=== PATIENT | female | born 1995 | race Hispanic/Latino ===

== ENCOUNTER 2017-12-03 22:11 | Emergency (ER) | payer OTHER, SELFPAY ==
--- OUTSIDE RECORDS SUMMARY | 2017-12-03 22:13 | XMS REPORT | Clinical Summary ---
:1995 Author Organization [facility] Address [address] [place] [address] Care Team Providers Name Role Phone Asked, No Pcp Primary Care Provider Unavailable Allergies Active Allergy Reactions Severity Noted Date Comments Tramadol Other (See Comments) 03/11/2016 headache Acetaminophen-Codeine Shortness Of Breath High 03/11/2016 Current Medications Prescription Sig. Disp. Refills Start Date End Date Status SUMAtriptan (IMITREX) Take 1 tablet (50 9 tablet 0 03/15/2016 Active 50 MG tablet mg total) by mouth once as needed for migraine for up to 20 doses. NEXPLANON 68 mg implant 04/13/2016 Active traZODone (DESYREL) 50 04/13/2016 Active MG tablet keTOROlac (TORadol) 10 Take 1 tablet (10 9 tablet 0 05/10/2017 Active mg tablet mg total) by mouth every 6 (six) hours as needed for moderate pain (do not take with other NSAID) for up to 10 doses. 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 MANAGER Pulse 122 05/10/2017 2:22 PM HIMS MANAGER Temperature 36.4 C (97.5 F) 05/10/2017 2:22 PM HIMS MANAGER Respiratory Rate 17 05/10/2017 2:22 PM HIMS MANAGER Oxygen Saturation 100% 05/10/2017 2:22 PM HIMS MANAGER Inhaled Oxygen Concentration - - Weight - - Height 162.6 cm (5' 4") 05/10/2017 12:20 PM HIMS MANAGER Body Mass Index - - Plan of Treatment Not on file Results Not on fileafter 12/02/2016 Insurance Payer Benefit Plan / Group Subscriber ID Type Phone Address MEDICAID MEDICAID xxxxxxxxx Medicaid [facility] CHOICE [facility] xxxxxxxxx HMO CIGNA CIGNA OPEN xxxxxxxxxxx HMO ACCESS/NETWORK y [phone] [place] [id number]
[2017-12-03 23:48] LABS: Urine Blood TRACE (NEG); Urine Glucose NEGATIVE (NEG); Urine Protein NEGATIVE (NEG); Urine Specific Gravity 1.015 (1.005-1.030); Urine pH 7.5 (5.0-7.0)
[2017-12-04 00:36] LABS: Urine Bacteria <20 /HPF (<20); Urine Culture Reflex Order NOT NEEDED; Urine RBC <5 /HPF (NONE SEEN)
--- NOTE | 2017-12-04 00:41 | ER ---
Nurse's Notes [facility] Name: Carla Duncan Age: 22 yrs Sex: Female : 1995 Arrival Date: 12/03/2017 Time: 22:12 Bed 25 Private MD: Diagnosis: Low back pain;Dysuria Presentation: 12/03 22:35 Presenting complaint: Patient states: that she was told that she had a UTI 2 weeks ago and was given Nitrofurantoin. Continues to have urinary frequency and burning. Transition of care: patient was not received from another setting of care. Onset of symptoms was October 2017. Risk Assessment: Do you want to hurt yourself or someone else?. Initial Sepsis Screen: Does the patient meet any 2 criteria? No. Patient's initial sepsis screen is negative. Does the patient have a suspected source of infection? No. Patient's initial sepsis screen is negative. Care prior to arrival: None. 22:35 Method Of Arrival: Ambulatory fc 22:35 Acuity: VENKATESH 4 Triage Assessment: 22:38 General: Appears uncomfortable, Behavior is calm, cooperative, appropriate for age. fc Pain: Complains of pain in suprapubic area Pain currently is 5 out of 10 on a pain scale. at worst was 10 out of 10 on a pain scale. Quality of pain is described as burning, stinging, Is intermittent. EENT: No deficits noted. Neuro: Level of Consciousness is awake, alert, obeys commands, Oriented to person, place, time, situation. Cardiovascular: No deficits noted. Respiratory: No deficits noted. GI: No deficits noted. : Reports burning with urination, urinary frequency. Derm: Skin is pink, warm \T\ dry. Musculoskeletal: Circulation, motion, and sensation intact. Capillary refill < 3 seconds, Range of motion: intact in all extremities. 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 - Social history:: Smoking status: Patient/guardian denies using tobacco. - Ebola Screening: : Patient negative for fever greater than or equal to 101.5 degrees Fahrenheit, and additional compatible Ebola Virus Disease symptoms Patient denies exposure to infectious person Patient denies travel to an Ebola-affected area in the 21 days before illness onset. - Family history:: not pertinent. - Hospitalizations: : No recent hospitalization is reported. Screenin:32 Abuse screen: Denies threats or abuse. Nutritional screening: No deficits noted. tl3 Tuberculosis screening: No symptoms or risk factors identified. Fall Risk None identified. Assessment: 23:29 General: Appears in no apparent distress. comfortable, well groomed, well developed, tl3 well nourished, Behavior is calm, cooperative, appropriate for age. Pain: Denies pain. Neuro: Level of Consciousness is awake, alert, obeys commands, Oriented to person, place, time, situation, Appropriate for age. Cardiovascular: Heart tones S1 S2 present Patient's skin is warm and dry. Respiratory: Airway is patent Respiratory effort is even, unlabored, Respiratory pattern is regular, symmetrical. GI: No deficits noted. No signs and/or symptoms were reported involving the gastrointestinal system. : Reports incontinence, since Wednesday urinary frequency. : Reports Dx with UTI two weeks ago, did not tolerate side effects of antibiotic and stopped taking it for a few days then restarted it until completed. S/S are now worse. EENT: No deficits noted. No signs and/or symptoms were reported regarding the EENT system. Derm: No deficits noted. No signs and/or symptoms reported regarding the dermatologic system. Musculoskeletal: No deficits noted. No signs and/or symptoms reported regarding the musculoskeletal system. 12/04 00:06 Reassessment: Patient appears in no apparent distress at this time. No changes from tl3 previously documented assessment. Patient and/or family updated on plan of care and expected duration. Pain level reassessed. Patient is alert, oriented x 3, equal unlabored respirations, skin warm/dry/pink. pt has no needs at this time. 00:56 Reassessment: Patient appears in no apparent distress at this time. No changes from tl3 previously documented assessment. Patient and/or family updated on plan of care and expected duration. Pain level reassessed. Patient is alert, oriented x 3, equal unlabored respirations, skin warm/dry/pink. Vital Signs: 12/03 22:38 BP 108 / 78; Pulse 89; Resp 20; Temp 98.0(O); Pulse Ox 100% on R/A; Weight 81.65 kg fc (R); Height 5 ft. 0 in. (152.40 cm) (R); Pain 5/10; 23:33 BP 121 / 50; Pulse 91; Resp 18; Pulse Ox 100% ; tl3 12/04 00:06 BP 144 / 94; Pulse 99; Resp 18; Pulse Ox 100% ; tl3 00:56 BP 108 / 60; Pulse 87; Resp 18; Pulse Ox 98% ; tl3 12/03 22:38 Body Mass Index 35.15 (81.65 kg, 152.40 cm) ED Course: 12/03 22:12 Patient arrived in ED. ds1 22:36 Triage completed. fc 22:37 Arm band placed on Patient placed in waiting room, Patient notified of wait time. fc 23:10 Hal Watters MD is Attending Physician. rn 23:15 Elle Felder RN is Primary Nurse. tl3 23:32 Patient has correct armband on for positive identification. tl3 23:32 No provider procedures requiring assistance completed. Patient did not have IV access tl3 during this emergency room visit. Administered Medications: No medications were administered Outcome: 12/04 00:40 Discharge ordered by . rn 00:57 Patient left the ED. tl3 Signatures: Marnie Reynaga RN RN MccloudIzzy ds1 Hal Watters MD MD rn Lowrey, Tammy, RN RN tl3
--- NOTE | 2017-12-04 00:41 | EDPHYS ---
Physician Documentation [facility] Name: Carla Duncan Age: 22 yrs Sex: Female : 1995 Arrival Date: 12/03/2017 Time: 22:12 Bed 25 Private MD: ED Physician Hal Watters HPI: 12/04 00:38 This 22 yrs old Female presents to ER via Ambulatory with complaints of Back rn Pain, Pain With Urination. 00:38 The patient presents with pain that is acute. The symptoms are located in the low back. rn Onset: The symptoms/episode began/occurred 1 week(s) ago. Associated signs and symptoms: Pertinent positives: dysuria, Pertinent negatives: fever. Severity of symptoms: At their worst the symptoms were mild, in the emergency department the symptoms are unchanged. The patient has experienced a previous episode. Reports low back pain, increased urination, no bleeding or vaginal discharge, no abd pain, reports diagnosed with UTI by her OB, given shot and macrobid, didn't take it as prescribed because made her sick, finally finished it a few days ago.. 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 - Social history:: Smoking status: Patient/guardian denies using tobacco. - Ebola Screening: : Patient negative for fever greater than or equal to 101.5 degrees Fahrenheit, and additional compatible Ebola Virus Disease symptoms Patient denies exposure to infectious person Patient denies travel to an Ebola-affected area in the 21 days before illness onset. - Family history:: not pertinent. - Hospitalizations: : No recent hospitalization is reported. ROS: 12/04 00:38 Constitutional: Negative for fever, chills, and weight loss, Eyes: Negative for injury, rn pain, redness, and discharge, Neck: Negative for injury, pain, and swelling, Cardiovascular: Negative for chest pain, palpitations, and edema, Respiratory: Negative for shortness of breath, cough, wheezing, and pleuritic chest pain, Abdomen/GI: Negative for abdominal pain, nausea, vomiting, diarrhea, and constipation, Back: Negative for injury MS/Extremity: Negative for injury and deformity, Skin: Negative for injury, rash, and discoloration, Neuro: Negative for headache, weakness, numbness, tingling, and seizure. Exam: 00:38 Constitutional: This is a well developed, well nourished patient who is awake, alert, rn and in no acute distress. Abdomen/GI: Soft, non-tender, with normal bowel sounds. No distension or tympany. No guarding or rebound. No evidence of tenderness throughout. Back: No spinal tenderness. No costovertebral tenderness. Full range of motion. Skin: Warm, dry with normal turgor. Normal color with no rashes, no lesions, and no evidence of cellulitis. MS/ Extremity: Pulses equal, no cyanosis. Neurovascular intact. Full, normal range of motion. Equal circumference. Neuro: Awake and alert, GCS 15, oriented to person, place, time, and situation. Cranial nerves II-XII grossly intact. Motor strength 5/5 in all extremities. Sensory grossly intact. Cerebellar exam normal. Normal gait. Vital Signs: 12/03 22:38 BP 108 / 78; Pulse 89; Resp 20; Temp 98.0(O); Pulse Ox 100% on R/A; Weight 81.65 kg fc (R); Height 5 ft. 0 in. (152.40 cm) (R); Pain 5/10; 23:33 BP 121 / 50; Pulse 91; Resp 18; Pulse Ox 100% ; tl3 12/04 00:06 BP 144 / 94; Pulse 99; Resp 18; Pulse Ox 100% ; tl3 00:56 BP 108 / 60; Pulse 87; Resp 18; Pulse Ox 98% ; tl3 12/03 22:38 Body Mass Index 35.15 (81.65 kg, 152.40 cm) fc MDM: 12/03 23:11 Patient medically screened. rn 12/04 00:38 Differential diagnosis: arthritis, UTI, . Data reviewed: vital signs, nurses rn notes, lab test result(s), and as a result, I will discharge patient. Counseling: I had a detailed discussion with the patient and/or guardian regarding: the historical points, exam findings, and any diagnostic results supporting the discharge/admit diagnosis, lab results, the need for outpatient follow up, to return to the emergency department if symptoms worsen or persist or if there are any questions or concerns that arise at home. Special discussion: I discussed with the patient/guardian in detail that at this point there is no indication for admission to the hospital. It is understood, however, that if the symptoms persist or worsen the patient needs to return immediately for re-evaluation. Based on the history and exam findings, there is no indication for further emergent testing or inpatient evaluation. I discussed with the patient/guardian the need to see the OB Gyne specialist for further evaluation of the symptoms. 12/03 23:19 Order name: Urine Microscopic Only; Complete Time: 00:37 rn 12/03 23:27 Order name: Urine Dipstick--Ancillary (enter results); Complete Time: 00:37 rg2 12/03 23:19 Order name: Urine Dipstick-Ancillary (obtain specimen); Complete Time: 23:23 rn 12/03 23:19 Order name: Urine Test (obtain specimen); Complete Time: 23:23 rn 12/03 23:27 Order name: Urine --Ancillary (enter results); Complete Time: 00:37 rg2 Administered Medications: No medications were administered Disposition: 12/04/17 00:40 Discharged to Home. Impression: Low back pain, Dysuria. - Condition is Stable. - Discharge Instructions: Back Pain, Adult, Dysuria, Back Pain in . - Medication Reconciliation Form, Thank You Letter, Antibiotic Education, Prescription Opioid Use form. - Follow up: Private Physician; When: As needed; Reason: Recheck today's complaints, Re-evaluation by your physician. - Problem is an ongoing problem. - Symptoms have improved. Signatures: Dispatcher [employer] EDMS Marnie Reynaga RN RN fc Nieto, Roman, MD MD rn Lowrey, Tammy, RN RN tl3 Corrections: (The following items were deleted from the chart) 00:57 00:40 12/04/2017 00:40 Discharged to Home. Impression: Low back pain; Dysuria. tl3 Condition is Stable. Forms are Medication Reconciliation Form, Thank You Letter, Antibiotic Education, Prescription Opioid Use. Follow up: Private Physician; When: As needed; Reason: Recheck today's complaints, Re-evaluation by your physician. Problem is an ongoing problem. Symptoms have improved. rn
[2017-12-04 01:59] VITALS: TEMP 98
[2017-12-04 02:02] VITALS: BP 108/60; O2SAT 98
== END 2017-12-04 00:57 | disposition home or self-care (01) ==
LOC: ER 22:11
DX: M54.5 Low back pain (principal); R30.0 Dysuria; Z88.6 Allergy status to analgesic agent; Z88.8 Allergy status to other drugs, medicaments and biological substances
CPT/HCPCS: 81003; 81015; 81025; 99281

== ENCOUNTER 2017-12-09 13:04 | Emergency (ER) | payer OTHER ==
--- OUTSIDE RECORDS SUMMARY | 2017-12-09 13:06 | XMS REPORT | Clinical Summary ---
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 Pulse 122 05/10/2017 2:22 PM GAS PUMPING STATION SUPERVISOR Temperature 36.4 C (97.5 F) 05/10/2017 2:22 PM GAS PUMPING STATION SUPERVISOR Respiratory Rate 17 05/10/2017 2:22 PM GAS PUMPING STATION SUPERVISOR Oxygen Saturation 100% 05/10/2017 2:22 PM GAS PUMPING STATION SUPERVISOR Inhaled Oxygen Concentration - - Weight - - Height 162.6 cm (5' 4") 05/10/2017 12:20 PM GAS PUMPING STATION SUPERVISOR Body Mass Index - - Plan of Treatment Not on file Results Not on fileafter 12/08/2016 Insurance Payer Benefit Plan / Group Subscriber ID Type Phone Address MEDICAID MEDICAID xxxxxxxxx Medicaid [facility] Money Dashboard [facility] xxxxxxxxx HMO CIGNA CIGNA OPEN xxxxxxxxxxx HMO ACCESS/NETWORK y [phone] [place] [id number]
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
[2017-12-09 15:34] VITALS: TEMP 98.8
[2017-12-09 15:35] VITALS: O2SAT 100
[2017-12-09 15:36] VITALS: BP 117/71
== END 2017-12-09 15:31 | disposition home or self-care (01) ==
LOC: ER 13:04
DX: S29.012A Strain of muscle and tendon of back wall of thorax, initial encounter (principal); V49.40XA Driver injured in collision with unspecified motor vehicles in traffic accident, initial encounter; Y92.410 Unspecified street and highway as the place of occurrence of the external cause; Z33.1 Pregnant state, incidental
CPT/HCPCS: 71046; 72070; 99284

== ENCOUNTER 2018-01-16 20:47 | Emergency (ER) | payer OTHER ==
--- OUTSIDE RECORDS SUMMARY | 2018-01-16 20:49 | XMS REPORT | Clinical Summary ---
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 Pulse 122 05/10/2017 2:22 PM PLATFORM ATTENDANT Temperature 36.4 C (97.5 F) 05/10/2017 2:22 PM PLATFORM ATTENDANT Respiratory Rate 17 05/10/2017 2:22 PM PLATFORM ATTENDANT Oxygen Saturation 100% 05/10/2017 2:22 PM PLATFORM ATTENDANT Inhaled Oxygen Concentration - - Weight - - Height 162.6 cm (5' 4") 05/10/2017 12:20 PM PLATFORM ATTENDANT Body Mass Index - - Plan of Treatment Not on file Results Not on fileafter 01/15/2017 Insurance Payer Benefit Plan / Group Subscriber ID Type Phone Address MEDICAID MEDICAID xxxxxxxxx Medicaid COMMUNITY HEALTH CHOICE COM [facility] xxxxxxxxx HMO CIGNA CIGNA OPEN xxxxxxxxxxx HMO ACCESS/NETWORK y [phone] [place] [id number]
[2018-01-16 21:43] LABS: Urine Blood 1+ (NEG); Urine Glucose NEGATIVE (NEG); Urine Protein NEGATIVE (NEG); Urine Specific Gravity 1.015 (1.005-1.030); Urine pH 5.5 (5.0-7.0)
[2018-01-16] MEDS ORDERED: NA CHLORIDE 0.9% 1,000 ML ONE (21:54)
[2018-01-16 21:55] LABS: Urine Bacteria <20 /HPF (<20); Urine Culture Reflex Order NOT NEEDED
--- NOTE | 2018-01-16 23:24 | ER ---
Nurse's Notes [facility] Name: Carla Duncan Age: 22 yrs Sex: Female : 1995 Arrival Date: 01/16/2018 Time: 20:52 Bed 30 Private MD: Diagnosis: Other specified related conditions;Abdominal and pelvic pain Presentation: 01/16 21:05 Presenting complaint: Patient states: Lower abdominal cramping with no vaginal aj discharge that started today. Transition of care: patient was not received from another setting of care. Onset of symptoms was January 16, 2018. Risk Assessment: Do you want to hurt yourself or someone else? Patient reports no desire to harm self or others. Initial Sepsis Screen: Does the patient meet any 2 criteria? No. Patient's initial sepsis screen is negative. Does the patient have a suspected source of infection? No. Patient's initial sepsis screen is negative. Care prior to arrival: None. 21:05 Method Of Arrival: Ambulatory aj 21:05 Acuity: VENKATESH 3 aj Triage Assessment: 21:06 General: Appears in no apparent distress. comfortable, Behavior is calm, cooperative, aj appropriate for age. Pain: Complains of pain in right lower quadrant and left lower quadrant. Neuro: Level of Consciousness is awake, alert, obeys commands, Oriented to person, place, time, situation, Appropriate for age. Respiratory: Airway is patent Respiratory effort is even, unlabored, Respiratory pattern is regular, symmetrical. GI: Abdomen is round non-distended. : Reports cramping, lower quadrant(s). Derm: Skin is intact, is healthy with good turgor, Skin is pink, warm \T\ dry. normal. 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 - Social history:: Smoking status: Patient/guardian denies using tobacco. - Ebola Screening: : Patient negative for fever greater than or equal to 101.5 degrees Fahrenheit, and additional compatible Ebola Virus Disease symptoms Patient denies exposure to infectious person Patient denies travel to an Ebola-affected area in the 21 days before illness onset No symptoms or risks identified at this time. Screenin:41 Abuse screen: Denies threats or abuse. Denies injuries from another. Nutritional mg2 screening: No deficits noted. Tuberculosis screening: No symptoms or risk factors identified. Fall Risk None identified. Assessment: 21:39 General: Appears in no apparent distress. comfortable, Behavior is calm, cooperative. mg2 Pain: Complains of pain in abdomen and left lower quadrant and right lower quadrant Pain does not radiate. Pain currently is 4 out of 10 on a pain scale. Quality of pain is described as crampy, Pain began gradually, 1 day ago. Is intermittent, Alleviated by rest, Aggravated by increased activity. Neuro: Level of Consciousness is awake, alert, obeys commands, Oriented to person, place, time, situation. Cardiovascular: Capillary refill < 3 seconds Patient's skin is warm and dry. Respiratory: Airway is patent Respiratory effort is even, unlabored, Respiratory pattern is regular, symmetrical. GI: Reports lower abdominal pain, cramping. : Reports cramping, in bilateral. EENT: No signs and/or symptoms were reported regarding the EENT system. Derm: Skin is intact, Skin is pink, warm \T\ dry. normal. Musculoskeletal: Circulation, motion, and sensation intact. 22:42 Reassessment: Patient appears in no apparent distress at this time. Patient and/or mg2 family updated on plan of care and expected duration. Pain level reassessed. Patient is alert, oriented x 3, equal unlabored respirations, skin warm/dry/pink. 23:06 GI: Bowel sounds present X 4 quads. Abd is non tender X 4 quads. mg2 Vital Signs: 21:06 BP 124 / 78; Pulse 95; Resp 17; Temp 98.0; Pulse Ox 100% on R/A; Weight 79.38 kg; aj Height 5 ft. 0 in. (152.40 cm); 21:44 BP 123 / 70; Pulse 94; Resp 18; Pulse Ox 100% on R/A; Pain 3/10; mg2 22:42 BP 129 / 75; Pulse 90; Resp 18; Pulse Ox 100% on R/A; Pain 2/10; mg2 21:06 Body Mass Index 34.18 (79.38 kg, 152.40 cm) ED Course: 20:52 Patient arrived in ED. do 21:06 Triage completed. aj 21:06 Arm band placed on left wrist. Patient placed in an exam room. aj 21:31 Austen Perez, RN is Primary Nurse. mg2 21:33 Austin Gaona MD is Attending Physician. 21:42 Patient has correct armband on for positive identification. Placed in gown. Bed in low mg2 position. Side rails up X 1. Door closed. Warm blanket given. 21:58 Inserted saline lock: 22 gauge in right antecubital area, using aseptic technique. mg2 22:27 US OB Complete In Process Unspecified. EDMS 22:27 Ultrasound completed. Patient tolerated well. sg3 23:07 No provider procedures requiring assistance completed. mg2 23:33 IV discontinued, intact, bleeding controlled, No redness/swelling at site. Pressure mg2 dressing applied. Administered Medications: 21:58 Drug: NS 0.9% 1000 ml Route: IV; Rate: 1 bolus; Site: right antecubital; mg2 23:06 Follow up: Response: No adverse reaction; IV Status: Completed infusion mg2 Outcome: 23:23 Discharge ordered by . gs 23:33 Discharged to home ambulatory. mg2 23:33 Condition: stable 23:33 Discharge instructions given to patient, Instructed on discharge instructions, follow up and referral plans. Demonstrated understanding of instructions, follow-up care. 23:34 Patient left the ED. mg2 Signatures: Dispatcher [employer] Leigh Ann Kim RN RN Jasmyne Cardona Gregory, MD MD Carla Dunne 3 Austen Perez, JUDI RN mg2
--- NOTE | 2018-01-16 23:24 | EDPHYS ---
Physician Documentation [facility] Name: Carla Duncan Age: 22 yrs Sex: Female : 1995 Arrival Date: 01/16/2018 Time: 20:52 Bed 30 Private MD: ED Physician Austin Gaona HPI: 01/16 23:17 This 22 yrs old Female presents to ER via Ambulatory with complaints of gs Abdominal Pain, 13 Weeks. 23:17 The patient presents to the emergency department with abdominal pain, of the suprapubic gs area, that started this morning, described as crampy. The estimated gestational age is 12 weeks. course: care: at a clinic, Leakage of Fluid: none appreciated, Ultrasound: the patient had an ultrasound, which was normal. Previous pregnancies: in previous pregnancies patient has had no complications. Associated signs and symptoms: Pertinent negatives: fever, vomiting. The patient has experienced similar episodes in the past, a few times. 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 - Social history:: Smoking status: Patient/guardian denies using tobacco. - Ebola Screening: : Patient negative for fever greater than or equal to 101.5 degrees Fahrenheit, and additional compatible Ebola Virus Disease symptoms Patient denies exposure to infectious person Patient denies travel to an Ebola-affected area in the 21 days before illness onset No symptoms or risks identified at this time. ROS: 23:17 All other systems are negative. gs 23:24 : Negative for vaginal bleeding, vaginal discharge, vaginal itching. gs Exam: 23:17 Head/Face: Normocephalic, atraumatic. Eyes: Pupils equal round and reactive to light, gs extra-ocular motions intact. Lids and lashes normal. Conjunctiva and sclera are non-icteric and not injected. Cornea within normal limits. Periorbital areas with no swelling, redness, or edema. ENT: Nares patent. No nasal discharge, no septal abnormalities noted. Tympanic membranes are normal and external auditory canals are clear. Oropharynx with no redness, swelling, or masses, exudates, or evidence of obstruction, uvula midline. Mucous membranes moist. Neck: Trachea midline, no thyromegaly or masses palpated, and no cervical lymphadenopathy. Supple, full range of motion without nuchal rigidity, or vertebral point tenderness. No Meningismus. Chest/axilla: Normal chest wall appearance and motion. Nontender with no deformity. No lesions are appreciated. Cardiovascular: Regular rate and rhythm with a normal S1 and S2. No gallops, murmurs, or rubs. Normal PMI, no JVD. No pulse deficits. Respiratory: Lungs have equal breath sounds bilaterally, clear to auscultation and percussion. No rales, rhonchi or wheezes noted. No increased work of breathing, no retractions or nasal flaring. Back: No spinal tenderness. No costovertebral tenderness. Full range of motion. Skin: Warm, dry with normal turgor. Normal color with no rashes, no lesions, and no evidence of cellulitis. MS/ Extremity: Pulses equal, no cyanosis. Neurovascular intact. Full, normal range of motion. Neuro: Awake and alert, GCS 15, oriented to person, place, time, and situation. Cranial nerves II-XII grossly intact. Motor strength 5/5 in all extremities. Sensory grossly intact. Cerebellar exam normal. Normal gait. 23:17 Constitutional: The patient appears alert, awake. 23:17 Abdomen/GI: Inspection: gravid appearance, is noted, Palpation: nontender, in all quadrants. Vital Signs: 21:06 BP 124 / 78; Pulse 95; Resp 17; Temp 98.0; Pulse Ox 100% on R/A; Weight 79.38 kg; aj Height 5 ft. 0 in. (152.40 cm); 21:44 BP 123 / 70; Pulse 94; Resp 18; Pulse Ox 100% on R/A; Pain 3/10; mg2 22:42 BP 129 / 75; Pulse 90; Resp 18; Pulse Ox 100% on R/A; Pain 2/10; mg2 21:06 Body Mass Index 34.18 (79.38 kg, 152.40 cm) aj MDM: 21:49 Patient medically screened. gs 23:17 Differential diagnosis: Javid inman, threatened Ab, inevitable Ab. Data reviewed: vital signs, nurses notes. Response to treatment: the patient's symptoms have markedly improved after treatment, the patient is now symptom free, and as a result, I will discharge patient. 01/16 21:39 Order name: Urine Microscopic Only; Complete Time: 22:09 01/16 21:41 Order name: Urine Dipstick--Ancillary (enter results); Complete Time: 21:48 [facility] 01/16 21:39 Order name: Urine Test (obtain specimen); Complete Time: 21:46 01/16 21:41 Order name: Urine --Ancillary (enter results); Complete Time: 21:48 [facility] 01/16 21:49 Order name: US OB Complete 01/16 21:39 Order name: Urine Dipstick-Ancillary (obtain specimen); Complete Time: 21:46 Administered Medications: 21:58 Drug: NS 0.9% 1000 ml Route: IV; Rate: 1 bolus; Site: right antecubital; mg2 23:06 Follow up: Response: No adverse reaction; IV Status: Completed infusion mg2 Disposition: 01/16/18 23:23 Discharged to Home. Impression: Other specified related conditions, Abdominal and pelvic pain. - Condition is Stable. - Discharge Instructions: Abdominal Pain, Adult, [id number], Abdominal Pain During , [id number]. - Medication Reconciliation Form, Thank You Letter, Antibiotic Education, Prescription Opioid Use form. - Follow up: Private Physician; When: 1 - 2 days; Reason: Re-evaluation by your physician. - Problem is new. - Symptoms are resolved. Signatures: Dispatcher [employer] EDLeigh Ann Mason RN RN Austin Aggarwal MD MD Austen Perez RN RN mg2 Corrections: (The following items were deleted from the chart) 23:34 23:23 01/16/2018 23:23 Discharged to Home. Impression: Other specified mg2 related conditions; Abdominal and pelvic pain. Condition is Stable. Forms are Medication Reconciliation Form, Thank You Letter, Antibiotic Education, Prescription Opioid Use. Follow up: Private Physician; When: 1 - 2 days; Reason: Re-evaluation by your physician. Problem is new. Symptoms are resolved.
[2018-01-16 23:37] VITALS: TEMP 98; O2SAT 100
[2018-01-16 23:40] VITALS: BP 129/75
--- NOTE | 2018-01-17 08:50 | RAD REPORT ---
EXAM DESCRIPTION: US - OB Complete - 01/16/2018 10:29 pm CLINICAL HISTORY: ABD CRAMPING, age. COMPARISON: No relevant comparisons FINDINGS: A single cephalic presenting gestation is identified. Heart rate normal. The visualized intracranial contents appear unremarkable. spine is suboptimally visualized due to position. A fluid-filled stomach is not seen, still considered a normal finding at thi s gestational age. kidneys, four-chamber heart, three-vessel cord and urinary bladder are all poorly visualized/assessed due to early gestational age. Anterior abdominal wall of the fetus ap pears intact. measurements are as follows: BPD:2.3 Centimeters 13 weeks 5 days HC:8.2 Centimeters 13 weeks 4 days AC:6.9 Centimeters 13 weeks 4 days HL:1.3 Centimeters 13 weeks 5 days FL:1.2 Centimeters 13 weeks 4 days The estimated gestational age (EGA) is 13 weeks 4 days with an ANDREZ of07/20/2018. The placenta is grade 0, posterior in location. Placenta previa is suspected. The amniotic fluid volume is normal. The maternal adnexa show no worrisome findings. IMPRESSION: 1. Single, cephalic gestation with an EGA of 13 weeks 4 days and an ANDREZ of the 9. 2. anatomic assessment is limited due to early gestational as detailed above. Follow-up anatomi c survey mid second trimester may be considered. 3. Grade 0, posterior placenta. Mild placenta previa noted. This may also be reassessed during the mi d second trimester ultrasound. 4. Amniotic fluid volume is normal.
== END 2018-01-16 23:34 | disposition home or self-care (01) ==
LOC: ER 20:47
DX: R10.2 Pelvic and perineal pain (principal); Z3A.12 12 weeks gestation of pregnancy; Z88.5 Allergy status to narcotic agent; Z88.6 Allergy status to analgesic agent; Z88.8 Allergy status to other drugs, medicaments and biological substances
CPT/HCPCS: 76805; 81003; 81015; 81025; 96360; 99283; J7030

== ENCOUNTER 2018-04-13 16:18 | Emergency (ER) | payer OTHER ==
--- OUTSIDE RECORDS SUMMARY | 2018-04-13 16:23 | XMS REPORT ---
:1995 Author [facility] Address [address] [place] [address] Care Team Providers Name Role Phone Unavailable Unavailable Unavailable Payers Payer Name Policy Type Policy Number Effective Date Expiration Date Problems This patient has no known problems. Allergies, Adverse Reactions, Alerts Allergy Allergy Status Severity Reaction(s) Onset Inactive Treating Comments Name Type Date Date Clinician No Known DA Active U 2013-08 Allergies -14 00:00:0 0 Medications This patient has no known medications.
--- OUTSIDE RECORDS SUMMARY | 2018-04-13 16:23 | XMS REPORT | Clinical Summary ---
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 Temperature 36.4 C (97.5 F) 05/10/2017 2:22 PM 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 Respiratory Rate 17 05/10/2017 2:22 PM 

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
[2018-04-13 18:05] VITALS: TEMP 97.9; O2SAT 100
[2018-04-13 18:06] VITALS: BP 103/55
[2018-04-13 18:09] LABS: Urine Blood NEGATIVE (NEG); Urine Glucose NEGATIVE (NEG); Urine Protein NEGATIVE (NEG); Urine pH 7.5 (5.0-7.0)
== END 2018-04-13 17:50 | disposition home or self-care (01) ==
LOC: ER 16:18
DX: M25.551 Pain in right hip (principal); Z88.5 Allergy status to narcotic agent
CPT/HCPCS: 81003; 81025; 99283

== ENCOUNTER 2018-06-27 09:51 | Emergency (ER) | payer OTHER ==
--- OUTSIDE RECORDS SUMMARY | 2018-06-27 09:53 | XMS REPORT ---
:1995 [facility] Address [address] [place] [address] Care Team Providers Name Role Phone Unavailable [...]
--- OUTSIDE RECORDS SUMMARY | 2018-06-27 09:53 | XMS REPORT | Clinical Summary ---
:1995 Author Organization [facility] Address [address] [place] [address] Care Team Providers Name Role Phone Asked, No Pcp Primary Care Provider Unavailable Allergies Active Allergy Reactions Severity Noted Date Comments Tramadol Other (See Comments) 03/11/2016 headache Acetaminophen-Codeine Shortness Of Breath High 03/11/2016 Medications Medication Sig Dispensed Refills Start Date End Date Status SUMAtriptan (IMITREX) Take 1 tablet (50 9 tablet 0 03/15/2016 Active 50 MG tablet mg total) by mouth once as needed for migraine for up to 20 doses. NEXPLANON 68 mg 0 04/13/2016 Active implant traZODone (DESYREL) 50 0 04/13/2016 Active MG tablet keTOROlac (TORadol) 10 Take 1 tablet (10 9 tablet 0 05/10/2017 Active mg tablet mg total) by mouth every 6 (six) hours as needed for moderate pain (do not take with other NSAID) for up to 10 doses. Active Problems No known active problems Social History Tobacco Use Types Packs/Day Years Used Date Never Smoker Alcohol Use Drinks/Week oz/Week Comments Yes social, weekly Sex Assigned at Date Recorded Not on file Job Start Date Occupation Industry Not on file Not on file Not on file Travel History Travel Start Travel End No recent travel history available. Last Filed Vital Signs Not on file Plan of Treatment Not on file Results Not on fileafter 06/26/2017 Insurance Payer Benefit Plan / Group Subscriber ID Type Phone Address MEDICAID MEDICAID xxxxxxxxx Medicaid [facility] [employer] [facility] xxxxxxxxx HMO CIGNA CIGNA OPEN xxxxxxxxxxx HMO ACCESS/NETWORK Advance Directives Patient has advance care planning documents on file. For more information, please contact:Ravi Delong[address] [place] [address]
--- NOTE | 2018-06-27 11:36 | ER ---
Nurse's Notes [facility] Name: Carla Duncan Age: 22 yrs Sex: Female : 1995 Arrival Date: 06/27/2018 Time: 09:54 Bed 16 Private MD: Diagnosis: Acute pharyngitis Presentation: 06/27 09:57 Presenting complaint: Patient states: i have sore throat and cough that started last hj night, my son is sick with it too for days; reports fever; reports body aches; reports 36 weeks ; reports abd cramps;. Transition of care: patient was not received from another setting of care. Onset of symptoms was June 27, 2018. Risk Assessment: Do you want to hurt yourself or someone else? Patient reports no desire to harm self or others. Initial Sepsis Screen: Does the patient meet any 2 criteria? No. Patient's initial sepsis screen is negative. Does the patient have a suspected source of infection? No. Patient's initial sepsis screen is negative. Care prior to arrival: None. 09:57 Method Of Arrival: Ambulatory 09:57 Acuity: VENKATESH 4 hj Triage Assessment: 10:00 General: Appears in no apparent distress. uncomfortable, Behavior is calm, cooperative, hj appropriate for age. Pain: Complains of pain in throat. EENT: Reports pain in throat. 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 - Social history:: Smoking status: Patient/guardian denies using tobacco, Patient/guardian denies using alcohol. - Ebola Screening: : Patient negative for fever greater than or equal to 101.5 degrees Fahrenheit, and additional compatible Ebola Virus Disease symptoms Patient denies exposure to infectious person Patient denies travel to an Ebola-affected area in the 21 days before illness onset. Screenin:00 Abuse screen: Denies threats or abuse. Denies injuries from another. Nutritional hj screening: No deficits noted. Tuberculosis screening: No symptoms or risk factors identified. Fall Risk None identified. Assessment: 10:00 Respiratory: Airway is patent Respiratory effort is even, unlabored, Respiratory hj pattern is regular, Breath sounds are clear. EENT: Throat. 10:10 General: Appears in no apparent distress. uncomfortable, Behavior is calm, cooperative, jl7 appropriate for age. Pain: Complains of pain in throat. Neuro: Level of Consciousness is awake, alert, obeys commands, Oriented to person, place, time, situation. Cardiovascular: Patient's skin is warm and dry. Respiratory: Airway is patent Respiratory effort is even, unlabored, Respiratory pattern is regular, symmetrical, Breath sounds are clear bilaterally. EENT: Throat is clear is pink. Derm: Skin is pink, warm \T\ dry. 10:20 Reassessment: Pt to L\T\D for assessment. jl7 Vital Signs: 10:01 Pulse 99; Resp 18; Temp 97.6(TE); Pulse Ox 98% on R/A; Weight 91.63 kg; Height 5 ft. 0 hj in. (152.40 cm); Pain 6/10; 10:01 Body Mass Index 39.45 (91.63 kg, 152.40 cm) ED Course: 09:54 Patient arrived in ED. mr 09:59 Triage completed. hj 10:01 Arm band placed on right wrist. hj 10:03 Francie Maynard FNP-C is PHCP. kb 10:03 Jose aLws MD is Attending Physician. kb 10:03 Strep Sent. hj 10:03 Flu Sent. hj 10:06 Kristina Jose, JUDI is Primary Nurse. jl7 10:10 Patient has correct armband on for positive identification. Bed in low position. Call jl7 light in reach. Side rails up X 1. 11:47 No provider procedures requiring assistance completed. Patient did not have IV access jl7 during this emergency room visit. Administered Medications: No medications were administered Outcome: 11:36 Discharge ordered by . kb 11:47 Discharged to home Pt discharged from L\T\D, did not return to ED jl7 11:47 unknown 11:47 Discharge instructions given to Pt discharged from L\T\D 11:48 Patient left the ED. jl7 Signatures: Francie Maynard FNP-C FNP-Kathryn Vásquez mr JemalNaveen, RN RN hj Kristina Jose RN RN jl7 Corrections: (The following items were deleted from the chart) 10:00 09:57 Presenting complaint: Patient states: i have sore throat and cough that started hj last night, my son is sick with it too for days; reports fever; reports body aches; hj
--- NOTE | 2018-06-27 11:36 | EDPHYS ---
Physician Documentation [facility] Name: Carla Duncan Age: 22 yrs Sex: Female : 1995 Arrival Date: 06/27/2018 Time: 09:54 Bed 16 Private MD: ED Physician Jose Laws HPI: 06/27 10:08 This 22 yrs old Female presents to ER via Ambulatory with complaints of Sore kb Throat, Cough. 10:08 The patient presents with sore throat. The patient describes throat pain as constant. kb Onset: The symptoms/episode began/occurred yesterday. Severity of symptoms: At their worst the symptoms were moderate, in the emergency department the symptoms are unchanged. Modifying factors: The symptoms are alleviated by nothing, the symptoms are aggravated by swallowing, Patient's oral intake status: good Denies contact with similarly ill indivduals. Associated signs and symptoms: Pertinent positives: chills, earache, Sore throat. The patient has not experienced similar symptoms in the past, but family has similar symptoms, spouse, son. The patient has not recently seen a physician. Pt states her son was diagnosed with strep 2 days ago and she developed sore throat and left ear pain yesterday. States she has also had abd cramping and she is 37 weeks . 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 - Social history:: Smoking status: Patient/guardian denies using tobacco, Patient/guardian denies using alcohol. - Ebola Screening: : Patient negative for fever greater than or equal to 101.5 degrees Fahrenheit, and additional compatible Ebola Virus Disease symptoms Patient denies exposure to infectious person Patient denies travel to an Ebola-affected area in the 21 days before illness onset. ROS: 10:08 Cardiovascular: Negative for chest pain, palpitations, and edema, Respiratory: Negative kb for shortness of breath, cough, wheezing, and pleuritic chest pain, Back: Negative for injury and pain, : Negative for injury, bleeding, discharge, and swelling, MS/Extremity: Negative for injury and deformity, Skin: Negative for injury, rash, and discoloration, Neuro: Negative for headache, weakness, numbness, tingling, and seizure. 10:08 Constitutional: Positive for chills, Negative for body aches, fatigue, fever, malaise, poor PO intake, weight loss. 10:08 ENT: Positive for ear pain, sore throat. 10:08 Abdomen/GI: Positive for abdominal cramps. Exam: 10:08 Constitutional: This is a well developed, well nourished patient who is awake, alert, kb and in no acute distress. Head/Face: Normocephalic, atraumatic. ENT: Nares patent. No nasal discharge, no septal abnormalities noted. Tympanic membranes are normal and external auditory canals are clear. Oropharynx with no redness, swelling, or masses, exudates, or evidence of obstruction, uvula midline. Mucous membranes moist. Neck: Trachea midline, no thyromegaly or masses palpated, and no cervical lymphadenopathy. Supple, full range of motion without nuchal rigidity, or vertebral point tenderness. No Meningismus. Chest/axilla: Normal chest wall appearance and motion. Nontender with no deformity. No lesions are appreciated. Cardiovascular: Regular rate and rhythm with a normal S1 and S2. No gallops, murmurs, or rubs. Normal PMI, no JVD. No pulse deficits. Respiratory: Lungs have equal breath sounds bilaterally, clear to auscultation and percussion. No rales, rhonchi or wheezes noted. No increased work of breathing, no retractions or nasal flaring. Abdomen/GI: Soft, non-tender, with normal bowel sounds. No distension or tympany. No guarding or rebound. No evidence of tenderness throughout. Skin: Warm, dry with normal turgor. Normal color with no rashes, no lesions, and no evidence of cellulitis. MS/ Extremity: Pulses equal, no cyanosis. Neurovascular intact. Full, normal range of motion. Neuro: Awake and alert, GCS 15, oriented to person, place, time, and situation. Cranial nerves II-XII grossly intact. Motor strength 5/5 in all extremities. Sensory grossly intact. Cerebellar exam normal. Normal gait. Vital Signs: 10:01 Pulse 99; Resp 18; Temp 97.6(TE); Pulse Ox 98% on R/A; Weight 91.63 kg; Height 5 ft. 0 hj in. (152.40 cm); Pain 6/10; 10:01 Body Mass Index 39.45 (91.63 kg, 152.40 cm) MDM: 10:03 Patient medically screened. 10:07 Data reviewed: vital signs, nurses notes. Data interpreted: Pulse oximetry: on room air kb is 98 %. Interpretation: normal. 11:31 ED course: Pt was swabbed in triage and sent to \T\D for evaluation. Pt is going [facility] from [facility] with regular contractions every 3-6 minutes. Pt's OB is in [place]. 06/27 10:02 Order name: Flu; Complete Time: 10:41 06/27 10:02 Order name: Strep; Complete Time: 10:24 06/27 10:24 Order name: Throat Culture [facility] 06/27 10:41 Order name: Urine Dipstick-Ancillary (obtain specimen) Administered Medications: No medications were administered Disposition: 06/27/18 11:36 Discharged to Home. Impression: Acute pharyngitis. - Condition is Stable. - Discharge Instructions: Pharyngitis, [id number]. - Medication Reconciliation Form, Thank You Letter, Antibiotic Education, Prescription Opioid Use form. - Follow up: Emergency Department; When: As needed; Reason: Worsening of condition. Follow up: Private Physician; When: 2 - 3 days; Reason: Recheck today's complaints, Continuance of care, Re-evaluation by your physician. Addendum: 06/29/2018 08:07 Co-signature as Attending Physician, Jose Laws MD I agree with the assessment and k dr plan of care. Signatures: Dispatcher [employer] EDNE Francie Maynard, TARGET SETTER-C TARGET SETTER-CkJose Lares MD MD [facility] Naveen Joaquin, RN RN Kristina Hernandez RN RN jl7 Corrections: (The following items were deleted from the chart) 06/27 11:48 11:36 06/27/2018 11:36 Discharged to Home. Impression: Acute pharyngitis. Condition is jl7 Stable. Forms are Medication Reconciliation Form, Thank You Letter, Antibiotic Education, Prescription Opioid Use. Follow up: Emergency Department; When: As needed; Reason: Worsening of condition. Follow up: Private Physician; When: 2 - 3 days; Reason: Recheck today's complaints, Continuance of care, Re-evaluation by your physician. kb
[2018-06-27 11:58] VITALS: TEMP 97.6; O2SAT 98
== END 2018-06-27 11:48 | disposition home or self-care (01) ==
LOC: ER 09:51
DX: J02.9 Acute pharyngitis, unspecified (principal); Z3A.37 37 weeks gestation of pregnancy; Z88.5 Allergy status to narcotic agent; Z88.6 Allergy status to analgesic agent; Z88.8 Allergy status to other drugs, medicaments and biological substances
CPT/HCPCS: 87070; 87081; 87804; 99282

== ENCOUNTER 2018-09-06 17:28 | Emergency (ER) | payer OTHER ==
--- OUTSIDE RECORDS SUMMARY | 2018-09-06 17:30 | XMS REPORT ---
:1995 [facility] Address [address] [place] [address] Care Team Providers Name Role Phone Unavailable Unavailable Unavailable Payers Payer Name Policy Type Policy Number Effective Date Expiration Date Problems This patient has no known problems. Allergies, Adverse Reactions, Alerts Allergy Allergy Status Severity Reaction(s) Onset Inactive Treating Comments Name Type Date Date Clinician morphine DA Active 2018-06 00:00:0 0 codeine DA Active [place] 2018-06 00:00:0 0 tramadol DA Active [place] 2018-05 00:00:0 0 No Known DA Active U 2013-08 Allergies -14 00:00:0 0 Medications This patient has no known medications. Results Test Description Test Time Test Comments Text Results Atomic Results Result Comments CBC W/AUTO DIFF 2018-07-17 07:27:00 Test Item Value Reference Range Comments WHITE BLOOD CELL (test code=WBC) 12.1 K/mm3 6.6-12.1 RED BLOOD CELL (test code=RBC) 3.51 M/mm3 3.45-5.01 HEMOGLOBIN (test code=HGB) 9.6 g/dL 10.7-13.9 HEMATOCRIT (test code=HCT) 30.6 % 32.1-42.1 MEAN CELL VOLUME (test code=MCV) 87 fL 84.1-94.8 MEAN CELL HGB (test code=MCH) 27.4 pg 27-35 MEAN CELL HGB CONCETRATION (test code=MCHC) 31.4 gm/dL 32.2-34.1 RED CELL DISTRIBUTION WIDTH (test code=RDW) 15.7 % 12.4-16.5 PLATELET COUNT (test code=PLT) 261 K/mm3 133-385 IMMATURE PLATELET FRACTION (test code=IPF) 0.0 % 0.0-10.8 MEAN PLATELET VOLUME (test code=MPV) 10.4 fl 9.1-12.7 NEUTROPHIL % (test code=NT%) 65.2 % 56.5-79.4 LYMPHOCYTE % (test code=LY%) 26.9 % 14.3-34.3 MONOCYTE % (test code=MO%) 6.0 % 5.1-10.4 EOSINOPHIL % (test code=EO%) 1.0 % 0.1-3.0 BASOPHIL % (test code=BA%) 0.2 % 0.1-1.0 NEUTROPHIL # (test code=NT#) 7.9 K/mm3 LYMPHOCYTE # (test code=LY#) 3.3 K/mm3 MONOCYTE # (test code=MO#) 0.7 K/mm3 EOSINOPHIL # (test code=EO#) 0.12 K/mm3 BASOPHIL # (test code=BA#) 0.0 K/mm3 RBC MORPHOLOGY REQUIRED (test code=RBCM) NORMAL NORMAL PLATELET MORPHOLOGY REQUIRED (test code=PLTMR) NORMAL NORMAL AG HEPATITIS B [id number] 04:15:00 Test Item Value Reference Range Comments AG HEPATITIS B SURFACE (test code=HBSAG) NONREACTIVE NONREACTIVE AB HEPATITIS C [id number] 04:15:00 Test Item Value Reference Range Comments AB HEPATITIS C (test code=HCVAB) NONREACTIVE NONREACTIVE SIGNAL TO CUTOFF (test code=CUTOFF) 0.13 <0.80 RUBELLA [id number] 04:15:00 Test Item Value Reference Range Comments RUBELLA SCREEN (test 70.2 IUnit/ml Results >10.0IUnits/ml are code=RUBSC) considered positive inaccordance with the CLSI guidelines and based on the WHO International Standard for Anti-Rubella serum as anindicator of immune status and a breakpoint to detect mostseropositive persons. AB [id number] 04:15:00 Test Item Value Reference Range Comments AB TREPONEMA (test code=TREPAB) NONREACTIVE NONREACTIVE AG HEPATITIS B [id number] 04:00:00 Test Item Value Reference Range Comments AG HEPATITIS B SURFACE (test code=HBSAG) NONREACTIVE NONREACTIVE AB HEPATITIS C [id number] 04:00:00 Test Item Value Reference Range Comments AB HEPATITIS C (test code=HCVAB) NONREACTIVE SIGNAL TO CUTOFF (test code=CUTOFF) <0.80 RUBELLA [id number] 04:00:00 Test Item Value Reference Range Comments RUBELLA SCREEN (test 70.2 IUnit/ml Results >10.0IUnits/ml are code=RUBSC) considered positive inaccordance with the CLSI guidelines and based on the WHO International Standard for Anti-Rubella serum as anindicator of immune status and a breakpoint to detect mostseropositive persons. AB [id number] 04:00:00 Test Item Value Reference Range Comments AB TREPONEMA (test code=TREPAB) NONREACTIVE NONREACTIVE CBC W/AUTO [id number] 00:36:00 Test Item Value Reference Range Comments WHITE BLOOD CELL (test code=WBC) 11.2 K/mm3 6.6-12.1 RED BLOOD CELL (test code=RBC) 4.22 M/mm3 3.45-5.01 HEMOGLOBIN (test code=HGB) 11.6 g/dL 10.7-13.9 HEMATOCRIT (test code=HCT) 35.9 % 32.1-42.1 MEAN CELL VOLUME (test code=MCV) 85 fL 84.1-94.8 MEAN CELL HGB (test code=MCH) 27.5 pg 27-35 MEAN CELL HGB CONCETRATION (test code=MCHC) 32.3 gm/dL 32.2-34.1 RED CELL DISTRIBUTION WIDTH (test code=RDW) 14.8 % 12.4-16.5 PLATELET COUNT (test code=PLT) 335 K/mm3 133-385 IMMATURE PLATELET FRACTION (test code=IPF) 0.0 % 0.0-10.8 MEAN PLATELET VOLUME (test code=MPV) 10.5 fl 9.1-12.7 NEUTROPHIL % (test code=NT%) 63.3 % 56.5-79.4 LYMPHOCYTE % (test code=LY%) 27.0 % 14.3-34.3 MONOCYTE % (test code=MO%) 7.4 % 5.1-10.4 EOSINOPHIL % (test code=EO%) 1.3 % 0.1-3.0 BASOPHIL % (test code=BA%) 0.4 % 0.1-1.0 NEUTROPHIL # (test code=NT#) 7.1 K/mm3 LYMPHOCYTE # (test code=LY#) 3.0 K/mm3 MONOCYTE # (test code=MO#) 0.8 K/mm3 EOSINOPHIL # (test code=EO#) 0.15 K/mm3 BASOPHIL # (test code=BA#) 0.0 K/mm3 RBC MORPHOLOGY REQUIRED (test code=RBCM) NORMAL NORMAL PLATELET MORPHOLOGY REQUIRED (test code=PLTMR) NORMAL NORMAL
--- OUTSIDE RECORDS SUMMARY | 2018-09-06 17:30 | XMS REPORT | Clinical Summary ---
:1995 Author Organization [facility] Address [address] [place] [address] Care Team Providers Name Role Phone Asked, [...] Not on file Results Not on fileafter 09/05/2017 Insurance Payer Benefit Plan / Group Subscriber ID Type Phone Address MEDICAID MEDICAID xxxxxxxxx Medicaid [employer] [facility] xxxxxxxxx HMO CIGNA CIGNA OPEN xxxxxxxxxxx HMO ACCESS/NETWORK Advance Directives Patient has advance care planning documents on file. For more information, please contact:Ravi Delong[address] [place] [address]
--- NOTE | 2018-09-06 19:23 | EDPHYS ---
Physician Documentation [facility] Name: Carla Duncan Age: 22 yrs Sex: Female : 1995 Arrival Date: 09/06/2018 Time: 17:30 Bed 11 Private MD: ED Physician April Alexander HPI: 09/06 19:20 This 22 yrs old Female presents to ER via Ambulatory with complaints of Breast ma2 Problem. 19:20 nipples burning . Onset: The symptoms/episode began/occurred gradually, 3 day(s) ago. ma2 Severity of symptoms: At their worst the symptoms were mild in the emergency department the symptoms are unchanged. The patient has not experienced similar symptoms in the past. 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 - Social history:: Smoking status: Patient/guardian denies using tobacco, Patient/guardian denies using alcohol, street drugs, The patient lives with family. - Ebola Screening: : No symptoms or risks identified at this time. - Family history:: not pertinent. ROS: 19:20 Constitutional: Negative for fever, chills, and weight loss, ENT: Negative for injury, ma2 pain, and discharge, Neck: Negative for injury, pain, and swelling, Cardiovascular: Negative for chest pain, palpitations, and edema, Respiratory: Negative for shortness of breath, cough, wheezing, and pleuritic chest pain, Abdomen/GI: Negative for abdominal pain, nausea, diarrhea, and constipation, Back: Negative for injury and pain, MS/Extremity: Negative for injury and deformity, Skin: Negative for injury, rash, and discoloration, Endocrine: Negative for neck swelling, polydipsia, polyuria, polyphagia, and marked weight changes. 19:20 All other systems are negative. Exam: 19:20 Constitutional: This is a well developed, well nourished patient who is awake, alert, ma2 and in no acute distress. Neck: Trachea midline, no thyromegaly or masses palpated, and no cervical lymphadenopathy. Supple, full range of motion without nuchal rigidity, or vertebral point tenderness. No Meningismus. Chest/axilla: Normal chest wall appearance and motion. Nontender with no deformity. No lesions are appreciated. Cardiovascular: Regular rate and rhythm with a normal S1 and S2. No gallops, murmurs, or rubs. Normal PMI, no JVD. No pulse deficits. Respiratory: Lungs have equal breath sounds bilaterally, clear to auscultation and percussion. No rales, rhonchi or wheezes noted. No increased work of breathing, no retractions or nasal flaring. Abdomen/GI: Soft, non-tender, with normal bowel sounds. No distension or tympany. No guarding or rebound. No evidence of tenderness throughout. Skin: Warm, dry with normal turgor. Normal color with no rashes, no lesions, and no evidence of cellulitis. MS/ Extremity: Pulses equal, no cyanosis. Neurovascular intact. Full, normal range of motion. Vital Signs: 17:41 BP 111 / 58; Pulse 82; Resp 16; Temp 98.2; Pulse Ox 100% on R/A; Pain 8/10; hb MDM: 17:49 Patient medically screened. ma2 19:20 Differential Diagnosis breast irritation unlikely mastitis. Data reviewed: vital signs, ma2 nurses notes. Counseling: I had a detailed discussion with the patient and/or guardian regarding: the historical points, exam findings, and any diagnostic results supporting the discharge/admit diagnosis, the presence of at least one elevated blood pressure reading (>120/80) during this emergency department visit, the need for outpatient follow up. Response to treatment: the patient's symptoms have markedly improved after treatment. Administered Medications: No medications were administered Disposition: 09/06/18 19:23 Discharged to Home. Impression: Nipple discharge. - Condition is Stable. - Discharge Instructions: Challenges and Solutions. - Prescriptions for Nystatin- Triamcinolone 100,000-0.1 unit/gram-% Topical Ointment - apply 1 application by TOPICAL route 2 times per day; 1 tube. - Medication Reconciliation Form, Thank You Letter, Antibiotic Education, Prescription Opioid Use form. - Follow up: Private Physician; When: Tomorrow; Reason: Continuance of care. Signatures: Sanjeev Romero RN RN jl3 Maria Alejandra Hutton RN RN April Alexander MD MD ma2 Corrections: (The following items were deleted from the chart) 19:24 19:23 09/06/2018 19:23 Discharged to Home. Impression: Nipple discharge. Condition is ma2 Stable. Prescriptions for Nystatin-Triamcinolone 100,000-0.1 unit/gram-% Topical Ointment - apply 1 application by TOPICAL route 2 times per day; 1 tube. and Forms are Medication Reconciliation Form, Thank You Letter, Antibiotic Education, Prescription Opioid Use. Follow up: Private Physician; When: Tomorrow; Reason: Continuance of care. ma2 19:53 19:24 09/06/2018 19:23 Discharged to Home. Impression: Nipple discharge. Condition is jl3 Stable. Discharge Instructions: Challenges and Solutions. Prescriptions for Nystatin-Triamcinolone 100,000-0.1 unit/gram-% Topical Ointment - apply 1 application by TOPICAL route 2 times per day; 1 tube. and Forms are Medication Reconciliation Form, Thank You Letter, Antibiotic Education, Prescription Opioid Use. Follow up: Private Physician; When: Tomorrow; Reason: Continuance of care. ma2
--- NOTE | 2018-09-06 19:23 | ER ---
Nurse's Notes [facility] Name: Carla Duncan Age: 22 yrs Sex: Female : 1995 Arrival Date: 09/06/2018 Time: 17:30 Bed 11 Private MD: Diagnosis: Nipple discharge Presentation: 09/06 17:40 Presenting complaint: Mother states: "I am breast feeding and both my breasts are very hb sore.". Transition of care: patient was not received from another setting of care. Onset of symptoms was August 30, 2018. Risk Assessment: Do you want to hurt yourself or someone else? Patient reports no desire to harm self or others. Care prior to arrival: None. 17:40 Method Of Arrival: Ambulatory hb 17:40 Acuity: VENKATESH 4 hb 18:00 Initial Sepsis Screen: Does the patient meet any 2 criteria? No. Patient's initial mg2 sepsis screen is negative. Does the patient have a suspected source of infection? No. Patient's initial sepsis screen is negative. 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 - Social history:: Smoking status: Patient/guardian denies using tobacco, Patient/guardian denies using alcohol, street drugs, The patient lives with family. - Ebola Screening: : No symptoms or risks identified at this time. - Family history:: not pertinent. Screenin:59 Abuse screen: Denies threats or abuse. Denies injuries from another. Nutritional mg2 screening: No deficits noted. Tuberculosis screening: No symptoms or risk factors identified. Fall Risk None identified. Assessment: 18:18 General: Appears in no apparent distress. comfortable, Behavior is calm, cooperative. mg2 Pain: Complains of pain in breast. Neuro: Level of Consciousness is awake, alert, obeys commands, Oriented to person, place, time, situation. Cardiovascular: Capillary refill < 3 seconds Patient's skin is warm and dry. Respiratory: Airway is patent Respiratory effort is even, unlabored, Respiratory pattern is regular, symmetrical. GI: No signs and/or symptoms were reported involving the gastrointestinal system. : No signs and/or symptoms were reported regarding the genitourinary system. :. EENT: No signs and/or symptoms were reported regarding the EENT system. Derm: Skin is intact, is healthy with good turgor, Skin is pink, warm \\T\\ dry. normal. Musculoskeletal: Circulation, motion, and sensation intact. Capillary refill < 3 seconds. Vital Signs: 17:41 BP 111 / 58; Pulse 82; Resp 16; Temp 98.2; Pulse Ox 100% on R/A; Pain 8/10; hb ED Course: 17:30 Patient arrived in ED. as 17:41 Triage completed. hb 17:41 Arm band placed on right wrist. 17:49 April Alexander MD is Attending Physician. [facility] 17:59 Austen Perez, JUDI is Primary Nurse. mg2 18:00 No provider procedures requiring assistance completed. Patient did not have IV access mg2 during this emergency room visit. 18:01 Patient has correct armband on for positive identification. mg2 Administered Medications: No medications were administered Outcome: 19:23 Discharge ordered by . ma2 19:50 Discharged to home with family. jl3 19:50 Condition: stable 19:50 Discharge instructions given to family, with mother Instructed on Prescriptions given X 2. 19:53 Patient left the ED. jl3 Signatures: Adele Lopez John, RN RN jl3 Maria Alejandra Hutton RN RN April Alexander MD MD [facility] Austen Perez, JUDI RN mg2
[2018-09-06 20:03] VITALS: BP 111/58; TEMP 98.2; O2SAT 100
== END 2018-09-06 19:53 | disposition home or self-care (01) ==
LOC: ER 17:28
DX: N64.52 Nipple discharge (principal); F32.9 Major depressive disorder, single episode, unspecified; Z88.5 Allergy status to narcotic agent
CPT/HCPCS: 99282

== ENCOUNTER 2018-10-02 05:12 | Emergency (ER) | payer OTHER ==
--- OUTSIDE RECORDS SUMMARY | 2018-10-02 05:15 | XMS REPORT ---
:1995 [facility] Address [address] [place] [address] Care Team Providers Name Role Phone Unavailable Unavailable Unavailable Payers Payer Name Policy Type Policy Number Effective Date Expiration Date Problems This patient has no known problems. Allergies, Adverse Reactions, Alerts Allergy Allergy Status Severity Reaction(s) Onset Inactive Treating Comments Name Type Date Date Clinician morphine DA Active 2018-06 00:00:0 0 codeine DA Active [place] 2018-06 00:00:0 0 tramadol DA Active [place] 2018-05 00:00:0 0 No Known DA Active [...] (test code=PLTMR) NORMAL NORMAL AG HEPATITIS B [id number] 04:15:00 Test Item Value Reference Range Comments AG HEPATITIS B SURFACE (test code=HBSAG) NONREACTIVE NONREACTIVE AB HEPATITIS C [id number] 04:15:00 Test Item Value Reference Range Comments AB HEPATITIS C (test code=HCVAB) NONREACTIVE NONREACTIVE SIGNAL TO CUTOFF (test code=CUTOFF) 0.13 <0.80 RUBELLA [id number] 04:15:00 Test Item Value Reference Range Comments RUBELLA SCREEN (test 70.2 IUnit/ml Results >10.0IUnits/ml are code=RUBSC) considered positive inaccordance with the CLSI guidelines and based on the WHO International Standard for Anti-Rubella serum as anindicator of immune status and a breakpoint to detect mostseropositive persons. AB [id number] 04:15:00 Test Item Value Reference Range Comments AB TREPONEMA (test code=TREPAB) NONREACTIVE NONREACTIVE AG HEPATITIS B [id number] 04:00:00 Test Item Value Reference Range Comments AG HEPATITIS B SURFACE (test code=HBSAG) NONREACTIVE NONREACTIVE AB HEPATITIS C [id number] 04:00:00 Test Item Value Reference Range Comments AB HEPATITIS C (test code=HCVAB) NONREACTIVE SIGNAL TO CUTOFF (test code=CUTOFF) <0.80 RUBELLA [id number] 04:00:00 Test Item Value Reference Range Comments RUBELLA SCREEN (test 70.2 IUnit/ml Results >10.0IUnits/ml are code=RUBSC) considered positive inaccordance with the CLSI guidelines and based on the WHO International Standard for Anti-Rubella serum as anindicator of immune status and a breakpoint to detect mostseropositive persons. AB [id number] 04:00:00 Test Item Value Reference Range Comments AB TREPONEMA (test code=TREPAB) NONREACTIVE NONREACTIVE CBC W/AUTO [id number] 00:36:00 Test Item Value Reference Range Comments [...]
--- OUTSIDE RECORDS SUMMARY | 2018-10-02 05:15 | XMS REPORT | Clinical Summary ---
:1995 Author Organization [facility] Address [address] [place] [address] Care Team Providers Name Role Phone Asked, [...] Not on file Results Not on fileafter 10/01/2017 Insurance Payer Benefit Plan / Group Subscriber ID Type Phone Address MEDICAID MEDICAID xxxxxxxxx Medicaid [employer] [facility] xxxxxxxxx HMO CIGNA CIGNA OPEN xxxxxxxxxxx HMO ACCESS/NETWORK Advance Directives Patient has advance care planning documents on file. For more information, please contact:Ravi Delong[address] [place] [address]
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
--- NOTE | 2018-10-02 06:14 | EDPHYS ---
Physician Documentation [facility] Name: Carla Duncan Age: 23 yrs Sex: Female : 1995 Arrival Date: 10/02/2018 Time: 05:21 Bed 7 Private MD: ED Physician Austin Gaona HPI: 10/02 06:10 This 23 yrs old Female presents to ER via EMS with complaints of Breast gs Problem. 06:10 The patient or guardian complains of injury. The complaints affect the left elbow. gs Context: resulted from twisting motion of the upper extremity. Onset: The symptoms/episode began/occurred acutely, just prior to arrival. Associated signs and symptoms: Pertinent negatives: deformity, erythema. Severity of symptoms: At their worst the symptoms were mild, in the emergency department the symptoms are unchanged. The patient has not experienced similar symptoms in the past. Historical: - Allergies: 05:57 Codeine; lp1 05:57 tramadol; lp1 05:57 Tussin; lp1 05:57 Morphine; lp1 - Home Meds: 05:57 Alprazolam Oral [Active]; citalopram oral [Active]; Fluconazole Oral [Active]; lp1 - PMHx: 05:57 Anxiety; Depression; Ovarian cyst; Bipolar disorder; lp1 - PSHx: 05:57 ; lp1 - Immunization history:: Adult Immunizations up to date. - Social history:: Smoking status: Patient/guardian denies using tobacco. - Ebola Screening: : No symptoms or risks identified at this time. ROS: 06:10 All other systems are negative. gs Exam: 06:10 ENT: Nares patent. No nasal discharge, no septal abnormalities noted. Tympanic gs membranes are normal and external auditory canals are clear. Oropharynx with no redness, swelling, or masses, exudates, or evidence of obstruction, uvula midline. Mucous membranes moist. Chest/axilla: Normal chest wall appearance and motion. Nontender with no deformity. No lesions are appreciated. Cardiovascular: Regular rate and rhythm with a normal S1 and S2. No gallops, murmurs, or rubs. Normal PMI, no JVD. No pulse deficits. Respiratory: Lungs have equal breath sounds bilaterally, clear to auscultation and percussion. No rales, rhonchi or wheezes noted. No increased work of breathing, no retractions or nasal flaring. Abdomen/GI: Soft, non-tender, with normal bowel sounds. No distension or tympany. No guarding or rebound. No evidence of tenderness throughout. Back: No spinal tenderness. No costovertebral tenderness. Full range of motion. Skin: Warm, dry with normal turgor. Normal color with no rashes, no lesions, and no evidence of cellulitis. Neuro: Awake and alert, GCS 15, oriented to person, place, time, and situation. Cranial nerves II-XII grossly intact. Motor strength 5/5 in all extremities. Sensory grossly intact. Cerebellar exam normal. Normal gait. 06:10 Constitutional: The patient appears alert, awake. 06:10 Musculoskeletal/extremity: ROM: no acute changes, Circulation is intact in all extremities. Sensation intact. Joints: the left elbow displays tenderness. Vital Signs: 05:10 BP 123 / 81; Pulse 106; Resp 16; Temp 98.7(O); Pulse Ox 99% on R/A; Weight 79.38 kg; lp1 Height 5 ft. 0 in. (152.40 cm); Pain 10/10; 05:10 Body Mass Index 34.18 (79.38 kg, 152.40 cm) lp1 MDM: 05:30 Patient medically screened. gs 06:10 Differential diagnosis: closed fracture. Data reviewed: vital signs, nurses notes. gs Counseling: I had a detailed discussion with the patient and/or guardian regarding: the historical points, exam findings, and any diagnostic results supporting the discharge/admit diagnosis, radiology results. Response to treatment: the patient's symptoms have markedly improved after treatment, and as a result, I will discharge patient. 10/02 05:31 Order name: Elbow Left 3 View XRAY gs Administered Medications: No medications were administered Disposition: 10/02/18 06:13 Discharged to Home. Impression: Contusion of left elbow, Breast engorgement of . - Condition is Stable. - Discharge Instructions: Elbow Contusion. - Medication Reconciliation Form, Thank You Letter, Antibiotic Education, Prescription Opioid Use form. - Follow up: Ishmael Goetz MD; When: 2 - 3 days; Reason: Re-evaluation by your physician. Signatures: Dispatcher [employer] EDMS Addie Austin RN RN lp1 Austin Gaona MD MD gs Corrections: (The following items were deleted from the chart) 06:31 06:13 10/02/2018 06:13 Discharged to Home. Impression: Contusion of left elbow; Breast lp1 engorgement of . Condition is Stable. Forms are Medication Reconciliation Form, Thank You Letter, Antibiotic Education, Prescription Opioid Use. Follow up: Ishmael Goetz; When: 2 - 3 days; Reason: Re-evaluation by your physician. gs
--- NOTE | 2018-10-02 11:47 | RAD REPORT ---
EXAM DESCRIPTION: RAD - Elbow Left 3 View - 10/02/2018 6:28 am CLINICAL HISTORY: PAIN COMPARISON: No comparisons FINDINGS: No fracture or dislocation seen.
== END 2018-10-02 06:31 | disposition home or self-care (01) ==
LOC: ER 05:12
DX: S50.02XA Contusion of left elbow, initial encounter (principal); X37.1XXA Tornado, initial encounter; F41.9 Anxiety disorder, unspecified; F32.9 Major depressive disorder, single episode, unspecified; F31.9 Bipolar disorder, unspecified; Z88.5 Allergy status to narcotic agent; Z88.8 Allergy status to other drugs, medicaments and biological substances
CPT/HCPCS: 99283

== ENCOUNTER 2019-02-21 14:03 | Emergency (ER) | payer SELFPAY ==
[2019-02-21] MEDS ORDERED: dexAMETHasone 10 MG/ML VIAL ONE (14:43)
[2019-02-21] MEDS ORDERED: NA CHLORIDE 0.9% 1,000 ML ONE (14:44)
[2019-02-21] MEDS ORDERED: METOCLOPRAMIDE 10 MG/2mL INJ ONE (14:44)
--- OUTSIDE RECORDS SUMMARY | 2019-02-21 14:50 | XMS REPORT | Clinical Summary ---
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
--- OUTSIDE RECORDS SUMMARY | 2019-02-21 14:51 | XMS REPORT ---
:1995 Author [facility] Address [address] [place] [address] Care Team Providers Name Role Phone Unavailable Unavailable Unavailable Payers Payer Name Policy Type Policy Number Effective Date Expiration Date Problems This patient has no known problems. Allergies, Adverse Reactions, Alerts Allergy Allergy Status Severity Reaction(s) Onset Inactive Treating Comments Name Type Date Date Clinician morphine DA Active 2018-06 00:00:0 0 codeine DA Active [place] 2018-06 00:00:0 0 tramadol DA Active [place] 2018-05 00:00:0 0 No Known DA Active [...] (test code=PLTMR) NORMAL NORMAL AG HEPATITIS B [id number] 04:15:00 Test Item Value Reference Range Comments AG HEPATITIS B SURFACE (test code=HBSAG) NONREACTIVE NONREACTIVE AB HEPATITIS C [id number] 04:15:00 Test Item Value Reference Range Comments AB HEPATITIS C (test code=HCVAB) NONREACTIVE NONREACTIVE SIGNAL TO CUTOFF (test code=CUTOFF) 0.13 <0.80 RUBELLA [id number] 04:15:00 Test Item Value Reference Range Comments RUBELLA SCREEN (test 70.2 IUnit/ml Results >10.0IUnits/ml are code=RUBSC) considered positive inaccordance with the CLSI guidelines and based on the WHO International Standard for Anti-Rubella serum as anindicator of immune status and a breakpoint to detect mostseropositive persons. AB [id number] 04:15:00 Test Item Value Reference Range Comments AB TREPONEMA (test code=TREPAB) NONREACTIVE NONREACTIVE AG HEPATITIS B [id number] 04:00:00 Test Item Value Reference Range Comments AG HEPATITIS B SURFACE (test code=HBSAG) NONREACTIVE NONREACTIVE AB HEPATITIS C [id number] 04:00:00 Test Item Value Reference Range Comments AB HEPATITIS C (test code=HCVAB) NONREACTIVE SIGNAL TO CUTOFF (test code=CUTOFF) <0.80 RUBELLA [id number] 04:00:00 Test Item Value Reference Range Comments RUBELLA SCREEN (test 70.2 IUnit/ml Results >10.0IUnits/ml are code=RUBSC) considered positive inaccordance with the CLSI guidelines and based on the WHO International Standard for Anti-Rubella serum as anindicator of immune status and a breakpoint to detect mostseropositive persons. AB [id number] 04:00:00 Test Item Value Reference Range Comments AB TREPONEMA (test code=TREPAB) NONREACTIVE NONREACTIVE CBC W/AUTO [id number] 00:36:00 Test Item Value Reference Range Comments [...]
--- NOTE | 2019-02-21 15:05 | RAD REPORT ---
EXAM DESCRIPTION: CT - Head Brain Wo Cont - 02/21/2019 2:54 pm CLINICAL HISTORY: HEADACHE Headache, drowsiness COMPARISON: HEAD BRAIN W O CONTRAST dated 08/25/2010; HEAD BRAIN W O CONTRAST dated 03/11/2007 TECHNIQUE: All CT scans are performed using dose optimization technique as appropriate and may inclu de automated exposure control or mA/KV adjustment according to patient size. FINDINGS: No intracranial hemorrhage, hydrocephalus or extra-axial fluid collection.No areas of brai n edema or evidence of midline shift. The paranasal sinuses and mastoids are clear. The calvarium is intact. IMPRESSION: No acute intracranial abnormality.
[2019-02-21 15:25] LABS: BUN Blood Urea Nitrogen 12 mg/dL (7-18); Bicarbonate 24 mmol/L (21-32); Glucose Level 93 mg/dL (74-106); Potassium 3.8 mmol/L (3.5-5.1); Sodium Level 140 mmol/L (136-145)
[2019-02-21 15:58] LABS: Urine Bacteria 20-50 /HPF (<20); Urine Culture Reflex Order REFLEXED; Urine RBC <5 /HPF (NONE SEEN)
[2019-02-21 16:10] LABS: Urine Blood TRACE (NEG); Urine Glucose NEGATIVE (NEG); Urine Protein NEGATIVE (NEG); Urine pH 8.5 (5.0-7.0)
[2019-02-21] MEDS ORDERED: KETOROLAC 30 MG/ML INJ ONE (16:35)
--- NOTE | 2019-02-21 16:38 | ER ---
Nurse's Notes [facility] Name: Carla Duncan Age: 23 yrs Sex: Female : 1995 Arrival Date: 02/21/2019 Time: 14:05 Bed 28 Private MD: None, None Diagnosis: Headache Presentation: 02/21 14:07 Presenting complaint: Patient states: I was here Wednesday for migraine and it is still la1 hurting. When I stand up my head throbs and sometimes my ears pop. Transition of care: patient was not received from another setting of care. Onset of symptoms was February 21, 2019. Risk Assessment: Do you want to hurt yourself or someone else? Patient reports no desire to harm self or others. Initial Sepsis Screen: Does the patient meet any 2 criteria? No. Patient's initial sepsis screen is negative. Does the patient have a suspected source of infection? No. Patient's initial sepsis screen is negative. Care prior to arrival: None. 14:07 Method Of Arrival: Ambulatory la1 14:07 Acuity: VENKATESH 3 la1 Triage Assessment: 14:29 Headache History: The patient has had previous headaches and this one is similar to tw2 previous episodes. General: Appears uncomfortable, Behavior is calm, cooperative, appropriate for age. Pain: Complains of pain in face Also complains of dizziness. Neuro: Level of Consciousness is awake, alert, obeys commands, Oriented to person, place, time, situation. 14:30 Pain: Pain currently is 10 out of 10 on a pain scale. Pain began 2-3 days ago. 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 - Social history:: Smoking status: Patient/guardian denies using tobacco. - Ebola Screening: : No symptoms or risks identified at this time. - Family history:: not pertinent. - Hospitalizations: : No recent hospitalization is reported. Screenin:29 Abuse screen: Denies threats or abuse. Nutritional screening: No deficits noted. tw2 Tuberculosis screening: No symptoms or risk factors identified. Fall Risk None identified. Assessment: 14:29 Reassessment: provider at bedside at this time. tw2 15:28 Reassessment: Patient appears in no apparent distress at this time. No changes from tw2 previously documented assessment. Patient and/or family updated on plan of care and expected duration. Pain level reassessed. Patient is alert, oriented x 3, equal unlabored respirations, skin warm/dry/pink. Vital Signs: 14:08 BP 120 / 78; Pulse 92; Resp 16; Temp 98.4; Pulse Ox 100% on R/A; Weight 77.11 kg; la1 Height 5 ft. 0 in. (152.40 cm); 15:28 BP 112 / 69; Pulse 91; Resp 17; Pulse Ox 100% on R/A; tw2 16:45 BP 109 / 73; Pulse 89; Resp 16; Temp 98; Pulse Ox 100% on R/A; rv 14:08 Body Mass Index 33.20 (77.11 kg, 152.40 cm) la1 [place] Coma Score: 16:34 Eye Response: spontaneous(4). Verbal Response: oriented(5). Motor Response: obeys rn commands(6). Total: 15. ED Course: 14:05 Patient arrived in ED. ag5 14:05 None, None is Private Physician. ag5 14:08 Triage completed. la1 14:09 Arm band placed on right wrist. la1 14:09 Bed in low position. Call light in reach. tw2 14:18 Hal Watters MD is Attending Physician. rn 14:29 Citlaly Ernandez RN is Primary Nurse. tw2 14:49 Initial lab(s) drawn, by va, sent to lab. Inserted saline lock: 22 gauge in left lt1 antecubital area, using aseptic technique. 15:02 CT Head Brain wo Cont In Process Unspecified. EDMS 16:46 No provider procedures requiring assistance completed. IV discontinued, intact, rv bleeding controlled, No redness/swelling at site. Pressure dressing applied. Administered Medications: 14:45 Drug: Reglan 10 mg Route: IVP; Site: left antecubital; tw2 15:55 Follow up: Response: No adverse reaction; Marked relief of symptoms; Pain is decreased rv 14:47 Drug: Decadron - Dexamethasone 10 mg Route: IVP; Site: left antecubital; tw2 15:55 Follow up: Response: No adverse reaction; Marked relief of symptoms; Pain is decreased rv 14:49 Drug: NS 0.9% 1000 ml Route: IV; Rate: 1000 ml; Site: left antecubital; tw2 16:46 Follow up: IV Status: Completed infusion; IV Intake: 1000ml rv Intake: 16:46 IV: 1000ml; Total: 1000ml. rv Outcome: 16:35 Discharge ordered by . rn 16:46 Discharged to home ambulatory. rv 16:46 Condition: improved 16:46 Discharge instructions given to patient, Instructed on discharge instructions, follow up and referral plans. Demonstrated understanding of instructions, follow-up care. 16:47 Patient left the ED. rv Signatures: Dispatcher [employer] EDMS Hal Watters MD MD rn Attema, Lee RN RN la1 Citlaly Ernandez RN RN tw2 Justice King RN RN [employer] [facility] Nadeen Morris [facility]
--- NOTE | 2019-02-21 16:39 | EDPHYS ---
Physician Documentation [facility] Name: Carla Duncan Age: 23 yrs Sex: Female : 1995 Arrival Date: 02/21/2019 Time: 14:05 Bed 28 Private MD: None, None ED Physician Hal Watters HPI: 02/21 15:12 This 23 yrs old Female presents to ER via Ambulatory with complaints of rn Headache, Dizziness. 15:12 The patient complains of pain to the posterior. The patient describes the headache as rn aching. Onset: The symptoms/episode began/occurred 1 week(s) ago. Severity of symptoms: At its worst the pain was moderate, in the emergency department the pain has improved. The patient has experienced similar episodes in the past. The patient has been recently seen by a physician: The patient has been recently seen at the [facility] Emergency Department. Reports headache, for about a week, seen here this past weekend, states focused on chest pain, which has resolved, discharged home. States still has posterior headache, no fever, no trauma, no vomiting or vision problems. No focal neuro complaints. + previous hx of migraines but not in a while. . 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 - Social history:: Smoking status: Patient/guardian denies using tobacco. - Ebola Screening: : No symptoms or risks identified at this time. - Family history:: not pertinent. - Hospitalizations: : No recent hospitalization is reported. ROS: 15:13 Constitutional: Negative for fever, chills, and weight loss, Eyes: Negative for injury, rn pain, redness, and discharge, Neck: Negative for injury, pain, and swelling, Cardiovascular: Negative for chest pain, palpitations, and edema, Respiratory: Negative for shortness of breath, cough, wheezing, and pleuritic chest pain, Abdomen/GI: Negative for abdominal pain, nausea, vomiting, diarrhea, and constipation, MS/Extremity: Negative for injury and deformity, Skin: Negative for injury, rash, and discoloration, Neuro: Negative for weakness, numbness, tingling, and seizure. Exam: 15:13 Constitutional: This is a well developed, well nourished patient who is awake, alert, rn and in no acute distress. Head/Face: Normocephalic, atraumatic. Eyes: Pupils equal round and reactive to light, extra-ocular motions intact. Lids and lashes normal. Conjunctiva and sclera are non-icteric and not injected. Cornea within normal limits. Periorbital areas with no swelling, redness, or edema. Neck: Trachea midline, no thyromegaly or masses palpated, and no cervical lymphadenopathy. Supple, full range of motion without nuchal rigidity, or vertebral point tenderness. No Meningismus. Cardiovascular: Regular rate and rhythm. No pulse deficits. Respiratory: Lungs have equal breath sounds bilaterally, clear to auscultation. No increased work of breathing, no retractions or nasal flaring. Abdomen/GI: soft, non-tender Skin: Warm, dry with normal turgor. Normal color with no rashes, no lesions, and no evidence of cellulitis. MS/ Extremity: Pulses equal, no cyanosis. Neurovascular intact. Full, normal range of motion. Equal circumference. Neuro: Awake and alert, GCS 15, oriented to person, place, time, and situation. Cranial nerves II-XII grossly intact. Motor strength 5/5 in all extremities. Sensory grossly intact. Cerebellar exam normal. Normal gait. Vital Signs: 14:08 BP 120 / 78; Pulse 92; Resp 16; Temp 98.4; Pulse Ox 100% on R/A; Weight 77.11 kg; la1 Height 5 ft. 0 in. (152.40 cm); 15:28 BP 112 / 69; Pulse 91; Resp 17; Pulse Ox 100% on R/A; tw2 16:45 BP 109 / 73; Pulse 89; Resp 16; Temp 98; Pulse Ox 100% on R/A; rv 14:08 Body Mass Index 33.20 (77.11 kg, 152.40 cm) la1 [place] Coma Score: 16:34 Eye Response: spontaneous(4). Verbal Response: oriented(5). Motor Response: obeys rn commands(6). Total: 15. MDM: 14:18 Patient medically screened. rn 16:34 Differential diagnosis: migraine, tension headache. rn 16:34 Data reviewed: vital signs, nurses notes, lab test result(s), radiologic studies, CT rn scan, and as a result, I will discharge patient. Counseling: I had a detailed discussion with the patient and/or guardian regarding: the historical points, exam findings, and any diagnostic results supporting the discharge/admit diagnosis, lab results, radiology results, the need for outpatient follow up, to return to the emergency department if symptoms worsen or persist or if there are any questions or concerns that arise at home. Response to treatment: the patient's symptoms have markedly improved after treatment, and as a result, I will discharge patient. Special discussion: I discussed with the patient/guardian in detail that at this point there is no indication for admission to the hospital. It is understood, however, that if the symptoms persist or worsen the patient needs to return immediately for re-evaluation. 02/21 14:33 Order name: Basic Metabolic Panel; Complete Time: 15:33 rn 02/21 14:33 Order name: Urine Microscopic Only; Complete Time: 16:00 rn 02/21 14:33 Order name: Garza Screen Profile; Complete Time: 16:33 rn 02/21 14:54 Order name: Urine Dipstick--Ancillary (enter results); Complete Time: 16:33 bd 02/21 14:54 Order name: Urine --Ancillary (enter results); Complete Time: 16:33 02/21 16:16 Order name: Urine Culture EDMS 02/21 14:33 Order name: CT Head Brain wo Cont; Complete Time: 15:48 rn 02/21 14:33 Order name: IV Start; Complete Time: 14:50 rn 02/21 14:33 Order name: Urine Test (obtain specimen); Complete Time: 14:50 rn 02/21 14:33 Order name: Urine Dipstick-Ancillary (obtain specimen); Complete Time: 14:50 rn Administered Medications: 14:45 Drug: Reglan 10 mg Route: IVP; Site: left antecubital; tw2 15:55 Follow up: Response: No adverse reaction; Marked relief of symptoms; Pain is decreased rv 14:47 Drug: Decadron - Dexamethasone 10 mg Route: IVP; Site: left antecubital; tw2 15:55 Follow up: Response: No adverse reaction; Marked relief of symptoms; Pain is decreased rv 14:49 Drug: NS 0.9% 1000 ml Route: IV; Rate: 1000 ml; Site: left antecubital; tw2 16:46 Follow up: IV Status: Completed infusion; IV Intake: 1000ml rv Disposition: 02/21/19 16:35 Discharged to Home. Impression: Headache. - Condition is Stable. - Discharge Instructions: General Headache Without Cause, Migraine Headache. - Medication Reconciliation Form, Thank You Letter, Antibiotic Education, Prescription Opioid Use, Work release form form. - Follow up: Private Physician; When: As needed; Reason: Recheck today's complaints, Re-evaluation by your physician. - Problem is new. - Symptoms have improved. Signatures: Dispatcher [employer] EDMS Hal Watters MD MD rn Attema, Amanuel RN RN la1 Citlaly Ernandez RN RN tw2 Justice King RN RN rv Corrections: (The following items were deleted from the chart) 16:47 16:35 02/21/2019 16:35 Discharged to Home. Impression: Headache. Condition is Stable. rv Forms are Medication Reconciliation Form, Thank You Letter, Antibiotic Education, Prescription Opioid Use. Follow up: Private Physician; When: As needed; Reason: Recheck today's complaints, Re-evaluation by your physician. Problem is new. Symptoms have improved. rn
[2019-02-21 18:02] VITALS: O2SAT 100
[2019-02-21 18:05] VITALS: BP 109/73; TEMP 98
== END 2019-02-21 16:47 | disposition home or self-care (01) ==
LOC: ER 14:03
DX: R51 Headache (principal); Z88.5 Allergy status to narcotic agent; Z88.8 Allergy status to other drugs, medicaments and biological substances
CPT/HCPCS: 36415; 70450; 80048; 81003; 81015; 81025; 86308; 87086; 87088; 96361; 96374; 96375; 99284; J1100; J2765; J7030

== ENCOUNTER 2019-04-24 22:36 | Emergency (ER) | payer SELFPAY ==
[2019-04-24] MEDS ORDERED: IPRATROPIUM BROM 0.5MG/2.5ML ONE (23:10)
[2019-04-24] MEDS ORDERED: ALBUTEROL 2.5 MG/3 ML NEB SOL ONE (23:10)
[2019-04-24] MEDS ORDERED: HYDROCODONE/CHLORPHEN 5 ML/OSYR ONE (23:11)
[2019-04-24 23:57] LABS: Urine Blood TRACE (NEG); Urine Glucose NEGATIVE (NEG); Urine Protein NEGATIVE (NEG)
--- NOTE | 2019-04-25 00:02 | EDPHYS ---
Physician Documentation [facility] Name: Carla Duncan Age: 23 yrs Sex: Female : 1995 Arrival Date: 04/24/2019 Time: 22:37 Bed 28 Private MD: ED Physician Ike Main HPI: 04/24 23:06 This 23 yrs old Female presents to ER via Ambulatory with complaints of Cough. cp 23:06 The patient or guardian reports cough, that is intermittent, with no sputum. Onset: The cp symptoms/episode began/occurred 3 week(s) ago. Severity of symptoms: in the emergency department the symptoms are unchanged, despite home interventions. Associated signs and symptoms: Pertinent positives: sore throat, Pertinent negatives: diarrhea, fever, vomiting. Historical: - Allergies: 23:06 Codeine; tr5 23:06 Toradol; tr5 23:06 tramadol; tr5 23:06 Tussin; tr5 23:06 Demerol; tr5 - PMHx: 23:06 Anxiety; Bipolar disorder; Depression; Ovarian cyst; tr5 - Immunization history:: Adult Immunizations up to date. - Social history:: Smoking status: unknown. - Ebola Screening: : No symptoms or risks identified at this time. ROS: 23:07 Eyes: Negative for injury, pain, redness, and discharge. cp 23:07 Constitutional: Negative for body aches, chills, fever, poor PO intake. 23:07 ENT: Positive for sore throat, Negative for drainage from ear(s), ear pain, sinus congestion, sinus pain, difficulty swallowing, difficulty handling secretions. 23:07 Cardiovascular: Negative for chest pain, edema, palpitations. 23:07 Respiratory: Positive for cough, with no reported sputum, shortness of breath, Negative for wheezing. 23:07 Abdomen/GI: Negative for abdominal pain, vomiting, diarrhea, constipation. 23:07 Skin: Negative for rash. 23:07 Neuro: Negative for altered mental status, headache, weakness. 23:07 All other systems are negative. Exam: 23:08 Head/Face: Normocephalic, atraumatic. cp 23:08 Constitutional: The patient appears in no acute distress, alert, awake, non-toxic, well developed, well nourished. 23:08 Eyes: Periorbital structures: appear normal, Conjunctiva: normal, no exudate, no injection, Lids and lashes: appear normal, bilaterally. 23:08 ENT: External ear(s): are unremarkable, Ear canal(s): are normal, clear, TM's: bulging, is not appreciated, bilaterally, erythema, is not appreciated, bilaterally, Nose: is normal, Mouth: is normal, Posterior pharynx: Airway: no evidence of obstruction, patent, Tonsils: no enlargement, no exudate, swelling, is not appreciated, erythema, that is mild, exudate, is not appreciated. 23:08 Neck: ROM/movement: is normal, is supple, without pain, no range of motions limitations, no meningismus, no nuchal rigidity, Lymph nodes: no appreciated lymphadenopathy. 23:08 Chest/axilla: Inspection: normal, Palpation: is normal, no crepitus, no tenderness. 23:08 Cardiovascular: Rate: normal, Rhythm: regular. 23:08 Respiratory: the patient does not display signs of respiratory distress, Respirations: normal, no use of accessory muscles, no retractions, no splinting, no tachypnea, labored breathing, is not present, Breath sounds: decreased breath sounds, are not appreciated, stridor, is not appreciated, wheezing: is not appreciated. 23:08 Abdomen/GI: Exam negative for discomfort, distension, guarding, Inspection: abdomen appears normal. 23:08 Skin: no rash present. 04/25 00:26 ECG was reviewed by the Attending Physician. Vital Signs: 04/24 22:54 BP 116 / 77 RA Sitting (auto/reg); Pulse 95; Resp 16; Temp 98.6; Pulse Ox 100% on R/A; jp3 Weight 79.83 kg (R); Height 5 ft. 0 in. (152.40 cm) (R); Pain 6/10; 22:54 Body Mass Index 34.37 (79.83 kg, 152.40 cm) jp3 MDM: 22:46 Patient medically screened. cp 04/25 00:00 Data reviewed: vital signs, nurses notes, lab test result(s), radiologic studies, plain cp films, and as a result, I will discharge patient. 00:00 Differential Diagnosis: Bronchitis Influenza Pneumonia. Test interpretation: by ED cp physician or midlevel provider: plain radiologic studies, chest xray negative for infiltrates. Counseling: I had a detailed discussion with the patient and/or guardian regarding: the historical points, exam findings, and any diagnostic results supporting the discharge/admit diagnosis, lab results, radiology results, to return to the emergency department if symptoms worsen or persist or if there are any questions or concerns that arise at home. Response to treatment: the patient's symptoms have markedly improved after treatment, and as a result, I will discharge patient. 04/24 23: Order name: Strep; Complete Time: 23:58 cp 04/24 23:29 Order name: Urine Dipstick--Ancillary (enter results); Complete Time: 23:58 aa1 04/24 23 Order name: XRAY Chest Pa And Lat (2 Views) cp 04/24 23:30 Order name: Urine --Ancillary (enter results); Complete Time: 23:58 aa1 04/24 23: Order name: Urine Dipstick-Ancillary (obtain specimen); Complete Time: 23:45 cp 04/24 23: Order name: Urine Test (obtain specimen); Complete Time: 23:45 cp EC:26 Rate is 103 beats/min. Rhythm is regular. NM interval is normal. QRS interval is cp normal. QT interval is normal. Interpreted by me. Reviewed by me. Administered Medications: 04/24 23:44 Drug: Tussionex Pennkinetic ER 5 ml Route: PO; tr5 04/25 00:33 Follow up: Response: Marked relief of symptoms tr5 04/24 23:44 Drug: Albuterol 2.5 mg Route: Inhalation; tr5 04/25 00:34 Follow up: Response: Marked relief of symptoms tr5 04/24 23:44 Drug: AtroVENT Aerosol 0.5 mg Route: Inhalation; tr5 04/25 00:34 Follow up: Response: Marked relief of symptoms tr5 00:33 Drug: Ibuprofen 800 mg Route: PO; tr5 :33 Follow up: Response: Medication administered at discharge. tr5 Disposition: 04:30 Co-signature as Attending Physician, Ike Main MD I agree with the assessment and tw4 plan of care. Disposition: 04/25/19 00:01 Discharged to Home. Impression: Acute bronchitis. - Condition is Stable. - Discharge Instructions: Acute Bronchitis, Adult. - Prescriptions for Tessalon Perles 100 mg Oral Capsule - take 2 capsules by ORAL route every 8 hours As needed; 30 capsule. Zithromax Z- Bernardino 250 mg Oral Tablet - take 1 tablet by ORAL route as directed for 5 days Day 1 - take two (2) tablets one time. Day 2, 3, 4 , 5 take one (1) tablet once daily.; 6 tablet. Medrol (Bernardino) 4 mg Oral Tablets, Dose Pack - take 1 tablet by ORAL route as directed - follow package instructions; 1 packet. Albuterol Sulfate 90 mcg/actuation - inhale 1-2 puff by INHALATION route every 4-6 hours; 1 Inhaler. - Medication Reconciliation Form, Thank You Letter, Antibiotic Education, Prescription Opioid Use form. - Follow up: Private Physician; When: 2 - 3 days; Reason: Worsening of condition. - Problem is new. - Symptoms have improved. Signatures: Dispatcher [employer] EDID Michael Dowd PA PA cp Ike Main MD MD tw4 Jet Ansari RN RN tr5 Corrections: (The following items were deleted from the chart) 04/24 23:08 23:06 Chest Pa And Lat (2 Views)+[id number] ordered. [facility] EDID 04/25 00:35 00:01 04/25/2019 00:01 Discharged to Home. Impression: Acute bronchitis. Condition is tr5 Stable. Forms are Medication Reconciliation Form, Thank You Letter, Antibiotic Education, Prescription Opioid Use. Follow up: Private Physician; When: 2 - 3 days; Reason: Worsening of condition. Problem is new. Symptoms have improved. cp
--- NOTE | 2019-04-25 00:02 | ER ---
Nurse's Notes [facility] Name: Carla Duncan Age: 23 yrs Sex: Female : 1995 Arrival Date: 04/24/2019 Time: 22:37 Bed 28 [facility] MD: Diagnosis: Acute bronchitis Presentation: 04/24 23:03 Presenting complaint: Patient states: "I have had a dry cough for about 3 weeks now. tr5 Everyone in my house was sick and now i got it.". Transition of care: patient was not received from another setting of care. Onset of symptoms was April 24, 2019. Risk Assessment: Do you want to hurt yourself or someone else? Patient reports no desire to harm self or others. Initial Sepsis Screen: Does the patient meet any 2 criteria? No. Patient's initial sepsis screen is negative. Does the patient have a suspected source of infection? No. Patient's initial sepsis screen is negative. Care prior to arrival: None. 23:03 Method Of Arrival: Ambulatory tr5 23:03 Acuity: VENKATESH 4 tr5 Historical: - Allergies: 23:06 Codeine; tr5 23:06 Toradol; tr5 23:06 tramadol; tr5 23:06 Tussin; tr5 23:06 Demerol; tr5 - PMHx: 23:06 Anxiety; Bipolar disorder; Depression; Ovarian cyst; tr5 - Immunization history:: Adult Immunizations up to date. - Social history:: Smoking status: unknown. - Ebola Screening: : No symptoms or risks identified at this time. Screenin:15 Abuse screen: Denies threats or abuse. Nutritional screening: No deficits noted. tr5 Tuberculosis screening: No symptoms or risk factors identified. Fall Risk None identified. Assessment: 23:15 General: Appears uncomfortable, Behavior is calm, cooperative, appropriate for age. tr5 Pain: Complains of pain in chest. Neuro: Level of Consciousness is awake, alert, obeys commands, Oriented to person, place, time, Pool Finisher are equal bilaterally. Cardiovascular: Heart tones present Capillary refill is > 3 seconds Pulses are all present. Edema is absent. Respiratory: Reports cough that is dry, hacking, persistent Airway is patent Respiratory effort is even, unlabored, Respiratory pattern is regular, symmetrical. GI: No signs and/or symptoms were reported involving the gastrointestinal system. : No signs and/or symptoms were reported regarding the genitourinary system. EENT: No signs and/or symptoms were reported regarding the EENT system. Derm: No signs and/or symptoms reported regarding the dermatologic system. Musculoskeletal: No signs and/or symptoms reported regarding the musculoskeletal system. Vital Signs: 22:54 BP 116 / 77 RA Sitting (auto/reg); Pulse 95; Resp 16; Temp 98.6; Pulse Ox 100% on R/A; jp3 Weight 79.83 kg (R); Height 5 ft. 0 in. (152.40 cm) (R); Pain 6/10; 22:54 Body Mass Index 34.37 (79.83 kg, 152.40 cm) jp3 ED Course: 22:37 Patient arrived in ED. ds1 22:43 Michael Dowd PA is PHCP. cp 22:43 Ike Main MD is Attending Physician. cp 22:55 Bed in low position. Call light in reach. Warm blanket given. Verbal reassurance given. jp3 Pulse ox on. NIBP on. 22:57 Patient maintains SpO2 saturation greater than 95% on room air. jp3 23:02 Jet Ansari, RN is Primary Nurse. tr5 23:05 Triage completed. tr5 23:06 Arm band placed on. tr5 04/25 00:34 No provider procedures requiring assistance completed. Patient did not have IV access tr5 during this emergency room visit. 00:54 XRAY Chest Pa And Lat (2 Views) In Process Unspecified. EDMS Administered Medications: 04/24 23:44 Drug: Tussionex Pennkinetic ER 5 ml Route: PO; tr5 04/25 00:33 Follow up: Response: Marked relief of symptoms tr5 04/24 23:44 Drug: Albuterol 2.5 mg Route: Inhalation; tr5 04/25 00:34 Follow up: Response: Marked relief of symptoms tr5 04/24 23:44 Drug: AtroVENT Aerosol 0.5 mg Route: Inhalation; tr5 04/25 00:34 Follow up: Response: Marked relief of symptoms tr5 00:33 Drug: Ibuprofen 800 mg Route: PO; tr5 00:33 Follow up: Response: Medication administered at discharge. tr5 Outcome: 00:01 Discharge ordered by . cp 00:34 Discharged to home ambulatory. tr5 00:34 Condition: stable 00:34 Discharge instructions given to patient, family, Instructed on discharge instructions, follow up and referral plans. medication usage, Demonstrated understanding of instructions, follow-up care, medications, Prescriptions given X 4. 00:35 Patient left the ED. tr5 Signatures: Dispatcher [employer] EDLA Izzy Mccloud ds1 Michael Dowd PA PA cp Pisarski, Jacob jp3 Jet Ansari, RN RN tr5
[2019-04-25] MEDS ORDERED: IBUPROFEN 400 MG TAB ONE (00:25)
[2019-04-25 01:11] VITALS: BP 116/77; TEMP 98.6; O2SAT 100
--- NOTE | 2019-04-25 07:35 | RAD REPORT ---
EXAM DESCRIPTION: RAD - Chest Pa And Lat (2 Views) - 04/25/2019 12:54 am CLINICAL HISTORY: COUGH COMPARISON: February 18 TECHNIQUE: PA and lateral views of the chest were obtained. FINDINGS: The lungs are clear. Heart size is normal and central vasculature is within normal limit s. No pleural effusion or pneumothorax seen. No acute bony finding noted. No aortic abnormality. No significant interval change. IMPRESSION: No acute cardiopulmonary process.
--- NOTE | 2019-04-25 10:17 | EKG ---
Test Date: 2019-04-25 Test Time: 00:20:59 [employer]: TR MEASUREMENT RESULTS: Intervals: Rate: 103 GA: 166 QRSD: 78 QT: 354 QTc: 463 [place]: P: 70 GA: 166 QRS: 66 T: 40 INTERPRETIVE STATEMENTS: Sinus tachycardia Otherwise normal ECG Compared to ECG 02/18/2019 19:02:18 Sinus rhythm no longer present Electronically Signed On 04-25-19 10:15:59 CDT by Jatin Sandhu
== END 2019-04-25 00:35 | disposition home or self-care (01) ==
LOC: ER 22:36
DX: J20.9 Acute bronchitis, unspecified (principal); Z88.6 Allergy status to analgesic agent
CPT/HCPCS: 71046; 81003; 81025; 87070; 87081; 93005; 99285

== ENCOUNTER 2019-05-21 00:07 | Emergency (ER) | payer SELFPAY ==
--- OUTSIDE RECORDS SUMMARY | 2019-05-21 00:11 | XMS REPORT ---
:1995 Author Organization [facility] Address [address] [place] [address] Care Team Providers Name Role Phone Unavailable Unavailable Unavailable Payers Payer Name Policy Type Policy Number Effective Date Expiration Date Problems This patient has no known problems. Allergies, Adverse Reactions, Alerts Allergy Allergy Status Severity Reaction(s) Onset Inactive Treating Comments Name Type Date Date Clinician morphine DA Active 2018-06 00:00:0 0 codeine DA Active AK 2018-06 00:00:0 0 tramadol DA Active AK 2018-05 00:00:0 0 No Known DA Active [...] (test code=PLTMR) NORMAL NORMAL AG HEPATITIS B [id number] 04:15:00 Test Item Value Reference Range Comments AG HEPATITIS B SURFACE (test code=HBSAG) NONREACTIVE NONREACTIVE AB HEPATITIS C [id number] 04:15:00 Test Item Value Reference Range Comments AB HEPATITIS C (test code=HCVAB) NONREACTIVE NONREACTIVE SIGNAL TO CUTOFF (test code=CUTOFF) 0.13 <0.80 RUBELLA [id number] 04:15:00 Test Item Value Reference Range Comments RUBELLA SCREEN (test 70.2 IUnit/ml Results >10.0IUnits/ml are code=RUBSC) considered positive inaccordance with the CLSI guidelines and based on the WHO International Standard for Anti-Rubella serum as anindicator of immune status and a breakpoint to detect mostseropositive persons. AB [id number] 04:15:00 Test Item Value Reference Range Comments AB TREPONEMA (test code=TREPAB) NONREACTIVE NONREACTIVE AG HEPATITIS B [id number] 04:00:00 Test Item Value Reference Range Comments AG HEPATITIS B SURFACE (test code=HBSAG) NONREACTIVE NONREACTIVE AB HEPATITIS C [id number] 04:00:00 Test Item Value Reference Range Comments AB HEPATITIS C (test code=HCVAB) NONREACTIVE SIGNAL TO CUTOFF (test code=CUTOFF) <0.80 RUBELLA [id number] 04:00:00 Test Item Value Reference Range Comments RUBELLA SCREEN (test 70.2 IUnit/ml Results >10.0IUnits/ml are code=RUBSC) considered positive inaccordance with the CLSI guidelines and based on the WHO International Standard for Anti-Rubella serum as anindicator of immune status and a breakpoint to detect mostseropositive persons. AB [id number] 04:00:00 Test Item Value Reference Range Comments AB TREPONEMA (test code=TREPAB) NONREACTIVE NONREACTIVE CBC W/AUTO [id number] 00:36:00 Test Item Value Reference Range Comments [...]
[2019-05-21] MEDS ORDERED: NA CHLORIDE 0.9% 1,000 ML ONE ×2 (00:31→01:43)
[2019-05-21] MEDS ORDERED: IPRATROPIUM BROM 0.5MG/2.5ML ONE (00:31)
[2019-05-21] MEDS ORDERED: LEVALBUTEROL 1.25 MG/3 ML NEB ONE (00:31)
[2019-05-21] MEDS ORDERED: METHYLPREDNISOLONE 125 MG INJ ONE (00:55)
[2019-05-21 00:56] LABS: Absolute Lymphocytes (CBC) 2.7 K/uL (0.7-4.9); Basophils % 0.5 % (0-1.3); Hematocrit 38.3 % (36.0-45.0); Lymphocytes % 26.7 % (15.3-44.8); MPV 8.2 fL (7.6-11.3); RBC Red Blood Cell Count 4.34 M/uL (3.86-4.86)
[2019-05-21 01:11] LABS: ALT/SGPT 18 U/L (12-78); Albumin 3.8 g/dL (3.4-5.0); Alkaline Phosphatase 80 U/L (45-117); BUN Blood Urea Nitrogen 13 mg/dL (7-18); Bicarbonate 25 mmol/L (21-32); Bilirubin Total 0.3 mg/dL (0.2-1.0); Glucose Level 118 mg/dL (74-106); Potassium 3.7 mmol/L (3.5-5.1); Protein, Total 7.5 g/dL (6.4-8.2); Sodium Level 140 mmol/L (136-145)
[2019-05-21 01:12] LABS: AST/SGOT < 3 U/L (15-37)
[2019-05-21] MEDS ORDERED: ONDANSETRON 4 MG/2 ML VIAL ONE (01:14)
[2019-05-21] MEDS ORDERED: predniSONE 20 MG TAB ONE (01:24)
--- NOTE | 2019-05-21 01:26 | EDPHYS ---
Physician Documentation [facility] Name: Carla Duncan Age: 23 yrs Sex: Female : 1995 Arrival Date: 05/21/2019 Time: 00:11 Bed 5 Private MD: ED Physician Michael Yuan HPI: 05/21 00:28 This 23 yrs old Female presents to ER via Ambulatory with complaints of Chest atif Pain, Cough. 00:28 The patient or guardian reports chest pain that is located primarily in the anterior [facility] chest wall, bilaterally. The pain does not radiate. Associated signs and symptoms: Pertinent positives: lightheadedness, shortness of breath. The chest pain is described as dull. Modifying factors: The symptoms are alleviated by nothing. the symptoms are aggravated by nothing. 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 - Social history:: Smoking status: Patient/guardian denies using tobacco. - Ebola Screening: : Patient negative for fever greater than or equal to 101.5 degrees Fahrenheit, and additional compatible Ebola Virus Disease symptoms. - Family history:: not pertinent. ROS: 00:28 Constitutional: Negative for fever, chills, and weight loss, Eyes: Negative for injury, atif pain, redness, and discharge, ENT: Negative for injury, pain, and discharge, Neck: Negative for injury, pain, and swelling, Cardiovascular: Negative for chest pain, palpitations, and edema, Abdomen/GI: Negative for abdominal pain, nausea, vomiting, diarrhea, and constipation, Back: Negative for injury and pain, : Negative for injury, bleeding, discharge, and swelling, MS/Extremity: Negative for injury and deformity, Skin: Negative for injury, rash, and discoloration, Neuro: Negative for headache, weakness, numbness, tingling, and seizure, Psych: Negative for depression, anxiety, suicide ideation, homicidal ideation, and hallucinations, Allergy/Immunology: Negative for hives, rash, and allergies, Endocrine: Negative for neck swelling, polydipsia, polyuria, polyphagia, and marked weight changes, Hematologic/Lymphatic: Negative for swollen nodes, abnormal bleeding, and unusual bruising. 00:28 Respiratory: Positive for cough, shortness of breath, at rest. Exam: 00:28 Constitutional: This is a well developed, well nourished patient who is awake, alert, atif and in no acute distress. Head/Face: Normocephalic, atraumatic. Eyes: Pupils equal round and reactive to light, extra-ocular motions intact. Lids and lashes normal. Conjunctiva and sclera are non-icteric and not injected. Cornea within normal limits. Periorbital areas with no swelling, redness, or edema. ENT: Nares patent. No nasal discharge, no septal abnormalities noted. Tympanic membranes are normal and external auditory canals are clear. Oropharynx with no redness, swelling, or masses, exudates, or evidence of obstruction, uvula midline. Mucous membranes moist. Neck: Trachea midline, no thyromegaly or masses palpated, and no cervical lymphadenopathy. Supple, full range of motion without nuchal rigidity, or vertebral point tenderness. No Meningismus. Chest/axilla: Normal chest wall appearance and motion. Nontender with no deformity. No lesions are appreciated. Cardiovascular: Regular rate and rhythm with a normal S1 and S2. No gallops, murmurs, or rubs. Normal PMI, no JVD. No pulse deficits. Respiratory: Lungs have equal breath sounds bilaterally, clear to auscultation and percussion. No rales, rhonchi or wheezes noted. No increased work of breathing, no retractions or nasal flaring. Abdomen/GI: Soft, non-tender, with normal bowel sounds. No distension or tympany. No guarding or rebound. No evidence of tenderness throughout. Back: No spinal tenderness. No costovertebral tenderness. Full range of motion. Female : Normal external genitalia. Skin: Warm, dry with normal turgor. Normal color with no rashes, no lesions, and no evidence of cellulitis. MS/ Extremity: Pulses equal, no cyanosis. Neurovascular intact. Full, normal range of motion. Neuro: Awake and alert, GCS 15, oriented to person, place, time, and situation. Cranial nerves II-XII grossly intact. Motor strength 5/5 in all extremities. Sensory grossly intact. Cerebellar exam normal. Normal gait. Psych: Awake, alert, with orientation to person, place and time. Behavior, mood, and affect are within normal limits. 00:28 Musculoskeletal/extremity: ROM: intact in all extremities, full active range of motion, full passive range of motion, Circulation is intact in all extremities. Sensation intact. Compartment Syndrome exam of affected extremity: is normal. Joints: All joints appear normal with full range of motion. DVT Exam: No signs of deep vein thrombosis. no pain, no swelling, no tenderness, negative Homans' sign noted on exam, no appreciated bluish discoloration, no erythema, no increased warmth. Vital Signs: 00:16 BP 152 / 96; Pulse 122; Resp 20 S; Temp 98.3(O); Pulse Ox 100% on R/A; Weight 80.29 kg jd3 (R); Height 5 ft. 0 in. (152.40 cm) (R); Pain 8/10; 01:00 BP 142 / 85; Pulse 120; Resp 21; Pulse Ox 99% ; rr5 02:10 BP 121 / 79; Pulse 110; Resp 19; Pulse Ox 98% ; rr5 03:28 BP 118 / 71; Pulse 99; Resp 17; Temp 97.9; Pulse Ox 99% ; rr5 00:16 Body Mass Index 34.57 (80.29 kg, 152.40 cm) jd3 MDM: 00:18 Patient medically screened. [facility] 00:33 Data reviewed: vital signs, nurses notes, lab test result(s), EKG, radiologic studies. [facility] 05/21 00:28 Order name: CBC with Diff; Complete Time: 01:12 [facility] 05/21 00:28 Order name: Comprehensive Metabolic Panel; Complete Time: 02:52 [facility] 05/21 00:28 Order name: D-Dimer; Complete Time: 01:12 [facility] 05/21 00:58 Order name: Urine Dipstick--Ancillary (enter results); Complete Time: 02:52 al 05/21 00:58 Order name: Urine --Ancillary (enter results); Complete Time: 02:52 al 05/21 01:39 Order name: UDS; Complete Time: 02:52 [facility] 05/21 00:28 Order name: Chest Pa And Lat (2 Views) XRAY [facility] 05/21 01:39 Order name: CT Chest For PE Angio [facility] 05/21 01:59 Order name: Troponin (Emerg Dept Use Only); Complete Time: 02:52 EDKY 05/21 00:28 Order name: Urine Dipstick-Ancillary (obtain specimen); Complete Time: 01:01 [facility] 05/21 00:28 Order name: Urine Test (obtain specimen); Complete Time: 01: [facility] 05/21 00:34 Order name: EKG; Complete Time: 00:34 [facility] 05/21 00:34 Order name: EKG - Nurse/Tech; Complete Time: 00:50 [facility] Administered Medications: 00:33 Drug: AtroVENT Aerosol 0.5 mg Route: Inhalation; rr5 02:08 Follow up: Response: No adverse reaction rr5 00:40 Drug: Xopenex 2.5 mg Route: Inhalation; rr5 02:08 Follow up: Response: No adverse reaction rr5 00:51 Drug: NS 0.9% 1000 ml Route: IV; Rate: 1 bolus; Site: right forearm; rr5 03:15 Follow up: Response: No adverse reaction; IV Status: Completed infusion; IV Intake: rr5 1000ml 01:15 Drug: Zofran 4 mg Route: IVP; Site: right forearm; rr5 02:15 Follow up: Response: No adverse reaction rr5 01:21 Drug: SOLU-Medrol 125 mg Route: IVP; Site: right forearm; rr5 02:08 Follow up: Response: No adverse reaction rr5 01:25 Drug: predniSONE 20 mg Route: PO; rr5 02:25 Follow up: Response: No adverse reaction rr5 02:00 Drug: Zithromax 500 mg Route: PO; rr5 03:00 Follow up: Response: No adverse reaction rr5 02:07 Drug: Rocephin 1 grams Route: IV; Rate: per protocol; Site: right antecubital; rv 03:00 Follow up: Response: No adverse reaction; IV Status: Completed infusion; IV Intake: [id number] 02:16 Drug: NS 0.9% 1000 ml Route: IV; Rate: 1 bolus; Site: right forearm; rr5 03:31 Follow up: Response: No adverse reaction; IV Status: Completed infusion; IV Intake: rr5 1000ml Disposition: 05/21/19 02:53 Discharged to Home. Impression: Dyspnea, Other chest pain, Asthma, Bronchitis, not specified as acute or chronic. - Condition is Fair. - Discharge Instructions: Acute Bronchitis, Adult, Asthma, Adult, How to Use an Inhaler, Metered Dose Inhaler with Spacer, Upper Respiratory Infection, Adult, Upper Respiratory Infection, Adult, [id number], Asthma, Adult, Mvxm-ya-Kawn. - Prescriptions for Bromfed DM 2- 30-10 mg/5 mL Oral syrup - take 10 milliliter by ORAL route every 4 hours; 150 milliliter. Prednisone 20 mg Oral Tablet - take 2 tablet by ORAL route once daily for 5 days; 10 tablet. Albuterol Sulfate 90 mcg/actuation - inhale 1-2 puff by INHALATION route every 4-6 hours; 1 Inhaler. Zithromax 500 mg Oral Tablet - take 1 tablet by ORAL route once daily for 4 days; 4 tablet. Bromfed DM 2- 30-10 mg/5 mL Oral syrup - take 10 milliliter by ORAL route every 6 hours; 160 milliliter. - Medication Reconciliation Form, Thank You Letter, Antibiotic Education, Prescription Opioid Use form. - Follow up: Private Physician; When: 2 - 3 days; Reason: Recheck today's complaints, Continuance of care, Re-evaluation by your physician. Follow up: Regan Gonzalez; When: 2 - 3 days; Reason: Recheck today's complaints, Continuance of care, Re-evaluation by your physician. - Problem is new. - Symptoms have improved. Signatures: Dispatcher [employer] EDKY Michael Yuan MD MD cha Davies, Jonathon RN RN Justice Mcdonald RN RN Arnold Perez RN RN rr5 Corrections: (The following items were deleted from the chart) 01:38 01:25 05/21/2019 01:25 Discharged to Home. Impression: Chest pain, unspecified; Cough; atif Dyspnea. Condition is Stable. Forms are Medication Reconciliation Form, Thank You Letter, Antibiotic Education, Prescription Opioid Use. Follow up: Private Physician; When: 2 - 3 days; Reason: Recheck today's complaints, Re-evaluation by your physician. Problem is new. Symptoms have improved. atif 01:58 01:40 TROPONIN (EMERG DEPT USE ONLY)+C.LAB.BRZ ordered. EDKY EDMS 03:32 02:53 05/21/2019 02:53 Discharged to Home. Impression: Dyspnea; Other chest pain; rr5 Asthma; Bronchitis, not specified as acute or chronic. Condition is Fair. Discharge Instructions: Acute Bronchitis, Adult, Asthma, Adult, How to Use an Inhaler, Metered Dose Inhaler with Spacer, Upper Respiratory Infection, Adult, Upper Respiratory Infection, Adult, Nuhn-[id number]-Nbig, Asthma, Adult, [id number]-[id number]. Prescriptions for Pepcid 20 mg Oral Tablet - take 1 tablet by ORAL route every 12 hours for 10 days; 20 tablet, Prednisone 20 mg Oral Tablet - take 2 tablet by ORAL route once daily for 5 days; 10 tablet, Albuterol Sulfate 90 mcg/actuation - inhale 1-2 puff by INHALATION route every 4-6 hours; 1 Inhaler, Bromfed DM 2-30-10 mg/5 mL Oral syrup - take 10 milliliter by ORAL route every 4 hours; 150 milliliter, Prednisone 20 mg Oral Tablet - take 2 tablet by ORAL route once daily for 5 days; 10 tablet, Albuterol Sulfate 90 mcg/actuation - inhale 1-2 puff by INHALATION route every 4-6 hours; 1 Inhaler. and Forms are Medication Reconciliation Form, Thank You Letter, Antibiotic Education, Prescription Opioid Use. Follow up: Private Physician; When: 2 - 3 days; Reason: Recheck today's complaints, Continuance of care, Re-evaluation by your physician. Follow up: Regan Gonzalez; When: 2 - 3 days; Reason: Recheck today's complaints, Continuance of care, Re-evaluation by your physician. Problem is new. Symptoms have improved. [facility]
--- NOTE | 2019-05-21 01:26 | ER ---
Nurse's Notes [facility] Name: Carla Duncan Age: 23 yrs Sex: Female : 1995 Arrival Date: 05/21/2019 Time: 00:11 Bed 5 Private MD: Diagnosis: Dyspnea;Other chest pain;Asthma;Bronchitis, not specified as acute or chronic Presentation: 05/21 00:12 Presenting complaint: Patient states: "my chest has been hurting under my right ribs jd3 and keep coughing. I haven't been able to get sleep or nothing.". Transition of care: patient was not received from another setting of care. Onset of symptoms was May 21, 2019. Risk Assessment: Do you want to hurt yourself or someone else? Patient reports no desire to harm self or others. Initial Sepsis Screen: Does the patient meet any 2 criteria? No. Patient's initial sepsis screen is negative. Does the patient have a suspected source of infection? No. Patient's initial sepsis screen is negative. Care prior to arrival: None. 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 - Social history:: Smoking status: Patient/guardian denies using tobacco. - Ebola Screening: : Patient negative for fever greater than or equal to 101.5 degrees Fahrenheit, and additional compatible Ebola Virus Disease symptoms. - Family history:: not pertinent. Screenin:00 Abuse screen: Denies threats or abuse. Denies injuries from another. Nutritional rr5 screening: No deficits noted. Tuberculosis screening: No symptoms or risk factors identified. Fall Risk Secondary diagnosis (15 points) Total Bradley Fall Scale indicates No Risk (0-24 pts). Assessment: 00:15 General: Appears in no apparent distress. uncomfortable, Behavior is calm. rr5 00:15 Pain: Complains of pain in right chest Pain does not radiate. Pain currently is 8 out rr5 of 10 on a pain scale. Quality of pain is described as aching, Pain began gradually. Neuro: Level of Consciousness is awake, alert, obeys commands, Oriented to person, place, time, situation, Appropriate for age. Cardiovascular: Reports chest pain, Capillary refill < 3 seconds Patient's skin is warm and dry. Respiratory: Reports cough that is Airway is patent Respiratory effort is even, unlabored, Respiratory pattern is regular, agonal. GI: No signs and/or symptoms were reported involving the gastrointestinal system. : No signs and/or symptoms were reported regarding the genitourinary system. EENT: No signs and/or symptoms were reported regarding the EENT system. Derm: Skin Skin temperature is warm. Musculoskeletal: Circulation, motion, and sensation intact. Capillary refill < 3 seconds. 01:15 Reassessment: Patient appears in no apparent distress at this time. complaints of rr5 nausea. ED provider aware with order made and carried out. 01:44 Reassessment: reassess by ED provider with additional orders made and carried out. rr5 discharge order cancelled temporarily. 02:15 Reassessment: Patient appears in no apparent distress at this time. awaiting for CT rr5 result. 03:26 Reassessment: Patient appears in no apparent distress at this time. Patient is alert, rr5 oriented x 3, equal unlabored respirations, skin warm/dry/pink. discharge instruction given and explained without complaints made. verbalized understanding Patient states symptoms have improved. Vital Signs: 00:16 BP 152 / 96; Pulse 122; Resp 20 S; Temp 98.3(O); Pulse Ox 100% on R/A; Weight 80.29 kg jd3 (R); Height 5 ft. 0 in. (152.40 cm) (R); Pain 8/10; 01:00 BP 142 / 85; Pulse 120; Resp 21; Pulse Ox 99% ; rr5 02:10 BP 121 / 79; Pulse 110; Resp 19; Pulse Ox 98% ; rr5 03:28 BP 118 / 71; Pulse 99; Resp 17; Temp 97.9; Pulse Ox 99% ; rr5 00:16 Body Mass Index 34.57 (80.29 kg, 152.40 cm) jd3 ED Course: 00:11 Patient arrived in ED. cf2 00:13 Triage completed. jd3 00:15 Michael Yuan MD is Attending Physician. atif 00:16 Arm band placed on. jd3 00:26 Arnold Hernandez, JUDI is Primary Nurse. rr5 00:30 Initial Neb Treatment Given as ordered Patient was instructed and evaluated on rr5 procedure Patient tolerated procedure well without adverse effect. 00:35 Inserted saline lock: 20 gauge in right forearm, using aseptic technique. Blood rr5 collected. 00:51 Patient has correct armband on for positive identification. Placed in gown. Bed in low rr5 position. Call light in reach. Side rails up X2. telemetry monitor on. Pulse ox on. NIBP on. 01:05 Chest Pa And Lat (2 Views) XRAY In Process Unspecified. EDMS 01:43 No provider procedures requiring assistance completed. Patient maintains SpO2 rr5 saturation greater than 95% on room air. 02:21 CT Chest For PE Angio In Process Unspecified. EDMS 02:53 Regan Gonzalez MD is Referral Physician. atif 03:30 IV discontinued, intact, bleeding controlled, No redness/swelling at site. Pressure rr5 dressing applied. Administered Medications: 00:33 Drug: AtroVENT Aerosol 0.5 mg Route: Inhalation; rr5 02:08 Follow up: Response: No adverse reaction rr5 00:40 Drug: Xopenex 2.5 mg Route: Inhalation; rr5 02:08 Follow up: Response: No adverse reaction rr5 00:51 Drug: NS 0.9% 1000 ml Route: IV; Rate: 1 bolus; Site: right forearm; rr5 03:15 Follow up: Response: No adverse reaction; IV Status: Completed infusion; IV Intake: rr5 1000ml 01:15 Drug: Zofran 4 mg Route: IVP; Site: right forearm; rr5 02:15 Follow up: Response: No adverse reaction rr5 01:21 Drug: SOLU-Medrol 125 mg Route: IVP; Site: right forearm; rr5 02:08 Follow up: Response: No adverse reaction rr5 01:25 Drug: predniSONE 20 mg Route: PO; rr5 02:25 Follow up: Response: No adverse reaction rr5 02:00 Drug: Zithromax 500 mg Route: PO; rr5 03:00 Follow up: Response: No adverse reaction rr5 02:07 Drug: Rocephin 1 grams Route: IV; Rate: per protocol; Site: right antecubital; rv 03:00 Follow up: Response: No adverse reaction; IV Status: Completed infusion; IV Intake: [id number] 02:16 Drug: NS 0.9% 1000 ml Route: IV; Rate: 1 bolus; Site: right forearm; rr5 03:31 Follow up: Response: No adverse reaction; IV Status: Completed infusion; IV Intake: rr5 1000ml Intake: 03:00 IV: 10ml; Total: 10ml. rr5 03:15 IV: 1000ml; Total: 1010ml. rr5 03:31 IV: 1000ml; Total: 2010ml. rr5 Outcome: 01:25 Discharge ordered by . atif 02:53 Discharge ordered by MD. atif 03:30 Discharged to home ambulatory, with family. rr5 03:30 Condition: stable 03:30 Discharge instructions given to patient, Instructed on discharge instructions, follow up and referral plans. medication usage, Demonstrated understanding of instructions, follow-up care, medications, Prescriptions given X 4. 03:32 Patient left the ED. rr5 Signatures: Dispatcher [employer] EDMS Michael Yuan MD MD cha Davies, Jonathon, RN RN Justice Mcdonald RN RN rv Roque, Raymond, RN RN rr5 Irais Ibanez 2
[2019-05-21] MEDS ORDERED: AZITHROMYCIN 250 MG TAB ONE (01:43)
[2019-05-21] MEDS ORDERED: CEFTRIAXONE/SWI 1gm 1 GM/10 ML SYR ONE (01:43)
[2019-05-21 02:11] LABS: Barbiturates NEGATIVE (NEGATIVE); Benzodiazepines NEGATIVE (NEGATIVE); Cocaine NEGATIVE (NEGATIVE); METHAMPHETAM NEGATIVE (NEGATIVE); Methadone NEGATIVE (NEGATIVE); Opiates NEGATIVE (NEGATIVE); Phencyclidine NEGATIVE (NEGATIVE); THC Cannibis NEGATIVE (NEGATIVE)
[2019-05-21 02:44] LABS: Troponin (Emerg Dept Use Only) < 0.02 ng/mL (0.0-0.045)
[2019-05-21 02:46] LABS: Urine Blood 3+ (NEG); Urine Glucose NEGATIVE (NEG); Urine Protein 2+ (NEG); Urine Specific Gravity >1.030 (1.005-1.030)
[2019-05-21 03:44] VITALS: BP 118/71; TEMP 97.9; O2SAT 99
--- NOTE | 2019-05-21 08:13 | RAD REPORT ---
EXAM DESCRIPTION: RAD - Chest Pa And Lat (2 Views) - 05/21/2019 1:07 am CLINICAL HISTORY: CHEST PAIN COMPARISON: April 24 TECHNIQUE: PA and lateral views of the chest were obtained. FINDINGS: The lungs are clear. Heart size is normal and central vasculature is within normal limit s. No pleural effusion or pneumothorax seen. No acute bony finding noted. No aortic abnormality. IMPRESSION: No acute cardiopulmonary process.
--- NOTE | 2019-05-22 09:38 | EKG ---
Test Date: 2019-05-21 Test Time: 00:48:08 Supply Chain Coordinator: JOSE MEASUREMENT RESULTS: Intervals: Rate: 123 AR: 156 QRSD: 76 QT: 314 QTc: 449 Bernie: P: 54 AR: 156 QRS: 71 T: 12 INTERPRETIVE STATEMENTS: Sinus tachycardia Otherwise normal ECG Compared to ECG 04/25/2019 00:20:59 no significant change from previous ECG Electronically Signed On 05-22-19 09:37:48 THERAPIST by Hermann Dumas
--- NOTE | 2019-05-22 11:32 | RAD REPORT ---
EXAM DESCRIPTION: CT - Chest For Pe Angio - 05/21/2019 5:53 am CLINICAL HISTORY: The patient is 23 years old and is Female; Chest pain;Dyspnea TECHNIQUE: Axial computed tomographic angiography images of the chest with intravenous contrast. S agittal and coronal reformatted images were created and reviewed. This CT exam was performed using one or more of the following dose reduction techniques: automated exposure control, adjustment of t he mA and/or kV according to patient size, and/or use of iterative reconstruction technique. MIP reconstructed images were created and reviewed. COMPARISON: No relevant prior studies available. FINDINGS: PULMONARY ARTERIES: There are no obvious filling defects identified within the pulmonary arteries to suggest pulmonary embolism. AORTA: No acute findings. No thoracic aortic aneurysm. LUNGS: Unremarkable. No mass. No consolidation. PLEURAL SPACE: Unremarkable. No significant effusion. No pneumothorax. HEART: Unremarkable. No cardiomegaly. No significant pericardial effusion. No evidence of RV dysfunction. BONES/JOINTS: No acute fracture. No dislocation. SOFT TISSUES: Unremarkable. LYMPH NODES: Multiple calcified right hilar lymph nodes are present. IMPRESSION: No evidence of pulmonary embolism. Electronically signed by: Gabbie Acosta MD 05/21/2019 2:42 AM ENERGY PROJECT ENGINEER Due to temporary technical issues with the PACS/Fluency reporting system, reports are being signed by the in house radiologist as a courtesy to ensure prompt reporting. The interpreting radiologist is f ully responsible for the content of the report.
== END 2019-05-21 03:32 | disposition home or self-care (01) ==
LOC: ER 00:07
DX: J45.909 Unspecified asthma, uncomplicated (principal); R06.00 Dyspnea, unspecified; Z88.5 Allergy status to narcotic agent; Z88.8 Allergy status to other drugs, medicaments and biological substances
CPT/HCPCS: 36415; 71046; 71275; 80053; 80307; 81003; 81025; 84484; 85025; 85379; 93005; 96361; 96365; 96375; 99285; J0696; J2405; J2930; J7030; J7512; Q9967

== ENCOUNTER 2019-07-19 17:07 | Emergency (ER) | payer BC, SELFPAY ==
--- OUTSIDE RECORDS SUMMARY | 2019-07-19 17:09 | XMS REPORT ---
:1995 [facility] Address [address] [place] [address] Care Team Providers Name Role Phone Unavailable Unavailable Unavailable Payers Payer Name Policy Type Policy Number Effective Date Expiration Date Problems This patient has no known problems. Allergies, Adverse Reactions, Alerts Allergy Allergy Status Severity Reaction(s) Onset Inactive Treating Comments Name Type Date Date Clinician morphine DA Active 2018-06 00:00:0 0 codeine DA Active [place] 2018-06 00:00:0 0 tramadol DA Active [place] 2018-05 00:00:0 0 No Known DA Active [...] (test code=PLTMR) NORMAL NORMAL AG HEPATITIS B [id number] 04:15:00 Test Item Value Reference Range Comments AG HEPATITIS B SURFACE (test code=HBSAG) NONREACTIVE NONREACTIVE AB HEPATITIS C [id number] 04:15:00 Test Item Value Reference Range Comments AB HEPATITIS C (test code=HCVAB) NONREACTIVE NONREACTIVE SIGNAL TO CUTOFF (test code=CUTOFF) 0.13 <0.80 RUBELLA [id number] 04:15:00 Test Item Value Reference Range Comments RUBELLA SCREEN (test 70.2 IUnit/ml Results >10.0IUnits/ml are code=RUBSC) considered positive inaccordance with the CLSI guidelines and based on the WHO International Standard for Anti-Rubella serum as anindicator of immune status and a breakpoint to detect mostseropositive persons. AB [id number] 04:15:00 Test Item Value Reference Range Comments AB TREPONEMA (test code=TREPAB) NONREACTIVE NONREACTIVE AG HEPATITIS B [id number] 04:00:00 Test Item Value Reference Range Comments AG HEPATITIS B SURFACE (test code=HBSAG) NONREACTIVE NONREACTIVE AB HEPATITIS C [id number] 04:00:00 Test Item Value Reference Range Comments AB HEPATITIS C (test code=HCVAB) NONREACTIVE SIGNAL TO CUTOFF (test code=CUTOFF) <0.80 RUBELLA [id number] 04:00:00 Test Item Value Reference Range Comments RUBELLA SCREEN (test 70.2 IUnit/ml Results >10.0IUnits/ml are code=RUBSC) considered positive inaccordance with the CLSI guidelines and based on the WHO International Standard for Anti-Rubella serum as anindicator of immune status and a breakpoint to detect mostseropositive persons. AB [id number] 04:00:00 Test Item Value Reference Range Comments AB TREPONEMA (test code=TREPAB) NONREACTIVE NONREACTIVE CBC W/AUTO [id number] 00:36:00 Test Item Value Reference Range Comments [...]
[2019-07-19] MEDS ORDERED: HYDROCODONE/APAP 10/325 TAB ONE (19:00)
--- NOTE | 2019-07-19 19:25 | RAD REPORT ---
EXAM DESCRIPTION: RAD - Elbow Left 3 View - 07/19/2019 7:10 pm CLINICAL HISTORY: Slip and fall, left elbow pain COMPARISON: September 2018 FINDINGS: No fracture is identified and no elevated posterior fat pad. There is no dislocation or pe riosteal reaction noted. No foreign body or other soft tissue abnormality. IMPRESSION: Negative left elbow examination.
[2019-07-19 19:39] LABS: Urine Blood 2+ (NEG); Urine Glucose NEGATIVE (NEG); Urine Protein NEGATIVE (NEG); Urine Specific Gravity 1.015 (1.005-1.030); Urine pH 6.5 (5.0-7.0)
--- NOTE | 2019-07-19 20:16 | ER ---
Nurse's Notes [facility] Name: Carla Duncan Age: 23 yrs Sex: Female : 1995 Arrival Date: 07/19/2019 Time: 17:14 Bed 26 Private MD: Diagnosis: Pain in left elbow Presentation: 07/19 17:54 Presenting complaint: Patient states: slipped and fell in bathroom, fell against tub, iw felt something snap in left arm and is unable to move it normally, c/o pain to left elbow. Transition of care: patient was not received from another setting of care. Onset of symptoms was July 18, 2019. Risk Assessment: Do you want to hurt yourself or someone else? Patient reports no desire to harm self or others. Initial Sepsis Screen: Does the patient meet any 2 criteria? No. Patient's initial sepsis screen is negative. Does the patient have a suspected source of infection? No. Patient's initial sepsis screen is negative. Care prior to arrival: None. 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 - Ebola Screening: : Patient negative for fever greater than or equal to 101.5 degrees Fahrenheit, and additional compatible Ebola Virus Disease symptoms Patient denies exposure to infectious person Patient denies travel to an Ebola-affected area in the 21 days before illness onset No symptoms or risks identified at this time. - Social history:: Smoking status: Patient denies any tobacco usage or history of. Screenin:21 Abuse screen: Denies threats or abuse. Denies injuries from another. Nutritional ca1 screening: No deficits noted. Tuberculosis screening: No symptoms or risk factors identified. Fall Risk None identified. Assessment: 18:21 General: Appears in no apparent distress. comfortable, Behavior is calm, cooperative, ca1 appropriate for age. Pain: Complains of pain in left elbow Pain currently is 8 out of 10 on a pain scale. Neuro: Level of Consciousness is awake, alert, obeys commands, Oriented to person, place, time, situation, Appropriate for age. Derm: Skin is intact, is healthy with good turgor, Skin is pink, warm \T\ dry. Musculoskeletal: Circulation, motion, and sensation intact. Capillary refill < 3 seconds, Range of motion: limited in left elbow. 19:05 Reassessment: Patient appears in no apparent distress at this time. Patient and/or jb4 family updated on plan of care and expected duration. Pain level reassessed. Patient is alert, oriented x 3, equal unlabored respirations, skin warm/dry/pink. 20:25 Reassessment: Patient appears in no apparent distress at this time. Patient and/or jb4 family updated on plan of care and expected duration. Pain level reassessed. Patient is alert, oriented x 3, equal unlabored respirations, skin warm/dry/pink. Vital Signs: 17:56 BP 118 / 64; Pulse 102; Resp 16; Pulse Ox 98% ; Pain 8/10; iw 19:15 BP 133 / 98; Pulse 98; Resp 16; Pulse Ox 100% on R/A; jb4 ED Course: 17:14 Patient arrived in ED. mr 17:55 Triage completed. iw 18:15 Arm band placed on. ca1 18:19 Shanita Gale, RN is Primary Nurse. ca1 18:21 Patient has correct armband on for positive identification. Bed in low position. Call ca1 light in reach. Side rails up X 1. Pulse ox on. NIBP on. Warm blanket given. 18:21 No provider procedures requiring assistance completed. Patient did not have IV access ca1 during this emergency room visit. 18:52 [facility]manuel [facility]-C [facility]. la1 18:52 Hal Watters MD is Attending Physician. la1 19:10 XRAY Elbow LEFT 3 view In Process Unspecified. EDMS Administered Medications: 19:05 Drug: [place] 10 mg-325 mg 1 tabs {Note: Rass score 0.} Route: PO; jb4 20:24 Follow up: Response: No adverse reaction; RASS: Alert and Calm (0) jb4 Outcome: 20:15 Discharge ordered by . la1 20:25 Discharged to home ambulatory, with family. jb4 20:25 Condition: stable 20:25 Discharge instructions given to patient, family, Instructed on discharge instructions, follow up and referral plans. Demonstrated understanding of instructions, follow-up care. 20:26 Patient left the ED. jb4 Signatures: Dispatcher [employer] ADITI Hiram Kathryn head Mary Damian, RN RN iw Amanuel Travis, SHERIFFS OFFICER-C SHERIFFS OFFICER-Cla1 Luther Crump RN RN jb4 Shanita Gale RN RN ca1 Corrections: (The following items were deleted from the chart) 19:22 19:05 Cullen 10 mg-325 mg 1 tabs PO jb4 jb4
--- NOTE | 2019-07-19 20:16 | EDPHYS ---
Physician Documentation [facility] Name: Carla Duncan Age: 23 yrs Sex: Female : 1995 Arrival Date: 07/19/2019 Time: 17:14 Bed 26 Private MD: ED Physician Hal Watters HPI: 07/19 20:57 This 23 yrs old Female presents to ER via Ambulatory with complaints of Fall la1 Injury, Arm Pain. 20:57 Details of fall: The patient fell from an upright position, while standing. Onset: The la1 symptoms/episode began/occurred just prior to arrival. Associated injuries: The patient sustained left elbow. Severity of symptoms: At their worst the symptoms were mild. The patient has not experienced similar symptoms in the past. 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 - Ebola Screening: : Patient negative for fever greater than or equal to 101.5 degrees Fahrenheit, and additional compatible Ebola Virus Disease symptoms Patient denies exposure to infectious person Patient denies travel to an Ebola-affected area in the 21 days before illness onset No symptoms or risks identified at this time. - Social history:: Smoking status: Patient denies any tobacco usage or history of. ROS: 20:59 Constitutional: Negative for fever, chills, and weight loss, Eyes: Negative for injury, la1 pain, redness, and discharge, ENT: Negative for injury, pain, and discharge, Neck: Negative for injury, pain, and swelling, Cardiovascular: Negative for chest pain, palpitations, and edema, Respiratory: Negative for shortness of breath, cough, wheezing, and pleuritic chest pain, Abdomen/GI: Negative for abdominal pain, nausea, vomiting, diarrhea, and constipation, Back: Negative for injury and pain, : Negative for injury, bleeding, discharge, and swelling. 20:59 Skin: Negative for injury, rash, and discoloration, Neuro: Negative for headache, weakness, numbness, tingling, and seizure. 20:59 MS/extremity: Positive for pain, of the left elbow. Exam: 21:00 Constitutional: This is a well developed, well nourished patient who is awake, alert, la1 and in no acute distress. Head/Face: Normocephalic, atraumatic. Eyes: Periorbital areas with no swelling, redness, or edema. ENT: Mucous membranes moist. Chest/axilla: Normal chest wall appearance and motion. Nontender with no deformity. No lesions are appreciated. Cardiovascular: Regular rate and rhythm with a normal S1 and S2. Respiratory: Lungs have equal breath sounds bilaterally, clear to auscultation. Abdomen/GI: Soft, non-tender, with normal bowel sounds. 21:00 Musculoskeletal/extremity: Extremities: noted in the left elbow: pain, tenderness, Pulses: noted to be 3+ in the right radial artery and left radial artery, Perfusion: the extremity is normally perfused throughout, pink, warm, with brisk capillary refill, Sensation intact. Joints: the left elbow displays painful range of motion. Vital Signs: 17:56 BP 118 / 64; Pulse 102; Resp 16; Pulse Ox 98% ; Pain 8/10; iw 19:15 BP 133 / 98; Pulse 98; Resp 16; Pulse Ox 100% on R/A; jb4 MDM: 18:52 Patient medically screened. la1 20:14 Data reviewed: vital signs, nurses notes, lab test result(s), radiologic studies, and la1 as a result, I will discharge patient. Data interpreted: Pulse oximetry: on room air is 100 %. Interpretation: normal. Counseling: I had a detailed discussion with the patient and/or guardian regarding: the historical points, exam findings, and any diagnostic results supporting the discharge/admit diagnosis, radiology results, the need for outpatient follow up, a family practitioner, to return to the emergency department if symptoms worsen or persist or if there are any questions or concerns that arise at home. Special discussion: Based on the history and exam findings, there is no indication for further emergent testing or inpatient evaluation. I discussed with the patient/guardian the need to see the orthopedic surgeon for further evaluation of the symptoms. 07/19 19:14 Order name: Urine Dipstick--Ancillary (enter results); Complete Time: 19:56 bd 07/19 19:14 Order name: Urine --Ancillary (enter results); Complete Time: 19:56 bd 07/19 18:55 Order name: XRAY Elbow LEFT 3 view; Complete Time: 19:56 ca1 07/19 20:16 Order name: Splint; Complete Time: 20:24 la1 Administered Medications: 19:05 Drug: [place] 10 mg-325 mg 1 tabs {Note: Rass score 0.} Route: PO; jb4 20:24 Follow up: Response: No adverse reaction; RASS: Alert and Calm (0) jb4 Disposition: 07/20 08:12 Co-signature as Attending Physician, Hal Watters MD. rn Disposition: 07/19/19 20:15 Discharged to Home. Impression: Pain in left elbow. - Condition is Stable. - Discharge Instructions: Joint Pain, Musculoskeletal Pain, Elbow Contusion. - Medication Reconciliation Form, Thank You Letter form. - Follow up: Private Physician; When: 1 week; Reason: Recheck today's complaints, Re-evaluation by your physician. - Problem is new. - Symptoms have improved. Signatures: Dispatcher [employer] Mary Crews, RN Hal Newman MD MD rn Angy, Amanuel, UTILITIES AND MAINTENANCE SUPERVISOR-C UTILITIES AND MAINTENANCE SUPERVISOR-Cla1 Luther Crump RN RN jb4 Shanita Gale RN RN ca1 Corrections: (The following items were deleted from the chart) 07/19 20:26 20:15 07/19/2019 20:15 Discharged to Home. Impression: Pain in left elbow. Condition is jb4 Stable. Forms are Medication Reconciliation Form, Thank You Letter, Antibiotic Education, Prescription Opioid Use. Follow up: Private Physician; When: 1 week; Reason: Recheck today's complaints, Re-evaluation by your physician. Problem is new. Symptoms have improved. la1
[2019-07-20 02:40] VITALS: BP 133/98; O2SAT 100
== END 2019-07-19 20:26 | disposition home or self-care (01) ==
LOC: ER 17:07
DX: M25.522 Pain in left elbow (principal); Z88.6 Allergy status to analgesic agent; Z88.5 Allergy status to narcotic agent; Z88.8 Allergy status to other drugs, medicaments and biological substances
CPT/HCPCS: 81003; 81025; 99283

== ENCOUNTER 2019-10-12 15:35 | Emergency (ER) | payer BC ==
[2019-10-12 16:55] LABS: Urine Blood NEGATIVE (NEG); Urine Glucose NEGATIVE (NEG); Urine Protein NEGATIVE (NEG); Urine pH 8.5 (5.0-7.0)
--- NOTE | 2019-10-12 17:05 | RAD REPORT ---
EXAM DESCRIPTION: Brandy Moscoso (2 Views)10/12/2019 4:30 pm CLINICAL HISTORY: Cough COMPARISON: 2019 FINDINGS: The lungs appear clear of acute infiltrate. The heart is normal size IMPRESSION: No acute abnormalities displayed
[2019-10-12] MEDS ORDERED: ACETAMINOPHEN 325 MG TABLET ONE (17:11)
[2019-10-12] MEDS ORDERED: NA CHLORIDE 0.9% 1,000 ML ONE (17:18)
[2019-10-12 17:44] LABS: Absolute Lymphocytes (CBC) 2.3 K/uL (0.7-4.9); Basophils % 0.7 % (0-1.3); Hematocrit 43.7 % (36.0-45.0); Lymphocytes % 28.3 % (15.3-44.8); RBC Red Blood Cell Count 4.86 M/uL (3.86-4.86)
[2019-10-12 17:57] LABS: BUN Blood Urea Nitrogen 9 mg/dL (7-18); Bicarbonate 27 mmol/L (21-32); Glucose Level 93 mg/dL (74-106); Magnesium 2.3 mg/dL (1.8-2.4); Potassium 4.1 mmol/L (3.5-5.1); Sodium Level 138 mmol/L (136-145)
--- NOTE | 2019-10-12 18:13 | ER ---
Nurse's Notes [facility] Name: Carla Duncan Age: 24 yrs Sex: Female : 1995 Arrival Date: 10/12/2019 Time: 15:36 Bed 8 Private MD: Diagnosis: Acute upper respiratory infection, unspecified;Chest pain, unspecified Presentation: 10/11 15:47 Chief complaint: Patient states: Fever TMAX 102, body aches, chest pressure and ph productive cough, symptoms began Wednesday, swabbed for flu and Covid-19 on Wednesday, results negative. Coronavirus screen: Surgical mask placed on patient. Patient moved to private room, placed in contact and droplet isolation with eye protection until further assessment. Patient reports a cough. Patient denies shortness of breath or difficulty breathing. Patient reports a measured and/or subjective temperature greater than 100.4F. Patient denies travel on a cruise ship or to a country the [facility] currently lists as an affected area. Patient denies contact with known and/or suspected case of COVID-19. Ebola Screen: No symptoms or risks identified at this time. Initial Sepsis Screen: Does the patient meet any 2 criteria? No. Patient's initial sepsis screen is negative. Does the patient have a suspected source of infection? No. Patient's initial sepsis screen is negative. Risk Assessment: Do you want to hurt yourself or someone else? Patient reports no desire to harm self or others. Onset of symptoms was October 12, 2019. 15:47 Method Of Arrival: Ambulatory ph 15:47 Acuity: VENKATESH 4 ph Triage Assessment: 16:20 General: Appears in no apparent distress. Behavior is calm, cooperative, appropriate vc for age. Pain: Denies pain. 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 - Social history:: Smoking status: Reported history of juuling and/or vaping. Screenin:09 Abuse screen: Denies threats or abuse. Denies injuries from another. Nutritional sv screening: No deficits noted. Tuberculosis screening: No symptoms or risk factors identified. Fall Risk None identified. Assessment: 16:20 General: Appears in no apparent distress. uncomfortable, ill, Behavior is calm, vc cooperative, appropriate for age. 16:20 Pain: Denies pain. Neuro: Level of Consciousness is awake, alert, obeys commands, vc lethargic, Oriented to person, place, time. Cardiovascular: Capillary refill < 3 seconds Patient's skin is warm and dry. Respiratory: Reports shortness of breath at rest cough that is non-productive, persistent Airway is patent Respiratory effort is even, unlabored, Respiratory pattern is regular, symmetrical. GI: No deficits noted. : No deficits noted. 17:20 Reassessment: Patient appears in no apparent distress at this time. No changes from sv previously documented assessment. Patient and/or family updated on plan of care and expected duration. Pain level reassessed. Patient is alert, oriented x 3, equal unlabored respirations, skin warm/dry/pink. 18:30 Reassessment: Patient appears in no apparent distress at this time. No changes from sv previously documented assessment. Patient and/or family updated on plan of care and expected duration. Pain level reassessed. Patient is alert, oriented x 3, equal unlabored respirations, skin warm/dry/pink. 18:43 Pain: vc Vital Signs: 15:47 Temp 98.1; Weight 65.77 kg; Height 5 ft. 0 in. (152.40 cm); ph 17:05 BP 127 / 91; Pulse 111; Resp 20; Pulse Ox 100% ; sv 17:33 BP 113 / 72; Pulse 114; Resp 20; Pulse Ox 100% ; sv 15:47 Body Mass Index 28.32 (65.77 kg, 152.40 cm) ph ED Course: 15:36 Patient arrived in ED. am2 15:37 Michael Dowd PA is PHCP. cp 15:37 Dani Kauffman MD is Attending Physician. cp 15:39 Mindy Allen, JUDI is Primary Nurse. vc 15:49 Triage completed. ph 15:50 Arm band placed on Patient placed in an exam room. ph 16:30 XRAY Chest Pa And Lat (2 Views) In Process Unspecified. EDMS 16:47 Strep Sent. vc 16:47 Influenza Screen (a \T\ B) Sent. vc 17:09 Patient has correct armband on for positive identification. Placed in gown. Bed in low sv position. awake overnight monitor on. Pulse ox on. NIBP on. Door closed. Head of bed elevated. 17:09 Patient maintains SpO2 saturation greater than 95% on room air. sv 17:09 EKG done, by ED staff, reviewed by Michael MADSEN. sv 17:20 Inserted saline lock: 20 gauge in left antecubital area, using aseptic technique. Blood sv collected. Flushed left antecubital with 5 ml normal saline. 17:38 Awaiting re-evaluation by ER provider. sv 18:20 No provider procedures requiring assistance completed. IV discontinued, intact, vc bleeding controlled, No redness/swelling at site. Pressure dressing applied. Administered Medications: 17:08 Drug: Tylenol 650 mg Route: PO; sv 17:33 Follow up: Response: No adverse reaction sv 17:33 Drug: NS 0.9% 1000 ml Route: IV; Rate: 1 bolus; Site: left antecubital; sv Outcome: 18:12 Discharge ordered by MD. cp 18:31 Patient left the ED. ss 18:31 Discharged to home ambulatory. sv 18:31 Condition: stable 18:31 Discharge instructions given to patient, Instructed on discharge instructions, follow up and referral plans. medication usage, Demonstrated understanding of instructions, follow-up care, medications, Prescriptions given X 3. Signatures: Dispatcher [employer] EDSherita Chambers RN RN sv Smirch, Shelby, RN RN ss Hall, Patricia, RN RN ph Page, Corey, PA PA cp Moreno, Amanda am2 Calcote, Vanessa, RN RN vc
--- NOTE | 2019-10-12 18:13 | EDPHYS ---
Physician Documentation [facility] Name: Carla Duncan Age: 24 yrs Sex: Female : 1995 Arrival Date: 10/12/2019 Time: 15:36 Bed 8 Private MD: ED Physician Dani Kauffman HPI: 10/11 15:55 This 24 yrs old Female presents to ER via Ambulatory with complaints of Cough, cp Chest Pressure, General Weakness. 15:55 The patient or guardian reports cough, that is intermittent, with productive sputum. cp Onset: The symptoms/episode began/occurred 3 day(s) ago. Associated signs and symptoms: Pertinent positives: chest pain, with cough, Pertinent negatives: diarrhea, fever, sore throat, vomiting. Patient reports negative test for COVID-19 performed at [facility] 2 days ago. 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 - Social history:: Smoking status: Reported history of juuling and/or vaping. ROS: 16:00 Constitutional: Positive for body aches, Negative for fever, poor PO intake. cp 16:00 ENT: Negative for drainage from ear(s), ear pain, sore throat, difficulty swallowing, cp difficulty handling secretions. 16:00 Neck: Negative for pain with movement, pain at rest, stiffness. 16:00 Cardiovascular: Positive for chest pain, with cough, Negative for edema, palpitations. 16:00 Respiratory: Positive for cough, Negative for 16:00 Abdomen/GI: Negative for abdominal pain, nausea, vomiting, and diarrhea. 16:00 Back: Negative for radiated pain. 16:00 Neuro: Positive for weakness, Negative for headache. 16:00 All other systems are negative. Exam: 16:05 Constitutional: The patient appears in no acute distress, alert, awake, cp non-diaphoretic, non-toxic, well developed, well nourished, obese. 16:05 Head/Face: Normocephalic, atraumatic. cp 16:05 Eyes: Periorbital structures: appear normal, Conjunctiva: normal, no exudate, no injection, Sclera: no appreciated abnormality, Lids and lashes: appear normal, bilaterally. 16:05 ENT: External ear(s): are unremarkable, Ear canal(s): are normal, clear, TM's: dullness, bilaterally, Nose: is normal, Mouth: Lips: moist, Oral mucosa: pink and intact, moist, Posterior pharynx: is normal, airway is patent, no erythema, no exudate. 16:05 Neck: ROM/movement: is normal, is supple, without pain, no range of motions limitations, no meningismus, Lymph nodes: no appreciated lymphadenopathy. 16:05 Chest/axilla: Inspection: normal. 16:05 Cardiovascular: Rate: tachycardic, Rhythm: regular, Heart sounds: murmur, not appreciated, Edema: is not appreciated, JVD: is not appreciated. 16:05 Respiratory: the patient does not display signs of respiratory distress, Respirations: normal, no use of accessory muscles, no retractions, no splinting, no tachypnea, labored breathing, is not present, Breath sounds: are clear throughout, no decreased breath sounds, no stridor, no wheezing. 16:05 Abdomen/GI: Inspection: abdomen appears normal. 16:05 Back: pain, is absent, ROM is normal. 16:05 Skin: no rash present. 17:10 ECG was reviewed by the Attending Physician. cp Vital Signs: 15:47 Temp 98.1; Weight 65.77 kg; Height 5 ft. 0 in. (152.40 cm); ph 17:05 BP 127 / 91; Pulse 111; Resp 20; Pulse Ox 100% ; sv 17:33 BP 113 / 72; Pulse 114; Resp 20; Pulse Ox 100% ; sv 15:47 Body Mass Index 28.32 (65.77 kg, 152.40 cm) ph MDM: 15:41 Patient medically screened. cp 16:00 Differential Diagnosis: Bronchitis Influenza Asthma Exacerbation Viral Syndrome cp Pneumonia. 16:33 Test interpretation: by ED physician or midlevel provider: chest xray negative for cp infiltrates or focal pneumonia. 18:11 Data reviewed: vital signs, nurses notes, lab test result(s), EKG, radiologic studies, cp plain films, and as a result, I will discharge patient. 18:11 Counseling: I had a detailed discussion with the patient and/or guardian regarding: the cp historical points, exam findings, and any diagnostic results supporting the discharge/admit diagnosis, lab results, radiology results, to return to the emergency department if symptoms worsen or persist or if there are any questions or concerns that arise at home. 18:11 Response to treatment: the patient's symptoms have mildly improved after treatment, and cp as a result, I will discharge patient. 10/11 15:54 Order name: Influenza Screen (a \T\ B); Complete Time: 17:28 cp 10/11 15:54 Order name: Strep; Complete Time: 17:28 cp 10/11 16:52 Order name: Urine Dipstick--Ancillary (enter results); Complete Time: 17:28 eb 10/11 16:52 Order name: Urine --Ancillary (enter results); Complete Time: 17:28 eb 10/11 17:10 Order name: CBC with Diff; Complete Time: 18:03 cp 10/11 17:10 Order name: BMP; Complete Time: 18:03 cp 10/11 15:54 Order name: Urine Dipstick-Ancillary (obtain specimen); Complete Time: 16:47 cp 10/11 15:54 Order name: XRAY Chest Pa And Lat (2 Views); Complete Time: 17:28 cp 10/11 17:28 Interpretation: Report reviewed. cp 10/11 16:53 Order name: EKG; Complete Time: 16:53 cp 10/11 17:10 Order name: D-Dimer; Complete Time: 18:03 cp 10/11 18:03 Interpretation: Within normal limits. cp 10/11 17:10 Order name: Magnesium; Complete Time: 18:03 cp 10/11 17:12 Order name: Throat Culture EDMS 10/11 15:54 Order name: Urine Test (obtain specimen); Complete Time: 16:47 cp 10/11 16:53 Order name: EKG - Nurse/Tech; Complete Time: 17:08 cp 10/11 17:10 Order name: IV; Complete Time: 17:33 cp EC:10 Rate is 117 beats/min. Rhythm is regular. [place] interval is normal. QRS interval is cp normal. QT interval is normal. Interpreted by me. Reviewed by me. Administered Medications: 17:08 Drug: Tylenol 650 mg Route: PO; sv 17:33 Follow up: Response: No adverse reaction sv 17:33 Drug: NS 0.9% 1000 ml Route: IV; Rate: 1 bolus; Site: left antecubital; sv Disposition: 18:18 Chart complete. cp Disposition: 10/12/19 18:12 Discharged to Home. Impression: Acute upper respiratory infection, unspecified, Chest pain, unspecified. - Condition is Stable. - Discharge Instructions: Nonspecific Chest Pain, Upper Respiratory Infection, Adult, Viral Respiratory Infection. - Prescriptions for Tessalon Perles 100 mg Oral Capsule - take 2 capsule by ORAL route every 8 hours As needed; 30 capsule. Ibuprofen 800 mg Oral Tablet - take 1 tablet by ORAL route every 8 hours As needed take with food; 30 tablet. Albuterol Sulfate 90 mcg/actuation - inhale 1-2 puff by INHALATION route every 4-6 hours; 1 Inhaler. - Medication Reconciliation Form, Thank You Letter, Antibiotic Education, Prescription Opioid Use form. - Follow up: Private Physician; When: 2 - 3 days; Reason: Worsening of condition. - Problem is new. - Symptoms have improved. Signatures: Dispatcher [employer] Sherita Metzger RN RN sv Smirch, Shelby, RN RN ss Hall, Patricia, RN RN ph Michael Dowd PA PA cp Corrections: (The following items were deleted from the chart) 18:31 18:12 10/12/2019 18:12 Discharged to Home. Impression: Acute upper respiratory ss infection, unspecified; Chest pain, unspecified. Condition is Stable. Forms are Medication Reconciliation Form, Thank You Letter, Antibiotic Education, Prescription Opioid Use. Follow up: Private Physician; When: 2 - 3 days; Reason: Worsening of condition. Problem is new. Symptoms have improved. cp
[2019-10-12 18:53] VITALS: TEMP 98.1
[2019-10-12 18:54] VITALS: O2SAT 100
[2019-10-12 18:55] VITALS: BP 113/72
--- NOTE | 2019-10-13 12:04 | EKG ---
Test Date: 2019-10-12 Test Time: 17:04:48 Weaver Hand: PAT MEASUREMENT RESULTS: Intervals: Rate: 117 CO: 144 QRSD: 70 QT: 312 QTc: 435 [place]: P: 60 CO: 144 QRS: 64 T: 34 INTERPRETIVE STATEMENTS: Sinus tachycardia Biatrial enlargement Abnormal ECG Compared to ECG 05/21/2019 00:48:08 Atrial abnormality now present Electronically Signed On 10-13-19 12:02:56 CDT by Jatin Sandhu
== END 2019-10-12 18:31 | disposition home or self-care (01) ==
LOC: ER 15:35
DX: J06.9 Acute upper respiratory infection, unspecified (principal); R05 Cough; Z88.5 Allergy status to narcotic agent; Z88.8 Allergy status to other drugs, medicaments and biological substances; Z72.0 Tobacco use
CPT/HCPCS: 93005; 87070; 85025; 80048; 36415; 83735; 81025; 85379; 87081; 81003; 87804 ×2; 71046; 99285; J7030

== ENCOUNTER 2019-11-03 10:41 | Emergency (ER) | payer BC ==
--- OUTSIDE RECORDS SUMMARY | 2019-11-03 10:49 | XMS REPORT ---
:1995 Author Organization [facility] t Address [address] [place] [address] Care Team Providers Name Role Phone Unavailable Unavailable Unavailable Payers Payer Name Policy Type Policy Number Effective Date Expiration D ate Problems This patient has no known problems. Allergies, Adverse Reactions, Alerts Allergy Allergy Status Severity Reaction(s) Onset Inactive Treating C omments Name Type Date Date Clinician morphine DA Active 2018-06 00:00:0 0 codeine DA Active NM 2018-06 00:00:0 0 tramadol DA Active NM 2018-05 00:00:0 0 No Known DA Active U 2013-08 Allergies -14 00:00:0 0 Medications This patient has no known medications. Results Test Description Test Time Test Comments Text Results Atomic Results Result Comments CBC W/AUTO DIFF 2018-07-17 07:27:00 Test Item Value Reference Range Comments WHITE BLOOD CELL (test code = WBC) 12.1 K/mm3 6.6-12.1 RED BLOOD CELL (test code = RBC) 3.51 M/mm3 3.45-5.01 HEMOGLOBIN (test code = HGB) 9.6 g/dL 10.7-13.9 HEMATOCRIT (test code = HCT) 30.6 % 32.1-42.1 MEAN CELL VOLUME (test code = MCV) 87 fL 84.1-94.8 MEAN CELL HGB (test code = MCH) 27.4 pg 27-35 MEAN CELL HGB CONCETRATION (test code = MCHC) 31.4 gm/dL 32 .2-34.1 RED CELL DISTRIBUTION WIDTH (test code = RDW) 15.7 % 12 .4-16.5 PLATELET COUNT (test code = PLT) 261 K/mm3 133-385 IMMATURE PLATELET FRACTION (test code = IPF) 0.0 % 0.0 -10.8 MEAN PLATELET VOLUME (test code = MPV) 10.4 fl 9.1-12.7 NEUTROPHIL % (test code = NT%) 65.2 % 56.5-79.4 LYMPHOCYTE % (test code = LY%) 26.9 % 14.3-34.3 MONOCYTE % (test code = MO%) 6.0 % 5.1-10.4 EOSINOPHIL % (test code = EO%) 1.0 % 0.1-3.0 BASOPHIL % (test code = BA%) 0.2 % 0.1-1.0 NEUTROPHIL # (test code = NT#) 7.9 K/mm3 LYMPHOCYTE # (test code = LY#) 3.3 K/mm3 MONOCYTE # (test code = MO#) 0.7 K/mm3 EOSINOPHIL # (test code = EO#) 0.12 K/mm3 BASOPHIL # (test code = BA#) 0.0 K/mm3 RBC MORPHOLOGY REQUIRED (test code = RBCM) NORMAL BO L PLATELET MORPHOLOGY REQUIRED (test code = PLTMR) NORMAL NORMAL AG HEPATITIS B [id number] 04:15:00 Test Item Value Reference Range Comments AG HEPATITIS B SURFACE (test code = HBSAG) NONREACTIVE NONRE ACTIVE AB HEPATITIS C [id number] 04:15:00 Test Item Value Reference Range Comments AB HEPATITIS C (test code = HCVAB) NONREACTIVE NONREACTIVE SIGNAL TO CUTOFF (test code = CUTOFF) 0.13 <0.80 RUBELLA [id number] 04:15:00 Test Item Value Reference Range Comments RUBELLA SCREEN (test 70.2 IUnit/ml Results >10 .0IUnits/ml are code = RUBSC) considered posit jeyson inaccordance with the CLSI gu idelines and based on the WHO International Standard for Ant i-Rubella serum as anindicator o f immune status and a breakpoint to detect mostseropositive persons. AB [id number] 04:15:00 Test Item Value Reference Range Comments AB TREPONEMA (test code = TREPAB) NONREACTIVE NONREACTIVE AG HEPATITIS B [id number] 04:00:00 Test Item Value Reference Range Comments AG HEPATITIS B SURFACE (test code = HBSAG) NONREACTIVE NONRE ACTIVE AB HEPATITIS C [id number] 04:00:00 Test Item Value Reference Range Comments AB HEPATITIS C (test code = HCVAB) NONREACTIVE SIGNAL TO CUTOFF (test code = CUTOFF) <0.80 RUBELLA [id number] 04:00:00 Test Item Value Reference Range Comments RUBELLA SCREEN (test 70.2 IUnit/ml Results >10 .0IUnits/ml are code = RUBSC) considered posit jeyson inaccordance with the CLSI gu idelines and based on the WHO International Standard for Ant i-Rubella serum as anindicator o f immune status and a breakpoint to detect mostseropositive persons. AB [id number] 04:00:00 Test Item Value Reference Range Comments AB TREPONEMA (test code = TREPAB) NONREACTIVE NONREACTIVE CBC W/AUTO [id number] 00:36:00 Test Item Value Reference Range Comments WHITE BLOOD CELL (test code = WBC) 11.2 K/mm3 6.6-12.1 RED BLOOD CELL (test code = RBC) 4.22 M/mm3 3.45-5.01 HEMOGLOBIN (test code = HGB) 11.6 g/dL 10.7-13.9 HEMATOCRIT (test code = HCT) 35.9 % 32.1-42.1 MEAN CELL VOLUME (test code = MCV) 85 fL 84.1-94.8 MEAN CELL HGB (test code = MCH) 27.5 pg 27-35 MEAN CELL HGB CONCETRATION (test code = MCHC) 32.3 gm/dL 32 .2-34.1 RED CELL DISTRIBUTION WIDTH (test code = RDW) 14.8 % 12 .4-16.5 PLATELET COUNT (test code = PLT) 335 K/mm3 133-385 IMMATURE PLATELET FRACTION (test code = IPF) 0.0 % 0.0 -10.8 MEAN PLATELET VOLUME (test code = MPV) 10.5 fl 9.1-12.7 NEUTROPHIL % (test code = NT%) 63.3 % 56.5-79.4 LYMPHOCYTE % (test code = LY%) 27.0 % 14.3-34.3 MONOCYTE % (test code = MO%) 7.4 % 5.1-10.4 EOSINOPHIL % (test code = EO%) 1.3 % 0.1-3.0 BASOPHIL % (test code = BA%) 0.4 % 0.1-1.0 NEUTROPHIL # (test code = NT#) 7.1 K/mm3 LYMPHOCYTE # (test code = LY#) 3.0 K/mm3 MONOCYTE # (test code = MO#) 0.8 K/mm3 EOSINOPHIL # (test code = EO#) 0.15 K/mm3 BASOPHIL # (test code = BA#) 0.0 K/mm3 RBC MORPHOLOGY REQUIRED (test code = RBCM) NORMAL BO L PLATELET MORPHOLOGY REQUIRED (test code = PLTMR) NORMAL NORMAL
--- OUTSIDE RECORDS SUMMARY | 2019-11-03 10:49 | XMS REPORT | Clinical Summary ---
:1995 Author Organization [facility] Address [address] [place] [address] Care Team Providers Name Role Phone Asked, No Pcp Primary Care Provider Unavailable Allergies Active Allergy Reactions Severity Noted Date Comments Butorphanol Tartrate Palpitations Low 06/21/2019 Tramadol Other (See Comments) 03/11/2016 headach e Acetaminophen-Codeine Shortness Of Breath High 03/11/2016 Medications Medication Sig Dispensed Refills Start Date End Date Status ibuprofen (ADVIL) Take 800 mg 0 Active 200 MG tablet by mouth every 6 (six) hours as needed for mild pain. acetaminophen-caff- Take 2 0 Active pyrilamine tablets by 500-60-15 mg tablet mouth. SUMAtriptan Take 1 tablet 9 tablet 0 03/15/2016 Dis continued (IMITREX) 50 MG (50 mg total) 9 (Patient tablet by mouth once Report ed) as needed for migraine for up to 20 doses. NEXPLANON 68 mg 0 04/13/2016 Dis continued implant 9 (Patient Reported) traZODone (DESYREL) 0 04/13/2016 Discontinued 50 MG tablet 9 (Patien t Reported) keTOROlac (TORadol) Take 1 tablet 9 tablet 0 05/10/201706/21 Discontinued 10 mg tablet (10 mg total) 9 (Pa tient by mouth Reported) every 6 (six) hours as needed for moderate pain (do not take with other NSAID) for up to 10 doses. acetaminophen Take 2 30 tablet 0 06/21/2019 Expir ed (TYLENOL EXTRA tablets 0 STRENGTH) 500 MG (1,000 mg tablet total) by mouth every 6 (six) hours as needed for moderate pain for up to 30 days. ondansetron ODT Take 1 tablet 9 tablet 0 06/21/2019 (ZOFRAN ODT) 8 MG (8 mg total) 0 disintegrating by mouth tablet every 8 (eight) hours as needed for nausea or vomiting for up to 30 days. dicyclomine Take 1 tablet 60 tablet 0 06/21/2019 Exp ired (BENTYL) 20 mg (20 mg total) 0 tablet by mouth 2 (two) times a day for 30 days. Active Problems No known active problems Encounters Date Type Specialty Care Team Description 06/21/2019 Emergency Emergency Medicine Lucas eMrchant, Brittani kelley (Primary Dx); Severe dehydrat ion; Lower abdominal pain; Vagina bleeding after 11/02/2018 Family History Medical History Relation Name Comments Diabetes Mother Menstrual problems Mother Relation Name Status Comments Mother Social History Tobacco Use Types Packs/Day Years Used Date Never Smoker Smokeless Tobacco: Never Used Alcohol Use Drinks/Week oz/Week Comments Yes social, weekly Sex Assigned at Date Recorded Not on file Job Start Date Occupation Industry Not on file Not on file Not on file Travel History Travel Start Travel End No recent travel history available. Last Filed Vital Signs Vital Sign Reading Time Taken Comments Blood Pressure 123/81 06/21/2019 3:44 PM [facility] [employer] Pulse 119 06/21/2019 3:44 PM [employer] Temperature 36.2 C (97.1 F) 06/21/2019 3:44 PM [employer] Respiratory Rate 18 06/21/2019 3:44 PM [employer] Oxygen Saturation 99% 06/21/2019 3:44 PM [employer] Inhaled Oxygen Concentration - - Weight 80.3 kg (177 lb) 06/21/2019 4:57 PM [employer] Height 152.4 cm (5') 06/21/2019 4:57 PM [employer] Body Mass Index 34.57 06/21/2019 4:57 PM [employer] Plan of Treatment Health Maintenance Due Date Last Done Comments CERVICAL CANCER SCREENING 09/17/2015 INFLUENZA VACCINE 01/27/2020 Procedures Procedure Name Priority Date/Time Associated Comments Diagnosis US PELVIC TRANSVAGINAL STAT 06/21/2019 4:58 R esults for this PM [employer] procedure are i n the results section. US PELVIC STAT 06/21/2019 4:58 Results for this TRANSABDOMINAL PM [employer] procedure are in the results section. ESTIMATED GFR STAT 06/21/2019 4:07 Results fo r this PM [employer] procedure are i n the results section. COMPREHENSIVE METABOLIC STAT 06/21/2019 4:07 Results for this PANEL PM [employer] procedure are i n the results section. HC COMPLETE BLD COUNT STAT 06/21/2019 4:07 Re sults for this W/AUTO DIFF PM [employer] procedure are i n the results section. GRAM STAIN STAT 06/21/2019 3:59 Results for this PM [employer] procedure are i n the results section. URINE CULTURE STAT 06/21/2019 3:59 Results fo r this PM [employer] procedure are i n the results section. HCG QUALITATIVE, URINE STAT 06/21/2019 3:53 R esults for this SCREEN PM [employer] procedure are i n the results section. URINALYSIS STAT 06/21/2019 3:53 Results for this PM [employer] procedure are i n the results section. after 11/02/2018 Results US Pelvic Transabdominal (06/21/2019 4:58 PM [employer] IN[employer]) Specimen Narrative Performed At EXAMINATIONS: [facility] US PELVIC TRANSABDOMINAL US PELVIC TRANSVAGINAL CLINICAL HISTORY: vag bleeding COMPARISON: None available TECHNIQUE:Transabdominal and endovaginal sonographic i mages of the pelvis were obtained. Grayscale, color Doppler, and sp ectral waveform analysis of the ovarian vessels was perf ormed. IMPRESSION: The uterus measures 8.6 x 4.7 x 4.1 cm. The endometr ial stripe measures 0.8. No discrete mass lesions a re seen. The right ovary measures 2.9 x 1.8 x 2.1 cm. Normal Do ppler flow was present. Small physiologic follicles are present. The left ovary measures 2.5 x 1.6 x 1.5 cm. Normal Dop pler flow was present. Small physiologic follicles are present. No fluid was demonstrated within the pel ayanna cul-de-sac. [id number] Procedure Note Interface, Radiology Results Incoming - 06/21/2019 5:05 PM [employer] [employer] EXAMINATIONS: US PELVIC TRANSABDOMINAL US PELVIC TRANSVAGINAL CLINICAL HISTORY: vag bleeding COMPARISON: None available TECHNIQUE:Transabdominal and endovaginal sonographic images of the pelvis were obtained. Grayscale, color Doppler, and spectral waveform analysis of the ovarian vessels was performed. IMPRESSION: The uterus measures 8.6 x 4.7 x 4.1 cm. The endometrial stripe measures 0.8. No discrete mass lesions are seen. The right ovary measures 2.9 x 1.8 x 2.1 cm. Normal Doppler flow was present. Small physiologic follicles are present. The left ovary measures 2.5 x 1.6 x 1.5 cm. Normal Doppler flow was present. Small physiologic follicles are present. No fluid was demonstrated within the pel ayanna cul-de-sac. [id number] Performing Organization Address City/State/Zipcode Phone Number [facility] [address] [place] [address] US Pelvic Transvaginal (06/21/2019 4:58 PM [employer] INSTALLER) Specimen Narrative Performed At EXAMINATIONS: [facility] US PELVIC TRANSABDOMINAL US PELVIC TRANSVAGINAL CLINICAL HISTORY: vag bleeding COMPARISON: None available TECHNIQUE:Transabdominal and endovaginal sonographic i mages of the pelvis were obtained. Grayscale, color Doppler, and sp ectral waveform analysis of the ovarian vessels was perf ormed. IMPRESSION: The uterus measures 8.6 x 4.7 x 4.1 cm. The endometr ial stripe measures 0.8. No discrete mass lesions a re seen. The right ovary measures 2.9 x 1.8 x 2.1 cm. Normal Do ppler flow was present. Small physiologic follicles are present. The left ovary measures 2.5 x 1.6 x 1.5 cm. Normal Dop pler flow was present. Small physiologic follicles are present. No fluid was demonstrated within the pel ayanna cul-de-sac. [id number] Procedure Note Interface, Radiology Results Incoming - 06/21/2019 5:05 PM [employer] [employer] EXAMINATIONS: US PELVIC TRANSABDOMINAL US PELVIC TRANSVAGINAL CLINICAL HISTORY: vag bleeding COMPARISON: None available TECHNIQUE:Transabdominal and endovaginal sonographic images of the pelvis were obtained. Grayscale, color Doppler, and spectral waveform analysis of the ovarian vessels was performed. IMPRESSION: The uterus measures 8.6 x 4.7 x 4.1 cm. The endometrial stripe measures 0.8. No discrete mass lesions are seen. The right ovary measures 2.9 x 1.8 x 2.1 cm. Normal Doppler flow was present. Small physiologic follicles are present. The left ovary measures 2.5 x 1.6 x 1.5 cm. Normal Doppler flow was present. Small physiologic follicles are present. No fluid was demonstrated within the pel ayanna cul-de-sac. [id number] Performing Organization Address City/State/Zipcode Phone Number [facility] [address] [place] [address] Estimated GFR (06/21/2019 4:07 PM [employer]) Estimated GFR >=90 mL/min/1.73 [facility] Comment: m2 [facility] Units Interpretation [facility] G1 >=90 Normal or high CENTER G2 60-89 Mildly decreased G3a 45-59 Mildly to moderately decreas ed G3b 30-44 Moderately to severely decre ased G4 15-29 Severely decreased G5 <15 Kidney failure The eGFR was calculated using the Chronic Kidney Disea se Epidemiology Collaboration (CKD-EPI) equation. Interpretation is based on recommendations of the National Kidney Foundation-Kidney Disease Outcomes Jose lity Initiative (NKF-KDOQI) published in 2014. Specimen Plasma specimen Performing Organization Address City/[facility]/Zipcode Phone Number DEPARTMENT OF PATHOLOGY AND [address] [place] [phone] [facility], [facility] [address] [place] [address] EMERGENCY CARE CENTER CBC with platelet and differential (06/21/2019 4:07 PM [employer]ER) Pathologist Sig nature WBC 9.58 4.50 - 11.00 k/uL [facility] EMERGENCY [facility] RBC 4.75 4.20 - 5.50 m/uL [facility] HGB 14.3 12.0 - 16.0 g/dL [facility] EMERGENCY [facility] HCT 42.2 37.0 - 47.0 % [facility] MCV 88.8 82.0 - 100.0 fL [facility] MCH 30.1 27.0 - 34.0 pg [facility] MCHC 33.9 31.0 - 37.0 g/dL [facility] RDW - SD 44.0 37.0 - 55.0 fL [facility] MPV 9.4 8.8 - 13.2 fL [facility] Platelet count 463 (H) 150 - 400 k/uL [facility] Neutrophils 57.1 39.0 - 69.0 % [facility] Lymphocytes 33.4 25.0 - 45.0 % [facility] Monocytes 8.5 0.0 - 10.0 % [facility] Eosinophils 0.6 0.0 - 5.0 % [facility] Basophils 0.4 0.0 - 1.0 % [facility] Specimen Blood Performing Organization Address City/State/Zipcode Phone Number DEPARTMENT OF PATHOLOGY AND [id number] [place] [phone] [facility], [facility] [address] [place] [address] EMERGENCY [facility] Comprehensive metabolic panel (06/21/2019 4:07 PM [employer] INSTALLER) Pathologist Sig nature Sodium 138 128 - 145 mEq/L [facility] Potassium 4.2 3.6 - 5.1 mEq/L [facility] CO2 25 18 - 33 mEq/L [facility] Chloride 106 98 - 108 mEq/L [facility] Glucose 96 73 - 118 mg/dL [facility] Calcium 9.1 8.0 - 10.3 mg/dL [facility] BUN 10 7 - 22 mg/dL [facility] Creatinine 0.7 0.5 - 0.9 mg/dL [facility] Alkaline phosphatase 63 42 - 141 U/L [facility] ALT 24 10 - 47 U/L [facility] AST 16 11 - 38 U/L [facility] Total bilirubin 0.6 0.2 - 1.6 mg/dL [facility] Albumin 4.6 3.3 - 5.5 g/dL [facility] Protein 7.7 6.4 - 8.1 g/dL [facility] Anion gap 7@ANIO 7 - 15 mEq/L [facility] A/G ratio 1.5 0.7 - 3.8 [facility] Specimen Plasma specimen Performing Organization Address City/[facility] Cent[facility] Phone Number DEPARTMENT OF PATHOLOGY AND [address] [place], [place] [address] [facility] [address] [place] [address] EMERGENCY CARE CENTER Gram stain (06/21/2019 3:59 PM [employer] INSTALLER) Gram stain result No WBC's or organisms seen. [facility] Comment: HOSPITAL Specimen Information Specimen Source: Urine Specimen Site: Urine, clean catch Specimen Urine - Urine, clean catch Performing Organization Address City/[facility] Cent[facility]ode Phone Number [facility] DEPARTMENT OF PATHOLOGY AND [address] [place] [address] [phone] [address] Urine culture (06/21/2019 3:59 PM [employer] INSTALLER) Urine culture Mixed buddy 10-5 col/cc [facility] isolate Comment: HOSPITAL Specimen Information Specimen Source: Urine Specimen Site: Urine, clean catch Specimen Urine - Urine, clean catch Performing Organization Address [facility] Phone Number [facility] DEPARTMENT OF PATHOLOGY AND [address] [place] [address] [phone] [address] Urinalysis (06/21/2019 3:53 PM [employer] INSTALLER) Glucose, UA Negative Negative [facility] Bilirubin, UA Footnote Negative [facility] Comment: EPISCOPAL Unable to report due to interference from color of uri [place]. [facility] Corrected result; previously reported as [email or web address] on 06/21/2019 at 16:13 EMERGENCY CARE by [facility] Ketones, UA Negative Negative [facility] Specific gravity, 1.015 1.001 - 1.035 [facility] Blood, UA Large (A) Negative [facility] pH, UA 8.5 5.0 - 8.5 [facility] Protein, UA 3+ (A) Negative [facility] Urobilinogen, UA <2.0 <2.0 [facility] Nitrite, UA Negative Negative [facility] Leukocyte Footnote Negative [facility] esterase, UA Comment: EPISCOPAL Unable to report due to interference from color of uri [place]. [facility] Corrected result; previously reported as Trace o n 06/21/2019 at 16:13 [place] [facility] Color, UA Red [facility] Appearance, UA Clear [facility] Specimen Urine Performing Organization Address City/State/Zipcode Phone Number DEPARTMENT OF PATHOLOGY AND [id number] [place] [phone] [place] [address] EMERGENCY [facility] hCG qualitative, urine screen (06/21/2019 3:53 PM [employer] INSTALLER) hCG qualitative, Negative [facility] urine Comment: [facility] Sensitivity of HCG test: 25 mIU/mL [facility] Negative test results in patients suspected CENTER to be should be retested with a sample obtained 48-72 hours later, or by performing a quantitative assay. Specimen Urine Performing Organization Address City/[facility] Centercode Phone Number DEPARTMENT OF PATHOLOGY AND [address] [place] [address] [address] [place] [address] EMERGENCY CARE CENTER after 11/02/2018 Insurance Payer Benefit Plan / Subscriber ID Effective Dates Phone Addre ss Type Group MEDICAID MEDICAID xxxxxxxxx 2016-Present Med Mono[employer] [facility] xxxxxxxxx 2016-Presen HMO CHOICE [facility]/STAR JOB[employer] t CIGNA CIGNA OPEN xxxxxxxxxxx 2016-Present HMO ACCESS/NETWORK BCBS BCBS CHOICE xxxxxxxxx 2019-Prese P PO PPO/FEDERAL nt EMPL PPO BCBS BCBS CHOICE xxxxxxxxxxxx 2019-Presen PPO PPO/FEDERAL t EMPL PPO Advance Directives For more information, please contact: [phone] Type Date Recorded Patient Staffing Coordinator Explanati on Advance Directives, Living Will and Medical Power of Destination Specialist
[2019-11-03] MEDS ORDERED: NA CHLORIDE 0.9% 1,000 ML ONE (11:18)
[2019-11-03] MEDS ORDERED: activated charcoaL 25 GM/120 ML TUBE ONE (11:23)
[2019-11-03] MEDS ORDERED: ACT CHARCOAL/SORB 50 GM/240ML ONE (11:25)
[2019-11-03] MEDS ORDERED: MAGNESIUM SULFATE 1 gm IVPB 1 GM/100 ML BAG IV ONE (11:39)
[2019-11-03 11:40] LABS: Absolute Lymphocytes (CBC) 1.5 K/uL (0.7-4.9); Basophils % 0.7 % (0-1.3); Hematocrit 41.1 % (36.0-45.0); Lymphocytes % 25.9 % (15.3-44.8); MPV 7.8 fL (7.6-11.3); RBC Red Blood Cell Count 4.62 M/uL (3.86-4.86)
--- NOTE | 2019-11-03 11:55 | EDPHYS ---
Physician Documentation [facility] Name: Carla Duncan Age: 24 yrs Sex: Female : 1995 Arrival Date: 11/03/2019 Time: 10:48 Bed 2 Private MD: ED Physician Michael Yuan HPI: 11/02 11:01 This 24 yrs old Female presents to ER via EMS with complaints of Suicidal atif Ideation. 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 Onset: The symptoms/episode began/occurred 1 hour(s) ago. Past psychiatric history: Prior diagnosis: depression. Associated signs and symptoms: Pertinent positives; depression. Severity of symptoms: At their worst the symptoms were mild moderate in the emergency department the symptoms are unchanged. The patient has not experienced similar symptoms in the past. 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 - Social history:: Smoking status: Reported history of juuling and/or vaping. - Family history:: not pertinent. ROS: 11:03 Constitutional: Negative for fever, chills, and weight loss, Eyes: Negative for injury, atif pain, redness, and discharge, ENT: Negative for injury, pain, and discharge, Neck: Negative for injury, pain, and swelling, Cardiovascular: Negative for chest pain, palpitations, and edema, Respiratory: Negative for shortness of breath, cough, wheezing, and pleuritic chest pain, Abdomen/GI: Negative for abdominal pain, nausea, vomiting, diarrhea, and constipation, Back: Negative for injury and pain, : Negative for injury, bleeding, discharge, and swelling, MS/Extremity: Negative for injury and deformity, Skin: Negative for injury, rash, and discoloration, Neuro: Negative for headache, weakness, numbness, tingling, and seizure, Allergy/Immunology: Negative for hives, rash, and allergies, Endocrine: Negative for neck swelling, polydipsia, polyuria, polyphagia, and marked weight changes, Hematologic/Lymphatic: Negative for swollen nodes, abnormal bleeding, and unusual bruising. 11:03 Psych: Positive for depression, suicide gesture, suicidal ideation. Exam: 11:03 Constitutional: This is a well developed, well nourished patient who is awake, alert, atif and in no acute distress. Head/Face: Normocephalic, atraumatic. Eyes: Pupils equal round and reactive to light, extra-ocular motions intact. Lids and lashes normal. Conjunctiva and sclera are non-icteric and not injected. Cornea within normal limits. Periorbital areas with no swelling, redness, or edema. ENT: Nares patent. No nasal discharge, no septal abnormalities noted. Tympanic membranes are normal and external auditory canals are clear. Oropharynx with no redness, swelling, or masses, exudates, or evidence of obstruction, uvula midline. Mucous membranes moist. Neck: Trachea midline, no thyromegaly or masses palpated, and no cervical lymphadenopathy. Supple, full range of motion without nuchal rigidity, or vertebral point tenderness. No Meningismus. Chest/axilla: Normal chest wall appearance and motion. Nontender with no deformity. No lesions are appreciated. Cardiovascular: Regular rate and rhythm with a normal S1 and S2. No gallops, murmurs, or rubs. Normal PMI, no JVD. No pulse deficits. Respiratory: Lungs have equal breath sounds bilaterally, clear to auscultation and percussion. No rales, rhonchi or wheezes noted. No increased work of breathing, no retractions or nasal flaring. Abdomen/GI: Soft, non-tender, with normal bowel sounds. No distension or tympany. No guarding or rebound. No evidence of tenderness throughout. Back: No spinal tenderness. No costovertebral tenderness. Full range of motion. Skin: Warm, dry with normal turgor. Normal color with no rashes, no lesions, and no evidence of cellulitis. MS/ Extremity: Pulses equal, no cyanosis. Neurovascular intact. Full, normal range of motion. Psych: Awake, alert, with orientation to person, place and time. Behavior, mood, and affect are within normal limits. 11:03 Neuro: Orientation: is normal, appropriate for stated age, no acute changes, Mentation: is normal, appropriate for stated age, no acute changes, Memory: is normal, appropriate for stated age, no acute changes, Cranial nerves: grossly normal, is grossly normal based on the patient's age, no acute changes, Cerebellar function: is grossly normal, is grossly normal based on the patient's age, no acute changes, Motor: is normal, is grossly normal based on the patient's age, no acute changes, moves all fours, Sensation: is normal, no obvious gross deficits, appropriate no acute changes, Gait: not tested. Deep tendon reflexes are 2+ (normal) in the bilateral brachioradialis, bicep, tricep and patellar and Achilles tendons, Babinski testing is normal, seizure activity, is not displayed by the patient. 15:57 ECG was reviewed by the Attending Physician. atif Vital Signs: 10:49 BP 126 / 88; Pulse 97; Resp 18 S; Temp 97.3(TE); Pulse Ox 99% on R/A; Weight 83.46 kg ca1 (R); Height 5 ft. (152.40 cm) (R); Pain 0/10; 11:15 BP 117 / 78; Pulse 98; Resp 12; Temp 97.1(TE); Pulse Ox 98% on R/A; mh5 11:30 BP 109 / 63; Pulse 95; Resp 13; Temp 97.5(TE); Pulse Ox 98% on R/A; mh5 11:45 BP 105 / 69; Pulse 91; Resp 13; Pulse Ox 97% on R/A; mh5 12:00 BP 102 / 68; Pulse 94; Resp 13 S; Pulse Ox 97% on R/A; ca1 12:00 BP 98 / 61; Pulse 90; Resp 12; Pulse Ox 98% ; mh5 12:15 BP 100 / 67; Pulse 92; Resp 12; Pulse Ox 98% on R/A; mh5 12:30 BP 97 / 64; Pulse 90; Resp 12; Pulse Ox 97% on R/A; mh5 12:45 BP 99 / 60; Pulse 91; Resp 12; Pulse Ox 97% on R/A; mh5 13:00 BP 99 / 65; Pulse 98; Resp 13; Pulse Ox 96% on R/A; mh5 13:15 BP 98 / 74; Pulse 91; Resp 12; Pulse Ox 96% ; mh5 13:30 BP 94 / 62; Pulse 96; Resp 12; Pulse Ox 96% on R/A; mh5 13:45 BP 95 / 63; Pulse 93; Resp 12; Pulse Ox 96% ; mh5 14:00 BP 95 / 58; Pulse 88; Resp 12; Pulse Ox 98% on R/A; mh5 14:15 BP 87 / 53; Pulse 94; Resp 14; Pulse Ox 98% on R/A; mh5 14:30 BP 90 / 55; Pulse 98; Resp 14; Pulse Ox 98% on R/A; mh5 14:45 BP 94 / 49; Pulse 97; Resp 16; Pulse Ox 96% ; mh5 15:00 BP 102 / 63; Pulse 107; Resp 14; Pulse Ox 97% on R/A; mh5 15:15 BP 98 / 60; Pulse 110; Resp 12; Pulse Ox 98% on R/A; mh5 15:30 BP 104 / 66; Pulse 116; Resp 12; Pulse Ox 98% on R/A; mh5 15:45 BP 96 / 62; Pulse 103; Resp 15; Pulse Ox 98% on R/A; mh5 16:00 BP 99 / 62; Pulse 104; Resp 14; Pulse Ox 96% on R/A; mh5 10:49 Body Mass Index 35.93 (83.46 kg, 152.40 cm) ca1 MDM: 10:[address] [facility] 11:05 Data reviewed: vital signs, nurses notes, lab test result(s), EKG. [facility] 11:06 Differential diagnosis: depression. Data interpreted: judge clerk: rate is 97 atif beats/min, Pulse oximetry: on room air is 99 %. Test interpretation: by ED physician or midlevel provider: ECG, plain radiologic studies. Counseling: I had a detailed discussion with the patient and/or guardian regarding: the historical points, exam findings, and any diagnostic results supporting the discharge/admit diagnosis, lab results. 11:58 ED course: pt depressed, hx of bipolar do, wants help on a voluntary basis, pt stable. atif 15:57 Counseling: I had a detailed discussion with the patient and/or guardian regarding: the atif need to transfer to another facility, for higher level of care. ED course: pt remains stable, awaits transfer. 11/02 11:01 Order name: Acetaminophen; Complete Time: 12:50 [facility] 11/02 11:01 Order name: Basic Metabolic Panel; Complete Time: 12:50 [facility] 11/02 11:01 Order name: CBC with Diff; Complete Time: 11:53 [facility] 11/02 11:01 Order name: ETOH Level; Complete Time: 12:50 [facility] 11/02 11:01 Order name: Hepatic Function; Complete Time: 12:50 [facility] 11/02 11:01 Order name: PT-INR; Complete Time: 11:53 [facility] 11/02 11:01 Order name: Ptt, Activated; Complete Time: 11:53 [facility] 11/02 11: Order name: Salicylate; Complete Time: 12:50 [facility] 11/02 11:01 Order name: Urine Drug Screen [facility] 11/02 11:16 Order name: Magnesium; Complete Time: 11:53 [facility] 11/02 11:33 Order name: Urine Dipstick--Ancillary (enter results); Complete Time: 12:50 11/02 11:33 Order name: Urine --Ancillary (enter results); Complete Time: 12:50 11/02 11:01 Order name: Urine Test (obtain specimen); Complete Time: 11:14 [facility] 11/02 11:01 Order name: EKG; Complete Time: 11:02 [facility] 11/02 11:01 Order name: EKG - Nurse/Tech; Complete Time: 11:10 [facility] 11/02 11:01 Order name: IV Saline Lock; Complete Time: 11:10 [facility] 11/02 11:01 Order name: Labs collected and sent; Complete Time: 11:14 [facility] 11/02 11:01 Order name: Urine Dipstick-Ancillary (obtain specimen); Complete Time: 11:14 [facility] 11/02 11:01 Order name: Misc. Order: please call control; Complete Time: 11:02 [facility] EC:57 Rate is 100 beats/min. Rhythm is regular. QRS [place] is Normal. GA interval is normal. [facility] QRS interval is normal. QT interval is normal. No Q waves. T waves are Normal. No ST changes noted. Clinical impression: NSR w/ Non-specific ST/T Changes and No evidence of ischemia. Interpreted by me. Reviewed by me. Administered Medications: 11:14 Drug: NS 0.9% 1000 ml Route: IV; Rate: 1 bolus; Site: right antecubital; ca1 12:10 Follow up: Response: No adverse reaction; IV Status: Completed infusion ca1 11:15 Drug: Charcoal Suspension 80 grams Route: PO; ca1 12:00 Follow up: Response: No adverse reaction ca1 11:36 Drug: Magnesium Sulfate 1 grams Route: IVPB; Infused Over: 1 hrs; Site: right ca1 antecubital; 12:30 Follow up: Response: No adverse reaction; IV Status: Completed infusion ca1 Disposition: 11/03/19 11:55 Transfer ordered to Psych Facility. Diagnosis are Suicidal ideations, Suicide attempt, Major depressive disorder, recurrent - overdose Seroquel and Benzodiazapines. - Reason for transfer: Higher level of care. - Accepting physician is to psych, voluntary. - Condition is Fair. - Problem is new. - Symptoms have improved. Critical care time excluding procedures: 15:57 Critical care time: Bedside Care: 25 minutes. Total time: 25 minutes atif Signatures: Dispatcher [employer] EDMichael Locke MD MD cha Acob, Cheryl RN RN ca1 Corrections: (The following items were deleted from the chart) 16:12 11:55 11/03/2019 11:55 Transfer ordered to Psych Facility. Diagnosis is Suicidal ca1 ideations; Suicide attempt; Major depressive disorder, recurrent - overdose Seroquel and Benzodiazapines. Reason for transfer: Higher level of care. Accepting physician is to psych, voluntary. Condition is Fair. Problem is new. Symptoms have improved. atif
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
[2019-11-03 12:06] LABS: ALT/SGPT 21 U/L (12-78); Albumin 3.8 g/dL (3.4-5.0); Alkaline Phosphatase 65 U/L (45-117); BUN Blood Urea Nitrogen 15 mg/dL (7-18); Bicarbonate 26 mmol/L (21-32); Bilirubin Direct 0.1 mg/dL (0-0.2); Bilirubin Total 0.3 mg/dL (0.2-1.0); Glucose Level 95 mg/dL (74-106); Potassium 3.9 mmol/L (3.5-5.1); Protein, Total 7.6 g/dL (6.4-8.2); Sodium Level 139 mmol/L (136-145)
[2019-11-03 12:08] LABS: AST/SGOT < 3 U/L (15-37)
[2019-11-03 12:44] LABS: Urine Blood 1+ (NEG); Urine Glucose NEGATIVE (NEG); Urine Protein NEGATIVE (NEG)
[2019-11-03 16:31] VITALS: TEMP 97.5
[2019-11-03 16:46] LABS: Barbiturates NEGATIVE (NEGATIVE); Benzodiazepines POSITIVE (NEGATIVE); Cocaine NEGATIVE (NEGATIVE); METHAMPHETAM NEGATIVE (NEGATIVE); Methadone NEGATIVE (NEGATIVE); Opiates NEGATIVE (NEGATIVE); Phencyclidine NEGATIVE (NEGATIVE); THC Cannibis NEGATIVE (NEGATIVE)
[2019-11-03 16:56] VITALS: BP 99/62; O2SAT 96
--- NOTE | 2019-11-03 17:05 | EKG ---
Test Date: 2019-11-03 Test Time: 10:49:56 Analytics Analyst: ANDIE MEASUREMENT RESULTS: Intervals: Rate: 100 DE: 160 QRSD: 78 QT: 364 QTc: 469 [place]: P: 56 DE: 160 QRS: 13 T: 23 INTERPRETIVE STATEMENTS: Normal sinus rhythm Possible Left atrial enlargement Cannot rule out Anterior infarct, age undetermined Abnormal ECG Compared to ECG 10/12/2019 17:04:48 Myocardial infarct finding now present Sinus tachycardia no longer present Electronically Signed On 11-03-19 17:04:22 CDT by Jatin Sandhu
== END 2019-11-03 16:12 ==
LOC: ER 10:41
DX: T42.4X2A Poisoning by benzodiazepines, intentional self-harm, initial encounter (principal); F33.9 Major depressive disorder, recurrent, unspecified; Z88.5 Allergy status to narcotic agent; Z88.8 Allergy status to other drugs, medicaments and biological substances
CPT/HCPCS: 96365; 93005; 85025; 80048; 36415; 80320; 83735; 80329 ×2; 81025; 85610; 80076; 80307 ×8; 85730; 81003; 99285; J3475; J7030

== ENCOUNTER 2019-11-17 03:39 | Emergency (ER) | payer BC ==
--- OUTSIDE RECORDS SUMMARY | 2019-11-17 03:41 | XMS REPORT | Clinical Summary ---
:1995 Author Organization [facility] Address [address] [place] [address] Care Team Providers Name Role Phone Asked, [...] Team Description 06/21/2019 Emergency Emergency Medicine Lucas Merchant, Brittani kelley (Primary Dx); Severe dehydrat ion; Lower abdominal pain; Vagina bleeding after 11/16/2018 Family History Medical History Relation Name Comments [...] Comments Blood Pressure 123/81 06/21/2019 3:44 PM [facility]TER Pulse 119 06/21/2019 3:44 PM [facility]TER Temperature 36.2 C (97.1 F) 06/21/2019 3:44 PM [facility]TER Respiratory Rate 18 06/21/2019 3:44 PM [facility]TER Oxygen Saturation 99% 06/21/2019 3:44 PM [facility]TER Inhaled Oxygen Concentration - - Weight 80.3 kg (177 lb) 06/21/2019 4:57 PM [facility]TER Height 152.4 cm (5') 06/21/2019 4:57 PM [facility]TER Body Mass Index 34.57 06/21/2019 4:57 PM [facility]TER Plan of Treatment Health Maintenance Due Date Last Done Comments CERVICAL CANCER SCREENING 09/17/2015 INFLUENZA VACCINE 01/27/2020 Procedures Procedure Name Priority Date/Time Associated Comments Diagnosis US PELVIC TRANSVAGINAL STAT 06/21/2019 4:58 R esults for this PM [facility] procedure are i n the results section. US PELVIC STAT 06/21/2019 4:58 Results for this TRANSABDOMINAL PM [facility] procedure are in the results section. ESTIMATED GFR STAT 06/21/2019 4:07 Results fo r this PM [facility] procedure are i n the results section. COMPREHENSIVE METABOLIC STAT 06/21/2019 4:07 Results for this PANEL PM [facility] procedure are i n the results section. HC COMPLETE BLD COUNT STAT 06/21/2019 4:07 Re sults for this W/AUTO DIFF PM [facility] procedure are i n the results section. GRAM STAIN STAT 06/21/2019 3:59 Results for this PM [facility] procedure are i n the results section. URINE CULTURE STAT 06/21/2019 3:59 Results fo r this PM [facility] procedure are i n the results section. HCG QUALITATIVE, URINE STAT 06/21/2019 3:53 R esults for this SCREEN PM [facility] procedure are i n the results section. URINALYSIS STAT 06/21/2019 3:53 Results for this PM [facility] procedure are i n the results section. after 11/16/2018 Results US Pelvic Transabdominal (06/21/2019 4:58 PM DRAWER FITTER) Specimen Narrative Performed At EXAMINATIONS: [facility] US [...] was demonstrated within the pel ayanna cul-de-sac. [facility]-[id number] Procedure Note Interface, Radiology Results Incoming - 06/21/2019 5:05 PM D[facility]TER EXAMINATIONS: US PELVIC TRANSABDOMINAL US PELVIC TRANSVAGINAL [...] was demonstrated within the pel ayanna cul-de-sac. [facility]-[id number] Performing Organization Address City/State/Zipcode Phone Number [facility] [address] [place] [address] US Pelvic Transvaginal (06/21/2019 4:58 PM D[facility]TER) Specimen Narrative Performed At EXAMINATIONS: [facility] US PELVIC TRANSABDOMINAL US PELVIC TRANSVAGINAL CLINICAL [...] was demonstrated within the pel ayanna cul-de-sac. [id number] Procedure Note Interface, Radiology Results Incoming - 06/21/2019 5:05 PM D[facility]TER EXAMINATIONS: US PELVIC TRANSABDOMINAL US PELVIC TRANSVAGINAL [...] was demonstrated within the pel ayanna cul-de-sac. [facility]-[id number] Performing Organization Address City/State/Zipcode Phone Number [facility] [address] [place] [address] Estimated GFR (06/21/2019 4:07 PM DRAWER FITTER) Estimated GFR >=90 mL/min/1.73 [facility] Comment: m2 HIALEAH [facility] Units Interpretation [facility] G1 >=90 [...] 2014. Specimen Plasma specimen Performing Organization Address City/[facility]/Zipcode Phone Number DEPARTMENT OF PATHOLOGY AND [address] [place] [phone] [facility], [facility] [address] [place] [address] EM[facility]Y [facility]ARE CENTER CBC with platelet and differential (06/21/2019 4:07 PM DRAWER FITTER) Pathologist Sig nature WBC 9.58 4.50 - 11.00 k/uL [facility] EMERGENCY [facility] RBC 4.75 4.20 - 5.50 m/uL [facility] HGB 14.3 12.0 - 16.0 g/dL [facility] EMERGENCY [facility] HCT 42.2 37.0 - 47.0 % [facility] MCV 88.8 82.0 - 100.0 fL [facility] MCH 30.1 27.0 - 34.0 pg [facility] MCHC 33.9 31.0 - 37.0 g/dL [facility] RDW - SD 44.0 37.0 - 55.0 fL [facility] MPV 9.4 8.8 - 13.2 fL [facility] Platelet count 463 (H) 150 - 400 k/uL [facility] Neutrophils 57.1 39.0 - 69.0 % [facility] Lymphocytes 33.4 25.0 - 45.0 % [facility] Monocytes 8.5 0.0 - 10.0 % [facility] Eosinophils 0.6 0.0 - 5.0 % [facility] Basophils 0.4 0.0 - 1.0 % [facility] Specimen Blood Performing Organization Address City/State/Zipcode Phone Number DEPARTMENT OF PATHOLOGY AND [id number] [place] [phone] [facility]IC[facility], [facility] [address] [place] [address] EMERGENCY [facility] Comprehensive metabolic panel (06/21/2019 4:07 PM DRAWER FITTER) Pathologist Sig nature Sodium 138 128 - 145 mEq/L [facility] Potassium 4.2 3.6 - 5.1 mEq/L [facility] CO2 25 18 - 33 mEq/L [facility] Chloride 106 98 - 108 mEq/L [facility] Glucose 96 73 - 118 mg/dL [facility] Calcium 9.1 8.0 - 10.3 mg/dL [facility] BUN 10 7 - 22 mg/dL [facility] Creatinine 0.7 0.5 - 0.9 mg/dL [facility] Alkaline phosphatase 63 42 - 141 U/L [facility] ALT 24 10 - 47 U/L [facility] AST 16 11 - 38 U/L [facility] Total bilirubin 0.6 0.2 - 1.6 mg/dL [facility] Albumin 4.6 3.3 - 5.5 g/dL [facility] Protein 7.7 6.4 - 8.1 g/dL [facility] Anion gap 7@ANIO 7 - 15 mEq/L [facility] A/G ratio 1.5 0.7 - 3.8 [facility] Specimen Plasma specimen Performing Organization Address City/[facility] Cent[facility]ode Phone Number DEPARTMENT OF PATHOLOGY AND [address] [place], [place] [phone] [facility] [address] [place] [address] EMERGENCY CARE CENTER Gram stain (06/21/2019 3:59 PM DRAWER FITTER) Gram stain result No WBC's or organisms seen. DAVID GORDON Comment: HOSPITAL Specimen Information Specimen Source: Urine Specimen Site: Urine, clean catch Specimen Urine - Urine, clean catch Performing Organization Address City/[facility] Cent[facility]ode Phone Number [facility] DEPARTMENT OF PATHOLOGY AND [address] [place] [address] [phone] [address] Urine culture (06/21/2019 3:59 PM DRAWER FITTER) Urine culture Mixed buddy 10-5 col/cc [facility] isolate Comment: HOSPITAL Specimen Information Specimen Source: Urine Specimen Site: Urine, clean catch Specimen Urine - Urine, clean catch Performing Organization Address [facility] [place] Phone Number [facility] DEPARTMENT OF PATHOLOGY AND [address] [place] [address] [phone] [address] Urinalysis (06/21/2019 3:53 PM DRAWER FITTER) Glucose, UA Negative Negative [facility] Bilirubin, UA Footnote Negative [facility] Comment: ALEVISM Unable to report due to interference from color of uri la. HIALEAH Corrected result; previously reported as [email or web address] on 06/21/2019 at 16:13 EMERGENCY CARE by [facility] Ketones, UA Negative Negative [facility] Specific gravity, 1.015 1.001 - 1.035 [facility] Blood, UA Large (A) Negative [facility] pH, UA 8.5 5.0 - 8.5 [facility] Protein, UA 3+ (A) Negative [facility] Urobilinogen, UA <2.0 <2.0 [facility] Nitrite, UA Negative Negative [facility] Leukocyte Footnote Negative [facility] esterase, UA Comment: ALEVISM Unable to report due to interference from color of uri la. HIALEAH Corrected result; previously reported as Trace o n 06/21/2019 at 16:13 by [facility] Color, UA Red [facility] Appearance, UA Clear [facility] Specimen Urine Performing Organization Address City/State/Zipcode Phone Number DEPARTMENT OF PATHOLOGY AND [id number] [place] [address] [place] [address] EMERGENCY [facility] hCG qualitative, urine screen (06/21/2019 3:53 PM DRAWER FITTER) hCG qualitative, Negative [facility] urine Comment: HIALEAH Sensitivity of HCG test: 25 mIU/mL [facility] Negative test results in patients suspected CENTER to be should be retested with a sample obtained 48-72 hours later, or by performing a quantitative assay. Specimen Urine Performing Organization Address City/[facility] Centercode Phone Number DEPARTMENT OF PATHOLOGY AND [address] [place] [address] [address] [place] [address] EMERGENCY CARE CENTER after 11/16/2018 Insurance Payer Benefit Plan / Subscriber ID Effective Dates Phone Addre ss Type Group MEDICAID MEDICAID xxxxxxxxx 2016-Present Med [employer] [facility] xxxxxxxxx 2016-Presen HMO CHOICE [facility]/STAR J[employer] t CIGNA CIGNA OPEN xxxxxxxxxxx 2016-Present HMO ACCESS/NETWORK BCBS BCBS CHOICE xxxxxxxxx 2019-Prese P PO PPO/FEDERAL nt EMPL PPO BCBS BCBS CHOICE xxxxxxxxxxxx 2019-Presen PPO PPO/FEDERAL t EMPL PPO Advance Directives For more information, please contact: [phone] Type Date Recorded Patient Registered Massage Therapist Explanati on Advance Directives, Living Will and Medical Power of Beam Racker
--- OUTSIDE RECORDS SUMMARY | 2019-11-17 03:42 | XMS REPORT ---
:1995 Author Organization [facility] t Address [address] [place] [address] Care Team Providers Name Role Phone Asked, Pcp Primary Care Physician Unavailable Casey Merchant MD Attending Clinician Payers Payer Name Policy Type Policy Number Effective Date Expiration Date Geovani yeager MEDICAIDMEDICAID xxxxxxxxx 2016 [place] xxxxxxxxx 00:00:00 Abhishek tee 6-PresentMedicai d FORMERLY [facility] xxxxxxxxx 2016 [facility] 00:00:00 [employer] CHC/STAR JAOkygutynlx2016-PresentHMO CIGNACIGNA OPEN xxxxxxxxxxx 2016 [place] ACCESS/NETWORKxx 00:00:00 Abhishek tee xxxxxxxx-PresentHMO BCBSBCBS CHOICE xxxxxxxxx 2019 [place] PPO/FEDERAL EMPL 00:00:00 Methodcipriano t [id number] 10/2018-PresentPP O Problems This patient has no known problems. Allergies, Adverse Reactions, Alerts Allergy Allergy Status Severity Reaction(s) Onset Inactive Treating Comm ents Source Name Type Date Date Clinician Nemesioorphcortez Propensi Active Palpitations 2018-06 [place] nol ty to -25 Method[facility] Tartrate adverse 00:00: st reaction 00 s to drug morphine DA Active [facility] [place]ine [place] [facility] [place] tramadol DA Active [place] 2017-06 [facility] [place] Tramadol Propensi Active Other (See headache [place] ty to Comments) 03-11 Method[facility] adverse 00:00: st reaction 00 s to drug Acetamin Propensi Active Shortness Of [place] ophen-Co ty to Breath 03-11 [facility] deine adverse 00:00: st reaction 00 s to drug No Known DA Active U [facility] Allergie 3-14 [facility] [place] Family History Family Member Diagnosis Comments Start Date Stop Date Source Natural mother Diabetes [facility] Natural mother Menstrual problems [place] Social History Social Habit Start Date Stop Date Quantity Comments Source Sex Assigned At [facility] ethodist Alcohol intake 2019-06-21 2019-06-21 Current drinker [place] [facility] 00:00:00 00:00:00 of alcohol (finding) Alcohol Comment 2016-04-28 2016-04-28 social, weekly [place] [facility] 00:00:00 00:00:00 Smoking Status Start Date Stop Date Source Never smoker [facility] Medications Ordered Filled Start Stop Current Ordering Indication Dosage Frequency Signature Comments Components Source Medication Medication Date Date Medication? Clinician (SIG) Name Name ibuprofen 2018-06 Yes 800mg Q6H Take 800 [address] (ADVIL) 200 2-25 mg by Methodi MG tablet 17:05: mouth st 17 every 6 (six) hours as needed for mild pain. acetaminoph 2018-06 Yes 2{tbl} Take 2 [place] en-caff-pyr 2-25 tablets by Ia thodi ilamine 17:05: mouth. st 500-60-15 17 mg tablet acetaminoph 2018-06 No 1000mg Q6H Take 2 H rula en (TYLENOL 2-25 01-24 tablets Meth shamir EXTRA 00:00: 23:59 (1,[address] STRENGTH) 00 :00 total) by 500 MG mouth tablet every 6 (six) hours as needed for moderate pain for up to 30 days. ondansetron 2018-06- No 8mg Q8H Take 1 Sophia ston ODT (ZOFRAN 08-2224 tablet (8 Me thodi ODT) 8 MG 00:00: 23:59 mg total) st disintegrat 00 :00 by mouth ing tablet every 8 (eight) hours as needed for nausea or vomiting for up to 30 days. dicyclomine 2018-06- No 20mg Q.5D Take 1 Sophia ston (BENTYL) 20 08-22 tablet (20 M ethodi mg tablet 00:00: 23:59 mg total) st 00 :00 by mouth 2 (two) times a day for 30 days. keTOROlac 2016-06- No 10mg Q6H Take 1 [place] (TORadol) 1-06-21 tablet (10 Met hodi 10 mg 00:00: 00:00 mg total) st tablet 00 :00 by mouth every 6 (six) hours as needed for moderate pain (do not take with other NSAID) for up to 10 doses. NEXPLANON 2015-06- No Rodrigues 68 mg 0-17 -25 Methodi implant 00:00: 00:00 st 00 :00 traZODone 2015-06- No Rodrigues (DESYREL) 0-17 12-25 Methodi 50 MG 00:00: 00:00 st tablet 00 :00 SUMAtriptan 2018- No 50mg Take 1 Sophia [address]on (IMITREX) 03-15 tablet (50 Met hodi 50 MG 00:00: 00:00 mg total) st tablet 00 :00 by mouth once as needed for migraine for up to 20 doses. Vital Signs Vital Name Observation Time Observation Value Comments Source Body height 2019-06-21 16:57:00 152.4 cm Ravi Delong Body weight 2019-06-21 16:57:00 80.287 kg Ravi Delong BMI 2019-06-21 16:57:00 34.57 kg/m2 Ravi Delong Systolic blood 2019-06-21 15:44:00 123 mm[Hg] [place] pressure Diastolic blood 2019-06-21 15:44:00 81 mm[Hg] [place] [facility] pressure Heart rate 2019-06-21 15:44:00 119 /min Ravi Delong Body temperature 2019-06-21 15:44:00 36.17 [place] Respiratory rate 2019-06-21 15:44:00 18 /min [place] [facility] [place] Oxygen saturation in 2019-06-21 15:44:00 99 /min Ravi Delong Arterial blood by Pulse oximetry Procedures Procedure Date / Time Performing Clinician Source Performed US PELVIC TRANSABDOMINAL 2019-06-21 16:58:35 Liseth Merchant US PELVIC TRANSVAGINAL 2019-06-21 16:58:35 Liseth Merchant HC COMPLETE BLD COUNT 2019-06-21 16:07:00 Liseth Merchant W/AUTO DIFF COMPREHENSIVE METABOLIC 2019-06-21 16:07:00 Liseth Merchant PANEL ESTIMATED GFR 2019-06-21 16:07:00 Liseth Merchant Me thodist URINE CULTURE 2019-06-21 15:59:00 Liseth Merchant [facility] GRAM STAIN 2019-06-21 15:59:00 Liseth Merchant [facility] URINALYSIS 2019-06-21 15:53:00 Liseth Merchant [facility] HCG QUALITATIVE, URINE 2019-06-21 15:53:00 Liseth Merchant SCREEN Plan of Care Planned Activity Planned Date Details Comments Source Future Scheduled 2020-01-27 INFLUENZA VACCINE [place] [facility] Test 00:00:00 [code = INFLUENZA VACCINE] Future Scheduled 2015-09-17 Screening for Rodrigues Me thodist Test 00:00:00 malignant neoplasm of cervix (procedure) [code = 615761427] Encounters Start End Encounter Admission Attending Care Care Encounter Source Date/Time Date/Time Type Type Clinicians Facility Department ID 2019-06-21 2019-06-21 Emergency KELSI [facility] 064 [id number] 49 [place] 00:00:00 00:00:00 LISETH Muhammad Method i st Results Test Description Test Time Test Comments Results Result Comments Source Urine culture 2019-06-23 10:07:15 Test Item Value Reference Range Interpretation Comme nts Urine culture isolate Mixed buddy 10-5 Sp ecimen InformationSpecimen (test code = 68500-6) col/cc Source : UrineSpecimen Site: Urine, clean catch [place] MethodistGram [id number] 10:07:15 Test Item Value Reference Range Interpretation Comments Gram stain No WBC's or Specimen result (test organisms seen. InformationS pecimen code = 664-3) Source: UrineS pecimen Site: Urine, cl paramjit catch [place] [id number] 17:15:49 Test Item Value Reference Range Interpretation Comments Glucose, UA (test code = Negative Negative 61147-0) Bilirubin, UA (test code Footnote Negative Cora ble to report due = 5770-3) to interference from color of urine.Corrected result; previou sly reported as Positive@UBIL o n 06/21/2019 at 1 6:13 by [place] Ketones, UA (test code = Negative Negative 2514-8) Specific gravity, UA 1.015 1.001-1.035 (test code = 5811-5) Blood, UA (test code = Large Negative A 5794-3) pH, UA (test code = 8.5 5.0-8.5 5803-2) Protein, UA (test code = 3+ Negative A 33129-6) Urobilinogen, UA (test <2.0 <2.0 code = 51650-5) Nitrite, UA (test code = Negative Negative 5802-4) Leukocyte esterase, UA Footnote Negative Unabl e to report due (test code = 5799-2) to inte rference from color of urine.Corrected result; previou sly reported as Tra ce on 06/21/2019 at 1 6:13 by [place] Color, UA (test code = Red 5778-6) Appearance, UA (test Clear code = 5767-9) Lab Interpretation (test Abnormal code = 24094-3) [place] [facility] metabolic [id number] 17:09:01 Test Item Value Reference Range Interpretation Comments Sodium (test code = 2951-2) 138 128- 145 mEq/L Potassium (test code = 2823-3) 4.2 3.6- 5.1 mEq/L CO2 (test code = 2027-9) 25 18- 33 mEq/L Chloride (test code = 2075-0) 106 98- 108 mEq/L Glucose (test code = 2345-7) 96 mg/dL 73-118 Calcium (test code = 49816-2) 9.1 mg/dL 8-10.3 BUN (test code = 3094-0) 10 mg/dL 7-22 Creatinine (test code = 2160-0) 0.7 mg/dL 0.5-0.9 Alkaline phosphatase (test code = 63 U/L 42-141 6768-6) ALT (test code = 1742-6) 24 U/L 10-47 AST (test code = 1920-8) 16 U/L 11-38 Total bilirubin (test code = 0.6 mg/dL 0.2-1.6 1974-2) Albumin (test code = 1751-7) 4.6 g/dL 3.3-5.5 Protein (test code = 2885-2) 7.7 g/dL 6.4-8.1 Anion gap (test code = 61622-5) 7@ANIO 7- 15 mEq/L A/G ratio (test code = 1759-0) 1.5 0.7-3.8 Rodrigues MethodistEstimated [id number] 17:09:01 Test Item Value Reference Range Interpretation Comments Estimated GFR (test >=90 mL/min/1.73 m2 [facility] code = 5488) InterpretationG 1 >=90 Normal or highG2 60-89 Mildly amsbglhldL3y 45-59 Mildly to mode rately fipohtgjqK8q 30-44 Moderately to severely decreasedG4 15-29 Severely decre asedG5 <15 Kidn ey failureThe eGFR was calculated usin g the Chronic Kidney Disease Epidemiology Co llaboration (CKD-EPI) equat ion. Interpretation is based on recommendations of the National Kidney Foundation-Kidn ey Disease Outcomes Qualit y Initiative (NKF-KDOQI) pub lished in 2014. Ravi MethodistUS Pelvic [id number] 17:02:27Hm Interface, Radiology Results - 06/21/2019 5:05 PM CSTEXAMINATIONS: US PELVIC TRANSABDOMINALUS PELVIC TRANSVAGINALCLINICAL HISTORY: vag bleedingCOMPARISON: None availableTECHNIQUE:Transabdominal and endovaginal sonographic images of the pelvis were obtained. Grayscale, color Doppler, andspectral waveform analysis of the ovarian vessels was performed.IMPRESSION: The uterus measures 8.6 x 4.7 x 4.1 cm. The endometrial stripe measures 0.8. No discrete mass lesions are seen.The right ovary measures 2.9 x 1.8 x 2.1 cm. Normal Doppler flow was present. Small physiologic follicles are present.The left ovary measures 2.5 x 1.6 x 1.5 cm. Normal Doppler flow was present. Small physiologic follicles are present.No fluid was demonstrated within the pelvic cul-de-sac. [id number] [facility] Pelvic [id number] 17:02:27 Interface, Radiology Results - 06/21/2019 5:05 PM CSTEXAMINATIONS: US PELVIC TRANSABDOMINALUS PELVIC TRANSVAGINALCLINICAL HISTORY: vag bleedingCOMPARISON: None availableTECHNIQUE:Transabdominal and endovaginal sonographic images of the pelvis were obtained. Grayscale, color Doppler, andspectral waveform analysis of the ovarian vessels was performed.IMPRESSION: The uterus measures 8.6 x 4.7 x 4.1 cm. The endometrial stripe measures 0.8. No discrete mass lesions are seen.The right ovary measures 2.9 x 1.8 x 2.1 cm. Normal Doppler flow was present. Small physiologic follicles are present.The left ovary measures 2.5 x 1.6 x 1.5 cm. Normal Doppler flow was present. Small physiologic follicles are present.No fluid was demonstrated within the pelvic cul-de-sac. [id number] [facility] with platelet and [id number] 16:58:15 Test Item Value Reference Range Interpretation Comments WBC (test code = 45112-1) 9.58 4.50- 11.00 k/uL RBC (test code = 52125-8) 4.75 m/uL 4.2-5.5 HGB (test code = 718-7) 14.3 g/dL 12-16 HCT (test code = 4544-3) 42.2 % 37-47 MCV (test code = 787-2) 88.8 fL 82-100 MCH (test code = 785-6) 30.1 pg 27-34 MCHC (test code = 786-4) 33.9 g/dL 31-37 RDW - SD (test code = 75319-3) 44.0 fL 37-55 MPV (test code = 47661-4) 9.4 fL 8.8-13.2 Platelet count (test code = 463 150- 400 k/uL H 07970-9) Neutrophils (test code = 61414-3) 57.1 % 39-69 Lymphocytes (test code = 25011-7) 33.4 % 25-45 Monocytes (test code = 32125-6) 8.5 % 0-10 Eosinophils (test code = 54612-2) 0.6 % 0-5 Basophils (test code = 91886-5) 0.4 % 0-1 Lab Interpretation (test code = Abnormal 58896-1) [facility] qualitative, urine [id number] 16:13:05 Test Item Value Reference Range Interpretation Comments hCG qualitative, Negative Sensitivity of HCG test: urine (test code = 25 mIU/mL Negative test 6-3) results in linette ents suspected to be should be retes jd with a sample obtained 48-72 hours later, or by performing a qu antitative assay. Ravi [facility] W/AUTO [id number] 07:27:00 Test Item Value Reference Range Interpretation Comments WHITE BLOOD CELL (test code = WBC) 12.1 K/mm3 6.6-12.1 N RED BLOOD CELL (test code = RBC) 3.51 M/mm3 3.45-5.01 N HEMOGLOBIN (test code = HGB) 9.6 g/dL 10.7-13.9 L HEMATOCRIT (test code = HCT) 30.6 % 32.1-42.1 L MEAN CELL VOLUME (test code = MCV) 87 fL 84.1-94.8 N MEAN CELL HGB (test code = MCH) 27.4 pg 27-35 N MEAN CELL HGB CONCETRATION (test 31.4 gm/dL 32.2-34.1 L code = MCHC) RED CELL DISTRIBUTION WIDTH (test 15.7 % 12.4-16.5 N code = RDW) PLATELET COUNT (test code = PLT) 261 K/mm3 133-385 N IMMATURE PLATELET FRACTION (test 0.0 % 0.0-10.8 N code = IPF) MEAN PLATELET VOLUME (test code = 10.4 fl 9.1-12.7 N MPV) NEUTROPHIL % (test code = NT%) 65.2 % 56.5-79.4 N LYMPHOCYTE % (test code = LY%) 26.9 % 14.3-34.3 N MONOCYTE % (test code = MO%) 6.0 % 5.1-10.4 N EOSINOPHIL % (test code = EO%) 1.0 % 0.1-3.0 N BASOPHIL % (test code = BA%) 0.2 % 0.1-1.0 N NEUTROPHIL # (test code = NT#) 7.9 K/mm3 LYMPHOCYTE # (test code = LY#) 3.3 K/mm3 MONOCYTE # (test code = MO#) 0.7 K/mm3 EOSINOPHIL # (test code = EO#) 0.12 K/mm3 BASOPHIL # (test code = BA#) 0.0 K/mm3 RBC MORPHOLOGY REQUIRED (test code NORMAL NORMAL = RBCM) PLATELET MORPHOLOGY REQUIRED (test NORMAL NORMAL code = PLTMR) AG HEPATITIS B [id number] 04:15:00 Test Item Value Reference Range Interpretation Comments AG HEPATITIS B SURFACE (test code NONREACTIVE NONREACTIVE = HBSAG) AB HEPATITIS C [id number] 04:15:00 Test Item Value Reference Range Interpretation Comments AB HEPATITIS C (test code = NONREACTIVE NONREACTIVE HCVAB) SIGNAL TO CUTOFF (test code = 0.13 <0.80 N CUTOFF) RUBELLA [id number] 04:15:00 Test Item Value Reference Range Interpretation Comments RUBELLA SCREEN 70.2 IUnit/ml Results >10. 0IUnits/ml (test code = are considered positive RUBSC) inaccordance wi th the CLSI guidelines and based on the [employer] S tandard for Anti-Rubell a serum as anindicator of immune status and a br eakpoint to detect mostseropositiv e persons. AB [id number] 04:15:00 Test Item Value Reference Range Interpretation Comments AB TREPONEMA (test code = TREPAB) NONREACTIVE NONREACTIVE AG HEPATITIS B [id number] 04:00:00 Test Item Value Reference Range Interpretation Comments AG HEPATITIS B SURFACE (test code NONREACTIVE NONREACTIVE = HBSAG) AB HEPATITIS C [id number] 04:00:00 Test Item Value Reference Range Interpretation Comments AB HEPATITIS C (test code = HCVAB) NONREACTIVE SIGNAL TO CUTOFF (test code = CUTOFF) <0.80 RUBELLA [id number] 04:00:00 Test Item Value Reference Range Interpretation Comments RUBELLA SCREEN 70.2 IUnit/ml Results >10. 0IUnits/ml (test code = are considered positive RUBSC) inaccordance wi th the CLSI guidelines and based on the [employer] S tandard for Anti-Rubell a serum as anindicator of immune status and a br eakpoint to detect mostseropositiv e persons. AB [id number] 04:00:00 Test Item Value Reference Range Interpretation Comments AB TREPONEMA (test code = TREPAB) NONREACTIVE NONREACTIVE CBC W/AUTO [id number] 00:36:00 Test Item Value Reference Range Interpretation Comments WHITE BLOOD CELL (test code = WBC) 11.2 K/mm3 6.6-12.1 N RED BLOOD CELL (test code = RBC) 4.22 M/mm3 3.45-5.01 N HEMOGLOBIN (test code = HGB) 11.6 g/dL 10.7-13.9 N HEMATOCRIT (test code = HCT) 35.9 % 32.1-42.1 N MEAN CELL VOLUME (test code = MCV) 85 fL 84.1-94.8 N MEAN CELL HGB (test code = MCH) 27.5 pg 27-35 N MEAN CELL HGB CONCETRATION (test 32.3 gm/dL 32.2-34.1 N code = MCHC) RED CELL DISTRIBUTION WIDTH (test 14.8 % 12.4-16.5 N code = RDW) PLATELET COUNT (test code = PLT) 335 K/mm3 133-385 N IMMATURE PLATELET FRACTION (test 0.0 % 0.0-10.8 N code = IPF) MEAN PLATELET VOLUME (test code = 10.5 fl 9.1-12.7 N MPV) NEUTROPHIL % (test code = NT%) 63.3 % 56.5-79.4 N LYMPHOCYTE % (test code = LY%) 27.0 % 14.3-34.3 N MONOCYTE % (test code = MO%) 7.4 % 5.1-10.4 N EOSINOPHIL % (test code = EO%) 1.3 % 0.1-3.0 N BASOPHIL % (test code = BA%) 0.4 % 0.1-1.0 N NEUTROPHIL # (test code = NT#) 7.1 K/mm3 LYMPHOCYTE # (test code = LY#) 3.0 K/mm3 MONOCYTE # (test code = MO#) 0.8 K/mm3 EOSINOPHIL # (test code = EO#) 0.15 K/mm3 BASOPHIL # (test code = BA#) 0.0 K/mm3 RBC MORPHOLOGY REQUIRED (test code NORMAL NORMAL = RBCM) PLATELET MORPHOLOGY REQUIRED (test NORMAL NORMAL code = PLTMR)
[2019-11-17] MEDS ORDERED: NA CHLORIDE 0.9% 1,000 ML ONE (04:17)
[2019-11-17] MEDS ORDERED: PROMETHAZINE INJ 25 MG/ML AMP ONE (04:17)
[2019-11-17 04:32] LABS: Absolute Lymphocytes (CBC) 2.7 K/uL (0.7-4.9); Basophils % 0.9 % (0-1.3); Hematocrit 40.8 % (36.0-45.0); Lymphocytes % 37.9 % (15.3-44.8); RBC Red Blood Cell Count 4.61 M/uL (3.86-4.86)
[2019-11-17 04:35] LABS: Protime INR 0.99
[2019-11-17 04:36] LABS: Barbiturates NEGATIVE (NEGATIVE); Benzodiazepines POSITIVE (NEGATIVE); Cocaine NEGATIVE (NEGATIVE); METHAMPHETAM NEGATIVE (NEGATIVE); Methadone NEGATIVE (NEGATIVE); Opiates NEGATIVE (NEGATIVE); Phencyclidine NEGATIVE (NEGATIVE); THC Cannibis NEGATIVE (NEGATIVE)
[2019-11-17 04:47] LABS: Urine Blood 2+ (NEG); Urine Glucose NEGATIVE (NEG); Urine Protein NEGATIVE (NEG); Urine Specific Gravity >1.030 (1.005-1.030); Urine pH 5.5 (5.0-7.0)
[2019-11-17 04:49] LABS: ALT/SGPT 19 U/L (12-78); AST/SGOT < 3 U/L (15-37); Albumin 3.8 g/dL (3.4-5.0); Alkaline Phosphatase 64 U/L (45-117); BUN Blood Urea Nitrogen 12 mg/dL (7-18); Bicarbonate 23 mmol/L (21-32); Bilirubin Direct 0.1 mg/dL (0-0.2); Bilirubin Total 0.6 mg/dL (0.2-1.0); Glucose Level 93 mg/dL (74-106); Lipase 45 U/L (73-393); Magnesium 2.3 mg/dL (1.8-2.4); Potassium 3.6 mmol/L (3.5-5.1); Protein, Total 7.7 g/dL (6.4-8.2); Sodium Level 138 mmol/L (136-145); Troponin (Emerg Dept Use Only) < 0.02 ng/mL (0.0-0.045)
--- NOTE | 2019-11-17 05:05 | ER ---
Nurse's Notes [facility] Name: Carla Duncan Age: 24 yrs Sex: Female : 1995 Arrival Date: 11/17/2019 Time: 03:41 Bed 6 Private MD: Diagnosis: Nausea and vomiting;Bipolar disorder Presentation: 11/16 03:48 Chief complaint: Patient states: Carolin been having changes to my psych medications, I sg think im withdrawing from what the facility in [place] had me on, Buspiron and Geodon and a lot of other new medications for like schizophrenia. My psychiatrist here in [facility], has me on no medications except zofran to get me back on track with my normal medications. Coronavirus screen: Proceed with normal triage. Ebola Screen: Patient negative for fever greater than or equal to 101.5 degrees Fahrenheit, and additional compatible Ebola Virus Disease symptoms Patient denies exposure to infectious person. Patient denies travel to an Ebola-affected area in the 21 days before illness onset. No symptoms or risks identified at this time. Initial Sepsis Screen: Does the patient meet any 2 criteria? HR > 90 bpm. No. Patient's initial sepsis screen is negative. Does the patient have a suspected source of infection? No. Patient's initial sepsis screen is negative. Risk Assessment: Do you want to hurt yourself or someone else? Patient reports no desire to harm self or others. Onset of symptoms was November 17, 2019. Care prior to arrival: None. Transition of care: patient was not received from another setting of care. 03:48 Method Of Arrival: Ambulatory 03:48 Acuity: VENKATESH 3 sg LOAN APPROVER: 05:21 lmp unknown mg2 Historical: - Allergies: 03:51 Codeine; sg 03:51 Tussin; sg 03:51 Toradol; sg 03:51 tramadol; sg - Home Meds: 03:51 diazepam Oral [Active]; Prozac Oral [Active]; Seroquel Oral [Active]; sg - PMHx: 03:51 Anxiety; Asthma; Bipolar disorder; Depression; Ovarian cyst; sg - PSHx: 03:51 ; sg - Immunization history:: Adult Immunizations up to date. - Social history:: Smoking status: Patient denies any tobacco usage or history of. - Family history:: not pertinent. Screenin:00 Abuse screen: Denies threats or abuse. Denies injuries from another. Nutritional mg2 screening: No deficits noted. Tuberculosis screening: No symptoms or risk factors identified. 05:00 Fall Risk IV access (20 points). mg2 Assessment: 04:50 General: Appears in no apparent distress. comfortable, Behavior is calm, cooperative. mg2 Pain: Complains of pain in head. Neuro: Level of Consciousness is awake, alert, obeys commands, Oriented to person, place, time, situation. Cardiovascular: Capillary refill < 3 seconds Patient's skin is warm and dry. Respiratory: Airway is patent Respiratory effort is even, unlabored, Respiratory pattern is regular, symmetrical. GI: Abdomen is non-distended, Reports vomiting. : No signs and/or symptoms were reported regarding the genitourinary system. EENT: No signs and/or symptoms were reported regarding the EENT system. Derm: Skin is intact, is healthy with good turgor, Skin is pink, warm \T\ dry. normal. Musculoskeletal: Circulation, motion, and sensation intact. Capillary refill < 3 seconds. Vital Signs: 03:48 BP 136 / 80; Pulse 110; Resp 18; Temp 97.6; Pulse Ox 100% on R/A; Weight 77.11 kg (R); sg Height 5 ft. 8 in. (172.72 cm) (R); Pain 3/10; 05:21 BP 135 / 80; Pulse 95; Resp 18; Temp 97.5(O); Pulse Ox 100% ; mg2 03:48 Body Mass Index 25.85 (77.11 kg, 172.72 cm) ED Course: 03:41 Patient arrived in ED. ds1 03:42 Michael Yuan MD is Attending Physician. atif 03:50 Triage completed. sg 03:51 Arm band placed on. sg 04:17 EKG done, by educational technology coordinator. reviewed by Michael Yuan MD. ar5 04:17 Urine collected: clean catch specimen, clear. ar5 04:24 Inserted saline lock: 20 gauge in left antecubital area, using aseptic technique. Blood wh collected. 04:45 Austen Perez, JUDI is Primary Nurse. mg2 05:00 Patient has correct armband on for positive identification. mg2 05:04 Onesimo Yeboah MD is Referral Physician. [facility] 05:15 XRAY Chest (1 view) In Process Unspecified. EDMS 05:21 No provider procedures requiring assistance completed. mg2 05:22 IV discontinued, intact, bleeding controlled, No redness/swelling at site. Pressure mg2 dressing applied. Administered Medications: 04:24 Drug: NS 0.9% 1000 ml Route: IV; Rate: 1 bolus; Site: left antecubital; 05:21 Follow up: Response: No adverse reaction; IV Status: Completed infusion; IV Intake: mg2 1000ml 04:24 Drug: Phenergan 12.5 mg Route: IVP; Site: left antecubital; 05:21 Follow up: Response: No adverse reaction mg2 Intake: 05:21 IV: 1000ml; Total: 1000ml. mg2 Outcome: 05:05 Discharge ordered by . [facility] 05:22 Discharged to home ambulatory. mg2 05:22 Condition: stable 05:22 Discharge instructions given to patient, Instructed on discharge instructions, follow up and referral plans. medication usage, Demonstrated understanding of instructions, follow-up care, medications, Prescriptions given X 2. 05:23 Patient left the ED. mg2 Signatures: Dispatcher [employer] EDMS Mark Muller RN RN sg Anderson, Corey, MD MD cha Sanford, Demi ds1 Habalo, Winsy wh Gardose, Michele, RN RN mg2 Laura Trimble ar5 Corrections: (The following items were deleted from the chart) 05:22 05:21 Patient did not have IV access during this emergency room visit. mg2 mg2
--- NOTE | 2019-11-17 05:06 | EDPHYS ---
Physician Documentation [facility] Name: Carla Duncan Age: 24 yrs Sex: Female : 1995 Arrival Date: 11/17/2019 Time: 03:41 Bed 6 Private MD: ED Physician Michael Yuan HPI: 11/16 04:00 This 24 yrs old Female presents to ER via Ambulatory with complaints of atif Vomiting, chill, Withdrawals. 04:00 The patient presents to the emergency department with nausea, vomiting, that is atif intermittent. Onset: The symptoms/episode began/occurred 3 day(s) ago. Possible causes: unknown. The symptoms are aggravated by nothing. The symptoms are alleviated by nothing. Associated signs and symptoms: The patient has no apparent associated signs or symptoms. Severity of symptoms: At their worst the symptoms were moderate in the emergency department the symptoms are unchanged. The patient has not experienced similar symptoms in the past. 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 - Social history:: Smoking status: Patient denies any tobacco usage or history of. - Family history:: not pertinent. ROS: 04:00 Constitutional: Negative for fever, chills, and weight loss, Eyes: Negative for injury, atif pain, redness, and discharge, ENT: Negative for injury, pain, and discharge, Neck: Negative for injury, pain, and swelling, Cardiovascular: Negative for chest pain, palpitations, and edema, Respiratory: Negative for shortness of breath, cough, wheezing, and pleuritic chest pain, Back: Negative for injury and pain, : Negative for injury, bleeding, discharge, and swelling, MS/Extremity: Negative for injury and deformity, Skin: Negative for injury, rash, and discoloration, Neuro: Negative for headache, weakness, numbness, tingling, and seizure, Psych: Negative for depression, anxiety, suicide ideation, homicidal ideation, and hallucinations, Allergy/Immunology: Negative for hives, rash, and allergies, Endocrine: Negative for neck swelling, polydipsia, polyuria, polyphagia, and marked weight changes, Hematologic/Lymphatic: Negative for swollen nodes, abnormal bleeding, and unusual bruising. 04:00 Abdomen/GI: Positive for abdominal pain, nausea and vomiting. Exam: 04:00 Constitutional: This is a well developed, well nourished patient who is awake, alert, atif and in no acute distress. Head/Face: Normocephalic, atraumatic. Eyes: Pupils equal round and reactive to light, extra-ocular motions intact. Lids and lashes normal. Conjunctiva and sclera are non-icteric and not injected. Cornea within normal limits. Periorbital areas with no swelling, redness, or edema. ENT: Nares patent. No nasal discharge, no septal abnormalities noted. Tympanic membranes are normal and external auditory canals are clear. Oropharynx with no redness, swelling, or masses, exudates, or evidence of obstruction, uvula midline. Mucous membranes moist. Neck: Trachea midline, no thyromegaly or masses palpated, and no cervical lymphadenopathy. Supple, full range of motion without nuchal rigidity, or vertebral point tenderness. No Meningismus. Chest/axilla: Normal chest wall appearance and motion. Nontender with no deformity. No lesions are appreciated. Cardiovascular: Regular rate and rhythm with a normal S1 and S2. No gallops, murmurs, or rubs. Normal PMI, no JVD. No pulse deficits. Respiratory: Lungs have equal breath sounds bilaterally, clear to auscultation and percussion. No rales, rhonchi or wheezes noted. No increased work of breathing, no retractions or nasal flaring. Abdomen/GI: Soft, non-tender, with normal bowel sounds. No distension or tympany. No guarding or rebound. No evidence of tenderness throughout. Back: No spinal tenderness. No costovertebral tenderness. Full range of motion. Skin: Warm, dry with normal turgor. Normal color with no rashes, no lesions, and no evidence of cellulitis. MS/ Extremity: Pulses equal, no cyanosis. Neurovascular intact. Full, normal range of motion. Neuro: Awake and alert, GCS 15, oriented to person, place, time, and situation. Cranial nerves II-XII grossly intact. Motor strength 5/5 in all extremities. Sensory grossly intact. Cerebellar exam normal. Normal gait. Psych: Awake, alert, with orientation to person, place and time. Behavior, mood, and affect are within normal limits. 04:04 Musculoskeletal/extremity: DVT Exam: No signs of deep vein thrombosis. no pain, no atif swelling, no tenderness, negative Homans' sign noted on exam, no appreciated bluish discoloration, no erythema, no increased warmth. 05:06 ECG was reviewed by the Attending Physician. [facility] Vital Signs: 03:48 BP 136 / 80; Pulse 110; Resp 18; Temp 97.6; Pulse Ox 100% on R/A; Weight 77.11 kg (R); sg Height 5 ft. 8 in. (172.72 cm) (R); Pain 3/10; 05:21 BP 135 / 80; Pulse 95; Resp 18; Temp 97.5(O); Pulse Ox 100% ; mg2 03:48 Body Mass Index 25.85 (77.11 kg, 172.72 cm) sg MDM: 03:42 Patient medically screened. [facility] 04:01 Data reviewed: vital signs, nurses notes, lab test result(s), EKG, radiologic studies, [facility] plain films. 05:03 Differential diagnosis: Nonspecific abd pain, gastritis. Data interpreted: Cardiac [facility] monitor: not applicable for this patient encounter. Pulse oximetry: on room air is 100 %. Test interpretation: by ED physician or midlevel provider: ECG, plain radiologic studies. Counseling: I had a detailed discussion with the patient and/or guardian regarding: the historical points, exam findings, and any diagnostic results supporting the discharge/admit diagnosis, lab results, radiology results, the need for outpatient follow up, for definitive care, an inside sales advertising executive, a psychiatrist. Medication response: Phenergan markedly relieved the patient's nausea. ED course: NAUSEA AND VOMITING IMPROVED. 11/16 03:59 Order name: Basic Metabolic Panel; Complete Time: 05:02 [facility] 11/16 03:59 Order name: CBC with Diff; Complete Time: 05:02 [facility] 11/16 03:59 Order name: LFT's; Complete Time: 05: [facility] 11/16 03:59 Order name: Magnesium; Complete Time: 05: [facility] 11/16 03:59 Order name: Troponin (emerg Dept Use Only); Complete Time: 05:02 [facility] 11/16 03:59 Order name: Lipase; Complete Time: 05:02 [facility] 11/16 03:59 Order name: Acetaminophen; Complete Time: 05:02 [facility] 11/16 03:59 Order name: ETOH Level; Complete Time: 05:02 [facility] 11/16 03:59 Order name: PT-INR; Complete Time: 05:02 [facility] 11/16 03:59 Order name: Ptt, Activated; Complete Time: 05:02 [facility] 11/16 03:59 Order name: Salicylate; Complete Time: 05:02 [facility] 11/16 03:59 Order name: Urine Drug Screen; Complete Time: 05:02 [facility] 11/16 04:26 Order name: Urine Dipstick--Ancillary (enter results); Complete Time: 05:02 [facility] 11/16 04:26 Order name: Urine --Ancillary (enter results); Complete Time: 05:02 [facility] 11/16 03:59 Order name: XRAY Chest (1 view) [facility] 11/16 03:59 Order name: EKG; Complete Time: 04:01 [facility] 11/16 03:59 Order name: Cardiac monitoring; Complete Time: 04:12 [facility] 11/16 03:59 Order name: EKG - Nurse/Tech; Complete Time: 04:12 [facility] 11/16 03:59 Order name: IV Saline Lock; Complete Time: 04:12 [facility] 11/16 03:59 Order name: Labs collected and sent; Complete Time: 04:12 [facility] 11/16 03:59 Order name: O2 Per Protocol; Complete Time: 04:12 [facility] 11/16 03:59 Order name: O2 Sat Monitoring; Complete Time: 04:12 [facility] 11/16 03:59 Order name: Urine Dipstick-Ancillary (obtain specimen); Complete Time: 04:16 [facility] 11/16 03:59 Order name: Urine Test (obtain specimen); Complete Time: 04:12 [facility] EC:06 Rate is 95 beats/min. Rhythm is regular. QRS [place] is Normal. VT interval is normal. QRS atif interval is normal. QT interval is normal. No Q waves. T waves are Normal. No ST changes noted. Clinical impression: Normal ECG and No evidence of ischemia. Interpreted by me. Reviewed by me. Administered Medications: 04:24 Drug: NS 0.9% 1000 ml Route: IV; Rate: 1 bolus; Site: left antecubital; 05:21 Follow up: Response: No adverse reaction; IV Status: Completed infusion; IV Intake: mg2 1000ml 04:24 Drug: Phenergan 12.5 mg Route: IVP; Site: left antecubital; 05:21 Follow up: Response: No adverse reaction mg2 Disposition: 11/17/19 05:05 Discharged to Home. Impression: Nausea and vomiting, Bipolar disorder. - Condition is Stable. - Discharge Instructions: Nausea and Vomiting, Adult. - Prescriptions for Phenergan 25 mg Rectal Suppository - insert 1 suppository by RECTAL route every 6 hours As needed; 12 suppository. promethazine 25 mg Oral Tablet - take 1 tablet by ORAL route every 6 hours As needed; 20 tablet. - Medication Reconciliation Form, Thank You Letter, Antibiotic Education, Prescription Opioid Use form. - Follow up: Private Physician; When: 2 - 3 days; Reason: Recheck today's complaints, Continuance of care, Re-evaluation by your physician. Follow up: Onesimo Yeboah MD; When: 2 - 3 days; Reason: Recheck today's complaints, Continuance of care, Re-evaluation by your physician. - Problem is new. - Symptoms have improved. Signatures: Dispatcher [employer] EDMark Segundo, Michael Sousa RN, MD MD cha Habalo, Winsy Austen Perez RN RN mg2 Corrections: (The following items were deleted from the chart) 05:23 05:05 11/17/2019 05:05 Discharged to Home. Impression: Nausea and vomiting; Bipolar mg2 disorder. Condition is Stable. Forms are Medication Reconciliation Form, Thank You Letter, Antibiotic Education, Prescription Opioid Use. Follow up: Private Physician; When: 2 - 3 days; Reason: Recheck today's complaints, Continuance of care, Re-evaluation by your physician. Follow up: Onesimo Yeboah; When: 2 - 3 days; Reason: Recheck today's complaints, Continuance of care, Re-evaluation by your physician. Problem is new. Symptoms have improved. atif
[2019-11-17 05:34] VITALS: O2SAT 100
[2019-11-17 05:35] VITALS: BP 135/80; TEMP 97.5
--- NOTE | 2019-11-17 06:24 | EKG ---
Test Date: 2019-11-17 Test Time: 04:15:08 Services Mgr: JOSE MEASUREMENT RESULTS: Intervals: Rate: 95 DC: 160 QRSD: 72 QT: 360 QTc: 452 Driver: P: 57 DC: 160 QRS: 56 T: 40 INTERPRETIVE STATEMENTS: Normal sinus rhythm Normal ECG Compared to ECG 11/03/2019 10:49:56 Myocardial infarct finding no longer present Electronically Signed On 11-17-19 06:23:46 CDT by Jatin Sandhu
--- NOTE | 2019-11-17 08:48 | RAD REPORT ---
EXAM DESCRIPTION: Brandy Single View11/17/2019 5:14 am CLINICAL HISTORY: Cough COMPARISON: September 2019 FINDINGS: The lungs appear clear of acute infiltrate. The heart is normal size IMPRESSION: No acute abnormalities displayed
== END 2019-11-17 05:23 | disposition home or self-care (01) ==
LOC: ER 03:39
DX: R11.2 Nausea with vomiting, unspecified (principal); F31.9 Bipolar disorder, unspecified; Z88.5 Allergy status to narcotic agent; Z88.8 Allergy status to other drugs, medicaments and biological substances
CPT/HCPCS: 96361; 93005; 85025; 80048; 36415; 80320; 83735; 80329 ×2; 81025; 85610; 80076; 80307 ×8; 85730; 81003; 84484; 83690; 71045; 96374; 99284; J2550; J7030

== ENCOUNTER 2019-12-03 20:59 | Emergency (ER) | payer BC ==
--- OUTSIDE RECORDS SUMMARY | 2019-12-03 21:02 | XMS REPORT | Clinical Summary ---
:1995 Author Organization [facility] Address [address] [place] [address] Care Team Providers Name Role Phone Asked, [...] ion; Lower abdominal pain; Vagina bleeding after 12/02/2018 Family History Medical History Relation Name Comments [...] Comments Blood Pressure 123/81 06/21/2019 3:44 PM ONLINE ADVERTISING ANALYST Pulse 119 06/21/2019 3:44 PM ONLINE ADVERTISING ANALYST Temperature 36.2 C (97.1 F) 06/21/2019 3:44 PM ONLINE ADVERTISING ANALYST Respiratory Rate 18 06/21/2019 3:44 PM ONLINE ADVERTISING ANALYST Oxygen Saturation 99% 06/21/2019 3:44 PM ONLINE ADVERTISING ANALYST Inhaled Oxygen Concentration - - Weight 80.3 kg (177 lb) 06/21/2019 4:57 PM ONLINE ADVERTISING ANALYST Height 152.4 cm (5') 06/21/2019 4:57 PM ONLINE ADVERTISING ANALYST Body Mass Index 34.57 06/21/2019 4:57 PM ONLINE ADVERTISING ANALYST Plan of Treatment Health Maintenance Due Date Last Done Comments CERVICAL CANCER SCREENING 09/17/2015 INFLUENZA VACCINE 01/27/2020 Procedures Procedure Name Priority Date/Time Associated Comments Diagnosis US PELVIC TRANSVAGINAL STAT 06/21/2019 4:58 R esults for this PM ONLINE ADVERTISING ANALYST procedure are i n the results section. US PELVIC STAT 06/21/2019 4:58 Results for this TRANSABDOMINAL PM ONLINE ADVERTISING ANALYST procedure are in the results section. ESTIMATED GFR STAT 06/21/2019 4:07 Results fo r this PM ONLINE ADVERTISING ANALYST procedure are i n the results section. COMPREHENSIVE METABOLIC STAT 06/21/2019 4:07 Results for this PANEL PM ONLINE ADVERTISING ANALYST procedure are i n the results section. HC COMPLETE BLD COUNT STAT 06/21/2019 4:07 Re sults for this W/AUTO DIFF PM ONLINE ADVERTISING ANALYST procedure are i n the results section. GRAM STAIN STAT 06/21/2019 3:59 Results for this PM ONLINE ADVERTISING ANALYST procedure are i n the results section. URINE CULTURE STAT 06/21/2019 3:59 Results fo r this PM ONLINE ADVERTISING ANALYST procedure are i n the results section. HCG QUALITATIVE, URINE STAT 06/21/2019 3:53 R esults for this SCREEN PM ONLINE ADVERTISING ANALYST procedure are i n the results section. URINALYSIS STAT 06/21/2019 3:53 Results for this PM ONLINE ADVERTISING ANALYST procedure are i n the results section. after 12/02/2018 Results US Pelvic Transabdominal (06/21/2019 4:58 PM ONLINE ADVERTISING ANALYST) Specimen Narrative Performed At EXAMINATIONS: [facility] US [...] was demonstrated within the pel ayanna cul-de-sac. [facility]-[id number] Procedure Note Interface, Radiology Results Incoming - 06/21/2019 5:05 PM ONLINE ADVERTISING ANALYST EXAMINATIONS: US PELVIC TRANSABDOMINAL US PELVIC TRANSVAGINAL [...] was demonstrated within the pel ayanna cul-de-sac. [facility]-[id number] Performing Organization Address City/State/Zipcode Phone Number [facility] [address] [place] [address] US Pelvic Transvaginal (06/21/2019 4:58 PM ONLINE ADVERTISING ANALYST) Specimen Narrative Performed At EXAMINATIONS: [facility] US PELVIC TRANSABDOMINAL US PELVIC TRANSVAGINAL CLINICAL [...] was demonstrated within the pel ayanna cul-de-sac. [facility]-[id number] Procedure Note Interface, Radiology Results Incoming - 06/21/2019 5:05 PM ONLINE ADVERTISING ANALYST EXAMINATIONS: US PELVIC TRANSABDOMINAL US PELVIC TRANSVAGINAL [...] was demonstrated within the pel ayanna cul-de-sac. [facility]-[id number] Performing Organization Address City/State/Zipcode Phone Number [facility] [address] [place] [address] Estimated GFR (06/21/2019 4:07 PM ONLINE ADVERTISING ANALYST) Estimated GFR >=90 mL/min/1.73 [facility] Comment: m2 [place] [facility] Units Interpretation [facility] G1 [...] 2014. Specimen Plasma specimen Performing Organization Address City/[facility]/Zipcode Phone Number DEPARTMENT OF PATHOLOGY AND [address] [place] [phone] [facility], [facility] [address] [place] [address] EM[facility]Y [facility]ARE CENTER CBC with platelet and differential (06/21/2019 4:07 PM ONLINE ADVERTISING ANALYST) Pathologist Sig nature WBC 9.58 4.50 - 11.00 k/uL [facility] EMERGENCY [facility] RBC 4.75 4.20 - 5.50 m/uL [facility] HGB 14.3 12.0 - 16.0 g/dL [facility] EMERGENCY [facility] HCT 42.2 37.0 - 47.0 % [facility] MCV 88.8 82.0 - 100.0 fL [facility] MCH 30.1 27.0 - 34.0 pg [facility] MCHC 33.9 31.0 - 37.0 g/dL [facility] RDW - SD 44.0 37.0 - 55.0 fL [facility] MPV 9.4 8.8 - 13.2 fL [facility] Platelet count 463 (H) 150 - 400 k/uL [facility] Neutrophils 57.1 39.0 - 69.0 % [facility] Lymphocytes 33.4 25.0 - 45.0 % [facility] Monocytes 8.5 0.0 - 10.0 % [facility] Eosinophils 0.6 0.0 - 5.0 % [facility] Basophils 0.4 0.0 - 1.0 % [facility] Specimen Blood Performing Organization Address City/State/Zipcode Phone Number DEPARTMENT OF PATHOLOGY AND [id number] [place] [phone] [facility], [facility] [address] [place] [address] EMERGENCY [facility] Comprehensive metabolic panel (06/21/2019 4:07 PM ONLINE ADVERTISING ANALYST) Pathologist Sig nature Sodium 138 128 - 145 mEq/L [facility] Potassium 4.2 3.6 - 5.1 mEq/L [facility] CO2 25 18 - 33 mEq/L [facility] Chloride 106 98 - 108 mEq/L [facility] Glucose 96 73 - 118 mg/dL [facility] Calcium 9.1 8.0 - 10.3 mg/dL [facility] BUN 10 7 - 22 mg/dL [facility] Creatinine 0.7 0.5 - 0.9 mg/dL [facility] Alkaline phosphatase 63 42 - 141 U/L [facility] ALT 24 10 - 47 U/L [facility] AST 16 11 - 38 U/L [facility] Total bilirubin 0.6 0.2 - 1.6 mg/dL [facility] Albumin 4.6 3.3 - 5.5 g/dL [facility] Protein 7.7 6.4 - 8.1 g/dL [facility] Anion gap 7@ANIO 7 - 15 mEq/L [facility] A/G ratio 1.5 0.7 - 3.8 [facility] Specimen Plasma specimen Performing Organization Address City/[facility] Phone Number DEPARTMENT OF PATHOLOGY AND [address] [place], [place] [phone] [facility] [address] [place] [address] EMERGENCY CARE CENTER Gram stain (06/21/2019 3:59 PM ONLINE ADVERTISING ANALYST) Gram stain result No WBC's or organisms seen. [facility] Comment: HOSPITAL Specimen Information Specimen Source: Urine Specimen Site: Urine, clean catch Specimen Urine - Urine, clean catch Performing Organization Address City/[facility] Phone Number [facility] DEPARTMENT OF PATHOLOGY AND [address] [place] [phone] [address] Urine culture (06/21/2019 3:59 PM ONLINE ADVERTISING ANALYST) Urine culture Mixed buddy 10-5 col/cc [facility] Comment: HOSPITAL Specimen Information Specimen Source: Urine Specimen Site: Urine, clean catch Specimen Urine - Urine, clean catch Performing Organization Address [facility] Phone Number [facility] DEPARTMENT OF PATHOLOGY AND [address] [place] [address] [phone] [address] Urinalysis (06/21/2019 3:53 PM ONLINE ADVERTISING ANALYST) Glucose, UA Negative Negative [facility] Bilirubin, UA Footnote Negative [place] Comment: [facility] Unable to report due to interference from color of uri la. [place] Corrected result; previously reported as Positiv [email or web address] on 06/21/2019 at 16:13 EMERGENCY CARE by [facility] Ketones, UA Negative Negative [facility] Specific gravity, 1.015 1.001 - 1.035 [facility] Blood, UA Large (A) Negative [facility] pH, UA 8.5 5.0 - 8.5 [facility] Protein, UA 3+ (A) Negative [facility] Urobilinogen, UA <2.0 <2.0 [facility] Nitrite, UA Negative Negative [facility] Leukocyte Footnote Negative [place] esterase, UA Comment: [facility]ORO[facility]RIAN Unable to report due to interference from color of uri la. [place] Corrected result; previously reported as Trace o n 06/21/2019 at 16:13 by [place] [facility] Color, UA Red [facility] Appearance, UA Clear [facility] Specimen Urine Performing Organization Address City/State/Zipcode Phone Number DEPARTMENT OF PATHOLOGY AND [id number] [place] [phone] [place] [address] EMERGENCY [facility] hCG qualitative, urine screen (06/21/2019 3:53 PM ONLINE ADVERTISING ANALYST) hCG qualitative, Negative [facility] urine Comment: [place] Sensitivity of HCG test: 25 mIU/mL [facility] Negative test results in patients suspected CENTER to be should be retested with a sample obtained 48-72 hours later, or by performing a quantitative assay. Specimen Urine Performing Organization Address City/[facility] Phone Number DEPARTMENT OF PATHOLOGY AND [address] [place] [phone] [place] [address] EMERGENCY CARE CENTER after 12/02/2018 Insurance Payer Benefit Plan / Subscriber ID Effective Dates Phone Addre ss Type Group MEDICAID MEDICAID xxxxxxxxx 2016-Present [employer] [facility] xxxxxxxxx 2016-Presen HMO CHOICE CH[facility]/STAR JOB[employer] t CIGNA CIGNA OPEN xxxxxxxxxxx 2016-Present HMO ACCESS/NETWORK BCBS BCBS CHOICE xxxxxxxxx 2019-Prese P PO PPO/FEDERAL nt EMPL PPO BCBS BCBS CHOICE xxxxxxxxxxxx 2019-Presen PPO PPO/FEDERAL t EMPL PPO Advance Directives For more information, please contact: [phone] Type Date Recorded Patient Personnel Recruiter Explanati on Advance Directives, Living Will and Medical Power of Dental Chairside Assistant
--- OUTSIDE RECORDS SUMMARY | 2019-12-03 21:03 | XMS REPORT | Continuity of Care Document ---
:1995 Author Organization [facility] t Address [address] [place] [address] Care Team Providers Name Role Phone Asked, Pcp Primary Care Physician Unavailable Casey Merchant MD Attending Clinician Payers Payer Name Policy Type Policy Number Effective Date Expiration Date Geovani yeager MEDICAIDMEDICAID xxxxxxxxx 2016 [employer] xxxxxxxxx 00:00:00 Abhishek tee 6-PresentMedicai d [facility] xxxxxxxxx 2016 [employer] [facility] [place] CHC/STAR [id number]-PresentHMO CIGNACIGNA OPEN xxxxxxxxxxx 2016 [employer] ACCESS/NETWORKxx 00:00:00 Abhishek tee -PresentHMO BCBSBCBS CHOICE xxxxxxxxx 2019 [employer] PPO/FEDERAL EMPL 00:00:00 Methodcipriano t OKLachilnwkc36/2 10/2018-PresentPP O Problems This patient has no known problems. Allergies, Adverse Reactions, Alerts Allergy Allergy Status Severity Reaction(s) Onset Inactive Treating Comm ents Source Name Type Date Date Clinician Nemesioorphcortez Propensi Active Palpitations 2018-06 [facility] nol ty to 2-25 Methodi Tartrate adverse 00:00: st reaction 00 s to drug morphine DA Active [facility] [place] codeine DA Active [place] [facility] [place] tramadol DA Active MT 2017-06 [facility] [place] Tramadol Propensi Active Other (See headache [facility] ty to Comments) 03-11 Methodi adverse 00:00: st reaction 00 s to drug Acetamin Propensi Active Shortness Of [facility] ophen-Co ty to Breath 03-11 Methodi deine adverse 00:00: st reaction 00 s to drug No Known DA Active U [facility] Allergie 3-14 [facility] [place] Family History Family Member Diagnosis Comments Start Date Stop Date Source Natural mother Diabetes [facility] Natural mother Menstrual problems [place] Social History Social Habit Start Date Stop Date Quantity Comments Source Sex Assigned At [facility] ethodist Alcohol intake 2019-06-21 2019-06-21 Current drinker [place] 00:00:00 00:00:00 of alcohol (finding) Alcohol Comment 2016-04-28 2016-04-28 social, weekly [place] 00:00:00 00:00:00 Smoking Status Start Date Stop Date Source Never smoker [facility] Medications Ordered Filled Start Stop Current Ordering [...] 2 [place] en-caff-pyr 2-25 tablets by Va thodi ilamine 17:05: mouth. st 500-60-15 17 [...] Q8H Take 1 Sophia ston ODT (ZOFRAN 08-22 tablet (8 Me thodi ODT) 8 MG [...] 10mg Q6H Take 1 [place] (TORadol) 106-21 tablet (10 Met hodi 10 mg 00:00: 00:00 mg total) st tablet 00 :00 by mouth every 6 (six) hours as needed for moderate pain (do not take with other NSAID) for up to 10 doses. NEXPLANON 2015-06- No Rodrigues 68 mg 0-13 06- Methodi implant 00:00: 00:00 st 00 :00 [...] blood 2019-06-21 15:44:00 123 mm[Hg] [place] pressure Diastolic blood 2019-06-21 15:44:00 81 mm[Hg] [place] pressure Heart rate 2019-06-21 15:44:00 119 /min Ravi Delong Body temperature 2019-06-21 15:44:00 36.17 [place] Respiratory rate 2019-06-21 15:44:00 18 /min [place] Oxygen saturation in 2019-06-21 15:44:00 99 /min [...] Future Scheduled 2020-01-27 INFLUENZA VACCINE [place] [facility] Test 00:00:00 [code = INFLUENZA VACCINE] Future Scheduled 2015-09-17 Screening for Rodrigues Me thodist Test 00:00:00 malignant neoplasm of cervix (procedure) [code = 474420560] Encounters Start End Encounter Admission Attending Care Care Encounter Source Date/Time Date/Time Type Type Clinicians Facility Department ID 2019-06-21 2019-06-[address] [facility] [id number] [facility] 00:00:00 00:00:00 LISETH Muhammad Method i st Results Test Description Test Time Test Comments Results Result Comments Source Urine culture 2019-06-23 10:07:15 Test Item Value Reference Range Interpretation Comme nts Urine culture isolate Mixed buddy 10-5 Sp ecimen InformationSpecimen (test code = 36036-5) col/cc Source : UrineSpecimen Site: Urine, clean catch [facility] MethodistGram [id number] 10:07:15 Test Item Value Reference Range Interpretation Comments Gram stain No WBC's or Specimen result (test organisms seen. InformationS pecimen code = 664-3) Source: UrineS pecimen Site: Urine, cl paramjit catch [facility] [id number] 17:15:49 Test Item Value Reference Range Interpretation Comments Glucose, UA (test code = Negative Negative 80415-9) Bilirubin, UA (test code Footnote Negative Cora ble to report due = 5770-3) to interference from color of urine.Corrected result; previou sly reported as Positive@UBIL o n 06/21/2019 at 1 6:13 by MD Ketones, UA (test code = Negative Negative 2514-8) Specific gravity, UA 1.015 1.001-1.035 (test code = 5811-5) Blood, UA (test code = Large Negative A 5794-3) pH, UA (test code = 8.5 5.0-8.5 5803-2) Protein, UA (test code = 3+ Negative A 08082-7) Urobilinogen, UA (test <2.0 <2.0 code = 33804-6) Nitrite, UA (test code = Negative Negative 5802-4) Leukocyte esterase, UA Footnote Negative Unabl e to report due (test code = 5799-2) to inte rference from color of urine.Corrected result; previou sly reported as Tra ce on 06/21/2019 at 1 6:13 by [place] Color, UA (test code = Red 5778-6) Appearance, UA (test Clear code = 5767-9) Lab Interpretation (test Abnormal code = 85561-9) [facility] MethodistCom[facility] metabolic [id number] 17:09:01 Test Item Value Reference Range Interpretation Comments Sodium (test code = 2951-2) 138 128- 145 mEq/L Potassium (test code = 2823-3) 4.2 3.6- 5.1 mEq/L CO2 (test code = 2027-9) 25 18- 33 mEq/L Chloride (test code = 2075-0) 106 98- 108 mEq/L Glucose (test code = 2345-7) 96 mg/dL 73-118 Calcium (test code = 60571-2) 9.1 mg/dL 8-10.3 BUN (test code = 3094-0) 10 mg/dL 7-22 Creatinine (test code = 2160-0) 0.7 mg/dL 0.5-0.9 Alkaline phosphatase (test code = 63 U/L 42-141 6768-6) ALT (test code = 1742-6) 24 U/L 10-47 AST (test code = 1920-8) 16 U/L 11-38 Total bilirubin (test code = 0.6 mg/dL 0.2-1.6 1975-2) Albumin (test code = 1751-7) 4.6 g/dL 3.3-5.5 Protein (test code = 2885-2) 7.7 g/dL 6.4-8.1 Anion gap (test code = 47594-7) 7@ANIO 7- 15 mEq/L A/G ratio (test code = 1759-0) 1.5 0.7-3.8 Rodrigues MethodistEstimated [id number] 17:09:01 Test Item Value Reference Range Interpretation Comments Estimated GFR (test >=90 mL/min/1.73 m2 [facility] code = 5488) InterpretationG 1 >=90 Normal or highG2 60-89 Mildly vprxofwlmN3s 45-59 Mildly to mode rately ecimlbfpcE5b 30-44 Moderately to severely decreasedG4 15-29 Severely decre asedG5 <15 Kidn ey failureThe eGFR was calculated usin g the Chronic Kidney Disease Epidemiology Co llaboration (CKD-EPI) equat ion. Interpretation is based on recommendations of the National Kidney Foundation-Kidn ey Disease Outcomes Qualit y Initiative (NKF-KDOQI) pub lished in 2014. Rodrigues Methodist[facility] Pelvic [id number] 17:02:27 Interface, Radiology Results 06/21/2019 5:05 PM CSTEXAMINATIONS: US PELVIC TRANSABDOMINALUS [...] fluid was demonstrated within the pelvic cul-de-sac. [facility]-[id number] [facility] Pelvic [id number] 17:02:27 Interface, Radiology Results - 06/21/2019 5:05 [...] fluid was demonstrated within the pelvic cul-de-sac. [facility]-[id number] [facility] with platelet and [id number] 16:58:15 Test Item Value Reference Range Interpretation Comments WBC (test code = 75315-2) 9.58 4.50- 11.00 k/uL RBC (test code = 33266-4) 4.75 m/uL 4.2-5.5 HGB (test code = 718-7) 14.3 g/dL 12-16 HCT (test code = 4544-3) 42.2 % 37-47 MCV (test code = 787-2) 88.8 fL 82-100 MCH (test code = 785-6) 30.1 pg 27-34 MCHC (test code = 786-4) 33.9 g/dL 31-37 RDW - SD (test code = 40703-7) 44.0 fL 37-55 MPV (test code = 36618-4) 9.4 fL 8.8-13.2 Platelet count (test code = 463 150- 400 k/uL H 02780-9) Neutrophils (test code = 28694-1) 57.1 % 39-69 Lymphocytes (test code = 90996-0) 33.4 % 25-45 Monocytes (test code = 05575-5) 8.5 % 0-10 Eosinophils (test code = 87053-1) 0.6 % 0-5 Basophils (test code = 30025-5) 0.4 % 0-1 Lab Interpretation (test code = Abnormal 87491-5) [facility], urine [id number] 16:13:05 Test Item Value Reference Range Interpretation Comments hCG qualitative, Negative Sensitivity of HCG test: urine (test code = 25 mIU/mL Negative test 6-3) results in linette ents suspected to be should be retes jd with a sample obtained 48-72 hours later, or by performing a qu antitative assay. Ravi [facility] W/AUTO [id number] 07:27:00 Test Item Value Reference Range Interpretation [...] NORMAL code = PLTMR) AG HEPATITIS B [id number] 04:15:00 Test Item Value Reference Range Interpretation Comments AG HEPATITIS B SURFACE (test code NONREACTIVE NONREACTIVE = HBSAG) AB HEPATITIS C [id number] 04:15:00 Test Item Value Reference Range Interpretation Comments AB HEPATITIS C (test code = NONREACTIVE NONREACTIVE HCVAB) SIGNAL TO CUTOFF (test code = 0.13 <0.80 N CUTOFF) RUBELLA [id number] 04:15:00 Test Item Value Reference Range Interpretation Comments RUBELLA SCREEN 70.2 IUnit/ml Results >10. 0IUnits/ml (test code = are considered positive RUBSC) inaccordance wi th the CLSI guidelines and based on the [employer] S tandard for Anti-Rubell a serum as anindicator of immune status and a br eakpoint to detect mostseropositiv e persons. AB [id number] 04:15:00 Test Item Value Reference Range Interpretation Comments AB TREPONEMA (test code = TREPAB) NONREACTIVE NONREACTIVE AG HEPATITIS B [id number] 04:00:00 Test Item Value Reference Range Interpretation Comments AG HEPATITIS B SURFACE (test code NONREACTIVE NONREACTIVE = HBSAG) AB HEPATITIS C [id number] 04:00:00 Test Item Value Reference Range Interpretation Comments AB HEPATITIS C (test code = HCVAB) NONREACTIVE SIGNAL TO CUTOFF (test code = CUTOFF) <0.80 RUBELLA [id number] 04:00:00 Test Item Value Reference Range Interpretation Comments RUBELLA SCREEN 70.2 IUnit/ml Results >10. 0IUnits/ml (test code = are considered positive RUBSC) inaccordance wi th the CLSI guidelines and based on the [employer] S tandard for Anti-Rubell a serum as anindicator of immune status and a br eakpoint to detect mostseropositiv e persons. AB [id number] 04:00:00 Test Item Value Reference Range Interpretation Comments AB TREPONEMA (test code = TREPAB) NONREACTIVE NONREACTIVE CBC W/AUTO [id number] 00:36:00 Test Item Value Reference Range Interpretation [...]
[2019-12-03] MEDS ORDERED: METHYLPREDNISOLONE 125 MG INJ ONE (21:20)
[2019-12-03] MEDS ORDERED: IPRATROPIUM BROM 0.5MG/2.5ML ONE (21:21)
[2019-12-03] MEDS ORDERED: ALBUTEROL 2.5 MG/3 ML NEB SOL ONE (21:21)
--- NOTE | 2019-12-03 22:22 | ER ---
Nurse's Notes [facility] Name: Carla Duncan Age: 24 yrs Sex: Female : 1995 Arrival Date: 12/03/2019 Time: 21:00 Bed 14 Private MD: Diagnosis: Asthma Presentation: 12/02 21:00 Initial Sepsis Screen: Does the patient have a suspected source of infection? No. vc Patient's initial sepsis screen is negative. 21:05 Chief complaint: Patient states: States she has had 2 asthma attacks today. + cough ll1 when feeling SOB. No fever. Coronavirus screen: Proceed with normal triage. Patient reports shortness of breath or difficulty breathing. Patient denies measured and/or subjective temperature greater than 100.4F prior to today's visit. Patient denies travel on a cruise ship or to a country the [facility] currently lists as an affected area. Patient denies contact with known and/or suspected case of COVID-19. Ebola Screen: Patient denies travel to an Ebola-affected area in the 21 days before illness onset. Initial Sepsis Screen: Does the patient meet any 2 criteria? HR > 90 bpm. No. Patient's initial sepsis screen is negative. Risk Assessment: Do you want to hurt yourself or someone else? Patient reports no desire to harm self or others. Onset of symptoms was December 03, 2019. 21:05 Method Of Arrival: Ambulatory ll1 21:05 Acuity: VENKATESH 3 ll1 Triage Assessment: 12/01 21:00 General: Behavior is calm, cooperative, appropriate for age. vc 21:00 General: Appears in no apparent distress. uncomfortable. Pain: Denies pain. vc Historical: - Allergies: 12/02 21:08 Codeine; ll1 21:08 Toradol; ll1 21:08 tramadol; ll1 21:08 Tussin; ll1 - PMHx: 21:08 Anxiety; Asthma; Bipolar disorder; Depression; Ovarian cyst; ll1 - PSHx: 21:08 ; ll1 - Immunization history:: Adult Immunizations up to date. - Social history:: Smoking status: Reported history of juuling and/or vaping. Patient/guardian denies using alcohol, street drugs. Screenin:00 Abuse screen: Denies threats or abuse. Nutritional screening: No deficits noted. vc Tuberculosis screening: No symptoms or risk factors identified. Fall Risk None identified. Assessment: 21:00 General: Appears distressed, uncomfortable. vc 21:00 Pain: Denies pain. Neuro: Level of Consciousness is awake, alert, obeys commands, vc Oriented to person, place, time, situation, Appropriate for age. Cardiovascular: Capillary refill < 3 seconds Patient's skin is warm and dry. Respiratory: Airway is patent Respiratory effort is even, unlabored, Respiratory pattern is regular, symmetrical. Respiratory: Respiratory effort is unlabored, labored, weak, Respiratory pattern is hyperventilation. GI: No signs and/or symptoms were reported involving the gastrointestinal system. : No signs and/or symptoms were reported regarding the genitourinary system. Derm: Skin is intact, is healthy with good turgor, Skin temperature is warm. Musculoskeletal: Circulation, motion, and sensation intact. Range of motion: intact in all extremities. 22:00 Reassessment: Patient appears in no apparent distress at this time. Patient and/or vc family updated on plan of care and expected duration. Pain level reassessed. Patient is alert, oriented x 3, equal unlabored respirations, skin warm/dry/pink. Vital Signs: 21:05 BP 117 / 98; Pulse 106; Resp 18; Temp 98.2; Pulse Ox 100% ; Pain 6/10; ll1 21:30 BP 132 / 84; Pulse 73; Resp 18; Pulse Ox 98% on R/A; vc 22:00 BP 116 / 72; Pulse 100; Resp 17; Pulse Ox 100% on R/A; vc ED Course: 21:00 Patient arrived in ED. cl3 21:00 Patient has correct armband on for positive identification. Bed in low position. Side vc rails up X2. Pulse ox on. NIBP on. 21:01 Mindy Allen RN is Primary Nurse. vc 21:01 Raimundo Pollack MD is Attending Physician. mh7 21:06 Triage completed. ll1 21:08 Arm band placed on Patient placed in an exam room, on a stretcher. ll1 21:25 No provider procedures requiring assistance completed. IV discontinued, intact, vc bleeding controlled, No redness/swelling at site. Pressure dressing applied. Administered Medications: 21:20 Drug: SOLU-Medrol 125 mg Route: IVP; Site: right antecubital; vc 22:29 Follow up: Response: No adverse reaction vc 21:21 Drug: DuoNeb (3:1) (2.5 mg - 0.5 mg) 3 ml Route: Nebulizer; vc 22:30 Follow up: Response: No adverse reaction vc Outcome: 12/01 22:25 Discharged to home ambulatory. vc Condition: good Discharge instructions given to patient, Instructed on discharge instructions, follow up and referral plans. Demonstrated understanding of instructions, follow-up care, medications, Prescriptions given X 2. 06 22:20 Discharge ordered by MD. mar 22:26 Patient left the ED. vc Signatures: Leonardo Coker cl3 Mindy Allen RN RN vc Roberta Coker RN RN ll1 Raimundo Pollack MD MD mh7 Corrections: (The following items were deleted from the chart) 21:56 21:46 General: Appears vc vc 22:27 22:00 Reassessment: Patient appears in no apparent distress at this time. Patient vc and/or family updated on plan of care and expected duration. Pain level reassessed. vc
--- NOTE | 2019-12-03 22:22 | EDPHYS ---
Physician Documentation [facility] Name: Carla Duncan Age: 24 yrs Sex: Female : 1995 Arrival Date: 12/03/2019 Time: 21:00 Bed 14 Private MD: ED Physician Raimundo Pollack HPI: 12/02 21:10 This 24 yrs old Female presents to ER via Ambulatory with complaints of Asthma mh7 Exacerbation. 21:10 The patient presents to the emergency department with wheezing, Current therapy: mh7 albuterol inhaler, that began after exposure to animal dander, after exposure to smoke, the patient was reported to have audible wheezing, non-productive cough, trouble breathing, Pre-hospital care: rescue inhaler, albuterol. Onset: The symptoms/episode began/occurred this morning. Modifying factors: The symptoms are alleviated by nothing, the symptoms are aggravated by animal dander, smoke. Associated signs and symptoms: Pertinent negatives: chest pain, choking, fever, headache, nausea, palpitations, rash, vomiting. Severity of symptoms: At their worst the symptoms were moderate just prior to arrival, today, in the emergency department the symptoms are unchanged despite home interventions. The patient has experienced similar episodes in the past, multiple times. Historical: - Allergies: 21:08 Codeine; ll1 21:08 Toradol; ll1 21:08 tramadol; ll1 21:08 Tussin; ll1 - PMHx: 21:08 Anxiety; Asthma; Bipolar disorder; Depression; Ovarian cyst; ll1 - PSHx: 21:08 ; ll1 - Immunization history:: Adult Immunizations up to date. - Social history:: Smoking status: Reported history of juuling and/or vaping. Patient/guardian denies using alcohol, street drugs. ROS: 21:10 Constitutional: Negative for fever, chills, and weight loss, Eyes: Negative for injury, mh7 pain, redness, and discharge, ENT: Negative for injury, pain, and discharge, Neck: Negative for injury, pain, and swelling, Cardiovascular: Negative for chest pain, palpitations, and edema, Abdomen/GI: Negative for abdominal pain, nausea, vomiting, diarrhea, and constipation, Back: Negative for injury and pain, : Negative for injury, bleeding, discharge, and swelling, MS/Extremity: Negative for injury and deformity, Skin: Negative for injury, rash, and discoloration, Neuro: Negative for headache, weakness, numbness, tingling, and seizure, Psych: Negative for depression, anxiety, suicide ideation, homicidal ideation, and hallucinations, Allergy/Immunology: Negative for hives, rash, and allergies, Endocrine: Negative for neck swelling, polydipsia, polyuria, polyphagia, and marked weight changes, Hematologic/Lymphatic: Negative for swollen nodes, abnormal bleeding, and unusual bruising. Exam: 21:10 Constitutional: This is a well developed, well nourished patient who is awake, alert, mh7 and in no acute distress. Head/Face: Normocephalic, atraumatic. Eyes: Pupils equal round and reactive to light, extra-ocular motions intact. Lids and lashes normal. Conjunctiva and sclera are non-icteric and not injected. Cornea within normal limits. Periorbital areas with no swelling, redness, or edema. Neck: Trachea midline, no thyromegaly or masses palpated, and no cervical lymphadenopathy. Supple, full range of motion without nuchal rigidity, or vertebral point tenderness. No Meningismus. Chest/axilla: Normal chest wall appearance and motion. Nontender with no deformity. No lesions are appreciated. Cardiovascular: Regular rate and rhythm with a normal S1 and S2. No gallops, murmurs, or rubs. Normal PMI, no JVD. No pulse deficits. 21:10 Abdomen/GI: Soft, non-tender, with normal bowel sounds. No distension or tympany. No guarding or rebound. No evidence of tenderness throughout. Back: No spinal tenderness. No costovertebral tenderness. Full range of motion. Skin: Warm, dry with normal turgor. Normal color with no rashes, no lesions, and no evidence of cellulitis. MS/ Extremity: Pulses equal, no cyanosis. Neurovascular intact. Full, normal range of motion. Neuro: Awake and alert, GCS 15, oriented to person, place, time, and situation. Cranial nerves II-XII grossly intact. Motor strength 5/5 in all extremities. Sensory grossly intact. Cerebellar exam normal. Normal gait. Psych: Awake, alert, with orientation to person, place and time. Behavior, mood, and affect are within normal limits. 21:10 Respiratory: the patient does not display signs of respiratory distress, Respirations: normal, Breath sounds: wheezing: expiratory that is mild, is heard diffusely, Respiratory rate: normal Vital Signs: 21:05 BP 117 / 98; Pulse 106; Resp 18; Temp 98.2; Pulse Ox 100% ; Pain 6/10; ll1 21:30 BP 132 / 84; Pulse 73; Resp 18; Pulse Ox 98% on R/A; vc 22:00 BP 116 / 72; Pulse 100; Resp 17; Pulse Ox 100% on R/A; vc MDM: 21:09 Patient medically screened. [facility] 22:19 Differential diagnosis: acute asthma, exercise-induced asthma, reactive airway, URI. [facility] Data reviewed: vital signs, nurses notes, old medical records. Data interpreted: Pulse oximetry: on room air is 100 %. Interpretation: normal. Counseling: I had a detailed discussion with the patient and/or guardian regarding: the historical points, exam findings, and any diagnostic results supporting the discharge/admit diagnosis, lab results, the need for outpatient follow up, to return to the emergency department if symptoms worsen or persist or if there are any questions or concerns that arise at home. Response to treatment: the patient's symptoms have resolved after treatment, the patient's blood pressure is in an acceptable range, mental status has returned to baseline, the patient no longer shows bradycardia, the patient is not short of breath, the patient is not tachycardic, the patient's pain is gone, the patient's temperature has normalized. Administered Medications: 21:20 Drug: SOLU-Medrol 125 mg Route: IVP; Site: right antecubital; vc 22:29 Follow up: Response: No adverse reaction vc 21:21 Drug: DuoNeb (3:1) (2.5 mg - 0.5 mg) 3 ml Route: Nebulizer; vc 22:30 Follow up: Response: No adverse reaction vc Disposition: 12/03/19 22:20 Discharged to Home. Impression: Asthma. - Condition is Stable. - Discharge Instructions: Asthma, Adult, [id number]. - Prescriptions for Tessalon Perles 100 mg Oral Capsule - take 1 capsule by ORAL route every 8 hours As needed; 15 capsule. Albuterol Sulfate 2.5 mg /3 mL (0.083 %) Inhalation Solution for Nebulization - inhale 1 unit by NEBULIZATION route every 8 hours As needed; 1 box. Prednisone 20 mg Oral Tablet - take 2 tablet by ORAL route once daily for 5 days; 10 tablet. Albuterol Sulfate 90 mcg/actuation - inhale 1-2 puff by INHALATION route every 4-6 hours; 1 Inhaler. - Medication Reconciliation Form, Thank You Letter, Antibiotic Education, Prescription Opioid Use form. - Follow up: Private Physician; When: 1 - 2 days; Reason: Worsening of condition, Recheck today's complaints, Re-evaluation by your physician. - Problem is an acute exacerbation. - Symptoms have improved. Signatures: Mindy Allen RN RN vc Roberta Coker RN RN 1 Raimundo Pollack MD MD mh7 Corrections: (The following items were deleted from the chart) 22:26 22:20 12/03/2019 22:20 Discharged to Home. Impression: Asthma. Condition is Stable. vc Forms are Medication Reconciliation Form, Thank You Letter, Antibiotic Education, Prescription Opioid Use. Follow up: Private Physician; When: 1 - 2 days; Reason: Worsening of condition, Recheck today's complaints, Re-evaluation by your physician. Problem is an acute exacerbation. Symptoms have improved. mh7
[2019-12-03 22:35] VITALS: BP 116/72; TEMP 98.2; O2SAT 100
== END 2019-12-03 22:26 | disposition home or self-care (01) ==
LOC: ER 20:59
DX: J45.901 Unspecified asthma with (acute) exacerbation (principal); Z88.6 Allergy status to analgesic agent; Z88.5 Allergy status to narcotic agent; Z88.8 Allergy status to other drugs, medicaments and biological substances; Z87.891 Personal history of nicotine dependence
CPT/HCPCS: 96374; 99284; J2930

== ENCOUNTER 2019-12-16 20:41 | Emergency (ER) | payer BC ==
--- OUTSIDE RECORDS SUMMARY | 2019-12-16 20:44 | XMS REPORT | Continuity of Care Document ---
:1995 Author Organization [facility] t Address [address] [place] [address] Care Team Providers Name Role Phone Asked, Pcp Primary Care Physician Unavailable Casey Merchant MD Attending Clinician Payers Payer Name Policy Type Policy Number Effective Date Expiration Date Geovani yeager MEDICAIDMEDICAID xxxxxxxxx 2016 [place] xxxxxxxxx 00:00:00 Abhishek tee 6-PresentMedicai d [facility] xxxxxxxxx 2016 [place] [facility] Yazidi CHC/STAR [id number] /2016-PresentHMO CIGNACIGNA OPEN xxxxxxxxxxx 2016 [place] ACCESS/NETWORKxx 00:00:00 Abhishek tee -PresentHMO BCBSBCBS CHOICE xxxxxxxxx 2019 [place] PPO/FEDERAL EMPL 00:00:00 Methodcipriano t [id number] 10/2018-PresentPP O Problems This patient has no known problems. Allergies, Adverse Reactions, Alerts Allergy Allergy Status Severity Reaction(s) Onset Inactive Treating Comm ents Source Name Type Date Date Clinician Nemesioorphcortez Propensi Active Palpitations 2018-06 [place] nol ty to 2-25 Methodi Tartrate adverse 00:00: st reaction 00 s to drug morphine DA [facility] [place] codeine DA Active MD [facility] [place] tramadol DA Active MD 2017-06 [facility] [place] Tramadol Propensi Active Other (See headache [place] ty to Comments) 03-11 Methodi adverse 00:00: st reaction 00 s to drug Acetamin Propensi Active Shortness Of [place] ophen-Co ty to Breath 03-11 Method[facility] deine adverse 00:00: st reaction 00 s to drug No Known DA Active U [facility] Allergie 3-14 [facility] [place] Family History Family Member Diagnosis Comments Start Date Stop Date Source Natural mother Diabetes [facility] Natural mother Menstrual problems [place] Y[place] Social History Social Habit Start Date Stop Date Quantity Comments Source Sex Assigned At [facility] ethodist Alcohol intake 2019-06-21 2019-06-21 Current drinker [place] 00:00:00 00:00:00 of alcohol (finding) Alcohol Comment 2016-04-28 2016-04-28 social, weekly [place] 00:00:00 00:00:00 Smoking Status Start Date Stop Date Source Never smoker [facility] Medications Ordered Filled Start Stop Current [...] 2 [place] en-caff-pyr 2-25 tablets by [place] thodi ilamine 17:05: mouth. st 500-60-15 17 [...] blood 2019-06-21 15:44:00 123 mm[Hg] [place] pressure Diastolic blood 2019-06-21 15:44:00 81 mm[Hg] [place] Yazidi pressure Heart rate 2019-06-21 15:44:00 119 /min Ravi Delong Body temperature 2019-06-21 15:44:00 36.17 [place] Respiratory rate 2019-06-21 15:44:00 18 /min [place] Oxygen saturation in 2019-06-21 15:44:00 99 /min [...] Future Scheduled 2020-01-27 INFLUENZA VACCINE Serg[place] n Yazidi Test 00:00:00 [code = INFLUENZA VACCINE] Future Scheduled 2015-09-17 Screening for Rodrigues Me thodist Test 00:00:00 malignant neoplasm of cervix (procedure) [code = 073621422] Encounters Start End Encounter Admission Attending Care Care Encounter Source Date/Time Date/Time Type Type Clinicians Facility Department ID 2019-06-21 2019-06-21 Emergency [facility] [id number] [place] 00:00:00 00:00:00 LISETH Muhammad Method i st Results Test Description Test Time Test Comments Results Result Comments Source Urine culture 2019-06-23 10:07:15 Test Item Value Reference Range Interpretation Comme nts Urine culture isolate Mixed buddy 10-5 Sp ecimen InformationSpecimen (test code = 36057-3) col/cc Source : UrineSpecimen Site: Urine, clean catch [place] MethodistGram [id number] 10:07:15 Test Item Value Reference Range Interpretation Comments Gram stain No WBC's or Specimen result (test organisms seen. InformationS pecimen code = 664-3) Source: UrineS pecimen Site: Urine, cl paramjit catch [place] [id number] 17:15:49 Test Item Value Reference Range Interpretation Comments Glucose, UA (test code = Negative Negative 69928-2) Bilirubin, UA (test code Footnote Negative Cora ble to report due = 5770-3) to interference from color of urine.Corrected result; previou sly reported as Positive@UBIL o n 06/21/2019 at 1 6:13 by [place] Ketones, UA (test code = Negative Negative 2514-8) Specific gravity, UA 1.015 1.001-1.035 (test code = 5811-5) Blood, UA (test code = Large Negative A 5794-3) pH, UA (test code = 8.5 5.0-8.5 5803-2) Protein, UA (test code = 3+ Negative A 98376-4) Urobilinogen, UA (test <2.0 <2.0 code = 21686-0) Nitrite, UA (test code = Negative Negative 5802-4) Leukocyte esterase, UA Footnote Negative Unabl e to report due (test code = 5799-2) to inte rference from color of urine.Corrected result; previou sly reported as Tra ce on 06/21/2019 at 1 6:13 by [place] Color, UA (test code = Red 5778-6) Appearance, UA (test Clear code = 5767-9) Lab Interpretation (test Abnormal code = 70026-5) [place] MethodistComprehensive metabolic [id number] 17:09:01 Test Item Value Reference Range Interpretation Comments Sodium (test code = 2951-2) 138 128- 145 mEq/L Potassium (test code = 2823-3) 4.2 3.6- 5.1 mEq/L CO2 (test code = 2027-9) 25 18- 33 mEq/L Chloride (test code = 2075-0) 106 98- 108 mEq/L Glucose (test code = 2345-7) 96 mg/dL 73-118 Calcium (test code = 83815-4) 9.1 mg/dL 8-10.3 BUN (test code = [...] g/dL 6.4-8.1 Anion gap (test code = 53744-8) 7@ANIO 7- 15 mEq/L A/G ratio (test code = 1759-0) 1.5 0.7-3.8 Rodrigues MethodistEstimated [id number] 17:09:01 Test Item Value Reference Range Interpretation Comments Estimated GFR (test >=90 mL/min/1.73 m2 [facility] Units code = 5488) InterpretationG 1 >=90 Normal or highG2 60-89 Mildly rcdueqyqiG8n 45-59 Mildly to mode rately lkqsfuasaJ9e 30-44 Moderately to severely decreasedG4 15-29 Severely decre asedG5 <15 Kidn ey failureThe eGFR was calculated usin g the Chronic Kidney Disease Epidemiology Co llaboration (CKD-EPI) equat ion. Interpretation is based on recommendations of the National Kidney Foundation-Kidn ey Disease Outcomes Qualit y Initiative (NKF-KDOQI) pub lished in 2014. Rodrigues MethodistUS Pelvic [id number] 17:02:27 Interface, Radiology Results 06/21/2019 5:05 PM [...] fluid was demonstrated within the pelvic cul-de-sac. [facility]-[id number] [facility] Pelvic [id number] 17:02:27 Interface, Radiology Results - 06/21/2019 5:05 [...] fluid was demonstrated within the pelvic cul-de-sac. [facility]-[id number] [facility] with platelet and [id number] 16:58:15 Test Item Value Reference Range Interpretation Comments WBC (test code = 31283-8) 9.58 4.50- 11.00 k/uL RBC (test code = 93897-4) 4.75 m/uL 4.2-5.5 HGB (test code = 718-7) 14.3 g/dL 12-16 HCT (test code = 4544-3) 42.2 % 37-47 MCV (test code = 787-2) 88.8 fL 82-100 MCH (test code = 785-6) 30.1 pg 27-34 MCHC (test code = 786-4) 33.9 g/dL 31-37 RDW - SD (test code = 23466-0) 44.0 fL 37-55 MPV (test code = 75533-3) 9.4 fL 8.8-13.2 Platelet count (test code = 463 150- 400 k/uL H 72058-3) Neutrophils (test code = 67748-2) 57.1 % 39-69 Lymphocytes (test code = 51501-2) 33.4 % 25-45 Monocytes (test code = 00594-6) 8.5 % 0-10 Eosinophils (test code = 74891-3) 0.6 % 0-5 Basophils (test code = 32174-4) 0.4 % 0-1 Lab Interpretation (test code = Abnormal 30321-0) [facility] qualitative, urine [id number] 16:13:05 Test Item Value Reference Range Interpretation Comments hCG qualitative, Negative Sensitivity of HCG test: urine (test code = 25 mIU/mL Negative test 6-3) results in linette ents suspected to be should be retes jd with a sample obtained 48-72 hours later, or by performing a qu antitative assay. Ravi [facility] W/AUTO [id number] 07:27:00 Test Item Value Reference Range Interpretation [...] NORMAL code = PLTMR) AG HEPATITIS B [id number] 04:15:00 Test Item Value Reference Range Interpretation Comments AG HEPATITIS B SURFACE (test code NONREACTIVE NONREACTIVE = HBSAG) AB HEPATITIS C [id number] 04:15:00 Test Item Value Reference Range Interpretation Comments AB HEPATITIS C (test code = NONREACTIVE NONREACTIVE HCVAB) SIGNAL TO CUTOFF (test code = 0.13 <0.80 N CUTOFF) RUBELLA [id number] 04:15:00 Test Item Value Reference Range Interpretation Comments RUBELLA SCREEN 70.2 IUnit/ml Results >10. 0IUnits/ml (test code = are considered positive RUBSC) inaccordance wi th the CLSI guidelines and based on the WH O International S tandard for Anti-Rubell a serum as anindicator of immune status and a br eakpoint to detect mostseropositiv e persons. AB [id number] 04:15:00 Test Item Value Reference Range Interpretation Comments AB TREPONEMA (test code = TREPAB) NONREACTIVE NONREACTIVE AG HEPATITIS B [id number] 04:00:00 Test Item Value Reference Range Interpretation Comments AG HEPATITIS B SURFACE (test code NONREACTIVE NONREACTIVE = HBSAG) AB HEPATITIS C [id number] 04:00:00 Test Item Value Reference Range Interpretation Comments AB HEPATITIS C (test code = HCVAB) NONREACTIVE SIGNAL TO CUTOFF (test code = CUTOFF) <0.80 RUBELLA [id number] 04:00:00 Test Item Value Reference Range Interpretation Comments RUBELLA SCREEN 70.2 IUnit/ml Results >10. 0IUnits/ml (test code = are considered positive RUBSC) inaccordance wi th the CLSI guidelines and based on the WH O International S tandard for Anti-Rubell a serum as anindicator of immune status and a br eakpoint to detect mostseropositiv e persons. AB [id number] 04:00:00 Test Item Value Reference Range Interpretation Comments AB TREPONEMA (test code = TREPAB) NONREACTIVE NONREACTIVE CBC W/AUTO [id number] 00:36:00 Test Item Value Reference Range Interpretation [...]
--- OUTSIDE RECORDS SUMMARY | 2019-12-16 20:44 | XMS REPORT | Clinical Summary ---
:1995 Author Organization [facility] Address [address] [place] [address] Care Team Providers Name Role Phone Asked, [...] ion; Lower abdominal pain; Vagina bleeding after 12/15/2018 Family History Medical History Relation Name Comments [...] Comments Blood Pressure 123/81 06/21/2019 3:44 PM BLADE OPERATOR Pulse 119 06/21/2019 3:44 PM BLADE OPERATOR Temperature 36.2 C (97.1 F) 06/21/2019 3:44 PM BLADE OPERATOR Respiratory Rate 18 06/21/2019 3:44 PM BLADE OPERATOR Oxygen Saturation 99% 06/21/2019 3:44 PM BLADE OPERATOR Inhaled Oxygen Concentration - - Weight 80.3 kg (177 lb) 06/21/2019 4:57 PM BLADE OPERATOR Height 152.4 cm (5') 06/21/2019 4:57 PM BLADE OPERATOR Body Mass Index 34.57 06/21/2019 4:57 PM BLADE OPERATOR Plan of Treatment Health Maintenance Due Date Last Done Comments CERVICAL CANCER SCREENING 09/17/2015 INFLUENZA VACCINE 01/27/2020 Procedures Procedure Name Priority Date/Time Associated Comments Diagnosis US PELVIC TRANSVAGINAL STAT 06/21/2019 4:58 R esults for this PM BLADE OPERATOR procedure are i n the results section. US PELVIC STAT 06/21/2019 4:58 Results for this TRANSABDOMINAL PM BLADE OPERATOR procedure are in the results section. ESTIMATED GFR STAT 06/21/2019 4:07 Results fo r this PM BLADE OPERATOR procedure are i n the results section. COMPREHENSIVE METABOLIC STAT 06/21/2019 4:07 Results for this PANEL PM BLADE OPERATOR procedure are i n the results section. HC COMPLETE BLD COUNT STAT 06/21/2019 4:07 Re sults for this W/AUTO DIFF PM BLADE OPERATOR procedure are i n the results section. GRAM STAIN STAT 06/21/2019 3:59 Results for this PM BLADE OPERATOR procedure are i n the results section. URINE CULTURE STAT 06/21/2019 3:59 Results fo r this PM BLADE OPERATOR procedure are i n the results section. HCG QUALITATIVE, URINE STAT 06/21/2019 3:53 R esults for this SCREEN PM BLADE OPERATOR procedure are i n the results section. URINALYSIS STAT 06/21/2019 3:53 Results for this PM BLADE OPERATOR procedure are i n the results section. after 12/15/2018 Results US Pelvic Transabdominal (06/21/2019 4:58 PM BLADE OPERATOR) Specimen Narrative Performed At EXAMINATIONS: [facility] US [...] was demonstrated within the pel ayanna cul-de-sac. [facility]-[id number] Procedure Note Interface, Radiology Results Incoming - 06/21/2019 5:05 PM BLADE OPERATOR EXAMINATIONS: US PELVIC TRANSABDOMINAL US PELVIC TRANSVAGINAL [...] was demonstrated within the pel ayanna cul-de-sac. [facility]-[id number] Performing Organization Address City/State/Zipcode Phone Number [place] [address] [place] [address] US Pelvic Transvaginal (06/21/2019 4:58 PM BLADE OPERATOR) Specimen Narrative Performed At EXAMINATIONS: [facility] US PELVIC TRANSABDOMINAL US PELVIC TRANSVAGINAL [...] was demonstrated within the pel ayanna cul-de-sac. [facility]-[id number] Procedure Note Interface, Radiology Results Incoming - 06/21/2019 5:05 PM BLADE OPERATOR EXAMINATIONS: US PELVIC TRANSABDOMINAL US PELVIC TRANSVAGINAL [...] was demonstrated within the pel ayanna cul-de-sac. [facility]-[id number] Performing Organization Address City/State/Zipcode Phone Number [facility] [address] [place] [address] Estimated GFR (06/21/2019 4:07 PM BLADE OPERATOR) Estimated GFR >=90 mL/min/1.73 [facility] Comment: m2 [place] [facility] Units Interpretation [facility] G1 [...] 2014. Specimen Plasma specimen Performing Organization Address City/[facility]/Zipcode Phone Number DEPARTMENT OF PATHOLOGY AND [address] [place] [phone] GENOMIC MEDICINE, [facility] [place] [address] [place] [address] EM[facility]Y [facility]ARE CENTER CBC with platelet and differential (06/21/2019 4:07 PM BLADE OPERATOR) Pathologist Sig nature WBC 9.58 4.50 - 11.00 k/uL [facility] EMERGENCY [facility] RBC 4.75 4.20 - 5.50 m/uL [facility] HGB 14.3 12.0 - 16.0 g/dL [facility] EMERGENCY [facility] HCT 42.2 37.0 - 47.0 % [facility] MCV 88.8 82.0 - 100.0 fL [facility] MCH 30.1 27.0 - 34.0 pg [facility] MCHC 33.9 31.0 - 37.0 g/dL [facility] RDW - SD 44.0 37.0 - 55.0 fL [facility] MPV 9.4 8.8 - 13.2 fL [facility] Platelet count 463 (H) 150 - 400 k/uL [facility] Neutrophils 57.1 39.0 - 69.0 % [facility] Lymphocytes 33.4 25.0 - 45.0 % [facility] Monocytes 8.5 0.0 - 10.0 % [facility] Eosinophils 0.6 0.0 - 5.0 % [facility] Basophils 0.4 0.0 - 1.0 % [facility] Specimen Blood Performing Organization Address City/State/Zipcode Phone Number DEPARTMENT OF PATHOLOGY AND [id number] [place] [phone] GENOMIC MEDICINE, [facility] [place] [address] [place] [address] EMERGENCY [facility] Comprehensive metabolic panel (06/21/2019 4:07 PM BLADE OPERATOR) Pathologist Sig nature Sodium 138 128 - 145 mEq/L [facility] Potassium 4.2 3.6 - 5.1 mEq/L [facility] CO2 25 18 - 33 mEq/L [facility] Chloride 106 98 - 108 mEq/L [facility] Glucose 96 73 - 118 mg/dL [facility] Calcium 9.1 8.0 - 10.3 mg/dL [facility] BUN 10 7 - 22 mg/dL [facility] Creatinine 0.7 0.5 - 0.9 mg/dL [facility] Alkaline phosphatase 63 42 - 141 U/L [facility] ALT 24 10 - 47 U/L [facility] AST 16 11 - 38 U/L [facility] Total bilirubin 0.6 0.2 - 1.6 mg/dL [facility] Albumin 4.6 3.3 - 5.5 g/dL [facility] Protein 7.7 6.4 - 8.1 g/dL [facility] Anion gap 7@ANIO 7 - 15 mEq/L [facility] A/G ratio 1.5 0.7 - 3.8 [facility] Specimen Plasma specimen Performing Organization Address City/[facility] Phone Number DEPARTMENT OF PATHOLOGY AND [address] [place], [place] [address] [facility] [address] [place] [address] EMERGENCY CARE CENTER Gram stain (06/21/2019 3:59 PM BLADE OPERATOR) Gram stain result No WBC's or organisms seen. DAVID GORDON Comment: HOSPITAL Specimen Information Specimen Source: Urine Specimen Site: Urine, clean catch Specimen Urine - Urine, clean catch Performing Organization Address City/[facility] Cent[facility]ode Phone Number [facility] DEPARTMENT OF PATHOLOGY AND [address] [place] [address] [address] [address] Urine culture (06/21/2019 3:59 PM BLADE OPERATOR) Urine culture Mixed buddy 10-5 col/cc DAVID METHODIS T isolate Comment: HOSPITAL Specimen Information Specimen Source: Urine Specimen Site: Urine, clean catch Specimen Urine - Urine, clean catch Performing Organization Address [facility] Phone Number [facility] DEPARTMENT OF PATHOLOGY AND [address] [place] [address] [phone] [address] Urinalysis (06/21/2019 3:53 PM BLADE OPERATOR) Glucose, UA Negative Negative [facility] Bilirubin, UA Footnote Negative [place] Comment: JUDAISM Unable to report due to interference from color of uri ok. [place] Corrected result; previously reported as Positiv e@UBIL on 06/21/2019 at 16:13 EMERGENCY CARE by [facility] Ketones, UA Negative Negative [facility] Specific gravity, 1.015 1.001 - 1.035 [facility] Blood, UA Large (A) Negative [facility] pH, UA 8.5 5.0 - 8.5 [facility] Protein, UA 3+ (A) Negative [facility] Urobilinogen, UA <2.0 <2.0 [facility] Nitrite, UA Negative Negative [facility] Leukocyte Footnote Negative [place] esterase, UA Comment: JUDAISM Unable to report due to interference from color of uri ok. [place] Corrected result; previously reported as Trace o n 06/21/2019 at 16:13 by [place] [facility] Color, UA Red [facility] Appearance, UA Clear [facility] Specimen Urine Performing Organization Address City/State/Zipcode Phone Number DEPARTMENT OF PATHOLOGY AND [id number] [place] [address] [place] [address] EMERGENCY [facility] hCG qualitative, urine screen (06/21/2019 3:53 PM BLADE OPERATOR) hCG qualitative, Negative [facility] urine Comment: [place] Sensitivity of HCG test: 25 mIU/mL [facility] Negative test results in patients suspected CENTER to be should be retested with a sample obtained 48-72 hours later, or by performing a quantitative assay. Specimen Urine Performing Organization Address City/[facility] Centercode Phone Number DEPARTMENT OF PATHOLOGY AND [address] [place] [address] [address] [place] [address] EMERGENCY CARE CENTER after 12/15/2018 Insurance Payer Benefit Plan / Subscriber ID Effective Dates Phone Addre ss Type Group MEDICAID MEDICAID xxxxxxxxx 2016-Present Med mygola [facility] xxxxxxxxx 2016-Presen HMO CHOICE CHC/STAR JOBY t CIGNA CIGNA OPEN xxxxxxxxxxx 2016-Present HMO ACCESS/NETWORK BCBS BCBS CHOICE xxxxxxxxx 2019-Prese P PO PPO/FEDERAL nt EMPL PPO BCBS BCBS CHOICE xxxxxxxxxxxx 2019-Presen PPO PPO/FEDERAL t EMPL PPO Advance Directives For more information, please contact: [phone] Type Date Recorded Patient [place] Roll Maker Explanati on Advance Directives, Living Will and Medical Power of Construction Area Manager
[2019-12-16] MEDS ORDERED: NA CHLORIDE 0.9% 1,000 ML ONE (21:47)
[2019-12-16 21:51] LABS: Urine Blood NEGATIVE (NEG); Urine Glucose NEGATIVE (NEG); Urine Protein TRACE (NEG); Urine pH 8.5 (5.0-7.0)
[2019-12-16 22:10] LABS: Urine Bacteria <20 /HPF (<20); Urine Culture Reflex Order NOT NEEDED; Urine RBC <5 /HPF (NONE SEEN)
[2019-12-16 22:11] LABS: Absolute Lymphocytes (CBC) 3.3 K/uL (0.7-4.9); Basophils % 0.5 % (0-1.3); Hematocrit 39.6 % (36.0-45.0); Lymphocytes % 32.1 % (15.3-44.8); RBC Red Blood Cell Count 4.36 M/uL (3.86-4.86)
[2019-12-16] MEDS ORDERED: ONDANSETRON 4 MG/2 ML VIAL ONE (22:17)
[2019-12-16] MEDS ORDERED: MORPHINE 4 MG/ML SYR ONE (22:17)
[2019-12-16 22:25] LABS: ALT/SGPT 24 U/L (12-78); AST/SGOT 7 U/L (15-37); Albumin 3.4 g/dL (3.4-5.0); Alkaline Phosphatase 61 U/L (45-117); BUN Blood Urea Nitrogen 12 mg/dL (7-18); Bicarbonate 24 mmol/L (21-32); Bilirubin Direct < 0.1 mg/dL (0-0.2); Bilirubin Total 0.3 mg/dL (0.2-1.0); Glucose Level 94 mg/dL (74-106); Lipase 80 U/L (73-393); Potassium 3.8 mmol/L (3.5-5.1); Protein, Total 6.7 g/dL (6.4-8.2); Sodium Level 140 mmol/L (136-145)
--- NOTE | 2019-12-17 00:32 | EDPHYS ---
Physician Documentation [facility] Name: Carla Duncan Age: 24 yrs Sex: Female : 1995 Arrival Date: 12/16/2019 Time: 20:45 Bed DIS2 Private MD: ED Physician Michael Yuan HPI: 12/15 21:36 This 24 yrs old Female presents to ER via Ambulatory with complaints of Fever, pm1 Nausea/Vomiting/Diarrhea. 21:36 The patient presents to the emergency department with nausea, vomiting, diarrhea, right pm1 flank pain. Onset: The symptoms/episode began/occurred last night. Possible causes: unknown. The symptoms are aggravated by nothing. The symptoms are alleviated by OTC meds. Associated signs and symptoms: Pertinent positives: fever, chest pain, shortness of breath, Pertinent negatives: dysuria. Severity of symptoms: in the emergency department the symptoms are worse. The patient has not experienced similar symptoms in the past. Patient with 3-4 episodes of vomiting and diarrhea since onset. 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 - Social history:: Smoking status: Reported history of juuling and/or vaping. Patient/guardian denies using alcohol, street drugs. ROS: 21:36 Eyes: Negative for injury, pain, redness, and discharge, ENT: Negative for injury, pm1 pain, and discharge, Neck: Negative for injury, pain, and swelling, Cardiovascular: Negative for chest pain, palpitations, and edema. 21:36 : Negative for injury, bleeding, discharge, and swelling, MS/Extremity: Negative for injury and deformity, Skin: Negative for injury, rash, and discoloration, Neuro: Negative for headache, weakness, numbness, tingling, and seizure. 21:36 Constitutional: Positive for body aches, fever, Negative for poor PO intake. 21:36 Respiratory: Positive for cough, Negative for shortness of breath, sputum production, wheezing. 21:36 Abdomen/GI: Positive for nausea, vomiting, and diarrhea, Negative for abdominal pain. 21:36 Back: Positive for flank pain, on the right. Exam: 21:36 Constitutional: This is a well developed, well nourished patient who is awake, alert, pm1 and in no acute distress. Head/Face: Normocephalic, atraumatic. ENT: Nares patent. No nasal discharge, no septal abnormalities noted. Tympanic membranes are normal and external auditory canals are clear. Oropharynx with no redness, swelling, or masses, exudates, or evidence of obstruction, uvula midline. Mucous membranes moist. Neck: Trachea midline, no thyromegaly or masses palpated, and no cervical lymphadenopathy. Supple, full range of motion without nuchal rigidity, or vertebral point tenderness. No Meningismus. Chest/axilla: Normal chest wall appearance and motion. Nontender with no deformity. No lesions are appreciated. Cardiovascular: Regular rate and rhythm with a normal S1 and S2. No gallops, murmurs, or rubs. Normal PMI, no JVD. No pulse deficits. Respiratory: Lungs have equal breath sounds bilaterally, clear to auscultation and percussion. No rales, rhonchi or wheezes noted. No increased work of breathing, no retractions or nasal flaring. Abdomen/GI: Soft, non-tender, with normal bowel sounds. No distension or tympany. No guarding or rebound. No evidence of tenderness throughout. Back: No spinal tenderness. No costovertebral tenderness. Full range of motion. Skin: Warm, dry with normal turgor. Normal color with no rashes, no lesions, and no evidence of cellulitis. MS/ Extremity: Pulses equal, no cyanosis. Neurovascular intact. Full, normal range of motion. 21:36 Neuro: Exam negative for acute changes, Orientation: is normal, Mentation: is normal, Motor: is normal, moves all fours. Vital Signs: 21:07 BP 132 / 83; Pulse 89; Resp 18; Pulse Ox 100% ; Pain 8/10; ll1 21:36 Temp 98.7; ll1 12/16 00:32 BP 121 / 85; Pulse 85; Resp 18; Temp 97.7; Pulse Ox 100% on R/A; mg2 MDM: 12/15 21:11 Patient medically screened. atif 23:11 Data reviewed: vital signs. Data interpreted: Pulse oximetry: on room air is 100 %. pm1 Interpretation: normal. Counseling: I had a detailed discussion with the patient and/or guardian regarding: the historical points, exam findings, and any diagnostic results supporting the discharge/admit diagnosis, lab results, radiology results, the need for outpatient follow up, to return to the emergency department if symptoms worsen or persist or if there are any questions or concerns that arise at home. 12/15 21:36 Order name: Basic Metabolic Panel; Complete Time: 22:26 pm12/15 21:36 Order name: CBC with Diff; Complete Time: 22:19 pm12/15 21:36 Order name: Hepatic Function; Complete Time: 22:26 pm12/15 21:36 Order name: Lipase; Complete Time: 22:26 pm12/15 21:36 Order name: Urine Microscopic Only; Complete Time: 22:19 pm12/15 21:48 Order name: Urine Dipstick--Ancillary (enter results); Complete Time: 21:57 12/15 21:36 Order name: Urine Dipstick-Ancillary (obtain specimen); Complete Time: 21:51 pm12/15 21:36 Order name: CT Abd/Pelvis - IV Contrast Only 12/15 21:48 Order name: Urine --Ancillary (enter results); Complete Time: 21:57 12/15 23:16 Order name: Flu; Complete Time: 00:30 pm12/15 23:16 Order name: COVID-19 pm12/15 21:36 Order name: Urine Test (obtain specimen); Complete Time: 21:51 pm12/15 21:36 Order name: IV Saline Lock; Complete Time: 21:50 pm12/15 21:36 Order name: Labs collected and sent; Complete Time: 21:51 pm1 Administered Medications: 21:50 Drug: NS 0.9% 1000 ml Route: IV; Rate: 1000 ml; Site: right antecubital; mg2 23:00 Follow up: Response: No adverse reaction; IV Status: Completed infusion; IV Intake: mg2 1000ml 22:09 Drug: morphine 4 mg Route: IVP; Site: right antecubital; mg2 23:00 Follow up: Response: No adverse reaction mg2 22:09 Drug: Zofran (Ondansetron) 4 mg Route: IVP; Site: right antecubital; mg2 12/16 00:43 Follow up: Response: No adverse reaction; Marked relief of symptoms mg2 Disposition: 04:24 Co-signature as Attending Physician, Michael Yuan MD I agree with the assessment and atif plan of care. Disposition: 12/17/19 00:31 Discharged to Home. Impression: Unspecified abdominal pain, Vomiting, Diarrhea, unspecified. - Condition is Stable. - Discharge Instructions: Abdominal Pain, Adult, Food Choices to Help Relieve Diarrhea, Adult, Viral Gastroenteritis, Adult. - Prescriptions for Zofran ODT 4 mg Oral tablet,disintegrating - place 1 tablet by TRANSLINGUAL route every 8 hours As needed; 12 tablet. - Medication Reconciliation Form, Thank You Letter, Antibiotic Education, Prescription Opioid Use form. - Follow up: Emergency Department; When: As needed; Reason: Worsening of condition. Follow up: Private Physician; When: 2 - 3 days; Reason: Recheck today's complaints, Continuance of care, Re-evaluation by your physician. - Problem is new. - Symptoms have improved. Signatures: Dispatcher [employer] EDMichael Locke MD MD cha Marinas, Patrick, PLANER SETTER PLANER SETTER pm1 Austen Perez RN RN mg2 Roberta Coker RN RN ll1 Corrections: (The following items were deleted from the chart) 00:46 00:31 12/17/2019 00:31 Discharged to Home. Impression: Unspecified abdominal mg2 painVomiting; Diarrhea, unspecified. Condition is Stable. Forms are Medication Reconciliation Form, Thank You Letter, Antibiotic Education, Prescription Opioid Use. Follow up: Emergency Department; When: As needed; Reason: Worsening of condition. Follow up: Private Physician; When: 2 - 3 days; Reason: Recheck today's complaints, Continuance of care, Re-evaluation by your physician. Problem is new. Symptoms have improved. pm1
--- NOTE | 2019-12-17 00:32 | ER ---
Nurse's Notes [facility] Name: Carla Duncan Age: 24 yrs Sex: Female : 1995 Arrival Date: 12/16/2019 Time: 20:45 Bed DIS2 Private MD: Diagnosis: Vomiting;Diarrhea, unspecified;Unspecified abdominal pain Presentation: 12/15 21:07 Chief complaint: Patient states: States fever, dizziness, SOB, N/V/D since last night. ll1 Fever up to 103 at home. + body aches. Coronavirus screen: Surgical mask placed on patient. Patient moved to private room, placed in contact and droplet isolation with eye protection until further assessment. Patient denies a cough. Patient reports shortness of breath or difficulty breathing. Patient reports a measured and/or subjective temperature greater than 100.4F. Patient denies travel on a cruise ship or to a country the [facility] currently lists as an affected area. Patient denies contact with known and/or suspected case of COVID-19. Ebola Screen: Patient denies travel to an Ebola-affected area in the 21 days before illness onset. Initial Sepsis Screen: Does the patient meet any 2 criteria? No. Patient's initial sepsis screen is negative. Risk Assessment: Do you want to hurt yourself or someone else? Patient reports no desire to harm self or others. Onset of symptoms was December 15, 2019. 21:07 Method Of Arrival: Ambulatory ll1 21:07 Acuity: VENKATESH 3 ll1 21:52 Initial Sepsis Screen: Does the patient have a suspected source of infection? No. mg2 Patient's initial sepsis screen is negative. Triage Assessment: 21:53 General: Appears in no apparent distress. GI: Reports. 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 - Social history:: Smoking status: Reported history of juuling and/or vaping. Patient/guardian denies using alcohol, street drugs. Screenin:06 Abuse screen: Denies threats or abuse. Denies injuries from another. Nutritional mg2 screening: No deficits noted. Tuberculosis screening: No symptoms or risk factors identified. Fall Risk None identified. Assessment: 21:05 General: Appears in no apparent distress. comfortable, Behavior is calm, cooperative. mg2 Pain: Complains of pain in whole body especially back and joints Pain does not radiate. Quality of pain is described as aching, Pain began gradually, 1 day ago. Is intermittent. Neuro: Level of Consciousness is awake, alert, obeys commands, Oriented to person, place, time, situation. Cardiovascular: Capillary refill < 3 seconds Patient's skin is warm and dry. Respiratory: Airway is patent Respiratory effort is even, unlabored, Respiratory pattern is regular, symmetrical. GI: Abdomen is non-distended. : No signs and/or symptoms were reported regarding the genitourinary system. EENT: No signs and/or symptoms were reported regarding the EENT system. Derm: Skin is intact, is healthy with good turgor, Skin is pink, warm \T\ dry. normal. Musculoskeletal: Reports whole body ache. 22:54 Reassessment: Patient appears in no apparent distress at this time. Patient and/or mg2 family updated on plan of care and expected duration. Pain level reassessed. Patient is alert, oriented x 3, equal unlabored respirations, skin warm/dry/pink. 12/16 00:42 Reassessment: Patient appears in no apparent distress at this time. mg2 Vital Signs: 12/15 21:07 BP 132 / 83; Pulse 89; Resp 18; Pulse Ox 100% ; Pain 8/10; ll1 21:36 Temp 98.7; ll1 12/16 00:32 BP 121 / 85; Pulse 85; Resp 18; Temp 97.7; Pulse Ox 100% on R/A; mg2 ED Course: 12/15 20:45 Patient arrived in ED. es 21:05 Austen Perez RN is Primary Nurse. mg2 21:08 Skyler Krause NP is PHCP. pm1 21:08 Michael Yuan MD is Attending Physician. pm1 21:09 Triage completed. ll1 21:09 Arm band placed on Patient placed in an exam room, on a stretcher. ll1 21:50 Inserted saline lock: 20 gauge in right antecubital area, using aseptic technique. mg2 Blood collected. 21:51 No provider procedures requiring assistance completed. mg2 21:52 Patient has correct armband on for positive identification. Pulse ox on. NIBP on. Door mg2 closed. Warm blanket given. 22:35 CT Abd/Pelvis - IV Contrast Only In Process Unspecified. EDMS 12/16 00:43 IV discontinued, intact, bleeding controlled, No redness/swelling at site. Pressure mg2 dressing applied. Administered Medications: 12/15 21:50 Drug: NS 0.9% 1000 ml Route: IV; Rate: 1000 ml; Site: right antecubital; mg2 23:00 Follow up: Response: No adverse reaction; IV Status: Completed infusion; IV Intake: mg2 1000ml 22:09 Drug: morphine 4 mg Route: IVP; Site: right antecubital; mg2 23:00 Follow up: Response: No adverse reaction mg2 22:09 Drug: Zofran (Ondansetron) 4 mg Route: IVP; Site: right antecubital; mg2 12/16 00:43 Follow up: Response: No adverse reaction; Marked relief of symptoms mg2 Intake: 12/15 23:00 IV: 1000ml; Total: 1000ml. mg2 Outcome: 12/16 00:31 Discharge ordered by MD. pm1 00:43 Discharged to home ambulatory, with family. mg2 00:43 Condition: stable 00:43 Discharge instructions given to patient, Instructed on discharge instructions, follow up and referral plans. medication usage, Demonstrated understanding of instructions, follow-up care, medications, Prescriptions given X 00:46 Patient left the ED. mg2 Addendum: 12/21/2019 14:30 Addendum: Other Patient notified of positive COVID results by CALE Corona. HX of s s asthma. Pt still c/o shortness of breath. Decadron 4 mg, take 4 tabs daily x 2 days # 8 called into pharmacy of choice ([facility]) as recommended and prescribed by CALE Ley. Signatures: Dispatcher [employer] EDIA Angelcia Herrera Shelby, RN RN ss Skyler Krause, SPIN TABLE OPERATOR SPIN TABLE OPERATOR pm1 Austen Perez, RN RN mg2 Roberta Coker, RN RN ll1
[2019-12-17 00:54] VITALS: O2SAT 100
[2019-12-17 01:01] VITALS: BP 121/85; TEMP 97.7
--- NOTE | 2019-12-17 19:30 | RAD REPORT ---
EXAM DESCRIPTION: CT - Abdomen Pelvis W Contrast - 12/16/2019 10:34 pm CLINICAL HISTORY: 24-year-old female with flank pain. Fever, dizziness, shortness of breath, nausea, vomiting and diarrhea. COMPARISON: 11/15/2014. TECHNIQUE: CT of the abdomen and pelvis was performed following intravenous administration of contra st. Oral contrast was not administered. Multiplanar reformatted images were provided. This exam was p erformed according to our departmental dose optimization program which includes use of automated expo sure control, adjustment of the mA and/or kV according to patient size and/or use of iterative recons truction technique. FINDINGS: Chest: Evaluation through the lung bases reveals no focal opacity, pleural effusion or pne umothorax. Heart size is within normal limits. No pericardial effusion. Abdomen and pelvis: The liver, gallbladder, pancreas, spleen, bilateral kidneys and bilateral adrenal glands are within normal limits. The vessels are patent and normal in caliber. No abdominopelvic lymph nodes are noted to be pathologically enlarged by CT measurement criteria. The bowel is within normal limits without abnormal bowel wall thickness or bowel dilation. No free air. No free abdominopelvic fluid collections. The appendix is within normal limits. The uter us and adnexa are within normal limits of a contrast-enhanced CT examination. The LEFT adnexa reveals a crenulated focus of rim enhancement measuring 2.5 cm, (series 4, image 68) compatible with corpus luteum type cyst. The osseous structures are within normal limits. IMPRESSION: 1. No specific acute intra-abdominal findings are noted to suggest etiology of the patient's abdomina l pain. 2. Left-sided 2.5 cm corpus luteum ovarian cyst. No follow-up imaging is recommended. Reference: J Am Matt Radiol 2013;10:[id number] Electronically signed by: Carla Odell MD 12/16/2019 10:51 PM CDT Due to temporary technical issues with the PACS/Fluency reporting system, reports are being signed by the in house radiologistwithout review asa courtesy toensure prompt reporting. The interpreting radi ologist is fully responsible for the content of the report.
== END 2019-12-17 00:46 | disposition home or self-care (01) ==
LOC: ER 20:41
DX: U07.1 COVID-19 (principal); R10.9 Unspecified abdominal pain; R19.7 Diarrhea, unspecified; F31.9 Bipolar disorder, unspecified; Z88.5 Allergy status to narcotic agent; Z88.8 Allergy status to other drugs, medicaments and biological substances
CPT/HCPCS: 96361; 85025; 80048; 36415; 81025; 80076; 83690; 87804 ×2; 74177; 96375; 96374; 99284; U0002; Q9967; J7030; J2405; 81003; 81015

== ENCOUNTER 2019-12-31 21:42 | Emergency (ER) | payer BC ==
--- OUTSIDE RECORDS SUMMARY | 2019-12-31 21:44 | XMS REPORT | Clinical Summary ---
:1995 Author Organization [facility] Address [address] [place] [address] Care Team Providers Name Role Phone Asked, [...] ion; Lower abdominal pain; Vagina bleeding after 12/30/2018 Family History Medical History Relation Name Comments [...] Comments Blood Pressure 123/81 06/21/2019 3:44 PM CONSULTING UTILITY FORESTER Pulse 119 06/21/2019 3:44 PM CONSULTING UTILITY FORESTER Temperature 36.2 C (97.1 F) 06/21/2019 3:44 PM CONSULTING UTILITY FORESTER Respiratory Rate 18 06/21/2019 3:44 PM CONSULTING UTILITY FORESTER Oxygen Saturation 99% 06/21/2019 3:44 PM CONSULTING UTILITY FORESTER Inhaled Oxygen Concentration - - Weight 80.3 kg (177 lb) 06/21/2019 4:57 PM CONSULTING UTILITY FORESTER Height 152.4 cm (5') 06/21/2019 4:57 PM CONSULTING UTILITY FORESTER Body Mass Index 34.57 06/21/2019 4:57 PM CONSULTING UTILITY FORESTER Plan of Treatment Health Maintenance Due Date Last Done Comments CERVICAL CANCER SCREENING 09/17/2015 INFLUENZA VACCINE 01/27/2020 Procedures Procedure Name Priority Date/Time Associated Comments Diagnosis US PELVIC TRANSVAGINAL STAT 06/21/2019 4:58 R esults for this PM [employer]ULTING UTILITY [employer]ESTER procedure are i n the results section. US PELVIC STAT 06/21/2019 4:58 Results for this TRANSABDOMINAL PM [employer]ULTING UTILITY FORESTER procedure are in the results section. ESTIMATED GFR STAT 06/21/2019 4:07 Results fo r this PM [employer]ULTING UTILITY FORESTER procedure are i n the results section. COMPREHENSIVE METABOLIC STAT 06/21/2019 4:07 Results for this PANEL PM CONSULTING UTILITY FORESTER procedure are i n the results section. HC COMPLETE BLD COUNT STAT 06/21/2019 4:07 Re sults for this W/AUTO DIFF PM [employer]ULTING UTILITY [employer]ESTER procedure are i n the results section. GRAM STAIN STAT 06/21/2019 3:59 Results for this PM [employer]SULTING UTILITY FORESTER procedure are i n the results section. URINE CULTURE STAT 06/21/2019 3:59 Results fo r this PM [employer]ULTING [employer]ILITY FORESTER procedure are i n the results section. HCG QUALITATIVE, URINE STAT 06/21/2019 3:53 R esults for this SCREEN PM [employer]ULTING UTILITY [employer]ESTER procedure are i n the results section. URINALYSIS STAT 06/21/2019 3:53 Results for this PM CONSULTING UTILITY FORESTER procedure are i n the results section. after 12/30/2018 Results US Pelvic Transabdominal (06/21/2019 4:58 PM CONSULTING UTILITY FORESTER) Specimen Narrative Performed At EXAMINATIONS: [facility] US [...] was demonstrated within the pel ayanna cul-de-sac. [facility]-[id number] Procedure Note Interface, Radiology Results Incoming - 06/21/2019 5:05 PM CONSULTING UTILITY FORESTER EXAMINATIONS: US PELVIC TRANSABDOMINAL US PELVIC TRANSVAGINAL [...] was demonstrated within the pel ayanna cul-de-sac. [facility]-[id number] Performing Organization Address City/State/Zipcode Phone Number [facility] [address] [place] [address] US Pelvic Transvaginal (06/21/2019 4:58 PM CONSULTING UTILITY FORESTER) Specimen Narrative Performed At EXAMINATIONS: [facility] US PELVIC TRANSABDOMINAL US PELVIC TRANSVAGINAL [...] was demonstrated within the pel ayanna cul-de-sac. [facility]-[id number] Procedure Note Interface, Radiology Results Incoming - 06/21/2019 5:05 PM CONSULTING UTILITY FORESTER EXAMINATIONS: US PELVIC TRANSABDOMINAL US PELVIC TRANSVAGINAL [...] was demonstrated within the pel ayanna cul-de-sac. [facility]-[id number] Performing Organization Address City/State/Zipcode Phone Number [facility] [address] [place] [address] Estimated GFR (06/21/2019 4:07 PM CONSULTING UTILITY FORESTER) Estimated GFR >=90 mL/min/1.73 [facility] Comment: m2 [place] [facility] [place] Units Interpretation [facility] G1 >=90 [...] 2014. Specimen Plasma specimen Performing Organization Address City/[facility]/Zipcode Phone Number DEPARTMENT OF PATHOLOGY AND [address] [place] [address] 7 [phone] GENOMIC MEDICINE, [facility] [address] [place] [address] [facility]ARE [facility] CBC with platelet and differential (06/21/2019 4:07 PM CONSULTING UTILITY FORESTER) Pathologist Sig nature WBC 9.58 4.50 - 11.00 k/uL [facility] EMERGENCY [facility] RBC 4.75 4.20 - 5.50 m/uL [facility] HGB 14.3 12.0 - 16.0 g/dL [facility] EMERGENCY [facility] HCT 42.2 37.0 - 47.0 % [facility] MCV 88.8 82.0 - 100.0 fL [facility] MCH 30.1 27.0 - 34.0 pg [facility] MCHC 33.9 31.0 - 37.0 g/dL [facility] RDW - SD 44.0 37.0 - 55.0 fL [facility] MPV 9.4 8.8 - 13.2 fL [facility] Platelet count 463 (H) 150 - 400 k/uL [facility] Neutrophils 57.1 39.0 - 69.0 % [facility] Lymphocytes 33.4 25.0 - 45.0 % [facility] Monocytes 8.5 0.0 - 10.0 % [facility] Eosinophils 0.6 0.0 - 5.0 % [facility] Basophils 0.4 0.0 - 1.0 % [facility] Specimen Blood Performing Organization Address City/State/Zipcode Phone Number DEPARTMENT OF PATHOLOGY AND [id number] [place] [address] 7 [phone] GENOMIC MEDICINE, [facility] [address] [place] [address] EMERGENCY [facility] Comprehensive metabolic panel (06/21/2019 4:07 PM CONSULTING UTILITY FORESTER) Pathologist Sig nature Sodium 138 128 - 145 mEq/L [facility] Potassium 4.2 3.6 - 5.1 mEq/L [facility] CO2 25 18 - 33 mEq/L [facility] Chloride 106 98 - 108 mEq/L [facility] Glucose 96 73 - 118 mg/dL [facility] Calcium 9.1 8.0 - 10.3 mg/dL [facility] BUN 10 7 - 22 mg/dL [facility] Creatinine 0.7 0.5 - 0.9 mg/dL [facility] Alkaline phosphatase 63 42 - 141 U/L [facility] ALT 24 10 - 47 U/L [facility] AST 16 11 - 38 U/L [facility] Total bilirubin 0.6 0.2 - 1.6 mg/dL [facility] Albumin 4.6 3.3 - 5.5 g/dL [facility] Protein 7.7 6.4 - 8.1 g/dL [facility] Anion gap 7@ANIO 7 - 15 mEq/L [facility] A/G ratio 1.5 0.7 - 3.8 [facility] Specimen Plasma specimen Performing Organization Address City/[facility] Phone Number DEPARTMENT OF PATHOLOGY AND [address] [place], [place] [address] [facility] [address] [place] [address] EMERGENCY CARE CENTER Gram stain (06/21/2019 3:59 PM CONSULTING UTILITY FORESTER) Gram stain result No WBC's or organisms seen. DAVID GORDON Comment: HOSPITAL Specimen Information Specimen Source: Urine Specimen Site: Urine, clean catch Specimen Urine - Urine, clean catch Performing Organization Address City/[facility] Cent[facility] Phone Number [facility] DEPARTMENT OF PATHOLOGY AND [address] [place] [address] [phone] [address] Urine culture (06/21/2019 3:59 PM CONSULTING UTILITY FORESTER) Urine culture Mixed buddy 10-5 col/cc [facility] isolate Comment: HOSPITAL Specimen Information Specimen Source: Urine Specimen Site: Urine, clean catch Specimen Urine - Urine, clean catch Performing Organization Address [facility] Phone Number [facility] DEPARTMENT OF PATHOLOGY AND [address] [place] [address] [phone] [address] Urinalysis (06/21/2019 3:53 PM CONSULTING UTILITY FORESTER) Glucose, UA Negative Negative [facility] Bilirubin, UA Footnote Negative [facility] Comment: TENRIISM Unable to report due to interference from color of uri al. [place] Corrected result; previously reported as Positiv e@UBIL on 06/21/2019 at 16:13 EMERGENCY CARE by [facility] Ketones, UA Negative Negative [facility] Specific gravity, 1.015 1.001 - 1.035 [facility] Blood, UA Large (A) Negative [facility] pH, UA 8.5 5.0 - 8.5 [facility] Protein, UA 3+ (A) Negative [facility] Urobilinogen, UA <2.0 <2.0 [facility] Nitrite, UA Negative Negative [facility] Leukocyte Footnote Negative [facility] esterase, UA Comment: TENRIISM Unable to report due to interference from color of uri al. [place] Corrected result; previously reported as Trace o n 06/21/2019 at 16:13 by [place] [facility] Color, UA Red [facility] Appearance, UA Clear [facility] Specimen Urine Performing Organization Address City/State/Zipcode Phone Number DEPARTMENT OF PATHOLOGY AND [id number] [place] [address] [place] [address] EMERGENCY [facility] CENTER hCG qualitative, urine screen (06/21/2019 3:53 PM CONSULTING UTILITY FORESTER) hCG qualitative, Negative [facility] urine Comment: [place] Sensitivity of HCG test: 25 mIU/mL [facility] Negative test results in patients suspected CENTER to be should be retested with a sample obtained 48-72 hours later, or by performing a quantitative assay. Specimen Urine Performing Organization Address City/[facility] Cent[facility]ode Phone Number DEPARTMENT OF PATHOLOGY AND [address] [place] [address] [address] [place] [address] EMERGENCY CARE CENTER after 12/30/2018 Insurance Payer Benefit Plan / Subscriber ID Effective Dates Phone Addre ss Type Group MEDICAID MEDICAID xxxxxxxxx 2016-Present Med [employer] [facility] xxxxxxxxx 2016-Presen HMO CHOICE CHC/STAR JOBY t CIGNA CIGNA OPEN xxxxxxxxxxx 2016-Present HMO ACCESS/NETWORK BCBS BCBS CHOICE xxxxxxxxx 2019-Prese P PO PPO/FEDERAL nt EMPL PPO BCBS BCBS CHOICE xxxxxxxxxxxx 2019-Presen PPO PPO/FEDERAL t EMPL PPO Advance Directives For more information, please contact: [phone] Type Date Recorded Patient [employer] Supervisor Explanati on Advance Directives, Living Will and Medical Power of Ux Design Manager
--- OUTSIDE RECORDS SUMMARY | 2019-12-31 21:45 | XMS REPORT | Continuity of Care Document ---
:1995 Author Organization [facility] t Address [address] [place] [address] Care Team Providers Name Role Phone Asked, Pcp Primary Care Physician Unavailable Casey Merchant MD Attending Clinician Payers Payer Name Policy Type Policy Number Effective Date Expiration Date Geovani yeager MEDICAIDMEDICAID xxxxxxxxx 2016 [place] xxxxxxxxx 00:00:00 Abhishek tee 6-PresentMedicai d [facility] xxxxxxxxx 2016 [place] [facility] [employer] CHC/STAR [id number] /2016-PresentHMO CIGNACIGNA OPEN xxxxxxxxxxx 2016 [place] ACCESS/NETWORKxx 00:00:00 Abhishek tee -PresentHMO BCBSBCBS CHOICE xxxxxxxxx 2019 [place] PPO/FEDERAL EMPL 00:00:00 Methodcipriano t [id number] 10/2018-PresentPP O Problems This patient has no known problems. Allergies, Adverse Reactions, Alerts Allergy Allergy Status Severity Reaction(s) Onset Inactive Treating Comm ents Source Name Type Date Date Clinician Nemesioorphcortez Propensi Active Palpitations 2018-06 [place] nol ty to 2-25 [facility] Tartrate adverse 00:00: st reaction 00 s to drug morphine DA Active [facility] [place] codeine DA Active [facility] [place] tramadol DA Active CA 2017-06 [facility] [place] Tramadol Propensi Active Other (See headache [place] ty to Comments) 03-11 [facility] adverse 00:00: st reaction 00 s to drug Acetamin Propensi Active Shortness Of [place] ophen-Co ty to Breath 03-11 [facility] deine adverse 00:00: st reaction 00 s to drug No Known DA Active U [facility] Allergie 3-14 [facility] [place] Family History Family Member Diagnosis Comments Start Date Stop Date Source Natural mother Diabetes [facility] Natural mother Menstrual problems [place] [facility] Social History Social Habit Start Date Stop Date Quantity Comments Source Sex Assigned At [facility] ethodist Alcohol intake 2019-06-21 2019-06-21 Current drinker [place] [facility] 00:00:00 00:00:00 of alcohol (finding) Alcohol Comment 2016-04-28 2016-04-28 social, weekly [place] [facility] 00:00:00 00:00:00 Smoking Status Start Date Stop Date Source Never smoker [facility] Medications Ordered Filled Start Stop Current Ordering [...] 2 [place] en-caff-pyr 2-25 tablets by Hi thodi ilamine 17:05: mouth. st 500-60-15 17 [...] blood 2019-06-21 15:44:00 123 mm[Hg] [place] [facility] pressure Diastolic blood 2019-06-21 15:44:00 81 mm[Hg] [place] [facility] pressure Heart rate 2019-06-21 15:44:00 119 /min Ravi Delong Body temperature 2019-06-21 15:44:00 36.17 [place] [facility] Respiratory rate 2019-06-21 15:44:00 18 /min [place] [facility] Oxygen saturation in 2019-06-21 15:44:00 99 /min [...] Future Scheduled 2020-01-27 INFLUENZA VACCINE [place] [facility] Test 00:00:00 [code = INFLUENZA VACCINE] Future Scheduled 2015-09-17 Screening for Rodrig[facility] Me thodist Test 00:00:00 malignant neoplasm of cervix (procedure) [code = 637120498] Encounters Start End Encounter Admission Attending Care Care Encounter Source Date/Time Date/Time Type Type Clinicians Facility Department ID 2019-06-21 2019-06-21 Emergency [facility] [id number] 49 [place] 00:00:00 00:00:00 LISETH Muhammad Method i st Results Test Description Test Time Test Comments Results Result Comments Source Urine culture 2019-06-23 10:07:15 Test Item Value Reference Range Interpretation Comme nts Urine culture isolate Mixed buddy 10-5 Sp ecimen InformationSpecimen (test code = 47408-8) col/cc Source : UrineSpecimen Site: Urine, clean catch [place] MethodistGram [id number] 10:07:15 Test Item Value Reference Range Interpretation Comments Gram stain No WBC's or Specimen result (test organisms seen. InformationS pecimen code = 664-3) Source: UrineS pecimen Site: Urine, cl paramjit catch [place] [id number] 17:15:49 Test Item Value Reference Range Interpretation Comments Glucose, UA (test code = Negative Negative 74687-4) Bilirubin, UA (test code Footnote Negative Cora ble to report due = 5770-3) to interference from color of urine.Corrected result; previou sly reported as Positive@UBIL o n 06/21/2019 at 1 6:13 by [place] Ketones, UA (test code = Negative Negative 2514-8) Specific gravity, UA 1.015 1.001-1.035 (test code = 5811-5) Blood, UA (test code = Large Negative A 5794-3) pH, UA (test code = 8.5 5.0-8.5 5803-2) Protein, UA (test code = 3+ Negative A 71798-2) Urobilinogen, UA (test <2.0 <2.0 code = 18979-9) Nitrite, UA (test code = Negative Negative 5802-4) Leukocyte esterase, UA Footnote Negative Unabl e to report due (test code = 5799-2) to inte rference from color of urine.Corrected result; previou sly reported as Tra ce on 06/21/2019 at 1 6:13 by [place] Color, UA (test code = Red 5778-6) Appearance, UA (test Clear code = 5767-9) Lab Interpretation (test Abnormal code = 21427-0) [place] MethodistComprehensive metabolic [id number] 17:09:01 Test Item Value Reference Range Interpretation Comments Sodium (test code = 2951-2) 138 128- 145 mEq/L Potassium (test code = 2823-3) 4.2 3.6- 5.1 mEq/L CO2 (test code = 2027-9) 25 18- 33 mEq/L Chloride (test code = 2075-0) 106 98- 108 mEq/L Glucose (test code = 2345-7) 96 mg/dL 73-118 Calcium (test code = 56140-6) 9.1 mg/dL 8-10.3 BUN (test code = [...] g/dL 6.4-8.1 Anion gap (test code = 31806-1) 7@ANIO 7- 15 mEq/L A/G ratio (test code = 1759-0) 1.5 0.7-3.8 Rodrigues MethodistEstimated [id number] 17:09:01 Test Item Value Reference Range Interpretation Comments Estimated GFR (test >=90 mL/min/1.73 m2 [facility] Units code = 5488) InterpretationG 1 >=90 Normal or highG2 60-89 Mildly sugfkmqnnK5j 45-59 Mildly to mode rately kdacgysluP5n 30-44 Moderately to severely decreasedG4 15-29 Severely decre asedG5 <15 Kidn ey failureThe eGFR was calculated usin g the Chronic Kidney Disease Epidemiology Co llaboration (CKD-EPI) equat ion. Interpretation is based on recommendations of the National Kidney Foundation-Kidn ey Disease Outcomes Qualit y Initiative (NKF-KDOQI) pub lished in 2014. Rodrigues MethodistUS Pelvic [id number] 17:02:27 Interface, Radiology Results 06/21/2019 5:05 PM [...] fluid was demonstrated within the pelvic cul-de-sac. [facility]-[id number] [facility] Pelvic [id number] 17:02:27 Interface, Radiology Results - 06/21/2019 5:05 [...] fluid was demonstrated within the pelvic cul-de-sac. [facility]-[id number] [facility] with platelet and [id number] 16:58:15 Test Item Value Reference Range Interpretation Comments WBC (test code = 64317-1) 9.58 4.50- 11.00 k/uL RBC (test code = 15954-0) 4.75 m/uL 4.2-5.5 HGB (test code = 718-7) 14.3 g/dL 12-16 HCT (test code = 4544-3) 42.2 % 37-47 MCV (test code = 787-2) 88.8 fL 82-100 MCH (test code = 785-6) 30.1 pg 27-34 MCHC (test code = 786-4) 33.9 g/dL 31-37 RDW - SD (test code = 79010-8) 44.0 fL 37-55 MPV (test code = 72331-8) 9.4 fL 8.8-13.2 Platelet count (test code = 463 150- 400 k/uL H 75647-7) Neutrophils (test code = 04262-0) 57.1 % 39-69 Lymphocytes (test code = 78012-0) 33.4 % 25-45 Monocytes (test code = 49871-9) 8.5 % 0-10 Eosinophils (test code = 18529-4) 0.6 % 0-5 Basophils (test code = 01217-6) 0.4 % 0-1 Lab Interpretation (test code = Abnormal 82633-9) [facility] qualitative, urine [id number] 16:13:05 Test Item Value Reference Range Interpretation Comments hCG qualitative, Negative Sensitivity of HCG test: urine (test code = 25 mIU/mL Negative test 6-3) results in linette ents suspected to be should be retes jd with a sample obtained 48-72 hours later, or by performing a qu antitative assay. Ravi [facility] W/AUTO [id number] 07:27:00 Test Item Value Reference Range Interpretation [...] NORMAL code = PLTMR) AG HEPATITIS B [id number] 04:15:00 Test Item Value Reference Range Interpretation Comments AG HEPATITIS B SURFACE (test code NONREACTIVE NONREACTIVE = HBSAG) AB HEPATITIS C [id number] 04:15:00 Test Item Value Reference Range Interpretation Comments AB HEPATITIS C (test code = NONREACTIVE NONREACTIVE HCVAB) SIGNAL TO CUTOFF (test code = 0.13 <0.80 N CUTOFF) RUBELLA [id number] 04:15:00 Test Item Value Reference Range Interpretation Comments RUBELLA SCREEN 70.2 IUnit/ml Results >10. 0IUnits/ml (test code = are considered positive RUBSC) inaccordance wi th the CLSI guidelines and based on the [employer] S tandard for Anti-Rubell a serum as anindicator of immune status and a br eakpoint to detect mostseropositiv e persons. AB [id number] 04:15:00 Test Item Value Reference Range Interpretation Comments AB TREPONEMA (test code = TREPAB) NONREACTIVE NONREACTIVE AG HEPATITIS B [id number] 04:00:00 Test Item Value Reference Range Interpretation Comments AG HEPATITIS B SURFACE (test code NONREACTIVE NONREACTIVE = HBSAG) AB HEPATITIS C [id number] 04:00:00 Test Item Value Reference Range Interpretation Comments AB HEPATITIS C (test code = HCVAB) NONREACTIVE SIGNAL TO CUTOFF (test code = CUTOFF) <0.80 RUBELLA [id number] 04:00:00 Test Item Value Reference Range Interpretation Comments RUBELLA SCREEN 70.2 IUnit/ml Results >10. 0IUnits/ml (test code = are considered positive RUBSC) inaccordance wi th the CLSI guidelines and based on the [employer] S tandard for Anti-Rubell a serum as anindicator of immune status and a br eakpoint to detect mostseropositiv e persons. AB [id number] 04:00:00 Test Item Value Reference Range Interpretation Comments AB TREPONEMA (test code = TREPAB) NONREACTIVE NONREACTIVE CBC W/AUTO [id number] 00:36:00 Test Item Value Reference Range Interpretation [...]
--- NOTE | 2019-12-31 23:01 | EDPHYS ---
Physician Documentation [facility] Name: Carla Duncan Age: 24 yrs Sex: Female : 1995 Arrival Date: 12/31/2019 Time: 21:44 Bed 19 Private MD: ED Physician Hal Watters HPI: 12/30 22:40 This 24 yrs old Female presents to ER via Ambulatory with complaints of Cough. kb 22:40 The patient or guardian reports cough, described as mild, difficulty breathing. Onset: kb The symptoms/episode began/occurred yesterday. Severity of symptoms: At their worst the symptoms were mild, moderate, in the emergency department the symptoms are unchanged. Modifying factors: The symptoms are alleviated by nothing, the symptoms are aggravated by nothing. Associated signs and symptoms: The patient has no apparent associated signs or symptoms. The patient has experienced similar episodes in the past. The patient has not recently seen a physician. Pt reports she tested positive for COVID on December 11. States she got a letter from the health department stating she completed her quarantine and could resume normal activity. States she is still having shortness of breath and cough. States "I have this shortness of breath and cough normally because of asthma. This isn't the same as when I had bland.". 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 - Social history:: Smoking status: Patient denies any tobacco usage or history of. ROS: 22:40 Constitutional: Negative for fever, chills, and weight loss, Cardiovascular: Negative kb for chest pain, palpitations, and edema, Abdomen/GI: Negative for abdominal pain, nausea, vomiting, diarrhea, and constipation, Back: Negative for injury and pain, MS/Extremity: Negative for injury and deformity, Skin: Negative for injury, rash, and discoloration, Neuro: Negative for headache, weakness, numbness, tingling, and seizure. 22:40 Respiratory: Positive for cough, shortness of breath, Negative for dyspnea on exertion, hemoptysis, orthopnea, pleurisy, sputum production, wheezing. Exam: 22:40 Constitutional: This is a well developed, well nourished patient who is awake, alert, kb and in no acute distress. Head/Face: Normocephalic, atraumatic. Chest/axilla: Normal chest wall appearance and motion. Nontender with no deformity. No lesions are appreciated. Cardiovascular: Regular rate and rhythm with a normal S1 and S2. No gallops, murmurs, or rubs. Normal PMI, no JVD. No pulse deficits. Respiratory: Lungs have equal breath sounds bilaterally, clear to auscultation and percussion. No rales, rhonchi or wheezes noted. No increased work of breathing, no retractions or nasal flaring. Abdomen/GI: Soft, non-tender, with normal bowel sounds. No distension or tympany. No guarding or rebound. No evidence of tenderness throughout. Skin: Warm, dry with normal turgor. Normal color with no rashes, no lesions, and no evidence of cellulitis. MS/ Extremity: Pulses equal, no cyanosis. Neurovascular intact. Full, normal range of motion. Neuro: Awake and alert, GCS 15, oriented to person, place, time, and situation. Cranial nerves II-XII grossly intact. Motor strength 5/5 in all extremities. Sensory grossly intact. Cerebellar exam normal. Normal gait. Vital Signs: 21:53 BP 123 / 79; Pulse 105; Resp 15; Temp 97.6(TE); Pulse Ox 99% on R/A; Weight 85.28 kg; ss Height 5 ft. 0 in. (152.40 cm); Pain 6/10; 22:43 BP 120 / 91; Pulse 104; Resp 18; Pulse Ox 99% on R/A; dh4 21:53 Body Mass Index 36.72 (85.28 kg, 152.40 cm) ss MDM: 22:01 Patient medically screened. kb 22:42 Data reviewed: vital signs, nurses notes. Data interpreted: Pulse oximetry: on room air kb is 99 %. Interpretation: normal. 23:00 Counseling: I had a detailed discussion with the patient and/or guardian regarding: the kb historical points, exam findings, and any diagnostic results supporting the discharge/admit diagnosis, radiology results, the need for outpatient follow up, a family practitioner, to return to the emergency department if symptoms worsen or persist or if there are any questions or concerns that arise at home. 12/30 21:56 Order name: Chest Single View XRAY kb Administered Medications: No medications were administered Disposition: 12/31 04:20 Co-signature as Attending Physician, Hal Watters MD. rn Disposition: 12/31/19 23:00 Discharged to Home. Impression: Asthma, Cough. - Condition is Stable. - Discharge Instructions: Asthma, Adult, [id number], Cough, Adult, [id number]. - Medication Reconciliation Form, Thank You Letter, Antibiotic Education, Prescription Opioid Use form. - Follow up: Emergency Department; When: As needed; Reason: Worsening of condition. Follow up: Private Physician; When: 2 - 3 days; Reason: Recheck today's complaints, Continuance of care, Re-evaluation by your physician. Signatures: Dispatcher [employer] EDMD Francie Maynard, CLIN NURSE SPEC-C CLIN NURSE SPEC-Ckb Hal Watters MD MD rn Smirch, Shelby, RN RN ss Calcote, Vanessa, RN RN vc Corrections: (The following items were deleted from the chart) 12/30 22:42 22:40 The patient or guardian reports difficulty breathing, ariel 23:11 23:00 12/31/2019 23:00 Discharged to Home. Impression: Asthma; Cough. Condition is vc Stable. Forms are Medication Reconciliation Form, Thank You Letter, Antibiotic Education, Prescription Opioid Use. Follow up: Emergency Department; When: As needed; Reason: Worsening of condition. Follow up: Private Physician; When: 2 - 3 days; Reason: Recheck today's complaints, Continuance of care, Re-evaluation by your physician. kb
--- NOTE | 2019-12-31 23:01 | ER ---
Nurse's Notes [facility] Name: Carla Duncan Age: 24 yrs Sex: Female : 1995 Arrival Date: 12/31/2019 Time: 21:44 Bed 19 Private MD: Diagnosis: Asthma;Cough Presentation: 12/30 21:53 Chief complaint: Patient states: "I've had pneumonia before and I feel like I have it ss again. When I lay down I can't breathe. We both recovered from the virus a week ago. I'm always out of breath and when I do I get dizzy.". Coronavirus screen: Surgical mask placed on patient. Patient moved to private room, placed in contact and droplet isolation with eye protection until further assessment. Patient reports a cough. Patient reports shortness of breath or difficulty breathing. Patient denies measured and/or subjective temperature greater than 100.4F prior to today's visit. Patient denies travel on a cruise ship or to a country the [facility] currently lists as an affected area. Patient reports contact with known and/or suspected case of COVID-19. Ebola Screen: Patient denies exposure to infectious person. Patient denies travel to an Ebola-affected area in the 21 days before illness onset. Initial Sepsis Screen: Does the patient meet any 2 criteria? No. Patient's initial sepsis screen is negative. Does the patient have a suspected source of infection? No. Patient's initial sepsis screen is negative. Risk Assessment: Do you want to hurt yourself or someone else? Patient reports no desire to harm self or others. Onset of symptoms was November 2019. 21:53 Method Of Arrival: Ambulatory ss 21:53 Acuity: VENKATESH 3 ss Triage Assessment: 22:00 General: Appears in no apparent distress. Behavior is calm, cooperative, appropriate vc for age. Pain: Complains of pain in chest Pain does not radiate. Pain currently is 6 out of 10 on a pain scale. Quality of pain is described as sharp, Is episodic, Alleviated by rest, Aggravated by coughing. 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 - Social history:: Smoking status: Patient denies any tobacco usage or history of. Screenin:57 Abuse screen: Denies threats or abuse. Denies injuries from another. Nutritional ss screening: No deficits noted. Tuberculosis screening: Never had TB. 22:00 Fall Risk None identified. vc Assessment: 22:00 General: Appears in no apparent distress. comfortable, Behavior is calm, cooperative, vc appropriate for age. Pain: Complains of pain in right ankle and chest Pain does not radiate. Neuro: Level of Consciousness is awake, alert, obeys commands, Oriented to person, place, time, situation, Appropriate for age. Cardiovascular: Capillary refill < 3 seconds Patient's skin is warm and dry. Respiratory: Airway is patent Respiratory effort is even, unlabored, Respiratory pattern is regular, symmetrical. GI: No signs and/or symptoms were reported involving the gastrointestinal system. : No signs and/or symptoms were reported regarding the genitourinary system. Derm: Skin is intact, is healthy with good turgor. Musculoskeletal: Circulation, motion, and sensation intact. Range of motion: intact in all extremities. 22:59 Reassessment: Patient appears in no apparent distress at this time. Patient and/or vc family updated on plan of care and expected duration. Pain level reassessed. Patient is alert, oriented x 3, equal unlabored respirations, skin warm/dry/pink. Vital Signs: 21:53 BP 123 / 79; Pulse 105; Resp 15; Temp 97.6(TE); Pulse Ox 99% on R/A; Weight 85.28 kg; ss Height 5 ft. 0 in. (152.40 cm); Pain 6/10; 22:43 BP 120 / 91; Pulse 104; Resp 18; Pulse Ox 99% on R/A; dh4 21:53 Body Mass Index 36.72 (85.28 kg, 152.40 cm) ED Course: 21:44 Patient arrived in ED. ag3 21:47 Francie Maynard [facility]-C [facility]. kb 21:47 Hal Watters MD is Attending Physician. kb 21:55 Triage completed. ss 21:56 Arm band placed on left wrist. ss 22:00 Patient has correct armband on for positive identification. Bed in low position. Pulse vc ox on. NIBP on. 22:26 Chest Single View XRAY In Process Unspecified. EDMS 22:30 Mindy Allen, RN is Primary Nurse. vc 23:10 No provider procedures requiring assistance completed. Patient did not have IV access vc during this emergency room visit. Administered Medications: No medications were administered Outcome: 23:00 Discharge ordered by . kb 23:10 Discharged to home ambulatory. vc 23:10 Condition: good 23:10 Discharge instructions given to patient, Instructed on discharge instructions, follow up and referral plans. Demonstrated understanding of instructions, follow-up care. 23:11 Patient left the ED. vc Signatures: Dispatcher [employer] EDMS Francie Maynard, UNBUNDLER-C UNBUNDLER-Jenny Aj RN RN Velma Molina ag3 Mindy Allen, JUDI LAU Chidi Munroe 4
[2019-12-31 23:24] VITALS: TEMP 97.6; O2SAT 99
[2019-12-31 23:25] VITALS: BP 120/91
--- NOTE | 2020-01-01 08:39 | RAD REPORT ---
EXAM DESCRIPTION: RAD - Chest Single View - 12/31/2019 10:26 pm CLINICAL HISTORY: COUGH Chest pain. COMPARISON: Chest Single View dated 11/17/2019; Chest Pa And Lat (2 Views) dated 10/12/2019; Chest Pa And Lat (2 Views) dated 05/21/2019; Chest Pa And Lat (2 Views) dated 04/24/2019 FINDINGS: Portable technique limits examination quality. The lungs are grossly clear. The heart is normal in size. No displaced fractures. IMPRESSION: No acute intrathoracic process suspected.
== END 2019-12-31 23:11 | disposition home or self-care (01) ==
LOC: ER 21:42
DX: J45.909 Unspecified asthma, uncomplicated (principal)
CPT/HCPCS: 71045; 99283

== ENCOUNTER 2020-01-04 07:56 | Emergency (ER) | payer BC, OTHER ==
--- OUTSIDE RECORDS SUMMARY | 2020-01-04 08:05 | XMS REPORT | Clinical Summary ---
:1995 Author Organization [facility] Address [address] [place] [address] Care Team Providers Name Role Phone Asked, [...] ion; Lower abdominal pain; Vagina bleeding after 01/03/2019 Family History Medical History Relation Name Comments [...] Comments Blood Pressure 123/81 06/21/2019 3:44 PM [facility] Pulse 119 06/21/2019 3:44 PM [facility] Temperature 36.2 C (97.1 F) 06/21/2019 3:44 PM [facility]UM[facility]IER Respiratory Rate 18 06/21/2019 3:44 PM [facility]UM[facility] TALLIER Oxygen Saturation 99% 06/21/2019 3:44 PM [facility]UM[facility] TALLIER Inhaled Oxygen Concentration - - Weight 80.3 kg (177 lb) 06/21/2019 4:57 PM [facility]IER Height 152.4 cm (5') 06/21/2019 4:57 PM [facility]UM[facility] TALLIER Body Mass Index 34.57 06/21/2019 4:57 PM [facility]UM[facility] TALLIER Plan of Treatment Health Maintenance Due Date Last Done Comments CERVICAL CANCER SCREENING 09/17/2015 INFLUENZA VACCINE 01/27/2020 Procedures Procedure Name Priority Date/Time Associated Comments Diagnosis US PELVIC TRANSVAGINAL STAT 06/21/2019 4:58 R esults for this PM [facility] procedure are i n the results section. US PELVIC STAT 06/21/2019 4:58 Results for this TRANSABDOMINAL PM [facility] procedure are in the results section. ESTIMATED GFR STAT 06/21/2019 4:07 Results fo r this PM [facility] procedure are i n the results section. COMPREHENSIVE METABOLIC STAT 06/21/2019 4:07 Results for this PANEL PM [facility] procedure are i n the results section. HC COMPLETE BLD COUNT STAT 06/21/2019 4:07 Re sults for this W/AUTO DIFF PM [facility] procedure are i n the results section. GRAM STAIN STAT 06/21/2019 3:59 Results for this PM [facility] procedure are i n the results section. URINE CULTURE STAT 06/21/2019 3:59 Results fo r this PM [facility] procedure are i n the results section. HCG QUALITATIVE, URINE STAT 06/21/2019 3:53 R esults for this SCREEN PM [facility] procedure are i n the results section. URINALYSIS STAT 06/21/2019 3:53 Results for this PM [facility] procedure are i n the results section. after 01/03/2019 Results US Pelvic Transabdominal (06/21/2019 4:58 PM [facility]UMBER TALLIER) Specimen Narrative Performed At EXAMINATIONS: [facility] US [...] was demonstrated within the pel ayanna cul-de-sac. [id number] Procedure Note Interface, Radiology Results Incoming - 06/21/2019 5:05 PM [facility]ALLIER EXAMINATIONS: US PELVIC TRANSABDOMINAL US PELVIC TRANSVAGINAL [...] was demonstrated within the pel ayanna cul-de-sac. [id number] Performing Organization Address City/State/Zipcode Phone Number [facility] [address] [place] [address] US Pelvic Transvaginal (06/21/2019 4:58 PM LUMBER TALLIER) Specimen Narrative Performed At EXAMINATIONS: [facility] US PELVIC TRANSABDOMINAL US PELVIC TRANSVAGINAL [...] was demonstrated within the pel ayanna cul-de-sac. [facility]-[id number] Procedure Note Interface, Radiology Results Incoming - 06/21/2019 5:05 PM LUMBER TALLIER EXAMINATIONS: US PELVIC TRANSABDOMINAL US PELVIC TRANSVAGINAL [...] was demonstrated within the pel ayanna cul-de-sac. [facility]-[id number] Performing Organization Address City/State/Zipcode Phone Number [facility] [address] [place] [address] Estimated GFR (06/21/2019 4:07 PM LUMBER TALLIER) Estimated GFR >=90 mL/min/1.73 [facility] Comment: m2 [facility] Interpretation [facility] G1 [...] 2014. Specimen Plasma specimen Performing Organization Address City/[facility]/Zipcode Phone Number DEPARTMENT OF PATHOLOGY AND [address] [place] [phone] [facility], [facility] [address] [place] [address] [facility] CBC with platelet and differential (06/21/2019 4:07 PM LUMBER TALLIER) Pathologist Sig nature WBC 9.58 4.50 - 11.00 k/uL [facility] EMERGENCY [facility] RBC 4.75 4.20 - 5.50 m/uL [facility] HGB 14.3 12.0 - 16.0 g/dL [facility] EMERGENCY [facility] HCT 42.2 37.0 - 47.0 % [facility] MCV 88.8 82.0 - 100.0 fL [facility] MCH 30.1 27.0 - 34.0 pg [facility] MCHC 33.9 31.0 - 37.0 g/dL [facility] RDW - SD 44.0 37.0 - 55.0 fL [facility] MPV 9.4 8.8 - 13.2 fL [facility] Platelet count 463 (H) 150 - 400 k/uL [facility] Neutrophils 57.1 39.0 - 69.0 % [facility] Lymphocytes 33.4 25.0 - 45.0 % [facility] Monocytes 8.5 0.0 - 10.0 % [facility] Eosinophils 0.6 0.0 - 5.0 % [facility] Basophils 0.4 0.0 - 1.0 % [facility] Specimen Blood Performing Organization Address City/State/Zipcode Phone Number DEPARTMENT OF PATHOLOGY AND [id number] [place] [address] [phone] [facility] MEDICINE, [facility] [address] [place] [address] [facility] Comprehensive metabolic panel (06/21/2019 4:07 PM LUMBER TALLIER) Pathologist Sig nature Sodium 138 128 - 145 mEq/L [facility] Potassium 4.2 3.6 - 5.1 mEq/L [facility] CO2 25 18 - 33 mEq/L [facility] Chloride 106 98 - 108 mEq/L [facility] Glucose 96 73 - 118 mg/dL [facility] Calcium 9.1 8.0 - 10.3 mg/dL [facility] BUN 10 7 - 22 mg/dL [facility] Creatinine 0.7 0.5 - 0.9 mg/dL [facility] Alkaline phosphatase 63 42 - 141 U/L [facility] ALT 24 10 - 47 U/L [facility] AST 16 11 - 38 U/L [facility] Total bilirubin 0.6 0.2 - 1.6 mg/dL [facility] Albumin 4.6 3.3 - 5.5 g/dL [facility] Protein 7.7 6.4 - 8.1 g/dL [facility] Anion gap 7@ANIO 7 - 15 mEq/L [facility] A/G ratio 1.5 0.7 - 3.8 [facility] Specimen Plasma specimen Performing Organization Address City/[facility] Phone Number DEPARTMENT OF PATHOLOGY AND [address] [place], [place] [address] [facility] [address] [place] [address] EMERGENCY CARE CENTER Gram stain (06/21/2019 3:59 PM LUM[facility] TALLIER) Gram stain result No WBC's or organisms seen. DAVID GORDON Comment: HOSPITAL Specimen Information Specimen Source: Urine Specimen Site: Urine, clean catch Specimen Urine - Urine, clean catch Performing Organization Address City/[facility] Phone Number [facility] DEPARTMENT OF PATHOLOGY AND [address] [place] [address] [phone] [address] Urine culture (06/21/2019 3:59 PM LUMBER TALLIER) Urine culture Mixed buddy 10-5 col/cc [facility] isolate Comment: HOSPITAL Specimen Information Specimen Source: Urine Specimen Site: Urine, clean catch Specimen Urine - Urine, clean catch Performing Organization Address [facility] Phone Number [facility] DEPARTMENT OF PATHOLOGY AND [address] [place] [address] [phone] [address] Urinalysis (06/21/2019 3:53 PM LUM[facility] TALLIER) Glucose, UA Negative Negative [facility] Bilirubin, UA Footnote Negative [facility] Comment: YAZIDI Unable to report due to interference from color of uri de. [facility] Corrected result; previously reported as [email or web address] [email or web address] on 06/21/2019 at 16:13 EMERGENCY CARE by [facility] Ketones, UA Negative Negative [facility] Specific gravity, 1.015 1.001 - 1.035 [facility] Blood, UA Large (A) Negative [facility] pH, UA 8.5 5.0 - 8.5 [facility] Protein, UA 3+ (A) Negative [facility] Urobilinogen, UA <2.0 <2.0 [facility] Nitrite, UA Negative Negative [facility] Leukocyte Footnote Negative [place] esterase, UA Comment: YAZIDI Unable to report due to interference from color of uri de. PIERCE Corrected result; previously reported as Trace o n 06/21/2019 at 16:13 by [place] [facility] Color, UA Red [facility] Appearance, UA Clear [facility] Specimen Urine Performing Organization Address City/State/Zipcode Phone Number DEPARTMENT OF PATHOLOGY AND [id number] [place] [phone] [place] [address] EMERGENCY [facility] hCG qualitative, urine screen (06/21/2019 3:53 PM LUMBER TALLIER) hCG qualitative, Negative [facility] urine Comment: [place] Sensitivity of HCG test: 25 mIU/mL [facility] Negative test results in patients suspected CENTER to be should be retested with a sample obtained 48-72 hours later, or by performing a quantitative assay. Specimen Urine Performing Organization Address City/[facility] Phone Number DEPARTMENT OF PATHOLOGY AND [address] [place] [phone] [place] [address] EMERGENCY CARE CENTER after 01/03/2019 Insurance Payer Benefit Plan / Subscriber ID Effective Dates Phone Addre ss Type Group MEDICAID MEDICAID xxxxxxxxx 2016-Present Med VideoNot[employer]es [facility] xxxxxxxxx 2016-Presen HMO CHOICE CH[facility]/STAR JOBY t CIGNA CIGNA OPEN xxxxxxxxxxx 2016-Present HMO ACCESS/NETWORK BCBS BCBS CHOICE xxxxxxxxx 2019-Prese P PO PPO/FEDERAL nt EMPL PPO BCBS BCBS CHOICE xxxxxxxxxxxx 2019-Presen PPO PPO/FEDERAL t EMPL PPO Advance Directives For more information, please contact: [phone] Type Date Recorded Patient Skiver Box Toe Explanati on Advance Directives, Living Will and Medical Power of Tapper Helper
--- OUTSIDE RECORDS SUMMARY | 2020-01-04 08:06 | XMS REPORT | Continuity of Care Document ---
:1995 Author Organization [facility] t Address [address] [place] [address] Care Team Providers Name Role Phone Asked, Pcp Primary Care Physician Unavailable Casey Merchant MD Attending Clinician Payers Payer Name Policy Type Policy Number Effective Date Expiration Date Geovani yeager MEDICAIDMEDICAID xxxxxxxxx 2016 [place] xxxxxxxxx 00:00:00 Abhishek tee 6-PresentMedicai d FORMERLY [facility] xxxxxxxxx 2016 [place] [facility] CHC/STAR HUCkyqcrfljo2016-PresentHMO CIGNACIGNA OPEN xxxxxxxxxxx 2016 [place] ACCESS/NETWORKxx 00:00:00 Abhishek tee -PresentHMO BCBSBCBS CHOICE xxxxxxxxx 2019 [place] PPO/FEDERAL EMPL 00:00:00 Methodcipriano t [id number] 10/2018-PresentPP O Problems This patient has no known problems. Allergies, Adverse Reactions, Alerts Allergy Allergy Status Severity Reaction(s) Onset Inactive Treating Comm ents Source Name Type Date Date Clinician Nemesioorphcortez Propensi Active Palpitations 2018-06 [place] nol ty to 2-25 Method[facility] Tartrate adverse 00:00: st reaction 00 s to drug morphine DA Active [facility] [place] codeine DA Active [facility] [place] tramadol DA Active NE 2017-06 [facility] 2[facility] [place] Tramadol Propensi Active Other (See headache [place] ty to Comments) 03-11 [facility] adverse 00:00: st reaction 00 s to drug Acetamin Propensi Active Shortness Of [place] ophen-Co ty to Breath 03-11 [facility] deine adverse 00:00: st reaction 00 s to drug No Known DA Active U [facility] Allergie 3-14 [facility] [place] Family History Family Member Diagnosis Comments Start Date Stop Date Source Natural mother Diabetes [facility] Natural mother Menstrual problems [place] [facility] Social History Social Habit Start Date Stop Date Quantity Comments Source Sex Assigned At [facility] ethodist Alcohol intake 2019-06-21 2019-06-21 Current drinker [place] [facility] 00:00:00 00:00:00 of alcohol (finding) Alcohol Comment 2016-04-28 2016-04-28 social, weekly [place] [facility] 00:00:00 00:00:00 Smoking Status Start Date Stop Date Source Never smoker [facility] Medications Ordered Filled Start Stop Current [...] blood 2019-06-21 15:44:00 123 mm[Hg] [place] [facility] pressure Diastolic blood 2019-06-21 15:44:00 81 mm[Hg] [place] [facility] pressure Heart rate 2019-06-21 15:44:00 119 /min Ravi Delong Body temperature 2019-06-21 15:44:00 36.17 [place] [facility] Respiratory rate 2019-06-21 15:44:00 18 /min [place] [facility] Oxygen saturation in 2019-06-21 15:44:00 99 [...] Future Scheduled 2020-01-27 INFLUENZA VACCINE [place] [facility] Test 00:00:00 [code = INFLUENZA VACCINE] Future Scheduled 2015-09-17 Screening for [facility] Test 00:00:00 malignant neoplasm of cervix (procedure) [code = 371404162] Encounters Start End Encounter Admission Attending Care Care Encounter Source Date/Time Date/Time Type Type Clinicians Facility Department ID 2019-06-21 2019-06-21 Emergency KELSI [facility] [id number] [place] 00:00:00 00:00:00 LISETH Muhammad Method i st Results Test Description Test Time Test Comments Results Result Comments Source Urine culture 2019-06-23 10:07:15 Test Item Value Reference Range Interpretation Comme nts Urine culture isolate Mixed buddy 10-5 Sp ecimen InformationSpecimen (test code = 58418-0) col/cc Source : UrineSpecimen Site: Urine, clean catch [place] MethodistGram [id number] 10:07:15 Test Item Value Reference Range Interpretation Comments Gram stain No WBC's or Specimen result (test organisms seen. InformationS pecimen code = 664-3) Source: UrineS pecimen Site: Urine, cl paramjit catch [place] [id number] 17:15:49 Test Item Value Reference Range Interpretation Comments Glucose, UA (test code = Negative Negative 57076-4) Bilirubin, UA (test code Footnote Negative Cora ble to report due = 5770-3) to interference from color of urine.Corrected result; previou sly reported as Positive@UBIL o n 06/21/2019 at 1 6:13 by MS Ketones, UA (test code = Negative Negative 2514-8) Specific gravity, UA 1.015 1.001-1.035 (test code = 5811-5) Blood, UA (test code = Large Negative A 5794-3) pH, UA (test code = 8.5 5.0-8.5 5803-2) Protein, UA (test code = 3+ Negative A 01009-3) Urobilinogen, UA (test <2.0 <2.0 code = 27399-8) Nitrite, UA (test code = Negative Negative 5802-4) Leukocyte esterase, UA Footnote Negative Unabl e to report due (test code = 5799-2) to inte rference from color of urine.Corrected result; previou sly reported as Tra ce on 06/21/2019 at 1 6:13 by [place] Color, UA (test code = Red 5778-6) Appearance, UA (test Clear code = 5767-9) Lab Interpretation (test Abnormal code = 64806-1) [place] MethodistCom[facility] metabolic [id number] 17:09:01 Test Item Value Reference Range Interpretation Comments Sodium (test code = 2951-2) 138 128- 145 mEq/L Potassium (test code = 2823-3) 4.2 3.6- 5.1 mEq/L CO2 (test code = 2027-9) 25 18- 33 mEq/L Chloride (test code = 2075-0) 106 98- 108 mEq/L Glucose (test code = 2345-7) 96 mg/dL 73-118 Calcium (test code = 35225-7) 9.1 mg/dL 8-10.3 BUN (test code = [...] g/dL 6.4-8.1 Anion gap (test code = 78395-4) 7@ANIO 7- 15 mEq/L A/G ratio (test code = 1759-0) 1.5 0.7-3.8 [facility] MethodistEstimated [id number] 17:09:01 Test Item Value Reference Range Interpretation Comments Estimated GFR (test >=90 mL/min/1.73 m2 [facility] code = 5488) InterpretationG 1 >=90 Normal or highG2 60-89 Mildly owggmjlhyU7i 45-59 Mildly to mode rately acagaqaliO3n 30-44 Moderately to severely decreasedG4 15-29 Severely decre asedG5 <15 Kidn ey failureThe eGFR was calculated usin g the Chronic Kidney Disease Epidemiology Co llaboration (CKD-EPI) equat ion. Interpretation is based on recommendations of the National Kidney Foundation-Kidn ey Disease Outcomes Qualit y Initiative (NKF-KDOQI) pub lished in 2014. [facility] MethodistUS Pelvic [id number] 17:02:27 Interface, Radiology Results 06/21/2019 5:05 PM [...] fluid was demonstrated within the pelvic cul-de-sac. [facility]-[id number] [facility] Pelvic [id number] 17:02:27 Interface, Radiology Results - 06/21/2019 5:05 [...] fluid was demonstrated within the pelvic cul-de-sac. [facility]-[id number] [facility] with platelet and [id number] 16:58:15 Test Item Value Reference Range Interpretation Comments WBC (test code = 69042-9) 9.58 4.50- 11.00 k/uL RBC (test code = 96689-7) 4.75 m/uL 4.2-5.5 HGB (test code = 718-7) 14.3 g/dL 12-16 HCT (test code = 4544-3) 42.2 % 37-47 MCV (test code = 787-2) 88.8 fL 82-100 MCH (test code = 785-6) 30.1 pg 27-34 MCHC (test code = 786-4) 33.9 g/dL 31-37 RDW - SD (test code = 48292-5) 44.0 fL 37-55 MPV (test code = 04184-9) 9.4 fL 8.8-13.2 Platelet count (test code = 463 150- 400 k/uL H 52595-5) Neutrophils (test code = 63196-2) 57.1 % 39-69 Lymphocytes (test code = 75956-4) 33.4 % 25-45 Monocytes (test code = 89895-6) 8.5 % 0-10 Eosinophils (test code = 55795-8) 0.6 % 0-5 Basophils (test code = 27791-8) 0.4 % 0-1 Lab Interpretation (test code = Abnormal 33938-8) [facility] qualitative, urine [id number] 16:13:05 Test Item Value Reference Range Interpretation Comments hCG qualitative, Negative Sensitivity of HCG test: urine (test code = 25 mIU/mL Negative test 6-3) results in linette ents suspected to be should be retes jd with a sample obtained 48-72 hours later, or by performing a qu antitative assay. Ravi [facility] W/AUTO [id number] 07:27:00 Test Item Value Reference Range Interpretation [...] NORMAL code = PLTMR) AG HEPATITIS B [id number] 04:15:00 Test Item Value Reference Range Interpretation Comments AG HEPATITIS B SURFACE (test code NONREACTIVE NONREACTIVE = HBSAG) AB HEPATITIS C [id number] 04:15:00 Test Item Value Reference Range Interpretation Comments AB HEPATITIS C (test code = NONREACTIVE NONREACTIVE HCVAB) SIGNAL TO CUTOFF (test code = 0.13 <0.80 N CUTOFF) RUBELLA [id number] 04:15:00 Test Item Value Reference Range Interpretation Comments RUBELLA SCREEN 70.2 IUnit/ml Results >10. 0IUnits/ml (test code = are considered positive RUBSC) inaccordance wi th the CLSI guidelines and based on the [employer] S tandard for Anti-Rubell a serum as anindicator of immune status and a br eakpoint to detect mostseropositiv e persons. AB [id number] 04:15:00 Test Item Value Reference Range Interpretation Comments AB TREPONEMA (test code = TREPAB) NONREACTIVE NONREACTIVE AG HEPATITIS B [id number] 04:00:00 Test Item Value Reference Range Interpretation Comments AG HEPATITIS B SURFACE (test code NONREACTIVE NONREACTIVE = HBSAG) AB HEPATITIS C [id number] 04:00:00 Test Item Value Reference Range Interpretation Comments AB HEPATITIS C (test code = HCVAB) NONREACTIVE SIGNAL TO CUTOFF (test code = CUTOFF) <0.80 RUBELLA [id number] 04:00:00 Test Item Value Reference Range Interpretation Comments RUBELLA SCREEN 70.2 IUnit/ml Results >10. 0IUnits/ml (test code = are considered positive RUBSC) inaccordance wi th the CLSI guidelines and based on the [employer] S tandard for Anti-Rubell a serum as anindicator of immune status and a br eakpoint to detect mostseropositiv e persons. AB [id number] 04:00:00 Test Item Value Reference Range Interpretation Comments AB TREPONEMA (test code = TREPAB) NONREACTIVE NONREACTIVE CBC W/AUTO [id number] 00:36:00 Test Item Value Reference Range Interpretation [...]
--- NOTE | 2020-01-04 08:48 | EDPHYS ---
Physician Documentation [facility] Name: Carla Duncan Age: 24 yrs Sex: Female : 1995 Arrival Date: 01/04/2020 Time: 08:09 Bed 16 Private MD: ED Physician Jose Laws HPI: 01/03 08:45 This 24 yrs old Female presents to ER via Ambulatory with complaints of COVID kb Positive, Cough, Asthma Exacerbation. 08:45 The patient or guardian reports cough, that is intermittent, described as moderate, kb with no sputum. Onset: The symptoms/episode began/occurred 2 week(s) ago. Severity of symptoms: At their worst the symptoms were moderate, in the emergency department the symptoms are unchanged. Modifying factors: The symptoms are alleviated by nothing, the symptoms are aggravated by nothing. Associated signs and symptoms: Pertinent positives: chest pain, sore throat, Pertinent negatives: diarrhea, ear ache, fever, nausea, rhinorrhea, vomiting. The patient has experienced similar episodes in the past. The patient has been recently seen at the [facility] Emergency Department, this week, for similar complaints X-rays were performed. Pt reports cough for 2 weeks. States she was diagnosed with COVID on 12/12/19. States she is coughing so much that it is causing her chest, back and throat to hurt, also it is keeping her from sleep. Pt was seen by me on 12/31/19 for same complaint, CXR done and was normal. . 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 - Social history:: Smoking status: unknown. ROS: 08:42 Constitutional: Negative for fever, chills, and weight loss, Neck: Negative for injury, kb pain, and swelling, Cardiovascular: Negative for chest pain, palpitations, and edema, Abdomen/GI: Negative for abdominal pain, nausea, vomiting, diarrhea, and constipation, Back: Negative for injury and pain, MS/Extremity: Negative for injury and deformity, Skin: Negative for injury, rash, and discoloration, Neuro: Negative for headache, weakness, numbness, tingling, and seizure. 08:42 ENT: Positive for ear pain, sore throat. 08:42 Respiratory: Positive for cough, Negative for dyspnea on exertion, hemoptysis, orthopnea, pleurisy, shortness of breath, sputum production, wheezing. Exam: 08:42 Constitutional: This is a well developed, well nourished patient who is awake, alert, kb and in no acute distress. Head/Face: Normocephalic, atraumatic. Chest/axilla: Normal chest wall appearance and motion. Nontender with no deformity. No lesions are appreciated. Cardiovascular: Regular rate and rhythm with a normal S1 and S2. No gallops, murmurs, or rubs. Normal PMI, no JVD. No pulse deficits. Respiratory: Lungs have equal breath sounds bilaterally, clear to auscultation and percussion. No rales, rhonchi or wheezes noted. No increased work of breathing, no retractions or nasal flaring. Abdomen/GI: Soft, non-tender, with normal bowel sounds. No distension or tympany. No guarding or rebound. No evidence of tenderness throughout. Skin: Warm, dry with normal turgor. Normal color with no rashes, no lesions, and no evidence of cellulitis. MS/ Extremity: Pulses equal, no cyanosis. Neurovascular intact. Full, normal range of motion. Neuro: Awake and alert, GCS 15, oriented to person, place, time, and situation. Cranial nerves II-XII grossly intact. Motor strength 5/5 in all extremities. Sensory grossly intact. Cerebellar exam normal. Normal gait. 08:42 ENT: External ear(s): are unremarkable, Ear canal(s): are normal, TM's: fluid levels, on the left, Nose: is normal, Mouth: is normal, Posterior pharynx: is normal. Vital Signs: 08:34 BP 141 / 90; Pulse 109; Resp 20; Pulse Ox 100% on R/A; Weight 85.28 kg; Height 5 ft. 0 em in. (152.40 cm); 09:10 Temp 98.6(O); em 08:34 Body Mass Index 36.72 (85.28 kg, 152.40 cm) em MDM: 08:27 Patient medically screened. kb 08:36 Data reviewed: vital signs, nurses notes. Data interpreted: Pulse oximetry: on room air kb is 100 %. Interpretation: normal. 08:42 Counseling: I had a detailed discussion with the patient and/or guardian regarding: the kb historical points, exam findings, and any diagnostic results supporting the discharge/admit diagnosis, the need for outpatient follow up, a family practitioner, to return to the emergency department if symptoms worsen or persist or if there are any questions or concerns that arise at home. Administered Medications: 08:47 Drug: TORadol 30 mg Route: IM; Site: left gluteus; ss 09:21 Follow up: Response: No adverse reaction; Marked relief of symptoms; Pain is decreased em 08:47 Drug: Tessalon Perle 100 mg Route: PO; ss 09:21 Follow up: Response: No adverse reaction; Marked relief of symptoms em Disposition: 17:28 Co-signature as Attending Physician, Jose Laws MD I agree with the assessment and kdr plan of care. Disposition: 01/04/20 08:48 Discharged to Home. Impression: Cough, Asthma. - Condition is Stable. - Discharge Instructions: Asthma, Adult, Vokl-yo-Efqn, Cough, Adult, Bwhm-ib-Xelb. - Prescriptions for Prednisone 20 mg Oral Tablet - take 1 tablet by ORAL route once daily for 5 days; 5 tablet. Bromfed DM 2- 30-10 mg/5 mL Oral syrup - take 10 milliliter by ORAL route every 4 hours As needed; 100 milliliter. - Medication Reconciliation Form, Thank You Letter, Antibiotic Education, Prescription Opioid Use form. - Follow up: Emergency Department; When: As needed; Reason: Worsening of condition. Follow up: Private Physician; When: 2 - 3 days; Reason: Recheck today's complaints, Continuance of care, Re-evaluation by your physician. - Notes: Continue use of albuterol inhaler as prescribed. Take an antihistamine with decongestant as directed (zyrtec d, claritin d, or jyoti d) Signatures: Francie Maynard, PROGRAM REP-C PROGRAM REP-Ckb Jose Laws MD MD kdr Munoz Liang, RN RN em Jenny Bautista RN RN ss Corrections: (The following items were deleted from the chart) 09:35 08:48 01/04/2020 08:48 Discharged to Home. Impression: Cough; Asthma. Condition is em Stable. Forms are Medication Reconciliation Form, Thank You Letter, Antibiotic Education, Prescription Opioid Use. Follow up: Emergency Department; When: As needed; Reason: Worsening of condition. Follow up: Private Physician; When: 2 - 3 days; Reason: Recheck today's complaints, Continuance of care, Re-evaluation by your physician. kb
--- NOTE | 2020-01-04 08:48 | ER ---
Nurse's Notes [facility] Name: Carla Duncan Age: 24 yrs Sex: Female : 1995 Arrival Date: 01/04/2020 Time: 08:09 Bed 16 Private MD: Diagnosis: Cough;Asthma Presentation: 01/03 08:14 Acuity: VENKATESH 3 dm5 08:34 Chief complaint: Patient states: + covid on 12/15/19, cough, chest pain, back pain. em Coronavirus screen: Prior COVID test collected on: 12/15/19 positive. Ebola Screen: Patient negative for fever greater than or equal to 101.5 degrees Fahrenheit, and additional compatible Ebola Virus Disease symptoms Patient denies exposure to infectious person. Patient denies travel to an Ebola-affected area in the 21 days before illness onset. No symptoms or risks identified at this time. Initial Sepsis Screen: Does the patient meet any 2 criteria? HR > 90 bpm. No. Patient's initial sepsis screen is negative. Does the patient have a suspected source of infection? No. Patient's initial sepsis screen is negative. Risk Assessment: Do you want to hurt yourself or someone else? Patient reports no desire to harm self or others. Onset of symptoms was December 15, 2019. 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 - Social history:: Smoking status: unknown. Screenin:49 Abuse screen: Denies threats or abuse. Nutritional screening: No deficits noted. em Tuberculosis screening: No symptoms or risk factors identified. Fall Risk None identified. Assessment: 08:45 General: Appears in no apparent distress. uncomfortable, Behavior is calm, cooperative, em appropriate for age, Denies fever. Pain: Complains of pain in back and chest. Neuro: Level of Consciousness is awake, alert, obeys commands, Oriented to person, place, time, situation, Appropriate for age. Cardiovascular: Capillary refill < 3 seconds Patient's skin is warm and dry. Respiratory: Reports cough that is dry, Airway is patent Respiratory effort is even, unlabored, Respiratory pattern is regular, symmetrical. Derm: Skin is intact, is healthy with good turgor, Skin is pink, warm \T\ dry. Musculoskeletal: Capillary refill < 3 seconds, Range of motion: intact in all extremities. Vital Signs: 08:34 BP 141 / 90; Pulse 109; Resp 20; Pulse Ox 100% on R/A; Weight 85.28 kg; Height 5 ft. 0 em in. (152.40 cm); 09:10 Temp 98.6(O); em 08:34 Body Mass Index 36.72 (85.28 kg, 152.40 cm) em ED Course: 08:09 Patient arrived in ED. mr 08:14 Triage completed. dm5 08:24 Liang Nunez, JUDI is Primary Nurse. em 08:27 Francie Maynard FNP-C [facility]. kb 08:27 Jose Laws MD is Attending Physician. kb 08:48 Arm band placed on. em 08:49 Patient has correct armband on for positive identification. Placed in gown. Bed in low em position. Call light in reach. Pulse ox on. NIBP on. 09:20 No provider procedures requiring assistance completed. Patient did not have IV access em during this emergency room visit. Administered Medications: 08:47 Drug: TORadol 30 mg Route: IM; Site: left gluteus; ss 09:21 Follow up: Response: No adverse reaction; Marked relief of symptoms; Pain is decreased em 08:47 Drug: Tessalon Perle 100 mg Route: PO; ss 09:21 Follow up: Response: No adverse reaction; Marked relief of symptoms em Outcome: 08:48 Discharge ordered by . kb 09:20 Discharged to home ambulatory. em 09:20 Condition: good 09:20 Discharge instructions given to patient, Instructed on discharge instructions, follow up and referral plans. medication usage, Demonstrated understanding of instructions, follow-up care, medications, Prescriptions given X 2. 09:35 Patient left the ED. em Signatures: Francie Maynard FNP-C FNP-Ckb Markwardt, Deana, RN RN dm5 Gandhi, Kathryn mr Nunez, Liang, RN RN em Jenny Bautista, RN RN ss
[2020-01-04] MEDS ORDERED: BENZONATATE 100 MG CAP PO ONE (08:49)
[2020-01-04] MEDS ORDERED: KETOROLAC 30 MG/ML INJ ONE (08:49)
[2020-01-04 09:42] VITALS: BP 141/90; O2SAT 100
[2020-01-04 09:43] VITALS: TEMP 98.6
== END 2020-01-04 09:35 | disposition home or self-care (01) ==
LOC: ER 07:56
DX: U07.1 COVID-19 (principal); R05 Cough; F41.8 Other specified anxiety disorders; J45.909 Unspecified asthma, uncomplicated; F31.9 Bipolar disorder, unspecified
CPT/HCPCS: 96372; 99283

== ENCOUNTER 2020-01-09 18:49 | Emergency (ER) | payer BC, OTHER ==
--- OUTSIDE RECORDS SUMMARY | 2020-01-09 18:52 | XMS REPORT | Clinical Summary ---
:1995 Author Organization [facility] Address [address] [place] [address] Care Team Providers Name Role Phone Asked, [...] ion; Lower abdominal pain; Vagina bleeding after 01/08/2019 Family History Medical History Relation Name Comments [...] Comments Blood Pressure 123/81 06/21/2019 3:44 PM UNIVERSAL GRINDER SET UP OPERATOR Pulse 119 06/21/2019 3:44 PM UNIVERSAL GRINDER SET UP OPERATOR Temperature 36.2 C (97.1 F) 06/21/2019 3:44 PM UNIVERSAL GRINDER SET UP OPERATOR Respiratory Rate 18 06/21/2019 3:44 PM UNIVERSAL GRINDER SET UP OPERATOR Oxygen Saturation 99% 06/21/2019 3:44 PM UNIVERSAL GRINDER SET UP OPERATOR Inhaled Oxygen Concentration - - Weight 80.3 kg (177 lb) 06/21/2019 4:57 PM UNIVERSAL GRINDER SET UP OPERATOR Height 152.4 cm (5') 06/21/2019 4:57 PM UNIVERSAL GRINDER SET UP OPERATOR Body Mass Index 34.57 06/21/2019 4:57 PM UNIVERSAL GRINDER SET UP OPERATOR Plan of Treatment Health Maintenance Due Date Last Done Comments CERVICAL CANCER SCREENING 09/17/2015 INFLUENZA VACCINE 01/27/2020 Procedures Procedure Name Priority Date/Time Associated Comments Diagnosis US PELVIC TRANSVAGINAL STAT 06/21/2019 4:58 R esults for this PM UNIVERSAL GRINDER SET UP OPERATOR procedure are i n the results section. US PELVIC STAT 06/21/2019 4:58 Results for this TRANSABDOMINAL PM UNIVERSAL GRINDER SET UP OPERATOR procedure are in the results section. ESTIMATED GFR STAT 06/21/2019 4:07 Results fo r this PM UNIVERSAL GRINDER SET UP OPERATOR procedure are i n the results section. COMPREHENSIVE METABOLIC STAT 06/21/2019 4:07 Results for this PANEL PM UNIVERSAL GRINDER SET UP OPERATOR procedure are i n the results section. HC COMPLETE BLD COUNT STAT 06/21/2019 4:07 Re sults for this W/AUTO DIFF PM UNIVERSAL GRINDER SET UP OPERATOR procedure are i n the results section. GRAM STAIN STAT 06/21/2019 3:59 Results for this PM UNIVERSAL GRINDER SET UP OPERATOR procedure are i n the results section. URINE CULTURE STAT 06/21/2019 3:59 Results fo r this PM UNIVERSAL GRINDER SET UP OPERATOR procedure are i n the results section. HCG QUALITATIVE, URINE STAT 06/21/2019 3:53 R esults for this SCREEN PM UNIVERSAL GRINDER SET UP OPERATOR procedure are i n the results section. URINALYSIS STAT 06/21/2019 3:53 Results for this PM UNIVERSAL GRINDER SET UP OPERATOR procedure are i n the results section. after 01/08/2019 Results US Pelvic Transabdominal (06/21/2019 4:58 PM UNIVERSAL GRINDER SET UP OPERATOR) Specimen Narrative Performed At EXAMINATIONS: [facility] [...] was demonstrated within the pel ayanna cul-de-sac. [facility]-[id number] Procedure Note Interface, Radiology Results Incoming - 06/21/2019 5:05 PM UNIVERSAL GRINDER SET UP OPERATOR EXAMINATIONS: US PELVIC TRANSABDOMINAL US PELVIC [...] was demonstrated within the pel ayanna cul-de-sac. [facility]-[id number] Performing Organization Address City/State/Zipcode Phone Number [facility] [address] [place] [address] US Pelvic Transvaginal (06/21/2019 4:58 PM UNIVERSAL GRINDER SET UP OPERATOR) Specimen Narrative Performed At EXAMINATIONS: [facility] US PELVIC TRANSABDOMINAL US PELVIC TRANSVAGINAL [...] was demonstrated within the pel ayanna cul-de-sac. [facility]-[id number] Procedure Note Interface, Radiology Results Incoming - 06/21/2019 5:05 PM UNIVERSAL GRINDER SET UP OPERATOR EXAMINATIONS: US PELVIC TRANSABDOMINAL US PELVIC [...] was demonstrated within the pel ayanna cul-de-sac. [facility]-[id number] Performing Organization Address City/State/Zipcode Phone Number [facility] [address] [place] [address] Estimated GFR (06/21/2019 4:07 PM UNIVERSAL GRINDER SET UP OPERATOR) Estimated GFR >=90 mL/min/1.73 [facility] Comment: m2 [facility] Units Interpretation [facility] G1 [...] 2014. Specimen Plasma specimen Performing Organization Address City/[facility]/Zipcode Phone Number DEPARTMENT OF PATHOLOGY AND [address] [place] [phone] [facility], [facility] [address] [place] [address] EM[facility]Y [facility]ARE CENTER CBC with platelet and differential (06/21/2019 4:07 PM UNIVERSAL GRINDER SET UP OPERATOR) Pathologist Sig nature WBC 9.58 4.50 - 11.00 k/uL [facility] EMERGENCY [facility] RBC 4.75 4.20 - 5.50 m/uL [facility] HGB 14.3 12.0 - 16.0 g/dL [facility] EMERGENCY [facility] HCT 42.2 37.0 - 47.0 % [facility] MCV 88.8 82.0 - 100.0 fL [facility] MCH 30.1 27.0 - 34.0 pg [facility] MCHC 33.9 31.0 - 37.0 g/dL [facility] RDW - SD 44.0 37.0 - 55.0 fL [facility] MPV 9.4 8.8 - 13.2 fL [facility] Platelet count 463 (H) 150 - 400 k/uL [facility] Neutrophils 57.1 39.0 - 69.0 % [facility] Lymphocytes 33.4 25.0 - 45.0 % [facility] Monocytes 8.5 0.0 - 10.0 % [facility] Eosinophils 0.6 0.0 - 5.0 % [facility] Basophils 0.4 0.0 - 1.0 % [facility] Specimen Blood Performing Organization Address City/State/Zipcode Phone Number DEPARTMENT OF PATHOLOGY AND [id number] [place] [address] 7 [address] [facility]IC[facility], [facility] [address] [place] [address] EMERGENCY [facility] Comprehensive metabolic panel (06/21/2019 4:07 PM UNIVERSAL GRINDER SET UP OPERATOR) Pathologist Sig nature Sodium 138 128 - 145 mEq/L [facility] Potassium 4.2 3.6 - 5.1 mEq/L [facility] CO2 25 18 - 33 mEq/L [facility] Chloride 106 98 - 108 mEq/L [facility] Glucose 96 73 - 118 mg/dL [facility] Calcium 9.1 8.0 - 10.3 mg/dL [facility] BUN 10 7 - 22 mg/dL [facility] Creatinine 0.7 0.5 - 0.9 mg/dL [facility] Alkaline phosphatase 63 42 - 141 U/L [facility] ALT 24 10 - 47 U/L [facility] AST 16 11 - 38 U/L [facility] Total bilirubin 0.6 0.2 - 1.6 mg/dL [facility] Albumin 4.6 3.3 - 5.5 g/dL [facility] Protein 7.7 6.4 - 8.1 g/dL [facility] Anion gap 7@ANIO 7 - 15 mEq/L [facility] A/G ratio 1.5 0.7 - 3.8 [facility] Specimen Plasma specimen Performing Organization Address City/[facility] Phone Number DEPARTMENT OF PATHOLOGY AND [address] [place], [place] [address] [facility] [address] [place] [address] EMERGENCY CARE CENTER Gram stain (06/21/2019 3:59 PM UNIVERSAL GRINDER SET UP OPERATOR) Gram stain result No WBC's or organisms seen. DAVID GORDON Comment: HOSPITAL Specimen Information Specimen Source: Urine Specimen Site: Urine, clean catch Specimen Urine - Urine, clean catch Performing Organization Address City/[facility] Phone Number [facility] DEPARTMENT OF PATHOLOGY AND [address] [place] [address] [phone] [address] Urine culture (06/21/2019 3:59 PM UNIVERSAL GRINDER SET UP OPERATOR) Urine culture Mixed buddy 10-5 col/cc [facility] T isolate Comment: HOSPITAL Specimen Information Specimen Source: Urine Specimen Site: Urine, clean catch Specimen Urine - Urine, clean catch Performing Organization Address [facility] Phone Number [facility] DEPARTMENT OF PATHOLOGY AND [address] [place] [address] [phone] [address] Urinalysis (06/21/2019 3:53 PM UNIVERSAL GRINDER SET UP OPERATOR) Glucose, UA Negative Negative [facility] Bilirubin, UA Footnote Negative [facility] Comment: PROTESTANT Unable to report due to interference from color of uri mt. [facility] Corrected result; previously reported as [email or web address] [email or web address] on 06/21/2019 at 16:13 EMERGENCY CARE by [facility] Ketones, UA Negative Negative [facility] Specific gravity, 1.015 1.001 - 1.035 [facility] Blood, UA Large (A) Negative [facility] pH, UA 8.5 5.0 - 8.5 [facility] Protein, UA 3+ (A) Negative [facility] Urobilinogen, UA <2.0 <2.0 [facility] Nitrite, UA Negative Negative [facility] Leukocyte Footnote Negative [facility] esterase, UA Comment: PROTESTANT Unable to report due to interference from color of uri mt. [facility] Corrected result; previously reported as Trace o n 06/21/2019 at 16:13 by [place] [facility] Color, UA Red [facility] Appearance, UA Clear [facility] Specimen Urine Performing Organization Address City/State/Zipcode Phone Number DEPARTMENT OF PATHOLOGY AND [id number] [place] [address] [place] [address] EMERGENCY [facility] hCG qualitative, urine screen (06/21/2019 3:53 PM UNIVERSAL GRINDER SET UP OPERATOR) hCG qualitative, Negative [facility] urine Comment: ATHENS Sensitivity of HCG test: 25 mIU/mL [facility] Negative test results in patients suspected CENTER to be should be retested with a sample obtained 48-72 hours later, or by performing a quantitative assay. Specimen Urine Performing Organization Address City/[facility] Phone Number DEPARTMENT OF PATHOLOGY AND [address] [place] [address] [place] [address] EMERGENCY CARE CENTER after 01/08/2019 Insurance Payer Benefit Plan / Subscriber ID Effective Dates Phone Addre ss Type Group MEDICAID MEDICAID xxxxxxxxx 2016-Present Med [employer] [facility] xxxxxxxxx 2016-Presen HMO CHOICE CHC/STAR JOBY t CIGNA CIGNA OPEN xxxxxxxxxxx 2016-Present HMO ACCESS/NETWORK BCBS BCBS CHOICE xxxxxxxxx 2019-Prese P PO PPO/FEDERAL nt EMPL PPO BCBS BCBS CHOICE xxxxxxxxxxxx 2019-Presen PPO PPO/FEDERAL t EMPL PPO Advance Directives For more information, please contact: [phone] Type Date Recorded 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
--- OUTSIDE RECORDS SUMMARY | 2020-01-09 18:53 | XMS REPORT | Continuity of Care Document ---
:1995 Author Organization [facility] t Address [address] [place] [address] Care Team Providers Name Role Phone Asked, Pcp Primary Care Physician Unavailable Casey Merchant MD Attending Clinician Payers Payer Name Policy Type Policy Number Effective Date Expiration Date Geovani yeager MEDICAIDMEDICAID xxxxxxxxx 2016 [place] xxxxxxxxx 00:00:00 Abhishek tee 6-PresentMedicai d [facility] xxxxxxxxx 2016 [place] [facility] 00:00:00 [facility] CHC/STAR [id number]-PresentHMO CIGNACIGNA OPEN xxxxxxxxxxx 2016 [place] ACCESS/NETWORKxx 00:00:00 Abhishek tee -PresentHMO BCBSBCBS CHOICE xxxxxxxxx 2019 [place] PPO/FEDERAL EMPL 00:00:00 Methodcipriano t [id number] 10/2018-PresentPP O Problems This patient has no known problems. Allergies, Adverse Reactions, Alerts Allergy Allergy Status Severity Reaction(s) Onset Inactive Treating Comm ents Source Name Type Date Date Clinician Nemesioorphcortez Propensi Active Palpitations 2018-06 [place] nol ty to 2-25 Method[facility] Tartrate adverse 00:00: st reaction 00 s to drug morphine DA Active [facility] [place] codeine DA Active [facility] [place] tramadol DA Active AR 2017-06 [facility] [place] Tramadol Propensi Active Other (See headache [place] ty to Comments) 03-11 Method[facility] adverse 00:00: st reaction 00 s to drug Acetamin Propensi Active Shortness Of [place] ophen-Co ty to Breath 03-11 [facility] deine adverse 00:00: st reaction 00 s to drug No Known DA Active U [facility] Allergie 3-14 [facility] [place] Family History Family Member Diagnosis Comments Start Date Stop Date Source Natural mother Diabetes [facility] Natural mother Menstrual problems [place] [facility] Social History Social Habit Start Date Stop Date Quantity Comments Source Sex Assigned At [facility] ethodist Alcohol intake 2019-06-21 2019-06-21 Current drinker [place] [facility] 00:00:00 00:00:00 of alcohol (finding) Alcohol Comment 2016-04-28 2016-04-28 social, weekly [place] [facility] 00:00:00 00:00:00 Smoking Status Start Date Stop Date Source Never smoker [facility] Medications Ordered Filled Start Stop Current Ordering [...] 2 [place] en-caff-pyr 2-25 tablets by Nm thodi ilamine 17:05: mouth. st 500-60-15 17 [...] Body weight 2019-06-21 16:57:00 80.287 kg Ravi Dleong BMI 2019-06-21 16:57:00 34.57 kg/m2 Ravi Delong Systolic blood 2019-06-21 15:44:00 123 mm[Hg] [place] [facility] pressure Diastolic blood 2019-06-21 15:44:00 81 mm[Hg] [place] [facility] pressure Heart rate 2019-06-21 15:44:00 119 /min Ravi Delong Body temperature 2019-06-21 15:44:00 36.17 [place] [facility] Respiratory rate 2019-06-21 15:44:00 18 /min [place] [facility] Oxygen saturation in 2019-06-21 15:44:00 99 /min [...] Future Scheduled 2020-01-27 INFLUENZA VACCINE [facility] [facility] Test 00:00:00 [code = INFLUENZA VACCINE] Future Scheduled 2015-09-17 Screening for [facility]ist Test 00:00:00 malignant neoplasm of cervix (procedure) [code = 216454092] Encounters Start End Encounter Admission Attending Care Care Encounter Source Date/Time Date/Time Type Type Clinicians Facility Department ID 2019-06-21 2019-06-21 Emergency KELSI [facility] [id number] [place] 00:00:00 00:00:00 LISETH Muhammad Method i st Results Test Description Test Time Test Comments Results Result Comments Source Urine culture 2019-06-23 10:07:15 Test Item Value Reference Range Interpretation Comme nts Urine culture isolate Mixed buddy 10-5 Sp ecimen InformationSpecimen (test code = 52611-7) col/cc Source : UrineSpecimen Site: Urine, clean catch [place] MethodistGram [id number] 10:07:15 Test Item Value Reference Range Interpretation Comments Gram stain No WBC's or Specimen result (test organisms seen. InformationS pecimen code = 664-3) Source: UrineS pecimen Site: Urine, cl paramjit catch [place] [id number] 17:15:49 Test Item Value Reference Range Interpretation Comments Glucose, UA (test code = Negative Negative 71593-0) Bilirubin, UA (test code Footnote Negative Cora [...] UA (test code = 3+ Negative A 15623-3) Urobilinogen, UA (test <2.0 <2.0 code = 67115-0) Nitrite, UA (test code = Negative Negative 5802-4) Leukocyte esterase, UA Footnote Negative Unabl e to report due (test code = 5799-2) to inte rference from color of urine.Corrected result; previou sly reported as Tra ce on 06/21/2019 at 1 6:13 by [place] Color, UA (test code = Red 5778-6) Appearance, UA (test Clear code = 5767-9) Lab Interpretation (test Abnormal code = 14590-7) [place] MethodistComprehensive metabolic [id number] 17:09:01 Test Item Value Reference Range Interpretation Comments Sodium (test code = 2951-2) 138 128- 145 mEq/L Potassium (test code = 2823-3) 4.2 3.6- 5.1 mEq/L CO2 (test code = 2027-9) 25 18- 33 mEq/L Chloride (test code = 2075-0) 106 98- 108 mEq/L Glucose (test code = 2345-7) 96 mg/dL 73-118 Calcium (test code = 34831-1) 9.1 mg/dL 8-10.3 BUN (test code = [...] g/dL 6.4-8.1 Anion gap (test code = 11043-6) 7@ANIO 7- 15 mEq/L A/G ratio (test code = 1759-0) 1.5 0.7-3.8 Rodrigues MethodistEstimated [id number] 17:09:01 Test Item Value Reference Range Interpretation Comments Estimated GFR (test >=90 mL/min/1.73 [facility]2 [facility] Units code = 5488) InterpretationG 1 >=90 Normal or highG2 60-89 Mildly vxtrdpveoG2h 45-59 Mildly to mode rately elvtzcenfX6d 30-44 Moderately to severely decreasedG4 15-29 Severely decre asedG5 <15 Kidn ey failureThe eGFR was calculated usin g the Chronic Kidney Disease Epidemiology Co llaboration (CKD-EPI) equat ion. Interpretation is based on recommendations of the National Kidney Foundation-Kidn ey Disease Outcomes Qualit y Initiative (NKF-KDOQI) pub lished in 2014. Rodrigues MethodistUS Pelvic [id number] 17:02:27 Interface, Radiology Results 06/21/2019 5:05 PM [...] fluid was demonstrated within the pelvic cul-de-sac. [facility]-[id number] [facility] Pelvic [id number] 17:02:27 Interface, Radiology Results - 06/21/2019 5:05 [...] fluid was demonstrated within the pelvic cul-de-sac. [facility]-[id number] [facility] with platelet and [id number] 16:58:15 Test Item Value Reference Range Interpretation Comments WBC (test code = 11208-6) 9.58 4.50- 11.00 k/uL RBC (test code = 84745-0) 4.75 m/uL 4.2-5.5 HGB (test code = 718-7) 14.3 g/dL 12-16 HCT (test code = 4544-3) 42.2 % 37-47 MCV (test code = 787-2) 88.8 fL 82-100 MCH (test code = 785-6) 30.1 pg 27-34 MCHC (test code = 786-4) 33.9 g/dL 31-37 RDW - SD (test code = 09479-1) 44.0 fL 37-55 MPV (test code = 43486-2) 9.4 fL 8.8-13.2 Platelet count (test code = 463 150- 400 k/uL H 97812-2) Neutrophils (test code = 54355-4) 57.1 % 39-69 Lymphocytes (test code = 33085-6) 33.4 % 25-45 Monocytes (test code = 91499-0) 8.5 % 0-10 Eosinophils (test code = 75814-9) 0.6 % 0-5 Basophils (test code = 03779-0) 0.4 % 0-1 Lab Interpretation (test code = Abnormal 63168-7) [facility] qualitative, urine [id number] 16:13:05 Test Item Value Reference Range Interpretation Comments hCG qualitative, Negative Sensitivity of HCG test: urine (test code = 25 mIU/mL Negative test 6-3) results in linette ents suspected to be should be retes jd with a sample obtained 48-72 hours later, or by performing a qu antitative assay. Ravi [facility] W/AUTO [id number] 07:27:00 Test Item Value Reference Range Interpretation [...] NORMAL code = PLTMR) AG HEPATITIS B [id number] 04:15:00 Test Item Value Reference Range Interpretation Comments AG HEPATITIS B SURFACE (test code NONREACTIVE NONREACTIVE = HBSAG) AB HEPATITIS C [id number] 04:15:00 Test Item Value Reference Range Interpretation Comments AB HEPATITIS C (test code = NONREACTIVE NONREACTIVE HCVAB) SIGNAL TO CUTOFF (test code = 0.13 <0.80 N CUTOFF) RUBELLA [id number] 04:15:00 Test Item Value Reference Range Interpretation Comments RUBELLA SCREEN 70.2 IUnit/ml Results >10. 0IUnits/ml (test code = are considered positive RUBSC) inaccordance wi th the CLSI guidelines and based on the [employer] S tandard for Anti-Rubell a serum as anindicator of immune status and a br eakpoint to detect mostseropositiv e persons. AB [id number] 04:15:00 Test Item Value Reference Range Interpretation Comments AB TREPONEMA (test code = TREPAB) NONREACTIVE NONREACTIVE AG HEPATITIS B [id number] 04:00:00 Test Item Value Reference Range Interpretation Comments AG HEPATITIS B SURFACE (test code NONREACTIVE NONREACTIVE = HBSAG) AB HEPATITIS C [id number] 04:00:00 Test Item Value Reference Range Interpretation Comments AB HEPATITIS C (test code = HCVAB) NONREACTIVE SIGNAL TO CUTOFF (test code = CUTOFF) <0.80 RUBELLA [id number] 04:00:00 Test Item Value Reference Range Interpretation Comments RUBELLA SCREEN 70.2 IUnit/ml Results >10. 0IUnits/ml (test code = are considered positive RUBSC) inaccordance wi th the CLSI guidelines and based on the [employer] S tandard for Anti-Rubell a serum as anindicator of immune status and a br eakpoint to detect mostseropositiv e persons. AB [id number] 04:00:00 Test Item Value Reference Range Interpretation Comments AB TREPONEMA (test code = TREPAB) NONREACTIVE NONREACTIVE CBC W/AUTO [id number] 00:36:00 Test Item Value Reference Range Interpretation [...]
[2020-01-10 00:08] LABS: Absolute Lymphocytes (CBC) 3.4 K/uL (0.7-4.9); Hematocrit 38.4 % (36.0-45.0); MPV 8.2 fL (7.6-11.3); RBC Red Blood Cell Count 4.25 M/uL (3.86-4.86)
[2020-01-10 00:13] LABS: Protime INR 0.87
[2020-01-10 00:29] LABS: ALT/SGPT 32 U/L (12-78); AST/SGOT 11 U/L (15-37); Albumin 3.6 g/dL (3.4-5.0); Alkaline Phosphatase 64 U/L (45-117); BUN Blood Urea Nitrogen 10 mg/dL (7-18); Bicarbonate 26 mmol/L (21-32); Bilirubin Direct 0.1 mg/dL (0-0.2); Bilirubin Total 0.5 mg/dL (0.2-1.0); CKMB Creatine Kinase MB < 1.0 ng/mL (0.3-3.6); Creatine Phosphokinase 109 U/L (26-192); Glucose Level 86 mg/dL (74-106); Lipase 62 U/L (73-393); NT PRO-BNP 19 pg/mL (<125); Potassium 3.8 mmol/L (3.5-5.1); Protein, Total 7.1 g/dL (6.4-8.2); Sodium Level 140 mmol/L (136-145); Troponin (Emerg Dept Use Only) < 0.02 ng/mL (0.0-0.045)
--- NOTE | 2020-01-10 01:02 | ER ---
Nurse's Notes [facility] Name: Carla Duncan Age: 24 yrs Sex: Female : 1995 Arrival Date: 01/09/2020 Time: 18:51 Bed 15 Private MD: Diagnosis: Bronchitis;Viral Syndrome Presentation: 01/08 18:51 Chief complaint: EMS states: cough and shortness of breath that has gotten worse over ss the past 3 weeks since patient was diagnosed with Covid-19. Denies fever. Coronavirus screen: Patient reports a cough. Patient reports shortness of breath or difficulty breathing. Patient denies measured and/or subjective temperature greater than 100.4F prior to today's visit. Ebola Screen: Patient denies exposure to infectious person. Patient denies travel to an Ebola-affected area in the 21 days before illness onset. Initial Sepsis Screen: Does the patient meet any 2 criteria? No. Patient's initial sepsis screen is negative. Does the patient have a suspected source of infection? No. Patient's initial sepsis screen is negative. Risk Assessment: Do you want to hurt yourself or someone else? Patient reports no desire to harm self or others. Onset of symptoms was December 21, 2019. 18:51 Method Of Arrival: EMS: [facility] 18:51 Acuity: VENKATESH 3 ss Historical: - Allergies: 18:54 Stadol; ss 18:54 tramadol; ss 18:54 Tussin; ss - PMHx: 18:54 Anxiety; Asthma; Bipolar disorder; Depression; Ovarian cyst; ss - PSHx: 18:54 ; ss - Immunization history:: Adult Immunizations up to date. - Social history:: Smoking status: Patient denies any tobacco usage or history of. Screenin:45 Abuse screen: Denies threats or abuse. Nutritional screening: No deficits noted. jb4 Tuberculosis screening: No symptoms or risk factors identified. Fall Risk None identified. Assessment: 21:45 General: Appears in no apparent distress. uncomfortable, Behavior is calm, cooperative, jb4 appropriate for age. Pain: Complains of pain in back and chest Pain does not radiate. Pain currently is 8 out of 10 on a pain scale. Quality of pain is described as aching. Neuro: Level of Consciousness is awake, alert, obeys commands, Oriented to person, place, time, situation. Respiratory: Reports cough that is non-productive, Airway is patent Respiratory effort is even, unlabored, Respiratory pattern is regular, symmetrical, Breath sounds are clear bilaterally. GI: No signs and/or symptoms were reported involving the gastrointestinal system. : No signs and/or symptoms were reported regarding the genitourinary system. EENT: No signs and/or symptoms were reported regarding the EENT system. Derm: Skin is intact, Skin is pink, warm \T\ dry. Musculoskeletal: Circulation, motion, and sensation intact. Range of motion:. 21:45 Cardiovascular: Patient's skin is warm and dry. Rhythm is sinus rhythm. jb4 22:15 Reassessment: Patient appears in no apparent distress at this time. Patient and/or jb4 family updated on plan of care and expected duration. Pain level reassessed. Patient is alert, oriented x 3, equal unlabored respirations, skin warm/dry/pink. 23:15 Reassessment: Patient appears in no apparent distress at this time. Patient and/or jb4 family updated on plan of care and expected duration. Pain level reassessed. Patient is alert, oriented x 3, equal unlabored respirations, skin warm/dry/pink. 01/09 00:15 Reassessment: Patient appears in no apparent distress at this time. Patient and/or jb4 family updated on plan of care and expected duration. Pain level reassessed. Patient is alert, oriented x 3, equal unlabored respirations, skin warm/dry/pink. 01:15 Reassessment: Patient appears in no apparent distress at this time. Patient and/or jb4 family updated on plan of care and expected duration. Pain level reassessed. Patient is alert, oriented x 3, equal unlabored respirations, skin warm/dry/pink. PT reports soar throat, request flu and strep swab. Provider notified see [facility] for orders. EENT: Throat is clear is reddened with gag reflex present. 01:15 Reassessment: D/c pending lab results of flu and strep. jb4 01:58 Reassessment: Patient appears in no apparent distress at this time. Patient and/or jb4 family updated on plan of care and expected duration. Pain level reassessed. Patient is alert, oriented x 3, equal unlabored respirations, skin warm/dry/pink. PT verbalized understanding of d/c and follow up instructions . Denies questions or concerns. Ambulated out of ED with steady gait. Vital Signs: 01/08 18:51 BP 133 / 89; Pulse 107; Resp 18; Pulse Ox 97% on R/A; Weight 85.28 kg; Height 5 ft. 0 ss in. (152.40 cm); 19:17 Temp 98.8; ll1 21:24 Pulse 100; Resp 18; Pulse Ox 99% ; ll1 23:57 BP 107 / 76; Pulse 89; Resp 16; Pulse Ox 100% on R/A; jb4 01/09 01:15 BP 106 / 64; Pulse 87; Resp 16; Pulse Ox 97% on R/A; jb4 01/08 18:51 Body Mass Index 36.72 (85.28 kg, 152.40 cm) 01/08 21:24 Lung souncds clear, no wheezing. ll1 ED Course: 18:51 Patient arrived in ED. ss 18:54 Triage completed. 18:54 Arm band placed on right wrist. ss 21:45 Patient has correct armband on for positive identification. Bed in low position. Call jb4 light in reach. Side rails up X 1. Pulse ox on. NIBP on. 21:51 Raimundo Pollack MD is Attending Physician. [facility] 21:55 Luther Crump, RN is Primary Nurse. [facility] 22:47 Chest Single View XRAY In Process Unspecified. [facility] 01/09 01:58 No provider procedures requiring assistance completed. IV discontinued, intact, jb4 bleeding controlled, No redness/swelling at site. Pressure dressing applied. Administered Medications: 01:00 Drug: Tylenol 1000 mg Route: PO; jb4 01:59 Follow up: Response: No adverse reaction; Pain is decreased jb4 Outcome: 01:02 Discharge ordered by . 7 01:58 Discharged to home ambulatory, with friend. jb4 01:58 Condition: stable 01:58 Discharge instructions given to patient, Instructed on discharge instructions, follow up and referral plans. medication usage, Demonstrated understanding of instructions, follow-up care, medications, Prescriptions given X 3. 01:59 Patient left the ED. jb4 Signatures: Dispatcher [facility] Jenny Bautista RN RN Luther Crump RN JUDI [facility] Roberta Coker RN RN ll1 Raimundo Pollack MD MD mh7 Corrections: (The following items were deleted from the chart) 01/08 19:15 General: Appears in no apparent distress. uncomfortable, Behavior is calm, jb4 cooperative, appropriate for age, 01/09 19:15 Pain: Complains of pain in back and chest Pain does not radiate. Pain jb4 currently is 8 out of 10 on a pain scale. Quality of pain is described as aching, 01/09 01:01/08 19:15 Neuro: Level of Consciousness is awake, alert, obeys commands, Oriented to jb4 person, place, time, situation, 01/09:01/08 19:15 Cardiovascular: Patient's skin is warm and dry. Rhythm is sinus rhythm [facility] 01/09:01/08 19:15 Respiratory: Reports cough that is non-productive, Airway is patent jb4 Respiratory effort is even, unlabored, Respiratory pattern is regular, symmetrical, Breath sounds are clear bilaterally. 01/09 01:01/08 19:15 GI: No signs and/or symptoms were reported involving the gastrointestinal jb4 system. 01/09 19:15 : No signs and/or symptoms were reported regarding the genitourinary jb4 system. 01/09:01/08 19:15 EENT: No signs and/or symptoms were reported regarding the EENT system. [facility] 01/09:01/08 19:15 Derm: Skin is intact, Skin is pink, warm \T\ dry. [facility] 01/09:01/08 19:15 Musculoskeletal: Circulation, motion, and sensation intact. Range of jb4 motion: 01/09 01:01/08 20:15 Reassessment: Patient appears in no apparent distress at this time. Patient jb4 and/or family updated on plan of care and expected duration. Pain level reassessed. Patient is alert, oriented x 3, equal unlabored respirations, skin warm/dry/pink. 01/09 01:01/08 21:15 Reassessment: Patient appears in no apparent distress at this time. Patient jb4 and/or family updated on plan of care and expected duration. Pain level reassessed. Patient is alert, oriented x 3, equal unlabored respirations, skin warm/dry/pink. jb4
--- NOTE | 2020-01-10 01:02 | EDPHYS ---
Physician Documentation [facility] Name: Carla Duncan Age: 24 yrs Sex: Female : 1995 Arrival Date: 01/09/2020 Time: 18:51 Bed 15 Private MD: ED Physician Raimundo Pollack HPI: 01/08 22:25 This 24 yrs old Female presents to ER via EMS with complaints of mh7 Non-Productive Cough, Shortness Of Breath. 22:25 The patient or guardian reports cough, that is intermittent, described as moderate, mh7 difficulty breathing. Onset: The symptoms/episode began/occurred 1 day(s) ago. Severity of symptoms: At their worst the symptoms were moderate, yesterday, in the emergency department the symptoms have improved, mildly. Modifying factors: The symptoms are alleviated by nothing, the symptoms are aggravated by nothing. Associated signs and symptoms: Pertinent negatives: diarrhea, ear ache, fever, nausea, rhinorrhea, sore throat, vomiting. 22:27 Associated signs and symptoms: Pertinent positives: Pertinent negatives: chest pain. mh7 The patient has experienced similar episodes in the past, several times. States that she tested positive for COVID 19 3 weeks ago but got better then had cough and SOB starting yesterday.. Historical: - Allergies: 18:54 Stadol; ss 18:54 tramadol; ss 18:54 Tussin; ss - PMHx: 18:54 Anxiety; Asthma; Bipolar disorder; Depression; Ovarian cyst; ss - PSHx: 18:54 ; ss - Immunization history:: Adult Immunizations up to date. - Social history:: Smoking status: Patient denies any tobacco usage or history of. ROS: 22:27 Constitutional: Negative for fever, chills, and weight loss, Eyes: Negative for injury, mh7 pain, redness, and discharge, ENT: Negative for injury, pain, and discharge, Neck: Negative for injury, pain, and swelling, Cardiovascular: Negative for chest pain, palpitations, and edema, Abdomen/GI: Negative for abdominal pain, nausea, vomiting, diarrhea, and constipation, Back: Negative for injury and pain, : Negative for injury, bleeding, discharge, and swelling, MS/Extremity: Negative for injury and deformity, Skin: Negative for injury, rash, and discoloration, Neuro: Negative for headache, weakness, numbness, tingling, and seizure, Psych: Negative for depression, anxiety, suicide ideation, homicidal ideation, and hallucinations, Allergy/Immunology: Negative for hives, rash, and allergies, Endocrine: Negative for neck swelling, polydipsia, polyuria, polyphagia, and marked weight changes, Hematologic/Lymphatic: Negative for swollen nodes, abnormal bleeding, and unusual bruising. Exam: 22:27 Constitutional: This is a well developed, well nourished patient who is awake, alert, mh7 and in no acute distress. Head/Face: Normocephalic, atraumatic. Eyes: Pupils equal round and reactive to light, extra-ocular motions intact. Lids and lashes normal. Conjunctiva and sclera are non-icteric and not injected. Cornea within normal limits. Periorbital areas with no swelling, redness, or edema. Neck: Trachea midline, no thyromegaly or masses palpated, and no cervical lymphadenopathy. Supple, full range of motion without nuchal rigidity, or vertebral point tenderness. No Meningismus. Chest/axilla: Normal chest wall appearance and motion. Nontender with no deformity. No lesions are appreciated. Cardiovascular: Regular rate and rhythm with a normal S1 and S2. No gallops, murmurs, or rubs. Normal PMI, no JVD. No pulse deficits. Respiratory: Lungs have equal breath sounds bilaterally, clear to auscultation and percussion. No rales, rhonchi or wheezes noted. No increased work of breathing, no retractions or nasal flaring. Abdomen/GI: Soft, non-tender, with normal bowel sounds. No distension or tympany. No guarding or rebound. No evidence of tenderness throughout. Back: No spinal tenderness. No costovertebral tenderness. Full range of motion. Skin: Warm, dry with normal turgor. Normal color with no rashes, no lesions, and no evidence of cellulitis. MS/ Extremity: Pulses equal, no cyanosis. Neurovascular intact. Full, normal range of motion. Neuro: Awake and alert, GCS 15, oriented to person, place, time, and situation. Cranial nerves II-XII grossly intact. Motor strength 5/5 in all extremities. Sensory grossly intact. Cerebellar exam normal. Normal gait. Psych: Awake, alert, with orientation to person, place and time. Behavior, mood, and affect are within normal limits. 01/09 00:19 ECG was reviewed by the Attending Physician. [facility] Vital Signs: 01/08 18:51 BP 133 / 89; Pulse 107; Resp 18; Pulse Ox 97% on R/A; Weight 85.28 kg; Height 5 ft. 0 ss in. (152.40 cm); 19:17 Temp 98.8; ll1 21:24 Pulse 100; Resp 18; Pulse Ox 99% ; ll1 23:57 BP 107 / 76; Pulse 89; Resp 16; Pulse Ox 100% on R/A; jb4 01/09 01:15 BP 106 / 64; Pulse 87; Resp 16; Pulse Ox 97% on R/A; [facility] 01/08 18:51 Body Mass Index 36.72 (85.28 kg, 152.40 cm) ss 01/08 21:24 Lung souncds clear, no wheezing. ll1 MDM: 22:19 Patient medically screened. [facility] 01/09 00:58 Differential Diagnosis: Bronchitis Upper Respiratory Infection Asthma Exacerbation [facility] Viral Syndrome Pneumonia. Data reviewed: vital signs, nurses notes, old medical records, lab test result(s), cardiac enzymes, CBC, electrolytes, urinalysis, EKG, radiologic studies, plain films. Data interpreted: Pulse oximetry: on room air is 100 %. Interpretation: normal. Counseling: I had a detailed discussion with the patient and/or guardian regarding: the historical points, exam findings, and any diagnostic results supporting the discharge/admit diagnosis, lab results, radiology results, the need for outpatient follow up, to return to the emergency department if symptoms worsen or persist or if there are any questions or concerns that arise at home. Response to treatment: the patient's symptoms have markedly improved after treatment. 01/08 22:19 Order name: Blood Culture Adult (2) [facility] 01/08 22:19 Order name: BMP; Complete Time: 00:44 [facility] 01/08 22:19 Order name: CBC with Diff; Complete Time: 00:18 [facility] 01/08 22:19 Order name: Ckmb; Complete Time: 00:44 [facility] 01/08 22:19 Order name: CPK; Complete Time: 00:44 [facility] 01/08 22:19 Order name: D-Dimer; Complete Time: 00:18 mh01/08 22:19 Order name: Hepatic Function; Complete Time: 00:44 01/08 22:19 Order name: Lipase; Complete Time: 00:44 01/08 22:19 Order name: Magnesium; Complete Time: 00:44 01/08 22:19 Order name: NT PRO-BNP; Complete Time: 00:44 01/08 22:19 Order name: PT-INR; Complete Time: 00:18 01/08 22:19 Order name: Ptt, Activated; Complete Time: 00:18 01/08 22:19 Order name: Troponin (emerg Dept Use Only); Complete Time: 00:44 01/08 22:20 Order name: UDS; Complete Time: 01:06 01/08 22:19 Order name: EKG; Complete Time: 22:20 01/08 22:19 Order name: Cardiac monitoring; Complete Time: 00:26 01/08 22:19 Order name: EKG - Nurse/Tech; Complete Time: 00:26 01/08 22:19 Order name: IV Saline Lock; Complete Time: 00:26 01/08 22:19 Order name: Labs collected and sent; Complete Time: 00:26 01/08 22:19 Order name: O2 Per Protocol; Complete Time: 00:26 01/08 22:19 Order name: O2 Sat Monitoring; Complete Time: 00:26 01/08 22:20 Order name: Chest Single View XRAY [facility] 01/08 22:20 Order name: Urine Test (obtain specimen); Complete Time: 01:20 [facility] 01/09 01:13 Order name: Influenza Screen (a \T\ B) [facility] 01/09 01:13 Order name: Rapid Strep [facility] 01/09 01:45 Order name: Throat Culture EDMS EC:19 Rate is 92 beats/min. Rhythm is regular, Normal Sinus Rhythm. QRS [place] is Normal. [place] mh7 interval is normal. QRS interval is normal. QT interval is normal. No Q waves. T waves are Normal. No ST changes noted. Clinical impression: Normal ECG. Administered Medications: 01:00 Drug: Tylenol 1000 mg Route: PO; jb4 01:59 Follow up: Response: No adverse reaction; Pain is decreased jb4 Disposition: 01/10/20 01:02 Discharged to Home. Impression: Bronchitis, Viral Syndrome. - Condition is Stable. - Discharge Instructions: Acute Bronchitis, [id number]. - Prescriptions for Tessalon Perles 100 mg Oral Capsule - take 1 capsule by ORAL route every 8 hours As needed; 15 capsule. Prednisone 20 mg Oral Tablet - take 2 tablet by ORAL route once daily for 5 days; 10 tablet. Albuterol Sulfate 90 mcg/actuation - inhale 1-2 puff by INHALATION route every 4-6 hours; 1 Inhaler. - Medication Reconciliation Form, Thank You Letter, Antibiotic Education, Prescription Opioid Use form. - Follow up: Private Physician; When: 1 - 2 days; Reason: Worsening of condition, Recheck today's complaints, Continuance of care, Re-evaluation by your physician. - Problem is an ongoing problem. - Symptoms have improved. Signatures: Dispatcher [employer] EDMS Jenny Bautista RN RN Luther Crump RN RN jb4 Raimundo Pollack MD MD mh7 Corrections: (The following items were deleted from the chart) 01:59 01:02 01/10/2020 01:02 Discharged to Home. Impression: Bronchitis; Viral Syndrome. jb4 Condition is Stable. Forms are Medication Reconciliation Form, Thank You Letter, Antibiotic Education, Prescription Opioid Use. Follow up: Private Physician; When: 1 - 2 days; Reason: Worsening of condition, Recheck today's complaints, Continuance of care, Re-evaluation by your physician. Problem is an ongoing problem. Symptoms have improved. mh7
[2020-01-10 01:04] LABS: Barbiturates NEGATIVE (NEGATIVE); Benzodiazepines POSITIVE (NEGATIVE); Cocaine NEGATIVE (NEGATIVE); METHAMPHETAM NEGATIVE (NEGATIVE); Methadone NEGATIVE (NEGATIVE); Opiates NEGATIVE (NEGATIVE); Phencyclidine NEGATIVE (NEGATIVE); THC Cannibis NEGATIVE (NEGATIVE)
[2020-01-10] MEDS ORDERED: ACETAMINOPHEN 500 MG TAB ONE (01:07)
[2020-01-10 02:06] VITALS: TEMP 98.8
[2020-01-10 02:10] VITALS: BP 106/64; O2SAT 97
--- NOTE | 2020-01-10 07:45 | EKG ---
Test Date: 2020-01-09 Test Time: 23:23:15 Teller: SHELBI MEASUREMENT RESULTS: Intervals: Rate: 92 MN: 152 QRSD: 76 QT: 354 QTc: 437 Thorp: P: 52 MN: 152 QRS: 29 T: 23 INTERPRETIVE STATEMENTS: Normal sinus rhythm Normal ECG Compared to ECG 11/17/2019 04:15:08 No significant changes Electronically Signed On 01-10-20 07:44:24 CDT by Jatin Sandhu
--- NOTE | 2020-01-10 08:30 | RAD REPORT ---
EXAM DESCRIPTION: Brandy Single View01/09/2020 10:46 pm CLINICAL HISTORY: Shortness breath COMPARISON: December 31, 2019 FINDINGS: The lungs appear clear of acute infiltrate. The heart is normal size IMPRESSION: No acute abnormalities displayed
== END 2020-01-10 01:59 | disposition home or self-care (01) ==
LOC: ER 18:49
DX: J40 Bronchitis, not specified as acute or chronic (principal); B34.9 Viral infection, unspecified; Z88.5 Allergy status to narcotic agent; Z88.8 Allergy status to other drugs, medicaments and biological substances
CPT/HCPCS: 36415; 71045; 80048; 80076; 80307; 82550; 82553; 83690; 83735; 83880; 84484; 85025; 85379; 85610; 85730; 87040; 87070; 87081; 87804; 93005; 99284

== ENCOUNTER 2020-01-31 13:19 | Emergency (ER) | payer BC, OTHER ==
--- OUTSIDE RECORDS SUMMARY | 2020-01-31 13:22 | XMS REPORT | Clinical Summary ---
:1995 Author Organization [employer] Address [address] [place] [address] Care Team Providers Name Role Phone Asked, [...] ion; Lower abdominal pain; Vagina bleeding after 01/30/2019 Family History Medical History Relation Name Comments [...] Comments Blood Pressure 123/81 06/21/2019 3:44 PM SWINE EXTENSION FIELD SPECIALIST Pulse 119 06/21/2019 3:44 PM SWINE EXTENSION FIELD SPECIALIST Temperature 36.2 C (97.1 F) 06/21/2019 3:44 PM SWINE EXTENSION FIELD SPECIALIST Respiratory Rate 18 06/21/2019 3:44 PM SWINE EXTENSION FIELD SPECIALIST Oxygen Saturation 99% 06/21/2019 3:44 PM SWINE EXTENSION FIELD SPECIALIST Inhaled Oxygen Concentration - - Weight 80.3 kg (177 lb) 06/21/2019 4:57 PM SWINE EXTENSION FIELD SPECIALIST Height 152.4 cm (5') 06/21/2019 4:57 PM SWINE EXTENSION FIELD SPECIALIST Body Mass Index 34.57 06/21/2019 4:57 PM SWINE EXTENSION FIELD SPECIALIST Plan of Treatment Health Maintenance Due Date Last Done Comments CERVICAL CANCER SCREENING 09/17/2015 INFLUENZA VACCINE 01/27/2020 Procedures Procedure Name Priority Date/Time Associated Comments Diagnosis US PELVIC TRANSVAGINAL STAT 06/21/2019 4:58 R esults for this PM SWINE EXTENSION FIELD SPECIALIST procedure are i n the results section. US PELVIC STAT 06/21/2019 4:58 Results for this TRANSABDOMINAL PM SWINE EXTENSION FIELD SPECIALIST procedure are in the results section. ESTIMATED GFR STAT 06/21/2019 4:07 Results fo r this PM SWINE EXTENSION FIELD SPECIALIST procedure are i n the results section. COMPREHENSIVE METABOLIC STAT 06/21/2019 4:07 Results for this PANEL PM SWINE EXTENSION FIELD SPECIALIST procedure are i n the results section. HC COMPLETE BLD COUNT STAT 06/21/2019 4:07 Re sults for this W/AUTO DIFF PM SWINE EXTENSION FIELD SPECIALIST procedure are i n the results section. GRAM STAIN STAT 06/21/2019 3:59 Results for this PM SWINE EXTENSION FIELD SPECIALIST procedure are i n the results section. URINE CULTURE STAT 06/21/2019 3:59 Results fo r this PM SWINE EXTENSION FIELD SPECIALIST procedure are i n the results section. HCG QUALITATIVE, URINE STAT 06/21/2019 3:53 R esults for this SCREEN PM SWINE EXTENSION FIELD SPECIALIST procedure are i n the results section. URINALYSIS STAT 06/21/2019 3:53 Results for this PM SWINE EXTENSION FIELD SPECIALIST procedure are i n the results section. after 01/30/2019 Results US Pelvic Transabdominal (06/21/2019 4:58 PM SWINE EXTENSION FIELD SPECIALIST) Specimen Narrative Performed At EXAMINATIONS: [facility] US [...] was demonstrated within the pel ayanna cul-de-sac. [facility]-[id number] Procedure Note Interface, Radiology Results Incoming - 06/21/2019 5:05 PM SWINE EXTENSION FIELD SPECIALIST EXAMINATIONS: US PELVIC TRANSABDOMINAL US PELVIC TRANSVAGINAL [...] was demonstrated within the pel ayanna cul-de-sac. [facility]-[id number] Performing Organization Address City/State/Zipcode Phone Number [facility] [address] [place] [address] US Pelvic Transvaginal (06/21/2019 4:58 PM SWINE EXTENSION FIELD SPECIALIST) Specimen Narrative Performed At EXAMINATIONS: [facility] US PELVIC TRANSABDOMINAL US PELVIC TRANSVAGINAL CLINICAL [...] was demonstrated within the pel ayanna cul-de-sac. [facility]-[id number] Procedure Note Interface, Radiology Results Incoming - 06/21/2019 5:05 PM SWINE EXTENSION FIELD SPECIALIST EXAMINATIONS: US PELVIC TRANSABDOMINAL US PELVIC TRANSVAGINAL [...] was demonstrated within the pel ayanna cul-de-sac. [facility]-[id number] Performing Organization Address City/State/Zipcode Phone Number [facility] [address] [place] [address] Estimated GFR (06/21/2019 4:07 PM SWINE EXTENSION FIELD SPECIALIST) Estimated GFR >=90 mL/min/1.73 [facility] Comment: m2 [facility] Units Interpretation [facility] G1 >=90 [...] 2014. Specimen Plasma specimen Performing Organization Address City/[facility]/Zipcode Phone Number DEPARTMENT OF PATHOLOGY AND [address] [place] [address] 7 [phone] [facility], [facility] [address] [place] [address] EMERG[facility]Y [facility]ARE CENTER CBC with platelet and differential (06/21/2019 4:07 PM SWINE EXTENSION FIELD SPECIALIST) Pathologist Sig nature WBC 9.58 4.50 - 11.00 k/uL [facility] EMERGENCY [facility] RBC 4.75 4.20 - 5.50 m/uL [facility] HGB 14.3 12.0 - 16.0 g/dL [facility] EMERGENCY [facility] HCT 42.2 37.0 - 47.0 % [facility] MCV 88.8 82.0 - 100.0 fL [facility] MCH 30.1 27.0 - 34.0 pg [facility] MCHC 33.9 31.0 - 37.0 g/dL [facility] RDW - SD 44.0 37.0 - 55.0 fL [facility] MPV 9.4 8.8 - 13.2 fL [facility] Platelet count 463 (H) 150 - 400 k/uL [facility] Neutrophils 57.1 39.0 - 69.0 % [facility] Lymphocytes 33.4 25.0 - 45.0 % [facility] Monocytes 8.5 0.0 - 10.0 % [facility] Eosinophils 0.6 0.0 - 5.0 % [facility] Basophils 0.4 0.0 - 1.0 % [facility] Specimen Blood Performing Organization Address City/State/Zipcode Phone Number DEPARTMENT OF PATHOLOGY AND [id number] [place] [address] 7 [address]123 [facility], [facility] [address] [place] [address] EMERGENCY [facility] Comprehensive metabolic panel (06/21/2019 4:07 PM SWINE EXTENSION FIELD SPECIALIST) Pathologist Sig nature Sodium 138 128 - 145 mEq/L [facility] Potassium 4.2 3.6 - 5.1 mEq/L [facility] CO2 25 18 - 33 mEq/L [facility] Chloride 106 98 - 108 mEq/L [facility] Glucose 96 73 - 118 mg/dL [facility] Calcium 9.1 8.0 - 10.3 mg/dL [facility] BUN 10 7 - 22 mg/dL [facility] Creatinine 0.7 0.5 - 0.9 mg/dL [facility] Alkaline phosphatase 63 42 - 141 U/L [facility] ALT 24 10 - 47 U/L [facility] AST 16 11 - 38 U/L [facility] Total bilirubin 0.6 0.2 - 1.6 mg/dL [facility] Albumin 4.6 3.3 - 5.5 g/dL [facility] Protein 7.7 6.4 - 8.1 g/dL [facility] Anion gap 7@ANIO 7 - 15 mEq/L [facility] A/G ratio 1.5 0.7 - 3.8 [facility] Specimen Plasma specimen Performing Organization Address City/[facility] Phone Number DEPARTMENT OF PATHOLOGY AND [address] [place], [place] [address] [facility] [address] [place] [address] EMERGENCY CARE CENTER Gram stain (06/21/2019 3:59 PM SWINE EXTENSION FIELD SPECIALIST) Gram stain result No WBC's or organisms seen. DAVID GORDON Comment: HOSPITAL Specimen Information Specimen Source: Urine Specimen Site: Urine, clean catch Specimen Urine - Urine, clean catch Performing Organization Address City/[facility]ode Phone Number [facility] DEPARTMENT OF PATHOLOGY AND [address] [place] [address] [phone] [address] Urine culture (06/21/2019 3:59 PM SWINE EXTENSION FIELD SPECIALIST) Urine culture Mixed buddy 10-5 col/cc DAVID METHOD[facility] T isolate Comment: HOSPITAL Specimen Information Specimen Source: Urine Specimen Site: Urine, clean catch Specimen Urine - Urine, clean catch Performing Organization Address [facility] Phone Number [facility] DEPARTMENT OF PATHOLOGY AND [address] [place] [address] [phone] [address] Urinalysis (06/21/2019 3:53 PM SWINE EXTENSION FIELD SPECIALIST) Glucose, UA Negative Negative [facility] Bilirubin, UA Footnote Negative [place] Comment: ISLAM Unable to report due to interference from color of uri az. STARTEX Corrected result; previously reported as Positiv [email or web address] on 06/21/2019 at 16:13 EMERGENCY CARE by [facility] Ketones, UA Negative Negative [facility] Specific gravity, 1.015 1.001 - 1.035 [facility] Blood, UA Large (A) Negative [facility] pH, UA 8.5 5.0 - 8.5 [facility] Protein, UA 3+ (A) Negative [facility] Urobilinogen, UA <2.0 <2.0 [facility] Nitrite, UA Negative Negative [facility] Leukocyte Footnote Negative [place] esterase, UA Comment: ISLAM Unable to report due to interference from color of uri az. STARTEX Corrected result; previously reported as Trace o n 06/21/2019 at 16:13 by [place] [facility] Color, UA Red [facility] Appearance, UA Clear [facility] Specimen Urine Performing Organization Address City/State/Zipcode Phone Number DEPARTMENT OF PATHOLOGY AND [id number] [place] [address] [place] [address] EMERGENCY [facility] hCG qualitative, urine screen (06/21/2019 3:53 PM SWINE EXTENSION FIELD SPECIALIST) hCG qualitative, Negative [facility] urine Comment: STARTEX Sensitivity of HCG test: 25 mIU/mL [facility] Negative test results in patients suspected CENTER to be should be retested with a sample obtained 48-72 hours later, or by performing a quantitative assay. Specimen Urine Performing Organization Address City/[facility] Centercode Phone Number DEPARTMENT OF PATHOLOGY AND [address] [place] [address] [address] [place] [address] EMERGENCY CARE CENTER after 01/30/2019 Insurance Payer Benefit Plan / Subscriber ID Effective Dates Phone Addre ss Type Group MEDICAID MEDICAID xxxxxxxxx 2016-Present Med [employer] [facility] xxxxxxxxx 2016-Presen HMO CHOICE CHC/STAR JOBY t CIGNA CIGNA OPEN xxxxxxxxxxx 2016-Present HMO ACCESS/NETWORK BCBS BCBS CHOICE xxxxxxxxx 2019-Prese P PO PPO/FEDERAL nt EMPL PPO BCBS BCBS CHOICE xxxxxxxxxxxx 2019-Presen PPO PPO/FEDERAL t EMPL PPO Advance Directives For more information, please contact: [phone] Type Date Recorded Patient Facilities Engineering Manager Explanati on Advance Directives, Living Will and Medical Power of Healthcare Architect
--- OUTSIDE RECORDS SUMMARY | 2020-01-31 13:23 | XMS REPORT | Continuity of Care Document ---
:1995 Author Organization [facility] t Address [address] [place] [address] Care Team Providers Name Role Phone Asked, Pcp Primary Care Physician Unavailable Casey Merchant MD Attending Clinician Payers Payer Name Policy Type Policy Number Effective Date Expiration Date Geovani yeager MEDICAIDMEDICAID xxxxxxxxx 2016 [place] xxxxxxxxx 00:00:00 Abhishek tee 6-PresentMedicai d [facility] xxxxxxxxx 2016 [place] CHOICEON LICENSE OF [facility] 00:00:00 Mandaen CHC/STAR [id number] /2016-PresentHMO CIGNACIGNA OPEN xxxxxxxxxxx 2016 [place] ACCESS/NETWORKxx 00:00:00 Abhishek tee -PresentHMO BCBSBCBS CHOICE xxxxxxxxx 2019 [place] PPO/FEDERAL EMPL 00:00:00 Methodcipriano t OXAgdykciigx08/2 10/2018-PresentPP O Problems This patient has no known problems. Allergies, Adverse Reactions, Alerts Allergy Allergy Status Severity Reaction(s) Onset Inactive Treating Comm ents Source Name Type Date Date Clinician Nemesioorphcortez Propensi Active Palpitations 2018-06 [place] nol ty to 2-25 Method[facility] Tartrate adverse 00:00: st reaction 00 s to drug morphine DA Active [facility] [place] codeine DA Active [place] [facility] [place] tramadol DA Active [place] 2017-06 [facility] [place] Tramadol Propensi Active Other (See headache [place] ty to Comments) 03-11 Methodi adverse 00:00: st reaction 00 s to drug Acetamin Propensi Active Shortness Of [place] ophen-Co ty to Breath 03-11 Methodi deine adverse 00:00: st reaction 00 s to drug No Known DA Active U [facility] Allergie 3-14 [facility]: [facility] [place] Family History Family Member Diagnosis Comments Start Date Stop Date Source Natural mother Diabetes [facility] Natural mother Menstrual problems [place] Social History Social Habit Start Date Stop Date Quantity Comments Source Sex Assigned At [facility] ethodist Alcohol intake 2019-06-21 2019-06-21 Current drinker [place] 00:00:00 00:00:00 of alcohol (finding) Alcohol Comment 2016-04-28 2016-04-28 social, weekly [place] 00:00:00 00:00:00 Smoking Status Start Date Stop Date Source Never smoker [facility] Medications Ordered Filled Start Stop Current Ordering [...] 2 [place] en-caff-pyr 2-25 tablets by Pa thodi ilamine 17:05: mouth. st 500-60-15 17 [...] blood 2019-06-21 15:44:00 123 mm[Hg] [place] pressure Diastolic blood 2019-06-21 15:44:00 81 mm[Hg] [place] Mandaen pressure Heart rate 2019-06-21 15:44:00 119 /min Ravi Delong Body temperature 2019-06-21 15:44:00 36.17 [place] Respiratory rate 2019-06-21 15:44:00 18 /min [place] Oxygen saturation in 2019-06-21 15:44:00 99 /min [...] Future Scheduled 2020-01-27 INFLUENZA VACCINE [place] n Mandaen Test 00:00:00 [code = INFLUENZA VACCINE] Future Scheduled 2015-09-17 Screening for Rodrigues Me thodist Test 00:00:00 malignant neoplasm of cervix (procedure) [code = 802182051] Encounters Start End Encounter Admission Attending Care Care Encounter Source Date/Time Date/Time Type Type Clinicians Facility Department ID 2019-06-21 2019-06-21 Emergency [facility] [id number] [place] 00:00:00 00:00:00 LISETH Muhammad Method i st Results Test Description Test Time Test Comments Results Result Comments Source Urine culture 2019-06-23 10:07:15 Test Item Value Reference Range Interpretation Comme nts Urine culture isolate Mixed buddy 10-5 Sp ecimen InformationSpecimen (test code = 45985-9) col/cc Source : UrineSpecimen Site: Urine, clean catch [place] MethodistGram [id number] 10:07:15 Test Item Value Reference Range Interpretation Comments Gram stain No WBC's or Specimen result (test organisms seen. InformationS pecimen code = 664-3) Source: UrineS pecimen Site: Urine, cl paramjit catch [place] [id number] 17:15:49 Test Item Value Reference Range Interpretation Comments Glucose, UA (test code = Negative Negative 68412-2) Bilirubin, UA (test code Footnote Negative Cora [...] UA (test code = 3+ Negative A 71925-6) Urobilinogen, UA (test <2.0 <2.0 code = 38420-4) Nitrite, UA (test code = Negative Negative 5802-4) Leukocyte esterase, UA Footnote Negative Unabl e to report due (test code = 5799-2) to inte rference from color of urine.Corrected result; previou sly reported as Tra ce on 06/21/2019 at 1 6:13 by [place] Color, UA (test code = Red 5778-6) Appearance, UA (test Clear code = 5767-9) Lab Interpretation (test Abnormal code = 52502-1) [place] MethodistComprehensive metabolic [id number] 17:09:01 Test Item Value Reference Range Interpretation Comments Sodium (test code = 2951-2) 138 128- 145 mEq/L Potassium (test code = 2823-3) 4.2 3.6- 5.1 mEq/L CO2 (test code = 2027-9) 25 18- 33 mEq/L Chloride (test code = 2075-0) 106 98- 108 mEq/L Glucose (test code = 2345-7) 96 mg/dL 73-118 Calcium (test code = 07811-6) 9.1 mg/dL 8-10.3 BUN (test code = [...] g/dL 6.4-8.1 Anion gap (test code = 43478-2) 7@ANIO 7- 15 mEq/L A/G ratio (test code = 1759-0) 1.5 0.7-3.8 Rodrigues MethodistEstimated [id number] 17:09:01 Test Item Value Reference Range Interpretation Comments Estimated GFR (test >=90 mL/min/1.73 [facility]2 [facility] Units code = 5488) InterpretationG 1 >=90 Normal or highG2 60-89 Mildly wvxhwwjvwX3q 45-59 Mildly to mode rately tfcdcdwkmT3q 30-44 Moderately to severely decreasedG4 15-29 Severely decre asedG5 <15 Kidn ey failureThe eGFR was calculated usin g the Chronic Kidney Disease Epidemiology Co llaboration (CKD-EPI) equat ion. Interpretation is based on recommendations of the National Kidney Foundation-Kidn ey Disease Outcomes Qualit y Initiative (NKF-KDOQI) pub lished in 2014. Rodrigues MethodistUS Pelvic [id number] 17:02:27 Interface, Radiology Results 06/21/2019 5:05 PM [...] fluid was demonstrated within the pelvic cul-de-sac. [facility]-[id number] [facility] Pelvic [id number] 17:02:27 Interface, Radiology Results - 06/21/2019 5:05 [...] fluid was demonstrated within the pelvic cul-de-sac. [facility]-[id number] [facility] with platelet and [id number] 16:58:15 Test Item Value Reference Range Interpretation Comments WBC (test code = 69584-2) 9.58 4.50- 11.00 k/uL RBC (test code = 72335-6) 4.75 m/uL 4.2-5.5 HGB (test code = 718-7) 14.3 g/dL 12-16 HCT (test code = 4544-3) 42.2 % 37-47 MCV (test code = 787-2) 88.8 fL 82-100 MCH (test code = 785-6) 30.1 pg 27-34 MCHC (test code = 786-4) 33.9 g/dL 31-37 RDW - SD (test code = 40419-7) 44.0 fL 37-55 MPV (test code = 25756-9) 9.4 fL 8.8-13.2 Platelet count (test code = 463 150- 400 k/uL H 82845-7) Neutrophils (test code = 42787-3) 57.1 % 39-69 Lymphocytes (test code = 03732-0) 33.4 % 25-45 Monocytes (test code = 06943-2) 8.5 % 0-10 Eosinophils (test code = 99768-2) 0.6 % 0-5 Basophils (test code = 38594-7) 0.4 % 0-1 Lab Interpretation (test code = Abnormal 28943-2) [facility] qualitative, urine [id number] 16:13:05 Test Item Value Reference Range Interpretation Comments hCG qualitative, Negative Sensitivity of HCG test: urine (test code = 25 mIU/mL Negative test 6-3) results in linette ents suspected to be should be retes jd with a sample obtained 48-72 hours later, or by performing a qu antitative assay. Ravi [facility] W/AUTO [id number] 07:27:00 Test Item Value Reference Range Interpretation [...] NORMAL code = PLTMR) AG HEPATITIS B [id number] 04:15:00 Test Item Value Reference Range Interpretation Comments AG HEPATITIS B SURFACE (test code NONREACTIVE NONREACTIVE = HBSAG) AB HEPATITIS C [id number] 04:15:00 Test Item Value Reference Range Interpretation Comments AB HEPATITIS C (test code = NONREACTIVE NONREACTIVE HCVAB) SIGNAL TO CUTOFF (test code = 0.13 <0.80 N CUTOFF) RUBELLA [id number] 04:15:00 Test Item Value Reference Range Interpretation Comments RUBELLA SCREEN 70.2 IUnit/ml Results >10. 0IUnits/ml (test code = are considered positive RUBSC) inaccordance wi th the CLSI guidelines and based on the [employer] S tandard for Anti-Rubell a serum as anindicator of immune status and a br eakpoint to detect mostseropositiv e persons. AB [id number] 04:15:00 Test Item Value Reference Range Interpretation Comments AB TREPONEMA (test code = TREPAB) NONREACTIVE NONREACTIVE AG HEPATITIS B [id number] 04:00:00 Test Item Value Reference Range Interpretation Comments AG HEPATITIS B SURFACE (test code NONREACTIVE NONREACTIVE = HBSAG) AB HEPATITIS C [id number] 04:00:00 Test Item Value Reference Range Interpretation Comments AB HEPATITIS C (test code = HCVAB) NONREACTIVE SIGNAL TO CUTOFF (test code = CUTOFF) <0.80 RUBELLA [id number] 04:00:00 Test Item Value Reference Range Interpretation Comments RUBELLA SCREEN 70.2 IUnit/ml Results >10. 0IUnits/ml (test code = are considered positive RUBSC) inaccordance wi th the CLSI guidelines and based on the [employer] S tandard for Anti-Rubell a serum as anindicator of immune status and a br eakpoint to detect mostseropositiv e persons. AB [id number] 04:00:00 Test Item Value Reference Range Interpretation Comments AB TREPONEMA (test code = TREPAB) NONREACTIVE NONREACTIVE CBC W/AUTO [id number] 00:36:00 Test Item Value Reference Range Interpretation [...]
--- NOTE | 2020-01-31 15:54 | ER ---
Nurse's Notes [facility] Name: Carla Duncan Age: 24 yrs Sex: Female : 1995 Arrival Date: 01/31/2020 Time: 13:26 Bed Waiting Private MD: Diagnosis: Presentation: 01/30 13:42 Chief complaint: Patient states: Positive for Covid-19 in November 2019. Ever since then, ca1 cough hasn't been gone, throat sounds like it's whistling, and has lots of pressure on chest. Reports wheezing with breathing. Coronavirus screen: Client denies travel out of the [place] in the last 14 days. cough unrelated to allergies, headache, muscle pain, runny nose, sore throat, Client presents with at least one sign or symptom that may indicate coronavirus-19. Standard/surgical mask placed on the client. Provider contacted for isolation considerations. Client reports previous positive COVID test result. Date of collection: December 12, 2019 [facility] Staff notified of need for isolation. Ebola Screen: Patient negative for fever greater than or equal to 101.5 degrees Fahrenheit, and additional compatible Ebola Virus Disease symptoms Patient denies exposure to infectious person. Patient denies travel to an Ebola-affected area in the 21 days before illness onset. No symptoms or risks identified at this time. Initial Sepsis Screen: Does the patient meet any 2 criteria? No. Patient's initial sepsis screen is negative. Does the patient have a suspected source of infection? No. Patient's initial sepsis screen is negative. Risk Assessment: Do you want to hurt yourself or someone else? Patient reports no desire to harm self or others. Onset of symptoms was January 31, 2020. 13:42 Method Of Arrival: Ambulatory ca1 13:42 Acuity: VENKATESH 3 ca1 REGULATORY SCIENTIST: 13:47 LMP 01/26/2020 ca1 Historical: - Allergies: 13:47 Stadol; ca1 13:47 tramadol; ca1 - Home Meds: 13:47 Prozac Oral [Active]; Seroquel Oral [Active]; xanax PRN [Active]; proair [Active]; ca1 - PMHx: 13:47 Anxiety; Asthma; Bipolar disorder; Depression; Ovarian cyst; ca1 - PSHx: 13:47 ; ca1 - Immunization history:: Adult Immunizations up to date. - Social history:: Smoking status: Reported history of juuling and/or vaping. Assessment: 14:59 Reassessment: called to exam room from [facility]. No answer. Unable to locate patient at this time. Will try again momentarily. 15:07 Reassessment: called from [facility] again. No answer. ss 15:50 Reassessment: Called from lob. No answer. Unable to locate patient. Vital Signs: 13:42 BP 113 / 81; Pulse 99; Resp 15 S; Temp 97.2(TE); Pulse Ox 98% on R/A; Weight 86.18 kg ca1 (R); Height 5 ft. 0 in. (152.40 cm); 13:42 Body Mass Index 37.11 (86.18 kg, 152.40 cm) [facility] ED Course: 13:26 Patient arrived in ED. [facility] 13:46 Triage completed. ca1 13:47 Arm band placed on right wrist. [facility] 14:58 Madison Marrufo, RN is Primary Nurse. ph Administered Medications: No medications were administered Outcome: 15:50 Eloped from waiting room. ss 15:53 Patient left the ED. Signatures: Jenny Bautista RN RN Madison Marrufo, JUDI RN Shanita Gale RN RN [facility] Aurelio Sloan [facility]
[2020-01-31 15:58] VITALS: BP 113/81; TEMP 97.2; O2SAT 98
== END 2020-01-31 15:53 | disposition left against medical advice (07) ==
LOC: ER 13:19
DX: Z02.9 Encounter for administrative examinations, unspecified (principal)
CPT/HCPCS: 99281

== ENCOUNTER 2020-04-27 22:38 | Emergency (ER) | payer BC ==
--- OUTSIDE RECORDS SUMMARY | 2020-04-27 22:41 | XMS REPORT | Clinical Summary ---
:1995 Author Organization [facility] Address [address] [place] [address] Care Team Providers Name Role Phone Asked, [...] ion; Lower abdominal pain; Vagina bleeding after 04/27/2019 Surgical History Surgery Date Site/Laterality Comments SECTION Medical History Medical History Date Comments Migraine Ovarian cyst Bipolar 1 disorder, depressed (HCC) 10 years ago Anxiety Asthma Family History Medical History Relation Name Comments [...] Comments Blood Pressure 123/81 06/21/2019 3:44 PM VACUUM CLEANER OPERATOR Pulse 119 06/21/2019 3:44 PM VACUUM CLEANER OPERATOR Temperature 36.2 C (97.1 F) 06/21/2019 3:44 PM VACUUM CLEANER OPERATOR Respiratory Rate 18 06/21/2019 3:44 PM VACUUM CLEANER OPERATOR Oxygen Saturation 99% 06/21/2019 3:44 PM VACUUM CLEANER OPERATOR Inhaled Oxygen Concentration - - Weight 80.3 kg (177 lb) 06/21/2019 4:57 PM VACUUM CLEANER OPERATOR Height 152.4 cm (5') 06/21/2019 4:57 PM VACUUM CLEANER OPERATOR Body Mass Index 34.57 06/21/2019 4:57 PM VACUUM CLEANER OPERATOR Plan of Treatment Health Maintenance Due Date Last Done Comments CERVICAL CANCER SCREENING 09/17/2015 INFLUENZA VACCINE 01/27/2020 Procedures Procedure Name Priority Date/Time Associated Comments Diagnosis US PELVIC TRANSVAGINAL STAT 06/21/2019 4:58 R esults for this PM VACUUM CLEANER OPERATOR procedure are i n the results section. US PELVIC STAT 06/21/2019 4:58 Results for this TRANSABDOMINAL PM VACUUM CLEANER OPERATOR procedure are in the results section. ESTIMATED GFR STAT 06/21/2019 4:07 Results fo r this PM VACUUM CLEANER OPERATOR procedure are i n the results section. COMPREHENSIVE METABOLIC STAT 06/21/2019 4:07 Results for this PANEL PM VACUUM CLEANER OPERATOR procedure are i n the results section. HC COMPLETE BLD COUNT STAT 06/21/2019 4:07 Re sults for this W/AUTO DIFF PM VACUUM CLEANER OPERATOR procedure are i n the results section. GRAM STAIN STAT 06/21/2019 3:59 Results for this PM VACUUM CLEANER OPERATOR procedure are i n the results section. URINE CULTURE STAT 06/21/2019 3:59 Results fo r this PM VACUUM CLEANER OPERATOR procedure are i n the results section. HCG QUALITATIVE, URINE STAT 06/21/2019 3:53 R esults for this SCREEN PM VACUUM CLEANER OPERATOR procedure are i n the results section. URINALYSIS STAT 06/21/2019 3:53 Results for this PM VACUUM CLEANER OPERATOR procedure are i n the results section. after 04/27/2019 Results US Pelvic Transabdominal (06/21/2019 4:58 PM VACUUM CLEANER OPERATOR) Specimen Narrative Performed At EXAMINATIONS: [facility] [...] was demonstrated within the pel ayanna cul-de-sac. [facility] [id number] Procedure Note Interface, Radiology Results Incoming - 06/21/2019 5:05 PM VACUUM CLEANER OPERATOR EXAMINATIONS: US PELVIC TRANSABDOMINAL US PELVIC [...] was demonstrated within the pel ayanna cul-de-sac. [facility] [id number] Performing Organization Address City/State/ZIP Code Phon e Number [facility] [address] [place] [address] US Pelvic Transvaginal (06/21/2019 4:58 PM VACUUM CLEANER OPERATOR) Specimen Narrative Performed At EXAMINATIONS: [facility] US PELVIC TRANSABDOMINAL US PELVIC TRANSVAGINAL CLINICAL [...] was demonstrated within the pel ayanna cul-de-sac. [facility] [id number] Procedure Note Interface, Radiology Results Incoming - 06/21/2019 5:05 PM VACUUM CLEANER OPERATOR EXAMINATIONS: US PELVIC TRANSABDOMINAL US PELVIC [...] was demonstrated within the pel ayanna cul-de-sac. [facility] [id number] Performing Organization Address City/State/ZIP Code Phon e Number [facility] [address] [place] [address] Estimated GFR (06/21/2019 4:07 PM VACUUM CLEANER OPERATOR) Estimated GFR >=90 mL/min/1.73 [facility] Comment: m2 [facility] Units Interpretation [facility] G1 [...] 2014. Specimen Plasma specimen Performing Organization Address City/[facility] Phon e Number DEPARTMENT OF PATHOLOGY AND [address] [place] [address] 7 [address]51 GENOMIC MEDICINE, [address] [address] EMERGENCY [facility] CBC with platelet and differential (06/21/2019 4:07 PM VACUUM CLEANER OPERATOR) Pathologist Sig nature WBC 9.58 4.50 - 11.00 k/uL [facility] RBC 4.75 4.20 - 5.50 m/uL [facility] HGB 14.3 12.0 - 16.0 g/dL [facility] EMERGENCY [facility] HCT 42.2 37.0 - 47.0 % [facility] MCV 88.8 82.0 - 100.[address] [facility] MCH 30.1 27.0 - 34.[address] [facility] MCHC 33.9 31.0 - 37.0 g/dL [facility] RDW - SD 44.0 37.0 - 55.[address] [facility] MPV 9.4 8.8 - 13.[address] [facility] Platelet count 463 (H) 150 - 400 k/uL [facility] Neutrophils 57.1 39.0 - 69.0 % [facility] Lymphocytes 33.4 25.0 - 45.0 % [facility] Monocytes 8.5 0.0 - 10.0 % [facility] Eosinophils 0.6 0.0 - 5.0 % [facility] Basophils 0.4 0.0 - 1.0 % [facility] Specimen Blood Performing Organization Address City/State/ZIP Code Phon e Number DEPARTMENT OF PATHOLOGY AND [address] [place] [address] 7 [address] GENOMIC MEDICINE, [address] [address] [facility] Comprehensive metabolic panel (06/21/2019 4:07 PM VACUUM CLEANER OPERATOR) Pathologist Sig nature Sodium 138 128 - 145 mEq/L [facility] Potassium 4.2 3.6 - 5.1 mEq/L [facility] CO2 25 18 - 33 mEq/L [facility] Chloride 106 98 - 108 mEq/L [facility] Glucose 96 73 - 118 mg/dL [facility] Calcium 9.1 8.0 - 10.3 mg/dL [facility] BUN 10 7 - 22 mg/dL [facility] Creatinine 0.7 0.5 - 0.9 mg/dL [facility] Alkaline phosphatase 63 42 - 141 U/L [facility] ALT 24 10 - 47 U/L [facility] AST 16 11 - 38 U/L [facility] Total bilirubin 0.6 0.2 - 1.6 mg/dL [facility] Albumin 4.6 3.3 - 5.5 g/dL [facility] Protein 7.7 6.4 - 8.1 g/dL [facility] Anion gap 7@ANIO 7 - 15 mEq/L [facility] A/G ratio 1.5 0.7 - 3.[address] [facility] Specimen Plasma specimen Performing Organization Address City/[facility] Phon e Number DEPARTMENT OF PATHOLOGY AND [address] [place], [place] [address] [facility] [address] [place] [address] EMERGENCY CARE CENTER Gram stain (06/21/2019 3:59 PM VACUUM CLEANER OPERATOR) Gram stain result No WBC's or organisms seen. DAVID GORDON Comment: HOSPITAL Specimen Information Specimen Source: Urine Specimen Site: Urine, clean catch Specimen Urine - Urine, clean catch Performing Organization Address City/[facility] Phon e Number [facility] DEPARTMENT OF PATHOLOGY AND [address], [place] [address] [address] Urine culture (06/21/2019 3:59 PM VACUUM CLEANER OPERATOR) Urine culture Mixed buddy 10-5 col/cc DAVID GONZALEZIS T isolate Comment: HOSPITAL Specimen Information Specimen Source: Urine Specimen Site: Urine, clean catch Specimen Urine - Urine, clean catch Performing Organization Address City/[facility] Phon e Number [facility] DEPARTMENT OF PATHOLOGY AND [address], [place] [address] [address] Urinalysis (06/21/2019 3:53 PM VACUUM CLEANER OPERATOR) Glucose, UA Negative Negative [facility] Bilirubin, UA Footnote Negative VELMA Comment: [place] Unable to report due to interference from color of uri [facility] Corrected result; previously reported as Positiv e@UBIL on 06/21/2019 at 16:13 EMERGENCY CARE by [facility] Ketones, UA Negative Negative [facility] Specific gravity, 1.015 1.001 - 1.035 [facility] Blood, UA Large (A) Negative [facility] pH, UA 8.5 5.0 - 8.[address] [facility] Protein, UA 3+ (A) Negative [facility] Urobilinogen, UA <2.0 <2.[address] [facility] Nitrite, UA Negative Negative [facility] Leukocyte Footnote Negative VELMA esterase, UA Comment: [place] Unable to report due to interference from color of uri ne. COLE Corrected result; previously reported as Trace o n 06/21/2019 at 16:13 by ME EMERGENCY [facility] Color, UA Red [facility] Appearance, UA Clear [facility] Specimen Urine Performing Organization Address City/[facility] Phon e Number DEPARTMENT OF PATHOLOGY AND [address] [place] [address] [place] [address] EMERGENCY CARE CENTER hCG qualitative, urine screen (06/21/2019 3:53 PM VACUUM CLEANER OPERATOR) hCG qualitative, Negative [facility] urine Comment: DOROTHY Sensitivity of HCG test: 25 mIU/mL [facility] Negative test results in patients suspected CENTER to be should be retested with a sample obtained 48-72 hours later, or by performing a quantitative assay. Specimen Urine Performing Organization Address City/[facility] Phon e Number DEPARTMENT OF PATHOLOGY AND [address] [place] [address] [place] [address] EMERGENCY CARE CENTER after 04/27/2019 Insurance Payer Benefit Plan / Subscriber ID Effective Dates Phone Addre ss Type Group MEDICAID MEDICAID [id number] 2016-Present Med [employer] [facility] [id number] 2016-Presen HMO CHOICE CHC/STAR JOBY t CIGNA CIGNA OPEN [id number] 2016-Present HMO ACCESS/NETWORK BCBS BCBS CHOICE [id number] 2019-Prese P PO PPO/FEDERAL nt EMPL PPO BCBS BCBS CHOICE [id number] 2019-Presen PPO PPO/FEDERAL t EMPL PPO Advance Directives For more information, please contact: [phone] Type Date Recorded Patient Network Technology Instructor Explanati on Advance Directives, Living Will and Medical Power of Brim Pouncing Machine Operator
--- OUTSIDE RECORDS SUMMARY | 2020-04-27 22:42 | XMS REPORT | Continuity of Care Document ---
:1995 Author Organization [facility] Address [address] [place] [address] Care Team Providers Name Role Phone Asked, Pcp Primary Care Physician Unavailable Casey Merchant MD Attending Clinician Payers Payer Name Policy Type Policy Effective Date Expiration Date Sour ce Number MEDICAIDMEDICAID [id number] 2016 [place] [id number] 00:00:00 Abhishek tee 6-PresentMedicai d [facility] [id number] 2016 [facility] 00:00:00 Islam CHC/STAR [id number]/-PresentHMO CIGNACIGNA OPEN [id number] 2016 [place] ACCESS/NETWORKxx 00:00:00 Abhishek tee [id number] 7-PresentHMO BCBSBCBS CHOICE [id number] 2019 [place] PPO/FEDERAL EMPL 00:00:00 Abhishek tee [id number] 10/2018-PresentPP O Problems This patient has no known problems. Allergies, Adverse Reactions, Alerts Allergy Allergy Status Severity Reaction(s) Onset Inactive Treating Comm ents Source Name Type Date Date Clinician Madeleine Ferminensi Active Palpitations 2018-06 [place] nol ty to 25 [facility] Tartrate adverse 00:00: st reaction 00 s to drug morphine DA [facility] [place] codeine DA Active IN [facility] [place] tramadol DA Active IN 2017-06 [facility] [place] Tramadol Propensi Active Other (See headache [place] ty to Comments) 9 [facility] adverse 00:00: st reaction 00 s to drug Acetamin Propensi Active Shortness Of [place] ophen-Co ty to Breath 03-11 [facility] deine adverse 00:00: st reaction 00 s to drug No Known DA Active U [facility] Allergie 3-14 [facility] [place] Family History Family Member Diagnosis Comments Start Date Stop Date Source Natural mother Diabetes [place] [facility] Natural mother Menstrual problems [place] Social History Social Habit Start Date Stop Date Quantity Comments Source Sex Assigned At [facility] ethodist Tobacco use and 2019-06-21 2019-06-21 Never used [facility] ethodist exposure 00:00:00 00:00:00 Alcohol intake 2019-06-21 2019-06-21 Current drinker [place] 00:00:00 00:00:00 of alcohol (finding) Alcohol Comment 2016-04-28 2016-04-28 social, weekly [place] 00:00:00 00:00:00 Smoking Status Start Date Stop Date Source Never smoker [place] Methodis t Medications Ordered Filled Start Stop Current Ordering [...] 2 [place] en-caff-pyr 2-25 tablets by [place] thodi ilamine 17:05: mouth. st 500-60-15 17 mg tablet acetaminoph 2019-1 2020- No 1000mg Q6H Take 2 [place] (TYLENOL 08-22 tablets Meth shamir EXTRA 00:00: 23:59 (1,000 [...] NEXPLANON 2015-06- No Rodrigues 68 mg 0-17 - Methodi implant 00:00: 00:00 st 00 :00 traZODone 2015-06- No Ravi (DESYREL) 0-17 -25 Methodi 50 MG 00:00: 00:00 st tablet [...] Delong Systolic blood 2019-06-21 15:44:00 123 mm[Hg] Sergto n Islam pressure Diastolic blood 2019-06-21 15:44:00 81 mm[Hg] Sergt on Islam pressure Heart rate 2019-06-21 15:44:00 119 /min Ravi Delong Body temperature 2019-06-21 15:44:00 36.17 [place] Serg ton Islam Respiratory rate 2019-06-21 15:44:00 18 /min Serg Delong Oxygen saturation in 2019-06-21 15:44:00 99 /min Ravi Delong Arterial blood by Pulse oximetry Procedures Procedure Date / Time Performing Clinician Source Performed US PELVIC TRANSABDOMINAL 2019-06-21 16:58:35 Lucas Merchant US PELVIC TRANSVAGINAL 2019-06-21 16:58:35 Lucas Merchant HC COMPLETE BLD COUNT 2019-06-21 16:07:00 Lucas Merchant W/AUTO DIFF COMPREHENSIVE METABOLIC 2019-06-21 16:07:00 Lucas Merchant PANEL ESTIMATED GFR 2019-06-21 16:07:00 Lucas Merchant Me thodist URINE CULTURE 2019-06-21 15:59:00 Lucas Merchant Me thodist GRAM STAIN 2019-06-21 15:59:00 Lucas Merchant Me thodist URINALYSIS 2019-06-21 15:53:00 Lucas Merchant Me thodist HCG QUALITATIVE, URINE 2019-06-21 15:53:00 Lucas Merchant SCREEN Plan of Care Planned Activity Planned Date Details Comments Source Future Scheduled 2020-01-27 INFLUENZA VACCINE Karla n Islam Test 00:00:00 [code = INFLUENZA VACCINE] Future Scheduled 2015-09-17 Screening for Ravi Me thodist Test 00:00:00 malignant neoplasm of cervix (procedure) [code = 837331594] Encounters Start End Encounter Admission Attending Care Care Encounter Source Date/Time Date/Time Type Type Clinicians Facility Department ID 2019-06-21 2019-06-21 Emergency RADU MERCHANT 064 [id number] 49 [place] 00:00:00 00:00:[address] [facility] [address] Results Test Description Test Time Test Comments Results Result Comments Source Urine culture 2019-06-23 10:07:15 Test Item Value Reference Range Interpretation Comme nts Urine culture isolate Mixed buddy 10-5 Sp ecimen InformationSpecimen (test code = 74748-0) col/cc Source : UrineSpecimen Site: Urine, clean catch [facility] MethodistGram [id number] 10:07:15 Test Item Value Reference Range Interpretation Comments Gram stain No WBC's or Specimen result (test organisms seen. InformationS pecimen code = 664-3) Source: UrineS pecimen Site: Urine, cl paramjit catch [place] [id number] 17:15:49 Test Item Value Reference Range Interpretation Comments Glucose, UA (test code = Negative Negative 02249-8) Bilirubin, UA (test code Footnote Negative Cora ble to report due = 5770-3) to interference from color of urine.Corrected result; previou sly reported as Positive@UBIL o n 06/21/2019 at 1 6:13 by [place] Ketones, UA (test code = Negative Negative 2514-8) Specific gravity, UA 1.015 1.001-1.035 (test code = 5811-5) Blood, UA (test code = Large Negative A 5794-3) pH, UA (test code = 8.5 5.0-8.5 5803-2) Protein, UA (test code = 3+ Negative A 27280-4) Urobilinogen, UA (test <2.0 <2.0 code = 56392-4) Nitrite, UA (test code = Negative Negative 5802-4) Leukocyte esterase, UA Footnote Negative Unabl e to report due (test code = 5799-2) to inte rference from color of urine.Corrected result; previou sly reported as Tra ce on 06/21/2019 at 1 6:13 by [place] Color, UA (test code = Red 5778-6) Appearance, UA (test Clear code = 5767-9) Lab Interpretation (test Abnormal code = 17078-3) [facility] MethodistComprehensive metabolic [id number] 17:09:01 Test Item Value Reference Range Interpretation Comments Sodium (test code = 2951-2) 138 128- 145 mEq/L Potassium (test code = 2823-3) 4.2 3.6- 5.1 mEq/L CO2 (test code = 2027-9) 25 18- 33 mEq/L Chloride (test code = 5-0) 106 98- 108 mEq/L Glucose (test code = 2345-7) 96 mg/dL 73-118 Calcium (test code = 67889-1) 9.1 mg/dL 8-10.3 BUN (test code = [...] g/dL 6.4-8.1 Anion gap (test code = 17667-4) 7@ANIO 7- 15 mEq/L A/G ratio (test code = 1759-0) 1.5 0.7-3.8 Ravi MethodistEstimated [id number] 17:09:01 Test Item Value Reference Range Interpretation Comments Estimated GFR (test >=90 mL/min/1.73 m2 [facility] Units code = 5488) InterpretationG 1 >=90 Normal or highG2 60-89 Mildly xfkpxzyfhW3z 45-59 Mildly to mode rately xfxpxvhkeH9l 30-44 Moderately to severely decreasedG4 15-29 Severely decre asedG5 <15 Kidn ey failureThe eGFR was calculated willem sanchez the Chronic Kidney Disease Epidemiology Co llaboration (CKD-EPI) equat ion. Interpretation is based on recommendations of the National Kidney Foundation-Kidn ey Disease Outcomes Qualit y Initiative (NKF-KDOQI) pub lished in 2013. Ravi MethodistUS Pelvic [id number] 17:02:27 Interface, Radiology Results - 06/21/2019 5:05 [...] fluid was demonstrated within the pelvic cul-de-sac. [facility]-[id number] [facility] Pelvic [id number] 17:02:27 Interface, Radiology Results Incoming - 06/21/2019 5:05 PM CSTEXAMINATIONS: US PELVIC [...] fluid was demonstrated within the pelvic cul-de-sac. [facility]-[id number] [facility] with platelet and [id number] 16:58:15 Test Item Value Reference Range Interpretation Comments WBC (test code = 98024-0) 9.58 4.50- 11.00 k/uL RBC (test code = 98626-7) 4.75 m/uL 4.2-5.5 HGB (test code = 718-7) 14.3 g/dL 12-16 HCT (test code = 4544-3) 42.2 % 37-47 MCV (test code = 787-2) 88.8 fL 82-100 MCH (test code = 785-6) 30.1 pg 27-34 MCHC (test code = 786-4) 33.9 g/dL 31-37 RDW - SD (test code = 01222-6) 44.0 fL 37-55 MPV (test code = 41105-6) 9.4 fL 8.8-13.2 Platelet count (test code = 463 150- 400 k/uL H 89936-4) Neutrophils (test code = 62832-0) 57.1 % 39-69 Lymphocytes (test code = 56433-7) 33.4 % 25-45 Monocytes (test code = 01982-7) 8.5 % 0-10 Eosinophils (test code = 67221-8) 0.6 % 0-5 Basophils (test code = 64591-9) 0.4 % 0-1 Lab Interpretation (test code = Abnormal 57798-5) Ravi DixonReplaced by [facility] qualitative, urine [id number] 16:13:05 Test Item Value Reference Range Interpretation Comments hCG qualitative, Negative Sensitivity of HCG test: urine (test code = 25 mIU/mL Negative test 6-3) results in linette ents suspected to be should be retes jd with a sample obtained 48-72 hours later, or by performing a qu antitative assay. [facility] W/AUTO [id number] 07:27:00 Test Item Value Reference Range Interpretation [...] NORMAL code = PLTMR) AG HEPATITIS B [id number] 04:15:00 Test Item Value Reference Range Interpretation Comments AG HEPATITIS B SURFACE (test code NONREACTIVE NONREACTIVE = HBSAG) AB HEPATITIS C [id number] 04:15:00 Test Item Value Reference Range Interpretation Comments AB HEPATITIS C (test code = NONREACTIVE NONREACTIVE HCVAB) SIGNAL TO CUTOFF (test code = 0.13 <0.80 N CUTOFF) RUBELLA [id number] 04:15:00 Test Item Value Reference Range Interpretation Comments RUBELLA SCREEN 70.2 IUnit/ml Results >10. 0IUnits/ml (test code = are considered positive RUBSC) inaccordance wi th the CLSI guidelines and based on the [employer] S tandard for Anti-Rubell a serum as anindicator of immune status and a br eakpoint to detect mostseropositiv e persons. AB [id number] 04:15:00 Test Item Value Reference Range Interpretation Comments AB TREPONEMA (test code = TREPAB) NONREACTIVE NONREACTIVE AG HEPATITIS B [id number] 04:00:00 Test Item Value Reference Range Interpretation Comments AG HEPATITIS B SURFACE (test code NONREACTIVE NONREACTIVE = HBSAG) AB HEPATITIS C [id number] 04:00:00 Test Item Value Reference Range Interpretation Comments AB HEPATITIS C (test code = HCVAB) NONREACTIVE SIGNAL TO CUTOFF (test code = CUTOFF) <0.80 RUBELLA [id number] 04:00:00 Test Item Value Reference Range Interpretation Comments RUBELLA SCREEN 70.2 IUnit/ml Results >10. 0IUnits/ml (test code = are considered positive RUBSC) inaccordance wi th the CLSI guidelines and based on the [employer] S tandard for Anti-Rubell a serum as anindicator of immune status and a br eakpoint to detect mostseropositiv e persons. AB [id number] 04:00:00 Test Item Value Reference Range Interpretation Comments AB TREPONEMA (test code = TREPAB) NONREACTIVE NONREACTIVE CBC W/AUTO [id number] 00:36:00 Test Item Value Reference Range Interpretation [...]
[2020-04-27 23:47] LABS: Absolute Lymphocytes (CBC) 3.5 K/uL (0.7-4.9); Basophils % 0.6 % (0-1.3); Hematocrit 38.1 % (36.0-45.0); Lymphocytes % 43.2 % (15.3-44.8); MPV 7.9 fL (7.6-11.3); RBC Red Blood Cell Count 4.31 M/uL (3.86-4.86)
[2020-04-27 23:51] LABS: Protime INR 0.97
[2020-04-28 00:15] LABS: ALT/SGPT 21 U/L (12-78); AST/SGOT 7 U/L (15-37); Albumin 3.8 g/dL (3.4-5.0); Alkaline Phosphatase 62 U/L (45-117); BUN Blood Urea Nitrogen 9 mg/dL (7-18); Bicarbonate 25 mmol/L (21-32); Bilirubin Direct 0.1 mg/dL (0-0.2); Bilirubin Total 0.3 mg/dL (0.2-1.0); Glucose Level 94 mg/dL (74-106); Potassium 3.4 mmol/L (3.5-5.1); Protein, Total 7.4 g/dL (6.4-8.2); Sodium Level 141 mmol/L (136-145)
[2020-04-28 00:25] LABS: Blood Morphology Comment NOT SEEN (NOT SEEN); Platelet Estimate ADEQ
[2020-04-28] MEDS ORDERED: NA CHLORIDE 0.9% 1,000 ML ONE (01:07)
[2020-04-28] MEDS ORDERED: ACETAMINOPHEN 500 MG TAB ONE (03:48)
[2020-04-28 04:55] LABS: Urine Blood 3+ (NEG); Urine Glucose NEGATIVE (NEG); Urine Protein 1+ (NEG); Urine Specific Gravity >1.030 (1.005-1.030); Urine pH 5.5 (5.0-7.0)
[2020-04-28 04:55] LABS: Barbiturates NEGATIVE (NEGATIVE); Benzodiazepines POSITIVE (NEGATIVE); Cocaine NEGATIVE (NEGATIVE); METHAMPHETAM NEGATIVE (NEGATIVE); Methadone NEGATIVE (NEGATIVE); Opiates NEGATIVE (NEGATIVE); Phencyclidine NEGATIVE (NEGATIVE); THC Cannibis NEGATIVE (NEGATIVE)
--- NOTE | 2020-04-28 05:38 | EDPHYS ---
Physician Documentation [facility] Name: Carla Duncan Age: 24 yrs Sex: Female : 1995 Arrival Date: 04/27/2020 Time: 22:43 Bed 18 Private MD: ED Physician Raimundo Pollack HPI: 04/27 23:47 This 24 yrs old Female presents to ER via EMS with complaints of Anxiety.. mh7 23:47 The patient presents to the emergency department with anxiety, After taking medication. mh7 Onset: The symptoms/episode began/occurred today. Past psychiatric history: Prior diagnosis: bipolar disorder, Anxiety. Associated signs and symptoms: Pertinent positives; anxiety, shortness of breath, Pertinent negatives: abdominal pain, chest pain, chills, delusions, depression, fever, hallucinations, headache, homicidal ideation, nausea, night sweats, palpitations, paranoia, substance abuse, suicide ideation, tremor, vomiting. Severity of symptoms: At their worst the symptoms were moderate today, in the emergency department the symptoms have improved moderately. Patient states that her doctor increased her Seroquel from 50 mg daily to 300 mg. She took the increased dose tonight for the first time then started feeling anxious, SOB. She denies any suicidal or homicidal ideation. She denies any auditory or visual hallucination. Denies fever, chest pain, abdominal pain, nausea, vomiting, dizziness, numbness/tingling, or weakness.. Historical: - Allergies: 22:47 Stadol; jd3 22:47 tramadol; jd3 22:47 Toradol; jd3 - Home Meds: 22:47 proair [Active]; Seroquel Oral [Active]; jd3 - PMHx: 22:47 Anxiety; Asthma; Bipolar disorder; Depression; Ovarian cyst; jd3 - PSHx: 22:47 ; jd3 - Immunization history:: Adult Immunizations up to date. - Social history:: Smoking status: unknown. ROS: 23:47 Constitutional: Negative for fever, chills, and weight loss, Eyes: Negative for injury, mh7 pain, redness, and discharge, ENT: Negative for injury, pain, and discharge, Neck: Negative for injury, pain, and swelling, Cardiovascular: Negative for chest pain, palpitations, and edema, Abdomen/GI: Negative for abdominal pain, nausea, vomiting, diarrhea, and constipation, Back: Negative for injury and pain, : Negative for injury, bleeding, discharge, and swelling, MS/Extremity: Negative for injury and deformity, Skin: Negative for injury, rash, and discoloration, Neuro: Negative for headache, weakness, numbness, tingling, and seizure, Allergy/Immunology: Negative for hives, rash, and allergies, Endocrine: Negative for neck swelling, polydipsia, polyuria, polyphagia, and marked weight changes, Hematologic/Lymphatic: Negative for swollen nodes, abnormal bleeding, and unusual bruising. Exam: 23:47 Head/Face: Normocephalic, atraumatic. Eyes: Pupils equal round and reactive to light, mh7 extra-ocular motions intact. Lids and lashes normal. Conjunctiva and sclera are non-icteric and not injected. Cornea within normal limits. Periorbital areas with no swelling, redness, or edema. ENT: Nares patent. No nasal discharge, no septal abnormalities noted. Tympanic membranes are normal and external auditory canals are clear. Oropharynx with no redness, swelling, or masses, exudates, or evidence of obstruction, uvula midline. Mucous membranes moist. Neck: Trachea midline, no thyromegaly or masses palpated, and no cervical lymphadenopathy. Supple, full range of motion without nuchal rigidity, or vertebral point tenderness. No Meningismus. Chest/axilla: Normal chest wall appearance and motion. Nontender with no deformity. No lesions are appreciated. Cardiovascular: Regular rate and rhythm with a normal S1 and S2. No gallops, murmurs, or rubs. Normal PMI, no JVD. No pulse deficits. Respiratory: Lungs have equal breath sounds bilaterally, clear to auscultation and percussion. No rales, rhonchi or wheezes noted. No increased work of breathing, no retractions or nasal flaring. Abdomen/GI: Soft, non-tender, with normal bowel sounds. No distension or tympany. No guarding or rebound. No evidence of tenderness throughout. Back: No spinal tenderness. No costovertebral tenderness. Full range of motion. Skin: Warm, dry with normal turgor. Normal color with no rashes, no lesions, and no evidence of cellulitis. MS/ Extremity: Pulses equal, no cyanosis. Neurovascular intact. Full, normal range of motion. Neuro: Awake and alert, GCS 15, oriented to person, place, time, and situation. Cranial nerves II-XII grossly intact. Motor strength 5/5 in all extremities. Sensory grossly intact. Cerebellar exam normal. Normal gait. 23:47 Constitutional: The patient appears in no acute distress, alert, awake, anxious. 23:47 Psych: Behavior/mood is pleasant, cooperative, anxious, Affect is calm, Oriented to person, place, time, Patient has no thoughts/intents to harm self or others. Judgement / Insight is normal. Memory is normal. Delusions/hallucinations are not present. Vital Signs: 22:47 BP 119 / 75; Pulse 112; Resp 20 S; Temp 97.0(TE); Pulse Ox 100% on R/A; Weight 90.72 kg jd3 (R); Height 5 ft. 0 in. (152.40 cm) (R); Pain 0/10; 04/28 00:40 BP 104 / 61; Pulse 95; Resp 18; Pulse Ox 100% on R/A; mg2 01:35 Pulse 96; Resp 18; Pulse Ox 96% on R/A; mg2 01:35 mg2 02:07 BP 106 / 59; mg2 05:25 BP 110 / 66; Pulse 97; Resp 16; Temp 97.2; Pulse Ox 100% on R/A; sg 04/27 22:47 Body Mass Index 39.06 (90.72 kg, 152.40 cm) jd3 01:35 patient sleeping mg2 MDM: 04/27 23:02 Patient medically screened. mh7 04/28 05:34 Differential diagnosis: drug withdrawal. Medication Overdose, Adverse Medication mh7 Reaction. Data reviewed: vital signs, nurses notes, EMS record, lab test result(s), CBC, electrolytes, urinalysis, urine drug screen, EKG, radiologic studies. Data interpreted: Pulse oximetry: on room air is 100 %. Interpretation: normal. Counseling: I had a detailed discussion with the patient and/or guardian regarding: the historical points, exam findings, and any diagnostic results supporting the discharge/admit diagnosis, lab results, radiology results, the need for outpatient follow up, to return to the emergency department if symptoms worsen or persist or if there are any questions or concerns that arise at home. Response to treatment: the patient's symptoms have resolved after treatment, the patient's blood pressure is in an acceptable range, mental status has returned to baseline, the patient no longer shows bradycardia, the patient is not short of breath, the patient is not tachycardic, the patient's pain is gone, the patient's temperature has normalized. 04/27 23:02 Order name: Acetaminophen; Complete Time: 01:30 [facility] 04/27 23:02 Order name: Basic Metabolic Panel; Complete Time: : [facility] 04/27 23:02 Order name: CBC with Diff; Complete Time: [facility] 04/27 23:02 Order name: ETOH Level; Complete Time: : [facility] 04/27 23:02 Order name: Hepatic Function; Complete Time: [facility] 04/27 23:02 Order name: PT-INR; Complete Time: [facility] 04/27 23:02 Order name: Ptt, Activated; Complete Time: : [facility] 04/27 23:02 Order name: Salicylate; Complete Time: [facility] 04/27 23:02 Order name: Urine Drug Screen; Complete Time: 05:05 [facility] 04/27 23:28 Order name: Chest Single View XRAY [facility] 04/27 23:49 Order name: Manual Differential; Complete Time: 01:30 [facility] 04/28 04:21 Order name: Urine Dipstick--Ancillary (enter results); Complete Time: 05:05 [facility] 04/28 04:21 Order name: Urine --Ancillary (enter results); Complete Time: 05:05 [facility] 04/27 23:02 Order name: EKG; Complete Time: 23:03 [facility] 04/27 23:02 Order name: EKG - Nurse/Tech; Complete Time: 23:33 [facility] 04/27 23:02 Order name: IV Saline Lock; Complete Time: 23:33 [facility] 04/27 23:02 Order name: Labs collected and sent; Complete Time: 23:33 [facility] 04/27 23:02 Order name: Urine Dipstick-Ancillary (obtain specimen); Complete Time: 04:18 [facility] 04/27 23:03 Order name: Urine Test (obtain specimen); Complete Time: 04:18 7 Administered Medications: 00:59 Drug: NS 0.9% 1000 ml Route: IV; Rate: bolus; Site: right upper arm; mg2 01:55 Follow up: Response: No adverse reaction; IV Status: Completed infusion; IV Intake: sg 1000ml 02:12 Follow up: Response: No adverse reaction; IV Status: Completed infusion; IV Intake: mg2 1000ml 03:37 Drug: Tylenol 1000 mg Route: PO; rr5 04:00 Follow up: Response: No adverse reaction sg Disposition: 04/28/20 05:37 Discharged to Home. Impression: Medication Adverse Effect. - Condition is Stable. - Discharge Instructions: Bipolar Disorder, Generalized Anxiety Disorder. - Medication Reconciliation Form, Thank You Letter, Antibiotic Education, Prescription Opioid Use form. - Follow up: Private Physician; When: 1 - 2 days; Reason: Worsening of condition, Recheck today's complaints, Continuance of care, Re-evaluation by your physician. - Problem is new. - Symptoms have improved. Signatures: Dispatcher [employer] EDMS Mark Muller RN RN sg Franky Bright RN RN jd3 Austen Perez RN RN mg2 Arnold Hernandez RN RN rr5 Raimundo Pollack MD MD mh7 Corrections: (The following items were deleted from the chart) 05:56 05:37 04/28/2020 05:37 Discharged to Home. Impression: Medication Adverse Effect. sg Condition is Stable. Forms are Medication Reconciliation Form, Thank You Letter, Antibiotic Education, Prescription Opioid Use. Follow up: Private Physician; When: 1 - 2 days; Reason: Worsening of condition, Recheck today's complaints, Continuance of care, Re-evaluation by your physician. Problem is new. Symptoms have improved. mh7
--- NOTE | 2020-04-28 05:38 | ER ---
Nurse's Notes [facility] Name: Carla Duncan Age: 24 yrs Sex: Female : 1995 Arrival Date: 04/27/2020 Time: 22:43 Bed 18 Private MD: Diagnosis: Medication Adverse Effect Presentation: 04/27 22:43 Chief complaint: EMS states: "The pt is prescribed Seroquel by her doctor with a dose jd3 of 50 mg. just recently her doc has raised her does to 300 mg and tonight was the first time she has taken that dose. she is now feeling shaky, with a lot of anxiety, and reports it is difficult to swallow. she denies difficulty breathing.". Coronavirus screen: At this time, the client does not indicate any symptoms associated with coronavirus-19. Ebola Screen: Patient negative for fever greater than or equal to 101.5 degrees Fahrenheit, and additional compatible Ebola Virus Disease symptoms. Initial Sepsis Screen: Does the patient meet any 2 criteria? No. Patient's initial sepsis screen is negative. Does the patient have a suspected source of infection? No. Patient's initial sepsis screen is negative. Risk Assessment: Do you want to hurt yourself or someone else? Patient reports no desire to harm self or others. Onset of symptoms was April 27, 2020. 22:43 Method Of Arrival: EMS: [facility] jd3 22:43 Acuity: VENKATESH 3 jd3 Historical: - Allergies: 22:47 Stadol; jd3 22:47 tramadol; jd3 22:47 Toradol; jd3 - Home Meds: 22:47 proair [Active]; Seroquel Oral [Active]; jd3 - PMHx: 22:47 Anxiety; Asthma; Bipolar disorder; Depression; Ovarian cyst; jd3 - PSHx: 22:47 ; jd3 - Immunization history:: Adult Immunizations up to date. - Social history:: Smoking status: unknown. Screenin:38 Abuse screen: Denies threats or abuse. Denies injuries from another. Nutritional mg2 screening: No deficits noted. Tuberculosis screening: No symptoms or risk factors identified. Fall Risk IV access (20 points). Assessment: 23:38 General: Appears in no apparent distress. comfortable, Behavior is calm, cooperative. mg2 Pain: Denies pain. Neuro: Level of Consciousness is awake, alert, obeys commands, Oriented to person, place, time, situation. Cardiovascular: Capillary refill < 3 seconds Patient's skin is warm and dry. Respiratory: Airway is patent Respiratory effort is even, unlabored, Respiratory pattern is regular, symmetrical. : No signs and/or symptoms were reported regarding the genitourinary system. EENT: No signs and/or symptoms were reported regarding the EENT system. Derm: Skin is intact, is healthy with good turgor, Skin is pink, warm \\T\\ dry. normal. Musculoskeletal: Circulation, motion, and sensation intact. Capillary refill < 3 seconds. 04/28 00:51 Reassessment: Patient appears in no apparent distress at this time. patient walked to [facility] the bathroom. she looks sleepy. poison control contacted and advised to do EKG and give iv fluids, . 02:12 Reassessment: Patient appears in no apparent distress at this time. Patient states [facility] feeling better. 03:30 Reassessment: Patient appears in no apparent distress at this time. Patient and/or sg family updated on plan of care and expected duration. Pain level reassessed. pt reports feeling sleepy. 05:39 Reassessment: Patient appears in no apparent distress at this time. Patient and/or sg family updated on plan of care and expected duration. Pain level reassessed. Patient is alert, oriented x 3, equal unlabored respirations, skin warm/dry/pink. awaiting pt boyfriend to arrive for transport back to pt home at this time Patient states feeling better. Vital Signs: 04/27 22:47 BP 119 / 75; Pulse 112; Resp 20 S; Temp 97.0(TE); Pulse Ox 100% on R/A; Weight 90.72 kg jd3 (R); Height 5 ft. 0 in. (152.40 cm) (R); Pain 0/10; 04/28 00:40 BP 104 / 61; Pulse 95; Resp 18; Pulse Ox 100% on R/A; mg2 01:35 Pulse 96; Resp 18; Pulse Ox 96% on R/A; mg2 01:35 mg2 02:07 BP 106 / 59; mg2 05:25 BP 110 / 66; Pulse 97; Resp 16; Temp 97.2; Pulse Ox 100% on R/A; sg 04/27 22:47 Body Mass Index 39.06 (90.72 kg, 152.40 cm) jd3 01:35 patient sleeping mg2 ED Course: 04/27 22:43 Patient arrived in ED. jd3 22:43 Raimundo Pollack MD is Attending Physician. 7 22:46 Triage completed. jd3 22:51 Arm band placed on. jd3 23:31 Austen Perez, RN is Primary Nurse. mg2 23:37 No provider procedures requiring assistance completed. Inserted saline lock: 20 gauge mg2 in right antecubital area, using aseptic technique. Blood collected. by ELFEGO Murillo tech. 23:38 Inserted saline lock: 20 gauge in right antecubital area, using aseptic technique. 4 Blood collected. 23:49 Chest Single View XRAY In Process Unspecified. EDMS 11 00:41 Patient has correct armband on for positive identification. mg2 03:00 Report given to ALEJANDRO Flores. mg2 Administered Medications: 00:59 Drug: NS 0.9% 1000 ml Route: IV; Rate: bolus; Site: right upper arm; mg2 01:55 Follow up: Response: No adverse reaction; IV Status: Completed infusion; IV Intake: sg 1000ml 02:12 Follow up: Response: No adverse reaction; IV Status: Completed infusion; IV Intake: mg2 1000ml 03:37 Drug: Tylenol 1000 mg Route: PO; rr5 04:00 Follow up: Response: No adverse reaction sg Intake: 01:55 IV: 1000ml; Total: 1000ml. sg 02:12 IV: 1000ml; Total: 2000ml. mg2 Outcome: 05:37 Discharge ordered by . [facility] 05:56 Patient left the ED. sg Signatures: Dispatcher [employer] EDPR Mark Muller RN RN sg Franky Bright RN RN jd3 Austen Perez, JUDI LAU mg2 Arnold Hernandez RN RN 5 Chidi Munroe formerly [facility], [facility] Raimundo Pollack MD MD [place] Corrections: (The following items were deleted from the chart) 00:59 00:51 Reassessment: Patient appears in no apparent distress at this time. patient mg2 walked to the bathroom. she looks sleepy. poison control contacted and advised to do EKG and give iv fluids, mg2
[2020-04-28 06:15] VITALS: O2SAT 100
[2020-04-28 06:26] VITALS: BP 110/66; TEMP 97.2
--- NOTE | 2020-04-28 07:43 | RAD REPORT ---
EXAM DESCRIPTION: RAD - Chest Single View - 04/27/2020 11:48 pm CLINICAL HISTORY: SOB COMPARISON: December 2019 TECHNIQUE: AP portable chest image was obtained 04/27/2020 11:48 pm . FINDINGS: Lung volumes are low. No focal lung parenchymal process. No measurable failure or volume o verload. By habitus increases lung parenchymal density. Heart and vasculature are normal. No measurab le pleural effusion and no pneumothorax. No acute bony abnormality seen. No acute aortic findings ran pected. IMPRESSION: Shallow inspiration film without acute cardiopulmonary finding.
--- NOTE | 2020-04-28 10:10 | EKG ---
Test Date: 2020-04-27 Test Time: 22:46:46 Fisher Mussel: ELLIS MEASUREMENT RESULTS: Intervals: Rate: 101 ND: 156 QRSD: 80 QT: 370 QTc: 479 [place]: P: 108 ND: 156 QRS: 110 T: 155 INTERPRETIVE STATEMENTS: Suspect arm lead reversal, interpretation assumes no reversal Sinus tachycardia Right axis deviation Cannot rule out Inferior infarct, age undetermined Cannot rule out Anterior infarct, age undetermined Abnormal ECG Compared to ECG 01/09/2020 23:23:15 Right-axis deviation now present Myocardial infarct finding now present Sinus rhythm no longer present Electronically Signed On 04-28-20 10:09:58 [employer]INTENA[employer]CE [employer]FT[employer] by Jatin Sandhu
== END 2020-04-28 05:56 | disposition home or self-care (01) ==
LOC: ER 22:38
DX: F41.9 Anxiety disorder, unspecified (principal); T43.595A Adverse effect of other antipsychotics and neuroleptics, initial encounter; F31.9 Bipolar disorder, unspecified; J45.909 Unspecified asthma, uncomplicated; Z88.5 Allergy status to narcotic agent
CPT/HCPCS: 96361; 93005 ×3; 85025; 80048; 36415; 80320; 80329 ×2; 81025; 85610; 80076; 80307 ×8; 85730; 81003; 71045; 96360; 99284; J7030

== ENCOUNTER 2020-07-01 23:17 | Emergency (ER) | payer BC ==
--- OUTSIDE RECORDS SUMMARY | 2020-07-01 23:19 | XMS REPORT | Continuity of Care Document ---
:1995 Author Organization [facility] t Address [address] [place] [address] Care Team Providers Name Role Phone Asked, Pcp Primary Care Physician Unavailable SANAE Attending Clinician Unavailable Payers Payer Name Policy Type Policy Number Effective Date Expiration Date S ource Problems This patient has no known problems. Allergies, Adverse Reactions, Alerts Allergy Allergy Status Severity Reaction(s) Onset Inactive Treating Comm ents Source Name Type Date Date Clinician Butorpha Propensi Active Palpitations 2018-06 [place] nol ty to 08-22 [facility] Tartrate adverse 00:00: st reaction 00 s to drug morphine DA Active [facility] [place] codeine DA Active [facility] 07[facility]16 [facility] [place] tramadol DA Active [facility] 2017-06 [facility] [place] Tramadol Propensi Active Other (See headache [place] ty to Comments) 03-11 [facility] adverse 00:00: st reaction 00 s to drug Acetamin Propensi Active Shortness Of [place] ophen-Co ty to Breath 03-11 [facility] deine adverse 00:00: st reaction 00 s to drug No Known DA Active [facility]ie 3-14 [facility] [place] Family History Family Member Diagnosis Comments Start Date Stop Date Source Natural mother Diabetes [facility] thodist Natural mother Menstrual problems [place] Social History Social Habit Start Date Stop Date Quantity Comments Source Sex Assigned At [facility] ethodist Tobacco use and 2019-06-21 2019-06-21 Never used [facility] exposure 00:00:00 00:00:00 Alcohol intake 2019-06-21 2019-06-21 Current drinker [place] [facility] [place] 00:00:00 00:00:00 of alcohol (finding) Alcohol Comment 2016-04-28 2016-04-28 social, weekly [place] [facility] 00:00:00 00:00:00 Smoking Status Start Date Stop Date Source Never smoker [place] Zackis t Medications Ordered Filled Start Stop Current [...] 2 [place] en-caff-pyr 2-25 tablets by Me thodi ilamine 17:05: mouth. st 500-60-15 17 mg tablet acetaminoph 2018-06 2020- No 1000mg Q6H Take 2 [place] (TYLENOL 2-25 -24 tablets Meth shamir EXTRA 00:00: 23:59 (1,[address] STRENGTH) 00 :00 total) by 500 MG mouth tablet every 6 (six) hours as needed for moderate pain for up to 30 days. ondansetron 2018-06- No 8mg Q8H Take 1 Sophia ston ODT (ZOFRAN 2-25 -24 tablet (8 Me thodi ODT) 8 MG 00:00: 23:59 mg total) st disintegrat 00 :00 by mouth ing tablet every 8 (eight) hours as needed for nausea or vomiting for up to 30 days. dicyclomine 2018-06- No 20mg Q.5D Take 1 Sophia ston (BENTYL) 20 2-25 01-24 tablet (20 M ethodi mg tablet 00:00: 23:59 mg total) st 00 :00 by mouth 2 (two) times a day for 30 days. Procedures This patient has no known procedures. Plan of Care Planned Activity Planned Date Details Comments Source Future Scheduled 2020-01-27 INFLUENZA VACCINE [place] [facility] 00:00:00 [code = INFLUENZA VACCINE] Future Scheduled 2015-09-17 Screening for [facility] thodist Test 00:00:00 malignant neoplasm of cervix (procedure) [code = 689043906] Future Scheduled 2010 COVID-19 VACCINE [facility] 00:00:00 (#1) [code = COVID-19 VACCINE (#1)] Encounters Start End Encounter Admission Attending Care Care Encounter Source Date/Time Date/Time Type Type Clinicians Facility Department ID 2019-06-21 2019-06-21 Emergency [facility] [id number] 49 [place] 00:00:00 00:00:[address] [facility] [address] Results Test Description Test Time Test Comments Results Result Comments Source CBC W/AUTO DIFF 2018-07-17 07:27:00 Test Item Value Reference Range Interpretation Comme nts WHITE BLOOD CELL (test code = WBC) [...] 27-35 N MEAN CELL HGB CONCETRATION (test code = MCHC) 31.4 gm/dL 32.2-34. 1 L RED CELL DISTRIBUTION WIDTH (test code = RDW) 15.7 % 12.4-16. 5 N PLATELET COUNT (test code = PLT) 261 K/mm3 133-385 N IMMATURE PLATELET FRACTION (test code = IPF) 0.0 % 0.0-10.8 N MEAN PLATELET VOLUME (test code = MPV) 10.4 fl 9.1-12.7 N NEUTROPHIL % (test code = NT%) 65.2 [...] MORPHOLOGY REQUIRED (test code = RBCM) NORMAL NORMAL PLATELET MORPHOLOGY REQUIRED (test code = PLTMR) NORMAL BO L AG HEPATITIS B [id number] 04:15:00 Test Item Value Reference Range Interpretation Comments AG HEPATITIS B SURFACE (test code NONREACTIVE NONREACTIVE = HBSAG) AB HEPATITIS C [id number] 04:15:00 Test Item Value Reference Range Interpretation Comments AB HEPATITIS C (test code = NONREACTIVE NONREACTIVE HCVAB) SIGNAL TO CUTOFF (test code = 0.13 <0.80 N CUTOFF) RUBELLA [id number] 04:15:00 Test Item Value Reference Range Interpretation Comments RUBELLA SCREEN 70.2 IUnit/ml Results >10. 0IUnits/ml (test code = are considered positive RUBSC) inaccordance wi th the CLSI guidelines and based on the [employer] S tandard for Anti-Rubell a serum as anindicator of immune status and a br eakpoint to detect mostseropositiv e persons. AB [id number] 04:15:00 Test Item Value Reference Range Interpretation Comments AB TREPONEMA (test code = TREPAB) NONREACTIVE NONREACTIVE AG HEPATITIS B [id number] 04:00:00 Test Item Value Reference Range Interpretation Comments AG HEPATITIS B SURFACE (test code NONREACTIVE NONREACTIVE = HBSAG) AB HEPATITIS C [id number] 04:00:00 Test Item Value Reference Range Interpretation Comments AB HEPATITIS C (test code = HCVAB) NONREACTIVE SIGNAL TO CUTOFF (test code = CUTOFF) <0.80 RUBELLA [id number] 04:00:00 Test Item Value Reference Range Interpretation Comments RUBELLA SCREEN 70.2 IUnit/ml Results >10. 0IUnits/ml (test code = are considered positive RUBSC) inaccordance wi th the CLSI guidelines and based on the [employer] S tandard for Anti-Rubell a serum as anindicator of immune status and a br eakpoint to detect mostseropositiv e persons. AB [id number] 04:00:00 Test Item Value Reference Range Interpretation Comments AB TREPONEMA (test code = TREPAB) NONREACTIVE NONREACTIVE CBC W/AUTO [id number] 00:36:00 Test Item Value Reference Range Interpretation [...]
--- OUTSIDE RECORDS SUMMARY | 2020-07-01 23:19 | XMS REPORT | Clinical Summary ---
:1995 Author Organization [facility] Address [address] [place] [address] Care Team Providers Name Role Phone Asked, No Pcp Primary Care Provider Unavailable Allergies Active Allergy Reactions Severity Noted Date Comments Butorphanol Tartrate Palpitations Low 06/21/2019 Tramadol Other (See Comments) 03/11/2016 headach e Acetaminophen-Codeine Shortness Of Breath High 03/11/2016 Medications Medication Sig Dispensed Refills Start Date End Date Status ibuprofen (ADVIL) 200 Take 800 mg by 0 Active MG tablet mouth every 6 (six) hours as needed for mild pain. amrfykvdcymvg-wbdr-jai Take 2 tablets 0 Active ilamine 500-60-15 mg by mouth. tablet acetaminophen (TYLENOL Take 2 tablets 30 tablet 0 06/21/2019 0 07/21/2019 EXTRA STRENGTH) 500 MG (1,000 mg tablet total) by mouth every 6 (six) hours as needed for moderate pain for up to 30 days. ondansetron ODT Take 1 tablet 9 tablet 0 06/21/2019 0 (ZOFRAN ODT) 8 MG (8 mg total) by disintegrating tablet mouth every 8 (eight) hours as needed for nausea or vomiting for up to 30 days. dicyclomine (BENTYL) Take 1 tablet 60 tablet 0 06/21/201906/29 20 mg tablet (20 mg total) by mouth 2 (two) times a day for 30 days. Active Problems No known active problems Surgical History Surgery Date Site/Laterality Comments SECTION [...] Not on file Last Filed Vital Signs Not on file Plan of Treatment Health Maintenance Due Date Last Done Comments COVID-19 VACCINE (#1) 2010 CERVICAL CANCER SCREENING 09/17/2015 INFLUENZA VACCINE 01/27/2020 Results Not on fileafter 07/01/2019 Insurance Payer Benefit Plan / Subscriber ID Effective Dates Phone Addre ss Type Group MEDICAID MEDICAID [id number] 2016-Present Med icaid [employer] COM HLTH [id number] 2016-Presen HMO CHOICE CHC/STAR JOBY t CIGNA CIGNA OPEN [id number] 2016-Present HMO ACCESS/NETWORK BCBS BCBS CHOICE [id number] 2019-Prese P PO PPO/FEDERAL nt EMPL PPO BCBS BCBS CHOICE [id number] 2019-Presen PPO PPO/FEDERAL t EMPL PPO Advance Directives For more information, please contact: [phone] Type Date Recorded 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
[2020-07-02] MEDS ORDERED: NA CHLORIDE 0.9% 1,000 ML ONE (00:02)
[2020-07-02 01:25] LABS: SARS-COV-2 RT PCR NEGATIVE (NEGATIVE)
[2020-07-02] MEDS ORDERED: ACETAMINOPHEN 325 MG TABLET ONE (01:33)
--- NOTE | 2020-07-02 01:37 | EDPHYS ---
Physician Documentation [facility] Name: Carla Duncan Age: 24 yrs Sex: Female : 1995 Arrival Date: 07/01/2020 Time: 23:21 Bed 14 Private MD: ED Physician Hal Watters HPI: 07/01 23:39 This 24 yrs old Female presents to ER via Ambulatory with complaints of Fever, rn BODY ACHE. 23:39 The patient reports fever, that was measured at 102 degrees Fahrenheit. Onset: The rn symptoms/episode began/occurred 3 day(s) ago. Modifying factors: there are no obvious modifying factors. Associated signs and symptoms: Pertinent positives: chills, decreased appetite, diarrhea, headache, myalgias, runny nose, vomiting. Severity of symptoms: At their worst the symptoms were mild in the emergency department the symptoms are unchanged. The patient has experienced similar episodes in the past. The patient has been recently seen by a physician:. Reports began 3 days ago with nausea/vomiting/diarrhea/headache/malaise/muscle aches/fatigue. Seen that day at [place], told neg rapid COVID and flu. Fever today, so came here. Reports diarrhea improved. Now constipated. . Historical: - Allergies: 23:40 Stadol; ea 23:40 Toradol; ea 23:40 tramadol; ea - Home Meds: 23:40 xanax PRN [Active]; Seroquel Oral [Active]; Prozac Oral [Active]; proair [Active]; ea - PMHx: 23:40 Ovarian cyst; Depression; Bipolar disorder; Asthma; Anxiety; ea - PSHx: 23:40 ; ea - Immunization history:: Adult Immunizations up to date. - Social history:: Smoking status: Patient denies any tobacco usage or history of. - Family history:: not pertinent. - Hospitalizations: : No recent hospitalization is reported. ROS: 23:39 Constitutional: + fever and chills Eyes: Negative for injury, pain, redness, and immigration attorney, ENT: + congestion Neck: Negative for injury, pain, and swelling, Cardiovascular: Negative for chest pain, palpitations, and edema, Respiratory: Negative for shortness of breath, wheezing, and pleuritic chest pain, Abdomen/GI: Negative for abdominal pain MS/Extremity: Negative for injury and deformity, Skin: Negative for injury, rash, and discoloration, Neuro: Negative for numbness, tingling, and seizure. Exam: 23:39 Constitutional: This is a well developed, well nourished patient who is awake, alert, rn and in no acute distress. Head/Face: Normocephalic, atraumatic. Eyes: Pupils equal round and reactive to light, extra-ocular motions intact. Lids and lashes normal. Conjunctiva and sclera are non-icteric and not injected. Cornea within normal limits. Periorbital areas with no swelling, redness, or edema. Cardiovascular: Tachycardic, regular. No pulse deficits. Respiratory: Mild tachypnea, no retractions. Abdomen/GI: Soft, non-tender Skin: Warm, dry MS/ Extremity: Pulses equal, no cyanosis. Neuro: Awake and alert, GCS 15 Vital Signs: 23:30 BP 133 / 84; Pulse 107; Resp 18; Temp 98.6(O); Pulse Ox 99% on R/A; ea 23:37 BP 133 / 88; Pulse 118; Resp 20; Pulse Ox 98% ; Weight 90.72 kg; Height 5 ft. (152.40 ea cm); 07/02 00:30 BP 140 / 95; Pulse 111; Resp 16; Pulse Ox 100% on R/A; ll2 01:20 BP 124 / 90; Pulse 108; Resp 18; Pulse Ox 98% on R/A; ea 07/01 23:37 Body Mass Index 39.06 (90.72 kg, 152.40 cm) ea MDM: 07/01 23:29 Patient medically screened. rn 07/02 01:31 Differential diagnosis: viral Infection, URI, gastroenteritis. Data reviewed: vital rn signs, nurses notes, lab test result(s), radiologic studies, plain films, and as a result, I will discharge patient. Counseling: I had a detailed discussion with the patient and/or guardian regarding: the historical points, exam findings, and any diagnostic results supporting the discharge/admit diagnosis, lab results, radiology results, the need for outpatient follow up, to return to the emergency department if symptoms worsen or persist or if there are any questions or concerns that arise at home. Response to treatment: the patient's symptoms have markedly improved after treatment, and as a result, I will discharge patient. Special discussion: I discussed with the patient/guardian in detail that at this point there is no indication for admission to the hospital. It is understood, however, that if the symptoms persist or worsen the patient needs to return immediately for re-evaluation. ED course: Flu/COVID neg, cxr without focal infiltrate, no oxygen requirement, will dc home with prn zofran for viral syndrome. . 07/02 00:05 Order name: Urine --Ancillary (enter results) tt3 07/02 00:05 Order name: Urine Dipstick--Ancillary (enter results) tt3 07/02 01:25 Order name: COVID-19/FLU A+B; Complete Time: 01:30 EDMS 07/01 23:36 Order name: Urine Dipstick-Ancillary (obtain specimen); Complete Time: 00:03 rn 07/01 23:36 Order name: Urine Test (obtain specimen); Complete Time: 00:03 rn 07/01 23:37 Order name: IV Start; Complete Time: 00:03 rn 07/02 00:22 Order name: Chest Single View EDMS Administered Medications: 07/01 23:50 Drug: NS 0.9% 1000 ml Route: IV; Rate: 1000 ml; Site: left antecubital; ea 07/02 01:19 Drug: Tylenol 650 mg Route: PO; ea Disposition: 07/02/20 01:37 Discharged to Home. Impression: Vomiting, Fever, unspecified, Viral Syndrome. - Condition is Stable. - Discharge Instructions: Fever, Adult, Nausea and Vomiting, Adult, Viral Gastroenteritis, Adult. - Prescriptions for Zofran ODT 4 mg Oral tablet,disintegrating - place 1 tablet by TRANSLINGUAL route every 8 hours As needed; 20 tablet. - Medication Reconciliation Form, Thank You Letter, Antibiotic Education, Prescription Opioid Use form. - Follow up: Private Physician; When: As needed; Reason: Recheck today's complaints, Re-evaluation by your physician. - Problem is new. - Symptoms have improved. Signatures: Dispatcher [employer] EDMS Hal Watters MD MD rn Antunez, Elena, RN RN ea Linscombe, Lacie, RN RN ll2 Corrections: (The following items were deleted from the chart) 01:49 01:37 07/02/2020 01:37 Discharged to Home. Impression: Vomiting; Fever, unspecified; ll2 Viral Syndrome. Condition is Stable. Forms are Medication Reconciliation Form, Thank You Letter, Antibiotic Education, Prescription Opioid Use. Follow up: Private Physician; When: As needed; Reason: Recheck today's complaints, Re-evaluation by your physician. Problem is new. Symptoms have improved. rn
--- NOTE | 2020-07-02 01:37 | ER ---
Nurse's Notes [facility] Name: Carla Duncan Age: 24 yrs Sex: Female : 1995 Arrival Date: 07/01/2020 Time: 23:21 Bed 14 Private MD: Diagnosis: Vomiting;Fever, unspecified;Viral Syndrome Presentation: 07/01 23:37 Chief complaint: Patient states: Reports she was feeling achy last week, went to [place] ea on Wednesday, rapid covid and flu negative. Pt reports today she had a fever of 102 and is still achy, has nausea and diarrhea. Coronavirus screen: Client presents with at least one sign or symptom that may indicate coronavirus-19. Provider contacted for isolation considerations. Ebola Screen: No symptoms or risks identified at this time. Initial Sepsis Screen: Does the patient meet any 2 criteria? No. Patient's initial sepsis screen is negative. Does the patient have a suspected source of infection? No. Patient's initial sepsis screen is negative. Risk Assessment: Do you want to hurt yourself or someone else? Patient reports no desire to harm self or others. Onset of symptoms was July 01, 2020. 23:37 Method Of Arrival: Ambulatory ea 23:37 Acuity: VENKATESH 3 ea Triage Assessment: 23:40 General: Appears uncomfortable, Behavior is appropriate for age. Pain: Complains of ea pain in body aches. Historical: - Allergies: 23:40 Stadol; ea 23:40 Toradol; ea 23:40 tramadol; ea - Home Meds: 23:40 xanax PRN [Active]; Seroquel Oral [Active]; Prozac Oral [Active]; proair [Active]; ea - PMHx: 23:40 Ovarian cyst; Depression; Bipolar disorder; Asthma; Anxiety; ea - PSHx: 23:40 ; ea - Immunization history:: Adult Immunizations up to date. - Social history:: Smoking status: Patient denies any tobacco usage or history of. - Family history:: not pertinent. - Hospitalizations: : No recent hospitalization is reported. Screenin:36 Abuse screen: Denies threats or abuse. Nutritional screening: No deficits noted. ea Tuberculosis screening: No symptoms or risk factors identified. Fall Risk None identified. Assessment: 23:40 General: Appears uncomfortable, Behavior is appropriate for age. Pain: Complains of ea pain in body aches. Neuro: Level of Consciousness is awake, alert, obeys commands, Oriented to person, place, time. Cardiovascular: Patient's skin is warm and dry. Respiratory: Airway is patent Respiratory effort is even, unlabored, Respiratory pattern is regular, symmetrical. Derm: Skin is pink, warm \T\ dry. 07/02 00:06 Reassessment: Patient and/or family updated on plan of care and expected duration. Pain ea level reassessed. Patient is alert, oriented x 3, equal unlabored respirations, skin warm/dry/pink. 01:07 Reassessment: Patient and/or family updated on plan of care and expected duration. Pain ll2 level reassessed. Patient is alert, oriented x 3, equal unlabored respirations, skin warm/dry/pink. Vital Signs: 07/01 23:30 BP 133 / 84; Pulse 107; Resp 18; Temp 98.6(O); Pulse Ox 99% on R/A; ea 23:37 BP 133 / 88; Pulse 118; Resp 20; Pulse Ox 98% ; Weight 90.72 kg; Height 5 ft. (152.40 ea cm); 07/02 00:30 BP 140 / 95; Pulse 111; Resp 16; Pulse Ox 100% on R/A; ll2 01:20 BP 124 / 90; Pulse 108; Resp 18; Pulse Ox 98% on R/A; ea 07/01 23:37 Body Mass Index 39.06 (90.72 kg, 152.40 cm) ea ED Course: 07/01 23:21 Patient arrived in ED. es 23:29 Hal Watters MD is Attending Physician. rn 23:30 Azucena Bliss RN is Primary Nurse. zb 23:37 Patient has correct armband on for positive identification. Placed in gown. Bed in low ea position. Call light in reach. Side rails up X 1. Pulse ox on. NIBP on. 23:37 Arm band placed on right wrist. Patient placed in an exam room, on a stretcher, on ea pulse oximetry. 23:39 Triage completed. ea 23:50 Inserted saline lock: 20 gauge in left antecubital area, using aseptic technique. Blood ea collected. 07/02 00:38 Chest Single View In Process Unspecified. EDMS 01:00 No provider procedures requiring assistance completed. IV discontinued, intact, ea bleeding controlled, No redness/swelling at site. Pressure dressing applied. Administered Medications: 07/01 23:50 Drug: NS 0.9% 1000 ml Route: IV; Rate: 1000 ml; Site: left antecubital; ea 07/02 01:19 Drug: Tylenol 650 mg Route: PO; ea Outcome: 01:37 Discharge ordered by . rn 01:40 Discharged to home ea 01:40 Condition: stable 01:40 Discharge instructions given to patient, Instructed on discharge instructions, follow up and referral plans. medication usage, Demonstrated understanding of instructions, follow-up care, Prescriptions given X 1. 01:49 Patient left the ED. ll2 Signatures: Dispatcher [employer] EDNJ Angelica Herrera Roman, MD MD rn Antunez, Elena RN Reyna Atkinson ea RN JUDI see2 Azucena Bliss RN JUDI zb Corrections: (The following items were deleted from the chart) 01:09 01:08 BP 140 / 95; Pulse 111bpm; Resp 16bpm; Pulse Ox 100% RA; ll2 ll2 01:20 07/01 23:30 BP 133 / 84; Pulse 107bpm; Resp 18bpm; Pulse Ox 99% RA; ll2 ea
[2020-07-02 02:08] VITALS: TEMP 98.6
[2020-07-02 02:16] VITALS: BP 124/90; O2SAT 98
--- NOTE | 2020-07-02 06:48 | RAD REPORT ---
EXAM DESCRIPTION: Brandy Single View07/02/2020 12:38 am CLINICAL HISTORY: Fever COMPARISON: March 2020 FINDINGS: The lungs appear clear of acute infiltrate. The heart is normal size IMPRESSION: No acute abnormalities displayed
[2020-07-02 06:52] LABS: Urine Blood TRACE (NEG); Urine Glucose NEGATIVE (NEG); Urine Protein NEGATIVE (NEG)
== END 2020-07-02 01:49 | disposition home or self-care (01) ==
LOC: ER 23:17
DX: B34.9 Viral infection, unspecified (principal); R11.10 Vomiting, unspecified; Z20.822 Contact with and (suspected) exposure to COVID-19; F31.9 Bipolar disorder, unspecified; Z88.5 Allergy status to narcotic agent
CPT/HCPCS: 81025; 81003; 0240U; 71045; 99284

== ENCOUNTER 2020-07-20 21:04 | Emergency (ER) | payer BC ==
--- OUTSIDE RECORDS SUMMARY | 2020-07-20 21:07 | XMS REPORT | Continuity of Care Document ---
:1995 Author Organization [facility] t Address [address] [place] [address] Care Team Providers Name Role Phone Asked, Pcp Primary Care Physician Unavailable Supa AREVALO, E Attending Clinician Singer FERNÁNDEZ Attending Clinician KELSI Attending Clinician Unavailable Payers Payer Name Policy Type Policy Number Effective Date Expiration Date S ource Problems This patient has no known problems. Allergies, Adverse Reactions, Alerts Allergy Allergy Status Severity Reaction(s) Onset Inactive Treating Comm ents Source Name Type Date Date Clinician Butorphcortez Propensi Active Palpitations 2018-06 [place] nol ty to 2-25 [facility] Tartrate adverse 00:00: st reaction 00 s to drug morphine DA Active [facility] 07[facility] [place] codeine DA [facility] [place] [facility] 1[facility] [place] tramadol DA Active [place] 2017-06 [facility] 2[facility] [place] Tramadol Propensi Active Other (See headache [place] ty to Comments) 9- [facility] adverse 00:00: st reaction 00 s to drug Acetamin Propensi Active Shortness Of [place] ophen-Co ty to Breath 03-11 [facility] deine adverse 00:00: st reaction 00 s to drug No Known DA Active [facility] Allergie 3-14 [facility] [place] Family History Family Member Diagnosis Comments Start Date Stop Date Source Natural mother Diabetes [facility]od[facility] Natural mother Menstrual problems [place] [facility] Social History Social Habit Start Date Stop Date Quantity Comments Source Sex Assigned At [facility] ethodist Tobacco use and 2019-06-21 2019-06-21 Never used [facility] ethodi exposure 00:00:00 00:00:00 Alcohol intake 2019-06-21 2019-06-21 Current drinker [place] [facility] 00:00:00 00:00:00 of alcohol (finding) Alcohol Comment 2016-04-28 2016-04-28 social, weekly [place] [facility] 00:00:00 00:00:00 Smoking Status Start Date Stop Date Source Never smoker [facility] Medications Ordered Filled Start Stop [...] mouth. st 500-60-15 17 mg tablet acetaminoph 2018-06- No 1000mg Q6H Take 2 [place] (TYLENOL 2-25 01-24 tablets Meth shamir [...] Comments Source Future Scheduled 2020-01-27 INFLUENZA VACCINE [place] [facility] 00:00:00 [code = INFLUENZA VACCINE] Future Scheduled 2015-09-17 Screening for [place] [facility] Test 00:00:00 malignant neoplasm of cervix (procedure) [code = 829292089] Future Scheduled 2010 COVID-19 VACCINE (1 [place] [facility] Test 00:00:00 of 2) [code = COVID-19 VACCINE (1 of 2)] Encounters Start End Encounter Admission Attending Care Care Encounter Source Date/Time Date/Time Type Type Clinicians Facility Department ID 2020-07-17 2020-07-17 Emergency [place] [facility] [id number] 05:53:00 08:59:00 Dani Kauffman [id number] [place] [id number] [place] [id number] 2019-06-21 2019-06-21 [facility] [id number] [place] 00:00:00 00:00:[address] [facility] [address] [...] PLTMR) NORMAL BO L AG HEPATITIS B [id number] 04:15:00 Test Item Value Reference Range Interpretation Comments AG HEPATITIS B SURFACE (test code NONREACTIVE NONREACTIVE = HBSAG) AB HEPATITIS C [id number] 04:15:00 Test Item Value Reference Range Interpretation Comments AB HEPATITIS C (test code = NONREACTIVE NONREACTIVE HCVAB) SIGNAL TO CUTOFF (test code = 0.13 <0.80 N CUTOFF) RUBELLA [id number] 04:15:00 Test Item Value Reference Range Interpretation Comments RUBELLA SCREEN 70.2 IUnit/ml Results >10. 0IUnits/ml (test code = are considered positive RUBSC) inaccordance wi th the CLSI guidelines and based on the [employer] International S tandard for Anti-Rubell a serum as anindicator of immune status and a br eakpoint to detect mostseropositiv e persons. AB [id number] 04:15:00 Test Item Value Reference Range Interpretation Comments AB TREPONEMA (test code = TREPAB) NONREACTIVE NONREACTIVE AG HEPATITIS B [id number] 04:00:00 Test Item Value Reference Range Interpretation Comments AG HEPATITIS B SURFACE (test code NONREACTIVE NONREACTIVE = HBSAG) AB HEPATITIS C [id number] 04:00:00 Test Item Value Reference Range Interpretation Comments AB HEPATITIS C (test code = HCVAB) NONREACTIVE SIGNAL TO CUTOFF (test code = CUTOFF) <0.80 RUBELLA [id number] 04:00:00 Test Item Value Reference Range Interpretation Comments RUBELLA SCREEN 70.2 IUnit/ml Results >10. 0IUnits/ml (test code = are considered positive RUBSC) inaccordance wi th the CLSI guidelines and based on the O International S tandard for Anti-Rubell a serum as anindicator of immune status and a br eakpoint to detect mostseropositiv e persons. AB [id number] 04:00:00 Test Item Value Reference Range Interpretation Comments AB TREPONEMA (test code = TREPAB) NONREACTIVE NONREACTIVE CBC W/AUTO [id number] 00:36:00 Test Item Value Reference Range Interpretation [...]
--- OUTSIDE RECORDS SUMMARY | 2020-07-20 21:07 | XMS REPORT | Clinical Summary ---
:1995 Author Organization [facility] Address [address] [place] [address] Care Team Providers Name Role Phone Asked, [...] (six) hours as needed for mild pain. ewduktkayrzei-ocez-uvc Take 2 tablets 0 Active ilamine 500-60-15 [...] Due Date Last Done Comments COVID-19 VACCINE (1 of 2) 2010 CERVICAL CANCER SCREENING 09/17/2015 INFLUENZA VACCINE 01/27/2020 Results Not on fileafter 07/20/2019 Insurance Payer Benefit Plan / Subscriber ID Effective Dates Phone Addre ss Type Group MEDICAID MEDICAID [id number] 2016-Present Med icaid Scaled Inference COM HLTH [id number] 2016-Presen HMO CHOICE CHC/STAR JOBY t CIGNA CIGNA OPEN [id number] 2016-Present HMO ACCESS/NETWORK BCBS BCBS CHOICE [id number] 2019-Prese P PO PPO/FEDERAL nt EMPL PPO BCBS BCBS CHOICE [id number] 2019-Presen PPO PPO/FEDERAL t EMPL PPO Advance Directives For more information, please contact: [phone] Type Date Recorded Patient Manager [place] Explanati on Advance Directives, Living Will and Medical Power of Calibration Checker
--- OUTSIDE RECORDS SUMMARY | 2020-07-20 21:08 | XMS REPORT | Summary of Care ---
:1995 Author Organization [facility] - [facility] Address [address] [place] [id number] Care Team Providers Name Role Phone Ravi La Primary Care Provider Reason for Visit Reason Comments Back Pain Headache Auth/Cert Status Reason Specialty Diagnoses / Referred By Referred To Procedures Contact Contact Emergency Medicine [facility] Em ergency Dept [address] [place] [id number] Fax: Encounter Details Date Type Department Care Team Description 07/17/2020 Emergency ADC-Emergency Austin Cowart MD [address] [place] [address] [id number] [place], [place] [id number] Acute nonintractable headache, unspecifi ed headache type (Primary Dx); Department Dani Kauffman DO [address] [facility]. [address] [place], [place] [address] Neck pain without injury; [address] [place] [address] Nausea and vomiting in adult patient [address] [place], [place] [id number] Allergies Active Allergy Reactions Severity Noted Date Comments Acetaminophen-Codeine Shortness of Breath High 03/11/2016 Butorphanol Tartrate Palpitations 07/17/2020 Tussin Dm Cough Medicine Rash 11/01/2013 documented as of this encounter (statuses as of 07/17/2020) Medications Medication Sig Dispensed Refills Start Date End Date Status vit Take 1 Packet by 30 Each 6 11/23/2017 Active 60-[id number]-dha mouth daily. (SELECT-OB + DHA) 29 mg iron-1 mg -250 mg combo pack documented as of this encounter (statuses as of 07/17/2020) Active Problems Problem Noted Date Obesity (BMI 30-39.9) 07/13/2018 Urinary tract infection without hematuria, site unspec ified 11/23/2017 Supervision of other high risk , antepartum 0 11/17/2017 Previous delivery, antepartum 11/17/2017 Desires (vaginal after ) trial 10/27 Obesity in 11/17/2017 Family history of spina bifida 02/20/2014 documented as of this encounter (statuses as of 07/17/2020) Resolved Problems Problem Noted Date Resolved Date Abdominal pain, generalized 11/27/2015 11/17/2017 Rubella non-immune status, antepartum 02/21/2014 Immune to varicella 02/21/2014 11/27/2015 High-risk , first trimester [V23.9] 02/20/2014 11/27/2015 History of skin cancer 02/20/2014 11/17/2017 Condyloma acuminata of vulva in , first trimester 0 02/20/2014 11/17/2017 documented as of this encounter (statuses as of 07/17/2020) Immunizations Name Administration Dates Next Due Td 06/28/2011 documented as of this encounter Social History Tobacco Use Types Packs/Day Years Used Date Never Smoker Smokeless Tobacco: Never Used Alcohol Use Drinks/Week oz/Week Comments No Sex Assigned at Date Recorded Not on file COVID-19 Exposure Response Date Recorded In the last month, have you been in contact with No / Unsure 07/17/2020 6:18 AM [employer]ERSON[employer] SAL[employer] REP someone who was confirmed or suspected to have Coronavirus / COVID-19? documented as of this encounter Last Filed Vital Signs Vital Sign Reading Time Taken Comments Blood Pressure 112/65 07/17/2020 8:00 AM [employer] SAL[employer] REP Pulse 86 07/17/2020 8:00 AM [employer] REP Temperature 37.2 C (99 F) 07/17/2020 5:50 AM [employer] REP Respiratory Rate 20 07/17/2020 8:00 AM [employer]ERSON[employer] SALES REP Oxygen Saturation 100% 07/17/2020 8:00 AM [employer] SAL[employer] REP Inhaled Oxygen Concentration - - Weight 86.2 kg (190 lb) 07/17/2020 5:50 AM [employer] SAL[employer] REP Height - - Body Mass Index 37.11 07/12/2018 7:29 PM [employer] SALES REP documented in this encounter Discharge Instructions Dani Mccord DO - 07/17/2020 DIAGNOSIS Diagnoses that have been ruled out: None Diagnoses that are still under consideration: None Final diagnoses: Acute nonintractable headache, unspecified headache type Neck pain without injury Nausea and vomiting in adult patient NO LIFE-THREATENING FINDINGS ON TODAY'S EXAM. PROCEDURES IN THE ER TODAY: Orders Placed This Encounter Procedures CBC WITH DIFF URINALYSIS POCT TEST MEDICATIONS ADMINISTERED IN THE ER TODAY AND DISCHARGE MEDICATIONS: Orders Placed This Encounter Medications metoclopramide HCl (REGLAN) injection 10 mg NaCl 0.9% (NS) IV infusion 1,000 mL ketorolac (TORADOL) injection 15 mg clonazePAM (KLONOPIN) tablet 0.5 mg FOLLOW-UP RECOMMENDATIONS: RECOMMEND FOLLOW-UP WITH A PRIMARY CARE PROVIDER OR SPECIALIST IN 2-5 DAYS, ESPECIALLY IF NO IMPROVEMENT IN SYMPTOMS. MAY FOLLOW-UP WITH A PROVIDER OF YOUR CHOICE, SUCH : 1. A PHYSICIAN OF YOUR CHOICE 2. [facility], . LOCATIONS IN [facility] 3. [facility], [address] [place] [address]; [phone] OR, IF YOU WISH TO FOLLOW-UP WITHIN THE [facility], MAY TRY THESE OPTIONS (CLINIC APPOINTMENTS AVAILABLE ON [id number] BASIS): 1. SCHEDULE AN APPOINTMENT ONLINE AT WWW[facility] 2. OR CALL THE [facility] AT OR 3. OR CALL YOUR [facility] PHYSICIAN'S OFFICE DIRECTLY IF YOU ARE ALREADY AN ESTABLISHED [facility] PATIENT. RETURN TO ER FOR WORSENING OF SYMPTOMS. AttachmentsThe following attachments cannot be sent through Care Everywhere. Headaches, Self-Care for (Panamanian)documented in this encounter Nursing Notes Cynthia Hernandez RN - 07/17/2020 6:49 AM CSTReport received from Coleen LAU [employer] SAL[employer] REP documented in this encounter ED Notes Coleen Bustos RN - 07/17/2020 5:48 AM CSTTwo days ago patient started having neck pain and vomiting and posterior headache. Also abdominal pain and no BM since yesterday. 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 She has not had any fever or chills. Novision changes. However, she is feeling nauseated and vomiting, and has had poor intake over the past 2 days. It hurts to flex her neck and to turn left and right. No trauma or injury. Regular rizatriptan did not work. Patient previously had COVID in November 2019, and no sick contacts at home. Finally, reports she ran out of her alprazolam prescription about 2 weeks ago, and is waiting to get an appointment with her doctor for refills. Headache Pain location: Occipital Quality: Dull Radiates to: L neck and R neck Severity currently: 10/10 Severity at highest: 10/10 Onset quality: Gradual Duration: 2 days Timing: Constant Progression: Unchanged Chronicity: New Similar to prior headaches: no Context: emotional stress Context: not exposure to bright light, not coughing and not eating Relieved by: Nothing Worsened by: Neck movement Ineffective treatments: Acetaminophen and prescription medications Associated symptoms: nausea, neck pain and vomiting Associated symptoms: no abdominal pain, no back pain, no blurred vision, no congestion, no cough, nodiarrhea, no dizziness, no eye pain, no fever, no myalgias, no numbness, no photophobia, no sore throat, no swollen glands, no visual change and no weakness Past Medical History/Immunizations: Past Medical History: Diagnosis Date Anxiety ongoing, stopped medication for . Cancer 2013 skin cancer, resolved Condyloma acuminata of vulva in , first trimester 02/20/2014 Condyloma acuminata of vulva in , first trimester 02/20/2014 Ovarian cyst STD (sexually transmitted disease) 2013 Chlamydia - treated Tetanus received in last 5 years: No Childhood immunizations: Up-to-date Allergies: Allergies Allergen Reactions Acetaminophen-Codeine Shortness of Breath Stadol [Butorphanol Tartrate] Palpitations Tussin Dm Cough Medicine Rash Past Social History: Tobacco Use Never smoked or used smokeless tobacco. Alcohol Use No. Drug Use No. Sexual Activity Sexually active; Partners: Male; Control/Protection: None. Comments: last sexual intercourse 11/10/2017 Past Surgical History: Past Surgical History: Procedure Laterality Date SECTION 10/13/2014 failure to progress EXCISION OF LABIA LESION 08/2012 due to skin cancer Review of Systems: Review of Systems Constitutional: Negative for chills, diaphoresis and fever. HENT: Negative for congestion, rhinorrhea and sore throat. Eyes: Negative for blurred vision, photophobia, pain and visual disturbance. Respiratory: Negative for cough and shortness of breath. Cardiovascular: Negative for chest pain, palpitations and leg swelling. Gastrointestinal: Positive for nausea and vomiting. Negative for abdominal pain, constipation and diarrhea. Genitourinary: Negative for dysuria, frequency and flank pain. Musculoskeletal: Positive for neck pain. Negative for back pain and myalgias. Skin: Negative for rash and wound. Neurological: Positive for headaches. Negative for dizziness, weakness and numbness. Hematological: Negative for adenopathy. Does not bruise/bleed easily. Physical Exam: ED Triage Vitals [07/17/20 0550] Weight 86.2 kg (190 lb) Actual or estimated Height BP 124/74 Pulse 85 Resp 16 Temp 37.2 C (99 F) Temp source Oral SpO2 99 % Measured on Room air Physical Exam Vitals signs and nursing note reviewed. Constitutional: General: She is not in acute distress. Appearance: Normal appearance. She is normal weight. HENT: Head: Normocephalic and atraumatic. Mouth/Throat: Mouth: Mucous membranes are moist. Pharynx: Oropharynx is clear. No oropharyngeal exudate or posterior oropharyngeal erythema. Eyes: General: No scleral icterus. Pupils: Pupils are equal, round, and reactive to light. Neck: Musculoskeletal: Normal range of motion and neck supple. Cardiovascular: Rate and Rhythm: Normal rate and regular rhythm. Pulses: Normal pulses. Heart sounds: Normal heart sounds. No murmur. Pulmonary: Effort: Pulmonary effort is normal. Breath sounds: Normal breath sounds. Abdominal: General: Abdomen is flat. Bowel sounds are normal. There is no distension. Tenderness: There is no abdominal tenderness. Musculoskeletal: Normal range of motion. Right lower leg: No edema. Left lower leg: No edema. Skin: General: Skin is warm and dry. Capillary Refill: Capillary refill takes less than 2 seconds. Neurological: General: No focal deficit present. Mental Status: She is alert and oriented to person, place, and time. Cranial Nerves: No cranial nerve deficit. Sensory: No sensory deficit. Motor: No weakness. Psychiatric: Mood and Affect: Mood normal. Radiology: No results found for this visit on 07/17/20. Lab Results (24h): Recent Results (from the past 24 hour(s)) CBC WITH DIFF Collection Time: 07/17/20 6:25 AM Result Value Ref Range WBC 9.37 4.30 - 11.10 10*3/L RBC 4.59 3.93 - 5.25 10*6/L HGB 13.4 11.6 - 15.0 g/dL HCT 39.9 35.7 - 45.2 % MCV 86.9 80.6 - 95.5 fL MCH 29.2 25.9 - 32.8 pg MCHC 33.6 31.6 - 35.1 g/dL RDW-SD 40.8 39.0 - 49.9 fL RDW-CV 13.0 12.0 - 15.5 % PLT 407 (H) 166 - 358 10*3/L MPV 9.5 9.5 - 12.9 fL NRBC/100 WBC 0.0 0.0 - 10.0 /100 WBCs NRBC x10^3 <0.01 10*3/L GRAN MAT (NEUT) % 49.7 % IMM GRAN % 0.40 % LYMPH % 37.6 % MONO % 6.3 % EOS % 5.4 % BASO % 0.6 % GRAN MAT x10^3(ANC) 4.65 1.88 - 7.09 10*3/uL IMM GRAN x10^3 0.04 0.00 - 0.06 10*3/uL LYMPH x10^3 3.52 (H) 1.32 - 3.29 10*3/uL MONO x10^3 0.59 0.33 - 0.92 10*3/uL EOS x10^3 0.51 (H) 0.03 - 0.39 10*3/uL BASO x10^3 0.06 0.01 - 0.07 10*3/uL EKG: none Orders and Treatments: Orders Placed This Encounter Procedures CBC WITH DIFF URINALYSIS POCT TEST Orders Placed This Encounter Medications metoclopramide HCl (REGLAN) injection 10 mg NaCl 0.9% (NS) IV infusion 1,000 mL ketorolac (TORADOL) injection 15 mg clonazePAM (KLONOPIN) tablet 0.5 mg ED COURSE ED Course as of Jul 17 707WedJul 17, 2020 0653 Given reglan, fluids, toradol (which she reports makes her anxious). Check CBC. If markedly elevated, would consider further testing. However, this is very muscular/reactive type headache. [GR] 0640 Does not clinically have meningitis, nor fever or chills. This is a change in headache, but no distress. Muscular pain of the neck and trapezius noted. [GR] ED Course User Index [GR] Austin Cowart MD MDM: MDM Reviewed: nursing note and vitals Interpretation: labs Diagnosis/Impression: ICD-10-CM ICD-9-CM 1. Acute nonintractable headache, unspecified headache type R51.9 784.0 2. Neck pain without injury M54.2 723.1 3. Nausea and vomiting in adult patient R11.2 787.01 Disposition/Condition: ED Disposition ED Disposition Condition Comment Disch - Home Stable Discharge Medications: Patient's Medications START taking these medications No medications on file CONTINUE taking these medications which have NOT CHANGED VIT 65-[id number]-DHA (SELECT-OB + DHA) 29 MG IRON-1 MG -250 MG COMBO PACK Take 1 Packet by mouth daily. START taking Modified Medications as Prescribed No medications on file STOP taking these medications No medications on file Follow-up: Contact information for follow-up Aurelio La Jr. Specialty: IM-INTERNAL MEDICINE Relationship: PCP - General [address] [place] [address] [place] [address] Electronically signed by: Austin Cowart MD 07/17/2020 5:57 AM [employer] SALES REP documented in this encounter Miscellaneous Notes ED Nurse Note - Cynthia Hernandez RN - 07/17/2020 8:59 AM CSTPt discharged. Instructions given verbalized understanding. No questions or concerns D Nurse Note - Coleen Bustos RN - 07/17/2020 6:37 AM CSTStates NSAIDs make her anxious. notified and ordered klonopin PRN D Nurse Note - Coleen Bustos RN - 07/17/2020 6:34 AM CSTUnable to give urine sample at the moment documented in this encounter Plan of Treatment Health Maintenance Due Date Last Done Comments DTaP,Tdap,and Td Vaccines (2 - 2005 06/28/2011 Tdap) HPV VACCINES (1 - 2-dose series) 2005 Depression Screening 2006 INFLUENZA VACCINE (#1) 2020 PAP SMEAR 11/17/2020 11/17/2017 PNEUMOCOCCAL 0-64 YEARS COMBINED Aged Out No longer eligible based on SERIES patient's age to complete this topic documented as of this encounter Procedures Procedure Name Priority Date/Time Associated Diagnosis Comme nts POCT TEST RODRICK 07/17/2020 8:08 Acute nonintracta ble Results for this AM [employer] SALES REP headache, unspecified proced ure are in headache type the results Neck pain without section. injury Nausea and vomiting in adult patient URINALYSIS STAT 07/17/2020 8:08 Acute nonintractable Res ults for this AM [employer] REP headache, unspecified proced ure are in headache type the results Neck pain without section. injury Nausea and vomiting in adult patient CBC WITH DIFF STAT 07/17/2020 6:25 Acute nonintractable Re sults for this AM [employer] SALES REP headache, unspecified proced ure are in headache type the results Neck pain without section. injury Nausea and vomiting in adult patient NOTICE OF PRIVACY Routine 07/17/2020 5:48 PRACTICES AM [employer] SAL[employer] REP CONSENT/REFUSAL FOR Routine 07/17/2020 5:44 DIAGNOSIS AND AM [employer] SAL[employer] REP TREATMENT documented in this encounter Results POCT TEST (07/17/2020 8:08 AM PERSON[employer]ES SALES REP) Pathologist Sig nature POCT PREG negative On board controls acceptable present with C Line POCT PREG LOT # [id number] POCT PREG TEST DATE 2022-02-25 Specimen Urine - URINE, CLEAN CATCH URINALYSIS (07/17/2020 8:08 AM PERSONAL [employer]ES SALES REP) APPEARANCE Hazy (A) Clear [facility] COLOR Yellow Yellow [facility] PH 6.0 4.8 - 8.0 [facility] SP GRAVITY 1.013 1.003 - 1.030 [facility] GLU U QUAL Normal Normal [facility] BLOOD NegativeComment: Negative [facility] INTERFERENCE FROM HOSPITAL LABORATORY ASCORBIC ACID MAY CAUSE FALSE NEGATIVE RESULT KETONES Negative Negative [facility] PROTEIN Negative Negative [facility] UROBILIN Normal Normal [facility] BILIRUBIN Negative Negative [facility] NITRITE Negative Negative [facility] LEUK SILVINO Negative Negative [facility] RBC/HPF 1 0 - 3 HPF [facility] WBC/HPF <1 0 - 5 HPF [facility] BACTERIA Few (A) Negative [facility] MUCOUS Slight (A) Negative LPF [facility] SQ EPITH 16 HPF [facility] Specimen Urine - URINE, CLEAN CATCH Performing Organization Address City/State/Zipcode Phone Number [facility] CLIA: [id number] [place] [address] CBC WITH DIFF (07/17/2020 6:25 AM PERSONAL [employer]ES SALES REP) [facility] nature WBC 9.37 4.30 - 11.10 [facility] 10*3/L [facility] RBC 4.59 3.93 - 5.25 [facility] 10*6/L [facility] HGB 13.4 11.6 - 15.0 [facility] g/dL [facility] HCT 39.9 35.7 - 45.2 % [facility] MCV 86.9 80.6 - 95.5 fL [facility] MCH 29.2 25.9 - 32.8 pg [facility] MCHC 33.6 31.6 - 35.1 [facility] g/dL [facility] RDW-SD 40.8 39.0 - 49.9 fL [facility] RDW-CV 13.0 12.0 - 15.5 % [facility] PLT 407 (H) 166 - 358 [facility] 10*3/L [facility] MPV 9.5 9.5 - 12.9 fL [facility] NRBC/100 WBC 0.0 0.0 - 10.0 /100 [facility] WBCs [facility] NRBC x10^3 <0.01 10*3/L [facility] GRAN MAT (NEUT) % 49.7 % [facility] IMM GRAN % 0.40 % [facility] LYMPH % 37.6 % [facility] MONO % 6.3 % [facility] EOS % 5.4 % [facility] BASO % 0.6 % [facility] GRAN MAT x10^3(ANC) 4.65 1.88 - 7.09 [facility] 10*3/uL [facility] IMM GRAN x10^3 0.04 0.00 - 0.06 [facility] 10*3/uL [facility] LYMPH x10^3 3.52 (H) 1.32 - 3.29 [facility] 10*3/uL HOSPITAL LAB[facility]ATORY MONO x10^3 0.59 0.33 - 0.92 [facility] 10*3/uL HOSPITAL LAB[facility]ORY EOS x10^3 0.51 (H) 0.03 - 0.39 [facility] 10*3/uL [facility] BASO x10^3 0.06 0.01 - 0.07 [facility] 10*3/uL [facility] Specimen Blood - VENOUS Performing Organization Address City/State/Zipcode Phone Number [facility] CLIA: [id number] [place] [address] documented in this encounter Visit Diagnoses Diagnosis Acute nonintractable headache, unspecifi ed headache type - Primary Neck pain without injury Nausea and vomiting in adult patient Nausea with vomiting documented in this encounter Administered Medications Medication Order MAR Action Action Date Dose Rate Site ketorolac (TORADOL) injection 15 Given 07/17/2020 6:29 AM PERSONAL [employer]ES SALES REP 1 5 mg mg 15 mg, Slow IV Push, ONCE, 1 dose, Wed07/17/20 at 0730, RODRICK, 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 Restricted medication: AUSTIN COWART metoclopramide HCl (REGLAN) injection 10 mg Given 07/17/2020 6:29 AM PERSON[employer]ES SALES REP 10 mg 10 mg, Slow IV Push, ONCE, 1 dose, Wed07/17/20 at 0730, RODRICK NaCl 0.9% (NS) IV infusion 1,000 New Bag 07/17/2020 6:[address] 1,000 mL 999 mL/hr mL at 999 mL/hr, Intravenous, ONCE, 1 dose, Wed07/17/20 at 0730, RODRICK documented in this encounter Insurance Payer Benefit Plan Subscriber ID Effective Dates Phone Address Type / Group [facility] [id number] 2019-Prese [phone] [address] P[place] [id number] [place] [address] documented as of this encounter Advance Directives Name Relationship Healthcare Agent Communication Relationship Kezia Hardy Mother Health Care Agent [place] Significant Other First Alternate Health Care Agent (Mobile)[phone] ([place])
[2020-07-20] MEDS ORDERED: ONDANSETRON 4 MG/2 ML VIAL ONE ×2 (22:06→23:07)
[2020-07-20] MEDS ORDERED: NA CHLORIDE 0.9% 1,000 ML ONE (22:06)
[2020-07-20] MEDS ORDERED: MORPHINE 4 MG/ML SYR ONE (22:06)
[2020-07-20 22:13] LABS: Absolute Lymphocytes (CBC) 3.3 K/uL (0.7-4.9); Basophils % 0.7 % (0-1.3); Hematocrit 38.5 % (36.0-45.0); Lymphocytes % 35.8 % (15.3-44.8); MPV 8.2 fL (7.6-11.3); RBC Red Blood Cell Count 4.39 M/uL (3.86-4.86)
[2020-07-20 22:16] LABS: ALT/SGPT 14 U/L (12-78); Albumin 3.7 g/dL (3.4-5.0); Alkaline Phosphatase 58 U/L (45-117); BUN Blood Urea Nitrogen 13 mg/dL (7-18); Bicarbonate 27 mmol/L (21-32); Bilirubin Total 0.2 mg/dL (0.2-1.0); Glucose Level 102 mg/dL (74-106); Potassium 3.6 mmol/L (3.5-5.1); Protein, Total 7.4 g/dL (6.4-8.2); Sodium Level 139 mmol/L (136-145)
[2020-07-20 22:42] LABS: AST/SGOT < 3 U/L (15-37)
[2020-07-20 23:15] LABS: SARS-COV-2 RT PCR NEGATIVE (NEGATIVE)
--- NOTE | 2020-07-21 00:01 | EDPHYS ---
Physician Documentation [facility] Name: Carla Duncan Age: 24 yrs Sex: Female : 1995 Arrival Date: 07/20/2020 Time: 21:07 Bed 7 Private MD: Aurelio La ED Physician Raimundo Pollack HPI: 07/20 21:38 This 24 yrs old Female presents to ER via Ambulatory with complaints of pm1 Vomiting/Diarrhea, Fever, body ache, Breathing Difficulty. 21:38 The patient presents to the emergency department with nausea, vomiting, diarrhea. pm1 Onset: The symptoms/episode began/occurred 4 day(s) ago. Possible causes: sick contacts, by family, son, He tested positive for covid 4 days ago. The symptoms are aggravated by nothing. The symptoms are alleviated by nothing. Associated signs and symptoms: Pertinent positives: fever, body aches, joint pain, headache, shortness of breath, Pertinent negatives: abdominal pain. Severity of symptoms: in the emergency department the symptoms are worse. The patient has not experienced similar symptoms in the past. The patient has not recently seen a physician. 4 days ago onset of headache, congestion, body aches and joint pain. Today onset of n/v/d and shortness of breath. 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 - Social history:: Smoking status: Reported history of juuling and/or vaping. ROS: 21:38 Eyes: Negative for injury, pain, redness, and discharge, ENT: Negative for injury, pm1 pain, and discharge, Neck: Negative for injury, pain, and swelling, Cardiovascular: Negative for chest pain, palpitations, and edema. 21:38 Back: Negative for injury and pain, : Negative for injury, bleeding, discharge, and swelling, MS/Extremity: Negative for injury and deformity, Skin: Negative for injury, rash, and discoloration. 21:38 Constitutional: Positive for body aches, fever. 21:38 Respiratory: Positive for cough, shortness of breath. 21:38 Abdomen/GI: Positive for nausea, vomiting, and diarrhea, Negative for abdominal pain. 21:38 Neuro: Positive for headache. Exam: 21:38 Constitutional: This is a well developed, well nourished patient who is awake, alert, pm1 and in no acute distress. Head/Face: Normocephalic, atraumatic. 21:38 Back: No spinal tenderness. No costovertebral tenderness. Full range of motion. Skin: Warm, dry with normal turgor. Normal color with no rashes, no lesions, and no evidence of cellulitis. MS/ Extremity: Pulses equal, no cyanosis. Neurovascular intact. Full, normal range of motion. 21:38 Cardiovascular: Exam negative for acute changes, Rate: tachycardic, actual rate is 105 bpm, Rhythm: regular, Pulses: no pulse deficits are appreciated, Edema: is not appreciated. 21:38 Respiratory: Exam negative for acute changes, respiratory distress, shortness of breath. 21:38 Abdomen/GI: Inspection: obese Palpation: abdomen is soft and non-tender, in all quadrants. 21:38 Neuro: Exam negative for acute changes, Orientation: is normal, Mentation: is normal, Motor: is normal, moves all fours. Vital Signs: 21:14 BP 130 / 77; Pulse 122; Resp 18 S; Temp 99(O); Pulse Ox 99% on R/A; Weight 88.45 kg ca1 (R); Height 5 ft. 0 in. (152.40 cm) (R); 23:00 BP 113 / 76; Pulse 105; Resp 18; Pulse Ox 99% ; ea 07/21 00:10 BP 128 / 68; Pulse 99; Resp 18; Temp 98.8; Pulse Ox 99% ; ea 07/20 21:14 Body Mass Index 38.08 (88.45 kg, 152.40 cm) ca1 MDM: 07/20 21:25 Patient medically screened. pm1 23:58 Data reviewed: vital signs. Data interpreted: Pulse oximetry: on room air is 99 %. pm1 Interpretation: normal. 23:58 Counseling: I had a detailed discussion with the patient and/or guardian regarding: the pm1 historical points, exam findings, and any diagnostic results supporting the discharge/admit diagnosis, lab results, radiology results, the need for outpatient follow up, to return to the emergency department if symptoms worsen or persist or if there are any questions or concerns that arise at home. 07/21 00:00 ED course: Patient with positive covid contact at home and with signs and symptoms pm1 suggesting covid infection. Patient reports change in taste. Despite negative covid 19 test, I believe it is a false negative test result. 07/20 21:37 Order name: CBC with Diff pm1 07/20 21:37 Order name: CMP; Complete Time: 22:54 pm1 07/20 21:37 Order name: Strep; Complete Time: 23:13 pm1 07/20 21:38 Order name: CBC with Automated Diff; Complete Time: 22:54 EDMS 07/20 22:13 Order name: Chest Single View XRAY pm1 07/20 23:06 Order name: Throat Culture EDMS 07/20 23:16 Order name: COVID-19/FLU A+B; Complete Time: 23:29 EDMS 07/20 21:37 Order name: IV Saline Lock; Complete Time: 21:52 pm1 07/20 21:37 Order name: Droplet/Contact Precautions; Complete Time: 21:52 pm1 07/20 21:37 Order name: Labs collected and sent; Complete Time: 21:52 pm1 07/20 21:37 Order name: O2 Per Protocol; Complete Time: 21:52 pm1 Administered Medications: 07/20 21:55 Drug: NS 0.9% 1000 ml Route: IV; Rate: 1000 ml; Site: right antecubital; ea 21:55 Drug: Zofran (Ondansetron) 4 mg Route: IVP; Site: right antecubital; ea 22:30 Follow up: Response: No adverse reaction ea 21:56 Drug: morphine 4 mg Route: IVP; Site: right antecubital; ea 22:30 Follow up: Response: No adverse reaction 07/21 00:13 Drug: traMADol 50 mg Route: PO; ea 00:13 Follow up: Response: Medication administered at discharge. ea Disposition: 07:02 Co-signature as Attending Physician, Raimundo Pollack MD. 7 Disposition: 07/21/20 00:00 Discharged to Home. Impression: Coronavirus infection, unspecified, Vomiting, Diarrhea, unspecified. - Condition is Stable. - Discharge Instructions: Diarrhea, Adult, Nausea and Vomiting, Adult, COVID-19. - Prescriptions for promethazine 25 mg Oral Tablet - take 1 tablet by ORAL route every 6 hours As needed; 20 tablet. - Medication Reconciliation Form, Thank You Letter, Antibiotic Education, Prescription Opioid Use form. - Follow up: Emergency Department; When: As needed; Reason: Worsening of condition. Follow up: Private Physician; When: 2 - 3 days; Reason: Recheck today's complaints, Continuance of care, Re-evaluation by your physician. - Problem is new. - Symptoms have improved. Signatures: Dispatcher [employer] EDWA Skyler Krause, HOME HEALTH CARE SOCIAL WORKER HOME HEALTH CARE SOCIAL WORKER pm1 Lilly Jones RN RN ea Acob, Cheryl, RN RN ca1 Holmes, Maurice, MD MD [id number] Corrections: (The following items were deleted from the chart) 07/20 22:11 21:38 CORONAVIRUS+MR.LAB.BRZ ordered. [facility] 22:11 21:38 Influenza Screen (A \T\ B)+BA.LAB.BRZ ordered. [facility] 07/21 00:19 00:00 07/21/2020 00:00 Discharged to Home. Impression: Coronavirus infection, ea unspecified; Vomiting; Diarrhea, unspecified. Condition is Stable. Forms are Medication Reconciliation Form, Thank You Letter, Antibiotic Education, Prescription Opioid Use. Follow up: Emergency Department; When: As needed; Reason: Worsening of condition. Follow up: Private Physician; When: 2 - 3 days; Reason: Recheck today's complaints, Continuance of care, Re-evaluation by your physician. Problem is new. Symptoms have improved. pm1
--- NOTE | 2020-07-21 00:01 | ER ---
Nurse's Notes [facility] Name: Carla Duncan Age: 24 yrs Sex: Female : 1995 Arrival Date: 07/20/2020 Time: 21:07 Bed 7 Private MD: Aurelio La Diagnosis: Coronavirus infection, unspecified;Vomiting;Diarrhea, unspecified Presentation: 07/20 21:14 Chief complaint: Patient states: My son tested positive for Covid. Wednesday, started ca1 having headaches and congestion, muscle and joints. Today, fever, N/V/D, body aches, SOB. Coronavirus screen: Client denies travel out of the [place] in the last 14 days. congestion, cough unrelated to allergies, diarrhea, fatigue, fever, headache, muscle pain, nausea, runny nose, shortness of breath, vomiting. Client presents with at least one sign or symptom that may indicate coronavirus-19. Standard/surgical mask placed on the client. Provider contacted for isolation considerations. Ebola Screen: Patient negative for fever greater than or equal to 101.5 degrees Fahrenheit, and additional compatible Ebola Virus Disease symptoms Patient denies exposure to infectious person. Patient denies travel to an Ebola-affected area in the 21 days before illness onset. No symptoms or risks identified at this time. Initial Sepsis Screen: Does the patient meet any 2 criteria? No. Patient's initial sepsis screen is negative. Does the patient have a suspected source of infection? No. Patient's initial sepsis screen is negative. Risk Assessment: Do you want to hurt yourself or someone else? Patient reports no desire to harm self or others. Onset of symptoms was July 20, 2020. 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 - Social history:: Smoking status: Reported history of juuling and/or vaping. Screenin:00 Abuse screen: Denies threats or abuse. Nutritional screening: No deficits noted. ea Tuberculosis screening: No symptoms or risk factors identified. Fall Risk None identified. Assessment: 21:14 Reassessment: Patient and/or family updated on plan of care and expected duration. Pain ea level reassessed. General: Appears in no apparent distress. Behavior is appropriate for age. Pain: Complains of pain in body aches. Neuro: Level of Consciousness is awake, alert, obeys commands, Oriented to person, place, time. Cardiovascular: Patient's skin is warm and dry. Respiratory: Airway is patent Respiratory effort is even, unlabored, Respiratory pattern is regular, symmetrical. GI: Abdomen is non-distended. Derm: Skin is pink, warm \T\ dry. 23:00 Reassessment: Patient and/or family updated on plan of care and expected duration. Pain ea level reassessed. Patient is alert, oriented x 3, equal unlabored respirations, skin warm/dry/pink. 07/21 00:15 Reassessment: Patient and/or family updated on plan of care and expected duration. Pain ea level reassessed. Patient is alert, oriented x 3, equal unlabored respirations, skin warm/dry/pink. Discharge instruction given to patient, verbalized the understanding of instruction. Pt left ED ambulatory tolerating well. Vital Signs: 07/20 21:14 BP 130 / 77; Pulse 122; Resp 18 S; Temp 99(O); Pulse Ox 99% on R/A; Weight 88.45 kg ca1 (R); Height 5 ft. 0 in. (152.40 cm) (R); 23:00 BP 113 / 76; Pulse 105; Resp 18; Pulse Ox 99% ; ea 07/21 00:10 BP 128 / 68; Pulse 99; Resp 18; Temp 98.8; Pulse Ox 99% ; ea 07/20 21:14 Body Mass Index 38.08 (88.45 kg, 152.40 cm) ca1 ED Course: 07/20 21:07 Patient arrived in ED. es 21:07 Aurelio La MD is Private Physician. es 21:19 Triage completed. ca1 21:21 Arm band placed on right wrist. ca1 21:25 Skyler Krause, FLACO is PHCP. pm1 21:25 Raimundo Pollack MD is Attending Physician. pm1 21:39 Justice King, JUDI is Primary Nurse. rv 21:50 Inserted saline lock: 20 gauge in right upper arm, using aseptic technique. Blood ds4 collected. 22:00 Bed in low position. Call light in reach. Side rails up X2. ea 22:36 Chest Single View XRAY In Process Unspecified. EDMS 07/21 00:15 No provider procedures requiring assistance completed. IV discontinued, intact, ea bleeding controlled, No redness/swelling at site. Pressure dressing applied. Administered Medications: 07/20 21:55 Drug: NS 0.9% 1000 ml Route: IV; Rate: 1000 ml; Site: right antecubital; ea 21:55 Drug: Zofran (Ondansetron) 4 mg Route: IVP; Site: right antecubital; ea 22:30 Follow up: Response: No adverse reaction ea 21:56 Drug: morphine 4 mg Route: IVP; Site: right antecubital; ea 22:30 Follow up: Response: No adverse reaction ea 07/21 00:13 Drug: traMADol 50 mg Route: PO; ea 00:13 Follow up: Response: Medication administered at discharge. ea Outcome: 00:00 Discharge ordered by . pm1 00:16 Discharged to home ambulatory. ea 00:16 Condition: stable 00:16 Discharge instructions given to patient, Instructed on discharge instructions, follow up and referral plans. medication usage, Demonstrated understanding of instructions, follow-up care, medications, Prescriptions given X 1. 00:19 Patient left the ED. ea Signatures: Dispatcher [employer] EDOH Angelica Herrera Donovan ds4 Skyler Krause NP NUTRITION SERVICES ASSOCIATE pm1 Lilly Jones RN RN ea Vicente, Ronaldo, RN RN Shanita Ballesteros RN RN ca1
[2020-07-21] MEDS ORDERED: TRAMADOL HCL 50 MG TAB ONE (00:22)
[2020-07-21 00:49] VITALS: O2SAT 99
[2020-07-21 00:52] VITALS: BP 128/68; TEMP 98.8
--- NOTE | 2020-07-21 08:00 | RAD REPORT ---
EXAM DESCRIPTION: RAD - Chest Single View - 07/20/2020 10:36 pm CLINICAL HISTORY: FEVER, headaches, household number COVID positive COMPARISON: Portable July 02 TECHNIQUE: AP portable chest image was obtained 07/20/2020 10:36 pm . FINDINGS: Lungs are clear. Heart and vasculature are normal. No measurable pleural effusion and no p neumothorax. No acute bony abnormality seen. No acute aortic findings suspected. IMPRESSION: No acute cardiopulmonary process. No significant change from comparison study.
== END 2020-07-21 00:19 | disposition home or self-care (01) ==
LOC: ER 21:04
DX: U07.1 COVID-19 (principal); R19.7 Diarrhea, unspecified; F31.9 Bipolar disorder, unspecified; Z88.5 Allergy status to narcotic agent
CPT/HCPCS: 87070; 85025; 36415; 87081; 80053; 0240U; 71045; 96375; 96374; 99284; J7030; J2405 ×2

== ENCOUNTER 2020-08-05 21:40 | Emergency (ER) | payer BC ==
--- NOTE | 2020-08-05 21:48 | ER ---
Nurse's Notes [facility] Name: Carla Duncan Age: 24 yrs Sex: Female : 1995 Arrival Date: 08/05/2020 Time: 21:41 Bed External Waiting Private MD: Diagnosis: ED Course: 08/05 21:41 Patient arrived in ED. cl3 Administered Medications: No medications were administered Outcome: 21:47 Patient left the ED. sg Signatures: Mark Muller RN RN Leonardo Womack cl3
--- OUTSIDE RECORDS SUMMARY | 2020-08-07 02:31 | XMS REPORT | Clinical Summary ---
:1995 Author Organization [facility] Address [address] [place] [address] Care Team Providers Name Role Phone Asked, [...] (six) hours as needed for mild pain. [id number] Take 2 tablets by 0 Active ilamine 500-60-15 mg mouth. tablet Active Problems No known active problems Surgical [...] Comments COVID-19 VACCINE (1 of 2) 2010 HEPATITIS C SCREENING 2012 CERVICAL CANCER SCREENING 09/17/2015 INFLUENZA VACCINE 01/27/2020 Results Not on fileafter 08/06/2019 Insurance Payer Benefit Plan / Subscriber ID Effective Dates Phone Addre ss Type Group MEDICAID MEDICAID [id number] 2016-Present [facility] Wakiesd BasisCode [facility] [id number] 2016-Presen HMO CHOICE [employer]/STAR JOB[employer] t CIGNA CIGNA OPEN [id number] 2016-Present HMO ACCESS/NETWORK BCBS BCBS CHOICE [id number] 2019-Prese P PO PPO/FEDERAL nt EMPL PPO BCBS BCBS CHOICE [id number] 2019-Presen PPO PPO/FEDERAL t EMPL PPO Advance Directives For more information, please contact: [phone] Type Date Recorded 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
--- OUTSIDE RECORDS SUMMARY | 2020-08-07 02:32 | XMS REPORT | Continuity of Care Document ---
:1995 Author Organization [facility] t Address [address] [place] [address] Care Team Providers Name Role Phone Asked, No Pcp Primary Care Physician Unavailable Ravi Cowart MD Attending Clinician Singer FERNÁNDEZ Attending Clinician KELSI Attending Clinician Unavailable Payers Payer Name Policy Type Policy Number Effective Date Expiration Date S ource Problems This patient has no known problems. Allergies, Adverse Reactions, Alerts Allergy Allergy Status Severity Reaction(s) Onset Inactive Treating Comm ents Source Name Type Date Date Clinician butorpha DA Active [facility] nol 2-04 [facility] [place] Butorpha Propensi Active Palpitations 2018-06 [place] nol ty to 2-25 Methodi Tartrate adverse 00:00: st reaction 00 s to drug morphine DA Active [facility] 1-19 [facility] [place] codeine DA Active DC [facility] 1[facility] [place] tramadol DA Active DC 2017-06 [facility] 2-31 [facility] [place] Tramadol Propensi Active Other (See headache Uvalda ty to Comments) 03-11 Methodi adverse 00:00: st reaction 00 s to drug Acetamin Propensi Active Shortness Of [place] ophen-Co ty to Breath 03-11 Methodi deine adverse 00:00: st reaction 00 s to drug No Known DA Active U [facility] Allergie 3-14 [facility] 00[facility]: [facility] [place] Family History Family Member Diagnosis Comments Start Date Stop Date Source [facility] Menstrual problems [place] [facility] Social History Social Habit Start Date Stop Date Quantity Comments Source Sex Assigned At [facility] ethodist Tobacco use and 2019-06-21 2019-06-21 Never used [facility] ethodist exposure 00:00:00 00:00:00 Alcohol intake 2019-06-21 2019-06-21 Current drinker [place] [facility] 00:00:00 00:00:00 of alcohol (finding) Alcohol Comment 2016-04-28 2016-04-28 social, weekly [place] [facility] 00:00:00 00:00:00 Smoking Status Start Date Stop Date Source Never smoker [facility] Medications Ordered Filled Start Stop Current Ordering [...] 2 [place] en-caff-pyr 2-25 tablets by [facility] thodi ilamine 17:05: mouth. st 500-60-15 17 mg tablet Procedures This patient has no known procedures. Plan of Care Planned Activity Planned Date Details Comments Source Future Scheduled 2020-01-27 INFLUENZA VACCINE [facility] 00:00:00 [code = INFLUENZA VACCINE] Future Scheduled 2015-09-17 Screening for [facility] 00:00:00 malignant neoplasm of cervix (procedure) [code = 090226690] Future Scheduled 2012 Hepatitis C [facility] Test 00:00:00 screening (procedure) [code = 163995278] Future Scheduled 2010 COVID-19 VACCINE (1 [place] [facility] Test 00:00:00 of 2) [code = COVID-19 VACCINE (1 of 2)] Encounters Start End Encounter Admission Attending Care Care Encounter Source Date/Time Date/Time Type Type Clinicians Facility Department ID 2020-07-17 2020-07-17 Emergency Austin Cowart [facility] [id number] 05:53:00 08:59:00 Dani Kauffman [id number] [place] [id number] [place] [id number] 2019-06-21 2019-06-[address] [facility] 064 [id number] [place] 00:00:00 00:00:[address] [place] [address] Results Test Description Test Time Test Comments Results Result Comments Source CHLAMYDIA GC DNA BY PCR 2020-08-06 14:24:00 Test Item Value Reference Range Interpretation Comme nts C. TRACHOMATIS DNA BY PCR (test Negative Negative code = CHLAMTDNA) N. GONORRHOEAE DNA BY PCR (test Negative Negative Performed At: [facility] James code = NGONORDNA) [id number] [address] [place], [place] [id number] Rodrigues MD Ph :[phone] - DUP AB/PEL/SC/[id number] 14:12:00 [facility] : 1995 Sex: F Patient Name: FATMATA DUNCAN Unit No: [id number] EXAMS: CPT CODE: [id number] DUP AB/PEL/SC/LTD 81147 PELVIC ULTRASOUND, 08/01/2020: COMPARISON: CT pelvis dated August 01, 2020 CLINICAL HISTORY: pain TECHNIQUE: Transabdominal and endovaginal scanning was performed. FINDINGS: The uterus measures 9.4 x 4.7 x 4.6 cm. The endometrial stripe measures 6 mm. Thereis a trace amount of fluid within the endocervical canal. No uterine fibroids were seen. The right ovary measures 3.2 x 2.5 x 3.0 cm and contains several follicles, the largest measuring 1.3 cm in size. Doppler flow is visualized in the right ovary. The left ovary measures 3.4 x 1.9 x1.4 cm and contains small subcentimeter follicles. Doppler flow is demonstrated in the left ovary. No free pelvic fluid noted. IMPRESSION: No acute abnormality identified. Bilateral ovarian follicles. at 1412 Reported and signed by: Joe Agudelo MD CC: Winter Mccollum MD; Austin Barrera Technologist: Alexandra Elder RDMS Probe: Trnscrbd D/ (1412) [email or web address] Orig Print D/T: S: 08/01/2020 (1415) [facility] NAME: FATMATA DUNCAN Radiology DepartmentPHYS: Winter Landaverde MD [address] : 1995 AGE: 24 SEX: F [place], [place] [address] LOC: SANDY PHONE #: [phone] EXAM DATE: 08/01/2020 STATUS: REG ER FAX #: [phone] RAD NO: Page 1 Signed Report Patient Name: FATMATA DUNCAN Unit No: [id number] EXAMS: CPT CODE: [id number] DUP AB/PEL/SC/LTD 26958 <Continued> The [facility] NAME: FATMATA DUNCAN Radiology Department PHYS: Winter Landaverde MD [address] : 1995 AGE: 24 SEX: F [place], [place] [address] LOC: SANDY PHONE #: [phone] DATE: 08/01/2020 STATUS: REG ER FAX #: [phone] RAD NO: Page 2 Signed Report- US TRANSVAGINAL [id number] 14:12:00[facility] 1995 Sex: F Patient Name: FATMATA DUNCAN Unit No: [id number] EXAMS: CPT CODE: [id number] US TRANSVAGINAL W/PELVIS 17774 PELVIC ULTRASOUND, 08/01/2020: COMPARISON: CT pelvis dated August 01, 2020 CLINICAL HISTORY: pain TECHNIQUE: Transabdominal and endovaginal scanning was performed. FINDINGS: The uterus measures 9.4 x 4.7 x 4.6 cm. The endometrial stripe measures 6 mm. Thereis a trace amount of fluid within the endocervical canal. No uterine fibroids were seen. The right ovary measures 3.2 x 2.5 x 3.0 cm and contains several follicles, the largest measuring 1.3 cm in size. Doppler flow is visualized in the right ovary. The left ovary measures 3.4 x 1.9 x1.4 cm and contains small subcentimeter follicles. Doppler flow is demonstrated in the left ovary. No free pelvic fluid noted. IMPRESSION: No acute abnormality identified. Bilateral ovarian follicles. at 1412 Reported and signed by: Joe Agudelo MD CC: Winter Mccollum MD; Austin Barrera Technologist: Alexandra Elder, MS Probe: [id number] Trnscrbd D/ (1412) [email or web address] Orig Print D/T: S: 08/01/2020 (1415) The [facility] [place] [facility] NAME: FATMATA DUNCAN Radiology DepartmentPHYS: ELLISSalimaWinter Ortiz MD [address] : 1995 AGE: 24 SEX: F [place] [address] LOC: ShaylaERS PHONE #: [phone] EXAM DATE: 08/01/2020 STATUS: REG ER FAX #: [phone] RAD NO: Page 1 Signed Report Patient Name: FATMATA DUNCAN Unit No: [id number] EXAMS: CPT CODE: [id number] US TRANSVAGINAL W/PELVIS 28147 <Continued> The [facility] [place] [facility] NAME: FATMATA DUNCAN Radiology Department PHYS: ELLISSalimaWinter Ortiz MD [address] : 1995 AGE: 24 SEX: F [place] [address] LOC: [place] PHONE #: [phone] DATE: 08/01/2020 STATUS: REG ER FAX #: [phone] RAD NO: Page 2 Signed Report- US PELVIS [id number] 14:12:00[facility] : 1995 Sex: F Patient Name: FATMATA DUNCAN Unit No: [id number] EXAMS: CPT CODE: [id number] US PELVIS COMPLETE 07657 PELVIC ULTRASOUND, 08/01/2020: COMPARISON: CT pelvis dated August 01, 2020 CLINICAL HISTORY: pain TECHNIQUE: Transabdominal and endovaginal scanning was performed. FINDINGS: The uterus measures 9.4 x 4.7 x 4.6 cm. The endometrial stripe measures 6 mm. Thereis a trace amount of fluid within the endocervical canal. No uterine fibroids were seen. The right ovary measures 3.2 x 2.5 x 3.0 cm and contains several follicles, the largest measuring 1.3 cm in size. Doppler flow is visualized in the right ovary. The left ovary measures 3.4 x 1.9 x1.4 cm and contains small subcentimeter follicles. Doppler flow is demonstrated in the left ovary. No free pelvic fluid noted. IMPRESSION: No acute abnormality identified. Bilateral ovarian follicles. at 1412 Reported and signed by: Joe Agudelo MD CC: Winter Mccollum MD; Austin Barrera Technologist: Alexandra Elder RDMS Probe: Trnscrbd D/ (1412) [email or web address] Orig Print D/T: S: 08/01/2020 (1415) [facility] NAME: FATMATA DUNCAN Radiology DepartmentPHYS: Winter Landaverde MD [address] : 1995 AGE: 24 SEX: F [place], [place] [address] LOC: SANDY PHONE #: [phone] EXAM DATE: 08/01/2020 STATUS: REG ER FAX #: [phone] RAD NO: Page 1 Signed Report Patient Name: FATMATA DUNCAN Unit No: [id number] EXAMS: CPT CODE: [id number] US PELVIS COMPLETE 31886 <Continued> The [facility] NAME: FATMATA DUNCAN Radiology Department PHYS: Winter Landaverde MD [address] : 1995 AGE: 24 SEX: F [place] [address] LOC: SANDY PHONE #: [phone] DATE: 08/01/2020 STATUS: REG ER FAX #: [phone] RAD NO: Page 2 Signed Report- CT ABD PELVIS W/O [id number] 10:58:00[facility] : 1995 Sex: F Patient Name: FATMATA DUNCAN Unit No: [id number] EXAMS: CPT CODE: [id number] CT ABD PELVIS W/O CONT 48727 CT ABDOMEN/CT STONE SURVEY WITHOUT CONTRAST, 08/01/2020 10:27 AM: COMPARISON: none CLINICAL HISTORY: bl back pain +blood in UA One or more of the following dose techniques were utilized; automated exposure control, adjustment of the mA and/or kV according to patient size, and/or utilization of iterative reconstruction technique. DLP: 653.43 mGy-cm. STONE PROTOCOL DISCLAIMER COMMENT: Please note that secondary to IV, gastrointestinal and rectal contrast not being administered, evaluation of the abdominal viscera, vascular structures, gastrointestinaltract, adjacent structures, etc, is limited. If there is any concern for clinical pathology in these locations and /or if patient has persistent unexplained symptoms, contrast CT is recommended for further evaluation. FINDINGS: There is a 6 mm nonspecific nodular density in the medial segment of the right middle lobe. No opaque renal calculi noted. No hydronephrosis. No opaque ure teral calculi and/or ureteral dilatation identified. Visualized portions of the liver, spleen, pancreas and adrenals appeared unremarkable. The gallbladder is present. No radiopaque gallstones or pericholecystic fluid noted. Abdominal aorta is normal in caliber. IMPRESSION: No opaque renal/ureteral calculi identified. Nonspecific 6 mm right middle lobe pulmonary nodule. The [facility] NAME: DUNCANFATMATA PHILLIP Radiology Department PHYS: Winter Wilkins MD [address] : 1995 AGE: 24 SEX: F [place], [place] [address] LOC: SANDY PHONE #: [phone] EXAM DATE: 08/01/2020 STATUS: REG ER FAX #:[phone] RAD NO: Page 1 Signed Report 1 Patient Name: FATMATA DUNCAN Unit No: [id number] EXAMS: CPT CODE: [id number] CT ABD PELVIS W/O CONT 20115 <Continued> CT PELVIS WITHOUT CONTRAST: No opaque ureteral calculi and/or ureteral dilatation noted in the pelvis. Visualizedbowel loops appear unremarkable without bowel wall thickening. No right lower quadrant inflammatory process noted. Uterus and ovaries are present. No free fluid or lymphadenopathy is seen. There is a small punctate calcification at the base of the cecum. Appendix was not visualized. However, no right lower quadrant inflammatory process was seen. IMPRESSION: No ureteral calculi identified. No acute pelvic abnormality identified. Please see above comments. at 1058 Reported and signed by: Joe Agudelo MD CC: Winter Mccollum MD; [facility] Technologist: Art Church, RT, CT CTDI: 13.28 DLP: 653.43 Trnscrbd D/ (1058) [email or web address].AJ13 The [facility] NAME: FATMATA DUNCAN Radiology Department PHYS: Winter Landaverde MD [address] : 1995 AGE: 24 SEX: F [place], [place] [address] LOC: [place].ERS PHONE #: [phone] EXAM DATE: 08/01/2020 STATUS: REG ER FAX #: [phone] RAD NO: Page 2 Signed Report 1 Patient Name: FATMATA DUNCAN Unit No: [id number] EXAMS: CPT CODE: [id number] CT ABD PELVIS W/O CONT 15938 <Continued> Orig Print D/T: S: 08/01/2020 (1101) [facility] NAME: FATMATA DUNCAN Radiology Department PHYS: Winter Landaverde MD [address] : 1995 AGE: 24 SEX: F [place], [place] [address] LOC: ShaylaERS PHONE #: [phone] EXAM DATE: 08/01/2020 STATUS: REG ER FAX #: [phone] RAD NO: Page 3 Signed Report 1UA RFLX MICR CULT IF [id number] 10:04:00 Test Item Value Reference Range Interpretation Comments UA COLOR (test code = COLU) YELLOW YELLOW UA APPEARANCE (test code = CLEAR CLEAR APPU) UA GLUCOSE DIPSTICK (test code NEGATIVE NEG = DGLUU) UA BILIRUBIN DIPSTICK (test NEGATIVE NEG code = BILU) UA KETONE DIPSTICK (test code NEGATIVE NEG = KETU) UA SPECIFIC GRAVITY (test code 1.015 1.001-1.035 N = SGU) UA BLOOD DIPSTICK (test code = 2+ NEG A TNIO) UA PH DIPSTICK (test code = 6.0 5-9 DANIELLA) UA PROTEIN DIPSTICK (test code NEGATIVE NEG = PROU) UA UROBILINIOGEN DIPSTICK NEGATIVE mg/dL NEG (test code = URO) UA NITRITE DIPSTICK (test code NEG NEG = ISELA) UA LEUKOCYTE ESTERASE DIPSTICK NEG NEG (test code = LEUU) UA WBC (test code = WBCU) 0-2 #/hpf NONE SEEN UA RBC (test code = RBCU) 3-5 #/hpf NONE SEEN A UA EPITHELIAL CELLS (test code RARE #/HPF RARE-FEW = EPIU) UA BACTERIA (test code = BACU) RARE /HPF RARE-FEW Indication for culture: Suprapubic PainSpecimen Description: CLEAN CATCHUR HCG [id number] 10:04:00 Test Item Value Reference Range Interpretation Comments UR HCG QUAL (test NEGATIVE 1. Very di lute urine code = HCGQLU) specimens, as indicated by a lowspecific g ravity, may not contain rep resentative levels ofhCG. 2 . False negative result s may occur when the levels of hCGare below the sensi tivity level of the test. If is still suspec jd, a first morningurine sp ecimen should be colle cted 48 hours later and tested. Indication for culture: Suprapubic PainSpecimen Description: CLEAN CATCHUA RFLX MICR CULT IF [id number] 10:03:00 Test Item Value Reference Range Interpretation Comments UA COLOR (test code = COLU) YELLOW YELLOW UA APPEARANCE (test code = CLEAR CLEAR APPU) UA GLUCOSE DIPSTICK (test code NEGATIVE NEG = DGLUU) UA BILIRUBIN DIPSTICK (test NEGATIVE NEG code = BILU) UA KETONE DIPSTICK (test code NEGATIVE NEG = KETU) UA SPECIFIC GRAVITY (test code 1.015 1.001-1.035 N = SGU) UA BLOOD DIPSTICK (test code = 2+ NEG A TINO) UA PH DIPSTICK (test code = 6.0 5-9 DANIELLA) UA PROTEIN DIPSTICK (test code NEGATIVE NEG = PROU) UA UROBILINIOGEN DIPSTICK NEGATIVE mg/dL NEG (test code = URO) UA NITRITE DIPSTICK (test code NEG NEG = ISELA) UA LEUKOCYTE ESTERASE DIPSTICK NEG NEG (test code = LEUU) UA WBC (test code = WBCU) 0-2 #/hpf NONE SEEN UA RBC (test code = RBCU) 3-5 #/hpf NONE SEEN A UA EPITHELIAL CELLS (test code RARE #/HPF RARE-FEW = EPIU) UA BACTERIA (test code = BACU) RARE /HPF RARE-FEW Indication for culture: Suprapubic PainSpecimen Description: CLEAN CATCHUR HCG [id number] 10:03:00 Test Item Value Reference Range Interpretation Comments UR HCG QUAL (test code = HCGQLU) Indication for culture: Suprapubic PainSpecimen Description: CLEAN CATCHCBC W/AUTO [id number] 07:27:00 Test Item Value Reference Range Interpretation [...] NORMAL code = PLTMR) AG HEPATITIS B [id number] 04:15:00 Test Item Value Reference Range Interpretation Comments AG HEPATITIS B SURFACE (test code NONREACTIVE NONREACTIVE = HBSAG) AB HEPATITIS C [id number] 04:15:00 Test Item Value Reference Range Interpretation Comments AB HEPATITIS C (test code = NONREACTIVE NONREACTIVE HCVAB) SIGNAL TO CUTOFF (test code = 0.13 <0.80 N CUTOFF) RUBELLA [id number] 04:15:00 Test Item Value Reference Range Interpretation Comments RUBELLA SCREEN 70.2 IUnit/ml Results >10. 0IUnits/ml (test code = are considered positive RUBSC) inaccordance wi th the CLSI guidelines and based on the O [employer] S tandard for Anti-Rubell a serum as anindicator of immune status and a br eakpoint to detect mostseropositiv e persons. AB [id number] 04:15:00 Test Item Value Reference Range Interpretation Comments AB TREPONEMA (test code = TREPAB) NONREACTIVE NONREACTIVE AG HEPATITIS B [id number] 04:00:00 Test Item Value Reference Range Interpretation Comments AG HEPATITIS B SURFACE (test code NONREACTIVE NONREACTIVE = HBSAG) AB HEPATITIS C [id number] 04:00:00 Test Item Value Reference Range Interpretation Comments AB HEPATITIS C (test code = HCVAB) NONREACTIVE SIGNAL TO CUTOFF (test code = CUTOFF) <0.80 RUBELLA [id number] 04:00:00 Test Item Value Reference Range Interpretation Comments RUBELLA SCREEN 70.2 IUnit/ml Results >10. 0IUnits/ml (test code = are considered positive RUBSC) inaccordance wi th the CLSI guidelines and based on the [place] S tandard for Anti-Rubell a serum as anindicator of immune status and a br eakpoint to detect mostseropositiv e persons. AB [id number] 04:00:00 Test Item Value Reference Range Interpretation Comments AB TREPONEMA (test code = TREPAB) NONREACTIVE NONREACTIVE CBC W/AUTO [id number] 00:36:00 Test Item Value Reference Range Interpretation [...]
== END 2020-08-05 21:47 | disposition left against medical advice (07) ==
LOC: ER 21:40
DX: R69 Illness, unspecified (principal); Z53.21 Procedure and treatment not carried out due to patient leaving prior to being seen by health care provider

== ENCOUNTER 2020-08-08 19:43 | Emergency (ER) | payer BC ==
[2020-08-08 20:30] LABS: Absolute Lymphocytes (CBC) 2.7 K/uL (0.7-4.9); Basophils % 0.5 % (0-1.3); Hematocrit 38.1 % (36.0-45.0); Lymphocytes % 29.1 % (15.3-44.8); MPV 7.6 fL (7.6-11.3); RBC Red Blood Cell Count 4.44 M/uL (3.86-4.86)
[2020-08-08 20:33] LABS: Urine Blood 1+ (NEG); Urine Glucose NEGATIVE (NEG); Urine Protein NEGATIVE (NEG)
[2020-08-08] MEDS ORDERED: NA CHLORIDE 0.9% 1,000 ML ONE (20:38)
[2020-08-08] MEDS ORDERED: MORPHINE 2 MG/ML SYR ONE (20:38)
[2020-08-08 20:48] LABS: ALT/SGPT 15 U/L (12-78); Albumin 3.8 g/dL (3.4-5.0); Alkaline Phosphatase 58 U/L (45-117); BUN Blood Urea Nitrogen 7 mg/dL (7-18); Bicarbonate 23 mmol/L (21-32); Bilirubin Direct < 0.1 mg/dL (0-0.2); Bilirubin Total 0.3 mg/dL (0.2-1.0); Glucose Level 90 mg/dL (74-106); Lipase 80 U/L (73-393); Potassium 3.7 mmol/L (3.5-5.1); Protein, Total 7.5 g/dL (6.4-8.2); Sodium Level 139 mmol/L (136-145)
[2020-08-08 20:49] LABS: AST/SGOT < 3 U/L (15-37)
[2020-08-08] MEDS ORDERED: FENTANYL CITR 100 MCG/2 ML ONE ×2 (20:50→22:42)
--- NOTE | 2020-08-08 21:16 | RAD REPORT ---
EXAM DESCRIPTION: CT - Abdomen Pelvis W Contrast - 08/08/2020 8:57 pm CLINICAL HISTORY: lower abdomen pain COMPARISON: CT imaging November 2019 TECHNIQUE: Biphasic, helical CT imaging of the abdomen and pelvis was performed following 100 ml non -ionic IV contrast. No oral contrast given. All CT scans are performed using dose optimization technique as appropriate and may include automated exposure control or mA/KV adjustment according to patient size. FINDINGS: No suspicious findings in the lung bases. The liver, spleen, and pancreas show no suspicious findings. Gallbladder and biliary tree are also wi thout suspicious finding. Symmetric renal function is seen with no hydronephrosis or suspicious renal mass. No pyelonephritis o r acute parenchymal process. No cystitis or urinary bladder abnormality identified. No adrenal abnorm alities. No uterine or left ovarian abnormality. Right ovary contains a 3.5 centimeter homogeneous fl uid attenuation cyst. No rupture or hemorrhage findings. No dilated bowel loops or bowel wall thickening. No free air, free fluid or inflammatory stranding. No hernia, mass or bulky lymphadenopathy. No suspicious bony findings. IMPRESSION: Contrast enhanced CT abdomen and pelvis showing no acute or emergent finding. A 3.5 centimeter right ovarian cyst is present. No other acute or significant or NEGATIVE TURNER finding.
--- NOTE | 2020-08-08 23:25 | EDPHYS ---
Physician Documentation [facility] Name: Carla Duncan Age: 24 yrs Sex: Female : 1995 Arrival Date: 08/08/2020 Time: 19:45 Bed 16 Private MD: ED Physician Michael Yuan HPI: 08/08 20:10 This 24 yrs old Female presents to ER via Ambulatory with complaints of cp Vaginal Pain. 20:10 The patient presents with pelvic pain, lower abdomen pain. cp 20:10 Onset: The symptoms/episode began/occurred 1.5 week(s) ago. cp 20:10 Associated signs and symptoms: Pertinent positives: nausea, vomiting, Pertinent cp negatives: diarrhea, fever, active vomiting. Patient describes pain as pressure and reports history of uterine prolapse. Patient report concern that uterine prolapse has worsened. Historical: - Allergies: 20:00 Stadol; em 20:00 Toradol; em 20:00 tramadol; em - PMHx: 20:00 Anxiety; Asthma; Bipolar disorder; Depression; Ovarian cyst; em - PSHx: 20:00 ; em - Immunization history:: Adult Immunizations up to date. - Social history:: Smoking status: Patient denies any tobacco usage or history of. ROS: 20:15 Constitutional: Negative for body aches, chills, fever, poor PO intake. cp 20:15 Eyes: Negative for injury, pain, redness, and discharge. cp 20:15 ENT: Negative for ear pain, sore throat, difficulty swallowing, difficulty handling secretions. 20:15 Cardiovascular: Negative for chest pain, palpitations. 20:15 Respiratory: Negative for cough, shortness of breath, wheezing. 20:15 Abdomen/GI: Positive for abdominal pain, nausea and vomiting, Negative for diarrhea, constipation, anorexia, black/tarry stool, rectal bleeding. 20:15 Back: Negative for pain at rest, pain with movement. 20:15 : Positive for pelvic pain, Negative for urinary symptoms, flank pain, vaginal bleeding. 20:15 Neuro: Negative for altered mental status, headache, weakness. 20:15 All other systems are negative. Exam: 20:20 Constitutional: The patient appears in no acute distress, alert, awake, non-toxic, well cp developed, well nourished. 20:20 Head/Face: Normocephalic, atraumatic. cp 20:20 Eyes: Periorbital structures: appear normal, Conjunctiva: normal, no exudate, no injection, Sclera: no appreciated abnormality, Lids and lashes: appear normal, bilaterally. 20:20 ENT: External ear(s): are unremarkable, Nose: is normal, Mouth: Lips: moist, Oral mucosa: moist, Posterior pharynx: Airway: no evidence of obstruction, patent. 20:20 Chest/axilla: Inspection: normal, Palpation: is normal, no crepitus, no tenderness. 20:20 Cardiovascular: Rate: normal, Rhythm: regular. 20:20 Respiratory: the patient does not display signs of respiratory distress, Respirations: normal, no use of accessory muscles, no retractions, labored breathing, is not present, Breath sounds: are clear throughout, no decreased breath sounds, no stridor, no wheezing. 20:20 Abdomen/GI: Inspection: abdomen appears normal, Bowel sounds: active, all quadrants, Palpation: soft, in all quadrants, moderate abdominal tenderness, in the suprapubic area, right lower quadrant and left lower quadrant, rebound tenderness, is not appreciated, voluntary guarding, is elicited in the suprapubic area, right lower quadrant and left lower quadrant. 20:20 Back: CVA tenderness, is absent. 20:20 Skin: no rash present. 23:00 : Pelvic Exam: External exam: is normal, Speculum exam: no bleeding is noted, no cp cervicitis, os that is closed, bimanual exam reveals cervical motion tenderness, uterine tenderness, no adnexa tenderness or masses bilaterally, discharge, white, a female car shifter was present for the exam, Sexual behavior: the patient is sexually active, and reports a single partner. Vital Signs: 19:20 BP 121 / 75; Pulse 95; Resp 18; Pain 10/10; cr4 19:57 BP 145 / 97; Pulse 93; Resp 18; Temp 98.6; Pulse Ox 100% on R/A; Weight 90.72 kg; em Height 5 ft. 0 in. (152.40 cm); Pain 10/10; 21:37 BP 121 / 83; Pulse 96; Resp 18; Temp 98.6; Pulse Ox 99% ; Pain 8/10; cr4 23:59 BP 108 / 54; Pulse 92; Resp 16; Temp 98.6; Pulse Ox 99% ; Pain 6/10; cr4 08/09 00:02 BP 123 / 79; Pulse 96; Resp 18; Pulse Ox 99% ; Pain 8/10; cr4 08/08 19:57 Body Mass Index 39.06 (90.72 kg, 152.40 cm) em MDM: 08/08 19:52 Patient medically screened. [facility] 23:25 Data reviewed: vital signs, nurses notes, lab test result(s), radiologic studies, CT cp scan, and as a result, I will discharge patient. 23:25 ED course: VSS. Pain improved with meds. CT abdomen/pelvis reviewed, labs reviewed. cp Will discharge to home for continued monitoring. 08/08 20:08 Order name: Basic Metabolic Panel; Complete Time: 21:01 cp 08/08 20:08 Order name: CBC with Diff; Complete Time: 21:01 cp 08/08 20:08 Order name: Hepatic Function; Complete Time: 21:01 cp 08/08 20:08 Order name: Lipase; Complete Time: 21:01 cp 08/08 20:20 Order name: Urine --Ancillary (enter results); Complete Time: 21:01 tt3 08/08 20:20 Order name: Urine Dipstick--Ancillary (enter results); Complete Time: 21:01 tt3 08/08 20:19 Order name: CT Abd/Pelvis - IV Contrast Only; Complete Time: 21:46 cp 08/08 21:03 Order name: GC (GONORR/CHLAMYDIA) Probe cp 08/08 21:03 Order name: Wet Prep cp 08/08 21:03 Order name: GC (Rashid/Chl) Probe CX/URE EDMS 08/08 21:03 Order name: Wet Prep; Complete Time: 23:17 EDMS 08/08 20:03 Order name: Urine Dipstick-Ancillary (obtain specimen); Complete Time: 20:20 cp 08/08 20:03 Order name: Urine Test (obtain specimen); Complete Time: 20:20 cp 08/08 20:08 Order name: IV Saline Lock; Complete Time: 20:20 cp 08/08 20:08 Order name: Labs collected and sent; Complete Time: 20:20 cp 08/08 21:03 Order name: Pelvic Exam Setup; Complete Time: 21:57 cp Administered Medications: 20:25 Drug: fentaNYL (PF) 25 mcg Route: IVP; Site: left antecubital; cr4 20:26 Drug: NS 0.9% 1000 ml Route: IV; Rate: 1 bolus; Site: left antecubital; cr4 20:32 Not Given (Physician Discretion): morphine 2 mg IVP once; (PAIN>8) RASS on ADMN: cp Combtv4, Very Agttd3, Agttd2, Rstlss1, AlertClm0, Drwsy-1, LtSdtn-2, ModSdtn-3, DpSdtn-4, UnArsble-5 x2 20:40 Drug: fentaNYL (PF) 25 mcg Route: IVP; Site: left antecubital; cr4 23:46 Drug: Rocephin 1 grams Route: IV; Rate: calculated rate; Site: left antecubital; cr4 08/09 00:03 Follow up: Response: No adverse reaction; IV Intake: 10ml cr4 08/08 23:53 Drug: Zofran (Ondansetron) 4 mg Route: PO; cr4 08/09 00:03 Follow up: Response: No adverse reaction cr4 Disposition: 08/08/20 23:25 Discharged to Home. Impression: Abdominal and pelvic pain, Other ovarian cysts. - Condition is Stable. - Discharge Instructions: Ovarian Cyst, Pelvic Pain, Female. - Prescriptions for Zofran 4 mg Oral Tablet - take 1 tablet by ORAL route every 12 hours As needed; 20 tablet. Doxycycline Hyclate 100 mg Oral Tablet - take 1 tablet by ORAL route every 12 hours; 20 tablet. Metronidazole 500 mg Oral Tablet - take 1 tablet by ORAL route every 8 hours; 30 tablet. Tramadol 50 mg Oral Tablet - take 1 tablet by ORAL route every 8 hours as needed; 12 tablet. - Medication Reconciliation Form, Thank You Letter, Antibiotic Education, Prescription Opioid Use form. - Follow up: Dana Arriaga MD; When: 2 - 3 days; Reason: Recheck today's complaints. Follow up: Dana Arriaga MD; When: 1 week; Reason: Recheck today's complaints. - Problem is new. - Symptoms have improved. Addendum: 08/11/2020 14:37 Co-signature as Attending Physician, Michael Yuan MD I agree with the assessment and c marcum plan of care. Signatures: Dispatcher [employer] Michael Rodrigez MD MD cha Munoz, Edgar, RN RN Farzana Balderrama RN RN cr4 Michael Dowd PA PA cp Corrections: (The following items were deleted from the chart) 08/09 00:03 08/08 23:25 08/08/2020 23:25 Discharged to Home. Impression: Abdominal and pelvic pain; cr4 Other ovarian cysts. Condition is Stable. Forms are Medication Reconciliation Form, Thank You Letter, Antibiotic Education, Prescription Opioid Use. Follow up: Dana Arriaga; When: 1 week; Reason: Recheck today's complaints. Problem is new. Symptoms have improved. cp
--- NOTE | 2020-08-08 23:25 | ER ---
Nurse's Notes [facility] Name: Carla Duncan Age: 24 yrs Sex: Female : 1995 Arrival Date: 08/08/2020 Time: 19:45 Bed 16 Private MD: Diagnosis: Abdominal and pelvic pain;Other ovarian cysts Presentation: 08/08 19:57 Chief complaint: Patient states: reports vaginal pain/pressure, N/V that started 1.5 em weeks ago, also reports painful urination, was told that she was at risk for a uterine prolapse by the [facility]. Coronavirus screen: Client denies travel out of the [place] in the last 14 days. Ebola Screen: Patient negative for fever greater than or equal to 101.5 degrees Fahrenheit, and additional compatible Ebola Virus Disease symptoms Patient denies exposure to infectious person. Patient denies travel to an Ebola-affected area in the 21 days before illness onset. No symptoms or risks identified at this time. Initial Sepsis Screen: Does the patient meet any 2 criteria? HR > 90 bpm. No. Patient's initial sepsis screen is negative. Does the patient have a suspected source of infection? No. Patient's initial sepsis screen is negative. Risk Assessment: Do you want to hurt yourself or someone else? Patient reports no desire to harm self or others. Onset of symptoms was August 08, 2020. 19:57 Method Of Arrival: Ambulatory em 19:57 Acuity: VENKATESH 3 em Historical: - Allergies: 20:00 Stadol; em 20:00 Toradol; em 20:00 tramadol; em - PMHx: 20:00 Anxiety; Asthma; Bipolar disorder; Depression; Ovarian cyst; em - PSHx: 20:00 ; em - Immunization history:: Adult Immunizations up to date. - Social history:: Smoking status: Patient denies any tobacco usage or history of. Screenin:22 Abuse screen: Denies threats or abuse. Nutritional screening: No deficits noted. cr4 Tuberculosis screening: No symptoms or risk factors identified. Fall Risk None identified. Assessment: 20:15 General: Appears uncomfortable, well groomed. Pain: Complains of pain in vaginal and cr4 pelvic pain Pain does not radiate. Pain currently is 10 out of 10 on a pain scale. Quality of pain is described as heavy, sharp, Pain began 2 weeks ago. Is continuous. Neuro: No deficits noted. Cardiovascular: No deficits noted. Respiratory: No deficits noted. GI: No deficits noted. : Reports pain in suprapubic area with urination. : Reports discharge, white, Denies. EENT: No deficits noted. Derm: No deficits noted. Musculoskeletal: No deficits noted. 20:25 Pain: Complains of pain in lower pelvic pain. Pain does not radiate. Pain currently is cr4 10 out of 10 on a pain scale. 21:22 Reassessment: Patient and/or family updated on plan of care and expected duration. Pain cr4 level reassessed. Patient is alert, oriented x 3, equal unlabored respirations, skin warm/dry/pink. Patient states feeling better. 22:42 Reassessment: Patient and/or family updated on plan of care and expected duration. Pain cr4 level reassessed. Patient is alert, oriented x 3, equal unlabored respirations, skin warm/dry/pink. Vital Signs: 19:20 BP 121 / 75; Pulse 95; Resp 18; Pain 10/10; cr4 19:57 BP 145 / 97; Pulse 93; Resp 18; Temp 98.6; Pulse Ox 100% on R/A; Weight 90.72 kg; em Height 5 ft. 0 in. (152.40 cm); Pain 10/10; 21:37 BP 121 / 83; Pulse 96; Resp 18; Temp 98.6; Pulse Ox 99% ; Pain 8/10; cr4 23:59 BP 108 / 54; Pulse 92; Resp 16; Temp 98.6; Pulse Ox 99% ; Pain 6/10; cr4 12 00:02 BP 123 / 79; Pulse 96; Resp 18; Pulse Ox 99% ; Pain 8/10; cr4 08/08 19:57 Body Mass Index 39.06 (90.72 kg, 152.40 cm) em ED Course: 08/08 19:45 Patient arrived in ED. ag3 19:50 Michael Dowd PA is PHCP. cp 19:50 Michael Yuan MD is Attending Physician. cp 19:59 Triage completed. em 20:00 Arm band placed on. em 20:14 Farzana Balderrama, RN is Primary Nurse. cr4 20:22 Assist provider with pelvic exam: Set up pelvic tray. Performed by Michael suarez4 Specimens sent to lab. Patient tolerated well. 20:57 CT Abd/Pelvis - IV Contrast Only In Process Unspecified. EDMS 21:22 Patient has correct armband on for positive identification. Placed in gown. Bed in low cr4 position. Side rails up X2. 21:51 Nurse Practitioner and/or Physician Web Press Roll Tender to see patient. cr4 23:23 Dana Arriaga MD is Referral Physician. cp 23:24 Referral Physician role handed off by Dana Arriaga MD cp 23:24 Dana Arriaga MD is Referral Physician. cp Administered Medications: 20:25 Drug: fentaNYL (PF) 25 mcg Route: IVP; Site: left antecubital; cr4 20:26 Drug: NS 0.9% 1000 ml Route: IV; Rate: 1 bolus; Site: left antecubital; cr4 20:32 Not Given (Physician Discretion): morphine 2 mg IVP once; (PAIN>8) RASS on ADMN: cp Combtv4, Very Agttd3, Agttd2, Rstlss1, AlertClm0, Drwsy-1, LtSdtn-2, ModSdtn-3, DpSdtn-4, UnArsble-5 x2 20:40 Drug: fentaNYL (PF) 25 mcg Route: IVP; Site: left antecubital; cr4 23:46 Drug: Rocephin 1 grams Route: IV; Rate: calculated rate; Site: left antecubital; cr4 08/09 00:03 Follow up: Response: No adverse reaction; IV Intake: 10ml cr4 08/08 23:53 Drug: Zofran (Ondansetron) 4 mg Route: PO; cr4 08/09 00:03 Follow up: Response: No adverse reaction cr4 Intake: 00:03 IV: 10ml; Total: 10ml. cr4 Outcome: 08/08 23:25 Discharge ordered by . cp 08/09 00:03 Patient left the ED. cr4 Signatures: Dispatcher [employer] EDMS Liang Nunez RN RN em Ruiz, Claudia, RN RN cr4 Michael Dowd PA PA cp Gomez, Alice ag3
[2020-08-08] MEDS ORDERED: CEFTRIAXONE/SWI 1gm 1 GM/10 ML SYR ONE (23:50)
[2020-08-09] MEDS ORDERED: ONDANSETRON 4 MG (ODT) TAB ONE (00:05)
[2020-08-09 00:16] VITALS: TEMP 98.6
[2020-08-09 00:17] VITALS: O2SAT 99
[2020-08-09 00:20] VITALS: BP 123/79
[2020-08-13 22:37] LABS: C.trachomatis RNA,TMA Not Detected (Not Detected)
== END 2020-08-09 00:03 | disposition home or self-care (01) ==
LOC: ER 19:43
DX: N83.299 Other ovarian cyst, unspecified side (principal); Z88.5 Allergy status to narcotic agent
CPT/HCPCS: 85025; 80048; 36415; 81025; 80076; 87210; 81003; 83690; 87590; 87490; 74177; 96375; 96374; 99284; Q9967; J3010 ×2; J0696; J7030; J2270

== ENCOUNTER 2020-11-17 15:43 | Emergency (ER) | payer BC, OTHER ==
--- OUTSIDE RECORDS SUMMARY | 2020-11-17 15:47 | XMS REPORT | Continuity of Care Document ---
:1995 Author Organization [facility] t Address [address] [place] [address] Care Team Providers Name Role Phone Asked, Pcp Primary Care Physician Unavailable Lluvia Rice Attending Clinician Supa AREVALO E Attending Clinician Singer FERNÁNDEZ Attending Clinician KELSI Attending Clinician Unavailable Payers Payer Name Policy Type Policy Number Effective Date Expiration Date S ource Problems This patient has no known problems. Allergies, Adverse Reactions, Alerts Allergy Allergy Status Severity Reaction(s) Onset Inactive Treating Comm ents Source Name Type Date Date Clinician aidanorphcortez DA Active MO [facility] nol 2-04 [facility] [place] Butorpha Propensi Active Palpitations 2018-06 [place] nol ty to 2-25 Methodi Tartrate adverse 00:00: st reaction 00 s to drug morphine DA Active U [facility] 1-19 [facility] [place] codeine DA Active [place] [facility] 1[facility]19 [facility] [place] tramadol DA Active SD 2017-06 [facility] 2-31 [facility] [place] Tramadol Propensi Active Other (See headache [place] ty to Comments) 03-11 Methodi adverse 00:00: st reaction 00 s to drug Acetamin Propensi Active Shortness Of [place] ophen-Co ty to Breath 03-11 Methodi deine adverse 00:00: st reaction 00 s to drug No Known DA Active U [facility] Allergie 3- [facility] [place] Family History Family Member Diagnosis Comments Start Date Stop Date Source Natural mother Diabetes [facility] thodist Natural mother Menstrual problems [place] [facility] Social History Social Habit Start Date Stop Date Quantity Comments Source Tobacco use and 2019-06-21 2019-06-21 Never used [facility] ethodist exposure 00:00:00 00:00:00 Alcohol intake 2019-06-21 2019-06-21 Current drinker [place] [facility] 00:00:00 00:00:00 of alcohol (finding) Alcohol Comment 2016-04-28 2016-04-28 social, weekly [place] [facility] 00:00:00 00:00:00 Sex Ass[birth year] At [birth year] [facility] ethodist 00:00:00 00:00:00 Smoking Status Start Date Stop Date Source Never smoker [place] [facility] t Medications Ordered Filled Start Stop [...] 2 [place] en-caff-pyr 2-25 tablets by Ak thodi ilamine 17:05: mouth. st 500-60-15 17 mg tablet Procedures This patient has no known procedures. Plan of Care Planned Activity Planned Date Details Comments Source Future Scheduled 2021-01-26 INFLUENZA VACCINE [place] [facility] Test 00:00:00 [code = INFLUENZA VACCINE] Future Scheduled 2015-09-17 Screening for [facility] thodist Test 00:00:00 malignant neoplasm of cervix (procedure) [code = 976393139] Future Scheduled 2012 Hepatitis C [facility]odist Test 00:00:00 screening (procedure) [code = 271630024] Future Scheduled 2006 COVID-19 VACCINE (1) [facility]ia [facility]a [facility] Test 00:00:00 [code = COVID-19 VACCINE (1)] Encounters Start End Encounter Admission Attending Care Care Encounter Source Date/Time Date/Time Type Type Clinicians Facility Department ID 2020-09-26 2020-09-26 Emergency Tricia Simmons [facility] [id number] 18:51:00 22:39:00 Lluvia Mejia [id number] [place] [id number] [place] [id number] 2020-07-17 2020-07-17 Emergency Austin Cowart [facility] [id number] 05:53:00 08:59:00 Dani Kauffman [id number] [place] 4.2.7.2.686 [place] [id number] 2019-06-21 2019-06-21 Emergency KELSI [facility] [id number] [place] 00:00:00 00:00:00 [place] [address] Results Test Description Test Time Test Comments Results Result Comments Source CHLAMYDIA GC DNA BY PCR 2020-08-06 14:24:00 Test Item Value Reference Range Interpretation Comme nts C. TRACHOMATIS DNA BY PCR (test Negative Negative code = CHLAMTDNA) N. GONORRHOEAE DNA BY PCR (test Negative Negative Performed At: [facility] code = NGONORDNA) [id number] [place], [place] [id number] Rodrigues MD Ph :[phone] - DUP AB/PEL/SC/[id number] 14:12:00 [facility] 1995 Sex: F Patient Name: FATMATA DEGROOT Unit No: [id number] EXAMS: CPT CODE: [id number] DUP AB/PEL/SC/LTD 31623 PELVIC ULTRASOUND, 08/01/2020: COMPARISON: CT pelvis dated [...] Alexandra Elder RDMS Probe: Trnscrbd D/ (1412) [email or web address] Orig Print D/T: S: 08/01/2020 (1415) [facility] NAME: FATMATA DEGROOT Radiology DepartmentPHYS: CANALJeffrey Winter Mccollum MD [address] : 1995 AGE: 24 SEX: F [place], [place] [address] LOC: ShaylaERS PHONE #: [phone] EXAM DATE: 08/01/2020 STATUS: REG ER FAX #: [phone] RAD NO: Page 1 Signed Report Patient Name: FATMATA DEGROOT Unit No: [id number] EXAMS: CPT CODE: [id number] DUP AB/PEL/SC/LTD 52597 <Continued> [facility] NAME: FATMATA DEGROOT Radiology Department PHYS: CANALWinter Murray MD [address] : 1995 AGE: 24 SEX: F [place], [place] [address] LOC: SANDY PHONE #: [phone] DATE: 08/01/2020 STATUS: REG ER FAX #: [phone] RAD NO: Page 2 Signed Report- US TRANSVAGINAL [id number] 14:12:00[facility] [place] [facility] : 1995 Sex: F Patient Name: FATMATA DEGROOT Unit No: [id number] EXAMS: CPT CODE: [id number] US TRANSVAGINAL W/PELVIS 59985 PELVIC ULTRASOUND, 08/01/2020: COMPARISON: CT pelvis dated [...] Austin Barrera Technologist: Alexandra Elder RDMS Probe: [id number] Trnscrbd D/ (1412) [id number].[email or web address] Orig Print D/T: S: 08/01/2020 (1415) [facility] NAME: DEGROOT,FATMATA Radiology DepartmentPHYS: Winter Landaverde MD [address] : 1995 AGE: 24 SEX: F [place] [address] LOC: ShaylaERS PHONE #: [phone] EXAM DATE: 08/01/2020 STATUS: REG ER FAX #: [phone] RAD NO: Page 1 Signed Report Patient Name: FATMATA DEGROOT Unit No: [id number] EXAMS: CPT CODE: [id number] US TRANSVAGINAL W/PELVIS 75609 <Continued> [facility] NAME: FATMATA DEGROOT Radiology Department PHYS: Winter Landaverde MD [address] : 1995 AGE: 24 SEX: F [place] [address] LOC: ShaylaERS PHONE #: [phone] DATE: 08/01/2020 STATUS: REG ER FAX #: [phone] RAD NO: Page 2 Signed Report- US PELVIS [id number] 14:12:00[facility] : 1995 Sex: F Patient Name: FATMATA DEGROOT Unit No: [id number] EXAMS: CPT CODE: [id number] US PELVIS COMPLETE 28928 PELVIC ULTRASOUND, 08/01/2020: COMPARISON: CT pelvis dated [...] Alexandra Elder RDMS Probe: Trnscrbd D/ (1412) LuisR.[email or web address] Orig Print D/T: S: 08/01/2020 (1415) [facility] NAME: FATMATA DEGROOT Radiology DepartmentPHYS: CANAL. Winter Mccollum MD [address] : 1995 AGE: 24 SEX: F [place] [address] LOC: ShaylaERS PHONE #: [phone] EXAM DATE: 08/01/2020 STATUS: REG ER FAX #: [phone] RAD NO: Page 1 Signed Report Patient Name: FATMATA DEGROOT Unit No: [id number] EXAMS: CPT CODE: [id number] US PELVIS COMPLETE 39491 <Continued> [facility] NAME: FATMATA DEGROOT Radiology Department PHYS: CANALWinter Murray MD [address] : 1995 AGE: 24 SEX: F [place] [address] LOC: SANDY PHONE #: [phone] DATE: 08/01/2020 STATUS: REG ER FAX #: [phone] RAD NO: Page 2 Signed Report- CT ABD PELVIS W/O [id number] 10:58:00[facility] [place] [facility] : 1995 Sex: F Patient Name: FATMATA DEGROOT Unit No: [id number] EXAMS: CPT CODE: [id number] CT ABD PELVIS W/O CONT 67056 CT ABDOMEN/CT STONE SURVEY WITHOUT CONTRAST, 08/01/2020 [...] mm right middle lobe pulmonary nodule. [facility] NAME: FATMATA DEGROOT Radiology Department PHYS: Winter Landaverde MD [address] : 1995 AGE: 24 SEX: F [place], [place] [address] LOC: SANDY PHONE #: [phone] EXAM DATE: 08/01/2020 STATUS: REG ER FAX #:[phone] RAD NO: Page 1 Signed Report 1 Patient Name: FATMATA DEGROOT Unit No: [id number] EXAMS: CPT CODE: [id number] CT ABD PELVIS W/O CONT 20230 <Continued> CT PELVIS WITHOUT CONTRAST: No opaque [...] Joe Agudelo MD CC: Winter Mccollum MD; Mary Technologist: Art Church, RT, CT CTDI: 13.28 DLP: 653.43 Trnscrbd D/ (1058) [email or web address] [facility] NAME: FATMATA DEGROOT Radiology Department PHYS: [facility] ACCESS HOSPITALJay Winter Wilkins MD [address] : 1995 AGE: 24 SEX: F [place] [address] LOC: ShaylaERS PHONE #: [phone] EXAM DATE: 08/01/2020 STATUS: REG ER FAX #: [phone] RAD NO: Page 2 Signed Report 1 Patient Name: FATMATA DEGROOT Unit No: [id number] EXAMS: CPT CODE: [id number] CT ABD PELVIS W/O CONT 71282 <Continued> Orig Print D/T: S: 08/01/2020 (1101) [facility] NAME: FATMATA DEGROOT Radiology Department PHYS: [facility] Winter Mccollum MD [address] : 1995 AGE: 24 SEX: F [place] [address] LOC: ShaylaERS PHONE #: [phone] EXAM DATE: 08/01/2020 STATUS: REG ER FAX #: [phone] RAD NO: Page 3 Signed Report 1UA RFLX MICR CULT IF [id number] 10:04:00 Test Item Value Reference Range Interpretation [...] culture: Suprapubic PainSpecimen Description: CLEAN CATCHUR HCG [id number] 10:04:00 Test Item Value Reference Range Interpretation [...] Description: CLEAN CATCHUA RFLX MICR CULT IF [id number] 10:03:00 Test Item Value Reference Range Interpretation [...] culture: Suprapubic PainSpecimen Description: CLEAN CATCHUR HCG [id number] 10:03:00 Test Item Value Reference Range Interpretation Comments UR HCG QUAL (test code = HCGQLU) Indication for culture: Suprapubic PainSpecimen Description: CLEAN CATCHCBC W/AUTO [id number] 07:27:00 Test Item Value Reference Range Interpretation [...] NORMAL code = PLTMR) AG HEPATITIS B [id number] 04:15:00 Test Item Value Reference Range Interpretation Comments AG HEPATITIS B SURFACE (test code NONREACTIVE NONREACTIVE = HBSAG) AB HEPATITIS C [id number] 04:15:00 Test Item Value Reference Range Interpretation Comments AB HEPATITIS C (test code = NONREACTIVE NONREACTIVE HCVAB) SIGNAL TO CUTOFF (test code = 0.13 <0.80 N CUTOFF) RUBELLA [id number] 04:15:00 Test Item Value Reference Range Interpretation Comments RUBELLA SCREEN 70.2 IUnit/ml Results >10. 0IUnits/ml (test code = are considered positive RUBSC) inaccordance wi th the CLSI guidelines and based on the [employer] S tandard for Anti-Rubell a serum as anindicator of immune status and a br eakpoint to detect mostseropositiv e persons. AB [id number] 04:15:00 Test Item Value Reference Range Interpretation Comments AB TREPONEMA (test code = TREPAB) NONREACTIVE NONREACTIVE AG HEPATITIS B [id number] 04:00:00 Test Item Value Reference Range Interpretation Comments AG HEPATITIS B SURFACE (test code NONREACTIVE NONREACTIVE = HBSAG) AB HEPATITIS C [id number] 04:00:00 Test Item Value Reference Range Interpretation Comments AB HEPATITIS C (test code = HCVAB) NONREACTIVE SIGNAL TO CUTOFF (test code = CUTOFF) <0.80 RUBELLA [id number] 04:00:00 Test Item Value Reference Range Interpretation Comments RUBELLA SCREEN 70.2 IUnit/ml Results >10. 0IUnits/ml (test code = are considered positive RUBSC) inaccordance wi th the CLSI guidelines and based on the [employer] S tandard for Anti-Rubell a serum as anindicator of immune status and a br eakpoint to detect mostseropositiv e persons. AB [id number] 04:00:00 Test Item Value Reference Range Interpretation Comments AB TREPONEMA (test code = TREPAB) NONREACTIVE NONREACTIVE CBC W/AUTO [id number] 00:36:00 Test Item Value Reference Range Interpretation [...]
[2020-11-17 16:16] LABS: Urine Blood 1+ (Negative); Urine Glucose Negative (Negative); Urine Protein Negative (Negative); Urine pH 6.5 (5.0-7.0)
[2020-11-17 16:38] LABS: Urine Bacteria <20 /HPF (<20); Urine RBC <5 /HPF (NONE SEEN)
[2020-11-17] MEDS ORDERED: HYDROCODONE/APAP 7.5/325 MG TAB ONE ×2 (16:57→17:58)
[2020-11-17] MEDS ORDERED: MORPHINE 4 MG/ML SYR ONE (16:59)
[2020-11-17] MEDS ORDERED: NA CHLORIDE 0.9% 1,000 ML ONE (16:59)
[2020-11-17 17:02] LABS: Absolute Lymphocytes (CBC) 2.9 K/uL (0.7-4.9); Basophils % 0.7 % (0-1.3); Hematocrit 39.7 % (36.0-45.0); MPV 7.9 fL (7.6-11.3); RBC Red Blood Cell Count 4.55 M/uL (3.86-4.86)
[2020-11-17 17:18] LABS: Potassium 4.2 mmol/L (3.5-5.1)
[2020-11-17] MEDS ORDERED: ONDANSETRON 4 MG/2 ML VIAL ONE (17:20)
--- NOTE | 2020-11-17 17:20 | RAD REPORT ---
EXAM DESCRIPTION: CT - Stone Protocol - 11/17/2020 4:59 pm CLINICAL HISTORY: Abdominal pain. COMPARISON: July 2020 TECHNIQUE: Computed axial tomography of the abdomen pelvis was obtained without oral or IV contrast. Lack of IV and oral contrast limits evaluation of solid organs, bowel, and vessels. Coronal reformat jd images were obtained and reviewed. All CT scans are performed using dose optimization technique as appropriate and may include automated exposure control or mA/KV adjustment according to patient size. FINDINGS: A renal calculus is not seen. An ureteral calculus is not noted. A bladder calculus is not present. The liver, spleen, pancreas and adrenals appear grossly normal There is no evidence of diverticulitis. The appendix appears normal Tiny umbilical hernia. No adnexal masses IMPRESSION: Negative for a genitourinary calculus
--- NOTE | 2020-11-17 17:42 | ER ---
Nurse's Notes [facility] Name: Carla Duncan Age: 25 yrs Sex: Female : 1995 Arrival Date: 11/17/2020 Time: 15:48 Bed 14 Private MD: Aurelio La Diagnosis: Flank Pain;Dysuria Presentation: 11/17 15:53 Chief complaint: Patient states: Patient states she has had sharp pain to the lower ae4 left flank and pain upon urination in the urethra and suprapubic area. Pt describes pain "spasmy". Coronavirus screen: Client denies travel out of the [place] in the last 14 days. At this time, the client does not indicate any symptoms associated with coronavirus-19. Ebola Screen: Patient denies travel to an Ebola-affected area in the 21 days before illness onset. No symptoms or risks identified at this time. 15:53 Method Of Arrival: Ambulatory ae4 15:53 Acuity: VENKATESH 3 ae4 Triage Assessment: 15:56 General: Appears distressed, uncomfortable, Behavior is cooperative, crying. Pain: ae4 Complains of pain in right mid back and right low back Pain currently is 10 out of 10 on a pain scale. Neuro: Level of Consciousness is awake, alert, obeys commands, Oriented to person, place, time, situation, Appropriate for age. Respiratory: Airway is patent Respiratory effort is even, unlabored. GI: Abdomen is round. 16:01 GI: Reports nausea. ae4 16:01 Pain: Pain radiates to suprapubic area and right lower quadrant. ae4 Historical: - Allergies: 16:00 Stadol; ae4 16:00 Toradol; ae4 16:00 tramadol; ae4 - Home Meds: 16:00 xanax PRN [Active]; Ambien 5 mg Oral tab [Active]; trazodone 100 mg Oral tab 1 tab 1 ae4 time a day [Active]; phentermine 37.5 mg oral cap 1 cap once daily [Active]; - PMHx: 16:00 Ovarian cyst; Depression; Bipolar disorder; Asthma; Anxiety; ae4 - PSHx: 16:05 ; ae4 - Immunization history:: Adult Immunizations up to date, Client reports having NOT received the Covid vaccine. - Social history:: Smoking status: Patient denies any tobacco usage or history of. Screenin:15 Abuse screen: Denies threats or abuse. Denies injuries from another. Nutritional tr6 screening: No deficits noted. Tuberculosis screening: No symptoms or risk factors identified. Fall Risk None identified. Assessment: 18:13 General: Appears distressed, uncomfortable, Behavior is calm, cooperative, appropriate tr6 for age. Pain: Complains of pain in RLQ radiating to right lower back. Neuro: No deficits noted. Cardiovascular: No deficits noted. Respiratory: No deficits noted. GI: No deficits noted. Bowel sounds present X 4 quads. Abdomen is tender to palpation. : No deficits noted. : Reports burning with urination, pain with urination. EENT: No signs and/or symptoms were reported regarding the EENT system. EENT: No deficits noted. Derm: No deficits noted. Musculoskeletal: No deficits noted. Vital Signs: 15:53 BP 120 / 87; Pulse 116; Resp 22; Temp 97.7; Pulse Ox 100% on R/A; Weight 92.08 kg (R); ae4 Pain 10/10; ED Course: 15:48 Patient arrived in ED. mr 15:48 Aurelio La MD is Private Physician. mr 15:49 [facility] Maynard [facility]-C [facility] kb 15:49 April Alexander MD is Attending Physician. kb 15:56 Triage completed. ae4 16:02 Reena Farley, JUDI is Primary Nurse. tr6 16:59 CT Stone Protocol In Process Unspecified. EDMS 18:15 Patient has correct armband on for positive identification. Bed in low position. Call tr6 light in reach. Side rails up X 1. 18:15 No provider procedures requiring assistance completed. IV discontinued, intact, tr6 bleeding controlled, No redness/swelling at site. Pressure dressing applied. Administered Medications: 17:02 Drug: NS 0.9% 1000 ml Route: IV; Rate: 1000 ml; Site: right antecubital; tr6 17:03 CANCELLED (Patient Refused): [place] (HYDROcodone-acetaminophen) (7.5 mg-325 mg) 1 tabs tr6 PO once; RASS on ADMIN: Combtv4, Very Agttd3, Agttd2, Rstlss1, AlertClm0, Drwsy-1, Lt Sdtn-2, Mod Sdtn-3, Dp Sdtn-4, UnArsble-5 17:03 Drug: morphine 4 mg Route: IVP; Site: right antecubital; tr6 17:37 Follow up: Response: Pain is unchanged, physician notified tr6 17:12 Drug: Zofran (Ondansetron) 4 mg Route: IVP; Site: left antecubital; tr6 17:41 Follow up: Response: No adverse reaction tr6 17:41 Drug: [place] (HYDROcodone-acetaminophen) (7.5 mg-325 mg) 1 tabs Route: PO; tr6 17:56 Follow up: Response: No adverse reaction tr6 18:02 Drug: Pyridium (phenazopyridine) 200 mg Route: PO; tr6 Outcome: 17:41 Discharge ordered by . kb 18:15 Discharged to home ambulatory. tr6 18:15 Condition: stable 18:15 Discharge instructions given to patient, Instructed on discharge instructions, follow up and referral plans. no drinking with medication, medication usage, safety practices, Demonstrated understanding of instructions, follow-up care, medications, Prescriptions given X 2. 18:16 Patient left the ED. tr6 Signatures: Dispatcher [employer] EDMS Francie Maynard, KASSIE CHANCE-Kathryn Vásquez Andrea, RN RN ae4 Reena Farley RN RN tr6
--- NOTE | 2020-11-17 17:42 | EDPHYS ---
Physician Documentation [facility] Name: Carla Duncan Age: 25 yrs Sex: Female : 1995 Arrival Date: 11/17/2020 Time: 15:48 Bed 14 Private MD: Aurelio La ED Physician April Alexander HPI: 11/17 20:41 This 25 yrs old Female presents to ER via Ambulatory with complaints of kb Abdominal Pain, Back Pain, Urinary Problem. 20:42 The patient presents with flank pain, on the right, urinary symptoms, dysuria. Onset: kb The symptoms/episode began/occurred yesterday. Modifying factors: The symptoms are alleviated by nothing, the symptoms are aggravated by urinating. Associated signs and symptoms: Pertinent positives: dysuria, Pertinent negatives: fever. Severity of symptoms: At their worst the symptoms were moderate, in the emergency department the symptoms are unchanged. The patient has not experienced similar symptoms in the past. The patient has not recently seen a physician. Pt reports suprapubic pain and right flank pain that is intermittent. States the pain feels like it starts in kidney and travels down. Reports burning with urination. After urination the pain stop completely. Historical: - Allergies: 16:00 Stadol; ae4 16:00 Toradol; ae4 16:00 tramadol; ae4 - Home Meds: 16:00 xanax PRN [Active]; Ambien 5 mg Oral tab [Active]; trazodone 100 mg Oral tab 1 tab 1 ae4 time a day [Active]; phentermine 37.5 mg oral cap 1 cap once daily [Active]; - PMHx: 16:00 Ovarian cyst; Depression; Bipolar disorder; Asthma; Anxiety; ae4 - PSHx: 16:05 ; ae4 - Immunization history:: Adult Immunizations up to date, Client reports having NOT received the Covid vaccine. - Social history:: Smoking status: Patient denies any tobacco usage or history of. ROS: 20:41 Constitutional: Negative for fever, chills, and weight loss. kb 20:41 Abdomen/GI: Positive for abdominal pain. 20:41 : Positive for flank pain, burning with urination. 20:41 All other systems are negative. Exam: 20:40 Constitutional: This is a well developed, well nourished patient who is awake, alert, kb and in no acute distress. ENT: Moist Mucous membranes Respiratory: Respirations even and unlabored. No increased work of breathing, no retractions or nasal flaring. Skin: Warm, dry with normal turgor. Normal color. MS/ Extremity: Pulses equal, no cyanosis. Neurovascular intact. Full, normal range of motion. Neuro: Awake and alert, GCS 15, oriented to person, place, time, and situation. Moves all extremities. Normal gait. Psych: Awake, alert, with orientation to person, place and time. Behavior, mood, and affect are within normal limits. 20:40 Eyes: Periorbital structures: appear normal. 20:40 Abdomen/GI: Inspection: obese Bowel sounds: normal, Palpation: abdomen is soft and non-tender, in all quadrants. Vital Signs: 15:53 BP 120 / 87; Pulse 116; Resp 22; Temp 97.7; Pulse Ox 100% on R/A; Weight 92.08 kg (R); ae4 Pain 10/10; MDM: 16:06 Patient medically screened. kb 20:40 Data reviewed: vital signs, nurses notes. Data interpreted: Pulse oximetry: on room air kb is 100 %. Interpretation: normal. Counseling: I had a detailed discussion with the patient and/or guardian regarding: the historical points, exam findings, and any diagnostic results supporting the discharge/admit diagnosis, lab results, radiology results, the need for outpatient follow up, a family practitioner, to return to the emergency department if symptoms worsen or persist or if there are any questions or concerns that arise at home. 11/17 15:59 Order name: Urine Microscopic Only; Complete Time: 16:41 kb 11/17 16:16 Order name: Urine Dipstick-Ancillary EDMS 11/17 16:17 Order name: Urine --Ancillary (enter results) em1 11/17 16:18 Order name: Urine --Ancillary; Complete Time: 16:41 EDMS 11/17 16:41 Order name: CBC with Diff; Complete Time: 17:23 kb 11/17 16:41 Order name: Basic Metabolic Panel; Complete Time: 17:19 kb 11/17 15:59 Order name: Urine Test (obtain specimen); Complete Time: 16:16 kb 05/23 16:35 Order name: CT Stone Protocol; Complete Time: 17:23 vg1 11/17 15:59 Order name: Urine Dipstick-Ancillary (obtain specimen); Complete Time: 16:16 kb 11/17 16:41 Order name: IV Start; Complete Time: 16:41 kb Administered Medications: 17:02 Drug: NS 0.9% 1000 ml Route: IV; Rate: 1000 ml; Site: right antecubital; tr6 17:03 CANCELLED (Patient Refused): [place] (HYDROcodone-acetaminophen) (7.5 mg-325 mg) 1 tabs tr6 PO once; RASS on ADMIN: Combtv4, Very Agttd3, Agttd2, Rstlss1, AlertClm0, Drwsy-1, Lt Sdtn-2, Mod Sdtn-3, Dp Sdtn-4, UnArsble-5 17:03 Drug: morphine 4 mg Route: IVP; Site: right antecubital; tr6 17:37 Follow up: Response: Pain is unchanged, physician notified tr6 17:12 Drug: Zofran (Ondansetron) 4 mg Route: IVP; Site: left antecubital; tr6 17:41 Follow up: Response: No adverse reaction tr6 17:41 Drug: [place] (HYDROcodone-acetaminophen) (7.5 mg-325 mg) 1 tabs Route: PO; tr6 17:56 Follow up: Response: No adverse reaction tr6 18:02 Drug: Pyridium (phenazopyridine) 200 mg Route: PO; tr6 Disposition: 11/17/20 17:41 Discharged to Home. Impression: Flank Pain, Dysuria. - Condition is Stable. - Discharge Instructions: Dysuria, Flank Pain, Gojo-hj-Psfd. - Prescriptions for Pyridium 200 mg Oral Tablet - take 1 tablet by ORAL route every 8 hours for 3 days; 9 tablet. Tramadol 50 mg Oral Tablet - take 1 tablet by ORAL route every 8 hours as needed; 12 tablet. - Medication Reconciliation Form, Thank You Letter, Antibiotic Education, Prescription Opioid Use form. - Follow up: Emergency Department; When: As needed; Reason: Worsening of condition. Follow up: Private Physician; When: 2 - 3 days; Reason: Recheck today's complaints, Continuance of care, Re-evaluation by your physician. Addendum: 11/21/2020 06:59 Co-signature as Attending Physician, April Alexander MD. m a2 Signatures: Dispatcher [employer] EDFrancie Edouard, MILK WAGON DRIVER-C MILK WAGON DRIVER-April Gutierrez MD MD ma2 Scott Nolasco RN RN ae4 Daysi Echevarria, RN RN vg1 Reena Farley RN RN tr6 Corrections: (The following items were deleted from the chart) 11/17 17:03 16:36 [place] (HYDROcodone-acetaminophen) (7.5 mg-325 mg) 1 tabs PO once; RASS on ADMIN: tr6 Combtv4, Very Agttd3, Agttd2, Rstlss1, AlertClm0, Drwsy-1, Lt Sdtn-2, Mod Sdtn-3, Dp Sdtn-4, UnArsble-5 ordered. [facility] 17:43 17:41 11/17/2020 17:41 Discharged to Home. Impression: Flank Pain. Condition is Stable. kb Forms are Medication Reconciliation Form, Thank You Letter, Antibiotic Education, Prescription Opioid Use. Follow up: Emergency Department; When: As needed; Reason: Worsening of condition. Follow up: Private Physician; When: 2 - 3 days; Reason: Recheck today's complaints, Continuance of care, Re-evaluation by your physician. 18:16 17:43 11/17/2020 17:41 Discharged to Home. Impression: Flank Pain; Dysuria. Condition tr6 is Stable. Discharge Instructions: Flank Pain, Ztsj-gx-Bsim. Forms are Medication Reconciliation Form, Thank You Letter, Antibiotic Education, Prescription Opioid Use. Follow up: Emergency Department; When: As needed; Reason: Worsening of condition. Follow up: Private Physician; When: 2 - 3 days; Reason: Recheck today's complaints, Continuance of care, Re-evaluation by your physician. kb
[2020-11-17] MEDS ORDERED: PHENAZOPYRIDINE 100MG TAB PO ONE (18:21)
[2020-11-17 18:22] VITALS: BP 120/87; TEMP 97.7; O2SAT 100
== END 2020-11-17 18:16 | disposition home or self-care (01) ==
LOC: ER 15:43
DX: R30.0 Dysuria (principal); F31.9 Bipolar disorder, unspecified; Z88.5 Allergy status to narcotic agent
CPT/HCPCS: 85025; 80048; 36415; 81025; 76377; 74176; J7030; J2405; 81003; 81015; 99283

== ENCOUNTER 2020-11-19 19:14 | Emergency (ER) | payer OTHER ==
--- OUTSIDE RECORDS SUMMARY | 2020-11-19 19:17 | XMS REPORT | Continuity of Care Document ---
:1995 Author Organization [facility] t Address [address] [place] [address] Care Team Providers Name Role Phone Asked, [...] Clinician aidanorphcortez DA Active [place] [facility] nol 2-04 [facility] [place] Butorpha Propensi Active Palpitations 2018-06 [place] nol ty to 2-25 Methodi Tartrate adverse 00:00: st reaction 00 s to drug morphine DA Active [facility] 1-19 [facility]: [facility] [place] codeine DA Active [place] [facility] 1[facility] [place] tramadol DA Active [place] 2017-06 [facility] 2-31 [facility] [place] Tramadol Propensi Active Other (See headache [place] ty to Comments) 03-11 Methodi adverse 00:00: st reaction 00 s to drug Acetamin Propensi Active Shortness Of [place] ophen-Co ty to Breath 03-11 Methodi deine adverse 00:00: st reaction 00 s to drug No Known DA Active U [facility] Allergie 3- [facility] 00:[facility]: [facility] [place] Family History Family Member Diagnosis Comments Start Date Stop Date Source Natural mother Diabetes [facility] thodist Natural mother Menstrual problems [place] [facility] Social History Social Habit Start Date Stop Date Quantity Comments Source Tobacco use and 2019-06-21 2019-06-21 Never used [facility] ethodist exposure 00:00:00 00:00:00 Alcohol intake 2019-06-21 2019-06-21 Current drinker [place] [facility] 00:00:00 00:00:00 of alcohol (finding) Alcohol Comment 2016-04-28 2016-04-28 social, weekly [place] [facility] 00:00:00 00:00:00 Sex Ass[birth year] [facility] ethodist 00:00:00 00:00:00 Smoking Status Start Date Stop Date Source Never smoker [place] Method[facility] t Medications Ordered Filled Start Stop [...] 2 [place] en-caff-pyr 2-25 tablets by Sc thodi ilamine 17:05: mouth. st 500-60-15 17 mg tablet Procedures This patient has no known procedures. Plan of Care Planned Activity Planned Date Details Comments Source Future Scheduled 2021-01-26 INFLUENZA VACCINE [place] [facility] Test 00:00:00 [code = INFLUENZA VACCINE] Future Scheduled 2015-09-17 Screening for [facility]avi [facility] thodist Test 00:00:00 malignant neoplasm of cervix (procedure) [code = 498372012] Future Scheduled 2012 Hepatitis C [facility] hodist Test 00:00:00 screening (procedure) [code = 621757052] Future Scheduled 2006 COVID-19 VACCINE (1) [place]ia [place] [facility] Test 00:00:00 [code = COVID-19 VACCINE (1)] Encounters Start End Encounter Admission Attending Care Care Encounter Source Date/Time Date/Time Type Type Clinicians Facility Department ID 2020-09-26 2020-09-26 Emergency Tricia Simmons [facility] [id number] 18:51:00 22:39:00 Lluvia Mejia [id number] [place] [id number] [place] [id number] 2020-07-17 2020-07-17 Emergency Austin Cowart [facility] [id number] 05:53:00 08:59:00 Dani Kauffman [id number] [place] 4.2.7.2.686 [place] [id number] 2019-06-21 2019-06-21 Emergency KELSI [facility] [id number] [place] 00:00:00 00:00:00 [facility] [address] Results Test Description Test Time Test Comments Results Result Comments Source CHLAMYDIA GC DNA BY PCR 2020-08-06 14:24:00 Test Item Value Reference Range Interpretation Comme nts C. TRACHOMATIS DNA BY PCR (test Negative Negative code = CHLAMTDNA) N. GONORRHOEAE DNA BY PCR (test Negative Negative Performed At: [facility] code = NGONORDNA) [id number] [place], [place] [id number] Rodrigues MD Ph :[phone] - DUP AB/PEL/SC/[id number] 14:12:00 [facility] 1995 Sex: F Patient Name: FATMATA DEGROOT Unit No: [id number] EXAMS: CPT CODE: [id number] DUP AB/PEL/SC/LTD 73728 PELVIC ULTRASOUND, 08/01/2020: COMPARISON: CT pelvis dated [...] Orig Print D/T: S: 08/01/2020 (1415) [facility] NAME: FATMATA DEGROOT Radiology DepartmentPHYS: CANALJeffrey Winter Mccollum MD [address] : 1995 AGE: 24 SEX: F [place], [place] [address] LOC: ShaylaERS PHONE #: [phone] EXAM DATE: 08/01/2020 STATUS: REG ER FAX #: [phone] RAD NO: Page 1 Signed Report Patient Name: FATMATA DEGROOT Unit No: [id number] EXAMS: CPT CODE: [id number] DUP AB/PEL/SC/LTD 06434 <Continued> [facility] NAME: FATMATA DEGROOT Radiology Department PHYS: CANALWinter Murray MD [address] : 1995 AGE: 24 SEX: F [place], [place] [address] LOC: SANDY PHONE #: [phone] DATE: 08/01/2020 STATUS: REG ER FAX #: [phone] RAD NO: Page 2 Signed Report- US TRANSVAGINAL [id number] 14:12:00[facility] : 1995 Sex: F Patient Name: FATMATA DEGROOT Unit No: [id number] EXAMS: CPT CODE: [id number] US TRANSVAGINAL W/PELVIS 26915 PELVIC ULTRASOUND, 08/01/2020: COMPARISON: CT pelvis dated [...] Austin Barrera Technologist: Alexandra Elder RDMS Probe: [id number] Trnscrbd D/ (1412) t.SDR.AJ13 Orig Print D/T: S: 08/01/2020 (1415) [facility] NAME: DEGROOT,FATMATA Radiology DepartmentPHYS: Winter Landaverde MD [address] : 1995 AGE: 24 SEX: F [place] [address] LOC: ShaylaERS PHONE #: [phone] EXAM DATE: 08/01/2020 STATUS: REG ER FAX #: [phone] RAD NO: Page 1 Signed Report Patient Name: FATMATA DEGROOT Unit No: [id number] EXAMS: CPT CODE: [id number] US TRANSVAGINAL W/PELVIS 59374 <Continued> [facility] NAME: FATMATA DEGROOT Radiology Department PHYS: Winter Landaverde MD [address] : 1995 AGE: 24 SEX: F [place] [address] LOC: ShaylaERS PHONE #: [phone] DATE: 08/01/2020 STATUS: REG ER FAX #: [phone] RAD NO: Page 2 Signed Report- US PELVIS [id number] 14:12:00[facility] : 1995 Sex: F Patient Name: FATMATA DEGROOT Unit No: [id number] EXAMS: CPT CODE: [id number] US PELVIS COMPLETE 38423 PELVIC ULTRASOUND, 08/01/2020: COMPARISON: CT pelvis dated [...] Orig Print D/T: S: 08/01/2020 (1415) [facility] NAME: FATMATA DEGROOT Radiology DepartmentPHYS: CANAL. Winter Mccollum MD [address] : 1995 AGE: 24 SEX: F [place] [address] LOC: ShaylaERS PHONE #: [phone] EXAM DATE: 08/01/2020 STATUS: REG ER FAX #: [phone] RAD NO: Page 1 Signed Report Patient Name: FATMATA DEGROOT Unit No: [id number] EXAMS: CPT CODE: [id number] US PELVIS COMPLETE 20221 <Continued> [facility] NAME: FATMATA DEGROOT Radiology Department PHYS: CANALWinter Murray MD [address] : 1995 AGE: 24 SEX: F [place] [address] LOC: SANDY PHONE #: [phone] DATE: 08/01/2020 STATUS: REG ER FAX #: [phone] RAD NO: Page 2 Signed Report- CT ABD PELVIS W/O [id number] 10:58:00[facility] : 1995 Sex: F Patient Name: FATMATA DEGROOT Unit No: [id number] EXAMS: CPT CODE: [id number] CT ABD PELVIS W/O CONT 31032 CT ABDOMEN/CT STONE SURVEY WITHOUT CONTRAST, 08/01/2020 [...] mm right middle lobe pulmonary nodule. [facility] NAME: FATMATA DEGROOT Radiology Department PHYS: Winter Landaverde MD [address] : 1995 AGE: 24 SEX: F [place], [place] [address] LOC: SANDY PHONE #: [phone] EXAM DATE: 08/01/2020 STATUS: REG ER FAX #:[phone] RAD NO: Page 1 Signed Report 1 Patient Name: FATMATA DEGROOT Unit No: [id number] EXAMS: CPT CODE: [id number] CT ABD PELVIS W/O CONT 48001 <Continued> CT PELVIS WITHOUT CONTRAST: No opaque [...] 13.28 DLP: 653.43 Trnscrbd D/ (1058) AlfredoAJ13 [facility] NAME: FATMATA DEGROOT Radiology Department PHYS: [facility] Winter Wilkins MD [address] : 1995 AGE: 24 SEX: F [place] [address] LOC: ShaylaERS PHONE #: [phone] EXAM DATE: 08/01/2020 STATUS: REG ER FAX #: [phone] RAD NO: Page 2 Signed Report 1 Patient Name: FATMATA DEGROOT Unit No: [id number] EXAMS: CPT CODE: [id number] CT ABD PELVIS W/O CONT 19250 <Continued> Orig Print D/T: S: 08/01/2020 (1101) [facility] NAME: FATMATA DEGROOT Radiology Department PHYS: [facility] Winter Mccollum MD [address] : 1995 AGE: 24 SEX: F [place] [address] LOC: ShaylaERS PHONE #: [phone] EXAM DATE: 08/01/2020 STATUS: REG ER FAX #: [phone] RAD NO: Page 3 Signed Report 1UA RFLX MICR CULT IF [id number] 10:04:00 Test Item Value Reference Range Interpretation [...] culture: Suprapubic PainSpecimen Description: CLEAN CATCHUR HCG [id number] 10:04:00 Test Item Value Reference Range Interpretation [...] Description: CLEAN CATCHUA RFLX MICR CULT IF [id number] 10:03:00 Test Item Value Reference Range Interpretation [...] culture: Suprapubic PainSpecimen Description: CLEAN CATCHUR HCG [id number] 10:03:00 Test Item Value Reference Range Interpretation Comments UR HCG QUAL (test code = HCGQLU) Indication for culture: Suprapubic PainSpecimen Description: CLEAN CATCHCBC W/AUTO [id number] 07:27:00 Test Item Value Reference Range Interpretation [...] NORMAL code = PLTMR) AG HEPATITIS B [id number] 04:15:00 Test Item Value Reference Range Interpretation Comments AG HEPATITIS B SURFACE (test code NONREACTIVE NONREACTIVE = HBSAG) AB HEPATITIS C [id number] 04:15:00 Test Item Value Reference Range Interpretation Comments AB HEPATITIS C (test code = NONREACTIVE NONREACTIVE HCVAB) SIGNAL TO CUTOFF (test code = 0.13 <0.80 N CUTOFF) RUBELLA [id number] 04:15:00 Test Item Value Reference Range Interpretation Comments RUBELLA SCREEN 70.2 IUnit/ml Results >10. 0IUnits/ml (test code = are considered positive RUBSC) inaccordance wi th the CLSI guidelines and based on the [employer] S tandard for Anti-Rubell a serum as anindicator of immune status and a br eakpoint to detect mostseropositiv e persons. AB [id number] 04:15:00 Test Item Value Reference Range Interpretation Comments AB TREPONEMA (test code = TREPAB) NONREACTIVE NONREACTIVE AG HEPATITIS B [id number] 04:00:00 Test Item Value Reference Range Interpretation Comments AG HEPATITIS B SURFACE (test code NONREACTIVE NONREACTIVE = HBSAG) AB HEPATITIS C [id number] 04:00:00 Test Item Value Reference Range Interpretation Comments AB HEPATITIS C (test code = HCVAB) NONREACTIVE SIGNAL TO CUTOFF (test code = CUTOFF) <0.80 RUBELLA [id number] 04:00:00 Test Item Value Reference Range Interpretation Comments RUBELLA SCREEN 70.2 IUnit/ml Results >10. 0IUnits/ml (test code = are considered positive RUBSC) inaccordance wi th the CLSI guidelines and based on the [employer] S tandard for Anti-Rubell a serum as anindicator of immune status and a br eakpoint to detect mostseropositiv e persons. AB [id number] 04:00:00 Test Item Value Reference Range Interpretation Comments AB TREPONEMA (test code = TREPAB) NONREACTIVE NONREACTIVE CBC W/AUTO [id number] 00:36:00 Test Item Value Reference Range Interpretation [...]
[2020-11-19 20:26] LABS: Urine Blood 2+ (Negative); Urine Glucose Negative (Negative); Urine Protein Negative (Negative); Urine Specific Gravity 1.025 (1.005-1.030)
[2020-11-19] MEDS ORDERED: dexAMETHasone 10 MG/ML VIAL ONE (20:30)
[2020-11-19] MEDS ORDERED: DIPHENHYDRAMINE 50 MG/ML VIAL ONE (20:30)
[2020-11-19] MEDS ORDERED: METOCLOPRAMIDE 10 MG/2mL INJ ONE (20:30)
[2020-11-19] MEDS ORDERED: NA CHLORIDE 0.9% 1,000 ML ONE (20:31)
--- NOTE | 2020-11-19 20:57 | EDPHYS ---
Physician Documentation [facility] Name: Carla Duncan Age: 25 yrs Sex: Female : 1995 Arrival Date: 11/19/2020 Time: 19:17 Bed 20 Private MD: ED Physician April Alexander HPI: 11/19 20:10 This 25 yrs old Female presents to ER via Ambulatory with complaints of Fall cp Injury. 20:10 The patient complains of pain to the left frontal area, left side of forehead, left cp temporal area and left nondenominational. 20:10 The patient describes the headache as aching. Onset: The symptoms/episode cp began/occurred yesterday. Associated signs and symptoms: Pertinent negatives: altered mental status, fever, neck stiffness, vision changes. 20:10 Patient reports striking left side of against bedroom furniture yesterday when standing cp up. Injury occurred about 1800. Patient reports vision when dark but no LOC. Patient c/o left side headache with pain radiating to jaw. Historical: - Immunization history:: Adult Immunizations up to date. - Social history:: Smoking status: unknown. ROS: 20:15 Constitutional: Negative for body aches, chills, fever, poor PO intake. cp 20:15 ENT: Negative for drainage from ear(s), ear pain, sore throat, difficulty swallowing, cp difficulty handling secretions. 20:15 Neck: Negative for pain with movement, pain at rest, stiffness. 20:15 Cardiovascular: Negative for chest pain. 20:15 Respiratory: Negative for cough, shortness of breath, wheezing. 20:15 Abdomen/GI: Negative for abdominal pain, vomiting, diarrhea, constipation. 20:15 Back: Negative for pain at rest, pain with movement. 20:15 Neuro: Positive for headache, Negative for altered mental status, loss of consciousness, speech changes, weakness. 20:15 All other systems are negative. Exam: 20:20 Constitutional: The patient appears in no acute distress, alert, awake, non-toxic, well cp developed, well nourished. 20:20 Head/Face: Normocephalic, atraumatic. cp 20:20 Eyes: Periorbital structures: appear normal, Pupils: equal, round, and reactive to light and accomodation, Extraocular movements: intact throughout, Conjunctiva: normal, Sclera: no appreciated abnormality, Lids and lashes: appear normal, bilaterally. 20:20 ENT: External ear(s): are unremarkable, Nose: is normal, Mouth: Lips: moist, Oral mucosa: moist, Posterior pharynx: Airway: no evidence of obstruction, patent. 20:20 Neck: ROM/movement: is normal, is supple, without pain, no range of motions limitations. 20:20 Chest/axilla: Inspection: normal. 20:20 Cardiovascular: Rate: normal, Rhythm: regular. 20:20 Respiratory: the patient does not display signs of respiratory distress, Respirations: normal. 20:20 Abdomen/GI: Exam negative for discomfort, distension, guarding, Inspection: abdomen appears normal. 20:20 Neuro: Orientation: to person, place \T\ time. Mentation: is normal, Cerebellar function: is grossly normal, Motor: moves all fours, strength is normal, Sensation: is normal. Vital Signs: 19:25 BP 120 / 73; Pulse 94; Resp 18; Temp 97.9; Pulse Ox 100% on R/A; Weight 90.72 kg; ak2 Height 5 ft. (152.40 cm); 21:05 BP 122 / 84; Pulse 87; Resp 18; Pulse Ox 99% on R/A; ea 19:25 Body Mass Index 39.06 (90.72 kg, 152.40 cm) ak2 MDM: 19:47 Patient medically screened. cp 20:30 Differential diagnosis: intracerebral hemorrhage, migraine, subarachnoid bleed, cp fracture, concussion. 20:55 Data reviewed: vital signs, nurses notes. cp 20:55 Counseling: I had a detailed discussion with the patient and/or guardian regarding: the cp historical points, exam findings, and any diagnostic results supporting the discharge/admit diagnosis, to return to the emergency department if symptoms worsen or persist or if there are any questions or concerns that arise at home. Response to treatment: the patient's symptoms have markedly improved after treatment, and as a result, I will discharge patient. 11/19 20:26 Order name: Urine Dipstick-Ancillary EDAR 11/19 20:05 Order name: IV; Complete Time: 20:37 cp 11/19 20:05 Order name: Urine Dipstick-Ancillary (obtain specimen); Complete Time: 20:37 cp 11/19 20:05 Order name: Urine Test (obtain specimen); Complete Time: 20:37 cp Administered Medications: 20:15 Drug: NS 0.9% 1000 ml Route: IV; Rate: 1 bolus; Site: left antecubital; ea 21:30 Follow up: Response: No adverse reaction; IV Status: Completed infusion; IV Intake: ea 700ml 20:15 Drug: Reglan (metoCLOPramide) 10 mg Route: IVP; Site: left antecubital; ea 21:04 Follow up: Response: No adverse reaction ea 20:15 Drug: Benadryl (diphenhydrAMINE) 25 mg Route: IVP; Site: left antecubital; ea 21:05 Follow up: Response: No adverse reaction ea 20:15 Drug: Decadron - Dexamethasone 10 mg Route: IVP; Site: left antecubital; ea 21:04 Follow up: Response: No adverse reaction ea 21:11 Drug: TORadol (ketorolac) 30 mg Route: IVP; Site: left antecubital; ea 21:30 Follow up: Response: No adverse reaction ea Disposition: 21:45 Chart complete. cp Disposition: 11/19/20 20:57 Discharged to Home. Impression: Concussion. - Condition is Stable. - Discharge Instructions: Concussion, Adult. - Prescriptions for Fiorinal 50- 325-40 mg Oral Capsule - take 1 capsule by ORAL route every 4 hours As needed - not to exceed 6 capsules per day; 20 capsule. - Medication Reconciliation Form, Thank You Letter, Antibiotic Education, Prescription Opioid Use form. - Follow up: Private Physician; When: 2 - 3 days; Reason: Worsening of condition. - Problem is new. - Symptoms have improved. Signatures: Dispatcher [employer] EDMS Michael Dowd PA PA cp Antunez, Elena, RN RN Williams Mae Corrections: (The following items were deleted from the chart) 21:02 20:57 11/19/2020 20:57 Discharged to Home. Impression: Concussion. Condition is Stable. cp Forms are Medication Reconciliation Form, Thank You Letter, Antibiotic Education, Prescription Opioid Use. Follow up: Private Physician; When: 2 - 3 days; Reason: Worsening of condition. Problem is new. Symptoms have improved. cp 21:03 21:02 11/19/2020 20:57 Discharged to Home. Impression: Concussion; Headache. Condition cp is Stable. Discharge Instructions: Concussion, Adult. Forms are Medication Reconciliation Form, Thank You Letter, Antibiotic Education, Prescription Opioid Use. Follow up: Private Physician; When: 2 - 3 days; Reason: Worsening of condition. Problem is new. Symptoms have improved. cp 21:38 21:03 11/19/2020 20:57 Discharged to Home. Impression: Concussion. Condition is Stable. ea Discharge Instructions: Concussion, Adult. Prescriptions for Fiorinal 50-325-40 mg Oral Capsule - take 1 capsule by ORAL route every 4 hours As needed - not to exceed 6 capsules per day; 20 capsule. and Forms are Medication Reconciliation Form, Thank You Letter, Antibiotic Education, Prescription Opioid Use. Follow up: Private Physician; When: 2 - 3 days; Reason: Worsening of condition. Problem is new. Symptoms have improved. cp
--- NOTE | 2020-11-19 20:57 | ER ---
Nurse's Notes [facility] Name: Carla Duncan Age: 25 yrs Sex: Female : 1995 Arrival Date: 11/19/2020 Time: 19:17 Bed 20 Private MD: Diagnosis: Concussion Presentation: 11/19 19:25 Chief complaint: Patient states: hit head on dresser yesterday while bending down, has ak2 had head and jaw pain since. denies loc, antociagulant therapy. Coronavirus screen: Client denies travel out of the [place] in the last 14 days. Ebola Screen: Patient negative for fever greater than or equal to 101.5 degrees Fahrenheit, and additional compatible Ebola Virus Disease symptoms Patient denies exposure to infectious person. Patient denies travel to an Ebola-affected area in the 21 days before illness onset. No symptoms or risks identified at this time. Initial Sepsis Screen: Does the patient meet any 2 criteria? No. Patient's initial sepsis screen is negative. Does the patient have a suspected source of infection? No. Patient's initial sepsis screen is negative. Risk Assessment: Do you want to hurt yourself or someone else? Patient reports no desire to harm self or others. Onset of symptoms was November 19, 2020. 19:25 Method Of Arrival: Ambulatory ak2 19:25 Acuity: VENKATESH 3 ak2 Triage Assessment: 19:28 General: Appears in no apparent distress. Behavior is calm, cooperative. Pain: ak2 Complains of pain in face. Neuro: No deficits noted. Historical: - Immunization history:: Adult Immunizations up to date. - Social history:: Smoking status: unknown. Screenin:50 Abuse screen: Denies threats or abuse. Nutritional screening: No deficits noted. ea Tuberculosis screening: No symptoms or risk factors identified. Fall Risk Fall in past 12 months (25 points). Assessment: 19:25 General: Appears in no apparent distress. Behavior is calm, cooperative, appropriate ea for age. Neuro: Level of Consciousness is awake, alert, obeys commands, Oriented to person, place, time. Cardiovascular: Patient's skin is warm and dry. Respiratory: Airway is patent Respiratory effort is even, unlabored, Respiratory pattern is regular, symmetrical. Derm: Skin is pink, warm \T\ dry. 21:00 Reassessment: Patient and/or family updated on plan of care and expected duration. Pain ea level reassessed. Pt reports pain is a bit better. Provider notified medication order obtained, medication administered, tolerating well. 21:22 Reassessment: Patient and/or family updated on plan of care and expected duration. Pain ea level reassessed. Patient is alert, oriented x 3, equal unlabored respirations, skin warm/dry/pink. Discharge instruction given to patient verbalized the understanding of instruction. Pt awaiting on ride. Vital Signs: 19:25 BP 120 / 73; Pulse 94; Resp 18; Temp 97.9; Pulse Ox 100% on R/A; Weight 90.72 kg; ak2 Height 5 ft. (152.40 cm); 21:05 BP 122 / 84; Pulse 87; Resp 18; Pulse Ox 99% on R/A; ea 19:25 Body Mass Index 39.06 (90.72 kg, 152.40 cm) ak2 ED Course: 19:17 Patient arrived in ED. ag3 19:25 Inserted saline lock: 20 gauge in left antecubital area, using aseptic technique. ea 19:27 Triage completed. ak2 19:28 Arm band placed on right wrist. ak2 19:41 Michael Dowd PA is PHCP. cp 19:41 April Aleaxnder MD is Attending Physician. cp 19:50 Lilly Jones RN is Primary Nurse. ea 19:51 Patient has correct armband on for positive identification. Bed in low position. Call ea light in reach. Side rails up X2. 21:21 No provider procedures requiring assistance completed. ea 21:35 IV discontinued, intact, bleeding controlled, No redness/swelling at site. Pressure ea dressing applied. Administered Medications: 20:15 Drug: NS 0.9% 1000 ml Route: IV; Rate: 1 bolus; Site: left antecubital; ea 21:30 Follow up: Response: No adverse reaction; IV Status: Completed infusion; IV Intake: ea 700ml 20:15 Drug: Reglan (metoCLOPramide) 10 mg Route: IVP; Site: left antecubital; ea 21:04 Follow up: Response: No adverse reaction ea 20:15 Drug: Benadryl (diphenhydrAMINE) 25 mg Route: IVP; Site: left antecubital; ea 21:05 Follow up: Response: No adverse reaction ea 20:15 Drug: Decadron - Dexamethasone 10 mg Route: IVP; Site: left antecubital; ea 21:04 Follow up: Response: No adverse reaction ea 21:11 Drug: TORadol (ketorolac) 30 mg Route: IVP; Site: left antecubital; ea 21:30 Follow up: Response: No adverse reaction ea Outcome: 20:57 Discharge ordered by MD. trudi 21:21 Discharge instructions given to patient, Instructed on discharge instructions, follow ea up and referral plans. medication usage, Demonstrated understanding of instructions, follow-up care, medications, Prescriptions given X 1. 21:38 Discharged to home ambulatory, with family. ea 21:38 Condition: stable 21:38 Patient left the ED. ea Signatures: Michael Dowd PA PA cp Antunez, Elena, RN RN Velma Toscano3 Williams Mata2
[2020-11-19] MEDS ORDERED: KETOROLAC 30 MG/ML INJ ONE (21:29)
[2020-11-19 22:29] VITALS: TEMP 97.9
[2020-11-19 22:30] VITALS: BP 122/84; O2SAT 99
== END 2020-11-19 21:38 | disposition home or self-care (01) ==
LOC: ER 19:14
DX: S06.0X0A Concussion without loss of consciousness, initial encounter (principal); W22.03XA Walked into furniture, initial encounter; Y93.89 Activity, other specified
CPT/HCPCS: 81003; J2765; J1200; J1100; J7030; 96361; 96374; 96375; 99283

== ENCOUNTER 2021-01-15 18:45 | Emergency (ER) | payer OTHER ==
--- OUTSIDE RECORDS SUMMARY | 2021-01-15 18:48 | XMS REPORT | Continuity of Care Document ---
:[address] [facility] t Address [address] [place] [address] Care Team Providers Name Role Phone Asked, Pcp Primary Care Physician Unavailable Gume CHANCE Attending Clinician Geovani Agarwal Attending Clinician Lluvia Rice Attending Clinician Supa AREVALO E Attending Clinician Singer FERNÁNDEZ Attending Clinician KELSI Attending Clinician Unavailable Payers Payer Name Policy Type Policy Number Effective Date Expiration Date S ource Problems This patient has no known problems. Allergies, Adverse Reactions, Alerts Allergy Allergy Status Severity Reaction(s) Onset Inactive Treating Comm ents Source Name Type Date Date Clinician hellen DA Active [place] [facility] [place] Butorpha Propensi Active Palpitations 2018-06 [place] nol ty to 2-25 [facility] Tartrate adverse 00:00: st reaction 00 s to drug morphine DA Active [facility] 1[facility]19 [facility] [place] codeine DA Active [place] [facility] [place] tramadol DA [place] 2017-06 [facility] [place] Tramadol Propensi Active Other (See headache [place] ty to Comments) 9 [facility] adverse 00:00: st reaction 00 s to drug Acetamin Propensi Active Shortness Of [place] ophen-Co ty to Breath 03-11 [facility] deine adverse 00:00: st reaction 00 s to drug No Known DA Active [facility] Allergie 3-14 [facility] [place] Family History Family Member Diagnosis Comments Start Date Stop Date Source Natural mother Diabetes [place] [facility] Natural mother Menstrual problems [place] [facility] Social History Social Habit Start Date Stop Date Quantity Comments Source Tobacco use and 2019-06-21 2019-06-21 Never used [facility] ethodist exposure 00:00:00 00:00:00 Alcohol intake 2019-06-21 2019-06-21 Current drinker [place] [facility] 00:00:00 00:00:00 of alcohol (finding) Alcohol Comment 2016-04-28 2016-04-28 social, weekly [place] [facility] 00:00:00 00:00:00 Sex Ass[birth year] [facility] ethodist 00:00:00 00:00:00 Smoking Status Start Date Stop Date Source Never smoker [facility] Medications Ordered Filled Start Stop Current Ordering Indication Dosage Frequency Signature Comments Components Source Medication Medication Date Date Medication? Clinician (SIG) Name Name ibuprofen 2018-06 Yes 800mg Q6H Take 800 [address]on (ADVIL) 200 2-25 mg by [facility] MG tablet 17:05: mouth st 17 every 6 (six) hours as needed for mild pain. acetaminoph 2018- Yes 2{tbl} Take 2 [place] en-caff-pyr 2-25 tablets by [facility] ilamine 17:05: mouth. st 500-60-15 17 mg tablet Procedures This patient has no known procedures. Plan of Care Planned Activity Planned Date Details Comments Source Future Scheduled 2021-01-26 INFLUENZA VACCINE [place] [facility] Test 00:00:00 [code = INFLUENZA VACCINE] Future Scheduled 2015-09-17 Screening for [place] [facility] Test 00:00:00 malignant neoplasm of cervix (procedure) [code = 960417044] Future Scheduled 2012 Hepatitis C [place] [facility] Test 00:00:00 screening (procedure) [code = 405057387] Future Scheduled 2006 COVID-19 VACCINE (1) [place] [facility] Test 00:00:00 [code = COVID-19 VACCINE (1)] Encounters Start End Encounter Admission Attending Care Care Encounter Source Date/Time Date/Time Type Type Clinicians Facility Department ID 2020-12-31 2020-12-31 Emergency [place], [facility] [id number] 02:02:00 03:26:00 Akiko Mejia [id number] [place] 4.2.7.2.686 [place] [address] [id number] 2020-11-20 2020-11-20 Emergency [place], [facility] [id number] 11:47:00 15:01:00 Sammi Mejia [id number] [place] 4.2.7.2.686 [place] [address] [id number] 2020-09-26 2020-09-26 Emergency Tricia Simmons [facility] [id number] 18:51:00 22:39:00 Lluvia Mejia 350.1.13.10 [place] 4.2.7.2.686 [place] [address] [id number] 2020-07-17 2020-07-17 Emergency Austin Cowart [facility] 1.2.840 .114 [id number] 05:53:00 08:59:00 Dani Kauffman 350.1.13.10 [place] 4.2.7.2.686 [place] [id number] 2019-06-21 2019-06-21 JOHN Carrillo [id number] [place] 00:00:00 00:00:[address] [place] [address] Results Test Description Test Time Test Comments Results Result Comments Source CHLAMYDIA GC DNA BY PCR 2020-08-06 14:24:00 Test Item Value Reference Range Interpretation Comme nts C. TRACHOMATIS DNA BY PCR (test Negative Negative code = CHLAMTDNA) N. GONORRHOEAE DNA BY PCR (test Negative Negative Performed At: [facility] James code = NGONORDNA) [id number] [place], [place] [id number] Cayla Rodrigues MD Ph :[phone] - DUP AB/PEL/SC/[id number] 14:12:00 [facility] 1995 Sex: F Patient Name: FATMATA DUNCAN Unit No: [id number] EXAMS: CPT CODE: [id number] DUP AB/PEL/SC/LTD 70701 PELVIC ULTRASOUND, 08/01/2020: COMPARISON: CT pelvis dated [...] Orig Print D/T: S: 08/01/2020 (1415) [facility] [place] [facility] NAME: FATMATA DUNCAN Radiology DepartmentPHYS: Winter Landaverde MD [address] : 1995 AGE: 24 SEX: F [place] [address] LOC: ERS PHONE #: [phone] EXAM DATE: 08/01/2020 STATUS: REG ER FAX #: [phone] RAD NO: Page 1 Signed Report Patient Name: FATMATA DUNCAN Unit No: [id number] EXAMS: CPT CODE: [id number] DUP AB/PEL/SC/LTD 05827 <Continued> [facility] [place] [facility] NAME: FATMATA DUNCAN Radiology Department PHYS: Winter Landaverde MD [address] : 1995 AGE: 24 SEX: F [place], [place] [address] LOC: .ERS PHONE #: [phone] DATE: 08/01/2020 STATUS: REG ER FAX #: [phone] RAD NO: Page 2 Signed Report- US TRANSVAGINAL [id number] 14:12:00[facility] : 1995 Sex: F Patient Name: FATMATA DUNCAN Unit No: [id number] EXAMS: CPT CODE: [id number] US TRANSVAGINAL W/PELVIS 59969 PELVIC ULTRASOUND, 08/01/2020: COMPARISON: CT pelvis dated [...] [place] Technologist: Alexandra Elder RDMS Probe: [id number] Trnscrbd D/ (1412) [id number] Orig Print D/T: S: 08/01/2020 (1415) [facility] [place] [facility] NAME: FATMATA DUNCAN Radiology DepartmentPHYS: CANALSalima Winter Mccollum MD [address] : 1995 AGE: 24 SEX: F [place], [place] [address] LOC: ShaylaERS PHONE #: [phone] EXAM DATE: 08/01/2020 STATUS: REG ER FAX #: [phone] RAD NO: Page 1 Signed Report Patient Name: FATMATA DUNCAN Unit No: [id number] EXAMS: CPT CODE: [id number] US TRANSVAGINAL W/PELVIS 07273 <Continued> [facility] [place] [facility] NAME: FATMATA DUNCAN Radiology Department PHYS: Winter Landaverde MD [address] : 1995 AGE: 24 SEX: F [place], [place] [address] LOC: SANDY PHONE #: [phone] DATE: 08/01/2020 STATUS: REG ER FAX #: [phone] RAD NO: Page 2 Signed Report- US PELVIS [id number] 14:12:00[facility] : 1995 Sex: F Patient Name: FATMATA DUNCAN Unit No: [id number] EXAMS: CPT CODE: [id number] US PELVIS COMPLETE 59309 PELVIC ULTRASOUND, 08/01/2020: COMPARISON: CT pelvis dated [...] [id number] Orig Print D/T: S: 08/01/2020 (1415) [facility] NAME: FATMATA DUNCAN Radiology DepartmentPHYS: Winter Landaverde MD [address] : 1995 AGE: 24 SEX: F [place] [address] LOC: ShaylaERS PHONE #: [phone] EXAM DATE: 08/01/2020 STATUS: REG ER FAX #: [phone] RAD NO: Page 1 Signed Report Patient Name: FATMATA DUNCAN Unit No: [id number] EXAMS: CPT CODE: [id number] US PELVIS COMPLETE 55752 <Continued> [facility] [place] [facility] NAME: FATMATA DUNCAN Radiology Department PHYS: Winter Landaverde MD [address] : 1995 AGE: 24 SEX: F [place] [address] LOC: ShaylaERS PHONE #: [phone] DATE: 08/01/2020 STATUS: REG ER FAX #: [phone] RAD NO: Page 2 Signed Report- CT ABD PELVIS W/O [id number] 10:58:00[facility] : 1995 Sex: F Patient Name: FATMATA DUNCAN Unit No: [id number] EXAMS: CPT CODE: [id number] CT ABD PELVIS W/O CONT 69765 CT ABDOMEN/CT STONE SURVEY WITHOUT CONTRAST, 08/01/2020 [...] mm right middle lobe pulmonary nodule. [facility] [place] [facility] NAME: FATMATA DUNCAN Radiology Department PHYS: Winter Landaverde MD [address] : 1995 AGE: 24 SEX: F [place], [place] [address] LOC: ShaylaERS PHONE #: [phone] EXAM DATE: 08/01/2020 STATUS: REG ER FAX #:[phone] RAD NO: Page 1 Signed Report 1 Patient Name: FATMATA DUNCAN Unit No: [id number] EXAMS: CPT CODE: [id number] CT ABD PELVIS W/O CONT 01490 <Continued> CT PELVIS WITHOUT CONTRAST: No opaque [...] Joe Agudelo MD CC: Winter Mccollum MD; [facility] Technologist: Art Church, RT, CT CTDI: 13.28 DLP: 653.43 Trnscrbd D/ (1058) [id number] [facility] NAME: DUNCANFATMATA Radiology Department PHYS: Winter Landaverde MD [address] : 1995 AGE: 24 SEX: F [place], [place] [address] LOC: F.ERS PHONE #: [phone] EXAM DATE: 08/01/2020 STATUS: REG ER FAX #: [phone] RAD NO: Page 2 Signed Report 1 Patient Name: FATMATA DUNCAN Unit No: [id number] EXAMS: CPT CODE: [id number] CT ABD PELVIS W/O CONT 94938 <Continued> Orig Print D/T: S: 08/01/2020 (1101) [facility] NAME: FATMATA DUNCAN Radiology Department PHYS: Winter Landaverde MD [address] : 1995 AGE: 24 SEX: F [place], [place] [address] LOC: SANDY PHONE #: [phone] EXAM DATE: 08/01/2020 STATUS: REG KATE FAX #: [phone] RAD NO: Page 3 Signed Report 1UA RFLX MICR CULT IF [id number] 10:04:00 Test Item Value Reference Range Interpretation [...] culture: Suprapubic PainSpecimen Description: CLEAN CATCHUR HCG [id number] 10:04:00 Test Item Value Reference Range Interpretation [...] Description: CLEAN CATCHUA RFLX MICR CULT IF [id number] 10:03:00 Test Item Value Reference Range Interpretation [...] culture: Suprapubic PainSpecimen Description: CLEAN CATCHUR HCG [id number] 10:03:00 Test Item Value Reference Range Interpretation Comments UR HCG QUAL (test code = HCGQLU) Indication for culture: Suprapubic PainSpecimen Description: CLEAN CATCHCBC W/AUTO [id number] 07:27:00 Test Item Value Reference Range Interpretation [...] NORMAL code = PLTMR) AG HEPATITIS B [id number] 04:15:00 Test Item Value Reference Range Interpretation Comments AG HEPATITIS B SURFACE (test code NONREACTIVE NONREACTIVE = HBSAG) AB HEPATITIS C [id number] 04:15:00 Test Item Value Reference Range Interpretation Comments AB HEPATITIS C (test code = NONREACTIVE NONREACTIVE HCVAB) SIGNAL TO CUTOFF (test code = 0.13 <0.80 N CUTOFF) RUBELLA [id number] 04:15:00 Test Item Value Reference Range Interpretation Comments RUBELLA SCREEN 70.2 IUnit/ml Results >10. 0IUnits/ml (test code = are considered positive RUBSC) inaccordance wi th the CLSI guidelines and based on the [employer] S tandard for Anti-Rubell a serum as anindicator of immune status and a br eakpoint to detect mostseropositiv e persons. AB [id number] 04:15:00 Test Item Value Reference Range Interpretation Comments AB TREPONEMA (test code = TREPAB) NONREACTIVE NONREACTIVE AG HEPATITIS B [id number] 04:00:00 Test Item Value Reference Range Interpretation Comments AG HEPATITIS B SURFACE (test code NONREACTIVE NONREACTIVE = HBSAG) AB HEPATITIS C [id number] 04:00:00 Test Item Value Reference Range Interpretation Comments AB HEPATITIS C (test code = HCVAB) NONREACTIVE SIGNAL TO CUTOFF (test code = CUTOFF) <0.80 RUBELLA [id number] 04:00:00 Test Item Value Reference Range Interpretation Comments RUBELLA SCREEN 70.2 IUnit/ml Results >10. 0IUnits/ml (test code = are considered positive RUBSC) inaccordance wi th the CLSI guidelines and based on the [employer] S tandard for Anti-Rubell a serum as anindicator of immune status and a br eakpoint to detect mostseropositiv e persons. AB [id number] 04:00:00 Test Item Value Reference Range Interpretation Comments AB TREPONEMA (test code = TREPAB) NONREACTIVE NONREACTIVE CBC W/AUTO [id number] 00:36:00 Test Item Value Reference Range Interpretation [...]
[2021-01-15 22:12] LABS: Urine Blood 1+ (Negative); Urine Glucose Negative (Negative); Urine Protein Negative (Negative)
--- NOTE | 2021-01-15 22:24 | ER ---
Nurse's Notes [facility] Name: Carla Duncan Age: 25 yrs Sex: Female : 1995 Arrival Date: 01/15/2021 Time: 18:47 Bed 15 Private MD: Aurelio La Diagnosis: Dorsalgia, unspecified Presentation: 01/15 19:50 Chief complaint: Patient states: Upper back pain and also on my sternum feels tight x 2 ca1 days.. Denies injury. I can't get comfortable, It just hurts. I also have some sinus drainage but no cough. Took Flexeril and Motrin at 1730, no relief. Coronavirus screen: Client denies travel out of the [place] in the last 14 days. At this time, the client does not indicate any symptoms associated with coronavirus-19. Ebola Screen: Patient negative for fever greater than or equal to 101.5 degrees Fahrenheit, and additional compatible Ebola Virus Disease symptoms Patient denies exposure to infectious person. Patient denies travel to an Ebola-affected area in the 21 days before illness onset. No symptoms or risks identified at this time. Initial Sepsis Screen: Does the patient meet any 2 criteria? No. Patient's initial sepsis screen is negative. Does the patient have a suspected source of infection? No. Patient's initial sepsis screen is negative. Risk Assessment: Do you want to hurt yourself or someone else? Patient reports no desire to harm self or others. Onset of symptoms was January 15, 2021. 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 Flu vaccine is not up to date. - Social history:: Smoking status: Patient denies any tobacco usage or history of. Screenin:40 Abuse screen: Denies threats or abuse. Denies injuries from another. Nutritional bs2 screening: No deficits noted. Tuberculosis screening: No symptoms or risk factors identified. Fall Risk None identified. Assessment: 21:40 General: Appears in no apparent distress. uncomfortable, obese, well groomed, well bs2 developed, well nourished, Behavior is calm, cooperative, appropriate for age. Pain: Complains of pain in left scapular area and right scapular area Pain radiates to chest Pain currently is 8 out of 10 on a pain scale. Alleviated by nothing. Neuro: No deficits noted. Cardiovascular: No deficits noted. Respiratory: No deficits noted. GI: No deficits noted. No signs and/or symptoms were reported involving the gastrointestinal system. : No deficits noted. Derm: No deficits noted. Musculoskeletal: Tenderness present in right subscapular area and left subscapular area. Vital Signs: 19:50 Pulse 104; Resp 18 S; Temp 97.6(TE); Pulse Ox 98% on R/A; Weight 90.72 kg (R); Height 5 ca1 ft. 0 in. (152.40 cm) (R); Pain 8/10; 19:53 BP 123 / 91; ca1 22:47 BP 110 / 76 LA Sitting (auto/lg); Pulse 99 MON; Resp 16 S; Temp 98.9(O); Pulse Ox 100% bs2 on R/A; Pain 9/10; 19:50 Body Mass Index 39.06 (90.72 kg, 152.40 cm) ca1 ED Course: 18:47 Patient arrived in ED. ds1 18:47 Aurelio La MD is Private Physician. ds1 19:52 Triage completed. ca1 19:52 Arm band placed on right wrist. ca1 21:26 Michael Dowd PA is PHCP. cp 21:26 Hal Watters MD is Attending Physician. cp 21:40 Patient has correct armband on for positive identification. Bed in low position. Call bs2 light in reach. 21:40 No provider procedures requiring assistance completed. Patient did not have IV access bs2 during this emergency room visit. 22:19 Marla Zepeda, JUDI is Primary Nurse. bs2 22:29 XRAY Chest (1 view) Sent. bs2 22:29 Urine --Ancillary (enter results) Sent. bs2 22:51 XRAY Chest (1 view) In Process Unspecified. EDMS Administered Medications: 21:35 Drug: traMADol 50 mg Route: PO; bs2 22:49 Follow up: Response: No adverse reaction bs2 Outcome: 22:23 Discharge ordered by . trudi 22:47 Discharged to home ambulatory, with family. bs2 22:47 Condition: stable 22:47 Discharge instructions given to patient. 22:48 Patient left the ED. bs2 Signatures: Dispatcher [employer] [facility] Izzy Mccloud ds1 Michael Dowd PA PA cp Acob, Cheryl, RN RN ca1 Marla Zepeda RN RN bs2 Corrections: (The following items were deleted from the chart) 19:53 19:52 Allergies: No Known Allergies; ca1 ca1 20:45 19:50 Chief complaint: Patient states: Upper back pain and also on my sternum feels ca1 tight x 2 days.. Denies injury. I can't get comfortable, It just hurts. I also have some sinus drainage but no cough ca1
--- NOTE | 2021-01-15 22:24 | EDPHYS ---
Physician Documentation [facility] Name: Carla Duncan Age: 25 yrs Sex: Female : 1995 Arrival Date: 01/15/2021 Time: 18:47 Bed 15 Private MD: Aurelio La ED Physician Hal Watters HPI: 01/15 21:39 This 25 yrs old Female presents to ER via Ambulatory with complaints of Upper cp Back Pain. 21:39 The patient presents with pain that is acute, with no known mechanism of injury. cp 21:39 The symptoms are located in the left scapular area, right scapular area, left cp subscapular area and right subscapular area. Onset: The symptoms/episode began/occurred 3 day(s) ago. The pain radiates to the chest. Associated signs and symptoms: Pertinent negatives: abdominal pain, fever, numbness, weakness, shortness of breath. The problem was sustained from unknown cause. Modifying factors: the patient symptoms are aggravated by movement, lifting. Severity of symptoms: in the emergency department the symptoms are unchanged, despite home interventions. 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 Flu vaccine is not up to date. - Social history:: Smoking status: Patient denies any tobacco usage or history of. ROS: 21:39 Eyes: Negative for injury, pain, redness, and discharge. cp 21:39 Constitutional: Negative for body aches, chills, fever, poor PO intake. 21:39 Neck: Negative for pain with movement, pain at rest, stiffness. 21:39 Cardiovascular: Positive for radiating pain to chest, Negative for palpitations. 21:39 Respiratory: Negative for cough, shortness of breath, wheezing. 21:39 Abdomen/GI: Negative for abdominal pain, nausea, vomiting, and diarrhea. 21:39 Back: Positive for pain at rest, pain with movement, of the left scapular area, right scapular area, left subscapular area and right subscapular area. 21:39 : Negative for urinary symptoms. 21:39 Skin: Negative for cellulitis, rash. 21:39 Neuro: Negative for altered mental status, headache, weakness. 21:39 All other systems are negative. Exam: 21:44 Head/Face: Normocephalic, atraumatic. cp 21:44 Constitutional: The patient appears in no acute distress, alert, awake, non-diaphoretic, non-toxic, well developed, well nourished, obese. 21:44 Eyes: Periorbital structures: appear normal, Conjunctiva: normal, no exudate, no injection, Sclera: no appreciated abnormality, Lids and lashes: appear normal, bilaterally. 21:44 ENT: External ear(s): are unremarkable, Nose: is normal, Mouth: Lips: moist, Oral mucosa: moist, Posterior pharynx: Airway: no evidence of obstruction, patent. 21:44 Neck: C-spine: vertebral tenderness, is not appreciated, crepitus, is not appreciated, ROM/movement: is normal, is supple, without pain, no range of motions limitations. 21:44 Chest/axilla: Inspection: normal, Palpation: is normal, no crepitus, no tenderness. 21:44 Cardiovascular: Rate: normal, Rhythm: regular, Heart sounds: murmur, not appreciated, Edema: is not appreciated. 21:44 Respiratory: the patient does not display signs of respiratory distress, Respirations: normal, no use of accessory muscles, no retractions, labored breathing, is not present, Breath sounds: are clear throughout, no decreased breath sounds, no stridor, no wheezing. 21:44 Abdomen/GI: Exam negative for discomfort, distension, guarding, Inspection: abdomen appears normal. 21:44 Back: pain, that is mild, of the left scapular area, right scapular area, left subscapular area and right subscapular area, ROM is normal. 21:44 Skin: no rash present. 21:44 Neuro: Orientation: to person, place \T\ time. Mentation: is normal, Motor: moves all fours, strength is normal. Vital Signs: 19:50 Pulse 104; Resp 18 S; Temp 97.6(TE); Pulse Ox 98% on R/A; Weight 90.72 kg (R); Height 5 ca1 ft. 0 in. (152.40 cm) (R); Pain 8/10; 19:53 BP 123 / 91; ca1 22:47 BP 110 / 76 LA Sitting (auto/lg); Pulse 99 MON; Resp 16 S; Temp 98.9(O); Pulse Ox 100% bs2 on R/A; Pain 9/10; 19:50 Body Mass Index 39.06 (90.72 kg, 152.40 cm) ca1 MDM: 21:29 Patient medically screened. cp 22:20 Differential diagnosis: muscle strain, pneumothorax. Data reviewed: vital signs, nurses cp notes, radiologic studies, plain films. Test interpretation: by ED physician or midlevel provider: chest xray negative for infiltrates. Counseling: I had a detailed discussion with the patient and/or guardian regarding: the historical points, exam findings, and any diagnostic results supporting the discharge/admit diagnosis, radiology results, to return to the emergency department if symptoms worsen or persist or if there are any questions or concerns that arise at home. 01/15 22:12 Order name: Urine Dipstick-Ancillary; Complete Time: 22:31 EDMS 01/15 22:31 Interpretation: Normal except: UBLD 1+. cp 01/15 22:13 Order name: Urine --Ancillary (enter results) mw2 01/15 21:35 Order name: XRAY Chest (1 view) cp 01/15 22:13 Order name: Urine Test (obtain specimen); Complete Time: 22:14 mw2 01/15 22:13 Order name: Urine Dipstick-Ancillary (obtain specimen); Complete Time: 22:14 mw2 Administered Medications: 21:35 Drug: traMADol 50 mg Route: PO; bs2 22:49 Follow up: Response: No adverse reaction bs2 Disposition: 23:21 Co-signature as Attending Physician, Hal Watters MD. rn Disposition Summary: 01/15/21 22:23 Discharge Ordered Location: Home cp Problem: new cp Symptoms: are unchanged cp Condition: Stable cp Diagnosis - Dorsalgia, unspecified cp Followup: cp - With: Private Physician - When: 2 - 3 days - Reason: Recheck today's complaints Discharge Instructions: - Discharge Summary Sheet cp - Acute Back Pain, Adult cp Forms: - Medication Reconciliation Form cp - Thank You Letter cp - Antibiotic Education cp - Prescription Opioid Use cp Prescriptions: - Lidoderm 5 % Topical adhesive patch,medicated - apply 2 patch by TOPICAL route once daily As needed; 2 box; Refills: 0, Product cp Selection Permitted - Diclofenac Sodium 75 mg Oral tablet,delayed release (DR/EC) - take 1 tablet by ORAL route 2 times per day; 20 tablet; Refills: 0, Product cp Selection Permitted - orphenadrine citrate 100 mg Oral Tablet Sustained Release - take 1 tablet by ORAL route 2 times per day As needed; 20 tablet; Refills: 0, cp Product Selection Permitted Signatures: Dispatcher [employer] EDMS Hal Watters MD MD rn Michael Dowd PA PA cp Ian Aquino mw2 Shanita Gale RN RN ca1 Marla Zepeda RN RN bs2 Corrections: (The following items were deleted from the chart) 19:53 19:52 Allergies: No Known Allergies; ca1 ca1
[2021-01-15] MEDS ORDERED: TRAMADOL HCL 50 MG TAB ONE (22:56)
[2021-01-15 23:04] VITALS: BP 110/76; TEMP 98.9; O2SAT 100
--- NOTE | 2021-01-16 07:23 | RAD REPORT ---
EXAM DESCRIPTION: RAD - Chest Single View - 01/15/2021 10:51 pm CLINICAL HISTORY: upper back pain;Chest pain COMPARISON: Chest Single View dated 07/20/2020; Chest Single View dated 07/02/2020; Chest Single View d ated 04/27/2020; Chest Single View dated 01/09/2020 FINDINGS: No evidence of edema or pneumonia. The heart size is within normal limits.No acute osseous abnormality. No significant pleural effusions or pneumothorax. IMPRESSION: No acute cardiopulmonary disease.
== END 2021-01-15 22:48 | disposition home or self-care (01) ==
LOC: ER 18:45
DX: M54.9 Dorsalgia, unspecified (principal); Z88.5 Allergy status to narcotic agent; Z88.8 Allergy status to other drugs, medicaments and biological substances
CPT/HCPCS: 71045; 81003; 81025; 99283

== ENCOUNTER 2021-01-24 01:42 | Emergency (ER) | payer OTHER ==
--- OUTSIDE RECORDS SUMMARY | 2021-01-24 01:47 | XMS REPORT | Continuity of Care Document ---
:1995 Author Organization [facility] t Address [address] [place] [address] Care Team Providers Name Role Phone Asked, Pcp Primary Care Physician Unavailable Gume CHANCE Attending Clinician Geovani Agarwal Attending Clinician Lluvia Rice Attending Clinician Supa AREVALO E Attending Clinician Singer FERNÁNDEZ Attending Clinician KELSI Attending Clinician Unavailable Payers Payer Name Policy Type Policy Number Effective Date Expiration Date S ource Problems Condition Condition Condition Status Onset Resolution Last Treating Co mments Source Name Details Category Date Date Treatment Clinician Date No known No known Disease Metho di active active st problems problems Hospit a l Allergies, Adverse Reactions, Alerts Allergy Allergy Status Severity Reaction(s) Onset Inactive Treating Comm ents Source Name Type Date Date Clinician aidanorphcortez DA Active [place] [facility] [place] Butorpha Propensi Active Palpitations 2018-06 Methodi nol ty to 08-22 st Tartrate adverse 00:00: Hospita reaction 00 l s to drug morphine DA Active [facility] 1-19 [facility] [place] [facility] 1[facility] [place] tramadol [place] 2017-06 [facility] [place] Tramadol Propensi Active Other (See headache Methodi ty to Comments) 03-11 st adverse 00:00: Hospita reaction 00 l s to drug Acetamin Propensi Active Shortness Of Methodi ophen-Co ty to Breath 03-11 st deine adverse 00:00: Hospita reaction 00 l s to drug No Known DA Active [facility] Allergie 3-14 [facility] [place] Family History Family Member Diagnosis Comments Start Date Stop Date Source Natural mother Diabetes [facility] Natural mother Menstrual problems [facility] Social History Social Habit Start Date Stop Date Quantity Comments Source Tobacco use and 2019-06-21 2019-06-21 [facility] used [facility] Alcohol intake 2019-06-21 2019-06-21 Current drinker [facility] 00:00:00 00:00:00 of alcohol Hospital (finding) Alcohol Comment 2016-04-28 2016-04-28 social, weekly [facility] 00:00:00 00:00:00 Hospital Sex Assigned At [birth year] [facility] 00[facility] Smoking Status Start Date Stop Date Source [facility] smoker [facility] Medications Ordered Filled Start Stop Current Ordering Indication Dosage Frequency Signature Comments Components Source Medication Medication Date Date Medication? Clinician (SIG) Name Name ibuprofen 2018-06 Yes 800mg Q6H Take 800 Met hodi (AD[facility]) 200 2-[address] MG tablet 23:05: mouth [facility]osp[facility] 17 every 6 l (six) hours as needed for mild pain. acetaminoph 2018-06 Yes 2{tbl} Take 2 Me thodi en-caff-pyr 2-[address] ilamine 23:05: mouth. Hospita 500-60-15 17 l mg tablet Procedures This patient has no known procedures. Plan of Care Planned Activity Planned Date Details Comments Source Future Scheduled Test COVID-19 VACCINE (1) [facility] [code = COVID-19 VACCINE (1)] Future Scheduled Test Hepatitis C screening [facility] (procedure) [code = 510141827] Future Scheduled Test Screening for [facility] malignant neoplasm of cervix (procedure) [code = 103649962] Future Scheduled Test INFLUENZA VACCINE [facility] [code = INFLUENZA VACCINE] Encounters Start End Encounter Admission Attending Care Care Encounter Source Date/Time Date/Time Type Type Clinicians Facility Department ID 2020-12-31 2020-12-31 Emergency Gume, [facility] [id number] 02:02:00 03:26:00 Akiko Roberto 350.1.13.10 [place] 4.2.7.2.686 [place] [id number] 2020-11-20 2020-11-20 Emergency Chap[place]ito [facility] [id number] 11:47:00 15:01:00 Sammi Olivo Roberto 350.1.13.10 [place] 4.2.7.2.686 [place] [id number] [facility] 2020-09-26 2020-09-26 Emergency Tricia Simmons [facility] [id number] 18:51:00 22:39:00 Lluvia Mejia 350.1.13.10 [place] 4.2.7.2.686 [place] [address] [id number] 2020-07-17 2020-07-17 Emergency Austin Cowart [facility] 1.2.840 .114 [id number] 05:53:00 08:59:00 Dani Kauffman 350.1.13.10 [place] 4.2.7.2.686 [place] [address] [id number] 2019-06-21 2019-06-21 Dillon [facility] Tita4 [id number] [place] 00:00:00 00:00:00 BEAU [address] Results Test Description Test Time Test Comments Results Result Comments Source CHLAMYDIA GC DNA BY PCR 2020-08-06 14:24:00 Test Item Value Reference Range Interpretation Comme nts C. TRACHOMATIS DNA BY PCR (test Negative Negative code = CHLAMTDNA) N. GONORRHOEAE DNA BY PCR (test Negative Negative Performed At: [facility] James code = NGONORDNA) [id number] [address] [place], [place] [id number] Rodrigues MD Ph :[phone] - DUP AB/PEL/SC/[id number] 14:12:00 [facility] : 1995 Sex: F Patient Name: FATMATA DEGROOT Unit No: [id number] EXAMS: CPT CODE: [id number] DUP AB/PEL/SC/LTD 00444 PELVIC ULTRASOUND, 08/01/2020: COMPARISON: CT pelvis dated [...] Orig Print D/T: S: 08/01/2020 (1415) [facility] [place] [facility] NAME: FATMATA DEGROOT Radiology DepartmentPHYS: ELLISSalimaWinter Ortiz MD [address] : 1995 AGE: 24 SEX: F [place] [address] LOC: ShaylaERS PHONE #: [phone] EXAM DATE: 08/01/2020 STATUS: REG ER FAX #: [phone] RAD NO: Page 1 Signed Report Patient Name: FATMATA DEGROOT Unit No: [id number] EXAMS: CPT CODE: [id number] DUP AB/PEL/SC/LTD 85658 <Continued> [facility] [place] [facility] NAME: FATMATA DEGROOT Radiology Department PHYS: ELLISSalimaWinter Ortiz MD [address] : 1995 AGE: 24 SEX: F [place] [address] LOC: ShaylaERS PHONE #: [phone] DATE: 08/01/2020 STATUS: REG ER FAX #: [phone] RAD NO: Page 2 Signed Report- US TRANSVAGINAL [id number] 14:12:[address] FT[facility] DEGR[facility]OT : 1995 Sex: F Patient Name: FATMATA DEGROOT Unit No: [id number] EXAMS: CPT CODE: [id number] US TRANSVAGINAL W/PELVIS 46604 PELVIC ULTRASOUND, 08/01/2020: COMPARISON: CT pelvis dated [...] Austin Barrera Technologist: Alexandra Elder RDMS Probe: [id number] Trnscrbd D/ (1412) [id number] Orig Print D/T: S: 08/01/2020 (1415) [facility] [place] [facility] NAME: FATMATA DEGROOT Radiology DepartmentPHYS: Winter Landaverde MD [address] : 1995 AGE: 24 SEX: F [place], [place] [address] LOC: FSalimaERS PHONE #: [phone] EXAM DATE: 08/01/2020 STATUS: REG ER FAX #: [phone] RAD NO: Page 1 Signed Report Patient Name: FATMATA DEGROOT Unit No: [id number] EXAMS: CPT CODE: [id number] US TRANSVAGINAL W/PELVIS 48222 <Continued> [facility] [place] [facility] NAME: FATMATA DEGROOT Radiology Department PHYS: Winter Landaverde MD [address] : 1995 AGE: 24 SEX: F [place], [place] [address] LOC: SANDY PHONE #: [phone] DATE: 08/01/2020 STATUS: REG ER FAX #: [phone] RAD NO: Page 2 Signed Report- US PELVIS [id number] 14:12:[address] : 1995 Sex: F Patient Name: FATMATA DEGROOT Unit No: [id number] EXAMS: CPT CODE: [id number] US PELVIS COMPLETE 72864 PELVIC ULTRASOUND, 08/01/2020: COMPARISON: CT pelvis dated [...] Orig Print D/T: S: 08/01/2020 (1415) [facility] [place] [facility] NAME: FATMATA DEGROOT Radiology DepartmentPHYS: ELLISSalimaWinter Ortiz MD [address] : 1995 AGE: 24 SEX: F [place] [address] [facility] PHONE #: [phone] EXAM DATE: 08/01/2020 STATUS: REG ER FAX #: [phone] RAD NO: Page 1 Signed Report Patient Name: FATMATA DEGROOT Unit No: [id number] EXAMS: CPT CODE: [id number] US PELVIS COMPLETE 86377 <Continued> [facility] [place] [facility] NAME: FATMATA DEGROOT Radiology Department PHYS: Winter Landaverde MD [address] : 1995 AGE: 24 SEX: F [place] [address] LOC: ShaylaERS PHONE #: [phone] DATE: 08/01/2020 STATUS: REG ER FAX #: [phone] RAD NO: Page 2 Signed Report- CT ABD PELVIS W/O [id number] 10:58:00[facility] : 1995 Sex: F Patient Name: FATMATA DEGROOT Unit No: [id number] EXAMS: CPT CODE: [id number] CT ABD PELVIS W/O CONT [address]4489 CT ABDOMEN/CT STONE SURVEY WITHOUT CONTRAST, 08/01/2020 [...] mm right middle lobe pulmonary nodule. [facility] [place] [facility] NAME: FATMATA DEGROOT Radiology Department PHYS: Winter Landaverde MD [address] : 1995 AGE: 24 SEX: F [place] [address] LOC: SANDY PHONE #: [phone] EXAM DATE: 08/01/2020 STATUS: REG ER FAX #:[phone] RAD NO: Page 1 Signed Report 1 Patient Name: FATMATA DEGROOT Unit No: [id number] EXAMS: CPT CODE: [id number] CT ABD PELVIS W/O CONT 00049 <Continued> CT PELVIS WITHOUT CONTRAST: No opaque [...] Joe Agudelo MD CC: Winter Mccollum MD; [facility] Technologist: Art Church RT, CT CTDI: 13.28 DLP: 653.43 Trnscrbd D/ (1051) t.SDR.AJ13 [facility] NAME: FATMATA DEGROOT Radiology Department PHYS: Winter Wilkins MD [address] : 1995 AGE: 24 SEX: F [place] [address] LOC: .ERS PHONE #: [phone] EXAM DATE: 08/01/2020 STATUS: REG ER FAX #: [phone] RAD NO: Page 2 Signed Report 1 Patient Name: FATMATA DEGROOT Unit No: [id number] EXAMS: CPT CODE: [id number] CT ABD PELVIS W/O CONT 21231 <Continued> Orig Print D/T: S: 08/01/2020 (1102) [facility] NAME: FATMATA DEGROOT Radiology Department PHYS: Winter Landaverde MD [address] : 1995 AGE: 24 SEX: F [place] [address] LOC: .ERS PHONE #: [phone] EXAM DATE: 08/01/2020 STATUS: REG ER FAX #: [phone] RAD NO: Page 3 Signed Report 1UA RFLX MICR CULT IF [id number] 10:04:00 Test Item Value Reference Range Interpretation [...] culture: Suprapubic PainSpecimen Description: CLEAN CATCHUR HCG [id number] 10:04:00 Test Item Value Reference Range Interpretation [...] Description: CLEAN CATCHUA RFLX MICR CULT IF [id number] 10:03:00 Test Item Value Reference Range Interpretation [...] culture: Suprapubic PainSpecimen Description: CLEAN CATCHUR HCG [id number] 10:03:00 Test Item Value Reference Range Interpretation Comments UR HCG QUAL (test code = HCGQLU) Indication for culture: Suprapubic PainSpecimen Description: CLEAN CATCHCBC W/AUTO [id number] 07:27:00 Test Item Value Reference Range Interpretation [...] NORMAL code = PLTMR) AG HEPATITIS B [id number] 04:15:00 Test Item Value Reference Range Interpretation Comments AG HEPATITIS B SURFACE (test code NONREACTIVE NONREACTIVE = HBSAG) AB HEPATITIS C [id number] 04:15:00 Test Item Value Reference Range Interpretation Comments AB HEPATITIS C (test code = NONREACTIVE NONREACTIVE HCVAB) SIGNAL TO CUTOFF (test code = 0.13 <0.80 N CUTOFF) RUBELLA [id number] 04:15:00 Test Item Value Reference Range Interpretation Comments RUBELLA SCREEN 70.2 IUnit/ml Results >10. 0IUnits/ml (test code = are considered positive RUBSC) inaccordance wi th the CLSI guidelines and based on the [employer] S tandard for Anti-Rubell a serum as anindicator of immune status and a br eakpoint to detect mostseropositiv e persons. AB [id number] 04:15:00 Test Item Value Reference Range Interpretation Comments AB TREPONEMA (test code = TREPAB) NONREACTIVE NONREACTIVE AG HEPATITIS B [id number] 04:00:00 Test Item Value Reference Range Interpretation Comments AG HEPATITIS B SURFACE (test code NONREACTIVE NONREACTIVE = HBSAG) AB HEPATITIS C [id number] 04:00:00 Test Item Value Reference Range Interpretation Comments AB HEPATITIS C (test code = HCVAB) NONREACTIVE SIGNAL TO CUTOFF (test code = CUTOFF) <0.80 RUBELLA [id number] 04:00:00 Test Item Value Reference Range Interpretation Comments RUBELLA SCREEN 70.2 IUnit/ml Results >10. 0IUnits/ml (test code = are considered positive RUBSC) inaccordance wi th the CLSI guidelines and based on the [employer] S tandard for Anti-Rubell a serum as anindicator of immune status and a br eakpoint to detect mostseropositiv e persons. AB [id number] 04:00:00 Test Item Value Reference Range Interpretation Comments AB TREPONEMA (test code = TREPAB) NONREACTIVE NONREACTIVE CBC W/AUTO [id number] 00:36:00 Test Item Value Reference Range Interpretation [...]
[2021-01-24 03:22] LABS: Urine Blood 1+ (Negative); Urine Glucose Negative (Negative); Urine Protein Negative (Negative); Urine Specific Gravity 1.025 (1.005-1.030)
[2021-01-24] MEDS ORDERED: ONDANSETRON 4 MG (ODT) TAB ONE (03:35)
[2021-01-24 03:41] LABS: Urine Specific Gravity/Preg 1.025 (1.005-1.030)
--- NOTE | 2021-01-24 04:27 | EDPHYS ---
Physician Documentation [facility] Name: Carla Duncan Age: 25 yrs Sex: Female : 1995 Arrival Date: 01/24/2021 Time: 01:49 Bed 25 Private MD: Aurelio La ED Physician April Alexander HPI: 01/24 02:52 This 25 yrs old Female presents to ER via Ambulatory with complaints of Back ma2 Pain, Knee Pain, Sore Throat, Shortness Of Breath, Headache, Fever. 02:52 Severity of symptoms: At their worst the symptoms were mild. The patient has ma2 experienced similar episodes in the past. Patient is here with nausea vomiting diarrhea, body aches for 2 days, she would like to be tested for Covid, she did had Covid November 2019,. 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 - Social history:: Smoking status: Patient denies any tobacco usage or history of. Patient uses alcohol, occasionally. Patient/guardian denies using street drugs. - Family history:: not pertinent. ROS: 02:52 Constitutional: Negative for fever, chills, and weight loss. ma2 02:52 All other systems are negative. Exam: 02:52 Constitutional: This is a well developed, well nourished patient who is awake, alert, ma2 and in no acute distress. Head/Face: Normocephalic, atraumatic. Eyes: Pupils equal round and reactive to light, extra-ocular motions intact. Lids and lashes normal. Conjunctiva and sclera are non-icteric and not injected. Cornea within normal limits. Periorbital areas with no swelling, redness, or edema. ENT: Nares patent. No nasal discharge, no septal abnormalities noted. Tympanic membranes are normal and external auditory canals are clear. Oropharynx with no redness, swelling, or masses, exudates, or evidence of obstruction, uvula midline. Mucous membranes moist. Neck: Trachea midline, no thyromegaly or masses palpated, and no cervical lymphadenopathy. Supple, full range of motion without nuchal rigidity, or vertebral point tenderness. No Meningismus. Chest/axilla: Normal chest wall appearance and motion. Nontender with no deformity. No lesions are appreciated. Cardiovascular: Regular rate and rhythm with a normal S1 and S2. No gallops, murmurs, or rubs. Normal PMI, no JVD. No pulse deficits. Respiratory: Lungs have equal breath sounds bilaterally, clear to auscultation and percussion. No rales, rhonchi or wheezes noted. No increased work of breathing, no retractions or nasal flaring. Abdomen/GI: Soft, non-tender, with normal bowel sounds. No distension or tympany. No guarding or rebound. No evidence of tenderness throughout. Skin: Warm, dry with normal turgor. Normal color with no rashes, no lesions, and no evidence of cellulitis. MS/ Extremity: Pulses equal, no cyanosis. Neurovascular intact. Full, normal range of motion. Neuro: Awake and alert, GCS 15, oriented to person, place, time, and situation. Cranial nerves II-XII grossly intact. Motor strength 5/5 in all extremities. Sensory grossly intact. Cerebellar exam normal. Normal gait. Vital Signs: 02:03 BP 124 / 85; Pulse 112; Resp 16 S; Temp 97.6(TE); Pulse Ox 99% on R/A; Weight 90.72 kg bb (R); Height 5 ft. 0 in. (152.40 cm) (R); Pain 8/10; 04:20 BP 122 / 80; Pulse 90; Resp 18; Pulse Ox 99% ; ea 02:03 Body Mass Index 39.06 (90.72 kg, 152.40 cm) bb MDM: 02:26 Patient medically screened. ma2 02:52 Differential diagnosis: sprain, covid, gastroenteritis vs gastritis. Data reviewed: ma2 vital signs, nurses notes. Counseling: I had a detailed discussion with the patient and/or guardian regarding: the historical points, exam findings, and any diagnostic results supporting the discharge/admit diagnosis, the presence of at least one elevated blood pressure reading (>120/80) during this emergency department visit, the need for outpatient follow up. 02:55 Response to treatment: the patient's symptoms have markedly improved after treatment. me2 01/24 02:51 Order name: COVID-19 : Document "Date of Symptom Onset" if Symptomatic. me2 01/24 03:21 Order name: Urine Dipstick-Ancillary; Complete Time: 03:31 EDMS 01/24 03:37 Order name: Urine --Ancillary (enter results); Complete Time: 03:51 tt3 01/24 04:24 Order name: SARS-COV-2 RT PCR; Complete Time: 04:26 EDMS 01/24 02:51 Order name: Urine Dipstick-Ancillary (obtain specimen); Complete Time: 03:33 ma2 01/24 03:37 Order name: Urine Test (obtain specimen); Complete Time: 03:37 tt3 Administered Medications: 03:15 Drug: Ondansetron 4 mg Route: PO; ea 04:21 Follow up: Response: No adverse reaction ea Disposition Summary: 01/24/21 04:27 Discharge Ordered Location: Home ma2 Condition: Stable ma2 Diagnosis - Nausea with vomiting, unspecified - and diarrhea ma2 Followup: ma2 - With: Private Physician - When: Tomorrow - Reason: Continuance of care Discharge Instructions: - Discharge Summary Sheet ma2 - Nausea and Vomiting, Adult ma2 Forms: - Medication Reconciliation Form ma2 - Thank You Letter ma2 - Antibiotic Education ma2 - Prescription Opioid Use ma2 Prescriptions: - Zofran 4 mg Oral Tablet - take 1 tablet by ORAL route every 12 hours As needed; 20 tablet; Refills: 0, ma2 Product Selection Permitted Signatures: Dispatcher [employer] EDMS Carlene Lewis RN RN bb Antunez, Elena, RN RN ea Alzahri, Mohammad, MD MD ma2 Daniele Boudreaux tt3 Corrections: (The following items were deleted from the chart) 03:27 02:52 CORONAVIRUS ordered. EDDC EDMS
--- NOTE | 2021-01-24 04:27 | ER ---
Nurse's Notes [facility] [place] Name: Carla Duncan Age: 25 yrs Sex: Female : 1995 Arrival Date: 01/24/2021 Time: 01:49 Bed 25 Private MD: Aurelio La Diagnosis: Nausea with vomiting, unspecified-and diarrhea Presentation: 01/24 02:03 Chief complaint: Patient states: she went to a [employer] boil last Wednesday and she has bb been sick since then she has pain all over. Coronavirus screen: At this time, the client does not indicate any symptoms associated with coronavirus-19. Ebola Screen: No symptoms or risks identified at this time. Initial Sepsis Screen: Does the patient meet any 2 criteria? No. Patient's initial sepsis screen is negative. Does the patient have a suspected source of infection? No. Patient's initial sepsis screen is negative. Risk Assessment: Do you want to hurt yourself or someone else? Patient reports no desire to harm self or others. Onset of symptoms was December 2020. 02:03 Method Of Arrival: Ambulatory bb 02:03 Acuity: VENKATESH 3 bb Triage Assessment: 02:04 General: Appears in no apparent distress. Behavior is calm, cooperative. Pain: bb Complains of pain in all over Pain currently is 8 out of 10 on a pain scale. Neuro: Level of Consciousness is awake, alert, obeys commands, Oriented to person, place, time, situation. Cardiovascular: Capillary refill < 3 seconds Patient's skin is warm and dry. Respiratory: Respiratory effort is even, unlabored, Respiratory pattern is regular. GI: No signs and/or symptoms were reported involving the gastrointestinal system. Derm: Skin is pink, warm \T\ dry. Musculoskeletal: Circulation, motion, and sensation intact. 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 - Social history:: Smoking status: Patient denies any tobacco usage or history of. Patient uses alcohol, occasionally. Patient/guardian denies using street drugs. - Family history:: not pertinent. Screenin:28 Abuse screen: Denies threats or abuse. Nutritional screening: No deficits noted. ea Tuberculosis screening: No symptoms or risk factors identified. Fall Risk None identified. Assessment: 02:28 General: Appears in no apparent distress. Behavior is calm, cooperative, appropriate ea for age. Pain: Denies pain. Neuro: Level of Consciousness is awake, alert, obeys commands, Oriented to person, place, time. Cardiovascular: Patient's skin is warm and dry. Respiratory: Airway is patent Respiratory effort is even, unlabored, Respiratory pattern is regular, symmetrical. Derm: Skin is pink, warm \T\ dry. 03:34 Reassessment: Patient and/or family updated on plan of care and expected duration. Pain ea level reassessed. Patient is alert, oriented x 3, equal unlabored respirations, skin warm/dry/pink. 04:31 Reassessment: Patient and/or family updated on plan of care and expected duration. Pain ea level reassessed. Patient is alert, oriented x 3, equal unlabored respirations, skin warm/dry/pink. Discharge instruction given to patient verbalized the understanding of instruction left ED ambulatory tolerating well. Vital Signs: 02:03 BP 124 / 85; Pulse 112; Resp 16 S; Temp 97.6(TE); Pulse Ox 99% on R/A; Weight 90.72 kg bb (R); Height 5 ft. 0 in. (152.40 cm) (R); Pain 8/10; 04:20 BP 122 / 80; Pulse 90; Resp 18; Pulse Ox 99% ; ea 02:03 Body Mass Index 39.06 (90.72 kg, 152.40 cm) bb ED Course: 01:49 Patient arrived in ED. es 01:50 Aurelio La MD is Private Physician. es 02:04 Triage completed. bb 02:04 Arm band placed on Patient placed in waiting room, Patient notified of wait time. bb 02:26 April Alexander MD is Attending Physician. ma2 02:28 Lilly Jonse RN is Primary Nurse. ea 02:29 Patient has correct armband on for positive identification. Bed in low position. Call ea light in reach. Side rails up X2. 04:38 No provider procedures requiring assistance completed. Patient did not have IV access ea during this emergency room visit. Administered Medications: 03:15 Drug: Ondansetron 4 mg Route: PO; ea 04:21 Follow up: Response: No adverse reaction ea Outcome: 04:27 Discharge ordered by . amna 04:38 Discharged to home ambulatory. ea 04:38 Condition: stable 04:38 Discharge instructions given to patient, Instructed on discharge instructions, follow up and referral plans. medication usage, Demonstrated understanding of instructions, follow-up care, medications, Prescriptions given X 1. 04:39 Patient left the ED. ea Signatures: Angelica Herrera Brenda, RN RN Lilly Dang RN RN April Mari MD MD ma2
[2021-01-24 06:06] VITALS: TEMP 97.6; O2SAT 99
[2021-01-24 06:08] VITALS: BP 122/80
== END 2021-01-24 04:39 | disposition home or self-care (01) ==
LOC: ER 01:42
DX: R50.9 Fever, unspecified (principal); R11.2 Nausea with vomiting, unspecified; R19.7 Diarrhea, unspecified; Z20.822 Contact with and (suspected) exposure to COVID-19; F41.9 Anxiety disorder, unspecified; F31.9 Bipolar disorder, unspecified; M54.9 Dorsalgia, unspecified; M25.569 Pain in unspecified knee; J02.9 Acute pharyngitis, unspecified; R06.02 Shortness of breath; R51.9 Headache, unspecified
CPT/HCPCS: 81025; 81003; 99283; U0003

== ENCOUNTER 2021-02-12 13:36 | Emergency (ER) | payer OTHER ==
--- OUTSIDE RECORDS SUMMARY | 2021-02-12 13:38 | XMS REPORT | Continuity of Care Document ---
:1995 Author Organization [facility] [place] t Address [address] [place]. [address] [place] [address] Care Team Providers Name Role Phone Asked, Pcp Primary Care Physician Unavailable Gume CHANCE Attending Clinician Geovani Agarwal Attending Clinician Lluvia Rice Attending Clinician Supa AREVALO E Attending Clinician Singer FERNÁDNEZ Attending Clinician Payers Payer Name Policy Type Policy Number Effective Date Expiration Date S ource Problems Condition Condition Condition Status Onset Resolution Last Treating Co mments Source Name Details Category Date Date Treatment Clinician Date No known No known Disease Toddo raheel active active st problems problems Hospit a l Allergies, Adverse Reactions, Alerts Allergy Allergy Status Severity Reaction(s) Onset Inactive Treating Comm ents Source Name Type Date Date Clinician hellen DA Active [place] [facility] [place] Butorpha Propensi Active Palpitations 2018-06 Methodi nol ty to 2-25 st Tartrate adverse 00:00: Hospita reaction 00 l s to drug morphine DA Active U [facility] 1-19 [facility] [place] codeine DA Active [place] [facility] 1[facility] [place] tramadol DA Active DE 2017-06 [facility] 2- [facility] [place] Tramadol Propensi Active Other (See headache Methodi ty to Comments) 9-14 st adverse 00:00: Hospita reaction 00 l s to drug Acetamin Propensi Active Shortness Of Methodi ophen-Co ty to Breath 9-14 st deine adverse 00:00: Hospita reaction 00 l s to drug No Known DA Active U [facility] Allergie 3-14 [facility] [place] Family History Family Member Diagnosis Comments Start Date Stop Date Source Natural mother Diabetes [facility] Natural mother Menstrual problems [facility] Social History Social Habit Start Date Stop Date Quantity Comments Source Tobacco use and 2019-06-21 2019-06-21 Never used [facility] 00:00:00 00:00:00 Hospital Alcohol intake 2019-06-21 2019-06-21 Current drinker [facility] 00:00:00 00:00:00 of alcohol [facility] (finding) Alcohol Comment 2016-04-28 2016-04-28 social, weekly [facility] 00:00:00 00:00:00 Hospital Sex Ass[birth year] At [birth year] [facility] 00:00:00 00:00:00 Hospital Smoking Status Start Date Stop Date Source Never smoker [facility] Medications Ordered Filled Start Stop Current Ordering Indication Dosage Frequency Signature Comments Components Source Medication Medication Date Date Medication? Clinician (SIG) Name Name ibuprofen 2018-06 Yes 800mg Q6H Take 800 Met hodi (ADVIL) 200 2-[address] MG tablet 23:05: mouth Hospita 17 every 6 l (six) hours as needed for mild pain. acetaminoph 2018- Yes 2{tbl} Take 2 Me thodi en-caff-pyr 2-[address] ilamine 23:05: mouth. Hospita 500-60-15 17 l mg tablet Procedures This patient has no known procedures. Plan of Care Planned Activity Planned Date Details Comments Source Future Scheduled Test Hepatitis C screening [facility] (procedure) [code = 146127822] Future Scheduled Test Screening for [facility] malignant neoplasm of cervix (procedure) [code = 840837219] Future Scheduled Test INFLUENZA VACCINE [facility] [code = INFLUENZA VACCINE] Future Scheduled Test COVID-19 VACCINE (1) [facility] [code = COVID-19 VACCINE (1)] Encounters Start End Encounter Admission Attending Care Care Encounter Source Date/Time Date/Time Type Type Clinicians Facility Department ID 2020-12-31 2020-12-31 Emergency [place], [facility] [id number] 02:02:00 03:26:00 Akiko Roberto [id number] [place] 4.2.7.2.686 [place] [id number] 2020-11-20 2020-11-20 Emergency [place], [facility] [id number] 11:47:00 15:01:00 Sammi Olivo Roberto [id number] [place] 4.2.7.2.686 [place] [id number] 2020-09-26 2020-09-26 Emergency Tricia Simmons [facility] [id number] 18:51:00 22:39:00 Lluvia Mejia 350.1.13.10 [place] 4.2.7.2.686 [place] [id number] 2020-07-17 2020-07-17 Emergency Austin Cowart [facility] 1.2.840 [id number] 05:53:00 08:59:00 Dani Kauffman 350.1.13.10 [place] 4.2.7.2.686 [place] [address] [id number] Results Test Description Test Time Test Comments Results Result Comments Source CHLAMYDIA GC DNA BY PCR 2020-08-06 14:24:00 Test Item Value Reference Range Interpretation Comme nts C. TRACHOMATIS DNA BY PCR (test Negative Negative code = CHLAMTDNA) N. GONORRHOEAE DNA BY PCR (test Negative Negative Performed At: [facility] code = NGONORDNA) [id number] [address] [facility], [place] [id number] Cayla Rodrigues MD Ph :[phone] - DUP AB/PEL/SC/[id number] 14:12:00 [facility] : 1995 Sex: F Patient Name: FATMATA DEGROOT Unit No: [id number] EXAMS: CPT CODE: [id number] DUP AB/PEL/SC/LTD 84019 PELVIC ULTRASOUND, 08/01/2020: COMPARISON: CT pelvis dated [...] Alexandra Elder RDMS Probe: Trnscrbd D/ (1412) [id number] Orig Print D/T: S: 08/01/2020 (1415) [facility] NAME: FATMATA DEGROOT Radiology DepartmentPHYS: Winter Landaverde MD [address] : 1995 AGE: 24 SEX: F [place] [address] LOC: F.ERS PHONE #: [phone] EXAM DATE: 08/01/2020 STATUS: REG ER FAX #: [phone] RAD NO: Page 1 Signed Report Patient Name: FATMATA DEGROOT Unit No: [id number] EXAMS: CPT CODE: [id number] DUP AB/PEL/SC/LTD 23979 <Continued> [facility] NAME: FATMATA DEGROOT Radiology Department PHYS: Winter Landaverde MD [address] : 1995 AGE: 24 SEX: F [place] [address] LOC: Saran.ERS PHONE #: [phone] DATE: 08/01/2020 STATUS: REG ER FAX #: [phone] RAD NO: Page 2 Signed Report- US TRANSVAGINAL [id number] 14:12:00[facility] : 1995 Sex: F Patient Name: FATMATA DEGROOT Unit No: [id number] EXAMS: CPT CODE: [id number] US TRANSVAGINAL W/PELVIS 44169 PELVIC ULTRASOUND, 08/01/2020: COMPARISON: CT pelvis dated [...] Austin Barrera Technologist: Alexandra Elder RDMS Probe: [id number] Trnscrbd D/ (1412) [id number] Orig Print D/T: S: 08/01/2020 (1415) [facility] NAME: FATMATA DEGROOT Radiology DepartmentPHYS: Winter Landaverde MD [address] : 1995 AGE: 24 SEX: F [place], [place] [address] LOC: SANDY PHONE #: [phone] EXAM DATE: 08/01/2020 STATUS: REG ER FAX #: [phone] RAD NO: Page 1 Signed Report Patient Name: FATMATA DEGROOT Unit No: [id number] EXAMS: CPT CODE: [id number] US TRANSVAGINAL W/PELVIS 58625 <Continued> [facility] NAME: FATMATA DEGROOT Radiology Department PHYS: Winter Landaverde MD [address] : 1995 AGE: 24 SEX: F [place], [place] [address] LOC: SANDY PHONE #: [phone] DATE: 08/01/2020 STATUS: REG ER FAX #: [phone] RAD NO: Page 2 Signed Report- US PELVIS [id number] 14:12:00[facility] : 1995 Sex: F Patient Name: FATMATA DEGROOT Unit No: [id number] EXAMS: CPT CODE: [id number] US PELVIS COMPLETE 02136 PELVIC ULTRASOUND, 08/01/2020: COMPARISON: CT pelvis dated [...] Alexandra Elder RDMS Probe: Trnscrbd D/ (1412) [id number] Orig Print D/T: S: 08/01/2020 (1415) [facility] NAME: FATMATA DEGROOT Radiology DepartmentPHYS: Winter Landaverde MD [address] : 1995 AGE: 24 SEX: F [place] [address] LOC: ShaylaERS PHONE #: [phone] EXAM DATE: 08/01/2020 STATUS: REG ER FAX #: [phone] RAD NO: Page 1 Signed Report Patient Name: FATMATA DEGROOT Unit No: [id number] EXAMS: CPT CODE: [id number] US PELVIS COMPLETE 96643 <Continued> [facility] NAME: DEGROOTFATMATA PHILLIP Radiology Department PHYS: ELLISSalimaWinter Ortiz MD [address] : 1995 AGE: 24 SEX: F [place] [address] LOC: [place].ERS PHONE #: [phone] DATE: 08/01/2020 STATUS: REG ER FAX #: [phone] RAD NO: Page 2 Signed Report- CT ABD PELVIS W/O [id number] 10:58:00[facility] : 1995 Sex: F Patient Name: FATMATA DEGROOT Unit No: [id number] EXAMS: CPT CODE: [id number] CT ABD PELVIS W/O CONT 17290 CT ABDOMEN/CT STONE SURVEY WITHOUT CONTRAST, 08/01/2020 [...] right middle lobe pulmonary nodule. [facility] NAME: FATMATA DEGROOT Radiology Department PHYS: Winter Landaverde MD [address] : 1995 AGE: 24 SEX: F [place], [place] [address] LOC: SANDY PHONE #: [phone] EXAM DATE: 08/01/2020 STATUS: BALTAZAR KATE FAX #:[phone] RAD NO: Page 1 Signed Report 1 Patient Name: FATMATA DEGROOT Unit No: [id number] EXAMS: CPT CODE: [id number] CT ABD PELVIS W/O CONT 87911 <Continued> CT PELVIS WITHOUT CONTRAST: No opaque [...] Joe Agudelo MD CC: Winter Mccollum MD; [facility] Technologist: Art Church, RT, CT CTDI: 13.28 DLP: 653.43 Trnscrbd D/ (1058) [email or web address].SDR.AJ13 [facility] NAME: FATMATA DEGROOT Radiology Department PHYS: Winter Landaverde MD [address] : 1995 AGE: 24 SEX: F [place] [address] LOC: ShaylaERS PHONE #: [phone] EXAM DATE: 08/01/2020 STATUS: REG ER FAX #: [phone] RAD NO: Page 2 Signed Report 1 Patient Name: FATMATA DEGROOT Unit No: [id number] EXAMS: CPT CODE: [id number] CT ABD PELVIS W/O CONT 59827 <Continued> Orig Print D/T: S: 08/01/2020 (1101) [facility] NAME: FATMATA DEGROOT Radiology Department PHYS: Winter Landaverde MD [address] : 1995 AGE: 24 SEX: F [place] [address] LOC: Saran.ERS PHONE #: [phone] EXAM DATE: 08/01/2020 STATUS: REG ER FAX #: [phone] RAD NO: Page 3 Signed Report 1UA RFLX MICR CULT IF [id number] 10:04:00 Test Item Value Reference Range Interpretation [...] culture: Suprapubic PainSpecimen Description: CLEAN CATCHUR HCG [id number] 10:04:00 Test Item Value Reference Range Interpretation [...] Description: CLEAN CATCHUA RFLX MICR CULT IF [id number] 10:03:00 Test Item Value Reference Range Interpretation [...] culture: Suprapubic PainSpecimen Description: CLEAN CATCHUR HCG [id number] 10:03:00 Test Item Value Reference Range Interpretation Comments UR HCG QUAL (test code = HCGQLU) Indication for culture: Suprapubic PainSpecimen Description: CLEAN CATCHCBC W/AUTO [id number] 07:27:00 Test Item Value Reference Range Interpretation [...] NORMAL code = PLTMR) AG HEPATITIS B [id number] 04:15:00 Test Item Value Reference Range Interpretation Comments AG HEPATITIS B SURFACE (test code NONREACTIVE NONREACTIVE = HBSAG) AB HEPATITIS C [id number] 04:15:00 Test Item Value Reference Range Interpretation Comments AB HEPATITIS C (test code = NONREACTIVE NONREACTIVE HCVAB) SIGNAL TO CUTOFF (test code = 0.13 <0.80 N CUTOFF) RUBELLA [id number] 04:15:00 Test Item Value Reference Range Interpretation Comments RUBELLA SCREEN 70.2 IUnit/ml Results >10. 0IUnits/ml (test code = are considered positive RUBSC) inaccordance wi th the CLSI guidelines and based on the [employer] S tandard for Anti-Rubell a serum as anindicator of immune status and a br eakpoint to detect mostseropositiv e persons. AB [id number] 04:15:00 Test Item Value Reference Range Interpretation Comments AB TREPONEMA (test code = TREPAB) NONREACTIVE NONREACTIVE AG HEPATITIS B [id number] 04:00:00 Test Item Value Reference Range Interpretation Comments AG HEPATITIS B SURFACE (test code NONREACTIVE NONREACTIVE = HBSAG) AB HEPATITIS C [id number] 04:00:00 Test Item Value Reference Range Interpretation Comments AB HEPATITIS C (test code = HCVAB) NONREACTIVE SIGNAL TO CUTOFF (test code = CUTOFF) <0.80 RUBELLA [id number] 04:00:00 Test Item Value Reference Range Interpretation Comments RUBELLA SCREEN 70.2 IUnit/ml Results >10. 0IUnits/ml (test code = are considered positive RUBSC) inaccordance wi th the CLSI guidelines and based on the [employer] S tandard for Anti-Rubell a serum as anindicator of immune status and a br eakpoint to detect mostseropositiv e persons. AB [id number] 04:00:00 Test Item Value Reference Range Interpretation Comments AB TREPONEMA (test code = TREPAB) NONREACTIVE NONREACTIVE CBC W/AUTO [id number] 00:36:00 Test Item Value Reference Range Interpretation [...]
--- NOTE | 2021-02-12 16:23 | EKG ---
Test Date: 2021-02-12 Test Time: 15:54:29 [employer] Grade Teacher: INDIRA MEASUREMENT RESULTS: Intervals: Rate: 95 CO: 148 QRSD: 76 QT: 346 QTc: 434 Hope: P: 52 CO: 148 QRS: 68 T: 29 INTERPRETIVE STATEMENTS: Normal sinus rhythm Normal ECG Compared to ECG 04/27/2020 23:01:09 Left-axis deviation no longer present Electronically Signed On 02-12-21 16:22:36 CDT by Jatin Sandhu
[2021-02-12 16:44] LABS: Urine Blood Trace-intact (Negative); Urine Glucose Negative (Negative); Urine Protein Negative (Negative)
[2021-02-12 16:46] LABS: SARS-COV-2 RT PCR NEGATIVE (NEGATIVE)
--- NOTE | 2021-02-12 16:55 | RAD REPORT ---
EXAM DESCRIPTION: RAD - Chest Pa And Lat (2 Views) - 02/12/2021 4:26 pm CLINICAL HISTORY: CHEST PAIN COMPARISON: Single-view chest January 15 TECHNIQUE: Frontal and lateral views of the chest were obtained. FINDINGS: The lungs are clear. Heart size is normal and central vasculature is within normal limit s. No pleural effusion or pneumothorax seen. No acute bony finding noted. No aortic abnormality. IMPRESSION: No acute cardiopulmonary process. No significant change from comparison study.
[2021-02-12 17:43] LABS: Absolute Lymphocytes (CBC) 2.8 K/uL (0.7-4.9); Basophils % 0.8 % (0-1.3); Hematocrit 40.7 % (36.0-45.0); Lymphocytes % 37.6 % (15.3-44.8); MPV 7.5 fL (7.6-11.3); RBC Red Blood Cell Count 4.56 M/uL (3.86-4.86)
[2021-02-12] MEDS ORDERED: FENTANYL CITR 100 MCG/2 ML ONE (17:54)
[2021-02-12 18:02] LABS: BUN Blood Urea Nitrogen 13 mg/dL (7-18); Bicarbonate 25 mmol/L (21-32); Glucose Level 87 mg/dL (74-106); Potassium 3.8 mmol/L (3.5-5.1); Sodium Level 137 mmol/L (136-145); Troponin (Emerg Dept Use Only) < 0.02 ng/mL (0.0-0.045)
--- NOTE | 2021-02-12 18:27 | EDPHYS ---
Physician Documentation [facility] Name: Carla Duncan Age: 25 yrs Sex: Female : 1995 Arrival Date: 02/12/2021 Time: 13:38 Bed DX2 Private MD: ED Physician Hal Watters HPI: 02/13 00:19 This 25 yrs old Female presents to ER via Ambulatory with complaints of Chest kb Pain, Shortness Of Breath, Body Aches. 00:19 The patient presents with a history of heart racing. Context: The symptoms occur kb without known cause. Onset: The symptoms/episode began/occurred 4 day(s) ago. Duration: The patient or guardian reports multiple episodes, that are intermittent, with no pattern. Modifying factors: The symptoms are aggravated by nothing. The symptoms are alleviated by nothing. Associated signs and symptoms: Pertinent positives: bodyaches, fatigue, headache, back pain. Severity of symptoms: At their worst the symptoms were mild moderate in the emergency department the symptoms are unchanged. The patient has not experienced similar symptoms in the past. The patient has not recently seen a physician. Pt reports palpitations, back pain, headaches, fatigue and bodyaches for 4 days. Historical: - Allergies: 02/12 14:44 Toradol; ss 14:44 Tussionex Pennkinetic ER; ss - Home Meds: 14:44 Ambien Oral [Active]; Trazodone Oral [Active]; ss - PMHx: 14:44 Anxiety; Bipolar disorder; ss - PSHx: 14:44 section; ss - Immunization history:: Client reports having NOT received the Covid vaccine. - Social history:: Smoking status: Patient denies any tobacco usage or history of. ROS: 02/13 00:14 Respiratory: Negative for shortness of breath, cough, wheezing, and pleuritic chest kb pain. Constitutional: Positive for body aches, fatigue. Cardiovascular: Positive for palpitations. Back: Positive for pain at rest, pain with movement, of the left scapular area and right scapular area. Neuro: Positive for headache. All other systems are negative. Exam: 00:14 Constitutional: This is a well developed, well nourished patient who is awake, alert, kb and in no acute distress. Head/Face: Normocephalic, atraumatic. ENT: Moist Mucous membranes Cardiovascular: Regular rate and rhythm with a normal S1 and S2. No gallops, murmurs, or rubs. No pulse deficits. Respiratory: Respirations even and unlabored. No increased work of breathing, no retractions or nasal flaring. Abdomen/GI: Soft, non-tender. No distention Skin: Warm, dry with normal turgor. Normal color. MS/ Extremity: Pulses equal, no cyanosis. Neurovascular intact. Full, normal range of motion. Neuro: Awake and alert, GCS 15, oriented to person, place, time, and situation. Moves all extremities. Normal gait. Psych: Awake, alert, with orientation to person, place and time. Behavior, mood, and affect are within normal limits. Vital Signs: 02/12 14:42 BP 114 / 62; Pulse 104; Resp 16; Temp 98.1(TE); Pulse Ox 98% on R/A; Weight 93.44 kg; ss Height 5 ft. 0 in. (152.40 cm); Pain 10/10; 17:02 BP 113 / 67; Pulse 96; Resp 20; Pulse Ox 96% on R/A; Pain 10/10; kg 14:42 Body Mass Index 40.23 (93.44 kg, 152.40 cm) ss MDM: 16:03 Patient medically screened. kb 02/13 00:14 Data reviewed: vital signs, nurses notes. Data interpreted: Pulse oximetry: on room air kb is 96 %. Interpretation: normal. Counseling: I had a detailed discussion with the patient and/or guardian regarding: the historical points, exam findings, and any diagnostic results supporting the discharge/admit diagnosis, lab results, radiology results, the need for outpatient follow up, a family practitioner, to return to the emergency department if symptoms worsen or persist or if there are any questions or concerns that arise at home. 02/12 16:44 Order name: Urine Dipstick-Ancillary; Complete Time: 16:49 EDMS 02/12 16:47 Order name: COVID-19/FLU A+B; Complete Time: 16:49 EDMS 02/12 16:58 Order name: Urine --Ancillary (enter results) bd 02/12 17:07 Order name: CBC with Diff; Complete Time: 17:45 kb 02/12 15:48 Order name: Chest Pa And Lat (2 Views) XRAY; Complete Time: 16:58 ss 02/12 17:07 Order name: Basic Metabolic Panel; Complete Time: 18:23 kb 02/12 17:07 Order name: Troponin (emerg Dept Use Only); Complete Time: 18:23 kb 02/12 17:07 Order name: TSH; Complete Time: 18:23 kb 02/12 17:07 Order name: [place] Screen Profile; Complete Time: 18:45 kb 02/12 15:48 Order name: EKG; Complete Time: 15:49 ss 02/12 15:48 Order name: EKG - Nurse/Tech; Complete Time: 16:11 ss Administered Medications: 02/12 17:33 Drug: fentaNYL (PF) 25 mcg Route: IVP; Site: right antecubital; kg 18:48 Follow up: Response: No adverse reaction; Pain is unchanged, physician notified kg 18:33 CANCELLED (Physician Discretion): traMADol 50 mg PO once; RASS on ADMIN: Combtv4, Very kb Agttd3, Agttd2, Rstlss1, AlertClm0, Drwsy-1, Lt Sdtn-2, Mod Sdtn-3, Dp Sdtn-4, UnArsble-5 18:35 Drug: Ketorolac 30 mg Route: IVP; Site: right antecubital; kg 19:04 Follow up: Response: No adverse reaction kg 18:40 Drug: Benadryl (diphenhydrAMINE) 25 mg Route: PO; kg 19:04 Follow up: Response: No adverse reaction kg Disposition: 02/13 13:24 Co-signature as Attending Physician, Hal Watters MD I agree with the assessment and rn plan of care. Attestation: The patient's history, exam findings, diagnostics, and a summary of any interventions or procedures was reviewed in detail with Francie FERNANDO. Disposition Summary: 02/12/21 18:26 Discharge Ordered Location: Home kb Condition: Stable kb Diagnosis - Palpitations kb Followup: kb - With: Emergency Department - When: As needed - Reason: Worsening of condition Followup: kb - With: Private Physician - When: 2 - 3 days - Reason: Recheck today's complaints, Continuance of care, Re-evaluation by your physician Discharge Instructions: - Discharge Summary Sheet kb - Palpitations, Pblu-bt-Eehd kb Forms: - Medication Reconciliation Form kb - Thank You Letter kb - Antibiotic Education kb - Prescription Opioid Use kb Signatures: Dispatcher [employer] EDMS Francie Maynard, ACCOUNT MANAGER EDUCATION-C MERON-Hal Newell MD MD rn Smirch, Shelby RN RN ss Rosemary Carroll RN RN kg Corrections: (The following items were deleted from the chart) 02/12 15:57 14:58 Influenza Screen (A \T\ B)+BA.LAB.BRZ ordered. EDMS EDMS 15:57 14:58 CORONAVIRUS+MR.LAB.BRZ ordered. EDMS EDMS 18:33 18:29 traMADol 50 mg PO once; RASS on ADMIN: Combtv4, Very Agttd3, Agttd2, Rstlss1, kb AlertClm0, Drwsy-1, Lt Sdtn-2, Mod Sdtn-3, Dp Sdtn-4, UnArsble-5 ordered. kb
--- NOTE | 2021-02-12 18:27 | ER ---
Nurse's Notes [facility] Name: Carla Duncan Age: 25 yrs Sex: Female : 1995 Arrival Date: 02/12/2021 Time: 13:38 Bed DX2 Private MD: Diagnosis: Palpitations Presentation: 02/12 14:42 Chief complaint: Patient states: Migraines, back pain and fatigue that began 4 days ss ago. Coronavirus screen: Client denies travel out of the [place] in the last 14 days. Ebola Screen: Patient denies exposure to infectious person. Patient denies travel to an Ebola-affected area in the 21 days before illness onset. Initial Sepsis Screen: Does the patient meet any 2 criteria? No. Patient's initial sepsis screen is negative. Does the patient have a suspected source of infection? No. Patient's initial sepsis screen is negative. Risk Assessment: Do you want to hurt yourself or someone else? Patient reports no desire to harm self or others. Onset of symptoms was February 08, 2021. 14:42 Method Of Arrival: Ambulatory ss 14:42 Acuity: VENKATESH 4 ss Triage Assessment: 17:05 General: Appears in no apparent distress. Behavior is calm, cooperative, appropriate kg for age, quiet. Pain: Complains of pain in back, head. Historical: - Allergies: 14:44 Toradol; ss 14:44 Tussionex Pennkinetic ER; ss - Home Meds: 14:44 Ambien Oral [Active]; Trazodone Oral [Active]; ss - PMHx: 14:44 Anxiety; Bipolar disorder; ss - PSHx: 14:44 section; ss - Immunization history:: Client reports having NOT received the Covid vaccine. - Social history:: Smoking status: Patient denies any tobacco usage or history of. Screenin:03 Abuse screen: Denies threats or abuse. Denies injuries from another. Nutritional kg screening: No deficits noted. Tuberculosis screening: No symptoms or risk factors identified. Fall Risk None identified. Assessment: 17:04 General: Appears in no apparent distress. Pain: Complains of pain in thoracic area Pain kg radiates to Head Pain currently is 10 out of 10 on a pain scale. at worst was 10 out of 10 on a pain scale. level that patient reports is acceptable is 6 out of 10 on a pain scale. Pain began 2-3 days ago. Cardiovascular: No deficits noted. Vital Signs: 14:42 BP 114 / 62; Pulse 104; Resp 16; Temp 98.1(TE); Pulse Ox 98% on R/A; Weight 93.44 kg; ss Height 5 ft. 0 in. (152.40 cm); Pain 10/10; 17:02 BP 113 / 67; Pulse 96; Resp 20; Pulse Ox 96% on R/A; Pain 10/10; kg 14:42 Body Mass Index 40.23 (93.44 kg, 152.40 cm) ss ED Course: 13:38 Patient arrived in ED. ds1 14:44 Triage completed. ss 14:44 Arm band placed on right wrist. ss 15:12 Francie Maynard FNP-C is PHCP. kb 15:12 Hal Watters MD is Attending Physician. kb 16:25 Chest Pa And Lat (2 Views) XRAY In Process Unspecified. EDMS 17:02 Rosemary Carroll, RN is Primary Nurse. kg 17:03 Patient has correct armband on for positive identification. kg 17:03 No provider procedures requiring assistance completed. Patient maintains SpO2 kg saturation greater than 95% on room air. 17:15 Inserted saline lock: 20 gauge in right antecubital area, using aseptic technique. kg 19:00 IV discontinued, intact, bleeding controlled, No redness/swelling at site. Pressure kg dressing applied. Administered Medications: 17:33 Drug: fentaNYL (PF) 25 mcg Route: IVP; Site: right antecubital; kg 18:48 Follow up: Response: No adverse reaction; Pain is unchanged, physician notified kg 18:33 CANCELLED (Physician Discretion): traMADol 50 mg PO once; RASS on ADMIN: Combtv4, Very kb Agttd3, Agttd2, Rstlss1, AlertClm0, Drwsy-1, Lt Sdtn-2, Mod Sdtn-3, Dp Sdtn-4, UnArsble-5 18:35 Drug: Ketorolac 30 mg Route: IVP; Site: right antecubital; kg 19:04 Follow up: Response: No adverse reaction kg 18:40 Drug: Benadryl (diphenhydrAMINE) 25 mg Route: PO; kg 19:04 Follow up: Response: No adverse reaction kg Outcome: 18:26 Discharge ordered by . ariel 19:05 Discharged to home ambulatory. kg 19:05 Condition: good 19:05 Discharge instructions given to patient, Instructed on discharge instructions, follow up and referral plans. Demonstrated understanding of instructions, follow-up care. 19:05 Patient left the ED. kg Signatures: Dispatcher [employer] EDFrancie Edouard, MERON-C RUG DRYING MACHINE OPERATOR-Izzy Celaya ds1 Jenny Bautista RN RN Rosemary Carroll RN RN kg
[2021-02-12 19:12] VITALS: TEMP 98.1
[2021-02-12] MEDS ORDERED: KETOROLAC 30 MG/ML INJ ONE (19:13)
[2021-02-12 19:14] VITALS: BP 113/67; O2SAT 96
[2021-02-12] MEDS ORDERED: DIPHENHYDRAMINE 25 MG TAB/CAP ONE (19:20)
== END 2021-02-12 19:05 | disposition home or self-care (01) ==
LOC: ER 13:36
DX: R00.2 Palpitations (principal); R51.9 Headache, unspecified; Z20.822 Contact with and (suspected) exposure to COVID-19; F31.9 Bipolar disorder, unspecified; Z88.5 Allergy status to narcotic agent
CPT/HCPCS: 93005; 85025; 80048; 36415; 86308; 81025; 84443; 81003; 84484; 0240U; 71046; 96375; 96374; 99284; J3010

== ENCOUNTER 2021-02-16 00:37 | Emergency (ER) | payer OTHER ==
--- OUTSIDE RECORDS SUMMARY | 2021-02-16 00:39 | XMS REPORT | Continuity of Care Document ---
:1995 Author Organization [facility] t Address [address] [place] [address] Care Team Providers Name Role Phone Asked, Pcp Primary Care Physician Unavailable Gume CHANCE Attending Clinician Geovani Agarwal Attending Clinician Lluvia Rice Attending Clinician Ravi Cowart MD Attending Clinician Singer FERNÁNDEZ Attending Clinician Payers Payer Name Policy Type [...] [facility] [place] [facility] [place] [facility] [place] tram[place] 2017-06 [facility] [place] Tramadol Propensi Active Other (See headache Methodi ty to Comments) [address] st adverse 00:00: Hospita reaction 00 l s to drug Acetamin Propensi Active Shortness Of Methodi ophen-Co ty to Breath [address] deine adverse 00:00: Hospita reaction 00 l s to drug No Known DA Active [facility] Allergie 3-14 [facility] [place] Family History Family Member Diagnosis Comments Start Date Stop Date Source Natural mother Diabetes [facility] Natural mother Menstrual problems [facility] Social History Social Habit Start Date Stop Date Quantity Comments Source Tobacco use and 2019-06-21 2019-06-21 Never used [facility] exposure 00:00:00 00:00:00 Hospital Alcohol intake 2019-06-21 2019-06-21 Current drinker [facility] 00:00:00 00:00:00 of alcohol Hospital (finding) Alcohol Comment 2016-04-28 2016-04-28 social, weekly [facility] 00:00:00 00:00:00 Hospital Sex Assigned At [birth year] [facility] 00:00:00 00:00:00 Hospital Smoking Status Start Date Stop Date Source Never smoker [facility] Medications Ordered Filled Start Stop [...] mouth. Hospita 500-60-15 17 l mg tablet ibuprofen 2018-06 Yes 800mg Q6H Take 800 [...] Source Future Scheduled Test Hepatitis C screening [facility] (procedure) [code = 573476623] Future Scheduled Test Screening for [facility] malignant neoplasm of cervix (procedure) [code = 947207333] Future Scheduled Test INFLUENZA VACCINE [facility] [code = INFLUENZA VACCINE] Future Scheduled Test COVID-19 VACCINE (1) [facility] [code = COVID-19 VACCINE (1)] Future Scheduled Test Hepatitis C screening [facility] (procedure) [code = 636000958] Future Scheduled Test Screening for [facility] malignant neoplasm of cervix (procedure) [code = 996408433] Future Scheduled Test INFLUENZA VACCINE [facility] [code = INFLUENZA VACCINE] Future Scheduled Test COVID-19 VACCINE (1) [facility] [code = COVID-19 VACCINE (1)] Encounters Start End Encounter Admission Attending Care Care Encounter Source Date/Time Date/Time Type Type Clinicians Facility Department ID 2020-12-31 2020-12-31 Emergency [place], [facility] [id number] 02:02:00 03:26:00 Akiko Mejia [id number] [place] 4.2.7.2.686 [place] [id number] 2020-11-20 2020-11-20 Emergency [place], [facility] [id number] 11:47:00 15:01:00 Sammi Mejia 350.1.13.10 [place] 4.2.7.2.686 [place] [id number] 2020-09-26 2020-09-26 Emergency Tricia Simmons [facility] [id number] 18:51:00 22:39:00 Lluvia Mejia 350.1.13.10 [place] 4.2.7.2.686 [place] [id number] 2020-07-17 2020-07-17 Emergency Austin Cowart [facility] [id number] [id number] 05:53:00 08:59:00 Dani Kauffman 350.1.13.10 [place] 4.2.7.2.686 [place] [id number] Results Test Description Test Time Test Comments Results Result Comments Source CHLAMYDIA GC DNA BY PCR 2020-08-06 14:24:00 Test Item Value Reference Range Interpretation Comme nts C. TRACHOMATIS DNA BY PCR (test Negative Negative code = CHLAMTDNA) N. GONORRHOEAE DNA BY PCR (test Negative Negative Performed At: [facility] code = NGONORDNA) [id number] [address] [place], [place] [id number] Rodrigues MD Ph :[phone] - DUP AB/PEL/SC/[id number] 14:12:00 [facility] 1995 Sex: F Patient Name: FATMATA DEGROOT Unit No: [id number] EXAMS: CPT CODE: [id number] DUP AB/PEL/SC/LTD 87499 PELVIC ULTRASOUND, 08/01/2020: COMPARISON: CT pelvis dated [...] and signed by: Joe Agudelo MD CC: Witner Mccollum MD; Austin Barrera Technologist: Alexandra Elder RDMS Probe: Trnscrbd D/ (1412) t.SDR.AJ13 Orig Print D/T: S: 08/01/2020 (1415) [facility] NAME: FATMATA DEGROOT Radiology DepartmentPHYS: Winter Landaverde MD [address] : 1995 AGE: 24 SEX: F [place] [address] LOC: SaranSalimaERS PHONE #: [phone] EXAM DATE: 08/01/2020 STATUS: REG ER FAX #: [phone] RAD NO: Page 1 Signed Report Patient Name: FATMATA DEGROOT Unit No: [id number] EXAMS: CPT CODE: [id number] DUP AB/PEL/SC/LTD 28804 <Continued> [facility] NAME: PERLAFATMATA Radiology Department PHYS: Winter Landaverde MD [address] : 1995 AGE: 24 SEX: F [place] [address] LOC: F.ERS PHONE #: [phone] DATE: 08/01/2020 STATUS: BALTAZAR LOVE FAX #: [phone] RAD NO: Page 2 Signed Report- US TRANSVAGINAL W/[id number] 14:12:00[facility] : 1995 Sex: F Patient Name: FATMATA DEGROOT Unit No: [id number] EXAMS: CPT CODE: [id number] US TRANSVAGINAL W/PELVIS 79332 PELVIC ULTRASOUND, 08/01/2020: COMPARISON: CT pelvis dated [...] Austin Barrera Technologist: Alexandra Elder RDMS Probe: [id number] Trnscrbd D/ (1412) t.SDR.AJ13 Orig Print D/T: S: 08/01/2020 (1415) [facility] NAME: FATMATA DEGROOT Radiology DepartmentPHYS: ELLISSalimaWinter Ortiz MD [address] : 1995 AGE: 24 SEX: F [place] [address] LOC: F.ERS PHONE #: [phone] EXAM DATE: 08/01/2020 STATUS: REG ER FAX #: [phone] RAD NO: Page 1 Signed Report Patient Name: FATMATA DEGROOT Unit No: [id number] EXAMS: CPT CODE: [id number] US TRANSVAGINAL W/PELVIS 22374 <Continued> [facility] NAME: DEGROOTFATMATA PHILLIP Radiology Department PHYS: Jay Winter Wilkins MD [address] : 1995 AGE: 24 SEX: F [place] [address] LOC: F.ERS PHONE #: [phone] DATE: 08/01/2020 STATUS: REG ER FAX #: [phone] RAD NO: Page 2 Signed Report- US PELVIS [id number] 14:12:00[facility] : 1995 Sex: F Patient Name: FATMATA DEGROOT Unit No: [id number] EXAMS: CPT CODE: [id number] US PELVIS COMPLETE 33471 PELVIC ULTRASOUND, 08/01/2020: COMPARISON: CT pelvis dated [...] t.SDR.AJ13 Orig Print D/T: S: 08/01/2020 (1415) [facility] NAME: FATMATA DEGROOT Radiology DepartmentPHYS: Winter Wilkins MD [address] : 1995 AGE: 24 SEX: F [place] [address] LOC: SANDY PHONE #: [phone] EXAM DATE: 08/01/2020 STATUS: REG ER FAX #: [phone] RAD NO: Page 1 Signed Report Patient Name: FATMATA DEGROOT Unit No: [id number] EXAMS: CPT CODE: [id number] US PELVIS COMPLETE 88642 <Continued> [facility] NAME: FATMATA DEGROOT Radiology Department PHYS: ELLIS. Winter Wilkins MD [address] : 1995 AGE: 24 SEX: F [place] [address] LOC: SANDY PHONE #: [phone] DATE: 08/01/2020 STATUS: BALTAZAR LOVE FAX #: [phone] RAD NO: Page 2 Signed Report- CT ABD PELVIS W/O [id number] 10:58:00[facility] : 1995 Sex: F Patient Name: FATMATA DGEROOT Unit No: [id number] EXAMS: CPT CODE: [id number] CT ABD PELVIS W/O CONT 71603 CT ABDOMEN/CT STONE SURVEY WITHOUT CONTRAST, 08/01/2020 [...] mm right middle lobe pulmonary nodule. [facility] NAME: FATMATA DEGROOT Radiology Department PHYS: Winter Landaverde MD [address] : 1995 AGE: 24 SEX: F [place], [place] [address] LOC: ShaylaERS PHONE #: [phone] EXAM DATE: 08/01/2020 STATUS: REG ER FAX #:[phone] RAD NO: Page 1 Signed Report 1 Patient Name: FATMATA DEGROOT Unit No: [id number] EXAMS: CPT CODE: [id number] CT ABD PELVIS W/O CONT 77200 <Continued> CT PELVIS WITHOUT CONTRAST: No opaque [...] Joe Agudelo MD CC: Winter Mccollum MD; [facility] Technologist: Art Church, RT, CT CTDI: 13.28 DLP: 653.43 Trnscrbd D/ (1058) t.SDR.AJ13 [facility] NAME: FATMATA DEGROOT Radiology Department PHYS: Winter Landaverde MD [address] : 1995 AGE: 24 SEX: F [place], [place] [address] LOC: ShaylaERS PHONE #: [phone] EXAM DATE: 08/01/2020 STATUS: REG ER FAX #: [phone] RAD NO: Page 2 Signed Report 1 Patient Name: FATMATA DEGROOT Unit No: [id number] EXAMS: CPT CODE: [id number] CT ABD PELVIS W/O CONT 32194 <Continued> Orig Print D/T: S: 08/01/2020 (1101) [facility] NAME: FATMATA DEGROOT Radiology Department PHYS: Winter Landaverde MD [address] : 1995 AGE: 24 SEX: F [place], [place] [address] LOC: F.ERS PHONE #: [phone] EXAM DATE: 08/01/2020 STATUS: REG ER FAX #: [phone] RAD NO: Page 3 Signed Report 1UA RFLX MICR CULT IF [id number] 10:04:00 Test Item Value Reference Range Interpretation [...] culture: Suprapubic PainSpecimen Description: CLEAN CATCHUR HCG [id number] 10:04:00 Test Item Value Reference Range Interpretation [...] Description: CLEAN CATCHUA RFLX MICR CULT IF [id number] 10:03:00 Test Item Value Reference Range Interpretation [...] culture: Suprapubic PainSpecimen Description: CLEAN CATCHUR HCG [id number] 10:03:00 Test Item Value Reference Range Interpretation Comments UR HCG QUAL (test code = HCGQLU) Indication for culture: Suprapubic PainSpecimen Description: CLEAN CATCHCBC W/AUTO [id number] 07:27:00 Test Item Value Reference Range Interpretation [...] NORMAL code = PLTMR) AG HEPATITIS B [id number] 04:15:00 Test Item Value Reference Range Interpretation Comments AG HEPATITIS B SURFACE (test code NONREACTIVE NONREACTIVE = HBSAG) AB HEPATITIS C [id number] 04:15:00 Test Item Value Reference Range Interpretation Comments AB HEPATITIS C (test code = NONREACTIVE NONREACTIVE HCVAB) SIGNAL TO CUTOFF (test code = 0.13 <0.80 N CUTOFF) RUBELLA [id number] 04:15:00 Test Item Value Reference Range Interpretation Comments RUBELLA SCREEN 70.2 IUnit/ml Results >10. 0IUnits/ml (test code = are considered positive RUBSC) inaccordance wi th the CLSI guidelines and based on the [employer] S tandard for Anti-Rubell a serum as anindicator of immune status and a br eakpoint to detect mostseropositiv e persons. AB [id number] 04:15:00 Test Item Value Reference Range Interpretation Comments AB TREPONEMA (test code = TREPAB) NONREACTIVE NONREACTIVE AG HEPATITIS B [id number] 04:00:00 Test Item Value Reference Range Interpretation Comments AG HEPATITIS B SURFACE (test code NONREACTIVE NONREACTIVE = HBSAG) AB HEPATITIS C [id number] 04:00:00 Test Item Value Reference Range Interpretation Comments AB HEPATITIS C (test code = HCVAB) NONREACTIVE SIGNAL TO CUTOFF (test code = CUTOFF) <0.80 RUBELLA [id number] 04:00:00 Test Item Value Reference Range Interpretation Comments RUBELLA SCREEN 70.2 IUnit/ml Results >10. 0IUnits/ml (test code = are considered positive RUBSC) inaccordance wi th the CLSI guidelines and based on the O International S tandard for Anti-Rubell a serum as anindicator of immune status and a br eakpoint to detect mostseropositiv e persons. AB [id number] 04:00:00 Test Item Value Reference Range Interpretation Comments AB TREPONEMA (test code = TREPAB) NONREACTIVE NONREACTIVE CBC W/AUTO [id number] 00:36:00 Test Item Value Reference Range Interpretation [...]
[2021-02-16] MEDS ORDERED: NA CHLORIDE 0.9% 1,000 ML ONE (03:32)
[2021-02-16] MEDS ORDERED: DIPHENHYDRAMINE 50 MG/ML VIAL ONE (03:32)
[2021-02-16 03:47] LABS: Absolute Lymphocytes (CBC) 3.9 K/uL (0.7-4.9); Basophils % 0.4 % (0-1.3); Hematocrit 37.8 % (36.0-45.0); Lymphocytes % 50.4 % (15.3-44.8); MPV 7.4 fL (7.6-11.3); RBC Red Blood Cell Count 4.29 M/uL (3.86-4.86)
[2021-02-16 04:00] LABS: Urine Blood Trace-intact (Negative); Urine Glucose Negative (Negative); Urine Protein Negative (Negative)
[2021-02-16 04:08] LABS: Protime INR 1.01
[2021-02-16 04:41] LABS: Barbiturates NEGATIVE (NEGATIVE); Benzodiazepines NEGATIVE (NEGATIVE); Cocaine NEGATIVE (NEGATIVE); METHAMPHETAM NEGATIVE (NEGATIVE); Methadone NEGATIVE (NEGATIVE); Opiates NEGATIVE (NEGATIVE); Phencyclidine NEGATIVE (NEGATIVE); THC Cannibis NEGATIVE (NEGATIVE)
[2021-02-16 04:50] LABS: ALT/SGPT 21 U/L (12-78); AST/SGOT 5 U/L (15-37); Albumin 3.6 g/dL (3.4-5.0); Alkaline Phosphatase 52 U/L (45-117); BUN Blood Urea Nitrogen 17 mg/dL (7-18); Bicarbonate 24 mmol/L (21-32); Bilirubin Direct < 0.1 mg/dL (0-0.2); Bilirubin Total 0.2 mg/dL (0.2-1.0); Glucose Level 107 mg/dL (74-106); NT PRO-BNP 34 pg/mL (<125); Potassium 3.8 mmol/L (3.5-5.1); Protein, Total 6.9 g/dL (6.4-8.2); Sodium Level 140 mmol/L (136-145); Troponin (Emerg Dept Use Only) < 0.02 ng/mL (0.0-0.045)
--- NOTE | 2021-02-16 05:11 | ER ---
Nurse's Notes [facility] Name: Carla Duncan Age: 25 yrs Sex: Female : 1995 Arrival Date: 02/16/2021 Time: 00:37 Bed 11 Private MD: Diagnosis: Chest pain, unspecified Presentation: 02/16 01:05 Chief complaint: Patient states: chest pain for a week, also was here a few ago and had em tests done and everything was good, covid test neg. has not been able to follow up, denies N/V/D cough or fever. Coronavirus screen: Client denies travel out of the [place] in the last 14 days. Ebola Screen: Patient negative for fever greater than or equal to 101.5 degrees Fahrenheit, and additional compatible Ebola Virus Disease symptoms Patient denies exposure to infectious person. Patient denies travel to an Ebola-affected area in the 21 days before illness onset. No symptoms or risks identified at this time. Initial Sepsis Screen: Does the patient meet any 2 criteria? No. Patient's initial sepsis screen is negative. Does the patient have a suspected source of infection? No. Patient's initial sepsis screen is negative. Risk Assessment: Do you want to hurt yourself or someone else? Patient reports no desire to harm self or others. Onset of symptoms was February 16, 2021. 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 - Social history:: Smoking status: Patient denies any tobacco usage or history of. Screenin:05 Abuse screen: Denies threats or abuse. Nutritional screening: No deficits noted. em Tuberculosis screening: No symptoms or risk factors identified. Fall Risk None identified. Assessment: 01:05 General: Appears in no apparent distress. comfortable, Behavior is calm, cooperative, em appropriate for age, Denies fever. Pain: Complains of pain in anterior aspect of left upper chest Pain does not radiate. Pain began 2-3 days ago. Neuro: Level of Consciousness is awake, alert, obeys commands, Oriented to person, place, time, situation. Cardiovascular: Capillary refill < 3 seconds Patient's skin is warm and dry. Rhythm is sinus rhythm. Respiratory: Airway is patent Respiratory effort is even, unlabored, Respiratory pattern is regular, symmetrical. GI: Patient currently denies nausea, vomiting. Derm: Skin is intact, is healthy with good turgor, Skin is pink, warm \T\ dry. Musculoskeletal: Capillary refill < 3 seconds, Range of motion: intact in all extremities. 03:30 Reassessment: Patient appears in no apparent distress at this time. Patient and/or em family updated on plan of care and expected duration. Pain level reassessed. Patient is alert, oriented x 3, equal unlabored respirations, skin warm/dry/pink. 05:02 Reassessment: Patient appears in no apparent distress at this time. Patient and/or em family updated on plan of care and expected duration. Pain level reassessed. Patient is alert, oriented x 3, equal unlabored respirations, skin warm/dry/pink. Vital Signs: 01:05 BP 142 / 96; Pulse 54; Resp 16; Temp 98.3; Pulse Ox 99% on R/A; Weight 89.81 kg; Height em 5 ft. 0 in. (152.40 cm); Pain 10/10; 05:01 BP 121 / 83; Pulse 83; Resp 18; Pulse Ox 99% on R/A; em 01:05 Body Mass Index 38.67 (89.81 kg, 152.40 cm) em ED Course: 00:37 Patient arrived in ED. bp1 01:05 Patient has correct armband on for positive identification. em 01:08 Triage completed. em 01:08 Arm band placed on. em 02:43 Raimundo Pollack MD is Attending Physician. [facility] 02:44 Liang Nunez, RN is Primary Nurse. em 03:24 XRAY Chest (1 view) In Process Unspecified. EDMS 03:33 Initial lab(s) drawn, by me, sent to lab. Inserted saline lock: 22 gauge in right em antecubital area, using aseptic technique. Blood collected. Patient maintains SpO2 saturation greater than 95% on room air. 05:26 No provider procedures requiring assistance completed. IV discontinued, intact, em bleeding controlled, No redness/swelling at site. Pressure dressing applied. Administered Medications: 03:33 Drug: NS 0.9% 1000 ml Route: IV; Rate: 1000 ml; Site: right antecubital; em 05:02 Follow up: IV Status: Completed infusion; IV Intake: 1000ml em 03:33 Drug: Benadryl (diphenhydrAMINE) 50 mg Route: IVP; Site: right antecubital; em 05:02 Follow up: Response: No adverse reaction em Intake: 05:02 IV: 1000ml; Total: 1000ml. em Outcome: 05:10 Discharge ordered by . 7 05:26 Discharged to home ambulatory. em 05:26 Condition: stable 05:26 Discharge instructions given to patient, Instructed on discharge instructions, follow up and referral plans. Demonstrated understanding of instructions, follow-up care. 05:27 Patient left the ED. em Signatures: Dispatcher [employer] Liang Miller RN RN em Lisha Whittaker Maurice, MD MD 7 Corrections: (The following items were deleted from the chart) 03:34 02:00 Inserted saline lock: 20 gauge in left antecubital area, using aseptic technique. em Blood collected. em 03:34 02:00 Initial lab(s) drawn, by me, sent to lab. Urine collected: clean catch specimen, em clear, em
--- NOTE | 2021-02-16 05:11 | EDPHYS ---
Physician Documentation [facility] Name: Carla Duncan Age: 25 yrs Sex: Female : 1995 Arrival Date: 02/16/2021 Time: 00:37 Bed 11 Private MD: ED Physician Raimundo Pollack HPI: 02/16 03:07 This 25 yrs old Female presents to ER via Ambulatory with complaints of Chest mh7 Pain. 03:07 The patient or guardian reports chest pain that is located primarily in the anterior mh7 chest wall, left. 03:07 The pain does not radiate. Associated signs and symptoms: Pertinent negatives: mh7 abdominal pain, cough, diaphoresis, dizziness, headache, lower extremity pain, lower extremity swelling, lightheadedness, nausea, near syncope, palpitations, recent travel, shortness of breath, syncope, vomiting. The chest pain is described as sharp. Duration: The patient or guardian reports multiple episodes, that are intermittent, that wax and wane, with no pattern. Modifying factors: The symptoms are alleviated by nothing. the symptoms are aggravated by nothing. Severity of pain: At its worst the pain was moderate 3 day(s) ago, in the emergency department the pain is unchanged. The patient has been recently seen at the [facility] Emergency Department, this week. 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 - Social history:: Smoking status: Patient denies any tobacco usage or history of. ROS: 03:07 Constitutional: Negative for fever, chills, and weight loss, Eyes: Negative for injury, mh7 pain, redness, and discharge, ENT: Negative for injury, pain, and discharge, Neck: Negative for injury, pain, and swelling, Respiratory: Negative for shortness of breath, cough, wheezing, and pleuritic chest pain, Abdomen/GI: Negative for abdominal pain, nausea, vomiting, diarrhea, and constipation, Back: Negative for injury and pain, : Negative for injury, bleeding, discharge, and swelling, MS/Extremity: Negative for injury and deformity, Skin: Negative for injury, rash, and discoloration, Neuro: Negative for headache, weakness, numbness, tingling, and seizure, Psych: Negative for depression, anxiety, suicide ideation, homicidal ideation, and hallucinations, Allergy/Immunology: Negative for hives, rash, and allergies, Endocrine: Negative for neck swelling, polydipsia, polyuria, polyphagia, and marked weight changes, Hematologic/Lymphatic: Negative for swollen nodes, abnormal bleeding, and unusual bruising. Exam: 03:07 Constitutional: This is a well developed, well nourished patient who is awake, alert, mh7 and in no acute distress. Head/Face: Normocephalic, atraumatic. Eyes: Pupils equal round and reactive to light, extra-ocular motions intact. Lids and lashes normal. Conjunctiva and sclera are non-icteric and not injected. Cornea within normal limits. Periorbital areas with no swelling, redness, or edema. Neck: Trachea midline, no thyromegaly or masses palpated, and no cervical lymphadenopathy. Supple, full range of motion without nuchal rigidity, or vertebral point tenderness. No Meningismus. 03:07 Respiratory: Lungs have equal breath sounds bilaterally, clear to auscultation and percussion. No rales, rhonchi or wheezes noted. No increased work of breathing, no retractions or nasal flaring. Abdomen/GI: Soft, non-tender, with normal bowel sounds. No distension or tympany. No guarding or rebound. No evidence of tenderness throughout. Back: No spinal tenderness. No costovertebral tenderness. Full range of motion. Skin: Warm, dry with normal turgor. Normal color with no rashes, no lesions, and no evidence of cellulitis. MS/ Extremity: Pulses equal, no cyanosis. Neurovascular intact. Full, normal range of motion. Neuro: Awake and alert, GCS 15, oriented to person, place, time, and situation. Cranial nerves II-XII grossly intact. Motor strength 5/5 in all extremities. Sensory grossly intact. Cerebellar exam normal. Normal gait. Psych: Awake, alert, with orientation to person, place and time. Behavior, mood, and affect are within normal limits. 03:07 Chest/axilla: Inspection: normal, Palpation: tenderness, that is moderate, of the anterior aspect of left upper chest, that partially reproduces the patient's complaints, Axilla: are normal, Lymph nodes: lymphadenopathy is not appreciated. 03:07 Cardiovascular: Rate: bradycardic, Rhythm: regular, Pulses: no pulse deficits are appreciated, Heart sounds: normal, normal S1and S2, Edema: is not appreciated, JVD: is not appreciated. Vital Signs: 01:05 BP 142 / 96; Pulse 54; Resp 16; Temp 98.3; Pulse Ox 99% on R/A; Weight 89.81 kg; Height em 5 ft. 0 in. (152.40 cm); Pain 10/10; 05:01 BP 121 / 83; Pulse 83; Resp 18; Pulse Ox 99% on R/A; em 01:05 Body Mass Index 38.67 (89.81 kg, 152.40 cm) em MDM: 05:08 Differential diagnosis: acute myocardial infarction, acute pericarditis, anxiety, mh7 coronary artery disease chest wall pain, congestive heart failure costochondritis, myocarditis, pericarditis, pleurisy, pneumonia, pulmonary embolus. HEART Score: History: Slightly Suspicious (0), ECG: Normal (0), Age: < or = 45 years (0), Risk Factors: No Risk Factors Known (0), Troponin: < or = 1 x Normal Limit (0), Total Score = 0. Data reviewed: vital signs, nurses notes, lab test result(s), cardiac enzymes, CBC, electrolytes, urinalysis, EKG, radiologic studies, plain films. Data interpreted: Pulse oximetry: on room air is 99 %. Interpretation: normal. Counseling: I had a detailed discussion with the patient and/or guardian regarding: the historical points, exam findings, and any diagnostic results supporting the discharge/admit diagnosis, lab results, radiology results, the need for outpatient follow up, to return to the emergency department if symptoms worsen or persist or if there are any questions or concerns that arise at home. Response to treatment: the patient's symptoms have resolved after treatment, the patient's blood pressure is in an acceptable range, mental status has returned to baseline, the patient no longer shows bradycardia, the patient is not short of breath, the patient is not tachycardic, the patient's pain is gone, the patient's temperature has normalized, the patient is now symptom free, patient is well hydrated. 05:10 Patient medically screened. [facility] 02/16 03:07 Order name: Basic Metabolic Panel; Complete Time: 04:55 7 02/16 03:07 Order name: CBC with Diff; Complete Time: 04:55 7 02/16 03:07 Order name: LFT's; Complete Time: 04:55 7 02/16 03:07 Order name: Magnesium; Complete Time: 04:55 7 02/16 03:07 Order name: NT PRO-BNP; Complete Time: 04:55 7 02/16 03:07 Order name: PT-INR; Complete Time: 04:55 7 02/16 03:07 Order name: Troponin (emerg Dept Use Only); Complete Time: 04:55 7 02/16 03:07 Order name: XRAY Chest (1 view) [facility] 02/16 03:07 Order name: UDS; Complete Time: 04:55 7 02/16 03:07 Order name: D-Dimer; Complete Time: 04:55 [facility] 02/16 04:00 Order name: Urine Dipstick-Ancillary; Complete Time: 04:55 EDMS 02/16 04:03 Order name: Urine --Ancillary (enter results) 02/16 03:07 Order name: EKG; Complete Time: 03:08 7 02/16 03:07 Order name: Cardiac monitoring; Complete Time: 03:32 7 02/16 03:07 Order name: EKG - Nurse/Tech; Complete Time: 03:32 7 02/16 03:07 Order name: IV Saline Lock; Complete Time: 03:32 7 02/16 03:07 Order name: Labs collected and sent; Complete Time: 03:32 7 02/16 03:07 Order name: O2 Per Protocol; Complete Time: 03:32 7 02/16 03:07 Order name: O2 Sat Monitoring; Complete Time: 03:32 7 02/16 03:07 Order name: Urine Dipstick-Ancillary (obtain specimen); Complete Time: 05:02 7 02/16 03:07 Order name: Urine Test (obtain specimen); Complete Time: 05:02 mh7 Administered Medications: 03:33 Drug: NS 0.9% 1000 ml Route: IV; Rate: 1000 ml; Site: right antecubital; em 05:02 Follow up: IV Status: Completed infusion; IV Intake: 1000ml em 03:33 Drug: Benadryl (diphenhydrAMINE) 50 mg Route: IVP; Site: right antecubital; em 05:02 Follow up: Response: No adverse reaction em Disposition Summary: 02/16/21 05:10 Discharge Ordered Location: Home [facility] Problem: an ongoing problem [facility] Symptoms: have improved [facility] Condition: Stable [facility] Diagnosis - Chest pain, unspecified [facility] Followup: [facility] - With: Private Physician - When: 1 - 2 days - Reason: Worsening of condition, Recheck today's complaints, Continuance of care, Re-evaluation by your physician Discharge Instructions: - Discharge Summary Sheet [facility] - Chest Wall Pain, [id number] [facility] - Nonspecific Chest Pain, Adult, [id number] [facility] Forms: - Medication Reconciliation Form [facility] - Thank You Letter [facility] - Antibiotic Education [facility] - Prescription Opioid Use [facility] Signatures: Dispatcher [employer] Liang Miller, Raimundo Stevens RN, MD MD [facility]
[2021-02-16 05:38] VITALS: TEMP 98.3; O2SAT 99
[2021-02-16 05:39] VITALS: BP 121/83
--- NOTE | 2021-02-16 07:45 | RAD REPORT ---
EXAM DESCRIPTION: RAD - Chest Single View - 02/16/2021 3:24 am CLINICAL HISTORY: CHEST PAIN COMPARISON: February 12 TECHNIQUE: AP portable chest image was obtained 02/16/2021 3:24 am . FINDINGS: Lungs are clear. Heart size is upper normal, accentuated by portable technique. No vascula r engorgement or other findings for pulmonary edema or volume overload. No measurable pleural effusio n and no pneumothorax. No acute bony abnormality seen. No acute aortic findings suspected. IMPRESSION: No acute cardiopulmonary process. No significant change from comparison study.
--- NOTE | 2021-02-16 10:40 | EKG ---
Test Date: 2021-02-16 Test Time: 03:16:59 Wax Pourer: SHELBI MEASUREMENT RESULTS: Intervals: Rate: 92 WY: 150 QRSD: 72 QT: 368 QTc: 455 [place]: P: 59 WY: 150 QRS: 62 T: 38 INTERPRETIVE STATEMENTS: Normal sinus rhythm Cannot rule out Anterior infarct, age undetermined Abnormal ECG Compared to ECG 02/12/2021 15:54:29 Myocardial infarct finding now present Electronically Signed On 02-16-21 10:39:41 CDT by Jatin Sandhu
== END 2021-02-16 05:27 | disposition home or self-care (01) ==
LOC: ER 00:37
DX: R07.9 Chest pain, unspecified (principal); Z88.5 Allergy status to narcotic agent; Z88.8 Allergy status to other drugs, medicaments and biological substances
CPT/HCPCS: 96361; 93005; 85025; 80048; 36415; 83735; 81025; 85610; 85379; 80076; 81003; 84484; 83880; 80307; 71045; 96374; 99285; J1200; J7030

== ENCOUNTER 2021-05-23 22:04 | Emergency (ER) | payer OTHER ==
--- OUTSIDE RECORDS SUMMARY | 2021-05-23 22:09 | XMS REPORT | Continuity of Care Document ---
:1995 Author Organization [facility] t Address [address] [place]man[place]. [address] [place] [id number] Care Team Providers Name Role Phone Asked, Pcp Primary Care Physician Unavailable Gume CHANCE Attending Clinician Chap[place] BUCHANAN S Attending Clinician Lluvia Rice Attending Clinician Geovani RIVERA Attending Clinician Unavailable Supa AREVALO, E Attending Clinician Singer FERNÁNDEZ Attending Clinician Geovani Barrera Admitting Clinician Unavailable Payers Payer Name Policy Type Policy Number Effective Date Expiration Date S ource HIM AMBETTER FROM [id number] 2020 [facility] 00:00:00 [employer] [place] [id number] 2019 00:00:00 Advance Directives Directive Decision Effective Termination Comments Source Date Date Healthcare Agents on N/A Univ ersity FileNameRelationshipHealthcare of [place] Agent Medical RelationshipCommunicationChTrinity Health TrevinioMotherHealth Care [phone] (Mobile)Pancho Williamswander Velascognificant OtherFirst Alternate Health Care [phone] (Mobile) @[email or web address] Photo [email or web address] Problems Condition Condition Condition Status Onset Resolution Last Treating Co mments Source Name Details Category Date Date Treatment Clinician Date Obesity Obesity Disease Active Univers (BMI (BMI 1-16 ity of 30-39.9) 30-39.9) 00:00: [place] 00 [facility] Urinary Urinary Disease Active Univers tract tract 5-29 [place] of [place] without 00 Medical hematuria, hematuria, Br anch site site unspecifie unspecifie d d Supervisio Supervisio Disease Active U nivers n of other n of other 5-23 it y of high risk high risk 00:[place] , , [place] Me dical antepartum antepartum Br anch Previous Previous Disease Active Unive rs 5-23 ity of delivery, delivery, [place] antepartum antepartum 00 Me dical Branch Desires Desires Disease Active Univers 5-23 ity of (vaginal (vaginal 00:00: [place] 00 Medical after after Branch ) ) trial trial Obesity in Obesity in Disease Active U nivers 5-23 ity of 00:00: [place] 00 [facility] Family Family Disease Active Univers history of history of 8-26 it y of spina spina 00:00: [place] bifida bifida 00 [facility] No known No known Disease Metho di active active st problems problems Hospit a l Allergies, Adverse Reactions, Alerts Allergy Allergy Status Severity Reaction(s) Onset Inactive Treating Comm ents Source Name Type Date Date Clinician Ketorola Propensi Active Other - See Has bad Univers c ty to comments 12-31 anxiety, ity of adverse 00:00: but can [place] reaction 00 take with Medic al s Benadryl Branch KETOROLA DRUG Active Other-Cmnt Univ ers C INGREDI 12-31 ity of 00:00: [place] 00 Medical Branch butorpha DA Active MO [facility] nol 2-04 [facility] 00:[facility]: [facility] [place] butorpha DA Active MO tachycardic [facility] nol 2-04 Woman[facility] 00:00: [facility] 00 l of [place] BUTORPHA DRUG Active Palpitations Un carolann NOL INGREDI 1-20 ity of TARTRATE 00:00: [place] 00 Medical Branch Butorpha Propensi Active Palpitations Univers nol ty to 1-20 ity of Tartrate adverse 00:00: [place] reaction 00 Medical s Branch Butorpha Propensi Active Palpitations 2018-06 Methodi nol ty to 08-22 st Tartrate adverse 00:00: Hospita reaction 00 l s to drug morphine DA Active U 2018- [facility] 1-19 Woman's 00:00: [facility]ospita 00 l of [place] codeine DA Active CT 2018-0 [facility] 1-19 Woman[facility] 00:00: [facility]ita 00 l of [place] morphine DA Active U SWELLING 2018-0 [facility] 1-19 Woman's 00:00: [facility]ospita 00 l of [place] codeine DA Active CT nausea, 2018- [facility] headache 1-19 Woman's 00:00: Hospita 00 l of [place] tramadol DA Active CT 2017- [facility] 2-31 Woman's 00:00: [facility]ospita 00 l of [place] tramadol DA Active CT CHEST PAIN 2017- [facility] 2-31 Woman's 00:00: Hospita 00 l of [place] ACETAMIN DRUG Active High SOB Univers OPHEN-CO 9-14 ity of DEINE 00:00: [place] 00 Medical Branch Acetamin Propensi Active Shortness of Univers ophen-Co ty to Breath 9-14 ity of deine adverse 00:00: [place] reaction 00 Medical s Branch Tramadol Propensi Active Other (See headache Methodi ty to Comments) 14 st adverse 00:00: Hospita reaction 00 l s to drug Acetamin Propensi Active Shortness Of Methodi ophen-Co ty to Breath 9-14 st deine adverse 00:00: Hospita reaction 00 l s to drug TRAMADOL DRUG Active Anaphylaxis Uni vers INGREDI - ity of 00:00: [place] 00 Medical Branch TUSSIN DRUG Active Rash Univers DM COUGH 11-01 ity of MEDICINE 00:00: [place] 00 Medical Branch Tussin Propensi Active Rash Univers Dm Cough ty to 11-01 ity of Medicine adverse 00:00: [place] reaction 00 Medical s Branch No Known DA Active U [facility] Allergie 3-14 Woman's s 00:00: Hospita 00 l of [place] Family History Family Member Diagnosis Comments Start Date Stop Date Source Natural mother Diabetes [facility] Natural mother Menstrual problems [facility] Social History Social Habit Start Date Stop Date Quantity Comments Source Exposure to Not sure [facility]-CoV-2 [facility] (event) [place] Tobacco use and 2020-12-31 2020-12-31 Never used Universit y of exposure 00:00:00 00:00:00 [facility] Alcohol intake 2020-12-31 2020-12-31 Current [facility] 00:00:00 00:00:00 non-drinker of [facility] alcohol [place] (finding) Alcohol Comment 2016-04-28 2016-04-28 social, weekly Metho [facility] 00:00:00 00:00:00 Sex [birth year] At [birth year] Universit y of 00:00:00 00:00:00 [facility] Smoking Status Start Date Stop Date Source Never smoker [facility] Medications Ordered Filled Start Stop Current Ordering Indication Dosage Frequency Signature Comments Components Source Medication Medication Date Date Medication? Clinician (SIG) Name Name ondansetron 2020- No 4mg 4 mg, Univ ers (ZOFRAN-ODT 12-31 Oral, ity of ) 09:15: 08:20 ONCE, 1 [place] disintegrat 00 :00 dose, Tue Med ical ing tablet 12/31/20 at Bran ch 4 mg 0415, Routine diphenhydrA 2020- No 25mg 25 mg, Uni vers MINE 12-31 Oral, ity of (BENADRYL) 09:15: 08:20 ONCE, 1 [place] as tablet 25 00 :00 dose, e Medic al mg 12/31/20 at Branch 0415, RODRICK ibuprofen 2020- No 800mg 800 mg, Uni vers (IBU) 12-31 07- Oral, ity of tablet 800 08:00: 07:17 ONCE, 1 [place] as mg 00 :00 dose, Tue Medical 12/31/20 at Branch 0300, RODRICK methocarbam 2020- No 1000mg 1,000 mg, Univers oL 12-31- Oral, ONCE ity of (ROBAXIN) 08:00: 07:17 NOW, 1 [place] tablet 00 :00 dose, [facility] Medical 1,000 mg 12/31/20 at Branch 0300, RODRICK ibuprofen Yes [id number] 800mg Take 1 U nivers 800 mg 12-31 tablet by ity of tablet 00:00: mouth [place] 00 every 8 Medical (eight) Branch hours as needed for Pain (scale 4-6). cyclobenzap Yes [id number] 10mg Take 1 Univers rine 10 mg 12-31 tablet by ity of tablet 00:00: mouth 3 [place] 00 (three) Medical times Branch daily as needed for Muscle Spasms. methocarbam Yes 500mg 500 mg, Un carolann oL 11-20 Oral, QID, ity of (ROBAXIN) 21:00: [place] tablet 500 00 on Wed Medical mg 11/20/20 at Branch 1600, Until Discontinu ed, Routine NaCl 0.9% No 1000mL at 999 Uni vers (NS) bolus 11-20 05-27 mL/hr, ity of infusion 20:30: 08:29 1,000 mL, Ryan as 1,000 mL 00 :00 IV Medical Infusion, [place] ONCE, 1 dose, [facility] 11/20/20 at 1530, STAT metoclopram No 10mg 10 mg, Uni vers dio HCl 11-20- Slow IV ity of (REGLAN) 20:15: 19:18 Push, [place] injection 00 :00 ONCE, 1 Medical 10 mg dose, [facility] 11/20/20 at 1515, RODRICK ketorolac 2020- No 30mg 30 mg, Unive rs (TORADOL) 11-20 Slow IV ity of injection 20:15: 19:18 Push, [place] 30 mg 00 :00 ONCE, 1 Medical dose, Wed Branch 11/20/20 at 1515, [facility]RICK
[facility] Rest[facility] : JOHN RIVERA diphenhydrA 2020- No 25mg 25 mg, Uni vers MINE 11-20 Slow IV ity of (BENADRYL) 20:15: 20:15 Push, [place] injection 00 :00 ONCE, 1 Medical 25 mg dose, Wed Branch 11/20/20 at 1515, STAT butalbital- Yes 1{tbl} 1 tablet, Univers acetaminoph 11-20 Oral, ity of en-caff 18:12: Q4HPRN, [place] (ESGIC) 27 Starting Medical 50-325-40 Wed Branch mg tablet 1 11/20/20 at tablet 1312, Until Discontinu ed, Routine, zofran ketorolac 2020-0 Yes [id number] 10mg Take 1 Un carolann 10 mg 5-26 tablet by ity of tablet 00:00: mouth [place] 00 every 6 Medical (six) Branch hours as needed for Pain (scale 4-6). cyclobenzap 2020-0 Yes [id number] 10mg Take 1 Univers rine 10 mg 5-26 tablet by ity of tablet 00:00: mouth 3 [place] 00 (three) Medical times Branch daily. ketorolac 2020-0 Yes [id number] 10mg Take 1 Un carolann 10 mg 5-26 tablet by ity of tablet 00:00: mouth [place] 00 every 6 Medical (six) Branch hours as needed for Pain (scale 4-6). cyclobenzap 2020-0 Yes [id number] 10mg Take 1 Univers rine 10 mg 5-26 tablet by ity of tablet 00:00: mouth 3 [place] 00 (three) Medical times Branch daily. ketorolac 0 2020- No 30mg 30 mg, Unive rs (TORADOL) 09-27 04- Intramuscu ity of injection 03:45: 02:57 lar, ONCE, [place] 30 mg 00 :00 1 dose, Medical Elicia 4/1/21 Branch at 2245, RODRICK
Fa [facility] member approving Restricted medication : Tricia HERBERT diphenhydrA 2020- No 25mg 25 mg, Uni vers MINE 09-27 Intramuscu ity of (BENADRYL) 03:45: 02:58 lar, ONCE, [place] injection 00 :00 1 dose, Medical 25 mg Elicia 09/26/20 Branch at 2245, STAT proMETHazin 2020- No 25mg 25 mg, Uni vers e 09-27 Intramuscu ity of (PHENERGAN) 03:45: 02:58 lar, ONCE, [place] injection 00 :00 1 dose, Medical 25 mg Elicia 09/26/20 Branch at 2245, RODRICK ondansetron Yes [id number] 4mg Take 1 Univers (ZOFRAN 4-01 tablet by ity of ODT) 4 mg 00:00: mouth [place] disintegrat 00 every 8 Medic al ing tablet (eight) Branch hours as needed for Nausea and Vomiting (N/V). ondansetron Yes [id number] 4mg Take 1 Univers (ZOFRAN 4-01 tablet by ity of ODT) 4 mg 00:00: mouth [place] disintegrat 00 every 8 Medic al ing tablet (eight) Branch hours as needed for Nausea and Vomiting (N/V). ondansetron Yes [id number] 4mg Take 1 Univers (ZOFRAN 4-01 tablet by ity of ODT) 4 mg 00:00: mouth [place] disintegrat 00 every 8 Medic al ing tablet (eight) Branch hours as needed for Nausea and Vomiting (N/V). proMETHazin 0 Yes [id number] 25mg Take 1 Univers e 25 mg 2-09 tablet by ity of tablet 00:00: mouth [place] 00 every 6 Medical (six) Branch hours as needed for Nausea and Vomiting (N/V). proMETHazin 2020-0 Yes [id number] 25mg Take 1 Univers e 25 mg 2-09 tablet by ity of tablet 00:00: mouth [place] 00 every 6 Medical (six) Branch hours as needed for Nausea and Vomiting (N/V). proMETHazin 2020-0 Yes [id number] 25mg Take 1 Univers e 25 mg 2-09 tablet by ity of tablet 00:00: mouth [place] 00 every 6 Medical (six) Branch hours as needed for Nausea and Vomiting (N/V). ketorolac No 15mg 15 mg, Unive rs (TORADOL) 07-1720 Slow IV ity of injection 13:30: 12:29 Push, [place] 15 mg 00 :00 ONCE, 1 Medical dose, Wed Branch 07/17/20 at 0730, RODRICK
Fa culty member approving Restricted medication : AUSTIN COWART E NaCl 0.9% 2020- No 1000mL at 999 Uni vers (NS) IV 07-17 mL/hr, ity of infusion 13:30: 14:58 Intravenou [place] 1,000 mL 00 :00 s, ONCE, 1 Medic al dose, Wed Branch 07/17/20 at 0730, RODRICK metoclopram No 10mg 10 mg, Uni vers dio HCl 07-17 Slow IV ity of (REGLAN) 13:30: 12:29 Push, [place] injection 00 :00 ONCE, 1 Medical 10 mg dose, Wed Branch 07/17/20 at 0730, RODRICK ibuprofen 2018-06 Yes 800mg Q6H Take 800 Met hodi (ADVIL) 200 2-[address] MG tablet 23:05: mouth Hospita 17 every 6 l (six) hours as needed for mild pain. acetaminoph 2018-06 Yes 2{tbl} Take 2 Me thodi en-caff-pyr 2-[address] ilamine 23:05: mouth. Hospita 500-60-15 17 l mg tablet Yes 1{packe Take 1 Univ ers vit 5-29 t} Packet by ity of 33-iron-fol 00:00: mouth [place] ic-dha 00 daily. Medical (SELECT-OB Branch + DHA) 29 mg iron-1 mg -250 mg combo pack Yes 1{packe Take 1 Univ ers vit 5-29 t} Packet by ity of 33-iron-fol 00:00: mouth [place] ic-dha 00 daily. Medical (SELECT-OB Branch + DHA) 29 mg iron-1 mg -250 mg combo pack Yes 1{packe Take 1 Univ ers vit 5-29 t} Packet by ity of 33-iron-fol 00:00: mouth [place] ic-dha 00 daily. Medical (SELECT-OB Branch + DHA) 29 mg iron-1 mg -250 mg combo pack 2018-0 Yes 1{packe Take 1 Univ ers vit 5-29 t} Packet by ity of 33-iron-fol 00:00: mouth [place] ic-dha 00 daily. Medical (SELECT-OB Branch + DHA) 29 mg iron-1 mg -250 mg combo pack Immunizations Ordered Filled Immunization Date Status Comments Sour e Immunization Name Name Td 2011-06-28 Completed University 00:00:00 [facility] Td 2011-06-28 Completed University 00:00:00 [facility] Td 2011-06-28 Completed University 00:00:00 [facility] 2011-06-28 Completed [facility] 00:00:00 [facility] Vital Signs Vital Name Observation Time Observation Value Comments Source Systolic blood 2020-12-31 06:49:00 125 mm[Hg] Univer sity [facility] Diastolic blood 2020-12-31 06:49:00 93 mm[Hg] Unive rsity [facility] Heart rate 2020-12-31 06:49:00 104 /min [facility] Body temperature 2020-12-31 06:49:00 36.83 [place] [facility] Respiratory rate 2020-12-31 06:49:00 15 /min [facility] Body height 2020-12-31 06:49:00 152.4 cm [facility] Body weight 2020-12-31 06:49:00 92.5 kg [facility] BMI 2020-12-31 06:49:00 39.83 kg/m2 [facility] Oxygen saturation in 2020-12-31 06:49:00 99 /min [facility] Arterial blood by [facility] Pulse oximetry Branch Systolic blood 2020-12-31 06:49:00 125 mm[Hg] Univer sity of [facility] Diastolic blood 2020-12-31 06:49:00 93 mm[Hg] Unive rsity of [facility] Heart rate 2020-12-31 06:49:00 104 /min Universi ty [facility] [place] [facility] Body temperature 2020-12-31 06:49:00 36.83 [place] Univ ersity [facility] [place] [facility] Respiratory rate 2020-12-31 06:49:00 15 /min Univ [facility]ity [facility] [place] [facility] Body height 2020-12-31 06:49:00 152.4 cm [facility]i ty [facility] [place] [facility] Body weight 2020-12-31 06:49:00 92.5 kg [facility]i ty [facility] [place] [facility] BMI 2020-12-31 06:49:00 39.83 kg/m2 [facility]i ty [facility] [place] [facility] Oxygen saturation in 2020-12-31 06:49:00 99 /min University of Arterial blood by [facility] Pulse oximetry Branch Systolic blood 2020-11-20 19:58:00 146 mm[Hg] Univer sity of [facility] [place] [facility] Diastolic blood 2020-11-20 19:58:00 95 mm[Hg] Unive rsity of [facility] [place] [facility] Heart rate 2020-11-20 19:58:00 98 /min [facility]i ty [facility] [place] [facility] Body temperature 2020-11-20 19:58:00 37.17 [place] Univ ersity [facility] [place] [facility] Respiratory rate 2020-11-20 19:58:00 17 /min Univ ersity [facility] [place] [facility] Oxygen saturation in 2020-11-20 19:58:00 100 /min University of Arterial blood by [facility] Pulse oximetry Branch Body weight 2020-11-20 16:43:00 92.534 kg [facility]i ty [facility] [place] [facility] BMI 2020-11-20 16:43:00 39.84 kg/m2 [facility] [place] [facility] Systolic blood 2020-11-20 19:58:00 146 mm[Hg] Univer sity of [facility] [place] [facility] Diastolic blood 2020-11-20 19:58:00 95 mm[Hg] Unive rsity of [facility] [place] [facility] Heart rate 2020-11-20 19:58:00 98 /min [facility]i ty [facility] [place] [facility] Body temperature 2020-11-20 19:58:00 37.17 [place] Univ ersity [facility] [place] [facility] Respiratory rate 2020-11-20 19:58:00 17 /min Univ ersity [facility] [place] [facility] Oxygen saturation in 2020-11-20 19:58:00 100 /min University of Arterial blood by [facility] Pulse oximetry Branch Body weight 2020-11-20 16:43:00 92.534 kg [facility]i ty [facility] [place] [facility] BMI 2020-11-20 16:43:00 39.84 kg/m2 [facility] [place] [facility] Body height 2020-09-26 23:49:00 152.4 cm [facility] [place] [facility] Body weight 2020-09-26 23:49:00 90.719 kg [facility]i ty [facility] [place] [facility] BMI 2020-09-26 23:49:00 39.06 kg/m2 [facility] [place] [facility] Systolic blood 2020-09-26 23:45:00 103 mm[Hg] Univer sity of [facility] [place] [facility] Diastolic blood 2020-09-26 23:45:00 62 mm[Hg] Unive rsity of [facility] [place] [facility] [place] Heart rate 2020-09-26 23:45:00 107 /min Universi ty of [place] [facility] [place] Body temperature 2020-09-26 23:45:00 36.61 [place] Univ ersity [facility] [place] [facility] Respiratory rate 2020-09-26 23:45:00 18 /min Univ ersity [facility] [place] [facility] Oxygen saturation in 2020-09-26 23:45:00 97 /min University of Arterial blood by [facility] Pulse oximetry Branch Body height 2020-09-26 23:49:00 152.4 cm [facility]i ty [facility] [place] [facility] Body weight 2020-09-26 23:49:00 90.719 kg [facility]i ty [facility] [place] [facility] BMI 2020-09-26 23:49:00 39.06 kg/m2 [facility] [place] [facility] Systolic blood 2020-09-26 23:45:00 103 mm[Hg] Univer sity of [facility] [place] [facility] Diastolic blood 2020-09-26 23:45:00 62 mm[Hg] Unive rsity of [facility] [place] [facility] Heart rate 2020-09-26 23:45:00 107 /min [facility]i ty [facility] [place] [facility] Body temperature 2020-09-26 23:45:00 36.61 [place] Univ ersity [facility] [place] [facility] Respiratory rate 2020-09-26 23:45:00 18 /min Univ ersity [facility] [place] [facility] Oxygen saturation in 2020-09-26 23:45:00 97 /min University of Arterial blood by [facility] Pulse oximetry Branch Systolic blood 2020-07-17 14:00:00 112 mm[Hg] Univer sity of [facility] [place] [facility] Diastolic blood 2020-07-17 14:00:00 65 mm[Hg] Unive rsity of [facility] [place] [facility] Heart rate 2020-07-17 14:00:00 86 /min Universi ty [facility] [place] [facility] Respiratory rate 2020-07-17 14:00:00 20 /min Univ ersity [facility] [place] [facility] Oxygen saturation in 2020-07-17 14:00:00 100 /min University of Arterial blood by [facility] Pulse oximetry Branch Body temperature 2020-07-17 11:50:00 37.22 [place] [facility] [place] [facility] ersity of [place] [facility] Body weight 2020-07-17 11:50:00 86.183 kg Universi ty [facility] [place] [facility] BMI 2020-07-17 11:50:00 37.11 kg/m2 [facility] [place] [facility] Systolic blood 2020-07-17 14:00:00 112 mm[Hg] Univer sity of [facility] [place] [facility] Diastolic blood 2020-07-17 14:00:00 65 mm[Hg] Unive rsity of [facility] [place] [facility] Heart rate 2020-07-17 14:00:00 86 /min [facility]i ty [facility] [place] [facility] Respiratory rate 2020-07-17 14:00:00 20 /min Univ ersity [facility] [place] [facility] Oxygen saturation in 2020-07-17 14:00:00 100 /min University of Arterial blood by [facility] Pulse oximetry Branch Body temperature 2020-07-17 11:50:00 37.22 [place] [facility] [place] [facility] ersity of [place] [facility] Body weight 2020-07-17 11:50:00 86.183 kg [facility]i ty [facility] [place] [facility] BMI 2020-07-17 11:50:00 37.11 kg/m2 [facility] [place] [facility] Procedures Procedure Date / Time Performed Performing Clinician Sour e RAPID STREP SCREEN FOR 2020-12-31 07:13:00 Akiko Dunaway [facility] Medical Branch NOTICE OF PRIVACY 2020-12-31 06:34:54 Doctor Unassigned, No [facility] [place] [facility] [place] [facility] Name Medical Branch CONSENT/REFUSAL FOR 2020-12-31 06:34:35 Doctor Unassigned, No Un [facility] [place] DIAGNOSIS AND Name Medical Branch TREATMENT CT HEAD WO CONTRAST 2020-11-20 18:18:22 John Rivera [facility] POCT TEST 2020-11-20 17:50:00 John Rivera [facility] BASIC METABOLIC PANEL 2020-11-20 17:24:00 John Rivera [facility] (NA, K, CL, CO2, Medical Branch GLUCOSE, BUN, CREATININE, CA) CBC WITH DIFF 2020-11-20 17:24:00 John Rivera [facility] CONSENT/REFUSAL FOR 2020-11-20 16:36:59 Doctor Unassigned, No Un iversity [facility] DIAGNOSIS AND Name [facility] TREATMENT POCT TEST 2020-09-27 02:56:00 Tricia Herbert [facility] ASSIGNMENT OF BENEFITS 2020-09-27 01:35:31 Doctor Unassigned, No [facility] CONSENT/REFUSAL FOR 2020-09-26 23:26:24 Doctor Unassigned, No [facility] [place] DIAGNOSIS AND Name [facility] TREATMENT URINALYSIS 2020-07-17 14:08:00 Austin Cowart [facility] POCT TEST 2020-07-17 14:08:00 Austin Cowart [facility] CBC WITH DIFF 2020-07-17 12:25:00 Austin Cowart [facility] NOTICE OF PRIVACY 2020-07-17 11:48:39 Doctor Unassigned, No Univ [facility] [place] [facility] PRACTICES [facility] Medical [place] CONSENT/REFUSAL FOR 2020-07-17 11:44:41 Doctor Unassigned, No [facility] [place] DIAGNOSIS AND Name [facility] TREATMENT Plan of Care Planned Activity Planned Date Details Comments Source Future Scheduled Test Hepatitis C screening [facility] (procedure) [code = 256305307] Future Scheduled Test Screening for [facility] malignant neoplasm of cervix (procedure) [code = 413493966] Future Scheduled Test INFLUENZA VACCINE [facility] [code = INFLUENZA VACCINE] Future Scheduled Test COVID-19 VACCINE (1) [facility] [code = COVID-19 VACCINE (1)] Encounters Start End Encounter Admission Attending Care Care Encounter Source Date/Time Date/Time Type Type Clinicians Facility Department ID 2021-04-28 Emergency [facility] [id number] Univers 06:08:31 ity of [facility] 2021-04-27 Emergency [facility] [id number] Univers 21:27:31 ity [facility] 2021-04-27 Emergency [facility] [id number] Univers 10:13:04 ity of [facility] 2021-04-26 Emergency [facility] [id number] Univers [facility]01 [facility] [id number] [facility] 09:14:00 [id number] [facility] 2020-12-31 2020-12-31 [facility] [id number] 02:02:00 03:26:00 Akiko Mejia [id number] [place] [id number] [place] [address] [phone] [facility] 2020-12-31 2020-12-31 Emergency [facility] [id number] Univers 02:02:00 03:26:00 Akiko [place] [id number] i ty of [place] [id number] [facility] [phone] [address] 2020-11-20 2020-11-20 [facility] [id number] 11:47:00 15:01:00 John [place] [id number] [place] [id number] [place] [id number] [facility] 2020-11-20 2020-11-20 Emergency [place], [facility] [id number] Univers 11:47:00 15:01:00 John S [place] [id number] i ty of [place] [id number] [facility] [phone] [address] 2020-09-26 2020-09-26 Emergency Tricia Herbert [facility] [id number] [facility] 18:51:00 22:39:00 Lluvia Mejia [id number] i ty [facility] [id number] [facility] [id number] [address] 2020-09-26 2020-09-26 Emergency Tricia Herbert [facility] [id number] 18:51:00 22:39:00 Lluvia Mejia [id number] [place] [id number] [place] [id number] 2020-08-06 2020-08-06 Emergency Kami RIVERA, [facility] ERT [id number] Univers 10:13:00 12:49:00 [facility] 2020-07-17 2020-07-17 Emergency Supa [place] Ravi [facility] [id number] [facility] 05:53:00 08:59:00 Dani Kauffman 350.1.13.10 ity [facility] 4.2.7.2.686 [facility] [phone] [address] 2020-07-17 2020-07-17 Emergency Austin Cowart Ravi [facility] 1.2.840 .114 [id number] 05:53:00 08:59:00 Kauffman, Dani Mejia 350.1.13.10 [place] [address].2.7.[address] [place] [address] [phone] Results Test Description Test Time Test Comments Results Result Comments Source RAPID STREP SCREEN FOR GROUP A 2020-12-31 07:59:00 Test Item Value Reference Range Interpretation Comme nts Streptococcus pyogenes (group A) antigen (test code = 41050- 2) Negative Negative Lab Interpretation (test code = 76386-8) Normal [facility] [id number] 18:21:18No acute findings. HISTORY:Head trauma, mod-severe hit left head, near syncope, persistentsevere headache and dizziness TECHNIQUE: Noncontrast head CT was performed. COMPARISON:None FINDINGS: The ventricles and sulci are appropriate for patient's age. There is no midline shift. The basal cisterns are preserved. No largevascular territory infarction, intracranial hemorrhage or mass effect isseen. The extracranial tissues demonstrate no acute findings. [facility], Radiant Results Inft User - 11/20/2020 1:22 PM CDT HISTORY:Head trauma, mod-severe hit left head, near syncope, persistentsevere headache and dizziness TECHNIQUE: Noncontrast head CT was performed.COMPARISON:NoneFINDINGS:The ventricles and sulci are appropriate for patient's age.There is no midline shift. The basal cisterns are preserved. No largevascular territory infarction, intracranial hemorrhage or mass effect isseen.The extracranial tissues demonstrate no acute findings.IMPRESSIONNo acute findings.[facility] METABOLIC PANEL (NA, K, CL, CO2, GLUCOSE, BUN, CREATININE, CA)2020-11-20 18:00:40 Test Item Value Reference Range Interpretation Comments NA (test code = 137 mmol/L 135-145 2034250308) K (test code = 4.2 mmol/L 3.5-5.0 8714527503) CL (test code = 104 mmol/L 98-108 7030474093) CO2 TOTAL (test code = 22 mmol/L 23-31 L 0681055619) AGAP (test code = 2-16 3135308692) BUN (test code = 10 mg/dL 7-23 3011419672) GLUCOSE (test code = 150 mg/dL 70-110 H 4443129604) CREATININE (test code = 0.59 mg/dL 0.50-1.04 5432379934) CALCIUM (test code = 9.5 mg/dL 8.6-10.6 8780316729) eGFR (test code = mL/min/1.73m2 9962109375) TOBI (test code = TOBI) Association of Glomerular Filtration Rate (GFR) and Staging of Kidney Disease* + --+ --+ ------+| GFR (mL/min/1.73 m2) ?| With Kidney Damage ?| ?Without Kidney Damage+ --------+ --------+ +| ?>90 ?| ?Stage one ?| ? Normal ?+ ---+ ---+ -------+| ?60-89 ?| ?Stage two ?| ? Decreased GFR ? + --+ --+ ------+| ?30-59 ?| ?Stage three ?| ? Stage three ? + --+ --+ ------+| ?15-29 ?| ?Stage four ? | ? Stage four ?+ ---+ ---+ -------+| ?<15 (or dialysis) ? ?| ?Stage five ? | ? Stage five ?+ ---+ ---+ -------+ *Each stage assumes the associated GFR level has been in effect for at least three months. ?Stages 1 to 5, with or without kidney disease, indicate chronic kidney disease. Notes: Determination of stages one and two (with eGFR >59mL/min/1.73 m2) requires estimation of kidney damage for at least three months as defined by structural or functional abnormalities of the kidney, manifested by either:Pathological abnormalities or Markers of kidney damage (including abnormalities in the composition of the blood or urine or abnormalities in imaging tests). Lab Interpretation Abnormal (test code = 94562-4) [facility] [id number] 17:50:00 Test Item Value Reference Range Interpretation Comments POCT PREG (test code = 1605) negative On board controls acceptable with present C Line (test code = 3574) POCT PREG LOT # (test code = 3575) [id number] POCT PREG TEST DATE (test 05/27/2022 code = 3576) Lab Interpretation (test code = Normal 84707-2) [facility] WITH [id number] 17:32:17 Test Item Value Reference Range Interpretation Comments WBC (test code = See_Comment [Automated 9548-2) message] The sy stem which generated this result transmitted reference range : 4.30 - 11.10 10*3/?L. The reference range was not used to interpret this result as normal/abnormal . RBC (test code = See_Comment [Automated 444-) message] The sy stem which generated this result transmitted reference range : 3.93 - 5.25 10*6/?L. The reference range was not used to interpret this result as normal/abnormal . HGB (test code = 14.0 g/dL 11.6-15.0 718-7) HCT (test code = 41.6 % 35.7-45.2 4544-3) MCV (test code = 86.1 fL 80.6-95.5 787-2) MCH (test code = 29.0 pg 25.9-32.8 785-6) MCHC (test code = 33.7 g/dL 31.6-35.1 786-4) RDW-SD (test code = 40.4 fL 39.0-49.9 64190-7) RDW-CV (test code = 13.0 % 12.0-15.5 788-0) PLT (test code = See_Comment H [Automated 777-3) message] The sy stem which generated this result transmitted reference range : 166 - 358 10*3/ ?L. The reference r shira was not used to interpret this result as normal/abnormal . MPV (test code = 9.5 fL 9.5-12.9 17900-2) NRBC/100 WBC (test See_Comment [Automat ed code = 6907070288) message] The system which generated this result transmitted reference range : 0.0 - 10.0 /100 WBCs. The refer ence range was not u sed to interpret th is result as normal/abnormal . NRBC x10^3 (test code <0.01 See_Comment [Auto mated = 8164492093) message] The s ystem which generated this result transmitted reference range : 10*3/?L. The reference range was not used to interpret this result as normal/abnormal . GRAN MAT (NEUT) % 83.0 % (test code = 770-8) IMM GRAN % (test code 0.70 % = 5268519450) LYMPH % (test code = 12.5 % 736-9) MONO % (test code = 3.7 % 5905-5) EOS % (test code = 0.0 % 713-8) BASO % (test code = 0.1 % 706-2) GRAN MAT x10^3(ANC) 8.41 10*3/uL 1.88-7.09 H (test code = 6663460215) IMM GRAN x10^3 (test 0.07 10*3/uL 0.00-0.06 H code = 1081720658) LYMPH x10^3 (test code 1.26 10*3/uL 1.32-3.29 L = 731-0) MONO x10^3 (test code 0.37 10*3/uL 0.33-0.92 = 742-7) EOS x10^3 (test code = <0.03 0.03-0.39 L 711-2) BASO x10^3 (test code <0.03 0.01-0.07 = 704-7) Lab Interpretation Abnormal (test code = 57475-1) [facility] [id number] 02:56:00 Test Item Value Reference Range Interpretation Comments POCT PREG (test code = 1605) negative On board controls acceptable with present C Line (test code = 3574) POCT PREG LOT # (test code = 3575) [id number] POCT PREG TEST DATE (test 02/25/2022 code = 3576) Lab Interpretation (test code = Normal 35263-4) [facility] DNA BY [id number] 14:24:00 Test Item Value Reference Range Interpretation Comments C. TRACHOMATIS DNA BY Negative Negative PCR (test code = CHLAMTDNA) N. GONORRHOEAE DNA BY Negative Negative Perfor med At: ST PCR (test code = [facility] NGONORDNA) [id number] [facility] Geovani Hall [place] [id number] Rodrigues MD Ph:[phone] - DUP AB/PEL/SC/[id number] 14:12:00 [facility] : 1995 Sex: F Patient Name: FATMATA DEGROOT Unit No: [id number] EXAMS: CPT CODE: [id number] DUP AB/PEL/SC/LTD 68235 PELVIC ULTRASOUND, 08/01/2020: COMPARISON: CT pelvis dated [...] Orig Print D/T: S: 08/01/2020 (1415) [facility] NAME: DEGROOT,FATMATA Radiology DepartmentPHYS: Winter Landaverde MD [address] : 1995 AGE: 24 SEX: F [place] [address] LOC: F.ERS PHONE #: [phone] EXAM DATE: 08/01/2020 STATUS: REG ER FAX #: [phone] RAD NO: Page 1 Signed Report Patient Name: FATMATA DEGROOT Unit No: [id number] EXAMS: CPT CODE: [id number] DUP AB/PEL/SC/LTD 10699 <Continued> [facility] NAME: DEGROOT,FATMATA Radiology Department PHYS: Winter Landaverde MD [address] : 1995 AGE: 24 SEX: F [place] [address] LOC: SANDY PHONE #: [phone] DATE: 08/01/2020 STATUS: BALTAZAR LOVE FAX #: [phone] RAD NO: Page 2 Signed Report- US TRANSVAGINAL W/[id number] 14:12:00[facility] : 1995 Sex: F Patient Name: FATMATA DEGROOT Unit No: [id number] EXAMS: CPT CODE: [id number] US TRANSVAGINAL W/PELVIS 28987 PELVIC ULTRASOUND, 08/01/2020: COMPARISON: CT pelvis dated [...] Austin Barrera Technologist: Alexandra Elder RDMS Probe: [id number] Trnscrbd D/ (1412) [email or web address].[email or web address] Orig Print D/T: S: 08/01/2020 (1415) [facility] NAME: FATMATA DEGROOT Radiology DepartmentPHYS: ELLISSalimaWinter Ortiz MD [address] : 1995 AGE: 24 SEX: F [place] [address] LOC: Saran.ERS PHONE #: [phone] EXAM DATE: 08/01/2020 STATUS: REG ER FAX #: [phone] RAD NO: Page 1 Signed Report Patient Name: FATMATA DEGROOT Unit No: [id number] EXAMS: CPT CODE: [id number] US TRANSVAGINAL W/PELVIS 52937 <Continued> [facility] NAME: DEGROOT,FATMATA Radiology Department PHYS: Jay Winter Wilkins MD [address] : 1995 AGE: 24 SEX: F [place], [place] [address] LOC: F.ERS PHONE #: [phone] DATE: 08/01/2020 STATUS: REG ER FAX #: [phone] RAD NO: Page 2 Signed Report- US PELVIS [id number] 14:12:00[facility] : 1995 Sex: F Patient Name: FATMATA DEGROOT Unit No: [id number] EXAMS: CPT CODE: [id number] US PELVIS COMPLETE 76762 PELVIC ULTRASOUND, 08/01/2020: COMPARISON: CT pelvis dated [...] Orig Print D/T: S: 08/01/2020 (1415) [facility] NAME: FATMATA DEGROOT Radiology DepartmentPHYS: Winter Landaverde MD [address] : 1995 AGE: 24 SEX: F [place], [place] [address] LOC: ShaylaERS PHONE #: [phone] EXAM DATE: 08/01/2020 STATUS: REG ER FAX #: [phone] RAD NO: Page 1 Signed Report Patient Name: FATMATA DEGROOT Unit No: [id number] EXAMS: CPT CODE: [id number] US PELVIS COMPLETE 70692 <Continued> [facility] NAME: FATMATA DEGROOT Radiology Department PHYS: Winter Landaverde MD [address] : 1995 AGE: 24 SEX: F [place], [place] [address] LOC: SANDY PHONE #: [phone] DATE: 08/01/2020 STATUS: BALTAZAR LOVE FAX #: [phone] RAD NO: Page 2 Signed Report- CT ABD PELVIS W/O [id number] 10:58:00[facility] : 1995 Sex: F Patient Name: FATMATA DEGROOT Unit No: [id number] EXAMS: CPT CODE: [id number] CT ABD PELVIS W/O CONT 00185 CT ABDOMEN/CT STONE SURVEY WITHOUT CONTRAST, 08/01/2020 [...] mm right middle lobe pulmonary nodule. [facility] NAME: FATMATA DEGROOT Radiology Department PHYS: Winter Landaverde MD [address] : 1995 AGE: 24 SEX: F [place] [address] LOC: Saran.ERS PHONE #: [phone] EXAM DATE: 08/01/2020 STATUS: REG ER FAX #:[phone] RAD NO: Page 1 Signed Report 1 Patient Name: FATMATA DEGROOT Unit No: [id number] EXAMS: CPT CODE: [id number] CT ABD PELVIS W/O CONT 11151 <Continued> CT PELVIS WITHOUT CONTRAST: No opaque [...] Joe Agudelo MD CC: Winter Mccollum MD; [facility] Technologist: Art Church, RT, CT CTDI: 13.28 DLP: 653.43 Trnscrbd D/ (1058) t.SDR.AJ13 [facility] NAME: DEGROOTFATMATA Radiology Department PHYS: Winter Landaverde MD [address] : 1995 AGE: 24 SEX: F [place], [place] [address] LOC: Saran.ERS PHONE #: [phone] EXAM DATE: 08/01/2020 STATUS: REG ER FAX #: [phone] RAD NO: Page 2 Signed Report 1 Patient Name: FATMATA DEGROOT Unit No: [id number] EXAMS: CPT CODE: [id number] CT ABD PELVIS W/O CONT 01878 <Continued> Orig Print D/T: S: 08/01/2020 (1101) [facility] NAME: FATMATA DEGROOT Radiology Department PHYS: Winter Landaverde MD [address] : 1995 AGE: 24 SEX: F [place], [place] [address] LOC: SANDY PHONE #: [phone] EXAM DATE: 08/01/2020 STATUS: REG ER FAX #: [phone] RAD NO: Page 3 Signed Report 1UA RFLX MICR CULT IF [id number] 10:04:00 Test Item Value Reference Range Interpretation [...] culture: Suprapubic PainSpecimen Description: CLEAN CATCHUR HCG [id number] 10:04:00 Test Item Value Reference Range Interpretation [...] Description: CLEAN CATCHUA RFLX MICR CULT IF [id number] 10:03:00 Test Item Value Reference Range Interpretation [...] culture: Suprapubic PainSpecimen Description: CLEAN CATCHUR HCG [id number] 10:03:00 Test Item Value Reference Range Interpretation Comments UR HCG QUAL (test code = HCGQLU) Indication for culture: Suprapubic PainSpecimen Description: CLEAN CATCH [id number] 14:39:00 Test Item Value Reference Range Interpretation Comments APPEARANCE (test code = Hazy Clear A 4830949837) COLOR (test code = Yellow Yellow 0323107308) PH (test code = 4.8-8.0 9528902910) SP GRAVITY (test code = 1.003-1.030 5273651397) GLU U QUAL (test code = Normal Normal 4600543110) BLOOD (test code = Negative Negative INTERFERE NCE FROM 7379605930) ASCORBIC ACID M AY CAUSE FALSE NEG ATIVE RESULT KETONES (test code = Negative Negative 6012896661) PROTEIN (test code = Negative Negative 2887-8) UROBILIN (test code = Normal Normal 5284298045) BILIRUBIN (test code = Negative Negative 0065196457) NITRITE (test code = Negative Negative 6357088537) LEUK SILVINO (test code = Negative Negative 0387743180) RBC/HPF (test code = See_Comment [Autom ated message] 2729907503) The system [employer] generated this result transmitted ref erence range: 0 - 3 HP F. The reference range was not used to int erpret this result as normal/abnormal . WBC/HPF (test code = <1 See_Comment [Autom ated message] 6102097843) The system [employer] generated this result transmitted ref erence range: 0 - 5 HP F. The reference range was not used to int erpret this result as normal/abnormal . BACTERIA (test code = Few Negative A 0174896728) MUCOUS (test code = Slight Negative LPF A 6891577425) SQ EPITH (test code = HPF 0263284940) Lab Interpretation (test Abnormal code = 22584-9) [facility] [id number] 14:08:00 Test Item Value Reference Range Interpretation Comments POCT PREG (test code = 1605) negative On board controls acceptable with present C Line (test code = 3574) POCT PREG LOT # (test code = 3575) [id number] POCT PREG TEST DATE (test 2022-02-25 code = 3576) Lab Interpretation (test code = Normal 50098-4) [facility] WITH [id number] 12:41:00 Test Item Value Reference Range Interpretation Comments WBC (test code = See_Comment [Automated 1890-2) message] The sy stem which generated this result transmitted reference range : 4.30 - 11.10 10*3/?L. The reference range was not used to interpret this result as normal/abnormal . RBC (test code = See_Comment [Automated 789-8) message] The sy stem which generated this result transmitted reference range : 3.93 - 5.25 10*6/?L. The reference range was not used to interpret this result as normal/abnormal . HGB (test code = 13.4 g/dL 11.6-15 718-7) HCT (test code = 39.9 % 35.7-45.2 4544-3) MCV (test code = 86.9 fL 80.6-95.5 787-2) MCH (test code = 29.2 pg 25.9-32.8 785-6) MCHC (test code = 33.6 g/dL 31.6-35.1 786-4) RDW-SD (test code = 40.8 fL 39-49.9 97573-0) RDW-CV (test code = 13.0 % 12-15.5 788-0) PLT (test code = See_Comment H [Automated 777-3) message] The sy stem which generated this result transmitted reference range : 166 - 358 10*3/ ?L. The reference r shira was not used to interpret this result as normal/abnormal . MPV (test code = 9.5 fL 9.5-12.9 69784-6) NRBC/100 WBC (test See_Comment [Automat ed code = 3523144168) message] The system which generated this result transmitted reference range : 0.0 - 10.0 /100 WBCs. The refer ence range was not u sed to interpret th is result as normal/abnormal . NRBC x10^3 (test code <0.01 See_Comment [Auto mated = 6803489207) message] The s ystem which generated this result transmitted reference range : 10*3/?L. The reference range was not used to interpret this result as normal/abnormal . GRAN MAT (NEUT) % 49.7 % (test code = 770-8) IMM GRAN % (test code 0.40 % = 4352908339) LYMPH % (test code = 37.6 % 736-9) MONO % (test code = 6.3 % 5905-5) EOS % (test code = 5.4 % 713-8) BASO % (test code = 0.6 % 706-2) GRAN MAT x10^3(ANC) 4.65 10*3/uL 1.88-7.09 (test code = 2010078877) IMM GRAN x10^3 (test 0.04 10*3/uL 0-0.06 code = 0317401444) LYMPH x10^3 (test code 3.52 10*3/uL 1.32-3.29 H = 731-0) MONO x10^3 (test code 0.59 10*3/uL 0.33-0.92 = 742-7) EOS x10^3 (test code = 0.51 10*3/uL 0.03-0.39 H 711-2) BASO x10^3 (test code 0.06 10*3/uL 0.01-0.07 = 704-7) Lab Interpretation Abnormal (test code = 31241-2) [facility] W/AUTO [id number] 07:27:00 Test Item Value Reference Range Interpretation [...] NORMAL code = PLTMR) AG HEPATITIS B [id number] 04:15:00 Test Item Value Reference Range Interpretation Comments AG HEPATITIS B SURFACE (test code NONREACTIVE NONREACTIVE = HBSAG) AB HEPATITIS C [id number] 04:15:00 Test Item Value Reference Range Interpretation Comments AB HEPATITIS C (test code = NONREACTIVE NONREACTIVE HCVAB) SIGNAL TO CUTOFF (test code = 0.13 <0.80 N CUTOFF) RUBELLA [id number] 04:15:00 Test Item Value Reference Range Interpretation Comments RUBELLA SCREEN 70.2 IUnit/ml Results >10. 0IUnits/ml (test code = are considered positive RUBSC) inaccordance wi th the CLSI guidelines and based on the WH [employer] S tandard for Anti-Rubell a serum as anindicator of immune status and a br eakpoint to detect mostseropositiv e persons. AB [id number] 04:15:00 Test Item Value Reference Range Interpretation Comments AB TREPONEMA (test code = TREPAB) NONREACTIVE NONREACTIVE AG HEPATITIS B [id number] 04:00:00 Test Item Value Reference Range Interpretation Comments AG HEPATITIS B SURFACE (test code NONREACTIVE NONREACTIVE = HBSAG) AB HEPATITIS C [id number] 04:00:00 Test Item Value Reference Range Interpretation Comments AB HEPATITIS C (test code = HCVAB) NONREACTIVE SIGNAL TO CUTOFF (test code = CUTOFF) <0.80 RUBELLA [id number] 04:00:00 Test Item Value Reference Range Interpretation Comments RUBELLA SCREEN 70.2 IUnit/ml Results >10. 0IUnits/ml (test code = are considered positive RUBSC) inaccordance wi th the CLSI guidelines and based on the O International S tandard for Anti-Rubell a serum as anindicator of immune status and a br eakpoint to detect mostseropositiv e persons. AB [id number] 04:00:00 Test Item Value Reference Range Interpretation Comments AB TREPONEMA (test code = TREPAB) NONREACTIVE NONREACTIVE CBC W/AUTO [id number] 00:36:00 Test Item Value Reference Range Interpretation [...] MORPHOLOGY REQUIRED (test NORMAL NORMAL code = PLTMR)"
--- NOTE | 2021-05-23 23:33 | EDPHYS ---
Physician Documentation [facility] Name: Carla Duncan Age: 25 yrs Sex: Female : 1995 Arrival Date: 05/23/2021 Time: 22:10 Bed 18 Private MD: ED Physician Raimundo Pollack HPI: 05/23 23:07 This 25 yrs old Female presents to ER via Ambulatory with complaints of Heart kb Problem, Muscle Spasms. 23:08 The patient presents with a history of heart racing. Context: The symptoms occur at kb rest. Onset: The symptoms/episode began/occurred just prior to arrival. Duration: The patient or guardian reports a single episode. Modifying factors: The symptoms are aggravated by nothing. The symptoms are alleviated by nothing. Associated signs and symptoms: Pertinent positives: anxiety, Pertinent negatives: chest pain, cough, fever, lightheadedness, nausea, SOB, syncope, near-syncope, unusual stressors, vertigo, vomiting. Severity of symptoms: At their worst the symptoms were mild moderate in the emergency department the symptoms are unchanged. The patient has not experienced similar symptoms in the past. The patient has not recently seen a physician. Pt reports her dr increased her night medications (buspirone and trazadone) dosages because she hasn't been sleeping. Uyen was her first night to take the increased doses, along with her normal ambien, and she started feeling muscle spasms, palpitations, and "figety like I took an upper instead of a downer." States she googled it and found out that those medications weren't supposed to be taken together so she got worried about that as well. . JACQUARD CARD LACER: 22:51 Living 1 mr2 Historical: - Allergies: 22:51 Toradol; mr2 22:51 Tussionex Pennkinetic ER; mr2 22:51 Codeine; mr2 22:51 Tramadol HCl; mr2 - Home Meds: 22:51 Ambien Oral [Active]; Trazodone Oral [Active]; mr2 - PMHx: 22:51 Anxiety; Bipolar disorder; mr2 - PSHx: 22:51 section; mr2 - Immunization history:: Adult Immunizations up to date. - Social history:: Smoking status: Patient denies any tobacco usage or history of. ROS: 23:05 Constitutional: Negative for fever, chills, and weight loss. kb 23:05 Cardiovascular: Positive for palpitations, Negative for chest pain, edema, orthopnea, paroxysmal nocturnal dyspnea. 23:05 Psych: Positive for anxiety. 23:05 All other systems are negative. Exam: 23:05 Constitutional: This is a well developed, well nourished patient who is awake, alert, kb and in no acute distress. Head/Face: Normocephalic, atraumatic. ENT: Moist Mucous membranes Cardiovascular: Regular rate and rhythm with a normal S1 and S2. No gallops, murmurs, or rubs. No pulse deficits. Respiratory: Respirations even and unlabored. No increased work of breathing, no retractions or nasal flaring. Abdomen/GI: Soft, non-tender. No distention Skin: Warm, dry with normal turgor. Normal color. MS/ Extremity: Pulses equal, no cyanosis. Neurovascular intact. Full, normal range of motion. Neuro: Awake and alert, GCS 15, oriented to person, place, time, and situation. Moves all extremities. Normal gait. Psych: Awake, alert, with orientation to person, place and time. Behavior, mood, and affect are within normal limits. 23:05 ECG was reviewed by the Attending Physician. Vital Signs: 22:46 BP 124 / 79; Pulse 104; Resp 17; Temp 98.4; Pulse Ox 98% on R/A; Weight 83.91 kg; mr2 Height 5 ft. 2 in. (157.48 cm); Pain 1/10; 22:46 Body Mass Index 33.83 (83.91 kg, 157.48 cm) mr2 MDM: 22:41 Patient medically screened. kb 23:05 Data reviewed: vital signs, nurses notes. Data interpreted: Pulse oximetry: on room air kb is 98 %. Interpretation: normal. Counseling: I had a detailed discussion with the patient and/or guardian regarding: the historical points, exam findings, and any diagnostic results supporting the discharge/admit diagnosis, the need for outpatient follow up, a family practitioner, to return to the emergency department if symptoms worsen or persist or if there are any questions or concerns that arise at home. 05/23 22:41 Order name: EKG; Complete Time: 22:42 kb 05/23 22:41 Order name: EKG - Nurse/Tech; Complete Time: 23:28 kb EC:05 Rate is 109 beats/min. Rhythm is regular. QRS [place] is Normal. [place] interval is normal at kb 152 msec. QRS interval is normal at 74 msec. QT interval is normal at 348 msec. Administered Medications: 23:44 Drug: Flexeril (cyclobenzaprine) 10 mg Route: PO; mr2 Disposition: 05/24 06:10 Co-signature as Attending Physician, Raimundo Pollcak MD. [facility] Disposition Summary: 05/23/21 23:32 Discharge Ordered Location: Home kb Condition: Stable kb Diagnosis - Palpitations kb - Muscle spasm kb Followup: kb - With: Emergency Department - When: As needed - Reason: Worsening of condition Followup: kb - With: Private Physician - When: 2 - 3 days - Reason: Recheck today's complaints, Continuance of care, Re-evaluation by your physician Discharge Instructions: - Discharge Summary Sheet kb - Palpitations, Kdah-na-Acrl kb Forms: - Medication Reconciliation Form kb - Thank You Letter kb - Antibiotic Education kb - Prescription Opioid Use kb Signatures: Francie Maynard, MERON-C MERON-Raimundo Mcintosh MD MD [facility] Chiki Souza RN RN mr2
--- NOTE | 2021-05-23 23:33 | ER ---
Nurse's Notes [facility] Name: Carla Duncan Age: 25 yrs Sex: Female : 1995 Arrival Date: 05/23/2021 Time: 22:10 Bed 18 Private MD: Diagnosis: Palpitations;Muscle spasm Presentation: 05/23 22:46 Chief complaint: Patient states: has recent rx of Ambien,buspar and trazodone from her mr2 psychiatrist and feels after taking it that she is excessively fidgety and is having muscle spasms that she cannot control. denies si/hi. Coronavirus screen: Vaccine status: Patient reports receiving the 2nd dose of the covid vaccine. Ebola Screen: No symptoms or risks identified at this time. Initial Sepsis Screen: Does the patient meet any 2 criteria? No. Patient's initial sepsis screen is negative. Does the patient have a suspected source of infection? No. Patient's initial sepsis screen is negative. Risk Assessment: Do you want to hurt yourself or someone else? Patient reports no desire to harm self or others. Onset of symptoms was May 23, 2021 at 20:30. 22:46 Method Of Arrival: Ambulatory mr2 22:46 Acuity: VENKATESH 3 mr2 Triage Assessment: 22:51 General: Appears in no apparent distress. uncomfortable, well groomed, Behavior is mr2 cooperative, anxious. Pain: Denies pain. HEAD LIBRARIAN: 22:51 Living 1 mr2 Historical: - Allergies: 22:51 Toradol; mr2 22:51 Tussionex Pennkinetic ER; mr2 22:51 Codeine; mr2 22:51 Tramadol HCl; mr2 - Home Meds: 22:51 Ambien Oral [Active]; Trazodone Oral [Active]; mr2 - PMHx: 22:51 Anxiety; Bipolar disorder; mr2 - PSHx: 22:51 section; mr2 - Immunization history:: Adult Immunizations up to date. - Social history:: Smoking status: Patient denies any tobacco usage or history of. Screenin:46 Abuse screen: Denies threats or abuse. Denies injuries from another. Nutritional mr2 screening: No deficits noted. Tuberculosis screening: No symptoms or risk factors identified. Fall Risk None identified. Assessment: 23:45 General: Appears Behavior is cooperative, anxious. Musculoskeletal: Reports tremors. mr2 Vital Signs: 22:46 BP 124 / 79; Pulse 104; Resp 17; Temp 98.4; Pulse Ox 98% on R/A; Weight 83.91 kg; mr2 Height 5 ft. 2 in. (157.48 cm); Pain 1/10; 22:46 Body Mass Index 33.83 (83.91 kg, 157.48 cm) mr2 ED Course: 22:10 Patient arrived in ED. bp1 22:41 Francie Maynard FNP-C is PHCP. kb 22:41 Raimundo Pollack MD is Attending Physician. kb 22:45 Chiki Souza, JUDI is Primary Nurse. mr2 22:51 Triage completed. mr2 22:51 Arm band placed on. mr2 23:46 Patient has correct armband on for positive identification. Call light in reach. Side mr2 rails up X2. 23:46 No provider procedures requiring assistance completed. Patient did not have IV access mr2 during this emergency room visit. Administered Medications: 23:44 Drug: Flexeril (cyclobenzaprine) 10 mg Route: PO; mr2 Outcome: 23:32 Discharge ordered by . kb 23:46 Discharged to home ambulatory. mr2 23:46 Condition: stable 23:46 Discharge instructions given to patient, Instructed on discharge instructions, follow up and referral plans. Demonstrated understanding of 23:47 Patient left the ED. mr2 Signatures: Francie Maynard FNP-C BILINGUAL SECRETARY-Ckb Lisha Whittaker bp1 hCiki Souza, RN RN mr2 Corrections: (The following items were deleted from the chart) 22:55 22:46 BP 124 / 79; Pulse 84bpm; Resp 17bpm; Pulse Ox 98% RA; Temp 98.4F; 83.91 kg; mr2 Height 5 ft. 2 in.; BMI: 33.8; Pain 1/10; mr2
[2021-05-23] MEDS ORDERED: CYCLOBENZAPRINE 10 MG TAB ONE (23:41)
[2021-05-23] MEDS ORDERED: KCL 20 MEQ/100 mL IVPB 20 MEQ/100 ML BAG IV ONE (23:42)
[2021-05-23] MEDS ORDERED: POTASSIUM 25 MEQ EFFERV TAB ONE (23:42)
[2021-05-23 23:52] VITALS: BP 124/79; TEMP 98.4; O2SAT 98
== END 2021-05-23 23:47 | disposition home or self-care (01) ==
LOC: ER 22:04
DX: M62.838 Other muscle spasm (principal); F31.9 Bipolar disorder, unspecified; Z88.5 Allergy status to narcotic agent; Z88.8 Allergy status to other drugs, medicaments and biological substances
CPT/HCPCS: 93005; 99283; J3480

== ENCOUNTER 2021-07-20 14:04 | Emergency (ER) | payer OTHER ==
--- OUTSIDE RECORDS SUMMARY | 2021-07-20 14:08 | XMS REPORT | Continuity of Care Document ---
:1995 Author Organization [facility] t Address [address] [place]man[address]. [address] [place] [id number] Care Team Providers Name Role Phone Asked, Pcp Primary Care Physician Unavailable Gume CHANCE Attending Clinician Chapincito BUCHANAN S Attending Clinician Lluvia Rice Attending Clinician Geovani RIVERA Attending Clinician Unavailable Supa AREVALO, E Attending Clinician Singer FERNÁNDEZ Attending Clinician Geovani Barrera Admitting Clinician Unavailable Payers Payer Name Policy Type Policy Number Effective Date Expiration Date S ource HIM AMBETTER FROM [id number] [address] [facility] 00:00:00 [employer] [place] [id number] 2019 00:00:00 Advance Directives Directive Decision Effective Termination Comments Source Date Date Healthcare Agents on N/A Univ ersity FileNameRelationshipHealthcare of [place] Agent Medical RelationshipCommunicationChNemours [facility], [place] TrevinioMotherHealth Care [phone] (Mobile)Pancho Williamswander Velascognificant OtherFirst [facility]ate [facility] [phone] (Mobile) [email or web address] Problems Condition Condition Condition Status Onset Resolution Last Treating Co mments Source Name Details Category Date Date Treatment Clinician Date Obesity Obesity Disease Active Univers (BMI (BMI 1-16 ity of 30-39.9) 30-39.9) 00:00: [place] 00 [facility] Urinary Urinary Disease Active Univers tract [...] nivers 5-23 ity of 00:00: [place] 00 [facility] Family Family Disease Active Univers history of history of 8-26 it y of spina spina 00:00: [place] bifida bifida 00 [facility] No known No known Disease Metho [...] 00 l of [place] codeine DA Active OR 2018-0 [facility] [place] morphine DA Active U SWELLING 2018-0 [facility] 1[facility]19 [facility] 00 [facility] [place] codeine DA Active OR nausea, 2018- [facility] headache 1-19 [facility] 00:00: [facility] 00 l of [place] tramadol DA Active OR 2017- [facility] 2-31 [facility] 00:[facility]: [facility] 00 l of [place] tramadol DA Active OR CHEST PAIN 2017- [facility] 2-31 Woman's 00:00: [...] Natural mother Diabetes [facility] Natural mother Menstrual problems [facility] Social History Social Habit Start Date Stop Date Quantity Comments Source Exposure to Not sure [facility]-CoV-2 [facility] (event) [place] Tobacco use and 2020-12-31 2020-12-31 Never used Universit y of exposure 00:00:00 00:00:00 [facility] Alcohol intake 2020-12-31 2020-12-31 Current [facility] 00:00:00 00:00:00 non-drinker of [facility] alcohol [place] (finding) Alcohol Comment 2016-04-28 2016-04-28 social, weekly Metho [facility] 00:00:00 00:00:00 Sex Ass[birth year] At [birth year] Universit y of 00:00:00 00:00:00 [facility] Smoking Status Start Date Stop Date Source [facility] smoker [facility] Medications Ordered Filled Start Stop [...] NOW, 1 [place] tablet 00 :00 dose, [facility] 1,000 mg 12/31/20 at Branch 0300, RODRICK ibuprofen Yes [id number] 800mg Take 1 U nivers 800 mg 12-31 tablet by ity of tablet 00:00: mouth [place] 00 every 8 Medical (eight) Branch hours as needed for Pain (scale 4-6). cyclobenzap Yes [id number] 10mg Take 1 Univers rine 10 mg [...] 1,000 mL 00 :00 IV Medical Infusion, [place] ONCE, 1 dose, [facility] 11/20/20 at 1530, STAT metoclopram No 10mg 10 mg, Uni vers dio HCl 11-20- Slow IV ity of (REGLAN) 20:15: 19:18 Push, [place] injection 00 :00 ONCE, 1 Medical 10 mg dose, [facility] 11/20/20 at 1515, RODRICK ketorolac 2020- No 30mg 30 mg, Unive rs (TORADOL) 11-20 Slow IV ity of injection 20:15: 19:18 Push, [place] 30 mg 00 :00 ONCE, 1 Medical dose, Wed Branch 11/20/20 at 1515, RODRICK
[facility] : JOHN RIVERA diphenhydrA 2020- No 25mg 25 mg, Uni vers MINE 11-20 Slow IV ity of (BENADRYL) 20:15: 20:15 Push, [place] injection 00 :00 ONCE, 1 Medical 25 mg dose, Wed Branch 11/20/20 at 1515, STAT butalbital- Yes 1{tbl} 1 tablet, Univers acetaminoph 11-20 Oral, ity of en-caff 18:12: Q4HPRN, [place] (ESGIC) 27 Starting Medical 50-325-40 Wed Branch mg tablet 1 11/20/20 at tablet 1312, Until Discontinu ed, Routine, zofran ketorolac 2020-0 Yes [id number] 10mg Take 1 Un carolann 10 mg 5-26 tablet by ity of tablet 00:00: mouth [place] 00 every 6 Medical (six) Branch hours as needed for Pain (scale 4-6). cyclobenzap 2020-0 Yes [id number] 10mg Take 1 Univers rine 10 mg 5-26 tablet by ity of tablet 00:00: mouth 3 [place] 00 (three) Medical times Branch daily. ketorolac 2020-0 Yes [id number] 10mg Take 1 Un carolann 10 mg 5-26 tablet by ity of tablet 00:00: mouth [place] 00 every 6 Medical (six) Branch hours as needed for Pain (scale 4-6). cyclobenzap 2020-0 Yes [id number] 10mg Take 1 Univers rine 10 mg 5-26 tablet by ity of tablet 00:00: mouth 3 [place] 00 (three) Medical times Branch daily. ketorolac 0 2020- No 30mg 30 mg, Unive rs (TORADOL) 09-27 04- Intramuscu ity of injection 03:45: 02:57 lar, ONCE, [place] 30 mg 00 :00 1 dose, Medical Elicia 4/1/21 Branch at 2245, RODRICK
Fa [facility] member approving Restricted medication : Tricia HERBERT [...] 09/26/20 Branch at 2245, RODRICK ondansetron Yes [id number] 4mg Take 1 Univers (ZOFRAN 4-01 tablet by ity of ODT) 4 mg 00:00: mouth [place] disintegrat 00 every 8 Medic al ing tablet (eight) Branch hours as needed for Nausea and Vomiting (N/V). ondansetron Yes [id number] 4mg Take 1 Univers (ZOFRAN 4-01 tablet by ity of ODT) 4 mg 00:00: mouth [place] disintegrat 00 every 8 Medic al ing tablet (eight) Branch hours as needed for Nausea and Vomiting (N/V). ondansetron Yes [id number] 4mg Take 1 Univers (ZOFRAN 4-01 tablet by ity of ODT) 4 mg 00:00: mouth [place] disintegrat 00 every 8 Medic al ing tablet (eight) Branch hours as needed for Nausea and Vomiting (N/V). proMETHazin 0 Yes [id number] 25mg Take 1 Univers e 25 mg 2-09 tablet by ity of tablet 00:00: mouth [place] 00 every 6 Medical (six) Branch hours as needed for Nausea and Vomiting (N/V). proMETHazin 2020-0 Yes [id number] 25mg Take 1 Univers e 25 mg 2-09 tablet by ity of tablet 00:00: mouth [place] 00 every 6 Medical (six) Branch hours as needed for Nausea and Vomiting (N/V). proMETHazin 2020-0 Yes [id number] 25mg Take 1 Univers e 25 mg [...] Name Name Td 2011-06-28 Completed University 00:00:00 [facility] Td 2011-06-28 Completed University 00:00:00 [facility] Td 2011-06-28 Completed University 00:00:00 [facility] 2011-06-28 Completed [facility] 00:00:00 [facility] Vital Signs Vital Name Observation Time Observation Value Comments Source Systolic blood 2020-12-31 06:49:00 125 mm[Hg] Univer sity [facility] Diastolic blood 2020-12-31 06:49:00 93 mm[Hg] Unive rsity [facility] Heart rate 2020-12-31 06:49:00 104 /min [facility] Body temperature 2020-12-31 06:49:00 36.83 [place] [facility] Respiratory rate 2020-12-31 06:49:00 15 /min [facility] Body height 2020-12-31 06:49:00 152.4 cm [facility] Body weight 2020-12-31 06:49:00 92.5 kg [facility] BMI 2020-12-31 06:49:00 39.83 kg/m2 [facility] Oxygen saturation in 2020-12-31 06:49:00 99 /min [facility] Arterial blood by [facility] Pulse oximetry Branch Systolic blood 2020-12-31 06:49:00 125 mm[Hg] Univer sity of [facility] Diastolic blood 2020-12-31 06:49:00 93 mm[Hg] Unive rsity of [facility] Heart rate 2020-12-31 06:49:00 104 /min [facility]i ty [facility] [place] [facility] Body temperature 2020-12-31 06:49:00 36.83 [place] Univ ersity [facility] [place] [facility] Respiratory rate 2020-12-31 06:49:00 15 /min Univ ersity [facility] [place] [facility] Body height 2020-12-31 06:49:00 152.4 cm [facility]i ty [facility] [place] [facility] Body weight 2020-12-31 06:49:00 92.5 kg [facility] [place] [facility] BMI 2020-12-31 06:49:00 39.83 kg/m2 [facility] [place] [facility] Oxygen saturation in 2020-12-31 06:49:00 99 /min University of Arterial blood by [facility] Pulse oximetry Branch Systolic blood 2020-11-20 19:58:00 146 mm[Hg] Univer sity of pressure [place] [facility] Diastolic blood 2020-11-20 19:58:00 95 mm[Hg] Unive rsity of pressure [place] [facility] Heart rate 2020-11-20 19:58:00 98 /min Universi ty [facility] [place] [facility] Body temperature 2020-11-20 19:58:00 37.17 [place] Univ ersity [facility] [place] [facility] Respiratory rate 2020-11-20 19:58:00 17 /min Univ ersity of [place] [facility] Oxygen saturation in 2020-11-20 19:58:00 100 /min University of Arterial blood by [facility] Pulse oximetry Branch Body weight 2020-11-20 16:43:00 92.534 kg [facility]i ty [facility] [place] [facility] BMI 2020-11-20 16:43:00 39.84 kg/m2 [facility] [place] [facility] Systolic blood 2020-11-20 19:58:00 146 mm[Hg] Univer sity of [facility] [place] [facility] Diastolic blood 2020-11-20 19:58:00 95 mm[Hg] Unive rsity of [facility] [place] [facility] Heart rate 2020-11-20 19:58:00 98 /min Universi ty [facility] [place] [facility] Body temperature 2020-11-20 19:58:00 37.17 [place] Univ ers[facility] [place] [facility] Respiratory rate 2020-11-20 19:58:00 17 /min Univ ersity [facility] [place] [facility] Oxygen saturation in 2020-11-20 19:58:00 100 /min University of Arterial blood by [facility] Pulse oximetry Branch Body weight 2020-11-20 16:43:00 92.534 kg [facility]i ty [facility] [place] [facility] BMI 2020-11-20 16:43:00 39.84 kg/m2 [facility]i ty [facility] [place] [facility] Body height 2020-09-26 23:49:00 152.4 cm [facility]i [facility] [place] [facility] Body weight 2020-09-26 23:49:00 90.719 kg [facility]i ty [facility] [place] [facility] BMI 2020-09-26 23:49:00 39.06 kg/m2 [facility] [place] [facility] Systolic blood 2020-09-26 23:45:00 103 mm[Hg] Univer sity of [facility] [place] [facility] Diastolic blood 2020-09-26 23:45:00 62 mm[Hg] Unive rsity of [facility] [place] [facility] [place] Heart rate 2020-09-26 23:45:00 107 /min Universi ty [facility] [place] [facility] [place] Body temperature 2020-09-26 23:45:00 36.61 [place] Univ ers[facility] [place] [facility] Respiratory rate 2020-09-26 23:45:00 18 /min Univ ersity [facility] [place] [facility] Oxygen saturation in 2020-09-26 23:45:00 97 /min University of Arterial blood by [facility] Pulse oximetry Branch Body height 2020-09-26 23:49:00 152.4 cm [facility]i ty [facility] [place] [facility] Body weight 2020-09-26 23:49:00 90.719 kg [facility] [place] [facility] BMI 2020-09-26 23:49:00 39.06 kg/m2 [facility] [place] [facility] Systolic blood 2020-09-26 23:45:00 103 mm[Hg] Univer sity of pressure [place] [facility] Diastolic blood 2020-09-26 23:45:00 62 mm[Hg] Unive rsity of [facility] [place] [facility] Heart rate 2020-09-26 23:45:00 107 /min Universi ty [facility] [place] [facility] Body temperature 2020-09-26 23:45:00 36.61 [place] Univ ersity [facility] [place] [facility] Respiratory rate 2020-09-26 23:45:00 18 /min Univ ersity [facility] [place] [facility] Oxygen saturation in 2020-09-26 23:45:00 97 /min University of Arterial blood by [facility] Pulse oximetry Branch Systolic blood 2020-07-17 14:00:00 112 mm[Hg] Univer sity of [facility] [place] [facility] Diastolic blood 2020-07-17 14:00:00 65 mm[Hg] Unive rsity of [facility] [place] [facility] Heart rate 2020-07-17 14:00:00 86 /min Universi ty [facility] [place] [facility] Respiratory rate 2020-07-17 14:00:00 20 /min Univ ersity [facility] [place] [facility] Oxygen saturation in 2020-07-17 14:00:00 100 /min University of Arterial blood by [facility] Pulse oximetry Branch Body temperature 2020-07-17 11:50:00 37.22 [place] [facility] ersity of [place] [facility] Body weight 2020-07-17 11:50:00 86.183 kg Universi ty [facility] [place] [facility] BMI 2020-07-17 11:50:00 37.11 kg/m2 [facility] [place] [facility] Systolic blood 2020-07-17 14:00:00 112 mm[Hg] Univer sity of [facility] [place] [facility] Diastolic blood 2020-07-17 14:00:00 65 mm[Hg] Unive rsity of [facility] [place] [facility] Heart rate 2020-07-17 14:00:00 86 /min Universi ty [facility] [place] [facility] Respiratory rate 2020-07-17 14:00:00 20 /min Univ ersity of [place] [facility] Oxygen saturation in 2020-07-17 14:00:00 100 /min University of Arterial blood by [facility] Pulse oximetry Branch Body temperature 2020-07-17 11:50:00 37.22 [place] [facility] ersity of [place] [facility] Body weight 2020-07-17 11:50:00 86.183 kg Universi ty [facility] [place] [facility] BMI 2020-07-17 11:50:00 37.11 kg/m2 [facility] [place] [facility] Procedures Procedure Date / Time Performed Performing Clinician Sour e RAPID STREP SCREEN FOR 2020-12-31 07:13:00 Akiko Dunaway [facility] GROUP A Medical Branch NOTICE OF PRIVACY 2020-12-31 06:34:54 Doctor Unassigned, No [facility] Name Medical Branch CONSENT/REFUSAL FOR 2020-12-31 06:34:35 Doctor Unassigned, No Un iversity [facility] [place] DIAGNOSIS AND Name Medical Branch TREATMENT CT HEAD WO CONTRAST 2020-11-20 18:18:22 John Rivera [facility] POCT TEST 2020-11-20 17:50:00 John Rivera [facility] BASIC METABOLIC PANEL 2020-11-20 17:24:00 John Rivera [facility] (NA, K, CL, CO2, Medical Branch GLUCOSE, BUN, CREATININE, CA) CBC WITH DIFF 2020-11-20 17:24:00 John Rivera [facility] CONSENT/REFUSAL FOR 2020-11-20 16:36:59 Doctor Unassigned, No Un iversity [facility] DIAGNOSIS AND Name [facility] TREATMENT POCT TEST 2020-09-27 02:56:00 Tricia Herbert [facility] ASSIGNMENT OF BENEFITS 2020-09-27 01:35:31 Doctor Unassigned, No [facility] CONSENT/REFUSAL FOR 2020-09-26 23:26:24 Doctor Unassigned, No Un [facility] [place] DIAGNOSIS AND Name [facility] TREATMENT URINALYSIS 2020-07-17 14:08:00 Austin Cowart [facility] POCT TEST 2020-07-17 14:08:00 Austin Cowart [facility] CBC WITH DIFF 2020-07-17 12:25:00 Austin Cowart [facility] NOTICE OF PRIVACY 2020-07-17 11:48:39 Doctor Unassigned, No [facility] [place] CONSENT/REFUSAL FOR 2020-07-17 11:44:41 Doctor Unassigned, No [facility] [place] DIAGNOSIS AND Name [facility] TREATMENT Plan of Care Planned Activity Planned Date Details Comments Source Future Scheduled Test Hepatitis C screening [facility] (procedure) [code = 154684537] Future Scheduled Test Screening for [facility] malignant neoplasm of cervix (procedure) [code = 529575730] Future Scheduled Test INFLUENZA VACCINE [facility] [code = INFLUENZA VACCINE] Future Scheduled Test COVID-19 VACCINE (1) [facility] [code = COVID-19 VACCINE (1)] Encounters Start End Encounter Admission Attending Care Care Encounter Source Date/Time Date/Time Type Type Clinicians Facility Department ID 2021-04-28 Emergency [facility] [id number] Univers 06:08:31 ity of [facility] 2021-04-27 Emergency [facility] [id number] Univers 21:27:31 ity [facility] 2021-04-27 Emergency [facility] [id number] Univers 10:13:04 ity of [facility] 2021-04-26 Emergency [facility] [id number] Univers [facility]:11[facility]30 [facility] [id number] [facility] 09:14:00 [id number] [facility] 2020-12-31 2020-12-31 [facility] [id number] Univers 02:02:00 03:26:00 Akiko [place] [id number] i ty of [place] 4.2.7.2.686 [facility] [id number] [address] 2020-12-31 2020-12-31 Emergency [facility] [id number] 02:02:00 03:26:00 Akiko [place] [id number] [place] 4.2.7.2.686 Aroda [id number] [facility] 2020-11-20 2020-11-20 [facility] [id number] Univers 11:47:00 15:01:00 John S [place] [id number] i ty of [place] 4.2.7.2.686 [facility] [id number] [address] 2020-11-20 2020-11-20 Emergency [place], [facility] [id number] 11:47:00 15:01:00 John S [place] [id number] [place] 4.2.7.2.686 Aroda [id number] [facility] 2020-09-26 2020-09-26 Emergency Tricia Herbert [facility] [id number] [facility] 18:51:00 22:39:00 Lluvia Mejia 350.1.13.10 i ty [facility] 4.2.7.2.686 [facility] [id number] [address] 2020-09-26 2020-09-26 Emergency Tricia Herbert [facility] [id number] 18:51:00 22:39:00 Lluvia Mejia 350.1.13.10 [place] 4.2.7.2.686 Aroda [id number] 2020-08-06 2020-08-06 Emergency Kami RIVERA, [facility] ERT [id number] Univers 10:13:00 12:49:00 [facility] 2020-07-17 2020-07-17 Emergency Supa Austin Ravi [facility] 1.2.840 .114 [id number] [facility] 05:53:00 08:59:00 Dani Kauffman 350.1.13.10 ity [facility] 4.2.7.2.686 [facility] [id number] [address] 2020-07-17 2020-07-17 Emergency Austin Cowart Ravi [facility] 1.2.840 .114 [id number] 05:53:00 08:59:00 Kauffman, Dani Mejia 350.1.13.10 [place] [address] [place] [address] [id number] Results Test Description Test Time Test Comments Results Result Comments Source RAPID STREP SCREEN FOR GROUP A 2020-12-31 07:59:00 Test Item Value Reference Range Interpretation Comme nts Streptococcus pyogenes (group A) antigen (test code = 75937- 2) Negative Negative Lab Interpretation (test code = 22080-2) Normal [facility] [id number] 18:21:18No acute findings. HISTORY:Head trauma, mod-severe hit left head, near syncope, persistentsevere headache and dizziness TECHNIQUE: Noncontrast head CT was performed. COMPARISON:None FINDINGS: The ventricles and sulci are appropriate for patient's age. There is no midline shift. The basal cisterns are preserved. No largevascular territory infarction, intracranial hemorrhage or mass effect isseen. The extracranial tissues demonstrate no acute findings. [facility], Radiant Results Inft User - 11/20/2020 1:22 PM CDT HISTORY:Head trauma, mod-severe hit left head, near syncope, persistentsevere headache and dizziness TECHNIQUE: Noncontrast head CT was performed.COMPARISON:NoneFINDINGS:The ventricles and sulci are appropriate for patient's age.There is no midline shift. The basal cisterns are preserved. No largevascular territory infarction, intracranial hemorrhage or mass effect isseen.The extracranial tissues demonstrate no acute findings.IMPRESSIONNo acute findings.[facility] METABOLIC PANEL (NA, K, CL, CO2, GLUCOSE, BUN, CREATININE, CA)2020-11-20 18:00:40 Test Item Value Reference Range Interpretation Comments NA (test code = 137 mmol/L 135-145 2991304420) K (test code = 4.2 mmol/L 3.5-5.0 9593668444) CL (test code = 104 mmol/L 98-108 5141065169) CO2 TOTAL (test code = 22 mmol/L 23-31 L 6196472323) AGAP (test code = 2-16 9498185199) BUN (test code = 10 mg/dL 7-23 1966628620) GLUCOSE (test code = 150 mg/dL 70-110 H 9062370676) CREATININE (test code = 0.59 mg/dL 0.50-1.04 9463876034) CALCIUM (test code = 9.5 mg/dL 8.6-10.6 9417334601) eGFR (test code = mL/min/1.73m2 1512425691) TOBI (test code = TOBI) Association of [...] tests). Lab Interpretation Abnormal (test code = 78988-3) [facility] [id number] 17:50:00 Test Item Value Reference Range Interpretation Comments POCT PREG (test code = 1605) negative On board controls acceptable with present C Line (test code = 3574) POCT PREG LOT # (test code = 3575) [id number] POCT PREG TEST DATE (test 05/27/2022 code = 3576) Lab Interpretation (test code = Normal 94248-8) [facility] WITH [id number] 17:32:17 Test Item Value Reference Range Interpretation Comments WBC (test code = See_Comment [Automated 6913-2) message] The sy stem which generated this result transmitted reference range : 4.30 - 11.10 10*3/?L. The reference range was not used to interpret this result as normal/abnormal . RBC (test code = See_Comment [Automated 290-) message] The sy stem which generated this [...] RDW-SD (test code = 40.4 fL 39.0-49.9 08179-8) RDW-CV (test code = 13.0 % 12.0-15.5 788-0) PLT (test code = See_Comment H [Automated 777-3) message] The sy stem which generated this result transmitted reference range : 166 - 358 10*3/ ?L. The reference r shira was not used to interpret this result as normal/abnormal . MPV (test code = 9.5 fL 9.5-12.9 26550-2) NRBC/100 WBC (test See_Comment [Automat ed code = 6278258132) message] The system which generated this result transmitted reference range : 0.0 - 10.0 /100 WBCs. The refer ence range was not u sed to interpret th is result as normal/abnormal . NRBC x10^3 (test code <0.01 See_Comment [Auto mated = 2791690411) message] The s ystem which generated this result transmitted reference range : 10*3/?L. The reference range was not used to interpret this result as normal/abnormal . GRAN MAT (NEUT) % 83.0 % (test code = 770-8) IMM GRAN % (test code 0.70 % = 0757347013) LYMPH % (test code = 12.5 % 736-9) MONO % (test code = 3.7 % 5905-5) EOS % (test code = 0.0 % 713-8) BASO % (test code = 0.1 % 706-2) GRAN MAT x10^3(ANC) 8.41 10*3/uL 1.88-7.09 H (test code = 3018127194) IMM GRAN x10^3 (test 0.07 10*3/uL 0.00-0.06 H code = 4832276856) LYMPH x10^3 (test code 1.26 10*3/uL 1.32-3.29 L = 731-0) MONO x10^3 (test code 0.37 10*3/uL 0.33-0.92 = 742-7) EOS x10^3 (test code = <0.03 0.03-0.39 L 711-2) BASO x10^3 (test code <0.03 0.01-0.07 = 704-7) Lab Interpretation Abnormal (test code = 62297-4) [facility] [id number] 02:56:00 Test Item Value Reference Range Interpretation Comments POCT PREG (test code = 1605) negative On board controls acceptable with present C Line (test code = 3574) POCT PREG LOT # (test code = 3575) [id number] POCT PREG TEST DATE (test 02/25/2022 code = 3576) Lab Interpretation (test code = Normal 83590-4) [facility] GC DNA BY [id number] 14:24:00 Test Item Value Reference Range Interpretation Comments C. TRACHOMATIS DNA BY Negative Negative PCR (test code = CHLAMTDNA) N. GONORRHOEAE DNA BY Negative Negative Perfor med At: ST PCR (test code = [facility] James NGONORDNA) [id number] [facility] [place] [id number] Rodrigues MD Ph:[phone] - DUP AB/PEL/SC/[id number] 14:12:00 [facility] : 1995 Sex: F Patient Name: FATMATA DEGROOT Unit No: [id number] EXAMS: CPT CODE: [id number] DUP AB/PEL/SC/LTD 30457 PELVIC ULTRASOUND, 08/01/2020: COMPARISON: CT pelvis dated [...] Orig Print D/T: S: 08/01/2020 (1415) [facility] NAME: DEGROOT,FATMATA Radiology DepartmentPHYS: Winter Landaverde MD [address] : 1995 AGE: 24 SEX: F [place] [address] LOC: F.ERS PHONE #: [phone] EXAM DATE: 08/01/2020 STATUS: REG ER FAX #: [phone] RAD NO: Page 1 Signed Report Patient Name: FATMATA DEGROOT Unit No: [id number] EXAMS: CPT CODE: [id number] DUP AB/PEL/SC/LTD 66331 <Continued> [facility] NAME: DEGROOT,FATMATA Radiology Department PHYS: Winter Landaverde MD [address] : 1995 AGE: 24 SEX: F [place] [address] LOC: SANDY PHONE #: [phone] DATE: 08/01/2020 STATUS: BALTAZAR LOVE FAX #: [phone] RAD NO: Page 2 Signed Report- US TRANSVAGINAL [id number] 14:12:00[facility] : 1995 Sex: F Patient Name: FATMATA DEGROOT Unit No: [id number] EXAMS: CPT CODE: [id number] US TRANSVAGINAL W/PELVIS 03186 PELVIC ULTRASOUND, 08/01/2020: COMPARISON: CT pelvis dated [...] Austin Barrera Technologist: Alexandra Elder RDMS Probe: [id number] Trnscrbd D/ (1412) [email or web address] Orig Print D/T: S: 08/01/2020 (1415) [facility] NAME: FATMATA DEGROOT Radiology DepartmentPHYS: ELLISSalimaWinter Ortiz MD [address] : 1995 AGE: 24 SEX: F [place] [address] LOC: Sarna.ERS PHONE #: [phone] EXAM DATE: 08/01/2020 STATUS: REG ER FAX #: [phone] RAD NO: Page 1 Signed Report Patient Name: FATMATA DEGROOT Unit No: [id number] EXAMS: CPT CODE: [id number] US TRANSVAGINAL W/PELVIS 60727 <Continued> [facility] NAME: DEGROOT,FATMATA Radiology Department PHYS: Jay Winter Wilkins MD [address] : 1995 AGE: 24 SEX: F [place], [place] [address] LOC: F.ERS PHONE #: [phone] DATE: 08/01/2020 STATUS: REG ER FAX #: [phone] RAD NO: Page 2 Signed Report- US PELVIS [id number] 14:12:[address] : 1995 Sex: F Patient Name: FATMATA DEGROOT Unit No: [id number] EXAMS: CPT CODE: [id number] US PELVIS COMPLETE 80356 PELVIC ULTRASOUND, 08/01/2020: COMPARISON: CT pelvis dated [...] Orig Print D/T: S: 08/01/2020 (1415) [facility] NAME: FATMATA DEGROOT Radiology DepartmentPHYS: Winter Landaverde MD [address] : 1995 AGE: 24 SEX: F [place], [place] [address] LOC: ShaylaERS PHONE #: [phone] EXAM DATE: 08/01/2020 STATUS: REG ER FAX #: [phone] RAD NO: Page 1 Signed Report Patient Name: FATMATA DEGROOT Unit No: [id number] EXAMS: CPT CODE: [id number] US PELVIS COMPLETE 69152 <Continued> [facility] NAME: FATMATA DEGROOT Radiology Department PHYS: Winter Landaverde MD [address] : 1995 AGE: 24 SEX: F [place], [place] [address] LOC: SANDY PHONE #: [phone] DATE: 08/01/2020 STATUS: BALTAZAR LOVE FAX #: [phone] RAD NO: Page 2 Signed Report- CT ABD PELVIS W/O [id number] 10:58:00[facility] : 1995 Sex: F Patient Name: FATMATA DEGROOT Unit No: [id number] EXAMS: CPT CODE: [id number] CT ABD PELVIS W/O CONT 30889 CT ABDOMEN/CT STONE SURVEY WITHOUT CONTRAST, 08/01/2020 [...] mm right middle lobe pulmonary nodule. [facility] NAME: FATMATA DEGROOT Radiology Department PHYS: Winter Landaverde MD [address] : 1995 AGE: 24 SEX: F [place] [address] LOC: Saran.ERS PHONE #: [phone] EXAM DATE: 08/01/2020 STATUS: REG ER FAX #:[phone] RAD NO: Page 1 Signed Report 1 Patient Name: FATMATA DEGROOT Unit No: [id number] EXAMS: CPT CODE: [id number] CT ABD PELVIS W/O CONT 05670 <Continued> CT PELVIS WITHOUT CONTRAST: No opaque [...] Joe Agudelo MD CC: Winter Mccollum MD; [facility] Technologist: Art Church, RT, CT CTDI: 13.28 DLP: 653.43 Trnscrbd D/ (1058) t.[email or web address].AJ13 [facility] NAME: DEGROOTFATMATA Radiology Department PHYS: Winter Landaverde MD [address] : 1995 AGE: 24 SEX: F [place], [place] [address] LOC: Saran.ERS PHONE #: [phone] EXAM DATE: 08/01/2020 STATUS: REG ER FAX #: [phone] RAD NO: Page 2 Signed Report 1 Patient Name: FATMATA DEGROOT Unit No: [id number] EXAMS: CPT CODE: [id number] CT ABD PELVIS W/O CONT 76002 <Continued> Orig Print D/T: S: 08/01/2020 (1101) [facility] NAME: FATMATA DEGROOT Radiology Department PHYS: Winter Landaverde MD [address] : 1995 AGE: 24 SEX: F [place], [place] [address] LOC: SANDY PHONE #: [phone] EXAM DATE: 08/01/2020 STATUS: REG ER FAX #: [phone] RAD NO: Page 3 Signed Report 1UA RFLX MICR CULT IF [id number] 10:04:00 Test Item Value Reference Range Interpretation [...] culture: Suprapubic PainSpecimen Description: CLEAN CATCHUR HCG [id number] 10:04:00 Test Item Value Reference Range Interpretation [...] Description: CLEAN CATCHUA RFLX MICR CULT IF [id number] 10:03:00 Test Item Value Reference Range Interpretation [...] PH DIPSTICK (test code = 6.0 5-9 DAINELLA) UA PROTEIN DIPSTICK (test code NEGATIVE NEG [...] culture: Suprapubic PainSpecimen Description: CLEAN CATCHUR HCG [id number] 10:03:00 Test Item Value Reference Range Interpretation Comments UR HCG QUAL (test code = HCGQLU) Indication for culture: Suprapubic PainSpecimen Description: CLEAN CATCH [id number] 14:39:00 Test Item Value Reference Range Interpretation Comments APPEARANCE (test code = Hazy Clear A 5707875795) COLOR (test code = Yellow Yellow 3351485386) PH (test code = 4.8-8.0 5906493129) SP GRAVITY (test code = 1.003-1.030 4325558576) GLU U QUAL (test code = Normal Normal 9527386742) BLOOD (test code = Negative Negative INTERFERE NCE FROM 1767986368) ASCORBIC ACID M AY CAUSE FALSE NEG ATIVE RESULT KETONES (test code = Negative Negative 4620386977) PROTEIN (test code = Negative Negative 2887-8) UROBILIN (test code = Normal Normal 8000201150) BILIRUBIN (test code = Negative Negative 0117817028) NITRITE (test code = Negative Negative 1029949890) LEUK SILVINO (test code = Negative Negative 5455110102) RBC/HPF (test code = See_Comment [Autom ated message] 5317933389) The system [employer] generated this result transmitted ref erence range: 0 - 3 HP F. The reference range was not used to int erpret this result as normal/abnormal . WBC/HPF (test code = <1 See_Comment [Autom ated message] 5406384326) The system [employer] generated this result transmitted ref erence range: 0 - 5 HP F. The reference range was not used to int erpret this result as normal/abnormal . BACTERIA (test code = Few Negative A 5179223688) MUCOUS (test code = Slight Negative LPF A 4080635483) SQ EPITH (test code = HPF 5711012281) Lab Interpretation (test Abnormal code = 91850-2) [id number] 14:08:00 Test Item Value Reference Range Interpretation Comments POCT PREG (test code = 1605) negative On board controls acceptable with present C Line (test code = 3574) POCT PREG LOT # (test code = 3575) [id number] POCT PREG TEST DATE (test 2022-02-25 code = 3576) Lab Interpretation (test code = Normal 82961-4) [facility] WITH [id number] 12:41:00 Test Item Value Reference Range Interpretation Comments WBC (test code = See_Comment [Automated 1190-2) message] The sy stem which generated this [...] RDW-SD (test code = 40.8 fL 39-49.9 62393-0) RDW-CV (test code = 13.0 % 12-15.5 788-0) PLT (test code = See_Comment H [Automated 777-3) message] The sy stem which generated this result transmitted reference range : 166 - 358 10*3/ ?L. The reference r shira was not used to interpret this result as normal/abnormal . MPV (test code = 9.5 fL 9.5-12.9 71602-8) NRBC/100 WBC (test See_Comment [Automat ed code = 6285114781) message] The system which generated this result transmitted reference range : 0.0 - 10.0 /100 WBCs. The refer ence range was not u sed to interpret th is result as normal/abnormal . NRBC x10^3 (test code <0.01 See_Comment [Auto mated = 8211302661) message] The s ystem which generated this result transmitted reference range : 10*3/?L. The reference range was not used to interpret this result as normal/abnormal . GRAN MAT (NEUT) % 49.7 % (test code = 770-8) IMM GRAN % (test code 0.40 % = 4630383772) LYMPH % (test code = 37.6 % 736-9) MONO % (test code = 6.3 % 5905-5) EOS % (test code = 5.4 % 713-8) BASO % (test code = 0.6 % 706-2) GRAN MAT x10^3(ANC) 4.65 10*3/uL 1.88-7.09 (test code = 2939169977) IMM GRAN x10^3 (test 0.04 10*3/uL 0-0.06 code = 8573697326) LYMPH x10^3 (test code 3.52 10*3/uL 1.32-3.29 H = 731-0) MONO x10^3 (test code 0.59 10*3/uL 0.33-0.92 = 742-7) EOS x10^3 (test code = 0.51 10*3/uL 0.03-0.39 H 711-2) BASO x10^3 (test code 0.06 10*3/uL 0.01-0.07 = 704-7) Lab Interpretation Abnormal (test code = 36468-2) [facility] W/AUTO [id number] 07:27:00 Test Item Value Reference Range Interpretation [...] NORMAL code = PLTMR) AG HEPATITIS B [id number] 04:15:00 Test Item Value Reference Range Interpretation Comments AG HEPATITIS B SURFACE (test code NONREACTIVE NONREACTIVE = HBSAG) AB HEPATITIS C [id number] 04:15:00 Test Item Value Reference Range Interpretation Comments AB HEPATITIS C (test code = NONREACTIVE NONREACTIVE HCVAB) SIGNAL TO CUTOFF (test code = 0.13 <0.80 N CUTOFF) RUBELLA [id number] 04:15:00 Test Item Value Reference Range Interpretation Comments RUBELLA SCREEN 70.2 IUnit/ml Results >10. 0IUnits/ml (test code = are considered positive RUBSC) inaccordance wi th the CLSI guidelines and based on the [employer] S tandard for Anti-Rubell a serum as anindicator of immune status and a br eakpoint to detect mostseropositiv e persons. AB [id number] 04:15:00 Test Item Value Reference Range Interpretation Comments AB TREPONEMA (test code = TREPAB) NONREACTIVE NONREACTIVE AG HEPATITIS B [id number] 04:00:00 Test Item Value Reference Range Interpretation Comments AG HEPATITIS B SURFACE (test code NONREACTIVE NONREACTIVE = HBSAG) AB HEPATITIS C [id number] 04:00:00 Test Item Value Reference Range Interpretation Comments AB HEPATITIS C (test code = HCVAB) NONREACTIVE SIGNAL TO CUTOFF (test code = CUTOFF) <0.80 RUBELLA [id number] 04:00:00 Test Item Value Reference Range Interpretation Comments RUBELLA SCREEN 70.2 IUnit/ml Results >10. 0IUnits/ml (test code = are considered positive RUBSC) inaccordance wi th the CLSI guidelines and based on the O International S tandard for Anti-Rubell a serum as anindicator of immune status and a br eakpoint to detect mostseropositiv e persons. AB [id number] 04:00:00 Test Item Value Reference Range Interpretation Comments AB TREPONEMA (test code = TREPAB) NONREACTIVE NONREACTIVE CBC W/AUTO [id number] 00:36:00 Test Item Value Reference Range Interpretation [...]
[2021-07-20 15:35] LABS: SARS-COV-2 RT PCR NEGATIVE (NEGATIVE)
[2021-07-20] MEDS ORDERED: ACETAMINOPHEN 500 MG TAB ONE (16:19)
[2021-07-20] MEDS ORDERED: GUAIFENESIN/CODEINE 5ML UCUP ONE (16:19)
--- NOTE | 2021-07-20 17:05 | ER ---
Nurse's Notes [facility] Name: Carla Duncan Age: 25 yrs Sex: Female : 1995 Arrival Date: 07/20/2021 Time: 14:09 Bed DIS3 Private MD: Diagnosis: Acute pharyngitis, unspecified Presentation: 07/20 14:32 Chief complaint: Patient states: body aches chills flu like syptoms. Coronavirus marcum screen: Vaccine status: Patient reports being unvaccinated. Ebola Screen: Patient denies travel to an Ebola-affected area in the 21 days before illness onset. Initial Sepsis Screen: Does the patient meet any 2 criteria? HR > 90 bpm. Does the patient have a suspected source of infection? No. Patient's initial sepsis screen is negative. Risk Assessment: Do you want to hurt yourself or someone else? Patient reports no desire to harm self or others. Onset of symptoms was 2021. 14:32 Method Of Arrival: Ambulatory marcum 14:32 Acuity: VENKATESH 4 marcum Triage Assessment: 15:32 General: Appears in no apparent distress. Behavior is calm, cooperative. Pain: marcum Complains of pain in face and scalp. EENT:. Neuro: Reports headache in entire. 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 - Social history:: Smoking status: Patient denies any tobacco usage or history of. Screenin:31 Abuse screen: Denies threats or abuse. Denies injuries from another. Nutritional marcum screening: No deficits noted. Tuberculosis screening: No symptoms or risk factors identified. Fall Risk None identified. Vital Signs: 14:32 BP 126 / 87; Pulse 104; Resp 18; Temp 97.6; Pulse Ox 100% on R/A; Weight 90.72 kg; marcum Height 5 ft. (152.40 cm); 14:32 Body Mass Index 39.06 (90.72 kg, 152.40 cm) marcum ED Course: 14:09 Patient arrived in ED. as 14:34 Triage completed. marcum 15:29 Skyler Krause NP is PHCP. pm1 15:29 Hal Watters MD is Attending Physician. pm1 15:31 Patient has correct armband on for positive identification. Bed in low position. marcum 15:31 No provider procedures requiring assistance completed. marcum 15:32 Arm band placed on. marcum 16:22 Masha Wong, RN is Primary Nurse. ld1 16:23 Strep Sent. ld1 17:21 Patient did not have IV access during this emergency room visit. ld1 Administered Medications: 16:23 Drug: guaiFENesin Liquid 15 ml Route: PO; ld1 16:23 Drug: Tylenol 1000 mg Route: PO; ld1 Outcome: 17:04 Discharge ordered by . pm1 17:21 Discharged to home ambulatory, with family. ld1 17:21 Condition: stable 17:21 Discharge instructions given to patient, family, Instructed on discharge instructions, follow up and referral plans. Demonstrated understanding of instructions, follow-up care. 17:21 Patient left the ED. ld1 Signatures: Adele Lopez as Skyler Krause NP TYPESETTING SUPERVISOR pm1 Masha Wong, JUDI LAU ld1 Maria Alejandra Paniagua RN RN
--- NOTE | 2021-07-20 17:06 | EDPHYS ---
[facility] Name: Carla Duncan Age: 25 yrs Sex: Female : 1995 Arrival Date: 07/20/2021 Time: 14:09 Bed DIS3 Private MD: ED Physician Hal Watters HPI: 07/20 16:16 This 25 yrs old Female presents to ER via Ambulatory with complaints of Flu pm1 Symptoms. 16:16 Onset: The symptoms/episode began/occurred 3 day(s) ago. Associated signs and symptoms: pm1 Pertinent positives: sore throat, nasal congestion, swollen lymph nodes on neck. Modifying factors: The patient symptoms are alleviated by nothing, the patient symptoms are aggravated by nothing. The patient has not recently seen a physician. Presenting with her children and have diarrhea for the same time frame. 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 - Social history:: Smoking status: Patient denies any tobacco usage or history of. ROS: 16:16 Cardiovascular: Negative for chest pain, palpitations, and edema, Respiratory: Negative pm1 for shortness of breath, cough, wheezing, and pleuritic chest pain. 16:16 Abdomen/GI: Negative for abdominal pain, nausea, vomiting, diarrhea, and constipation, Back: Negative for injury and pain, MS/Extremity: Negative for injury and deformity, Skin: Negative for injury, rash, and discoloration. 16:16 Constitutional: Positive for body aches, Negative for fever, poor PO intake. 16:16 ENT: Positive for sore throat, Negative for drainage from ear(s), ear pain. 16:16 Neck: Positive for swollen nodes, Negative for pain with movement. 16:16 Neuro: Positive for headache, Negative for numbness, tingling, weakness. 16:16 All other systems are negative. Exam: 16:16 Constitutional: This is a well developed, well nourished patient who is awake, alert, pm1 and in no acute distress. Head/Face: Normocephalic, atraumatic. 16:16 Skin: Warm, dry with normal turgor. Normal color with no rashes, no lesions, and no evidence of cellulitis. MS/ Extremity: Pulses equal, no cyanosis. Neurovascular intact. Full, normal range of motion. 16:16 ENT: Exam is negative for acute changes, TM's: no acute changes, Mouth: no acute changes, Lips: normal, moist, Oral mucosa: normal, pink and intact, moist, Posterior pharynx: Airway: no evidence of obstruction, patent, Tonsils: bilaterally enlarged, with erythema, no exudate, no ulcerations. 16:16 Cardiovascular: Exam negative for acute changes, Rate: normal, Rhythm: regular, Pulses: no pulse deficits are appreciated, Heart sounds: normal. 16:16 Respiratory: Exam negative for acute changes, respiratory distress, shortness of breath, Breath sounds: are clear throughout. 16:16 Abdomen/GI: Exam negative for acute changes, Inspection: abdomen appears normal, Palpation: abdomen is soft and non-tender, in all quadrants. 16:16 Neuro: Exam negative for acute changes, Orientation: is normal, Mentation: is normal, Motor: is normal, moves all fours. Vital Signs: 14:32 BP 126 / 87; Pulse 104; Resp 18; Temp 97.6; Pulse Ox 100% on R/A; Weight 90.72 kg; marcum Height 5 ft. (152.40 cm); 14:32 Body Mass Index 39.06 (90.72 kg, 152.40 cm) marcum MDM: 15:31 Patient medically screened. pm1 17:02 Data reviewed: vital signs. Data interpreted: Pulse oximetry: on room air is 100 %. pm1 Interpretation: normal. 17:02 Counseling: I had a detailed discussion with the patient and/or guardian regarding: the pm1 historical points, exam findings, and any diagnostic results supporting the discharge/admit diagnosis, lab results, Patient would like to leave now prior to strep results because the children are getting restless. 18:27 Counseling: I had a detailed discussion with the patient and/or guardian regarding: lab pm1 results, negative strep result. 07/20 14:16 Order name: COVID-19/FLU A+B (Document "Date of Onset" if Symptomatic); Complete Time: ld1 15:49 07/20 16:15 Order name: Strep pm1 07/20 16:16 Order name: Group A Streptococcus Rapid Sc; Complete Time: 17:05 EDMS Administered Medications: 16:23 Drug: guaiFENesin Liquid 15 ml Route: PO; ld1 16:23 Drug: Tylenol 1000 mg Route: PO; ld1 Disposition Summary: 07/20/21 17:04 Discharge Ordered Location: Home pm1 Condition: Stable pm1 Problem: new pm1 Symptoms: have improved pm1 Diagnosis - Acute pharyngitis, unspecified pm1 Followup: pm1 - With: Emergency Department - When: As needed - Reason: Worsening of condition Followup: pm1 - With: Private Physician - When: 2 - 3 days - Reason: Recheck today's complaints, Continuance of care, Re-evaluation by your physician Discharge Instructions: - Discharge Summary Sheet pm1 - Pharyngitis pm1 Forms: - Medication Reconciliation Form pm1 - Thank You Letter pm1 - Antibiotic Education pm1 - Prescription Opioid Use pm1 Addendum: 07/22/2021 19:01 Co-signature as Attending Physician, Hal Watters MD. r n Signatures: Dispatcher [employer] EDMS Owen Caceres PA PA Hal Sherman MD MD rn Marinas, Patrick, FLACO DUCT INSTALLER pm1 Masha Wong RN RN ld1 Maria Alejandra Paniagua RN RN
[2021-07-20 22:58] VITALS: BP 126/87; TEMP 97.6; O2SAT 100
== END 2021-07-20 17:21 | disposition home or self-care (01) ==
LOC: ER 14:04
DX: J02.9 Acute pharyngitis, unspecified (principal); Z20.822 Contact with and (suspected) exposure to COVID-19; F31.9 Bipolar disorder, unspecified; Z88.5 Allergy status to narcotic agent; Z88.8 Allergy status to other drugs, medicaments and biological substances
CPT/HCPCS: 87070; 87081; 0240U; 99283

== ENCOUNTER 2021-07-22 19:06 | Emergency (ER) | payer OTHER ==
--- OUTSIDE RECORDS SUMMARY | 2021-07-22 19:10 | XMS REPORT | Continuity of Care Document ---
:1995 Author Organization [facility] t Address [address] [place]. [address] [place] [id number] Care Team Providers Name Role Phone Asked, Pcp Primary Care Physician Unavailable Gume CHANCE Attending Clinician Chap[place]ito BUCHANAN S Attending Clinician Lluvia Rice Attending Clinician Geovani RIVERA Attending Clinician Unavailable Supa AREVALO, E Attending Clinician Singer FERNÁNDEZ Attending Clinician Geovani Barrera Admitting Clinician Unavailable Payers Payer Name Policy Type Policy Number Effective Date Expiration Date S ource HIM AMBETTER FROM [id number] 2020 [facility] 00:00:00 [employer] [place] [id number] 2019 00:00:00 Advance Directives Directive Decision Effective Termination Comments Source Date Date Healthcare Agents on N/A Univ ersity FileNameRelationshipHealthcare of [place] Agent Medical RelationshipCommunicationChSaint [facility] Healthcare TrevinioMotherHealth Care [phone] (Mobile)Pancho Williamswander Velascognificant OtherFirst Alternate [facility] [phone] (Mobile) [email or web address] Problems Condition Condition Condition Status Onset Resolution Last Treating Co mments Source Name Details Category Date Date Treatment Clinician Date Obesity Obesity Disease Active Univers (BMI (BMI 1-16 ity of 30-39.9) 30-39.9) 00:00: [place] 00 [facility] Urinary Urinary Disease Active Univers tract [...] nivers 5-23 ity of 00:00: [place] 00 [facility] Family Family Disease Active Univers history of history of 8-26 it y of spina spina 00:00: [place] bifida bifida 00 [facility] No known No known Disease Metho [...] 00 l of [place] codeine DA Active [place] 2018-0 [facility] [place] morphine DA Active U SWELLING 2018-0 [facility] 1-19 [facility] [place] codeine DA [place] nausea, 2018- [facility] headache 1-19 [facility] 00:[facility]: [facility] 00 [facility] [place] tramadol DA Active [place] 2017- [facility] 2-31 [facility] 00:[facility] 00 [facility] [place] tramadol DA Active [place] CHEST PAIN 2017- [facility] 2-31 [facility] 00:00: [...] Date Stop Date Source Natural mother Diabetes [facility] Natural mother Menstrual problems [facility] Social History Social Habit Start Date Stop Date Quantity Comments Source Exposure to Not sure [facility]-CoV-2 [facility] (event) [place] Tobacco use and 2020-12-31 2020-12-31 Never used Universit y of exposure 00:00:00 00:00:[address] [facility] Alcohol intake 2020-12-31 2020-12-31 Current [facility] 00:00:00 00:00:00 non-drinker of [facility] alcohol [place] (finding) Alcohol Comment 2016-04-28 2016-04-28 social, weekly Metho [facility] 00:00:00 00:00:00 Sex Ass[birth year] At [birth year] Universit y of 00:00:00 00:00:[address] [facility] Smoking Status Start Date Stop Date Source Never smoker [facility] Medications Ordered Filled Start Stop [...] 1 [place] tablet 00 :00 dose, [facility] Medical 1,000 mg 12/31/20 at Branch 0300, RODRICK ibuprofen Yes [id number] 800mg Take 1 U nivers 800 mg 12-31 tablet by ity of tablet 00:00: mouth [place] 00 every 8 Medical (eight) Branch hours as needed for Pain (scale 4-6). cyclobenzap Yes [id number] 10mg Take 1 Univers rine 10 mg [...] 1,000 mL 00 :00 IV Medical Infusion, [place] ONCE, 1 dose, [facility] 11/20/20 at 1530, STAT metoclopram No 10mg 10 mg, Uni vers dio HCl 11-20- Slow IV ity of (REGLAN) 20:15: 19:18 Push, [place] injection 00 :00 ONCE, 1 Medical 10 mg dose, [facility] 11/20/20 at 1515, RODRICK ketorolac 2020- No 30mg 30 mg, Unive rs (TORADOL) 11-20 Slow IV ity of injection 20:15: 19:18 Push, [place] 30 mg 00 :00 ONCE, 1 Medical dose, Wed Branch 11/20/20 at 1515, [facility] : JOHN RIVERA diphenhydrA 2020- No 25mg 25 mg, Uni vers MINE 11-20 Slow IV ity of (BENADRYL) 20:15: 20:15 Push, [place] injection 00 :00 ONCE, 1 Medical 25 mg dose, Wed Branch 11/20/20 at 1515, STAT butalbital- Yes 1{tbl} 1 tablet, Univers acetaminoph 11-20 Oral, ity of en-caff 18:12: Q4HPRN, [place] (ESGIC) 27 Starting Medical 50-325-40 Wed Branch mg tablet 1 11/20/20 at tablet 1312, Until Discontinu ed, Routine, zofran ketorolac 2020-0 Yes [id number] 10mg Take 1 Un carolann 10 mg 5-26 tablet by ity of tablet 00:00: mouth [place] 00 every 6 Medical (six) Branch hours as needed for Pain (scale 4-6). cyclobenzap 2020-0 Yes [id number] 10mg Take 1 Univers rine 10 mg 5-26 tablet by ity of tablet 00:00: mouth 3 [place] 00 (three) Medical times Branch daily. ketorolac 2020-0 Yes [id number] 10mg Take 1 Un carolann 10 mg 5-26 tablet by ity of tablet 00:00: mouth [place] 00 every 6 Medical (six) Branch hours as needed for Pain (scale 4-6). cyclobenzap 2020-0 Yes [id number] 10mg Take 1 Univers rine 10 mg 5-26 tablet by ity of tablet 00:00: mouth 3 [place] 00 (three) Medical times Branch daily. ketorolac 0 2020- No 30mg 30 mg, Unive rs (TORADOL) 09-27 04- Intramuscu ity of injection 03:45: 02:57 lar, ONCE, [place] 30 mg 00 :00 1 dose, Medical Elicia 4/1/21 Branch at 2245, RODRICK
Fa [facility] member approving Restricted medication : Tricia HERBERT [...] 09/26/20 Branch at 2245, RODRICK ondansetron Yes [id number] 4mg Take 1 Univers (ZOFRAN 4-01 tablet by ity of ODT) 4 mg 00:00: mouth [place] disintegrat 00 every 8 Medic al ing tablet (eight) Branch hours as needed for Nausea and Vomiting (N/V). ondansetron Yes [id number] 4mg Take 1 Univers (ZOFRAN 4-01 tablet by ity of ODT) 4 mg 00:00: mouth [place] disintegrat 00 every 8 Medic al ing tablet (eight) Branch hours as needed for Nausea and Vomiting (N/V). ondansetron Yes [id number] 4mg Take 1 Univers (ZOFRAN 4-01 tablet by ity of ODT) 4 mg 00:00: mouth [place] disintegrat 00 every 8 Medic al ing tablet (eight) Branch hours as needed for Nausea and Vomiting (N/V). proMETHazin 0 Yes [id number] 25mg Take 1 Univers e 25 mg 2-09 tablet by ity of tablet 00:00: mouth [place] 00 every 6 Medical (six) Branch hours as needed for Nausea and Vomiting (N/V). proMETHazin 2020-0 Yes [id number] 25mg Take 1 Univers e 25 mg 2-09 tablet by ity of tablet 00:00: mouth [place] 00 every 6 Medical (six) Branch hours as needed for Nausea and Vomiting (N/V). proMETHazin 2020-0 Yes [id number] 25mg Take 1 Univers e 25 mg [...] Name Name Td 2011-06-28 Completed University 00:00:[address] [facility] Td 2011-06-28 Completed University 00:00:[address] [facility] Td 2011-06-28 Completed University 00:00:00 [facility] [place] 2011-06-28 Completed [facility] 00:00:[address] [facility] Vital Signs Vital Name Observation Time Observation Value Comments Source Systolic blood 2020-12-31 06:49:00 125 mm[Hg] Univer sity [facility] Diastolic blood 2020-12-31 06:49:00 93 mm[Hg] Unive rsity [facility] Heart rate 2020-12-31 06:49:00 104 /min [facility] Body temperature 2020-12-31 06:49:00 36.83 [place] [facility] Respiratory rate 2020-12-31 06:49:00 15 /min [facility] Body height 2020-12-31 06:49:00 152.4 cm [facility] Body weight 2020-12-31 06:49:00 92.5 kg [facility] BMI 2020-12-31 06:49:00 39.83 kg/m2 [facility] Oxygen saturation in 2020-12-31 06:49:00 99 /min [facility] Arterial blood by [facility] Pulse oximetry Branch Systolic blood 2020-12-31 06:49:00 125 mm[Hg] Univer sity of [facility] Diastolic blood 2020-12-31 06:49:00 93 mm[Hg] Unive rsity of [facility] Heart rate 2020-12-31 06:49:00 104 /min [facility]i ty [facility] [place] [facility] Body temperature 2020-12-31 06:49:00 36.83 [place] Univ ersity [facility] [place] [facility] Respiratory rate 2020-12-31 06:49:00 15 /min Univ ersity [facility] [place] [facility] Body height 2020-12-31 06:49:00 152.4 cm [facility] [place] [facility] Body weight 2020-12-31 06:49:00 92.5 kg [facility] [place] [facility] BMI 2020-12-31 06:49:00 39.83 kg/m2 [facility] [place] [facility] Oxygen saturation in 2020-12-31 06:49:00 99 /min University of Arterial blood by [facility] Pulse oximetry Branch Systolic blood 2020-11-20 19:58:00 146 mm[Hg] Univer sity of pressure [place] [facility] Diastolic blood 2020-11-20 19:58:00 95 mm[Hg] Unive rsity of [facility] [place] [facility] Heart rate 2020-11-20 19:58:00 98 /min [facility]i ty [facility] [place] [facility] Body temperature 2020-11-20 19:58:00 37.17 [place] Univ [facility]ity [facility] [place] [facility] Respiratory rate 2020-11-20 19:58:00 17 /min Univ ersity [facility] [place] [facility] Oxygen saturation in 2020-11-20 19:58:00 100 /min University of Arterial blood by [facility] Pulse oximetry Branch Body weight 2020-11-20 16:43:00 92.534 kg [facility]i ty [facility] [place] [facility] BMI 2020-11-20 16:43:00 39.84 kg/m2 [facility] [place] [facility] Systolic blood 2020-11-20 19:58:00 146 mm[Hg] Univer sity of [facility] [place] [facility] Diastolic blood 2020-11-20 19:58:00 95 mm[Hg] Unive rsity of [facility] [place] [facility] Heart rate 2020-11-20 19:58:00 98 /min [facility]i ty [facility] [place] [facility] Body temperature 2020-11-20 19:58:00 37.17 [place] Univ [facility] [place] [facility] Respiratory rate 2020-11-20 19:58:00 17 /min Univ ersity [facility] [place] [facility] Oxygen saturation in 2020-11-20 19:58:00 100 /min University of Arterial blood by [facility] Pulse oximetry Branch Body weight 2020-11-20 16:43:00 92.534 kg [facility] [place] [facility] BMI 2020-11-20 16:43:00 39.84 kg/m2 [facility] [place] [facility] Body height 2020-09-26 23:49:00 152.4 cm [facility] [place] [facility] Body weight 2020-09-26 23:49:00 90.719 kg [facility] [place] [facility] BMI 2020-09-26 23:49:00 39.06 kg/m2 [facility] [place] [facility] Systolic blood 2020-09-26 23:45:00 103 mm[Hg] Univer sity of [facility] [place] [facility] Diastolic blood 2020-09-26 23:45:00 62 mm[Hg] Unive rsity of [facility] [place] [facility] [place] Heart rate 2020-09-26 23:45:00 107 /min [facility]i ty [facility] [place] [facility] [place] Body temperature 2020-09-26 23:45:00 36.61 [place] Univ [facility] [place] [facility] Respiratory rate 2020-09-26 23:45:00 18 /min Univ ersity [facility] [place] [facility] Oxygen saturation in 2020-09-26 23:45:00 97 /min University of Arterial blood by [facility] Pulse oximetry Branch Body height 2020-09-26 23:49:00 152.4 cm [facility] [place] [facility] Body weight 2020-09-26 23:49:00 90.719 kg [facility] [place] [facility] BMI 2020-09-26 23:49:00 39.06 kg/m2 [facility] [place] [facility] Systolic blood 2020-09-26 23:45:00 103 mm[Hg] Univer sity of [facility] [place] [facility] Diastolic blood 2020-09-26 23:45:00 62 mm[Hg] Unive rsity of [facility] [place] [facility] Heart rate 2020-09-26 23:45:00 107 /min [facility]i ty [facility] [place] [facility] Body temperature 2020-09-26 23:45:00 36.61 [place] Univ ersity [facility] [place] [facility] Respiratory rate 2020-09-26 23:45:00 18 /min Univ ersity [facility] [place] [facility] Oxygen saturation in 2020-09-26 23:45:00 97 /min University of Arterial blood by [facility] Pulse oximetry Branch Systolic blood 2020-07-17 14:00:00 112 mm[Hg] Univer sity of [facility] [place] [facility] Diastolic blood 2020-07-17 14:00:00 65 mm[Hg] Unive rsity of [facility] [place] [facility] Heart rate 2020-07-17 14:00:00 86 /min [facility]i ty [facility] [place] [facility] Respiratory rate 2020-07-17 14:00:00 20 /min Univ ersity [facility] [place] [facility] Oxygen saturation in 2020-07-17 14:00:00 100 /min University of Arterial blood by [facility] Pulse oximetry Branch Body temperature 2020-07-17 11:50:00 37.22 [place] [facility] ersity of [place] [facility] Body weight 2020-07-17 11:50:00 86.183 kg [facility]i ty [facility] [place] [facility] BMI 2020-07-17 11:50:00 37.11 kg/m2 [facility] [place] [facility] Systolic blood 2020-07-17 14:00:00 112 mm[Hg] Univer sity of [facility] [place] [facility] Diastolic blood 2020-07-17 14:00:00 65 mm[Hg] Unive rsity of [facility] [place] [facility] Heart rate 2020-07-17 14:00:00 86 /min [facility]i ty [facility] [place] [facility] Respiratory rate 2020-07-17 14:00:00 20 /min Univ ersity [facility] [place] [facility] Oxygen saturation in 2020-07-17 14:00:00 100 /min University of Arterial blood by [facility] Pulse oximetry Branch Body temperature 2020-07-17 11:50:00 37.22 [place] [facility] ersity of [place] [facility] Body weight 2020-07-17 11:50:00 86.183 kg [facility] [place] [facility] BMI 2020-07-17 11:50:00 37.11 kg/m2 [facility] [place] [facility] Procedures Procedure Date / Time Performed Performing Clinician Sour e RAPID STREP SCREEN FOR 2020-12-31 07:13:00 Akiko Dunaway [facility] GROUP A Medical Branch NOTICE OF PRIVACY 2020-12-31 06:34:54 Doctor Unassigned, No [facility] [place] [facility] Name Medical Branch CONSENT/REFUSAL FOR 2020-12-31 06:34:35 Doctor Unassigned, No [facility] [place] DIAGNOSIS AND Name Medical Branch TREATMENT CT HEAD WO CONTRAST 2020-11-20 18:18:22 John Rivera [facility] POCT TEST 2020-11-20 17:50:00 John Rivera [facility] BASIC METABOLIC PANEL 2020-11-20 17:24:00 John Rivera [facility] (NA, K, CL, CO2, Medical Branch GLUCOSE, BUN, CREATININE, CA) CBC WITH DIFF 2020-11-20 17:24:00 John Rivera [facility] CONSENT/REFUSAL FOR 2020-11-20 16:36:59 Doctor Unassigned, No Un iversity [facility] DIAGNOSIS AND Name [facility] TREATMENT POCT TEST 2020-09-27 02:56:00 Tricia Herbert [facility] ASSIGNMENT OF BENEFITS 2020-09-27 01:35:31 Doctor Unassigned, No [facility] CONSENT/REFUSAL FOR 2020-09-26 23:26:24 Doctor Unassigned, No [facility] [place] DIAGNOSIS AND Name [facility] TREATMENT URINALYSIS 2020-07-17 14:08:[address] [facility] POCT TEST 2020-07-17 14:08:00 Austin Cowart [facility] CBC WITH DIFF 2020-07-17 12:25:[address] [facility] NOTICE OF PRIVACY 2020-07-17 11:48:39 Doctor Unassigned, No [facility] [place] [facility] Medical [place] CONSENT/REFUSAL FOR 2020-07-17 11:44:41 Doctor Unassigned, No [facility] [place] DIAGNOSIS AND Name [facility] TREATMENT Plan of Care Planned Activity Planned Date Details Comments Source Future Scheduled Test Hepatitis C screening [facility] (procedure) [code = 244218296] Future Scheduled Test Screening for [facility] malignant neoplasm of cervix (procedure) [code = 672758942] Future Scheduled Test INFLUENZA VACCINE [facility] [code = INFLUENZA VACCINE] Future Scheduled Test COVID-19 VACCINE (1) [facility] [code = COVID-19 VACCINE (1)] Encounters Start End Encounter Admission Attending Care Care Encounter Source Date/Time Date/Time Type Type Clinicians Facility Department ID 2021-04-28 Emergency [facility] [id number] Univers 06:08:[address] [facility] 2021-04-27 Emergency [facility] [id number] Univers 21:27:31 ity [facility] 2021-04-27 Emergency [facility] [id number] Univers 10:13:[address] [facility] 2021-04-26 Emergency [facility] [id number] Univers 18:11:30 [facility] 2020-08-01 Inpatient [facility] [id number] [facility] 09:14:00 [id number] [facility] 2020-12-31 2020-12-31 [facility] [id number] Univers 02:02:00 03:26:00 Akiko Boody [id number] i ty of [place] 4.2.7.2.686 [facility] [id number] [address] 2020-12-31 2020-12-31 Emergency [facility] [id number] 02:02:00 03:26:00 Akiko Boody [id number] [place] 4.2.7.2.686 [place] [id number] [facility] 2020-11-20 2020-11-20 [facility] [id number] Univers 11:47:00 15:01:00 John S Boody [id number] i ty of [place] 4.2.7.2.686 [facility] [id number] [address] 2020-11-20 2020-11-20 Emergency [place], [facility] [id number] 11:47:00 15:01:00 John S Boody [id number] [place] 4.2.7.2.686 [place] [id number] [facility] 2020-09-26 2020-09-26 Emergency Tricia Herbert [facility] [id number] [facility] 18:51:00 22:39:00 Lluvia Mejia [id number] i ty [facility] 4.2.7.2.686 [facility] [id number] [address] 2020-09-26 2020-09-26 Emergency Tricia Herbert [facility] [id number] 18:51:00 22:39:00 Lluvia Mejia [id number] [place] 4.2.7.2.686 [place] [id number] 2020-08-06 2020-08-06 Emergency Kami RIVERA, [facility] ERT [id number] Univers 10:13:00 12:49:00 [facility] 2020-07-17 2020-07-17 Emergency Supa [place] Ravi [facility] 1.2.840 .[id number] [facility] 05:53:00 08:59:00 Dani Kauffman 350.1.13.10 ity [facility] 4.2.7.2.686 [facility] [id number] [address] 2020-07-17 2020-07-17 Emergency Austin Cowart Ravi [facility] 1.2.840 .114 [id number] 05:53:00 08:59:00 Kauffman, Dani Mejia [id number] [place] [address] [place] [address] [id number] Results Test Description Test Time Test Comments Results Result Comments Source RAPID STREP SCREEN FOR GROUP A 2020-12-31 07:59:00 Test Item Value Reference Range Interpretation Comme nts Streptococcus pyogenes (group A) antigen (test code = 53258- 2) Negative Negative Lab Interpretation (test code = 57234-2) Normal [facility] [id number] 18:21:18No acute findings. HISTORY:Head trauma, mod-severe hit left head, near syncope, persistentsevere headache and dizziness TECHNIQUE: Noncontrast head CT was performed. COMPARISON:None FINDINGS: The ventricles and sulci are appropriate for patient's age. There is no midline shift. The basal cisterns are preserved. No largevascular territory infarction, intracranial hemorrhage or mass effect isseen. The extracranial tissues demonstrate no acute findings. [facility], Radiant Results Inft User - 11/20/2020 1:22 PM CDT HISTORY:Head trauma, mod-severe hit left head, near syncope, persistentsevere headache and dizziness TECHNIQUE: Noncontrast head CT was performed.COMPARISON:NoneFINDINGS:The ventricles and sulci are appropriate for patient's age.There is no midline shift. The basal cisterns are preserved. No largevascular territory infarction, intracranial hemorrhage or mass effect isseen.The extracranial tissues demonstrate no acute findings.IMPRESSIONNo acute findings.[facility] METABOLIC PANEL (NA, K, CL, CO2, GLUCOSE, BUN, CREATININE, CA)2020-11-20 18:00:40 Test Item Value Reference Range Interpretation Comments NA (test code = 137 mmol/L 135-145 0956398773) K (test code = 4.2 mmol/L 3.5-5.0 4597325582) CL (test code = 104 mmol/L 98-108 7976812029) CO2 TOTAL (test code = 22 mmol/L 23-31 L 9566249519) AGAP (test code = 2-16 4675365722) BUN (test code = 10 mg/dL 7-23 3374927639) GLUCOSE (test code = 150 mg/dL 70-110 H 3578997001) CREATININE (test code = 0.59 mg/dL 0.50-1.04 0543717495) CALCIUM (test code = 9.5 mg/dL 8.6-10.6 4643655618) eGFR (test code = mL/min/1.73m2 9202441248) TOBI (test code = TOBI) Association of [...] tests). Lab Interpretation Abnormal (test code = 09274-9) [facility] [id number] 17:50:00 Test Item Value Reference Range Interpretation Comments POCT PREG (test code = 1605) negative On board controls acceptable with present C Line (test code = 3574) POCT PREG LOT # (test code = 3575) [id number] POCT PREG TEST DATE (test 05/27/2022 code = 3576) Lab Interpretation (test code = Normal 69249-9) [facility] WITH [id number] 17:32:17 Test Item Value Reference Range Interpretation Comments WBC (test code = See_Comment [Automated 8030-2) message] The sy stem which generated this result transmitted reference range : 4.30 - 11.10 10*3/?L. The reference range was not used to interpret this result as normal/abnormal . RBC (test code = See_Comment [Automated 575-3) message] The sy stem which generated this [...] RDW-SD (test code = 40.4 fL 39.0-49.9 07309-1) RDW-CV (test code = 13.0 % 12.0-15.5 788-0) PLT (test code = See_Comment H [Automated 777-3) message] The sy stem which generated this result transmitted reference range : 166 - 358 10*3/ ?L. The reference r shira was not used to interpret this result as normal/abnormal . MPV (test code = 9.5 fL 9.5-12.9 38459-1) NRBC/100 WBC (test See_Comment [Automat ed code = 2467653571) message] The system which generated this result transmitted reference range : 0.0 - 10.0 /100 WBCs. The refer ence range was not u sed to interpret th is result as normal/abnormal . NRBC x10^3 (test code <0.01 See_Comment [Auto mated = 7282367808) message] The s ystem which generated this result transmitted reference range : 10*3/?L. The reference range was not used to interpret this result as normal/abnormal . GRAN MAT (NEUT) % 83.0 % (test code = 770-8) IMM GRAN % (test code 0.70 % = 6420657359) LYMPH % (test code = 12.5 % 736-9) MONO % (test code = 3.7 % 5905-5) EOS % (test code = 0.0 % 713-8) BASO % (test code = 0.1 % 706-2) GRAN MAT x10^3(ANC) 8.41 10*3/uL 1.88-7.09 H (test code = 5752344766) IMM GRAN x10^3 (test 0.07 10*3/uL 0.00-0.06 H code = 0504081889) LYMPH x10^3 (test code 1.26 10*3/uL 1.32-3.29 L = 731-0) MONO x10^3 (test code 0.37 10*3/uL 0.33-0.92 = 742-7) EOS x10^3 (test code = <0.03 0.03-0.39 L 711-2) BASO x10^3 (test code <0.03 0.01-0.07 = 704-7) Lab Interpretation Abnormal (test code = 69927-2) [facility] [id number] 02:56:00 Test Item Value Reference Range Interpretation Comments POCT PREG (test code = 1605) negative On board controls acceptable with present C Line (test code = 3574) POCT PREG LOT # (test code = 3575) [id number] POCT PREG TEST DATE (test 02/25/2022 code = 3576) Lab Interpretation (test code = Normal 17597-4) [facility] DNA BY [id number] 14:24:00 Test Item Value Reference Range Interpretation Comments C. TRACHOMATIS DNA BY Negative Negative PCR (test code = CHLAMTDNA) N. GONORRHOEAE DNA BY Negative Negative Perfor med At: ST PCR (test code = [facility] James NGONORDNA) [id number] [facility] [place] [id number] Rodrigues MD Ph:[phone] - DUP AB/PEL/SC/[id number] 14:12:00 [facility] [facility] : 1995 Sex: F Patient Name: FATMATA DEGROOT Unit No: [id number] EXAMS: CPT CODE: [id number] DUP AB/PEL/SC/LTD 74066 PELVIC ULTRASOUND, 08/01/2020: COMPARISON: CT pelvis dated [...] Orig Print D/T: S: 08/01/2020 (1415) [facility] NAME: DEGROOT,FATMATA Radiology DepartmentPHYS: Winter Landaverde MD [address] : 1995 AGE: 24 SEX: F [place] [address] LOC: F.ERS PHONE #: [phone] EXAM DATE: 08/01/2020 STATUS: REG ER FAX #: [phone] RAD NO: Page 1 Signed Report Patient Name: FATMATA DEGROOT Unit No: [id number] EXAMS: CPT CODE: [id number] DUP AB/PEL/SC/LTD 56640 <Continued> [facility] NAME: DEGROOT,FATMATA Radiology Department PHYS: Winter Landaverde MD [address] : 1995 AGE: 24 SEX: F [place] [address] LOC: SANDY PHONE #: [phone] DATE: 08/01/2020 STATUS: BALTAZAR LOVE FAX #: [phone] RAD NO: Page 2 Signed Report- US TRANSVAGINAL [id number] 14:12:00[facility] : 1995 Sex: F Patient Name: FATMATA DEGROOT Unit No: [id number] EXAMS: CPT CODE: [id number] US TRANSVAGINAL W/PELVIS 24082 PELVIC ULTRASOUND, 08/01/2020: COMPARISON: CT pelvis dated [...] Austin Barrera Technologist: Alexandra Elder RDMS Probe: [id number] Trnscrbd D/ (1412) LuisR.[email or web address] Orig Print D/T: S: 08/01/2020 (1415) [facility] NAME: FATMATA DEGROOT Radiology DepartmentPHYS: ELLISSalimaWinter Ortiz MD [address] : 1995 AGE: 24 SEX: F [place] [address] LOC: Saran.ERS PHONE #: [phone] EXAM DATE: 08/01/2020 STATUS: REG ER FAX #: [phone] RAD NO: Page 1 Signed Report Patient Name: FATMATA DEGROOT Unit No: [id number] EXAMS: CPT CODE: [id number] US TRANSVAGINAL W/PELVIS 57762 <Continued> [facility] NAME: DEGROOT,FATMATA Radiology Department PHYS: Jay Winter Wilkins MD [address] : 1995 AGE: 24 SEX: F [place], [place] [address] LOC: F.ERS PHONE #: [phone] DATE: 08/01/2020 STATUS: REG ER FAX #: [phone] RAD NO: Page 2 Signed Report- US PELVIS [id number] 14:12:00[facility] : 1995 Sex: F Patient Name: FATMATA DEGROOT Unit No: [id number] EXAMS: CPT CODE: [id number] US PELVIS COMPLETE 57919 PELVIC ULTRASOUND, 08/01/2020: COMPARISON: CT pelvis dated [...] Orig Print D/T: S: 08/01/2020 (1415) [facility] NAME: FATMATA DEGROOT Radiology DepartmentPHYS: Winter Landaverde MD [address] : 1995 AGE: 24 SEX: F [place], [place] [address] LOC: ShaylaERS PHONE #: [phone] EXAM DATE: 08/01/2020 STATUS: REG ER FAX #: [phone] RAD NO: Page 1 Signed Report Patient Name: FATMATA DEGROOT Unit No: [id number] EXAMS: CPT CODE: [id number] US PELVIS COMPLETE 29134 <Continued> [facility] NAME: FATMATA DEGROOT Radiology Department PHYS: Winter Landaverde MD [address] : 1995 AGE: 24 SEX: F [place], [place] [address] LOC: SANDY PHONE #: [phone] DATE: 08/01/2020 STATUS: BALTAZAR LOVE FAX #: [phone] RAD NO: Page 2 Signed Report- CT ABD PELVIS W/O [id number] 10:58:00[facility] : 1995 Sex: F Patient Name: FATMATA DEGROOT Unit No: [id number] EXAMS: CPT CODE: [id number] CT ABD PELVIS W/O CONT 26810 CT ABDOMEN/CT STONE SURVEY WITHOUT CONTRAST, 08/01/2020 [...] mm right middle lobe pulmonary nodule. [facility] NAME: FATMATA DEGROOT Radiology Department PHYS: Winter Landaverde MD [address] : 1995 AGE: 24 SEX: F [place] [address] LOC: Saran.ERS PHONE #: [phone] EXAM DATE: 08/01/2020 STATUS: REG ER FAX #:[phone] RAD NO: Page 1 Signed Report 1 Patient Name: FATMATA DEGROOT Unit No: [id number] EXAMS: CPT CODE: [id number] CT ABD PELVIS W/O CONT 33767 <Continued> CT PELVIS WITHOUT CONTRAST: No opaque [...] Joe Agudelo MD CC: Winter Mccollum MD; [facility] Technologist: Art Church, RT, CT CTDI: 13.28 DLP: 653.43 Trnscrbd D/ (1058) t.[email or web address].AJ13 [facility] NAME: DEGROOTFATMATA Radiology Department PHYS: Winter Landaverde MD [address] : 1995 AGE: 24 SEX: F [place], [place] [address] LOC: Saran.ERS PHONE #: [phone] EXAM DATE: 08/01/2020 STATUS: REG ER FAX #: [phone] RAD NO: Page 2 Signed Report 1 Patient Name: FATMATA DEGROOT Unit No: [id number] EXAMS: CPT CODE: [id number] CT ABD PELVIS W/O CONT 58147 <Continued> Orig Print D/T: S: 08/01/2020 (1101) [facility] NAME: FATMATA DEGROOT Radiology Department PHYS: Winter Landaverde MD [address] : 1995 AGE: 24 SEX: F [place], [place] [address] LOC: SANDY PHONE #: [phone] EXAM DATE: 08/01/2020 STATUS: REG ER FAX #: [phone] RAD NO: Page 3 Signed Report 1UA RFLX MICR CULT IF [id number] 10:04:00 Test Item Value Reference Range Interpretation [...] culture: Suprapubic PainSpecimen Description: CLEAN CATCHUR HCG [id number] 10:04:00 Test Item Value Reference Range Interpretation [...] Description: CLEAN CATCHUA RFLX MICR CULT IF [id number] 10:03:00 Test Item Value Reference Range Interpretation [...] culture: Suprapubic PainSpecimen Description: CLEAN CATCHUR HCG [id number] 10:03:00 Test Item Value Reference Range Interpretation Comments UR HCG QUAL (test code = HCGQLU) Indication for culture: Suprapubic PainSpecimen Description: CLEAN CATCH [id number] 14:39:00 Test Item Value Reference Range Interpretation Comments APPEARANCE (test code = Hazy Clear A 8909703637) COLOR (test code = Yellow Yellow 4857052544) PH (test code = 4.8-8.0 8742026823) SP GRAVITY (test code = 1.003-1.030 7377571981) GLU U QUAL (test code = Normal Normal 2661221618) BLOOD (test code = Negative Negative INTERFERE NCE FROM 7226485994) ASCORBIC ACID M AY CAUSE FALSE NEG ATIVE RESULT KETONES (test code = Negative Negative 1641917996) PROTEIN (test code = Negative Negative 2887-8) UROBILIN (test code = Normal Normal 5987114281) BILIRUBIN (test code = Negative Negative 2404114307) NITRITE (test code = Negative Negative 3929696240) LEUK SILVINO (test code = Negative Negative 3285115925) RBC/HPF (test code = See_Comment [Autom ated message] 1278414562) The system [employer] generated this result transmitted ref erence range: 0 - 3 HP F. The reference range was not used to int erpret this result as normal/abnormal . WBC/HPF (test code = <1 See_Comment [Autom ated message] 3623907410) The system [employer] generated this result transmitted ref erence range: 0 - 5 HP F. The reference range was not used to int erpret this result as normal/abnormal . BACTERIA (test code = Few Negative A 2650608949) MUCOUS (test code = Slight Negative LPF A 3743829357) SQ EPITH (test code = HPF 9430682743) Lab Interpretation (test Abnormal code = 26889-0) [id number] 14:08:00 Test Item Value Reference Range Interpretation Comments POCT PREG (test code = 1605) negative On board controls acceptable with present C Line (test code = 3574) POCT PREG LOT # (test code = 3575) [id number] POCT PREG TEST DATE (test 2022-02-25 code = 3576) Lab Interpretation (test code = Normal 44378-0) [facility] WITH [id number] 12:41:00 Test Item Value Reference Range Interpretation Comments WBC (test code = See_Comment [Automated 2990-2) message] The sy stem which generated this [...] RDW-SD (test code = 40.8 fL 39-49.9 02690-1) RDW-CV (test code = 13.0 % 12-15.5 788-0) PLT (test code = See_Comment H [Automated 777-3) message] The sy stem which generated this result transmitted reference range : 166 - 358 10*3/ ?L. The reference r shira was not used to interpret this result as normal/abnormal . MPV (test code = 9.5 fL 9.5-12.9 82642-8) NRBC/100 WBC (test See_Comment [Automat ed code = 4177433846) message] The system which generated this result transmitted reference range : 0.0 - 10.0 /100 WBCs. The refer ence range was not u sed to interpret th is result as normal/abnormal . NRBC x10^3 (test code <0.01 See_Comment [Auto mated = 6402764607) message] The s ystem which generated this result transmitted reference range : 10*3/?L. The reference range was not used to interpret this result as normal/abnormal . GRAN MAT (NEUT) % 49.7 % (test code = 770-8) IMM GRAN % (test code 0.40 % = 7905473456) LYMPH % (test code = 37.6 % 736-9) MONO % (test code = 6.3 % 5905-5) EOS % (test code = 5.4 % 713-8) BASO % (test code = 0.6 % 706-2) GRAN MAT x10^3(ANC) 4.65 10*3/uL 1.88-7.09 (test code = 8287754729) IMM GRAN x10^3 (test 0.04 10*3/uL 0-0.06 code = 4578922273) LYMPH x10^3 (test code 3.52 10*3/uL 1.32-3.29 H = 731-0) MONO x10^3 (test code 0.59 10*3/uL 0.33-0.92 = 742-7) EOS x10^3 (test code = 0.51 10*3/uL 0.03-0.39 H 711-2) BASO x10^3 (test code 0.06 10*3/uL 0.01-0.07 = 704-7) Lab Interpretation Abnormal (test code = 48980-4) [facility] W/AUTO [id number] 07:27:00 Test Item Value Reference Range Interpretation [...] NORMAL code = PLTMR) AG HEPATITIS B [id number] 04:15:00 Test Item Value Reference Range Interpretation Comments AG HEPATITIS B SURFACE (test code NONREACTIVE NONREACTIVE = HBSAG) AB HEPATITIS C [id number] 04:15:00 Test Item Value Reference Range Interpretation Comments AB HEPATITIS C (test code = NONREACTIVE NONREACTIVE HCVAB) SIGNAL TO CUTOFF (test code = 0.13 <0.80 N CUTOFF) RUBELLA [id number] 04:15:00 Test Item Value Reference Range Interpretation Comments RUBELLA SCREEN 70.2 IUnit/ml Results >10. 0IUnits/ml (test code = are considered positive RUBSC) inaccordance wi th the CLSI guidelines and based on the WH [employer] S tandard for Anti-Rubell a serum as anindicator of immune status and a br eakpoint to detect mostseropositiv e persons. AB [id number] 04:15:00 Test Item Value Reference Range Interpretation Comments AB TREPONEMA (test code = TREPAB) NONREACTIVE NONREACTIVE AG HEPATITIS B [id number] 04:00:00 Test Item Value Reference Range Interpretation Comments AG HEPATITIS B SURFACE (test code NONREACTIVE NONREACTIVE = HBSAG) AB HEPATITIS C [id number] 04:00:00 Test Item Value Reference Range Interpretation Comments AB HEPATITIS C (test code = HCVAB) NONREACTIVE SIGNAL TO CUTOFF (test code = CUTOFF) <0.80 RUBELLA [id number] 04:00:00 Test Item Value Reference Range Interpretation Comments RUBELLA SCREEN 70.2 IUnit/ml Results >10. 0IUnits/ml (test code = are considered positive RUBSC) inaccordance wi th the CLSI guidelines and based on the O International S tandard for Anti-Rubell a serum as anindicator of immune status and a br eakpoint to detect mostseropositiv e persons. AB [id number] 04:00:00 Test Item Value Reference Range Interpretation Comments AB TREPONEMA (test code = TREPAB) NONREACTIVE NONREACTIVE CBC W/AUTO [id number] 00:36:00 Test Item Value Reference Range Interpretation [...]
[2021-07-22] MEDS ORDERED: NA CHLORIDE 0.9% 1,000 ML ONE (19:41)
[2021-07-22] MEDS ORDERED: ONDANSETRON 4 MG/2 ML VIAL ONE (19:41)
[2021-07-22] MEDS ORDERED: KETOROLAC 30 MG/ML INJ ONE (19:58)
[2021-07-22] MEDS ORDERED: MAGNESIUM SULFATE 1 gm IVPB 1 GM/100 ML BAG IV ONE (19:58)
[2021-07-22] MEDS ORDERED: TAMSULOSIN 0.4 MG SR CAP ONE (19:58)
[2021-07-22 20:08] LABS: Hematocrit 41.7 % (36.0-45.0); Lymphocytes % 35.5 % (15.3-44.8); MPV 7.6 fL (7.6-11.3); RBC Red Blood Cell Count 4.71 M/uL (3.86-4.86)
[2021-07-22 20:11] LABS: Urine Blood Trace-lysed (Negative); Urine Glucose Negative (Negative); Urine Protein Negative (Negative)
[2021-07-22 20:50] LABS: SARS-COV-2 RT PCR NEGATIVE (NEGATIVE)
[2021-07-22 22:01] LABS: ALT/SGPT 23 U/L (12-78); AST/SGOT 5 U/L (15-37); Albumin 3.7 g/dL (3.4-5.0); Alkaline Phosphatase 72 U/L (45-117); BUN Blood Urea Nitrogen 9 mg/dL (7-18); Bicarbonate 25 mmol/L (21-32); Bilirubin Direct < 0.1 mg/dL (0-0.2); Bilirubin Total 0.2 mg/dL (0.2-1.0); Glucose Level 96 mg/dL (74-106); Lipase 77 U/L (73-393); Protein, Total 7.7 g/dL (6.4-8.2); Sodium Level 136 mmol/L (136-145)
--- NOTE | 2021-07-22 22:06 | EDPHYS ---
Physician Documentation [facility] Name: Carla Duncan Age: 25 yrs Sex: Female : 1995 Arrival Date: 07/22/2021 Time: 19:10 Bed 12 Private MD: ED Physician Hal Watters HPI: 07/22 21:07 This 25 yrs old Female presents to ER via Ambulatory with complaints of kb Vomiting, Diarrhea, leg cramping. 21:07 The patient presents to the emergency department with nausea, vomiting, diarrhea. kb Onset: The symptoms/episode began/occurred 1 week(s) ago. Possible causes: unknown. The symptoms are aggravated by nothing. The symptoms are alleviated by nothing. Associated signs and symptoms: Pertinent positives: diarrhea, nausea, vomiting, Pertinent negatives: fever. Severity of symptoms: At their worst the symptoms were moderate in the emergency department the symptoms are unchanged. The patient has not experienced similar symptoms in the past. The patient has been recently seen by a physician:. Pt reports nausea and vomiting for 7 days. Started with constipation at onset of n/v, now has diarrhea. 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 - Social history:: Smoking status: Reported history of juuling and/or vaping. ROS: 21:07 Constitutional: Negative for fever, chills, and weight loss. kb 21:07 Abdomen/GI: Positive for nausea, vomiting, and diarrhea, abdominal cramps, Negative for abdominal pain. 21:07 All other systems are negative. Exam: 21:07 Constitutional: This is a well developed, well nourished patient who is awake, alert, kb and in no acute distress. Head/Face: Normocephalic, atraumatic. ENT: Moist Mucous membranes Cardiovascular: Regular rate and rhythm with a normal S1 and S2. No gallops, murmurs, or rubs. No pulse deficits. Respiratory: Respirations even and unlabored. No increased work of breathing. Talking in full sentences Abdomen/GI: Soft, non-tender. No distention Skin: Warm, dry with normal turgor. Normal color. MS/ Extremity: Pulses equal, no cyanosis. Neurovascular intact. Full, normal range of motion. Neuro: Awake and alert, GCS 15, oriented to person, place, time, and situation. Moves all extremities. Normal gait. Psych: Awake, alert, with orientation to person, place and time. Behavior, mood, and affect are within normal limits. Vital Signs: 19:23 BP 113 / 77; Pulse 92; Resp 16; Temp 98.7(O); Pulse Ox 100% on R/A; Weight 90.72 kg ll3 (R); Height 5 ft. 0 in. (152.40 cm) (R); Pain 8/10; 21:35 BP 114 / 74; Pulse 88; Resp 16; Temp 98.2; Pulse Ox 98% on R/A; ab2 23:05 BP 116 / 73; Pulse 84; Resp 16 S; Pulse Ox 98% on R/A; bb 19:23 Body Mass Index 39.06 (90.72 kg, 152.40 cm) ll3 MDM: 19:28 Patient medically screened. kb 21:08 Data reviewed: vital signs, nurses notes. Data interpreted: Pulse oximetry: on room air kb is 100 %. Interpretation: normal. 22:05 Counseling: I had a detailed discussion with the patient and/or guardian regarding: the kb historical points, exam findings, and any diagnostic results supporting the discharge/admit diagnosis, lab results, the need for outpatient follow up, a family practitioner, to return to the emergency department if symptoms worsen or persist or if there are any questions or concerns that arise at home. 07/22 19:37 Order name: Basic Metabolic Panel kb 07/22 19:37 Order name: CBC with Diff; Complete Time: 20:19 kb 07/22 19:37 Order name: Hepatic Function; Complete Time: 22:04 kb 07/22 19:37 Order name: Lipase; Complete Time: 22:04 kb 07/22 19:37 Order name: COVID-19/FLU A+B (Document "Date of Onset" if Symptomatic); Complete Time: kb 20:52 07/22 19:38 Order name: Basic Metabolic Panel; Complete Time: 22:04 EDMS 07/22 19:37 Order name: IV Saline Lock; Complete Time: 19:46 kb 07/22 19:37 Order name: Labs collected and sent; Complete Time: 19:46 kb 07/22 19:56 Order name: Urine Dipstick-Ancillary (obtain specimen); Complete Time: 20:11 kb 07/22 20:11 Order name: Urine Dipstick-Ancillary; Complete Time: 20:19 EDMS Administered Medications: 19:46 Drug: NS 0.9% 1000 ml Route: IV; Rate: 1000 ml; Site: right antecubital; ab2 20:46 Follow up: Response: No adverse reaction; IV Status: Completed infusion ab2 19:46 Drug: Zofran (Ondansetron) 4 mg Route: IVP; Site: right antecubital; ab2 20:46 Follow up: Response: No adverse reaction ab2 Disposition: 07/23 00:42 Co-signature as Attending Physician, Hal Watters MD. rn Disposition Summary: 07/22/21 22:05 Discharge Ordered Location: Home kb Condition: Stable kb Diagnosis - Nausea with vomiting, unspecified kb - Diarrhea, unspecified kb Followup: kb - With: Emergency Department - When: As needed - Reason: Worsening of condition Followup: kb - With: Private Physician - When: 2 - 3 days - Reason: Recheck today's complaints, Continuance of care, Re-evaluation by your physician Discharge Instructions: - Discharge Summary Sheet kb - Food Choices to Help Relieve Diarrhea, Adult kb - Viral Gastroenteritis, Adult, [id number] kb Forms: - Medication Reconciliation Form kb - Thank You Letter kb - Antibiotic Education kb - Prescription Opioid Use kb Prescriptions: - Zofran 4 mg Oral Tablet - take 1 tablet by ORAL route every 6 hours As needed; 20 tablet; Refills: 0, kb Product Selection Permitted - dicyclomine 20 mg Oral Tablet - take 1 tablet by ORAL route 4 times per day As needed; 20 tablet; Refills: 0, kb Product Selection Permitted Signatures: Dispatcher [employer] EDMS Francie Maynard, FUR DRUMMER-C FUR DRUMMER-Hal Newell MD MD rn Loubet, Lynsea, RN RN ll3 Donis Seaman ab2
--- NOTE | 2021-07-22 22:06 | ER ---
Nurse's Notes [facility] [place] Name: Carla Duncan Age: 25 yrs Sex: Female : 1995 Arrival Date: 07/22/2021 Time: 19:10 Bed 12 Private MD: Diagnosis: Nausea with vomiting, unspecified;Diarrhea, unspecified Presentation: 07/22 19:23 Chief complaint: Patient states: Vomiting since last Wednesday, had constipation last llWednesday- Wednesday and since the she has had loose stools. Coronavirus screen: Client presents with at least one sign or symptom that may indicate coronavirus-19. Standard/surgical mask placed on the client. Ebola Screen: No symptoms or risks identified at this time. Initial Sepsis Screen: Does the patient meet any 2 criteria? No. Patient's initial sepsis screen is negative. Does the patient have a suspected source of infection? No. Patient's initial sepsis screen is negative. Risk Assessment: Do you want to hurt yourself or someone else? Patient reports no desire to harm self or others. Onset of symptoms was July 15, 2021. Care prior to arrival: None. 19:23 Method Of Arrival: Ambulatory ll3 19:23 Acuity: VENKATESH 3 ll3 Triage Assessment: 19:26 General: Appears in no apparent distress. uncomfortable, Behavior is calm, cooperative. ll3 Pain: Complains of pain in right upper quadrant, left upper quadrant, right lower quadrant and left lower quadrant. Neuro: Level of Consciousness is awake, alert, obeys commands, Oriented to person, place, time, situation, Reports dizziness, After throwing up the rooms spins headache weakness. Cardiovascular: Patient's skin is warm and dry. Respiratory: Respiratory effort is even, unlabored, Respiratory pattern is regular, symmetrical. GI: Bowel sounds present X 4 quads. Abd is soft and non tender X 4 quads. Reports lower abdominal pain, upper abdominal pain, constipation, cramping, diarrhea, intolerance of fluids, intolerance of food, nausea, vomiting, since 07/15/21. Derm: Skin is pink, warm \\T\\ dry. 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 - Social history:: Smoking status: Reported history of juuling and/or vaping. Screenin:06 Abuse screen: Denies threats or abuse. Nutritional screening: No deficits noted. bb Tuberculosis screening: No symptoms or risk factors identified. Fall Risk None identified. Assessment: 23:05 Reassessment: Patient is alert, oriented x 3, equal unlabored respirations, skin bb warm/dry/pink. pt seen by this RN at discharge pt verbalized understanding of and agrees to plan of care discharge instructions given pt ambulated with steady gait to exit. Vital Signs: 19:23 BP 113 / 77; Pulse 92; Resp 16; Temp 98.7(O); Pulse Ox 100% on R/A; Weight 90.72 kg ll3 (R); Height 5 ft. 0 in. (152.40 cm) (R); Pain 8/10; 21:35 BP 114 / 74; Pulse 88; Resp 16; Temp 98.2; Pulse Ox 98% on R/A; ab2 23:05 BP 116 / 73; Pulse 84; Resp 16 S; Pulse Ox 98% on R/A; bb 19:23 Body Mass Index 39.06 (90.72 kg, 152.40 cm) ll3 ED Course: 19:10 Patient arrived in ED. es 19:26 Triage completed. ll3 19:26 Arm band placed on. ll3 19:28 Francie Maynard FNP-C is [facility]. kb 19:28 Hal Watters MD is Attending Physician. kb 19:37 Donis Seaman is Primary Nurse. ab2 19:48 Basic Metabolic Panel Sent. ab2 19:48 CBC with Diff Sent. ab2 19:48 Hepatic Function Sent. ab2 19:48 Lipase Sent. ab2 20:02 COVID-19/FLU A+B (Document "Date of Onset" if Symptomatic) Sent. ab2 23:06 Patient has correct armband on for positive identification. bb 23:06 No provider procedures requiring assistance completed. IV discontinued, intact, bb bleeding controlled, No redness/swelling at site. Pressure dressing applied. Administered Medications: 19:46 Drug: NS 0.9% 1000 ml Route: IV; Rate: 1000 ml; Site: right antecubital; ab2 20:46 Follow up: Response: No adverse reaction; IV Status: Completed infusion ab2 19:46 Drug: Zofran (Ondansetron) 4 mg Route: IVP; Site: right antecubital; ab2 20:46 Follow up: Response: No adverse reaction ab2 Outcome: 22:05 Discharge ordered by . ariel 23:06 Discharged to home ambulatory. bb 23:06 Condition: stable 23:06 Discharge instructions given to patient, Instructed on discharge instructions, the need for admit, medication usage, Demonstrated understanding of instructions, follow-up care, medications, Prescriptions given X 2. 23:06 Patient left the ED. bb Signatures: Francie Maynard, VARNISH THINNER-C VARNISH THINNER-Randalb Angelica Herrera Brenda, RN RN bb Yessy Kraus RN RN ll3 Donis Seaman ab2
[2021-07-22 23:12] VITALS: TEMP 98.7
[2021-07-22 23:13] VITALS: BP 116/73; O2SAT 98
== END 2021-07-22 23:06 | disposition home or self-care (01) ==
LOC: ER 19:06
DX: R19.7 Diarrhea, unspecified (principal); Z20.822 Contact with and (suspected) exposure to COVID-19; F31.9 Bipolar disorder, unspecified; Z88.5 Allergy status to narcotic agent; Z88.8 Allergy status to other drugs, medicaments and biological substances
CPT/HCPCS: 85025; 80048; 36415; 80076; 81003; 83690; 0240U; J3475; J7030; J2405; 96361; 96374; 99283

== ENCOUNTER 2021-08-11 12:46 | Emergency (ER) | payer OTHER ==
--- OUTSIDE RECORDS SUMMARY | 2021-08-11 12:51 | XMS REPORT | Continuity of Care Document ---
:1995 Author Organization [facility] t Address [address] [place]. [address] [place] [address] Care Team Providers Name Role Phone Asked, Pcp Primary Care Physician Unavailable Gume CHANCE Attending Clinician [place] BUCHANAN S Attending Clinician Lluvia Rice Attending Clinician Geovani RIVERA Attending Clinician Unavailable Supa AREVALO, E Attending Clinician Singer FERNÁNDEZ Attending Clinician Geovani Barrera Admitting Clinician Unavailable Payers Payer Name Policy Type Policy Number Effective Date Expiration Date S ource HIM AMBETTER FROM [id number] 2020 [facility] 00:00:00 [place] [id number] 2019 00:00:00 Advance Directives Directive Decision Effective Termination Comments Source Date Date Healthcare Agents on N/A Univ ersity FileNameRelationshipHealthcare of [place] Agent Medical RelationshipCommunicationChBayhealth Emergency Center, [facility] TrevinioMotherHealth Care [phone] (Mobile)Pancho Williamswander Velascognificant OtherFirst [facility] [phone] (Mobile) [email or web address] Problems Condition Condition Condition Status Onset Resolution Last Treating Co mments Source Name Details Category Date Date Treatment Clinician Date Obesity Obesity Disease Active Univers (BMI (BMI 1-16 ity of 30-39.9) 30-39.9) 00:00: [place] 00 [facility] Branch Urinary Urinary Disease Active Univers tract [...] nivers 5-23 ity of 00:00: [place] 00 [facility] Family Family Disease Active Univers history of history of 8-26 it y of spina spina 00:00: [place] bifida bifida 00 [facility] No known No known Disease Metho [...] 00 l of [place] codeine DA Active [place] 2018-0 [facility] [place] morphine DA Active U SWELLING 2018-0 [facility] 1-19 [facility] 00:[facility] [place] codeine DA Active [place] nausea, 2018- [facility] headache 1-19 [facility] 00:00: [facility] 00 [facility] [place] tramadol DA Active [place] 2017- [facility] 2-31 [facility] 00:[facility]: [facility] 00 [facility] [place] tramadol DA Active [place] CHEST PAIN 2017- [facility] 2-31 Woman's 00:00: [...] Date Stop Date Source Natural mother Diabetes [facility] Natural mother Menstrual problems [facility] Social History Social Habit Start Date Stop Date Quantity Comments Source Exposure to Not sure [facility] [place] [facility]-CoV-2 [facility] (event) [place] Tobacco use and 2020-12-31 2020-12-31 Never used Universit y of exposure 00:00:00 00:00:00 [facility] Alcohol intake 2020-12-31 2020-12-31 Current [facility] 00:00:00 00:00:00 non-drinker of [facility] alcohol [place] (finding) Alcohol Comment 2016-04-28 2016-04-28 social, weekly Metho [facility] 00:00:00 00:00:00 Sex [birth year] Universit y of 00:00:00 00:00:00 [facility] [place] [facility] Smoking Status Start Date Stop Date Source Never smoker [facility] Medications Ordered Filled Start Stop [...] NOW, 1 [place] tablet 00 :00 dose, [facility] 1,000 mg 12/31/20 at Branch 0300, RODRICK ibuprofen Yes [id number] 800mg Take 1 U nivers 800 mg 12-31 tablet by ity of tablet 00:00: mouth [place] 00 every 8 Medical (eight) Branch hours as needed for Pain (scale 4-6). cyclobenzap Yes [id number] 10mg Take 1 Univers rine 10 mg [...] 1,000 mL 00 :00 IV Medical Infusion, [place] ONCE, 1 dose, [facility] 11/20/20 at 1530, STAT metoclopram No 10mg 10 mg, Uni vers dio HCl 11-20- Slow IV ity of (REGLAN) 20:15: 19:18 Push, [place] injection 00 :00 ONCE, 1 Medical 10 mg dose, [facility] 11/20/20 at 1515, RODRICK ketorolac 2020- No 30mg 30 mg, Unive rs (TORADOL) 11-20 Slow IV ity of injection 20:15: 19:18 Push, [place] 30 mg 00 :00 ONCE, 1 Medical dose, Wed Branch 11/20/20 at 1515, RODRICK
[facility] Restricted medication : JOHN RIVERA diphenhydrA 2020- No 25mg 25 mg, Uni vers MINE 11-20 Slow IV ity of (BENADRYL) 20:15: 20:15 Push, [place] injection 00 :00 ONCE, 1 Medical 25 mg dose, Wed Branch 11/20/20 at 1515, STAT butalbital- Yes 1{tbl} 1 tablet, Univers acetaminoph 11-20 Oral, ity of en-caff 18:12: Q4HPRN, [place] (ESGIC) 27 Starting Medical 50-325-40 Wed Branch mg tablet 1 11/20/20 at tablet 1312, Until Discontinu ed, Routine, zofran ketorolac 2020-0 Yes [id number] 10mg Take 1 Un carolann 10 mg 5-26 tablet by ity of tablet 00:00: mouth [place] 00 every 6 Medical (six) Branch hours as needed for Pain (scale 4-6). cyclobenzap 2020-0 Yes [id number] 10mg Take 1 Univers rine 10 mg 5-26 tablet by ity of tablet 00:00: mouth 3 [place] 00 (three) Medical times Branch daily. ketorolac 2020-0 Yes [id number] 10mg Take 1 Un carolann 10 mg 5-26 tablet by ity of tablet 00:00: mouth [place] 00 every 6 Medical (six) Branch hours as needed for Pain (scale 4-6). cyclobenzap 2020-0 Yes [id number] 10mg Take 1 Univers rine 10 mg 5-26 tablet by ity of tablet 00:00: mouth 3 [place] 00 (three) Medical times Branch daily. ketorolac 0 2020- No 30mg 30 mg, Unive rs (TORADOL) 09-27 04- Intramuscu ity of injection 03:45: 02:57 lar, ONCE, [place] 30 mg 00 :00 1 dose, Medical Elicia 4/1/21 Branch at 2245, RODRICK
Fa [facility] member approving Restricted medication : Tricia HERBERT [...] 09/26/20 Branch at 2245, RODRICK ondansetron Yes [id number] 4mg Take 1 Univers (ZOFRAN 4-01 tablet by ity of ODT) 4 mg 00:00: mouth [place] disintegrat 00 every 8 Medic al ing tablet (eight) Branch hours as needed for Nausea and Vomiting (N/V). ondansetron Yes [id number] 4mg Take 1 Univers (ZOFRAN 4-01 tablet by ity of ODT) 4 mg 00:00: mouth [place] disintegrat 00 every 8 Medic al ing tablet (eight) Branch hours as needed for Nausea and Vomiting (N/V). ondansetron Yes [id number] 4mg Take 1 Univers (ZOFRAN 4-01 tablet by ity of ODT) 4 mg 00:00: mouth [place] disintegrat 00 every 8 Medic al ing tablet (eight) Branch hours as needed for Nausea and Vomiting (N/V). proMETHazin 0 Yes [id number] 25mg Take 1 Univers e 25 mg 2-09 tablet by ity of tablet 00:00: mouth [place] 00 every 6 Medical (six) Branch hours as needed for Nausea and Vomiting (N/V). proMETHazin 2020-0 Yes [id number] 25mg Take 1 Univers e 25 mg 2-09 tablet by ity of tablet 00:00: mouth [place] 00 every 6 Medical (six) Branch hours as needed for Nausea and Vomiting (N/V). proMETHazin 2020-0 Yes [id number] 25mg Take 1 Univers e 25 mg [...] Name Name Td 2011-06-28 Completed University 00:00:00 [facility] [place] [facility] Td 2011-06-28 Completed University 00:00:00 [facility] [place] [facility] Td 2011-06-28 Completed University 00:00:00 [facility] 2011-06-28 Completed [facility] 00:00:00 [facility] [place] [facility] Vital Signs Vital Name Observation Time Observation Value Comments Source Systolic blood 2020-12-31 06:49:00 125 mm[Hg] Univer sity [facility] Diastolic blood 2020-12-31 06:49:00 93 mm[Hg] Unive rsity [facility] Heart rate 2020-12-31 06:49:00 104 /min [facility] Body temperature 2020-12-31 06:49:00 36.83 [place] [facility] Respiratory rate 2020-12-31 06:49:00 15 /min [facility] Body height 2020-12-31 06:49:00 152.4 cm [facility] Body weight 2020-12-31 06:49:00 92.5 kg [facility] BMI 2020-12-31 06:49:00 39.83 kg/m2 [facility] Oxygen saturation in 2020-12-31 06:49:00 99 /min [facility] Arterial blood by [facility] Pulse oximetry Branch Systolic blood 2020-12-31 06:49:00 125 mm[Hg] Univer sity of [facility] Diastolic blood 2020-12-31 06:49:00 93 mm[Hg] Unive rsity of [facility] Heart rate 2020-12-31 06:49:00 104 /min [facility]i ty [facility] [place] [facility] Body temperature 2020-12-31 06:49:00 36.83 [place] Univ ersity [facility] [place] [facility] Respiratory rate 2020-12-31 06:49:00 15 /min Univ ersity [facility] [place] [facility] Body height 2020-12-31 06:49:00 152.4 cm [facility] [place] [facility] Body weight 2020-12-31 06:49:00 92.5 kg [facility]i ty [facility] [place] [facility] BMI 2020-12-31 06:49:00 39.83 kg/m2 [facility] [place] [facility] Oxygen saturation in 2020-12-31 06:49:00 99 /min University of Arterial blood by [facility] Pulse oximetry Branch Systolic blood 2020-11-20 19:58:00 146 mm[Hg] Univer sity of [facility] [place] [facility] Diastolic blood 2020-11-20 19:58:00 95 mm[Hg] Unive rsity of [facility] [place] [facility] Heart rate 2020-11-20 19:58:00 98 /min [facility]i ty [facility] [place] [facility] Body temperature 2020-11-20 19:58:00 37.17 [place] Univ ersity [facility] [place] [facility] Respiratory rate 2020-11-20 19:58:00 17 /min Univ ersity [facility] [place] [facility] Oxygen saturation in 2020-11-20 19:58:00 100 /min University of Arterial blood by [facility] Pulse oximetry Branch Body weight 2020-11-20 16:43:00 92.534 kg [facility]i ty [facility] [place] [facility] BMI 2020-11-20 16:43:00 39.84 kg/m2 [facility]i ty [facility] [place] [facility] Systolic blood 2020-11-20 19:58:00 146 mm[Hg] Univer sity of [facility] [place] [facility] Diastolic blood 2020-11-20 19:58:00 95 mm[Hg] Unive rsity of [facility] [place] [facility] Heart rate 2020-11-20 19:58:00 98 /min [facility]i ty [facility] [place] [facility] Body temperature 2020-11-20 19:58:00 37.17 [place] Univ ersity [facility] [place] [facility] Respiratory rate 2020-11-20 19:58:00 17 /min Univ ersity [facility] [place] [facility] Oxygen saturation in 2020-11-20 19:58:00 100 /min University of Arterial blood by [facility] Pulse oximetry Branch Body weight 2020-11-20 16:43:00 92.534 kg [facility]i ty [facility] [place] [facility] BMI 2020-11-20 16:43:00 39.84 kg/m2 [facility] [place] [facility] Body height 2020-09-26 23:49:00 152.4 cm [facility] [place] [facility] Body weight 2020-09-26 23:49:00 90.719 kg [facility]i ty [facility] [place] [facility] BMI 2020-09-26 23:49:00 39.06 kg/m2 [facility] [place] [facility] Systolic blood 2020-09-26 23:45:00 103 mm[Hg] Univer sity of [facility] [place] [facility] Diastolic blood 2020-09-26 23:45:00 62 mm[Hg] Unive rsity of [place] [facility] [place] Heart rate 2020-09-26 23:45:00 107 /min Universi ty [facility] [place] [facility] [place] Body temperature 2020-09-26 23:45:00 36.61 [place] Univ ersity [facility] [place] [facility] Respiratory rate 2020-09-26 23:45:00 18 /min Univ ersity [facility] [place] [facility] Oxygen saturation in 2020-09-26 23:45:00 97 /min University of Arterial blood by [facility] Pulse oximetry Branch Body height 2020-09-26 23:49:00 152.4 cm [facility]i ty [facility] [place] [facility] Body weight 2020-09-26 23:49:00 90.719 kg [facility]i ty [facility] [place] [facility] BMI 2020-09-26 23:49:00 39.06 kg/m2 [facility] [place] [facility] Systolic blood 2020-09-26 23:45:00 103 mm[Hg] Univer sity of [facility] [place] [facility] Diastolic blood 2020-09-26 23:45:00 62 mm[Hg] Unive rsity of [facility] [place] [facility] Heart rate 2020-09-26 23:45:00 107 /min [facility]i ty [facility] [place] [facility] Body temperature 2020-09-26 23:45:00 36.61 [place] Univ ersity [facility] [place] [facility] Respiratory rate 2020-09-26 23:45:00 18 /min Univ ersity [facility] [place] [facility] Oxygen saturation in 2020-09-26 23:45:00 97 /min University of Arterial blood by [facility] Pulse oximetry Branch Systolic blood 2020-07-17 14:00:00 112 mm[Hg] Univer sity of [facility] [place] [facility] Diastolic blood 2020-07-17 14:00:00 65 mm[Hg] Unive rsity of [facility] [place] [facility] Heart rate 2020-07-17 14:00:00 86 /min Universi ty [facility] [place] [facility] Respiratory rate 2020-07-17 14:00:00 20 /min Univ ersity [facility] [place] [facility] Oxygen saturation in 2020-07-17 14:00:00 100 /min University of Arterial blood by [facility] Pulse oximetry Branch Body temperature 2020-07-17 11:50:00 37.22 [place] [facility] ersity of [place] [facility] Body weight 2020-07-17 11:50:00 86.183 kg Universi ty [facility] [place] [facility] BMI 2020-07-17 11:50:00 37.11 kg/m2 [facility] [place] [facility] Systolic blood 2020-07-17 14:00:00 112 mm[Hg] Univer sity of [facility] [place] [facility] Diastolic blood 2020-07-17 14:00:00 65 mm[Hg] Unive rsity of [facility] [place] [facility] Heart rate 2020-07-17 14:00:00 86 /min [facility]i ty [facility] [place] [facility] Respiratory rate 2020-07-17 14:00:00 20 /min Univ ersity [facility] [place] [facility] Oxygen saturation in 2020-07-17 14:00:00 100 /min University of Arterial blood by [facility] Pulse oximetry Branch Body temperature 2020-07-17 11:50:00 37.22 [place] [facility] ersity of [place] [facility] Body weight 2020-07-17 11:50:00 86.183 kg [facility]i ty [facility] [place] [facility] BMI 2020-07-17 11:50:00 37.11 kg/m2 [facility] [place] [facility] Procedures Procedure Date / Time Performed Performing Clinician Sour e RAPID STREP SCREEN FOR 2020-12-31 07:13:00 Akiko Dunaway [facility] GROUP A Medical Branch NOTICE OF PRIVACY 2020-12-31 06:34:54 Doctor Unassigned, No [facility] [place] [facility] Name Medical Branch CONSENT/REFUSAL FOR 2020-12-31 06:34:35 Doctor Unassigned, No Un iversity [facility] [place] DIAGNOSIS AND Name Medical Branch TREATMENT CT HEAD WO CONTRAST 2020-11-20 18:18:22 John Rivera [facility] POCT TEST 2020-11-20 17:50:00 John Rivera [facility] BASIC METABOLIC PANEL 2020-11-20 17:24:00 [facility] (NA, K, CL, CO2, Medical Branch GLUCOSE, BUN, CREATININE, CA) CBC WITH DIFF 2020-11-20 17:24:00 John Rivera [facility] CONSENT/REFUSAL FOR 2020-11-20 16:36:59 Doctor Unassigned, No Un iversity [facility] [place] DIAGNOSIS AND Name [facility] TREATMENT POCT TEST 2020-09-27 02:56:00 Tricia Herbert [facility] ASSIGNMENT OF BENEFITS 2020-09-27 01:35:31 Doctor Unassigned, No [facility] CONSENT/REFUSAL FOR 2020-09-26 23:26:24 Doctor Unassigned, No Un [facility] [place] DIAGNOSIS AND Name [facility] TREATMENT URINALYSIS 2020-07-17 14:08:00 Austin Cowart [facility] POCT TEST 2020-07-17 14:08:00 Austin Cowart [facility] CBC WITH DIFF 2020-07-17 12:25:00 Austin Cowart [facility] NOTICE OF PRIVACY 2020-07-17 11:48:39 Doctor Unassigned, No [facility] Medical [place] CONSENT/REFUSAL FOR 2020-07-17 11:44:41 Doctor Unassigned, No [facility] [place] DIAGNOSIS AND Name [facility] TREATMENT Plan of Care Planned Activity Planned Date Details Comments Source Future Scheduled Test Hepatitis C screening [facility] (procedure) [code = 166402640] Future Scheduled Test Screening for [facility] malignant neoplasm of cervix (procedure) [code = 424183906] Future Scheduled Test INFLUENZA VACCINE [facility] [code = INFLUENZA VACCINE] Future Scheduled Test COVID-19 VACCINE (1) [facility] [code = COVID-19 VACCINE (1)] Encounters Start End Encounter Admission Attending Care Care Encounter Source Date/Time Date/Time Type Type Clinicians Facility Department ID 2021-04-28 Emergency [facility] [id number] Univers 06:08:31 ity of [facility] [place] [facility] 2021-04-27 Emergency [facility] [id number] Univers 21:27:31 ity [facility] 2021-04-27 Emergency [facility] [id number] Univers 10:13:04 ity of [facility] 2021-04-26 Emergency [facility] [id number] Univers [facility]:11[facility] [id number] [facility] 09:14:00 [id number] [facility] 2020-12-31 2020-12-31 [facility] 1.2.840.114 [id number] Univers 02:02:00 03:26:00 Akiko Weiner [id number] i ty of [place] 4.2.7.2.686 [facility] [id number] [address] 2020-12-31 2020-12-31 Emergency [facility] 1.2.840.114 [id number] 02:02:00 03:26:00 Akiko Weiner [id number] [place] 4.2.7.2.686 [place] [id number] [facility] 2020-11-20 2020-11-20 [facility] [id number] Univers 11:47:00 15:01:00 John S Weiner 350.1.13.10 i ty of [place] 4.2.7.2.686 [facility] [id number] [address] 2020-11-20 2020-11-20 Emergency [place], [facility] [id number] 11:47:00 15:01:00 John S Weiner 350.1.13.10 [place] 4.2.7.2.686 [place] [id number] [facility] 2020-09-26 2020-09-26 Emergency Tricia Herbert [facility] 1.2.840.114 [id number] [facility] 18:51:00 22:39:00 Lluvia Mejia 350.1.13.10 i ty [facility] 4.2.7.2.686 [facility] [id number] [address] 2020-09-26 2020-09-26 Emergency Tricia Herbert [facility] 1.2.840.114 [id number] 18:51:00 22:39:00 Lluvia Mejia 350.1.13.10 [place] 4.2.7.2.686 [place] [id number] 2020-08-06 2020-08-06 Emergency Kami RIVERA, [facility] ERT [id number] Univers 10:13:00 12:49:00 [facility] 2020-07-17 2020-07-17 Emergency Supa Austin Ravi [facility] 1.2.840 .114 [id number] [facility] 05:53:00 08:59:00 Dani Kauffman 350.1.13.10 ity [facility] 4.2.7.2.686 [facility] [id number] [address] 2020-07-17 2020-07-17 Emergency Austin Cowart Ravi [facility] 1.2.840 .114 [id number] 05:53:00 08:59:00 Kauffman, Dani Mejia 350.1.13.10 [place] [address] [place] [address] [id number] Results Test Description Test Time Test Comments Results Result Comments Source RAPID STREP SCREEN FOR GROUP A 2020-12-31 07:59:00 Test Item Value Reference Range Interpretation Comme nts Streptococcus pyogenes (group A) antigen (test code = 57631- 2) Negative Negative Lab Interpretation (test code = 60933-5) [facility] [id number] 18:21:18No acute findings. HISTORY:Head trauma, mod-severe hit left head, near syncope, persistentsevere headache and dizziness TECHNIQUE: Noncontrast head CT was performed. COMPARISON:None FINDINGS: The ventricles and sulci are appropriate for patient's age. There is no midline shift. The basal cisterns are preserved. No largevascular territory infarction, intracranial hemorrhage or mass effect isseen. The extracranial tissues demonstrate no acute findings. [facility], Radiant Results Inft User - 11/20/2020 1:22 PM CDT HISTORY:Head trauma, mod-severe hit left head, near syncope, persistentsevere headache and dizziness TECHNIQUE: Noncontrast head CT was performed.COMPARISON:NoneFINDINGS:The ventricles and sulci are appropriate for patient's age.There is no midline shift. The basal cisterns are preserved. No largevascular territory infarction, intracranial hemorrhage or mass effect isseen.The extracranial tissues demonstrate no acute findings.IMPRESSIONNo acute findings.[facility] METABOLIC PANEL (NA, K, CL, CO2, GLUCOSE, BUN, CREATININE, CA)2020-11-20 18:00:40 Test Item Value Reference Range Interpretation Comments NA (test code = 137 mmol/L 135-145 3053329338) K (test code = 4.2 mmol/L 3.5-5.0 2301187669) CL (test code = 104 mmol/L 98-108 6651909938) CO2 TOTAL (test code = 22 mmol/L 23-31 L 7239717679) AGAP (test code = 2-16 6047711075) BUN (test code = 10 mg/dL 7-23 0725203177) GLUCOSE (test code = 150 mg/dL 70-110 H 5468774394) CREATININE (test code = 0.59 mg/dL 0.50-1.04 8344089239) CALCIUM (test code = 9.5 mg/dL 8.6-10.6 7534959533) eGFR (test code = mL/min/1.73m2 7730328680) TOBI (test code = TOBI) Association of [...] tests). Lab Interpretation Abnormal (test code = 58020-5) [facility] [id number] 17:50:00 Test Item Value Reference Range Interpretation Comments POCT PREG (test code = 1605) negative On board controls acceptable with present C Line (test code = 3574) POCT PREG LOT # (test code = 3575) [id number] POCT PREG TEST DATE (test 05/27/2022 code = 3576) Lab Interpretation (test code = Normal 91760-5) [facility] WITH [id number] 17:32:17 Test Item Value Reference Range Interpretation Comments WBC (test code = See_Comment [Automated 3435-2) message] The sy stem which generated this result transmitted reference range : 4.30 - 11.10 10*3/?L. The reference range was not used to interpret this result as normal/abnormal . RBC (test code = See_Comment [Automated 650-7) message] The sy stem which generated this [...] RDW-SD (test code = 40.4 fL 39.0-49.9 57013-4) RDW-CV (test code = 13.0 % 12.0-15.5 788-0) PLT (test code = See_Comment H [Automated 777-3) message] The sy stem which generated this result transmitted reference range : 166 - 358 10*3/ ?L. The reference r shira was not used to interpret this result as normal/abnormal . MPV (test code = 9.5 fL 9.5-12.9 17748-1) NRBC/100 WBC (test See_Comment [Automat ed code = 2814847491) message] The system which generated this result transmitted reference range : 0.0 - 10.0 /100 WBCs. The refer ence range was not u sed to interpret th is result as normal/abnormal . NRBC x10^3 (test code <0.01 See_Comment [Auto mated = 8746239919) message] The s ystem which generated this result transmitted reference range : 10*3/?L. The reference range was not used to interpret this result as normal/abnormal . GRAN MAT (NEUT) % 83.0 % (test code = 770-8) IMM GRAN % (test code 0.70 % = 4545701327) LYMPH % (test code = 12.5 % 736-9) MONO % (test code = 3.7 % 5905-5) EOS % (test code = 0.0 % 713-8) BASO % (test code = 0.1 % 706-2) GRAN MAT x10^3(ANC) 8.41 10*3/uL 1.88-7.09 H (test code = 8984168270) IMM GRAN x10^3 (test 0.07 10*3/uL 0.00-0.06 H code = 9351547057) LYMPH x10^3 (test code 1.26 10*3/uL 1.32-3.29 L = 731-0) MONO x10^3 (test code 0.37 10*3/uL 0.33-0.92 = 742-7) EOS x10^3 (test code = <0.03 0.03-0.39 L 711-2) BASO x10^3 (test code <0.03 0.01-0.07 = 704-7) Lab Interpretation Abnormal (test code = 36121-0) [id number] 02:56:00 Test Item Value Reference Range Interpretation Comments POCT PREG (test code = 1605) negative On board controls acceptable with present C Line (test code = 3574) POCT PREG LOT # (test code = 3575) [id number] POCT PREG TEST DATE (test 02/25/2022 code = 3576) Lab Interpretation (test code = Normal 96020-7) [facility] DNA BY [id number] 14:24:00 Test Item Value Reference Range Interpretation Comments C. TRACHOMATIS DNA BY Negative Negative PCR (test code = CHLAMTDNA) N. GONORRHOEAE DNA BY Negative Negative Perfor med At: ST PCR (test code = [facility] James NGONORDNA) [id number] [facility] [place] [id number] Rodrigues MD Ph:[phone] - DUP AB/PEL/SC/[id number] 14:12:00 [facility] : 1995 Sex: F Patient Name: FATMATA DEGROOT Unit No: [id number] EXAMS: CPT CODE: [id number] DUP AB/PEL/SC/LTD 98504 PELVIC ULTRASOUND, 08/01/2020: COMPARISON: CT pelvis dated [...] Orig Print D/T: S: 08/01/2020 (1415) The [facility] NAME: DEGROOT,FATMATA Radiology DepartmentPHYS: Winter Landaverde MD [address] : 1995 AGE: 24 SEX: F [place] [address] LOC: F.ERS PHONE #: [phone] EXAM DATE: 08/01/2020 STATUS: REG ER FAX #: [phone] RAD NO: Page 1 Signed Report Patient Name: FATMATA DEGROOT Unit No: [id number] EXAMS: CPT CODE: [id number] DUP AB/PEL/SC/LTD 72587 <Continued> [facility] [facility] NAME: DEGROOT,FATMATA Radiology Department PHYS: Winter Landaverde MD [address] : 1995 AGE: 24 SEX: F [place] [address] LOC: SANDY PHONE #: [phone] DATE: 08/01/2020 STATUS: BALTAZAR LOVE FAX #: [phone] RAD NO: Page 2 Signed Report- US TRANSVAGINAL [id number] 14:12:00[facility] : 1995 Sex: F Patient Name: FATMATA DEGROOT Unit No: [id number] EXAMS: CPT CODE: [id number] US TRANSVAGINAL W/PELVIS 08234 PELVIC ULTRASOUND, 08/01/2020: COMPARISON: CT pelvis dated [...] Austin Barrera Technologist: Alexandra Elder RDMS Probe: [id number] Trnscrbd D/ (1412) [email or web address] Orig Print D/T: S: 08/01/2020 (1415) The [facility] NAME: FATMATA DEGROOT Radiology DepartmentPHYS: ELLISSalimaWinter Ortiz MD [address] : 1995 AGE: 24 SEX: F [place] [address] LOC: Saran.ERS PHONE #: [phone] EXAM DATE: 08/01/2020 STATUS: REG ER FAX #: [phone] RAD NO: Page 1 Signed Report Patient Name: FATMATA DEGROOT Unit No: [id number] EXAMS: CPT CODE: [id number] US TRANSVAGINAL W/PELVIS 68933 <Continued> The [facility] NAME: DEGROOT,FATMATA Radiology Department PHYS: Jay Winter Wilkins MD [address] : 1995 AGE: 24 SEX: F [place], [place] [address] LOC: F.ERS PHONE #: [phone] DATE: 08/01/2020 STATUS: REG ER FAX #: [phone] RAD NO: Page 2 Signed Report- US PELVIS [id number] 14:12:00[facility] : 1995 Sex: F Patient Name: FATMATA DEGROOT Unit No: [id number] EXAMS: CPT CODE: [id number] US PELVIS COMPLETE 80891 PELVIC ULTRASOUND, 08/01/2020: COMPARISON: CT pelvis dated [...] Orig Print D/T: S: 08/01/2020 (1415) [facility] NAME: FATMATA DEGROOT Radiology DepartmentPHYS: Winter Landaverde MD [address] : 1995 AGE: 24 SEX: F [place], [place] [address] LOC: ShaylaERS PHONE #: [phone] EXAM DATE: 08/01/2020 STATUS: REG ER FAX #: [phone] RAD NO: Page 1 Signed Report Patient Name: FATMATA DEGROOT Unit No: [id number] EXAMS: CPT CODE: [id number] US PELVIS COMPLETE 94329 <Continued> The [facility] NAME: FATMATA DEGROOT Radiology Department PHYS: Winter Landaverde MD [address] : 1995 AGE: 24 SEX: F [place], [place] [address] LOC: SANDY PHONE #: [phone] DATE: 08/01/2020 STATUS: BALTAZAR LOVE FAX #: [phone] RAD NO: Page 2 Signed Report- CT ABD PELVIS W/O [id number] 10:58:00[facility] : 1995 Sex: F Patient Name: FATMATA DEGROOT Unit No: [id number] EXAMS: CPT CODE: [id number] CT ABD PELVIS W/O CONT 04409 CT ABDOMEN/CT STONE SURVEY WITHOUT CONTRAST, 08/01/2020 [...] mm right middle lobe pulmonary nodule. The [facility] NAME: FATMATA DEGROOT Radiology Department PHYS: Winter Landaverde MD [address] : 1995 AGE: 24 SEX: F [place] [address] LOC: Saran.ERS PHONE #: [phone] EXAM DATE: 08/01/2020 STATUS: REG ER FAX #:[phone] RAD NO: Page 1 Signed Report 1 Patient Name: FATMATA DEGROOT Unit No: [id number] EXAMS: CPT CODE: [id number] CT ABD PELVIS W/O CONT 64514 <Continued> CT PELVIS WITHOUT CONTRAST: No opaque [...] Joe Agudelo MD CC: Winter Mccollum MD; [facility] Technologist: Art Church, RT, CT CTDI: 13.28 DLP: 653.43 Trnscrbd D/ (1058) [email or web address] The [facility] NAME: DEGROOTFATMATA Radiology Department PHYS: Winter Landaverde MD [address] : 1995 AGE: 24 SEX: F [place], [place] [address] LOC: Saran.ERS PHONE #: [phone] EXAM DATE: 08/01/2020 STATUS: REG ER FAX #: [phone] RAD NO: Page 2 Signed Report 1 Patient Name: FATMATA DEGROOT Unit No: [id number] EXAMS: CPT CODE: [id number] CT ABD PELVIS W/O CONT 09393 <Continued> Orig Print D/T: S: 08/01/2020 (1101) [facility] NAME: FATMATA DEGROOT Radiology Department PHYS: Winter Landaverde MD [address] : 1995 AGE: 24 SEX: F [place], [place] [address] LOC: SANDY PHONE #: [phone] EXAM DATE: 08/01/2020 STATUS: REG ER FAX #: [phone] RAD NO: Page 3 Signed Report 1UA RFLX MICR CULT IF [id number] 10:04:00 Test Item Value Reference Range Interpretation [...] culture: Suprapubic PainSpecimen Description: CLEAN CATCHUR HCG [id number] 10:04:00 Test Item Value Reference Range Interpretation [...] Description: CLEAN CATCHUA RFLX MICR CULT IF [id number] 10:03:00 Test Item Value Reference Range Interpretation [...] culture: Suprapubic PainSpecimen Description: CLEAN CATCHUR HCG [id number] 10:03:00 Test Item Value Reference Range Interpretation Comments UR HCG QUAL (test code = HCGQLU) Indication for culture: Suprapubic PainSpecimen Description: CLEAN CATCH [id number] 14:39:00 Test Item Value Reference Range Interpretation Comments APPEARANCE (test code = Hazy Clear A 1780197093) COLOR (test code = Yellow Yellow 2661912658) PH (test code = 4.8-8.0 5101344855) SP GRAVITY (test code = 1.003-1.030 9684606543) GLU U QUAL (test code = Normal Normal 6026703366) BLOOD (test code = Negative Negative INTERFERE NCE FROM 2252818198) ASCORBIC ACID M AY CAUSE FALSE NEG ATIVE RESULT KETONES (test code = Negative Negative 2854355855) PROTEIN (test code = Negative Negative 2887-8) UROBILIN (test code = Normal Normal 3257691391) BILIRUBIN (test code = Negative Negative 2924197467) NITRITE (test code = Negative Negative 0459029088) LEUK SILVINO (test code = Negative Negative 4605157921) RBC/HPF (test code = See_Comment [Autom ated message] 5554805552) The system [employer] generated this result transmitted ref erence range: 0 - 3 HP F. The reference range was not used to int erpret this result as normal/abnormal . WBC/HPF (test code = <1 See_Comment [Autom ated message] 5178468623) The system [employer] generated this result transmitted ref erence range: 0 - 5 HP F. The reference range was not used to int erpret this result as normal/abnormal . BACTERIA (test code = Few Negative A 4852397412) MUCOUS (test code = Slight Negative LPF A 4663660922) SQ EPITH (test code = HPF 2397180596) Lab Interpretation (test Abnormal code = 78188-6) [id number] 14:[facility]00 Test Item Value Reference Range Interpretation Comments POCT PREG (test code = 1605) negative On board controls acceptable with present C Line (test code = 3574) POCT PREG LOT # (test code = 3575) [id number] POCT PREG TEST DATE (test 2022-02-25 code = 3576) Lab Interpretation (test code = Normal 17285-4) [facility] WITH [id number] 12:41:00 Test Item Value Reference Range Interpretation Comments WBC (test code = See_Comment [Automated 9090-2) message] The sy stem which generated this [...] RDW-SD (test code = 40.8 fL 39-49.9 70680-7) RDW-CV (test code = 13.0 % 12-15.5 788-0) PLT (test code = See_Comment H [Automated 777-3) message] The sy stem which generated this result transmitted reference range : 166 - 358 10*3/ ?L. The reference r shira was not used to interpret this result as normal/abnormal . MPV (test code = 9.5 fL 9.5-12.9 52364-6) NRBC/100 WBC (test See_Comment [Automat ed code = 7947845617) message] The system which generated this result transmitted reference range : 0.0 - 10.0 /100 WBCs. The refer ence range was not u sed to interpret th is result as normal/abnormal . NRBC x10^3 (test code <0.01 See_Comment [Auto mated = 5531418803) message] The s ystem which generated this result transmitted reference range : 10*3/?L. The reference range was not used to interpret this result as normal/abnormal . GRAN MAT (NEUT) % 49.7 % (test code = 770-8) IMM GRAN % (test code 0.40 % = 6373142098) LYMPH % (test code = 37.6 % 736-9) MONO % (test code = 6.3 % 5905-5) EOS % (test code = 5.4 % 713-8) BASO % (test code = 0.6 % 706-2) GRAN MAT x10^3(ANC) 4.65 10*3/uL 1.88-7.09 (test code = 2392657456) IMM GRAN x10^3 (test 0.04 10*3/uL 0-0.06 code = 8213071699) LYMPH x10^3 (test code 3.52 10*3/uL 1.32-3.29 H = 731-0) MONO x10^3 (test code 0.59 10*3/uL 0.33-0.92 = 742-7) EOS x10^3 (test code = 0.51 10*3/uL 0.03-0.39 H 711-2) BASO x10^3 (test code 0.06 10*3/uL 0.01-0.07 = 704-7) Lab Interpretation Abnormal (test code = 67852-3) [facility] W/AUTO [id number] 07:27:00 Test Item Value Reference Range Interpretation [...] NORMAL code = PLTMR) AG HEPATITIS B [id number] 04:15:00 Test Item Value Reference Range Interpretation Comments AG HEPATITIS B SURFACE (test code NONREACTIVE NONREACTIVE = HBSAG) AB HEPATITIS C [id number] 04:15:00 Test Item Value Reference Range Interpretation Comments AB HEPATITIS C (test code = NONREACTIVE NONREACTIVE HCVAB) SIGNAL TO CUTOFF (test code = 0.13 <0.80 N CUTOFF) RUBELLA [id number] 04:15:00 Test Item Value Reference Range Interpretation Comments RUBELLA SCREEN 70.2 IUnit/ml Results >10. 0IUnits/ml (test code = are considered positive RUBSC) inaccordance wi th the CLSI guidelines and based on the WH [employer] S tandard for Anti-Rubell a serum as anindicator of immune status and a br eakpoint to detect mostseropositiv e persons. AB [id number] 04:15:00 Test Item Value Reference Range Interpretation Comments AB TREPONEMA (test code = TREPAB) NONREACTIVE NONREACTIVE AG HEPATITIS B [id number] 04:00:00 Test Item Value Reference Range Interpretation Comments AG HEPATITIS B SURFACE (test code NONREACTIVE NONREACTIVE = HBSAG) AB HEPATITIS C [id number] 04:00:00 Test Item Value Reference Range Interpretation Comments AB HEPATITIS C (test code = HCVAB) NONREACTIVE SIGNAL TO CUTOFF (test code = CUTOFF) <0.80 RUBELLA [id number] 04:00:00 Test Item Value Reference Range Interpretation Comments RUBELLA SCREEN 70.2 IUnit/ml Results >10. 0IUnits/ml (test code = are considered positive RUBSC) inaccordance wi th the CLSI guidelines and based on the O International S tandard for Anti-Rubell a serum as anindicator of immune status and a br eakpoint to detect mostseropositiv e persons. AB [id number] 04:00:00 Test Item Value Reference Range Interpretation Comments AB TREPONEMA (test code = TREPAB) NONREACTIVE NONREACTIVE CBC W/AUTO [id number] 00:36:00 Test Item Value Reference Range Interpretation [...]
[2021-08-11] MEDS ORDERED: HYDROCODONE/APAP 7.5/325 MG TAB ONE (13:31)
[2021-08-11 14:40] LABS: SARS-COV-2 RT PCR NEGATIVE (NEGATIVE)
--- NOTE | 2021-08-11 14:48 | ER ---
Nurse's Notes [facility] Name: Carla Duncan Age: 25 yrs Sex: Female : 1995 Arrival Date: 08/11/2021 Time: 12:51 Bed Waiting Private MD: Pancho Ortega Diagnosis: Viral infection, unspecified Presentation: 08/11 13:02 Chief complaint: Patient states: Cough, fever, legs achy, CP, weakness for 2 days. N/V ll1 yesterday. Coronavirus screen: Vaccine status: Patient reports being unvaccinated. Client denies travel out of the [place] in the last 14 days. cough unrelated to allergies, fatigue, fever, headache, shortness of breath, sore throat, Client presents with at least one sign or symptom that may indicate coronavirus-19. Standard/surgical mask placed on the client. Ebola Screen: Patient denies travel to an Ebola-affected area in the 21 days before illness onset. Initial Sepsis Screen: Does the patient meet any 2 criteria? No. Patient's initial sepsis screen is negative. Does the patient have a suspected source of infection? Yes: Productive cough/pneumonia. Risk Assessment: Do you want to hurt yourself or someone else? Patient reports no desire to harm self or others. Onset of symptoms was August 10, 2021. 13:02 Method Of Arrival: Ambulatory 1 13:02 Acuity: VENKATESH 4 ll1 Triage Assessment: 13:05 General: Appears ill, Behavior is calm, cooperative, appropriate for age. Pain: 1 Complains of pain in head Pain currently is 8 out of 10 on a pain scale. Pain began 2-3 days ago. Also complains of no other associated symptoms. Neuro: No deficits noted. Cardiovascular: No deficits noted. Respiratory: Reports cough that is. 15:02 Headache History: The patient has had previous headaches and this one is similar to ll1 previous episodes. 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 Flu vaccine status is unknown. - Social history:: Smoking status: Reported history of juuling and/or vaping. Screenin:02 Abuse screen: Denies threats or abuse. Nutritional screening: No deficits noted. ll1 Tuberculosis screening: No symptoms or risk factors identified. Fall Risk Total Bradley Fall Scale indicates No Risk (0-24 pts). Assessment: 15:01 Reassessment: No changes from previously documented assessment. Patient and/or family ll1 updated on plan of care and expected duration. Pain level reassessed. Patient is alert, oriented x 3, equal unlabored respirations, skin warm/dry/pink. Pain: Denies pain. Vital Signs: 13:02 BP 115 / 78; Pulse 89; Resp 17; Temp 97.6; Pulse Ox 100% ; Weight 90.72 kg; Height 5 ll1 ft. 0 in. (152.40 cm); Pain 8/10; 13:02 Body Mass Index 39.06 (90.72 kg, 152.40 cm) ll1 ED Course: 12:51 Patient arrived in ED. as 12:51 Pancho Ortega is Private Physician. as 13:03 Triage completed. ll1 13:04 Arm band placed on. ll1 13:13 Av Marroquin PA is PHCP. jr8 13:13 Hal Watters MD is Attending Physician. jr8 15:02 Patient has correct armband on for positive identification. Cardiac monitoring not ll1 applicable on this patient. 15:02 No provider procedures requiring assistance completed. Patient did not have IV access ll1 during this emergency room visit. Patient maintains SpO2 saturation greater than 95% on room air. Administered Medications: 13:30 Drug: [place] (HYDROcodone-acetaminophen) (7.5 mg-325 mg) 1 tabs Route: PO; ll1 15:02 Follow up: Response: No adverse reaction; Pain is decreased; RASS: Alert and Calm (0) ll1 Outcome: 14:48 Discharge ordered by . jr8 15:02 Discharged to home ambulatory. ll1 15:02 Condition: stable 15:02 Discharge instructions given to patient, Instructed on discharge instructions, follow up and referral plans. no drinking with medication, no driving heavy equipment, medication usage, Demonstrated understanding of instructions, follow-up care, medications, Prescriptions given X 3. 15:03 Patient left the ED. ll1 Signatures: Adele Lopez as Av Marroquin PA PA jr8 Roberta Coker RN RN ll1 Corrections: (The following items were deleted from the chart) 13:03 Allergies: Codeine; ll1 ll1 13:03 Allergies: Toradol; ll1 ll1 13:03 Allergies: Tramadol HCl; ll1 ll1 13:03 Allergies: Tussionex Pennkinetic ER; ll1 ll1
--- NOTE | 2021-08-11 14:49 | EDPHYS ---
Physician Documentation [facility] Name: Carla Duncan Age: 25 yrs Sex: Female : 1995 Arrival Date: 08/11/2021 Time: 12:51 Bed Waiting Private MD: Pancho Ortega ED Physician Hal Watters HPI: 08/11 14:02 This 25 yrs old Female presents to ER via Ambulatory with complaints of Cough, jr8 Fever, Headache, Weakness, Chest Pain. 14:02 The patient or guardian reports cough, that is intermittent, described as mild, with no jr8 sputum. Onset: The symptoms/episode began/occurred gradually. Severity of symptoms: At their worst the symptoms were mild, in the emergency department the symptoms are unchanged. Modifying factors: The symptoms are alleviated by nothing, the symptoms are aggravated by nothing. The patient has not experienced similar symptoms in the past. The patient has not recently seen a physician. 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 Flu vaccine status is unknown. - Social history:: Smoking status: Reported history of juuling and/or vaping. ROS: 14:02 Constitutional: Positive for body aches, fever. jr8 14:02 ENT: Positive for rhinorrhea, sore throat. 14:02 Respiratory: Positive for cough, Negative for shortness of breath, sputum production, wheezing. 14:02 Neuro: Positive for headache. Exam: 14:02 Constitutional: This is a well developed, well nourished patient who is awake, alert, jr8 and in no acute distress. Eyes: Pupils equal round and reactive to light, extra-ocular motions intact. Lids and lashes normal. Conjunctiva and sclera are non-icteric and not injected. Cornea within normal limits. Periorbital areas with no swelling, redness, or edema. ENT: Nares patent. No nasal discharge, no septal abnormalities noted. Tympanic membranes are normal and external auditory canals are clear. Oropharynx with no redness, swelling, or masses, exudates, or evidence of obstruction, uvula midline. Mucous membranes moist. Neck: Trachea midline, no thyromegaly or masses palpated, and no cervical lymphadenopathy. Supple, full range of motion without nuchal rigidity, or vertebral point tenderness. No Meningismus. Cardiovascular: Regular rate and rhythm with a normal S1 and S2. No gallops, murmurs, or rubs. Normal PMI, no JVD. No pulse deficits. Respiratory: Lungs have equal breath sounds bilaterally, clear to auscultation and percussion. No rales, rhonchi or wheezes noted. No increased work of breathing, no retractions or nasal flaring. Abdomen/GI: Soft, non-tender, with normal bowel sounds. No distension or tympany. No guarding or rebound. No evidence of tenderness throughout. Back: No spinal tenderness. No costovertebral tenderness. Full range of motion. Skin: Warm, dry with normal turgor. Normal color with no rashes, no lesions, and no evidence of cellulitis. MS/ Extremity: Pulses equal, no cyanosis. Neurovascular intact. Full, normal range of motion. Neuro: Awake and alert, GCS 15, oriented to person, place, time, and situation. Cranial nerves II-XII grossly intact. Motor strength 5/5 in all extremities. Sensory grossly intact. Vital Signs: 13:02 BP 115 / 78; Pulse 89; Resp 17; Temp 97.6; Pulse Ox 100% ; Weight 90.72 kg; Height 5 ll1 ft. 0 in. (152.40 cm); Pain 8/10; 13:02 Body Mass Index 39.06 (90.72 kg, 152.40 cm) ll1 MDM: 13:24 Patient medically screened. [facility] 14:02 Data reviewed: vital signs, nurses notes, lab test result(s). Data interpreted: Pulse jr8 oximetry: on room air is 100 %. Interpretation: normal. Counseling: I had a detailed discussion with the patient and/or guardian regarding: the historical points, exam findings, and any diagnostic results supporting the discharge/admit diagnosis, lab results, the need for outpatient follow up, a family practitioner, to return to the emergency department if symptoms worsen or persist or if there are any questions or concerns that arise at home. 08/11 13:27 Order name: COVID-19/FLU A+B (Document "Date of Onset" if Symptomatic); Complete Time: jr8 14:45 Administered Medications: 13:30 Drug: [place] (HYDROcodone-acetaminophen) (7.5 mg-325 mg) 1 tabs Route: PO; ll1 15:02 Follow up: Response: No adverse reaction; Pain is decreased; RASS: Alert and Calm (0) ll1 Disposition: 15:23 Co-signature as Attending Physician, Hal Watters MD. rn Disposition Summary: 08/11/21 14:48 Discharge Ordered Location: Home jr8 Problem: new jr8 Symptoms: have improved jr8 Condition: Stable jr8 Diagnosis - Viral infection, unspecified jr8 Followup: jr8 - With: Private Physician - When: 2 - 3 days - Reason: Recheck today's complaints, Continuance of care, Re-evaluation by your physician Discharge Instructions: - Discharge Summary Sheet jr8 - Viral Respiratory Infection jr8 Forms: - Medication Reconciliation Form jr8 - Thank You Letter jr8 - Antibiotic Education jr8 - Prescription Opioid Use jr8 - Work release form ll1 Prescriptions: - promethazine-DM 6.25-15 mg/5 mL Oral syrup - take 5 milliliter by ORAL route every 4-6 hours As needed as needed, not to jr8 exceed 30 mL in 24 hours; 100 milliliter; Refills: 0, Product Selection Permitted - Prednisone 20 mg Oral Tablet - take 1 tablet by ORAL route once daily for 5 days; 5 tablet; Refills: 0, jr8 Product Selection Permitted - Tessalon Perles 100 mg Oral Capsule - take 1 capsule by ORAL route every 8 hours As needed; 15 capsule; Refills: 0, jr8 Product Selection Permitted Signatures: Dispatcher [employer] EDMO Hal Watters MD MD rn Roszak, Josh, PA PA jr8 Roberta Coker RN RN ll1 Corrections: (The following items were deleted from the chart) 13:04 13:03 Allergies: Codeine; ll1 ll1 13:04 13:03 Allergies: Toradol; ll1 ll1 13:04 13:03 Allergies: Tramadol HCl; ll1 ll1 13:04 13:03 Allergies: Tussionex Pennkinetic ER; ll1 ll1
[2021-08-11 16:27] VITALS: BP 115/78; TEMP 97.6; O2SAT 100
== END 2021-08-11 15:03 | disposition home or self-care (01) ==
LOC: ER 12:46
DX: B34.9 Viral infection, unspecified (principal); Z20.822 Contact with and (suspected) exposure to COVID-19; Z88.1 Allergy status to other antibiotic agents
CPT/HCPCS: 0240U; 99284

== ENCOUNTER 2021-08-15 00:20 | Emergency (ER) | payer OTHER ==
--- OUTSIDE RECORDS SUMMARY | 2021-08-15 00:25 | XMS REPORT | Continuity of Care Document ---
:1995 Author Organization [facility] t Address [address] [place]. [address] [place] [id number] Care Team Providers Name Role Phone Asked, Pcp Primary Care Physician Unavailable Gume CHANCE Attending Clinician Chapincito BUCHAANN S Attending Clinician Lluvia Rice Attending Clinician Geovani RIVERA Attending Clinician Unavailable Supa AREVALO, E Attending Clinician Singer FERNÁNDEZ Attending Clinician Geovani Barrera Admitting Clinician Unavailable Payers Payer Name Policy Type Policy Number Effective Date Expiration Date S ource HIM AMBETTER FROM [id number] 2020 [facility] 00:00:00 [employer] [place] [id number] 2019 00:00:00 Advance Directives Directive Decision Effective Termination Comments Source Date Date Healthcare Agents on N/A Univ ersity FileNameRelationshipHealthcare of [place] Agent Medical RelationshipCommunicationChBayhealth Emergency Center, [facility] TrevinioMotherHealth Care [phone] (Mobile)Pancho Williamswander Velascognificant OtherFirst Alternate Health Care [phone] (Mobile) [email or web address] Condition Condition Condition Status Onset Resolution Last Treating Co mments Source Name Details Category Date Date Treatment Clinician Date Obesity Obesity Disease Active Univers (BMI (BMI 1-16 ity of 30-39.9) 30-39.9) 00:00: [place] 00 [facility] Urinary Urinary Disease Active Univers tract [...] nivers 5-23 ity of 00:00: [place] 00 [facility] Family Family Disease Active Univers history of history of 8-26 it y of spina spina 00:00: [place] bifida bifida 00 [facility] No known No known Disease Metho [...] l of [place] codeine DA Active [place] 2018-0 [facility] [place] morphine DA Active U SWELLING 2018-0 [facility] 1-19 [facility] 00:[facility] [place] codeine DA Active [place] nausea, 2018- [facility] headache 1-19 [facility] 00:00: [facility] 00 [facility] [place] tramadol DA Active [place] 2017- [facility] 2-31 [facility] 00:00: [facility] 00 [facility] of [place] tramadol DA Active [place] CHEST PAIN 2017- [facility] 2-31 Woman's 00:00: [...] Date Source Natural mother Diabetes [facility] Natural mother Menstrual problems [facility] Social History Social Habit Start Date Stop Date Quantity Comments Source Exposure to Not sure [facility]-CoV-2 [facility] (event) [place] Tobacco use and 2020-12-31 2020-12-31 Never used Universit y of exposure 00:00:00 00:00:00 [facility] Alcohol intake 2020-12-31 2020-12-31 Current [facility] 00:00:00 00:00:00 non-drinker of [facility] alcohol [place] (finding) Alcohol Comment 2016-04-28 2016-04-28 social, weekly Metho [facility] 00:00:00 00:00:00 Sex [birth year] Universit y of 00:00:00 00:00:00 [facility] Smoking Status Start Date Stop Date [...] NOW, 1 [place] tablet 00 :00 dose, [facility] Medical 1,000 mg 12/31/20 at Branch 0300, RODRICK ibuprofen Yes [id number] 800mg Take 1 U nivers 800 mg 12-31 tablet by ity of tablet 00:00: mouth [place] 00 every 8 Medical (eight) Branch hours as needed for Pain (scale 4-6). cyclobenzap Yes [id number] 10mg Take 1 Univers rine 10 mg [...] 1,000 mL 00 :00 IV Medical Infusion, [place] ONCE, 1 dose, [facility] 11/20/20 at 1530, STAT metoclopram No 10mg 10 mg, Uni vers dio HCl 11-20- Slow IV ity of (REGLAN) 20:15: 19:18 Push, [place] injection 00 :00 ONCE, 1 Medical 10 mg dose, [facility] 11/20/20 at 1515, RODRICK ketorolac 2020- No 30mg 30 mg, Unive rs (TORADOL) 11-20 Slow IV ity of injection 20:15: 19:18 Push, [place] 30 mg 00 :00 ONCE, 1 Medical dose, Wed Branch 11/20/20 at 1515, [facility]ICK
[facility] : JOHN RIVERA diphenhydrA 2020- No 25mg 25 mg, Uni vers MINE 11-20 Slow IV ity of (BENADRYL) 20:15: 20:15 Push, [place] injection 00 :00 ONCE, 1 Medical 25 mg dose, Wed Branch 11/20/20 at 1515, STAT butalbital- Yes 1{tbl} 1 tablet, Univers acetaminoph 11-20 Oral, ity of en-caff 18:12: Q4HPRN, [place] (ESGIC) 27 Starting Medical 50-325-40 Wed Branch mg tablet 1 11/20/20 at tablet 1312, Until Discontinu ed, Routine, zofran ketorolac 2020-0 Yes [id number] 10mg Take 1 Un carolann 10 mg 5-26 tablet by ity of tablet 00:00: mouth [place] 00 every 6 Medical (six) Branch hours as needed for Pain (scale 4-6). cyclobenzap 2020-0 Yes [id number] 10mg Take 1 Univers rine 10 mg 5-26 tablet by ity of tablet 00:00: mouth 3 [place] 00 (three) Medical times Branch daily. ketorolac 2020-0 Yes [id number] 10mg Take 1 Un carolann 10 mg 5-26 tablet by ity of tablet 00:00: mouth [place] 00 every 6 Medical (six) Branch hours as needed for Pain (scale 4-6). cyclobenzap 2020-0 Yes [id number] 10mg Take 1 Univers rine 10 mg 5-26 tablet by ity of tablet 00:00: mouth 3 [place] 00 (three) Medical times Branch daily. ketorolac 0 2020- No 30mg 30 mg, Unive rs (TORADOL) 09-27 04- Intramuscu ity of injection 03:45: 02:57 lar, ONCE, [place] 30 mg 00 :00 1 dose, Medical Elicia 4/1/21 Branch at 2245, RODRICK
[facility] member approving Restricted medication : Tricia HERBERT [...] 09/26/20 Branch at 2245, RODRICK ondansetron Yes [id number] 4mg Take 1 Univers (ZOFRAN 4-01 tablet by ity of ODT) 4 mg 00:00: mouth [place] disintegrat 00 every 8 Medic al ing tablet (eight) Branch hours as needed for Nausea and Vomiting (N/V). ondansetron Yes [id number] 4mg Take 1 Univers (ZOFRAN 4-01 tablet by ity of ODT) 4 mg 00:00: mouth [place] disintegrat 00 every 8 Medic al ing tablet (eight) Branch hours as needed for Nausea and Vomiting (N/V). ondansetron Yes [id number] 4mg Take 1 Univers (ZOFRAN 4-01 tablet by ity of ODT) 4 mg 00:00: mouth [place] disintegrat 00 every 8 Medic al ing tablet (eight) Branch hours as needed for Nausea and Vomiting (N/V). proMETHazin 0 Yes [id number] 25mg Take 1 Univers e 25 mg 2-09 tablet by ity of tablet 00:00: mouth [place] 00 every 6 Medical (six) Branch hours as needed for Nausea and Vomiting (N/V). proMETHazin 2020-0 Yes [id number] 25mg Take 1 Univers e 25 mg 2-09 tablet by ity of tablet 00:00: mouth [place] 00 every 6 Medical (six) Branch hours as needed for Nausea and Vomiting (N/V). proMETHazin 2020-0 Yes [id number] 25mg Take 1 Univers e 25 mg [...]
Fa culty member approving Restricted medication : ASUTIN COWART E NaCl 0.9% 2020- No 1000mL [...] Name Name Td 2011-06-28 Completed University 00:00:00 [facility] Td 2011-06-28 Completed University 00:00:00 [facility] Td 2011-06-28 Completed University 00:00:00 [facility] 2011-06-28 Completed [facility] 00:00:00 [facility] Vital Signs Vital Name Observation Time Observation Value Comments Source Systolic blood 2020-12-31 06:49:00 125 mm[Hg] Univer sity [facility] Diastolic blood 2020-12-31 06:49:00 93 mm[Hg] Unive rsity [facility] Heart rate 2020-12-31 06:49:00 104 /min [facility] Body temperature 2020-12-31 06:49:00 36.83 [facility] Respiratory rate 2020-12-31 06:49:00 15 /min [facility] Body height 2020-12-31 06:49:00 152.4 cm [facility] Body weight 2020-12-31 06:49:00 92.5 kg [facility] BMI 2020-12-31 06:49:00 39.83 kg/m2 [facility] Oxygen saturation in 2020-12-31 06:49:00 99 /min [facility] Arterial blood by [facility] Pulse oximetry Branch Systolic blood 2020-12-31 06:49:00 125 mm[Hg] Univer sity of [facility] Diastolic blood 2020-12-31 06:49:00 93 mm[Hg] Unive rsity of [facility] Heart rate 2020-12-31 06:49:00 104 /min [facility]i ty [facility] [place] [facility] Body temperature 2020-12-31 06:49:00 36.83 [place] Univ ersity [facility] [place] [facility] Respiratory rate 2020-12-31 06:49:00 15 /min Univ ersity [facility] [place] [facility] Body height 2020-12-31 06:49:00 152.4 cm [facility] [place] [facility] Body weight 2020-12-31 06:49:00 92.5 kg [facility]i ty [facility] [place] [facility] BMI 2020-12-31 06:49:00 39.83 kg/m2 [facility] [place] [facility] Oxygen saturation in 2020-12-31 06:49:00 99 /min University of Arterial blood by [facility] Pulse oximetry Branch Systolic blood 2020-11-20 19:58:00 146 mm[Hg] Univer sity of pressure [place] [facility] Diastolic blood 2020-11-20 19:58:00 95 mm[Hg] Unive rsity of [facility] [place] [facility] Heart rate 2020-11-20 19:58:00 98 /min [facility]i ty [facility] [place] [facility] Body temperature 2020-11-20 19:58:00 37.17 [place] Univ ersity [facility] [place] [facility] Respiratory rate 2020-11-20 19:58:00 17 /min Univ ersity of [place] [facility] Oxygen saturation in 2020-11-20 19:58:00 100 /min University of Arterial blood by [facility] Pulse oximetry Branch Body weight 2020-11-20 16:43:00 92.534 kg [facility]i ty [facility] [place] [facility] BMI 2020-11-20 16:43:00 39.84 kg/m2 [facility]i ty [facility] [place] [facility] Systolic blood 2020-11-20 19:58:00 146 mm[Hg] Univer sity of [facility] [place] [facility] Diastolic blood 2020-11-20 19:58:00 95 mm[Hg] Unive rsity of [facility] [place] [facility] Heart rate 2020-11-20 19:58:00 98 /min [facility]i ty [facility] [place] [facility] Body temperature 2020-11-20 19:58:00 37.17 [place] Univ ersity [facility] [place] [facility] Respiratory rate 2020-11-20 19:58:00 17 /min Univ ersity of [place] [facility] Oxygen saturation in 2020-11-20 19:58:00 100 /min University of Arterial blood by [facility] Pulse oximetry Branch Body weight 2020-11-20 16:43:00 92.534 kg [facility]i ty [facility] [place] [facility] BMI 2020-11-20 16:43:00 39.84 kg/m2 [facility] [place] [facility] Body height 2020-09-26 23:49:00 152.4 cm [facility]i ty [facility] [place] [facility] Body weight 2020-09-26 23:49:00 90.719 kg [facility]i ty [facility] [place] [facility] BMI 2020-09-26 23:49:00 39.06 kg/m2 [facility] ty [facility] [place] [facility] Systolic blood 2020-09-26 23:45:00 103 mm[Hg] Univer sity of [facility] [place] [facility] Diastolic blood 2020-09-26 23:45:00 62 mm[Hg] Unive rsity of [facility] [place] [facility] [place] Heart rate 2020-09-26 23:45:00 107 /min Universi ty [facility] [place] [facility] [place] Body temperature 2020-09-26 23:45:00 36.61 [place] Univ ersity [facility] [place] [facility] Respiratory rate 2020-09-26 23:45:00 18 /min Univ ersity [facility] [place] [facility] Oxygen saturation in 2020-09-26 23:45:00 97 /min University of Arterial blood by [facility] Pulse oximetry Branch Body height 2020-09-26 23:49:00 152.4 cm [facility]i ty [facility] [place] [facility] Body weight 2020-09-26 23:49:00 90.719 kg [facility]i ty [facility] [place] [facility] BMI 2020-09-26 23:49:00 39.06 kg/m2 [facility] [place] [facility] Systolic blood 2020-09-26 23:45:00 103 mm[Hg] Univer sity of [facility] [place] [facility] Diastolic blood 2020-09-26 23:45:00 62 mm[Hg] Unive rsity of [facility] [place] [facility] Heart rate 2020-09-26 23:45:00 107 /min [facility]i ty [facility] [place] [facility] Body temperature 2020-09-26 23:45:00 36.61 [place] Univ ersity [facility] [place] [facility] Respiratory rate 2020-09-26 23:45:00 18 /min Univ ersity of [place] [facility] Oxygen saturation in 2020-09-26 23:45:00 97 /min University of Arterial blood by [facility] Pulse oximetry Branch Systolic blood 2020-07-17 14:00:00 112 mm[Hg] Univer sity of [facility] [place] [facility] Diastolic blood 2020-07-17 14:00:00 65 mm[Hg] Unive rsity of [facility] [place] [facility] Heart rate 2020-07-17 14:00:00 86 /min Universi ty [facility] [place] [facility] Respiratory rate 2020-07-17 14:00:00 20 /min Univ ersity of [place] [facility] Oxygen saturation in 2020-07-17 14:00:00 100 /min University of Arterial blood by [facility] Pulse oximetry Branch Body temperature 2020-07-17 11:50:00 37.22 [place] [facility] ersity of [place] [facility] Body weight 2020-07-17 11:50:00 86.183 kg Universi ty [facility] [place] [facility] BMI 2020-07-17 11:50:00 37.11 kg/m2 [facility] [place] [facility] Systolic blood 2020-07-17 14:00:00 112 mm[Hg] Univer sity of [facility] [place] [facility] Diastolic blood 2020-07-17 14:00:00 65 mm[Hg] Unive rsity of [facility] [place] [facility] Heart rate 2020-07-17 14:00:00 86 /min Universi ty [facility] [place] [facility] Respiratory rate 2020-07-17 14:00:00 20 /min Univ ersity of [place] [facility] Oxygen saturation in 2020-07-17 14:00:00 100 /min University of Arterial blood by [facility] Pulse oximetry Branch Body temperature 2020-07-17 11:50:00 37.22 [place] [facility] ersity of [place] [facility] Body weight 2020-07-17 11:50:00 86.183 kg [facility]i ty [facility] [place] [facility] BMI 2020-07-17 11:50:00 37.11 kg/m2 [facility] [place] [facility] Procedures Procedure Date / Time Performed Performing Clinician Sour e RAPID STREP SCREEN FOR 2020-12-31 07:13:00 Akiko Dunaway [facility] GROUP A Medical Branch NOTICE OF PRIVACY 2020-12-31 06:34:54 Doctor Unassigned, No [facility] Name Medical Branch CONSENT/REFUSAL FOR 2020-12-31 06:34:35 Doctor Unassigned, No Un [facility] [place] DIAGNOSIS AND Name Medical Branch TREATMENT CT HEAD WO CONTRAST 2020-11-20 18:18:22 John Rivera [facility] POCT TEST 2020-11-20 17:50:00 John Rivera [facility] BASIC METABOLIC PANEL 2020-11-20 17:24:00 John Rivera [facility] (NA, K, CL, CO2, Medical Branch GLUCOSE, BUN, CREATININE, CA) CBC WITH DIFF 2020-11-20 17:24:00 John Rivera [facility] CONSENT/REFUSAL FOR 2020-11-20 16:36:59 Doctor Unassigned, No Un iversity [facility] DIAGNOSIS AND Name [facility] TREATMENT POCT TEST 2020-09-27 02:56:00 Tricia Herbert [facility] ASSIGNMENT OF BENEFITS 2020-09-27 01:35:31 Doctor Unassigned, No [facility] CONSENT/REFUSAL FOR 2020-09-26 23:26:24 Doctor Unassigned, No [facility] [place] DIAGNOSIS AND Name [facility] TREATMENT URINALYSIS 2020-07-17 14:08:00 Austin Cowart [facility] POCT TEST 2020-07-17 14:08:00 Austin Cowart [facility] CBC WITH DIFF 2020-07-17 12:25:00 Austin Cowart [facility] NOTICE OF PRIVACY 2020-07-17 11:48:39 Doctor Unassigned, No [facility] Medical [place] CONSENT/REFUSAL FOR 2020-07-17 11:44:41 Doctor Unassigned, No [facility] [place] DIAGNOSIS AND Name [facility] TREATMENT Plan of Care Planned Activity Planned Date Details Comments Source Future Scheduled Test Hepatitis C screening [facility] (procedure) [code = 798173434] Future Scheduled Test Screening for [facility] malignant neoplasm of cervix (procedure) [code = 724917104] Future Scheduled Test INFLUENZA VACCINE [facility] [code = INFLUENZA VACCINE] Future Scheduled Test COVID-19 VACCINE (1) [facility] [code = COVID-19 VACCINE (1)] Encounters Start End Encounter Admission Attending Care Care Encounter Source Date/Time Date/Time Type Type Clinicians Facility Department ID 2021-04-28 Emergency [facility] [id number] Univers 06:08:31 ity of [facility] 2021-04-27 Emergency [facility] [id number] Univers 21:27:31 ity [facility] [place] [facility] 2021-04-27 Emergency [facility] [id number] Univers 10:13:04 ity of [facility] 2021-04-26 Emergency [facility] [id number] Univers 18:11[facility] [facility] 2020-08-01 Inpatient [facility] [id number] [facility] 09:14:00 [id number] [facility] 2020-12-31 2020-12-31 [facility] [id number] Univers 02:02:00 03:26:00 Akiko [place] [id number] i ty of [place] 4.2.7.2.686 [facility] [id number] [address] 2020-12-31 2020-12-31 Emergency [facility] [id number] 02:02:00 03:26:00 Akiko [place] [id number] [place] 4.2.7.2.686 [place] [id number] [facility] 2020-11-20 2020-11-20 [email or web address] [id number] Univers 11:47:00 15:01:00 John S [place] [id number] i ty of [place] 4.2.7.2.686 [facility] [id number] [address] 2020-11-20 2020-11-20 Emergency [place], [facility] [id number] 11:47:00 15:01:00 John S [place] [id number] [place] 4.2.7.2.686 [place] [id number] [facility] 2020-09-26 2020-09-26 Emergency Tricia Herbert [facility] [id number] [facility] 18:51:00 22:39:00 Lluvia Mejia [id number] i ty [facility] 4.2.7.2.686 [facility] [id number] [address] 2020-09-26 2020-09-26 Emergency Tricia Herbert [facility] [id number] 18:51:00 22:39:00 Lluvia Mejia [id number] [place] 4.2.7.2.686 [place] [id number] 2020-08-06 2020-08-06 Emergency Kami RIVERA, [facility] ERT [id number] Univers 10:13:00 12:49:[address] 2020-07-17 2020-07-17 Emergency Supa [place] Ravi [facility] 1.2.840 .114 [id number] [facility] 05:53:00 08:59:00 Dani Kauffman [id number] ity [facility] 4.2.7.2.686 [facility] [id number] [address] 2020-07-17 2020-07-17 Emergency Austin Cowart Ravi [facility] 1.2.840 [id number] 05:53:00 08:59:00 Kauffman, Dani Mejia [id number] [place] [address] [place] [address] [id number] [id number] Results Test Description Test Time Test Comments Results Result Comments Source RAPID STREP SCREEN FOR GROUP A 2020-12-31 07:59:00 Test Item Value Reference Range Interpretation Comme nts Streptococcus pyogenes (group A) antigen (test code = 08803- 2) Negative Negative Lab Interpretation (test code = 84393-5) Normal [facility] [id number] 18:21:18No acute findings. HISTORY:Head trauma, mod-severe hit left head, near syncope, persistentsevere headache and dizziness TECHNIQUE: Noncontrast head CT was performed. COMPARISON:None FINDINGS: The ventricles and sulci are appropriate for patient's age. There is no midline shift. The basal cisterns are preserved. No largevascular territory infarction, intracranial hemorrhage or mass effect isseen. The extracranial tissues demonstrate no acute findings. [facility], Radiant Results Inft User - 11/20/2020 1:22 PM CDT HISTORY:Head trauma, mod-severe hit left head, near syncope, persistentsevere headache and dizziness TECHNIQUE: Noncontrast head CT was performed.COMPARISON:NoneFINDINGS:The ventricles and sulci are appropriate for patient's age.There is no midline shift. The basal cisterns are preserved. No largevascular territory infarction, intracranial hemorrhage or mass effect isseen.The extracranial tissues demonstrate no acute findings.IMPRESSIONNo acute findings.[facility] METABOLIC PANEL (NA, K, CL, CO2, GLUCOSE, BUN, CREATININE, CA)2020-11-20 18:00:40 Test Item Value Reference Range Interpretation Comments NA (test code = 137 mmol/L 135-145 5897168900) K (test code = 4.2 mmol/L 3.5-5.0 1104107282) CL (test code = 104 mmol/L 98-108 6315579611) CO2 TOTAL (test code = 22 mmol/L 23-31 L 8353820955) AGAP (test code = 2-16 8262548650) BUN (test code = 10 mg/dL 7-23 3002691215) GLUCOSE (test code = 150 mg/dL 70-110 H 4569325563) CREATININE (test code = 0.59 mg/dL 0.50-1.04 4022271165) CALCIUM (test code = 9.5 mg/dL 8.6-10.6 9161531756) eGFR (test code = mL/min/1.73m2 2367924382) TOBI (test code = TOBI) Association of [...] tests). Lab Interpretation Abnormal (test code = 02540-8) [facility] [id number] 17:50:00 Test Item Value Reference Range Interpretation Comments POCT PREG (test code = 1605) negative On board controls acceptable with present C Line (test code = 3574) POCT PREG LOT # (test code = 3575) [id number] POCT PREG TEST DATE (test 05/27/2022 code = 3576) Lab Interpretation (test code = Normal 06026-1) [facility] WITH [id number] 17:32:17 Test Item Value Reference Range Interpretation Comments WBC (test code = See_Comment [Automated 9050-2) message] The sy stem which generated this result transmitted reference range : 4.30 - 11.10 10*3/?L. The reference range was not used to interpret this result as normal/abnormal . RBC (test code = See_Comment [Automated 901-2) message] The sy stem which generated this [...] RDW-SD (test code = 40.4 fL 39.0-49.9 93124-1) RDW-CV (test code = 13.0 % 12.0-15.5 788-0) PLT (test code = See_Comment H [Automated 777-3) message] The sy stem which generated this result transmitted reference range : 166 - 358 10*3/ ?L. The reference r shira was not used to interpret this result as normal/abnormal . MPV (test code = 9.5 fL 9.5-12.9 53961-2) NRBC/100 WBC (test See_Comment [Automat ed code = 4063315307) message] The system which generated this result transmitted reference range : 0.0 - 10.0 /100 WBCs. The refer ence range was not u sed to interpret th is result as normal/abnormal . NRBC x10^3 (test code <0.01 See_Comment [Auto mated = 4500256646) message] The s ystem which generated this result transmitted reference range : 10*3/?L. The reference range was not used to interpret this result as normal/abnormal . GRAN MAT (NEUT) % 83.0 % (test code = 770-8) IMM GRAN % (test code 0.70 % = 2581906301) LYMPH % (test code = 12.5 % 736-9) MONO % (test code = 3.7 % 5905-5) EOS % (test code = 0.0 % 713-8) BASO % (test code = 0.1 % 706-2) GRAN MAT x10^3(ANC) 8.41 10*3/uL 1.88-7.09 H (test code = 7696708560) IMM GRAN x10^3 (test 0.07 10*3/uL 0.00-0.06 H code = 7755846050) LYMPH x10^3 (test code 1.26 10*3/uL 1.32-3.29 L = 731-0) MONO x10^3 (test code 0.37 10*3/uL 0.33-0.92 = 742-7) EOS x10^3 (test code = <0.03 0.03-0.39 L 711-2) BASO x10^3 (test code <0.03 0.01-0.07 = 704-7) Lab Interpretation Abnormal (test code = 52350-3) [facility] [id number] 02:56:00 Test Item Value Reference Range Interpretation Comments POCT PREG (test code = 1605) negative On board controls acceptable with present C Line (test code = 3574) POCT PREG LOT # (test code = 3575) [id number] POCT PREG TEST DATE (test 02/25/2022 code = 3576) Lab Interpretation (test code = Normal 95976-3) [facility] DNA BY [id number] 14:24:00 Test Item Value Reference Range Interpretation Comments C. TRACHOMATIS DNA BY Negative Negative PCR (test code = CHLAMTDNA) N. GONORRHOEAE DNA BY Negative Negative Perfor med At: ST PCR (test code = [facility] James NGONORDNA) [id number] [facility] Ge[place]ani [place] [id number] Rodrigues MD Ph:[phone] - DUP AB/PEL/SC/[id number] 14:12:00 [facility] : 1995 Sex: F Patient Name: FATMATA DEGROOT Unit No: [id number] EXAMS: CPT CODE: [id number] DUP AB/PEL/SC/LTD 18557 PELVIC ULTRASOUND, 08/01/2020: COMPARISON: CT pelvis dated [...] Print D/T: S: 08/01/2020 (1415) The [facility] NAME: DEGROOT,FATMATA Radiology DepartmentPHYS: Winter Landaverde MD [address] : 1995 AGE: 24 SEX: F [place] [address] LOC: F.ERS PHONE #: [phone] EXAM DATE: 08/01/2020 STATUS: REG ER FAX #: [phone] RAD NO: Page 1 Signed Report Patient Name: FATMATA DEGROOT Unit No: [id number] EXAMS: CPT CODE: [id number] DUP AB/PEL/SC/LTD 16503 <Continued> [facility] NAME: DEGROOT,FATMATA Radiology Department PHYS: Winter Lanadverde MD [address] : 1995 AGE: 24 SEX: F [place] [address] LOC: SANDY PHONE #: [phone] DATE: 08/01/2020 STATUS: BALTAZAR LOVE FAX #: [phone] RAD NO: Page 2 Signed Report- US TRANSVAGINAL [id number] 14:12:00[facility] : 1995 Sex: F Patient Name: FATMATA DEGROOT Unit No: [id number] EXAMS: CPT CODE: [id number] US TRANSVAGINAL W/PELVIS 44730 PELVIC ULTRASOUND, 08/01/2020: COMPARISON: CT pelvis dated [...] Austin Barrera Technologist: Alexandra Elder RDMS Probe: [id number] Trnscrbd D/ (1412) LuisR.[email or web address] Orig Print D/T: S: 08/01/2020 (1415) [facility] NAME: FATMATA DEGROOT Radiology DepartmentPHYS: ELLISSalimaWinter Ortiz MD [address] : 1995 AGE: 24 SEX: F [place] [address] LOC: Saran.ERS PHONE #: [phone] EXAM DATE: 08/01/2020 STATUS: REG ER FAX #: [phone] RAD NO: Page 1 Signed Report Patient Name: FATMATA DEGROOT Unit No: [id number] EXAMS: CPT CODE: [id number] US TRANSVAGINAL W/PELVIS 70650 <Continued> [facility] NAME: DEGROOT,FATMATA Radiology Department PHYS: Jay Winter Wilkins MD [address] : 1995 AGE: 24 SEX: F [place], [place] [address] LOC: F.ERS PHONE #: [phone] DATE: 08/01/2020 STATUS: REG ER FAX #: [phone] RAD NO: Page 2 Signed Report- US PELVIS [id number] 14:12:00[facility] : 1995 Sex: F Patient Name: FATMATA DEGROOT Unit No: [id number] EXAMS: CPT CODE: [id number] US PELVIS COMPLETE 48901 PELVIC ULTRASOUND, 08/01/2020: COMPARISON: CT pelvis dated [...] Print D/T: S: 08/01/2020 (1415) [facility] NAME: FATMATA DEGROOT Radiology DepartmentPHYS: Winter Landaverde MD [address] : 1995 AGE: 24 SEX: F [place], [place] [address] LOC: ShaylaERS PHONE #: [phone] EXAM DATE: 08/01/2020 STATUS: REG ER FAX #: [phone] RAD NO: Page 1 Signed Report Patient Name: FATMATA DEGROOT Unit No: [id number] EXAMS: CPT CODE: [id number] US PELVIS COMPLETE 72680 <Continued> [facility] NAME: FATMATA DEGROOT Radiology Department PHYS: Winter Landaverde MD [address] : 1995 AGE: 24 SEX: F [place], [place] [address] LOC: SANDY PHONE #: [phone] DATE: 08/01/2020 STATUS: BALTAZAR LOVE FAX #: [phone] RAD NO: Page 2 Signed Report- CT ABD PELVIS W/O [id number] 10:58:00[facility] : 1995 Sex: F Patient Name: FATMATA DEGROOT Unit No: [id number] EXAMS: CPT CODE: [id number] CT ABD PELVIS W/O CONT 91716 CT ABDOMEN/CT STONE SURVEY WITHOUT CONTRAST, 08/01/2020 [...] right middle lobe pulmonary nodule. [facility] NAME: FATMATA DEGROOT Radiology Department PHYS: Winter Landaverde MD [address] : 1995 AGE: 24 SEX: F [place] [address] LOC: Saran.ERS PHONE #: [phone] EXAM DATE: 08/01/2020 STATUS: REG ER FAX #:[phone] RAD NO: Page 1 Signed Report 1 Patient Name: FATMATA DEGROOT Unit No: [id number] EXAMS: CPT CODE: [id number] CT ABD PELVIS W/O CONT 04316 <Continued> CT PELVIS WITHOUT CONTRAST: No opaque [...] Joe Agudelo MD CC: Winter Mccollum MD; [facility] Technologist: Art Church, RT, CT CTDI: 13.28 DLP: 653.43 Trnscrbd D/ (1058) t.[email or web address].AJ13 [facility] NAME: DEGROOTFATMATA Radiology Department PHYS: Winter Landaverde MD [address] : 1995 AGE: 24 SEX: F [place], [place] [address] LOC: Saran.ERS PHONE #: [phone] EXAM DATE: 08/01/2020 STATUS: REG ER FAX #: [phone] RAD NO: Page 2 Signed Report 1 Patient Name: FATMATA DEGROOT Unit No: [id number] EXAMS: CPT CODE: [id number] CT ABD PELVIS W/O CONT 86006 <Continued> Orig Print D/T: S: 08/01/2020 (1101) [facility] NAME: FATMATA DEGROOT Radiology Department PHYS: Winter Landaverde MD [address] : 1995 AGE: 24 SEX: F [place], [place] [address] LOC: SANDY PHONE #: [phone] EXAM DATE: 08/01/2020 STATUS: REG ER FAX #: [phone] RAD NO: Page 3 Signed Report 1UA RFLX MICR CULT IF [id number] 10:04:00 Test Item Value Reference Range Interpretation [...] culture: Suprapubic PainSpecimen Description: CLEAN CATCHUR HCG [id number] 10:04:00 Test Item Value Reference Range Interpretation [...] Description: CLEAN CATCHUA RFLX MICR CULT IF [id number] 10:03:00 Test Item Value Reference Range Interpretation [...] culture: Suprapubic PainSpecimen Description: CLEAN CATCHUR HCG [id number] 10:03:00 Test Item Value Reference Range Interpretation Comments UR HCG QUAL (test code = HCGQLU) Indication for culture: Suprapubic PainSpecimen Description: CLEAN CATCH [id number] 14:39:00 Test Item Value Reference Range Interpretation Comments APPEARANCE (test code = Hazy Clear A 0319100467) COLOR (test code = Yellow Yellow 6084226438) PH (test code = 4.8-8.0 7180572282) SP GRAVITY (test code = 1.003-1.030 5822816433) GLU U QUAL (test code = Normal Normal 3729071374) BLOOD (test code = Negative Negative INTERFERE NCE FROM 1404175389) ASCORBIC ACID M AY CAUSE FALSE NEG ATIVE RESULT KETONES (test code = Negative Negative 5459235539) PROTEIN (test code = Negative Negative 2887-8) UROBILIN (test code = Normal Normal 8252923615) BILIRUBIN (test code = Negative Negative 0874208093) NITRITE (test code = Negative Negative 8034387600) LEUK SILVINO (test code = Negative Negative 7012510387) RBC/HPF (test code = See_Comment [Autom ated message] 2516150522) The system [employer] generated this result transmitted ref erence range: 0 - 3 HP F. The reference range was not used to int erpret this result as normal/abnormal . WBC/HPF (test code = <1 See_Comment [Autom ated message] 6396877008) The system [employer] generated this result transmitted ref erence range: 0 - 5 HP F. The reference range was not used to int erpret this result as normal/abnormal . BACTERIA (test code = Few Negative A 2419381885) MUCOUS (test code = Slight Negative LPF A 4375742426) SQ EPITH (test code = HPF 6648166332) Lab Interpretation (test Abnormal code = 74409-7) [id number] 14:08:00 Test Item Value Reference Range Interpretation Comments POCT PREG (test code = 1605) negative On board controls acceptable with present C Line (test code = 3574) POCT PREG LOT # (test code = 3575) [id number] POCT PREG TEST DATE (test 2022-02-25 code = 3576) Lab Interpretation (test code = Normal 07589-9) [facility] WITH [id number] 12:41:00 Test Item Value Reference Range Interpretation Comments WBC (test code = See_Comment [Automated 5990-2) message] The sy stem which generated this [...] RDW-SD (test code = 40.8 fL 39-49.9 66070-9) RDW-CV (test code = 13.0 % 12-15.5 788-0) PLT (test code = See_Comment H [Automated 777-3) message] The sy stem which generated this result transmitted reference range : 166 - 358 10*3/ ?L. The reference r shira was not used to interpret this result as normal/abnormal . MPV (test code = 9.5 fL 9.5-12.9 25350-1) NRBC/100 WBC (test See_Comment [Automat ed code = 0208326667) message] The system which generated this result transmitted reference range : 0.0 - 10.0 /100 WBCs. The refer ence range was not u sed to interpret th is result as normal/abnormal . NRBC x10^3 (test code <0.01 See_Comment [Auto mated = 5566467407) message] The s ystem which generated this result transmitted reference range : 10*3/?L. The reference range was not used to interpret this result as normal/abnormal . GRAN MAT (NEUT) % 49.7 % (test code = 770-8) IMM GRAN % (test code 0.40 % = 7229627247) LYMPH % (test code = 37.6 % 736-9) MONO % (test code = 6.3 % 5905-5) EOS % (test code = 5.4 % 713-8) BASO % (test code = 0.6 % 706-2) GRAN MAT x10^3(ANC) 4.65 10*3/uL 1.88-7.09 (test code = 0558219254) IMM GRAN x10^3 (test 0.04 10*3/uL 0-0.06 code = 0297930561) LYMPH x10^3 (test code 3.52 10*3/uL 1.32-3.29 H = 731-0) MONO x10^3 (test code 0.59 10*3/uL 0.33-0.92 = 742-7) EOS x10^3 (test code = 0.51 10*3/uL 0.03-0.39 H 711-2) BASO x10^3 (test code 0.06 10*3/uL 0.01-0.07 = 704-7) Lab Interpretation Abnormal (test code = 44138-2) [facility] W/AUTO [id number] 07:27:00 Test Item Value Reference Range Interpretation [...] NORMAL code = PLTMR) AG HEPATITIS B [id number] 04:15:00 Test Item Value Reference Range Interpretation Comments AG HEPATITIS B SURFACE (test code NONREACTIVE NONREACTIVE = HBSAG) AB HEPATITIS C [id number] 04:15:00 Test Item Value Reference Range Interpretation Comments AB HEPATITIS C (test code = NONREACTIVE NONREACTIVE HCVAB) SIGNAL TO CUTOFF (test code = 0.13 <0.80 N CUTOFF) RUBELLA [id number] 04:15:00 Test Item Value Reference Range Interpretation Comments RUBELLA SCREEN 70.2 IUnit/ml Results >10. 0IUnits/ml (test code = are considered positive RUBSC) inaccordance wi th the CLSI guidelines and based on the WH [employer] S tandard for Anti-Rubell a serum as anindicator of immune status and a br eakpoint to detect mostseropositiv e persons. AB [id number] 04:15:00 Test Item Value Reference Range Interpretation Comments AB TREPONEMA (test code = TREPAB) NONREACTIVE NONREACTIVE AG HEPATITIS B [id number] 04:00:00 Test Item Value Reference Range Interpretation Comments AG HEPATITIS B SURFACE (test code NONREACTIVE NONREACTIVE = HBSAG) AB HEPATITIS C [id number] 04:00:00 Test Item Value Reference Range Interpretation Comments AB HEPATITIS C (test code = HCVAB) NONREACTIVE SIGNAL TO CUTOFF (test code = CUTOFF) <0.80 RUBELLA [id number] 04:00:00 Test Item Value Reference Range Interpretation Comments RUBELLA SCREEN 70.2 IUnit/ml Results >10. 0IUnits/ml (test code = are considered positive RUBSC) inaccordance wi th the CLSI guidelines and based on the O International S tandard for Anti-Rubell a serum as anindicator of immune status and a br eakpoint to detect mostseropositiv e persons. AB [id number] 04:00:00 Test Item Value Reference Range Interpretation Comments AB TREPONEMA (test code = TREPAB) NONREACTIVE NONREACTIVE CBC W/AUTO [id number] 00:36:00 Test Item Value Reference Range Interpretation [...]
--- NOTE | 2021-08-15 01:46 | ER ---
Nurse's Notes [facility] Name: Carla Duncan Age: 25 yrs Sex: Female : 1995 Arrival Date: 08/15/2021 Time: 00:34 Bed 11 Private MD: Diagnosis: Dyspnea Presentation: 08/15 00:53 Chief complaint: Patient states: C/O H/A, Right ear pain, states she experienced CP ll3 around 9 PM while at work, states it felt like an elephant sitting on chest, states it comes and goes but only last for seconds to minutes. Coronavirus screen: Vaccine status: Patient reports being unvaccinated. Ebola Screen: No symptoms or risks identified at this time. Initial Sepsis Screen: Does the patient meet any 2 criteria? No. Patient's initial sepsis screen is negative. Does the patient have a suspected source of infection? No. Patient's initial sepsis screen is negative. Risk Assessment: Do you want to hurt yourself or someone else? Patient reports no desire to harm self or others. Onset of symptoms is unknown. Care prior to arrival: Medication(s) given: Motrin, 600 mg, at 10 PM. 00:53 Method Of Arrival: Ambulatory ll3 00:53 Acuity: VENKATESH 3 ll3 Triage Assessment: 01:00 General: Appears in no apparent distress. comfortable, Behavior is calm, cooperative. ll3 Pain: Complains of pain in H/A Pain currently is 8 out of 10 on a pain scale. Cardiovascular: Patient's skin is warm and dry. Respiratory: Respiratory effort is even, unlabored, Respiratory pattern is regular, symmetrical. Derm: Skin is pink, warm \T\ dry. 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 - Social history:: Smoking status: Patient/guardian denies using tobacco. Screenin:53 Abuse screen: Denies threats or abuse. Nutritional screening: No deficits noted. sf1 Tuberculosis screening: No symptoms or risk factors identified. Fall Risk None identified. Assessment: 01:53 General: Appears in no apparent distress. Behavior is cooperative. Pain: Pain does not sf1 radiate. Pain began suddenly. Cardiovascular: Reports chest pain. Respiratory: No deficits noted. Vital Signs: 00:53 BP 125 / 94; Pulse 106; Resp 16; Temp 98.1(TE); Pulse Ox 100% ; Weight 92.53 kg (R); ll3 Height 5 ft. 0 in. (152.40 cm) (R); Pain 8/10; 00:53 Body Mass Index 39.84 (92.53 kg, 152.40 cm) ll3 ED Course: 00:34 Patient arrived in ED. 00:37 Francie Maynard FNP-C is PHCP. kb 00:37 Michael Yuan MD is Attending Physician. kb 01:00 Triage completed. ll3 01:00 Arm band placed on. ll3 01:13 Chest Single View XRAY In Process Unspecified. EDMS 01:16 Marimar Khan RN is Primary Nurse. sf1 01:53 Patient has correct armband on for positive identification. sf1 01:53 No provider procedures requiring assistance completed. Patient did not have IV access sf1 during this emergency room visit. Patient maintains SpO2 saturation greater than 95% on room air. Administered Medications: No medications were administered Outcome: 01:45 Discharge ordered by . kb 01:53 Discharged to home ambulatory. sf1 01:53 Condition: good 01:53 Discharge instructions given to patient, Instructed on discharge instructions, follow up and referral plans. Demonstrated understanding of instructions, follow-up care. 01:55 Patient left the ED. sf1 Signatures: Dispatcher [employer] EDTN Francie Maynard FNP-C FNP-Ckb Marsh, Wendy Yessy Kraus RN RN 3 Marimar Khan RN RN sf1
--- NOTE | 2021-08-15 01:46 | EDPHYS ---
Physician Documentation [facility] Name: Carla Duncan Age: 25 yrs Sex: Female : 1995 Arrival Date: 08/15/2021 Time: 00:34 Bed 11 Private MD: ED Physician Michael Yuan HPI: 08/15 00:54 This 25 yrs old Female presents to ER via Unassigned with complaints of Chest kb Pressure, Ear Pain. 00:54 The patient has shortness of breath during heavy activity. Onset: The symptoms/episode kb began/occurred 3 week(s) ago. Duration: The symptoms are intermittent. The patient's shortness of breath is aggravated by exertion. Associated signs and symptoms: The patient has no apparent associated signs or symptoms. Severity of symptoms: At their worst the symptoms were mild in the emergency department the symptoms have resolved. The patient has not experienced similar symptoms in the past. The patient has not recently seen a physician. Pt reports she has been getting short of breath after chasing after kids or any other strenuous activity, like her asthma is flaring up for 3 weeks. No symptoms at this time. 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 - Social history:: Smoking status: Patient/guardian denies using tobacco. ROS: 00:50 Constitutional: Negative for fever, chills, and weight loss. kb 00:50 Respiratory: Positive for shortness of breath. 00:50 All other systems are negative. Exam: 00:50 Constitutional: This is a well developed, well nourished patient who is awake, alert, kb and in no acute distress. Head/Face: Normocephalic, atraumatic. ENT: Moist Mucous membranes Cardiovascular: Regular rate and rhythm with a normal S1 and S2. No gallops, murmurs, or rubs. No pulse deficits. Respiratory: Respirations even and unlabored. No increased work of breathing. Talking in full sentences Skin: Warm, dry with normal turgor. Normal color. MS/ Extremity: Pulses equal, no cyanosis. Neurovascular intact. Full, normal range of motion. Neuro: Awake and alert, GCS 15, oriented to person, place, time, and situation. Moves all extremities. Normal gait. Psych: Awake, alert, with orientation to person, place and time. Behavior, mood, and affect are within normal limits. Vital Signs: 00:53 BP 125 / 94; Pulse 106; Resp 16; Temp 98.1(TE); Pulse Ox 100% ; Weight 92.53 kg (R); ll3 Height 5 ft. 0 in. (152.40 cm) (R); Pain 8/10; 00:53 Body Mass Index 39.84 (92.53 kg, 152.40 cm) ll3 MDM: 00:47 Patient medically screened. kb 00:50 Data reviewed: vital signs, nurses notes. Data interpreted: Pulse oximetry: on room air kb is 100 %. Interpretation: normal. Counseling: I had a detailed discussion with the patient and/or guardian regarding: the historical points, exam findings, and any diagnostic results supporting the discharge/admit diagnosis, radiology results, the need for outpatient follow up, a family practitioner, to return to the emergency department if symptoms worsen or persist or if there are any questions or concerns that arise at home. 08/15 00:47 Order name: Chest Single View XRAY 08/15 01:14 Order name: EKG; Complete Time: 01:14 kb 08/15 01:14 Order name: EKG - Nurse/Tech; Complete Time: 01:29 kb Administered Medications: No medications were administered Disposition Summary: 08/15/21 01:45 Discharge Ordered Location: Home kb Condition: Stable kb Diagnosis - Dyspnea kb Followup: kb - With: Emergency Department - When: As needed - Reason: Worsening of condition Followup: kb - With: Private Physician - When: 2 - 3 days - Reason: Recheck today's complaints, Continuance of care, Re-evaluation by your physician Discharge Instructions: - Discharge Summary Sheet kb - Shortness of Breath, Adult, [id number]-[id number]-[id number] kb Forms: - Medication Reconciliation Form kb - Thank You Letter kb - Antibiotic Education kb - Prescription Opioid Use kb Signatures: Dispatcher [employer] Francie Triana, DIRECTOR OF GRADUATE MEDICAL EDUCATION-C DIRECTOR OF GRADUATE MEDICAL EDUCATION-Ckb Yessy Kraus, RN RN ll3
[2021-08-15 04:12] VITALS: BP 125/94; TEMP 98.1; O2SAT 100
--- NOTE | 2021-08-15 13:04 | EKG ---
Test Date: 2021-08-15 Test Time: 01:23:59 Rheumatology Specialist: ONEIDA MEASUREMENT RESULTS: Intervals: Rate: 109 DC: 156 QRSD: 74 QT: 334 QTc: 449 [place]: P: 56 DC: 156 QRS: 73 T: 33 INTERPRETIVE STATEMENTS: Sinus tachycardia Cannot rule out Anterior infarct, age undetermined Abnormal ECG Compared to ECG 05/23/2021 23:06:11 Myocardial infarct finding now present Electronically Signed On 08-15-21 13:02:48 CNC MACHINE PROGRAMMER by Jatin Sandhu
--- NOTE | 2021-08-15 13:13 | RAD REPORT ---
EXAM DESCRIPTION: RAD - Chest Single View - 08/15/2021 1:13 am CLINICAL HISTORY: 33 years Female ABD PAIN, LMP: 07/13/2021, EGA: 4 weeks 5 days, ANDREZ: 04/19/2022 TECHNIQUE: Sonographic imaging of the pelvis was performed endovaginally on 08/15/2021 at 4: 06 AM COMPARISON: No prior studies were available for comparison. FINDINGS: The uterus is normal in size and configuration and measures: 7.1 x 3.9 x 5.1 cm. The end ometrial echo complex measures 0.4 cm in diameter. There is a small focal fluid collection in the end ometrial canal in the region of the uterine fundus with an average size of 0.43 cm corresponding to a gestational age of 5 weeks 1 day. There is no evidence of a pole or yolk sac at this time. The right ovary is grossly normal in size, shape and echogenicity and measures: 2.1 x 1.9 x 1.4 cm. There is normal pulsed and color Doppler flow to the right ovary. There are no right adnexal mass lesions.. The left ovary is grossly normal in size, shape and echogenicity and measures: 3.2 x 2.3 x 3.2 cm. There is normal pulsed and color Doppler flow to the left ovary. There is an anechoic mass arising fr om the left ovary with enhanced through transmission of sound most consistent with a simple cyst with a maximum dimension of 2.5 cm. No follow-up imaging is recommended. There are no left adnexal mass lesions.. There is a small volume of free fluid in the posterior cul-de-sac. IMPRESSION: 1. Small focal fluid collection in the endometrial canal which may represent an early ge stational sac corresponding to a gestational age of approximately 5 weeks 1 day. No pole or yol k sac is identified at this time. 2. Simple appearing left ovarian cyst with a maximum dimension of 2.5 cm. No follow-up imaging is rec ommended at this time. 3. Trace amount of free fluid in the posterior cul-de-sac. 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 The interpreting r adiologist is fully responsible for the content of the report.
== END 2021-08-15 01:55 | disposition home or self-care (01) ==
LOC: ER 00:20
DX: R06.00 Dyspnea, unspecified (principal); F31.9 Bipolar disorder, unspecified; Z88.1 Allergy status to other antibiotic agents
CPT/HCPCS: 71045; 93005; 99284

== ENCOUNTER 2021-10-15 14:28 | Emergency (ER) | payer OTHER ==
--- OUTSIDE RECORDS SUMMARY | 2021-10-15 14:32 | XMS REPORT | Continuity of Care Document ---
:1995 Author Organization [facility] t Address [address] Mcmanus. [address] [place] [address] Care Team Providers Name Role Phone Asked, Pcp Primary Care Physician Unavailable Gume CHANCE Attending Clinician Chapincito BUCHANAN S Attending Clinician Lluvia Rice Attending Clinician Geovani RIVERA Attending Clinician Unavailable Supa AREVALO, E Attending Clinician Singer FERNÁNDEZ Attending Clinician Geovani Barrera Admitting Clinician Unavailable Payers Payer Name Policy Type Policy Number Effective Date Expiration Date S ource HIM AMBETTER FROM [id number] 2020 [facility] 00:00:00 [employer] [place] [id number] 2019 00:00:00 Advance Directives Directive Decision Effective Termination Comments Source Date Date Healthcare Agents on N/A Univ ersity FileNameRelationshipHealthcare of [place] Agent Medical RelationshipCommunicationChTrinity Health TrevinioMotherHealth Care [phone] (Mobile)Pancho Williamswander Velascognificant OtherFirst Alternate [facility] [phone] (Mobile) [email or web address] Problems Condition Condition Condition Status Onset Resolution Last Treating Co mments Source Name Details Category Date Date Treatment Clinician Date Obesity Obesity Disease Active Univers (BMI (BMI 1-16 ity of 30-39.9) 30-39.9) 00:00: [place] 00 [facility] Urinary Urinary Disease Active Univers tract [...] nivers 5-23 ity of 00:00: [place] 00 [facility] Family Family Disease Active Univers history of history of 8-26 it y of spina spina 00:00: [place] bifida bifida 00 [facility] No known No known Disease Metho [...] 00 l of [place] codeine DA [place] 2018-0 [facility] [place] morphine DA Active U SWELLING 2018-0 [facility] 1[facility] [place] codeine [place] nausea, 2018- [facility] headache 1-19 [facility] 00:[facility]: [facility] [place] tramadol [place] 2017- [facility] 2-31 [facility] [place] tramadol [place] CHEST PAIN 2017- [facility] 2-31 [facility] 00:00: [...] Date Stop Date Source Natural mother Diabetes [facility] Natural mother Menstrual problems [facility] Social History Social Habit Start Date Stop Date Quantity Comments Source Exposure to Not sure [facility]2 [facility] [place] [facility] (event) Conrad Tobacco use and 2020-12-31 2020-12-31 Never used Universit y of exposure 00:00:00 00:00:00 [facility] Alcohol intake 2020-12-31 2020-12-31 Current [facility] 00:00:00 00:00:00 non-drinker of [facility] alcohol Conrad (finding) Alcohol Comment 2016-04-28 2016-04-28 social, weekly Metho [facility] 00:00:00 00:00:00 Sex Ass[birth year] At [birth year] Universit y of 00:00:00 00:00:00 [facility] [facility] Smoking Status Start Date Stop Date Source Never smoker [facility] Medications Ordered Filled Start Stop Current Ordering [...] NOW, 1 [place] tablet 00 :00 dose, [facility] Medical 1,000 mg 12/31/20 at Branch 0300, RODRICK ibuprofen Yes [id number] 800mg Take 1 U nivers 800 mg 12-31 tablet by ity of tablet 00:00: mouth [place] 00 every 8 Medical (eight) Branch hours as needed for Pain (scale 4-6). cyclobenzap Yes [id number] 10mg Take 1 Univers rine 10 mg [...] 1,000 mL 00 :00 IV Medical Infusion, Conrad ONCE, 1 dose, [facility] 11/[facility]/20 at 1530, STAT metoclopram No 10mg 10 mg, Uni vers dio HCl 11-20- Slow IV ity of (REGLAN) 20:15: 19:18 Push, [place] injection 00 :00 ONCE, 1 Medical 10 mg dose, [facility] 11/20/20 at 1515, RODRICK ketorolac 2020- No 30mg 30 mg, Unive rs (TORADOL) 11-20 Slow IV ity of injection 20:15: 19:18 Push, [place] 30 mg 00 :00 ONCE, 1 Medical dose, Wed Branch 11/20/20 at 1515, [facility] : JOHN RIVERA diphenhydrA 2020- No 25mg 25 mg, Uni vers MINE 11-20 Slow IV ity of (BENADRYL) 20:15: 20:15 Push, [place] injection 00 :00 ONCE, 1 Medical 25 mg dose, Wed Branch 11/20/20 at 1515, STAT butalbital- Yes 1{tbl} 1 tablet, Univers acetaminoph 11-20 Oral, ity of en-caff 18:12: Q4HPRN, [place] (ESGIC) 27 Starting Medical 50-325-40 Wed Branch mg tablet 1 11/20/20 at tablet 1312, Until Discontinu ed, Routine, zofran ketorolac 2020-0 Yes [id number] 10mg Take 1 Un carolann 10 mg 5-26 tablet by ity of tablet 00:00: mouth [place] 00 every 6 Medical (six) Branch hours as needed for Pain (scale 4-6). cyclobenzap 2020-0 Yes [id number] 10mg Take 1 Univers rine 10 mg 5-26 tablet by ity of tablet 00:00: mouth 3 [place] 00 (three) Medical times Branch daily. ketorolac 2020-0 Yes [id number] 10mg Take 1 Un carolann 10 mg 5-26 tablet by ity of tablet 00:00: mouth [place] 00 every 6 Medical (six) Branch hours as needed for Pain (scale 4-6). cyclobenzap 2020-0 Yes [id number] 10mg Take 1 Univers rine 10 mg 5-26 tablet by ity of tablet 00:00: mouth 3 [place] 00 (three) Medical times Branch daily. ketorolac 0 2020- No 30mg 30 mg, Unive rs (TORADOL) 09-27 04- Intramuscu ity of injection 03:45: 02:57 lar, ONCE, [place] 30 mg 00 :00 1 dose, Medical Elicia 4/1/21 Branch at 2245, RODRICK
[facility] member approving Restricted medication : Tricia HERBERT [...] 09/26/20 Branch at 2245, RODRICK ondansetron Yes [id number] 4mg Take 1 Univers (ZOFRAN 4-01 tablet by ity of ODT) 4 mg 00:00: mouth [place] disintegrat 00 every 8 Medic al ing tablet (eight) Branch hours as needed for Nausea and Vomiting (N/V). ondansetron Yes [id number] 4mg Take 1 Univers (ZOFRAN 4-01 tablet by ity of ODT) 4 mg 00:00: mouth [place] disintegrat 00 every 8 Medic al ing tablet (eight) Branch hours as needed for Nausea and Vomiting (N/V). ondansetron Yes [id number] 4mg Take 1 Univers (ZOFRAN 4-01 tablet by ity of ODT) 4 mg 00:00: mouth [place] disintegrat 00 every 8 Medic al ing tablet (eight) Branch hours as needed for Nausea and Vomiting (N/V). proMETHazin 0 Yes [id number] 25mg Take 1 Univers e 25 mg 2-09 tablet by ity of tablet 00:00: mouth [place] 00 every 6 Medical (six) Branch hours as needed for Nausea and Vomiting (N/V). proMETHazin 2020-0 Yes [id number] 25mg Take 1 Univers e 25 mg 2-09 tablet by ity of tablet 00:00: mouth [place] 00 every 6 Medical (six) Branch hours as needed for Nausea and Vomiting (N/V). proMETHazin 2020-0 Yes [id number] 25mg Take 1 Univers e 25 mg [...] Name Name Td 2011-06-28 Completed University 00:00:00 [facility] [facility] Td 2011-06-28 Completed University 00:00:00 [facility] [facility] Td 2011-06-28 Completed University 00:00:00 [facility] 2011-06-28 Completed [facility] 00:00:00 [facility] Vital Signs Vital Name Observation Time Observation Value Comments Source Systolic blood 2020-12-31 06:49:00 125 mm[Hg] Univer sity [facility] Diastolic blood 2020-12-31 06:49:00 93 mm[Hg] Unive rsity [facility] Heart rate 2020-12-31 06:49:00 104 /min [facility] Body temperature 2020-12-31 06:49:00 36.83 [place] [facility] Respiratory rate 2020-12-31 06:49:00 15 /min [facility] Body height 2020-12-31 06:49:00 152.4 cm [facility] Body weight 2020-12-31 06:49:00 92.5 kg [facility] BMI 2020-12-31 06:49:00 39.83 kg/m2 [facility] Oxygen saturation in 2020-12-31 06:49:00 99 /min [facility] Arterial blood by [facility] [place] [facility] Pulse oximetry Branch Systolic blood 2020-12-31 06:49:00 125 mm[Hg] Univer sity of [facility] Diastolic blood 2020-12-31 06:49:00 93 mm[Hg] Unive rsity of [facility] Heart rate 2020-12-31 06:49:00 104 /min [facility] [place] [facility] Body temperature 2020-12-31 06:49:00 36.83 [place] Univ ersity [facility] [place] [facility] Respiratory rate 2020-12-31 06:49:00 15 /min Univ [facility] [place] [facility] Body height 2020-12-31 06:49:00 152.4 cm [facility] [place] [facility] Body weight 2020-12-31 06:49:00 92.5 kg [facility] [place] [facility] BMI 2020-12-31 06:49:00 39.83 kg/m2 [facility] [place] [facility] Oxygen saturation in 2020-12-31 06:49:00 99 /min University of Arterial blood by [facility] [place] [facility] Pulse oximetry Branch Systolic blood 2020-11-20 19:58:00 146 mm[Hg] Univer sity of [facility] [place] [facility] Diastolic blood 2020-11-20 19:58:00 95 mm[Hg] Unive rsity of [facility] [place] [facility] Heart rate 2020-11-20 19:58:00 98 /min [facility]i ty [facility] [place] [facility] Body temperature 2020-11-20 19:58:00 37.17 [place] [facility] [place] [facility] Respiratory rate 2020-11-20 19:58:00 17 /min Univ [facility] [place] [facility] Oxygen saturation in 2020-11-20 19:58:00 100 /min University of Arterial blood by [facility] [place] [facility] Pulse oximetry Branch Body weight 2020-11-20 16:43:00 92.534 kg [facility] [place] [facility] BMI 2020-11-20 16:43:00 39.84 kg/m2 [facility] [place] [facility] Systolic blood 2020-11-20 19:58:00 146 mm[Hg] Univer sity of [facility] [place] [facility] Diastolic blood 2020-11-20 19:58:00 95 mm[Hg] Unive rsity of [facility] [place] [facility] Heart rate 2020-11-20 19:58:00 98 /min [facility] [place] [facility] Body temperature 2020-11-20 19:58:00 37.17 [place] Univ [facility] [place] [facility] Respiratory rate 2020-11-20 19:58:00 17 /min Univ [facility] [place] [facility] Oxygen saturation in 2020-11-20 19:58:00 100 /min University of Arterial blood by [facility] [place] [facility] Pulse oximetry Branch Body weight 2020-11-20 16:43:00 92.534 kg [facility] [place] [facility] BMI 2020-11-20 16:43:00 39.84 kg/m2 [facility] [place] [facility] Body height 2020-09-26 23:49:00 152.4 cm [facility] [place] [facility] Body weight 2020-09-26 23:49:00 90.719 kg [facility] [place] [facility] BMI 2020-09-26 23:49:00 39.06 kg/m2 [facility] [place] [facility] Systolic blood 2020-09-26 23:45:00 103 mm[Hg] Univer sity of [facility] [place] [facility] Diastolic blood 2020-09-26 23:45:00 62 mm[Hg] Unive rsity of [facility] [place] [facility] Heart rate 2020-09-26 23:45:00 107 /min [facility] ty [facility] [place] [facility] Body temperature 2020-09-26 23:45:00 36.61 [place] Univ [facility] [place] [facility] Respiratory rate 2020-09-26 23:45:00 18 /min Univ ersity [facility] [place] [facility] Oxygen saturation in 2020-09-26 23:45:00 97 /min University of Arterial blood by [facility] [place] [facility] Pulse oximetry Branch Body height 2020-09-26 23:49:00 152.4 cm [facility] [place] [facility] Body weight 2020-09-26 23:49:00 90.719 kg [facility] [place] [facility] BMI 2020-09-26 23:49:00 39.06 kg/m2 [facility] [place] [facility] Systolic blood 2020-09-26 23:45:00 103 mm[Hg] Univer sity of [facility] [place] [facility] Diastolic blood 2020-09-26 23:45:00 62 mm[Hg] Unive rsity of [facility] [place] [facility] Heart rate 2020-09-26 23:45:00 107 /min [facility] [place] [facility] Body temperature 2020-09-26 23:45:00 36.61 [place] Univ [facility] [place] [facility] Respiratory rate 2020-09-26 23:45:00 18 /min Univ ers[facility] [place] [facility] Oxygen saturation in 2020-09-26 23:45:00 97 /min University of Arterial blood by [facility] [place] [facility] Pulse oximetry Branch Systolic blood 2020-07-17 14:00:00 112 mm[Hg] Univer sity of [facility] [place] [facility] Diastolic blood 2020-07-17 14:00:00 65 mm[Hg] Unive rsity of [facility] [place] [facility] Heart rate 2020-07-17 14:00:00 86 /min [facility]i [facility] [place] [facility] Respiratory rate 2020-07-17 14:00:00 20 /min Univ ersity [facility] [place] [facility] Oxygen saturation in 2020-07-17 14:00:00 100 /min University of Arterial blood by [facility] [place] [facility] Pulse oximetry Branch Body temperature 2020-07-17 11:50:00 37.22 [place] [facility] ersity of [place] [facility] Body weight 2020-07-17 11:50:00 86.183 kg [facility] [place] [facility] BMI 2020-07-17 11:50:00 37.11 kg/m2 [facility] [place] [facility] Systolic blood 2020-07-17 14:00:00 112 mm[Hg] Univer sity of [facility] [place] [facility] Diastolic blood 2020-07-17 14:00:00 65 mm[Hg] Unive rsity of [facility] [place] [facility] Heart rate 2020-07-17 14:00:00 86 /min [facility]i ty [facility] [place] [facility] Respiratory rate 2020-07-17 14:00:00 20 /min Univ ersity [facility] [place] [facility] Oxygen saturation in 2020-07-17 14:00:00 100 /min University of Arterial blood by [facility] [place] [facility] Pulse oximetry Branch Body temperature 2020-07-17 11:50:00 37.22 [place] [facility] ersity of [place] [facility] Body weight 2020-07-17 11:50:00 86.183 kg [facility] [place] [facility] BMI 2020-07-17 11:50:00 37.11 kg/m2 [facility] [place] [facility] Procedures Procedure Date / Time Performed Performing Clinician Sour e RAPID STREP SCREEN FOR 2020-12-31 07:13:00 Akiko Dunaway [facility] GROUP A Medical Branch NOTICE OF PRIVACY 2020-12-31 06:34:54 Doctor Unassigned, No [facility] Name Medical Branch CONSENT/REFUSAL FOR 2020-12-31 06:34:35 Doctor Unassigned, No Un [facility]ity [facility] [place] DIAGNOSIS AND Name Medical Branch TREATMENT CT HEAD WO CONTRAST 2020-11-20 18:18:22 John Rivera [facility] POCT TEST 2020-11-20 17:50:00 John Rivera [facility] BASIC METABOLIC PANEL 2020-11-20 17:24:00 John Rivera [facility] (NA, K, CL, CO2, Medical Branch GLUCOSE, BUN, CREATININE, [place]) CBC WITH DIFF 2020-11-20 17:24:00 John Rivera [facility] CONSENT/REFUSAL FOR 2020-11-20 16:36:59 Doctor Unassigned, No Un iversity [facility] DIAGNOSIS AND Name [facility] TREATMENT POCT TEST 2020-09-27 02:56:00 Tricia Herbert [facility] ASSIGNMENT OF BENEFITS 2020-09-27 01:35:31 Doctor Unassigned, No [facility] CONSENT/REFUSAL FOR 2020-09-26 23:26:24 Doctor Unassigned, No [facility] [place] DIAGNOSIS AND Name [facility] TREATMENT URINALYSIS 2020-07-17 14:08:00 Austin Cowart [facility] POCT TEST 2020-07-17 14:08:00 Austin Cowart [facility] CBC WITH DIFF 2020-07-17 12:25:00 Austin Cowart [facility] NOTICE OF PRIVACY 2020-07-17 11:48:39 Doctor Unassigned, No [facility] Medical Conrad CONSENT/REFUSAL FOR 2020-07-17 11:44:41 Doctor Unassigned, No [facility] [place] DIAGNOSIS AND Name [facility] TREATMENT Plan of Care Planned Activity Planned Date Details Comments Source Future Scheduled Test Hepatitis C screening [facility] (procedure) [code = 312075499] Future Scheduled Test Screening for [facility] malignant neoplasm of cervix (procedure) [code = 241332527] Future Scheduled Test INFLUENZA VACCINE [facility] [code = INFLUENZA VACCINE] Future Scheduled Test COVID-19 VACCINE (1) [facility] [code = COVID-19 VACCINE (1)] Encounters Start End Encounter Admission Attending Care Care Encounter Source Date/Time Date/Time Type Type Clinicians Facility Department ID 2021-04-28 Emergency [facility] [id number] Univers 06:08:31 ity of [facility] 2021-04-27 Emergency [facility] [id number] Univers 21:27:31 ity [facility] 2021-04-27 Emergency [facility] [id number] Univers 10:13:04 ity of [facility] 2021-04-26 Emergency [facility] [id number] Univers 18:11:30 [facility] [place] [facility] 2020-08-01 Inpatient [facility] [id number] [facility] 09:14:00 [id number] [facility] 2020-12-31 2020-12-31 [facility] [id number] Univers 02:02:00 03:26:00 Akiko [place] [id number] i ty of [place] [id number] [facility] [id number] [address] 2020-12-31 2020-12-31 Emergency [facility] [id number] 02:02:00 03:26:00 Akiko [place] [id number] [place] 4.2.7.2.686 [place] [id number] [facility] 2020-11-20 2020-11-20 [facility] [id number] Univers 11:47:00 15:01:00 John S [place] [id number] i ty of [place] [id number] [facility] [id number] [address] 2020-11-20 2020-11-20 Emergency [place], [facility] [id number] 11:47:00 15:01:00 John S [place] [id number] [place] [id number] [place] [id number] [facility] 2020-09-26 2020-09-26 Emergency Tricia Herbert [facility] [id number] [facility] 18:51:00 22:39:00 Lluvia Mejia [id number] i ty [facility] [id number] [facility] [id number] [address] 2020-09-26 2020-09-26 Emergency Tricia Herbert [facility] [id number] 18:51:00 22:39:00 Lluvia Mejia [id number] [place] 4.2.7.2.686 [place] [id number] 2020-08-06 2020-08-06 Emergency Kami RIVERA, [facility] ERT [id number] Univers 10:13:00 12:49:00 JOHN [facility] [place] [facility] 2020-07-17 2020-07-17 Emergency Supa Austin Ravi [facility] 1.2.840 .114 [id number] [facility] 05:53:00 08:59:00 Dani Kauffman [id number] ity [facility] [id number] [facility] [id number] [address] 2020-07-17 2020-07-17 Emergency Austin Cowart Ravi [facility] 1.2.840 .114 [id number] 05:53:00 08:59:00 Kauffman, Dani Mejia [id number] [place] [id number] [place] [address] [id number] Results Test Description Test Time Test Comments Results Result Comments Source RAPID STREP SCREEN FOR GROUP A 2020-12-31 07:59:00 Test Item Value Reference Range Interpretation Comme nts Streptococcus pyogenes (group A) antigen (test code = 57450- 2) Negative Negative Lab Interpretation (test code = 08602-8) Normal [facility] WO [id number] 18:21:18No acute findings. HISTORY:Head trauma, mod-severe hit left head, near syncope, persistentsevere headache and dizziness TECHNIQUE: Noncontrast head CT was performed. COMPARISON:None FINDINGS: The ventricles and sulci are appropriate for patient's age. There is no midline shift. The basal cisterns are preserved. No largevascular territory infarction, intracranial hemorrhage or mass effect isseen. The extracranial tissues demonstrate no acute findings. [facility], Radiant Results Inft User - 11/20/2020 1:22 PM CDT HISTORY:Head trauma, mod-severe hit left head, near syncope, persistentsevere headache and dizziness TECHNIQUE: Noncontrast head CT was performed.COMPARISON:NoneFINDINGS:The ventricles and sulci are appropriate for patient's age.There is no midline shift. The basal cisterns are preserved. No largevascular territory infarction, intracranial hemorrhage or mass effect isseen.The extracranial tissues demonstrate no acute findings.IMPRESSIONNo acute findings.[facility] METABOLIC PANEL (NA, K, CL, CO2, GLUCOSE, BUN, CREATININE, CA)2020-11-20 18:00:40 Test Item Value Reference Range Interpretation Comments NA (test code = 137 mmol/L 135-145 4140357686) K (test code = 4.2 mmol/L 3.5-5.0 5553074804) CL (test code = 104 mmol/L 98-108 5975101959) CO2 TOTAL (test code = 22 mmol/L 23-31 L 6017690897) AGAP (test code = 2-16 3626621142) BUN (test code = 10 mg/dL 7-23 7996934835) GLUCOSE (test code = 150 mg/dL 70-110 H 8994911646) CREATININE (test code = 0.59 mg/dL 0.50-1.04 9606992782) CALCIUM (test code = 9.5 mg/dL 8.6-10.6 6518609648) eGFR (test code = mL/min/1.73m2 0994885272) TOBI (test code = TOBI) Association of [...] tests). Lab Interpretation Abnormal (test code = 70162-6) [facility] [id number] 17:50:00 Test Item Value Reference Range Interpretation Comments POCT PREG (test code = 1605) negative On board controls acceptable with present C Line (test code = 3574) POCT PREG LOT # (test code = 3575) [id number] POCT PREG TEST DATE (test 05/27/2022 code = 3576) Lab Interpretation (test code = Normal 21964-7) [facility] WITH [id number] 17:32:17 Test Item Value Reference Range Interpretation Comments WBC (test code = See_Comment [Automated 3501-2) message] The sy stem which generated this result transmitted reference range : 4.30 - 11.10 10*3/?L. The reference range was not used to interpret this result as normal/abnormal . RBC (test code = See_Comment [Automated 934-3) message] The sy stem which generated this [...] RDW-SD (test code = 40.4 fL 39.0-49.9 51517-6) RDW-CV (test code = 13.0 % 12.0-15.5 788-0) PLT (test code = See_Comment H [Automated 777-3) message] The sy stem which generated this result transmitted reference range : 166 - 358 10*3/ ?L. The reference r shira was not used to interpret this result as normal/abnormal . MPV (test code = 9.5 fL 9.5-12.9 95861-1) NRBC/100 WBC (test See_Comment [Automat ed code = 0917036907) message] The system which generated this result transmitted reference range : 0.0 - 10.0 /100 WBCs. The refer ence range was not u sed to interpret th is result as normal/abnormal . NRBC x10^3 (test code <0.01 See_Comment [Auto mated = 9104186771) message] The s ystem which generated this result transmitted reference range : 10*3/?L. The reference range was not used to interpret this result as normal/abnormal . GRAN MAT (NEUT) % 83.0 % (test code = 770-8) IMM GRAN % (test code 0.70 % = 8973995463) LYMPH % (test code = 12.5 % 736-9) MONO % (test code = 3.7 % 5905-5) EOS % (test code = 0.0 % 713-8) BASO % (test code = 0.1 % 706-2) GRAN MAT x10^3(ANC) 8.41 10*3/uL 1.88-7.09 H (test code = 0352560027) IMM GRAN x10^3 (test 0.07 10*3/uL 0.00-0.06 H code = 6083771100) LYMPH x10^3 (test code 1.26 10*3/uL 1.32-3.29 L = 731-0) MONO x10^3 (test code 0.37 10*3/uL 0.33-0.92 = 742-7) EOS x10^3 (test code = <0.03 0.03-0.39 L 711-2) BASO x10^3 (test code <0.03 0.01-0.07 = 704-7) Lab Interpretation Abnormal (test code = 08559-9) [facility] [id number] 02:56:00 Test Item Value Reference Range Interpretation Comments POCT PREG (test code = 1605) negative On board controls acceptable with present C Line (test code = 3574) POCT PREG LOT # (test code = 3575) [id number] POCT PREG TEST DATE (test 02/25/2022 code = 3576) Lab Interpretation (test code = Normal 58344-8) [facility] Falls[facility]LAMYDIA GC DNA BY [id number] 14:24:00 Test Item Value Reference Range Interpretation Comments C. TRACHOMATIS DNA BY Negative Negative PCR (test code = CHLAMTDNA) N. GONORRHOEAE DNA BY Negative Negative Perfor med At: ST PCR (test code = [facility] James NGONORDNA) [id number] [facility] [place] [id number] Rodrigues MD Ph:[phone] - DUP AB/PEL/SC/[id number] 14:12:00 [facility] [facility] 1995 Sex: F Patient Name: FATMATA DEGROOT Unit No: [id number] EXAMS: CPT CODE: [id number] DUP AB/PEL/SC/LTD 00380 PELVIC ULTRASOUND, 08/01/2020: COMPARISON: CT pelvis dated [...] 08/01/2020 (1415) [facility] NAME: DEGROOT,FATMATA Radiology DepartmentPHYS: Winter Landaverde MD [address] : 1995 AGE: 24 SEX: F [place] [address] LOC: F.ERS PHONE #: [phone] EXAM DATE: 08/01/2020 STATUS: REG ER FAX #: [phone] RAD NO: Page 1 Signed Report Patient Name: FATMATA DEGROOT Unit No: [id number] EXAMS: CPT CODE: [id number] DUP AB/PEL/SC/LTD 89781 <Continued> [facility] NAME: DEGROOT,FATMATA Radiology Department PHYS: Winter Landaverde MD [address] : 1995 AGE: 24 SEX: F [place] [address] LOC: SANDY PHONE #: [phone] DATE: 08/01/2020 STATUS: BALTAZAR LOVE FAX #: [phone] RAD NO: Page 2 Signed Report- US TRANSVAGINAL [id number] 14:12:00[facility] : 1995 Sex: F Patient Name: FATMATA DEGROOT Unit No: [id number] EXAMS: CPT CODE: [id number] US TRANSVAGINAL W/PELVIS 58915 PELVIC ULTRASOUND, 08/01/2020: COMPARISON: CT pelvis dated [...] Austin Barrera Technologist: Alexandra Elder RDMS Probe: [id number] Trnscrbd D/ (1412) [email or web address] Orig Print D/T: S: 08/01/2020 (1415) [facility] NAME: FATMATA DEGROOT Radiology DepartmentPHYS: ELLISSalimaWinter Ortiz MD [address] : 1995 AGE: 24 SEX: F [place] [address] LOC: Saran.ERS PHONE #: [phone] EXAM DATE: 08/01/2020 STATUS: REG ER FAX #: [phone] RAD NO: Page 1 Signed Report Patient Name: FATMATA DEGROOT Unit No: [id number] EXAMS: CPT CODE: [id number] US TRANSVAGINAL W/PELVIS 08535 <Continued> [facility] NAME: DEGROOT,FATMATA Radiology Department PHYS: Jay Winter Wilkins MD [address] : 1995 AGE: 24 SEX: F [place], [place] [address] LOC: F.ERS PHONE #: [phone] DATE: 08/01/2020 STATUS: REG ER FAX #: [phone] RAD NO: Page 2 Signed Report- US PELVIS [id number] 14:12:00[facility] : 1995 Sex: F Patient Name: FATMATA DEGROOT Unit No: [id number] EXAMS: CPT CODE: [id number] US PELVIS COMPLETE 56018 PELVIC ULTRASOUND, 08/01/2020: COMPARISON: CT pelvis dated [...] (1415) [facility] NAME: FATMATA DERGOOT Radiology DepartmentPHYS: Winter Landaverde MD [address] : 1995 AGE: 24 SEX: F [place], [place] [address] LOC: ShaylaERS PHONE #: [phone] EXAM DATE: 08/01/2020 STATUS: REG ER FAX #: [phone] RAD NO: Page 1 Signed Report Patient Name: FATMATA DEGROOT Unit No: [id number] EXAMS: CPT CODE: [id number] US PELVIS COMPLETE 47503 <Continued> [facility] NAME: FATMATA DEGROOT Radiology Department PHYS: Winter Landaverde MD [address] : 1995 AGE: 24 SEX: F [place], [place] [address] LOC: SANDY PHONE #: [phone] DATE: 08/01/2020 STATUS: BALTAZAR LOVE FAX #: [phone] RAD NO: Page 2 Signed Report- CT ABD PELVIS W/O [id number] 10:58:00[facility] : 1995 Sex: F Patient Name: FATMATA DEGROOT Unit No: [id number] EXAMS: CPT CODE: [id number] CT ABD PELVIS W/O CONT 21031 CT ABDOMEN/CT STONE SURVEY WITHOUT CONTRAST, 08/01/2020 [...] [address] : 1995 AGE: 24 SEX: F [place] [address] LOC: Saran.ERS PHONE #: [phone] EXAM DATE: 08/01/2020 STATUS: REG ER FAX #:[phone] RAD NO: Page 1 Signed Report 1 Patient Name: FATMATA DEGROOT Unit No: [id number] EXAMS: CPT CODE: [id number] CT ABD PELVIS W/O CONT 80315 <Continued> CT PELVIS WITHOUT CONTRAST: No opaque [...] Joe Agudelo MD CC: Winter Mccollum MD; [facility] Technologist: Art Church, RT, CT CTDI: 13.28 DLP: 653.43 Trnscrbd D/ (1058) [email or web address] [facility] NAME: DEGROOTFATMATA Radiology Department PHYS: Winter Landaverde MD [address] : 1995 AGE: 24 SEX: F [place], [place] [address] LOC: Saran.ERS PHONE #: [phone] EXAM DATE: 08/01/2020 STATUS: REG ER FAX #: [phone] RAD NO: Page 2 Signed Report 1 Patient Name: FATMATA DEGROOT Unit No: [id number] EXAMS: CPT CODE: [id number] CT ABD PELVIS W/O CONT 23883 <Continued> Orig Print D/T: S: 08/01/2020 (1101) [facility] NAME: FATMATA DEGROOT Radiology Department PHYS: Winter Landaverde MD [address] : 1995 AGE: 24 SEX: F [place], [place] [address] LOC: SANDY PHONE #: [phone] EXAM DATE: 08/01/2020 STATUS: REG ER FAX #: [phone] RAD NO: Page 3 Signed Report 1UA RFLX MICR CULT IF [id number] 10:04:00 Test Item Value Reference Range Interpretation [...] culture: Suprapubic PainSpecimen Description: CLEAN CATCHUR HCG [id number] 10:04:00 Test Item Value Reference Range Interpretation [...] Description: CLEAN CATCHUA RFLX MICR CULT IF [id number] 10:03:00 Test Item Value Reference Range Interpretation [...] culture: Suprapubic PainSpecimen Description: CLEAN CATCHUR HCG [id number] 10:03:00 Test Item Value Reference Range Interpretation Comments UR HCG QUAL (test code = HCGQLU) Indication for culture: Suprapubic PainSpecimen Description: CLEAN CATCH [id number] 14:39:00 Test Item Value Reference Range Interpretation Comments APPEARANCE (test code = Hazy Clear A 0292708766) COLOR (test code = Yellow Yellow 4195915055) PH (test code = 4.8-8.0 5532350557) SP GRAVITY (test code = 1.003-1.030 9174646737) GLU U QUAL (test code = Normal Normal 2404359914) BLOOD (test code = Negative Negative INTERFERE NCE FROM 7043558705) ASCORBIC ACID M AY CAUSE FALSE NEG ATIVE RESULT KETONES (test code = Negative Negative 2410330324) PROTEIN (test code = Negative Negative 2887-8) UROBILIN (test code = Normal Normal 4107525880) BILIRUBIN (test code = Negative Negative 5647611864) NITRITE (test code = Negative Negative 3737273722) LEUK SILVINO (test code = Negative Negative 9990773560) RBC/HPF (test code = See_Comment [Autom ated message] 4377779787) The system [employer] generated this result transmitted ref erence range: 0 - 3 HP F. The reference range was not used to int erpret this result as normal/abnormal . WBC/HPF (test code = <1 See_Comment [Autom ated message] 5609432140) The system [employer] generated this result transmitted ref erence range: 0 - 5 HP F. The reference range was not used to int erpret this result as normal/abnormal . BACTERIA (test code = Few Negative A 6762400308) MUCOUS (test code = Slight Negative LPF A 3428298522) SQ EPITH (test code = HPF 6419267057) Lab Interpretation (test Abnormal code = 51487-8) [facility] [id number] 14:08:00 Test Item Value Reference Range Interpretation Comments POCT PREG (test code = 1605) negative On board controls acceptable with present C Line (test code = 3574) POCT PREG LOT # (test code = 3575) [id number] POCT PREG TEST DATE (test 2022-02-25 code = 3576) Lab Interpretation (test code = Normal 87413-0) [facility] WITH [id number] 12:41:00 Test Item Value Reference Range Interpretation Comments WBC (test code = See_Comment [Automated 7190-2) message] The sy stem which generated this [...] RDW-SD (test code = 40.8 fL 39-49.9 58269-4) RDW-CV (test code = 13.0 % 12-15.5 788-0) PLT (test code = See_Comment H [Automated 777-3) message] The sy stem which generated this result transmitted reference range : 166 - 358 10*3/ ?L. The reference r shira was not used to interpret this result as normal/abnormal . MPV (test code = 9.5 fL 9.5-12.9 93339-3) NRBC/100 WBC (test See_Comment [Automat ed code = 8920700203) message] The system which generated this result transmitted reference range : 0.0 - 10.0 /100 WBCs. The refer ence range was not u sed to interpret th is result as normal/abnormal . NRBC x10^3 (test code <0.01 See_Comment [Auto mated = 3892483853) message] The s ystem which generated this result transmitted reference range : 10*3/?L. The reference range was not used to interpret this result as normal/abnormal . GRAN MAT (NEUT) % 49.7 % (test code = 770-8) IMM GRAN % (test code 0.40 % = 1052281453) LYMPH % (test code = 37.6 % 736-9) MONO % (test code = 6.3 % 5905-5) EOS % (test code = 5.4 % 713-8) BASO % (test code = 0.6 % 706-2) GRAN MAT x10^3(ANC) 4.65 10*3/uL 1.88-7.09 (test code = 7916573714) IMM GRAN x10^3 (test 0.04 10*3/uL 0-0.06 code = 7556177651) LYMPH x10^3 (test code 3.52 10*3/uL 1.32-3.29 H = 731-0) MONO x10^3 (test code 0.59 10*3/uL 0.33-0.92 = 742-7) EOS x10^3 (test code = 0.51 10*3/uL 0.03-0.39 H 711-2) BASO x10^3 (test code 0.06 10*3/uL 0.01-0.07 = 704-7) Lab Interpretation Abnormal (test code = 44725-4) [facility] W/AUTO [id number] 07:27:00 Test Item Value Reference Range Interpretation [...] NORMAL code = PLTMR) AG HEPATITIS B [id number] 04:15:00 Test Item Value Reference Range Interpretation Comments AG HEPATITIS B SURFACE (test code NONREACTIVE NONREACTIVE = HBSAG) AB HEPATITIS C [id number] 04:15:00 Test Item Value Reference Range Interpretation Comments AB HEPATITIS C (test code = NONREACTIVE NONREACTIVE HCVAB) SIGNAL TO CUTOFF (test code = 0.13 <0.80 N CUTOFF) RUBELLA [id number] 04:15:00 Test Item Value Reference Range Interpretation Comments RUBELLA SCREEN 70.2 IUnit/ml Results >10. 0IUnits/ml (test code = are considered positive RUBSC) inaccordance wi th the CLSI guidelines and based on the [employer] S tandard for Anti-Rubell a serum as anindicator of immune status and a br eakpoint to detect mostseropositiv e persons. AB [id number] 04:15:00 Test Item Value Reference Range Interpretation Comments AB TREPONEMA (test code = TREPAB) NONREACTIVE NONREACTIVE AG HEPATITIS B [id number] 04:00:00 Test Item Value Reference Range Interpretation Comments AG HEPATITIS B SURFACE (test code NONREACTIVE NONREACTIVE = HBSAG) AB HEPATITIS C [id number] 04:00:00 Test Item Value Reference Range Interpretation Comments AB HEPATITIS C (test code = HCVAB) NONREACTIVE SIGNAL TO CUTOFF (test code = CUTOFF) <0.80 RUBELLA [id number] 04:00:00 Test Item Value Reference Range Interpretation Comments RUBELLA SCREEN 70.2 IUnit/ml Results >10. 0IUnits/ml (test code = are considered positive RUBSC) inaccordance wi th the CLSI guidelines and based on the O [employer] S tandard for Anti-Rubell a serum as anindicator of immune status and a br eakpoint to detect mostseropositiv e persons. AB [id number] 04:00:00 Test Item Value Reference Range Interpretation Comments AB TREPONEMA (test code = TREPAB) NONREACTIVE NONREACTIVE CBC W/AUTO [id number] 00:36:00 Test Item Value Reference Range Interpretation [...]
[2021-10-15 16:08] LABS: Urine Blood Trace-lysed (Negative); Urine Glucose Negative (Negative); Urine Protein Negative (Negative); Urine Specific Gravity 1.015 (1.005-1.030)
[2021-10-15] MEDS ORDERED: DIPHENHYDRAMINE 50 MG/ML VIAL ONE (16:51)
[2021-10-15] MEDS ORDERED: METOCLOPRAMIDE 10 MG/2mL INJ ONE (16:51)
[2021-10-15] MEDS ORDERED: MECLIZINE HCL 12.5 MG TAB ONE (16:52)
[2021-10-15] MEDS ORDERED: NA CHLORIDE 0.9% 1,000 ML ONE (16:52)
[2021-10-15] MEDS ORDERED: ONDANSETRON 4 MG/2 ML VIAL ONE (16:52)
[2021-10-15 16:53] LABS: Urine Specific Gravity/Preg 1.015 (1.005-1.030)
--- NOTE | 2021-10-15 18:18 | ER ---
Nurse's Notes [facility] Name: Carla Duncan Age: 26 yrs Sex: Female : 1995 Arrival Date: 10/15/2021 Time: 14:39 Bed 25 Private MD: Diagnosis: Headache Presentation: 10/15 14:56 Chief complaint: Patient states: migraine x 4 days with nausea; states vomited today x vg1 1. Also states lightheaded and STEVEN ear pain. Coronavirus screen: Vaccine status: Patient reports being unvaccinated. Client denies travel out of the [place] in the last 14 days. Ebola Screen: Patient negative for fever greater than or equal to 101.5 degrees Fahrenheit, and additional compatible Ebola Virus Disease symptoms. Initial Sepsis Screen: Does the patient meet any 2 criteria? No. Patient's initial sepsis screen is negative. Does the patient have a suspected source of infection? No. Patient's initial sepsis screen is negative. Risk Assessment: Do you want to hurt yourself or someone else? Patient reports no desire to harm self or others. Onset of symptoms was October 11, 2021. 14:56 Method Of Arrival: Ambulatory vg1 14:56 Acuity: VENKATESH 3 vg1 Triage Assessment: 14:58 Headache History: The patient has had previous headaches and this one is more severe vg1 than previous episodes. General: Appears in no apparent distress. uncomfortable, Behavior is calm, cooperative. Pain: Complains of pain in head Pain currently is 10 out of 10 on a pain scale. Pain began 4 days ago Also complains of nausea, photophobia. Neuro: Level of Consciousness is awake, alert, obeys commands, Oriented to person, place, time, situation, Reports dizziness, headache photophobia. 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 - Social history:: Smoking status: Patient denies any tobacco usage or history of. Screenin:30 Abuse screen: Denies threats or abuse. Nutritional screening: No deficits noted. jb4 Tuberculosis screening: No symptoms or risk factors identified. Fall Risk None identified. Assessment: 15:30 General: Appears in no apparent distress. comfortable, Behavior is calm, cooperative, jb4 appropriate for age. Pain: Denies pain. Neuro: Level of Consciousness is awake, alert, obeys commands, Oriented to person, place, time, situation, Reports dizziness. Cardiovascular: Patient's skin is warm and dry. Respiratory: Airway is patent Respiratory effort is even, unlabored, Respiratory pattern is regular, symmetrical. GI: No signs and/or symptoms were reported involving the gastrointestinal system. : No signs and/or symptoms were reported regarding the genitourinary system. EENT: No signs and/or symptoms were reported regarding the EENT system. Derm: Skin is intact, Skin is pink, warm \T\ dry. Musculoskeletal: Circulation, motion, and sensation intact. Range of motion: intact in all extremities. 16:30 Reassessment: Patient appears in no apparent distress at this time. Patient and/or jb4 family updated on plan of care and expected duration. Pain level reassessed. Patient is alert, oriented x 3, equal unlabored respirations, skin warm/dry/pink. 18:54 Reassessment: Patient appears in no apparent distress at this time. Patient and/or jb4 family updated on plan of care and expected duration. Pain level reassessed. Patient is alert, oriented x 3, equal unlabored respirations, skin warm/dry/pink. Vital Signs: 14:56 BP 110 / 72; Pulse 85; Resp 16; Temp 98.6; Pulse Ox 100% ; Weight 90.72 kg; Height 5 vg1 ft. 0 in. (152.40 cm); Pain 10/10; 18:54 BP 112 / 69; Pulse 69; Resp 16; Pulse Ox 99% on R/A; jb4 14:56 Body Mass Index 39.06 (90.72 kg, 152.40 cm) vg1 ED Course: 14:39 Patient arrived in ED. am2 14:55 Michael Dowd PA is PHCP. cp 14:55 Michael Yuan MD is Attending Physician. cp 14:58 Triage completed. vg1 14:58 Arm band placed on. vg1 15:23 Luther Crump, RN is Primary Nurse. jb4 15:30 Patient has correct armband on for positive identification. Bed in low position. Call jb4 light in reach. Side rails up X 1. Pulse ox on. NIBP on. 15:30 No provider procedures requiring assistance completed. IV discontinued, intact, jb4 bleeding controlled, No redness/swelling at site. Pressure dressing applied. 16:42 Inserted saline lock: 20 gauge in left antecubital area, using aseptic technique. zm Administered Medications: 16:38 Not Given (Patient Refused): Decadron - Dexamethasone 10 mg IVP once jb4 17:01 Drug: Meclizine 25 mg Route: PO; jb4 18:56 Follow up: Response: No adverse reaction; Marked relief of symptoms jb4 17:01 Drug: Reglan (metoCLOPramide) 10 mg Route: IVP; Site: left antecubital; jb4 18:55 Follow up: Response: No adverse reaction; Marked relief of symptoms jb4 17:01 Drug: Zofran (Ondansetron) 4 mg Route: IVP; Site: left antecubital; jb4 18:55 Follow up: Response: No adverse reaction; Marked relief of symptoms jb4 17:01 Drug: NS 0.9% 1000 ml Route: IV; Rate: 1 bolus; Site: left antecubital; jb4 18:00 Follow up: Response: No adverse reaction; IV Status: Completed infusion jb4 17:01 Drug: Benadryl (diphenhydrAMINE) 25 mg Route: IVP; Site: left antecubital; jb4 18:55 Follow up: Response: No adverse reaction; Marked relief of symptoms jb4 Outcome: 18:17 Discharge ordered by . trudi 18:55 Discharged to home ambulatory. jb4 18:55 Condition: stable 18:55 Discharge instructions given to patient, Instructed on discharge instructions, follow up and referral plans. medication usage, Demonstrated understanding of instructions, follow-up care, medications, Prescriptions given X 2. 18:56 Patient left the ED. jb4 Signatures: Michael Dowd PA PA cp Bryson, James, RN RN jb4 Leigh Ann Agee Victoria RN RN 1 Jennifer Lopez
--- NOTE | 2021-10-15 18:18 | EDPHYS ---
Physician Documentation [facility] Name: Carla Duncan Age: 26 yrs Sex: Female : 1995 Arrival Date: 10/15/2021 Time: 14:39 Bed 25 Private MD: ED Physician Michael Yuan HPI: 10/15 15:59 This 26 yrs old Female presents to ER via Ambulatory with complaints of cp Headache, Dizziness, Ear Pain. 15:59 The patient complains of pain to the left side of head. The patient describes the cp headache as aching. Onset: The symptoms/episode began/occurred yesterday. Associated signs and symptoms: Pertinent positives: dizziness, nausea, vomiting, ear pain, Pertinent negatives: fever, neck stiffness. 16:00 Severity of symptoms: in the emergency department the pain is unchanged, despite home cp interventions. Headache History: Other history of migraines but this headache in different location. 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 - Social history:: Smoking status: Patient denies any tobacco usage or history of. ROS: 16:05 Constitutional: Negative for body aches, chills, fever, poor PO intake. cp 16:05 Eyes: Negative for injury, pain, redness, and discharge. cp 16:05 ENT: Positive for ear pain, Negative for drainage from ear(s), sinus congestion, sinus pain, sore throat, difficulty swallowing, difficulty handling secretions. 16:05 Neck: Negative for pain with movement, pain at rest, stiffness. 16:05 Cardiovascular: Negative for chest pain, palpitations. 16:05 Respiratory: Negative for cough, shortness of breath, wheezing. 16:05 Abdomen/GI: Positive for nausea and vomiting, Negative for abdominal pain, diarrhea, constipation. 16:05 Skin: Negative for cellulitis, rash. 16:05 Neuro: Positive for dizziness, headache, Negative for altered mental status, numbness, weakness. 16:05 All other systems are negative. Exam: 16:10 Constitutional: The patient appears in no acute distress, alert, awake, cp non-diaphoretic, non-toxic, well developed, well nourished. 16:10 Head/Face: Normocephalic, atraumatic. cp 16:10 Eyes: Periorbital structures: appear normal, Pupils: equal, round, and reactive to light and accomodation, Extraocular movements: intact throughout, Conjunctiva: normal, no exudate, no injection, Sclera: no appreciated abnormality, Lids and lashes: appear normal, bilaterally. 16:10 ENT: External ear(s): are unremarkable, Ear canal(s): are normal, clear, TM's: dullness, bilaterally, Nose: is normal, Mouth: Lips: moist, Oral mucosa: pink and intact, moist, Posterior pharynx: Airway: no evidence of obstruction, patent, Tonsils: no enlargement, no erythema, no exudate, erythema, is not appreciated, exudate, is not appreciated. 16:10 Neck: ROM/movement: is normal, is supple, without pain, no range of motions limitations, no meningismus, Lymph nodes: no appreciated lymphadenopathy. 16:10 Chest/axilla: Inspection: normal. 16:10 Cardiovascular: Rate: normal, Rhythm: regular. 16:10 Respiratory: the patient does not display signs of respiratory distress, Respirations: normal, no use of accessory muscles, no retractions, labored breathing, is not present, Breath sounds: are clear throughout, no decreased breath sounds. 16:10 Abdomen/GI: Exam negative for discomfort, distension, guarding, Inspection: abdomen appears normal. 16:10 Neuro: Orientation: to person, place \T\ time. Mentation: is normal, Cerebellar function: Romberg testing is negative, Motor: moves all fours, strength is normal, Sensation: is normal. Vital Signs: 14:56 BP 110 / 72; Pulse 85; Resp 16; Temp 98.6; Pulse Ox 100% ; Weight 90.72 kg; Height 5 vg1 ft. 0 in. (152.40 cm); Pain 10/10; 18:54 BP 112 / 69; Pulse 69; Resp 16; Pulse Ox 99% on R/A; jb4 14:56 Body Mass Index 39.06 (90.72 kg, 152.40 cm) vg1 MDM: 15:17 Patient medically screened. atif 18:15 Data reviewed: vital signs, nurses notes, lab test result(s). cp 18:15 Differential diagnosis: hypertensive headache, meningitis, meningoencephalitis, otitis, cp sinusitis, tension headache, traumatic injuries. Counseling: I had a detailed discussion with the patient and/or guardian regarding: the historical points, exam findings, and any diagnostic results supporting the discharge/admit diagnosis, lab results, to return to the emergency department if symptoms worsen or persist or if there are any questions or concerns that arise at home. Response to treatment: the patient's symptoms have markedly improved after treatment, and as a result, I will discharge patient. 10/15 16:09 Order name: Urine Dipstick-Ancillary; Complete Time: 16:19 EDMS 10/15 16:19 Interpretation: Normal except: UBLD Trace-lysed; UPH 8.0. 10/15 16:17 Order name: Urine --Ancillary (enter results); Complete Time: 16:57 bd 10/15 16:57 Interpretation: Reviewed. 10/15 15:59 Order name: IV; Complete Time: 16:33 cp 10/15 15:59 Order name: Urine Dipstick-Ancillary (obtain specimen); Complete Time: 16:15 cp 10/15 15:59 Order name: Urine Test (obtain specimen); Complete Time: 16:15 cp 10/15 16:57 Order name: PO challenge; Complete Time: 17:01 cp Administered Medications: 16:38 Not Given (Patient Refused): Decadron - Dexamethasone 10 mg IVP once jb4 17:01 Drug: Meclizine 25 mg Route: PO; jb4 18:56 Follow up: Response: No adverse reaction; Marked relief of symptoms jb4 17:01 Drug: Reglan (metoCLOPramide) 10 mg Route: IVP; Site: left antecubital; jb4 18:55 Follow up: Response: No adverse reaction; Marked relief of symptoms jb4 17:01 Drug: Zofran (Ondansetron) 4 mg Route: IVP; Site: left antecubital; jb4 18:55 Follow up: Response: No adverse reaction; Marked relief of symptoms jb4 17:01 Drug: NS 0.9% 1000 ml Route: IV; Rate: 1 bolus; Site: left antecubital; jb4 18:00 Follow up: Response: No adverse reaction; IV Status: Completed infusion jb4 17:01 Drug: Benadryl (diphenhydrAMINE) 25 mg Route: IVP; Site: left antecubital; jb4 18:55 Follow up: Response: No adverse reaction; Marked relief of symptoms jb4 Disposition Summary: 10/15/21 18:17 Discharge Ordered Location: Home cp Problem: new cp Symptoms: have improved cp Condition: Stable cp Diagnosis - Headache cp Followup: cp - With: Private Physician - When: 2 - 3 days - Reason: Recheck today's complaints Discharge Instructions: - Discharge Summary Sheet cp - Migraine Headache cp Forms: - Medication Reconciliation Form cp - Thank You Letter cp - Antibiotic Education cp - Prescription Opioid Use cp Prescriptions: - Fioricet 50-300-40 mg Oral capsule - take 1 capsule by ORAL route every 4 hours as needed; 20 capsule; Refills: 0, cp Product Selection Permitted - Zofran 4 mg Oral Tablet - take 1 tablet by ORAL route every 12 hours As needed; 20 tablet; Refills: 0, cp Product Selection Permitted Addendum: 10/17/2021 07:49 Co-signature as Attending Physician, Michael Yuan MD I agree with the assessment and c marcum plan of care. Signatures: Dispatcher [employer] Michael Rodrigez MD MD cha Page, Corey, PA PA Luther Duval RN RN jb4 Daysi Echevarria RN RN vg1 Corrections: (The following items were deleted from the chart) 10/16 15:45 10/15 15:59 Associated signs and symptoms: Pertinent positives: dizziness, nausea, cp vomiting, cp
[2021-10-16 01:29] VITALS: TEMP 98.6
[2021-10-16 01:30] VITALS: BP 112/69; O2SAT 99
== END 2021-10-15 18:56 | disposition home or self-care (01) ==
LOC: ER 14:28
DX: R51.9 Headache, unspecified (principal); Z88.1 Allergy status to other antibiotic agents; F41.9 Anxiety disorder, unspecified; F31.9 Bipolar disorder, unspecified
CPT/HCPCS: 96361; 81025; 81003; 96375; 96374; 99284; J2765; J1200; J8597; J7030; J2405

== ENCOUNTER 2021-12-20 01:59 | Emergency (ER) | payer OTHER ==
--- OUTSIDE RECORDS SUMMARY | 2021-12-20 02:03 | XMS REPORT | Continuity of Care Document ---
:1995 Author Organization [facility] t Address [address] [place]. [address] [place] [id number] Care Team Providers Name Role Phone Asked, Pcp Primary Care Physician Unavailable Gume CHANCE Attending Clinician Miguel BUCHANAN S Attending Clinician Lluvia Rice Attending Clinician Geovani RIVERA Attending Clinician Unavailable Supa AREVALO, E Attending Clinician Singer FERNÁNDEZ Attending Clinician Geovani Barrera Admitting Clinician Unavailable Payers Payer Name Policy Type Policy Number Effective Date Expiration Date S ource HIM AMBETTER FROM [id number] 2020 [facility] [place] [employer] [place] [id number] 2019 00:00:00 Problems Condition Condition Condition Status Onset Resolution Last Treating Co mments Source Name Details Category Date Date Treatment Clinician Date Obesity Obesity Disease Active Univers (BMI (BMI 1-16 ity of 30-39.9) 30-39.9) 00:00: [place] 00 Medical Branch Urinary Urinary Disease Active Univers tract [...] Univers 5-23 ity of (vaginal (vaginal 00:00: [place] 00 Medical after after Branch ) ) trial trial Obesity in Obesity in Disease Active U nivers 5-23 ity of 00:00: [facility] Branch Family Family Disease Active Univers history of history of 8-26 it y of spina spina 00:00: [place] bifida bifida 00 Medical Branch No known No known Disease Metho [...] Active Palpitations 2018-06 Methodi nol ty to [address] Tartrate adverse 00:00: Hospita reaction 00 l s to drug morphine DA Active U 2018- [facility] 1-19 [facility] 00:[facility]: [facility] 00 l of [place] codeine DA Active MO 2018- [facility] 1-19 [facility] 00:00: [facility] 00 l of [place] morphine DA Active U SWELLING 2018- [facility] 1-19 Woman[facility] 00:00: [facility] 00 l of [place] codeine DA Active MO nausea, [facility] headache 1-19 Woman's 00:00: Hospita 00 l of [place] tramadol DA Active MO 2017- [facility] 2-31 Woman's 00:00: [facility]osp[facility] 00 l of [place] tramadol DA Active MO CHEST PAIN 2017- [facility] 2-31 Woman's 00:00: [...] [facility] Allergie 3-14 Woman's s 00:00: Hospita [address] [place] [address] Family History Family Member Diagnosis Comments Start Date Stop Date Source Natural mother Diabetes [facility] Natural mother Menstrual problems [facility] Social History Social Habit Start Date Stop Date Quantity Comments Source Exposure to Not sure [facility]-CoV-2 [facility] (event) Branch Tobacco use and 2020-12-31 2020-12-31 Never used Universit y of exposure 00:00:00 00:00:00 [facility] Alcohol intake 2020-12-31 2020-12-31 Current [facility] 00:00:00 00:00:00 non-drinker of [facility] alcohol [place] (finding) Alcohol Comment 2016-04-28 2016-04-28 social, weekly Metho [facility] 00:00:00 00:00:00 Sex [birth year] Universit y of 00:00:00 00:00:00 [facility] Smoking Status Start Date Stop Date Source Never smoker [facility] Medications Ordered Filled Start Stop Current Ordering Indication Dosage Frequency Signature Comments Components Source Medication Medication Date Date Medication? Clinician (SIG) Name Name ondansetron 2020- No 4mg 4 mg, Univ ers (ZOFRAN-ODT 12-31 Oral, ity of ) 09:15: 08:20 ONCE, 1 [place] disintegrat 00 :00 dose, Tue Med ical ing tablet 12/31/20 at Bran ch 4 mg 0415, Routine diphenhydrA No 25mg 25 mg, Uni vers MINE 12-31 Oral, ity of (BENADRYL) 09:15: 08:20 ONCE, 1 [place] as tablet 25 00 :00 dose, Tue Medic al mg 12/31/20 at Branch 0415, RODRICK ibuprofen 2020- No 800mg 800 mg, Uni vers (IBU) 12-31 Oral, ity of tablet 800 08:00: 07:17 ONCE, 1 [place] mg 00 :00 dose, Tue Medical 12/31/20 at Branch 0300, RODRICK methocarbam 2021-0 2021- No 1000mg 1,000 mg, Univers oL 7-06 07-06 Oral, ONCE ity of (ROBAXIN) 08:00: 07:17 NOW, 1 [place] tablet 00 :00 dose, Tue Medical 1,000 mg 12/31/20 at Branch 0300, RODRICK ibuprofen Yes [id number] 800mg Take 1 U nivers 800 mg 7-06 tablet by ity of tablet 00:00: mouth [place] 00 every 8 Medical (eight) Branch hours as needed for Pain (scale 4-6). cyclobenzap Yes [id number] 10mg Take 1 Univers rine 10 mg 7-06 tablet by ity of tablet 00:00: mouth 3 [place] 00 (three) Medical times Branch daily as needed for Muscle Spasms. methocarbam Yes 500mg 500 mg, Un carolann oL 5- Oral, QID, ity of (ROBAXIN) 21:00: [place] dose [place] tablet 500 00 on Wed Medical mg 11/20/20 at Branch 1600, Until Discontinu ed, Routine NaCl 0.9% 2020- No 1000mL at 999 Uni vers (NS) bolus 11-20 05-27 mL/hr, ity of infusion 20:30: 08:29 1,000 mL, Ryan as 1,000 mL 00 :00 IV Medical Infusion, [place] ONCE, 1 dose, [facility] 11/20/20 at 1530, STAT metoclopram 2020- No 10mg 10 mg, Uni vers dio HCl 11-20 Slow IV ity of (REGLAN) 20:15: 19:18 Push, [place] injection 00 :00 ONCE, 1 Medical 10 mg dose, [facility] 11/20/20 at 1515, RODRICK ketorolac 2020- No 30mg 30 mg, Unive rs (TORADOL) 11-20 Slow IV ity of injection 20:15: 19:18 Push, [place] 30 mg 00 :00 ONCE, 1 Medical dose, [facility] 11/20/20 at 1515, RODRICK
Fa culty member approving Restricted medication : JOHN RIVERA diphenhydrA 2020- No 25mg 25 mg, Uni vers MINE 11-20 Slow IV ity of (BENADRYL) 20:15: 20:15 Push, [place] injection 00 :00 ONCE, 1 Medical 25 mg dose, Wed Branch 11/20/20 at 1515, STAT butalbital- Yes 1{tbl} 1 tablet, Univers acetaminoph 5-26 Oral, ity of en-caff 18:12: Q4HPRN, [place] (ESGIC) 27 Starting Medical 50-325-40 Wed Branch mg tablet 1 11/20/20 at tablet 1312, Until Discontinu ed, Routine, zofran ketorolac Yes [id number] 10mg Take 1 Un carolann 10 mg 5-26 tablet by ity of tablet 00:00: mouth [place] 00 every 6 Medical (six) Branch hours as needed for Pain (scale 4-6). cyclobenzap Yes [id number] 10mg Take 1 Univers rine 10 mg 5-26 tablet by ity of tablet 00:00: mouth 3 [place] 00 (three) Medical times Branch daily. ketorolac Yes [id number] 10mg Take 1 Un carolann 10 mg 5-26 tablet by ity of tablet 00:00: mouth [place] 00 every 6 Medical (six) Branch hours as needed for Pain (scale 4-6). cyclobenzap Yes [id number] 10mg Take 1 Univers rine 10 mg 5-26 tablet by ity of tablet 00:00: mouth 3 [place] 00 (three) Medical times Branch daily. ketorolac 2020- No 30mg 30 mg, Unive rs (TORADOL) 09-27 Intramuscu ity of injection 03:45: 02:57 lar, ONCE, [place] 30 mg 00 :00 1 dose, Medical Elicia 09/26/20 Branch at 2245, RODRICK
Fa culty member approving Restricted medication : Tricia HERBERT [...] Elicia 09/26/20 Branch at 2245, RODRICK ondansetron 0 Yes [id number] 4mg Take 1 Univers (ZOFRAN 4-01 tablet by ity of ODT) 4 mg 00:00: mouth [place] disintegrat 00 every 8 Medic al ing tablet (eight) Branch hours as needed for Nausea and Vomiting (N/V). ondansetron Yes [id number] 4mg Take 1 Univers (ZOFRAN 4-01 tablet by ity of ODT) 4 mg 00:00: mouth [place] disintegrat 00 every 8 Medic al ing tablet (eight) Branch hours as needed for Nausea and Vomiting (N/V). ondansetron 0 Yes [id number] 4mg Take 1 Univers (ZOFRAN 4-01 tablet by ity of ODT) 4 mg 00:00: mouth [place] disintegrat 00 every 8 Medic al ing tablet (eight) Branch hours as needed for Nausea and Vomiting (N/V). proMETHazin Yes [id number] 25mg Take 1 Univers e 25 mg 2-09 tablet by ity of tablet 00:00: mouth [place] 00 every 6 Medical (six) Branch hours as needed for Nausea and Vomiting (N/V). proMETHazin 0 Yes [id number] 25mg Take 1 Univers e 25 mg 2-09 tablet by ity of tablet 00:00: mouth [place] 00 every 6 Medical (six) Branch hours as needed for Nausea and Vomiting (N/V). proMETHazin 0 Yes [id number] 25mg Take 1 Univers e 25 mg 2-09 tablet by ity of tablet 00:00: mouth [place] 00 every 6 Medical (six) Branch hours as needed for Nausea and Vomiting (N/V). ketorolac 2020- No 15mg 15 mg, Unive rs (TORADOL) 07-17 Slow IV ity of injection 13:30: 12:29 Push, [place] 15 mg 00 :00 ONCE, 1 Medical dose, Wed Branch 07/17/20 at 0730, RODRICK
Fa culty member approving Restricted medication : AUSTIN COWART NaCl 0.9% 2020- No 1000mL at 999 Uni vers (NS) IV 07-17 01-20 mL/hr, ity of infusion 13:30: 14:58 Intravenou [place] 1,000 mL 00 :00 s, ONCE, 1 Medic al dose, Wed Branch 07/17/20 at 0730, RODRICK metoclopram 2020- No 10mg 10 mg, Uni vers dio HCl 07-17-20 Slow IV ity of (REGLAN) 13:30: 12:29 [...] ity of 33-iron-fol 00:00: mouth [place] ic-dha daily. Medical (SELECT-OB Branch + DHA) 29 [...] Immunizations Ordered Filled Immunization Date Status Comments Sourc e Immunization Name Name Td 2011-06-28 Completed University of 00:00:00 [place] [facility] Td 2011-06-28 Completed University of 00:00:00 [place] [facility] Td 2011-06-28 Completed University of 00:00:00 [facility] Branch Td 2011-06-28 Completed University 00:00:00 [facility] Vital Signs Vital Name Observation Time Observation Value Comments Source Systolic blood 2020-12-31 06:49:00 125 mm[Hg] Univer sity of pressure [facility] Diastolic blood 2020-12-31 06:49:00 93 mm[Hg] Unive rsity of [facility] Heart rate 2020-12-31 06:49:00 104 /min Universi ty of [facility] Body temperature 2020-12-31 06:49:00 36.83 [place] [facility] 2020-12-31 06:49:00 15 /min [facility] Body height 2020-12-31 06:49:00 152.[address] [facility] Body weight 2020-12-31 06:49:00 [address] [facility] BMI 2020-12-31 06:49:00 39.83 kg/m2 Universi ty [facility] [place] [facility] Oxygen saturation in 2020-12-31 06:49:00 99 /min [facility] Arterial blood by [facility] Pulse oximetry Branch Systolic blood 2020-12-31 06:49:00 125 mm[Hg] Univer sity of [facility] Diastolic blood 2020-12-31 06:49:00 93 mm[Hg] Unive rsity of [facility] Heart rate 2020-12-31 06:49:00 104 /min Universi ty of [facility] Body temperature 2020-12-31 06:49:00 36.83 [place] Univ ersity [facility] [place] [facility] Respiratory rate 2020-12-31 06:49:00 15 /min Univ ersity of [facility] Body height 2020-12-31 06:49:00 152.[address] [facility] Body weight 2020-12-31 06:49:00 [address] [facility] BMI 2020-12-31 06:49:00 39.83 kg/m2 Universi ty of [place] [facility] Oxygen saturation in 2020-12-31 06:49:00 99 /min University of Arterial blood by [facility] Pulse oximetry Branch Systolic blood 2020-11-20 19:58:00 146 mm[Hg] Univer sity of pressure [place] [facility] Diastolic blood 2020-11-20 19:58:00 95 mm[Hg] Unive rsity of pressure [place] [facility] Heart rate 2020-11-20 19:58:00 98 /min Universi ty of [place] [facility] Body temperature 2020-11-20 19:58:00 37.17 [place] Univ ersity of [place] [facility] Respiratory rate 2020-11-20 19:58:00 17 /min Univ ersity of [place] [facility] Oxygen saturation in 2020-11-20 19:58:00 100 /min University of Arterial blood by [facility] Pulse oximetry Branch Body weight 2020-11-20 16:43:00 92.534 kg Universi ty of [place] [facility] BMI 2020-11-20 16:43:00 39.84 kg/m2 Universi ty of [place] [facility] Systolic blood 2020-11-20 19:58:00 146 mm[Hg] Univer sity of pressure [place] [facility] Diastolic blood 2020-11-20 19:58:00 95 mm[Hg] Unive rsity of pressure [place] [facility] Heart rate 2020-11-20 19:58:00 98 /min Universi ty of [place] [facility] Body temperature 2020-11-20 19:58:00 37.17 [place] Univ ersity of [place] [facility] Respiratory rate 2020-11-20 19:58:00 17 /min Univ ersity of [place] [facility] Oxygen saturation in 2020-11-20 19:58:00 100 /min University of Arterial blood by [facility] Pulse oximetry Branch Body weight 2020-11-20 16:43:00 92.534 kg Universi ty of [place] [facility] BMI 2020-11-20 16:43:00 39.84 kg/m2 Universi ty of [place] [facility] Body height 2020-09-26 23:49:00 152.4 cm Universi ty of [place] [facility] Body weight 2020-09-26 23:49:00 90.719 kg Universi ty of [place] [facility] BMI 2020-09-26 23:49:00 39.06 kg/m2 Universi ty of [place] [facility] Systolic blood 2020-09-26 23:45:00 103 mm[Hg] Univer sity of pressure [place] [facility] Diastolic blood 2020-09-26 23:45:00 62 mm[Hg] Unive rsity of pressure [place] [facility] Heart rate 2020-09-26 23:45:00 107 /min Universi ty of [place] [facility] Body temperature 2020-09-26 23:45:00 36.61 [place] Univ ersity of [place] [facility] Respiratory rate 2020-09-26 23:45:00 18 /min Univ ersity of [place] [facility] Oxygen saturation in 2020-09-26 23:45:00 97 /min University of Arterial blood by [place] [employer] Pulse oximetry Branch Body height 2020-09-26 23:49:00 152.4 cm Universi ty of [place] [facility] Body weight 2020-09-26 23:49:00 90.719 kg Universi ty of [place] [facility] BMI 2020-09-26 23:49:00 39.06 kg/m2 Universi ty of [place] [facility] Systolic blood 2020-09-26 23:45:00 103 mm[Hg] Univer sity of pressure [place] [facility] Diastolic blood 2020-09-26 23:45:00 62 mm[Hg] Unive rsity of pressure [place] [facility] Heart rate 2020-09-26 23:45:00 107 /min Universi ty of [place] [facility] Body temperature 2020-09-26 23:45:00 36.61 [place] Univ ersity of [place] [facility] Respiratory rate 2020-09-26 23:45:00 18 /min Univ ersity of [place] [facility] Oxygen saturation in 2020-09-26 23:45:00 97 /min University of Arterial blood by [place] [employer] Pulse oximetry Branch Systolic blood 2020-07-17 14:00:00 112 mm[Hg] Univer sity of pressure [place] [facility] Diastolic blood 2020-07-17 14:00:00 65 mm[Hg] Unive rsity of pressure [place] [facility] Heart rate 2020-07-17 14:00:00 86 /min Universi ty of [place] [facility] Respiratory rate 2020-07-17 14:00:00 20 /min Univ ersity of [place] [facility] Oxygen saturation in 2020-07-17 14:00:00 100 /min University of Arterial blood by [facility] Pulse oximetry Branch Body temperature 2020-07-17 11:50:00 37.22 [place] [facility] Body weight 2020-07-17 11:50:00 86.183 kg Universi ty [facility] [place] [facility] BMI 2020-07-17 11:50:00 37.11 kg/m2 Universi [facility] Systolic blood 2020-07-17 14:00:00 112 mm[Hg] [facility] Diastolic blood 2020-07-17 14:00:00 65 mm[Hg] Unive rsity of [facility] Heart rate 2020-07-17 14:00:00 86 /min [facility] Respiratory rate 2020-07-17 14:00:00 20 /min [facility] Oxygen saturation in 2020-07-17 14:00:00 100 /min University of Arterial blood by [facility] Pulse oximetry Branch Body temperature 2020-07-17 11:50:00 37.22 [place] [facility] Body weight 2020-07-17 11:50:00 86.183 kg Universi [facility] BMI 2020-07-17 11:50:00 37.11 kg/m2 [facility] Procedures Procedure Date / Time Performed Performing Clinician Sour e RAPID STREP SCREEN FOR 2020-12-31 07:13:00 Akiko Dunaway [facility] GROUP A Medical Branch NOTICE OF PRIVACY 2020-12-31 06:34:54 Doctor Unassigned, No [facility] PRACTICES Name Medical Branch CONSENT/REFUSAL FOR 2020-12-31 06:34:35 [facility] Branch TREATMENT CT HEAD WO CONTRAST 2020-11-20 18:18:22 John Rivera [facility] POCT TEST 2020-11-20 17:50:00 John Rivera [facility] BASIC METABOLIC PANEL 2020-11-20 17:24:00 John Rivera [facility] (NA, K, CL, CO2, Medical Branch GLUCOSE, BUN, CREATININE, CA) CBC WITH DIFF 2020-11-20 17:24:00 John Rivera [place] [facility] CONSENT/REFUSAL FOR 2020-11-20 16:36:59 Doctor Unassigned, No Un iversity of [place] DIAGNOSIS AND Name Medical Branch TREATMENT POCT TEST 2020-09-27 02:56:00 [facility] BENEFITS 2020-09-27 01:35:31 Doctor Unassigned, No [facility] Branch CONSENT/REFUSAL FOR 2020-09-26 23:26:24 Doctor Unassigned, No Un iversity of [place] DIAGNOSIS AND Name [facility] TREATMENT URINALYSIS 2020-07-17 14:08:00 Austin Cowart [facility] POCT TEST 2020-07-17 14:08:00 [place] Cowart [facility] CBC WITH DIFF 2020-07-17 12:25:00 [place] Cowart [facility] NOTICE OF PRIVACY 2020-07-17 11:48:39 Doctor Unassigned, No Univ ersity [facility] Medical [place] CONSENT/REFUSAL FOR 2020-07-17 11:44:41 Doctor [facility]assigned, No [facility] T[facility] Plan of Care Planned Activity Planned Date Details Comments Source Future Scheduled Test Hepatitis C screening [facility] (procedure) [code = 190363751] Future Scheduled Test Screening for [facility] malignant neoplasm of cervix (procedure) [code = 232069998] Future Scheduled Test INFLUENZA VACCINE [facility] [code = INFLUENZA VACCINE] Future Scheduled Test COVID-19 VACCINE (1) [facility] [code = COVID-19 VACCINE (1)] Encounters Start End Encounter Admission Attending Care Care Encounter Source Date/Time Date/Time Type Type Clinicians Facility Department ID 2021-04-28 Emergency [facility] [id number] [facility] 2021-04-27 Emergency [facility] [id number] Univers 21:27:31 [facility] 2021-04-27 Emergency [facility] [id number] Univers 10:13:04 [facility] 2021-04-26 Emergency [facility] [id number] Univers 18:11:[address] [facility] 2020-12-31 2020-12-31 [facility] [id number] Univers 02:02:00 03:26:00 Akiko Yuma [id number] i ty of [place] 4.2.7.2.686 [facility] [id number] [address] 2020-12-31 2020-12-31 [facility] [id number] 02:02:00 03:26:00 Akiko Yuma [id number] [place] 4.2.7.2.686 [place] [id number] [facility] 2020-11-20 2020-11-20 [facility] [id number] [facility] 11:47:00 15:01:00 John S Yuma [id number] i ty of [place] 4.2.7.2.686 [facility] [id number] [address] 2020-11-20 2020-11-20 [facility] [id number] 11:47:00 15:01:00 John S Yuma [id number] [place] 4.2.7.2.686 [place] [id number] [facility] 2020-09-26 2020-09-26 Emergency Tricia Herbert [facility] [id number] Univers 18:51:00 22:39:00 Lluvia Yuma [id number] i ty of [place] 4.2.7.2.686 [facility] [id number] [address] 2020-09-26 2020-09-26 Emergency Tricia Herbert [facility] [id number] 18:51:00 22:39:00 Lluvia Yuma [id number] [place] 4.2.7.2.686 [place] [id number] [facility] 2020-08-06 2020-08-06 Emergency X MIGUEL CTEMILIA ERT [id number] Univers 10:13:00 12:49:00 JOHN [facility] 2020-08-01 2020-08-03 Inpatient [facility] [id number] [facility] 09:14:00 03:39:32 [facility] 2020-07-17 2020-07-17 Emergency [place] Cowart [facility] 1.2.840 .114 [id number] [facility] 05:53:00 08:59:00 [id number] 4.2.7.2.686 [facility] [id number] [address] 2020-07-17 2020-07-17 Emergency Austin Cowart [facility] 1.2.840 .114 [id number] 05:53:00 08:59:00 Dani Kauffman [id number] [place] 4.2.7.2.686 [place] [id number] Results Test Description Test Time Test Comments Results Result Comments Source RAPID STREP SCREEN FOR GROUP A 2020-12-31 07:59:00 Test Item Value Reference Range Interpretation Comme nts Streptococcus pyogenes (group A) antigen (test code = 04220- 2) Negative Negative Lab Interpretation (test code = 89235-7) Normal [facility] WO [id number] 18:21:18No acute findings. HISTORY:Head trauma, mod-severe hit left head, near syncope, persistentsevere headache and dizziness TECHNIQUE: Noncontrast head CT was performed. COMPARISON:None FINDINGS: The ventricles and sulci are appropriate for patient's age. There is no midline shift. The basal cisterns are preserved. No largevascular territory infarction, intracranial hemorrhage or mass effect isseen. The extracranial tissues demonstrate no acute findings. [facility], Radiant Results Inft User - 11/20/2020 1:22 PM CDT HISTORY:Head trauma, mod-severe hit left head, near syncope, persistentsevere headache and dizziness TECHNIQUE: Noncontrast head CT was performed.COMPARISON:NoneFINDINGS:The ventricles and sulci are appropriate for patient's age.There is no midline shift. The basal cisterns are preserved. No largevascular territory infarction, intracranial hemorrhage or mass effect isseen.The extracranial tissues demonstrate no acute findings.IMPRESSIONNo acute findings.[facility] (NA, K, CL, CO2, GLUCOSE, BUN, CREATININE, CA)2020-11-20 18:00:40 Test Item Value Reference Range Interpretation Comments NA (test code = 137 mmol/L 135-145 7077818672) K (test code = 4.2 mmol/L 3.5-5.0 5747647030) CL (test code = 104 mmol/L 98-108 3203234939) CO2 TOTAL (test code = 22 mmol/L 23-31 L 6688241629) AGAP (test code = 2-16 5892977979) BUN (test code = 10 mg/dL 7-23 6241520633) GLUCOSE (test code = 150 mg/dL 70-110 H 2312565173) CREATININE (test code = 0.59 mg/dL 0.50-1.04 5674838434) CALCIUM (test code = 9.5 mg/dL 8.6-10.6 6348783007) eGFR (test code = mL/min/1.73m2 2532578651) TOBI (test code = TOBI) Association of [...] tests). Lab Interpretation Abnormal (test code = 42344-1) [facility] [id number] 17:50:00 Test Item Value Reference Range Interpretation Comments POCT PREG (test code = 1605) negative On board controls acceptable with present C Line (test code = 3574) POCT PREG LOT # (test code = 3575) [id number] POCT PREG TEST DATE (test 05/27/2022 code = 3576) Lab Interpretation (test code = Normal 94301-1) [facility] WITH [id number] 17:32:17 Test Item Value Reference Range Interpretation Comments WBC (test code = See_Comment [Automated 8390-2) message] The sy stem which generated this result transmitted reference range : 4.30 - 11.10 10*3/?L. The reference range was not used to interpret this result as normal/abnormal . RBC (test code = See_Comment [Automated 179-8) message] The sy stem which generated this [...] RDW-SD (test code = 40.4 fL 39.0-49.9 70554-0) RDW-CV (test code = 13.0 % 12.0-15.5 788-0) PLT (test code = See_Comment H [Automated 777-3) message] The sy stem which generated this result transmitted reference range : 166 - 358 10*3/ ?L. The reference r shira was not used to interpret this result as normal/abnormal . MPV (test code = 9.5 fL 9.5-12.9 82487-0) NRBC/100 WBC (test See_Comment [Automat ed code = 2238464283) message] The system which generated this result transmitted reference range : 0.0 - 10.0 /100 WBCs. The refer ence range was not u sed to interpret th is result as normal/abnormal . NRBC x10^3 (test code <0.01 See_Comment [Auto mated = 5782393452) message] The s ystem which generated this result transmitted reference range : 10*3/?L. The reference range was not used to interpret this result as normal/abnormal . GRAN MAT (NEUT) % 83.0 % (test code = 770-8) IMM GRAN % (test code 0.70 % = 0886684248) LYMPH % (test code = 12.5 % 736-9) MONO % (test code = 3.7 % 5905-5) EOS % (test code = 0.0 % 713-8) BASO % (test code = 0.1 % 706-2) GRAN MAT x10^3(ANC) 8.41 10*3/uL 1.88-7.09 H (test code = 4709837759) IMM GRAN x10^3 (test 0.07 10*3/uL 0.00-0.06 H code = 6098838925) LYMPH x10^3 (test code 1.26 10*3/uL 1.32-3.29 L = 731-0) MONO x10^3 (test code 0.37 10*3/uL 0.33-0.92 = 742-7) EOS x10^3 (test code = <0.03 0.03-0.39 L 711-2) BASO x10^3 (test code <0.03 0.01-0.07 = 704-7) Lab Interpretation Abnormal (test code = 91117-0) [facility] [id number] 02:56:00 Test Item Value Reference Range Interpretation Comments POCT PREG (test code = 1605) negative On board controls acceptable with present C Line (test code = 3574) POCT PREG LOT # (test code = 3575) [id number] POCT PREG TEST DATE (test 02/25/2022 code = 3576) Lab Interpretation (test code = Normal 74392-0) [facility] BY [id number] 14:24:00 Test Item Value Reference Range Interpretation Comments C. TRACHOMATIS DNA BY Negative Negative PCR (test code = CHLAMTDNA) N. GONORRHOEAE DNA BY Negative Negative Perfor med At: ST PCR (test code = [facility] NGONORDNA) [id number] [facility] [place], [place] [id number] Rodrigues MD Ph:[phone] - DUP AB/PEL/SC/[id number] 14:12:[address] [facility] : 1995 Sex: F Patient Name: FATMATA DEGROOT Unit No: [id number] EXAMS: CPT CODE: [id number] DUP AB/PEL/SC/LTD 97213 PELVIC ULTRASOUND, 08/01/2020: COMPARISON: CT pelvis dated [...] (1412) t.SDR.AJ13 Orig Print D/T: S: 08/01/2020 (5731) [facility] NAME: FATMATA DEGROOT Radiology DepartmentPHYS: Winter Landaverde MD [address] : 1995 AGE: 24 SEX: F [place] [address] LOC: ERS PHONE #: [phone] EXAM DATE: 08/01/2020 STATUS: REG ER FAX #: [phone] RAD NO: Page 1 Signed Report Patient Name: FATMATA DEGROOT Unit No: [id number] EXAMS: CPT CODE: [id number] DUP AB/PEL/SC/LTD 10890 <Continued> [facility] NAME: FATMATA DEGROOT Radiology Department PHYS: Winter Landaverde MD [address] : 1995 AGE: 24 SEX: F [place], [place] [address] LOC: .ERS PHONE #: [phone] DATE: 08/01/2020 STATUS: REG ER FAX #: [phone] RAD NO: Page 2 Signed Report- US TRANSVAGINAL [id number] 14:12:00[facility] : 1995 Sex: F Patient Name: FATMATA DEGROOT Unit No: [id number] EXAMS: CPT CODE: [id number] US TRANSVAGINAL W/PELVIS 20702 PELVIC ULTRASOUND, 08/01/2020: COMPARISON: CT pelvis dated [...] Austin Barrera Technologist: Alexandra Elder RDMS Probe: [id number] Trnscrbd D/ (1412) AlfredoAJ13 Orig Print D/T: S: 08/01/2020 (7645) [facility] NAME: FATMATA DEGROOT Radiology DepartmentPHYS: CANAL.Jay Winter Mccollum MD [address] : 1995 AGE: 24 SEX: F [place], [place] [address] LOC: SANDY PHONE #: [phone] EXAM DATE: 08/01/2020 STATUS: REG ER FAX #: [phone] RAD NO: Page 1 Signed Report Patient Name: FATMATA DEGROOT Unit No: [id number] EXAMS: CPT CODE: [id number] US TRANSVAGINAL W/PELVIS 50634 <Continued> [facility] NAME: FATMATA DEGROOT Radiology Department PHYS: Winter Landaverde MD [address] : 1995 AGE: 24 SEX: F [place], [place] [address] LOC: SANDY PHONE #: [phone] DATE: 08/01/2020 STATUS: REG ER FAX #: [phone] RAD NO: Page 2 Signed Report- US PELVIS [id number] 14:12:00[facility] : 1995 Sex: F Patient Name: FATMATA DEGROOT Unit No: [id number] EXAMS: CPT CODE: [id number] US PELVIS COMPLETE 32912 PELVIC ULTRASOUND, 08/01/2020: COMPARISON: CT pelvis dated [...] t.SDR.AJ13 Orig Print D/T: S: 08/01/2020 (1415) [facility] NAME: FATMATA DEGROOT Radiology DepartmentPHYS: Winter Landaverde MD [address] : 1995 AGE: 24 SEX: F [place] [address] LOC: ShaylaERS PHONE #: [phone] EXAM DATE: 08/01/2020 STATUS: REG ER FAX #: [phone] RAD NO: Page 1 Signed Report Patient Name: FATMATA DEGROOT Unit No: [id number] EXAMS: CPT CODE: [id number] US PELVIS COMPLETE 98487 <Continued> [facility] NAME: FATMATA DEGROOT Radiology Department PHYS: Winter Landaverde MD [address] : 1995 AGE: 24 SEX: F [place] [address] LOC: ShaylaERS PHONE #: [phone] DATE: 08/01/2020 STATUS: REG ER FAX #: [phone] RAD NO: Page 2 Signed Report- CT ABD PELVIS W/O [id number] 10:58:00[facility] : 1995 Sex: F Patient Name: FATMATA DEGROOT Unit No: [id number] EXAMS: CPT CODE: [id number] CT ABD PELVIS W/O CONT 29520 CT ABDOMEN/CT STONE SURVEY WITHOUT CONTRAST, 08/01/2020 [...] mm right middle lobe pulmonary nodule. [facility] NAME: FATMATA DEGROOT Radiology Department PHYS: Winter Landaverde MD [address] : 1995 AGE: 24 SEX: F [place], [place] [address] LOC: SANDY PHONE #: [phone] EXAM DATE: 08/01/2020 STATUS: REG ER FAX #:[phone] RAD NO: Page 1 Signed Report 1 Patient Name: FATMATA DEGROOT Unit No: [id number] EXAMS: CPT CODE: [id number] CT ABD PELVIS W/O CONT 96222 <Continued> CT PELVIS WITHOUT CONTRAST: No opaque [...] Agudelo MD CC: Winter Mccollum MD; [facility] Technologist: Art Church RT, CT CTDI: 13.28 DLP: 653.43 Trnscrbd D/ (1058) AlfredoAJ13 [facility] NAME: PERLAFATMATA Radiology Department PHYS: Winter Landaverde MD [address] : 1995 AGE: 24 SEX: F [place], [place] [address] LOC: SANDY PHONE #: [phone] EXAM DATE: 08/01/2020 STATUS: REG ER FAX #: [phone] RAD NO: Page 2 Signed Report 1 Patient Name: FATMATA DEGROOT Unit No: [id number] EXAMS: CPT CODE: [id number] CT ABD PELVIS W/O CONT 08964 <Continued> Orig Print D/T: S: 08/01/2020 (1101) [facility] [place] [facility] NAME: FATMATA DEGROOT Radiology Department PHYS: Winter Landaverde MD [address] : 1995 AGE: 24 SEX: F [place], [place] [address] LOC: SANDY PHONE #: [phone] EXAM DATE: 08/01/2020 STATUS: BALTAZAR LOVE FAX #: [phone] RAD NO: Page 3 Signed Report 1UA RFLX MICR CULT IF [id number] 10:04:00 Test Item Value Reference Range Interpretation [...] culture: Suprapubic PainSpecimen Description: CLEAN CATCHUR HCG [id number] 10:04:00 Test Item Value Reference Range Interpretation [...] Description: CLEAN CATCHUA RFLX MICR CULT IF [id number] 10:03:00 Test Item Value Reference Range Interpretation [...] culture: Suprapubic PainSpecimen Description: CLEAN CATCHUR HCG [id number] 10:03:00 Test Item Value Reference Range Interpretation Comments UR HCG QUAL (test code = HCGQLU) Indication for culture: Suprapubic PainSpecimen Description: CLEAN CATCH [id number] 14:39:00 Test Item Value Reference Range Interpretation Comments APPEARANCE (test code = Hazy Clear A 6560300379) COLOR (test code = Yellow Yellow 9029796746) PH (test code = 4.8-8.0 3360242787) SP GRAVITY (test code = 1.003-1.030 0973686358) GLU U QUAL (test code = Normal Normal 7840292908) BLOOD (test code = Negative Negative INTERFERE NCE FROM 6794532384) ASCORBIC ACID M AY CAUSE FALSE NEG ATIVE RESULT KETONES (test code = Negative Negative 4449087511) PROTEIN (test code = Negative Negative 2887-8) UROBILIN (test code = Normal Normal 6378218887) BILIRUBIN (test code = Negative Negative 5175339707) NITRITE (test code = Negative Negative 4569291645) LEUK SILVINO (test code = Negative Negative 6330838014) RBC/HPF (test code = See_Comment [Autom ated message] 6260891821) The system [employer]od[employer] generated this result transmitted ref erence range: 0 - 3 HP F. The reference range was not used to int erpret this result as normal/abnormal . WBC/HPF (test code = <1 See_Comment [Autom ated message] 3884315655) The system [employer] generated this result transmitted ref erence range: 0 - 5 HP F. The reference range was not used to int erpret this result as normal/abnormal . BACTERIA (test code = Few Negative A 1157487027) MUCOUS (test code = Slight Negative LPF A 9771951566) SQ EPITH (test code = HPF 8961788103) Lab Interpretation (test Abnormal code = 38352-4) [facility] [id number] 14:08:00 Test Item Value Reference Range Interpretation Comments POCT PREG (test code = 1605) negative On board controls acceptable with present C Line (test code = 3574) POCT PREG LOT # (test code = 3575) [id number] POCT PREG TEST DATE (test 2022-02-25 code = 3576) Lab Interpretation (test code = Normal 56634-2) [facility] WITH [id number] 12:41:00 Test Item Value Reference Range Interpretation Comments WBC (test code = See_Comment [Automated 0190-2) message] The sy stem which generated this result transmitted reference range : 4.30 - 11.10 10*3/?L. The reference range was not used to interpret this result as normal/abnormal . RBC (test code = See_Comment [Automated 459-8) message] The sy stem which generated this [...] RDW-SD (test code = 40.8 fL 39-49.9 28507-8) RDW-CV (test code = 13.0 % 12-15.5 788-0) PLT (test code = See_Comment H [Automated 777-3) message] The sy stem which generated this result transmitted reference range : 166 - 358 10*3/ ?L. The reference r shira was not used to interpret this result as normal/abnormal . MPV (test code = 9.5 fL 9.5-12.9 03525-8) NRBC/100 WBC (test See_Comment [Automat ed code = 1763249060) message] The system which generated this result transmitted reference range : 0.0 - 10.0 /100 WBCs. The refer ence range was not u sed to interpret th is result as normal/abnormal . NRBC x10^3 (test code <0.01 See_Comment [Auto mated = 8144805511) message] The s ystem which generated this result transmitted reference range : 10*3/?L. The reference range was not used to interpret this result as normal/abnormal . GRAN MAT (NEUT) % 49.7 % (test code = 770-8) IMM GRAN % (test code 0.40 % = 7266719339) LYMPH % (test code = 37.6 % 736-9) MONO % (test code = 6.3 % 5905-5) EOS % (test code = 5.4 % 713-8) BASO % (test code = 0.6 % 706-2) GRAN MAT x10^3(ANC) 4.65 10*3/uL 1.88-7.09 (test code = 6527723455) IMM GRAN x10^3 (test 0.04 10*3/uL 0-0.06 code = 8637871453) LYMPH x10^3 (test code 3.52 10*3/uL 1.32-3.29 H = 731-0) MONO x10^3 (test code 0.59 10*3/uL 0.33-0.92 = 742-7) EOS x10^3 (test code = 0.51 10*3/uL 0.03-0.39 H 711-2) BASO x10^3 (test code 0.06 10*3/uL 0.01-0.07 = 704-7) Lab Interpretation Abnormal (test code = 15716-2) [facility] W/AUTO [id number] 07:27:00 Test Item Value Reference Range Interpretation [...] NORMAL code = PLTMR) AG HEPATITIS B [id number] 04:15:00 Test Item Value Reference Range Interpretation Comments AG HEPATITIS B SURFACE (test code NONREACTIVE NONREACTIVE = HBSAG) AB HEPATITIS C [id number] 04:15:00 Test Item Value Reference Range Interpretation Comments AB HEPATITIS C (test code = NONREACTIVE NONREACTIVE HCVAB) SIGNAL TO CUTOFF (test code = 0.13 <0.80 N CUTOFF) RUBELLA [id number] 04:15:00 Test Item Value Reference Range Interpretation Comments RUBELLA SCREEN 70.2 IUnit/ml Results >10. 0IUnits/ml (test code = are considered positive RUBSC) inaccordance wi th the CLSI guidelines and based on the [employer] S tandard for Anti-Rubell a serum as anindicator of immune status and a br eakpoint to detect mostseropositiv e persons. AB [id number] 04:15:00 Test Item Value Reference Range Interpretation Comments AB TREPONEMA (test code = TREPAB) NONREACTIVE NONREACTIVE AG HEPATITIS B [id number] 04:00:00 Test Item Value Reference Range Interpretation Comments AG HEPATITIS B SURFACE (test code NONREACTIVE NONREACTIVE = HBSAG) AB HEPATITIS C [id number] 04:00:00 Test Item Value Reference Range Interpretation Comments AB HEPATITIS C (test code = HCVAB) NONREACTIVE SIGNAL TO CUTOFF (test code = CUTOFF) <0.80 RUBELLA [id number] 04:00:00 Test Item Value Reference Range Interpretation Comments RUBELLA SCREEN 70.2 IUnit/ml Results >10. 0IUnits/ml (test code = are considered positive RUBSC) inaccordance wi th the CLSI guidelines and based on the [employer] S tandard for Anti-Rubell a serum as anindicator of immune status and a br eakpoint to detect mostseropositiv e persons. AB [id number] 04:00:00 Test Item Value Reference Range Interpretation Comments AB TREPONEMA (test code = TREPAB) NONREACTIVE NONREACTIVE CBC W/AUTO [id number] 00:36:00 Test Item Value Reference Range Interpretation [...]
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
[2021-12-20 05:06] VITALS: BP 126/87; TEMP 97.5; O2SAT 98
== END 2021-12-20 04:48 | disposition left against medical advice (07) ==
LOC: ER 01:59
DX: Z53.21 Procedure and treatment not carried out due to patient leaving prior to being seen by health care provider (principal)
CPT/HCPCS: 99282

== ENCOUNTER 2022-01-16 10:27 | Emergency (ER) | payer OTHER ==
--- OUTSIDE RECORDS SUMMARY | 2022-01-16 10:31 | XMS REPORT | Continuity of Care Document ---
:1995 Author Organization [facility] t Address [address] Mcman[place]. [address] [place] [address] Care Team Providers Name Role Phone Asked, Pcp Primary Care Physician Unavailable Gume CHANCE Attending Clinician Miguel BUCHANAN S Attending Clinician Lluvia Rice Attending Clinician Geovani RIVERA Attending Clinician Unavailable Supa AREVALO, E Attending Clinician Singer FERNÁNDEZ Attending Clinician Geovani Barrera Admitting Clinician Unavailable Payers Payer Name Policy Type Policy Number Effective Date Expiration Date S ource HIM AMBETTER FROM [id number] 2020 [facility] 00:00:00 [employer] [place] [id number] 2019 00:00:00 Problems Condition Condition Condition Status [...] Univers 5-23 ity of (vaginal (vaginal 00:00: [place] 00 Medical after after Branch ) ) trial trial Obesity in Obesity in Disease Active U nivers 5-23 ity of 00:00: [facility] Branch Family Family Disease Active Univers [...] l of [place] codeine DA Active [place] 2018- [facility] 1-19 [facility] 00:[facility]: [facility] 00 l [facility] [place] morphine DA Active U SWELLING 2018- [facility] 1-19 Woman's 00:00: Hospita 00 [place] codeine DA Active [place] nausea, [facility] headache 1-19 Woman's 00:00: Hospita 00 [place] tramadol DA Active [place] 2017- [facility] 2-31 Woman's 00:00: Hospita 00 [place] tramadol DA Active [place] CHEST PAIN 2017- [facility] 2-31 Woman's 00:00: [...] [facility] Allergie 3-14 Woman's s 00:00: Hospita [address] [place] [address] Family History Family Member Diagnosis Comments Start Date Stop Date Source Natural mother Diabetes [facility] Natural mother Menstrual problems [facility] Social History Social Habit Start Date Stop Date Quantity Comments Source Exposure to Not sure [facility]-CoV-2 [facility] (event) Branch Tobacco use and 2020-12-31 2020-12-31 Never used Universit y of exposure 00:00:00 00:00:00 [facility] Alcohol intake 2020-12-31 2020-12-31 Current [facility] 00:00:00 00:00:00 non-drinker of [facility] [place] [facility] alcohol [place] (finding) Alcohol Comment 2016-04-28 2016-04-28 social, weekly Metho [facility] 00:00:00 00:00:00 [birth year] Universit y of 00:00:00 00:00:00 [facility] Smoking Status Start Date Stop Date Source Never smoker [facility] Medications Ordered Filled Start Stop [...] 12/31/20 at Branch 0300, RODRICK ibuprofen Yes [id number] 800mg Take 1 U nivers 800 mg 7-06 tablet by ity of tablet 00:00: mouth [place] 00 every 8 Medical (eight) Branch hours as needed for Pain (scale 4-6). cyclobenzap Yes [id number] 10mg Take 1 Univers rine 10 mg [...] 1,000 mL 00 :00 IV Medical Infusion, [place] ONCE, 1 dose, [facility] 11/20/20 at 1530, STAT metoclopram 2020- No 10mg 10 mg, Uni vers dio HCl 11-20 Slow IV ity of (REGLAN) 20:15: 19:18 Push, [place] injection 00 :00 ONCE, 1 Medical 10 mg dose, [facility] 11/20/20 at 1515, RODRICK ketorolac 2020- No 30mg 30 mg, Unive rs (TORADOL) 11-20 Slow IV ity of injection 20:15: 19:18 Push, [place] 30 mg 00 :00 ONCE, 1 Medical dose, [facility] 11/20/20 at 1515, RODRICK
Fa culty member approving Restricted medication : JOHN RIVERA diphenhydrA 2020- No 25mg 25 mg, Uni vers MINE 11-20 Slow IV ity of (BENADRYL) 20:15: 20:15 Push, [place] injection 00 :00 ONCE, 1 Medical 25 mg dose, Wed Branch 11/20/20 at 1515, STAT butalbital- Yes 1{tbl} 1 tablet, Univers acetaminoph 5-26 Oral, ity of en-caff 18:12: Q4HPRN, [place] (ESGIC) 27 Starting Medical 50-325-40 Wed Branch mg tablet 1 11/20/20 at tablet 1312, Until Discontinu ed, Routine, zofran ketorolac Yes [id number] 10mg Take 1 Un carolann 10 mg 5-26 tablet by ity of tablet 00:00: mouth [place] 00 every 6 Medical (six) Branch hours as needed for Pain (scale 4-6). cyclobenzap Yes [id number] 10mg Take 1 Univers rine 10 mg 5-26 tablet by ity of tablet 00:00: mouth 3 [place] 00 (three) Medical times Branch daily. ketorolac Yes [id number] 10mg Take 1 Un carolann 10 mg 5-26 tablet by ity of tablet 00:00: mouth [place] 00 every 6 Medical (six) Branch hours as needed for Pain (scale 4-6). cyclobenzap Yes [id number] 10mg Take 1 Univers rine 10 mg [...] Branch at 2245, RODRICK ondansetron 0 Yes [id number] 4mg Take 1 Univers (ZOFRAN 4-01 tablet by ity of ODT) 4 mg 00:00: mouth [place] disintegrat 00 every 8 Medic al ing tablet (eight) Branch hours as needed for Nausea and Vomiting (N/V). ondansetron Yes [id number] 4mg Take 1 Univers (ZOFRAN 4-01 tablet by ity of ODT) 4 mg 00:00: mouth [place] disintegrat 00 every 8 Medic al ing tablet (eight) Branch hours as needed for Nausea and Vomiting (N/V). ondansetron 0 Yes [id number] 4mg Take 1 Univers (ZOFRAN 4-01 tablet by ity of ODT) 4 mg 00:00: mouth [place] disintegrat 00 every 8 Medic al ing tablet (eight) Branch hours as needed for Nausea and Vomiting (N/V). proMETHazin Yes [id number] 25mg Take 1 Univers e 25 mg 2-09 tablet by ity of tablet 00:00: mouth [place] 00 every 6 Medical (six) Branch hours as needed for Nausea and Vomiting (N/V). proMETHazin 0 Yes [id number] 25mg Take 1 Univers e 25 mg 2-09 tablet by ity of tablet 00:00: mouth [place] 00 every 6 Medical (six) Branch hours as needed for Nausea and Vomiting (N/V). proMETHazin 0 Yes [id number] 25mg Take 1 Univers e 25 mg [...] Name Td 2011-06-28 Completed University of 00:00:00 [place] [facility] Td 2011-06-28 Completed University of 00:00:00 [place] [facility] Td 2011-06-28 Completed University of 00:00:00 [facility] Branch Td 2011-06-28 Completed University 00:00:00 [facility] Vital Signs Vital Name Observation Time Observation Value Comments Source Systolic blood 2020-12-31 06:49:00 125 mm[Hg] Univer sity of pressure [facility] Diastolic blood 2020-12-31 06:49:00 93 mm[Hg] Unive rsity of [facility] Heart rate 2020-12-31 06:49:00 104 /min Universi ty of [facility] Body temperature 2020-12-31 06:49:00 36.83 [place] [facility] rate 2020-12-31 06:49:00 15 /min [facility] Body height 2020-12-31 06:49:00 152.4 cm Universi ty of [facility] Body weight 2020-12-31 06:49:00 92.5 kg Universi ty of [facility] BMI 2020-12-31 06:49:00 39.83 kg/m2 Universi ty [facility] Oxygen saturation in 2020-12-31 06:49:00 99 /min [facility] Arterial blood by [facility] [place] [facility] Pulse oximetry Branch Systolic blood 2020-12-31 06:49:00 125 mm[Hg] Univer sity of [facility] Diastolic blood 2020-12-31 06:49:00 93 mm[Hg] Unive rsity of [facility] Heart rate 2020-12-31 06:49:00 104 /min Universi ty of [facility] Body temperature 2020-12-31 06:49:00 36.83 [place] Univ ersity [facility] Respiratory rate 2020-12-31 06:49:00 15 /min Univ ersity of [facility] Body height 2020-12-31 06:49:00 152.4 cm Universi ty of [facility] Body weight 2020-12-31 06:49:00 92.5 kg Universi ty of [facility] BMI 2020-12-31 06:49:00 39.83 kg/m2 Universi ty of [place] [facility] Oxygen saturation in 2020-12-31 06:49:00 99 /min University of Arterial blood by [facility] [place] [facility] Pulse oximetry Branch Systolic blood 2020-11-20 19:58:00 146 mm[Hg] Univer sity of pressure [place] [facility] Diastolic blood 2020-11-20 19:58:00 95 mm[Hg] Unive rsity of pressure [place] [facility] Heart rate 2020-11-20 19:58:00 98 /min Universi ty of [place] [facility] Body temperature 2020-11-20 19:58:00 37.17 [place] Univ ersity of [place] [facility] Respiratory rate 2020-11-20 19:58:00 17 /min Univ ersity of [place] [facility] Oxygen saturation in 2020-11-20 19:58:00 100 /min University of Arterial blood by [facility] [place] [facility] Pulse oximetry Branch Body weight 2020-11-20 16:43:00 92.534 kg Universi ty of [place] [facility] BMI 2020-11-20 16:43:00 39.84 kg/m2 Universi ty of [place] [facility] Systolic blood 2020-11-20 19:58:00 146 mm[Hg] Univer sity of pressure [place] [facility] Diastolic blood 2020-11-20 19:58:00 95 mm[Hg] Unive rsity of pressure [place] [facility] Heart rate 2020-11-20 19:58:00 98 /min Universi ty of [place] [facility] Body temperature 2020-11-20 19:58:00 37.17 [place] Univ ersity of [place] [facility] Respiratory rate 2020-11-20 19:58:00 17 /min Univ ersity of [place] [facility] Oxygen saturation in 2020-11-20 19:58:00 100 /min University of Arterial blood by [facility] [place] [facility] Pulse oximetry Branch Body weight 2020-11-20 16:43:00 92.534 kg Universi ty of [place] [facility] BMI 2020-11-20 16:43:00 39.84 kg/m2 Universi ty of [place] [facility] Body height 2020-09-26 23:49:00 152.4 cm Universi ty of [place] [facility] Body weight 2020-09-26 23:49:00 90.719 kg Universi ty of [place] [facility] BMI 2020-09-26 23:49:00 39.06 kg/m2 Universi ty of [place] [facility] Systolic blood 2020-09-26 23:45:00 103 mm[Hg] Univer sity of pressure [place] [facility] Diastolic blood 2020-09-26 23:45:00 62 mm[Hg] Unive rsity of pressure [place] [facility] Heart rate 2020-09-26 23:45:00 107 /min Universi ty of [place] [facility] Body temperature 2020-09-26 23:45:00 36.61 [place] Univ ersity of [place] [facility] Respiratory rate 2020-09-26 23:45:00 18 /min Univ ersity of [place] [facility] Oxygen saturation in 2020-09-26 23:45:00 97 /min University of Arterial blood by [place] [employer] Pulse oximetry Branch Body height 2020-09-26 23:49:00 152.4 cm Universi ty of [place] [facility] Body weight 2020-09-26 23:49:00 90.719 kg Universi ty of [place] [facility] BMI 2020-09-26 23:49:00 39.06 kg/m2 Universi ty of [place] [facility] Systolic blood 2020-09-26 23:45:00 103 mm[Hg] Univer sity of pressure [place] [facility] Diastolic blood 2020-09-26 23:45:00 62 mm[Hg] Unive rsity of pressure [place] [facility] Heart rate 2020-09-26 23:45:00 107 /min Universi ty of [place] [facility] Body temperature 2020-09-26 23:45:00 36.61 [place] Univ ersity of [place] [facility] Respiratory rate 2020-09-26 23:45:00 18 /min Univ ersity of [place] [facility] Oxygen saturation in 2020-09-26 23:45:00 97 /min University of Arterial blood by [place] [employer] Pulse oximetry Branch Systolic blood 2020-07-17 14:00:00 112 mm[Hg] Univer sity of pressure [place] [facility] Diastolic blood 2020-07-17 14:00:00 65 mm[Hg] Unive rsity of pressure [place] [facility] Heart rate 2020-07-17 14:00:00 86 /min Universi ty of [place] [facility] Respiratory rate 2020-07-17 14:00:00 20 /min Univ ersity of [place] [facility] Oxygen saturation in 2020-07-17 14:00:00 100 /min University of Arterial blood by [facility] Pulse oximetry Branch Body temperature 2020-07-17 11:50:00 37.22 [place] [facility] Body weight 2020-07-17 11:50:00 86.183 kg Universi ty [facility] BMI 2020-07-17 11:50:00 37.11 kg/m2 Universi [facility] Systolic blood 2020-07-17 14:00:00 112 mm[Hg] [place] [facility] Diastolic blood 2020-07-17 14:00:00 65 mm[Hg] Unive rsity of [facility] Heart rate 2020-07-17 14:00:00 86 /min [facility] Respiratory rate 2020-07-17 14:00:00 20 /min [facility] Oxygen saturation in 2020-07-17 14:00:00 100 /min University of Arterial blood by [facility] Pulse oximetry Branch Body temperature 2020-07-17 11:50:00 37.22 [place] [facility] Body weight 2020-07-17 11:50:00 86.183 kg Universi [facility] BMI 2020-07-17 11:50:00 37.11 kg/m2 [facility] Procedures Procedure Date / Time Performed Performing Clinician Sour e RAPID STREP SCREEN FOR 2020-12-31 07:13:00 Akiko Dunaway [facility] GROUP A Medical Branch NOTICE OF PRIVACY 2020-12-31 06:34:54 Doctor Unassigned, No [facility] PRACTICES Name Medical Branch CONSENT/REFUSAL FOR 2020-12-31 06:34:35 [facility] Name Medical Branch TREATMENT CT HEAD WO CONTRAST 2020-11-20 18:18:22 John Rivera [facility] POCT TEST 2020-11-20 17:50:00 John Rivera [facility] BASIC METABOLIC PANEL 2020-11-20 17:24:00 John Rivera [facility] (NA, K, CL, CO2, Medical Branch GLUCOSE, BUN, CREATININE, CA) CBC WITH DIFF 2020-11-20 17:24:00 John Rivera [place] o f [facility] CONSENT/REFUSAL FOR 2020-11-20 16:36:59 Doctor Unassigned, No Un iversity of [place] DIAGNOSIS AND Name Medical Branch TREATMENT POCT TEST 2020-09-27 02:56:00 [facility] 2020-09-27 01:35:31 Doctor Unassigned, No [facility] Branch CONSENT/REFUSAL FOR 2020-09-26 23:26:24 Doctor Unassigned, No Un iversity of [place] DIAGNOSIS AND Name [facility] TREATMENT URINALYSIS 2020-07-17 14:08:00 Austin Cowart [facility] POCT TEST 2020-07-17 14:08:00 Austin Cowart [facility] CBC WITH DIFF 2020-07-17 12:25:00 Austin Cowart [facility] NOTICE OF PRIVACY 2020-07-17 11:48:39 Doctor Unassigned, No Univ ersity [facility] Medical [place] CONSENT/REFUSAL FOR 2020-07-17 11:44:41 Doctor Unassigned, No [facility] TREATMENT Plan of Care Planned Activity Planned Date Details Comments Source Future Scheduled Test Hepatitis C screening [facility] (procedure) [code = 054159027] Future Scheduled Test Screening for [facility] malignant neoplasm of cervix (procedure) [code = 278918485] Future Scheduled Test INFLUENZA VACCINE [facility] [code = INFLUENZA VACCINE] Future Scheduled Test COVID-19 VACCINE (1) [facility] [code = COVID-19 VACCINE (1)] Encounters Start End Encounter Admission Attending Care Care Encounter Source Date/Time Date/Time Type Type Clinicians Facility Department ID 2021-04-28 Emergency [facility] [id number] Univers [facility] Emergency [facility] [id number] Univers 21:27:[facility]-04-27 Emergency [facility] [id number] Univers 10:13:04 [facility] 2021-04-26 Emergency [facility] [id number] Univers 18:11:30 ity of [facility] 2020-12-31 2020-12-31 [facility] [id number] Univers 02:02:00 03:26:00 Akiko [place] [id number] i ty of [place] 4.2.7.2.686 [facility] [id number] [address] 2020-12-31 2020-12-31 [facility] 1.2.840.114 [id number] 02:02:00 03:26:00 Akiko [place] [id number] [place] 4.2.7.2.686 [place] [id number] [facility] 2020-11-20 2020-11-20 [facility] [id number] [facility] 11:47:00 15:01:00 John S [place] [id number] i ty of [place] 4.2.7.2.686 [facility] [id number] [address] 2020-11-20 2020-11-20 [facility] [id number] 11:47:00 15:01:00 John S [place] [id number] [place] 4.2.7.2.686 [place] [id number] [facility] 2020-09-26 2020-09-26 Emergency Tricia Herbert [facility] 1.2.840.114 [id number] Univers 18:51:00 22:39:00 Lluvia [place] 350.1.13.10 i ty of [place] 4.2.7.2.686 [facility] [id number] [address] 2020-09-26 2020-09-26 Emergency Tricia Herbert [facility] 1.2.840.114 [id number] 18:51:00 22:39:00 Lluvia [place] [id number] [place] 4.2.7.2.686 [place] [id number] [facility] 2020-08-06 2020-08-06 Emergency X MIGUEL OHEMILIA ERT [id number] Univers 10:13:00 12:49:00 JOHN [facility] 2020-08-01 2020-08-03 Inpatient [facility] [id number] [facility] 09:14:00 03:39:32 [facility] 2020-07-17 2020-07-17 Emergency Austin Cowart [facility] 1.2.840 .114 [id number] [facility] 05:53:00 08:59:00 Dani [place] [facility].13.10 [facility] 4.2.7.2.686 [facility] [id number] [address] 2020-07-17 2020-07-17 Emergency Austin Cowart [facility] 1.2.840 .114 [id number] 05:53:00 08:59:00 Dani Kauff[place] 350.1.13.10 [place] 4.2.7.2.686 [place] [id number] Results Test Description Test Time Test Comments Results Result Comments Source RAPID STREP SCREEN FOR GROUP A 2020-12-31 07:59:00 Test Item Value Reference [place] Interpretation Comme nts Streptococcus pyogenes (group A) antigen (test code = 27207- 2) Negative Negative Lab Interpretation (test code = 57997-3) Normal [facility] [id number] 18:21:18No acute findings. HISTORY:Head trauma, mod-severe hit left head, near syncope, persistentsevere headache and dizziness TECHNIQUE: Noncontrast head CT was performed. COMPARISON:None FINDINGS: The ventricles and sulci are appropriate for patient's age. There is no midline shift. The basal cisterns are preserved. No largevascular territory infarction, intracranial hemorrhage or mass effect isseen. The extracranial tissues demonstrate no acute findings. [facility], Radiant Results Inft User - 11/20/2020 1:22 PM CDT HISTORY:Head trauma, mod-severe hit left head, near syncope, persistentsevere headache and dizziness TECHNIQUE: Noncontrast head CT was performed.COMPARISON:NoneFINDINGS:The ventricles and sulci are appropriate for patient's age.There is no midline shift. The basal cisterns are preserved. No largevascular territory infarction, intracranial hemorrhage or mass effect isseen.The extracranial tissues demonstrate no acute findings.IMPRESSIONNo acute findings.[facility] MET[facility]OL[facility] (NA, K, CL, CO2, GLUCOSE, BUN, CREATININE, CA)2020-11-20 18:00:40 Test Item Value Reference [place] Interpretation Comments NA (test code = 137 mmol/L 135-145 3757259165) K (test code = 4.2 mmol/L 3.5-5.0 1866575003) CL (test code = 104 mmol/L 98-108 2163648161) CO2 TOTAL (test code = 22 mmol/L 23-31 L 8708560292) AGAP (test code = 2-16 9860263537) BUN (test code = 10 mg/dL 7-23 1232748201) GLUCOSE (test code = 150 mg/dL 70-110 H 0909917561) CREATININE (test code = 0.59 mg/dL 0.50-1.04 5017750992) CALCIUM (test code = 9.5 mg/dL 8.6-10.6 1696458660) eGFR (test code = mL/min/1.73m2 2339092972) TOBI (test code = TOBI) Association of [...] tests). Lab Interpretation Abnormal (test code = 28899-9) [facility] [id number] 17:50:00 Test Item Value Reference [place] Interpretation Comments POCT PREG (test code = 1605) negative On board controls acceptable with present C Line (test code = 3574) POCT PREG LOT # (test code = 3575) [id number] POCT PREG TEST DATE (test 05/27/2022 code = 3576) Lab Interpretation (test code = Normal 52515-2) [facility] WITH [id number] 17:32:17 Test Item Value Reference [place] Interpretation Comments WBC (test code = See_Comment [Automated 7990-2) message] The sy stem which generated this result transmitted reference range : 4.30 - 11.10 10*3/?L. The reference range was not used to interpret this result as normal/abnormal . RBC (test code = See_Comment [Automated 149-8) message] The sy stem which generated this [...] RDW-SD (test code = 40.4 fL 39.0-49.9 57659-0) RDW-CV (test code = 13.0 % 12.0-15.5 788-0) PLT (test code = See_Comment H [Automated 777-3) message] The sy stem which generated this result transmitted reference range : 166 - 358 10*3/ ?L. The reference r shira was not used to interpret this result as normal/abnormal . MPV (test code = 9.5 fL 9.5-12.9 66219-2) NRBC/100 WBC (test See_Comment [Automat ed code = 3745795181) message] The system which generated this result transmitted reference range : 0.0 - 10.0 /100 WBCs. The refer ence range was not u sed to interpret th is result as normal/abnormal . NRBC x10^3 (test code <0.01 See_Comment [Auto mated = 4340503264) message] The s ystem which generated this result transmitted reference range : 10*3/?L. The reference range was not used to interpret this result as normal/abnormal . GRAN MAT (NEUT) % 83.0 % (test code = 770-8) IMM GRAN % (test code 0.70 % = 5570213201) LYMPH % (test code = 12.5 % 736-9) MONO % (test code = 3.7 % 5905-5) EOS % (test code = 0.0 % 713-8) BASO % (test code = 0.1 % 706-2) GRAN MAT x10^3(ANC) 8.41 10*3/uL 1.88-7.09 H (test code = 6136853749) IMM GRAN x10^3 (test 0.07 10*3/uL 0.00-0.06 H code = 1313561113) LYMPH x10^3 (test code 1.26 10*3/uL 1.32-3.29 L = 731-0) MONO x10^3 (test code 0.37 10*3/uL 0.33-0.92 = 742-7) EOS x10^3 (test code = <0.03 0.03-0.39 L 711-2) BASO x10^3 (test code <0.03 0.01-0.07 = 704-7) Lab Interpretation Abnormal (test code = 31200-2) [facility] [id number] 02:56:00 Test Item Value Reference [place] Interpretation Comments POCT PREG (test code = 1605) negative On board controls acceptable with present C Line (test code = 3574) POCT PREG LOT # (test code = 3575) [id number] POCT PREG TEST DATE (test 02/25/2022 code = 3576) Lab Interpretation (test code = Normal 66124-9) [facility] Center[facility] GC DNA BY [id number] 14:24:00 Test Item Value Reference [place] Interpretation Comments C. TRACHOMATIS DNA BY Negative Negative PCR (test code = CHLAMTDNA) N. GONORRHOEAE DNA BY Negative Negative Perfor med At: ST PCR (test code = [facility] James NGONORDNA) [id number] [facility] [place], [place] [id number] Rodrigues MD Ph:[phone] - DUP AB/PEL/SC/[id number] 14:12:00 [facility] : 1995 Sex: F Patient Name: FATMATA DEGROOT Unit No: [id number] EXAMS: CPT CODE: [id number] DUP AB/PEL/SC/LTD 66059 PELVIC ULTRASOUND, 08/01/2020: COMPARISON: CT pelvis dated [...] (1412) t.SDR.AJ13 Orig Print D/T: S: 08/01/2020 (7754) [facility] NAME: FATMATA DEGROOT Radiology DepartmentPHYS: Winter Landaverde MD [address] : 1995 AGE: 24 SEX: F [place] [address] LOC: ERS PHONE #: [phone] EXAM DATE: 08/01/2020 STATUS: REG ER FAX #: [phone] RAD NO: Page 1 Signed Report Patient Name: FATMATA DEGROOT Unit No: [id number] EXAMS: CPT CODE: [id number] DUP AB/PEL/SC/LTD 50803 <Continued> [facility] NAME: FATMATA DEGROOT Radiology Department PHYS: Winter Landaverde MD [address] [place] : 1995 AGE: 24 SEX: F [place], [place] [address] LOC: .ERS PHONE #: [phone] DATE: 08/01/2020 STATUS: REG ER FAX #: [phone] RAD NO: Page 2 Signed Report- US TRANSVAGINAL [id number] 14:12:00[facility] : 1995 Sex: F Patient Name: FATMATA DEGROOT Unit No: [id number] EXAMS: CPT CODE: [id number] US TRANSVAGINAL W/PELVIS 99696 PELVIC ULTRASOUND, 08/01/2020: COMPARISON: CT pelvis dated [...] Austin Barrera Technologist: Alexandra Elder RDMS Probe: [id number] Trnscrbd D/ (1412) AlfredoAJ13 Orig Print D/T: S: 08/01/2020 (3735) [facility] NAME: FATMATA DEGROOT Radiology DepartmentPHYS: CANAL.Jay Winter Mccollum MD [address] : 1995 AGE: 24 SEX: F [place], [place] [address] LOC: SANDY PHONE #: [phone] EXAM DATE: 08/01/2020 STATUS: REG ER FAX #: [phone] RAD NO: Page 1 Signed Report Patient Name: FATMATA DEGROOT Unit No: [id number] EXAMS: CPT CODE: [id number] US TRANSVAGINAL W/PELVIS 66231 <Continued> [facility] NAME: FATMATA DEGROOT Radiology Department PHYS: Winter Landaverde MD [address] : 1995 AGE: 24 SEX: F [place], [place] [address] LOC: SANDY PHONE #: [phone] DATE: 08/01/2020 STATUS: REG ER FAX #: [phone] RAD NO: Page 2 Signed Report- US PELVIS [id number] 14:12:00[facility] : 1995 Sex: F Patient Name: FATMATA DEGROOT Unit No: [id number] EXAMS: CPT CODE: [id number] US PELVIS COMPLETE 36740 PELVIC ULTRASOUND, 08/01/2020: COMPARISON: CT pelvis dated [...] t.SDR.[email or web address] Orig Print D/T: S: 08/01/2020 (1415) [facility] NAME: FATMATA DEGROOT Radiology DepartmentPHYS: Winter Landaverde MD [address] : 1995 AGE: 24 SEX: F [place] [address] LOC: ShaylaERS PHONE #: [phone] EXAM DATE: 08/01/2020 STATUS: REG ER FAX #: [phone] RAD NO: Page 1 Signed Report Patient Name: FATMATA DEGROOT Unit No: [id number] EXAMS: CPT CODE: [id number] US PELVIS COMPLETE 48749 <Continued> [facility] NAME: FATMATA DEGROOT Radiology Department PHYS: Winter Landaverde MD [address] : 1995 AGE: 24 SEX: F [place] [address] LOC: ShaylaERS PHONE #: [phone] DATE: 08/01/2020 STATUS: REG ER FAX #: [phone] RAD NO: Page 2 Signed Report- CT ABD PELVIS W/O [id number] 10:58:00[facility] : 1995 Sex: F Patient Name: FATMATA DEGROOT Unit No: [id number] EXAMS: CPT CODE: [id number] CT ABD PELVIS W/O CONT 15402 CT ABDOMEN/CT STONE SURVEY WITHOUT CONTRAST, 08/01/2020 [...] middle lobe pulmonary nodule. [facility] NAME: FATMATA DEGROOT Radiology Department PHYS: Winter Landaverde MD [address] : 1995 AGE: 24 SEX: F [place], [place] [address] LOC: SANDY PHONE #: [phone] EXAM DATE: 08/01/2020 STATUS: REG ER FAX #:[phone] RAD NO: Page 1 Signed Report 1 Patient Name: FATMATA DEGROOT Unit No: [id number] EXAMS: CPT CODE: [id number] CT ABD PELVIS W/O CONT 71405 <Continued> CT PELVIS WITHOUT CONTRAST: No opaque [...] Joe Agudelo MD CC: Winter Mccollum MD; [facility] Technologist: Art Church RT, CT CTDI: 13.28 DLP: 653.43 Trnscrbd D/ (1058) AlfredoAJ13 [facility] NAME: PERLAFATMATA Radiology Department PHYS: Winter Landaverde MD [address] : 1995 AGE: 24 SEX: F [place], [place] [address] LOC: SANDY PHONE #: [phone] EXAM DATE: 08/01/2020 STATUS: REG ER FAX #: [phone] RAD NO: Page 2 Signed Report 1 Patient Name: FATMATA DEGROOT Unit No: [id number] EXAMS: CPT CODE: [id number] CT ABD PELVIS W/O CONT 95124 <Continued> Orig Print D/T: S: 08/01/2020 (1101) [facility] NAME: FATMATA DEGROOT Radiology Department PHYS: Winter Landaverde MD [address] : 1995 AGE: 24 SEX: F [place], [place] [address] LOC: SANDY PHONE #: [phone] EXAM DATE: 08/01/2020 STATUS: BALTAZAR LOVE FAX #: [phone] RAD NO: Page 3 Signed Report 1UA RFLX MICR CULT IF [id number] 10:04:00 Test Item Value Reference Range Interpretation [...] culture: Suprapubic PainSpecimen Description: CLEAN CATCHUR HCG [id number] 10:04:00 Test Item Value Reference Range Interpretation [...] Description: CLEAN CATCHUA RFLX MICR CULT IF [id number] 10:03:00 Test Item Value Reference Range Interpretation [...] culture: Suprapubic PainSpecimen Description: CLEAN CATCHUR HCG [id number] 10:03:00 Test Item Value Reference Range Interpretation Comments UR HCG QUAL (test code = HCGQLU) Indication for culture: Suprapubic PainSpecimen Description: CLEAN CATCH [id number] 14:39:00 Test Item Value Reference Range Interpretation Comments APPEARANCE (test code = Hazy Clear A 7339054685) COLOR (test code = Yellow Yellow 7132642105) PH (test code = 4.8-8.0 1484602135) SP GRAVITY (test code = 1.003-1.030 4374819639) GLU U QUAL (test code = Normal Normal 2588979780) BLOOD (test code = Negative Negative INTERFERE NCE FROM 7404565996) ASCORBIC ACID M AY CAUSE FALSE NEG ATIVE RESULT KETONES (test code = Negative Negative 4281257220) PROTEIN (test code = Negative Negative 2887-8) UROBILIN (test code = Normal Normal 1588421124) BILIRUBIN (test code = Negative Negative 7506583628) NITRITE (test code = Negative Negative 3980736534) LEUK SILVINO (test code = Negative Negative 5204041814) RBC/HPF (test code = See_Comment [Autom ated message] 1733455572) The system [employer] generated this result transmitted ref erence range: 0 - 3 HP F. The reference range was not used to int erpret this result as normal/abnormal . WBC/HPF (test code = <1 See_Comment [Autom ated message] 1095087096) The system [employer] generated this result transmitted ref erence range: 0 - 5 HP F. The reference range was not used to int erpret this result as normal/abnormal . BACTERIA (test code = Few Negative A 3740862845) MUCOUS (test code = Slight Negative LPF A 2021776000) SQ EPITH (test code = HPF 0734467158) Lab Interpretation (test Abnormal code = 68165-8) [id number] 14:08:00 Test Item Value Reference Range Interpretation Comments POCT PREG (test code = 1605) negative On board controls acceptable with present C Line (test code = 3574) POCT PREG LOT # (test code = 3575) [id number] POCT PREG TEST DATE (test 2022-02-25 code = 3576) Lab Interpretation (test code = Normal 00723-6) [facility] WITH [id number] 12:41:00 Test Item Value Reference Range Interpretation Comments WBC (test code = See_Comment [Automated 5690-2) message] The sy stem which generated this result transmitted reference range : 4.30 - 11.10 10*3/?L. The reference range was not used to interpret this result as normal/abnormal . RBC (test code = See_Comment [Automated 129-8) message] The sy stem which generated this [...] RDW-SD (test code = 40.8 fL 39-49.9 78071-5) RDW-CV (test code = 13.0 % 12-15.5 788-0) PLT (test code = See_Comment H [Automated 777-3) message] The sy stem which generated this result transmitted reference range : 166 - 358 10*3/ ?L. The reference r shira was not used to interpret this result as normal/abnormal . MPV (test code = 9.5 fL 9.5-12.9 21078-1) NRBC/100 WBC (test See_Comment [Automat ed code = 9332223162) message] The system which generated this result transmitted reference range : 0.0 - 10.0 /100 WBCs. The refer ence range was not u sed to interpret th is result as normal/abnormal . NRBC x10^3 (test code <0.01 See_Comment [Auto mated = 2843534155) message] The s ystem which generated this result transmitted reference range : 10*3/?L. The reference range was not used to interpret this result as normal/abnormal . GRAN MAT (NEUT) % 49.7 % (test code = 770-8) IMM GRAN % (test code 0.40 % = 5561514944) LYMPH % (test code = 37.6 % 736-9) MONO % (test code = 6.3 % 5905-5) EOS % (test code = 5.4 % 713-8) BASO % (test code = 0.6 % 706-2) GRAN MAT x10^3(ANC) 4.65 10*3/uL 1.88-7.09 (test code = 0519625200) IMM GRAN x10^3 (test 0.04 10*3/uL 0-0.06 code = 0895749458) LYMPH x10^3 (test code 3.52 10*3/uL 1.32-3.29 H = 731-0) MONO x10^3 (test code 0.59 10*3/uL 0.33-0.92 = 742-7) EOS x10^3 (test code = 0.51 10*3/uL 0.03-0.39 H 711-2) BASO x10^3 (test code 0.06 10*3/uL 0.01-0.07 = 704-7) Lab Interpretation Abnormal (test code = 14672-2) [facility] W/AUTO [id number] 07:27:00 Test Item Value Reference Range Interpretation [...] NORMAL code = PLTMR) AG HEPATITIS B [id number] 04:15:00 Test Item Value Reference Range Interpretation Comments AG HEPATITIS B SURFACE (test code NONREACTIVE NONREACTIVE = HBSAG) AB HEPATITIS C [id number] 04:15:00 Test Item Value Reference Range Interpretation Comments AB HEPATITIS C (test code = NONREACTIVE NONREACTIVE HCVAB) SIGNAL TO CUTOFF (test code = 0.13 <0.80 N CUTOFF) RUBELLA [id number] 04:15:00 Test Item Value Reference Range Interpretation Comments RUBELLA SCREEN 70.2 IUnit/ml Results >10. 0IUnits/ml (test code = are considered positive RUBSC) inaccordance wi th the CLSI guidelines and based on the [employer] S tandard for Anti-Rubell a serum as anindicator of immune status and a br eakpoint to detect mostseropositiv e persons. AB [id number] 04:15:00 Test Item Value Reference Range Interpretation Comments AB TREPONEMA (test code = TREPAB) NONREACTIVE NONREACTIVE AG HEPATITIS B [id number] 04:00:00 Test Item Value Reference Range Interpretation Comments AG HEPATITIS B SURFACE (test code NONREACTIVE NONREACTIVE = HBSAG) AB HEPATITIS C [id number] 04:00:00 Test Item Value Reference Range Interpretation Comments AB HEPATITIS C (test code = HCVAB) NONREACTIVE SIGNAL TO CUTOFF (test code = CUTOFF) <0.80 RUBELLA [id number] 04:00:00 Test Item Value Reference Range Interpretation Comments RUBELLA SCREEN 70.2 IUnit/ml Results >10. 0IUnits/ml (test code = are considered positive RUBSC) inaccordance wi th the CLSI guidelines and based on the [employer] S tandard for Anti-Rubell a serum as anindicator of immune status and a br eakpoint to detect mostseropositiv e persons. AB [id number] 04:00:00 Test Item Value Reference Range Interpretation Comments AB TREPONEMA (test code = TREPAB) NONREACTIVE NONREACTIVE CBC W/AUTO [id number] 00:36:00 Test Item Value Reference Range Interpretation [...]
[2022-01-16 11:11] LABS: Urine Blood 2+ (Negative); Urine Glucose Negative (Negative); Urine Protein Trace (Negative)
[2022-01-16 11:12] LABS: Absolute Lymphocytes (CBC) 5.1 K/uL (0.7-4.9); Hematocrit 43.6 % (36.0-45.0); Lymphocytes % 44.1 % (15.3-44.8); MCV 86.7 fL (80-100); MPV 7.4 fL (7.6-11.3); RBC Red Blood Cell Count 5.03 M/uL (3.86-4.86)
[2022-01-16] MEDS ORDERED: ONDANSETRON 4 MG/2 ML VIAL ONE (11:25)
[2022-01-16] MEDS ORDERED: MORPHINE 4 MG/ML SYR ONE ×2 (11:25→14:26)
[2022-01-16] MEDS ORDERED: NA CHLORIDE 0.9% 1,000 ML ONE (11:25)
[2022-01-16 11:32] LABS: Urine Bacteria None Seen /HPF (<20)
[2022-01-16 11:33] LABS: ALT/SGPT 23 U/L (12-78); Albumin 4.2 g/dL (3.4-5.0); Alkaline Phosphatase 65 U/L (45-117); BUN Blood Urea Nitrogen 5 mg/dL (7-18); Bicarbonate 22 mmol/L (21-32); Bilirubin Total 0.2 mg/dL (0.2-1.0); Glomerular Filtration Rate 88 ml/min (=/>90); Glucose Level 98 mg/dL (74-106); Lipase 63 U/L (73-393); Protein, Total 8.4 g/dL (6.4-8.2); Sodium Level 139 mmol/L (136-145)
[2022-01-16 11:37] LABS: AST/SGOT < 3 U/L (15-37); HCG, Quantitative < 1 mIU/mL (1-3)
--- NOTE | 2022-01-16 12:24 | RAD REPORT ---
EXAM DESCRIPTION: CT - Abdomen Pelvis W Contrast - 01/16/2022 12:06 pm CLINICAL HISTORY: Abdominal pain COMPARISON: 2020 TECHNIQUE: Computed axial tomography of the abdomen pelvis was obtained. 100 cc Isovue-300 was admin istered intravenously. Oral contrast was not requested which limits evaluation of bowel and appendix All CT scans are performed using dose optimization technique as appropriate and may include automated exposure control or mA/KV adjustment according to patient size. FINDINGS: The liver, spleen, pancreas, adrenal and kidneys appear unremarkable. There is no evidence of diverticulitis. Normal appendix. No adnexal mass Diastases rectus abdominis muscles 5.7 centimeters IMPRESSION: No acute abnormality is displayed.
[2022-01-16] MEDS ORDERED: KETOROLAC 30 MG/ML INJ ONE (12:45)
--- NOTE | 2022-01-16 14:46 | ER ---
Nurse's Notes [facility] Name: Carla Duncan Age: 26 yrs Sex: Female : 1995 Arrival Date: 01/16/2022 Time: 10:29 Bed 9 Private MD: Pancho Ortega Diagnosis: Lower abdominal pain, unspecified Presentation: 01/16 10:48 Chief complaint: Patient states: left pelvic pain that began 3 days ago. Pt states "I aa5 am bleeding from my front and back only when I wipe, I think it may be my vagina". Onset of symptoms was December 2021. 10:48 Acuity: VENKATESH 2 aa5 10:48 Coronavirus screen: At this time, the client does not indicate any symptoms associated aa5 with coronavirus-19. Ebola Screen: No symptoms or risks identified at this time. Initial Sepsis Screen: Does the patient meet any 2 criteria? No. Patient's initial sepsis screen is negative. Does the patient have a suspected source of infection? No. Patient's initial sepsis screen is negative. Risk Assessment: Do you want to hurt yourself or someone else? Patient reports no desire to harm self or others. 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 Nutritional screening: No deficits noted. aa5 Tuberculosis screening: No symptoms or risk factors identified. Fall Risk None identified. Assessment: 10:48 General: Appears uncomfortable, Behavior is cooperative, anxious. Pain: Complains of aa5 pain in left side of pelvis Pain currently is 10 out of 10 on a pain scale. Quality of pain is described as crampy, Pain began 2-3 days ago. Is continuous, Aggravated by increased activity, repositioning. Neuro: Level of Consciousness is awake, alert, obeys commands, Oriented to person, place, time, situation. Cardiovascular: Heart tones S1 S2 present Rhythm is regular. Respiratory: Airway is patent Respiratory effort is even, Respiratory pattern is regular, symmetrical, hyperventilation. GI: Abdomen is round non-distended, Bowel sounds present X 4 quads. Abdomen is tender to palpation in left lower quadrant Reports diarrhea, since 2-3 days ago Patient currently denies nausea, vomiting. : Genitalia appear normal Reports possible vaginal bleeding/or rectal bleeding when wiping. Denies discharge. EENT: No signs and/or symptoms were reported regarding the EENT system. Derm: Skin is pink, warm \\T\\ dry. Musculoskeletal: Range of motion: intact in all extremities. 11:27 Reassessment: Patient is alert, oriented x 3, equal unlabored respirations, skin aa5 warm/dry/pink. 11:27 General: Appears uncomfortable, Behavior is cooperative, anxious. aa5 12:20 Reassessment: Patient is alert, oriented x 3, equal unlabored respirations, skin aa5 warm/dry/pink. Patient states symptoms have not improved. Pain: Pain currently is 8 out of 10 on a pain scale. 12:20 Reassessment: PA notified of c/o pain. . aa5 13:00 Reassessment: Patient is alert, oriented x 3, equal unlabored respirations, skin aa5 warm/dry/pink. General: Appears comfortable. Pain: Pain currently is 7 out of 10 on a pain scale. 13:00 General: Appears comfortable, Behavior is calm, cooperative. aa5 14:18 Reassessment: Patient is alert, oriented x 3, equal unlabored respirations, skin aa5 warm/dry/pink. General: Appears comfortable. Pain: Pain currently is 7 out of 10 on a pain scale. 15:20 Reassessment: Patient is alert, oriented x 3, equal unlabored respirations, skin aa5 warm/dry/pink. Vital Signs: 10:48 BP 125 / 96; Pulse 130; Resp 32 S; Temp 98.5(O); Pulse Ox 100% on R/A; Weight 88 kg aa5 (R); Height 5 ft. 0 in. (152.40 cm) (R); 13:00 BP 112 / 62; Pulse 107; Resp 18 S; Temp 98.0(O); Pulse Ox 98% on R/A; aa5 14:27 BP 113 / 72; Pulse 105; Resp 16 S; Temp 98.0(TE); Pulse Ox 98% on R/A; aa5 15:20 BP 101 / 53; Pulse 99; Resp 14 S; Pulse Ox 97% on R/A; Pain 5/10; aa5 10:48 Body Mass Index 37.89 (88.00 kg, 152.40 cm) aa5 ED Course: 10:29 Patient arrived in ED. mr 10:30 Pancho Ortega MD is Private Physician. mr 10:42 Michael Dowd PA is PHCP. cp 10:42 Hal Watters MD is Attending Physician. cp 10:48 Arm band placed on. aa5 10:48 Patient has correct armband on for positive identification. aa5 10:49 Triage completed. aa5 11:40 Rashida Guajardo, JUDI is Primary Nurse. aa5 12:08 CT Abd/Pelvis - IV Contrast Only In Process Unspecified. EDMS 14:15 Assist provider with pelvic exam: Set up pelvic tray. Performed by Michael MADSEN aa5 Specimens sent to lab. Patient tolerated well. 15:14 IV discontinued, intact, bleeding controlled, No redness/swelling at site. Pressure kc6 dressing applied. 15:14 IV dc'd by tech. aa5 Administered Medications: 11:26 Drug: morphine 4 mg Route: IVP; Infused Over: 4 mins; Site: left antecubital; aa5 12:20 Follow up: Response: No adverse reaction aa5 11:26 Drug: Zofran (Ondansetron) 4 mg Route: IVP; Site: left antecubital; aa5 12:20 Follow up: Response: No adverse reaction aa5 11:26 Drug: NS 0.9% 1000 ml Route: IV; Rate: 1 bolus; Site: left antecubital; aa5 12:35 Follow up: IV Status: Completed infusion; IV Intake: 1000ml aa5 12:35 Drug: Ketorolac 30 mg Route: IVP; Site: right upper arm; aa5 13:00 Follow up: Response: No adverse reaction aa5 14:18 Drug: morphine 4 mg Route: IVP; Infused Over: 4 mins; Site: right upper arm; aa5 14:25 Follow up: Response: No adverse reaction aa5 Medication: 15:30 VIS not applicable for this client. aa5 Intake: 12:35 IV: 1000ml; Total: 1000ml. aa5 Outcome: 14:45 Discharge ordered by . cp 15:30 Discharged to home ambulatory. aa5 15:30 Condition: improved 15:30 Discharge instructions given to patient, Instructed on discharge instructions, follow up and referral plans. medication usage, Demonstrated understanding of instructions, follow-up care, medications, Prescriptions given X 2. 15:40 Patient left the ED. aa5 Signatures: Dispatcher [employer] Kathryn Wynne, Rashida, RN RN aa5 Michael Dowd PA PA cp Campbell, Kaitlyn kc6 Corrections: (The following items were deleted from the chart) 10:51 10:48 Chief complaint: Patient states: left pelvic pain that began 3 days ago. aa5 aa5 10:52 10:48 Pulse 130bpm; Resp 32bpm; Spontaneous; Pulse Ox 100% RA; 88 kg Reported; Height 5 aa5 ft. 0 in. Reported; BMI: 37.8; aa5 10:54 10:48 Pulse 130bpm; Resp 32bpm; Spontaneous; Pulse Ox 100% RA; Temp 98.5F Oral; 88 kg aa5 Reported; Height 5 ft. 0 in. Reported; BMI: 37.8; aa5
--- NOTE | 2022-01-16 14:46 | EDPHYS ---
Physician Documentation [facility] Name: Carla Duncan Age: 26 yrs Sex: Female : 1995 Arrival Date: 01/16/2022 Time: 10:29 Bed 9 Private MD: Pancho Ortega ED Physician Hal Watters HPI: 01/16 10:50 This 26 yrs old Female presents to ER via Ambulatory with complaints of Pelvic cp Pain, Vaginal Bleeding, Rectal Bleeding. 10:50 The patient presents with abdominal pain in the left lower quadrant. Onset: The cp symptoms/episode began/occurred 3 day(s) ago. 10:50 The symptoms do not radiate. cp 10:50 Associated signs and symptoms: Pertinent positives: vaginal bleeding, rectal bleeding, cp blood when wiping after urinating, Pertinent negatives: chest pain, constipation, diarrhea, fever, vomiting. The symptoms are described as constant, sharp. Modifying factors: the symptoms are aggravated by movement, walking. Severity of pain: in the emergency department the pain is unchanged despite home interventions. [employer]: 10:49 LMP 12/20/2021 aa5 Historical: - Allergies: 10:49 Amoxicillin; aa5 - PMHx: 10:49 Anxiety; Bipolar disorder; aa5 - PSHx: 10:49 section; aa5 ROS: 10:55 Abdomen/GI: Positive for abdominal pain, of the left lower quadrant. cp 10:55 Constitutional: Negative for body aches, chills, fever, poor PO intake. cp 10:55 Eyes: Negative for injury, pain, redness, and discharge. cp 10:55 Cardiovascular: Negative for chest pain, palpitations. 10:55 Respiratory: Negative for cough, shortness of breath, wheezing. 10:55 Back: Negative for injury or acute deformity, decreased range of motion. 10:55 : Positive for vaginal bleeding, Negative for flank pain. 10:55 Neuro: Negative for altered mental status, headache, weakness. 10:55 All other systems are negative. Exam: 11:00 Constitutional: The patient appears in no acute distress, alert, awake, non-toxic, well cp developed, well nourished, obese, uncomfortable. 11:00 Head/Face: Normocephalic, atraumatic. cp 11:00 Eyes: Periorbital structures: appear normal, Conjunctiva: normal, no exudate, no injection, Sclera: no appreciated abnormality, Lids and lashes: appear normal, bilaterally. 11:00 ENT: External ear(s): are unremarkable, Nose: is normal, Mouth: Lips: moist, Oral mucosa: pink and intact, moist, Posterior pharynx: Airway: no evidence of obstruction, patent. 11:00 Chest/axilla: Inspection: normal. 11:00 Cardiovascular: Rate: tachycardic, Rhythm: regular. 11:00 Respiratory: the patient does not display signs of respiratory distress, Respirations: normal, no use of accessory muscles, no retractions, labored breathing, is not present, Breath sounds: are clear throughout, no decreased breath sounds, no stridor, no wheezing. 11:00 Abdomen/GI: Inspection: obese Bowel sounds: active, all quadrants, Palpation: soft, in all quadrants, severe abdominal tenderness, in the left lower quadrant. 11:00 Back: CVA tenderness, is absent. 14:00 : Pelvic Exam: External exam: is normal, Speculum exam: no bleeding is noted, no cp cervicitis, os that is closed, discharge, is not appreciated, the nurse was present for the exam, Rectal exam: Stool: brown, Guaiac testing: results were negative for occult blood. Vital Signs: 10:48 BP 125 / 96; Pulse 130; Resp 32 S; Temp 98.5(O); Pulse Ox 100% on R/A; Weight 88 kg aa5 (R); Height 5 ft. 0 in. (152.40 cm) (R); 13:00 BP 112 / 62; Pulse 107; Resp 18 S; Temp 98.0(O); Pulse Ox 98% on R/A; aa5 14:27 BP 113 / 72; Pulse 105; Resp 16 S; Temp 98.0(TE); Pulse Ox 98% on R/A; aa5 15:20 BP 101 / 53; Pulse 99; Resp 14 S; Pulse Ox 97% on R/A; Pain 5/10; aa5 10:48 Body Mass Index 37.89 (88.00 kg, 152.40 cm) aa5 MDM: 11:14 Patient medically screened. cp 14:45 Data reviewed: vital signs, nurses notes, lab test result(s), radiologic studies, CT cp scan. 14:45 Differential diagnosis: diverticulitis, non-specific abd pain, Ovarian Torsion, Pelvic cp Inflammatory Disease, Pyelonephritis, Ureterolithiasis, urinary tract infection. Counseling: I had a detailed discussion with the patient and/or guardian regarding: the historical points, exam findings, and any diagnostic results supporting the discharge/admit diagnosis, lab results, radiology results, to return to the emergency department if symptoms worsen or persist or if there are any questions or concerns that arise at home. Response to treatment: the patient's symptoms have markedly improved after treatment, and as a result, I will discharge patient. 01/16 11:02 Order name: CBC with Diff; Complete Time: 11:15 cp 01/16 11:15 Interpretation: Normal except: WBC 11.5; RBC 5.03; PLT 510; MPV 7.4; NAIN% 41.3; cp EOSINOPHIL % 8.4; LYMA 5.1; EOSA 1.0. 01/16 11:02 Order name: CMP; Complete Time: 12:28 cp 01/16 12:28 Interpretation: Normal except: BUN 5; GFR 88; AST < 3; TP 8.4; GLOB 4.2; A/G 1.0. cp 01/16 11:02 Order name: Lipase; Complete Time: 12:28 cp 01/16 11:02 Order name: Urine Microscopic Only; Complete Time: 12:28 cp 01/16 12:29 Interpretation: Abnormal: URBC 5-10. 01/16 11:02 Order name: HCG-Quantitative; Complete Time: 12:28 cp 01/16 11:11 Order name: Urine Dipstick-Ancillary; Complete Time: 11:15 EDMS 01/16 11:02 Order name: CT Abd/Pelvis - IV Contrast Only; Complete Time: 12:28 cp 01/16 11:12 Order name: Urine --Ancillary (enter results); Complete Time: 12:28 bd 01/16 14:12 Order name: GC (GONORR/CHLAMYDIA) Probe cp 01/16 14:12 Order name: Wet Prep; Complete Time: 14:45 cp 01/16 11:02 Order name: IV Saline Lock; Complete Time: 11:03 cp 01/16 11:02 Order name: Labs collected and sent; Complete Time: 11:03 cp 01/16 11:02 Order name: Urine Dipstick-Ancillary (obtain specimen); Complete Time: 11: cp 01/16 11:02 Order name: Urine Test (obtain specimen); Complete Time: : cp 01/16 13:04 Order name: Pelvic Exam Setup; Complete Time: 14:13 cp Administered Medications: 11: Drug: morphine 4 mg Route: IVP; Infused Over: 4 mins; Site: left antecubital; aa5 12:20 Follow up: Response: No adverse reaction aa5 11:26 Drug: Zofran (Ondansetron) 4 mg Route: IVP; Site: left antecubital; aa5 12:20 Follow up: Response: No adverse reaction aa5 11:26 Drug: NS 0.9% 1000 ml Route: IV; Rate: 1 bolus; Site: left antecubital; aa5 12:35 Follow up: IV Status: Completed infusion; IV Intake: 1000ml aa5 12:35 Drug: Ketorolac 30 mg Route: IVP; Site: right upper arm; aa5 13:00 Follow up: Response: No adverse reaction aa5 14:18 Drug: morphine 4 mg Route: IVP; Infused Over: 4 mins; Site: right upper arm; aa5 14:25 Follow up: Response: No adverse reaction aa5 Disposition Summary: 01/16/22 14:45 Discharge Ordered Location: Home cp Problem: new cp Symptoms: have improved cp Condition: Stable cp Diagnosis - Lower abdominal pain, unspecified cp Followup: cp - With: Private Physician - When: 2 - 3 days - Reason: Recheck today's complaints Discharge Instructions: - Discharge Summary Sheet cp - Abdominal Pain, Adult cp Forms: - Medication Reconciliation Form cp - Thank You Letter cp - Antibiotic Education cp - Prescription Opioid Use cp Prescriptions: - Zofran 4 mg Oral Tablet - take 1 tablet by ORAL route every 12 hours As needed; 20 tablet; Refills: 0, cp Product Selection Permitted - Diclofenac Sodium 75 mg Oral Tablet Sustained Release - take 1 tablet by ORAL route 2 times per day; 30 tablet; Refills: 0, Product cp Selection Permitted Signatures: Dispatcher [employer] Rashida Harris RN RN aa5 Michael Dowd PA PA cp Corrections: (The following items were deleted from the chart) 01/17 15:10 01/16 10:50 Onset: The symptoms/episode began/occurred today, cp cp
[2022-01-16 16:05] VITALS: TEMP 98
[2022-01-16 16:09] VITALS: BP 101/53; O2SAT 97
== END 2022-01-16 15:40 | disposition home or self-care (01) ==
LOC: ER 10:27
DX: R10.32 Left lower quadrant pain (principal); Z88.1 Allergy status to other antibiotic agents
CPT/HCPCS: 85025; 36415; 81025; 87210; 84702; 83690; 80053; 87590; 87490; 74177; 99284; Q9967; J7030; J2405; 81003; 81015

== ENCOUNTER 2022-01-30 09:54 | Emergency (ER) | payer OTHER ==
--- OUTSIDE RECORDS SUMMARY | 2022-01-30 10:00 | XMS REPORT | Continuity of Care Document ---
:1995 Author Organization [facility] t Address [address] [place] [address] Care Team Providers Name Role Phone Asked, No Pcp Primary Care Physician Unavailable Akiko Darden Attending Clinician John Agarwal Attending Clinician Tricia Rice Attending Clinician JOHN RIVERA Attending Clinician Unavailable Austin Cowart MD Attending Clinician Dani Kauffman DO Attending Clinician Austin Barrera Admitting Clinician Unavailable Payers Payer Name Policy Type Policy Number Effective Date Expiration Date S shobha GOODETTER FROM [id number] 2020 [facility] 00:00:00 [employer] [place] [id number] 2019 00:00:00 Problems Condition Condition Condition Status Onset Resolution Last Treating Co mments Source Name Details Category Date Date Treatment Clinician Date Obesity Obesity Disease Active Univers (BMI (BMI 1-16 ity of 30-39.9) 30-39.9) 00:00: [place] 00 [facility] Branch Urinary Urinary Disease Active [...] Univers 5-23 ity of (vaginal (vaginal 00:00: [place] 00 Medical after after Branch ) ) trial trial Obesity in Obesity in Disease Active U nivers 5-23 ity of 00:00: [place] 00 [facility] Family Family Disease Active Univers history of history of 8-26 it y of spina spina 00:00: [place] bifida bifida 00 [facility] No known No known Disease Metho di [...] 00 take with Medic al s Benadryl [place] KETOROLA DRUG Active Other-Cmnt Univ ers C INGREDI 12-31 ity of 00:00: [place] 00 [facility] butorpha DA Active [place] [facility] nol 2-04 [...] 00 l of [place] codeine DA Active ND 2018- [facility] 1-19 [facility] 00[facility] [place] morphine DA Active U SWELLING 2018- [facility] 1-19 [facility] 00:[facility]: [facility] 00 l of [place] codeine DA Active ND nausea, 2018- [facility] headache -19 Woman[facility] 00:00: [facility] 00 l of [place] tramadol DA Active ND 2017- [facility] 2-31 Woman's 00:00: [facility]osp[facility] 00 l of [place] tramadol DA Active ND CHEST PAIN 2017- [facility] 2-31 Woman's 00:00: [...] TRAMADOL DRUG Active Anaphylaxis Uni vers INGREDI 5- ity of 00:00: [place] 00 Medical Branch TUSSIN DRUG Active Rash Univers DM COUGH 5-07 ity of MEDICINE 00:00: [place] 00 Medical Branch Tussin Propensi Active Rash Univers Dm Cough ty to 11-01 ity of Medicine adverse 00:00: [place] reaction Medical s Branch No Known DA Active U [facility] Allergie 3-14 Woman's s 00:00: Hospita 00 [facility] Family History Family Member Diagnosis Comments Start Date Stop Date Source Natural mother Diabetes [facility] Natural mother Menstrual problems [facility] Social History Social Habit Start Date Stop Date Quantity Comments Source Exposure to Not sure [facility] SARS-CoV-2 [facility] (event) Branch Tobacco use and 2020-12-31 2020-12-31 Never used Universit y of exposure 00:00:00 00:00:00 [facility] Alcohol intake 2020-12-31 2020-12-31 Current [facility] 00:00:00 00:00:00 non-drinker of [facility] alcohol [place] (finding) Alcohol Comment 2016-04-28 2016-04-28 social, weekly Metho [facility] 00:00:00 00:00:00 Sex [birth year] At [birth year] Universit y of 00:00:00 00:00:00 [facility] Smoking Status Start Date Stop Date Source Never smoker [facility] Medications Ordered Filled Start Stop Current Ordering Indication Dosage Frequency Signature Comments Components Source Medication Medication Date Date Medication? Clinician (SIG) Name Name ondansetron 2020- No 4mg 4 mg, Univ ers (ZOFRAN-ODT 12-31 Oral, ity of ) 09:15: 08:20 ONCE, 1 [place] disintegrat 00 :00 dose, Tue Med ical ing tablet 12/31/20 at [facility] ch 4 mg 0415, Routine diphenhydrA 2020- [...] 1 Ryan as mg 00 :00 dose, [facility] Medical 12/31/20 at Branch 0300, RODRICK methocarbam 2020- No 1000mg 1,000 mg, Univers oL 7- 07-06 Oral, ONCE ity of (ROBAXIN) 08:00: 07:17 NOW, 1 [place] tablet 00 :00 dose, Medical 1,000 mg 12/31/20 at Branch 0300, RODRICK ibuprofen Yes [id number] 800mg Take 1 U nivers 800 mg 7-06 tablet by ity of tablet 00:00: mouth [place] 00 every 8 Medical (eight) Branch hours as needed for Pain (scale 4-6). cyclobenzap Yes [id number] 10mg Take 1 Univers rine 10 mg 7-06 tablet by ity of tablet 00:00: mouth 3 [place] 00 (three) Medical times Branch daily as needed for Muscle Spasms. methocarbam Yes 500mg 500 mg, Un carolann oL - Oral, QID, ity of (ROBAXIN) 21:00: [place] tablet 500 00 on Wed Medical mg 11/20/20 at Branch 1600, Until Discontinu ed, Routine NaCl 0.9% 2020- No 1000mL at 999 Uni vers (NS) bolus 11-20 05-27 mL/hr, ity of infusion 20:30: 08:29 1,000 mL, Ryan as 1,000 mL 00 :00 IV Medical Infusion, [place] ONCE, 1 dose, [facility] 11/20/20 at 1530, STAT metoclopram 2020- No 10mg 10 mg, Uni vers dio HCl 11-20 Slow IV ity of (REGLAN) 20:15: 19:18 Push, [place] injection 00 :00 ONCE, 1 Medical 10 mg dose, [facility] 11/20/20 at 1515, RODRICK ketorolac 2020- No 30mg 30 mg, Unive rs (TORADOL) 11-20 Slow IV ity of injection 20:15: 19:18 Push, [place] 30 mg 00 :00 ONCE, 1 Medical dose, [facility] 11/20/20 at 1515, RODRICK
Fa culty member approving Restricted medication : RIVERA, JOHN S diphenhydrA No 25mg 25 mg, Uni vers MINE 11-20 05-26 Slow IV ity of (BENADRYL) 20:15: 20:15 Push, [place] injection 00 :00 ONCE, 1 Medical 25 mg dose, Wed Branch 11/20/20 at 1515, STAT butalbital- Yes 1{tbl} 1 tablet, Univers acetaminoph 5-26 Oral, ity of en-caff 18:12: Q4HPRN, [place] (ESGIC) 27 Starting Medical 50-325-40 Wed Branch mg tablet 1 11/20/20 at tablet 1312, Until Discontinu ed, Routine, zofran ketorolac Yes [id number] 10mg Take 1 Un carolann 10 mg 5-26 tablet by ity of tablet 00:00: mouth [place] 00 every 6 Medical (six) Branch hours as needed for Pain (scale 4-6). cyclobenzap Yes [id number] 10mg Take 1 Univers rine 10 mg 5-26 tablet by ity of tablet 00:00: mouth 3 [place] 00 (three) Medical times Branch daily. ketorolac Yes [id number] 10mg Take 1 Un carolann 10 mg 5-26 tablet by ity of tablet 00:00: mouth [place] 00 every 6 Medical (six) Branch hours as needed for Pain (scale 4-6). cyclobenzap Yes [id number] 10mg Take 1 Univers rine 10 mg 5-26 tablet by ity of tablet 00:00: mouth 3 [place] 00 (three) Medical times Branch daily. ketorolac No 30mg 30 mg, Unive rs (TORADOL) [...] 25mg 25 mg, Uni vers e 09-27 04- Intramuscu ity of (PHENERGAN) 03:45: 02:58 lar, ONCE, [place] injection 00 :00 1 dose, Medical 25 mg [place] 09/26/20 Branch at 2245, RODRICK ondansetron 0 Yes [id number] 4mg Take 1 Univers (ZOFRAN 4-01 tablet by ity of ODT) 4 mg 00:00: mouth [place] disintegrat 00 every 8 Medic al ing tablet (eight) Branch hours as needed for Nausea and Vomiting (N/V). ondansetron 0 Yes [id number] 4mg Take 1 Univers (ZOFRAN 4-01 tablet by ity of ODT) 4 mg 00:00: mouth [place] disintegrat 00 every 8 Medic al ing tablet (eight) Branch hours as needed for Nausea and Vomiting (N/V). ondansetron 2020-0 Yes [id number] 4mg Take 1 Univers (ZOFRAN 4-01 tablet by ity of ODT) 4 mg 00:00: mouth [place] disintegrat 00 every 8 Medic al ing tablet (eight) Branch hours as needed for Nausea and Vomiting (N/V). proMETHazin 2020-0 Yes [id number] 25mg Take 1 Univers e 25 mg 2-09 tablet by ity of tablet 00:00: mouth [place] 00 every 6 Medical (six) Branch hours as needed for Nausea and Vomiting (N/V). proMETHazin 2020-0 Yes [id number] 25mg Take 1 Univers e 25 mg 2-09 tablet by ity of tablet 00:00: mouth [place] 00 every 6 Medical (six) Branch hours as needed for Nausea and Vomiting (N/V). proMETHazin 2020-0 Yes [id number] 25mg Take 1 Univers e 25 mg 2-09 tablet by ity of tablet 00:00: mouth [place] 00 every 6 Medical (six) Branch hours as needed for Nausea and Vomiting (N/V). ketorolac 2020-0 2020- No 15mg 15 mg, Unive rs (TORADOL) 07-17 Slow IV ity of injection 13:30: 12:29 Push, [place] 15 mg 00 :00 ONCE, 1 Medical dose, Wed Branch 07/17/20 at 0730, RODRICK
Fa [facility] member approving Restricted medication : AUSTIN COWART NaCl 0.9% 2020- No 1000mL at 999 Uni vers (NS) IV 07-17 mL/hr, ity of infusion 13:30: 14:58 Intravenou [place] 1,000 mL 00 :00 s, ONCE, 1 Medic al dose, [facility] Branch 07/17/20 at 0730, RODRICK metoclopram 2020- [...] Name Td 2011-06-28 Completed University of 00:00:00 [place] [facility] Td 2011-06-28 Completed University of 00:00:00 [place] [facility] Td 2011-06-28 Completed University of 00:00:00 [facility] Branch Td 2011-06-28 Completed University of 00:00:00 [facility] Vital Signs Vital Name Observation Time Observation Value Comments Source Systolic blood 2020-12-31 06:49:00 125 mm[Hg] Univer sity of [facility] Diastolic blood 2020-12-31 06:49:00 93 mm[Hg] Unive rsity of [facility] Heart rate 2020-12-31 06:49:00 104 /min Univers ty [facility] Body temperature 2020-12-31 06:49:00 36.83 [place] [facility] Respiratory rate 2020-12-31 06:49:00 15 /min [facility] Body height 2020-12-31 06:49:00 152.4 cm Universi ty [facility] Body weight 2020-12-31 06:49:00 [facility] 2020-12-31 06:49:00 39.83 kg/m2 [facility] Oxygen saturation in 2020-12-31 06:49:00 99 /min [facility] Arterial blood by [facility] Pulse oximetry Branch Systolic blood 2020-12-31 06:49:00 125 mm[Hg] Univer sity of [facility] Diastolic blood 2020-12-31 06:49:00 93 mm[Hg] Unive rsity of [facility] Heart rate 2020-12-31 06:49:00 104 /min Universi ty [facility] Body temperature 2020-12-31 06:49:00 36.83 [place] [facility] 2020-12-31 06:49:00 15 /min [facility] Body height 2020-12-31 06:49:00 152.4 cm Universi ty [facility] [place] [facility] Body weight 2020-12-31 06:49:00 92.5 kg Universi ty [facility] [place] [facility] BMI 2020-12-31 06:49:00 39.83 kg/m2 Universi ty of [place] [facility] Oxygen saturation in 2020-12-31 06:49:00 99 /min University of Arterial blood by [facility] Pulse oximetry Branch Systolic blood 2020-11-20 19:58:00 146 mm[Hg] Univer sity of pressure [place] [facility] Diastolic blood 2020-11-20 19:58:00 95 mm[Hg] Unive rsity of pressure [place] [facility] Heart rate 2020-11-20 19:58:00 98 /min Universi ty [facility] [place] [facility] Body temperature 2020-11-20 19:58:00 37.17 [place] Univ ersity of [place] [facility] Respiratory rate 2020-11-20 19:58:00 17 /min Univ ersity of [place] [facility] Oxygen saturation in 2020-11-20 19:58:00 100 /min University of Arterial blood by [facility] Pulse oximetry Branch Body weight 2020-11-20 16:43:00 92.534 kg Universi ty [facility] [place] [facility] BMI 2020-11-20 16:43:00 39.84 kg/m2 Universi ty [facility] [place] [facility] Systolic blood 2020-11-20 19:58:00 146 mm[Hg] Univer sity of pressure [place] [facility] Diastolic blood 2020-11-20 19:58:00 95 mm[Hg] Unive rsity of pressure [place] [facility] Heart rate 2020-11-20 19:58:00 98 /min Universi ty [facility] [place] [facility] Body temperature 2020-11-20 19:58:00 37.17 [place] Univ ersity of [place] [facility] Respiratory rate 2020-11-20 19:58:00 17 /min Univ ersity of [place] [facility] Oxygen saturation in 2020-11-20 19:58:00 100 /min University of Arterial blood by [facility] Pulse oximetry Branch Body weight 2020-11-20 16:43:00 92.534 kg Universi ty [facility] [place] [facility] BMI 2020-11-20 16:43:00 39.84 kg/m2 Universi ty [facility] [place] [facility] Body height 2020-09-26 23:49:00 152.4 cm Universi ty [facility] [place] [facility] Body weight 2020-09-26 23:49:00 90.719 kg Universi ty [facility] [place] [facility] BMI 2020-09-26 23:49:00 39.06 kg/m2 Universi ty [facility] [place] [facility] Systolic blood 2020-09-26 23:45:00 103 mm[Hg] Univer sity of pressure [place] [facility] Diastolic blood 2020-09-26 23:45:00 62 mm[Hg] Unive rsity of pressure [place] [facility] Heart rate 2020-09-26 23:45:00 107 /min Universi ty [facility] [place] [facility] Body temperature 2020-09-26 23:45:00 36.61 [place] Univ ersity of [place] [facility] Respiratory rate 2020-09-26 23:45:00 18 /min Univ ersity of [place] [facility] Oxygen saturation in 2020-09-26 23:45:00 97 /min University of Arterial blood by [facility] Pulse oximetry Branch Body height 2020-09-26 23:49:00 152.4 cm Universi ty [facility] [place] [facility] Body weight 2020-09-26 23:49:00 90.719 kg Universi ty [facility] [place] [facility] BMI 2020-09-26 23:49:00 39.06 kg/m2 Universi ty [facility] [place] [facility] Systolic blood 2020-09-26 23:45:00 103 mm[Hg] Univer sity of pressure [place] [facility] Diastolic blood 2020-09-26 23:45:00 62 mm[Hg] Unive rsity of pressure [place] [facility] Heart rate 2020-09-26 23:45:00 107 /min Universi ty [facility] [place] [facility] Body temperature 2020-09-26 23:45:00 36.61 [place] Univ ersity of [place] [facility] Respiratory rate 2020-09-26 23:45:00 18 /min Univ ersity of [place] [facility] Oxygen saturation in 2020-09-26 23:45:00 97 /min University of Arterial blood by [facility] Pulse oximetry Branch Systolic blood 2020-07-17 14:00:00 112 mm[Hg] Univer sity of [facility] [place] [facility] Diastolic blood 2020-07-17 14:00:00 65 mm[Hg] Unive rsity of [facility] [place] [facility] Heart rate 2020-07-17 14:00:00 86 /min Universi ty of [place] [facility] [place] Respiratory rate 2020-07-17 14:00:00 20 /min [facility] ersity [facility] Oxygen saturation in 2020-07-17 14:00:00 100 /min University of Arterial blood by [facility] Pulse oximetry Branch Body temperature 2020-07-17 11:50:00 37.22 [place] [facility] Body weight 2020-07-17 11:50:00 86.183 kg Universi ty of [facility] BMI 2020-07-17 11:50:00 37.11 kg/m2 Universi ty [facility] Systolic blood 2020-07-17 14:00:00 112 mm[Hg] Univer sity of pressure [facility] Diastolic blood 2020-07-17 14:00:00 65 mm[Hg] Unive rsity of [facility] Heart rate 2020-07-17 14:00:00 86 /min Universi ty [facility] Respiratory rate 2020-07-17 14:00:00 20 /min [facility] Oxygen saturation in 2020-07-17 14:00:00 100 /min University of Arterial blood by [facility] Pulse oximetry Branch Body temperature 2020-07-17 11:50:00 37.22 [place] [facility] Body weight 2020-07-17 11:50:00 86.183 kg Universi ty [facility] BMI 2020-07-17 11:50:00 37.11 kg/m2 Universi [facility] Procedures Procedure Date / Time Performed Performing Clinician Sour e RAPID STREP SCREEN FOR 2020-12-31 07:13:[address] [facility] GROUP A Medical Branch NOTICE OF PRIVACY 2020-12-31 06:34:54 Doctor Unassigned, No Univ [facility] PRACTICES Name Medical Branch CONSENT/REFUSAL FOR 2020-12-31 06:34:35 [facility] Name Medical Branch TREATMENT CT HEAD WO CONTRAST 2020-11-20 18:18:22 John Rivera [facility] POCT TEST 2020-11-20 17:50:00 John Rivera [facility] BASIC METABOLIC PANEL 2020-11-20 17:24:00 John Rivera [facility] (NA, K, CL, CO2, Medical Branch GLUCOSE, BUN, CREATININE, CA) CBC WITH DIFF 2020-11-20 17:24:00 John Rivera [place] [facility] [place] CONSENT/REFUSAL FOR 2020-11-20 16:36:59 Doctor Unassigned, No Un iversity of [place] DIAGNOSIS AND Name [facility] TREATMENT POCT TEST 2020-09-27 02:56:00 Tricia Herbert [facility] ASSIGNMENT OF BENEFITS 2020-09-27 01:35:31 Doctor Unassigned, No [facility] CONSENT/REFUSAL FOR 2020-09-26 23:26:24 Doctor Unassigned, No [facility] AND Name [facility] TREATMENT URINALYSIS 2020-07-17 14:08:00 Austin Cowart [facility] POCT TEST 2020-07-17 14:08:00 Austin Cowart [facility] CBC WITH DIFF 2020-07-17 12:25:00 Austin Cowart [facility] NOTICE OF PRIVACY 2020-07-17 11:48:39 Doctor Unassigned, No [facility] CONSENT/REFUSAL FOR 2020-07-17 11:44:41 Doctor Unassigned, No Un iversity of [place] DIAGNOSIS AND [facility] TREATMENT Plan of Care Planned Activity Planned Date Details Comments Source Future Scheduled Test Hepatitis C screening [facility] (procedure) [code = 622410027] Future Scheduled Test Screening for [facility] malignant neoplasm of cervix (procedure) [code = 910385213] Future Scheduled Test INFLUENZA VACCINE [facility] [code = INFLUENZA VACCINE] Future Scheduled Test COVID-19 VACCINE (1) [facility] [code = COVID-19 VACCINE (1)] Encounters Start End Encounter Admission Attending Care Care Encounter Source Date/Time Date/Time Type Type Clinicians Facility Department ID 2021-04-28 Emergency [facility] [id number] Univers 06:08:31 [facility] 2021-04-27 Emergency [facility] [id number] Univers 21:27:31 [facility] 2021-04-27 Emergency [facility] [id number] Univers 10:13:04 ity of [facility] 2021-04-26 Emergency [facility] [id number] Univers 18:11:30 ity [facility] 2020-12-31 2020-12-31 Emergency [place], [facility] [id number] [facility] 02:02:00 03:26:00 Akiko Holbrook [id number] i ty of [place] 4.2.7.2.686 [facility] [id number] [address] 2020-12-31 2020-12-31 Emergency [place], [facility] [id number] 02:02:00 03:26:00 Akiko Holbrook [id number] [place] [id number] [place] [id number] [facility] 2020-11-20 2020-11-20 Emergency [facility] [id number] [facility] 11:47:00 15:01:00 John S Holbrook [id number] i ty of [place] 4.2.7.2.686 [facility] [id number] [address] 2020-11-20 2020-11-20 Emergency Rivera, [facility] [id number] 11:47:00 15:01:00 John S Holbrook [id number] [place] [id number] [place] [id number] [facility] 2020-09-26 2020-09-26 Emergency [place], K [facility] [id number] Univers 18:51:00 22:39:00 Lluvia Holbrook [id number] i ty of [place] 4.2.7.2.686 [facility] [id number] [address] 2020-09-26 2020-09-26 Emergency [place], K [facility] [id number] 18:51:00 22:39:00 Lluvia Holbrook [id number] [place] 4.2.7.2.686 [place] [id number] 2020-08-06 2020-08-06 Emergency X MIGUEL PAEMILIA ERT [id number] Univers 10:13:00 12:49:00 [facility]01 2020-08-03 Inpatient [facility] [id number] [facility] 09:14:00 03:39:32 21 [facility] 2020-07-17 2020-07-17 Emergency Austin Cowart [facility] [id number] [id number] [facility] 05:53:00 08:59:00 Dani Kauffman [id number] [facility] [id number] [place] [address] [id number] [place] [id number] [place] 2020-07-17 2020-07-17 Emergency Austin Cowart [facility] [id number] [id number] 05:53:00 08:59:00 Dani Kauffman [id number] [place] [id number] [place] [id number] [id number] Results Test Description Test Time Test Comments Results Result Comments Source RAPID STREP SCREEN FOR GROUP A 2020-12-31 07:59:00 Test Item Value Reference Range Interpretation Comme nts Streptococcus pyogenes (group A) antigen (test code = 42567- 2) Negative Negative Lab Interpretation (test code = 99055-2) Normal [facility] WO [id number] 18:21:18No acute findings. HISTORY:Head trauma, mod-severe hit [...] Hospital, Radiant Results Inft User - 11/20/2020 1:22PM CDT HISTORY:Head trauma, mod-severe hit left head, near syncope, persistentsevere headache and dizziness TECHNIQUE: Noncontrast head CT was performed.COMPARISON:NoneFINDINGS:The ventricles and sulci are appropriate for patient's age.There is no midline shift. The basal cisterns are preserved. No largevascular territory infarction, intracranial hemorrhage or mass effect isseen.The extracranial tissues demonstrate no acute findings.IMPRESSIONNo acute findings.[facility] METABOLIC PANEL (NA, K, CL, CO2, GLUCOSE, BUN, CREATININE, CA)2020-11-20 18:00:40 Test Item Value Reference Range Interpretation Comments NA (test code = 137 mmol/L 135-145 1967530793) K (test code = 4.2 mmol/L 3.5-5.0 0438000830) CL (test code = 104 mmol/L 98-108 7849057280) CO2 TOTAL (test code = 22 mmol/L 23-31 L 4840885621) AGAP (test code = 2-16 5307667924) BUN (test code = 10 mg/dL 7-23 8065550241) GLUCOSE (test code = 150 mg/dL 70-110 H 8153160541) CREATININE (test code = 0.59 mg/dL 0.50-1.04 2736038787) CALCIUM (test code = 9.5 mg/dL 8.6-10.6 4499770112) eGFR (test code = mL/min/1.73m2 8745722906) TOBI (test code = TOBI) Association of [...] tests). Lab Interpretation Abnormal (test code = 96260-3) [facility] [id number] 17:50:00 Test Item Value Reference Range Interpretation Comments POCT PREG (test code = 1605) negative On board controls acceptable with present C Line (test code = 3574) POCT PREG LOT # (test code = 3575) [id number] POCT PREG TEST DATE (test 05/27/2022 code = 3576) Lab Interpretation (test code = Normal 20214-1) [facility] WITH [id number] 17:32:17 Test Item Value Reference Range Interpretation Comments WBC (test code = See_Comment [Automated 8239-2) message] The sy stem which generated this result transmitted reference range : 4.30 - 11.10 10*3/?L. The reference range was not used to interpret this result as normal/abnormal . RBC (test code = See_Comment [Automated 799-8) message] The sy stem which generated this [...] RDW-SD (test code = 40.4 fL 39.0-49.9 23625-4) RDW-CV (test code = 13.0 % 12.0-15.5 788-0) PLT (test code = See_Comment H [Automated 777-3) message] The sy stem which generated this result transmitted reference range : 166 - 358 10*3/ ?L. The reference r shira was not used to interpret this result as normal/abnormal . MPV (test code = 9.5 fL 9.5-12.9 25273-9) NRBC/100 WBC (test See_Comment [Automat ed code = 4224808985) message] The system which generated this result transmitted reference range : 0.0 - 10.0 /100 WBCs. The refer ence range was not u sed to interpret th is result as normal/abnormal . NRBC x10^3 (test code <0.01 See_Comment [Auto mated = 3809731475) message] The s ystem which generated this result transmitted reference range : 10*3/?L. The reference range was not used to interpret this result as normal/abnormal . GRAN MAT (NEUT) % 83.0 % (test code = 770-8) IMM GRAN % (test code 0.70 % = 7443374511) LYMPH % (test code = 12.5 % 736-9) MONO % (test code = 3.7 % 5905-5) EOS % (test code = 0.0 % 713-8) BASO % (test code = 0.1 % 706-2) GRAN MAT x10^3(ANC) 8.41 10*3/uL 1.88-7.09 H (test code = 8743366072) IMM GRAN x10^3 (test 0.07 10*3/uL 0.00-0.06 H code = 7574134362) LYMPH x10^3 (test code 1.26 10*3/uL 1.32-3.29 L = 731-0) MONO x10^3 (test code 0.37 10*3/uL 0.33-0.92 = 742-7) EOS x10^3 (test code = <0.03 0.03-0.39 L 711-2) BASO x10^3 (test code <0.03 0.01-0.07 = 704-7) Lab Interpretation Abnormal (test code = 48690-6) [facility] [id number] 02:56:00 Test Item Value Reference Range Interpretation Comments POCT PREG (test code = 1605) negative On board controls acceptable with present C Line (test code = 3574) POCT PREG LOT # (test code = 3575) [id number] POCT PREG TEST DATE (test 02/25/2022 code = 3576) Lab Interpretation (test code = Normal 64839-6) [facility] DNA BY [id number] 14:24:00 Test Item Value Reference Range Interpretation Comments C. TRACHOMATIS DNA BY Negative Negative PCR (test code = CHLAMTDNA) N. GONORRHOEAE DNA BY Negative Negative Perfor med At: ST PCR (test code = [facility] NGONOTOI) [id number] [place], [place] [id number] Rodrigues MD Ph:[phone] - DUP AB/PEL/SC/[id number] 14:12:00 [facility] : 1995 Sex: F Patient Name: FATMATA DUNCAN Unit No: [id number] EXAMS: CPT CODE: [id number] DUP AB/PEL/SC/LTD 85060 PELVIC ULTRASOUND, 08/01/2020: COMPARISON: CT pelvis dated August 01, 2020 CLINICAL HISTORY: pain TECHNIQUE: Transabdominal and endovaginal scanning was performed. FINDINGS: The uterus measures 9.4 x 4.7 x 4.6 cm. The endometrial stripe measures 6 mm. There is a trace amount of fluid within the endocervical canal. No uterine fibroids were seen. The right ovary measures 3.2 x 2.5 x 3.0 cm and contains several follicles, the largest measuring 1.3 cm in size. Doppler flow is visualized in the right ovary.The left ovary measures 3.4 x 1.9 x 1.4 cm and contains small subcentimeter follicles. Doppler flow is demonstrated in the left ovary. No free pelvic fluid noted. IMPRESSION: No acute abnormality identi fied. Bilateral ovarian follicles. at 1412 Reported and signed by: Joe Agudelo MD CC: Winter Mccollum MD; Austin Barrera Technologist: Alexandra Elder RDMS Probe: Trnscrbd D/ (1412) t.SDR.AJ13 Orig Print D/T: S: 08/01/2020 (1415) [facility] NAME: FATMATA DUNCAN Radiology Department PHYS: ELLIS.Jay Winter Mccollum MD [address] : 1995 AGE: 24 SEX: F [place] [address] LOC: ShaylaERS PHONE #: [phone] EXAM DATE: 08/01/2020 STATUS: REG ER FAX #: [phone] RAD NO: Page 1 Signed Report Patient Name: FATMATA DUNCAN Unit No: [id number] EXAMS: CPT CODE: [id number] DUP AB/PEL/SC/LTD 05276 <Continued> [facility] NAME: FATMATA DUNCAN Radiology Department PHYS: Winter Landaverde MD [address] : 1995 AGE: 24 SEX: F [place] [address] LOC: ShaylaERS PHONE #: [phone] EXAM DATE: 08/01/2020 STATUS: REG ERFAX #: [phone] RAD NO: Page 2 Signed Report- US TRANSVAGINAL W/PELVIS 2020-08-01 14:12:00 [facility] 1995 Sex: F Patient Name: FATMATA DUNCAN Unit No: [id number] EXAMS: CPT CODE: [id number] US TRANSVAGINAL W/ENRKSX58290 PELVIC ULTRASOUND, 08/01/2020: COMPARISON: CT pelvis dated August 01, 2020 CLINICAL HISTORY: pain TECHNIQUE: Transabdominal and endovaginal scanning was performed. FINDINGS: The uterus measures 9.4 x 4.7 x 4.6 cm. The endometrial stripe measures 6 mm. There is a trace amount of fluid within the e ndocervical canal. No uterine fibroids were seen. The right ovary measures 3.2 x 2.5 x 3.0 cm and contains several follicles, the largest measuring 1.3 cm in size. Doppler flow is visualized in the right ovary. The left ovary measures 3.4 x 1.9 x 1.4 cm and contains small subcentimeter follicles. Doppler flow is demonstrated in the left ovary. No free pelvic fluid noted. IMPRESSION: No acute abnormality identified. Bilateral ovarian follicles. at 1412 Reported and signed by: Joe Agudelo MD CC: Winter Mccollum MD; Austin Barrera Technologist: Alexandra Elder RDMS Probe: [id number] Trnscrbd D/ (1412) tTARAR.AJ13 Orig PrintD/T: S: 08/01/2020 (1415) [facility] NAME: FATMATA DUNCAN Radiology Department PHYS: CANAL.02 - Cano,Winter MD [address] : 1995 AGE: 24 SEX: F [place], [place] [address] LOC: Saran.ERS PHONE #: [phone] EXAM DATE: 08/01/2020 STATUS: REG ER FAX #: [phone] RAD NO: Page 1 Signed Report Patient Name: FATMATA DUNCAN Unit No: [id number] EXAMS: CPT CODE: [id number] US TRANSVAGINAL W/PELVIS 88654 <Continued> [facility] NAME: DUNCANLYUBOV PHILLIPRINA Radiology Department PHYS: ELLISSalimaWinter Ortiz MD [address] : 1995 AGE: 24 SEX: F [place], [place] [address] LOC: Saran.ERS PHONE #: [phone] EXAM DATE: 0 08/01/2020 STATUS: REG ER FAX #: [phone] RAD NO: Page 2 Signed Report- US PELVIS [id number] 14:12:00 [facility] 1995 Sex: F Patient Name: FATMATA DUNCAN Unit No: [id number] EXAMS: CPT CODE: [id number] US PELVIS COMPLETE 32204 PELVIC ULTRASOUND, 08/01/2020: COMPARISON: CT pelvis dated August 01, 2020 CLINICAL HISTORY: pain TECHNIQUE: Transabdominal and endovaginal scanning was performed. FINDINGS: The uterus measures 9.4 x 4.7 x 4.6 cm. The endometrial stripe measures 6 mm. There is a trace amount of fluid within the endocervical canal. No uterine fibroids were seen. The right ovary measures 3.2 x 2.5 x 3.0 cm and contains several follicles, the largest measuring 1.3 cm in size. Doppler flow is visualized in the right ovary.The left ovary measures 3.4 x 1.9 x 1.4 cm and contains small subcentimeter follicles. Doppler flow is demonstrated in the left ovary. No free pelvic fluid noted. IMPRESSION: No acute abnormality identified. Bilateral ovarian follicles. at 1412 Reported and signed by: Joe Agudelo MD CC: Winter Mccollum MD; Austin Barrera Technologist: Alexandra Elder RDMS Probe: Trnscrbd D/ (1412) t.SDR.AJ13 Orig Print D/T: S: 08/01/2020 (9555) [facility] NAME: DUNCANLYUBOV PHILLIPRINA Radiology Department PHYS: CANAL. Winter Mccollum MD [address] : 1995 AGE: 24 SEX: F [place], [place] [address] LOC: ShaylaERS PHONE #: [phone] EXAM DATE: 08/01/2020 STATUS: REG ER FAX #: [phone] RAD NO: Page 1 Signed Report Patient Name: FATMATA DUNCAN Unit No: [id number] EXAMS: CPT CODE: [id number] US PELVIS COMPLETE 03687 <Continued> [facility] NAME: FATMATA DUNCAN Radiology Department PHYS: ELLIS. Winter Wilkins MD [address] : 1995 AGE: 24 SEX: F [place] LOC: ShaylaERS PHONE #: [phone] EXAM DATE: 08/01/2020 STATUS: REG ER FAX #: [phone] RAD NO: Page 2 Signed Report- CT ABD PELVIS W/O [id number] 10:58:00[facility] : 1995 Sex: F Patient Name: FATMATA DUNCAN Unit No: [id number] EXAMS: CPT CODE: [id number] CT ABD PELVIS W/O CONT 75626 CT ABDOMEN/CT STONE SURVEY WITHOUT CONTRAST, 08/01/2020 10:27 AM: COMPARISON: none CLINICAL HISTORY:bl back pain +blood in UA One or more of the following dose techniques were utilized; automated exposure control, adjustment of the mA and/or kV according to patient size, and/or utilization of iterative reconstruction technique. DLP: 653.43 mGy-cm. STONE PROTOCOL DISCLAIMER COMMENT: Please note that secondary to IV, gastrointestinal and rectal contrast not being administered, evaluation of the abdominal viscera, vascular structures, gastrointestinal tract, adjacent structures, etc, is limited. If there is any concern for clinical pathology in these locations and /or if patient has persistent unexplained symptoms, contrast CT is recommended for further evaluation. FINDINGS: There is a 6 mm nonspecific nodular density in the medial segment of the right middle lobe. No opaque renal calculi noted. No hydronephrosis. No opaque ureteral calculi and/or ureteral dilatation identified. Visualized portions of the liver, spleen, pancreas and adrenals appeared unremarkable. The gallbladder is present. No radiopaque gallstones or pericholecystic fluid noted. Abdominal aorta is normal in caliber. IMPRESSION: No opaque renal/ureteral calculi identified. Nonspecific 6 mm right middle lobe pulmonary nodule.[facility] NAME: FATMATA DUNCAN Radiology Department PHYS: Winter Mccollum MD [address] : 1995 AGE: 24 SEX: F [place], [place] [address] LOC: ShaylaERS PHONE #: [phone] EXAM DATE: 08/01/2020 STATUS: REG ER FAX #: [phone] RAD NO: Page 1 Signed Report 1 Patient Name: FATMATA DUNCAN Unit No: [id number] EXAMS: CPT CODE: [id number] CT ABD PELVIS W/O CONT 18164 <Continued> CT PELVIS WITHOUT CONTRAST: No opaque ureteral calculi and/or ureteral dilatation noted in the pelvis. Visualized bowel loops appear unremarkable without bowel wall t hickening. No right lower quadrant inflammatory process noted. [...] CC: Winter Mccollum MD; Austin Barrera Technologist: Art Church, RT, CT CTDI: 13.28 DLP: 653.43 Trnscrbd D/ (1058) [email or web address].AJ13 [facility] NAME: FATMATA DUNCAN Radiology Department PHYS: CANAL.Jay - Winter Mccollum MD [address] : 1995 AGE: 24 SEX: F [place], [place] [address] LOC: ShaylaERS PHONE #: [phone] EXAM DATE: 08/01/2020 STATUS: REG ER FAX #: [phone] RAD NO: Page 2 Signed Report 1 Patient Name: FATMATA DUNCAN Unit No: [id number] EXAMS: CPT CODE: [id number] CT ABD PELVIS W/O CONT 92307 <Continued> OrigPrint D/T: S: 08/01/2020 (1101) [facility] NAME: FATMATA DUNCAN Radiology Department PHYS: Winter Landaverde MD [address] : 1995 AGE: 24 SEX: F [place], [place] [address] LOC: SANDY PHONE #: [phone] EXAM DATE: 08/01/2020 STATUS: REG ER FAX #:[phone] RAD NO: Page 3 Signed Report 1UA RFLX MICR CULT IF [id number] 10:04:00 Test Item Value Reference Range Interpretation [...] culture: Suprapubic PainSpecimen Description: CLEAN CATCHUR HCG [id number] 10:04:00 Test Item Value Reference Range Interpretation [...] Description: CLEAN CATCHUA RFLX MICR CULT IF [id number] 10:03:00 Test Item Value Reference Range Interpretation [...] culture: Suprapubic PainSpecimen Description: CLEAN CATCHUR HCG [id number] 10:03:00 Test Item Value Reference Range Interpretation Comments UR HCG QUAL (test code = HCGQLU) Indication for culture: Suprapubic PainSpecimen Description: CLEAN CATCH [id number] 14:39:00 Test Item Value Reference Range Interpretation Comments APPEARANCE (test code = Hazy Clear A 8216357417) COLOR (test code = Yellow Yellow 5635646929) PH (test code = 4.8-8.0 5947254411) SP GRAVITY (test code = 1.003-1.030 6968991646) GLU U QUAL (test code = Normal Normal 2500401307) BLOOD (test code = Negative Negative INTERFERE NCE FROM 7584695423) ASCORBIC ACID M AY CAUSE FALSE NEG ATIVE RESULT KETONES (test code = Negative Negative 7968917010) PROTEIN (test code = Negative Negative 2887-8) UROBILIN (test code = Normal Normal 1547047785) BILIRUBIN (test code = Negative Negative 2752167121) NITRITE (test code = Negative Negative 5938254326) LEUK SILVINO (test code = Negative Negative 9507234574) RBC/HPF (test code = See_Comment [Autom ated message] 0862900825) The system locr generated this result transmitted ref erence range: 0 - 3 HP F. The reference range was not used to int erpret this result as normal/abnormal . WBC/HPF (test code = <1 See_Comment [Autom ated message] 6191033609) The system locr generated this result transmitted ref erence range: 0 - 5 HP F. The reference range was not used to int erpret this result as normal/abnormal . BACTERIA (test code = Few Negative A 0866596363) MUCOUS (test code = Slight Negative LPF A 4835868116) SQ EPITH (test code = HPF 1556814602) Lab Interpretation (test Abnormal code = 19880-2) [facility] [id number] 14:08:00 Test Item Value Reference Range Interpretation Comments POCT PREG (test code = 1605) negative On board controls acceptable with present C Line (test code = 3574) POCT PREG LOT # (test code = 3575) [id number] POCT PREG TEST DATE (test 2022-02-25 code = 3576) Lab Interpretation (test code = Normal 28191-1) [facility] WITH [id number] 12:41:00 Test Item Value Reference Range Interpretation Comments WBC (test code = See_Comment [Automated 5990-2) message] The sy stem which generated this result transmitted reference range : 4.30 - 11.10 10*3/?L. The reference range was not used to interpret this result as normal/abnormal . RBC (test code = See_Comment [Automated 065-8) message] The sy stem which generated this [...] RDW-SD (test code = 40.8 fL 39-49.9 64199-9) RDW-CV (test code = 13.0 % 12-15.5 788-0) PLT (test code = See_Comment H [Automated 777-3) message] The sy stem which generated this result transmitted reference range : 166 - 358 10*3/ ?L. The reference r shira was not used to interpret this result as normal/abnormal . MPV (test code = 9.5 fL 9.5-12.9 16935-3) NRBC/100 WBC (test See_Comment [Automat ed code = 4311908698) message] The system which generated this result transmitted reference range : 0.0 - 10.0 /100 WBCs. The refer ence range was not u sed to interpret th is result as normal/abnormal . NRBC x10^3 (test code <0.01 See_Comment [Auto mated = 4005292262) message] The s ystem which generated this result transmitted reference range : 10*3/?L. The reference range was not used to interpret this result as normal/abnormal . GRAN MAT (NEUT) % 49.7 % (test code = 770-8) IMM GRAN % (test code 0.40 % = 6800416202) LYMPH % (test code = 37.6 % 736-9) MONO % (test code = 6.3 % 5905-5) EOS % (test code = 5.4 % 713-8) BASO % (test code = 0.6 % 706-2) GRAN MAT x10^3(ANC) 4.65 10*3/uL 1.88-7.09 (test code = 2136992116) IMM GRAN x10^3 (test 0.04 10*3/uL 0-0.06 code = 3953200152) LYMPH x10^3 (test code 3.52 10*3/uL 1.32-3.29 H = 731-0) MONO x10^3 (test code 0.59 10*3/uL 0.33-0.92 = 742-7) EOS x10^3 (test code = 0.51 10*3/uL 0.03-0.39 H 711-2) BASO x10^3 (test code 0.06 10*3/uL 0.01-0.07 = 704-7) Lab Interpretation Abnormal (test code = 71423-7) [facility] W/AUTO [id number] 07:27:00 Test Item Value Reference Range Interpretation [...] NORMAL code = PLTMR) AG HEPATITIS B [id number] 04:15:00 Test Item Value Reference Range Interpretation Comments AG HEPATITIS B SURFACE (test code NONREACTIVE NONREACTIVE = HBSAG) AB HEPATITIS C [id number] 04:15:00 Test Item Value Reference Range Interpretation Comments AB HEPATITIS C (test code = NONREACTIVE NONREACTIVE HCVAB) SIGNAL TO CUTOFF (test code = 0.13 <0.80 N CUTOFF) RUBELLA [id number] 04:15:00 Test Item Value Reference Range Interpretation Comments RUBELLA SCREEN 70.2 IUnit/ml Results >10. 0IUnits/ml (test code = are considered positive RUBSC) inaccordance wi th the CLSI guidelines and based on the [employer] S tandard for Anti-Rubell a serum as anindicator of immune status and a br eakpoint to detect mostseropositiv e persons. AB [id number] 04:15:00 Test Item Value Reference Range Interpretation Comments AB TREPONEMA (test code = TREPAB) NONREACTIVE NONREACTIVE AG HEPATITIS B [id number] 04:00:00 Test Item Value Reference Range Interpretation Comments AG HEPATITIS B SURFACE (test code NONREACTIVE NONREACTIVE = HBSAG) AB HEPATITIS C [id number] 04:00:00 Test Item Value Reference Range Interpretation Comments AB HEPATITIS C (test code = HCVAB) NONREACTIVE SIGNAL TO CUTOFF (test code = CUTOFF) <0.80 RUBELLA [id number] 04:00:00 Test Item Value Reference Range Interpretation Comments RUBELLA SCREEN 70.2 IUnit/ml Results >10. 0IUnits/ml (test code = are considered positive RUBSC) inaccordance wi th the CLSI guidelines and based on the [employer] S tandard for Anti-Rubell a serum as anindicator of immune status and a br eakpoint to detect mostseropositiv e persons. AB [id number] 04:00:00 Test Item Value Reference Range Interpretation Comments AB TREPONEMA (test code = TREPAB) NONREACTIVE NONREACTIVE CBC W/AUTO [id number] 00:36:00 Test Item Value Reference Range Interpretation [...]
[2022-01-30 10:48] LABS: Hematocrit 39.4 % (36.0-45.0); MCV 86.7 fL (80-100); MPV 7.3 fL (7.6-11.3); RBC Red Blood Cell Count 4.55 M/uL (3.86-4.86)
[2022-01-30] MEDS ORDERED: PROMETHAZINE INJ 25 MG/ML AMP ONE (10:53)
[2022-01-30] MEDS ORDERED: MORPHINE 2 MG/ML SYR ONE (10:54)
[2022-01-30] MEDS ORDERED: NA CHLORIDE 0.9% 1,000 ML ONE (10:54)
[2022-01-30 11:00] LABS: Potassium 3.5 mmol/L (3.5-5.1)
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
--- NOTE | 2022-01-30 11:32 | RAD REPORT ---
EXAM DESCRIPTION: RAD - Ankle Right 3 View - 01/30/2022 11:05 am CLINICAL HISTORY: SWELLING COMPARISON: No comparisons FINDINGS: No bone or joint abnormality is seen.
[2022-01-30 12:12] LABS: Urine Blood 2+ (Negative); Urine Glucose Negative (Negative); Urine Protein 1+ (Negative); Urine Specific Gravity 1.025 (1.005-1.030)
[2022-01-30 12:30] LABS: Barbiturates NEGATIVE (NEGATIVE); Benzodiazepines POSITIVE (NEGATIVE); Cocaine POSITIVE (NEGATIVE); METHAMPHETAM NEGATIVE (NEGATIVE); Methadone NEGATIVE (NEGATIVE); Opiates NEGATIVE (NEGATIVE); Phencyclidine NEGATIVE (NEGATIVE); THC Cannibis NEGATIVE (NEGATIVE)
[2022-01-30 12:38] LABS: Urine Specific Gravity/Preg 1.025 (1.005-1.030)
[2022-01-30 12:45] LABS: Urine Bacteria 20-50 /HPF (<20); Urine Mucus 1+ /HPF (None Seen); Urine RBC <5 /HPF (None Seen)
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
[2022-01-30 13:41] VITALS: TEMP 98
[2022-01-30 13:43] VITALS: O2SAT 98
[2022-01-30 13:45] VITALS: BP 117/76
--- NOTE | 2022-01-31 09:13 | EKG ---
Test Date: 2022-01-30 Test Time: 10:32:58 It Software Engineer: MEASUREMENT RESULTS: Intervals: Rate: 111 NE: 160 QRSD: 74 QT: 338 QTc: 459 Jaffrey: P: 108 NE: 160 QRS: 113 T: 124 INTERPRETIVE STATEMENTS: Suspect arm lead reversal, interpretation assumes no reversal Sinus tachycardia Right axis deviation Abnormal ECG Compared to ECG 08/15/2021 01:23:59 Right-axis deviation now present Myocardial infarct finding no longer present Electronically Signed On 01-31-22 09:12:57 CDT by Jatin Sandhu
== END 2022-01-30 13:17 | disposition home or self-care (01) ==
LOC: ER 09:54
DX: S09.90XA Unspecified injury of head, initial encounter (principal); N39.0 Urinary tract infection, site not specified; M25.571 Pain in right ankle and joints of right foot; I10 Essential (primary) hypertension; F31.9 Bipolar disorder, unspecified; Z88.1 Allergy status to other antibiotic agents; Z88.5 Allergy status to narcotic agent; Z88.6 Allergy status to analgesic agent
CPT/HCPCS: 96361; 93005; 87088; 87086; 80048; 36415; 80320; 81025; 85027; 80307; 70450; 70486; 76377; 73610; 96375; 96374; 99284; J2550; J2270; J7030; 81003; 81015

== ENCOUNTER 2022-03-26 17:53 | Emergency (ER) | payer SELFPAY ==
--- OUTSIDE RECORDS SUMMARY | 2022-03-26 17:56 | XMS REPORT | Continuity of Care Document ---
:1995 Author Organization [facility] t Address [address] [place] [address] Care Team Providers Name Role Phone Asked, No Pcp Primary Care Physician Unavailable Ania Lopez MD Attending Clinician DENIS CAR Attending Clinician Unavailable Denis Car NP Attending Clinician Carlos Hernandez DO Attending Clinician Gume CHANCE, Akiko Attending Clinician John Agarwal Attending Clinician Tricia Rice Attending Clinician JOHN RIVERA Attending Clinician Unavailable Austin Cowart MD Attending Clinician Dani Kauffman DO Attending Clinician Austin Barrera Admitting Clinician Unavailable Payers Payer Name Policy Type Policy Number Effective Date Expiration Date S shobha SIDDIQI FROM [id number] 2020 [facility] 00:00:00 [employer] [place] [id number] 2019 00:00:00 Problems Condition Condition Condition Status Onset Resolution Last Treating Co mments Source Name Details Category Date Date Treatment Clinician Date Obesity Obesity Disease Active Univers (BMI (BMI 1-16 ity of 30-39.9) 30-39.9) 00:00: [place] 00 [facility] Urinary Urinary Disease Active Univers tract tract [...] Univers 5-23 ity of (vaginal (vaginal 00:00: [place] 00 Medical after after Branch ) ) trial trial Obesity in Obesity in Disease Active U nivers 5-23 ity of 00:00: [place] 00 [facility] Family Family Disease Active Univers history of history of 8-26 it y of spina spina 00:00: [place] bifida bifida 00 [facility] Branch No known No known Disease [...] l of [place] codeine DA Active [place] 2018- [facility] l [facility] [place] morphine DA Active U SWELLING 2018- [facility] 1-19 [facility] 00:[facility]: [facility] 00 [facility] [place] codeine DA [place] nausea, [facility] headache 1-19 [facility] 00:00: Hospita [...] TRAMADOL DRUG Active Anaphylaxis Uni vers INGREDI 11-01 ity of 00:00: [place] 00 Medical Branch TUSSIN DRUG Active Rash Univers DM COUGH 11-01 ity of MEDICINE 00:00: [place] 00 Medical Branch Tussin Propensi Active Rash Univers Dm Cough ty to 11-01 ity of Medicine adverse 00:00: [place] reaction 00 Medical s Branch No Known DA Active U [facility] Allergie 09-08 [facility] 00:00: [facility] 00 l of [place] Family History Family Member Diagnosis Comments Start Date Stop Date Source Natural mother Menstrual problems [facility] Natural mother Diabetes [facility] Social History Social Habit Start Date Stop Date Quantity Comments Source Tobacco use and 2022-03-26 2022-03-26 Smokeless tobacco [facility] exposure 00:00:00 00:00:00 non-user Alcohol intake 2022-03-26 2022-03-26 Current drinker [facility] 00:00:00 00:00:00 of alcohol (finding) Exposure to 2022-02-16 2022-02-26 Not sure University SARS-CoV-2 00:00:00 22:30:00 [facility] (event) [place] Alcohol Comment 2016-04-28 2016-04-28 social, weekly [facility] 00:00:00 00:00:00 Sex [birth year] At [birth year] [facility] 00:00:00 00:00:00 Smoking Status Start Date Stop Date Source Never smoked tobacco [facility] ospital Medications Ordered Filled Start Stop Current Ordering Indication Dosage Frequency Signature Comments Components Source Medication Medication Date Date Medication? Clinician (SIG) Name Name ibuprofen 2021- No 800mg Q6H Take 800 Me thodi (ADVIL) 200 03-[address] MG tablet 08:46: 00:00 mouth Hospit a 55 :00 every 6 l (six) hours as needed for mild pain. ibuprofen Yes 800mg Q8H Take 1 Metho di (ADVIL) 800 03-[address] MG tablet 00:00: (800 mg Hospi ta 00 total) by l mouth every 8 (eight) hours as needed for mild pain. ondansetron Yes 4mg Q8H Take 1 Meth shamir ODT 03-26 tablet (4 st (ZOFRAN-ODT 00:00: mg total) H ospita ) 4 MG 00 by mouth l disintegrat every 8 ing tablet (eight) hours as needed for nausea or vomiting. famotidine No 20mg 20 mg, Univ ers (PEPCID AC) 02-27 Oral, ity of tablet 20 05:00: 05:00 ONCE, 1 [place] mg 00 :00 dose, On Medical Wed02/27/22 Branch at 0000, RODRICK ALPRAZolam No 1mg 1 mg, Unive rs (XANAX) 02-27 Oral, ity of tablet 1 mg 05:00: 05:00 [place] dose, On Medical Wed02/27/22 Branch at 0000, RODRICK ALPRAZolam Yes alprazolam U nivers 0.5 mg 02-26 0.5 mg ity of tablet 23:48: tablet [address] Branch bupropion Yes bupropion Uni vers HBr 02-26 HBr ity of (APLENZIN 23:48: [place] ORAL) 29 [facility] FLUoxetine Yes fluoxetine U nivers 20 mg 02-26 20 mg ity of capsule 23:48: capsule [place] 29 [facility] Branch ciprofloxac 2021- No 500mg Q.5D Take 1 Me thodi in (CIPRO) 02-[address] 500 MG 00:00: 04:59 (500 mg Hospita tablet 00 :00 total) by l mouth 2 (two) times a day for 7 days. phenazopyri 2021- No 200mg Q.[id number] Take 1 Methodi dine 02-[id number] (PYRIDIUM) 00:00: 04:59 3D (200 mg Hos radha 200 MG 00 :00 total) by l tablet mouth 3 (three) times a day for 3 days. ondansetron No 4mg 4 mg, Univ ers (ZOFRAN-ODT [...] 1 [place] as mg 00 :00 dose, [facility] Medical 12/31/20 at Branch 0300, RODRICK methocarbam No 1000mg 1,000 mg, Univers oL 12-31 Oral, ONCE ity of (ROBAXIN) 08:00: 07:17 NOW, 1 [place] tablet 00 :00 dose, [facility] Medical 1,000 mg 12/31/20 at Branch 0300, RODRICK ibuprofen Yes [id number] 800mg Take 1 U nivers 800 mg - tablet by ity of tablet 00:00: mouth [place] 00 every 8 Medical (eight) Branch hours as needed for Pain (scale 4-6). cyclobenzap Yes [id number] 10mg Take 1 Univers rine 10 mg - tablet by ity of tablet 00:00: mouth 3 [place] 00 (three) Medical times Branch daily as needed for Muscle Spasms. ibuprofen 2021- No [id number] 800mg Take 1 Univers 800 mg 12-31 tablet by ity of tablet 00:00: 00:00 mouth [place] 00 :00 every 8 Medical (eight) Branch hours as needed for Pain (scale 4-6). cyclobenzap 0 2021- No [id number] 10mg Take 1 Univers rine 10 mg 12-31 tablet by ity of tablet 00:00: 00:00 mouth 3 [place] 00 :00 (three) Medical times Branch daily as needed for Muscle Spasms. methocarbam Yes 500mg 500 mg, Un carolann oL 11-20 Oral, QID, ity of (ROBAXIN) 21:00: [place] tablet 500 00 on Wed Medical mg 11/20/20 at Branch 1600, Until Discontinu ed, Routine NaCl 0.9% 2020- No 1000mL at 999 Uni vers (NS) bolus 11-20- mL/hr, ity of infusion 20:30: 08:29 1,000 mL, Ryan as 1,000 mL 00 :00 IV Medical Infusion, Branch ONCE, 1 dose, [facility] 11/20/20 at 1530, STAT metoclopram 2020- No 10mg 10 mg, Uni vers dio HCl 11-20 Slow IV ity of (REGLAN) 20:15: 19:18 Push, [place] injection 00 :00 ONCE, 1 Medical 10 mg dose, [facility] Branch 11/20/20 at 1515, RODRICK ketorolac 2020- No 30mg 30 mg, Unive rs (TORADOL) 11-20 Slow IV ity of injection 20:15: 19:18 Push, [place] 30 mg 00 :00 ONCE, 1 Medical dose, [facility] Branch 11/20/20 at 1515, RODRICK
Fa culty member approving Restricted medication : JOHN RIVERA diphenhydrA 2020- No 25mg 25 mg, Uni vers MINE 11-20 Slow IV ity of (BENADRYL) 20:15: 20:15 Push, [place] injection 00 :00 ONCE, 1 Medical 25 mg dose, [facility] Branch 11/20/20 at 1515, STAT butalbital- Yes 1{tbl} 1 tablet, Univers acetaminoph 11-20 Oral, ity of en-caff 18:12: Q4HPRN, [place] (ESGIC) 27 Starting Medical 50-325-40 Wed Branch mg tablet 1 11/20/20 at tablet 1312, Until Discontinu ed, Routine, zofran ketorolac Yes [id number] 10mg Take 1 Un carolann 10 mg 5-26 tablet by ity of tablet 00:00: mouth [place] 00 every 6 Medical (six) Branch hours as needed for Pain (scale 4-6). cyclobenzap Yes [id number] 10mg Take 1 Univers rine 10 mg 5-26 tablet by ity of tablet 00:00: mouth 3 [place] 00 (three) Medical times Branch daily. ketorolac Yes [id number] 10mg Take 1 Un carolann 10 mg 5-26 tablet by ity of tablet 00:00: mouth [place] 00 every 6 Medical (six) Branch hours as needed for Pain (scale 4-6). cyclobenzap Yes [id number] 10mg Take 1 Univers rine 10 mg 5-26 tablet by ity of tablet 00:00: mouth 3 [place] 00 (three) Medical times Branch daily. ketorolac 2021- No [id number] 10mg Take 1 U nivers 10 mg 5-26 09-01 tablet by ity of tablet 00:00: 00:00 mouth [place] 00 :00 every 6 Medical (six) Branch hours as needed for Pain (scale 4-6). cyclobenzap 2021- No [id number] 10mg Take 1 Univers rine 10 mg 5-26 09-01 tablet by ity of tablet 00:00: 00:00 mouth 3 [place] 00 :00 (three) Medical times Branch daily. ketorolac 2020- No 30mg 30 mg, Unive rs (TORADOL) 09-27 Intramuscu ity of injection 03:45: 02:57 lar, ONCE, [place] 30 mg 00 :00 1 dose, Medical [facility] 09/26/20 Branch at 2245, RODRICK
Fa culty member approving Restricted medication : Tricia HERBERT diphenhydrA 2020- No 25mg 25 mg, Uni vers MINE 09-27 Intramuscu ity of (BENADRYL) 03:45: 02:58 lar, ONCE, [place] injection 00 :00 1 dose, Medical 25 mg Elicia 09/26/20 Branch at 2245, STAT proMETHazin 2020- No 25mg 25 mg, Uni vers e 4-02 04-02 Intramuscu ity of (PHENERGAN) 03:45: 02:58 lar, ONCE, [place] injection 00 :00 1 dose, Medical 25 mg Elicia 09/26/20 Branch at 2245, RODRICK ondansetron 2020-0 Yes [id number] 4mg Take 1 Univers (ZOFRAN 4-01 tablet by ity of ODT) 4 mg 00:00: mouth [place] disintegrat 00 every 8 Medic al ing tablet (eight) Branch hours as needed for Nausea and Vomiting (N/V). ondansetron 2020-0 Yes [id number] 4mg Take 1 Univers (ZOFRAN 4-01 tablet by ity of ODT) 4 mg 00:00: mouth [place] disintegrat 00 every 8 Medic al ing tablet (eight) Branch hours as needed for Nausea and Vomiting (N/V). ondansetron 2020-0 Yes [id number] 4mg Take 1 Univers (ZOFRAN 4-01 tablet by ity of ODT) 4 mg 00:00: mouth [place] disintegrat 00 every 8 Medic al ing tablet (eight) Branch hours as needed for Nausea and Vomiting (N/V). ondansetron 2021- No [id number] 4mg Take 1 Univers (ZOFRAN 4-01 09-01 tablet by ity of ODT) 4 mg 00:00: 00:00 mouth [place] disintegrat 00 :00 every 8 Medic al ing tablet (eight) Branch hours as needed for Nausea and Vomiting (N/V). proMETHazin 2020-0 Yes [id number] 25mg Take 1 Univers e 25 mg 2-09 tablet by ity of tablet 00:00: mouth [place] 00 every 6 Medical (six) Branch hours as needed for Nausea and Vomiting (N/V). proMETHazin 2020-0 Yes [id number] 25mg Take 1 Univers e 25 mg 2-09 tablet by ity of tablet 00:00: mouth [place] 00 every 6 Medical (six) Branch hours as needed for Nausea and Vomiting (N/V). proMETHazin 2020-0 Yes [id number] 25mg Take 1 Univers e 25 mg 2-09 tablet by ity of tablet 00:00: mouth [place] 00 every 6 Medical (six) Branch hours as needed for Nausea and Vomiting (N/V). proMETHazin 2020-0 2021- No [id number] 25mg Take 1 Univers e 25 mg -02-26 tablet by ity of tablet 00:00: 00:00 mouth [place] 00 :00 every 6 Medical (six) Branch hours as [...] mouth. Hospita 500-60-15 17 l mg tablet acetaminoph 2018-06 Yes 2{tbl} Take 2 Me thodi en-caff-pyr 2-[address] ilamine 17:05: mouth. Hospita 500-60-15 17 l mg tablet [...] mg iron-1 mg -250 mg combo pack 2021- No 1{packe Take 1 Uni vers vit 5-29 09-01 t} Packet by ity of 33-iron-fol 00:00: 00:00 [place] ic-dha 00 :00 daily. Medical (SELECT-OB Branch + DHA) 29 mg iron-1 mg -250 mg combo pack Immunizations Ordered Filled Immunization Date Status Comments Sour e Immunization Name Name Td 2011-06-28 Completed University of 00:00:00 [facility] Td 2011-06-28 Completed University of 00:00:00 [facility] Td 2011-06-28 Completed University of 00:00:00 [facility] Td 2011-06-28 Completed University of 00:00:00 [facility] Td 2011-06-28 Completed University of 00:00:00 [facility] Vital Signs Vital Name Observation Time Observation Value Comments Source Systolic blood 2022-02-27 05:31:00 130 mm[Hg] Univer sity of pressure [facility] Diastolic blood 2022-02-27 05:31:00 87 mm[Hg] Unive rsity of pressure [facility] Heart rate 2022-02-27 05:31:00 98 /min Universi ty of [facility] Respiratory rate 2022-02-27 05:31:00 18 /min Univ ersity of [facility] Oxygen saturation in 2022-02-27 05:31:00 99 /min [facility] Arterial blood by [facility] Pulse oximetry Branch Body height 2022-02-27 03:38:00 152.4 cm Universi ty [facility] [place] [facility] Body weight 2022-02-27 03:38:00 82.101 kg Universi ty [facility] [place] [facility] BMI 2022-02-27 03:38:00 35.35 kg/m2 Universi ty [facility] [place] [facility] Body temperature 2022-02-27 03:36:00 36.28 [place] Univ ersity of [facility] Branch Systolic blood 2020-12-31 06:49:00 125 mm[Hg] Univer sity of pressure [place] [facility] Diastolic blood 2020-12-31 06:49:00 93 mm[Hg] Unive rsity of pressure [facility] Branch Heart rate 2020-12-31 06:49:00 104 /min Universi ty of [facility] Branch Body temperature 2020-12-31 06:49:00 36.83 [place] Univ ersity of [facility] Branch Respiratory rate 2020-12-31 06:49:00 15 /min Univ ersity of [facility] Body height 2020-12-31 06:49:00 152.4 cm Universi ty of [place] [facility] Body weight 2020-12-31 06:49:00 92.5 kg Universi ty [facility] [place] [facility] BMI 2020-12-31 06:49:00 39.83 kg/m2 Universi ty of [facility] Branch Oxygen saturation in 2020-12-31 06:49:00 99 /min University Arterial blood by [facility] Pulse oximetry Branch Systolic blood 2020-12-31 06:49:00 125 mm[Hg] Univer sity of pressure [facility] Diastolic blood 2020-12-31 06:49:00 93 mm[Hg] Unive rsity of pressure [place] [facility] Heart rate 2020-12-31 06:49:00 104 /min Universi ty of [place] [facility] Body temperature 2020-12-31 06:49:00 36.83 [place] Univ ersity of [facility] Respiratory rate 2020-12-31 06:49:00 15 /min Univ ersity of [facility] Body height 2020-12-31 06:49:00 152.4 cm Universi ty [facility] [place] [facility] Body weight 2020-12-31 06:49:00 92.5 kg Universi ty [facility] [place] [facility] BMI 2020-12-31 06:49:00 39.83 kg/m2 Universi ty of [place] [facility] Oxygen saturation in 2020-12-31 06:49:00 99 /min University of Arterial blood by [facility] Pulse oximetry Branch Systolic blood 2020-11-20 19:58:00 146 mm[Hg] Univer sity of pressure [place] [facility] Diastolic blood 2020-11-20 19:58:00 95 mm[Hg] Unive rsity of pressure [place] [facility] Heart rate 2020-11-20 19:58:00 98 /min Universi ty [facility] [place] [facility] Body temperature 2020-11-20 19:58:00 37.17 [place] Univ ersity of [place] [facility] Respiratory rate 2020-11-20 19:58:00 17 /min Univ ersity of [place] [facility] Oxygen saturation in 2020-11-20 19:58:00 100 /min University of Arterial blood by [facility] Pulse oximetry Branch Body weight 2020-11-20 16:43:00 92.534 kg Universi ty of [place] [facility] BMI 2020-11-20 16:43:00 39.84 kg/m2 Universi ty [facility] [place] [facility] Systolic blood 2020-11-20 19:58:00 146 mm[Hg] Univer sity of pressure [place] [facility] Diastolic blood 2020-11-20 19:58:00 95 mm[Hg] Unive rsity of pressure [place] [facility] Heart rate 2020-11-20 19:58:00 98 /min Universi ty [facility] [place] [facility] Body temperature 2020-11-20 19:58:00 37.17 [place] Univ ersity of [place] [facility] Respiratory rate 2020-11-20 19:58:00 17 /min Univ ersity of [place] [facility] Oxygen saturation in 2020-11-20 19:58:00 100 /min University of Arterial blood by [facility] Pulse oximetry Branch Body weight 2020-11-20 16:43:00 92.534 kg Universi ty [facility] [place] [facility] BMI 2020-11-20 16:43:00 39.84 kg/m2 [facility]i [facility] [place] [facility] Body height 2020-09-26 23:49:00 152.4 cm [facility]i ty [facility] [place] [facility] Body weight 2020-09-26 23:49:00 90.719 kg [facility]i ty [facility] [place] [facility] BMI 2020-09-26 23:49:00 39.06 kg/m2 [facility]i ty [facility] [place] [facility] Systolic blood 2020-09-26 23:45:00 103 mm[Hg] Univer sity of pressure [place] [facility] Diastolic blood 2020-09-26 23:45:00 62 mm[Hg] Unive rsity of pressure [place] [facility] Heart rate 2020-09-26 23:45:00 107 /min Universi ty [facility] [place] [facility] Body temperature 2020-09-26 23:45:00 36.61 [place] Univ ersity of [place] [facility] Respiratory rate 2020-09-26 23:45:00 18 /min Univ ersity of [place] [facility] Oxygen saturation in 2020-09-26 23:45:00 97 /min University of Arterial blood by [place] [employer] [facility] Pulse oximetry Branch Body height 2020-09-26 23:49:00 152.4 cm Universi ty [facility] [place] [facility] Body weight 2020-09-26 23:49:00 90.719 kg Universi ty [facility] [place] [facility] BMI 2020-09-26 23:49:00 39.06 kg/m2 [facility] [place] [facility] Systolic blood 2020-09-26 23:45:00 103 mm[Hg] Univer sity of pressure [place] [facility] Diastolic blood 2020-09-26 23:45:00 62 mm[Hg] Unive rsity of pressure [place] [facility] Heart rate 2020-09-26 23:45:00 107 /min [facility]i ty [facility] [place] [facility] Body temperature 2020-09-26 23:45:00 36.61 [place] Univ ersity of [place] [facility] Respiratory rate 2020-09-26 23:45:00 18 /min Univ ersity of [place] [facility] Oxygen saturation in 2020-09-26 23:45:00 97 /min University of Arterial blood by [place] [employer] [facility] Pulse oximetry Branch Systolic blood 2020-07-17 14:00:00 112 mm[Hg] Univer sity of pressure [place] [facility] Diastolic blood 2020-07-17 14:00:00 65 mm[Hg] Unive rsity of pressure [place] [facility] Heart rate 2020-07-17 14:00:00 86 /min Universi ty [facility] [place] [facility] Respiratory rate 2020-07-17 14:00:00 20 /min Univ ersity of [place] [facility] Oxygen saturation in 2020-07-17 14:00:00 100 /min University of Arterial blood by [facility] scott Pulse oximetry Branch Body temperature 2020-07-17 11:50:00 37.22 [place] Univ ersity of [facility] Body weight 2020-07-17 11:50:00 86.183 kg Universi ty [facility] BMI 2020-07-17 11:50:00 37.11 kg/m2 Universi ty [facility] Systolic blood 2020-07-17 14:00:00 112 mm[Hg] Univer sity of pressure [facility] Diastolic blood 2020-07-17 14:00:00 65 mm[Hg] Unive rsity of pressure [facility] Heart rate 2020-07-17 14:00:00 86 /min Universi ty [facility] Respiratory rate 2020-07-17 14:00:00 20 /min [facility] Oxygen saturation in 2020-07-17 14:00:00 100 /min University of Arterial blood by [facility] Pulse oximetry [place] Body temperature 2020-07-17 11:50:00 37.22 [place] [facility] ersity [facility] Body weight 2020-07-17 11:50:00 86.183 kg Universi ty [facility] BMI 2020-07-17 11:50:00 37.11 kg/m2 Universi [facility] Systolic blood 2022-03-26 13:44:00 139 mm[Hg] [facility] pressure Diastolic blood 2022-03-26 13:44:00 83 mm[Hg] [facility] pressure Heart rate 2022-03-26 13:44:00 101 /min [facility] Respiratory rate 2022-03-26 13:44:00 18 /min [facility] Oxygen saturation in 2022-03-26 13:44:00 100 /min [facility] Arterial blood by Pulse oximetry Body temperature 2022-03-26 12:32:00 36.72 [place] [facility] Body height 2022-03-26 12:32:[address] [facility] Body weight 2022-03-26 12:32:[address] [facility] BMI 2022-03-26 12:32:00 34.39 kg/m2 [facility] Procedures Procedure Date / Time Performing Clinician Source Performed URINALYSIS 2022-03-26 13:06:00 [facility] HCG QUALITATIVE, URINE 2022-03-26 13:06:00 [facility] SCREEN CBC WITH PLATELET AND 2022-03-26 12:46:00 [facility] DIFFERENTIAL COMPREHENSIVE METABOLIC 2022-03-26 12:46:00 [facility] PANEL ESTIMATED GFR 2022-03-26 12:46:00 [facility] POCT TEST 2022-02-27 04:56:00 Denis Car [facility] LIPASE 2022-02-27 04:04:[address] [facility] TROPONIN I 2022-02-27 04:04:[address] [facility] THYROID STIMULATING 2022-02-27 04:04:00 Denis Car [facility] HORMONE [facility] COMP. METABOLIC PANEL 2022-02-27 04:04:00 Denis Car [facility] ([id number]) [facility] CBC WITH DIFF 2022-02-27 04:04:[address] [facility] URINALYSIS 2022-02-27 03:56:[address] [facility] URINE DRUG (IMMUNOASSAY) 2022-02-27 03:56:00 [facility] SCREEN W/O REFLEX NOTICE OF PRIVACY 2022-02-27 03:05:57 Doctor Unassigned, No Univ [facility] PRACTICES Name [facility] CONSENT/REFUSAL FOR 2022-02-27 03:04:00 [facility], [facility] Name [facility] METABOLIC 2022-02-18 05:17:00 Carlos Hernandez [facility] PANEL ESTIMATED GFR 2022-02-18 05:17:00 Carlos Hernandez Ho spital [facility] METABOLIC 2022-02-18 04:38:00 [facility] PANEL ESTIMATED GFR 2022-02-18 04:38:[address] ABDOMEN PELVIS WO 2022-02-18 04:17:35 [facility] CULTURE 2022-02-18 04:00:00 Carlos Hernandez spital HC COMPLETE BLD COUNT 2022-02-18 04:00:00 Carlos Hernandez [facility] W/AUTO DIFF COMPREHENSIVE METABOLIC 2022-02-18 04:00:00 Carlos Hernandez [facility] PANEL ESTIMATED GFR 2022-02-18 04:00:00 Carlos Hernandez spital HCG QUALITATIVE, URINE 2022-02-18 02:50:00 Carlos Hernandez [facility] SCREEN URINALYSIS 2022-02-18 02:50:00 Carlos Hernandez spital RAPID STREP SCREEN FOR 2020-12-31 07:13:00 Akiko Dunaway [facility] GROUP A [facility] NOTICE OF PRIVACY 2020-12-31 06:34:54 Doctor Unassigned, No [facility] PRACTICES Name [facility] CONSENT/REFUSAL FOR 2020-12-31 06:34:35 [facility] Name [facility] CT HEAD WO CONTRAST 2020-11-20 18:18:22 John Rivera [facility] POCT TEST 2020-11-20 17:50:00 John Rivera [facility] BASIC METABOLIC PANEL 2020-11-20 17:24:00 John Rivera [facility] (NA, K, CL, CO2, Medical Branch GLUCOSE, BUN, CREATININE, CA) CBC WITH DIFF 2020-11-20 17:24:00 John Rivera [facility] CONSENT/REFUSAL FOR 2020-11-20 16:36:59 [facility] Name [facility] POCT TEST 2020-09-27 02:56:00 Tricia Herbert [facility] ASSIGNMENT OF BENEFITS 2020-09-27 01:35:31 Doctor Unassigned, No [facility] CONSENT/REFUSAL FOR 2020-09-26 23:26:24 Doctor Unassigned, No Un iversity [facility] DIAGNOSIS AND TREATMENT [facility] URINALYSIS 2020-07-17 14:08:[address] [facility] POCT TEST 2020-07-17 14:08:00 Austin Cowart [facility] CBC WITH DIFF 2020-07-17 12:25:[address] [facility] NOTICE OF PRIVACY 2020-07-17 11:48:39 Doctor Unassigned, No Univ [facility] PRACTICES [facility] CONSENT/REFUSAL FOR 2020-07-17 11:44:41 Doctor Unassigned, No [facility] Plan of Care Planned Activity Planned Date Details Comments Source Future Scheduled 2022-03-26 HE[facility]ITIS B [facility] 08:33:14 VACCINES (1 of 3 - 3-dose series) [code = HEPATITIS B VACCINES (1 of 3 - 3-dose series)] Future Scheduled 2022-03-26 COVID-[address] [facility] Test 08:33:14 (#1) [code = COVID-19 VACCINE (#1)] Future Scheduled 2022-03-26 Hepatitis C [facility] [facility]ital Test 08:33:14 screening (procedure) [code = 520166681] Future Scheduled 2022-03-26 [facility] 08:33:14 malignant neoplasm of cervix (procedure) [code = 001256649] Future Scheduled 2022-03-26 [facility] 08:33:14 [code = INFLUENZA VACCINE] Future Scheduled COVID-[address] [facility] (1) [code = COVID-19 VACCINE (1)] Future Scheduled [facility] screening (procedure) [code = 108617309] Future Scheduled [facility] malignant neoplasm of cervix (procedure) [code = 912510663] Future Scheduled [facility] [code = INFLUENZA VACCINE] Encounters Start End Encounter Admission Attending Care Care Encounter Source Date/Time Date/Time Type Type Clinicians Facility Department ID 2021-04-28 Emergency [facility] [id number] Univers 06:08:31 ity of [facility] 2021-04-27 Emergency [facility] [id number] Univers 21:27:31 ity [facility] 2021-04-27 Emergency [facility] [id number] Univers 10:13:04 ity [facility] 2021-04-26 Emergency [facility] [id number] Univers 18:11:30 ity [facility] 2022-03-26 2022-03-26 Emergency Sammy 1.2.840.1 [id number] Methodi 07:24:00 08:46:00 Ania frazier [address]2401.1.[address] 3.430.2.7 Hospit a .3.488916 l .8 2022-03-26 2022-03-26 Emergency SAMMY [facility] 064 2100 [id number] [place] 00:00:00 00:00:00 ANIA FRAZIER [address] 2022-03-26 2022-03-26 Travel 1.2.840.1 1.2.232.080 [id number] [id number] Methodi 00:00:00 00:00:[address] 3.430.2.7 0.2.7.3.698 Ho spita .3.303784 084.8 l .8 2022-02-26 2022-02-27 Emergency X [facility] [id number] Univers 22:26:00 00:44:00 DENIS ity [facility] 2022-02-26 2022-02-[address] [facility] 1.2.351.680 [id number] Univers 22:26:00 00:44:00 Denis HUMPHREYS 350.1.13.10 ity [facility] 4.2.7.2.686 [facility] [id number] [facility] 084 Branch 2022-02-17 2022-02-18 Emergency Nuszen, 1.2.840.1 [id number] [id number] Methodi 21:45:00 01:49:[address].1.[address] 3.430.2.7 Hospit a .3.169911 l .8 2022-02-17 2022-02-18 Emergency SHAHRAM, [facility] 064 [id number] 13 [place] 00:00:00 00:00:00 CARLOS Landaverde Method i st 2022-02-17 2022-02-17 Travel 1.2.840.1 1.2.325.679 6787 [id number] Methodi 00:00:00 00:00:[address] 3.430.2.7 0.2.7.3.698 Ho spita .3.319933 084.8 l .8 2020-12-31 2020-12-31 Emergency Gume, [facility] 1.2.840.114 855 16016 [facility] 02:02:00 03:26:00 Akiko Humphreys 350.1.13.10 i ty of [place] 4.2.7.2.686 [facility] [id number] [place] [address] Branch 2020-12-31 2020-12-31 Emergency Dunaway, [facility] 1.2.840.114 855 [id number] 02:02:00 03:26:00 Akiko Humphreys 350.1.13.10 [place] 4.2.7.2.686 [place] [id number] 084 2020-11-20 2020-11-20 Emergency Miguel, [facility] 1.2.222.253 0390 7828 [facility] 11:47:00 15:01:00 John Olivo [place] 350.1.13.10 i ty of [place] 4.2.7.2.686 [facility] [id number] [place] [address] Branch 2020-11-20 2020-11-20 Emergency Miguel, [facility] 1.2.304.050 3941 7828 11:47:00 15:01:00 John S [place] 350.1.13.10 [place] 4.2.7.2.686 [place] [id number] 084 2020-09-26 2020-09-26 Emergency Tricia Herbert [facility] 1.2.840.114 83 [id number] Univers 18:51:00 22:39:00 Lluvia Humphreys 350.1.13.10 i ty of [place] 4.2.7.2.686 [facility] [id number] [address] 2020-09-26 2020-09-26 Emergency Tricia Herbert [facility] 1.2.840.114 83 [id number] 18:51:00 22:39:00 Lluvia Humphreys 350.1.13.10 [place] [address] [place] [address] [id number] [facility] 2020-08-06 2020-08-06 Emergency X MIGUEL, [facility] ERT [id number] Univers 10:13:00 12:49:00 JOHN itnirali [facility] 2020-08-01 2020-08-03 Inpatient [facility] [id number] [facility] 09:14:00 03:39:32 21 [facility] 2020-07-17 2020-07-17 Emergency Austin Cowart [facility] 1.2.840 .114 [id number] [facility] 05:53:00 08:59:00 Dani Kauffman 350.1.13.10 ity [facility] 4.2.7.2.[address] [place] [id number] 2020-07-17 2020-07-17 Emergency Supa, Austin Ravi [facility] 1.2.840 .114 [id number] 05:53:00 08:59:00 Dani Kauffman 350.1.13.10 [place] [address] [place] [address] [id number] 084 Results Test Description Test Time Test Comments Results Result Comments Source THYROID STIMULATING HORMONE 2022-02-27 05:23:28 Test Item Value Reference Range Interpretation Comme nts TSH (test code = 5420538011) See_Comment [Automated message] The system which generated this result transmitted ref erence range: 0.45 - 4.70 mIU/L. T he reference range was not used to interpret this result as nakia l/abnormal. Lab Interpretation (test code = Normal 15381-3) [facility] [id number] 05:05:05 Test Item Value Reference Interpretation Comments Range TROPONIN I (test 0.006 ng/mL See_Comment [Automated code = 9833418288) message] The system which generated this result transmitted reference range : <=0.034. The reference range was not used to interpret this result as normal/abnormal . TOBI (test code = Reference (Normal) TOBI) Range (defined by the 99th percentile reference limit): <= 0.034 ng/mL Note: Cardiac troponin begins to rise 3-4 hours after the onset of ischemia. Repeat in 4-6 hours if the sample was drawn within 3-4 hours of the onset of the symptom and found normal. Diagnosis of myocardial injury is made with acute changes in cTn concentrations with at least one serial sample above the 99th percentile upper reference limit (URL), taken together with the patient's clinical presentation. Biotin has been reported to cause a negative bias, interpret results relative to patient's use of biotin. Lab Interpretation Normal (test code = 17395-8) [facility] [id number] 04:56:00 Test Item Value Reference Range Interpretation Comments POCT PREG (test code = 1605) negative Lab Interpretation (test code = Normal 31966-5) [facility]. METABOLIC PANEL (95728)2022-02-27 04:46:44 Test Item Value Reference Range Interpretation Comments NA (test code = 137 mmol/L 135-145 4403488729) K (test code = 3.7 mmol/L 3.5-5 9800176075) CL (test code = 102 mmol/L 98-108 9000947646) CO2 TOTAL (test code 26 mmol/L 23-31 = 8967767294) AGAP (test code = 2-16 3329339827) BUN (test code = 8 mg/dL 7-23 1958766451) GLUCOSE (test code = 96 mg/dL 70-110 6953471926) CREATININE (test code 0.77 mg/dL 0.5-1.04 = 0635208532) TOTAL BILI (test code 0.4 mg/dL 0.1-1.1 = 2757562872) CALCIUM (test code = 9.2 mg/dL 8.6-10.6 5902762293) T PROTEIN (test code 7.2 g/dL 6.3-8.2 = 4108085008) ALBUMIN (test code = 4.5 g/dL 3.5-5 5918245124) ALK PHOS (test code = 58 U/L 34-122 6205494182) ALTv (test code = 30 U/L 5-35 1742-6) AST(SGOT) (test code 17 U/L 13-40 = 3452396986) eGFR (test code = mL/min/1.73m2 4329684371) TOBI (test code = TOBI) Association of Glomerular Filtration Rate (GFR) and Staging of Kidney Disease* + + +- +| GFR (mL/min/1.73 m2) ?| With Kidney Damage ?| ?Without Kidney Damage+ ------+ ----+ ------+| ?>90 ?| ?Stage one ?| ? Normal ?+ -+ + -+| ?60-89 ?| ?Stage two ?| ? Decreased GFR ? + + +- +| ?30-59 ?| ?Stage three ?| ? Stage three ? + + +- +| ?15-29 ?| ?Stage four ? | ? Stage four ?+ -+ + -+| ?<15 (or dialysis) ? ?| ?Stage five ? | ? Stage five ?+ -+ + -+ *Each stage assumes the associated GFR level [...] or urine or abnormalities in imaging tests). [facility] 04:46:44 Test Item Value Reference Range Interpretation Comments LIPASE (test code = 9271216810) 91 U/L 0-220 Lab Interpretation (test code = Normal 69615-4) [facility] [id number] 04:33:23 Test Item Value Reference Range Interpretation Comments WBC (test code = See_Comment [Automated 6690-2) message] The sy stem which generated this [...] as normal/abnormal . HGB (test code = 14.2 g/dL 11.6-15 718-7) HCT (test code = 41.5 % 35.7-45.2 4544-3) MCV (test code = 87.2 fL 80.6-95.5 787-2) MCH (test code = 29.8 pg 25.9-32.8 785-6) MCHC (test code = 34.2 g/dL 31.6-35.1 786-4) RDW-SD (test code = 41.0 fL 39-49.9 72876-4) RDW-CV (test code = 13.1 % 12-15.5 788-0) PLT (test code = See_Comment H [Automated 777-3) message] The sy stem which generated this result transmitted reference range : 166 - 358 10*3/ ?L. The reference r shira was not used to interpret this result as normal/abnormal . MPV (test code = 10.1 fL 9.5-12.9 23639-0) NRBC/100 WBC (test See_Comment [Automat ed code = 0392958007) message] The system which generated this result transmitted reference range : 0.0 - 10.0 /100 WBCs. The refer ence range was not u sed to interpret th is result as normal/abnormal . NRBC x10^3 (test code See_Comment [Auto mated = 5925170223) message] The s ystem which generated this result transmitted reference range : 10*3/?L. The reference range was not used to interpret this result as normal/abnormal . GRAN MAT (NEUT) % 52.2 % (test code = 770-8) IMM GRAN % (test code 0.30 % = 4684248210) LYMPH % (test code = 37.9 % 736-9) MONO % (test code = 5.9 % 5905-5) EOS % (test code = 3.1 % 713-8) BASO % (test code = 0.6 % 706-2) GRAN MAT x10^3(ANC) 4.83 10*3/uL 1.88-7.09 (test code = 8070361290) IMM GRAN x10^3 (test 0.03 10*3/uL 0-0.06 code = 0837994834) LYMPH x10^3 (test code 3.51 10*3/uL 1.32-3.29 H = 731-0) MONO x10^3 (test code 0.55 10*3/uL 0.33-0.92 = 742-7) EOS x10^3 (test code = 0.29 10*3/uL 0.03-0.39 711-2) BASO x10^3 (test code 0.06 10*3/uL 0.01-0.07 = 704-7) Lab Interpretation Abnormal (test code = 62631-2) [facility] FOR GROUP [id number] 07:59:00 Test Item Value Reference Range Interpretation Comments Streptococcus pyogenes (group A) Negative Negative antigen (test code = 76570-0) Lab Interpretation (test code = Normal 28365-0) [facility] HEAD WO [id number] 18:21:18No acute findings. HISTORY:Head trauma, mod-severe hit left head, near syncope, persistentsevere headache and dizziness TECHNIQUE: Noncontrast head CT was performed. COMPARISON:None FINDINGS: The ventricles and sulci are appropriate for patient's age. There is no midline shift. The basal cisterns are preserved. No largevascular territory infarction, intracranial hemorrhage or mass effect isseen. The extracranial tissues demonstrate no acute findings. [facility], Radiant Results Inft User - 11/20/2020 1:22PM CDT HISTORY:Head trauma, mod-severe hit left head, near syncope, persistentsevere headache and dizziness TECHNIQUE: Noncontrast head CT was performed.COMPARISON:NoneFINDINGS:The ventricles and sulci are appropriate for patient's age.There is no midline shift. The basal cisterns are preserved. No largevascular territory infarction, intracranial hemorrhage or mass effect isseen.The extracranial tissues demonstrate no acute findings.IMPRESSIONNo acute findings.[facility] METABOLIC PANEL (NA, K, CL, CO2, GLUCOSE, BUN, CREATININE, CA)2020-11-20 18:00:40 Test Item Value Reference Range Interpretation Comments NA (test code = 137 mmol/L 135-145 8351579104) K (test code = 4.2 mmol/L 3.5-5.0 3375242465) CL (test code = 104 mmol/L 98-108 4185102404) CO2 TOTAL (test code = 22 mmol/L 23-31 L 5357752207) AGAP (test code = 2-16 6440300084) BUN (test code = 10 mg/dL 7-23 2213979174) GLUCOSE (test code = 150 mg/dL 70-110 H 6616468528) CREATININE (test code = 0.59 mg/dL 0.50-1.04 7185802055) CALCIUM (test code = 9.5 mg/dL 8.6-10.6 5457255146) eGFR (test code = mL/min/1.73m2 0956362770) TOBI (test code = TOBI) Association of [...] tests). Lab Interpretation Abnormal (test code = 20896-6) [facility] [id number] 17:50:00 Test Item Value Reference Range Interpretation Comments POCT PREG (test code = 1605) negative On board controls acceptable with present C Line (test code = 3574) POCT PREG LOT # (test code = 3575) [id number] POCT PREG TEST DATE (test 05/27/2022 code = 3576) Lab Interpretation (test code = Normal 18008-0) [facility] [id number] 17:32:17 Test Item Value Reference Range Interpretation Comments WBC (test code = See_Comment [Automated 0190-2) message] The sy stem which generated this result transmitted reference range : 4.30 - 11.10 10*3/?L. The reference range was not used to interpret this result as normal/abnormal . RBC (test code = See_Comment [Automated 429-8) message] The sy stem which generated this [...] RDW-SD (test code = 40.4 fL 39.0-49.9 83893-6) RDW-CV (test code = 13.0 % 12.0-15.5 788-0) PLT (test code = See_Comment H [Automated 777-3) message] The sy stem which generated this result transmitted reference range : 166 - 358 10*3/ ?L. The reference r shira was not used to interpret this result as normal/abnormal . MPV (test code = 9.5 fL 9.5-12.9 55925-0) NRBC/100 WBC (test See_Comment [Automat ed code = 8699600839) message] The system which generated this result transmitted reference range : 0.0 - 10.0 /100 WBCs. The refer ence range was not u sed to interpret th is result as normal/abnormal . NRBC x10^3 (test code <0.01 See_Comment [Auto mated = 3328943850) message] The s ystem which generated this result transmitted reference range : 10*3/?L. The reference range was not used to interpret this result as normal/abnormal . GRAN MAT (NEUT) % 83.0 % (test code = 770-8) IMM GRAN % (test code 0.70 % = 9581916410) LYMPH % (test code = 12.5 % 736-9) MONO % (test code = 3.7 % 5905-5) EOS % (test code = 0.0 % 713-8) BASO % (test code = 0.1 % 706-2) GRAN MAT x10^3(ANC) 8.41 10*3/uL 1.88-7.09 H (test code = 5416917131) IMM GRAN x10^3 (test 0.07 10*3/uL 0.00-0.06 H code = 6145067726) LYMPH x10^3 (test code 1.26 10*3/uL 1.32-3.29 L = 731-0) MONO x10^3 (test code 0.37 10*3/uL 0.33-0.92 = 742-7) EOS x10^3 (test code = <0.03 0.03-0.39 L 711-2) BASO x10^3 (test code <0.03 0.01-0.07 = 704-7) Lab Interpretation Abnormal (test code = 04276-7) [facility] [id number] 02:56:00 Test Item Value Reference Range Interpretation Comments POCT PREG (test code = 1605) negative On board controls acceptable with present C Line (test code = 3574) POCT PREG LOT # (test code = 3575) [id number] POCT PREG TEST DATE (test 02/25/2022 code = 3576) Lab Interpretation (test code = Normal 77562-4) [facility] Center[facility]YDIA GC DNA BY [id number] 14:24:00 Test Item Value Reference Range Interpretation Comments C. TRACHOMATIS DNA BY Negative Negative PCR (test code = CHLAMTDNA) N. GONORRHOEAE DNA BY Negative Negative Perfor med At: ST PCR (test code = [facility] NGONORDNA) [id number] [facility] [place], [place] [id number] Cayla Rodrigues MD Ph:[phone] - DUP AB/PEL/SC/[id number] 14:12:00 [facility] : 1995 Sex: F Patient Name: FATMATA DUNCAN Unit No: [id number] EXAMS: CPT CODE: [id number] DUP AB/PEL/SC/LTD 66689 PELVIC ULTRASOUND, 08/01/2020: COMPARISON: CT pelvis dated [...] D/ (1412) t.JESSICAR.AJ13 Orig Print D/T: S: 08/01/2020(4885) [facility] NAME: FATMATA DUNCAN Radiology Department PHYS: Winter Landaverde MD [address] : 1995 AGE: 24 SEX: F [place] [address] LOC: ShaylaERS PHONE #: [phone] EXAM DATE: 08/01/2020 STATUS: REG ER FAX #: [phone] RAD NO: Page 1 Signed Report Patient Name: FATMATA DUNCAN Unit No: [id number] EXAMS: CPT CODE: [id number] DUP AB/PEL/SC/LTD 67479 (Continued) [facility] NAME: FATMATA DUNCAN Radiology Department PHYS: ELLIS.Winter Ortiz MD [address] : 1995 AGE: 24 SEX: F [place] [address] LOC: Saran.ERS PHONE #: [phone] EXAM DATE: 08/01/2020 STATUS: REG ER FAX #: [phone] RAD NO: Page 2 Signed Report- US TRANSVAGINAL [id number] 14:12:00 [facility] : 1995 Sex: F Patient Name: FATMATA DUNCAN Unit No: [id number] EXAMS: CPT CODE: [id number] US TRANSVAGINAL W/PELVIS 39598 PELVIC ULTRASOUND, 08/01/2020: COMPARISON: CT pelvis dated August 01, 2020 CLINICAL HISTORY: pain TECHNIQUE: Transabdominal and endovaginal scanning was performed. FINDINGS: The uterus measures 9.4x 4.7 x 4.6 cm. The endometrial stripe [...] No acute abnormality identified. Bilateral ovarian follicles. t 141 Reported and signed by: Joe Agudelo MD CC: Winter Mccollum MD; Austin Barrera Technolog ist: Alexandra Elder RDMS Probe: [id number] Trnscrbd D/ (141) AlfredoAJ13 Orig Print D/T: S: 08/01/2020 (1415) [facility] NAME: FATMATA DUNCAN Radiology Department PHYS: CANAL. Winter Mccollum MD [address] : 1995 AGE: 24 SEX: F [place], [place] [address] LOC: ShaylaERS PHONE #: [phone] EXAM DATE: 08/01/2020 STATUS: REG ER FAX #: [phone] RAD NO: Page 1 Signed Report Patient Name: FATMATA DUNCAN Unit No: [id number] EXAMS: CPT CODE: [id number] US TRANSVAGINAL W/PELVIS 67149 (Continued) [facility] NAME: FATMATA DUNCAN Radiology Department PHYS: Winter Landaverde MD [address] : 1995 AGE: 24SEX: F [place], [place] [address] LOC: ShaylaERS PHONE #: [phone] EXAM DATE: 08/01/2020 STATUS: REG ER FAX #: [phone] RAD NO: Page 2 Signed Report- US PELVIS [id number] 14:12:00 [facility] : 1995 Sex: F Patient Name: FATMATA DUNCAN Unit No: [id number] EXAMS: CPT CODE: [id number] US PELVIS COMPLETE 81400 PELVIC ULTRASOUND, 08/01/2020: COMPARISON: CT pelvis dated [...] Orig Print D/T: S: 08/01/2020 (1415) [facility] NAME: FATMATA DUNCAN Radiology Department PHYS: Winter Landaverde MD [address] : 1995 AGE: 24 SEX: F [place] [address] : ShaylaERS PHONE #: [phone] EXAM DATE: 08/01/2020 STATUS: REG ER FAX #: [phone] RAD NO: Page 1 Signed Report Patient Name: FATMATA DUNCAN Unit No: [id number] EXAMS: CPT CODE: [id number] US PELVIS COMPLETE 86690 (Continued) [facility] NAME: DUNCANLYUBOV PHILLIPRINA Radiology Department PHYS: Witner Landaverde MD [address] : 1995 AGE: 24 SEX: F [place] [address] LOC: ShaylaERS PHONE #: [phone] EXAM DATE: 08/01/2020 STATUS: REG ER FAX #: [phone] RAD NO: Page 2 Signed Report- CT ABD PELVIS W/O [id number] 10:58:[facility] : 1995 Sex: F Patient Name: FATMATA DUNCAN Unit No: [id number] EXAMS: CPT CODE: [id number] CT ABD PELVIS W/O CONT 41632 CT ABDOMEN/CT STONE SURVEY WITHOUT CONTRAST, 08/01/2020 [...] adrenals appeared unremarkable. The gallbladder is present. Noradiopaque gallstones or pericholecystic fluid noted. Abdominal aorta is normal in caliber. IMPRESSION: No opaque renal/ureteral calculi identified. Nonspecific 6 mm right middle lobe pulmonary nodule. [facility] NAME: FATMATA DUNCAN Radiology Department PHYS: Winter Landaverde MD [address] : 1995 AGE: 24 SEX: F [place], [place] [address] LOC: SANYD PHONE #: [phone] EXAM DATE: 08/01/2020 STATUS: REG ER FAX #: [phone] RAD NO: Page 1 Signed Report 1 Patient Name: FATMATA DUNCAN Unit No: [id number] EXAMS: CPT CODE: [id number] CT ABD PELVIS W/O CONT 43254 (Continued) CT PELVIS WITHOUT CONTRAST: No opaque ureteral calculi and/or ureteral dilatation noted in the pelvis. Visualized bowel loops appear unremarkable without bowel wall thick ening. No right lower quadrant inflammatory process noted. [...] 13.28 DLP: 653.43 Trnscrbd D/ (1058) tTARAR.AJ13 [facility] NAME: FATMATA DUCNAN Radiology Department PHYS: Winter Landaverde MD [address] : 1995 AGE: 24 SEX:F [place] [address] LOC: SANDY PHONE #: [phone] EXAM DATE: 08/01/2020TATUS: REG ER FAX #: [phone] RAD NO: Page 2 Signed Report 1 Patient Name: FATMATA DUNCAN Unit No: [id number] EXAMS: CPT CODE: [id number] CT ABD PELVIS W/O CONT 83992 (Continued) Orig Print D/T:S: 08/01/2020 (1101) [facility] NAME: FATMATA DUNCAN Radiology Department PHYS:Winter Landaverde MD [address] : 1995 AGE: 24 SEX: F [place] [address] LOC: SANDY PHONE #: [phone] EXAM DATE: 08/01/2020 STATUS: REG ER FAX #: [phone] RAD NO: Page 3 Signed Report 1UA RFLX MICR CULT IF [id number] 10:04:00 Test Item Value Reference Range Interpretation [...] DIPSTICK (test code = 2+ NEG A TION) UA PH DIPSTICK (test code = 6.0 [...] culture: Suprapubic PainSpecimen Description: CLEAN CATCHUR HCG [id number] 10:04:00 Test Item Value Reference Range Interpretation [...] Description: CLEAN CATCHUA RFLX MICR CULT IF [id number] 10:03:00 Test Item Value Reference Range Interpretation [...] culture: Suprapubic PainSpecimen Description: CLEAN CATCHUR HCG [id number] 10:03:00 Test Item Value Reference Range Interpretation Comments UR HCG QUAL (test code = HCGQLU) Indication for culture: Suprapubic PainSpecimen Description: CLEAN CATCH [id number] 14:39:00 Test Item Value Reference Range Interpretation Comments APPEARANCE (test code = Hazy Clear A 4150558424) COLOR (test code = Yellow Yellow 9257779228) PH (test code = 4.8-8.0 6374528660) SP GRAVITY (test code = 1.003-1.030 7132425229) GLU U QUAL (test code = Normal Normal 2427506034) BLOOD (test code = Negative Negative INTERFERE NCE FROM 6536039367) ASCORBIC ACID M AY CAUSE FALSE NEG ATIVE RESULT KETONES (test code = Negative Negative 2950656474) PROTEIN (test code = Negative Negative 2887-8) UROBILIN (test code = Normal Normal 8466149870) BILIRUBIN (test code = Negative Negative 2037077791) NITRITE (test code = Negative Negative 0060555688) LEUK SILVINO (test code = Negative Negative 9632283136) RBC/HPF (test code = See_Comment [Autom ated message] 8713432500) The system [employer] generated this result transmitted ref erence range: 0 - 3 HP F. The reference range was not used to int erpret this result as normal/abnormal . WBC/HPF (test code = <1 See_Comment [Autom ated message] 0481168995) The system [employer] generated this result transmitted ref erence range: 0 - 5 HP F. The reference range was not used to int erpret this result as normal/abnormal . BACTERIA (test code = Few Negative A 7332704568) MUCOUS (test code = Slight Negative LPF A 3683081530) SQ EPITH (test code = HPF 7948000204) Lab Interpretation (test Abnormal code = 72066-3) [facility] [id number] 14:08:00 Test Item Value Reference Range Interpretation Comments POCT PREG (test code = 1605) negative On board controls acceptable with present C Line (test code = 3574) POCT PREG LOT # (test code = 3575) [id number] POCT PREG TEST DATE (test 2022-02-25 code = 3576) Lab Interpretation (test code = Normal 19243-2) [facility] WITH [id number] 12:41:00 Test Item Value Reference Range Interpretation Comments WBC (test code = See_Comment [Automated 4690-2) message] The sy stem which generated this result transmitted reference range : 4.30 - 11.10 10*3/?L. The reference range was not used to interpret this result as normal/abnormal . RBC (test code = See_Comment [Automated 199-8) message] The sy stem which generated this [...] RDW-SD (test code = 40.8 fL 39-49.9 86482-8) RDW-CV (test code = 13.0 % 12-15.5 788-0) PLT (test code = See_Comment H [Automated 777-3) message] The sy stem which generated this result transmitted reference range : 166 - 358 10*3/ ?L. The reference r shira was not used to interpret this result as normal/abnormal . MPV (test code = 9.5 fL 9.5-12.9 33912-2) NRBC/100 WBC (test See_Comment [Automat ed code = 8430392910) message] The system which generated this result transmitted reference range : 0.0 - 10.0 /100 WBCs. The refer ence range was not u sed to interpret th is result as normal/abnormal . NRBC x10^3 (test code <0.01 See_Comment [Auto mated = [id number]) message] The s ystem which generated this result transmitted reference range : 10*3/?L. The reference range was not used to interpret this result as normal/abnormal . GRAN MAT (NEUT) % 49.7 % (test code = 770-8) IMM GRAN % (test code 0.40 % = [id number]) LYMPH % (test code = 37.6 % 736-9) MONO % (test code = 6.3 % 5905-5) EOS % (test code = 5.4 % 713-8) BASO % (test code = 0.6 % 706-2) GRAN MAT x10^3(ANC) 4.65 10*3/uL 1.88-7.09 (test code = 8655062047) IMM GRAN x10^3 (test 0.04 10*3/uL 0-0.06 code = [id number]) LYMPH x10^3 (test code 3.52 10*3/uL 1.32-3.29 H = 731-0) MONO x10^3 (test code 0.59 10*3/uL 0.33-0.92 = 742-7) EOS x10^3 (test code = 0.51 10*3/uL 0.03-0.39 H 711-2) BASO x10^3 (test code 0.06 10*3/uL 0.01-0.07 = 704-7) Lab Interpretation Abnormal (test code = 23669-3) [facility] W/AUTO [id number] 07:27:00 Test Item Value Reference Range Interpretation [...] NORMAL code = PLTMR) AG HEPATITIS B [id number] 04:15:00 Test Item Value Reference Range Interpretation Comments AG HEPATITIS B SURFACE (test code NONREACTIVE NONREACTIVE = HBSAG) AB HEPATITIS C [id number] 04:15:00 Test Item Value Reference Range Interpretation Comments AB HEPATITIS C (test code = NONREACTIVE NONREACTIVE HCVAB) SIGNAL TO CUTOFF (test code = 0.13 <0.80 N CUTOFF) RUBELLA [id number] 04:15:00 Test Item Value Reference Range Interpretation Comments RUBELLA SCREEN 70.2 IUnit/ml Results >10. 0IUnits/ml (test code = are considered positive RUBSC) inaccordance wi th the CLSI guidelines and based on the O International S tandard for Anti-Rubell a serum as anindicator of immune status and a br eakpoint to detect mostseropositiv e persons. AB [id number] 04:15:00 Test Item Value Reference Range Interpretation Comments AB TREPONEMA (test code = TREPAB) NONREACTIVE NONREACTIVE AG HEPATITIS B [id number] 04:00:00 Test Item Value Reference Range Interpretation Comments AG HEPATITIS B SURFACE (test code NONREACTIVE NONREACTIVE = HBSAG) AB HEPATITIS C [id number] 04:00:00 Test Item Value Reference Range Interpretation Comments AB HEPATITIS C (test code = HCVAB) NONREACTIVE SIGNAL TO CUTOFF (test code = CUTOFF) <0.80 RUBELLA [id number] 04:00:00 Test Item Value Reference Range Interpretation Comments RUBELLA SCREEN 70.2 IUnit/ml Results >10. 0IUnits/ml (test code = are considered positive RUBSC) inaccordance wi th the CLSI guidelines and based on the WH O International S tandard for Anti-Rubell a serum as anindicator of immune status and a br eakpoint to detect mostseropositiv e persons. AB [id number] 04:00:00 Test Item Value Reference Range Interpretation Comments AB TREPONEMA (test code = TREPAB) NONREACTIVE NONREACTIVE CBC W/AUTO [id number] 00:36:00 Test Item Value Reference Range Interpretation [...]
[2022-03-26 18:11] LABS: Urine Blood 3+ (Negative); Urine Glucose Negative (Negative); Urine Protein 2+ (Negative)
[2022-03-26] MEDS ORDERED: NA CHLORIDE 0.9% 1,000 ML ONE (18:22)
[2022-03-26] MEDS ORDERED: ONDANSETRON 4 MG/2 ML VIAL ONE (18:22)
[2022-03-26] MEDS ORDERED: MORPHINE 2 MG/ML SYR ONE ×2 (18:22→20:01)
[2022-03-26 18:34] LABS: Absolute Lymphocytes (CBC) 2.9 K/uL (0.7-4.9); Hematocrit 40.5 % (36.0-45.0); Lymphocytes % 26.7 % (15.3-44.8); MCV 87.8 fL (80-100); MPV 7.5 fL (7.6-11.3); RBC Red Blood Cell Count 4.61 M/uL (3.86-4.86)
[2022-03-26 18:45] LABS: Protime INR 0.96
[2022-03-26 18:54] LABS: BUN Blood Urea Nitrogen 6 mg/dL (7-18); Bicarbonate 27 mmol/L (21-32); Glomerular Filtration Rate 96 ml/min (=/>90); Glucose Level 99 mg/dL (74-106); Potassium 3.7 mmol/L (3.5-5.1); Sodium Level 138 mmol/L (136-145)
[2022-03-26 18:58] LABS: HCG, Quantitative < 1 mIU/mL (1-3)
[2022-03-26 19:09] LABS: Urine Bacteria <20 /HPF (<20); Urine Mucus Slight /HPF (None Seen); Urine RBC >50 /HPF (None Seen)
--- NOTE | 2022-03-26 19:45 | RAD REPORT ---
EXAM DESCRIPTION: US - Transvaginal OB - 03/26/2022 7:36 pm CLINICAL HISTORY: VAGINAL BLEEDING COMPARISON: OB Complete dated 01/16/2018; Abdomen Pelvis W Contrast dated 01/16/2022 FINDINGS: No intrauterine gestational sac or sac remnant. No endometrial hematoma, mass or other ran picious endometrial finding. No myometrial abnormality. No blood or fluid in the cul de sac. Normal left ovary is seen with normal blood flow in the left ova nixon stroma. Right ovary was not identifiable, obscured by bowel. No adnexal masses. No findings susp icious for ectopic . IMPRESSION: No gestational sac or sac remnant. No endometrial abnormality identifiable. Unremarkable left ovary. Right ovary was not visualized due to prominent bowel. No adnexal abnormality to suspect ectopic .
--- NOTE | 2022-03-26 20:45 | RAD REPORT ---
EXAM DESCRIPTION: CT - Abdomen Pelvis W Contrast - 03/26/2022 8:33 pm CLINICAL HISTORY: abdominal pain, vaginal bleeding, vomiting, history recent miscarriage COMPARISON: Abdomen Pelvis W Contrast dated 01/16/2022; Transvaginal OB dated 03/26/2022 TECHNIQUE: Biphasic, helical CT imaging of the abdomen and pelvis was performed following 100 ml non -ionic IV contrast. No oral contrast administered. All CT scans are performed using dose optimization technique as appropriate and may include automated exposure control or mA/KV adjustment according to patient size. FINDINGS: No suspicious findings in the lung bases. The liver, spleen, and pancreas show no suspicious findings. Gallbladder and biliary tree are also wi thout suspicious finding. Symmetric renal function is seen with no hydronephrosis or suspicious renal mass. No pyelonephritis o r acute parenchymal process. No bladder abnormalities. No adrenal abnormalities. Uterine size is normal. No air or focal abnormality seen within the endometrial cavity. Left ovary cl osely approximates the lateral margin of the uterus with no suspicious finding. Right ovary is more s uperiorly positioned and surrounded by bowel. This would explain the nonvisualization at sonography. No right ovarian abnormality seen. No adnexal abnormality seen. No dilated bowel loops or bowel wall thickening. No free air, free fluid or inflammatory stranding. No hernia, mass or bulky lymphadenopathy. No suspicious bony findings. IMPRESSION: Contrast enhanced CT abdomen and pelvis showing no acute or emergent finding.
--- NOTE | 2022-03-26 22:05 | ER ---
Nurse's Notes [facility] Name: Carla Duncan Age: 26 yrs Sex: Female : 1995 Arrival Date: 03/26/2022 Time: 17:54 Bed 14 Private MD: Diagnosis: Lower abdominal pain, unspecified;Nausea with vomiting, unspecified Presentation: 03/26 18:00 Chief complaint: Patient states: pt started bleeding yesterday, drove to hospital in [address] which confirmed HCG levels, gave her pain meds, and discharged her home with miscarriage information. Less than 12 weeks; LMP 02/02/22. Coronavirus screen: Vaccine status: Patient reports being unvaccinated. Client denies travel out of the [place] in the last 14 days. Ebola Screen: Patient negative for fever greater than or equal to 101.5 degrees Fahrenheit, and additional compatible Ebola Virus Disease symptoms Patient denies exposure to infectious person. Patient denies travel to an Ebola-affected area in the 21 days before illness onset. Initial Sepsis Screen: Does the patient meet any 2 criteria? No. Patient's initial sepsis screen is negative. Does the patient have a suspected source of infection? No. Patient's initial sepsis screen is negative. Risk Assessment: Do you want to hurt yourself or someone else? Patient reports no desire to harm self or others. Onset of symptoms was March 25, 2022. 18:00 Method Of Arrival: Ambulatory [facility] 18:00 Acuity: VENKATESH 3 [facility] Triage Assessment: 18:04 General: Appears uncomfortable, obese, Behavior is calm, cooperative, anxious. Pain: [facility] Complains of pain in abdomen. 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 - Social history:: Smoking status: Reported history of juuling and/or vaping. Screenin:16 Abuse screen: Denies threats or abuse. Denies injuries from another. Nutritional ko1 screening: No deficits noted. Tuberculosis screening: No symptoms or risk factors identified. Fall Risk None identified. Assessment: 18:16 Obstetrical Assessment: General assessment: awake and alert, anxious, skin warm and ko1 dry, respirations even and unlabored. : No deficits noted. Vital Signs: 18:00 BP 138 / 99; Pulse 98; Resp 20; Temp 98.8; Pulse Ox 98% ; Weight 81.65 kg; Height 5 ft. [facility] 0 in. (152.40 cm); Pain 10/10; 18:00 BP 122 / 81; Pulse 118; Pulse Ox 97% ; ko1 18:30 BP 122 / 81; Pulse 117; Pulse Ox 97% ; ko1 18:00 Body Mass Index 35.15 (81.65 kg, 152.40 cm) 5 ED Course: 17:54 Patient arrived in ED. mr 18:00 Michael Dowd PA is PHCP. cp 18:01 Maikel Oneill MD is Attending Physician. cp 18:01 Lauryn Begum, JUDI is Primary Nurse. ko1 18:04 Triage completed. [facility] 18:04 Arm band placed on right wrist. [facility] 18:16 Patient has correct armband on for positive identification. Placed in gown. Bed in low ko1 position. Call light in reach. Side rails up X 1. 18:16 Inserted saline lock: 20 gauge in right antecubital area, using aseptic technique. ko1 Blood collected. 18:31 Ptt, Activated Sent. ko1 18:31 PT-INR Sent. ko1 18:32 Basic Metabolic Panel Sent. ko1 18:32 CBC with Diff Sent. ko1 18:32 Quantitative Hcg Sent. ko1 18:32 Abo/rh Typing Sent. ko1 18:32 Urine Microscopic Only Sent. ko1 19:38 US Transvaginal Ob In Process Unspecified. EDMS 20:35 CT Abd/Pelvis - IV Contrast Only In Process Unspecified. EDMS 22:00 Assist provider with pelvic exam: Set up pelvic tray. Performed by Michael MADSEN aa9 Patient tolerated well. 22:03 Hal Watters MD is Attending Physician. cp 22:46 IV discontinued, intact, bleeding controlled, No redness/swelling at site. Pressure aa9 dressing applied. Administered Medications: 18:23 Drug: NS 0.9% 1000 ml Route: IV; Rate: 1 bolus; Site: right antecubital; ko1 18:29 Drug: Zofran (Ondansetron) 4 mg Route: IVP; Site: right antecubital; ko1 18:31 Drug: morphine 2 mg Route: IVP; Infused Over: 4 mins; Site: right antecubital; ko1 22:11 Follow up: Response: No adverse reaction; RASS: Alert and Calm (0) aa9 20:05 Drug: morphine 2 mg Route: IVP; Infused Over: 4 mins; Site: right antecubital; aa9 22:11 Follow up: Response: No adverse reaction; RASS: Alert and Calm (0) aa9 22:46 Drug: Phenergan (promethazine) 25 mg Route: IM; Site: left vastus lateralis; aa9 22:46 Drug: morphine 4 mg Route: IVP; Infused Over: 4 mins; Site: right antecubital; aa9 Medication: 18:16 VIS not applicable for this client. ko1 Outcome: 22:04 Discharge ordered by . cp 22:45 Discharged to home ambulatory. aa9 22:45 Condition: stable 22:45 Discharge instructions given to patient, Instructed on discharge instructions, follow up and referral plans. medication usage, Demonstrated understanding of instructions, follow-up care, medications, Prescriptions given X 2. 22:46 Patient left the ED. aa9 Signatures: Dispatcher [employer] EDUT HiramKathryn Corey, PA PA cp Rees, Jessica, RN RN jh5 Lee Ann Alejo RN RN aa9 Lauryn Begum RN RN ko1
--- NOTE | 2022-03-26 22:05 | EDPHYS ---
Physician Documentation [facility] Name: Carla Duncan Age: 26 yrs Sex: Female : 1995 Arrival Date: 03/26/2022 Time: 17:54 Bed 14 Private MD: ED Physician Hal Watters HPI: 03/26 18:25 This 26 yrs old Female presents to ER via Ambulatory with complaints of cp Vaginal Bleeding, + Preg <12wks, Vomiting. 18:25 The patient presents to the emergency department with nausea and vomiting, vaginal cp bleeding, with clots. 18:25 Associated signs and symptoms: Pertinent positives: abdominal pain, nausea, vaginal cp bleeding, vomiting. 18:25 Patient reports vaginal bleeding since yesterday. Reports being seen at hospital in [facility] and having positive testing. Was discharged with diagnosis of miscarriage and discharged home with pain medications. Reports LMP 02-10-2022. Patient c/o continued abdominal pain, vaginal bleeding. 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 - Social history:: Smoking status: Reported history of juuling and/or vaping. ROS: 18:30 Constitutional: Negative for body aches, chills, fever, poor PO intake. cp 18:30 Eyes: Negative for injury, pain, redness, and discharge. cp 18:30 Cardiovascular: Negative for chest pain, edema, palpitations. cp 18:30 Respiratory: Negative for cough, shortness of breath, wheezing. 18:30 Abdomen/GI: Positive for abdominal pain. 18:30 : Positive for vaginal bleeding, Negative for urinary symptoms. 18:30 Neuro: Negative for altered mental status, headache, weakness. 18:30 All other systems are negative. cp Exam: 18:40 Constitutional: The patient appears in no acute distress, alert, awake, non-toxic, well cp developed, well nourished, uncomfortable. 18:40 Head/Face: Normocephalic, atraumatic. cp 18:40 Eyes: Periorbital structures: appear normal, Conjunctiva: normal, no exudate, no injection, Sclera: no appreciated abnormality, Lids and lashes: appear normal, bilaterally. 18:40 ENT: External ear(s): are unremarkable, Nose: is normal, Mouth: Lips: moist, Oral mucosa: pink and intact, moist, Posterior pharynx: Airway: no evidence of obstruction, patent. 18:40 Chest/axilla: Inspection: normal. 18:40 Cardiovascular: Rate: normal, Rhythm: regular. 18:40 Respiratory: the patient does not display signs of respiratory distress, Respirations: normal, no use of accessory muscles, no retractions, labored breathing, is not present, Breath sounds: are clear throughout, no decreased breath sounds, no stridor, no wheezing. 18:40 Abdomen/GI: Inspection: abdomen appears normal, Bowel sounds: active, all quadrants, Palpation: soft, in all quadrants, moderate abdominal tenderness, in the right lower quadrant and left lower quadrant, rebound tenderness, is not appreciated, involuntary guarding, is not appreciated. 18:40 Back: CVA tenderness, is absent. 22:02 : Pelvic Exam: External exam: is normal, Speculum exam: moderate bleeding, os that is cp closed, discharge, bloody, the nurse was present for the exam. Vital Signs: 18:00 BP 138 / 99; Pulse 98; Resp 20; Temp 98.8; Pulse Ox 98% ; Weight 81.65 kg; Height 5 ft. jh5 0 in. (152.40 cm); Pain 10/10; 18:00 BP 122 / 81; Pulse 118; Pulse Ox 97% ; ko1 18:30 BP 122 / 81; Pulse 117; Pulse Ox 97% ; ko1 18:00 Body Mass Index 35.15 (81.65 kg, 152.40 cm) jh5 MDM: 18:07 Patient medically screened. cp 19:35 Patient medically screened. cp 22:00 Data reviewed: vital signs, nurses notes, lab test result(s), radiologic studies, CT cp scan, ultrasound. 22:00 Counseling: I had a detailed discussion with the patient and/or guardian regarding: the cp historical points, exam findings, and any diagnostic results supporting the discharge/admit diagnosis, lab results, radiology results, the need for outpatient follow up, an OB/Gyne specialist, to return to the emergency department if symptoms worsen or persist or if there are any questions or concerns that arise at home. Response to treatment: the patient's symptoms have markedly improved after treatment. Special discussion: Based on the patient's Hx, exam, and Dx evaluation, there is no indication for emergent surgery or inpatient Tx. It is understood by the patient/guardian that if the Sx's persist or worsen they need to return immediately for re-evaluation. 03/26 18:11 Order name: Urine Dipstick-Ancillary; Complete Time: 18:57 EDMS 03/26 18:57 Interpretation: Normal except: UBLD 3+; UPROT 2+. 03/26 18:16 Order name: Abo/rh Typing; Complete Time: 19:13 03/26 19:13 Interpretation: Reviewed. 03/26 18:16 Order name: Basic Metabolic Panel; Complete Time: 19:09 03/26 19:13 Interpretation: Normal except: BUN 6. 03/26 18:16 Order name: CBC with Diff; Complete Time: 18:57 03/26 18:57 Interpretation: Normal except: WBC 11.00; PLT 427; MPV 7.5. 03/26 18:16 Order name: Quantitative Hcg; Complete Time: 19:09 03/26 19:13 Interpretation: Reviewed. 03/26 18:16 Order name: Urine Microscopic Only; Complete Time: 19:10 03/26 19:10 Interpretation: URBC >50; Reviewed. 03/26 18:16 Order name: PT-INR; Complete Time: 18:57 03/26 18:16 Order name: Ptt, Activated; Complete Time: 18:57 03/26 18:16 Order name: US Transvaginal Ob; Complete Time: 19:52 03/26 19:53 Interpretation: Report reviewed. 03/26 18:18 Order name: Urine --Ancillary (enter results); Complete Time: 18:57 em1 03/26 19:54 Order name: CT Abd/Pelvis - IV Contrast Only; Complete Time: 20:50 03/26 18:16 Order name: IV Saline Lock; Complete Time: 18:20 cp 03/26 18:16 Order name: Labs collected and sent; Complete Time: 18:20 cp 03/26 18:16 Order name: NPO; Complete Time: 18:20 cp 03/26 18:16 Order name: Urine Dipstick-Ancillary (obtain specimen); Complete Time: 18:17 cp 03/26 18:16 Order name: Urine Test (obtain specimen); Complete Time: 18:17 cp Administered Medications: 18:23 Drug: NS 0.9% 1000 ml Route: IV; Rate: 1 bolus; Site: right antecubital; ko1 18:29 Drug: Zofran (Ondansetron) 4 mg Route: IVP; Site: right antecubital; ko1 18:31 Drug: morphine 2 mg Route: IVP; Infused Over: 4 mins; Site: right antecubital; ko1 22:11 Follow up: Response: No adverse reaction; RASS: Alert and Calm (0) aa9 20:05 Drug: morphine 2 mg Route: IVP; Infused Over: 4 mins; Site: right antecubital; aa9 22:11 Follow up: Response: No adverse reaction; RASS: Alert and Calm (0) aa9 22:46 Drug: Phenergan (promethazine) 25 mg Route: IM; Site: left vastus lateralis; aa9 22:46 Drug: morphine 4 mg Route: IVP; Infused Over: 4 mins; Site: right antecubital; aa9 Disposition: 03/27 00:01 Co-signature as Attending Physician, Hal Watters MD. rn Disposition Summary: 03/26/22 22:04 Discharge Ordered Location: Home cp Problem: new cp Symptoms: have improved cp Condition: Stable cp Diagnosis - Lower abdominal pain, unspecified cp - Nausea with vomiting, unspecified cp Followup: cp - With: Private Physician - When: 1 - 2 days - Reason: Recheck today's complaints Discharge Instructions: - Discharge Summary Sheet cp - Abdominal Pain, Adult cp - Nausea and Vomiting, Adult cp Forms: - Medication Reconciliation Form cp - Thank You Letter cp - Antibiotic Education cp - Prescription Opioid Use cp Prescriptions: - promethazine 25 mg Oral Tablet - take 1 tablet by ORAL route every 6 hours As needed; 20 tablet; Refills: 0, cp Product Selection Permitted - Tramadol 50 mg Oral Tablet - take 1 tablet by ORAL route every 8 hours as needed; 12 tablet; Refills: 0, cp Product Selection Permitted Signatures: Dispatcher [employer] EDMS Hal Watters MD MD rn Page, Corey, PA PA cp Rees, Jessica RN RN jh5 Lee Ann Alejo RN RN aa9 Lauryn Begum RN RN ko1 Corrections: (The following items were deleted from the chart) 03/26 19:38 19:10 Transvaginal Study (Probe)+US.RAD.BRZ ordered. EDMS EDMS
[2022-03-26] MEDS ORDERED: PROMETHAZINE INJ 25 MG/ML AMP ONE (22:18)
[2022-03-26] MEDS ORDERED: MORPHINE 4 MG/ML SYR ONE (22:18)
[2022-03-27 21:57] VITALS: BP 122/81; O2SAT 97
[2022-03-27 21:59] VITALS: TEMP 98.8
== END 2022-03-26 22:46 | disposition home or self-care (01) ==
LOC: ER 17:53
DX: R10.30 Lower abdominal pain, unspecified (principal); R11.2 Nausea with vomiting, unspecified
CPT/HCPCS: 36415; 74177; 76817; 80048; 81003; 81015; 81025; 84702; 85025; 85610; 85730; 86900; 86901; 96372; 96374; 96375; 99284; J2270; J2405; J2550; J7030; Q9967

== ENCOUNTER 2022-05-02 22:14 | Emergency (ER) | payer OTHER ==
--- OUTSIDE RECORDS SUMMARY | 2022-05-02 22:19 | XMS REPORT | Continuity of Care Document ---
:1995 Author Organization [facility] t Address [address] [place] [address] Care Team Providers Name Role Phone Asked, No Pcp Primary Care Physician Unavailable IZA DENSON Attending Clinician Unavailable Jessica AREVALO, Ania Attending Clinician DENIS CAR Attending Clinician Unavailable Stephy NAPPER RUNNER, Denis Alarcon Attending Clinician Carlos Hernandez DO Attending Clinician Gume GUERREROP, Akiko Attending Clinician Miguel PAC, John Olivo Attending Clinician Tricia Rice Attending Clinician MIGUEL, JOHN S Attending Clinician Unavailable Austin Cowart MD Attending Clinician Dani Kauffman DO Attending Clinician Austin Barrera Admitting Clinician Unavailable Payers Payer Name Policy Type Policy Number Effective Date Expiration Date S shobha SIDDIQI FROM [id number] 2020 [facility] 00:00:00 [employer] [place] [id number] 2019 00:00:00 Problems Condition Condition Condition Status Onset Resolution Last Treating Co mments Source Name Details Category Date Date Treatment Clinician Date Obesity Obesity Disease Active Univers (BMI (BMI 1-16 ity of 30-39.9) 30-39.9) 00:00: [place] 00 [facility] Branch Urinary Urinary Disease Active [...] Active U nivers 5-23 ity of 00:00: [address] Branch Family Family Disease Active Univers history [...] Branch butorpha DA Active [place] [facility] nol [facility]- [facility] [place] butorpha DA Active [place] tachycardic [facility] nol 2-04 [facility] 00:[facility] [place] BUTORPHA DRUG Active Palpitations Un carolann NOL [...] 00 l of [place] codeine DA Active [place] 2018- [facility] 1-19 [facility] 00:[facility]: [facility] [place] morphine DA Active U SWELLING 2018- [facility] 1-19 [facility] 00:[facility]: [facility] [place] codeine DA Active [place] nausea, [facility] headache -19 [facility] 00:[facility]: [facility] [place] tramadol DA Active [place] 2017- [facility] 2-31 [facility] 00:00: [facility] [place] tramadol DA Active MT CHEST PAIN 2017- [facility] 2-31 [facility] 00:[facility]: [facility] [place] ACETAMIN DRUG Active High SOB Univers OPHEN-CO 9-14 ity of DEINE 00:00: [place] 00 [facility] Branch Acetamin Propensi Active Shortness of Univers ophen-Co ty to Breath - ity of deine adverse 00:00: [place] reaction [...] COUGH 11-01 ity of MEDICINE 00:00: [place] [facility] Tussin Propensi Active Rash Univers Dm Cough ty to 11-01 ity of Medicine adverse 00:00: [place] reaction 00 Medical s Branch No Known DA Active U [facility] Allergie 3-14 [facility] s 00:00: [facility] [place] Family History Family Member Diagnosis Comments Start Date Stop Date Source Natural mother Menstrual problems [facility] Natural mother Diabetes [facility] Social History Social Habit Start Date Stop Date Quantity Comments Source Tobacco use and 2022-03-26 2022-03-26 Smokeless tobacco [facility] exposure 00:00:00 00:00:00 non-user Alcohol intake 2022-03-26 2022-03-26 Current drinker [facility] 00:00:00 00:00:00 of alcohol (finding) Exposure to 2022-02-16 2022-02-26 Not sure [facility] SARS-CoV-2 00:00:00 22:30:00 [facility] (event) [place] Alcohol Comment 2016-04-28 2016-04-28 social, weekly [facility] 00:00:00 00:00:00 Sex [birth year] [facility] 00:00:00 00:00:00 Smoking Status Start Date Stop Date Source Never smoked tobacco [facility] Medications Ordered Filled Start Stop Current Ordering Indication Dosage Frequency Signature Comments Components Source Medication Medication Date Date Medication? Clinician (SIG) Name Name ibuprofen 2021- No 800mg Q6H Take 800 Me odi (ADVIL) 200 9-29 09-[address] [facility] tablet 08:46: 00:00 mouth [facility] :00 every 6 l (six) hours as needed for mild pain. ibuprofen 2021- No 800mg Q6H Take 800 Me thodi (ADVIL) 200 9-29 09-[address] MG tablet 08:46: 00:00 mouth Hospit a 55 :00 every 6 l (six) hours as needed for mild pain. ibuprofen 2021- No 800mg Q6H Take 800 Me thodi (ADVIL) 200 9-29 09-[address] MG tablet 08:46: 00:00 mouth Hospit a 55 :00 every 6 l (six) hours as needed for mild pain. ibuprofen 2021- No 800mg Q6H Take 800 Me thodi (ADVIL) 200 9-29 09-[address] MG tablet 08:46: 00:00 mouth Hospit a 55 :00 every 6 l (six) hours as needed for mild pain. ibuprofen 2021- No 800mg Q6H Take 800 Me thodi (ADVIL) 200 9-29 09-[address] MG tablet 08:46: 00:00 mouth Hospit a 55 :00 every 6 l (six) hours as needed for mild pain. ibuprofen 0 Yes 800mg Q8H Take 1 Metho di (ADVIL) 800 9-[address] MG tablet 00:00: (800 mg Hospi ta 00 total) by l mouth every 8 (eight) hours as needed for mild pain. ondansetron 0 Yes 4mg Q8H Take 1 Meth shmair ODT 9-29 tablet (4 st (ZOFRAN-ODT 00:00: mg total) H ospita ) 4 MG 00 by mouth l disintegrat every 8 ing tablet (eight) hours as needed for nausea or vomiting. ibuprofen 2021-0 Yes 800mg Q8H Take 1 Metho di (ADVIL) 800 9-[address] MG tablet 00:00: (800 mg Hospi ta 00 total) by l mouth every 8 (eight) hours as needed for mild pain. ondansetron 2021-0 Yes 4mg Q8H Take 1 Meth shamir ODT 9-29 tablet (4 st (ZOFRAN-ODT 00:00: mg total) H ospita ) 4 MG 00 by mouth l disintegrat every 8 ing tablet (eight) hours as needed for nausea or vomiting. ibuprofen 2021-0 Yes 800mg Q8H Take 1 Metho di (ADVIL) 800 9-[address] MG tablet 00:00: (800 mg Hospi ta 00 total) by l mouth every 8 (eight) hours as needed for mild pain. ondansetron 2021-0 Yes 4mg Q8H Take 1 Meth shamir ODT 9-29 tablet (4 st (ZOFRAN-ODT 00:00: mg total) H ospita ) 4 MG 00 by mouth l disintegrat every 8 ing tablet (eight) hours as needed for nausea or vomiting. ibuprofen 2021-0 Yes 800mg Q8H Take 1 Metho di (ADVIL) 800 9-[address] MG tablet 00:00: (800 mg Hospi ta 00 total) by l mouth every 8 (eight) hours as needed for mild pain. ondansetron 0 Yes 4mg Q8H Take 1 Meth shamir ODT 9-29 tablet (4 st (ZOFRAN-ODT 00:00: mg total) H ospita ) 4 MG 00 by mouth l disintegrat every 8 ing tablet (eight) hours as needed for nausea or vomiting. ibuprofen 0 Yes 800mg Q8H Take 1 Metho di (ADVIL) 800 9-[address] MG tablet 00:00: (800 mg Hospi ta 00 total) by l mouth every 8 (eight) hours as needed for mild pain. ondansetron 0 Yes 4mg Q8H Take 1 Meth shamir ODT 9-29 tablet (4 st (ZOFRAN-ODT 00:00: mg total) H ospita ) 4 MG 00 by mouth l disintegrat every 8 ing tablet (eight) hours as needed for nausea or vomiting. famotidine 2021- No 20mg 20 mg, Univ ers (PEPCID AC) 02-27 Oral, ity of tablet 20 05:00: 05:00 [place]CE[place] :[place] dose, On Medical 02/27/22 Branch at 0000, RODRICK ALPRAZolam 2021- No 1mg 1 mg, Unive rs (XANAX) 02-27 Oral, ity of tablet 1 mg 05:00: 05:00 [place], On Medical 02/27/22 Branch at 0000, RODRICK ALPRAZolam Yes alprazolam U nivers 0.5 mg 02-26 0.5 mg ity of tablet 23:48: tablet [address] bupropion Yes bupropion Uni vers HBr 02-26 HBr ity of (APLENZIN 23:48: [place] ORAL) [address] [place] [address] FLUoxetine Yes fluoxetine U nivers 20 mg 02-26 20 mg ity of capsule 23:48: capsule [address] ciprofloxac 2021- No 500mg Q.5D Take 1 Me thodi in (CIPRO) 02-[address] 500 MG 00:00: 04:59 (500 mg Hospita tablet 00 :00 total) by l mouth 2 (two) times a day for 7 days. ciprofloxac 2021- No 500mg Q.5D Take 1 Me thodi in (CIPRO) 02-[address] 500 MG 00:00: 04:59 (500 mg Hospita tablet 00 :00 total) by l mouth 2 (two) times a day for 7 days. ciprofloxac 2021- No 500mg Q.5D Take 1 Me thodi in (CIPRO) 02-[address] 500 MG 00:00: 04:59 (500 mg Hospita tablet 00 :00 total) by l mouth 2 (two) times a day for 7 days. ciprofloxac 2021- No 500mg Q.5D Take 1 Me thodi in (CIPRO) 02-[address] 500 MG 00:00: 04:59 (500 mg Hospita tablet 00 :00 total) by l mouth 2 (two) times a day for 7 days. ciprofloxac 2021-2021- No 500mg Q.5D Take 1 Me thodi in (CIPRO) 02-[address] 500 MG 00:00: 04:59 (500 mg Hospita tablet 00 :00 total) by l mouth 2 (two) times a day for 7 days. phenazopyri 2021- No 200mg Q.[id number] Take 1 Methodi dine 02-[id number] (PYRIDIUM) 00:00: 04:59 3D (200 mg Hos radha 200 MG 00 :00 total) by l tablet mouth 3 (three) times a day for 3 days. phenazopyri 2021- No 200mg Q.[id number] Take 1 Methodi dine 02-[id number] (PYRIDIUM) 00:00: 04:59 3D (200 mg Hos radha 200 MG 00 :00 total) by l tablet mouth 3 (three) times a day for 3 days. phenazopyri 2021- No 200mg Q.[id number] Take 1 Methodi dine 02-[id number] (PYRIDIUM) 00:00: 04:59 3D (200 mg Hos radha 200 MG 00 :00 total) by l tablet mouth 3 (three) times a day for 3 days. phenazopyri 2021- No 200mg Q.[id number] Take 1 Methodi dine 02-[id number] (PYRIDIUM) 00:00: 04:59 3D (200 mg Hos radha 200 MG 00 :00 total) by l tablet mouth 3 (three) times a day for 3 days. phenazopyri 2021- No 200mg Q.[id number] Take 1 Methodi dine 02-[id number] (PYRIDIUM) 00:00: 04:59 3D (200 mg Hos radha 200 MG 00 :00 total) by l tablet mouth 3 (three) times a day for 3 days. ondansetron 2020- No 4mg 4 mg, Univ ers (ZOFRAN-ODT 12-31 Oral, ity of ) 09:15: 08:20 ONCE, 1 [place] disintegrat 00 :00 dose, Tue Med ical ing tablet 12/31/20 at Bran ch 4 mg 0415, Routine diphenhydrA 2020- No 25mg 25 mg, Uni vers MINE 12-31 Oral, ity of (BENADRYL) 09:15: 08:20 ONCE, 1 [place] tablet 25 00 :00 dose, [facility] Medic al mg 12/31/20 at Branch 0415, RODRICK ibuprofen 2020- No 800mg 800 mg, Uni vers (IBU) 12-31 Oral, ity of tablet 800 08:00: 07:17 ONCE, 1 [place] mg 00 :00 dose, Tu Medical 12/31/20 at Branch 0300, RODRICK methocarbam 2020- No 1000mg 1,000 mg, Univers oL 12-31 Oral, ONCE ity of (ROBAXIN) 08:00: 07:17 NOW, 1 [place] tablet 00 :00 dose, [facility] Medical 1,000 mg 12/31/20 at Branch 0300, RODRICK ibuprofen Yes [id number] 800mg Take 1 U nivers 800 mg 12-31 tablet by ity of tablet 00:00: mouth [place] 00 every 8 Medical (eight) Branch hours as needed for Pain (scale 4-6). cyclobenzap Yes [id number] 10mg Take 1 Univers rine 10 mg - tablet by ity of tablet 00:00: mouth 3 [place] 00 (three) Medical times Branch daily as needed for Muscle Spasms. ibuprofen 2021- No [id number] 800mg Take 1 Univers 800 mg 12-31 tablet by ity of tablet 00:00: 00:00 mouth [place] 00 :00 every 8 Medical (eight) Branch hours as needed for Pain (scale 4-6). cyclobenzap 2021- No [id number] 10mg Take 1 Univers rine 10 mg 12-31- tablet by ity of tablet 00:00: 00:00 [...] IV Medical Infusion, Branch ONCE, 1 dose, 11/20/20 at 1530, STAT metoclopram 2020- No 10mg 10 mg, Uni vers dio HCl 11-20 Slow IV ity of (REGLAN) 20:15: 19:18 Push, [place] injection 00 :00 ONCE, 1 Medical 10 mg dose, Wed Branch 11/20/20 at 1515, RODRICK ketorolac 2020- No 30mg 30 mg, Unive rs (TORADOL) 11-20 Slow IV ity of injection 20:15: 19:18 Push, [place] 30 mg 00 :00 ONCE, 1 Medical dose, Wed Branch 11/20/20 at 1515, RODRICK
Fa culty member approving Restricted medication : JOHN RIVERA diphenhydrA 2020- No 25mg 25 mg, Uni vers MINE 11-20 Slow IV ity of (BENADRYL) 20:15: 20:15 Push, [place] injection 00 :00 ONCE, 1 Medical 25 mg dose, Wed Branch 11/20/20 at 1515, STAT butalbital- Yes 1{tbl} 1 tablet, Univers acetaminoph 5-26 Oral, ity of en-caff 18:12: Q4HPR, [place] (ESGIC) 27 Starting Medical 50-325-40 Wed Branch mg tablet 1 11/20/20 at tablet 1312, Until Discontinu ed, Routine, zofran ketorolac 2020-0 Yes [id number] 10mg Take 1 Un carolann 10 mg 5-26 tablet by ity of tablet 00:00: mouth [place] 00 every 6 Medical (six) Branch hours as needed for Pain (scale 4-6). cyclobenzap 2020-0 Yes [id number] 10mg Take 1 Univers rine 10 mg 5-26 tablet by ity of tablet 00:00: mouth 3 [place] 00 (three) Medical times Branch daily. ketorolac 2020-0 Yes [id number] 10mg Take 1 Un carolann 10 mg 5-26 tablet by ity of tablet 00:00: mouth [place] 00 every 6 Medical (six) Branch hours as needed for Pain (scale 4-6). cyclobenzap Yes [id number] 10mg Take 1 Univers rine 10 mg 5-26 tablet by ity of tablet 00:00: mouth 3 [place] 00 (three) Medical times Branch daily. ketorolac 2021- No [id number] 10mg Take 1 U nivers 10 mg 5-26 09- tablet by ity of tablet 00:00: 00:00 mouth [place] 00 :00 every 6 Medical (six) Branch hours as needed for Pain (scale 4-6). cyclobenzap 2021- No [id number] 10mg Take 1 Univers rine 10 mg 5-26 - tablet by ity of tablet 00:00: 00:00 mouth 3 [place] 00 :00 (three) Medical times Branch daily. ketorolac 2020- No 30mg 30 mg, Unive rs (TORADOL) 09-27 Intramuscu ity of injection 03:45: 02:57 lar, ONCE, [place] 30 mg 00 :00 1 dose, Medical Elicia 09/26/20 Branch at 2245, RODRICK
Fa culty member approving Restricted medication : Tricia HERBERT diphenhydrA No 25mg 25 mg, Uni vers MINE 09-27 Intramuscu ity of (BENADRYL) 03:45: 02:58 lar, ONCE, [place] injection 00 :00 1 dose, Medical 25 mg Elicia 09/26/20 Branch at 2245, STAT proMETHazin No 25mg 25 mg, Uni vers e 09-27 Intramuscu ity of (PHENERGAN) 03:45: 02:58 lar, ONCE, [place] injection 00 :00 1 dose, Medical 25 mg Elicia 09/26/20 Branch at 2245, RODRICK ondansetron Yes [id number] 4mg Take 1 Univers (ZOFRAN 4-01 tablet by ity of ODT) 4 mg 00:00: mouth [place] disintegrat 00 every 8 Medic al ing tablet (eight) Branch hours as needed for Nausea and Vomiting (N/V). ondansetron 2020-0 Yes [id number] 4mg Take 1 Univers (ZOFRAN 4-01 tablet by ity of ODT) 4 mg 00:00: mouth [place] disintegrat 00 every 8 Medic al ing tablet (eight) Branch hours as needed for Nausea and Vomiting (N/V). ondansetron 0 Yes [id number] 4mg Take 1 Univers (ZOFRAN 4-01 tablet by ity of ODT) 4 mg 00:00: mouth [place] disintegrat 00 every 8 Medic al ing tablet (eight) Branch hours as needed for Nausea and Vomiting (N/V). ondansetron 0 2021- No [id number] 4mg Take 1 Univers (ZOFRAN 4-01 09-01 tablet by ity of ODT) 4 mg 00:00: 00:00 mouth [place] disintegrat 00 :00 every 8 Medic al ing tablet (eight) Branch hours as needed for Nausea and Vomiting (N/V). proMETHazin 0 Yes [id number] 25mg Take 1 Univers e 25 mg 2-09 tablet by ity of tablet 00:00: mouth [place] 00 every 6 Medical (six) Branch hours as needed for Nausea and Vomiting (N/V). proMETHazin 0 Yes [id number] 25mg Take 1 Univers e 25 mg 2-09 tablet by ity of tablet 00:00: mouth [place] 00 every 6 Medical (six) Branch hours as needed for Nausea and Vomiting (N/V). proMETHazin 0 Yes [id number] 25mg Take 1 Univers e 25 mg 2-09 tablet by ity of tablet 00:00: mouth [place] 00 every 6 Medical (six) Branch hours as needed for Nausea and Vomiting (N/V). proMETHazin 0 2021- No [id number] 25mg Take 1 Univers e 25 mg 2-09 09-01 tablet by ity of tablet 00:00: 00:00 mouth [place] 00 :00 every 6 Medical (six) Branch hours as needed for Nausea and Vomiting (N/V). ketorolac 2020- No 15mg 15 mg, Unive rs (TORADOL) 07-17 Slow IV ity of injection 13:30: 12:29 Push, [place] 15 mg 00 :00 ONCE, 1 Medical dose, Wed Branch 07/17/20 at 0730, RODRICK
Fa counts include 234 beds at the [facility] member approving Restricted medication : AUSTIN COWART NaCl 0.9% 2020- No 1000mL at 999 Uni vers (NS) IV 07-17- mL/hr, ity of infusion 13:30: 14:58 Intravenou [...] e Immunization Name Name Td 2011-06-28 Completed [facility] 00:00:00 [facility] Td 2011-06-28 Completed [facility] 00:00:00 [facility] Td 2011-06-28 Completed [facility] 00:00:00 [facility] Td 2011-06-28 Completed [facility] 00:00:00 [facility] Td 2011-06-28 Completed [facility] 00:00:00 [facility] Vital Signs Vital Name Observation Time Observation Value Comments Source Systolic blood 2022-02-27 05:31:00 130 mm[Hg] Univer sity of pressure [facility] Diastolic blood 2022-02-27 05:31:00 87 mm[Hg] Unive rsity of pressure [place] [facility] Heart rate 2022-02-27 05:31:00 98 /min Universi ty of [place] [facility] Respiratory rate 2022-02-27 05:31:00 18 /min Univ ersity of [place] [facility] Oxygen saturation in 2022-02-27 05:31:00 99 /min University of Arterial blood by [facility] Pulse oximetry Branch Body height 2022-02-27 03:38:00 152.4 cm Universi ty of [place] [facility] Body weight 2022-02-27 03:38:00 82.101 kg Universi ty of [place] [facility] BMI 2022-02-27 03:38:00 35.35 kg/m2 Universi ty [facility] [place] [facility] Body temperature 2022-02-27 03:36:00 36.28 [place] Univ ersity of [place] [facility] Systolic blood 2020-12-31 06:49:00 125 mm[Hg] Univer sity of pressure [place] [facility] Diastolic blood 2020-12-31 06:49:00 93 mm[Hg] Unive rsity of pressure [place] [facility] Heart rate 2020-12-31 06:49:00 104 /min Universi ty of [place] [facility] Body temperature 2020-12-31 06:49:00 36.83 [place] Univ ersity of [place] [facility] Respiratory rate 2020-12-31 06:49:00 15 /min Univ ersity of [place] [facility] Body height 2020-12-31 06:49:00 152.4 cm Universi ty [facility] [place] [facility] Body weight 2020-12-31 06:49:00 92.5 kg Universi ty of [place] [facility] BMI 2020-12-31 06:49:00 39.83 kg/m2 Universi ty [facility] [place] [facility] Oxygen saturation in 2020-12-31 06:49:00 99 /min University of Arterial blood by [facility] Pulse oximetry Branch Systolic blood 2020-12-31 06:49:00 125 mm[Hg] Univer sity of pressure [place] [facility] Diastolic blood 2020-12-31 06:49:00 93 mm[Hg] Unive rsity of pressure [place] [facility] Heart rate 2020-12-31 06:49:00 104 /min Universi ty [facility] [place] [facility] Body temperature 2020-12-31 06:49:00 36.83 [place] Univ ersity of [place] [facility] Respiratory rate 2020-12-31 06:49:00 15 /min Univ ersity of [place] [facility] Body height 2020-12-31 06:49:00 152.4 cm Universi ty [facility] [place] [facility] Body weight 2020-12-31 06:49:00 92.5 kg Universi ty of [place] [facility] BMI 2020-12-31 06:49:00 39.83 kg/m2 Universi ty of [place] [facility] Oxygen saturation in 2020-12-31 06:49:00 99 /min University of Arterial blood by [facility] Pulse oximetry Branch Systolic blood 2020-11-20 19:58:00 146 mm[Hg] Univer sity of pressure [place] [facility] Diastolic blood 2020-11-20 19:58:00 95 mm[Hg] Unive rsity of pressure [place] [facility] Heart rate 2020-11-20 19:58:00 98 /min Universi ty [facility] [place] [facility] Body temperature 2020-11-20 19:58:00 37.17 [place] Univ ersity of [place] [facility] Respiratory rate 2020-11-20 19:58:00 17 /min Univ ersity of [place] [facility] Oxygen saturation in 2020-11-20 19:58:00 100 /min University of Arterial blood by [facility] Pulse oximetry Branch Body weight 2020-11-20 16:43:00 92.534 kg Universi ty of [place] [facility] BMI 2020-11-20 16:43:00 39.84 kg/m2 Universi ty of [place] [facility] Systolic blood 2020-11-20 19:58:00 146 mm[Hg] Univer sity of pressure [place] [facility] Diastolic blood 2020-11-20 19:58:00 95 mm[Hg] Unive rsity of pressure [place] [facility] Heart rate 2020-11-20 19:58:00 98 /min Universi ty of [place] [facility] Body temperature 2020-11-20 19:58:00 37.17 [place] Univ ersity of [place] [facility] Respiratory rate 2020-11-20 19:58:00 17 /min Univ ersity of [place] [facility] Oxygen saturation in 2020-11-20 19:58:00 100 /min University of Arterial blood by [facility] Pulse oximetry Branch Body weight 2020-11-20 16:43:00 92.534 kg Universi ty [facility] [place] [facility] BMI 2020-11-20 16:43:00 39.84 kg/m2 Universi ty [facility] [place] [facility] Body height 2020-09-26 23:49:00 152.4 cm Universi ty [facility] [place] [facility] Body weight 2020-09-26 23:49:00 90.719 kg Universi ty [facility] [place] [facility] BMI 2020-09-26 23:49:00 39.06 kg/m2 Universi ty [facility] [place] [facility] Systolic blood 2020-09-26 23:45:00 103 mm[Hg] Univer sity of pressure [place] [facility] Diastolic blood 2020-09-26 23:45:00 62 mm[Hg] Unive rsity of pressure [place] [facility] Heart rate 2020-09-26 23:45:00 107 /min Universi ty [facility] [place] [facility] Body temperature 2020-09-26 23:45:00 36.61 [place] Univ ersity of [place] [facility] Respiratory rate 2020-09-26 23:45:00 18 /min Univ ersity of [place] [facility] Oxygen saturation in 2020-09-26 23:45:00 97 /min University of Arterial blood by [employer] Pulse oximetry Branch Body height 2020-09-26 23:49:00 152.4 cm Universi ty [facility] [place] [facility] Body weight 2020-09-26 23:49:00 90.719 kg Universi ty [facility] [place] [facility] BMI 2020-09-26 23:49:00 39.06 kg/m2 Universi ty [facility] [place] [facility] Systolic blood 2020-09-26 23:45:00 103 mm[Hg] Univer sity of pressure [place] [facility] Diastolic blood 2020-09-26 23:45:00 62 mm[Hg] Unive rsity of pressure [place] [facility] Heart rate 2020-09-26 23:45:00 107 /min Universi ty [facility] [place] [facility] Body temperature 2020-09-26 23:45:00 36.61 [place] Univ ersity of [place] [facility] Respiratory rate 2020-09-26 23:45:00 18 /min Univ ersity of [place] [facility] Oxygen saturation in 2020-09-26 23:45:00 97 /min University of Arterial blood by [employer] [facility]ott Pulse oximetry Branch Systolic blood 2020-07-17 14:00:00 112 mm[Hg] Univer sity of pressure [place] [facility] Diastolic blood 2020-07-17 14:00:00 65 mm[Hg] Unive rsity of pressure [place] [facility] Heart rate 2020-07-17 14:00:00 86 /min Universi ty of [place] [facility] Respiratory rate 2020-07-17 14:00:00 20 /min Univ ersity of [facility] Branch Oxygen saturation in 2020-07-17 14:00:00 100 /min University of Arterial blood by [facility] Pulse oximetry Branch Body temperature 2020-07-17 11:50:00 37.22 [place] Univ ersity of [place] [facility] [place] Body weight 2020-07-17 11:50:00 86.183 kg Universi ty of [place] [facility] [place] BMI 2020-07-17 11:50:00 37.11 kg/m2 Universi ty [facility] [place] [facility] Systolic blood 2020-07-17 14:00:00 112 mm[Hg] Univer sity of pressure [place] [facility] Diastolic blood 2020-07-17 14:00:00 65 mm[Hg] Unive rsity of pressure [place] [facility] Heart rate 2020-07-17 14:00:00 86 /min Universi ty [facility] [place] [facility] Respiratory rate 2020-07-17 14:00:00 20 /min Univ ersity of [place] [facility] Oxygen saturation in 2020-07-17 14:00:00 100 /min University of Arterial blood by [facility] Pulse oximetry Branch Body temperature 2020-07-17 11:50:00 37.22 [place] [facility] ersity of [facility] Body weight 2020-07-17 11:50:00 86.183 kg Universi ty of [place] [facility] [place] BMI 2020-07-17 11:50:00 37.11 kg/m2 Universi ty [facility] Branch Systolic blood 2022-03-26 13:44:00 139 mm[Hg] Method ist [facility] pressure Diastolic blood 2022-03-26 13:44:00 83 mm[Hg] [facility] pressure Heart rate 2022-03-26 13:44:00 101 /min [facility] Respiratory rate 2022-03-26 13:44:00 18 /min [facility] 2022-03-26 13:44:00 100 /min [facility] Arterial blood by Pulse oximetry Body temperature 2022-03-26 12:32:00 36.72 [place] [facility] Body height 2022-03-26 12:32:00 157.5 cm [facility] Body weight 2022-03-26 12:32:00 85.276 kg [facility] BMI 2022-03-26 12:32:00 34.39 kg/m2 [facility] Procedures Procedure Date / Time Performing Clinician Source Performed URINALYSIS 2022-03-26 13:06:00 [facility] HCG QUALITATIVE, URINE 2022-03-26 13:06:00 [facility] SCREEN URINALYSIS 2022-03-26 13:06:00 [facility] HCG QUALITATIVE, URINE 2022-03-26 13:06:00 [facility] SCREEN CBC WITH PLATELET AND 2022-03-26 12:46:00 [facility] DIFFERENTIAL COMPREHENSIVE METABOLIC 2022-03-26 12:46:00 [facility] PANEL ESTIMATED GFR 2022-03-26 12:46:00 [facility] HC COMPLETE BLD COUNT 2022-03-26 12:46:00 [facility] W/AUTO DIFF POCT TEST 2022-02-27 04:56:00 Denis Car [facility] LIPASE 2022-02-27 04:04:00 Denis Car [facility] TROPONIN I 2022-02-27 04:04:00 Denis Car [facility] THYROID STIMULATING 2022-02-27 04:04:00 Denis Car [facility] HORMONE [facility] COMP. METABOLIC PANEL 2022-02-27 04:04:00 Denis Car [facility] ([id number]) [facility] CBC WITH DIFF 2022-02-27 04:04:00 Denis Car [facility] URINALYSIS 2022-02-27 03:56:00 Denis Car [facility] URINE DRUG (IMMUNOASSAY) 2022-02-27 03:56:00 Denis [facility] DRUG Medical Bra nch SCREEN W/O REFLEX NOTICE OF PRIVACY 2022-02-27 03:05:57 Doctor Unassigned, No [facility] PRACTICES Name Medical Branch CONSENT/REFUSAL FOR 2022-02-27 03:04:00 [facility], [facility] Name Medical Branch COMPREHENSIVE METABOLIC 2022-02-18 05:17:00 Carlos Hernandez [facility] PANEL ESTIMATED GFR 2022-02-18 05:17:00 Carlos Hernandez spital COMPREHENSIVE METABOLIC 2022-02-18 04:38:00 Carlos Hernandez [facility] PANEL ESTIMATED GFR 2022-02-18 04:38:[address] ABDOMEN PELVIS WO 2022-02-18 04:17:35 Carlos Hernandez [facility] CONTRAST URINE CULTURE 2022-02-18 04:00:00 Carlos Hernandez spital HC COMPLETE BLD COUNT 2022-02-18 04:00:00 Carlos Hernandez [facility] W/AUTO DIFF COMPREHENSIVE METABOLIC 2022-02-18 04:00:00 Carols Hernandez [facility] PANEL ESTIMATED GFR 2022-02-18 04:00:00 Carlos Hernandez spital HCG QUALITATIVE, URINE 2022-02-18 02:50:00 Carlos Hernandez [facility] SCREEN URINALYSIS 2022-02-18 02:50:00 Carlos Hernandez spital RAPID STREP SCREEN FOR 2020-12-31 07:13:00 Akiko Dunaway [facility] GROUP A Medical Branch NOTICE OF PRIVACY 2020-12-31 06:34:54 Doctor Unassigned, No [facility] PRACTICES Name Medical Branch CONSENT/REFUSAL FOR 2020-12-31 06:34:35 Doctor [facility]igned, [facility] Name Medical Branch CT HEAD WO CONTRAST 2020-11-20 18:18:22 John Rivera [facility] POCT TEST 2020-11-20 17:50:00 John Rivera [facility] BASIC METABOLIC PANEL 2020-11-20 17:24:00 John Rivera [facility] (NA, K, CL, CO2, Medical Branch GLUCOSE, BUN, CREATININE, CA) CBC WITH DIFF 2020-11-20 17:24:00 John Rivera [facility] CONSENT/REFUSAL FOR 2020-11-20 16:36:59 Doctor Unassigned, No [facility] [place] [facility] POCT TEST 2020-09-27 02:56:00 Tricia Herbert [facility] ASSIGNMENT OF BENEFITS 2020-09-27 01:35:31 Doctor Unassigned, No [facility] CONSENT/REFUSAL FOR 2020-09-26 23:26:24 Doctor Unassigned, No [facility] [place] [facility] TREATMENT [facility] URINALYSIS 2020-07-17 14:08:00 Austin Cowart [facility] POCT TEST 2020-07-17 14:08:00 Austin Cowart [facility] CBC WITH DIFF 2020-07-17 12:25:00 Austin Cowart [facility] NOTICE OF PRIVACY 2020-07-17 11:48:39 Doctor Unassigned, No [facility] CONSENT/REFUSAL FOR 2020-07-17 11:44:41 Doctor Unassigned, No [facility] [place] [facility] Plan of Care Planned Activity Planned Date Details Comments Source Future Scheduled 2022-04-29 [facility] 09:57:18 VACCINES (1 of 3 - 3-dose series) [code = HEPATITIS B VACCINES (1 of 3 - 3-dose series)] Future Scheduled 2022-04-29 [facility] (#1) [code = COVID-19 VACCINE (#1)] Future Scheduled 2022-04-29 Hepatitis C [facility] 09:57:18 screening (procedure) [code = 882635985] Future Scheduled 2022-04-29 [facility] Test 09:57:18 malignant neoplasm of cervix (procedure) [code = 669013835] Future Scheduled 2022-04-29 INFLUENZA VACCINE [facility] 09:57:18 [code = INFLUENZA VACCINE] Future Scheduled 2022-03-26 [facility] B [facility] 18:56:00 VACCINES (1 of 3 - 3-dose series) [code = HEPATITIS B VACCINES (1 of 3 - 3-dose series)] Future Scheduled 2022-03-26 [facility] 18:[facility]:00 (#1) [code = COVID-19 VACCINE (#1)] Future Scheduled 2022-03-26 [facility]atitis C [facility] 18:56:00 screening (procedure) [code = 671679665] Future Scheduled 2022-03-26 [facility] Test 18:56:00 malignant neoplasm of cervix (procedure) [code = 472064704] Future Scheduled 2022-03-26 INFLUENZA VACCINE [facility] Test 18:56:00 [code = INFLUENZA VACCINE] Future Scheduled 2022-03-26 [facility]ITIS B [facility] 18:56:00 VACCINES (1 of 3 - 3-dose series) [code = HEPATITIS B VACCINES (1 of 3 - 3-dose series)] Future Scheduled 2022-03-26 [facility] 18:56:00 (#1) [code = COVID-19 VACCINE (#1)] Future Scheduled 2022-03-26 [facility] 18:56:00 screening (procedure) [code = 219446963] Future Scheduled 2022-03-26 [facility] Test 18:56:00 malignant neoplasm of cervix (procedure) [code = 926154005] Future Scheduled 2022-03-26 INFLUENZA VACCINE [facility] Test 18:56:00 [code = INFLUENZA VACCINE] Future Scheduled 2022-03-26 [facility]IS [facility] 18:56:00 VACCINES (1 of 3 - 3-dose series) [code = HEPATITIS B VACCINES (1 of 3 - 3-dose series)] Future Scheduled 2022-03-26 [facility] 18:56:00 (#1) [code = COVID-19 VACCINE (#1)] Future Scheduled 2022-03-26 [facility]atitis [facility] 18:56:00 screening (procedure) [code = 327386904] Future Scheduled 2022-03-26 [facility] Test 18:56:00 malignant neoplasm of cervix (procedure) [code = 669847614] Future Scheduled 2022-03-26 INFLUENZA VACCINE [facility] Test 18:56:00 [code = INFLUENZA VACCINE] Future Scheduled 2022-03-26 HE[facility]ITIS B [facility] 08:33:14 VACCINES (1 of 3 - 3-dose series) [code = HEPATITIS B VACCINES (1 of 3 - 3-dose series)] Future Scheduled 2022-03-26 COVID-[address] [facility] Test 08:33:14 (#1) [code = COVID-19 VACCINE (#1)] Future Scheduled 2022-03-26 [facility] 08:33:14 screening (procedure) [code = 845522288] Future Scheduled 2022-03-26 [facility] Test 08:33:14 malignant neoplasm of cervix (procedure) [code = 487912791] Future Scheduled 2022-03-26 [facility]ZA VACCINE [facility] Test 08:33:14 [code = INFLUENZA VACCINE] Future Scheduled COVID-[address] [facility] Test (1) [code = COVID-19 VACCINE (1)] Future Scheduled Hepatitis [facility] screening (procedure) [code = 084278455] Future Scheduled [facility] Test malignant neoplasm of cervix (procedure) [code = 436740776] Future Scheduled INFLUENZA VACCINE [facility] Test [code = INFLUENZA VACCINE] Encounters Start End Encounter Admission Attending Care Care Encounter Source Date/Time Date/Time Type Type Clinicians Facility Department ID 2021-04-28 Emergency [facility] [id number] Univers 06:08:31 ity [facility] 2021-04-27 Emergency [facility] [id number] Univers 21:27:31 ity [facility] 2021-04-27 Emergency [facility] [id number] Univers 10:13:04 ity [facility] 2021-04-26 Emergency [facility] [id number] [facility] 2022-04-22 Emergency E AZNAUROVA-A MHBL MHBL 7500 MHBL 08:53:00 14:18:00 IZA LEBLANC 2022-03-26 2022-03-26 Emergency Sammy 1.2.840.1 [id number] Methodi 07:24:00 08:46:[address] 3.430.2.7 Hospit a .3.175236 l .8 2022-03-26 2022-03-26 Emergency Sammy 1.2.840.1 [id number] Methodi 07:24:00 08:46:[address] 3.430.2.7 Hospit a .3.424630 l .8 2022-03-26 2022-03-26 Travel 1.2.840.1 1.2.613.409 6083 [id number] Methodi 00:00:00 00:00:[address] 3.430.2.7 0.2.7.3.698 Ho spita .3.513616 084.8 l .8 2022-03-26 2022-03-26 Travel 1.2.840.1 1.2.490.845 3605 529236 Methodi 00:00:00 00:00:[address] 3.430.2.7 0.2.7.3.698 Ho spita .3.063123 084.8 l .8 2022-02-26 2022-02-27 Emergency [facility] [id number] [facility] 22:26:00 00:44:00 DENIS khan [facility] 2022-02-26 2022-02-[address] [facility] 1.2.143.908 [id number] [facility] 22:26:00 00:44:00 Denis HUMPHREYS 350.1.13.10 ity of [place] 4.2.7.2.686 [facility] [id number] [place] [address] Branch 2022-02-17 2022-02-18 Emergency Nuszen, 1.2.840.1 [id number] Methodi 21:45:00 01:49:[address] 3.430.2.7 Hospit a .3.478948 l .8 2022-02-17 2022-02-18 Emergency Nuszen, 1.2.840.1 [id number] Methodi 21:45:00 01:49:[address]1466.1.[address] 3.430.2.7 Hospit a .3.973456 l .8 2022-02-17 2022-02-17 Travel 1.2.840.1 1.2.267.946 7271 025164 Methodi 00:00:00 00:00:[address] 3.430.2.7 0.2.7.3.698 Ho spita .3.996969 084.8 l .8 2022-02-17 2022-02-17 Travel 1.2.840.1 1.2.781.392 5012 591033 Methodi 00:00:00 00:00:[address] 3.430.2.7 0.2.7.3.698 Ho spita .3.424998 084.8 l .8 2020-12-31 2020-12-31 Emergency Dunaway, [facility] 1.2.840.114 [id number] Univers 02:02:00 03:26:00 Akiko Milfay 350.1.13.10 i ty of [place] 4.2.7.2.686 [facility] [phone] [place] [address] Branch 2020-12-31 2020-12-31 Emergency Dunaway, [facility] 1.2.840.114 [id number] 02:02:00 03:26:00 Akiko Milfay 350.1.13.10 [place] [address] [place] [address] [id number] 084 2020-11-20 2020-11-20 [facility] 1.2.617.941 [id number] Univers 11:47:00 15:01:00 John Humphreys 350.1.13.10 i ty of [place] 4.2.7.2.686 [facility] [id number] [address] 2020-11-20 2020-11-20 Emergency Miguel [facility] 1.2.482.535 1223 7828 11:47:00 15:01:00 John Humphreys 350.1.13.10 [place] 4.2.7.2.686 [place] [id number] [employer] 2020-09-26 2020-09-26 Emergency Tricia Herbert [facility] 1.2.840.114 [id number] Univers 18:51:00 22:39:00 Lluvia Roberto 350.1.13.10 i ty of [place] 4.2.7.2.686 [facility] [id number] [address] 2020-09-26 2020-09-26 Emergency Tricia Herbert [facility] 1.2.840.114 [id number] 18:51:00 22:39:00 Lluvia Roberto 350.1.13.10 [place] 4.2.7.2.686 [place] [id number] 4 2020-08-06 2020-08-06 Emergency Kami RIVERA [facility] ERT [id number] Univers 10:13:00 12:49:00 JOHN khan [facility] 2020-08-01 2020-08-03 Inpatient [facility] [id number] [facility] 09:14:00 03:39:32 [facility] 2020-07-17 2020-07-17 Emergency Austin Cowart [facility] 1.2.840 .114 [id number] Univers 05:53:00 08:59:00 Dani Kauffman 350.1.13.10 ity of [place] 4.2.7.2.686 [facility] [id number] [address] 2020-07-17 2020-07-17 Emergency Austin Cowart [facility] 1.2.840 .114 [id number] 05:53:00 08:59:00 Dani Kauffman 350.1.13.10 [place] 4.2.7.2.686 [place] [id number] 084 Results Test Description Test Time Test Comments Results Result Comments Source THYROID STIMULATING HORMONE 2022-02-27 05:23:28 Test Item Value Reference Range Interpretation Comme nts TSH (test code = 2872099737) See_Comment [Automated message] The system which generated this result transmitted ref erence range: 0.45 - 4.70 mIU/L. T he reference range was not used to interpret this result as nakia l/abnormal. Lab Interpretation (test code = Normal 66684-4) [facility] [id number] 05:05:05 Test Item Value Reference Interpretation Comments Range TROPONIN I (test 0.006 ng/mL See_Comment [Automated code = 4811978433) message] The system which generated this result [...] biotin. Lab Interpretation Normal (test code = 29955-4) [facility] [id number] 04:56:00 Test Item Value Reference Range Interpretation Comments POCT PREG (test code = 1605) negative Lab Interpretation (test code = Normal 95704-1) [facility] (10736)2022-02-27 04:46:44 Test Item Value Reference Range Interpretation Comments NA (test code = 137 mmol/L 135-145 6649098512) K (test code = 3.7 mmol/L 3.5-5 6042026944) CL (test code = 102 mmol/L 98-108 8766803469) CO2 TOTAL (test code 26 mmol/L 23-31 = 0746891082) AGAP (test code = 2-16 3323512790) BUN (test code = 8 mg/dL 7-23 0656439018) GLUCOSE (test code = 96 mg/dL 70-110 2040004245) CREATININE (test code 0.77 mg/dL 0.5-1.04 = 6194971571) TOTAL BILI (test code 0.4 mg/dL 0.1-1.1 = 9217915278) CALCIUM (test code = 9.2 mg/dL 8.6-10.6 0890902059) T PROTEIN (test code 7.2 g/dL 6.3-8.2 = 9177593796) ALBUMIN (test code = 4.5 g/dL 3.5-5 6437267159) ALK PHOS (test code = 58 U/L 34-122 7663043499) ALTv (test code = 30 U/L 5-35 1742-6) AST(SGOT) (test code 17 U/L 13-40 = 5411706714) eGFR (test code = mL/min/1.73m2 0635956255) TOBI (test code = TOBI) Association of [...] or urine or abnormalities in imaging tests). [facility] 04:46:44 Test Item Value Reference Range Interpretation Comments LIPASE (test code = 2417246730) 91 U/L 0-220 Lab Interpretation (test code = Normal 49099-5) [facility] WITH [id number] 04:33:23 Test Item Value Reference Range Interpretation Comments WBC (test code = See_Comment [Automated 3690-2) message] The sy stem which generated this result transmitted reference range : 4.30 - 11.10 10*3/?L. The reference range was not used to interpret this result as normal/abnormal . RBC (test code = See_Comment [Automated 889-8) message] The sy stem which generated this [...] RDW-SD (test code = 41.0 fL 39-49.9 69269-5) RDW-CV (test code = 13.1 % 12-15.5 788-0) PLT (test code = See_Comment H [Automated 777-3) message] The sy stem which generated this result transmitted reference range : 166 - 358 10*3/ ?L. The reference r shira was not used to interpret this result as normal/abnormal . MPV (test code = 10.1 fL 9.5-12.9 68110-9) NRBC/100 WBC (test See_Comment [Automat ed code = 9707715634) message] The system which generated this result transmitted reference range : 0.0 - 10.0 /100 WBCs. The refer ence range was not u sed to interpret th is result as normal/abnormal . NRBC x10^3 (test code See_Comment [Auto mated = 1185337070) message] The s ystem which generated this result transmitted reference range : 10*3/?L. The reference range was not used to interpret this result as normal/abnormal . GRAN MAT (NEUT) % 52.2 % (test code = 770-8) IMM GRAN % (test code 0.30 % = 0620856966) LYMPH % (test code = 37.9 % 736-9) MONO % (test code = 5.9 % 5905-5) EOS % (test code = 3.1 % 713-8) BASO % (test code = 0.6 % 706-2) GRAN MAT x10^3(ANC) 4.83 10*3/uL 1.88-7.09 (test code = 7414639969) IMM GRAN x10^3 (test 0.03 10*3/uL 0-0.06 code = 1366776871) LYMPH x10^3 (test code 3.51 10*3/uL 1.32-3.29 H = 731-0) MONO x10^3 (test code 0.55 10*3/uL 0.33-0.92 = 742-7) EOS x10^3 (test code = 0.29 10*3/uL 0.03-0.39 711-2) BASO x10^3 (test code 0.06 10*3/uL 0.01-0.07 = 704-7) Lab Interpretation Abnormal (test code = 91552-3) [facility] STREP SCREEN FOR GROUP [id number] 07:59:00 Test Item Value Reference Range Interpretation Comments Streptococcus pyogenes (group A) Negative Negative antigen (test code = 87923-1) Lab Interpretation (test code = Normal 07562-1) [facility] WO [id number] 18:21:18No acute findings. HISTORY:Head trauma, mod-severe hit left head, near syncope, persistentsevere headache and dizziness TECHNIQUE: Noncontrast head CT was performed. COMPARISON:None FINDINGS: The ventricles and sulci are appropriate for patient's age. There is no midline shift. The basal cisterns are preserved. No largevascular territory infarction, intracranial hemorrhage or mass effect isseen. The extracranial tissues demonstrate no acute findings. Mimb, Radiant Results Inft User - 11/20/2020 1:22PM CDT HISTORY:Head trauma, mod-severe hit left head, near syncope, persistentsevere headache and dizziness TECHNIQUE: Noncontrast head CT was performed.COMPARISON:NoneFINDINGS:The ventricles and sulci are appropriate for patient's age.There is no midline shift. The basal cisterns are preserved. No largevascular territory infarction, intracranial hemorrhage or mass effect isseen.The extracranial tissues demonstrate no acute findings.IMPRESSIONNo acute findings.[facility] (NA, K, CL, CO2, GLUCOSE, BUN, CREATININE, CA)2020-11-20 18:00:40 Test Item Value Reference Range Interpretation Comments NA (test code = 137 mmol/L 135-145 1187115217) K (test code = 4.2 mmol/L 3.5-5.0 2063319367) CL (test code = 104 mmol/L 98-108 1552029742) CO2 TOTAL (test code = 22 mmol/L 23-31 L 0777590159) AGAP (test code = 2-16 4768683883) BUN (test code = 10 mg/dL 7-23 0921858916) GLUCOSE (test code = 150 mg/dL 70-110 H 4821044957) CREATININE (test code = 0.59 mg/dL 0.50-1.04 4677705210) CALCIUM (test code = 9.5 mg/dL 8.6-10.6 5304393299) eGFR (test code = mL/min/1.73m2 4261819124) TOBI (test code = TOBI) Association of [...] tests). Lab Interpretation Abnormal (test code = 80186-2) [facility] CenterPO[facility] [id number] 17:50:00 Test Item Value Reference Range Interpretation Comments POCT PREG (test code = 1605) negative On board controls acceptable with present C Line (test code = 3574) POCT PREG LOT # (test code = 3575) [id number] POCT PREG TEST DATE (test 05/27/2022 code = 3576) Lab Interpretation (test code = Normal 66829-3) [facility] WITH [id number] 17:32:17 Test Item Value Reference Range Interpretation Comments WBC (test code = See_Comment [Automated 0377-2) message] The sy stem which generated this [...] RDW-SD (test code = 40.4 fL 39.0-49.9 12515-2) RDW-CV (test code = 13.0 % 12.0-15.5 788-0) PLT (test code = See_Comment H [Automated 777-3) message] The sy stem which generated this result transmitted reference range : 166 - 358 10*3/ ?L. The reference r shira was not used to interpret this result as normal/abnormal . MPV (test code = 9.5 fL 9.5-12.9 48960-4) NRBC/100 WBC (test See_Comment [Automat ed code = 8476683989) message] The system which generated this result transmitted reference range : 0.0 - 10.0 /100 WBCs. The refer ence range was not u sed to interpret th is result as normal/abnormal . NRBC x10^3 (test code <0.01 See_Comment [Auto mated = 6628696119) message] The s ystem which generated this result transmitted reference range : 10*3/?L. The reference range was not used to interpret this result as normal/abnormal . GRAN MAT (NEUT) % 83.0 % (test code = 770-8) IMM GRAN % (test code 0.70 % = 2368507765) LYMPH % (test code = 12.5 % 736-9) MONO % (test code = 3.7 % 5905-5) EOS % (test code = 0.0 % 713-8) BASO % (test code = 0.1 % 706-2) GRAN MAT x10^3(ANC) 8.41 10*3/uL 1.88-7.09 H (test code = 9304155091) IMM GRAN x10^3 (test 0.07 10*3/uL 0.00-0.06 H code = 1910709109) LYMPH x10^3 (test code 1.26 10*3/uL 1.32-3.29 L = 731-0) MONO x10^3 (test code 0.37 10*3/uL 0.33-0.92 = 742-7) EOS x10^3 (test code = <0.03 0.03-0.39 L 711-2) BASO x10^3 (test code <0.03 0.01-0.07 = 704-7) Lab Interpretation Abnormal (test code = 21231-3) [facility] [id number] 02:56:00 Test Item Value Reference Range Interpretation Comments POCT PREG (test code = 1605) negative On board controls acceptable with present C Line (test code = 3574) POCT PREG LOT # (test code = 3575) [id number] POCT PREG TEST DATE (test 02/25/2022 code = 3576) Lab Interpretation (test code = Normal 50413-7) [facility] CenterCHLAMYDIA GC DNA BY [id number] 14:24:00 Test Item Value Reference Range Interpretation Comments C. TRACHOMATIS DNA BY Negative Negative PCR (test code = CHLAMTDNA) N. GONORRHOEAE DNA BY Negative Negative Perfor med At: ST PCR (test code = [facility] Jacob CORDERO) [address] [place], [place] [id number] Rodrigues MD Ph:[phone] - DUP AB/PEL/SC/[id number] 14:12:00 [facility] : 1995 Sex: F Patient Name: FATMATA DEGROOT Unit No: [id number] EXAMS: CPT CODE: [id number] DUP AB/PEL/SC/LTD 26560 PELVIC ULTRASOUND, 08/01/2020: COMPARISON: CT pelvis dated August 01, 2020 CLINICAL HISTORY: pain TECHNIQUE: Transabdominal and endovaginal scanning was performed. FINDINGS: The uterus measures 9.4 x 4.7 x4.6 cm. The endometrial stripe measures 6 mm. [...] Alexandra Elder RDMS Probe: Trnscrbd D/ (1412) [id number] Orig Print D/T: S: 08/01/2020 (1415) The [facility] NAME: FATMATA DEGROOT Radiology Department PHYS: Winter Landaverde MD [address] : 1995 AGE: 24 SEX: F [place], [place] [address] LOC: SANDY PHONE #: [phone] EXAM DATE: 08/01/2020 STATUS: REG ER FAX #: [phone] RAD NO: Page 1 Signed Report Patient Name: FATMATA DEGROOT Unit No: [id number] EXAMS: CPT CODE: [id number] DUP AB/PEL/SC/LTD 58379 (Continued) The [facility] NAME: FATMATA DEGROOT Radiology Department PHYS: Winter Landaverde MD [address] : 1995 AGE: 24 SEX: F [place], [place] [address]QJZI NO: [id number] LOC: F.ERS PHONE #: [phone] EXAM DATE: 08/01/2020 STATUS: REG ER FAX #: RAD NO: Page 2 Signed Report- US TRANSVAGINAL W/[id number] 14:12:00[facility] : 1995 Sex: F Patient Name: FATMATA DEGROOT Unit No: [id number] EXAMS: CPT CODE: [id number] US TRANSVAGINAL W/PELVIS 75494 PELVIC ULTRASOUND, 08/01/2020: COMPARISON: CT pelvis dated [...] size. Doppler flow is visualized in the rightovary. The left ovary measures 3.4 x 1.9 x 1.4 cm and contains small subcentimeter follicles. Doppler flow is demonstrated in the left ovary. No free pelvic fluid noted. IMPRESSION: No acute abnormality identified. Bilateral ovarian follicles. at 1412 Reported and signed by: Joe Agudelo MD CC: Winter Mccollum MD; Austin Barrera Technologist: Alexandra Elder [facility] Probe: [id number] Trnscrbd D/ (1412) t.[id number].AJ13 Orig Print D/T: S: 08/01/2020 (1415) The [facility] NAME: FATMATA DEGROOT Radiology Department PHYS: Winter Landaverde MD [address] : 1995 AGE: 24 SEX: F [place] [address] LOC: ShaylaERS PHONE #: [phone] EXAM DATE: 08/01/2020 STATUS: REG ER FAX #: [phone] RAD NO: Page 1 Signed Report Patient Name: FATMATA DGEROOT Unit No: [id number] EXAMS: CPT CODE:[id number] US TRANSVAGINAL W/PELVIS 86900 (Continued) The [facility] NAME: FATMATA DEGROOT Radiology Department PHYS: Winter Landaverde MD [address] : 1995 AGE: 24 SEX: F [place] [address] LOC: Saran.ERS PHONE #: [phone] EXAM DATE: 08/01/2020 STATUS: REG ER FAX #: [phone] RAD NO: Page 2 Signed Report- US PELVIS [id number] 14:12:[address] [facility] : 1995 Sex: F Patient Name: FATMATA DEGROOT Unit No: [id number] EXAMS: CPT CODE: [id number] US PELVIS COMPLETE [id number] PELVIC ULTRASOUND, 08/01/2020: COMPARISON: CT pelvis dated [...] Orig Print D/T: S: 08/01/2020 (1415) [facility] NAME: FATMATA DEGROOT Radiology Department PHYS: Winter Landaverde MD [address] : 1995 AGE: 24 SEX: F [place], [place] [address] : ShaylaLINA PHONE #: [phone] EXAM DATE: 08/01/2020 STATUS: REG ER FAX #: [phone] RAD NO: Page 1 Signed Report Patient Name: FATMATA DEGROOT Unit No: [id number] EXAMS: CPT CODE: [id number] US PELVIS COMPLETE 37907 (Continued) [facility] NAME: FATMATA DEGROOT Radiology Department PHYS: Winter Landaverde MD [address] : 1995 AGE: 24 SEX: F [place], [place] [address] LOC: SANDY PHONE #: [phone] EXAM DATE: 08/01/2020 STATUS: REG ER FAX #: RAD NO: Page 2 Signed Report- CT ABD PELVIS W/O [id number] 10:58:00[facility] : 1995 Sex: F Patient Name: FATMATA DEGROOT Unit No: [id number] EXAMS: CPT CODE: [id number] CT ABD PELVIS W/O CONT 48573 CT ABDOMEN/CT STONE SURVEY WITHOUT CONTRAST, 08/01/2020 [...] 6 mm right middle lobe pulmonary nodule.[facility] NAME: FATMATA DEGROOT Radiology Department PHYS: ELLIS Winter Wilkins MD [address] : 1995 AGE: 24 SEX: F [place], [place] [address] LOC: SANDY PHONE #: [phone] EXAM DATE: 08/01/2020 STATUS: REG ER FAX #: [phone] RAD NO: Page 1 Signed Report 1 Patient Name: FATMATA DEGROOT Unit No: [id number] EXAMS: CPT CODE: [id number] CT ABD PELVIS W/O CONT 04164 (Continued) CT PELVIS WITHOUT CONTRAST: No opaque ureteral calculi and/or ureteraldilatation noted in the pelvis. Visualized bowel loops appear unremarkable without bowel wall thicken ing. No right lower quadrant inflammatory process noted. Uterus and ovaries are present. No free fluid or lymphadenopathy is seen. There is a small punctate calcification at the base of the cecum. Appendix was not visualized. However, no right lower quadrant inflammatory process was seen. IMPRESSION:No ureteral calculi identified. No acute pelvic abnormality identified. Please see above comments. at 1058 Reported and signed by: Joe Agudelo MD CC: Winter Mccollum MD; Austin Barrera Technologist: Art Church RT, CT CTDI: 13.28 DLP: 653.43 Trnscrbd D/ (1058) [email or web address] [facility] NAME: DEGROOTLYUBOVFATMATA Radiology Department PHYS: Winter Wilkins MD [address] : 1995 AGE: 24 SEX:F [place], [place] [address] LOC: ShaylaERS PHONE #: [phone] EXAM DATE: 08/01/2020 STATUS: REG ER FAX #: [phone] RAD NO: Page 2 Signed Report 1 Patient Name: FATMATA DEGROOT Unit No: [id number] EXAMS: CPT CODE: [id number] CT ABD PELVIS W/O CONT 05955 (Continued) Orig Print D/T: S:08/01/2020 (1101) [facility] NAME: FATMATA DEGROOT Radiology Department PHYS: CANAL. Winter Wilkins MD [address] : 1995 AGE: 24 SEX: F [place], [place] [address] LOC: ShaylaERS PHONE #: [phone] EXAM DATE: 08/01/2020 STATUS: REG ER FAX #: [phone] RAD NO: Page 3 Signed Report 1UA RFLX MICR CULT IF [id number] 10:04:00 Test Item Value Reference Range Interpretation [...] culture: Suprapubic PainSpecimen Description: CLEAN CATCHUR HCG [id number] 10:04:00 Test Item Value Reference Range Interpretation [...] Description: CLEAN CATCHUA RFLX MICR CULT IF [id number] 10:03:00 Test Item Value Reference Range Interpretation [...] culture: Suprapubic PainSpecimen Description: CLEAN CATCHUR HCG [id number] 10:03:00 Test Item Value Reference Range Interpretation Comments UR HCG QUAL (test code = HCGQLU) Indication for culture: Suprapubic PainSpecimen Description: CLEAN CATCH [id number] 14:39:00 Test Item Value Reference Range Interpretation Comments APPEARANCE (test code = Hazy Clear A 0631831641) COLOR (test code = Yellow Yellow 2880313846) PH (test code = 4.8-8.0 6360656647) SP GRAVITY (test code = 1.003-1.030 5672577500) GLU U QUAL (test code = Normal Normal 9418322069) BLOOD (test code = Negative Negative INTERFERE NCE FROM 7706365751) ASCORBIC ACID M AY CAUSE FALSE NEG ATIVE RESULT KETONES (test code = Negative Negative 4557237067) PROTEIN (test code = Negative Negative 2887-8) UROBILIN (test code = Normal Normal 8423466169) BILIRUBIN (test code = Negative Negative 7328282155) NITRITE (test code = Negative Negative 0588922722) LEUK SILVINO (test code = Negative Negative 4538549670) RBC/HPF (test code = See_Comment [Autom ated message] 9858731775) The system I-MD generated this result transmitted ref erence range: 0 - 3 HP F. The reference range was not used to int erpret this result as normal/abnormal . WBC/HPF (test code = <1 See_Comment [Autom ated message] 4548875378) The system I-MD generated this result transmitted ref erence range: 0 - 5 HP F. The reference range was not used to int erpret this result as normal/abnormal . BACTERIA (test code = Few Negative A 2000337649) MUCOUS (test code = Slight Negative LPF A 0637156971) SQ EPITH (test code = HPF 8687294959) Lab Interpretation (test Abnormal code = 97672-4) [facility] [id number] 14:08:00 Test Item Value Reference Range Interpretation Comments POCT PREG (test code = 1605) negative On board controls acceptable with present C Line (test code = 3574) POCT PREG LOT # (test code = 3575) [id number] POCT PREG TEST DATE (test 2022-02-25 code = 3576) Lab Interpretation (test code = Normal 00181-5) [facility] WITH [id number] 12:41:00 Test Item Value Reference Range Interpretation [...] RDW-SD (test code = 40.8 fL 39-49.9 18195-1) RDW-CV (test code = 13.0 % 12-15.5 788-0) PLT (test code = See_Comment H [Automated 777-3) message] The sy stem which generated this result transmitted reference range : 166 - 358 10*3/ ?L. The reference r shira was not used to interpret this result as normal/abnormal . MPV (test code = 9.5 fL 9.5-12.9 35470-2) NRBC/100 WBC (test See_Comment [Automat ed code = 5973230355) message] The system which generated this result transmitted reference range : 0.0 - 10.0 /100 WBCs. The refer ence range was not u sed to interpret th is result as normal/abnormal . NRBC x10^3 (test code <0.01 See_Comment [Auto mated = 6440041116) message] The s ystem which generated this result transmitted reference range : 10*3/?L. The reference range was not used to interpret this result as normal/abnormal . GRAN MAT (NEUT) % 49.7 % (test code = 770-8) IMM GRAN % (test code 0.40 % = 2319296366) LYMPH % (test code = 37.6 % 736-9) MONO % (test code = 6.3 % 5905-5) EOS % (test code = 5.4 % 713-8) BASO % (test code = 0.6 % 706-2) GRAN MAT x10^3(ANC) 4.65 10*3/uL 1.88-7.09 (test code = 1969028735) IMM GRAN x10^3 (test 0.04 10*3/uL 0-0.06 code = 7301708674) LYMPH x10^3 (test code 3.52 10*3/uL 1.32-3.29 H = 731-0) MONO x10^3 (test code 0.59 10*3/uL 0.33-0.92 = 742-7) EOS x10^3 (test code = 0.51 10*3/uL 0.03-0.39 H 711-2) BASO x10^3 (test code 0.06 10*3/uL 0.01-0.07 = 704-7) Lab Interpretation Abnormal (test code = 72267-4) [facility] W/AUTO [id number] 07:27:00 Test Item Value Reference Range Interpretation [...] NORMAL code = PLTMR) AG HEPATITIS B [id number] 04:15:00 Test Item Value Reference Range Interpretation Comments AG HEPATITIS B SURFACE (test code NONREACTIVE NONREACTIVE = HBSAG) AB HEPATITIS C [id number] 04:15:00 Test Item Value Reference Range Interpretation Comments AB HEPATITIS C (test code = NONREACTIVE NONREACTIVE HCVAB) SIGNAL TO CUTOFF (test code = 0.13 <0.80 N CUTOFF) RUBELLA [id number] 04:15:00 Test Item Value Reference Range Interpretation Comments RUBELLA SCREEN 70.2 IUnit/ml Results >10. 0IUnits/ml (test code = are considered positive RUBSC) inaccordance wi th the CLSI guidelines and based on the [employer] S tandard for Anti-Rubell a serum as anindicator of immune status and a br eakpoint to detect mostseropositiv e persons. AB [id number] 04:15:00 Test Item Value Reference Range Interpretation Comments AB TREPONEMA (test code = TREPAB) NONREACTIVE NONREACTIVE AG HEPATITIS B [id number] 04:00:00 Test Item Value Reference Range Interpretation Comments AG HEPATITIS B SURFACE (test code NONREACTIVE NONREACTIVE = HBSAG) AB HEPATITIS C [id number] 04:00:00 Test Item Value Reference Range Interpretation Comments AB HEPATITIS C (test code = HCVAB) NONREACTIVE SIGNAL TO CUTOFF (test code = CUTOFF) <0.80 RUBELLA [id number] 04:00:00 Test Item Value Reference Range Interpretation Comments RUBELLA SCREEN 70.2 IUnit/ml Results >10. 0IUnits/ml (test code = are considered positive RUBSC) inaccordance wi th the CLSI guidelines and based on the [employer] S tandard for Anti-Rubell a serum as anindicator of immune status and a br eakpoint to detect mostseropositiv e persons. AB [id number] 04:00:00 Test Item Value Reference Range Interpretation Comments AB TREPONEMA (test code = TREPAB) NONREACTIVE NONREACTIVE CBC W/AUTO [id number] 00:36:00 Test Item Value Reference Range Interpretation [...]
[2022-05-02 23:17] LABS: Absolute Lymphocytes (CBC) 1.8 K/uL (0.7-4.9); Hematocrit 41.3 % (36.0-45.0); Lymphocytes % 26.5 % (15.3-44.8); MCV 89.1 fL (80-100); MPV 7.5 fL (7.6-11.3); RBC Red Blood Cell Count 4.63 M/uL (3.86-4.86)
[2022-05-02 23:19] LABS: Urine Blood 1+ (Negative); Urine Glucose Negative (Negative); Urine Protein Negative (Negative)
[2022-05-02] MEDS ORDERED: METOCLOPRAMIDE 10 MG/2mL INJ ONE (23:31)
[2022-05-02] MEDS ORDERED: DIPHENHYDRAMINE 50 MG/ML VIAL ONE (23:32)
[2022-05-02] MEDS ORDERED: MORPHINE 2 MG/ML SYR ONE (23:32)
[2022-05-02 23:36] LABS: Albumin 3.8 g/dL (3.4-5.0); Bilirubin Total 0.6 mg/dL (0.2-1.0); Potassium 3.7 mmol/L (3.5-5.1); Protein, Total 7.5 g/dL (6.4-8.2)
--- NOTE | 2022-05-03 03:19 | EDPHYS ---
Physician Documentation [facility] Name: Carla Duncan Age: 26 yrs Sex: Female : 1995 Arrival Date: 05/02/2022 Time: 22:20 Bed 6 Private MD: ED Physician Jose Laws HPI: 05/03 02:06 This 26 yrs old Female presents to ER via Ambulatory with complaints of Bloody kdr Stools. 02:06 Patient presents with abdominal pain and what she believes to be bloody stools. She has kdr not had a bowel movement for 3 days. She suddenly had a bowel movement today as [place] of black-vizcarra material which she is showing to be blood. There was no bright red or dark red blood. She is otherwise in stable condition is not acutely ill on initial presentation. Onset: The symptoms/episode began/occurred gradually, 3 day(s) ago. Severity of symptoms: At their worst the symptoms were mild in the emergency department the symptoms are unchanged. The patient has not experienced similar symptoms in the past. The patient has not recently seen a physician. 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 - Social history:: Smoking status: Patient denies any tobacco usage or history of. ROS: 05/03 02:06 Constitutional: Negative for fever, chills, and weight loss, Eyes: Negative for injury, kdr pain, redness, and discharge, ENT: Negative for injury, pain, and discharge, Neck: Negative for injury, pain, and swelling, Cardiovascular: Negative for chest pain, palpitations, and edema, Respiratory: Negative for shortness of breath, cough, wheezing, and pleuritic chest pain, Back: Negative for injury and pain, : Negative for injury, bleeding, discharge, and swelling, MS/Extremity: Negative for injury and deformity, Skin: Negative for injury, rash, and discoloration, Neuro: Negative for headache, weakness, numbness, tingling, and seizure activity. Psych: Negative for depression, anxiety, suicide ideation, homicidal ideation, and hallucinations, Allergy/Immunology: Negative for hives, rash, and allergies, Endocrine: Negative for neck swelling, polydipsia, polyuria, polyphagia, and marked weight changes, Hematologic/Lymphatic: Negative for swollen nodes, abnormal bleeding, and unusual bruising. Abdomen/GI: Positive for abdominal pain, constipation, abdominal cramps, Negative for black/tarry stool, rectal pain, rectal bleeding, bowel incontinence. Exam: 02:06 Constitutional: This is a well developed, well nourished patient who is awake, alert, kdr and in no acute distress. Head/Face: Normocephalic, atraumatic. Eyes: Pupils equal round and reactive to light, extra-ocular motions intact. Lids and lashes normal. Conjunctiva and sclera are non-icteric and not injected. Cornea within normal limits. Periorbital areas with no swelling, redness, or edema. Neck: Trachea midline, no thyromegaly or masses palpated, and no cervical lymphadenopathy. Supple, full range of motion without nuchal rigidity, or vertebral point tenderness. No Meningismus. Chest/axilla: Normal chest wall appearance and motion. Nontender with no deformity. No lesions are appreciated. Cardiovascular: Regular rate and rhythm with a normal S1 and S2. No gallops, murmurs, or rubs. Normal PMI, no JVD. No pulse deficits. Respiratory: Lungs have equal breath sounds bilaterally, clear to auscultation and percussion. No rales, rhonchi or wheezes noted. No increased work of breathing, no retractions or nasal flaring. Back: No spinal tenderness. No costovertebral tenderness. Full range of motion. Skin: Warm, dry with normal turgor. Normal color with no rashes, no lesions, and no evidence of cellulitis. MS/ Extremity: Pulses equal, no cyanosis. Neurovascular intact. Full, normal range of motion. Neuro: Awake and alert, GCS 15, oriented to person, place, time, and situation. Cranial nerves II-XII grossly intact. Motor strength 5/5 in all extremities. Sensory grossly intact. Cerebellar exam normal. Normal gait. Psych: Awake, alert, with orientation to person, place and time. Behavior, mood, and affect are within normal limits. 02:06 Abdomen/GI: Inspection: abdomen appears normal, obese Bowel sounds: active, Palpation: soft, mild abdominal tenderness, in the right lower quadrant and left lower quadrant, Rectal exam: rectal tone normal, Stool: normal, guaiac negative, the exam is chaperoned by the nurse. Vital Signs: 05/02 22:28 BP 133 / 85; Pulse 93; Resp 16; Temp 98.5(O); Pulse Ox 100% on R/A; Weight 81.65 kg; kb3 Height 5 ft. (152.40 cm); Pain 10/10; 23:41 BP 119 / 79; Pulse 84; Resp 18 S; Pulse Ox 98% on R/A; as6 05/03 00:15 BP 114 / 72; Pulse 79; Resp 17 S; Pulse Ox 99% on R/A; aa9 01:41 BP 104 / 78; Pulse 80; Resp 16 S; Pulse Ox 99% on R/A; as6 03:38 BP 100 / 80; Pulse 72; Resp 16 S; Pulse Ox 99% on R/A; aa9 05/02 22:28 Body Mass Index 35.15 (81.65 kg, 152.40 cm) kb3 MDM: 02:06 Data reviewed: vital signs, nurses notes, lab test result(s), radiologic studies. kdr Counseling: I had a detailed discussion with the patient and/or guardian regarding: the historical points, exam findings, and any diagnostic results supporting the discharge/admit diagnosis, lab results, radiology results. 03:18 Patient medically screened. kdr 05/02 22:46 Order name: CBC with Diff; Complete Time: 00:14 kdr 05/02 22:46 Order name: CMP; Complete Time: 00:14 kdr 05/02 22:46 Order name: Lipase; Complete Time: 00:14 kdr 05/02 22:46 Order name: Type And Screen; Complete Time: 00:14 kdr 05/02 23:18 Order name: Urine --Ancillary (enter results); Complete Time: 00:14 wm 05/02 23:19 Order name: Urine Dipstick-Ancillary; Complete Time: 00:14 EDMS 05/02 22:46 Order name: IV Saline Lock; Complete Time: 23:07 kdr 05/03 00:16 Order name: CT Abd/Pelvis - IV Contrast Only kdr 05/02 22:46 Order name: Labs collected and sent; Complete Time: 23:07 kdr Administered Medications: 05/02 23:40 Drug: Benadryl (diphenhydrAMINE) 25 mg Route: IVP; Site: right antecubital; as6 05/03 03:28 Follow up: Response: No adverse reaction aa9 05/02 23:41 Drug: Reglan (metoCLOPramide) 10 mg Route: IVP; Site: right antecubital; as6 05/03 03:28 Follow up: Response: No adverse reaction aa9 05/02 23:41 Drug: morphine 2 mg Route: IVP; Infused Over: 4 mins; Site: right antecubital; as6 05/03 03:28 Follow up: Response: No adverse reaction aa9 03:38 Drug: Cipro (ciprofloxacin) 500 mg Route: PO; aa9 03:38 Drug: Flagyl (metroNIDAZOLE) 500 mg Route: PO; aa9 03:38 Drug: traMADol 50 mg Route: PO; aa9 Disposition Summary: 05/03/22 03:18 Discharge Ordered Location: Home kdr Problem: new kdr Symptoms: have improved kdr Condition: Stable kdr Diagnosis - Abdominal pain, Generalized kdr - Left sided colitis kdr Followup: kdr - With: Private Physician - When: 2 - 3 days - Reason: If symptoms return, Further diagnostic work-up, Recheck today's complaints, Continuance of care, Re-evaluation by your physician Discharge Instructions: - Discharge Summary Sheet kdr - Abdominal Pain, Adult, [id number] kdr - Colitis kdr Forms: - Medication Reconciliation Form kdr - Thank You Letter kdr - Antibiotic Education kdr Prescriptions: - Flagyl 500 mg Oral Tablet - take 1 tablet by ORAL route every 8 hours for 10 days; 30 tablet; Refills: 0, kdr Product Selection Permitted - Reglan 10 mg Oral Tablet - take 1 tablet by ORAL route every 6 hours take 30 minutes before meals and at kdr bedtime; 20 tablet; Refills: 0, Product Selection Permitted - Pepcid 20 mg Oral Tablet - take 1 tablet by ORAL route once daily; 20 tablet; Refills: 0, Product kdr Selection Permitted - Cipro 500 mg Oral Tablet - take 1 tablet by ORAL route every 12 hours for 7 days; 14 tablet; Refills: 0, kdr Product Selection Permitted Signatures: Dispatcher [employer] Jose Hinton MD MD kdr Slawson, Ashby, RN RN as6 Lee Ann Alejo RN RN aa9 Rose Canela RN RN kb3 Corrections: (The following items were deleted from the chart) 05/02 22:30 22:29 PSHx: section; kb3 kb3
--- NOTE | 2022-05-03 03:19 | ER ---
Nurse's Notes [facility] Name: Carla Duncan Age: 26 yrs Sex: Female : 1995 Arrival Date: 05/02/2022 Time: 22:20 Bed 6 Private MD: Diagnosis: Abdominal pain, Generalized;Left sided colitis Presentation: 05/02 22:28 Chief complaint: Dark black stools with red blood after BMs, lower abdominal pain, and kb3 N//V x 3 days. Coronavirus screen: At this time, the client does not indicate any symptoms associated with coronavirus-19. Ebola Screen: No symptoms or risks identified at this time. Risk Assessment: Do you want to hurt yourself or someone else? Patient reports no desire to harm self or others. Onset of symptoms was April 30, 2022. 22:28 Method Of Arrival: Ambulatory kb3 22:28 Acuity: VENKATESH 3 kb3 23:43 Initial Sepsis Screen: Does the patient meet any 2 criteria? No. Patient's initial as6 sepsis screen is negative. Does the patient have a suspected source of infection? No. Patient's initial sepsis screen is negative. 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 - Social history:: Smoking status: Patient denies any tobacco usage or history of. Screenin:42 Abuse screen: Denies threats or abuse. Denies injuries from another. Nutritional as6 screening: No deficits noted. Tuberculosis screening: No symptoms or risk factors identified. Fall Risk None identified. Assessment: 22:40 General: Appears uncomfortable, Behavior is cooperative. Pain: Complains of pain in as6 suprapubic area. Pain: Complains of pain in low back area. Neuro: Level of Consciousness is awake, alert, obeys commands. GI: Pt is actively vomiting bile, Reports constipation, rectal bleeding, nausea, vomiting. Vital Signs: 22:28 BP 133 / 85; Pulse 93; Resp 16; Temp 98.5(O); Pulse Ox 100% on R/A; Weight 81.65 kg; kb3 Height 5 ft. (152.40 cm); Pain 10/10; 23:41 BP 119 / 79; Pulse 84; Resp 18 S; Pulse Ox 98% on R/A; as6 05/03 00:15 BP 114 / 72; Pulse 79; Resp 17 S; Pulse Ox 99% on R/A; aa9 01:41 BP 104 / 78; Pulse 80; Resp 16 S; Pulse Ox 99% on R/A; as6 03:38 BP 100 / 80; Pulse 72; Resp 16 S; Pulse Ox 99% on R/A; aa9 05/02 22:28 Body Mass Index 35.15 (81.65 kg, 152.40 cm) kb3 ED Course: 05/02 22:20 Patient arrived in ED. ja2 22:21 Jose Laws MD is Attending Physician. kdr 22:28 Sunny Antony RN is Primary Nurse. as6 22:29 Triage completed. kb3 22:29 Arm band placed on. kb3 23:07 Inserted saline lock: 20 gauge in right antecubital area, using aseptic technique. as6 Blood collected. 23:43 Placed in gown. Bed in low position. Call light in reach. Side rails up X 1. as6 05/03 00:45 CT Abd/Pelvis - IV Contrast Only In Process Unspecified. EDMS 03:39 No provider procedures requiring assistance completed. IV discontinued, intact, aa9 bleeding controlled, No redness/swelling at site. Pressure dressing applied. Administered Medications: 05/02 23:40 Drug: Benadryl (diphenhydrAMINE) 25 mg Route: IVP; Site: right antecubital; as6 05/03 03:28 Follow up: Response: No adverse reaction aa9 05/02 23:41 Drug: Reglan (metoCLOPramide) 10 mg Route: IVP; Site: right antecubital; as6 05/03 03:28 Follow up: Response: No adverse reaction aa9 05/02 23:41 Drug: morphine 2 mg Route: IVP; Infused Over: 4 mins; Site: right antecubital; as6 05/03 03:28 Follow up: Response: No adverse reaction aa9 03:38 Drug: Cipro (ciprofloxacin) 500 mg Route: PO; aa9 03:38 Drug: Flagyl (metroNIDAZOLE) 500 mg Route: PO; aa9 03:38 Drug: traMADol 50 mg Route: PO; aa9 Medication: 05/02 23:43 VIS not applicable for this client. as6 Outcome: 05/03 03:18 Discharge ordered by . kdr 03:39 Discharged to home ambulatory. aa9 03:39 Condition: stable 03:39 Discharge instructions given to patient, Instructed on discharge instructions, follow up and referral plans. medication usage, Demonstrated understanding of instructions, follow-up care, medications, Prescriptions given X 4. 03:39 Patient left the ED. aa9 Signatures: Dispatcher [employer] EDMS Jose Laws MD MD kdr Alexander, Jessica ja2 Slawson, Ashby, RN RN as6 Lee Ann Alejo RN RN aa9 Rose Canela, JUDI RN kb3 Corrections: (The following items were deleted from the chart) 05/02 22:30 22:29 PSHx: section; kb3 kb3
[2022-05-03] MEDS ORDERED: CIPROFLOXACIN HCL 500 MG TAB ONE (03:33)
[2022-05-03] MEDS ORDERED: metroNIDAZOLE 500 MG TABLET ONE (03:33)
[2022-05-03] MEDS ORDERED: TRAMADOL HCL 50 MG TAB ONE (03:34)
[2022-05-03 04:19] VITALS: TEMP 98.5
[2022-05-03 04:23] VITALS: O2SAT 99
[2022-05-03 04:28] VITALS: BP 100/80
--- NOTE | 2022-05-03 21:16 | RAD REPORT ---
EXAM DESCRIPTION: CT Abdomen and Pelvis With Intravenous Contrast CLINICAL HISTORY: The patient is 26 years old and is Female; Abdominal pain, acute, nonlocalized TECHNIQUE: Axial computed tomography images of the abdomen and pelvis with intravenous contrast. S agittal and coronal reformatted images were created and reviewed. This CT exam was performed using one or more of the following dose reduction techniques: automated exposure control, adjustment of t he mA and/or kV according to patient size, and/or use of iterative reconstruction technique. COMPARISON: 03/26/2022 CT abdomen pelvis with contrast, 12/16/2019 CT abdomen pelvis FINDINGS: LUNG BASES: Unremarkable. No mass. No consolidation. ABDOMEN: LIVER: Indeterminate wedgelike focus of hypoattenuation in the inferior posterior right hepatic lob e (segment 6; axial image 24/85), only readily seen on venous phase imaging), which appears present b ut increased in conspicuity compared to 12/16/2019 exam. Focal hepatic steatosis demonstrated along the falciform ligament. GALLBLADDER AND BILE DUCTS: Unremarkable. No calcified stones. No ductal dilation. PANCREAS: Unremarkable. No mass. No ductal dilation. SPLEEN: Unremarkable. No splenomegaly. ADRENALS: Unremarkable. No mass. KIDNEYS AND URETERS: Unremarkable. No solid mass. No hydronephrosis. STOMACH AND BOWEL: Air-fluid level demonstrated in the descending colon, with relative circumferent ial wall thickening involving the mid to distal transverse colon (axial images 31-37), which appears new from 2019 exam and is present but less conspicuous on 2021 reference exam. No obstruction. PELVIS: APPENDIX: No findings to suggest acute appendicitis. BLADDER: Slight prominence of the circumferential urinary bladder wall is likely within normal limi ts for level of decompression. REPRODUCTIVE: Right ovary measures 2.8 x 2.5 cm and is immediately adjacent and superior to the uteri ne fundus (axial image 57/85), while the left ovary lies within the anterior left hemipelvis. Unremar kable as visualized. ABDOMEN and PELVIS: INTRAPERITONEAL SPACE: Unremarkable. No free air. No significant fluid collection. BONES/JOINTS: No acute fracture. No dislocation. SOFT TISSUES: Unremarkable. VASCULATURE: No abdominal aortic aneurysm or dissection. LYMPH NODES: Unremarkable. No enlarged lymph nodes. IMPRESSION: 1. Air-fluid level demonstrated in the descending colon, with relative circumferential w all thickening involving the mid to distal transverse colon (axial images 31-37), which appears new f 2019 exam and is present but less conspicuous on 2021 reference exam. Clinical correlation for co litis symptoms and diarrheal illness. Consider follow-up evaluation with nonemergent colonoscopy. 2. Indeterminate wedgelike focus of hypoattenuation in the inferior posterior right hepatic lobe (s egment 6; axial image ), only readily seen on venous phase imaging), which appears present but i ncreased in conspicuity compared to 12/16/2019 exam. While this is suspicious for an additional site o f focal fatty change given similar appearance to falciform ligament finding, consider further charact erization by nonemergent hepatic mass protocol CT. 3. Slight prominence of the circumferential urinary bladder wall is likely within normal limits for level of decompression. Electronically signed by: Wolf Emery MD 05/03/2022 2:59 AM [facility] DATA ENTRY Due to temporary technical issues with the PACS/Fluency reporting system, reports are being signed by the in house radiologists without review as a courtesy to insure prompt reporting. The interpreting radiologist is fully responsible for the content of the report.
== END 2022-05-03 03:39 | disposition home or self-care (01) ==
LOC: ER 22:14
DX: K51.50 Left sided colitis without complications (principal); I10 Essential (primary) hypertension; F31.9 Bipolar disorder, unspecified; Z88.1 Allergy status to other antibiotic agents; Z88.5 Allergy status to narcotic agent; Z88.6 Allergy status to analgesic agent
CPT/HCPCS: 85025; 36415; 86900; 86850; 81025; 86901; 81003; 83690; 80053; 74177; 96375; 96374; 99284; Q9967; J2765; J1200; J2270

== ENCOUNTER 2022-06-16 14:36 | Emergency (ER) | payer OTHER ==
--- OUTSIDE RECORDS SUMMARY | 2022-06-16 14:42 | XMS REPORT | Continuity of Care Document ---
:1995 Author Organization [facility] t Address [address] [place] [address] Care Team Providers Name Role Phone Asked, No Pcp Primary Care Physician Unavailable MENDY LIRIANO Attending Clinician Unavailable Calvin AREVALO, Lorena Real Attending Clinician [phone] Mendy Liriano MD Attending Clinician IZA DENSON Attending Clinician Unavailable Jessica AREVALO, Ania Attending Clinician AFSANEH CAR Attending Clinician Unavailable Josep SAM, Afsaneh Alarcon Attending Clinician Carlos Hernandez DO Attending Clinician Gume ELECTRIC REFRIGERATOR PREPARER, Akiko Attending Clinician Rivera PAC, John S Attending Clinician Troy PAC, Tricia Teixeira Attending Clinician RIVERA, JOHN S Attending Clinician Unavailable Wild Cowart MD Attending Clinician Dani Kauffman DO Attending Clinician LORENA SIMPSON Admitting Clinician Unavailable Wild Barrera Admitting Clinician Unavailable Payers Payer Name Policy Type Policy Number Effective Date Expiration Date S shobha DELGADOR FROM [id number] 2020 [facility] 00:00:00 [employer] [place] [facility] [id number] 2019 00:00:00 Problems Condition Condition Condition Status Onset Resolution Last Treating Co mments Source Name Details Category Date Date Treatment Clinician Date Obesity Obesity Disease Active Univers (BMI (BMI 1-16 ity of 30-39.9) 30-39.9) 00:00: [place] [id number] Medical Branch Urinary Urinary Disease Active Univers tract tract 5-29 [place] without 00 [place] hematuria, hematuria, Br anch site site unspecifie unspecifie d d Supervisio Supervisio Disease Active U nivers n of other n of other - it y of high risk high risk [...] nivers 5-23 ity of 00:00: [place] 00 Medical Branch Family Family Disease Active Univers history [...] 2-04 [facility] [place] butorpha DA Active [place] tachycardic [facility] nol 2-04 [facility]: [facility] [place] BUTORPHA DRUG Active Palpitations Un carolann NOL [...] 00 l of [place] codeine DA Active [place] 2018- [facility] 1-19 [facility] 00:[facility]: [facility] [place] morphine DA Active U SWELLING [facility] 1-19 [facility] 00:[facility]: [facility] [place] codeine DA Active [place] nausea, [facility] headache 1-19 [facility] 00:[facility]: [facility] 00 [facility] [place] tramadol DA Active [place] 2017- [facility] 2-31 [facility] 00:[facility]: [facility] 00 [facility] [place] tramadol DA Active [place] CHEST PAIN 2018- [facility] 2-31 [facility] 00:[facility]: [facility] [place] ACETAMIN DRUG Active High SOB Univers OPHEN-CO [...] 00 Medical Branch TUSSIN DRUG Active Rash 0 Univers DM COUGH 11-01 ity of MEDICINE 00:00: [place] 00 Medical Branch Tussin Propensi Active Rash Univers Dm Cough ty to 07 ity of Medicine adverse 00:00: [place] reaction 00 Medical s Branch No Known DA Active U [facility] Allergie 3-14 [facility] s 00:00: [facility] 00 [facility] of [place] Family History Family Member Diagnosis Comments Start Date Stop Date Source Natural mother Menstrual problems [facility] Natural mother Diabetes [facility] Social History Social Habit Start Date Stop Date Quantity Comments Source Exposure to 2022-05-18 2022-05-28 Not sure University of SARS-CoV-2 00:00:00 17:41:00 [facility] (event) Branch Tobacco use and 2022-03-26 2022-03-26 Smokeless tobacco [facility] exposure 00:00:00 00:00:00 non-user Alcohol intake 2022-03-26 2022-03-26 Current drinker [facility] 00:00:00 00:00:00 of alcohol (finding) Alcohol Comment 2016-04-28 2016-04-28 social, weekly [facility] 00:00:00 00:00:00 Sex Ass[birth year] At [birth year] [facility] 00:00:00 00:00:00 Smoking Status Start Date Stop Date Source Never smoked tobacco Religion H ospital Medications Ordered Filled Start Stop Current Ordering Indication Dosage Frequency Signature Comments Components Source Medication Medication Date Date Medication? Clinician (SIG) Name Name diphenhydrA 2021-06 No 25mg 25 mg, Uni vers MINE 07-30 Oral, ity of (BENADRYL) 04:30: 04:21 ONCE, 1 [place] as tablet 25 00 :00 dose, On Medica l mg [facility] 05/28/22 at 2230, RODRICK FENTanyl PF 2021-06 No 75ug 75 mcg, Un carolann (SUBLIMAZE 07-30 Slow IV ity o f (PF)) 04:30: 03:51 [place], [place] injection 00 :00 ONCE, 1 Medical 75 mcg dose, On [facility] 05/28/22 at 2230, Routine doxycycline 2021-06 No 100mg 100 mg, U nivers hyclate 07-30 Oral, ity of (Vibramycin 03:45: 03:51 [place] capsule 00 :00 dose, On Medica l 100 mg [facility] 05/28/22 at 2145, RODRICK
Re ason for Anti-Infec tive: Documented Infection< br>Documen jd Infection Site: Pelvic
Duration of Therapy: Other (see Comments) morpHINE (4 2021-06 No 4mg 4 mg, Slow Univers mg/mL) 07-30 IV [place], ity of injection 4 02:30: 02:47 [place]CE[place] 1 [place] mg 00 :[place] dose, On Medical [facility] 05/28/22 at 2030, STAT ketorolac 2021-06 No 15mg 15 mg, Unive rs (TORADOL) 07-30 Slow IV ity of injection 01:45: 01:01 [place], [place] 15 mg 00 :00 ONCE, 1 Medical dose, On [facility] 05/28/22 at 1945, Routine iopamidol 2021-06 No [id number] 75mL 75 mL, Univers (ISOVUE 07-30 Intravenou ity o f 370-500 mL) 01:15: 01:15 s, ONCE, 1 [place] injection 00 :00 dose, On Medica l 75 mL [facility] Branch 05/28/22 at 1915, Routine FENTanyl PF 2021-06- No 50ug 50 mcg, Un carolann (SUBLIMAZE 07-30 Slow IV ity o f (PF)) 01:00: 00:11 Push, [place] injection 00 :00 ONCE, 1 Medical 50 mcg dose, On Branch [facility] 05/28/22 at 1900, Routine ondansetron 2021-06- No 4mg 4 mg, Slow Univers (ZOFRAN 07-30 IV Push, ity of (PF)) 00:15: 00:11 ONCE, 1 [place] injection 4 00 :00 dose, On Medi [place] mg [facility] Branch 05/28/22 at 1815, RODRICK metroNIDAZO 2021-06 Yes [id number] 500mg Take 1 Univers LE 500 mg 07-29 tablet by ity o f tablet 00:00: mouth in [place] 00 the Medical morning Branch and 1 tablet in the evening. doxycycline 2021-06- Yes [id number] 100mg Take 1 Univers hyclate 100 07-29 capsule by i ty of mg capsule 00:00: 05:59 [place] :[place] the Medical morning Branch and 1 capsule in the evening. Do all this for 10 days. HYDROcodone 2021-06- Yes [id number] 1{tbl} Take 1 U nivers -acetaminop 07-29 tablet by it y of hen (NORCO) 00:00: 05:59 [place] 7.5-325 mg 00 :00 every 8 Medica l per tablet (eight) Branch hours as needed for Pain for up to 7 days. Indication s: acute pain ibuprofen 2021- No 800mg Q6H Take 800 [...] as needed for nausea or vomiting. ibuprofen Yes 800mg Q8H Take 1 Metho [...] as needed for nausea or vomiting. ibuprofen 2022-0 Yes 800mg Q8H Take 1 Metho di (ADVIL) 800 9-[address] MG tablet 00:00: (800 mg Hospi ta 00 total) by l mouth every 8 (eight) hours as needed for mild pain. ondansetron 2022-0 Yes 4mg Q8H Take 1 Meth shamir ODT 9-29 tablet (4 st (ZOFRAN-ODT 00:00: mg total) H ospita ) 4 MG 00 by mouth l disintegrat every 8 ing tablet (eight) hours as needed for nausea or vomiting. ibuprofen 2022-0 Yes 800mg Q8H Take 1 Metho di (ADVIL) 800 9-[address] MG tablet 00:00: (800 mg Hospi ta 00 total) by l mouth every 8 (eight) hours as needed for mild pain. ondansetron 2022-0 Yes 4mg Q8H Take 1 Meth shamir ODT 9-29 tablet (4 st (ZOFRAN-ODT 00:00: mg total) H ospita ) 4 MG 00 by mouth l disintegrat every 8 ing tablet (eight) hours as needed for nausea or vomiting. ibuprofen 2022-0 Yes 800mg Q8H Take 1 Metho di (ADVIL) 800 9-[address] MG tablet 00:00: (800 mg Hospi ta 00 total) by l mouth every 8 (eight) hours as needed for mild pain. ondansetron 2022-0 Yes 4mg Q8H Take 1 Meth shamir ODT 9-29 tablet (4 st (ZOFRAN-ODT 00:00: mg total) H ospita ) 4 MG 00 by mouth l disintegrat every 8 ing tablet (eight) hours as needed for nausea or vomiting. ibuprofen 2022-0 Yes 800mg Q8H Take 1 Metho di (ADVIL) 800 9-[address] MG tablet 00:00: (800 mg Hospi ta 00 total) by l mouth every 8 (eight) hours as needed for mild pain. ondansetron 2022-0 Yes 4mg Q8H Take 1 Meth shamir ODT 9-29 tablet (4 st (ZOFRAN-ODT 00:00: mg total) H ospita ) 4 MG 00 by mouth l disintegrat every 8 ing tablet (eight) hours as needed for nausea or vomiting. ALPRAZolam Yes alprazolam U nivers 0.5 mg 02-28 0.5 mg ity of tablet 12:44: tablet [facility] bupropion Yes bupropion Uni vers HBr 02-28 HBr ity of (APLENZIN 12:44: [place] ORAL) [facility] FLUoxetine Yes fluoxetine U nivers 20 mg 02-28 20 mg ity of capsule 12:44: capsule [place] [facility] famotidine No 20mg 20 mg, Univ ers [...] 0.5 mg ity of tablet 23:48: tablet [facility] bupropion Yes bupropion Uni vers HBr 02-26 HBr ity of (APLENZIN 23:48: [place] ORAL) [facility] FLUoxetine Yes fluoxetine U nivers 20 mg 02-26 20 mg ity of capsule 23:48: capsule [place] [facility] ciprofloxac 2021- No 500mg Q.5D Take 1 [...] times a day for 7 days. ciprofloxac 2022-0 2022- No 500mg Q.5D Take 1 Me thodi in (CIPRO) 02-[address] 500 MG 00:00: 04:59 (500 mg Hospita tablet 00 :00 total) by l mouth 2 (two) times a day for 7 days. ciprofloxac 202-0 2022- No 500mg Q.5D Take 1 Me thodi in (CIPRO) 02-[address] 500 MG 00:00: 04:59 (500 mg Hospita tablet 00 :00 total) by l mouth 2 (two) times a day for 7 days. ciprofloxac 2021-0 2021- No 500mg Q.5D Take 1 Me thodi in (CIPRO) 02-[address] 500 MG 00:00: 04:59 (500 mg Hospita tablet 00 :00 total) by l mouth 2 (two) times a day for 7 days. ciprofloxac 2021-0 2021- No 500mg Q.5D Take 1 Me thodi in (CIPRO) 02-[address] 500 MG 00:00: 04:59 (500 mg Hospita tablet 00 :00 total) by l mouth 2 (two) times a day for 7 days. phenazopyri 2021-0 2021- No 200mg Q.[id number] Take 1 Methodi dine 02-[id number] (PYRIDIUM) 00:00: 04:59 3D (200 mg Hos radha 200 MG 00 :00 total) by l tablet mouth 3 (three) times a day for 3 days. phenazopyri 2-0 2- No 200mg Q.[id number] Take 1 Methodi dine 02-[id number] (PYRIDIUM) 00:00: 04:59 3D (200 mg Hos radha 200 MG 00 :00 total) by l tablet mouth 3 (three) times a day for 3 days. phenazopyri 2-0 2- No 200mg Q.[id number] Take 1 Methodi dine 02-[id number] (PYRIDIUM) 00:00: 04:59 3D (200 mg Hos radha 200 MG 00 :00 total) by l tablet mouth 3 (three) times a day for 3 days. phenazopyri 2021- No 200mg Q.[id number] Take 1 Methodi dine 02-[id number] (PYRIDIUM) 00:00: 04:59 3D (200 mg Hos radha 200 MG 00 :00 total) by l tablet mouth 3 (three) times a day for 3 days. phenazopyri 2021- No 200mg Q.[id number] Take 1 Methodi dine 02-[id number] (PYRIDIUM) 00:00: 04:59 3D (200 mg Hos radha 200 MG 00 :00 total) by l tablet mouth 3 (three) times a day for 3 days. phenazopyri 2021- No 200mg Q.[id number] Take 1 Methodi dine 02-[id number] (PYRIDIUM) 00:00: 04:59 3D (200 [...] 12/31/20 at Branch 0300, RODRICK ibuprofen Yes [id number] 800mg Take 1 U nivers 800 mg 7-06 tablet by ity of tablet 00:00: mouth [place] 00 every 8 Medical (eight) Branch hours as needed for Pain (scale 4-6). cyclobenzap Yes [id number] 10mg Take 1 Univers rine 10 mg 7-06 tablet by ity of tablet 00:00: mouth 3 [place] 00 (three) Medical times Branch daily as needed for Muscle Spasms. ibuprofen 2021- No [id number] 800mg Take 1 Univers 800 mg 7- 09- tablet by ity of tablet 00:00: 00:00 mouth [place] 00 :00 every 8 Medical (eight) Branch hours as needed for Pain (scale 4-6). cyclobenzap 2021- No [id number] 10mg Take 1 Univers rine 10 mg 7-12 04- tablet by ity of tablet 00:00: 00:00 [...] 1,000 mL 00 :00 IV [facility], [place] ONCE, 1 dose, [facility] 11/20/20 at 1530, STAT metoclopram 2020- No 10mg 10 mg, Uni vers dio HCl 11-20- Slow IV ity of (REGLAN) 20:15: 19:18 [place], [place] injection 00 :00 ONCE, 1 Medical 10 mg dose, [facility] 11/20/20 at 1515, RODRICK ketorolac 2020- [...] 11-20 Oral, ity of en-caff 18:12: Q4HPRN, [place] (ESGIC) 27 Starting Medical 50-325-40 Wed Branch mg tablet 1 11/20/20 at tablet 1312, Until Discontinu ed, Routine, zofran ketorolac 0 Yes [id number] 10mg Take 1 Un carolann 10 mg 5-26 tablet by ity of tablet 00:00: mouth [place] 00 every 6 Medical (six) Branch hours as needed for Pain (scale 4-6). cyclobenzap Yes [id number] 10mg Take 1 Univers rine 10 mg 5-26 tablet by ity of tablet 00:00: mouth 3 [place] 00 (three) Medical times Branch daily. ketorolac 2020-0 Yes [id number] 10mg Take 1 Un carolann 10 mg 5-26 tablet by ity of tablet 00:00: mouth [place] 00 every 6 Medical (six) Branch hours as needed for Pain (scale 4-6). cyclobenzap 0 Yes [id number] 10mg Take 1 Univers rine 10 mg 5-26 tablet by ity of tablet 00:00: mouth 3 [place] 00 (three) Medical times Branch daily. ketorolac 2020-0 2021- No [id number] 10mg Take 1 U nivers 10 mg 5-26 - tablet by ity of tablet 00:00: 00:00 mouth [place] 00 :00 every 6 Medical (six) Branch hours as needed for Pain (scale 4-6). cyclobenzap 2020-0 2021- No [id number] 10mg Take 1 Univers rine 10 mg 5-26 02-26 tablet by ity of tablet 00:00: 00:00 [...] 09/26/20 Branch at 2245, RODRICK ondansetron Yes [id number] 4mg Take 1 Univers (ZOFRAN 4-01 tablet by ity of ODT) 4 mg 00:00: mouth [place] disintegrat 00 every 8 Medic al ing tablet (eight) Branch hours as needed for Nausea and Vomiting (N/V). ondansetron Yes [id number] 4mg Take 1 Univers (ZOFRAN 4-01 tablet by ity of ODT) 4 mg 00:00: mouth [place] disintegrat 00 every 8 Medic al ing tablet (eight) Branch hours as needed for Nausea and Vomiting (N/V). ondansetron Yes [id number] 4mg Take 1 Univers (ZOFRAN 4-01 tablet by ity of ODT) 4 mg 00:00: mouth [place] disintegrat 00 every 8 Medic al ing tablet (eight) Branch hours as needed for Nausea and Vomiting (N/V). ondansetron 2021- No [id number] 4mg Take 1 Univers (ZOFRAN 4-01 -01 tablet by ity of ODT) 4 mg 00:00: 00:00 mouth [place] disintegrat 00 :00 every 8 Medic al ing tablet (eight) Branch hours as needed for Nausea and Vomiting (N/V). proMETHazin Yes [id number] 25mg Take 1 Univers e 25 mg 2-09 tablet by ity of tablet 00:00: mouth [place] 00 every 6 Medical (six) Branch hours as needed for Nausea and Vomiting (N/V). proMETHazin Yes [id number] 25mg Take 1 Univers e 25 mg 2-09 tablet by ity of tablet 00:00: mouth [place] 00 every 6 Medical (six) Branch hours as needed for Nausea and Vomiting (N/V). proMETHazin Yes [id number] 25mg Take 1 Univers e 25 mg 2-09 tablet by ity of tablet 00:00: mouth [place] 00 every 6 Medical (six) Branch hours as needed for Nausea and Vomiting (N/V). proMETHazin 2021- No [id number] 25mg Take 1 Univers e 25 mg 2-09 02-26 tablet by ity of tablet 00:00: 00:00 [...]
Fa culty member approving Restricted medication : WILD COWART E NaCl 0.9% 2020- No 1000mL [...] Name Td 2011-06-28 Completed University of 00:00:00 [facility] Td 2011-06-28 Completed University of 00:00:00 [facility] Td 2011-06-28 Completed University of 00:00:00 [facility] Td 2011-06-28 Completed University of 00:00:00 [facility] Td 2011-06-28 Completed University of 00:00:00 [facility] Td 2011-06-28 Completed University of 00:00:00 [facility] Vital Signs Vital Name Observation Time Observation Value Comments Source Systolic blood 2022-05-29 04:19:00 123 mm[Hg] Univer sity of pressure [facility] Diastolic blood 2022-05-29 04:19:00 87 mm[Hg] Unive rsity of pressure [facility] Heart rate 2022-05-29 04:19:00 93 /min [facility] Respiratory rate 2022-05-29 04:19:00 18 /min [facility] Oxygen saturation in 2022-05-29 04:19:00 97 /min [facility] Arterial blood by [facility] Pulse oximetry Branch Body temperature 2022-05-28 23:42:00 37.11 [place] [facility] ersity of [place] [facility] Body height 2022-05-28 23:42:00 152.4 cm Universi ty of [place] [facility] Systolic blood 2022-02-27 05:31:00 130 mm[Hg] Univer sity of pressure [place] [facility] Diastolic blood 2022-02-27 05:31:00 87 mm[Hg] Unive rsity of pressure [place] [facility] Heart rate 2022-02-27 05:31:00 98 /min Universi ty of [place] [facility] Respiratory rate 2022-02-27 05:31:00 18 /min Univ ersity of [place] [facility] Oxygen saturation in 2022-02-27 05:31:00 99 /min University of Arterial blood by [employer] [place] Pulse oximetry Branch Body height 2022-02-27 03:38:00 152.4 cm Universi ty of [place] [facility] Body weight 2022-02-27 03:38:00 82.101 kg Universi ty of [place] [facility] BMI 2022-02-27 03:38:00 35.35 kg/m2 Universi ty [facility] [place] [facility] Body temperature 2022-02-27 03:36:00 36.28 [place] [facility] ersity of [place] [facility] Systolic blood 2020-12-31 06:49:00 125 mm[Hg] Univer sity of pressure [place] [facility] Diastolic blood 2020-12-31 06:49:00 93 mm[Hg] Unive rsity of pressure [place] [facility] Heart rate 2020-12-31 06:49:00 104 /min Universi ty of [place] [facility] Body temperature 2020-12-31 06:49:00 36.83 [place] [facility] ersity of [place] [facility] Respiratory rate 2020-12-31 06:49:00 15 /min Univ ersity of [place] [facility] Body height 2020-12-31 06:49:00 152.4 cm Universi ty of [place] [facility] Body weight 2020-12-31 06:49:00 92.5 kg Universi ty of [place] [facility] BMI 2020-12-31 06:49:00 39.83 kg/m2 Universi ty of [place] [facility] Oxygen saturation in 2020-12-31 06:49:00 99 /min University of Arterial blood by [employer] [place] Pulse oximetry Branch Systolic blood 2020-12-31 06:49:00 125 mm[Hg] Univer sity of pressure [place] [facility] Diastolic blood 2020-12-31 06:49:00 93 mm[Hg] Unive rsity of pressure [place] [facility] Heart rate 2020-12-31 06:49:00 104 /min Universi ty of [place] [facility] Body temperature 2020-12-31 06:49:00 36.83 [place] [facility] ersity of [place] [facility] Respiratory rate 2020-12-31 06:49:00 15 /min Univ ersity of [place] [facility] Body height 2020-12-31 06:49:00 152.4 cm Universi ty [facility] [place] [facility] Body weight 2020-12-31 06:49:00 92.5 kg Universi ty [facility] [place] [facility] BMI 2020-12-31 06:49:00 39.83 kg/m2 Universi ty [facility] [place] [facility] Oxygen saturation in 2020-12-31 06:49:00 99 /min University of Arterial blood by [facility] Pulse oximetry Branch Systolic blood 2020-11-20 19:58:00 146 mm[Hg] Univer sity of pressure [place] [facility] Diastolic blood 2020-11-20 19:58:00 95 mm[Hg] Unive rsity of pressure [place] [facility] Heart rate 2020-11-20 19:58:00 98 /min Universi ty of [place] [facility] Body temperature 2020-11-20 19:58:00 37.17 [place] [facility] ersity [facility] [place] [facility] Respiratory rate 2020-11-20 19:58:00 17 /min Univ ersity of [place] [facility] Oxygen saturation in 2020-11-20 19:58:00 100 /min University of Arterial blood by [facility] Pulse oximetry Branch Body weight 2020-11-20 16:43:00 92.534 kg Universi ty of [place] [facility] BMI 2020-11-20 16:43:00 39.84 kg/m2 Universi ty [facility] [place] [facility] Systolic blood 2020-11-20 19:58:00 146 mm[Hg] Univer sity of pressure [place] [facility] Diastolic blood 2020-11-20 19:58:00 95 mm[Hg] Unive rsity of pressure [place] [facility] Heart rate 2020-11-20 19:58:00 98 /min Universi ty of [place] [facility] Body temperature 2020-11-20 19:58:00 37.17 [place] Univ ersity [facility] [place] [facility] Respiratory rate 2020-11-20 19:58:00 17 /min Univ ersity of [place] [facility] Oxygen saturation in 2020-11-20 19:58:00 100 /min University of Arterial blood by [facility] Pulse oximetry Branch Body weight 2020-11-20 16:43:00 92.534 kg Universi ty of [place] [facility] BMI 2020-11-20 16:43:00 39.84 kg/m2 Universi ty [facility] [place] [facility] Body height 2020-09-26 23:49:00 152.4 cm [facility]i ty [facility] [place] [facility] Body weight 2020-09-26 23:49:00 90.719 kg [facility]i ty [facility] [place] [facility] BMI 2020-09-26 23:49:00 39.06 kg/m2 [facility]i ty [facility] [place] [facility] Systolic blood 2020-09-26 23:45:00 103 mm[Hg] Univer sity of pressure [place] [facility] Diastolic blood 2020-09-26 23:45:00 62 mm[Hg] Unive rsity of pressure [place] [facility] Heart rate 2020-09-26 23:45:00 107 /min Universi ty [facility] [place] [facility] Body temperature 2020-09-26 23:45:00 36.61 [place] [facility] ersity [facility] [place] [facility] Respiratory rate 2020-09-26 23:45:00 18 /min Univ ersity of [place] [facility] Oxygen saturation in 2020-09-26 23:45:00 97 /min University of Arterial blood by [facility] Pulse oximetry Branch Body height 2020-09-26 23:49:00 152.4 cm Universi ty [facility] [place] [facility] Body weight 2020-09-26 23:49:00 90.719 kg Universi ty [facility] [place] [facility] BMI 2020-09-26 23:49:00 39.06 kg/m2 [facility]i ty [facility] [place] [facility] Systolic blood 2020-09-26 23:45:00 103 mm[Hg] Univer sity of pressure [place] [facility] Diastolic blood 2020-09-26 23:45:00 62 mm[Hg] Unive rsity of pressure [place] [facility] Heart rate 2020-09-26 23:45:00 107 /min Universi ty of [place] [facility] Body temperature 2020-09-26 23:45:00 36.61 [place] [facility] ersity [facility] [place] [facility] Respiratory rate 2020-09-26 23:45:00 18 /min Univ ersity of [place] [facility] Oxygen saturation in 2020-09-26 23:45:00 97 /min University of Arterial blood by [facility] Pulse oximetry Branch Systolic blood 2020-07-17 14:00:00 112 mm[Hg] Univer sity of pressure [place] [facility] Diastolic blood 2020-07-17 14:00:00 65 mm[Hg] Unive rsity of pressure [place] [facility] Heart rate 2020-07-17 14:00:00 86 /min Universi ty of [place] [facility] Respiratory rate 2020-07-17 14:00:00 20 /min Univ ersity of [place] [facility] Oxygen saturation in 2020-07-17 14:00:00 100 /min University of Arterial blood by [facility] Pulse oximetry Branch Body temperature 2020-07-17 11:50:00 37.22 [place] [facility] ers[facility] [place] [facility] Body weight 2020-07-17 11:50:00 86.183 kg Universi ty of [place] [facility] BMI 2020-07-17 11:50:00 37.11 kg/m2 [facility] ty [facility] [place] [facility] Systolic blood 2020-07-17 14:00:00 112 mm[Hg] Univer sity of pressure [place] [facility] Diastolic blood 2020-07-17 14:00:00 65 mm[Hg] Unive rsity of pressure [place] [facility] Heart rate 2020-07-17 14:00:00 86 /min Universi ty of [place] [facility] Respiratory rate 2020-07-17 14:00:00 20 /min Univ ersity of [place] [facility] Oxygen saturation in 2020-07-17 14:00:00 100 /min University of Arterial blood by [facility] Pulse oximetry Branch Body temperature 2020-07-17 11:50:00 37.22 [place] [facility] [place] [facility] Body weight 2020-07-17 11:50:00 86.183 kg Universi ty of [place] [facility] BMI 2020-07-17 11:50:00 37.11 kg/m2 [facility] ty [facility] [place] [facility] Systolic blood 2022-03-26 13:44:00 139 mm[Hg] [facility] pressure Diastolic blood 2022-03-26 13:44:00 83 mm[Hg] [facility] pressure Heart rate 2022-03-26 13:44:00 101 /min [facility] Respiratory rate 2022-03-26 13:44:00 18 /min [facility] Oxygen saturation in 2022-03-26 13:44:00 100 /min [facility] Arterial blood by Pulse oximetry Body temperature 2022-03-26 12:32:00 36.72 [place] [facility] Body height 2022-03-26 12:32:00 157.5 cm [facility] Body weight 2022-03-26 12:32:00 85.276 kg [facility] BMI 2022-03-26 12:32:00 34.39 kg/m2 [facility] Procedures Procedure Date / Time Performing Clinician Source Performed US PELVIS COMPLETE WITH 2022-05-29 02:07:00 Lorena Simpson [facility] TRANSVAGINAL [facility] CT ABDOMEN PELVIS W 2022-05-29 00:28:13 Lorena Simpson [facility] CONTRAST [facility] COMP. METABOLIC PANEL 2022-05-29 00:07:00 Calvin Lorena [facility] ([id number]) [facility] CBC WITH DIFF 2022-05-29 00:07:00 Lorena Simpson [facility] URINALYSIS 2022-05-28 23:56:00 Lorena Simpson [facility] POCT TEST 2022-05-28 23:53:00 [facility] CONSENT/REFUSAL FOR 2022-05-28 23:40:29 Doctor Unassigned, No Un [facility] DIAGNOSIS AND TREATMENT Name [facility] URINALYSIS 2022-03-26 13:06:00 Ania Lopez [facility] HCG QUALITATIVE, URINE 2022-03-26 13:06:00 Ania Lopez [facility] SCREEN URINALYSIS 2022-03-26 13:06:00 Jessica Ania [facility] HCG QUALITATIVE, URINE 2022-03-26 13:06:00 [facility] SCREEN CBC WITH PLATELET AND 2022-03-26 12:46:00 [facility] DIFFERENTIAL COMPREHENSIVE METABOLIC 2022-03-26 12:46:00 [facility] PANEL ESTIMATED GFR 2022-03-26 12:46:00 [facility] HC COMPLETE BLD COUNT 2022-03-26 12:46:00 [facility] W/AUTO DIFF POCT TEST 2022-02-27 04:56:00 Afsaneh Car [facility] LIPASE 2022-02-27 04:04:00 Afsaneh Car [facility] TROPONIN I 2022-02-27 04:04:00 Afsaneh Car [facility] THYROID STIMULATING 2022-02-27 04:04:00 Afsaneh Car [facility] HORMONE [facility] COMP. METABOLIC PANEL 2022-02-27 04:04:00 Afsaneh Car [facility] ([id number]) [facility] CBC WITH DIFF 2022-02-27 04:04:00 Afsaneh Car [facility] URINALYSIS 2022-02-27 03:56:00 Afsaneh Car [facility] URINE DRUG (IMMUNOASSAY) 2022-02-27 03:56:00 Afsaneh Car [email or web address] DRUG Medical [facility] SCREEN W/O REFLEX NOTICE OF PRIVACY 2022-02-27 03:05:57 Doctor Unassigned, No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 free pelvic fluid noted. IMPRESSION: No acute abnormality identified. Bilateral ovarian follicles. at 1412 Reported and signed by: Joe Agudelo MD CC: Winter Mccollum MD; Wild Barrera Technologist: Alexandra Elder RDMS Probe: Trnscrbd D/ (1412) [email or web address] Orig Print D/T: S: 08/01/2020(1415) [facility] NAME: FATMATA DEGROOT Radiology Department PHYS: Winter Landaverde MD [address] : 1995 AGE: 24 SEX: F [place] [address] LOC: Saran.ERS PHONE #: [phone] EXAM DATE: 08/01/2020 STATUS: REG ER FAX #: [phone] RAD NO: Page 1 Signed Report Patient Name: FATMATA DEGROOT Unit No: [id number] EXAMS: CPT CODE: [id number] US PELVIS COMPLETE 07390 (Continued) [facility] NAME: LYUBOV DEGROOTRINA Radiology Department PHYS: Winter Landaverde MD [address] : 1995 AGE: 24 SEX: F [place], [place] [address] LOC: Saran.ERS PHONE #: [phone] EXAM DATE: 08/01/2020 STATUS: REG ER FAX #: [phone] RAD NO: Page 2 Signed Report- CT ABD PELVIS W/O [id number] 10:58:00 [facility] : 1995 Sex: F Patient Name: FATMATA DEGROOT Unit No: [id number] EXAMS: CPT CODE: [id number] CT ABD PELVIS W/O CONT 62203 CT ABDOMEN/CT STONE SURVEY WITHOUT CONTRAST, 08/01/2020 10:27 AM: COMPARISON: none CLINICAL HISTORY: bl back pain +blood in UA One or more of the following dose techniques were utilized; automated exposure control, adjustment of the mA and/or kV according to patient size, and/or utilization of iterative reconstruction technique. DLP: 653.43 mGy-cm. STONE PROTOCOL DISCLAIMER COMMENT: Please note thatsecondary to IV, gastrointestinal and rectal contrast not [...] 6 mm right middle lobe pulmonary nodule.[facility] NAME: FATMATA DEGROOT Radiology Department PHYS: Winter aLndaverde MD [address] : 1995 AGE: 24 SEX: F [place], [place] [address] LOC: SANDY PHONE #: [phone] EXAM DATE: 08/01/2020 STATUS: REG ER FAX #: [phone] RAD NO: Page 1 Signed Report 1 Patient Name: FATMATA DEGROOT Unit No: [id number] EXAMS: CPT CODE: [id number] CT ABD PELVIS W/O CONT 65371 (Continued) CT PELVIS WITHOUT CONTRAST: No opaque [...] Joe Agudelo MD CC: Winter Mccollum MD; Wild Barrera Technologist: Art Church, RT, CT CTDI: 13.28 DLP: 653.43 Trnscrbd D/ (1058) [email or web address] [facility] NAME: FATMATA DEGROOT Radiology Department PHYS: Winter Landaverde MD [address] : 1995 AGE: 24 SEX: [place] [address] LOC: ShaylaERS PHONE #: [phone] EXAM DATE: 08/01/2020 STATUS: REG ER FAX #: [phone] RAD NO: Page 2 Signed Report 1 Patient Name: FATMATA DEGROOT Unit No: [id number] EXAMS: CPT CODE: [id number] CT ABD PELVIS W/O CONT 92480 (Continued) Orig Print D/T: S:08/01/2020 (1101) [facility] NAME: FATMATA DEGROOT Radiology Department PHYS: Winter Ortiz MD [address] : 1995 AGE: 24 SEX: [place], [place] [address] LOC: Saran.ERS PHONE #: [phone] EXAM DATE: 08/01/2020 STATUS: REG ER FAX #: [phone] RAD NO: Page 3 Signed Report 1UA RFLX MICR CULT IF INDICATED 2020-08-01 10:04:00 Test Item Value Reference Range Interpretation [...] culture: Suprapubic PainSpecimen Description: CLEAN CATCHUR HCG [id number] 10:04:00 Test Item Value Reference Range Interpretation [...] Description: CLEAN CATCHUA RFLX MICR CULT IF [id number] 10:03:00 Test Item Value Reference Range Interpretation [...] culture: Suprapubic PainSpecimen Description: CLEAN CATCHUR HCG [id number] 10:03:00 Test Item Value Reference Range Interpretation Comments UR HCG QUAL (test code = HCGQLU) Indication for culture: Suprapubic PainSpecimen Description: CLEAN CATCH [id number] 14:39:00 Test Item Value Reference Range Interpretation Comments APPEARANCE (test code = Hazy Clear A 3134068695) COLOR (test code = Yellow Yellow 7311689499) PH (test code = 4.8-8.0 5457372399) SP GRAVITY (test code = 1.003-1.030 6586837182) GLU U QUAL (test code = Normal Normal 1734733174) BLOOD (test code = Negative Negative INTERFERE NCE FROM 3773608723) ASCORBIC ACID M AY CAUSE FALSE NEG ATIVE RESULT KETONES (test code = Negative Negative 2581368587) PROTEIN (test code = Negative Negative 2887-8) UROBILIN (test code = Normal Normal 0683011037) BILIRUBIN (test code = Negative Negative 3534483869) NITRITE (test code = Negative Negative 3781426503) LEUK SILVINO (test code = Negative Negative 6786318313) RBC/HPF (test code = See_Comment [Autom ated message] 0783179664) The system [employer] generated this result transmitted ref erence range: 0 - 3 HP F. The reference range was not used to int erpret this result as normal/abnormal . WBC/HPF (test code = <1 See_Comment [Autom ated message] 5708241787) The system [employer] generated this result transmitted ref erence range: 0 - 5 HP F. The reference range was not used to int erpret this result as normal/abnormal . BACTERIA (test code = Few Negative A 9994039955) MUCOUS (test code = Slight Negative LPF A 4122404962) SQ EPITH (test code = HPF 1579640009) Lab Interpretation (test Abnormal code = 59869-0) [facility] [id number] 14:08:00 Test Item Value Reference Range Interpretation Comments POCT PREG (test code = 1605) negative On board controls acceptable with present C Line (test code = 3574) POCT PREG LOT # (test code = 3575) [id number] POCT PREG TEST DATE (test 2022-02-25 code = 3576) Lab Interpretation (test code = Normal 95330-7) [facility] WITH [id number] 12:41:00 Test Item Value Reference Range Interpretation Comments WBC (test code = See_Comment [Automated 3390-2) message] The sy stem which generated this result transmitted reference range : 4.30 - 11.10 10*3/?L. The reference range was not used to interpret this result as normal/abnormal . RBC (test code = See_Comment [Automated 649-8) message] The sy stem which generated this [...] RDW-SD (test code = 40.8 fL 39-49.9 27774-9) RDW-CV (test code = 13.0 % 12-15.5 788-0) PLT (test code = See_Comment H [Automated 777-3) message] The sy stem which generated this result transmitted reference range : 166 - 358 10*3/ ?L. The reference r shira was not used to interpret this result as normal/abnormal . MPV (test code = 9.5 fL 9.5-12.9 41970-0) NRBC/100 WBC (test See_Comment [Automat ed code = 9953875209) message] The system which generated this result transmitted reference range : 0.0 - 10.0 /100 WBCs. The refer ence range was not u sed to interpret th is result as normal/abnormal . NRBC x10^3 (test code <0.01 See_Comment [Auto mated = 6428936513) message] The s ystem which generated this result transmitted reference range : 10*3/?L. The reference range was not used to interpret this result as normal/abnormal . GRAN MAT (NEUT) % 49.7 % (test code = 770-8) IMM GRAN % (test code 0.40 % = 8900390827) LYMPH % (test code = 37.6 % 736-9) MONO % (test code = 6.3 % 5905-5) EOS % (test code = 5.4 % 713-8) BASO % (test code = 0.6 % 706-2) GRAN MAT x10^3(ANC) 4.65 10*3/uL 1.88-7.09 (test code = 8443185393) IMM GRAN x10^3 (test 0.04 10*3/uL 0-0.06 code = 4087484814) LYMPH x10^3 (test code 3.52 10*3/uL 1.32-3.29 H = 731-0) MONO x10^3 (test code 0.59 10*3/uL 0.33-0.92 = 742-7) EOS x10^3 (test code = 0.51 10*3/uL 0.03-0.39 H 711-2) BASO x10^3 (test code 0.06 10*3/uL 0.01-0.07 = 704-7) Lab Interpretation Abnormal (test code = 35354-6) [facility] W/AUTO [id number] 07:27:00 Test Item Value Reference Range Interpretation [...] NORMAL code = PLTMR) AG HEPATITIS B [id number] 04:15:00 Test Item Value Reference Range Interpretation Comments AG HEPATITIS B SURFACE (test code NONREACTIVE NONREACTIVE = HBSAG) AB HEPATITIS C [id number] 04:15:00 Test Item Value Reference Range Interpretation Comments AB HEPATITIS C (test code = NONREACTIVE NONREACTIVE HCVAB) SIGNAL TO CUTOFF (test code = 0.13 <0.80 N CUTOFF) RUBELLA [id number] 04:15:00 Test Item Value Reference Range Interpretation Comments RUBELLA SCREEN 70.2 IUnit/ml Results >10. 0IUnits/ml (test code = are considered positive RUBSC) inaccordance wi th the CLSI guidelines and based on the O International S tandard for Anti-Rubell a serum as anindicator of immune status and a br eakpoint to detect mostseropositiv e persons. AB [id number] 04:15:00 Test Item Value Reference Range Interpretation Comments AB TREPONEMA (test code = TREPAB) NONREACTIVE NONREACTIVE AG HEPATITIS B [id number] 04:00:00 Test Item Value Reference Range Interpretation Comments AG HEPATITIS B SURFACE (test code NONREACTIVE NONREACTIVE = HBSAG) AB HEPATITIS C [id number] 04:00:00 Test Item Value Reference Range Interpretation Comments AB HEPATITIS C (test code = HCVAB) NONREACTIVE SIGNAL TO CUTOFF (test code = CUTOFF) <0.80 RUBELLA [id number] 04:00:00 Test Item Value Reference Range Interpretation Comments RUBELLA SCREEN 70.2 IUnit/ml Results >10. 0IUnits/ml (test code = are considered positive RUBSC) inaccordance wi th the CLSI guidelines and based on the O International S tandard for Anti-Rubell a serum as anindicator of immune status and a br eakpoint to detect mostseropositiv e persons. AB [id number] 04:00:00 Test Item Value Reference Range Interpretation Comments AB TREPONEMA (test code = TREPAB) NONREACTIVE NONREACTIVE CBC W/AUTO [id number] 00:36:00 Test Item Value Reference Range Interpretation [...]
[2022-06-16] MEDS ORDERED: DICYCLOMINE HCL 10 MG CAP ONE (15:02)
[2022-06-16] MEDS ORDERED: PROMETHAZINE INJ 25 MG/ML AMP ONE (15:02)
[2022-06-16 15:09] LABS: Urine Blood Trace-lysed (Negative); Urine Glucose Negative (Negative); Urine Protein 1+ (Negative); Urine pH 7.5 (5.0-7.0)
[2022-06-16 15:43] LABS: Urine Bacteria None Seen /HPF (<20); Urine Crystals Unidentified Few /HPF (None Seen); Urine Mucus Slight /HPF (None Seen)
[2022-06-16 15:45] LABS: Barbiturates NEGATIVE (NEGATIVE); Benzodiazepines POSITIVE (NEGATIVE); Cocaine NEGATIVE (NEGATIVE); METHAMPHETAM NEGATIVE (NEGATIVE); Methadone NEGATIVE (NEGATIVE); Opiates NEGATIVE (NEGATIVE); Phencyclidine NEGATIVE (NEGATIVE); THC Cannibis NEGATIVE (NEGATIVE)
--- NOTE | 2022-06-16 15:45 | EDPHYS ---
Physician Documentation [facility] Name: Carla Duncan Age: 26 yrs Sex: Female : 1995 Arrival Date: 06/16/2022 Time: 14:41 Bed 14 Private MD: ED Physician Maurizio Jay HPI: 06/16 14:57 This 26 yrs old Female presents to ER via Ambulatory with complaints of snw Abdominal Pain. 14:57 The patient presents with abdominal pain in the lower abdomen. Onset: The snw symptoms/episode began/occurred gradually, and became persistent 4 months ago. The symptoms do not radiate. Associated signs and symptoms: Pertinent positives: nausea and vomiting, diarrhea. The symptoms are described as crampy. Severity of pain: At its worst the pain was moderate. The patient has experienced similar episodes in the past, chronically. The patient has been recently seen by a physician: [facility] ED. 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 - Social history:: Smoking status: Patient denies any tobacco usage or history of. ROS: 14:56 Constitutional: Negative for fever, chills, and weight loss, Eyes: Negative for injury, snw pain, redness, and discharge, ENT: Negative for injury, pain, and discharge, Neck: Negative for injury, pain, and swelling, Cardiovascular: Negative for chest pain, palpitations, and edema, Respiratory: Negative for shortness of breath, cough, wheezing, and pleuritic chest pain, Back: Negative for injury and pain, : Negative for injury, bleeding, discharge, and swelling, MS/Extremity: Negative for injury and deformity, Skin: Negative for injury, rash, and discoloration, Neuro: Negative for headache, weakness, numbness, tingling, and seizure, Psych: Negative for depression, anxiety, suicide ideation, homicidal ideation, and hallucinations. 14:56 Abdomen/GI: Positive for abdominal pain, nausea, vomiting, and diarrhea. Exam: 14:56 Constitutional: This is a well developed, well nourished patient who is awake, alert, snw and in no acute distress. Head/Face: Normocephalic, atraumatic. Eyes: Pupils equal round and reactive to light, extra-ocular motions intact. Lids and lashes normal. Conjunctiva and sclera are non-icteric and not injected. Cornea within normal limits. Periorbital areas with no swelling, redness, or edema. ENT: Nares patent. No nasal discharge, no septal abnormalities noted. Tympanic membranes are normal and external auditory canals are clear. Oropharynx with no redness, swelling, or masses, exudates, or evidence of obstruction, uvula midline. Mucous membranes moist. Neck: Trachea midline, no thyromegaly or masses palpated, and no cervical lymphadenopathy. Supple, full range of motion without nuchal rigidity, or vertebral point tenderness. No Meningismus. Chest/axilla: Normal chest wall appearance and motion. Nontender with no deformity. No lesions are appreciated. Cardiovascular: Regular rate and rhythm with a normal S1 and S2. No gallops, murmurs, or rubs. Normal PMI, no JVD. No pulse deficits. Respiratory: Lungs have equal breath sounds bilaterally, clear to auscultation and percussion. No rales, rhonchi or wheezes noted. No increased work of breathing, no retractions or nasal flaring. Back: No spinal tenderness. No costovertebral tenderness. Full range of motion. Skin: Warm, dry with normal turgor. Normal color with no rashes, no lesions, and no evidence of cellulitis. MS/ Extremity: Pulses equal, no cyanosis. Neurovascular intact. Full, normal range of motion. Neuro: Awake and alert, GCS 15, oriented to person, place, time, and situation. Cranial nerves II-XII grossly intact. Motor strength 5/5 in all extremities. Sensory grossly intact. Cerebellar exam normal. Normal gait. Psych: Awake, alert, with orientation to person, place and time. Behavior, mood, and affect are within normal limits. 14:56 Abdomen/GI: Inspection: abdomen appears normal, obese Bowel sounds: normal, Palpation: mild abdominal tenderness, in the right lower quadrant and left lower quadrant. Vital Signs: 14:51 BP 105 / 79; Pulse 103; Resp 17; Temp 98.2; Pulse Ox 100% ; jl7 16:01 BP 114 / 76; Pulse 78; Resp 17; Pulse Ox 98% ; bp MDM: 14:49 Patient medically screened. snw 14:58 Data reviewed: vital signs, nurses notes. Data interpreted: Pulse oximetry: on room air snw is 100 %. Interpretation: normal. Counseling: I had a detailed discussion with the patient and/or guardian regarding: the historical points, exam findings, and any diagnostic results supporting the discharge/admit diagnosis, the need for outpatient follow up, for definitive care, pt encouraged to find a PCP and GI, discussed danger of going from ED to ED to diagnose abdominal discomfort. I discussed with pt the danger of recurrent CT evaluation and risks to include causing cancer.. Special discussion: Based on the patient's Hx, exam, and Dx evaluation, there is no indication for emergent surgery or inpatient Tx. It is understood by the patient/guardian that if the Sx's persist or worsen they need to return immediately for re-evaluation. Based on the history and exam findings, there is no indication for further emergent testing or inpatient evaluation. I discussed with the patient/guardian the need to see the service unit operator for further evaluation of the symptoms. I discussed with the patient/guardian the need to see the primary care provider for further evaluation of the symptoms. 06/16 14:48 Order name: Urine Culture snw 06/16 14:48 Order name: Urine Drug Screen; Complete Time: 15:46 snw 06/16 14:48 Order name: Urine Microscopic Only; Complete Time: 15:43 snw 06/16 15:09 Order name: Urine Dipstick-Ancillary; Complete Time: 15:21 EDMS 06/16 15:10 Order name: Urine --Ancillary (enter results) bd 06/16 14:48 Order name: Urine Dipstick-Ancillary (obtain specimen); Complete Time: 15:41 snw 06/16 14:48 Order name: Urine Test (obtain specimen); Complete Time: 15:41 snw Administered Medications: 15:05 Drug: Phenergan (promethazine) 25 mg Route: IM; Site: right gluteus; bp 16:00 Follow up: Response: No adverse reaction bp 15:05 Drug: Dicyclomine 20 mg Route: PO; bp 16:00 Follow up: Response: No adverse reaction bp Disposition: 16:20 Co-signature as Attending Physician, Maurizio Jay DO I was immediately available onsite ms3 in the emergency department for consultation in the care of the patient. Disposition Summary: 06/16/22 15:44 Discharge Ordered Location: Home snw Condition: Stable snw Diagnosis - Abdominal pain, unspecified snw Followup: snw - With: Emergency Department - When: As needed - Reason: Worsening of condition Followup: snw - With: Private Physician - When: 1 week - Reason: Recheck today's complaints, Continuance of care, Re-evaluation by your physician Discharge Instructions: - Discharge Summary Sheet snw - Abdominal Pain, Adult snw - Gas and Gas Pains, Pediatric snw - Food Choices to Help Relieve Diarrhea, Adult snw - Nausea and Vomiting, Adult snw - [place] Diet snw Forms: - Medication Reconciliation Form snw - Thank You Letter snw - Work release form bd - Antibiotic Education snw - Prescription Opioid Use snw Prescriptions: - Protonix 40 mg Oral Tablet - take 1 tablet by ORAL route once daily; 30 tablet; Refills: 0, Product snw Selection Permitted - promethazine 25 mg Oral Tablet - take 1 tablet by ORAL route every 6 hours As needed; 20 tablet; Refills: 0, snw Product Selection Permitted - dicyclomine 20 mg Oral Tablet - take 1 tablet by ORAL route 3 times per day; 30 tablet; Refills: 0, Product snw Selection Permitted Signatures: Dispatcher [employer] Mary Lopez FNP-C DATA SME-[employer] Kristina Jose RN RN Parrish Simmons RN RN Maurizio Jacobsen DO DO ms3
--- NOTE | 2022-06-16 15:45 | ER ---
Nurse's Notes [facility] Name: Carla Duncan Age: 26 yrs Sex: Female : 1995 Arrival Date: 06/16/2022 Time: 14:41 Bed 14 Private MD: Diagnosis: Abdominal pain, unspecified Presentation: 06/16 14:51 Chief complaint: Patient states: N/V/D x months. Coronavirus screen: At this time, the [facility] client does not indicate any symptoms associated with coronavirus-19. Ebola Screen: No symptoms or risks identified at this time. Initial Sepsis Screen: Does the patient meet any 2 criteria? No. Patient's initial sepsis screen is negative. Does the patient have a suspected source of infection? No. Patient's initial sepsis screen is negative. Risk Assessment: Do you want to hurt yourself or someone else? Patient reports no desire to harm self or others. Onset of symptoms is unknown. 14:51 Method Of Arrival: Ambulatory [facility] 14:51 Acuity: VENKATESH 3 jl Triage Assessment: 14:53 General: Appears in no apparent distress. uncomfortable, Behavior is calm, cooperative, jl7 appropriate for age. Pain: Complains of pain in abdomen. GI: Reports diarrhea, nausea, vomiting. 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 - Social history:: Smoking status: Patient denies any tobacco usage or history of. Screenin:01 [facility] ED Fall Risk Assessment (Adult) History of falling in the last 3 months, bp including since admission No falls in past 3 months (0 pts). Humpty Dumpty Scale Fall Assessment Tool (age< 18yrs) Age 13 years and above (1 pt). Abuse screen: Denies threats or abuse. Denies injuries from another. Nutritional screening: No deficits noted. Tuberculosis screening: No symptoms or risk factors identified. Fall Risk No fall in past 12 months (0 pts). Assessment: 15:00 General: SEE TRIAGE NOTE. bp 16:01 Reassessment: PT DC HOME AMBULATORY. bp Vital Signs: 14:51 BP 105 / 79; Pulse 103; Resp 17; Temp 98.2; Pulse Ox 100% ; jl7 16:01 BP 114 / 76; Pulse 78; Resp 17; Pulse Ox 98% ; bp ED Course: 14:41 Patient arrived in ED. jm9 14:47 [facility] V[facility]C [facility]. snw 14:47 Maurizio Jay DO is Attending Physician. snw 14:53 Triage completed. jl7 14:53 Arm band placed on right wrist. 7 14:57 Parrish Ferrera, RN is Primary Nurse. bp 16:01 Patient has correct armband on for positive identification. Bed in low position. Call bp light in reach. Side rails up X2. 16:01 No provider procedures requiring assistance completed. Patient did not have IV access bp during this emergency room visit. Administered Medications: 15:05 Drug: Phenergan (promethazine) 25 mg Route: IM; Site: right gluteus; bp 16:00 Follow up: Response: No adverse reaction bp 15:05 Drug: Dicyclomine 20 mg Route: PO; bp 16:00 Follow up: Response: No adverse reaction bp Medication: 16:01 VIS not applicable for this client. bp Outcome: 15:44 Discharge ordered by . snw 16:01 Discharged to home ambulatory. bp 16:01 Condition: stable 16:01 Discharge instructions given to patient, Instructed on discharge instructions, follow up and referral plans. medication usage, Demonstrated understanding of instructions, follow-up care, medications, Prescriptions given X 3. 16:02 Patient left the ED. bp Signatures: Mary Vee FNP-C FNP-Csnw Kristina Jose, RN RN jlParrish Nielsen, RN Aretha Brambila jm9
[2022-06-16 16:13] VITALS: TEMP 98.2
[2022-06-16 16:18] VITALS: BP 114/76; O2SAT 98
== END 2022-06-16 16:02 | disposition home or self-care (01) ==
LOC: ER 14:36
DX: R10.30 Lower abdominal pain, unspecified (principal); I10 Essential (primary) hypertension; F41.9 Anxiety disorder, unspecified; Z88.1 Allergy status to other antibiotic agents; Z88.5 Allergy status to narcotic agent
CPT/HCPCS: 87088; 87086; 81025; 80307; J2550; 81003; 81015; 96372; 99283

== ENCOUNTER 2022-07-03 03:13 | Emergency (ER) | payer OTHER ==
--- OUTSIDE RECORDS SUMMARY | 2022-07-03 03:19 | XMS REPORT | Continuity of Care Document ---
:1995 Author Organization [facility] t Address [address] [place] [address] Care Team Providers Name Role Phone Asked, No Pcp Primary Care Physician Unavailable MENDY LIRIANO Attending Clinician Unavailable Calvin AREVALO, Lorena Real Attending Clinician [phone] Mendy Liriano MD Attending Clinician IZA DENSON Attending Clinician Unavailable Jessica AREVALO, Ania Attending Clinician AFSANEH CAR Attending Clinician Unavailable Stephy SAM, Afsaneh Alarcon Attending Clinician Carlos Hernandez DO Attending Clinician Gume CERAMIC TILE INSTALLER, Akiko Attending Clinician Rivera PAC, John S Attending Clinician Troy PAC, Tricia Teixeira Attending Clinician RIVERA, JOHN S Attending Clinician Unavailable Wild Cowart MD Attending Clinician Dani Kauffman DO Attending Clinician LORENA SIMPSON Admitting Clinician Unavailable Wild Barrera Admitting Clinician Unavailable Payers Payer Name Policy Type Policy Number Effective Date Expiration Date S shobha DELGADOR FROM [id number] 2020 [facility] 00:00:00 [facility] [id number] 2019 00:00:00 Problems Condition Condition Condition Status Onset Resolution Last Treating Co mments Source Name Details Category Date Date Treatment Clinician Date Obesity Obesity Disease Active Univers (BMI (BMI 1-16 ity of 30-39.9) 30-39.9) 00:00: [place] [address] Medical Branch Urinary Urinary Disease Active Univers [...] 2-04 [facility] [place] butorpha DA Active [place] tachycardic [facility] nol 2-04 [facility] [place] BUTORPHA DRUG Active Palpitations Un carolann NOL [...] 00 l [facility] [place] codeine DA Active MA 2018- [facility] 1-19 [facility] 00:[facility]: [facility] [place] morphine DA Active U SWELLING [facility] 1-19 [facility] 00:[facility]: [facility] [place] codeine DA Active MA nausea, [facility] headache 1-19 [facility] 00:[facility]: [facility] [place] tramadol DA Active MA 2017- [facility] 2-31 [facility] 00:[facility]: [facility] [place] tramadol DA Active MA CHEST PAIN 2018- [facility] 2-31 [facility] 00:[facility]: [facility] [place] ACETAMIN DRUG Active High SOB Univers OPHEN-CO [...] Source Natural mother Menstrual problems [facility] Natural mother Diabetes [facility] Social History Social Habit Start Date Stop Date Quantity Comments Source Exposure to 2022-05-18 2022-05-28 Not sure University of SARS-CoV-2 00:00:00 17:41:00 [facility] [place] [facility] (event) Branch Tobacco use and 2022-03-26 2022-03-26 Smokeless tobacco [facility] exposure 00:00:00 00:00:00 non-user Alcohol intake 2022-03-26 2022-03-26 Current drinker [facility] 00:00:00 00:00:00 of alcohol (finding) Alcohol Comment 2016-04-28 2016-04-28 social, weekly [facility] 00:00:00 00:00:00 Sex Assigned At [birth year] [facility] 00:00:00 00:00:00 Smoking Status Start Date Stop Date Source Never smoked tobacco [facility] Medications Ordered Filled Start Stop Current Ordering Indication Dosage Frequency Signature Comments Components Source Medication Medication Date Date Medication? Clinician (SIG) Name Name diphenhydrA 2021-06 No 25mg 25 mg, Uni vers MINE 07-30 Oral, ity of (BENADRYL) 04:30: 04:21 ONCE, 1 Ryan as tablet 25 00 :00 dose, On Medica l mg [facility] 05/28/22 at 2230, RODRICK FENTanyl PF 2021-06 No 75ug 75 mcg, Un carolann (SUBLIMAZE 07-30 Slow IV ity o f (PF)) 04:30: 03:51 Push, [place] injection 00 :00 ONCE, 1 Medical 75 mcg dose, On [facility] 05/28/22 at 2230, Routine doxycycline 2021-06 No 100mg 100 mg, U nivers hyclate 07-30 Oral, ity of (Vibramycin 03:45: 03:51 [place] capsule [place] :00 dose, On Medica l 100 mg [facility] 05/28/22 at 2145, RODRICK
Re ason for Anti-Infec tive: Documented Infection< br>Documen jd Infection Site: Pelvic
Duration of Therapy: Other (see Comments) morpHINE (4 2021-06 No 4mg 4 mg, Slow Univers mg/mL) 07-30 IV Push, ity of injection 4 02:30: 02:47 [place]CE[place] mg 00 :[place] dose, On Medical [facility] 05/28/22 at 2030, STAT ketorolac 2021-06 No 15mg 15 mg, Unive rs (TORADOL) 07-30 Slow IV ity of injection 01:45: 01:01 [place], [place] 15 mg 00 :00 ONCE, 1 Medical dose, On [facility] 05/28/22 at 1945, Routine iopamidol 2021-06 No [id number] 75mL 75 mL, Univers (ISOVUE 07-30 Intravenou [...] 05/28/22 at 1815, RODRICK metroNIDAZO 2021-06 Yes [id number] 500mg Take 1 Univers LE 500 mg 07-29 tablet by ity o f tablet 00:00: mouth in [place] 00 the Medical morning Branch and 1 tablet in the evening. doxycycline 2021-06- Yes [id number] 100mg Take 1 Univers hyclate 100 07-29 [...] (eight) hours as needed for mild pain. ibuprofen 2022-0 Yes 800mg Q8H Take 1 [...] hours as needed for nausea or vomiting. ondansetron 2022-0 Yes 4mg Q8H Take 1 Meth shamir ODT 9-29 tablet (4 st (ZOFRAN-ODT 00:00: mg total) H ospita ) 4 MG 00 by mouth l disintegrat every 8 ing tablet (eight) hours as needed for nausea or vomiting. ibuprofen 2-0 Yes 800mg Q8H Take 1 Metho di [...] 0.5 mg ity of tablet 12:44: tablet [facility] bupropion Yes bupropion Uni vers HBr 02-28 HBr ity of (APLENZIN 12:44: [place] ORAL) [facility] FLUoxetine Yes fluoxetine U nivers 20 mg 02-28 20 mg ity of capsule 12:44: capsule [place] [facility] famotidine 2021- No 20mg 20 mg, Univ ers (PEPCID AC) 02-27 Oral, ity of tablet 20 05:00: 05:00 ONCE, [place] mg 00 :00 dose, On Wed02/27/22 Branch at 0000, RODRICK ALPRAZolam 2021- No 1mg 1 mg, Unive rs (XANAX) 02-27 Oral, ity of tablet 1 mg 05:00: 05:00 [place]CE[place] :[place] dose, On Wed02/27/22 Branch at 0000, RODRICK ALPRAZolam Yes alprazolam U nivers 0.5 mg 02-26 0.5 mg ity of tablet 23:48: tablet [facility] bupropion Yes bupropion Uni vers HBr 02-26 HBr ity of (APLENZIN 23:48: [place] ORAL) 29 Medical Branch FLUoxetine 2021-0 Yes fluoxetine U nivers 20 mg 02-26 20 mg ity of capsule 23:48: capsule [address] ciprofloxac 2021-0 2022- No 500mg Q.5D Take 1 Me thodi in (CIPRO) 02-[address] 500 MG 00:00: 04:59 (500 mg Hospita tablet 00 :00 total) by l mouth 2 (two) times a day for 7 days. ciprofloxac 2021-0 2022- No 500mg Q.5D Take 1 Me thodi in (CIPRO) 02-[address] 500 MG 00:00: 04:59 (500 mg Hospita tablet 00 :00 total) by l mouth 2 (two) times a day for 7 days. ciprofloxac 2021-0 2022- No 500mg Q.5D Take 1 Me thodi in (CIPRO) 02-[address] 500 MG 00:00: 04:59 (500 mg Hospita tablet 00 :00 total) by l mouth 2 (two) times a day for 7 days. ciprofloxac 2021-0 2022- No 500mg Q.5D Take 1 Me thodi in (CIPRO) 02-[address] 500 MG 00:00: 04:59 (500 mg Hospita tablet 00 :00 total) by l mouth 2 (two) times a day for 7 days. ciprofloxac 2021-0 2022- No 500mg Q.5D Take 1 Me thodi in (CIPRO) 02-[address] 500 MG 00:00: 04:59 (500 mg Hospita tablet 00 :00 total) by l mouth 2 (two) times a day for 7 days. ciprofloxac 2-0 2022- No 500mg Q.5D Take 1 Me thodi in (CIPRO) 02-[address] 500 MG 00:00: 04:59 (500 mg Hospita tablet 00 :00 total) by l mouth 2 (two) times a day for 7 days. ciprofloxac 2-0 2022- No 500mg Q.5D Take 1 Me thodi in (CIPRO) 02-[address] 500 MG 00:00: 04:59 (500 mg Hospita tablet 00 :00 total) by l mouth 2 (two) times a day for 7 days. phenazopyri 2021-0 2021- No 200mg Q.[id number] Take 1 Methodi dine 02-[id number] (PYRIDIUM) 00:00: 04:59 3D (200 mg Hos radha 200 MG 00 :00 total) by l tablet mouth 3 (three) times a day for 3 days. phenazopyri 2021-0 2021- No 200mg Q.[id number] Take 1 Methodi dine 02-[id number] (PYRIDIUM) 00:00: 04:59 3D (200 mg Hos radha 200 MG 00 :00 total) by l tablet mouth 3 (three) times a day for 3 days. phenazopyri 2021-0 2021- No 200mg Q.[id number] Take 1 Methodi dine 02-[id number] (PYRIDIUM) 00:00: 04:59 3D (200 mg Hos radha 200 MG 00 :00 total) by l tablet mouth 3 (three) times a day for 3 days. phenazopyri 2021-0 2021- No 200mg Q.[id number] Take 1 Methodi dine 02-[id number] (PYRIDIUM) 00:00: 04:59 3D (200 mg Hos radha 200 MG 00 :00 total) by l tablet mouth 3 (three) times a day for 3 days. phenazopyri 2021-0 2021- No 200mg Q.[id number] Take 1 Methodi dine 02-[id number] (PYRIDIUM) 00:00: 04:59 3D (200 mg Hos radha 200 MG 00 :00 total) by l tablet mouth 3 (three) times a day for 3 days. phenazopyri 2021-0 2021- No 200mg Q.[id number] Take 1 Methodi dine 02-[id number] (PYRIDIUM) 00:00: 04:59 3D (200 mg Hos radha 200 MG 00 :00 total) by l tablet mouth 3 (three) times a day for 3 days. phenazopyri 2021- No 200mg Q.[id number] Take 1 Methodi dine 8-24 08-[id number] (PYRIDIUM) 00:00: 04:59 3D (200 [...] Ryan as tablet 25 00 :00 dose, [facility] Medic al mg 12/31/20 at Branch 0415, RODRICK ibuprofen No 800mg 800 mg, Uni vers (IBU) 12-31 Oral, ity of tablet 800 08:00: 07:17 ONCE, 1 [place] as mg 00 :00 dose, [facility] Medical 12/31/20 at Branch 0300, RODRICK methocarbam 2020- No 1000mg 1,000 mg, Univers oL 12-31 Oral, ONCE ity of (ROBAXIN) 08:00: 07:17 NOW, 1 [place] tablet 00 :00 dose, [facility] Medical 1,000 mg 12/31/20 at Branch 0300, RODRICK ibuprofen Yes [id number] 800mg Take 1 U nivers 800 mg 7-06 tablet by ity of tablet 00:00: mouth [place] 00 every 8 Medical (eight) Branch hours as needed for Pain (scale 4-6). cyclobenzap Yes [id number] 10mg Take 1 Univers rine 10 mg 7-06 tablet by ity of tablet 00:00: mouth 3 [place] 00 (three) Medical times Branch daily as needed for Muscle Spasms. ibuprofen 2021- No [id number] 800mg Take 1 Univers 800 mg 12-31 tablet by ity of tablet 00:00: 00:00 mouth [place] 00 :00 every 8 Medical (eight) Branch hours as needed for Pain (scale 4-6). cyclobenzap No [id number] 10mg Take 1 Univers rine 10 mg [...] IV Medical Infusion, Branch ONCE, 1 dose, [facility] 11/20/20 at 1530, STAT metoclopram 2020- No 10mg 10 mg, Uni vers dio HCl 11-20 Slow IV ity of (REGLAN) 20:15: 19:18 Push, [place] injection 00 :00 ONCE, 1 Medical 10 mg dose, [facility] 11/20/20 at 1515, RODRICK ketorolac 2020- No 30mg 30 mg, Unive rs (TORADOL) 11-20 Slow IV ity of injection 20:15: 19:18 Push, [place] 30 mg 00 :00 ONCE, 1 Medical dose, [facility] 11/20/20 at 1515, RODRICK
Fa culty member approving Restricted medication : JOHN RIVERA diphenhydrA 2020- No 25mg 25 mg, Uni vers MINE 11-20 Slow IV ity of (BENADRYL) 20:15: 20:15 Push, [place] injection 00 :00 ONCE, 1 Medical 25 mg dose, [facility] 11/20/20 at 1515, STAT butalbital- Yes 1{tbl} 1 tablet, Univers acetaminoph 5-26 Oral, ity of en-caff 18:12: Q4HPRN, [place] (ESGIC) 27 Starting Medical 50-325-40 Wed Branch mg tablet 1 11/20/20 at tablet 1312, Until Discontinu ed, Routine, zofran ketorolac 2020-0 Yes [id number] 10mg Take 1 Un carolann 10 mg 5-26 tablet by ity of tablet 00:00: mouth [place] 00 every 6 Medical (six) Branch hours as needed for Pain (scale 4-6). cyclobenzap Yes [id number] 10mg Take 1 Univers rine 10 mg 5-26 tablet by ity of tablet 00:00: mouth 3 [place] 00 (three) Medical times Branch daily. ketorolac 2020-0 Yes [id number] 10mg Take 1 Un carolann 10 mg 5-26 tablet by ity of tablet 00:00: mouth [place] 00 every 6 Medical (six) Branch hours as needed for Pain (scale 4-6). cyclobenzap Yes [id number] 10mg Take 1 Univers rine 10 mg 5-26 tablet by ity of tablet 00:00: mouth 3 [place] 00 (three) Medical times Branch daily. ketorolac 2021- No [id number] 10mg Take 1 U nivers 10 mg 5-26 09- tablet by ity of tablet 00:00: 00:00 mouth [place] 00 :00 every 6 Medical (six) Branch hours as needed for Pain (scale 4-6). cyclobenzap 2021- No [id number] 10mg Take 1 Univers rine 10 mg [...] Branch at 2245, RODRICK ondansetron 0 Yes [id number] 4mg Take 1 Univers (ZOFRAN 4-01 tablet by ity of ODT) 4 mg 00:00: mouth [place] disintegrat 00 every 8 Medic al ing tablet (eight) Branch hours as needed for Nausea and Vomiting (N/V). ondansetron Yes [id number] 4mg Take 1 Univers (ZOFRAN 4-01 tablet by ity of ODT) 4 mg 00:00: mouth [place] disintegrat 00 every 8 Medic al ing tablet (eight) Branch hours as needed for Nausea and Vomiting (N/V). ondansetron Yes [id number] 4mg Take 1 Univers (ZOFRAN 4-01 tablet by ity of ODT) 4 mg 00:00: mouth [place] disintegrat 00 every 8 Medic al ing tablet (eight) Branch hours as needed for Nausea and Vomiting (N/V). ondansetron 2021- No [id number] 4mg Take 1 Univers (ZOFRAN 4-01 09-01 tablet by ity of ODT) 4 mg 00:00: 00:00 mouth [place] disintegrat 00 :00 every 8 Medic al ing tablet (eight) Branch hours as needed for Nausea and Vomiting (N/V). proMETHazin 0 Yes [id number] 25mg Take 1 Univers e 25 mg 2-09 tablet by ity of tablet 00:00: mouth [place] 00 every 6 Medical (six) Branch hours as needed for Nausea and Vomiting (N/V). proMETHazin 0 Yes [id number] 25mg Take 1 Univers e 25 mg 2-09 tablet by ity of tablet 00:00: mouth [place] 00 every 6 Medical (six) Branch hours as needed for Nausea and Vomiting (N/V). proMETHazin Yes [id number] 25mg Take 1 Univers e 25 mg 2-09 tablet by ity of tablet 00:00: mouth [place] 00 every 6 Medical (six) Branch hours as needed for Nausea and Vomiting (N/V). proMETHazin 2021- No [id number] 25mg Take 1 Univers e 25 mg 08-06- tablet by ity of tablet 00:00: 00:00 [...]
Fa culty member approving Restricted medication : LEONEL, WILD E NaCl 0.9% 2020- No 1000mL at [...] No 1{packe Take 1 Uni vers vit 11-23 t} Packet by ity of 33-iron-fol 00:00: 00:00 [place] ic-dha 00 :00 daily. Medical (SELECT-OB Branch + DHA) 29 mg iron-1 mg -250 mg combo pack Immunizations Ordered Filled Immunization Date Status Comments [facility] Immunization Name Name Td 2011-06-28 Completed University of 00:00:00 [facility] Td 2011-06-28 Completed University of 00:00:00 [facility] Td 2011-06-28 Completed University of 00:00:00 [facility] Td 2011-06-28 Completed University of 00:00:00 [facility] Td 2011-06-28 Completed University of 00:00:00 [facility] Td 2011-06-28 Completed University of 00:00:00 [facility] Vital Signs Vital Name Observation Time Observation Value Comments Source Systolic blood 2022-05-29 04:19:00 123 mm[Hg] Univer sity of [facility] Diastolic blood 2022-05-29 04:19:00 87 mm[Hg] Unive rsity of [facility] Heart rate 2022-05-29 04:19:00 93 /min [facility] Respiratory rate 2022-05-29 04:19:00 18 /min [facility] Oxygen saturation in 2022-05-29 04:19:00 97 /min [facility] Arterial blood by [facility] Pulse oximetry Branch Body temperature 2022-05-28 23:42:00 37.11 [place] [facility] Body height 2022-05-28 23:42:00 152.4 cm [facility] Systolic blood 2022-02-27 05:31:00 130 mm[Hg] Univer sity of [facility] Diastolic blood 2022-02-27 05:31:00 87 mm[Hg] Unive rsity of [facility] Heart rate 2022-02-27 05:31:00 98 /min [facility] Respiratory rate 2022-02-27 05:31:00 18 /min Univ ersity of [place] [facility] Oxygen saturation in 2022-02-27 05:31:00 99 /min University of Arterial blood by [facility] Pulse oximetry Branch Body height 2022-02-27 03:38:00 152.4 cm Universi ty [facility] [place] [facility] Body weight 2022-02-27 03:38:00 82.101 kg Universi ty [facility] [place] [facility] BMI 2022-02-27 03:38:00 35.35 kg/m2 [facility]i ty [facility] [place] [facility] Body temperature 2022-02-27 03:36:00 36.28 [place] Univ ersity [facility] [place] [facility] Systolic blood 2020-12-31 06:49:00 125 mm[Hg] Univer sity of pressure [place] [facility] Diastolic blood 2020-12-31 06:49:00 93 mm[Hg] Unive rsity of pressure [place] [facility] Heart rate 2020-12-31 06:49:00 104 /min Universi ty [facility] [place] [facility] Body temperature 2020-12-31 06:49:00 36.83 [place] Univ ersity [facility] [place] [facility] Respiratory rate 2020-12-31 06:49:00 15 /min Univ ersity of [place] [facility] Body height 2020-12-31 06:49:00 152.4 cm [facility]i ty [facility] [place] [facility] Body weight 2020-12-31 06:49:00 92.5 kg [facility]i [facility] [place] [facility] BMI 2020-12-31 06:49:00 39.83 kg/m2 Universi ty [facility] [place] [facility] Oxygen saturation in 2020-12-31 06:49:00 99 /min University of Arterial blood by [facility] Pulse oximetry Branch Systolic blood 2020-12-31 06:49:00 125 mm[Hg] Univer sity of pressure [place] [facility] Diastolic blood 2020-12-31 06:49:00 93 mm[Hg] Unive rsity of pressure [place] [facility] Heart rate 2020-12-31 06:49:00 104 /min Universi ty [facility] [place] [facility] Body temperature 2020-12-31 06:49:00 36.83 [place] Univ ersity of [place] [facility] Respiratory rate 2020-12-31 06:49:00 15 /min Univ ersity of [place] [facility] Body height 2020-12-31 06:49:00 152.4 cm Universi ty [facility] [place] [facility] Body weight 2020-12-31 06:49:00 92.5 kg Universi ty [facility] [place] [facility] BMI 2020-12-31 06:49:00 39.83 kg/m2 Universi ty of [place] [facility] Oxygen saturation in 2020-12-31 06:49:00 99 /min University of Arterial blood by [facility] Pulse oximetry Branch Systolic blood 2020-11-20 19:58:00 146 mm[Hg] Univer sity of pressure [place] [facility] Diastolic blood 2020-11-20 19:58:00 95 mm[Hg] Unive rsity of pressure [place] [facility] Heart rate 2020-11-20 19:58:00 98 /min Universi ty of [place] [facility] Body temperature 2020-11-20 19:58:00 37.17 [place] Univ ersity [facility] [place] [facility] Respiratory rate 2020-11-20 19:58:00 17 /min Univ ersity of [place] [facility] Oxygen saturation in 2020-11-20 19:58:00 100 /min University of Arterial blood by [facility] Pulse oximetry Branch Body weight 2020-11-20 16:43:00 92.534 kg Universi ty [facility] [place] [facility] BMI 2020-11-20 16:43:00 39.84 kg/m2 Universi ty [facility] [place] [facility] Systolic blood 2020-11-20 19:58:00 146 mm[Hg] Univer sity of pressure [place] [facility] Diastolic blood 2020-11-20 19:58:00 95 mm[Hg] Unive rsity of pressure [place] [facility] Heart rate 2020-11-20 19:58:00 98 /min Universi ty [facility] [place] [facility] Body temperature 2020-11-20 19:58:00 37.17 [place] Univ ersity [facility] [place] [facility] Respiratory rate 2020-11-20 19:58:00 17 /min Univ ersity of [place] [facility] Oxygen saturation in 2020-11-20 19:58:00 100 /min University of Arterial blood by [facility] Pulse oximetry Branch Body weight 2020-11-20 16:43:00 92.534 kg [facility]i ty [facility] [place] [facility] BMI 2020-11-20 16:43:00 39.84 kg/m2 [facility]i [facility] [place] [facility] Body height 2020-09-26 23:49:00 152.4 cm [facility]i ty [facility] [place] [facility] Body weight 2020-09-26 23:49:00 90.719 kg [facility]i ty [facility] [place] [facility] BMI 2020-09-26 23:49:00 39.06 kg/m2 [facility] [place] [facility] Systolic blood 2020-09-26 23:45:00 103 mm[Hg] Univer sity of pressure [place] [facility] Diastolic blood 2020-09-26 23:45:00 62 mm[Hg] Unive rsity of pressure [place] [facility] Heart rate 2020-09-26 23:45:00 107 /min Universi ty [facility] [place] [facility] Body temperature 2020-09-26 23:45:00 36.61 [place] Univ ersity [facility] [place] [facility] Respiratory rate 2020-09-26 23:45:00 18 /min Univ ersity of [place] [facility] Oxygen saturation in 2020-09-26 23:45:00 97 /min University of Arterial blood by [employer] Pulse oximetry Branch Body height 2020-09-26 23:49:00 152.4 cm [facility]i ty [facility] [place] [facility] Body weight 2020-09-26 23:49:00 90.719 kg [facility]i ty [facility] [place] [facility] BMI 2020-09-26 23:49:00 39.06 kg/m2 [facility] [place] [facility] Systolic blood 2020-09-26 23:45:00 103 mm[Hg] Univer sity of pressure [place] [facility] Diastolic blood 2020-09-26 23:45:00 62 mm[Hg] Unive rsity of pressure [place] [facility] Heart rate 2020-09-26 23:45:00 107 /min Universi ty [facility] [place] [facility] Body temperature 2020-09-26 23:45:00 36.61 [place] Univ ers[facility] [place] [facility] Respiratory rate 2020-09-26 23:45:00 18 /min Univ ersity of [place] [facility] Oxygen saturation in 2020-09-26 23:45:00 97 /min University of Arterial blood by [employer] Pulse oximetry Branch Systolic blood 2020-07-17 14:00:00 112 mm[Hg] Univer sity of pressure [place] [facility] Diastolic blood 2020-07-17 14:00:00 65 mm[Hg] Unive rsity of pressure [facility] Heart rate 2020-07-17 14:00:00 86 /min Universi ty of [facility] Respiratory rate 2020-07-17 14:00:00 20 /min Univ ersity of [facility] [place] [facility] Oxygen saturation in 2020-07-17 14:00:00 100 /min University of Arterial blood by [facility] Pulse oximetry Branch Body temperature 2020-07-17 11:50:00 37.22 [place] Univ ersity of [facility] Body weight 2020-07-17 11:50:00 86.183 kg Universi ty of [place] [facility] [place] BMI 2020-07-17 11:50:00 37.11 kg/m2 Universi ty of [facility] [place] [facility] Systolic blood 2020-07-17 14:00:00 112 mm[Hg] Univer sity of pressure [facility] Diastolic blood 2020-07-17 14:00:00 65 mm[Hg] Unive rsity of pressure [facility] Heart rate 2020-07-17 14:00:00 86 /min Universi ty of [place] [facility] [place] Respiratory rate 2020-07-17 14:00:00 20 /min Univ ersity of [facility] Oxygen saturation in 2020-07-17 14:00:00 100 /min University of Arterial blood by [facility] Pulse oximetry Branch Body temperature 2020-07-17 11:50:00 37.22 [place] [facility] Body weight 2020-07-17 11:50:00 86.183 kg Universi ty [facility] Medical [place] BMI 2020-07-17 11:50:00 37.11 kg/m2 Universi [facility] Systolic blood 2022-03-26 13:44:00 139 mm[Hg] [facility] pressure Diastolic blood 2022-03-26 13:44:00 83 mm[Hg] [facility] pressure Heart rate 2022-03-26 13:44:00 101 /min [facility] Respiratory rate 2022-03-26 13:44:00 18 /min [facility] Oxygen saturation in 2022-03-26 13:44:00 100 /min [facility] Arterial blood by Pulse oximetry Body temperature 2022-03-26 12:32:00 36.72 [place] [facility] Body height 2022-03-26 12:32:00 157.5 cm [facility] Body weight 2022-03-26 12:32:00 85.276 kg [facility] BMI 2022-03-26 12:32:00 34.39 kg/m2 [facility] Procedures Procedure Date / Time Performing Clinician Source Performed US PELVIS COMPLETE WITH 2022-05-29 02:07:00 Lorena Simpson Un [facility] TRANSVAGINAL [facility] CT ABDOMEN PELVIS W 2022-05-29 00:28:13 [place] [facility] CONTRAST [facility] COMP. METABOLIC PANEL 2022-05-29 00:07:00 Lorena Simpson [facility] ([id number]) [facility] [place] CBC WITH DIFF 2022-05-29 00:07:00 Lorena Simpson [facility] URINALYSIS 2022-05-28 23:56:00 Lorena Simpson [facility] POCT TEST 2022-05-28 23:53:00 Lorena Simpson [facility] CONSENT/REFUSAL FOR 2022-05-28 23:40:29 Doctor Unassigned, No Un [facility] DIAGNOSIS AND TREATMENT Name [facility] URINALYSIS 2022-03-26 13:06:00 [facility] QUALITATIVE, URINE 2022-03-26 13:06:00 [facility] SCREEN URINALYSIS 2022-03-26 13:06:00 [facility] HCG QUALITATIVE, URINE 2022-03-26 13:06:00 [facility] SCREEN CBC WITH PLATELET AND 2022-03-26 12:46:00 [facility] Ania [facility] DIFFERENTIAL COMPREHENSIVE METABOLIC 2022-03-26 12:46:00 [facility] PANEL ESTIMATED GFR 2022-03-26 12:46:00 [facility] CBC WITH PLATELET AND 2022-03-26 12:46:00 Ania Lopez [facility] DIFFERENTIAL POCT TEST 2022-02-27 04:56:00 Afsaneh Car [facility] LIPASE 2022-02-27 04:04:00 Afsaneh Car [facility] TROPONIN I 2022-02-27 04:04:00 Afsaneh Car [facility] THYROID STIMULATING 2022-02-27 04:04:00 Afsaneh Car [facility] HORMONE [facility] COMP. METABOLIC PANEL 2022-02-27 04:04:00 Afsaneh Car [facility] ([id number]) [facility] CBC WITH DIFF 2022-02-27 04:04:00 Afsaneh Car [facility] URINALYSIS 2022-02-27 03:56:00 Afsaneh Car [facility] URINE DRUG (IMMUNOASSAY) 2022-02-27 03:56:00 [facility]h [facility] DR[facility] Medical Bra [facility] SCREEN W/O REFLEX NOTICE OF PRIVACY 2022-02-27 03:05:57 Doctor Unassigned, No [facility] PRACTICES Name [facility] CONSENT/REFUSAL FOR 2022-02-27 03:04:00 Doctor Unassigned, No [facility] Name [facility] COMPREHENSIVE METABOLIC 2022-02-18 05:17:00 Carlos Hernandez [facility] PANEL ESTIMATED GFR 2022-02-18 05:17:00 Carlos Hernandez spital COMPREHENSIVE METABOLIC 2022-02-18 04:38:00 Carlos Hernandez [facility] PANEL ESTIMATED GFR 2022-02-18 04:38:[address] ABDOMEN PELVIS WO 2022-02-18 04:17:[facility] 2022-02-18 04:00:00 Carlos Hernandez spital CBC WITH PLATELET AND 2022-02-18 04:00:00 Carlos Hernandez [facility] DIFFERENTIAL COMPREHENSIVE METABOLIC 2022-02-18 04:00:00 Carlos Hernandez [facility] PANEL ESTIMATED GFR 2022-02-18 04:00:00 Carlos Hernandez Ho spital HCG QUALITATIVE, URINE 2022-02-18 02:50:00 [facility] 2022-02-18 02:50:00 Carlos Hernandez spital RAPID STREP SCREEN FOR 2020-12-31 07:13:00 Akiko Dunaway [facility] GROUP A Medical Branch NOTICE OF PRIVACY 2020-12-31 06:34:54 Doctor Unassigned, No [facility] PRACTICES Name [facility] CONSENT/REFUSAL FOR 2020-12-31 06:34:35 Doctor Unassigned, [facility] HEAD WO CONTRAST 2020-11-20 18:18:22 John Rivera [facility] POCT TEST 2020-11-20 17:50:00 John Rivera [facility] BASIC METABOLIC PANEL 2020-11-20 17:24:00 John Rivera [facility] (NA, K, CL, CO2, Medical Branch GLUCOSE, BUN, CREATININE, CA) CBC WITH DIFF 2020-11-20 17:24:00 John Rivera [facility] CONSENT/REFUSAL FOR 2020-11-20 16:36:59 Doctor Unassigned, [facility] POCT TEST 2020-09-27 02:56:00 Tricia Herbert [facility] ASSIGNMENT OF BENEFITS 2020-09-27 01:35:31 Doctor Unassigned, No [facility] Branch CONSENT/REFUSAL FOR 2020-09-26 23:26:24 Doctor Unassigned, No [facility]MENT [facility] URINALYSIS 2020-07-17 14:08:00 Wild Cowart [facility] POCT TEST 2020-07-17 14:08:00 Wild Cowart [facility] CBC WITH DIFF 2020-07-17 12:25:00 Wild Cowart [facility] NOTICE OF PRIVACY 2020-07-17 11:48:39 Doctor Unassigned, No [facility] Medical Branch CONSENT/REFUSAL FOR 2020-07-17 11:44:41 Doctor Unassigned, No Un [facility] TREATMENT Name [facility] Plan of Care Planned Activity Planned Date Details Comments Source Future Scheduled 2022-06-20 COVID-[facility]INE [facility] 00:27:46 (#1) [code = COVID-19 VACCINE (#1)] Future Scheduled 2022-06-20 [facility] 00:27:46 screening (procedure) [code = 474989965] Future Scheduled 2022-06-20 [facility] Test 00:27:46 malignant neoplasm of cervix (procedure) [code = 085792159] Future Scheduled 2022-06-20 [facility]ENZA VACCINE [facility] 00:27:46 [code = INFLUENZA VACCINE] Future Scheduled 2022-06-12 [facility]INE [facility] 16:29:41 (#1) [code = COVID-19 VACCINE (#1)] Future Scheduled 2022-06-12 [facility] 16:29:41 screening (procedure) [code = 061301719] Future Scheduled 2022-06-12 [facility]ACCINE [facility] 16:29:41 [code = INFLUENZA VACCINE] Future Scheduled 2022-04-29 [facility]ITIS B [facility] 09:57:18 VACCINES (1 of 3 - 3-dose series) [code = HEPATITIS B VACCINES (1 of 3 - 3-dose series)] Future Scheduled 2022-04-29 COVID-[address] [facility] Test 09:57:18 (#1) [code = COVID-19 VACCINE (#1)] Future Scheduled 2022-04-29 [facility] Test 09:57:18 screening (procedure) [code = 437541519] Future Scheduled 2022-04-29 [facility] Test 09:57:18 malignant neoplasm of cervix (procedure) [code = 042102629] Future Scheduled 2022-04-29 [facility]ACCINE [facility] 09:57:18 [code = INFLUENZA VACCINE] Future Scheduled 2022-03-26 [facility]ITIS B [facility] 18:56:00 VACCINES (1 of 3 - 3-dose series) [code = HEPATITIS B VACCINES (1 of 3 - 3-dose series)] Future Scheduled 2022-03-26 [facility]ACCINE [facility] 18:56:00 (#1) [code = COVID-19 VACCINE (#1)] Future Scheduled 2022-03-26 [facility] Test 18:56:00 screening (procedure) [code = 855004988] Future Scheduled 2022-03-26 [facility] Test 18:56:00 malignant neoplasm of cervix (procedure) [code = 184954334] Future Scheduled 2022-03-26 [facility]ZA [facility]ACCINE [facility] 18:56:00 [code = INFLUENZA VACCINE] Future Scheduled 2022-03-26 [facility]ITIS B [facility] 18:56:00 VACCINES (1 of 3 - 3-dose series) [code = HEPATITIS B VACCINES (1 of 3 - 3-dose series)] Future Scheduled 2022-03-26 [facility]00 (#1) [code = COVID-19 VACCINE (#1)] Future Scheduled 2022-03-26 [facility] Test 18:56:00 screening (procedure) [code = 450918587] Future Scheduled 2022-03-26 [facility] Test 18:56:00 malignant neoplasm of cervix (procedure) [code = 321498918] Future Scheduled 2022-03-26 INFLUENZA VACCINE [facility] Test 18:56:00 [code = INFLUENZA VACCINE] Future Scheduled 2022-03-26 [facility]ITIS B [facility] 18:56:00 VACCINES (1 of 3 - 3-dose series) [code = HEPATITIS B VACCINES (1 of 3 - 3-dose series)] Future Scheduled 2022-03-26 [facility]INE [facility] 18:56:00 (#1) [code = COVID-19 VACCINE (#1)] Future Scheduled 2022-03-26 [facility] Test 18:56:00 screening (procedure) [code = 225769556] Future Scheduled 2022-03-26 [facility] Test 18:56:00 malignant neoplasm of cervix (procedure) [code = 047433625] Future Scheduled 2022-03-26 [facility]ZA [facility]ACCINE [facility] Test 18:56:00 [code = INFLUENZA VACCINE] Future Scheduled 2022-03-26 HE[facility]ITIS B [facility] Test 08:33:14 VACCINES (1 of 3 - 3-dose series) [code = HEPATITIS B VACCINES (1 of 3 - 3-dose series)] Future Scheduled 2022-03-26 COVID-[address] [facility] Test 08:33:14 (#1) [code = COVID-19 VACCINE (#1)] Future Scheduled 2022-03-26 [facility] Test 08:33:14 screening (procedure) [code = 883070248] Future Scheduled 2022-03-26 [facility] Test 08:33:14 malignant neoplasm of cervix (procedure) [code = 420651012] Future Scheduled 2022-03-26 [facility]ZA VACCINE [facility] Test 08:33:14 [code = INFLUENZA VACCINE] Future Scheduled COVID-[address] [facility] Test (1) [code = COVID-19 VACCINE (1)] Future Scheduled [facility] screening (procedure) [code = 809074924] Future Scheduled [facility] for [facility] Test malignant neoplasm of cervix (procedure) [code = 600992714] Future Scheduled INFLUENZA VACCINE [facility] Test [code = INFLUENZA VACCINE] Encounters Start End Encounter Admission Attending Care Care Encounter Source Date/Time Date/Time Type Type Clinicians Facility Department ID 2021-04-28 Emergency [facility] [id number] Univers 06:08:31 ity [facility] 2021-04-27 Emergency [facility] [id number] Univers 21:27:31 ity [facility] 2021-04-27 Emergency [facility] [id number] Univers 10:13:04 ity [facility] 2021-04-26 Emergency [facility] [id number] Univers 18:11:30 ity [facility] 2022-05-28 2022-05-28 Emergency Kami LIRIANO [facility] ERT [id number] Univers 17:47:00 22:35:00 MENDY [facility] 2022-05-28 2022-05-28 Emergency Lorena Simpson [facility] 1.2.840.114 [id number] [facility] 17:47:00 22:35:00 [facility] 4.2.7[facility]2.686 [facility] [phone] [address] 2022-04-22 2022-04-22 Emergency E AZNAUROVA-A MHBL MHBL 7500 MHBL 08:53:00 14:18:00 NANJENNIFER ZIA 2022-03-26 2022-03-26 Emergency Sammy 1.2.840.1 [id number] Methodi 07:24:00 08:46:[address] 3.430.2.7 Hospit a .3.286340 l .8 2022-03-26 2022-03-26 Emergency Sammy 1.2.840.1 [id number] Methodi 07:24:00 08:46:[address] 3.430.2.7 Hospit a .3.132961 l .8 2022-03-26 2022-03-26 Travel 1.2.840.1 1.2.695.910 [id number] Methodi 00:00:00 00:00:[address] 3.430.2.7 0.2.7.3.698 Ho spita .3.570113 084.8 l .8 2022-03-26 2022-03-26 Travel 1.2.840.1 1.2.990.704 0182 [id number] Methodi 00:00:00 00:00:[address] 3.430.2.7 0.2.7.3.698 Ho spita .3.255021 084.8 l .8 2022-02-26 2022-02-27 Emergency LING DIANE ERT [id number] [facility] 22:26:00 00:44:00 AFSANEH khan [facility] 2022-02-26 2022-02-27 Emergency [facility], [facility] 1.2.702.682 [id number] [facility] 22:26:00 00:44:00 Afsaneh HUMPHREYS 350.1.13.10 ity of [place] 4.2.7.2.686 [facility] [id number] [facility] 084 Branch 2022-02-17 2022-02-18 Emergency Nuszen, 1.2.840.1 [id number] Methodi 21:45:00 01:49:[address]1.[address] 3.430.2.7 Hospit a .3.909352 l .8 2022-02-17 2022-02-18 Emergency Nuszen, 1.2.840.1 [id number] Methodi 21:45:00 01:49:[address] A[address]69.1.[address] 3.430.2.7 Hospit a .3.334588 l .8 2022-02-17 2022-02-17 Travel 1.2.840.1 1.2.301.241 5258 [id number] Methodi 00:00:00 00:00:[address] 3.430.2.7 0.2.7.3.698 Ho spita .3.158843 084.8 l .8 2022-02-17 2022-02-17 Travel 1.2.840.1 1.2.660.634 6131 [id number] Methodi 00:00:00 00:00:[address] 3.430.2.7 0.2.7.3.698 Ho spita .3.295104 084.8 l .8 2020-12-31 2020-12-31 Emergency Dunaway, [facility] 1.2.840.114 [id number] 02:02:00 03:26:00 Akiko Humphreys 350.1.13.10 [place] 4.2.7.2.686 [place] [id number] 084 2020-12-31 2020-12-31 Emergency Dunaway, [facility] 1.2.840.114 [id number] Univers 02:02:00 03:26:00 Akiko Humphreys 350.1.13.10 i ty of [place] 4.2.7.2.686 [facility] [id number] [address] 2020-11-20 2020-11-20 [facility] 1.2.047.365 [id number] 11:47:00 15:01:00 John Humphreys 350.1.13.10 [place] 4.2.7.2.686 [place] [id number] [facility] 2020-11-20 2020-11-20 Emergency [facility] 1.2.876.288 [id number] Univers 11:47:00 15:01:00 John Humphreys 350.1.13.10 i ty of [place] 4.2.7.2.686 [facility] [id number] [address] 2020-09-26 2020-09-26 Emergency Troy Tricia [facility] 1.2.840.114 [id number] 18:51:00 22:39:00 Lluvia Humphreys 350.1.13.10 [place] 4.2.7.2.686 [place] [id number] [facility] 2020-09-26 2020-09-26 Emergency Tricia Herbert [facility] 1.2.840.114 [id number] Univers 18:51:00 22:39:00 Lluvia Humphreys 350.1.13.10 i ty of [place] 4.2.7.[address] [place] [id number] 2020-08-06 2020-08-06 Emergency X MIGUEL [facility] ERT [id number] Univers 10:13:00 12:49:00 JOHN khan of [facility] 2020-08-01 2020-08-03 Inpatient [facility] [id number] [facility] 09:14:00 03[facility]39:32 [facility] 2020-07-17 2020-07-17 Emergency Wild Cowart [facility] 1.2.840 .114 [id number] 05:53:00 08:59:00 Dani Kauffman 350.1.13.10 [place] 4.2.7.2.686 [place] [id number] 084 2020-07-17 2020-07-17 Emergency Wild Cowart [facility] 1.2.840 .114 [id number] [facility] 05:53:00 08:59:00 Dani Kauffman 350.1.13.10 ity of [place] 4.2.7.2.686 [facility] [id number] [facility] 084 Branch Results Test Description Test Time Test Comments Results Result Comments Source COMP. METABOLIC PANEL (89007) 2022-05-29 00:30:52 Test Item Value Reference Range Interpretation Comme nts NA (test code = 7088876468) 137 mmol/L 135-145 K (test code = 0583955239) 3.9 mmol/L 3.5-5.0 CL (test code = 2954477844) 107 mmol/L 98-108 CO2 TOTAL (test code = 5584089911) 21 mmol/L 23-31 L AGAP (test code = 1258288963) 2-16 BUN (test code = 0202903311) 9 mg/dL 7-23 GLUCOSE (test code = 3085149850) 106 mg/dL 70-110 CREATININE (test code = 0.81 mg/dL 0.50-1.04 1117102106) TOTAL BILI (test code = 0.4 mg/dL 0.1-1.2 5327965284) CALCIUM (test code = 2008236663) 8.7 mg/dL 8.6-10.6 T PROTEIN (test code = 5286171351) 6.8 g/dL 6.3-8.2 ALBUMIN (test code = 3820983171) 4.2 g/dL 3.5-5.0 ALK PHOS (test code = 8632911173) 40 U/L 34-122 ALTv (test code = 1742-6) 19 U/L 5-35 AST(SGOT) (test code = 2930431829) 15 U/L 13-40 eGFR (test code = 7199369060) mL/min/1.73m2 TOBI (test code = TOBI) Association [...] tests). Lab Interpretation (test code = Abnormal 72198-3) [facility] WITH [id number] 00:15:52 Test Item Value Reference Range Interpretation Comments WBC (test code = See_Comment [Automated message] 6690-2) The system [employer] generated this result transmitted ref erence range: 4.30 - 1 1.10 10*3/?L. The re ference range was not u sed to interpret this result as normal/abnor mal. RBC (test code = See_Comment [Automated message] 789-8) The system [employer] generated this result transmitted ref erence range: 3.93 - 5 .25 10*6/?L. The re ference range was not u sed to interpret this result as normal/abnor mal. HGB (test code = 13.0 g/dL 11.6-15.0 298-7) HCT (test code = 37.9 % 35.7-45.2 4544-3) MCV (test code = 89.0 fL 80.6-95.5 787-2) MCH (test code = 30.5 pg 25.9-32.8 785-6) MCHC (test code = 34.3 g/dL 31.6-35.1 786-4) RDW-SD (test code 42.8 fL 39.0-49.9 = 84379-5) RDW-CV (test code 13.1 % 12.0-15.5 = 788-0) PLT (test code = See_Comment [Automated message] 777-3) The system [employer] generated this result transmitted ref erence range: 166 - 35 8 10*3/?L. The re ference range was not u sed to interpret this result as normal/abnor mal. MPV (test code = 9.5 fL 9.5-12.9 28869-1) NRBC/100 WBC (test See_Comment [Automat ed message] code = 3824063543) The syste m which generated this result transmitted ref erence range: 0.0 - 10 .0 /100 WBCs. The refer ence range was not u sed to interpret this result as normal/abnor mal. NRBC x10^3 (test See_Comment [Automated message] code = 4900847880) The syste m which generated this result transmitted ref erence range: 10*3/?L. The reference range was not used to interpr et this result as normal/abnormal . GRAN MAT (NEUT) % 59.3 % (test code = 770-8) IMM GRAN % (test 0.10 % code = 7605476129) LYMPH % (test code 29.5 % = 736-9) MONO % (test code 7.1 % = 5905-5) EOS % (test code = 3.1 % 713-8) BASO % (test code 0.9 % = 706-2) GRAN MAT 4.17 10*3/uL 1.88-7.09 x10^3(ANC) (test code = 9506963918) IMM GRAN x10^3 0.00-0.06 (test code = 9201066390) LYMPH x10^3 (test 2.08 10*3/uL 1.32-3.29 code = 731-0) MONO x10^3 (test 0.50 10*3/uL 0.33-0.92 code = 742-7) EOS x10^3 (test 0.22 10*3/uL 0.03-0.39 code = 711-2) BASO x10^3 (test 0.06 10*3/uL 0.01-0.07 code = 704-7) [facility] [id number] 23:53:00 Test Item Value Reference Range Interpretation Comments POCT PREG (test code = 1605) negative On board controls acceptable with present C Line (test code = 3574) POCT PREG LOT # (test code = 3575) [id number] POCT PREG TEST DATE (test 09/26/2023 code = 3576) Lab Interpretation (test code = Normal 69356-3) [facility] CenterTHYROID STIMULATING [id number] 05:23:28 Test Item Value Reference Range Interpretation Comments TSH (test code = See_Comment [Automated message] 9737893440) The system [employer] generated this result transmitted ref erence range: 0.45 - 4 .70 mIU/L. The refe rence range was not u sed to interpret this result as normal/abnor mal. Lab Interpretation (test Normal code = 34150-2) [facility] Center[facility] [id number] 05:05:05 Test Item Value Reference Interpretation Comments Range TROPONIN I (test 0.006 ng/mL See_Comment [Automated code = 7406386371) message] The system which generated this result [...] biotin. Lab Interpretation Normal (test code = 51854-7) [facility] [id number] 04:56:00 Test Item Value Reference Range Interpretation Comments POCT PREG (test code = 1605) negative Lab Interpretation (test code = Normal 83356-1) [facility]. METABOLIC PANEL (49129)2022-02-27 04:46:44 Test Item Value Reference Range Interpretation Comments NA (test code = 137 mmol/L 135-145 0390017228) K (test code = 3.7 mmol/L 3.5-5 7865543333) CL (test code = 102 mmol/L 98-108 7796760951) CO2 TOTAL (test code 26 mmol/L 23-31 = 8259664468) AGAP (test code = 2-16 8885161133) BUN (test code = 8 mg/dL 7-23 9150851380) GLUCOSE (test code = 96 mg/dL 70-110 8988347089) CREATININE (test code 0.77 mg/dL 0.5-1.04 = 4593470525) TOTAL BILI (test code 0.4 mg/dL 0.1-1.1 = 4247533435) CALCIUM (test code = 9.2 mg/dL 8.6-10.6 5532745712) T PROTEIN (test code 7.2 g/dL 6.3-8.2 = 5962647422) ALBUMIN (test code = 4.5 g/dL 3.5-5 0302747409) ALK PHOS (test code = 58 U/L 34-122 1059118925) ALTv (test code = 30 U/L 5-35 1742-6) AST(SGOT) (test code 17 U/L 13-40 = 1855249713) eGFR (test code = mL/min/1.73m2 7273723933) TOBI (test code = TOBI) Association of [...] or urine or abnormalities in imaging tests). [facility] Center[facility]2022-09-02 04:46:44 Test Item Value Reference Range Interpretation Comments LIPASE (test code = 8600608383) 91 U/L 0-220 Lab Interpretation (test code = Normal 55219-5) [facility] Center[facility] WITH [id number] 04:33:23 Test Item Value Reference Range Interpretation Comments WBC (test code = See_Comment [Automated 0892-2) message] The sy stem which generated this result transmitted reference range : 4.30 - 11.10 10*3/?L. The reference range was not used to interpret this result as normal/abnormal . RBC (test code = See_Comment [Automated 353-8) message] The sy stem which generated this [...] RDW-SD (test code = 41.0 fL 39-49.9 26406-7) RDW-CV (test code = 13.1 % 12-15.5 788-0) PLT (test code = See_Comment H [Automated 777-3) message] The sy stem which generated this result transmitted reference range : 166 - 358 10*3/ ?L. The reference r shira was not used to interpret this result as normal/abnormal . MPV (test code = 10.1 fL 9.5-12.9 44932-7) NRBC/100 WBC (test See_Comment [Automat ed code = 0069123453) message] The system which generated this result transmitted reference range : 0.0 - 10.0 /100 WBCs. The refer ence range was not u sed to interpret th is result as normal/abnormal . NRBC x10^3 (test code See_Comment [Auto mated = 0273493158) message] The s ystem which generated this result transmitted reference range : 10*3/?L. The reference range was not used to interpret this result as normal/abnormal . GRAN MAT (NEUT) % 52.2 % (test code = 770-8) IMM GRAN % (test code 0.30 % = 8203711371) LYMPH % (test code = 37.9 % 736-9) MONO % (test code = 5.9 % 5905-5) EOS % (test code = 3.1 % 713-8) BASO % (test code = 0.6 % 706-2) GRAN MAT x10^3(ANC) 4.83 10*3/uL 1.88-7.09 (test code = 4323855297) IMM GRAN x10^3 (test 0.03 10*3/uL 0-0.06 code = 8983857837) LYMPH x10^3 (test code 3.51 10*3/uL 1.32-3.29 H = 731-0) MONO x10^3 (test code 0.55 10*3/uL 0.33-0.92 = 742-7) EOS x10^3 (test code = 0.29 10*3/uL 0.03-0.39 711-2) BASO x10^3 (test code 0.06 10*3/uL 0.01-0.07 = 704-7) Lab Interpretation Abnormal (test code = 29859-2) [facility] Center[facility]ID STREP SCREEN FOR GROUP [id number] 07:59:00 Test Item Value Reference Range Interpretation Comments Streptococcus pyogenes (group A) Negative Negative antigen (test code = 69222-3) Lab Interpretation (test code = Normal 22573-3) [facility] CenterCT HEAD WO [id number] 18:21:18No acute findings. HISTORY:Head trauma, mod-severe hit left head, near syncope, persistentsevere headache and dizziness TECHNIQUE: Noncontrast head CT was performed. COMPARISON:None FINDINGS: The ventricles and sulci are appropriate for patient's age. There is no midline shift. The basal cisterns are preserved. No largevascular territory infarction, intracranial hemorrhage or mass effect isseen. The extracranial tissues demonstrate no acute findings. Prmb, Radiant Results Inft User - 11/20/2020 1:22PM [...] acute findings.[facility] (NA, K, CL, CO2, GLUCOSE, BUN, CREATININE, CA)2020-11-20 18:00:40 Test Item Value Reference Range Interpretation Comments NA (test code = 137 mmol/L 135-145 [id number]) K (test code = 4.2 mmol/L 3.5-5.0 4510713053) CL (test code = 104 mmol/L 98-108 6647251407) CO2 TOTAL (test code = 22 mmol/L 23-31 L 4680980378) AGAP (test code = 2-16 8252663624) BUN (test code = 10 mg/dL 7-23 1271822815) GLUCOSE (test code = 150 mg/dL 70-110 H [id number]) CREATININE (test code = 0.59 mg/dL 0.50-1.04 9786494796) CALCIUM (test code = 9.5 mg/dL 8.6-10.6 9832602976) eGFR (test code = mL/min/1.73m2 2648898820) TOBI (test code = TOBI) Association of [...] tests). Lab Interpretation Abnormal (test code = 92853-6) [facility] [id number] 17:50:00 Test Item Value Reference Range Interpretation Comments POCT PREG (test code = 1605) negative On board controls acceptable with present C Line (test code = 3574) POCT PREG LOT # (test code = 3575) [id number] POCT PREG TEST DATE (test 05/27/2022 code = 3576) Lab Interpretation (test code = Normal 86201-5) [facility] WITH [id number] 17:32:17 Test Item Value Reference Range Interpretation [...] RDW-SD (test code = 40.4 fL 39.0-49.9 86111-7) RDW-CV (test code = 13.0 % 12.0-15.5 788-0) PLT (test code = See_Comment H [Automated 777-3) message] The sy stem which generated this result transmitted reference range : 166 - 358 10*3/ ?L. The reference r shira was not used to interpret this result as normal/abnormal . MPV (test code = 9.5 fL 9.5-12.9 29464-2) NRBC/100 WBC (test See_Comment [Automat ed code = 0477407907) message] The system which generated this result transmitted reference range : 0.0 - 10.0 /100 WBCs. The refer ence range was not u sed to interpret th is result as normal/abnormal . NRBC x10^3 (test code <0.01 See_Comment [Auto mated = 1871521650) message] The s ystem which generated this result transmitted reference range : 10*3/?L. The reference range was not used to interpret this result as normal/abnormal . GRAN MAT (NEUT) % 83.0 % (test code = 770-8) IMM GRAN % (test code 0.70 % = 9343848483) LYMPH % (test code = 12.5 % 736-9) MONO % (test code = 3.7 % 5905-5) EOS % (test code = 0.0 % 713-8) BASO % (test code = 0.1 % 706-2) GRAN MAT x10^3(ANC) 8.41 10*3/uL 1.88-7.09 H (test code = 1403772691) IMM GRAN x10^3 (test 0.07 10*3/uL 0.00-0.06 H code = 0067209744) LYMPH x10^3 (test code 1.26 10*3/uL 1.32-3.29 L = 731-0) MONO x10^3 (test code 0.37 10*3/uL 0.33-0.92 = 742-7) EOS x10^3 (test code = <0.03 0.03-0.39 L 711-2) BASO x10^3 (test code <0.03 0.01-0.07 = 704-7) Lab Interpretation Abnormal (test code = 46986-0) [facility] [id number] 02:56:00 Test Item Value Reference Range Interpretation Comments POCT PREG (test code = 1605) negative On board controls acceptable with present C Line (test code = 3574) POCT PREG LOT # (test code = 3575) [id number] POCT PREG TEST DATE (test 02/25/2022 code = 3576) Lab Interpretation (test code = Normal 59786-0) [facility] Center[facility]DIA GC DNA BY [id number] 14:24:00 Test Item Value Reference Range Interpretation Comments C. TRACHOMATIS DNA BY Negative Negative PCR (test code = CHLAMTDNA) N. GONORRHOEAE DNA BY Negative Negative Perfor med At: ST PCR (test code = [facility] James NGONORDNA) [id number] [facility] [place], [place] [id number] Cayla Rodrigues MD Ph:[phone] - DUP AB/PEL/SC/[id number] 14:12:00 [facility] : 1995 Sex: F Patient Name: FATMATA DEGROOT Unit No: [id number] EXAMS: CPT CODE: [id number] DUP AB/PEL/SC/LTD 92581 PELVIC ULTRASOUND, 08/01/2020: COMPARISON: CT pelvis dated [...] Orig Print D/T: S: 08/01/2020 (1415) [facility] NAME: DEGROOTFATMATA Dickerson Radiology Department PHYS: ELLISJeffrey Winter Wilkins MD [address] : 1995 AGE: 24 SEX: F [place], [place] [address] LOC: [place] PHONE #: [phone] EXAM DATE: 08/01/2020 STATUS: REG ER FAX #: [phone] RAD NO: Page 1 Signed Report Patient Name: FATMATA DEGROOT Unit No: [id number] EXAMS: CPT CODE: [id number] DUP AB/PEL/SC/LTD 15540 (Continued) [facility] NAME: DEGROOT,FATMATA Radiology DepartmentPHYS: ELLISJeffrey Winter Wilkins MD [address] : 1995 AGE: 24 SEX: F [place], [place] [address] LOC: F.ERS PHONE #: [phone] EXAM DATE: 08/01/2020 STATUS: REG ER FAX #: [phone] RAD NO: Page 2 Signed Report- US TRANSVAGINAL W/[id number] 14:12:00 [facility] : 1995 Sex: F Patient Name: FATMATA DEGROOT Unit No: [id number] EXAMS: CPT CODE: [id number] US TRANSVAGINAL W/PELVIS 73505 PELVIC ULTRASOUND, 08/01/2020: COMPARISON: CT pelvis dated [...] Wild Barrera Technologist: Alexandra Elder RDMS Probe: [id number] Trnscrbd D/ (1412) t.JESSICAR.AJ13 Orig Print D/T: S: 08/01/2020 (1415) [facility] NAME: FATMATA DEGROOT Radiology Department PHYS: CANAL. Winter Mccollum MD [address] : 1995 AGE: 24 SEX: F [place] [address] LOC: [facility] PHONE #: [phone] EXAM DATE: 08/01/2020 STATUS: REG ER FAX #: [phone] RAD NO: Page 1 Signed Report Patient Name: FATMATA DEGROOT Unit No: [id number] EXAMS: CPT CODE: [id number] US TRANSVAGINAL W/PELVIS 60725 (Continued) [facility] NAME: FATMATA DEGROOT Radiology Department PHYS: ELLIS. Winter Mccollum MD [address] : 1995 AGE: 24 SEX: F [place] [address] LOC: SANDY PHONE #: [phone] EXAM DATE: 08/01/2020 STATUS: BALTAZAR ER FAX #: [phone] RAD NO: Page 2 Signed Report- US PELVIS [id number] 14:12:00 [facility]GR[facility]OT : 1995 Sex: F Patient Name: FATMATA DEGROOT Unit No: [id number] EXAMS: CPT CODE: [id number] US PELVIS COMPLETE 54657 PELVIC ULTRASOUND, 08/01/2020: COMPARISON: CT pelvis dated [...] t.SDR.AJ13 Orig Print D/T: S: 08/01/2020 (1415) [facility] NAME: DEGROOTFATMATA Dickerson Radiology Department PHYS: Winter Landaverde MD [address] : 1995 AGE: 24 SEX: F [place] [address] : F.ERS PHONE #: [phone] EXAM DATE: 08/01/2020 STATUS: REG ER FAX #: [phone] RAD NO: Page 1 Signed Report Patient Name: FATMATA DEGROOT Unit No: [id number] EXAMS: CPT CODE: [id number] US PELVIS COMPLETE 23831 (Continued) [facility] NAME: FATMATA DEGROOT Radiology Department PHYS: Winter Landaverde MD [address] : 1995 AGE: 24 SEX: F [place] [address] LOC: F.ERS PHONE #: [phone] EXAM DATE: 08/01/2020 STATUS: REG ER FAX #: [phone] RAD NO: Page 2 Signed Report- CT ABD PELVIS W/O [id number] 10:58:00[facility] : 1995 Sex: F Patient Name: FATMATA DEGROOT Unit No: [id number] EXAMS: CPT CODE: [id number] CT ABD PELVIS W/O CONT 54753 CT ABDOMEN/CT STONE SURVEY WITHOUT CONTRAST, 08/01/2020 [...] mm right middle lobe pulmonary nodule. [facility] NAME: FATMATA DEGROOT Radiology Department PHYS: CANALWinter Murray MD [address] : 1995 AGE: 24 SEX: F [place], [place] [address] LOC: SANDY PHONE #: [phone] EXAM DATE: 08/01/2020 STATUS: REG ER FAX #: [phone] RAD NO: Page 1 Signed Report 1 Patient Name: FATMATA DEGROOT Unit No: [id number] EXAMS: CPT CODE: [id number] CT ABD PELVIS W/O CONT 34135 (Continued) CT PELVIS WITHOUT CONTRAST: No opaque ureteral calculi and/or ureteral dilatation noted in the pelvis. Visualized bowel loops appear unremarkable without bowel wall thicke frances. No right lower quadrant inflammatory process noted. [...] 13.28 DLP: 653.43 Trnscrbd D/ (1058) AlfredoAJ13 [facility] NAME: FATMATA DEGROOT Radiology Department PHYS: [facility] [address] : 1995 AGE: 24 SEX: F [place] [address] LOC: ShaylaERS PHONE #: [phone] EXAM DATE: 08/01/2020TATUS: REG ER FAX #: [phone] RAD NO: Page 2 Signed Report 1 Patient Name: FATMATA DEGROOT Unit No: [id number] EXAMS: CPT CODE: [id number] CT ABD PELVIS W/O CONT 46604 (Continued) Orig Print D/T:S: 08/01/2020 (1101) [facility] NAME: FATMATA DEGROOT Radiology Department PHYS:ELLISSalimaWinter Ortiz MD [address] : 1995 AGE: 24 SEX: F [place] [address] LOC: ShaylaERS PHONE #: [phone] EXAM DATE: 08/01/2020 STATUS: REG ER FAX #: [phone] RAD NO: Page 3 Signed Report 1UA RFLX MICR CULT IF [id number] 10:04:00 Test Item Value Reference Range Interpretation [...] culture: Suprapubic PainSpecimen Description: CLEAN CATCHUR HCG [id number] 10:04:00 Test Item Value Reference Range Interpretation [...] Description: CLEAN CATCHUA RFLX MICR CULT IF [id number] 10:03:00 Test Item Value Reference Range Interpretation [...] culture: Suprapubic PainSpecimen Description: CLEAN CATCHUR HCG [id number] 10:03:00 Test Item Value Reference Range Interpretation Comments UR HCG QUAL (test code = HCGQLU) Indication for culture: Suprapubic PainSpecimen Description: CLEAN CATCH [id number] 14:39:00 Test Item Value Reference Range Interpretation Comments APPEARANCE (test code = Hazy Clear A 3220771383) COLOR (test code = Yellow Yellow 6997558296) PH (test code = 4.8-8.0 9283380867) SP GRAVITY (test code = 1.003-1.030 6660359988) GLU U QUAL (test code = Normal Normal 2135170578) BLOOD (test code = Negative Negative INTERFERE NCE FROM 4094470952) ASCORBIC ACID M AY CAUSE FALSE NEG ATIVE RESULT KETONES (test code = Negative Negative 2942106535) PROTEIN (test code = Negative Negative 2887-8) UROBILIN (test code = Normal Normal 5428617763) BILIRUBIN (test code = Negative Negative 8642249098) NITRITE (test code = Negative Negative 1110888901) LEUK SILVINO (test code = Negative Negative 6229053877) RBC/HPF (test code = See_Comment [Autom ated message] 3321780313) The system [employer] generated this result transmitted ref erence range: 0 - 3 HP F. The reference range was not used to int erpret this result as normal/abnormal . WBC/HPF (test code = <1 See_Comment [Autom ated message] 1822816522) The system [employer] generated this result transmitted ref erence range: 0 - 5 HP F. The reference range was not used to int erpret this result as normal/abnormal . BACTERIA (test code = Few Negative A 6317080323) MUCOUS (test code = Slight Negative LPF A 4198505786) SQ EPITH (test code = HPF 6829433768) Lab Interpretation (test Abnormal code = 54391-0) [facility] [id number] 14:08:00 Test Item Value Reference Range Interpretation Comments POCT PREG (test code = 1605) negative On board controls acceptable with present C Line (test code = 3574) POCT PREG LOT # (test code = 3575) [id number] POCT PREG TEST DATE (test 2022-02-25 code = 3576) Lab Interpretation (test code = Normal 02626-6) [facility] WITH [id number] 12:41:00 Test Item Value Reference Range Interpretation Comments WBC (test code = See_Comment [Automated 4093-2) message] The sy stem which generated this result transmitted reference range : 4.30 - 11.10 10*3/?L. The reference range was not used to interpret this result as normal/abnormal . RBC (test code = See_Comment [Automated 247-8) message] The sy stem which generated this [...] RDW-SD (test code = 40.8 fL 39-49.9 75281-1) RDW-CV (test code = 13.0 % 12-15.5 788-0) PLT (test code = See_Comment H [Automated 777-3) message] The sy stem which generated this result transmitted reference range : 166 - 358 10*3/ ?L. The reference r shira was not used to interpret this result as normal/abnormal . MPV (test code = 9.5 fL 9.5-12.9 15890-9) NRBC/100 WBC (test See_Comment [Automat ed code = 4187029478) message] The system which generated this result transmitted reference range : 0.0 - 10.0 /100 WBCs. The refer ence range was not u sed to interpret th is result as normal/abnormal . NRBC x10^3 (test code <0.01 See_Comment [Auto mated = 7019233561) message] The s ystem which generated this result transmitted reference range : 10*3/?L. The reference range was not used to interpret this result as normal/abnormal . GRAN MAT (NEUT) % 49.7 % (test code = 770-8) IMM GRAN % (test code 0.40 % = 3383006754) LYMPH % (test code = 37.6 % 736-9) MONO % (test code = 6.3 % 5905-5) EOS % (test code = 5.4 % 713-8) BASO % (test code = 0.6 % 706-2) GRAN MAT x10^3(ANC) 4.65 10*3/uL 1.88-7.09 (test code = 0204731981) IMM GRAN x10^3 (test 0.04 10*3/uL 0-0.06 code = 1895175328) LYMPH x10^3 (test code 3.52 10*3/uL 1.32-3.29 H = 731-0) MONO x10^3 (test code 0.59 10*3/uL 0.33-0.92 = 742-7) EOS x10^3 (test code = 0.51 10*3/uL 0.03-0.39 H 711-2) BASO x10^3 (test code 0.06 10*3/uL 0.01-0.07 = 704-7) Lab Interpretation Abnormal (test code = 69161-7) [facility] W/AUTO [id number] 07:27:00 Test Item Value Reference Range Interpretation [...] NORMAL code = PLTMR) AG HEPATITIS B [id number] 04:15:00 Test Item Value Reference Range Interpretation Comments AG HEPATITIS B SURFACE (test code NONREACTIVE NONREACTIVE = HBSAG) AB HEPATITIS C [id number] 04:15:00 Test Item Value Reference Range Interpretation Comments AB HEPATITIS C (test code = NONREACTIVE NONREACTIVE HCVAB) SIGNAL TO CUTOFF (test code = 0.13 <0.80 N CUTOFF) RUBELLA [id number] 04:15:00 Test Item Value Reference Range Interpretation Comments RUBELLA SCREEN 70.2 IUnit/ml Results >10. 0IUnits/ml (test code = are considered positive RUBSC) inaccordance wi th the CLSI guidelines and based on the O [employer] S tandard for Anti-Rubell a serum as anindicator of immune status and a br eakpoint to detect mostseropositiv e persons. AB [id number] 04:15:00 Test Item Value Reference Range Interpretation Comments AB TREPONEMA (test code = TREPAB) NONREACTIVE NONREACTIVE AG HEPATITIS B [id number] 04:00:00 Test Item Value Reference Range Interpretation Comments AG HEPATITIS B SURFACE (test code NONREACTIVE NONREACTIVE = HBSAG) AB HEPATITIS C [id number] 04:00:00 Test Item Value Reference Range Interpretation Comments AB HEPATITIS C (test code = HCVAB) NONREACTIVE SIGNAL TO CUTOFF (test code = CUTOFF) <0.80 RUBELLA [id number] 04:00:00 Test Item Value Reference Range Interpretation Comments RUBELLA SCREEN 70.2 IUnit/ml Results >10. 0IUnits/ml (test code = are considered positive RUBSC) inaccordance wi th the CLSI guidelines and based on the O [employer] S tandard for Anti-Rubell a serum as anindicator of immune status and a br eakpoint to detect mostseropositiv e persons. AB [id number] 04:00:00 Test Item Value Reference Range Interpretation Comments AB TREPONEMA (test code = TREPAB) NONREACTIVE NONREACTIVE CBC W/AUTO [id number] 00:36:00 Test Item Value Reference Range Interpretation [...]
[2022-07-03 03:25] LABS: Urine Blood 2+ (Negative); Urine Glucose Negative (Negative); Urine Protein Trace (Negative); Urine pH 6.5 (5.0-7.0)
[2022-07-03] MEDS ORDERED: ACETAMINOPHEN 500 MG TAB ONE (04:43)
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
[2022-07-03 05:31] VITALS: BP 103/66; TEMP 97.9; O2SAT 99
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
== END 2022-07-03 05:23 | disposition home or self-care (01) ==
LOC: ER 03:13
DX: S09.90XA Unspecified injury of head, initial encounter (principal); M79.641 Pain in right hand; Y04.2XXA Assault by strike against or bumped into by another person, initial encounter; Z88.1 Allergy status to other antibiotic agents; Z88.5 Allergy status to narcotic agent
CPT/HCPCS: 70450; 72125; 81003; 81025; 99284

== ENCOUNTER 2022-07-23 18:48 | Emergency (ER) | payer OTHER ==
--- OUTSIDE RECORDS SUMMARY | 2022-07-23 18:54 | XMS REPORT | Continuity of Care Document ---
:1995 Author Organization [facility] t Address [address] [place] [address] Care Team Providers Name Role Phone Asked, No Pcp Primary Care Physician Unavailable Nash Schwab MD Attending Clinician MENDY LIRIANO Attending Clinician Unavailable Calvin AREVALO, Lorena Real Attending Clinician [phone] Mendy Liriano MD Attending Clinician IZA DENSON Attending Clinician Unavailable Jessica AREVALO, Ania Attending Clinician AFSANEH CAR Attending Clinician Unavailable Josep SAM, Afsaneh Alarcon Attending Clinician Carlos Hernandez DO Attending Clinician Gume GUERREROP, Akiko Attending Clinician Rivera PAC, John S Attending Clinician Troy PAC, Tricia Teixeira Attending Clinician CHAPINCITO, JOHN S Attending Clinician Unavailable Wild Cowart MD Attending Clinician Dani Kauffman DO Attending Clinician LORENA SIMPSON Admitting Clinician Unavailable Wild Barrera Admitting Clinician Unavailable Payers Payer Name Policy Type Policy Number Effective Date Expiration Date S shobha GOODETTER FROM [id number] [address] [facility] 00:00:00 [facility] [id number] 2019 00:00:00 Problems Condition Condition Condition Status Onset Resolution Last Treating Co mments Source Name Details Category Date Date Treatment Clinician Date Obesity Obesity Disease Active Univers (BMI (BMI 1-16 ity of 30-39.9) 30-39.9) 00:00: [place] [address] Medical Branch Urinary Urinary Disease Active Univers [...] 00 take with Medic al s Benadryl [place] KETOROLA DRUG Active Other-Cmnt Univ ers C [...] 00 l of [place] codeine DA Active [place] 2018- [facility] 1[facility]19 [facility] [place] morphine DA Active U SWELLING 2018- [facility] 1-19 [facility] 00:[facility]: [facility] 00 [facility] [place] codeine DA Active [place] nausea, 2018- [facility] headache -19 [facility] 00:[facility]: [facility] 00 [facility] [place] tramadol DA Active [place] 2018- [facility] 2-31 [facility] 00:00: [facility] 00 [facility] [place] tramadol DA Active [place] CHEST PAIN 2017- [facility] 2-31 [facility] 00:00: [facility] 00 l of [place] Tramadol Propensi Active Other (See headache Methodi ty to Comments) 14 st adverse 00:00: Hospita reaction 00 l s to drug ACETAMIN DRUG Active High SOB Univers OPHEN-CO 9-14 ity of DEINE 00:00: [place] 00 Medical Branch Acetamin Propensi Active Shortness of Univers ophen-Co ty to Breath -14 ity of deine adverse 00:00: [place] reaction 00 Medical s Branch Acetamin Propensi Active Shortness Of Methodi ophen-Co ty to Breath -14 st deine adverse 00:00: Hospita reaction 00 l s to drug TRAMADOL DRUG Active Anaphylaxis Uni vers INGREDI 5- ity of 00:00: [place] 00 Medical Branch TUSSIN DRUG Active Rash 0 Univers DM COUGH 11-01 ity of MEDICINE 00:00: [place] 00 Medical Branch Tussin Propensi Active Rash Univers Dm Cough ty to 507 ity of Medicine adverse 00:00: [place] reaction 00 Medical s Branch No Known DA Active U [facility] Allergie 3-14 [facility] s 00:00: [facility]ospita 00 l of [place] Family History Family Member Diagnosis Comments Start Date Stop Date Source Natural mother Diabetes [facility] Natural mother Menstrual problems [facility] Social History Social Habit Start Date Stop Date Quantity Comments Source Alcohol intake 2022-07-22 2022-07-22 Current drinker [facility] 00:00:00 00:00:00 of alcohol (finding) Exposure to 2022-05-18 2022-05-28 Not sure University of SARS-CoV-2 00:00:00 17:41:00 [facility] (event) [place] Tobacco use and 2022-03-26 2022-03-26 Smokeless tobacco [facility] exposure 00:00:00 00:00:00 non-user Alcohol Comment 2016-04-28 2016-04-28 social, weekly [facility] 00:00:00 00:00:00 Sex [birth year] [facility] 00:00:00 00:00:00 Smoking Status Start Date Stop Date Source Never smoked tobacco [facility] Medications Ordered Filled Start Stop Current Ordering Indication Dosage Frequency Signature Comments Components Source Medication Medication Date Date Medication? Clinician (SIG) Name Name adriánxac Yes 500mg Q.5D Take 1 Met hodi in (CIPRO) 07-[address] 500 MG 00:00: (500 mg Hospita tablet 00 total) by l mouth 2 (two) times a day. keTOROlac 2022- Yes 10mg Q6H Take 1 Metho di (TORadol) 07-22 tablet (10 st 10 mg 00:00: 05:59 mg total) Hospit a tablet 00 :00 by mouth l every 6 (six) hours as needed for moderate pain for up to 5 days. phenazopyri 2022- Yes 200mg Q.04751460 Take 1 Methodi dine 07-[id number] (Pyridium) 00:00: 05:59 3D (200 mg Hos radha 200 MG 00 :00 total) by l tablet mouth 3 (three) times a day as needed for bladder spasms for up to 3 days. diphenhydrA 2021-06- No 25mg 25 mg, Uni vers MINE 07-30 Oral, ity of (BENADRYL) 04:30: 04:21 ONCE, 1 Ryan as tablet 25 00 :00 dose, On Medica l mg [facility] Branch 05/28/22 at 2230, RODRICK FENTanyl PF 2021-06 No 75ug 75 mcg, Un carolann (SUBLIMAZE 07-30 Slow IV ity o f (PF)) 04:30: 03:51 Push, [place] injection 00 :00 ONCE, 1 Medical 75 mcg dose, On Branch Elicia 05/28/22 at 2230, Routine doxycycline 2021-06- No 100mg 100 mg, U nivers hyclate 07-30 Oral, ity of (Vibramycin 03:45: 03:51 [place]CE[place] 1 [place] capsule 00 :00 dose, On Medica l 100 mg [place] Branch 05/28/22 at 2145, RODRICK
Re ason for Anti-Infec tive: Documented Infection< br>Documen jd Infection Site: Pelvic
Duration of Therapy: Other (see Comments) morpHINE (4 2021-06 No 4mg 4 mg, Slow Univers mg/mL) 07-30 IV Push, ity of injection 4 02:30: 02:47 [place]CE, 1 [place] mg 00 :00 dose, On Medical [facility] Branch 05/28/22 at 2030, STAT ketorolac 2021-06 No 15mg 15 mg, Unive rs (TORADOL) 07-30 Slow IV ity of injection 01:45: 01:01 Push, [place] 15 mg 00 :00 ONCE, 1 Medical dose, On Branch [facility] 05/28/22 at 1945, Routine iopamidol 2021-06- No [id number] 75mL 75 mL, Univers (ISOVUE 07-30 Intravenou ity o f 370-500 mL) 01:15: 01:15 s, ONCE, 1 [place] injection 00 :00 dose, On Medica l 75 mL [facility] 05/28/22 at 1915, Routine FENTanyl PF 2021-06 No 50ug 50 mcg, Un carolann (SUBLIMAZE 07-30 Slow IV ity o f (PF)) 01:00: 00:11 Push, [place] injection 00 :00 ONCE, 1 Medical 50 mcg dose, On Branch [facility] 05/28/22 at 1900, Routine ondansetron 2021-06 No 4mg 4 mg, Slow Univers (ZOFRAN 07-30 IV Push, ity of (PF)) 00:15: 00:11 ONCE, 1 [place] injection 4 00 :00 dose, On Medi scott mg [facility] 05/28/22 at 1815, RODRICK metroNIDAZO 2021-06 Yes [id number] 500mg Take 1 Univers LE 500 mg 07-29 tablet by ity o f tablet 00:00: mouth in [place] 00 the Medical morning Branch and 1 tablet in the evening. doxycycline 2021-06- Yes [id number] 100mg Take 1 Univers hyclate 100 07-29 capsule by i ty of mg capsule 00:00: 05:59 [place] :00 the Medical morning Branch and 1 capsule in the evening. Do all this for 10 days. HYDROcodone 2021-06- Yes [id number] 1{tbl} Take 1 U nivers -acetaminop 206-05 tablet by it y chance clark (NORCO) 00:00: 05:59 [place] 7.5-325 [...] hours as needed for mild pain. ibuprofen 2021-2021- No 800mg Q6H Take 800 Me thodi [...] hours as needed for mild pain. ibuprofen 2021-0 2021- No 800mg Q6H Take 800 Me thodi (ADVIL) 200 9-29 09-[address] MG tablet 08:46: 00:00 mouth Hospit a 55 :00 every 6 l (six) hours as needed for mild pain. ibuprofen 0 2021- No 800mg Q6H Take 800 Me thodi (ADVIL) 200 9-29 09-[address] MG tablet 08:46: 00:00 mouth Hospit a 55 :00 every 6 l (six) hours as needed for mild pain. ondansetron [...] hours as needed for mild pain. ondansetron 2-0 Yes 4mg Q8H Take 1 Meth shamir [...] (eight) hours as needed for mild pain. ALPRAZolam Yes alprazolam U nivers 0.5 mg 02-28 0.5 mg ity of tablet 12:44: tablet [place] [facility] bupropion Yes bupropion Uni vers HBr 02-28 HBr ity of (APLENZIN 12:44: [place] ORAL) [facility] FLUoxetine Yes fluoxetine U nivers 20 mg 02-28 20 mg ity of capsule 12:44: capsule [address] famotidine 2021- No 20mg 20 mg, Univ [...] 0.5 mg ity of tablet 23:48: tablet [address] bupropion Yes bupropion Uni vers HBr 02-26 HBr ity of (APLENZIN 23:48: [place] ORAL) [address] [place] [address] FLUoxetine Yes fluoxetine U nivers 20 mg 02-26 20 mg ity of capsule 23:48: capsule [address] ciprofloxac 2021- No 500mg Q.5D Take [...] times a day for 7 days. ciprofloxac 2- No 500mg Q.5D Take 1 Me thodi [...] a day for 7 days. ciprofloxac 2-0 2- No 500mg Q.5D Take 1 Me thodi in (CIPRO) 02-[address] 500 MG 00:00: 04:59 (500 mg Hospita tablet 00 :00 total) by l mouth 2 (two) times a day for 7 days. phenazopyri 2022-0 2022- No 200mg Q.[id number] Take 1 Methodi dine 02-[id number] (PYRIDIUM) 00:00: 04:59 3D (200 mg Hos radha 200 MG 00 :00 total) by l tablet mouth 3 (three) times a day for 3 days. phenazopyri 2022-0 2022- No 200mg Q.[id number] Take 1 Methodi dine 02-[id number] (PYRIDIUM) 00:00: 04:59 3D (200 mg Hos radha 200 MG 00 :00 total) by l tablet mouth 3 (three) times a day for 3 days. phenazopyri 2022-0 2022- No 200mg Q.97085301 Take 1 Methodi dine 02-[id number] (PYRIDIUM) 00:00: 04:59 3D (200 mg Hos radha 200 MG 00 :00 total) by l tablet mouth 3 (three) times a day for 3 days. phenazopyri 2021-0 2021- No 200mg Q.[id number] Take 1 Methodi dine 02-[id number] (PYRIDIUM) 00:00: 04:59 3D (200 mg Hos radha 200 MG 00 :00 total) by l tablet mouth 3 (three) times a day for 3 days. phenazopyri 2021-0 2021- No 200mg Q.[id number] Take 1 Methodi dine 02-[id number] (PYRIDIUM) 00:00: 04:59 3D (200 mg Hos radha 200 MG 00 :00 total) by l tablet mouth 3 (three) times a day for 3 days. phenazopyri 2021-0 2021- No 200mg Q.31251377 Take 1 Methodi dine 02-[id number] (PYRIDIUM) 00:00: 04:59 3D (200 mg Hos radha 200 MG 00 :00 total) by l tablet mouth 3 (three) times a day for 3 days. phenazopyri 2021-0 2021- No 200mg Q.[id number] Take 1 Methodi dine 02-[id number] (PYRIDIUM) 00:00: 04:59 3D (200 mg Hos radha 200 MG 00 :00 total) by l tablet mouth 3 (three) times a day for 3 days. phenazopyri 2021-0 2021- No 200mg Q.[id number] Take 1 Methodi dine 02-[id number] (PYRIDIUM) 00:00: 04:59 3D (200 mg Hos radha 200 MG 00 :00 total) by l tablet mouth 3 (three) times a day for 3 days. phenazopyri 2021-0 2021- No 200mg Q.[id number] Take 1 Methodi dine 02-[id number] (PYRIDIUM) 00:00: 04:59 3D (200 [...] [place] tablet 00 :00 dose, [facility] Medical 1,000 mg 12/31/20 at Branch 0300, RODRICK ibuprofen Yes [id number] 800mg Take 1 U nivers 800 mg 12-31 tablet by ity of tablet 00:00: mouth [place] 00 every 8 Medical (eight) Branch hours as needed for Pain (scale 4-6). cyclobenzap Yes [id number] 10mg Take 1 Univers rine 10 mg 12-31 tablet by ity of tablet 00:00: mouth 3 [place] 00 (three) Medical times Branch daily as needed for Muscle Spasms. ibuprofen 2021- No [id number] 800mg Take 1 Univers 800 mg 12-31 tablet by ity of tablet 00:00: 00:00 mouth [place] 00 :00 every 8 Medical (eight) Branch hours as needed for Pain (scale 4-6). cyclobenzap 2020-0 2021- No [id number] 10mg Take 1 Univers rine 10 mg 12-31 tablet by ity of tablet 00:00: 00:00 mouth 3 [place] 00 :00 (three) Medical times Branch daily as needed for Muscle Spasms. methocarbam Yes 500mg 500 mg, Un carolann oL -26 Oral, QID, ity of (ROBAXIN) 21:00: [place] tablet 500 00 on Wed Medical mg 11/20/20 at Branch 1600, Until Discontinu ed, Routine NaCl 0.9% 2020- No 1000mL at 999 Uni vers (NS) bolus 11-20- mL/hr, ity of infusion 20:30: 08:29 1,000 mL, Ryan as 1,000 mL 00 :00 IV Medical Infusion, Branch ONCE, 1 dose, [facility] 11/20/20 at 1530, STAT metoclopram 2020- No 10mg 10 mg, Uni vers dio HCl 11-20 Slow IV ity of (REGLAN) 20:15: 19:18 Push, [place] injection 00 :00 ONCE, 1 Medical 10 mg dose, [facility] Branch 11/20/20 at 1515, RODRICK ketorolac 2020- No 30mg 30 mg, Unive rs (TORADOL) 11-20 Slow IV ity of injection 20:15: 19:18 Push, [place] 30 mg 00 :00 ONCE, 1 Medical dose, [facility] Branch 11/20/20 at 1515, RODRICK
[facility] member approving Restricted medication : JOHN RIVERA diphenhydrA 2020- No 25mg 25 mg, Uni vers MINE 11-20 Slow IV ity of (BENADRYL) 20:15: 20:15 Push, [place] injection 00 :00 ONCE, 1 Medical 25 mg dose, [facility] Branch 11/20/20 at 1515, STAT butalbital- Yes 1{tbl} 1 tablet, Univers acetaminoph - Oral, ity of en-caff 18:12: Q4HPRN, [place] (ESGIC) 27 Starting Medical 50-325-40 [facility] Branch mg tablet 1 11/20/20 at tablet 1312, Until Discontinu ed, Routine, zofran ketorolac Yes [id number] 10mg Take 1 Un carolann 10 mg -26 tablet by ity of tablet 00:00: mouth [place] 00 every 6 Medical (six) Branch hours as needed for Pain (scale 4-6). cyclobenzap Yes [id number] 10mg Take 1 Univers rine 10 mg 5-26 tablet by ity of tablet 00:00: mouth 3 [place] 00 (three) Medical times Branch daily. ketorolac Yes [id number] 10mg Take 1 Un carolann 10 mg 5-26 tablet by ity of tablet 00:00: mouth [place] 00 every 6 Medical (six) Branch hours as needed for Pain (scale 4-6). cyclobenzap Yes [id number] 10mg Take 1 Univers rine 10 mg 5-26 tablet by ity of tablet 00:00: mouth 3 [place] 00 (three) Medical times Branch daily. ketorolac 2021- No [id number] 10mg Take 1 U nivers 10 mg 5-26 09-01 tablet by ity of tablet 00:00: 00:00 mouth [place] 00 :00 every 6 Medical (six) Branch hours as needed for Pain (scale 4-6). cyclobenzap 2021- No [id number] 10mg Take 1 Univers rine 10 mg 5-26 09-01 tablet by ity of tablet 00:00: 00:00 mouth 3 [place] 00 :00 (three) Medical times Branch daily. ketorolac 2020- No 30mg 30 mg, Unive rs (TORADOL) 09-27 Intramuscu ity of injection 03:45: 02:57 lar, ONCE, [place] 30 mg 00 :00 1 dose, Medical [facility] 09/26/20 Branch at 2245, RODRICK
Fa [employer] healthy member approving Restricted medication : Tricia HERBERT diphenhydrA 2020- No 25mg 25 mg, Uni vers MINE 09-27 Intramuscu ity of (BENADRYL) 03:45: 02:58 lar, ONCE, [place] injection 00 :00 1 dose, Medical 25 mg [facility] 09/26/20 Branch at 2245, STAT proMETHazin 2020- No 25mg 25 mg, Uni vers e 09-27 Intramuscu ity of (PHENERGAN) 03:45: 02:58 lar, ONCE, [place] injection 00 :00 1 dose, Medical 25 mg [place] 09/26/20 Branch at 2245, RODRICK ondansetron 2020-0 Yes [id number] 4mg Take 1 Univers (ZOFRAN 4-01 tablet by ity of ODT) 4 mg 00:00: mouth [place] disintegrat 00 every 8 Medic al ing tablet (eight) Branch hours as needed for Nausea and Vomiting (N/V). ondansetron 2020-0 Yes [id number] 4mg Take 1 Univers (ZOFRAN 4-01 tablet by ity of ODT) 4 mg 00:00: mouth [place] disintegrat 00 every 8 Medic al ing tablet (eight) Branch hours as needed for Nausea and Vomiting (N/V). ondansetron 2020-0 Yes [id number] 4mg Take 1 Univers (ZOFRAN 4-01 tablet by ity of ODT) 4 mg 00:00: mouth [place] disintegrat 00 every 8 Medic al ing tablet (eight) Branch hours as needed for Nausea and Vomiting (N/V). ondansetron 2020-0 2021- No [id number] 4mg Take 1 Univers (ZOFRAN 4-01 09- tablet by ity of ODT) 4 mg 00:00: 00:00 mouth [place] disintegrat 00 :00 every 8 Medic al ing tablet (eight) Branch hours as needed for Nausea and Vomiting (N/V). proMETHazin 2020-0 Yes [id number] 25mg Take 1 Univers e 25 mg 2-09 tablet by ity of tablet 00:00: mouth [place] 00 every 6 Medical (six) Branch hours as needed for Nausea and Vomiting (N/V). proMETHazin 2020-0 Yes [id number] 25mg Take 1 Univers e 25 mg 2-09 tablet by ity of tablet 00:00: mouth [place] 00 every 6 Medical (six) Branch hours as needed for Nausea and Vomiting (N/V). proMETHazin 2020-0 Yes [id number] 25mg Take 1 Univers e 25 mg 2-09 tablet by ity of tablet 00:00: mouth [place] 00 every 6 Medical (six) Branch hours as needed for Nausea and Vomiting (N/V). proMETHazin 1-0 2021- No [id number] 25mg Take 1 Univers e 25 mg [...] Hospita 500-60-15 17 l mg tablet acetaminoph 2018- Yes 2{tbl} Take 2 Me thodi en-caff-pyr 2-[address] ilamine 17:05: mouth. Hospita 500-60-15 17 l mg tablet acetaminoph 2018- Yes 2{tbl} Take 2 Me thodi en-caff-pyr 2-[address] ilamine 17:05: mouth. Hospita 500-60-15 17 l mg tablet acetaminoph 2018- Yes 2{tbl} Take 2 Me [...] mg iron-1 mg -250 mg combo pack 2017-2021- No 1{packe Take 1 Uni vers vit 11-23 t} Packet by ity of 33-iron-fol 00:00: 00:00 [place] ic-dha 00 :00 daily. Medical (SELECT-OB Branch + DHA) 29 mg iron-1 mg -250 mg combo pack Immunizations Ordered Filled Immunization Date Status Comments Sour e Immunization Name Name Td 2011-06-28 Completed University of 00:00:00 [facility] Td 2011-06-28 Completed University of 00:00:00 [facility] Td 2011-06-28 Completed University of 00:00:00 [facility] Td 2011-06-28 Completed University of 00:00:00 [facility] 2011-06-28 Completed University of 00:00:00 [facility] Td 2011-06-28 Completed University of 00:00:00 [facility] Vital Signs Vital Name Observation Time Observation Value Comments Source Systolic blood 2022-05-29 04:19:00 123 mm[Hg] Univer sity of [facility] Diastolic blood 2022-05-29 04:19:00 87 mm[Hg] Unive [facility] Heart rate 2022-05-29 04:19:00 93 /min [facility] Respiratory rate 2022-05-29 04:19:00 18 /min [facility] Oxygen saturation in 2022-05-29 04:19:00 97 /min [facility] Arterial blood by [facility] Pulse oximetry Branch Body temperature 2022-05-28 23:42:00 37.11 [place] [facility] Body height 2022-05-28 23:42:00 152.4 cm [facility] Systolic blood 2022-02-27 05:31:00 130 mm[Hg] Univer sity of pressure [facility] Diastolic blood 2022-02-27 05:31:00 87 mm[Hg] Unive rsity [facility] Heart rate 2022-02-27 05:31:00 98 /min [facility] Respiratory rate 2022-02-27 05:31:00 18 /min Univ ersity of [place] [facility] Oxygen saturation in 2022-02-27 05:31:00 99 /min University of Arterial blood by [facility] Pulse oximetry Branch Body height 2022-02-27 03:38:00 152.4 cm Universi ty [facility] [place] [facility] Body weight 2022-02-27 03:38:00 82.101 kg Universi ty [facility] [place] [facility] BMI 2022-02-27 03:38:00 35.35 kg/m2 Universi ty [facility] [place] [facility] Body temperature 2022-02-27 03:36:00 36.28 [place] Univ ersity of [place] [facility] Systolic blood 2020-12-31 06:49:00 125 mm[Hg] Univer sity of pressure [place] [facility] Diastolic blood 2020-12-31 06:49:00 93 mm[Hg] Unive rsity of pressure [place] [facility] Heart rate 2020-12-31 06:49:00 104 /min Universi ty [facility] [place] [facility] Body temperature 2020-12-31 06:49:00 36.83 [place] Univ ersity of [place] [facility] [...] 99 /min University of Arterial blood by [facility] Pulse oximetry Branch Systolic blood 2020-12-31 06:49:00 125 mm[Hg] Univer sity of pressure [place] [facility] Diastolic blood 2020-12-31 06:49:00 93 mm[Hg] Unive rsity of pressure [place] [facility] Heart rate 2020-12-31 06:49:00 104 /min Universi ty [facility] [place] [facility] Body temperature 2020-12-31 06:49:00 36.83 [place] Univ ersity of [place] [facility] Respiratory [...] 99 /min University of Arterial blood by [facility] Pulse oximetry Branch Systolic blood 2020-11-20 [...] 100 /min University of Arterial blood by [facility] Pulse oximetry Branch Body weight 2020-11-20 [...] 100 /min University of Arterial blood by [facility] Pulse oximetry Branch Body weight 2020-11-20 [...] 97 /min University of Arterial blood by [employer] Pulse oximetry Branch Body height 2020-09-26 23:49:00 [...] 97 /min University of Arterial blood by [employer] Pulse oximetry Branch Systolic blood 2020-07-17 14:00:00 112 mm[Hg] Univer sity of pressure [place] [facility] Diastolic blood 2020-07-17 14:00:00 65 mm[Hg] Unive rsity of pressure [facility] Heart rate 2020-07-17 14:00:00 86 /min Universi ty of [facility] Respiratory rate 2020-07-17 14:00:00 20 /min Univ ersity of [facility] Branch Oxygen saturation in 2020-07-17 14:00:00 100 /min University of Arterial blood by [facility] Pulse oximetry Branch Body temperature 2020-07-17 11:50:00 37.22 [place] Univ ersity of [facility] Body weight 2020-07-17 11:50:00 86.183 kg Universi ty of [facility] BMI 2020-07-17 11:50:00 37.11 kg/m2 Universi ty [facility] Systolic blood 2020-07-17 14:00:00 112 mm[Hg] Univer sity of pressure [facility] Diastolic blood 2020-07-17 14:00:00 65 mm[Hg] Unive rsity of pressure [facility] Heart rate 2020-07-17 14:00:00 86 /min Universi ty of [place] [facility] [place] Respiratory rate 2020-07-17 14:00:00 20 /min Univ ersity of [facility] Oxygen saturation in 2020-07-17 14:00:00 100 /min University of Arterial blood by [facility] Pulse oximetry Branch Body temperature 2020-07-17 11:50:00 37.22 [place] Univ ersity of [facility] Body weight 2020-07-17 11:50:00 86.183 kg Universi ty [facility] BMI 2020-07-17 11:50:00 37.11 kg/m2 Universi ty [facility] Systolic blood 2022-07-22 19:04:00 122 mm[Hg] Method [facility] pressure Diastolic blood 2022-07-22 19:04:00 72 mm[Hg] [facility] pressure Heart rate 2022-07-22 19:04:00 72 /min [facility] Respiratory rate 2022-07-22 19:04:00 18 /min [facility] Oxygen saturation in 2022-07-22 19:04:00 100 /min [facility] Arterial blood by Pulse oximetry Body temperature 2022-07-22 17:04:00 36.72 [place] [facility] Body height 2022-07-22 17:04:00 157.5 cm [facility] Body weight 2022-07-22 17:04:00 85.276 kg [facility] BMI 2022-07-22 17:04:00 34.39 kg/m2 [facility] Systolic blood 2022-03-26 13:44:00 139 mm[Hg] [facility] pressure Diastolic blood 2022-03-26 13:44:00 83 mm[Hg] [facility] pressure Heart rate 2022-03-26 13:44:00 101 /min [facility] Respiratory rate 2022-03-26 13:44:00 18 /min [facility] Oxygen saturation in 2022-03-26 13:44:00 100 /min [facility] Arterial blood by Pulse oximetry Body temperature 2022-03-26 12:32:00 36.72 [place] [facility] Body height 2022-03-26 12:32:00 157.5 cm [facility] Body weight 2022-03-26 12:32:00 85.276 kg [facility] BMI 2022-03-26 12:32:00 34.39 kg/m2 [facility] Procedures Procedure Date / Time Performing Clinician Source Performed URINE CULTURE 2022-07-22 19:12:00 Zaheer, [facility] COMPREHENSIVE METABOLIC 2022-07-22 [facility] 2022-07-22 17:33:[address] [facility] [address] RENAL STONE PROTOCOL 2022-07-22 17:13:55 Zaheer, [facility] CBC WITH PLATELET AND 2022-07-22 16:33:00 [facility] DIFFERENTIAL COMPREHENSIVE METABOLIC 2022-07-22 16:33[facility] 2022-07-22 16:33:00 Zaheer, [facility] URINALYSIS SCREEN AND 2022-07-22 16:22:00 Zaheer [facility] MICROSCOPY, WITH REFLEX TO CULTURE US PELVIS COMPLETE WITH 2022-05-29 02:07:00 Aufderheide, Lorena Un [facility] TRANSVAGINAL [facility] CT ABDOMEN PELVIS W 2022-05-29 00:28:13 [facility] [facility] COMP. METABOLIC PANEL 2022-05-29 00:07:00 Lorena Simpson [facility] ([id number]) [facility] CBC WITH DIFF 2022-05-29 00:07:00 [facility] URINALYSIS 2022-05-28 23:56:00 [facility] POCT TEST 2022-05-28 23:53:00 Lorena Simpson [facility] CONSENT/REFUSAL FOR 2022-05-28 23:40:29 Doctor Unassigned, No Un [facility] DIAGNOSIS AND TREATMENT Name [facility] URINALYSIS 2022-03-26 13:06:00 [facility] HCG QUALITATIVE, URINE 2022-03-26 13:06:00 [facility] SCREEN URINALYSIS 2022-03-26 13:06:00 [facility] HCG QUALITATIVE, URINE 2022-03-26 13:06:00 [facility] SCREEN CBC WITH PLATELET AND 2022-03-26 12:46:00 [facility] DIFFERENTIAL COMPREHENSIVE METABOLIC 2022-03-26 12:46:00 [facility] PANEL ESTIMATED GFR 2022-03-26 12:46:00 [facility] CBC WITH PLATELET AND 2022-03-26 12:46:00 [facility] DIFFERENTIAL POCT TEST 2022-02-27 04:56:00 Afsaneh Car [facility] LIPASE 2022-02-27 04:04:00 Afsaneh Car [facility] TROPONIN I 2022-02-27 04:04:00 Afsaneh Car [facility] THYROID STIMULATING 2022-02-27 04:04:00 Afsaneh Car [facility] HORMONE Medical Branch COMP. METABOLIC PANEL 2022-02-27 04:04:00 Afsaneh Car [facility] ([id number]) [facility] [place] CBC WITH DIFF 2022-02-27 04:04:00 Afsaneh Car [facility] URINALYSIS 2022-02-27 03:56:00 Afsaneh Car [facility] URINE DRUG (IMMUNOASSAY) 2022-02-27 03:56:00 [email or web address] DRUG Medical Bra nch SCREEN W/O REFLEX NOTICE OF PRIVACY 2022-02-27 03:05:57 Doctor Unassigned, No Univ [facility] PRACTICES Name Medical Branch CONSENT/REFUSAL FOR 2022-02-27 03:04:00 Doctor Unassigned, No [facility] Name [facility] COMPREHENSIVE METABOLIC 2022-02-18 05:17:00 Carlos Hernandez [facility] PANEL ESTIMATED GFR 2022-02-18 05:17:00 Carlos Hernandez spital COMPREHENSIVE METABOLIC 2022-02-18 04:38:00 Carlos Hernandez [facility] PANEL ESTIMATED GFR 2022-02-18 04:38:[address] ABDOMEN PELVIS WO 2022-02-18 04:17:35 [facility] 2022-02-18 04:00:00 Carlos Hernandez spital CBC WITH PLATELET AND 2022-02-18 04:00:[address] [facility] DIFFERENTIAL COMPREHENSIVE METABOLIC 2022-02-18 04:00:00 [facility] Hernandez [facility] PANEL ESTIMATED GFR 2022-02-18 04:00:00 Carlos Hernandez spital HCG QUALITATIVE, URINE 2022-02-18 02:50:00 [facility] 2022-02-18 02:50:00 Carlos Hernandez spital RAPID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 : 1995 Sex: F Patient Name: FATMATA DEGROOT Unit No: [id number] EXAMS: CPT CODE: [id number] CT ABD PELVIS W/O CONT 57145 CT ABDOMEN/CT STONE SURVEY WITHOUT CONTRAST, 08/01/2020 [...] gastrointestinal tract, adjacent structures, etc, is limited. Ifthere is any concern for clinical pathology in these locations and /or if patient has persistent unexplained symptoms, contrast CT is recommended for further evaluation. FINDINGS: There is a 6 mm nonspecific nodular density in the medial segment of the right middle lobe. No opaque renal calculi noted.No hydronephrosis. No opaque ureteral calculi and/or ureteral dilatation identified. Visualized portions of the liver, spleen, pancreas and adrenals appeared unremarkable. The gallbladder is present. No radiopaque gallstones or pericholecystic fluid noted. Abdominal aorta is normal in caliber. IMPRESSION: No opaque renal/ureteral calculi identified. Nonspecific 6 mm right middle lobe pulmonary nodule. [facility] NAME: FATMAAT DEGROOT Radiology Department PHYS: Winter Landaverde MD [address] : 1995 AGE: 24 SEX: F [place], [place] [address] LOC:Saran.ERS PHONE #: [phone] EXAM DATE: 08/01/2020 STATUS: REG ER FAX #: [phone] RAD NO: Page 1Signed Report 1 Patient Name: FATMATA DEGROOT Unit No: [id number] EXAMS: CPT CODE: [id number] CT ABDPELVIS W/O CONT 92028 (Continued) CT PELVIS WITHOUT CONTRAST: No opaque ureteral calculi and/or ureteral dilatation noted in the pelvis. Visualized bowel loops appear unremarkable without bowel wall thi ckening. No right lower quadrant inflammatory process noted. Uterus and ovaries are present. No freefluid or lymphadenopathy is seen. There is a [...] 13.28 DLP: 653.43 Trnscrbd D/ (1058) [email or web address].SDR.AJ13 [facility] NAME: FATMATA DEGROOT Radiology Department PHYS: ELLIS. Hai Winter Mccollum MD [address] : 1995 AGE: 24 SEX: F [place], [place] [address] LOC: .ERS PHONE #: [phone] EXAM DATE: 08/01/2020 STATUS: REG ER FAX #: [phone] RAD NO: Page 2 Signed Report 1 Patient Name: FATMATA DEGROOT Unit No: [id number] EXAMS: CPT CODE: [id number] CT ABD PELVIS W/O CONT 27712 (Continued) Orig Print D/T: S: 08/01/2020 (1101) [facility] NAME: FATMATA DEGROOT Radiology Department PHYS: Hai Winter Mccollum MD [address] : 1995 AGE: 24 SEX: F [place] [address] LOC: .ERS PHONE #: [phone] EXAM DATE: 08/01/2020 STATUS: REG ER FAX #: [phone] RAD NO: Page 3 Signed Report 1UA [...] culture: Suprapubic PainSpecimen Description: CLEAN CATCHUR HCG [id number] 10:04:00 Test Item Value Reference Range Interpretation [...] Description: CLEAN CATCHUA RFLX MICR CULT IF [id number] 10:03:00 Test Item Value Reference Range Interpretation [...] culture: Suprapubic PainSpecimen Description: CLEAN CATCHUR HCG [id number] 10:03:00 Test Item Value Reference Range Interpretation Comments UR HCG QUAL (test code = HCGQLU) Indication for culture: Suprapubic PainSpecimen Description: CLEAN CATCH [id number] 14:39:00 Test Item Value Reference Range Interpretation Comments APPEARANCE (test code = Hazy Clear A 9843831880) COLOR (test code = Yellow Yellow 5542947615) PH (test code = 4.8-8.0 3584196877) SP GRAVITY (test code = 1.003-1.030 3311357525) GLU U QUAL (test code = Normal Normal 7831731158) BLOOD (test code = Negative Negative INTERFERE NCE FROM 5159521522) ASCORBIC ACID M AY CAUSE FALSE NEG ATIVE RESULT KETONES (test code = Negative Negative 8402505811) PROTEIN (test code = Negative Negative 2887-8) UROBILIN (test code = Normal Normal 3644307211) BILIRUBIN (test code = Negative Negative 5853434521) NITRITE (test code = Negative Negative 6097812735) LEUK SILVINO (test code = Negative Negative 7080343844) RBC/HPF (test code = See_Comment [Autom ated message] 1692623448) The system Edam[employer] generated this result transmitted ref erence range: 0 - 3 HP F. The reference range was not used to int erpret this result as normal/abnormal . WBC/HPF (test code = <1 See_Comment [Autom ated message] 4255489053) The system [employer] generated this result transmitted ref erence range: 0 - 5 HP F. The reference range was not used to int erpret this result as normal/abnormal . BACTERIA (test code = Few Negative A 5268865216) MUCOUS (test code = Slight Negative LPF A 5335847250) SQ EPITH (test code = HPF 8362541546) Lab Interpretation (test Abnormal code = 98171-1) [facility] [id number] 14:08:00 Test Item Value Reference Range Interpretation Comments POCT PREG (test code = 1605) negative On board controls acceptable with present C Line (test code = 3574) POCT PREG LOT # (test code = 3575) [id number] POCT PREG TEST DATE (test 2022-02-25 code = 3576) Lab Interpretation (test code = Normal 01448-7) General acute hospital WITH [id number] 12:41:00 Test Item Value Reference Range Interpretation [...] RDW-SD (test code = 40.8 fL 39-49.9 56363-1) RDW-CV (test code = 13.0 % 12-15.5 788-0) PLT (test code = See_Comment H [Automated 777-3) message] The sy stem which generated this result transmitted reference range : 166 - 358 10*3/ ?L. The reference r shira was not used to interpret this result as normal/abnormal . MPV (test code = 9.5 fL 9.5-12.9 64557-2) NRBC/100 WBC (test See_Comment [Automat ed code = 3567135712) message] The system which generated this result transmitted reference range : 0.0 - 10.0 /100 WBCs. The refer ence range was not u sed to interpret th is result as normal/abnormal . NRBC x10^3 (test code <0.01 See_Comment [Auto mated = 7322816431) message] The s ystem which generated this result transmitted reference range : 10*3/?L. The reference range was not used to interpret this result as normal/abnormal . GRAN MAT (NEUT) % 49.7 % (test code = 770-8) IMM GRAN % (test code 0.40 % = 0105890832) LYMPH % (test code = 37.6 % 736-9) MONO % (test code = 6.3 % 5905-5) EOS % (test code = 5.4 % 713-8) BASO % (test code = 0.6 % 706-2) GRAN MAT x10^3(ANC) 4.65 10*3/uL 1.88-7.09 (test code = 8510823801) IMM GRAN x10^3 (test 0.04 10*3/uL 0-0.06 code = 5267090776) LYMPH x10^3 (test code 3.52 10*3/uL 1.32-3.29 H = 731-0) MONO x10^3 (test code 0.59 10*3/uL 0.33-0.92 = 742-7) EOS x10^3 (test code = 0.51 10*3/uL 0.03-0.39 H 711-2) BASO x10^3 (test code 0.06 10*3/uL 0.01-0.07 = 704-7) Lab Interpretation Abnormal (test code = 49487-5) General acute hospital W/AUTO [id number] 07:27:00 Test Item Value Reference Range Interpretation [...] NORMAL code = PLTMR) AG HEPATITIS B [id number] 04:15:00 Test Item Value Reference Range Interpretation Comments AG HEPATITIS B SURFACE (test code NONREACTIVE NONREACTIVE = HBSAG) AB HEPATITIS C [id number] 04:15:00 Test Item Value Reference Range Interpretation Comments AB HEPATITIS C (test code = NONREACTIVE NONREACTIVE HCVAB) SIGNAL TO CUTOFF (test code = 0.13 <0.80 N CUTOFF) RUBELLA [id number] 04:15:00 Test Item Value Reference Range Interpretation Comments RUBELLA SCREEN 70.2 IUnit/ml Results >10. 0IUnits/ml (test code = are considered positive RUBSC) inaccordance wi th the CLSI guidelines and based on the [employer] S tandard for Anti-Rubell a serum as anindicator of immune status and a br eakpoint to detect mostseropositiv e persons. AB [id number] 04:15:00 Test Item Value Reference Range Interpretation Comments AB TREPONEMA (test code = TREPAB) NONREACTIVE NONREACTIVE AG HEPATITIS B [id number] 04:00:00 Test Item Value Reference Range Interpretation Comments AG HEPATITIS B SURFACE (test code NONREACTIVE NONREACTIVE = HBSAG) AB HEPATITIS C [id number] 04:00:00 Test Item Value Reference Range Interpretation Comments AB HEPATITIS C (test code = HCVAB) NONREACTIVE SIGNAL TO CUTOFF (test code = CUTOFF) <0.80 RUBELLA [id number] 04:00:00 Test Item Value Reference Range Interpretation Comments RUBELLA SCREEN 70.2 IUnit/ml Results >10. 0IUnits/ml (test code = are considered positive RUBSC) inaccordance wi th the CLSI guidelines and based on the [employer] S tandard for Anti-Rubell a serum as anindicator of immune status and a br eakpoint to detect mostseropositiv e persons. AB [id number] 04:00:00 Test Item Value Reference Range Interpretation Comments AB TREPONEMA (test code = TREPAB) NONREACTIVE NONREACTIVE CBC W/AUTO [id number] 00:36:00 Test Item Value Reference Range Interpretation [...]
[2022-07-23 20:03] LABS: Urine Blood Trace-intact (Negative); Urine Glucose Trace (Negative); Urine Protein 1+ (Negative); Urine Specific Gravity 1.015 (1.005-1.030); Urine pH 7.5 (5.0-7.0)
[2022-07-23 20:11] LABS: Urine Specific Gravity/Preg 1.015 (1.005-1.030)
[2022-07-23] MEDS ORDERED: ONDANSETRON 4 MG/2 ML VIAL ONE (20:12)
[2022-07-23] MEDS ORDERED: MORPHINE 4 MG/ML SYR ONE ×3 (20:12→22:40)
[2022-07-23] MEDS ORDERED: NA CHLORIDE 0.9% 1,000 ML ONE (20:13)
[2022-07-23 20:21] LABS: Urine Bacteria None Seen /HPF (<20); Urine Mucus 2+ /HPF (None Seen)
--- NOTE | 2022-07-23 21:08 | RAD REPORT ---
EXAM DESCRIPTION: CT - Stone Protocol - 07/23/2022 8:56 pm CLINICAL HISTORY: Abdominal pain. Right flank pain COMPARISON: April 2022 TECHNIQUE: Computed axial tomography of the abdomen pelvis was obtained without oral or IV contrast. Lack of IV and oral contrast limits evaluation of solid organs, appendix, bowel, and vessels. Alvarez l reformatted images were obtained and reviewed. All CT scans are performed using dose optimization technique as appropriate and may include automated exposure control or mA/KV adjustment according to patient size. FINDINGS: A renal calculus is not seen. An ureteral calculus is not noted. A bladder calculus is not present. No hydronephrosis The liver, spleen, pancreas and adrenals appear grossly normal There is no evidence of diverticulitis. The appendix appears normal A tiny umbilical hernia. Mild diastases rectus abdominis muscles IMPRESSION: Negative for a genitourinary calculus
--- NOTE | 2022-07-23 21:10 | RAD REPORT ---
EXAM DESCRIPTION: US - Abdomen Exam Limited - 07/23/2022 8:39 pm CLINICAL HISTORY: Abdominal pain. COMPARISON: 2017 FINDINGS: Gallbladder is contracted. The gallbladder wall is not thickened. A gallstone is not seen. The biliary tree is normal caliber. IMPRESSION: Contracted gallbladder. Otherwise unremarkable exam
[2022-07-23 21:24] LABS: Absolute Lymphocytes (CBC) 2.4 K/uL (0.7-4.9); Hematocrit 39.2 % (36.0-45.0); Lymphocytes % 29.7 % (15.3-44.8); MCV 89.4 fL (80-100); RBC Red Blood Cell Count 4.39 M/uL (3.86-4.86)
[2022-07-23] MEDS ORDERED: NA CHLORIDE 0.9% 50 ML IV ONE (21:31)
[2022-07-23] MEDS ORDERED: CEFTRIAXONE 1000 MG/VIAL ONE (21:31)
[2022-07-23 21:39] LABS: Albumin 3.2 g/dL (3.4-5.0); Bilirubin Total 0.3 mg/dL (0.2-1.0); Protein, Total 6.8 g/dL (6.4-8.2)
[2022-07-23] MEDS ORDERED: DIPHENHYDRAMINE 50 MG/ML VIAL ONE (21:50)
--- NOTE | 2022-07-23 22:13 | ER ---
Nurse's Notes [facility] Name: Carla Duncan Age: 26 yrs Sex: Female : 1995 Arrival Date: 07/23/2022 Time: 18:49 Bed 30 Private MD: Pancho Ortega Diagnosis: UTI/ Urinary tract infection, site not specified Presentation: 07/23 19:03 Chief complaint: Patient states: seen yesterday at [facility] and reports she was aa5 notified today that her WBC count was high. Pt states "My back hurts and I am peeing blood". Coronavirus screen: At this time, the client does not indicate any symptoms associated with coronavirus-19. Ebola Screen: Patient denies travel to an Ebola-affected area in the 21 days before illness onset. Initial Sepsis Screen: Does the patient meet any 2 criteria? No. Patient's initial sepsis screen is negative. Does the patient have a suspected source of infection? No. Patient's initial sepsis screen is negative. Risk Assessment: Do you want to hurt yourself or someone else? Patient reports no desire to harm self or others. Onset of symptoms was June 2022. 19:03 Method Of Arrival: Ambulatory aa5 19:03 Acuity: VENKATESH 3 aa5 RADIO DIVISION CAPTAIN: 19:05 LMP 06/26/2022 aa5 Historical: - Allergies: 19:04 Amoxicillin; aa5 19:04 Naproxen; aa5 19:04 Stadol; aa5 19:04 Toradol; aa5 19:04 Tylenol-Codeine #3; aa5 - Home Meds: 22:29 clonazepam 1 mg Oral tab 1 tab 2 times per day [Active]; Trazodone Oral [Active]; eh3 - PMHx: 19:04 adhd; Anxiety; Asthma; Bipolar disorder; Hypertensive disorder; aa5 - PSHx: 19:04 section; aa5 - Immunization history:: Adult Immunizations unknown. - Social history:: Smoking status: Patient denies any tobacco usage or history of. Screenin:15 [facility] ED Fall Risk Assessment (Adult) History of falling in the last 3 months, eh3 including since admission No falls in past 3 months (0 pts) Confusion or Disorientation No (0 pts) Intoxicated or Sedated No (0 pts) Impaired Gait No (0 pts) Mobility Assist Device Used No (0 pt) Altered Elimination Yes (1 pt) Score/Fall Risk Level 0 - 2 = Low Risk. Abuse screen: Denies threats or abuse. Denies injuries from another. Nutritional screening: No deficits noted. Tuberculosis screening: No symptoms or risk factors identified. Assessment: 19:15 General: Appears in no apparent distress. uncomfortable, Behavior is calm, cooperative, eh3 appropriate for age. Pain: Complains of pain in right mid back and right upper quadrant. Neuro: Level of Consciousness is awake, alert, obeys commands, Oriented to person, place, time, situation. Cardiovascular: Capillary refill < 3 seconds Patient's skin is warm and dry. Respiratory: Airway is patent Respiratory effort is even, unlabored, Respiratory pattern is regular, symmetrical. GI: Abdomen is round non-distended. : Reports blood in urine. EENT: No signs and/or symptoms were reported regarding the EENT system. Derm: No signs and/or symptoms reported regarding the dermatologic system. Skin is pink, warm \\T\\ dry. Musculoskeletal: No signs and/or symptoms reported regarding the musculoskeletal system. Circulation, motion, and sensation intact. Range of motion: intact in all extremities. 20:15 Reassessment: Patient appears in no apparent distress at this time. Patient and/or 3 family updated on plan of care and expected duration. Pain level reassessed. Patient is alert, oriented x 3, equal unlabored respirations, skin warm/dry/pink. 21:15 Reassessment: Patient appears in no apparent distress at this time. Patient and/or 3 family updated on plan of care and expected duration. Pain level reassessed. Patient is alert, oriented x 3, equal unlabored respirations, skin warm/dry/pink. 22:15 Reassessment: Patient appears in no apparent distress at this time. Patient and/or eh3 family updated on plan of care and expected duration. Pain level reassessed. Patient is alert, oriented x 3, equal unlabored respirations, skin warm/dry/pink. 22:47 Reassessment: Pt discharged but requests to stay until IV fluids have completed eh3 infusing. 500mL currently remains to be infused. 23:15 Reassessment: Patient appears in no apparent distress at this time. Patient and/or eh3 family updated on plan of care and expected duration. Pain level reassessed. Patient is alert, oriented x 3, equal unlabored respirations, skin warm/dry/pink. Vital Signs: 19:03 BP 120 / 79; Pulse 104; Resp 18 S; Temp 98.0(TE); Pulse Ox 100% on R/A; Height 5 ft. 0 aa5 in. (152.40 cm) (R); 21:15 BP 104 / 72; Pulse 86; Resp 18; Pulse Ox 99% on R/A; eh3 22:15 BP 115 / 74; Pulse 84; Resp 18; Pulse Ox 99% on R/A; eh3 23:15 BP 107 / 63; Pulse 84; Resp 18; Pulse Ox 99% on R/A; eh3 ED Course: 18:49 Patient arrived in ED. as 18:49 Pancho Ortega MD is Private Physician. as 19:01 Michael Dowd PA is PHCP. cp 19:01 Maikel Oneill MD is Attending Physician. cp 19:03 Arm band placed on. aa5 19:04 Triage completed. aa5 19:15 Patient has correct armband on for positive identification. Bed in low position. Call eh3 light in reach. Side rails up X2. Pulse ox on. NIBP on. Door closed. Noise minimized. Warm blanket given. 19:52 Alma Marrufo, RN is Primary Nurse. eh3 20:08 Urine collected: clean catch specimen, radha colored. wm 20:10 Urine Microscopic Only Sent. wm 20:41 US Abdomen Limited In Process Unspecified. EDMS 20:58 CT Stone Protocol In Process Unspecified. EDMS 22:29 No provider procedures requiring assistance completed. eh3 23:33 IV discontinued, intact, bleeding controlled, No redness/swelling at site. Pressure eh3 dressing applied. Administered Medications: 20:24 Drug: Zofran (Ondansetron) 4 mg Route: IVP; Site: right antecubital; kr3 21:00 Follow up: Response: No adverse reaction eh3 20:25 Drug: NS 0.9% 1000 ml Route: IV; Rate: 1 bolus; Site: right antecubital; kr3 23:33 Follow up: IV Status: Completed infusion; IV Intake: 1000ml eh3 20:26 Drug: morphine 4 mg Route: IVP; Infused Over: 4 mins; Site: right antecubital; kr3 21:00 Follow up: Response: Pain is decreased eh3 21:30 Drug: Rocephin - (cefTRIAXone) 1 grams Route: IVPB; Infused Over: 30 mins; Site: right eh3 antecubital; 21:45 Follow up: Response: No adverse reaction; IV Status: Completed infusion; IV Intake: 69xkfi0 21:35 Drug: morphine 4 mg Route: IVP; Infused Over: 4 mins; Site: right antecubital; eh3 22:20 Follow up: Response: Pain is decreased eh3 22:20 Drug: Benadryl (diphenhydrAMINE) 12.5 mg Route: IVP; Site: right antecubital; eh3 22:48 Follow up: Response: No adverse reaction eh3 22:35 Drug: morphine 4 mg Route: IVP; Infused Over: 4 mins; Site: right antecubital; eh3 23:33 Follow up: Response: Pain is decreased eh3 Medication: 22:29 VIS not applicable for this client. eh3 Intake: 21:45 IV: 50ml; Total: 50ml. eh3 23:33 IV: 1000ml; Total: 1050ml. eh3 Outcome: 22:12 Discharge ordered by MD. pm1 23:34 Discharged to home ambulatory. eh3 23:34 Condition: stable 23:34 Discharge instructions given to patient, Instructed on discharge instructions, follow up and referral plans. medication usage, Demonstrated understanding of instructions, follow-up care, medications, Prescriptions given X 2. 23:34 Patient left the ED. eh3 Signatures: Dispatcher [employer] EDAdele Wyatt Audri, RN RN aa5 Michael Dowd PA PA Skyler Kulkarni, [employer] AUTOMATION CONTROL INTEGRATOR pm1 Nakia Echols Erin, RN RN eh3 Rola Mcwilliams RN RN kr3 Corrections: (The following items were deleted from the chart) 22:25 21:30 BP 104 / 72; Pulse 86bpm; Resp 18bpm; Pulse Ox 99% RA; eh3 eh3
--- NOTE | 2022-07-23 22:13 | EDPHYS ---
Physician Documentation [facility] Name: Carla Duncan Age: 26 yrs Sex: Female : 1995 Arrival Date: 07/23/2022 Time: 18:49 Bed 30 Private MD: Pancho Ortega ED Physician Maikel Oneill HPI: 07/23 20:00 This 26 yrs old Female presents to ER via Ambulatory with complaints of Fever, cp Back Pain, Urinary Problem, Abnormal Lab Results. 20:00 The patient complains of pain in the right flank pain. cp 20:00 The pain radiates to the lower abdomen. cp 20:00 Associated signs and symptoms: Pertinent positives: dysuria, fever, Pertinent cp negatives: diarrhea, pain radiating to the lower extremities, vomiting. The patient reports fever, not measured (subjective). 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 - Social history:: Smoking status: Patient denies any tobacco usage or history of. ROS: 20:05 Constitutional: Negative for body aches, fever, poor PO intake. cp 20:05 Eyes: Negative for injury, pain, redness, and discharge. cp 20:05 Cardiovascular: Negative for chest pain, edema, palpitations. 20:05 Respiratory: Negative for cough, shortness of breath, wheezing. 20:05 Abdomen/GI: Positive for abdominal pain, of the right upper quadrant, Negative for vomiting, diarrhea, constipation. 20:05 Back: Positive for flank pain, on the right. 20:05 : Positive for urinary symptoms, hematuria. 20:05 Neuro: Negative for altered mental status, numbness, weakness. 20:05 All other systems are negative. Exam: 20:10 Constitutional: The patient appears in no acute distress, alert, awake, non-toxic, well cp developed, well nourished, overweight 20:10 Head/Face: Normocephalic, atraumatic. cp 20:10 Eyes: Periorbital structures: appear normal, Conjunctiva: normal, no exudate, no injection, Sclera: no appreciated abnormality, Lids and lashes: appear normal, bilaterally. 20:10 ENT: External ear(s): are unremarkable, Nose: is normal, Mouth: Lips: moist, Oral mucosa: pink and intact, moist, Posterior pharynx: is normal, airway is patent, no erythema, no exudate. 20:10 Chest/axilla: Inspection: normal. 20:10 Cardiovascular: Rate: tachycardic, Rhythm: regular. 20:10 Respiratory: the patient does not display signs of respiratory distress, Respirations: normal, no use of accessory muscles, no retractions, labored breathing, is not present, Breath sounds: are clear throughout, no decreased breath sounds, no stridor, no wheezing. 20:10 Abdomen/GI: Inspection: abdomen appears normal, Bowel sounds: active, all quadrants, Palpation: soft, in all quadrants, moderate abdominal tenderness, in the right upper quadrant, rebound tenderness, is not appreciated, involuntary guarding, is not appreciated. 20:10 Back: pain, that is moderate, of the right mid back, ROM is normal. 20:10 Neuro: Orientation: to person, place \T\ time. Mentation: is normal, Motor: moves all fours, strength is normal. Vital Signs: 19:03 BP 120 / 79; Pulse 104; Resp 18 S; Temp 98.0(TE); Pulse Ox 100% on R/A; Height 5 ft. 0 aa5 in. (152.40 cm) (R); 21:15 BP 104 / 72; Pulse 86; Resp 18; Pulse Ox 99% on R/A; eh3 22:15 BP 115 / 74; Pulse 84; Resp 18; Pulse Ox 99% on R/A; eh3 23:15 BP 107 / 63; Pulse 84; Resp 18; Pulse Ox 99% on R/A; eh3 MDM: 19:03 Patient medically screened. cp 20:10 Differential diagnosis: nephrolithiasis, pyelonephritis, pancreatitis, cholecystitis, cp cholelithiasis UTI. 22:11 Data reviewed: vital signs. pm1 22:11 Counseling: I had a detailed discussion with the patient and/or guardian regarding: the pm1 historical points, exam findings, and any diagnostic results supporting the discharge/admit diagnosis, lab results, radiology results, the need for outpatient follow up, to return to the emergency department if symptoms worsen or persist or if there are any questions or concerns that arise at home. 22:12 Patient medically screened. pm1 22:54 ED course: Patient was seen in the ER yesterday over [facility] and was discharged pm1 home with Augmentin and Macrobid. Patient reports she had a high white count yesterday which is the possible reason for both antibiotics. Patient has taken the Macrobid only, has not filled the Augmentin yet. Patient without elevation in WBCs, positive for UTI for urine result. Urine culture has been collected. Recommend patient to continue taking both antibiotics prescribed and we will follow-up on culture. 07/23 19:56 Order name: CBC with Diff; Complete Time: 22:11 07/23 19:56 Order name: CMP; Complete Time: 22:11 07/23 19:56 Order name: Lipase; Complete Time: 22:11 07/23 19:56 Order name: Urine Microscopic Only; Complete Time: 20:30 07/23 20:30 Interpretation: Normal except: URBC 5-10. 07/23 20:04 Order name: Urine Dipstick-Ancillary; Complete Time: 20:30 EDMS 07/23 20:30 Interpretation: Normal except: UBLD Trace-intact; UPH 7.5; UPROT 1+; UNIT Positive. 07/23 20:09 Order name: Urine --Ancillary (enter results); Complete Time: 20:30 wm 07/23 19:56 Order name: US Abdomen Limited; Complete Time: 21:11 07/23 21:11 Interpretation: Report reviewed. 07/23 19:56 Order name: CT Stone Protocol; Complete Time: 21:11 07/23 21:11 Order name: Urine Culture 07/23 19:56 Order name: IV Saline Lock; Complete Time: 20:26 07/23 19:56 Order name: Labs collected and sent; Complete Time: 20:26 07/23 19:56 Order name: Urine Dipstick-Ancillary (obtain specimen); Complete Time: 20:10 cp 07/23 19:56 Order name: Urine Test (obtain specimen); Complete Time: 20:10 cp Administered Medications: 20:24 Drug: Zofran (Ondansetron) 4 mg Route: IVP; Site: right antecubital; kr3 21:00 Follow up: Response: No adverse reaction eh3 20:25 Drug: NS 0.9% 1000 ml Route: IV; Rate: 1 bolus; Site: right antecubital; kr3 23:33 Follow up: IV Status: Completed infusion; IV Intake: 1000ml eh3 20:26 Drug: morphine 4 mg Route: IVP; Infused Over: 4 mins; Site: right antecubital; kr3 21:00 Follow up: Response: Pain is decreased eh3 21:30 Drug: Rocephin - (cefTRIAXone) 1 grams Route: IVPB; Infused Over: 30 mins; Site: right eh3 antecubital; 21:45 Follow up: Response: No adverse reaction; IV Status: Completed infusion; IV Intake: [id number] 21:35 Drug: morphine 4 mg Route: IVP; Infused Over: 4 mins; Site: right antecubital; eh3 22:20 Follow up: Response: Pain is decreased eh3 22:20 Drug: Benadryl (diphenhydrAMINE) 12.5 mg Route: IVP; Site: right antecubital; eh3 22:48 Follow up: Response: No adverse reaction eh3 22:35 Drug: morphine 4 mg Route: IVP; Infused Over: 4 mins; Site: right antecubital; eh3 23:33 Follow up: Response: Pain is decreased eh3 Disposition Summary: 07/23/22 22:12 Discharge Ordered Location: Home pm1 Problem: new pm1 Symptoms: have improved pm1 Condition: Stable pm1 Diagnosis - UTI/ Urinary tract infection, site not specified pm1 Followup: pm1 - With: Emergency Department - When: As needed - Reason: Worsening of condition Followup: pm1 - With: Private Physician - When: 2 - 3 days - Reason: Recheck today's complaints, Continuance of care, Re-evaluation by your physician Discharge Instructions: - Discharge Summary Sheet pm1 - Urinary Tract Infection, Adult pm1 Forms: - Medication Reconciliation Form pm1 - Thank You Letter pm1 - Antibiotic Education pm1 - Prescription Opioid Use pm1 Prescriptions: - Tramadol 50 mg Oral Tablet - take 1 tablet by ORAL route every 8 hours As needed as needed; 12 tablet; pm1 Refills: 0, Product Selection Permitted - ondansetron 4 mg Oral - take 4 milligrams by SUBLINGUAL route every 8 hours; 15 tablet; Refills: 0, pm1 Product Selection Permitted Signatures: Dispatcher [employer] EDRashida Zambrano RN RN aa5 Michael Dowd PA PA cp Marinas, Patrick, [employer] DEVELOPER [employer] DEVELOPER pm1 Alma Marrufo RN RN eh3 Rola Mcwilliams RN RN kr3
[2022-07-24 01:26] VITALS: TEMP 98
[2022-07-24 01:28] VITALS: O2SAT 99
[2022-07-24 01:30] VITALS: BP 107/63
== END 2022-07-23 23:34 | disposition home or self-care (01) ==
LOC: ER 18:48
DX: N39.0 Urinary tract infection, site not specified (principal); I10 Essential (primary) hypertension; Z88.1 Allergy status to other antibiotic agents; Z88.5 Allergy status to narcotic agent
CPT/HCPCS: 96361; 87088; 85025; 87086; 36415; 81025; 83690; 80053; 76377; 74176; 76705; 96375; 96374; 99284; J1200; J7030; J2405; 81003; 81015

== ENCOUNTER 2022-07-31 16:08 | Emergency (ER) | payer OTHER ==
--- OUTSIDE RECORDS SUMMARY | 2022-07-31 16:28 | XMS REPORT | Continuity of Care Document ---
:1995 Author Organization [facility] t Address [address] [place] [address] Care Team Providers Name Role Phone Asked, No Pcp Primary Care Physician Unavailable Nash Schwab MD Attending Clinician MENDY LIRIANO Attending Clinician Unavailable Calvin AREVALO, Lorena Real Attending Clinician [phone] Mendy Liriano MD Attending Clinician IZA DENSON [...] Date Expiration Date S shobha GOODETTER FROM [id number] 2020 [facility] 00:00:00 [facility] [id number] 2019 00:00:00 Problems Condition Condition Condition Status Onset Resolution Last Treating Co mments Source Name Details Category Date Date Treatment Clinician Date Obesity Obesity Disease Active Univers (BMI (BMI 1-16 ity of 30-39.9) 30-39.9) 00:00: [place] [address] Medical Branch Urinary Urinary Disease Active Univers [...] 00 take with Medic al s Benadryl [place] KETOROLA DRUG Active Other-Cmnt Univ ers C [...] l of [place] codeine DA Active DE 2018- [facility] [place] morphine DA Active U SWELLING 2018- [facility] 1-19 [facility] [place] codeine DA Active DE nausea, 2018- [facility] headache -19 [facility] [place] tramadol DA Active DE 2018- [facility] 2-31 [facility] 00:[facility]: [facility] [place] tramadol DA Active DE CHEST PAIN 2017- [facility] 2-31 [facility] 00:00: [...] [facility] Natural mother Menstrual problems [facility] Social History Social Habit Start Date Stop Date Quantity Comments Source Alcohol intake 2022-07-22 2022-07-22 Current drinker [facility] 00:00:00 00:00:00 of alcohol (finding) Exposure to 2022-05-18 2022-05-28 Not sure University of SARS-CoV-2 00:00:00 17:41:00 [facility] (event) [place] Tobacco use and 2022-03-26 2022-03-26 Smokeless tobacco [facility] exposure 00:00:00 00:00:00 non-user Alcohol Comment 2016-04-28 2016-04-28 social, weekly [facility] 00:00:00 00:00:00 Sex Ass[birth year] At [birth year] [facility] 00:00:00 00:00:00 Smoking Status Start Date Stop Date Source Never smoked tobacco [facility] Medications Ordered Filled Start Stop Current Ordering Indication Dosage Frequency Signature Comments Components Source Medication Medication Date Date Medication? Clinician (SIG) Name Name ciprofloxac 2022-0 Yes 500mg Q.5D Take 1 [facility] in (CIPRO) 1-[address] 500 MG 00:00: (500 mg Hospita tablet 00 total) by l mouth 2 (two) times a day. ciprofloxac 3-0 Yes 500mg Q.5D Take 1 [facility] in (CIPRO) 1-[address] 500 MG 00:00: (500 mg Hospita tablet 00 total) by l mouth 2 (two) times a day. ciprofloxac 3-0 Yes 500mg Q.5D Take 1 Met hodi in (CIPRO) 1-[address] 500 MG 00:00: (500 mg Hospita tablet 00 total) by l mouth 2 (two) times a day. keTOROlac 2022-2022- No 10mg Q6H Take 1 Metho di (TORadol) 07-22 tablet (10 st 10 mg 00:00: 05:59 mg total) Hospit a tablet 00 :00 by mouth l every 6 (six) hours as needed for moderate pain for up to 5 days. keTOROlac 2022-0 2022- Yes 10mg Q6H Take 1 Metho di (TORadol) 07-22 tablet (10 st 10 mg 00:00: 05:59 mg total) Hospit a tablet 00 :00 by mouth l every 6 (six) hours as needed for moderate pain for up to 5 days. keTOROlac 2022-0 2022- Yes 10mg Q6H Take 1 Metho di (TORadol) 07-22 tablet (10 st 10 mg 00:00: 05:59 mg total) Hospit a tablet 00 :00 by mouth l every 6 (six) hours as needed for moderate pain for up to 5 days. phenazopyri 2022-0 2022- No 200mg Q.[id number] Take 1 Methodi dine 07-[id number] (Pyridium) 00:00: 05:59 3D (200 mg Hos radha 200 MG 00 :00 total) by l tablet mouth 3 (three) times a day as needed for bladder spasms for up to 3 days. phenazopyri 2022- Yes 200mg Q.[id number] Take 1 Methodi dine 07-[id number] (Pyridium) 00:00: 05:59 3D (200 mg Hos radha 200 MG 00 :00 total) by l tablet mouth 3 (three) times a day as needed for bladder spasms for up to 3 days. phenazopyri 2022- No 200mg Q.[id number] Take 1 Methodi dine 07-[id number] (Pyridium) 00:00: 05:59 3D (200 mg Hos radha 200 MG 00 :00 total) by l tablet mouth 3 (three) times a day as needed for bladder spasms for up to 3 days. diphenhydrA 2021-06 No 25mg 25 mg, Uni vers MINE 07-30 Oral, ity of (BENADRYL) 04:30: 04:21 ONCE, 1 [place] as tablet 25 00 :00 dose, On Medica l mg [facility] 05/28/22 at 2230, RODRICK FENTanyl PF 2021-06 No 75ug 75 mcg, Un carolann (SUBLIMAZE 07-30 Slow IV ity o f (PF)) 04:30: 03:51 Push, [place] injection 00 :00 ONCE, 1 Medical 75 mcg dose, On Branch [facility] 05/28/22 at 2230, Routine doxycycline 2021-06 No 100mg 100 mg, U nivers hyclate 07-30 Oral, ity of (Vibramycin 03:45: 03:51 [place] 1 [place] capsule 00 :00 dose, On Medica l 100 mg [facility] 05/28/22 at 2145, RODRICK
Re ason for Anti-Infec tive: Documented Infection< br>Documen jd Infection Site: Pelvic
Duration of Therapy: Other (see Comments) morpHINE (4 2021-06 No 4mg 4 mg, Slow Univers mg/mL) 07-30 IV Push, ity of injection 4 02:30: 02:47 [place]CE, 1 [place] mg 00 :[place] dose, On Medical [facility] Branch 05/28/22 at 2030, STAT ketorolac 2021-06- No 15mg 15 mg, Unive rs (TORADOL) 07-30 Slow IV ity of injection 01:45: 01:01 Push, [place] 15 mg 00 :00 ONCE, 1 Medical dose, On [facility] 05/28/22 at 1945, Routine iopamidol 2021-06- No [id number] 75mL 75 mL, Univers (ISOVUE 07-30 Intravenou ity o f 370-500 mL) 01:15: 01:15 s, ONCE, 1 [place] injection 00 :00 dose, On Medica l 75 mL [facility] 05/28/22 at 1915, Routine FENTanyl PF 2021-06- No 50ug 50 mcg, Un carolann (SUBLIMAZE 07-30 Slow IV ity o f (PF)) 01:00: 00:11 Push, [place] injection 00 :00 ONCE, 1 Medical 50 mcg dose, On Branch [facility] 05/28/22 at 1900, Routine ondansetron 2021-06- No 4mg 4 mg, Slow Univers (ZOFRAN 07-30 IV Push, ity of (PF)) 00:15: 00:11 ONCE, 1 [place] injection 4 00 :00 dose, On Medi [place] mg [facility] 05/28/22 at 1815, RODRICK metroNIDAZO 2021-06 Yes [id number] 500mg Take 1 Univers LE 500 mg 07-29 tablet by ity o f tablet 00:00: mouth in [place] 00 the Medical morning Branch and 1 tablet in the evening. doxycycline 2021-06- Yes [id number] 100mg Take 1 Univers hyclate 100 07-29 [...] 20 mg ity of capsule 12:44: capsule [facility] famotidine No 20mg 20 mg, Univ ers (PEPCID AC) 02-27 Oral, ity of tablet 20 05:00: 05:00 ONCE, 1 [place] mg 00 :[place] dose, On Medical Wed02/27/22 Branch at 0000, RODRICK ALPRAZolam 2021- [...] 20 mg ity of capsule 23:48: capsule [facility] ciprofloxac 2021- No 500mg Q.5D [...] a day for 7 days. phenazopyri 2021-0 202- No 200mg Q.[id number] Take 1 Methodi dine 02-[id number] (PYRIDIUM) 00:00: 04:59 3D (200 mg Hos radha 200 MG 00 :00 total) by l tablet mouth 3 (three) times a day for 3 days. phenazopyri 2021-0 2022- No 200mg Q.[id number] Take 1 Methodi dine 02-[id number] (PYRIDIUM) 00:00: 04:59 3D (200 mg Hos radha 200 MG 00 :00 total) by l tablet mouth 3 (three) times a day for 3 days. phenazopyri 2021-0 2022- No 200mg Q.[id number] Take 1 Methodi dine 02-[id number] (PYRIDIUM) 00:00: 04:59 3D (200 mg Hos radha 200 MG 00 :00 total) by l tablet mouth 3 (three) times a day for 3 days. phenazopyri 202-0 2022- No 200mg Q.[id number] Take 1 Methodi dine 02-[id number] (PYRIDIUM) 00:00: 04:59 3D (200 mg Hos radha 200 MG 00 :00 total) by l tablet mouth 3 (three) times a day for 3 days. phenazopyri 2021-0 2022- No 200mg Q.[id number] Take 1 Methodi dine 02-[id number] (PYRIDIUM) 00:00: 04:59 3D (200 mg Hos radha 200 MG 00 :00 total) by l tablet mouth 3 (three) times a day for 3 days. phenazopyri 2021-0 2021- No 200mg Q.[id number] Take 1 Methodi dine 02-[id number] (PYRIDIUM) 00:00: 04:59 3D (200 mg Hos radha 200 MG 00 :00 total) by l tablet mouth 3 (three) times a day for 3 days. phenazopyri 2021-0 2021- No 200mg Q.[id number] Take 1 Methodi dine 02-[id number] (PYRIDIUM) 00:00: 04:59 3D (200 mg Hos radha 200 MG 00 :00 total) by l tablet mouth 3 (three) times a day for 3 days. phenazopyri 2021-0 2021- No 200mg Q.[id number] Take 1 Methodi dine 02-[id number] (PYRIDIUM) 00:00: 04:59 3D (200 mg Hos radha 200 MG 00 :00 total) by l tablet mouth 3 (three) times a day for 3 days. phenazopyri 2021-0 2021- No 200mg Q.[id number] Take 1 Methodi dine 02-[id number] (PYRIDIUM) 00:00: 04:59 3D (200 mg Hos radha 200 MG 00 :00 total) by l tablet mouth 3 (three) times a day for 3 days. phenazopyri 2021-0 2022- No 200mg Q.[id number] Take 1 Methodi dine 02-[id number] (PYRIDIUM) 00:00: 04:59 3D (200 mg Hos radha 200 MG 00 :00 total) by l tablet mouth 3 (three) times a day for 3 days. phenazopyri 2021- No 200mg Q.[id number] Take 1 Methodi dine 8-24 08-[id number] (PYRIDIUM) 00:00: 04:59 3D (200 mg Hos radha 200 MG 00 :00 total) by l tablet mouth 3 (three) times a day for 3 days. ondansetron 2020- No 4mg 4 mg, Univ ers (ZOFRAN-ODT 12-31 Oral, ity of ) 09:15: 08:20 ONCE, 1 [place] disintegrat 00 :00 dose, Tu Med ical ing tablet 12/31/20 at Bran ch 4 mg 0415, Routine diphenhydrA 2020- No 25mg 25 mg, Uni vers MINE 12-31 Oral, ity of (BENADRYL) 09:15: 08:20 ONCE, 1 [place] as tablet 25 00 :00 dose, [facility] Medic al mg 12/31/20 at Branch 0415, RODRICK ibuprofen 2020- No 800mg 800 mg, Uni vers (IBU) 12-31 Oral, ity of tablet 800 08:00: 07:17 ONCE, 1 [place] as mg 00 :00 dose, [facility] Medical 12/31/20 at Branch 0300, RODRICK methocarbam 2020- No 1000mg 1,000 mg, Univers oL 12-31 Oral, ONCE ity of (ROBAXIN) 08:00: 07:17 NOW, 1 [place] tablet 00 :00 dose, [facility] Medical 1,000 mg 12/31/20 at Branch 0300, RODRICK ibuprofen Yes [id number] 800mg Take 1 U nivers 800 mg 7-06 tablet by ity of tablet 00:00: mouth [place] 00 every 8 Medical (eight) Branch hours as needed for Pain (scale 4-6). cyclobenzap Yes [id number] 10mg Take 1 Univers rine 10 mg 7-06 tablet by ity of tablet 00:00: mouth 3 [place] 00 (three) Medical times Branch daily as needed for Muscle Spasms. ibuprofen 2021- No [id number] 800mg Take 1 Univers 800 mg 12-31 tablet by ity of tablet 00:00: 00:00 mouth [place] 00 :00 every 8 Medical (eight) Branch hours as needed for Pain (scale 4-6). cyclobenzap 2021- No [id number] 10mg Take 1 Univers rine 10 mg [...] IV Medical Infusion, Branch ONCE, 1 dose, [facility] 11/20/20 at 1530, STAT metoclopram 2020- No 10mg 10 mg, Uni vers dio HCl 11-20 Slow IV ity of (REGLAN) 20:15: 19:18 Push, [place] injection 00 :00 ONCE, 1 Medical 10 mg dose, [facility] 11/20/20 at 1515, RODRICK ketorolac 2020- No 30mg 30 mg, Unive rs (TORADOL) 11-20 Slow IV ity of injection 20:15: 19:18 Push, [place] 30 mg 00 :00 ONCE, 1 Medical dose, [facility] 11/20/20 at 1515, RODRICK
Fa culty member approving Restricted medication : JOHN RIVERA diphenhydrA 2020- No 25mg 25 mg, Uni vers MINE 11-20 Slow IV ity of (BENADRYL) 20:15: 20:15 Push, [place] injection 00 :00 ONCE, 1 Medical 25 mg dose, [facility] 11/20/20 at 1515, STAT butalbital- 2021-0 Yes 1{tbl} 1 tablet, Univers acetaminoph 5-26 Oral, ity of en-caff 18:12: Q4HPRN, [place] (ESGIC) 27 Starting Medical 50-325-40 Wed Branch mg tablet 1 11/20/20 at tablet 1312, Until Discontinu ed, Routine, zofran ketorolac 2020- Yes [id number] 10mg Take 1 Un carolann 10 mg 5-26 tablet by ity of tablet 00:00: mouth [place] 00 every 6 Medical (six) Branch hours as needed for Pain (scale 4-6). cyclobenzap Yes [id number] 10mg Take 1 Univers rine 10 mg 5-26 tablet by ity of tablet 00:00: mouth 3 [place] 00 (three) Medical times Branch daily. ketorolac Yes [id number] 10mg Take 1 Un carolann 10 mg 5-26 tablet by ity of tablet 00:00: mouth [place] 00 every 6 Medical (six) Branch hours as needed for Pain (scale 4-6). cyclobenzap Yes [id number] 10mg Take 1 Univers rine 10 mg 5-26 tablet by ity of tablet 00:00: mouth 3 [place] 00 (three) Medical times Branch daily. ketorolac 2021- No [id number] 10mg Take 1 U nivers 10 mg 5-26 - tablet by ity of tablet 00:00: 00:00 mouth [place] 00 :00 every 6 Medical (six) Branch hours as needed for Pain (scale 4-6). cyclobenzap 2021- No [id number] 10mg Take 1 Univers rine 10 mg 5-26 09- tablet by ity [...] 09/26/20 Branch at 2245, RODRICK ondansetron Yes [id number] 4mg Take 1 Univers (ZOFRAN 4-01 tablet by ity of ODT) 4 mg 00:00: mouth [place] disintegrat 00 every 8 Medic al ing tablet (eight) Branch hours as needed for Nausea and Vomiting (N/V). ondansetron Yes [id number] 4mg Take 1 Univers (ZOFRAN 4-01 tablet by ity of ODT) 4 mg 00:00: mouth [place] disintegrat 00 every 8 Medic al ing tablet (eight) Branch hours as needed for Nausea and Vomiting (N/V). ondansetron Yes [id number] 4mg Take 1 Univers (ZOFRAN 4-01 tablet by ity of ODT) 4 mg 00:00: mouth [place] disintegrat 00 every 8 Medic al ing tablet (eight) Branch hours as needed for Nausea and Vomiting (N/V). ondansetron 2021- No [id number] 4mg Take 1 Univers (ZOFRAN 4-01 09-01 tablet by ity of ODT) 4 mg 00:00: 00:00 mouth [place] disintegrat 00 :00 every 8 Medic al ing tablet (eight) Branch hours as needed for Nausea and Vomiting (N/V). proMETHazin Yes [id number] 25mg Take 1 Univers e 25 mg 2-09 tablet by ity of tablet 00:00: mouth [place] 00 every 6 Medical (six) Branch hours as needed for Nausea and Vomiting (N/V). proMETHazin Yes [id number] 25mg Take 1 Univers e 25 mg 2-09 tablet by ity of tablet 00:00: mouth [place] 00 every 6 Medical (six) Branch hours as needed for Nausea and Vomiting (N/V). proMETHazin Yes [id number] 25mg Take 1 Univers e 25 mg 2-09 tablet by ity of tablet 00:00: mouth [place] 00 every 6 Medical (six) Branch hours as needed for Nausea and Vomiting (N/V). proMETHazin 2021- No [id number] 25mg Take 1 Univers e 25 mg 2-03 06- tablet by ity of tablet 00:00: 00:00 mouth [place] 00 :00 every 6 Medical (six) Branch hours as needed for Nausea and Vomiting (N/V). ketorolac 2020- No 15mg 15 mg, Unive rs (TORADOL) 07-17 Slow IV ity of injection 13:30: 12:29 Push, [place] 15 mg 00 :00 ONCE, 1 Medical dose, [facility] Branch 07/17/20 at 0730, RODRICK
Fa culty member approving Restricted medication : WILD COWART E NaCl 0.9% 2020- No 1000mL at 999 Uni vers (NS) IV 07-17 mL/hr, ity of infusion 13:30: 14:58 [place]venou [place] 1,000 mL 00 :00 s, ONCE, 1 Medic al dose, [facility] Branch 07/17/20 at 0730, RODRICK metoclopram 2020- No 10mg 10 mg, Uni vers dio HCl 07-17 Slow IV ity of (REGLAN) 13:30: 12:29 Push, [place] injection 00 :00 ONCE, 1 Medical 10 mg dose, [facility] Branch 07/17/20 at 0730, RODRICK ibuprofen 2018-06 [...] Hospita 500-60-15 17 l mg tablet acetaminoph 2019- Yes 2{tbl} Take 2 Me thodi en-caff-pyr 2-[address] ilamine 17:05: mouth. Hospita 500-60-15 17 l mg tablet acetaminoph 2019- Yes 2{tbl} Take 2 Me thodi en-caff-pyr 2-[address] ilamine 17:05: mouth. Hospita 500-60-15 17 l mg tablet acetaminoph 2019- Yes 2{tbl} Take 2 Me thodi en-caff-pyr 2-[address] ilamine 17:05: mouth. Hospita 500-60-15 17 l mg tablet acetaminoph 2019- Yes 2{tbl} Take 2 Me thodi en-caff-pyr 2-[address] ilamine 17:05: mouth. Hospita 500-60-15 17 l mg tablet acetaminoph 2018- Yes 2{tbl} Take 2 Me thodi en-caff-pyr 2-[address] ilamine 17:05: mouth. Hospita 500-60-15 17 l mg tablet acetaminoph 2019- Yes 2{tbl} Take 2 Me thodi en-caff-pyr 2-[address] ilamine 17:05: mouth. Hospita 500-60-15 17 l mg tablet acetaminoph 2019- Yes 2{tbl} Take 2 Me thodi en-caff-pyr 2-[address] ilamine 17:05: mouth. Hospita 500-60-15 17 l mg tablet acetaminoph 2019- Yes 2{tbl} Take 2 Me thodi en-caff-pyr 2-[address] ilamine 17:05: mouth. Hospita 500-60-15 17 l mg tablet acetaminoph 2019- Yes 2{tbl} Take 2 Me thodi en-caff-pyr 2-[address] ilamine 17:05: mouth. Hospita 500-60-15 17 l mg tablet acetaminoph 2019- Yes 2{tbl} Take 2 Me thodi en-caff-pyr 2-[address] ilamine 17:05: mouth. Hospita 500-60-15 17 l mg tablet 2018-0 Yes 1{packe Take 1 Univ ers [...] e Immunization Name Name Td 2011-06-28 Completed [place] [facility] 00:00:00 [facility] Td 2011-06-28 Completed University of 00:00:00 [facility] Td 2011-06-28 Completed University of 00:00:00 [facility] Td 2011-06-28 Completed University of 00:00:00 [facility] Td 2011-06-28 Completed University of :00: [facility] Td 2011-06-28 Completed [facility] 00:00:00 [facility] Vital Signs Vital Name Observation Time Observation Value Comments Source Systolic blood 2022-05-29 04:19:00 123 mm[Hg] Univer sity of pressure [facility] Diastolic blood 2022-05-29 04:19:00 87 mm[Hg] Unive rsity of pressure [place] [facility] Heart rate 2022-05-29 04:19:00 93 /min Universi ty of [place] [facility] Respiratory rate 2022-05-29 04:19:00 18 /min Univ ersity of [place] [facility] Oxygen saturation in 2022-05-29 04:19:00 97 /min University of Arterial blood by [facility] scott Pulse oximetry Branch Body temperature 2022-05-28 23:42:00 37.11 [place] Univ ersity of [place] [facility] Body height 2022-05-28 23:42:00 152.4 cm Universi ty of [place] [facility] Systolic blood 2022-02-27 05:31:00 130 mm[Hg] Univer sity of pressure [place] [facility] Diastolic blood 2022-02-27 05:31:00 87 mm[Hg] Unive rsity of pressure [place] [facility] Heart rate 2022-02-27 05:31:00 98 /min Universi ty of [place] [facility] Respiratory rate 2022-02-27 05:31:00 18 /min Univ ersity of [place] [facility] Oxygen saturation in 2022-02-27 05:31:00 99 /min University of Arterial blood by [facility] Pulse oximetry Branch Body height 2022-02-27 03:38:00 152.4 cm Universi ty of [place] [facility] Body weight 2022-02-27 03:38:00 82.101 kg Universi ty of [place] [facility] BMI 2022-02-27 03:38:00 35.35 kg/m2 Universi ty of [place] [facility] Body temperature 2022-02-27 03:36:00 36.28 [place] Univ ersity of [place] [facility] Systolic blood 2020-12-31 06:49:00 125 mm[Hg] Univer sity of pressure [place] [facility] Diastolic blood 2020-12-31 06:49:00 93 mm[Hg] Unive rsity of pressure [place] [facility] Heart rate 2020-12-31 06:49:00 104 /min Universi ty of [place] [facility] Body temperature 2020-12-31 06:49:00 36.83 [place] Univ ersity of [place] [facility] Respiratory rate 2020-12-31 06:49:00 15 /min Univ ersity of [place] [facility] Body height 2020-12-31 06:49:00 152.4 cm Universi ty of [place] [facility] Body weight 2020-12-31 06:49:00 92.5 kg Universi ty of [place] [facility] BMI 2020-12-31 06:49:00 39.83 kg/m2 Universi ty of [place] [facility] Oxygen saturation in 2020-12-31 06:49:00 99 /min University of Arterial blood by [facility] Pulse oximetry Branch Systolic blood 2020-12-31 06:49:00 125 mm[Hg] Univer sity of pressure [place] [facility] Diastolic blood 2020-12-31 06:49:00 93 mm[Hg] Unive rsity of pressure [place] [facility] Heart rate 2020-12-31 06:49:00 104 /min Universi ty of [place] [facility] Body temperature 2020-12-31 06:49:00 36.83 [place] Univ ersity of [place] [facility] Respiratory rate 2020-12-31 06:49:00 15 /min Univ ersity of [place] [facility] Body height 2020-12-31 06:49:00 152.4 cm Universi ty of [place] [facility] Body weight 2020-12-31 06:49:00 92.5 kg Universi ty of [place] [facility] BMI 2020-12-31 06:49:00 39.83 kg/m2 Universi ty of [place] [facility] Oxygen saturation in 2020-12-31 06:49:00 99 /min University of Arterial blood by [facility] Pulse oximetry Branch Systolic blood 2020-11-20 19:58:00 146 mm[Hg] Univer sity of pressure [place] [facility] Diastolic blood 2020-11-20 19:58:00 95 mm[Hg] Unive rsity of pressure [place] [facility] Heart rate 2020-11-20 19:58:00 98 /min Universi ty of [place] [facility] Body temperature 2020-11-20 19:58:00 37.17 [place] Univ ersity of [place] [facility] Respiratory rate 2020-11-20 19:58:00 17 /min Univ ersity of [place] [facility] Oxygen saturation in 2020-11-20 19:58:00 100 /min University of Arterial blood by [facility] Pulse oximetry Branch Body weight 2020-11-20 16:43:00 92.534 kg Universi ty of [place] [facility] BMI 2020-11-20 16:43:00 39.84 kg/m2 Universi ty of [place] [facility] Systolic blood 2020-11-20 19:58:00 146 mm[Hg] Univer sity of pressure [place] [facility] Diastolic blood 2020-11-20 19:58:00 95 mm[Hg] Unive rsity of pressure [place] [facility] Heart rate 2020-11-20 19:58:00 98 /min Universi ty of [place] [facility] Body temperature 2020-11-20 19:58:00 37.17 [place] Univ ersity of [place] [facility] Respiratory rate 2020-11-20 19:58:00 17 /min Univ ersity of [place] [facility] Oxygen saturation in 2020-11-20 19:58:00 100 /min University of Arterial blood by [place] [employer] scott Pulse oximetry Branch Body weight 2020-11-20 16:43:00 92.534 kg Universi ty of [place] [facility] BMI 2020-11-20 16:43:00 39.84 kg/m2 Universi ty [facility] [place] [facility] Body height 2020-09-26 23:49:00 152.4 cm Universi ty of [place] [facility] Body weight 2020-09-26 23:49:00 90.719 kg Universi ty of [place] [facility] BMI 2020-09-26 23:49:00 39.06 kg/m2 Universi ty of [place] [facility] Systolic blood 2020-09-26 23:45:00 103 mm[Hg] Univer sity of pressure [place] [facility] Diastolic blood 2020-09-26 23:45:00 62 mm[Hg] Unive rsity of pressure [place] [facility] Heart rate 2020-09-26 23:45:00 107 /min Universi ty of [place] [facility] Body temperature 2020-09-26 23:45:00 36.61 [place] Univ ersity of [place] [facility] Respiratory rate 2020-09-26 23:45:00 18 /min Univ ersity of [place] [facility] Oxygen saturation in 2020-09-26 23:45:00 97 /min University of Arterial blood by [employer] [place] Pulse oximetry Branch Body height 2020-09-26 23:49:00 152.4 cm Universi ty of [place] [facility] Body weight 2020-09-26 23:49:00 90.719 kg Universi ty of [place] [facility] BMI 2020-09-26 23:49:00 39.06 kg/m2 [facility] ty [facility] [place] [facility] Systolic blood 2020-09-26 23:45:00 103 mm[Hg] Univer sity of pressure [place] [facility] Diastolic blood 2020-09-26 23:45:00 62 mm[Hg] Unive rsity of pressure [place] [facility] Heart rate 2020-09-26 23:45:00 107 /min Universi ty of [place] [facility] Body temperature 2020-09-26 23:45:00 36.61 [place] Univ ersity of [place] [facility] Respiratory rate 2020-09-26 23:45:00 18 /min Univ ersity of [place] [facility] Oxygen saturation in 2020-09-26 23:45:00 97 /min University of Arterial blood by [place] [facility] Pulse oximetry Branch Systolic blood 2020-07-17 14:00:00 112 mm[Hg] Univer sity of pressure [place] [facility] Diastolic blood 2020-07-17 14:00:00 65 mm[Hg] Unive rsity of pressure [place] [facility] Heart rate 2020-07-17 14:00:00 86 /min Universi ty of [place] [facility] Respiratory rate 2020-07-17 14:00:00 20 /min Univ ersity of [place] [facility] Oxygen saturation in 2020-07-17 14:00:00 100 /min University of Arterial blood by [place] [facility] Pulse oximetry Branch Body temperature 2020-07-17 11:50:00 37.22 [place] Univ ersity of [place] [facility] Body weight 2020-07-17 11:50:00 86.183 kg Universi ty of [place] [facility] BMI 2020-07-17 11:50:00 37.11 kg/m2 Universi ty of [facility] Systolic blood 2020-07-17 14:00:00 112 mm[Hg] Univer sity of pressure [facility] Diastolic blood 2020-07-17 14:00:00 65 mm[Hg] Unive rsity of pressure [facility] Heart rate 2020-07-17 14:00:00 86 /min [facility] Respiratory rate 2020-07-17 14:00:00 20 /min [facility] Oxygen saturation in 2020-07-17 14:00:00 100 /min [facility] Arterial blood by [facility] Pulse oximetry Branch Body temperature 2020-07-17 11:50:00 37.22 [place] [facility] Body weight 2020-07-17 11:50:00 86.183 kg [facility] BMI 2020-07-17 11:50:00 37.11 kg/m2 [facility] Systolic blood 2022-07-22 19:04:00 122 mm[Hg] [facility] pressure Diastolic blood 2022-07-22 19:04:00 72 mm[Hg[facility] Heart rate 2022-07-22 19:04:00 72 /min [facility] Respiratory rate 2022-07-22 19:04:00 18 /min [facility] Oxygen saturation in 2022-07-22 19:04:00 100 /min [facility] Arterial blood by Pulse oximetry Body temperature 2022-07-22 17:04:00 36.72 [place] [facility] Body height 2022-07-22 17:04:00 157.5 cm [facility] Body weight 2022-07-22 17:04:00 85.276 kg [facility] BMI 2022-07-22 17:04:00 34.39 kg/m2 [facility] Systolic blood 2022-03-26 13:44:00 139 mm[Hg] [facility] pressure Diastolic blood 2022-03-26 13:44:00 83 mm[Hg] [facility] pressure Heart rate 2022-03-26 13:44:00 101 /min [facility] Respiratory rate 2022-03-26 13:44:00 18 /min [facility] Oxygen saturation in 2022-03-26 13:44:00 100 /min [facility] Arterial blood by Pulse oximetry Body temperature 2022-03-26 12:32:00 36.72 [place] [facility] Body height 2022-03-26 12:32:00 157.5 cm [facility] Body weight 2022-03-26 12:32:00 85.276 kg [facility] BMI 2022-03-26 12:32:00 34.39 kg/m2 [facility] Procedures Procedure Date / Time Performing Clinician Source Performed URINE CULTURE 2022-07-22 19:12:00 Nash Schwab [facility] COMPREHENSIVE METABOLIC 2022-07-22 17:33:00 ZaheerNash nicholas [facility] PANEL ESTIMATED GFR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 Line (test code = 3574) POCT PREG LOT # (test code = 3575) [id number] POCT PREG TEST DATE (test 02/25/2022 code = 3576) Lab Interpretation (test code = Normal 65136-9) [facility] GC DNA BY [id number] 14:24:00 Test Item Value Reference Range Interpretation Comments C. TRACHOMATIS DNA BY Negative Negative PCR (test code = CHLAMTDNA) N. GONORRHOEAE DNA BY Negative Negative Perfor med At: ST PCR (test code = [facility] NGONORDNA) [id number] [place], [place] [id number] Rodrigues MD Ph:[phone] - [facility] AB/PEL/SC/[id number] 14:12:00 [facility] : 1995 Sex: F Patient Name: FATMATA DEGROOT Unit No: [id number] EXAMS: CPT CODE: [id number] DUP AB/PEL/SC/LTD 16937 PELVIC ULTRASOUND, 08/01/2020: COMPARISON: CT pelvis dated [...] Alexandra Elder RDMS Probe: Trnscrbd D/ (1412) Trang.AJ13 Orig Print D/T: S: 08/01/2020 (1415) [facility] NAME: FATMATA DEGROOT Radiology Department PHYS: CANAL. Winter Mccollum MD [address] : 1995 AGE: 24 SEX: F [place], [place] [address] LOC: [place] PHONE #: [phone] EXAM DATE: 08/01/2020 STATUS: REG ER FAX #: [phone] RAD NO: Page 1 Signed Report Patient Name: FATMATA DEGROOT Unit No: [id number] EXAMS: CPT CODE: [id number] DUP AB/PEL/SC/LTD 62419 (Continued) [facility] NAME: FATMATA DEGROOT Radiology Department PHYS: CANAL. Winter Mccollum MD [address] : 1995 AGE: 24 SEX: F [place], [place] [address] LOC: ShaylaERS PHONE #: [phone] EXAM DATE: 08/01/2020 STATUS: REG ER FAX #:[phone] RAD NO: Page 2 Signed Report- US TRANSVAGINAL W/PELVIS 2020-08-01 14:12:00 [facility] : 1995 Sex: F Patient Name: FATMATA DEGROOT Unit No: [id number] EXAMS: CPT CODE: [id number] US TRANSVAGINAL W/PELVIS 22877 PELVIC ULTRASOUND, 08/01/2020: COMPARISON: CT pelvis dated [...] Wild Barrera Technologist: Alexandra Elder RDMS Probe: [id number] Trnscrbd D/ (1412) t.SDR.AJ13 Orig Print D/T: S: 08/01/2020 (1415) [facility] NAME: FATMATA DEGROOT Radiology Department PHYS: CANAL. Winter Mccollum MD [address] : 1995 AGE: 24 SEX: F [place] [address] LOC: ShaylaERS PHONE #: [phone] EXAM DATE: 08/01/2020 STATUS: REG ER FAX #: [phone] RAD NO: Page 1 Signed Report Patient Name: FATMATA DEGROOT Unit No: [id number] EXAMS: CPT CODE: [id number] US TRANSVAGINAL W/PELVIS 23775 (Continued) [facility] NAME: ZANEFATMATA Radiology Department PHYS: ELLIS. Winter Mccollum MD [address] : 1995 AGE: 24 SEX: F [place] [address] LOC: ShaylaERS PHONE #: [phone] EXAM DATE: 08/01/2020 STATUS: REG ER FAX #: [phone] RAD NO: Page 2 Signed Report- US PELVIS [id number] 14:12:00 [facility] : 1995 Sex: F Patient Name: FATMATA DEGROOT Unit No: [id number] EXAMS: CPT CODE: [id number] US PELVIS COMPLETE 34256 PELVIC ULTRASOUND, 08/01/2020: COMPARISON: CT pelvis dated [...] D/ (1412) LuisR.AJ13 Orig Print D/T: S: 08/01/2020(1415) [facility] NAME: FATMATA DEGROOT Radiology Department PHYS: CANAL. - o,Winter MD [address] : 1995 AGE: 24 SEX: F [place], [place] [address] : [place]aylaERS PHONE #: [phone] EXAM DATE: 08/01/2020 STATUS: REG ER FAX #: [phone] RAD NO: Page 1 Signed Report Patient Name: FATMATA DEGROOT Unit No: [id number] EXAMS: CPT CODE: [id number] US PELVIS COMPLETE 49463 (Continued) [facility] NAME: FATMATA DEGROOT Radiology Department PHYS: Winter Landaverde MD [address] : 1995 AGE: 24 SEX: F [place] [address] LOC: ShaylaERS PHONE #: [phone] EXAM DATE: 08/01/2020 STATUS: REG ER FAX #:[phone] RAD NO: Page 2 Signed Report- CT ABD PELVIS W/O [id number] 10:58:00 [facility] 1995 Sex: F Patient Name: FATMATA DEGROOT Unit No: [id number] EXAMS: CPT CODE: [id number] CT ABD PELVIS W/O CONT 87665 CT ABDOMEN/CT STONE SURVEY WITHOUT CONTRAST, 08/01/2020 [...] mm right middle lobe pulmonary nodule. [facility] NAME: FATMATA DEGROOT Radiology Department PHYS: CANALWinter Murray MD [address] : 1995 AGE: 24 SEX: F [place], [place] [address] LOC: SANDY PHONE #: [phone] EXAM DATE: 08/01/2020 STATUS: BALTAZAR LOVE FAX #: [phone] RAD NO: Page 1 Signed Report 1 Patient Name: FATMATA DEGROOT Unit No: [id number] EXAMS: CPT CODE: [id number] CT ABD PELVIS W/O CONT 90049 (Continued) CT PELVIS WITHOUT CONTRAST: No opaque [...] CTDI: 13.28 DLP: 653.43 Trnscrbd D/ (1058) Trang.AJ13 [facility] NAME: FATMATA DEGROOT Radiology Department PHYS: [facility]. Winter Mccollum MD [address] : 1995 AGE: 24 SEX: F [place] [address] LOC: .ERS PHONE #: [phone] EXAM DATE: 08/01/2020 STATUS: REG ER FAX #: [phone] RAD NO: Page 2 Signed Report 1 Patient Name: FATMATA DEGROOT Unit No: [id number] EXAMS: CPT CODE: [id number] CT ABD PELVIS W/O CONT 46327 (Continued) Orig Print D/T: S: 08/01/2020 (1101) [facility] NAME: DEGROOTLYUBOV PHILLIPRINA Radiology Department PHYS: [facility] Winter Mccollum MD [address] : 1995 AGE: 24 SEX: F [place] [address] LOC: .ERS PHONE #: [phone] EXAM DATE: 08/01/2020 STATUS: REG ER FAX #: [phone] RAD NO: Page 3 Signed Report 1UA RFLX MICR CULT IF [id number] 10:04:00 Test Item Value Reference Range Interpretation [...] culture: Suprapubic PainSpecimen Description: CLEAN CATCHUR HCG [id number] 10:04:00 Test Item Value Reference Range Interpretation [...] Description: CLEAN CATCHUA RFLX MICR CULT IF [id number] 10:03:00 Test Item Value Reference Range Interpretation [...] culture: Suprapubic PainSpecimen Description: CLEAN CATCHUR HCG [id number] 10:03:00 Test Item Value Reference Range Interpretation Comments UR HCG QUAL (test code = HCGQLU) Indication for culture: Suprapubic PainSpecimen Description: CLEAN CATCH [id number] 14:39:00 Test Item Value Reference Range Interpretation Comments APPEARANCE (test code = Hazy Clear A 0647182042) COLOR (test code = Yellow Yellow 3194806968) PH (test code = 4.8-8.0 1184770956) SP GRAVITY (test code = 1.003-1.030 0947342474) GLU U QUAL (test code = Normal Normal 6497966635) BLOOD (test code = Negative Negative INTERFERE NCE FROM 1957583316) ASCORBIC ACID M AY CAUSE FALSE NEG ATIVE RESULT KETONES (test code = Negative Negative 6255366832) PROTEIN (test code = Negative Negative 2887-8) UROBILIN (test code = Normal Normal 9970874613) BILIRUBIN (test code = Negative Negative 8905552546) NITRITE (test code = Negative Negative 9685346082) LEUK SILVINO (test code = Negative Negative 2482771350) RBC/HPF (test code = See_Comment [Autom ated message] 9758246199) The system [employer] generated this result transmitted ref erence range: 0 - 3 HP F. The reference range was not used to int erpret this result as normal/abnormal . WBC/HPF (test code = <1 See_Comment [Autom ated message] 1412815785) The system [employer] generated this result transmitted ref erence range: 0 - 5 HP F. The reference range was not used to int erpret this result as normal/abnormal . BACTERIA (test code = Few Negative A 4180632174) MUCOUS (test code = Slight Negative LPF A 0184500024) SQ EPITH (test code = HPF 5326528204) Lab Interpretation (test Abnormal code = 33964-3) [facility] [id number] 14:08:00 Test Item Value Reference Range Interpretation Comments POCT PREG (test code = 1605) negative On board controls acceptable with present C Line (test code = 3574) POCT PREG LOT # (test code = 3575) [id number] POCT PREG TEST DATE (test 2022-02-25 code = 3576) Lab Interpretation (test code = Normal 56744-7) [facility] WITH [id number] 12:41:00 Test Item Value Reference Range Interpretation [...] RDW-SD (test code = 40.8 fL 39-49.9 83239-6) RDW-CV (test code = 13.0 % 12-15.5 788-0) PLT (test code = See_Comment H [Automated 777-3) message] The sy stem which generated this result transmitted reference range : 166 - 358 10*3/ ?L. The reference r shira was not used to interpret this result as normal/abnormal . MPV (test code = 9.5 fL 9.5-12.9 18584-8) NRBC/100 WBC (test See_Comment [Automat ed code = 1259454121) message] The system which generated this result transmitted reference range : 0.0 - 10.0 /100 WBCs. The refer ence range was not u sed to interpret th is result as normal/abnormal . NRBC x10^3 (test code <0.01 See_Comment [Auto mated = 7909699784) message] The s ystem which generated this result transmitted reference range : 10*3/?L. The reference range was not used to interpret this result as normal/abnormal . GRAN MAT (NEUT) % 49.7 % (test code = 770-8) IMM GRAN % (test code 0.40 % = 2604252130) LYMPH % (test code = 37.6 % 736-9) MONO % (test code = 6.3 % 5905-5) EOS % (test code = 5.4 % 713-8) BASO % (test code = 0.6 % 706-2) GRAN MAT x10^3(ANC) 4.65 10*3/uL 1.88-7.09 (test code = 1331248197) IMM GRAN x10^3 (test 0.04 10*3/uL 0-0.06 code = 8077983874) LYMPH x10^3 (test code 3.52 10*3/uL 1.32-3.29 H = 731-0) MONO x10^3 (test code 0.59 10*3/uL 0.33-0.92 = 742-7) EOS x10^3 (test code = 0.51 10*3/uL 0.03-0.39 H 711-2) BASO x10^3 (test code 0.06 10*3/uL 0.01-0.07 = 704-7) Lab Interpretation Abnormal (test code = 42185-3) [facility] W/AUTO [id number] 07:27:00 Test Item Value Reference Range Interpretation [...] NORMAL code = PLTMR) AG HEPATITIS B [id number] 04:15:00 Test Item Value Reference Range Interpretation Comments AG HEPATITIS B SURFACE (test code NONREACTIVE NONREACTIVE = HBSAG) AB HEPATITIS C [id number] 04:15:00 Test Item Value Reference Range Interpretation Comments AB HEPATITIS C (test code = NONREACTIVE NONREACTIVE HCVAB) SIGNAL TO CUTOFF (test code = 0.13 <0.80 N CUTOFF) RUBELLA [id number] 04:15:00 Test Item Value Reference Range Interpretation Comments RUBELLA SCREEN 70.2 IUnit/ml Results >10. 0IUnits/ml (test code = are considered positive RUBSC) inaccordance wi th the CLSI guidelines and based on the [employer] S tandard for Anti-Rubell a serum as anindicator of immune status and a br eakpoint to detect mostseropositiv e persons. AB [id number] 04:15:00 Test Item Value Reference Range Interpretation Comments AB TREPONEMA (test code = TREPAB) NONREACTIVE NONREACTIVE AG HEPATITIS B [id number] 04:00:00 Test Item Value Reference Range Interpretation Comments AG HEPATITIS B SURFACE (test code NONREACTIVE NONREACTIVE = HBSAG) AB HEPATITIS C [id number] 04:00:00 Test Item Value Reference Range Interpretation Comments AB HEPATITIS C (test code = HCVAB) NONREACTIVE SIGNAL TO CUTOFF (test code = CUTOFF) <0.80 RUBELLA [id number] 04:00:00 Test Item Value Reference Range Interpretation Comments RUBELLA SCREEN 70.2 IUnit/ml Results >10. 0IUnits/ml (test code = are considered positive RUBSC) inaccordance wi th the CLSI guidelines and based on the [employer] S tandard for Anti-Rubell a serum as anindicator of immune status and a br eakpoint to detect mostseropositiv e persons. AB [id number] 04:00:00 Test Item Value Reference Range Interpretation Comments AB TREPONEMA (test code = TREPAB) NONREACTIVE NONREACTIVE CBC W/AUTO [id number] 00:36:00 Test Item Value Reference Range Interpretation [...]
[2022-07-31 16:50] LABS: Urine Blood Trace-lysed (Negative); Urine Glucose Negative (Negative); Urine Protein Negative (Negative)
--- NOTE | 2022-07-31 17:15 | RAD REPORT ---
EXAM DESCRIPTION: RAD - Ribs Left - 07/31/2022 5:07 pm CLINICAL HISTORY: Left rib pain FINDINGS: Two views obtained. No fracture seen
--- NOTE | 2022-07-31 17:17 | RAD REPORT ---
EXAM DESCRIPTION: RAD - Hip Left 2 View - 07/31/2022 5:07 pm CLINICAL HISTORY: Left hip pain status post injury FINDINGS: No fracture or dislocation is seen.
--- NOTE | 2022-07-31 17:32 | ER ---
Nurse's Notes [facility] Name: Carla Duncan Age: 26 yrs Sex: Female : 1995 Arrival Date: 07/31/2022 Time: 16:10 Bed IW2 Private MD: Diagnosis: Pain in left hip-from fall;Chest pain, unspecified-left lateral from fall Presentation: 07/31 16:22 Chief complaint: Patient states: I fell last Wednesday in the bathtub, I hit my left hip ko1 and ribs and I need and xray and some toradol or something. Coronavirus screen: At this time, the client does not indicate any symptoms associated with coronavirus-19. Ebola Screen: No symptoms or risks identified at this time. Initial Sepsis Screen: Does the patient meet any 2 criteria? No. Patient's initial sepsis screen is negative. Does the patient have a suspected source of infection? No. Patient's initial sepsis screen is negative. Risk Assessment: Do you want to hurt yourself or someone else? Patient reports no desire to harm self or others. Onset of symptoms was July 31, 2022. 16:22 Method Of Arrival: Ambulatory ko1 16:22 Acuity: VENKATESH 4 ko1 Triage Assessment: 16:25 General: Appears in no apparent distress. uncomfortable, Behavior is calm, cooperative, ko1 appropriate for age. Pain: Complains of pain in left hip. 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 - Social history:: Smoking status: Patient denies any tobacco usage or history of. Screenin:50 [facility] ED Fall Risk Assessment (Adult) History of falling in the last 3 months, ko1 including since admission Yes- single mechanical fall (1 pt) Confusion or Disorientation No (0 pts) Intoxicated or Sedated No (0 pts) Impaired Gait No (0 pts) Mobility Assist Device Used No (0 pt) Altered Elimination No (0 pt) Score/Fall Risk Level 0 - 2 = Low Risk Oriented to surroundings, Maintained a safe environment, Educated pt \T\ family on fall prevention, incl call for assistance when getting out of bed, Assessed \T\ reinforced patient's understanding of fall precautions, Provided non-skid footwear, Hourly rounding (assess needs \T\ fall precautionary measures) done, Used ambulatory aids as needed (educated on \T\ assisted with), Used gait belt as appropriate. Abuse screen: Denies threats or abuse. Denies injuries from another. Nutritional screening: No deficits noted. Tuberculosis screening: No symptoms or risk factors identified. Vital Signs: 16:25 BP 125 / 86; Pulse 94; Resp 18; Temp 97.8; Pulse Ox 99% ; Height 5 ft. 0 in. (152.40 ko1 cm); Pain 8/10; ED Course: 16:10 Patient arrived in ED. as 16:15 Michael Dowd PA is PHCP. cp 16:15 Hal Watters MD is Attending Physician. cp 16:24 Triage completed. ko1 16:25 Arm band placed on left wrist. Patient placed in waiting room, Patient notified of wait ko1 time. 17:08 XRAY Hip LEFT 2 view In Process Unspecified. EDMS 17:08 XRAY Ribs LEFT In Process Unspecified. EDMS 17:50 Lauryn Begum, RN is Primary Nurse. ko1 17:50 Patient has correct armband on for positive identification. ko1 17:50 No provider procedures requiring assistance completed. Patient did not have IV access ko1 during this emergency room visit. Administered Medications: 17:52 Not Given (Patient Refused): Tylenol 1000 mg PO once ko1 Medication: 17:50 VIS not applicable for this client. ko1 Outcome: 17:31 Discharge ordered by . cp 17:50 Discharged to home ambulatory. ko1 17:50 Condition: stable 17:50 Discharge instructions given to patient, Instructed on discharge instructions, follow up and referral plans. medication usage, Demonstrated understanding of instructions, follow-up care, medications, Prescriptions given X 1. 17:53 Patient left the ED. ko1 Signatures: Dispatcher [employer] Adele Brown Corey, PA PA cp Oliver, Kathy RN RN ko1 Corrections: (The following items were deleted from the chart) 16:25 16:24 Allergies: Toradol; ko1 ko1
--- NOTE | 2022-07-31 17:32 | EDPHYS ---
Physician Documentation [facility] Name: Carla Duncan Age: 26 yrs Sex: Female : 1995 Arrival Date: 07/31/2022 Time: 16:10 Bed IW2 Private MD: ED Physician Hal Watters HPI: 07/31 16:35 This 26 yrs old Female presents to ER via Ambulatory with complaints of Fall. cp 16:35 Details of fall: The patient fell from an upright position, while walking. Onset: The cp symptoms/episode began/occurred 6 day(s) ago. Associated injuries: The patient sustained injury to the chest, specifically the left lower lateral rib area, tenderness, left hip, painful injury. Severity of symptoms: in the emergency department the symptoms are unchanged, despite home interventions. Patient reports slip and fall 6 days ago in which she struck bathtub. Patient c/o pain to left rib area and left hip. Reports this is first evaluation after fall. 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 - Social history:: Smoking status: Patient denies any tobacco usage or history of. ROS: 16:40 Eyes: Negative for injury, pain, redness, and discharge. cp 16:40 Constitutional: Negative for body aches, fever, poor PO intake. 16:40 Neck: Negative for pain with movement, pain at rest, stiffness. 16:40 Cardiovascular: Positive for chest pain, of the left lateral chest. 16:40 Respiratory: Negative for cough, shortness of breath, wheezing. 16:40 Back: Negative for pain at rest, pain with movement. 16:40 MS/extremity: Positive for pain, of the left hip, Negative for decreased range of motion, deformity. 16:40 Neuro: Negative for altered mental status, dizziness, headache, syncope, weakness. 16:40 All other systems are negative. Exam: 16:45 Constitutional: The patient appears in no acute distress, alert, awake, non-toxic, well cp developed, well nourished, overweight 16:45 Head/Face: Normocephalic, atraumatic. cp 16:45 Eyes: Periorbital structures: appear normal, Conjunctiva: normal, Sclera: no appreciated abnormality, Lids and lashes: appear normal, bilaterally. 16:45 ENT: External ear(s): are unremarkable, Nose: is normal, Mouth: is normal. 16:45 Chest/axilla: Inspection: normal, Palpation: crepitus, is not appreciated, tenderness, that is mild, of the left lower lateral rib area. 16:45 Cardiovascular: Rate: normal, Rhythm: regular. 16:45 Respiratory: the patient does not display signs of respiratory distress, Respirations: normal, no use of accessory muscles, no retractions, labored breathing, is not present, Breath sounds: are clear throughout, no decreased breath sounds, no stridor, no wheezing. 16:45 Abdomen/GI: Inspection: abdomen appears normal, Palpation: abdomen is soft and non-tender, in all quadrants. 16:45 Musculoskeletal/extremity: Extremities: grossly normal except: noted in the left hip: pain, tenderness, There is no evidence of decreased ROM, deformity. 16:45 Skin: cellulitis, is not appreciated, no rash present. Vital Signs: 16:25 BP 125 / 86; Pulse 94; Resp 18; Temp 97.8; Pulse Ox 99% ; Height 5 ft. 0 in. (152.40 ko1 cm); Pain 8/10; MDM: 16:31 Patient medically screened. 17:30 Data reviewed: vital signs, nurses notes, radiologic studies, plain films. 17:30 I considered the following discharge prescriptions or medication management in the emergency department Medications were administered in the Emergency Department. See MAR. Test considered but Not performed: CT: chest /abdomen/pelvis. Counseling: I had a detailed discussion with the patient and/or guardian regarding: the historical points, exam findings, and any diagnostic results supporting the discharge/admit diagnosis, radiology results, to return to the emergency department if symptoms worsen or persist or if there are any questions or concerns that arise at home. 02 16:50 Order name: Urine Dipstick-Ancillary; Complete Time: 16:53 EDMS 07/31 16:53 Interpretation: Normal except: UBLD Trace-lysed; UESTR 1+. cp 07/31 17:01 Order name: Urine --Ancillary (enter results); Complete Time: 17:26 eb 07/31 16:31 Order name: XRAY Hip LEFT 2 view; Complete Time: 17:26 cp 07/31 17:27 Interpretation: Report reviewed. cp 07/31 16:31 Order name: XRAY Ribs LEFT; Complete Time: 17:26 cp 07/31 17:27 Interpretation: Report reviewed. cp Administered Medications: 17:52 Not Given (Patient Refused): Tylenol 1000 mg PO once ko1 Disposition: 08/01 15:19 Co-signature as Attending Physician, Hal Watters MD I reviewed the patient's care rn provided by the Advanced Practice Provider and agree with the diagnosis and treatment plan. Disposition Summary: 07/31/22 17:31 Discharge Ordered Location: Home cp Problem: new cp Symptoms: are unchanged cp Condition: Stable cp Diagnosis - Pain in left hip - from fall cp - Chest pain, unspecified - left lateral from fall cp Followup: cp - With: Private Physician - When: 2 - 3 days - Reason: Recheck today's complaints Discharge Instructions: - Discharge Summary Sheet cp - Chest Wall Pain cp - Hip Pain cp Forms: - Medication Reconciliation Form cp - Thank You Letter cp - Antibiotic Education cp - Prescription Opioid Use cp - Work release form eb Prescriptions: - methocarbamol 500 mg Oral Tablet - take 1 tablet by ORAL route 3 times per day As needed; 20 tablet; Refills: 0, cp Product Selection Permitted Signatures: Dispatcher [employer] EDMS Hal Watters MD MD rn Page, Corey, PA PA cp Oliver, Kathy, JUDI RN ko1 Corrections: (The following items were deleted from the chart) 07/31 16:25 16:24 Allergies: Toradol; ko1 ko1 08/01 15:15 07/31 14:45 Constitutional: Negative for body aches, fever, poor PO intake, cp cp 08/01 15:15 07/31 14:45 Eyes: Negative for injury, pain, redness, and discharge, cp cp 08/01 14:07/31 14:45 Neck: Negative for pain with movement, pain at rest, stiffness, cp cp 08/01 15: 02 14:45 Back: Negative for pain at rest, pain with movement, cp cp 08/01 14: 02 14:45 Respiratory: Negative for cough, shortness of breath, wheezing, cp cp 08/01 15: 02 14:45 Cardiovascular: Positive for chest pain, of the left lateral chest, cp cp 08/01 14:07/31 14:45 MS/extremity: Positive for pain, of the left hip, Negative for decreased cp range of motion, deformity, cp 08/01 15: 02 14:45 Neuro: Negative for altered mental status, dizziness, headache, syncope, cp weakness, cp 08/01 14: 02 14:45 All other systems are negative, cp cp
[2022-07-31 18:08] VITALS: BP 125/86; TEMP 97.8; O2SAT 99
== END 2022-07-31 17:53 | disposition home or self-care (01) ==
LOC: ER 16:08
DX: R07.9 Chest pain, unspecified (principal); M25.552 Pain in left hip; W18.30XA Fall on same level, unspecified, initial encounter; F31.9 Bipolar disorder, unspecified; I10 Essential (primary) hypertension; Z88.1 Allergy status to other antibiotic agents; Z88.5 Allergy status to narcotic agent
CPT/HCPCS: 81003; 81025; 99283

== ENCOUNTER 2022-08-28 12:32 | Emergency (ER) | payer OTHER ==
--- OUTSIDE RECORDS SUMMARY | 2022-08-28 12:38 | XMS REPORT | Continuity of Care Document ---
:1995 Author Organization [facility] t Address [address] [facility] [address] [place] [address] Care Team Providers Name Role Phone Asked, No Pcp Primary Care Physician Unavailable Nash Schwab MD Attending Clinician MENDY LIRIANO Attending Clinician Unavailable Calvin AREVALO, Lorena Real Attending Clinician [phone] Mendy Liriano MD Attending Clinician IZA DENSON Attending Clinician Unavailable Jessica AREVALO, Anai Attending Clinician AFSANEH CAR Attending Clinician Unavailable [...] Date Expiration Date S shobha GOODETTER FROM [id number] 2020 [facility] 00:00:00 [facility] [id number] 2019 00:00:00 Problems Condition Condition Condition Status Onset Resolution Last Treating Co mments Source Name Details Category Date Date Treatment Clinician Date Obesity Obesity Disease Active Univers (BMI (BMI 1-16 ity of 30-39.9) 30-39.9) 00:00: [place] [id number] Medical Branch Urinary Urinary Disease Active Univers [...] 00 take with Medic al s Benadryl [place] KETOROLA DRUG Active Other-Cmnt Univ ers C [...] of [place] codeine DA Active [place] nausea, 2018- [facility] headache -19 [facility] [place] tramadol DA Active MO 2018- [facility] 2-31 [facility] 00:[facility]: [facility] [place] tramadol DA Active [place] CHEST PAIN 2018- [facility] 2-31 [facility] 00:[facility]: [facility] 00 [facility] [place] Tramadol Propensi Active Other (See headache Methodi ty to Comments) 9-14 st adverse 00:00: Hospita reaction 00 l s to drug Acetamin Propensi Active Shortness Of 0 Methodi ophen-Co ty to Breath 9-14 st deine adverse 00:00: Hospita reaction 00 l s to drug ACETAMIN DRUG Active High SOB 2015- Univers OPHEN-CO 9-14 ity of DEINE 00:00: [place] 00 Medical Branch Acetamin Propensi Active Shortness of 2015- Univers ophen-Co ty to Breath 9-14 ity of deine adverse 00:00: [place] reaction 00 [facility] [place] TRAMADOL DRUG Active Anaphylaxis Uni vers INGREDI 5-07 ity of 00:00: [place] 00 Medical [place] TUSSIN DRUG Active Rash 2013-0 Univers DM COUGH 5-07 ity of MEDICINE 00:00: [place] 00 Medical Branch Tussin Propensi Active Rash 2013-0 Univers Dm Cough ty to 5-07 ity of Medicine adverse 00:00: [place] reaction 00 [facility] No Known DA Active U 2013- [facility] Allergie 3-14 Woman[facility] s 00:00: Hospita 00 l of [place] Family History Family Member Diagnosis Comments Start Date Stop Date Source Natural mother Diabetes [facility] Natural mother Menstrual problems [facility] Social History Social Habit Start Date Stop Date Quantity Comments Source Exposure to 2022-05-18 2022-05-28 Not sure [facility] SARS-CoV-2 00:00:00 17:41:00 [place] [facility] (event) Branch Alcohol intake 2022-02-27 2022-02-27 Current University of 00:00:00 00:00:00 non-drinker of [facility] alcohol (finding) Branch Alcohol Comment 2016-04-28 2016-04-28 social, weekly Metho [facility] 00:00:00 00:00:00 Tobacco use and 2013-11-01 2013-11-01 Smokeless tobacco Un iversity of exposure 00:00:00 00:00:00 non-user [place] [facility] Sex Assigned At [birth year] [facility] y of 00:00:00 00:00:00 [facility] Smoking Status Start Date Stop Date Source Never smoked tobacco [facility] Medications Ordered Filled Start Stop Current Ordering Indication Dosage Frequency Signature Comments Components Source Medication Medication Date Date Medication? Clinician (SIG) Name Name ciprofloxac 2023-0 Yes 500mg Q.5D Take 1 Met hodi [...] mouth 2 (two) times a day. keTOROlac 2022-0 2022- Yes 10mg Q6H Take [...] up to 5 days. keTOROlac 2022-0 2022- No 10mg Q6H Take 1 Metho di (TORadol) 07-22 tablet (10 st 10 mg 00:00: 05:59 mg total) Hospit a tablet 00 :00 by mouth l every 6 (six) hours as needed for moderate pain for up to 5 days. phenazopyri 2022-2022- Yes 200mg Q.[id number] Take 1 Methodi dine 07-[id number] (Pyridium) 00:00: 05:59 3D (200 mg Hos radha 200 MG 00 :00 total) by l tablet mouth 3 (three) times a day as needed for bladder spasms for up to 3 days. phenazopyri 2022- No 200mg Q.60996015 Take 1 Methodi dine 07-[id number] (Pyridium) 00:00: 05:59 3D (200 mg Hos radha 200 MG 00 :00 total) by l tablet mouth 3 (three) times a day as needed for bladder spasms for up to 3 days. phenazopyri No 200mg Q.[id number] Take 1 Methodi dine 07-[id number] (Pyridium) 00:00: 05:59 3D (200 mg Hos radha 200 MG 00 :00 total) by l tablet mouth 3 (three) times a day as needed for bladder spasms for up to 3 days. diphenhydrA 2021-06 No 25mg 25 mg, Uni vers MINE 07-30 Oral, ity of (BENADRYL) 04:30: 04:21 ONCE, 1 [place] as tablet 25 00 :00 dose, On Medica l mg [facility]3] 05/28/22 at 2230, RODRICK FENTanyl PF 2021-06 No 75ug 75 mcg, Un carolann (SUBLIMAZE 07-30 Slow IV ity o f (PF)) 04:30: 03:51 Push, [place] injection 00 :00 ONCE, 1 Medical 75 mcg dose, On [facility] 05/28/22 at 2230, Routine doxycycline 2021-06 No 100mg 100 mg, U nivers hyclate 07-30 Oral, ity of (Vibramycin 03:45: 03:51 [place]CE[place] capsule 00 :00 dose, On Medica l 100 mg [facility]3] 05/28/22 at 2145, RODRICK
Re ason for Anti-Infec tive: Documented Infection< br>Documen jd Infection Site: Pelvic
Duration of Therapy: Other (see Comments) morpHINE (4 2021-06 No 4mg 4 mg, Slow Univers mg/mL) 2-02 12-02 IV Push, ity of injection 4 02:30: 02:47 [place]CE, 1 [place] mg 00 :00 dose, On Medical [facility] Branch 05/28/22 at 2030, STAT ketorolac 2021-06- No 15mg 15 mg, Unive rs (TORADOL) 07-30 Slow IV ity of injection 01:45: 01:01 Push, [place] 15 mg 00 :00 ONCE, 1 Medical dose, On [facility] 05/28/22 at 1945, Routine iopamidol 2021-06- No [id number] 75mL 75 mL, Univers (ISOVUE 07-30 Intravenou ity o f 370-500 mL) 01:15: 01:15 s, ONCE, 1 [place] injection 00 :00 dose, On Medica l 75 mL [facility]3] 05/28/22 at 1915, Routine FENTanyl PF 2021-06 No 50ug 50 mcg, Un carolann (SUBLIMAZE 07-30 Slow IV ity o f (PF)) 01:00: 00:11 Push, [place] injection 00 :00 ONCE, 1 Medical 50 mcg dose, On Branch [facility] 05/28/22 at 1900, Routine ondansetron 2021-06 No 4mg 4 mg, Slow Univers (ZOFRAN 07-30 IV Push, ity of (PF)) 00:15: 00:11 ONCE, 1 [place] injection 4 00 :00 dose, On Medi scott mg [facility]3] 05/28/22 at 1815, RODRICK metroNIDAZO 2021-06 Yes [id number] 500mg Take 1 Univers LE 500 mg 07-29 tablet by ity o f tablet 00:00: mouth in [place] 00 the Medical morning Branch and 1 tablet in the evening. doxycycline 2021-06- No [id number] 100mg Take 1 Univers hyclate 100 07-29 capsule by i ty of mg capsule 00:00: 05:59 [place] :[place] the Medical morning Branch and 1 capsule in the evening. Do all this for 10 days. HYDROcodone 2021-06- No [id number] 1{tbl} Take 1 U nivers -acetaminop 07-29 tablet by it y of eduardo (NORCO) 00:00: 05:59 [place] 7.5-325 [...] as needed for mild pain. ibuprofen 2022-0 2022- No 800mg Q6H Take 800 Me thodi (ADVIL) 200 9-29 09-[address] MG tablet 08:46: 00:00 mouth Hospit a 55 :00 every 6 l (six) hours as needed for mild pain. ibuprofen 2021-0 2022- No 800mg Q6H Take 800 Me thodi (ADVIL) 200 9-29 09-[address] MG tablet 08:46: 00:00 mouth Hospit a 55 :00 every 6 l (six) hours as needed for mild pain. ibuprofen 2021-0 2022- No 800mg Q6H Take 800 Me thodi (ADVIL) 200 9-29 09-[address] MG tablet 08:46: 00:00 mouth Hospit a 55 :00 every 6 l (six) hours as needed for mild pain. ibuprofen 2021-0 2022- No 800mg Q6H Take 800 Me thodi (ADVIL) 200 9-29 09-[address] MG tablet 08:46: 00:00 mouth Hospit a 55 :00 every 6 l (six) hours as needed for mild pain. ibuprofen 2021-0 Yes 800mg Q8H Take 1 [...] 0.5 mg ity of tablet 12:44: tablet [facility] bupropion Yes bupropion Uni vers HBr 02-28 HBr ity of (APLENZIN 12:44: [place] ORAL) [facility] FLUoxetine Yes fluoxetine U nivers 20 mg 02-28 20 mg ity of capsule 12:44: capsule [facility] famotidine 2021- No 20mg 20 mg, Univ [...] 0.5 mg ity of tablet 23:48: tablet [facility] bupropion Yes bupropion Uni vers HBr 02-26 HBr ity of (APLENZIN 23:48: [place] ORAL) [facility] FLUoxetine Yes fluoxetine U nivers 20 mg 02-26 20 mg ity of capsule 23:48: capsule [facility] ciprofloxac 2021- No 500mg Q.5D Take 1 [...] 7 days. phenazopyri 2022-0 2022- No 200mg Q.[id number] Take 1 Methodi dine 02-[id number] (PYRIDIUM) 00:00: 04:59 3D (200 mg Hos radha 200 MG 00 :00 total) by l tablet mouth 3 (three) times a day for 3 days. phenazopyri 2022-0 2022- No 200mg Q.[id number] Take 1 Methodi dine 02-[id number] (PYRIDIUM) 00:00: 04:59 3D (200 mg Hos radha 200 MG 00 :00 total) by l tablet mouth 3 (three) times a day for 3 days. phenazopyri 2022-0 2022- No 200mg Q.21417701 Take 1 Methodi dine 02-[id number] (PYRIDIUM) 00:00: 04:59 3D (200 mg Hos radha 200 MG 00 :00 total) by l tablet mouth 3 (three) times a day for 3 days. phenazopyri 2022-0 2022- No 200mg Q.23659001 Take 1 Methodi dine 02-[id number] (PYRIDIUM) 00:00: 04:59 3D (200 mg Hos radha 200 MG 00 :00 total) by l tablet mouth 3 (three) times a day for 3 days. phenazopyri 2022-0 2022- No 200mg Q.[id number] Take 1 Methodi dine 02-[id number] (PYRIDIUM) 00:00: 04:59 3D (200 mg Hos radha 200 MG 00 :00 total) by l tablet mouth 3 (three) times a day for 3 days. phenazopyri 2021-0 2021- No 200mg Q.[id number] Take 1 Methodi dine 02-[id number] (PYRIDIUM) 00:00: 04:59 3D (200 mg Hos radha 200 MG 00 :00 total) by l tablet mouth 3 (three) times a day for 3 days. phenazopyri 2021-0 2021- No 200mg Q.[id number] Take 1 Methodi dine 02-[id number] (PYRIDIUM) 00:00: 04:59 3D (200 mg Hos radha 200 MG 00 :00 total) by l tablet mouth 3 (three) times a day for 3 days. phenazopyri 2021-0 2- No 200mg Q.[id number] Take 1 Methodi dine 02-[id number] (PYRIDIUM) 00:00: 04:59 3D (200 mg Hos radha 200 MG 00 :00 total) by l tablet mouth 3 (three) times a day for 3 days. phenazopyri 2-0 2022- No 200mg Q.[id number] Take 1 Methodi dine 02-[id number] (PYRIDIUM) 00:00: 04:59 3D (200 mg Hos radha 200 MG 00 :00 total) by l tablet mouth 3 (three) times a day for 3 days. phenazopyri 2022-0 2022- No 200mg Q.[id number] Take 1 Methodi dine 02-[id number] (PYRIDIUM) 00:00: 04:59 3D (200 mg Hos radha 200 MG 00 :00 total) by l tablet mouth 3 (three) times a day for 3 days. phenazopyri 2021- No 200mg Q.[id number] Take 1 Methodi dine 824 08-[id number] (PYRIDIUM) 00:00: 04:59 3D (200 [...] NOW, 1 [place] tablet 00 :00 dose, [facility] Medical 1,000 mg 12/31/20 at Branch 0300, RODRICK ibuprofen Yes [id number] 800mg Take 1 U nivers 800 mg 7- tablet by ity of tablet 00:00: mouth [place] 00 every 8 Medical (eight) Branch hours as needed for Pain (scale 4-6). cyclobenzap Yes [id number] 10mg Take 1 Univers rine 10 mg 7-06 tablet by ity of tablet 00:00: mouth 3 [place] 00 (three) Medical times Branch daily as needed for Muscle Spasms. ibuprofen 2021- No [id number] 800mg Take 1 Univers 800 mg 12-31 tablet by ity of tablet 00:00: 00:00 mouth [place] 00 :00 every 8 Medical (eight) Branch hours as needed for Pain (scale 4-6). cyclobenzap 2021- No [id number] 10mg Take 1 Univers rine 10 mg [...] IV Medical Infusion, Branch ONCE, 1 dose, [facility] 11/20/20 at 1530, STAT metoclopram No 10mg 10 mg, Uni vers dio HCl 11-20 Slow IV ity of (REGLAN) 20:15: 19:18 Push, [place] injection 00 :00 ONCE, 1 Medical 10 mg dose, [facility] Branch 11/20/20 at 1515, RODRICK ketorolac 2020- No 30mg 30 mg, Unive rs (TORADOL) 11-20 Slow IV ity of injection 20:15: 19:18 Push, [place] 30 mg 00 :00 ONCE, 1 Medical dose, [facility] Branch 11/20/20 at 1515, RODRICK
Fa culty member approving Restricted medication : JOHN RIVERA diphenhydrA 2020- No 25mg 25 mg, Uni vers MINE 11-20 Slow IV ity of (BENADRYL) 20:15: 20:15 Push, [place] injection 00 :00 ONCE, 1 Medical 25 mg dose, [facility] Branch 11/20/20 at 1515, STAT butalbital- Yes 1{tbl} 1 tablet, Univers acetaminoph 5-26 Oral, ity of en-caff 18:12: Q4HPRN, [place] (ESGIC) 27 Starting Medical 50-325-40 Wed Branch mg tablet 1 11/20/20 at tablet 1312, Until Discontinu ed, Routine, zofran ketorolac Yes [id number] 10mg Take 1 Un carolann 10 mg 5-26 tablet by ity of tablet 00:00: mouth [place] 00 every 6 Medical (six) Branch hours as needed for Pain (scale 4-6). cyclobenzap Yes [id number] 10mg Take 1 Univers rine 10 mg 5-26 tablet by ity of tablet 00:00: mouth 3 [place] 00 (three) Medical times Branch daily. ketorolac Yes [id number] 10mg Take 1 Un carolann 10 mg 5-26 tablet by ity of tablet 00:00: mouth [place] 00 every 6 Medical (six) Branch hours as needed for Pain (scale 4-6). cyclobenzap Yes [id number] 10mg Take 1 Univers rine 10 mg 5-26 tablet by ity of tablet 00:00: mouth 3 [place] 00 (three) Medical times Branch daily. ketorolac 2021- No [id number] 10mg Take 1 U nivers 10 mg 5-26 - tablet by ity of tablet 00:00: 00:00 mouth [place] 00 :00 every 6 Medical (six) Branch hours as needed for Pain (scale 4-6). cyclobenzap 2021- No [id number] 10mg Take 1 Univers rine 10 mg 5-26 - tablet by ity of tablet 00:00: 00:00 mouth 3 [place] 00 :00 (three) Medical times Branch daily. ketorolac 2020- No 30mg 30 mg, Unive rs (TORADOL) 09-27 04-02 Intramuscu ity of injection 03:45: 02:57 lar, [...] 09/26/20 Branch at 2245, RODRICK ondansetron Yes [id number] 4mg Take 1 Univers (ZOFRAN 4-01 tablet by ity of ODT) 4 mg 00:00: mouth [place] disintegrat 00 every 8 Medic al ing tablet (eight) Branch hours as needed for Nausea and Vomiting (N/V). ondansetron Yes [id number] 4mg Take 1 Univers (ZOFRAN 4-01 tablet by ity of ODT) 4 mg 00:00: mouth [place] disintegrat 00 every 8 Medic al ing tablet (eight) Branch hours as needed for Nausea and Vomiting (N/V). ondansetron Yes [id number] 4mg Take 1 Univers (ZOFRAN 4-01 tablet by ity of ODT) 4 mg 00:00: mouth [place] disintegrat 00 every 8 Medic al ing tablet (eight) Branch hours as needed for Nausea and Vomiting (N/V). ondansetron 2021- No [id number] 4mg Take 1 Univers (ZOFRAN 4-01 09-01 tablet by ity of ODT) 4 mg 00:00: 00:00 mouth [place] disintegrat 00 :00 every 8 Medic al ing tablet (eight) Branch hours as needed for Nausea and Vomiting (N/V). proMETHazin Yes [id number] 25mg Take 1 Univers e 25 mg 2-09 tablet by ity of tablet 00:00: mouth [place] 00 every 6 Medical (six) Branch hours as needed for Nausea and Vomiting (N/V). proMETHazin 2020- Yes [id number] 25mg Take 1 Univers e 25 mg 2-09 tablet by ity of tablet 00:00: mouth [place] 00 every 6 Medical (six) Branch hours as needed for Nausea and Vomiting (N/V). proMETHazin Yes [id number] 25mg Take 1 Univers e 25 mg 2- tablet by ity of tablet 00:00: mouth [place] 00 every 6 Medical (six) Branch hours as needed for Nausea and Vomiting (N/V). proMETHazin 2021- No [id number] 25mg Take 1 Univers e 25 mg 2-02-26 tablet by ity of tablet 00:00: 00:00 [...] IV ity of (REGLAN) 13:30: 12:29 Push, [place] injection 00 :00 ONCE, 1 [...] Hospita 500-60-15 17 l mg tablet acetaminoph 2018-1 Yes 2{tbl} Take 2 Me thodi en-caff-pyr [...] Name Td 2011-06-28 Completed University of 00:00:00 [facility] Td 2011-06-28 Completed University of :00: [facility] Td 2011-06-28 Completed University of :00: [facility] Td 2011-06-28 Completed University of 00:00:00 [facility] Td 2011-06-28 Completed University of :00: [facility] Td 2011-06-28 Completed University of :00:00 [facility] Vital Signs Vital Name Observation Time Observation Value Comments Source Systolic blood 2022-05-29 04:19:00 123 mm[Hg] Univer sity of pressure [facility] Diastolic blood 2022-05-29 04:19:00 87 mm[Hg] Unive rsity of pressure [place] [facility] Heart rate 2022-05-29 04:19:00 93 /min Universi ty of [place] [facility] Respiratory rate 2022-05-29 04:19:00 18 /min Univ ersity of [place] [facility] Oxygen saturation in 2022-05-29 04:19:00 97 /min University of Arterial blood by [place] Medi scott Pulse oximetry Branch Body temperature 2022-05-28 [...] 99 /min University of Arterial blood by [place] [employer] scott Pulse oximetry Branch Body height 2022-02-27 [...] 99 /min University of Arterial blood by [facility] Pulse oximetry Branch Systolic blood 2020-12-31 06:49:00 [...] 99 /min University of Arterial blood by [facility] Pulse oximetry Branch Systolic blood 2020-11-20 19:58:00 [...] 100 /min University of Arterial blood by [facility] Pulse oximetry Branch Body weight 2020-11-20 16:43:00 [...] 100 /min University of Arterial blood by [place] [employer] Pulse oximetry Branch Body weight 2020-11-20 16:43:00 92.534 kg Universi ty of [place] [facility] BMI 2020-11-20 16:43:00 39.84 kg/m2 Universi ty of [place] [facility] Body height 2020-09-26 23:49:00 152.4 cm Universi ty of [place] [facility] Body weight 2020-09-26 23:49:00 90.719 kg Universi ty of [place] [facility] BMI 2020-09-26 23:49:00 39.06 kg/m2 [...] 97 /min University of Arterial blood by [place] [employer] Pulse oximetry Branch Body height 2020-09-26 [...] 97 /min University of Arterial blood by [place] Pulse oximetry Branch Systolic blood 2020-07-17 14:00:00 112 mm[Hg] Univer sity of pressure [place] [facility] Diastolic blood 2020-07-17 14:00:00 65 mm[Hg] Unive rsity of pressure [place] [facility] Heart rate 2020-07-17 14:00:00 86 /min Universi ty of [place] [facility] Respiratory rate 2020-07-17 14:00:00 20 /min Univ ersity of [place] [facility] Oxygen saturation in 2020-07-17 14:00:00 100 /min University of Arterial blood by [place] Pulse oximetry Branch Body temperature 2020-07-17 11:50:00 37.22 [place] Univ ersity of [place] [facility] Body weight 2020-07-17 11:50:00 86.183 kg Universi ty of [place] [facility] BMI 2020-07-17 11:50:00 37.11 kg/m2 Universi ty of [place] [facility] Systolic blood 2020-07-17 14:00:00 112 mm[Hg] Univer sity of pressure [place] [facility] Diastolic blood 2020-07-17 14:00:00 65 mm[Hg] Unive rsity of pressure [place] [facility] Heart rate 2020-07-17 14:00:00 86 /min Universi ty of [place] [facility] Respiratory rate 2020-07-17 14:00:00 20 /min Univ ersity of [place] [facility] Oxygen saturation in 2020-07-17 14:00:00 100 /min University of Arterial blood by [facility] Pulse oximetry Branch Body temperature 2020-07-17 11:50:00 37.22 [place] [facility] Body weight 2020-07-17 11:50:00 86.183 kg General acute hospital BMI 2020-07-17 11:50:00 37.11 kg/m2 General acute hospital Systolic blood 2022-07-22 19:04:00 122 mm[Hg] Method ist Hospital pressure Diastolic blood 2022-07-22 19:04:00 72 [facility]Hg[facility] Heart rate 2022-07-22 19:04:00 72 /min [facility] Respiratory rate 2022-07-22 19:04:00 18 /min [facility] Oxygen saturation in 2022-07-22 19:04:00 100 /min [facility] Arterial blood by Pulse oximetry Body temperature 2022-07-22 17:04:00 36.72 [place] [facility] Body height 2022-07-22 17:04:00 157.5 cm [facility] Body weight 2022-07-22 17:04:00 85.276 kg [facility] BMI 2022-07-22 17:04:00 34.39 kg/m2 [facility] Systolic blood 2022-03-26 13:44:00 139 mm[Hg] Method [facility] Hospital pressure Diastolic blood 2022-03-26 13:44:00 83 mm[Hg] [facility] Heart rate 2022-03-26 13:44:00 101 /min [facility] Respiratory rate 2022-03-26 13:44:00 18 /min [facility] Oxygen saturation in 2022-03-26 13:44:00 100 /min [facility] Arterial blood by Pulse oximetry Body temperature 2022-03-26 12:32:00 36.72 [place] [facility] Body height 2022-03-26 12:32:00 157.5 cm [facility] Body weight 2022-03-26 12:32:00 85.276 kg [facility] BMI 2022-03-26 12:32:00 34.39 kg/m2 [facility] Procedures Procedure Date / Time Performing Clinician Source Performed URINE CULTURE 2022-07-22 19:12:00 Zaheer, Nash DFormerly [facility] COMPREHENSIVE METABOLIC 2022-07-22 17:33:00 Zaheer [facility] PANEL ESTIMATED GFR 2022-07-22 17:33:00 [facility] Nash DFormerly [facility] CT RENAL STONE PROTOCOL 2022-07-22 17:13:55 Zaheer Nash [facility] CBC WITH PLATELET AND 2022-07-22 16:33:00 [facility]FFER[facility] COMPREHENSIVE METABOLIC 2022-07-22 16:33:00 Zaheer [facility] PANEL ESTIMATED GFR 2022-07-22 16:33:00 [facility] URINALYSIS SCREEN AND 2022-07-22 16:22:00 [facility] MICROSCOPY, WITH REFLEX TO CULTURE US PELVIS COMPLETE WITH 2022-05-29 02:07:00 Lorena Simpson Un [facility] TRANSVAGINAL [facility] CT ABDOMEN PELVIS W 2022-05-29 00:28:13 Lorena Simpson [facility] CONTRAST [facility] COMP. METABOLIC PANEL 2022-05-29 00:07:00 Lorena Simpson [facility] ([id number]) [facility] CBC WITH DIFF 2022-05-29 00:07:[address] [facility] URINALYSIS 2022-05-28 23:56:[address] [facility] POCT TEST 2022-05-28 23:53:00 Lorena Simpson [facility] CONSENT/REFUSAL FOR 2022-05-28 23:40:29 Doctor Unassigned, No Un [facility] DIAGNOSIS AND TREATMENT Name Medical Branch URINALYSIS 2022-03-26 13:06:00 Ania Lopez [facility] HCG QUALITATIVE, URINE 2022-03-26 13:06:00 Ania Lopez [facility] SCREEN URINALYSIS 2022-03-26 13:06:00 [facility] [place] [facility] HCG QUALITATIVE, URINE 2022-03-26 13:06:00 [facility] SCREEN CBC WITH PLATELET AND 2022-03-26 12:46:00 [facility] DIFFERENTIAL COMPREHENSIVE METABOLIC 2022-03-26 12:46:00 [facility] PANEL ESTIMATED GFR 2022-03-26 12:46:00 [facility] [place] [facility] CBC WITH PLATELET AND 2022-03-26 12:46:00 [facility] DIFFERENTIAL POCT TEST 2022-02-27 04:56:00 Afsaneh aCr [facility] LIPASE 2022-02-27 04:04:00 Afsaneh Car [facility] TROPONIN I 2022-02-27 04:04:00 Afsaneh Car [facility] THYROID STIMULATING 2022-02-27 04:04:[address] [facility] HORMONE [facility] COMP. METABOLIC PANEL 2022-02-27 04:04:00 Afsaneh Car [facility] ([id number]) [facility] CBC WITH DIFF 2022-02-27 04:04:00 Afsaneh Car [facility] URINALYSIS 2022-02-27 03:56:00 Afsaneh Car [facility] URINE DRUG (IMMUNOASSAY) 2022-02-27 03:56:00 [facility] SCREEN W/O REFLEX NOTICE OF PRIVACY 2022-02-27 03:05:57 Doctor Unassigned, No Univ [facility] PRACTICES Name [facility] CONSENT/REFUSAL FOR 2022-02-27 03:04:00 [facility] Name [facility] METABOLIC 2022-02-18 05:17:00 Carlos Hernandez [facility] PANEL ESTIMATED GFR 2022-02-18 05:17:00 Carlos Hernandez [facility] COMPREHENSIVE METABOLIC 2022-02-18 04:38:00 [facility] PANEL ESTIMATED GFR 2022-02-18 04:38:[address] ABDOMEN PELVIS WO 2022-02-18 04:17:35 Carlos Hernandez [facility] CONTRAST URINE CULTURE 2022-02-18 04:00:00 Carlos Hernandez spital CBC WITH PLATELET AND 2022-02-18 04:00:00 Carlos Hernandez [facility] DIFFERENTIAL COMPREHENSIVE METABOLIC 2022-02-18 04:00:00 Carlos Hernandez [facility] PANEL ESTIMATED GFR 2022-02-18 04:00:00 Carlos Hernandez spital HCG QUALITATIVE, URINE 2022-02-18 02:50:00 Carlos Hernandez [facility] SCREEN URINALYSIS 2022-02-18 02:50:00 Carlos Hernandez spital RAPID STREP SCREEN FOR 2020-12-31 07:13:00 Akiko Dunaway [facility] GROUP A [facility] NOTICE OF PRIVACY 2020-12-31 06:34:54 Doctor Unassigned, No [facility] PRACTICES Name [facility] CONSENT/REFUSAL FOR 2020-12-31 06:34:35 Doctor Unassigned, No [facility] Name [facility] CT HEAD WO CONTRAST 2020-11-20 18:18:22 [facility] POCT TEST 2020-11-20 17:50:00 John Rivera [facility] BASIC METABOLIC PANEL 2020-11-20 17:24:00 John Rivera [facility] (NA, K, CL, CO2, Medical Branch GLUCOSE, BUN, CREATININE, CA) CBC WITH DIFF 2020-11-20 17:24:00 John Rivera [facility] CONSENT/REFUSAL FOR 2020-11-20 16:36:59 [facility] POCT TEST 2020-09-27 02:56:00 Tricia Herbert [facility] ASSIGNMENT OF BENEFITS 2020-09-27 01:35:31 Doctor Unassigned, No [facility] Name [facility] CONSENT/REFUSAL FOR 2020-09-26 23:26:24 Doctor Unassigned, No [facility] [place] [facility] Name [facility] URINALYSIS 2020-07-17 14:08:00 Wild Cowart [facility] POCT TEST 2020-07-17 14:08:00 Wild Cowart [facility] CBC WITH DIFF 2020-07-17 12:25:00 Wild Cowart [facility] NOTICE OF PRIVACY 2020-07-17 11:48:39 Doctor Unassigned, No Univ [facility] PRACTICES Name [facility] CONSENT/REFUSAL FOR 2020-07-17 11:44:41 Doctor Unassigned, No [facility] Plan of Care Planned Activity Planned Date Details Comments Source Future Scheduled 2022-07-30 COVID-[address] [facility] Test 22:48:12 (#1) [code = COVID-19 VACCINE (#1)] Future Scheduled 2022-07-30 [facility]12 screening (procedure) [code = 916638425] Future Scheduled 2022-07-30 [facility] 22:48:12 malignant neoplasm of cervix (procedure) [code = 847862083] Future Scheduled 2022-07-30 [facility] 22:48:12 [code = INFLUENZA VACCINE] Future Scheduled 2022-07-23 [facility] [facility] Test 22:23:51 (#1) [code = COVID-19 VACCINE (#1)] Future Scheduled 2022-07-23 [facility] 22:23:51 screening (procedure) [code = 927076145] Future Scheduled 2022-07-23 [facility] 22:23:51 malignant neoplasm of cervix (procedure) [code = 214543464] Future Scheduled 2022-07-23 [facility] 22:23:51 [code = INFLUENZA VACCINE] Future Scheduled 2022-07-23 [facility] [facility] Test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 5246514620) ASCORBIC ACID M AY CAUSE FALSE NEG ATIVE RESULT KETONES (test code = Negative Negative 7495804065) PROTEIN (test code = Negative Negative 2887-8) UROBILIN (test code = Normal Normal 0762085411) BILIRUBIN (test code = Negative Negative 0423216780) NITRITE (test code = Negative Negative 2662696044) LEUK SILVINO (test code = Negative Negative 3755010498) RBC/HPF (test code = See_Comment [Autom ated message] 2303029018) The system [employer] generated this result transmitted ref erence range: 0 - 3 HP F. The reference range was not used to int erpret this result as normal/abnormal . WBC/HPF (test code = <1 See_Comment [Autom ated message] 3161761420) The system [employer] generated this result transmitted ref erence range: 0 - 5 HP F. The reference range was not used to int erpret this result as normal/abnormal . BACTERIA (test code = Few Negative A 7404866895) MUCOUS (test code = Slight Negative LPF A 7322166235) SQ EPITH (test code = HPF 5622025126) Lab Interpretation (test Abnormal code = 79448-0) [facility] [id number] 14:08:00 Test Item Value Reference Range Interpretation Comments POCT PREG (test code = 1605) negative On board controls acceptable with present C Line (test code = 3574) POCT PREG LOT # (test code = 3575) [id number] POCT PREG TEST DATE (test 2022-02-25 code = 3576) Lab Interpretation (test code = Normal 74168-6) [facility] WITH [id number] 12:41:00 Test Item Value Reference Range Interpretation Comments WBC (test code = See_Comment [Automated 2590-2) message] The sy stem which generated this result transmitted reference range : 4.30 - 11.10 10*3/?L. The reference range was not used to interpret this result as normal/abnormal . RBC (test code = See_Comment [Automated 719-8) message] The sy stem which generated this [...] RDW-SD (test code = 40.8 fL 39-49.9 22172-3) RDW-CV (test code = 13.0 % 12-15.5 788-0) PLT (test code = See_Comment H [Automated 777-3) message] The sy stem which generated this result transmitted reference range : 166 - 358 10*3/ ?L. The reference r shira was not used to interpret this result as normal/abnormal . MPV (test code = 9.5 fL 9.5-12.9 64845-6) NRBC/100 WBC (test See_Comment [Automat ed code = 6120566236) message] The system which generated this result transmitted reference range : 0.0 - 10.0 /100 WBCs. The refer ence range was not u sed to interpret th is result as normal/abnormal . NRBC x10^3 (test code <0.01 See_Comment [Auto mated = 9796376660) message] The s ystem which generated this result transmitted reference range : 10*3/?L. The reference range was not used to interpret this result as normal/abnormal . GRAN MAT (NEUT) % 49.7 % (test code = 770-8) IMM GRAN % (test code 0.40 % = 1454630973) LYMPH % (test code = 37.6 % 736-9) MONO % (test code = 6.3 % 5905-5) EOS % (test code = 5.4 % 713-8) BASO % (test code = 0.6 % 706-2) GRAN MAT x10^3(ANC) 4.65 10*3/uL 1.88-7.09 (test code = 4470056291) IMM GRAN x10^3 (test 0.04 10*3/uL 0-0.06 code = 5049879065) LYMPH x10^3 (test code 3.52 10*3/uL 1.32-3.29 H = 731-0) MONO x10^3 (test code 0.59 10*3/uL 0.33-0.92 = 742-7) EOS x10^3 (test code = 0.51 10*3/uL 0.03-0.39 H 711-2) BASO x10^3 (test code 0.06 10*3/uL 0.01-0.07 = 704-7) Lab Interpretation Abnormal (test code = 82960-4) [facility] W/AUTO [id number] 07:27:00 Test Item Value Reference Range Interpretation [...] NORMAL code = PLTMR) AG HEPATITIS B [id number] 04:15:00 Test Item Value Reference Range Interpretation Comments AG HEPATITIS B SURFACE (test code NONREACTIVE NONREACTIVE = HBSAG) AB HEPATITIS C [id number] 04:15:00 Test Item Value Reference Range Interpretation Comments AB HEPATITIS C (test code = NONREACTIVE NONREACTIVE HCVAB) SIGNAL TO CUTOFF (test code = 0.13 <0.80 N CUTOFF) RUBELLA [id number] 04:15:00 Test Item Value Reference Range Interpretation Comments RUBELLA SCREEN 70.2 IUnit/ml Results >10. 0IUnits/ml (test code = are considered positive RUBSC) inaccordance wi th the CLSI guidelines and based on the [employer] International S tandard for Anti-Rubell a serum as anindicator of immune status and a br eakpoint to detect mostseropositiv e persons. AB [id number] 04:15:00 Test Item Value Reference Range Interpretation Comments AB TREPONEMA (test code = TREPAB) NONREACTIVE NONREACTIVE AG HEPATITIS B [id number] 04:00:00 Test Item Value Reference Range Interpretation Comments AG HEPATITIS B SURFACE (test code NONREACTIVE NONREACTIVE = HBSAG) AB HEPATITIS C [id number] 04:00:00 Test Item Value Reference Range Interpretation Comments AB HEPATITIS C (test code = HCVAB) NONREACTIVE SIGNAL TO CUTOFF (test code = CUTOFF) <0.80 RUBELLA [id number] 04:00:00 Test Item Value Reference Range Interpretation Comments RUBELLA SCREEN 70.2 IUnit/ml Results >10. 0IUnits/ml (test code = are considered positive RUBSC) inaccordance wi th the CLSI guidelines and based on the O International S tandard for Anti-Rubell a serum as anindicator of immune status and a br eakpoint to detect mostseropositiv e persons. AB [id number] 04:00:00 Test Item Value Reference Range Interpretation Comments AB TREPONEMA (test code = TREPAB) NONREACTIVE NONREACTIVE CBC W/AUTO [id number] 00:36:00 Test Item Value Reference Range Interpretation [...]
[2022-08-28] MEDS ORDERED: NA CHLORIDE 0.9% 1,000 ML ONE (13:20)
[2022-08-28] MEDS ORDERED: ONDANSETRON 4 MG/2 ML VIAL ONE (13:20)
[2022-08-28] MEDS ORDERED: FAMOTIDINE 20 MG/2 ML VIAL IV ONE (13:20)
[2022-08-28 13:53] LABS: Absolute Lymphocytes (CBC) 3.1 K/uL (0.7-4.9); Hematocrit 40.2 % (36.0-45.0); Lymphocytes % 42.5 % (15.3-44.8); MCV 88.3 fL (80-100); MPV 7.3 fL (7.6-11.3); RBC Red Blood Cell Count 4.55 M/uL (3.86-4.86)
[2022-08-28 14:07] LABS: Urine Blood Trace-lysed (Negative); Urine Glucose Negative (Negative); Urine Protein Negative (Negative); Urine Specific Gravity 1.015 (1.005-1.030); Urine pH 7.5 (5.0-7.0)
[2022-08-28] MEDS ORDERED: SUMATRIPTAN SUCC 6MG/0.5ML VIAL SQ ONE (14:09)
[2022-08-28 14:11] LABS: Albumin 3.6 g/dL (3.4-5.0); Bilirubin Total 0.3 mg/dL (0.2-1.0); Potassium 3.8 mmol/L (3.5-5.1); Protein, Total 7.4 g/dL (6.4-8.2)
[2022-08-28 14:17] LABS: Urine Specific Gravity/Preg 1.015 (1.005-1.030)
--- NOTE | 2022-08-28 14:56 | ER ---
Nurse's Notes [facility] Name: Carla Duncan Age: 26 yrs Sex: Female : 1995 Arrival Date: 08/28/2022 Time: 12:34 Bed 11 Private MD: Pancho Ortega Diagnosis: Muscle weakness (generalized);Unspecified hemorrhoids;Headache Presentation: 08/28 12:39 Chief complaint: Patient states: Rectal bleeding since this morning - saw blood on ld1 toilet paper. Pt reports pressure/pain to rectum 3 days. Coronavirus screen: At this time, the client does not indicate any symptoms associated with coronavirus-19. Ebola Screen: No symptoms or risks identified at this time. Initial Sepsis Screen: Does the patient meet any 2 criteria? No. Patient's initial sepsis screen is negative. Does the patient have a suspected source of infection? No. Patient's initial sepsis screen is negative. Risk Assessment: Do you want to hurt yourself or someone else? Patient reports no desire to harm self or others. Onset of symptoms was August 28, 2022 at 12:41. 12:39 Method Of Arrival: Ambulatory ld1 12:39 Acuity: VENKATESH 3 ld1 Triage Assessment: 12:41 General: Appears in no apparent distress. comfortable, Behavior is calm, cooperative, ld1 appropriate for age. Pain: Complains of pain in gluteal cleft Pain does not radiate. Pain currently is 10 out of 10 on a pain scale. Quality of pain is described as throbbing. EENT: No signs and/or symptoms were reported regarding the EENT system. Neuro: Level of Consciousness is awake, alert, obeys commands, Oriented to person, place, time, situation. Cardiovascular: Capillary refill < 3 seconds Patient's skin is warm and dry. Respiratory: Airway is patent Respiratory effort is even, unlabored. GI: Abdomen is round non-distended. : No signs and/or symptoms were reported regarding the genitourinary system. :. Derm: No signs and/or symptoms reported regarding the dermatologic system. Musculoskeletal: No signs and/or symptoms reported regarding the musculoskeletal system. 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 - Social history:: Smoking status: Patient denies any tobacco usage or history of. Patient/guardian denies using alcohol. Screenin:32 [facility] ED Fall Risk Assessment (Adult) History of falling in the last 3 months, mb9 including since admission No falls in past 3 months (0 pts) Confusion or Disorientation No (0 pts) Intoxicated or Sedated No (0 pts) Impaired Gait No (0 pts) Mobility Assist Device Used No (0 pt) Altered Elimination No (0 pt) Score/Fall Risk Level 3 or more points = High Risk Oriented to surroundings, Maintained a safe environment, Educated pt \T\ family on fall prevention, incl call for assistance when getting out of bed. Abuse screen: Denies threats or abuse. Nutritional screening: No deficits noted. Tuberculosis screening: No symptoms or risk factors identified. Assessment: 13:05 Reassessment: pt brought back to ER room. mb9 13:35 General:. Pain: Complains of pain in buttocks and gluteal cleft Pain does not radiate. mb9 Pain currently is 10 out of 10 on a pain scale. Quality of pain is described as throbbing, Pain began suddenly, Aggravated by sitting. Neuro: Level of Consciousness is awake, alert, obeys commands, Oriented to person, place, time, situation, Appropriate for age. Cardiovascular: Heart tones S1 S2 present Rhythm is sinus tachycardia. Respiratory: Airway is patent Respiratory effort is even, unlabored, Respiratory pattern is regular, symmetrical, Breath sounds are clear bilaterally. GI: Pt is actively vomiting clear fluid. GI: Bowel sounds present X 4 quads. Abd is soft and non tender X 4 quads. Reports rectal bleeding, since this morning that is bright red. Derm: Skin is pink, warm \T\ dry. Musculoskeletal: Range of motion: intact in all extremities. 14:47 Reassessment: No changes from previously documented assessment. Patient and/or family mb9 updated on plan of care and expected duration. Pain level reassessed. Patient is alert, oriented x 3, equal unlabored respirations, skin warm/dry/pink. Patient states feeling better. Patient states symptoms have improved. Vital Signs: 12:39 BP 138 / 88; Pulse 106; Resp 18; Temp 98.1(O); Pulse Ox 99% on R/A; Weight 77.11 kg; ld1 Height 5 ft. 0 in. (152.40 cm); Pain 10/10; 14:10 BP 126 / 98; Pulse 89; Resp 18; Pulse Ox 100% ; mb9 14:47 BP 138 / 94; Pulse 86; Resp 16; Pulse Ox 100% ; mb9 12:39 Body Mass Index 33.20 (77.11 kg, 152.40 cm) ld1 ED Course: 12:34 Patient arrived in ED. mr 12:35 Pancho Ortega MD is Private Physician. mr 12:41 Triage completed. ld1 12:41 Arm band placed on right wrist. ld1 12:45 Maurizio Jay DO is Attending Physician. ms3 13:14 Kathryn Nails, JUDI is Primary Nurse. mb9 13:20 Inserted saline lock: 20 gauge in left antecubital area, using aseptic technique. mb9 13:32 Bed in low position. Call light in reach. Side rails up X 1. Client placed on mb9 continuous cardiac and pulse oximetry monitoring. NIBP monitoring applied. hall monitor on. 13:32 CBC with Diff Sent. mb9 13:32 CMP Sent. mb9 14:07 Initial lab(s) drawn. tm3 14:07 Urine collected: clean catch specimen, clear. tm3 15:04 No provider procedures requiring assistance completed. IV discontinued, intact, mb9 bleeding controlled, No redness/swelling at site. Pressure dressing applied. Administered Medications: 13:25 Drug: Zofran (Ondansetron) 4 mg Route: IVP; Site: left antecubital; mb9 14:46 Follow up: Response: No adverse reaction mb9 13:31 Drug: NS 0.9% 1000 ml Route: IV; Rate: 1 bolus; Site: left antecubital; mb9 14:45 Follow up: Response: No adverse reaction; IV Status: Completed infusion mb9 13:32 Drug: Pepcid (famotidine) 20 mg Route: IVP; Site: left antecubital; mb9 14:46 Follow up: Response: No adverse reaction mb9 14:09 Drug: SUMAtriptan 4 mg Route: Sub-Q; Site: right upper abdomen; mb9 14:46 Follow up: Response: No adverse reaction mb9 Medication: 13:32 VIS not applicable for this client. mb9 Outcome: 14:56 Discharge ordered by . ms3 15:05 Discharged to home ambulatory. mb9 15:05 Condition: stable 15:05 Discharge instructions given to patient, Instructed on discharge instructions, follow up and referral plans. Demonstrated understanding of instructions, follow-up care, medications, Prescriptions given X 1. 15:05 Patient left the ED. mb9 Signatures: Wilbert Villegas3 Kathryn Gandhi Marcus, DO DO ms3 Masha Wong RN RN ld1 Kathryn Nails RN RN mb9
--- NOTE | 2022-08-28 14:57 | EDPHYS ---
Physician Documentation [facility] Name: Carla Duncan Age: 26 yrs Sex: Female : 1995 Arrival Date: 08/28/2022 Time: 12:34 Bed 11 Private MD: Pancho Ortega ED Physician Maurizio Jay HPI: 08/28 13:03 This 26 yrs old Female presents to ER via Ambulatory with complaints of Rectal ms3 Bleeding, Dehydration. 13:03 26-year-old female with past medical history of ADHD, anxiety, asthma, bipolar ms3 disorder, hypertension presents for feeling dehydrated. Patient states she was working in the hot sun for the last 2 days. Patient endorses drinking 2 beers yesterday. Patient states she has a headache, general weakness, nausea, and has vomited 2 times today while at work. Patient states her discomfort is a 10/10.. 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 - Social history:: Smoking status: Patient denies any tobacco usage or history of. Patient/guardian denies using alcohol. ROS: 13:03 Constitutional: Negative for fever, and chills. Neck: Negative for injury, pain, and ms3 swelling, Cardiovascular: Negative for chest pain, and palpitations. Respiratory: Negative for shortness of breath, cough, wheezing, and pleuritic chest pain. 13:03 Abdomen/GI: Positive for nausea, vomiting. 13:03 All other systems are negative. Exam: 13:03 Constitutional: This is a well developed, well nourished patient who is awake, alert, ms3 and in no acute distress. Head/Face: Normocephalic, atraumatic. Chest/axilla: Normal chest wall appearance and motion. Nontender with no deformity. Cardiovascular: Regular rate and rhythm with a normal S1 and S2. No gallops, murmurs, or rubs. Normal PMI, no JVD. No pulse deficits. Respiratory: Lungs have equal breath sounds bilaterally, clear to auscultation and percussion. No rales, rhonchi or wheezes noted. No increased work of breathing, no retractions or nasal flaring. Abdomen/GI: Soft, non-tender, with normal bowel sounds. No distension or tympany. No guarding or rebound. No evidence of tenderness throughout. Skin: Warm, dry with normal turgor. Normal color with no rashes, no lesions, and no evidence of cellulitis. MS/ Extremity: Pulses equal, no cyanosis. Neurovascular intact. Full, normal range of motion. Neuro: Awake and alert, GCS 15, oriented to person, place, time, and situation. Cranial nerves II-XII grossly intact. Motor strength 5/5 in all extremities. Sensory grossly intact. Cerebellar exam normal. Normal gait. Vital Signs: 12:39 BP 138 / 88; Pulse 106; Resp 18; Temp 98.1(O); Pulse Ox 99% on R/A; Weight 77.11 kg; ld1 Height 5 ft. 0 in. (152.40 cm); Pain 10/10; 14:10 BP 126 / 98; Pulse 89; Resp 18; Pulse Ox 100% ; mb9 14:47 BP 138 / 94; Pulse 86; Resp 16; Pulse Ox 100% ; mb9 12:39 Body Mass Index 33.20 (77.11 kg, 152.40 cm) ld1 MDM: 12:48 Patient medically screened. ms3 13:03 Differential diagnosis: hemorrhoids, Dehydration vs anemia. ms3 08/28 12:49 Order name: CBC with Diff ms3 08/28 12:49 Order name: CMP ms3 08/28 12:49 Order name: IV Saline Lock; Complete Time: 13:31 ms3 08/28 12:49 Order name: Labs collected and sent; Complete Time: 13:31 ms3 08/28 12:49 Order name: Urine Dipstick-Ancillary (obtain specimen); Complete Time: 14:04 ms3 08/28 12:49 Order name: Urine Test (obtain specimen); Complete Time: 14:04 ms3 08/28 14:07 Order name: Urine --Ancillary (enter results) eb 08/28 14:07 Order name: Urine Dipstick-Ancillary; Complete Time: 14:48 EDMS 08/28 14:08 Order name: CBC with Automated Diff; Complete Time: 14:48 EDMS 08/28 14:11 Order name: Comprehensive Metabolic Panel; Complete Time: 14:48 EDMS 08/28 14:17 Order name: Urine --Ancillary; Complete Time: 14:48 EDMS Administered Medications: 13:25 Drug: Zofran (Ondansetron) 4 mg Route: IVP; Site: left antecubital; mb9 14:46 Follow up: Response: No adverse reaction mb9 13:31 Drug: NS 0.9% 1000 ml Route: IV; Rate: 1 bolus; Site: left antecubital; mb9 14:45 Follow up: Response: No adverse reaction; IV Status: Completed infusion mb9 13:32 Drug: Pepcid (famotidine) 20 mg Route: IVP; Site: left antecubital; mb9 14:46 Follow up: Response: No adverse reaction mb9 14:09 Drug: SUMAtriptan 4 mg Route: Sub-Q; Site: right upper abdomen; mb9 14:46 Follow up: Response: No adverse reaction mb9 Disposition Summary: 08/28/22 14:56 Discharge Ordered Location: Home ms3 Condition: Stable ms3 Diagnosis - Muscle weakness (generalized) ms3 - Unspecified hemorrhoids ms3 - Headache ms3 Discharge Instructions: - Discharge Summary Sheet ms3 - General Headache Without Cause ms3 - Weakness ms3 - Hemorrhoids, Ycao-jx-Ffrv ms3 Forms: - Medication Reconciliation Form ms3 - Thank You Letter ms3 - Antibiotic Education ms3 - Prescription Opioid Use ms3 - Work release form mb9 Prescriptions: - Anusol-HC 25 mg Rectal Suppository - insert 1 suppository by RECTAL route every 12 hours As needed; 20 suppository; ms3 Refills: 0, Product Selection Permitted Signatures: Dispatcher [employer] EDMS Maurizio Jay DO DO ms3 Masha Wong RN RN ld1 Kathryn Nails RN RN mb9
[2022-08-28 15:29] VITALS: TEMP 98.1
[2022-08-28 15:30] VITALS: O2SAT 100
[2022-08-28 15:31] VITALS: BP 138/94
== END 2022-08-28 15:05 | disposition home or self-care (01) ==
LOC: ER 12:32
DX: M62.81 Muscle weakness (generalized) (principal); K64.9 Unspecified hemorrhoids; R51.9 Headache, unspecified; F31.9 Bipolar disorder, unspecified; I10 Essential (primary) hypertension; Z88.1 Allergy status to other antibiotic agents; Z88.5 Allergy status to narcotic agent
CPT/HCPCS: 96361; 85025; 36415; 81025; 81003; 80053; 96375; 96372; 96374; 99284; J3030; J7030; J2405

== ENCOUNTER 2022-09-09 11:34 | Emergency (ER) | payer OTHER ==
--- OUTSIDE RECORDS SUMMARY | 2022-09-09 11:40 | XMS REPORT | Continuity of Care Document ---
:1995 Author Organization [facility] t Address [address] [place] [address] Care Team Providers Name Role Phone Asked, No Pcp Primary Care Physician Unavailable Nash Schwab MD Attending Clinician MENDY LIRIANO Attending Clinician Unavailable Calvin AREVALO, Lorena Real Attending Clinician [phone] Mendy Liriano MD Attending Clinician IZA DENSON [...] Date Expiration Date S shobha GOODETTER FROM [id number] 2020 [facility] 00:00:00 [facility] [id number] 2019 00:00:00 Problems Condition Condition Condition Status Onset Resolution Last Treating Co mments Source Name Details Category Date Date Treatment Clinician Date Obesity Obesity Disease Active Univers (BMI (BMI 1-16 ity of 30-39.9) 30-39.9) 00:00: [place] [address] Medical Branch Urinary Urinary Disease Active Univers [...] 00 take with Medic al s Benadryl [place] KETOROLA DRUG Active Other-Cmnt Univ ers C [...] 00 l of [place] codeine DA Active SC 2018- [facility] 1-19 [facility] [place] morphine DA Active U SWELLING 2018- [facility] 1-19 [facility] 00:[facility]: [facility] [place] codeine DA Active [place] nausea, 2018- [facility] headache -19 [facility] 00:00: [facility] 00 [facility] [place] tramadol DA Active SC 2018- [facility] 2-31 [facility] 00:00: [facility] 00 [facility] [place] tramadol DA Active SC CHEST PAIN 2018- [facility] 2-31 [facility] 00:00: [facility] 00 [facility] [place] ACETAMIN DRUG Active High SOB 2015-0 Univers OPHEN-CO 9-14 ity of DEINE 00:00: [...] Shortness Of Methodi ophen-Co ty to Breath 14 st deine adverse 00:00: Hospita reaction 00 l s to drug TRAMADOL DRUG Active Anaphylaxis Uni vers INGREDI 5-07 ity of 00:00: [place] 00 Medical Branch TUSSIN DRUG Active Rash 2013-0 Univers DM COUGH -07 ity of MEDICINE 00:00: [place] 00 Medical Branch Tussin Propensi Active Rash 0 Univers Dm Cough ty to 5-07 ity of Medicine adverse 00:00: [place] reaction Medical s Branch No Known DA Active U [facility] Allergie 3-14 Woman[facility] s 00:00: [facility]ospita 00 l of [place] Family History Family Member Diagnosis Comments Start Date Stop Date Source Natural mother Diabetes [facility] Natural mother Menstrual problems [facility] Social History Social Habit Start Date Stop Date Quantity Comments Source Exposure to 2022-05-18 2022-05-28 Not sure University SARS-CoV-2 00:00:00 17:41:00 [place] Medical (event) Branch Alcohol intake 2022-02-27 2022-02-27 Current University of 00:00:00 00:00:00 non-drinker of [facility] alcohol (finding) Branch Alcohol Comment 2016-04-28 2016-04-28 social, weekly Metho [facility] 00:00:00 00:00:00 Tobacco use and 2013-11-01 2013-11-01 Smokeless tobacco Un iversity of exposure 00:00:00 00:00:00 non-user [place] [facility] Sex Assigned At [birth year] [facility] y of 00:00:00 00:00:00 [facility] Smoking Status Start Date Stop Date Source Never smoked tobacco [facility] Medications Ordered Filled Start Stop Current [...] to 5 days. phenazopyri 2022-2022- Yes 200mg Q.[id number] Take 1 Methodi dine 07-[id number] (Pyridium) 00:00: 05:59 3D (200 mg Hos radha 200 MG 00 :00 total) by l tablet mouth 3 (three) times a day as needed for bladder spasms for up to 3 days. phenazopyri 2022- No 200mg Q.[id number] Take 1 Methodi dine 07-[id number] (Pyridium) 00:00: 05:59 3D (200 mg Hos radha 200 MG 00 :00 total) by l tablet mouth 3 (three) times a day as needed for bladder spasms for up to 3 days. phenazopyri No 200mg Q.[id number] Take 1 Methodi dine 07-[id number] (Pyridium) 00:00: 05:59 3D (200 mg Hos radha 200 MG 00 :00 total) by l tablet mouth 3 (three) times a day as needed for bladder spasms for up to 3 days. diphenhydrA 2021-06 No 25mg 25 mg, Uni vers MINE 07-30 Oral, ity of (BENADRYL) 04:30: 04:21 ONCE, 1 [place] as tablet 25 00 :00 dose, On Medica l mg [facility] 05/28/22 at 2230, RODRICK FENTanyl PF 2021-06 No 75ug 75 mcg, Un carolann (SUBLIMAZE 07-30 Slow IV ity o f (PF)) 04:30: 03:51 Push, [place] injection 00 :00 ONCE, 1 Medical 75 mcg dose, On [facility] 05/28/22 at 2230, Routine doxycycline 2021-06 No 100mg 100 mg, U nivers hyclate 07-30 Oral, ity of (Vibramycin 03:45: 03:51 [place] capsule [place] :00 dose, On Medica l 100 mg [facility] 05/28/22 at 2145, RODRICK
Re ason for Anti-Infec tive: Documented Infection< br>Documen jd Infection Site: Pelvic
Duration of Therapy: Other (see Comments) morpHINE (4 2021-06 No 4mg 4 mg, Slow Univers mg/mL) 2-02 12-02 IV Push, ity of injection 4 02:30: 02:47 [place]CE[place] 1 [place] mg 00 :[place] dose, On Medical [facility] Branch 05/28/22 at 2030, STAT ketorolac 2021-06- No 15mg 15 mg, Unive rs (TORADOL) 07-30 Slow IV ity of injection 01:45: 01:01 Push, [place] 15 mg 00 :00 ONCE, 1 Medical dose, On [facility] 05/28/22 at 1945, Routine iopamidol 2021-06- No [id number] 75mL 75 mL, Univers (ISOVUE 07-30 Intravenou ity o f 370-500 mL) 01:15: 01:15 s, ONCE, 1 [place] injection 00 :00 dose, On Medica l 75 mL [facility] 05/28/22 at 1915, Routine FENTanyl PF 2021-06 No 50ug 50 mcg, Un carolann (SUBLIMAZE 07-30 Slow IV ity o f (PF)) 01:00: 00:11 Push, [place] injection 00 :00 ONCE, 1 Medical 50 mcg dose, On Branch [facility] 05/28/22 at 1900, Routine ondansetron 2021-06 No 4mg 4 mg, Slow Univers (ZOFRAN 07-30 IV Push, ity of (PF)) 00:15: 00:11 ONCE, 1 [place] injection 4 00 :00 dose, On Medi scott mg [facility] 05/28/22 at 1815, RODRICK metroNIDAZO 2021-06 Yes [id number] 500mg Take 1 Univers LE 500 mg 07-29 tablet by ity o f tablet 00:00: mouth in [place] 00 the Medical morning Branch and 1 tablet in the evening. doxycycline 2021-06- No [id number] 100mg Take 1 Univers hyclate 100 07-29 [...] ity of tablet 12:44: tablet [facility] bupropion Yes bupropion Uni vers HBr 02-28 HBr ity of (APLENZIN 12:44: [place] ORAL) [facility] FLUoxetine Yes fluoxetine U nivers 20 mg 02-28 20 mg ity of capsule 12:44: capsule [facility] famotidine 2021- No 20mg 20 mg, [...] ity of tablet 23:48: tablet [facility] bupropion Yes bupropion Uni vers HBr 02-26 [facility] ity of (APLENZIN 23:48: [place] ORAL) [facility] FLUoxetine Yes fluoxetine U nivers 20 mg 02-26 20 mg ity of capsule 23:48: capsule [facility] ciprofloxac 2021- No 500mg Q.5D Take [...] 7 days. phenazopyri 2022-0 2022- No 200mg Q.[id number] Take 1 Methodi dine 02-[id number] (PYRIDIUM) 00:00: 04:59 3D (200 mg Hos radha 200 MG 00 :00 total) by l tablet mouth 3 (three) times a day for 3 days. phenazopyri 2022-0 2022- No 200mg Q.[id number] Take 1 Methodi dine 02-[id number] (PYRIDIUM) 00:00: 04:59 3D (200 mg Hos radha 200 MG 00 :00 total) by l tablet mouth 3 (three) times a day for 3 days. phenazopyri 2022-0 2022- No 200mg Q.[id number] Take 1 Methodi dine 02-[id number] (PYRIDIUM) 00:00: 04:59 3D (200 mg Hos radha 200 MG 00 :00 total) by l tablet mouth 3 (three) times a day for 3 days. phenazopyri 2022-0 2022- No 200mg Q.[id number] Take 1 Methodi dine 02-[id number] (PYRIDIUM) 00:00: 04:59 3D (200 mg Hos radha 200 MG 00 :00 total) by l tablet mouth 3 (three) times a day for 3 days. phenazopyri 2022-0 2022- No 200mg Q.[id number] Take 1 Methodi dine 02-[id number] (PYRIDIUM) 00:00: 04:59 3D (200 mg Hos radha 200 MG 00 :00 total) by l tablet mouth 3 (three) times a day for 3 days. phenazopyri 2021-0 2021- No 200mg Q.[id number] Take 1 Methodi dine 02-[id number] (PYRIDIUM) 00:00: 04:59 3D (200 mg Hos radha 200 MG 00 :00 total) by l tablet mouth 3 (three) times a day for 3 days. phenazopyri 2021-0 2021- No 200mg Q.[id number] Take 1 Methodi dine 02-[id number] (PYRIDIUM) 00:00: 04:59 3D (200 mg Hos radha 200 MG 00 :00 total) by l tablet mouth 3 (three) times a day for 3 days. phenazopyri 2021-0 2- No 200mg Q.[id number] Take 1 Methodi dine 02-[id number] (PYRIDIUM) 00:00: 04:59 3D (200 mg Hos radha 200 MG 00 :00 total) by l tablet mouth 3 (three) times a day for 3 days. phenazopyri 2-0 2022- No 200mg Q.[id number] Take 1 Methodi dine 02-[id number] (PYRIDIUM) 00:00: 04:59 3D (200 mg Hos radha 200 MG 00 :00 total) by l tablet mouth 3 (three) times a day for 3 days. phenazopyri 2022-0 2022- No 200mg Q.[id number] Take 1 Methodi dine 02-[id number] (PYRIDIUM) 00:00: 04:59 3D (200 mg Hos radha 200 MG 00 :00 total) by l tablet mouth 3 (three) times a day for 3 days. phenazopyri 2021- No 200mg Q.[id number] Take 1 Methodi dine 824 08-[id number] (PYRIDIUM) 00:00: 04:59 3D (200 [...] 1 [place] tablet 00 :00 dose, [facility] Medical 1,000 mg 12/31/20 at Branch 0300, RODRICK ibuprofen Yes [id number] 800mg Take 1 U nivers 800 mg 7- tablet by ity of tablet 00:00: mouth [place] 00 every 8 Medical (eight) Branch hours as needed for Pain (scale 4-6). cyclobenzap Yes [id number] 10mg Take 1 Univers rine 10 mg 7-06 tablet by ity of tablet 00:00: mouth 3 [place] 00 (three) Medical times Branch daily as needed for Muscle Spasms. ibuprofen 2021- No [id number] 800mg Take 1 Univers 800 mg 12-31 tablet by ity of tablet 00:00: 00:00 mouth [place] 00 :00 every 8 Medical (eight) Branch hours as needed for Pain (scale 4-6). cyclobenzap 2021- No [id number] 10mg Take 1 Univers rine 10 mg [...] IV Medical Infusion, Branch ONCE, 1 dose, [facility] 11/20/20 at 1530, STAT metoclopram No 10mg 10 mg, Uni vers dio HCl 11-20 Slow IV ity of (REGLAN) 20:15: 19:18 Push, [place] injection 00 :00 ONCE, 1 Medical 10 mg dose, [facility] Branch 11/20/20 at 1515, RODRICK ketorolac 2020- No 30mg 30 mg, Unive rs (TORADOL) 11-20 Slow IV ity of injection 20:15: 19:18 Push, [place] 30 mg 00 :00 ONCE, 1 Medical dose, [facility] Branch 11/20/20 at 1515, RODRICK
Fa culty member approving Restricted medication : JOHN RIVERA diphenhydrA 2020- No 25mg 25 mg, Uni vers MINE 11-20 Slow IV ity of (BENADRYL) 20:15: 20:15 Push, [place] injection 00 :00 ONCE, 1 Medical 25 mg dose, [facility] Branch 11/20/20 at 1515, STAT butalbital- Yes 1{tbl} 1 tablet, Univers acetaminoph 5-26 Oral, ity of en-caff 18:12: Q4HPRN, [place] (ESGIC) 27 Starting Medical 50-325-40 Wed Branch mg tablet 1 11/20/20 at tablet 1312, Until Discontinu ed, Routine, zofran ketorolac Yes [id number] 10mg Take 1 Un carolann 10 mg 5-26 tablet by ity of tablet 00:00: mouth [place] 00 every 6 Medical (six) Branch hours as needed for Pain (scale 4-6). cyclobenzap Yes [id number] 10mg Take 1 Univers rine 10 mg 5-26 tablet by ity of tablet 00:00: mouth 3 [place] 00 (three) Medical times Branch daily. ketorolac Yes [id number] 10mg Take 1 Un carolann 10 mg 5-26 tablet by ity of tablet 00:00: mouth [place] 00 every 6 Medical (six) Branch hours as needed for Pain (scale 4-6). cyclobenzap Yes [id number] 10mg Take 1 Univers rine 10 mg 5-26 tablet by ity of tablet 00:00: mouth 3 [place] 00 (three) Medical times Branch daily. ketorolac 2021- No [id number] 10mg Take 1 U nivers 10 mg 5-26 - tablet by ity of tablet 00:00: 00:00 mouth [place] 00 :00 every 6 Medical (six) Branch hours as needed for Pain (scale 4-6). cyclobenzap 2021- No [id number] 10mg Take 1 Univers rine 10 mg [...] 09/26/20 Branch at 2245, RODRICK ondansetron Yes [id number] 4mg Take 1 Univers (ZOFRAN 4-01 tablet by ity of ODT) 4 mg 00:00: mouth [place] disintegrat 00 every 8 Medic al ing tablet (eight) Branch hours as needed for Nausea and Vomiting (N/V). ondansetron Yes [id number] 4mg Take 1 Univers (ZOFRAN 4-01 tablet by ity of ODT) 4 mg 00:00: mouth [place] disintegrat 00 every 8 Medic al ing tablet (eight) Branch hours as needed for Nausea and Vomiting (N/V). ondansetron Yes [id number] 4mg Take 1 Univers (ZOFRAN 4-01 tablet by ity of ODT) 4 mg 00:00: mouth [place] disintegrat 00 every 8 Medic al ing tablet (eight) Branch hours as needed for Nausea and Vomiting (N/V). ondansetron 2021- No [id number] 4mg Take 1 Univers (ZOFRAN 4-01 09-01 tablet by ity of ODT) 4 mg 00:00: 00:00 mouth [place] disintegrat 00 :00 every 8 Medic al ing tablet (eight) Branch hours as needed for Nausea and Vomiting (N/V). proMETHazin Yes [id number] 25mg Take 1 Univers e 25 mg 2-09 tablet by ity of tablet 00:00: mouth [place] 00 every 6 Medical (six) Branch hours as needed for Nausea and Vomiting (N/V). proMETHazin 2020- Yes [id number] 25mg Take 1 Univers e 25 mg 2-09 tablet by ity of tablet 00:00: mouth [place] 00 every 6 Medical (six) Branch hours as needed for Nausea and Vomiting (N/V). proMETHazin Yes [id number] 25mg Take 1 Univers e 25 mg 2- tablet by ity of tablet 00:00: mouth [place] 00 every 6 Medical (six) Branch hours as needed for Nausea and Vomiting (N/V). proMETHazin 2021- No [id number] 25mg Take 1 Univers e 25 mg [...] Name Td 2011-06-28 Completed University of 00:00:00 [facility] Td 2011-06-28 Completed University of :00: [facility] Td 2011-06-28 Completed University of :00: [facility] Td 2011-06-28 Completed University of 00:00:00 [facility] Td 2011-06-28 Completed University of :00: [facility] Td 2011-06-28 Completed University of :00:00 [facility] Vital Signs Vital Name Observation Time Observation Value Comments Source Systolic blood 2022-05-29 04:19:00 123 mm[Hg] Univer sity of pressure [facility] Diastolic blood 2022-05-29 04:19:00 87 [...] /min University of Arterial blood by [place] [employer] [facility] Pulse oximetry Branch Body height 2022-02-27 [...] University of Arterial blood by [facility] Pulse oximetry Branch Systolic blood 2020-12-31 06:49:00 [...] University of Arterial blood by [facility] Pulse oximetry Branch Systolic blood 2020-11-20 19:58:00 [...] University of Arterial blood by [facility] Pulse oximetry Branch Body weight 2020-11-20 16:43:00 [...] /min University of Arterial blood by [place] [employer] [facility] Pulse oximetry Branch Body weight 2020-11-20 [...] /min University of Arterial blood by [place] [employer] [facility] Pulse oximetry Branch Body height 2020-09-26 [...] 97 /min University of Arterial blood by [employer] Pulse oximetry Branch Systolic blood 2020-07-17 14:00:00 [...] 100 /min University of Arterial blood by [employer] Pulse oximetry Branch Body temperature 2020-07-17 11:50:00 [...] University of Arterial blood by [facility] Pulse oximetry Branch Body temperature 2020-07-17 11:50:00 37.22 [place] [facility] Body weight 2020-07-17 11:50:00 86.183 kg [facility] BMI 2020-07-17 11:50:00 37.11 kg/m2 [facility] Systolic blood 2022-07-22 19:04:00 122 mm[Hg] [facility] pressure Diastolic blood 2022-07-22 19:04:00 72 mm[Hg] [facility] pressure Heart rate 2022-07-22 19:04:00 72 /min [facility] Respiratory rate 2022-07-22 19:04:00 18 /min [facility] Oxygen saturation in 2022-07-22 19:04:00 100 /min [facility] Arterial blood by Pulse oximetry Body temperature 2022-07-22 17:04:00 36.72 [place] [facility] Body height 2022-07-22 17:04:00 157.5 cm [facility] Body weight 2022-07-22 17:04:00 85.276 kg [facility] BMI 2022-07-22 17:04:00 34.39 kg/m2 [facility] Systolic blood 2022-03-26 13:44:00 139 mm[Hg] Method [facility] Hospital pressure Diastolic blood 2022-03-26 13:44:00 83 mm[Hg] [facility] pressure Heart rate 2022-03-26 13:44:00 101 /min [facility] Respiratory rate 2022-03-26 13:44:00 18 /min [facility] Oxygen saturation in 2022-03-26 13:44:00 100 /min [facility] Arterial blood by Pulse oximetry Body temperature 2022-03-26 12:32:00 36.72 [place] [facility] Body height 2022-03-26 12:32:00 157.5 cm [facility] Body weight 2022-03-26 12:32:00 85.276 kg [facility] BMI 2022-03-26 12:32:00 34.39 kg/m2 [facility] Procedures Procedure Date / Time Performing Clinician Source Performed URINE CULTURE 2022-07-22 19:12:00 [facility]OLIC 2022-07-22 17:33:[address] [facility] PANEL ESTIMATED GFR 2022-07-22 17:33:00 [facility] RE[facility] STONE PROTOCOL 2022-07-22 17:13:55 Zaheer Nash [facility] CBC WITH PLATELET AND 2022-07-22 16:33:00 [facility] DIFFERENTIAL COMPREHENSIVE METABOLIC 2022-07-22 16:33:[address] [facility] PANEL ESTIMATED GFR 2022-07-22 16:33:00 [facility] URINALYSIS SCREEN AND 2022-07-22 16:22:00 [facility] MICROSCOPY, WITH REFLEX TO CULTURE US PELVIS COMPLETE WITH 2022-05-29 02:07:00 Lorena Simpson Un [facility] TRANSVAGINAL [facility] CT ABDOMEN PELVIS W 2022-05-29 00:28:[address] [facility] CONTRAST [facility] COMP. METABOLIC PANEL 2022-05-29 00:07:00 Lorena Simpson [facility] ([id number]) [facility] CBC WITH DIFF 2022-05-29 00:07:00 Lorena Simpson [facility] URINALYSIS 2022-05-28 23:56:00 Lorena Simpson [facility] POCT TEST 2022-05-28 23:53:00 Lorena Simpson [facility] CONSENT/REFUSAL FOR 2022-05-28 23:40:29 Doctor Unassigned, No Un [facility] DIAGNOSIS AND TREATMENT Name Medical Branch URINALYSIS 2022-03-26 13:06:00 Ania Lopez [facility] HCG QUALITATIVE, URINE 2022-03-26 13:06:[address] [facility] SCREEN URINALYSIS 2022-03-26 13:06:00 [facility] HCG QUALITATIVE, URINE 2022-03-26 13:06:00 [facility] SCREEN CBC WITH PLATELET AND 2022-03-26 12:46:00 [facility] DIFFERENTIAL COMPREHENSIVE METABOLIC 2022-03-26 12:46:00 [facility] PANEL ESTIMATED GFR 2022-03-26 12:46:00 [facility] CBC WITH PLATELET AND 2022-03-26 12:46:00 [facility] DIFFERENTIAL POCT TEST 2022-02-27 04:56:00 Afsaneh Cra [facility] LIPASE 2022-02-27 04:04:[address] [facility] TROPONIN I 2022-02-27 04:04:[address] [facility] THYROID STIMULATING 2022-02-27 04:04:00 Afsaneh Car [facility] HORMONE [facility] COMP. METABOLIC PANEL 2022-02-27 04:04:00 Afsaneh Car [facility] ([id number]) [facility] CBC WITH DIFF 2022-02-27 04:04:[address] [facility] URINALYSIS 2022-02-27 03:56:[address] [facility] URINE DRUG (IMMUNOASSAY) 2022-02-27 03:56:00 [facility]h [facility] SCREEN W/O REFLEX NOTICE OF PRIVACY 2022-02-27 03:05:57 Doctor Unassigned, No Univ [facility] PRACTICES Name [facility] CONSENT/REFUSAL FOR 2022-02-27 03:04:00 [facility], [facility] Name [facility] METABOLIC 2022-02-18 05:17:00 Carlos Hernandez [facility] PANEL ESTIMATED GFR 2022-02-18 05:17:00 Carlos Hernandez Ho spital COMPREHENSIVE METABOLIC 2022-02-18 04:38:00 [facility] PANEL ESTIMATED GFR 2022-02-18 04:38:[address] ABDOMEN PELVIS WO 2022-02-18 04:17:35 Carlos Hernandez [facility] CONTRAST URINE CULTURE 2022-02-18 04:00:00 Carlos Hernandez spital CBC WITH PLATELET AND 2022-02-18 04:00:00 Carlos Hernandez [facility] DIFFERENTIAL COMPREHENSIVE METABOLIC 2022-02-18 04:00:00 Carlos Hernandez [facility] PANEL ESTIMATED GFR 2022-02-18 04:00:00 Carlos Hernandez spital HCG QUALITATIVE, URINE 2022-02-18 02:50:00 Carlos Hernandez [facility] SCREEN URINALYSIS 2022-02-18 02:50:00 Carlos Hernandez spital RAPID STREP SCREEN FOR 2020-12-31 07:13:00 Akiko Dunaway [facility] GROUP A [facility] NOTICE OF PRIVACY 2020-12-31 06:34:54 Doctor Unassigned, No [facility] PRACTICES Name [facility] CONSENT/REFUSAL FOR 2020-12-31 06:34:35 [facility]igned[facility] Name [facility] CT HEAD WO CONTRAST 2020-11-20 18:18:22 John Rivera [facility] POCT TEST 2020-11-20 17:50:00 John Rivera [facility] BASIC METABOLIC PANEL 2020-11-20 17:24:[address] [facility] (NA, K, CL, CO2, Medical Branch GLUCOSE, BUN, CREATININE, CA) CBC WITH DIFF 2020-11-20 17:24:00 John Rivera [facility] CONSENT/REFUSAL FOR 2020-11-20 16:36:59 [facility]ATMENT Name [facility] POCT TEST 2020-09-27 02:56:00 Tricia Herbert [facility] ASSIGNMENT OF BENEFITS 2020-09-27 01:35:31 Doctor Unassigned, No [facility] Name [facility] CONSENT/REFUSAL FOR 2020-09-26 23:26:24 Doctor Unassigned, No [facility] [place] DIAGNOSIS AND TREATMENT Name [facility] URINALYSIS 2020-07-17 14:08:[address] [facility] POCT TEST 2020-07-17 14:08:00 Wild Cowart [facility] CBC WITH DIFF 2020-07-17 12:25:[address] [facility] NOTICE OF PRIVACY 2020-07-17 11:48:39 Doctor Unassigned, No Univ [facility] PRACTICES Name [facility] CONSENT/REFUSAL FOR 2020-07-17 11:44:41 Doctor Unassigned, No [facility] DI[facility] AND TREATMENT [facility] Plan of Care Planned Activity Planned Date Details Comments Source Future Scheduled 2022-07-30 COVID-[address] [facility] Test 22:48:12 (#1) [code = COVID-19 VACCINE (#1)] Future Scheduled 2022-07-30 [facility] 22:48:12 screening (procedure) [code = 705227746] Future Scheduled 2022-07-30 [facility] 22:48:12 malignant neoplasm of cervix (procedure) [code = 731957232] Future Scheduled 2022-07-30 INFLUENZA VACCINE [facility] Test 22:48:12 [code = INFLUENZA VACCINE] Future Scheduled 2022-07-23 COVID-[address] [facility] Test 22:23:51 (#1) [code = COVID-19 VACCINE (#1)] Future Scheduled 2022-07-23 [facility] 22:23:51 screening (procedure) [code = 611753772] Future Scheduled 2022-07-23 [facility] 22:23:51 malignant neoplasm of cervix (procedure) [code = 267829560] Future Scheduled 2022-07-23 INFLUENZA VACCINE [facility] Test 22:23:51 [code = INFLUENZA VACCINE] Future Scheduled 2022-07-23 COVID-[address] [facility] Test 14:05:40 (#1) [code = COVID-19 VACCINE (#1)] Future Scheduled 2022-07-23 [facility] 14:05:40 screening (procedure) [code = 025121860] Future Scheduled 2022-07-23 [facility] 14:05:40 malignant neoplasm of cervix (procedure) [code = 201576273] Future Scheduled 2022-07-23 INFLUENZA VACCINE [facility] Test 14:05:40 [code = INFLUENZA VACCINE] Future Scheduled 2022-07-16 COVID-19 VACCINE [facility] Test 00:01:34 (#1) [code = COVID-19 VACCINE (#1)] Future Scheduled 2022-07-16 [facility]:34 screening (procedure) [code = 806761588] Future Scheduled 2022-07-16 [facility] 00[facility]01:34 malignant neoplasm of cervix (procedure) [code = 530986220] Future Scheduled 2022-07-16 [facility]:01:34 [code = INFLUENZA VACCINE] Future Scheduled 2022-06-20 COVID-[address] [facility] 00:27:46 (#1) [code = COVID-19 VACCINE (#1)] Future Scheduled 2022-06-20 [facility] 00:27:46 screening (procedure) [code = 766216093] Future Scheduled 2022-06-20 [facility] 00:27:46 malignant neoplasm of cervix (procedure) [code = 994186806] Future Scheduled 2022-06-20 [facility] 00:27:46 [code = INFLUENZA VACCINE] Future Scheduled 2022-06-12 COVID-[address] [facility] 16:29:41 (#1) [code = COVID-19 VACCINE (#1)] Future Scheduled 2022-06-12 [facility] 16:29:41 screening (procedure) [code = 307094628] Future Scheduled 2022-06-12 [facility] 16:29:41 [code = INFLUENZA VACCINE] Future Scheduled 2022-04-29 [facility] 09:57:18 VACCINES (1 of 3 - 3-dose series) [code = HEPATITIS B VACCINES (1 of 3 - 3-dose series)] Future Scheduled 2022-04-29 [facility] 09:57:18 (#1) [code = COVID-19 VACCINE (#1)] Future Scheduled 2022-04-29 [facility] 09:57:18 screening (procedure) [code = 330745242] Future Scheduled 2022-04-29 [facility] 09:57:18 malignant neoplasm of cervix (procedure) [code = 115154950] Future Scheduled 2022-04-29 [facility] 09:57:18 [code = INFLUENZA VACCINE] Future Scheduled 2022-03-26 [facility] 18:56:00 VACCINES (1 of 3 - 3-dose series) [code = HEPATITIS B VACCINES (1 of 3 - 3-dose series)] Future Scheduled 2022-03-26 [facility] (#[facility]) [code = COVID-19 VACCINE (#1)] Future Scheduled 2022-03-26 [facility] 18:56:00 screening (procedure) [code = 951657520] Future Scheduled 2022-03-26 [facility] 18:56:00 malignant neoplasm of cervix (procedure) [code = 163183090] Future Scheduled 2022-03-26 [facility] 18:56:00 [code = INFLUENZA VACCINE] Future Scheduled 2022-03-26 [facility] 18:56:00 VACCINES (1 of 3 - 3-dose series) [code = HEPATITIS B VACCINES (1 of 3 - 3-dose series)] Future Scheduled 2022-03-26 [facility] 18:56:00 (#1) [code = COVID-19 VACCINE (#1)] Future Scheduled 2022-03-26 [facility] 18:56:00 screening (procedure) [code = 594257730] Future Scheduled 2022-03-26 [facility] 18:56:00 malignant neoplasm of cervix (procedure) [code = 285224702] Future Scheduled 2022-03-26 [facility] 18:56:00 [code = INFLUENZA VACCINE] Future Scheduled 2022-03-26 [facility] 18:56:00 VACCINES (1 of 3 - 3-dose series) [code = HEPATITIS B VACCINES (1 of 3 - 3-dose series)] Future Scheduled 2022-03-26 [facility] 18:56:00 (#1) [code = COVID-19 VACCINE (#1)] Future Scheduled 2022-03-26 [facility] 18:56:00 screening (procedure) [code = 694144951] Future Scheduled 2022-03-26 [facility] 18:56:00 malignant neoplasm of cervix (procedure) [code = 459809011] Future Scheduled 2022-03-26 [facility] 18:56:00 [code = INFLUENZA VACCINE] Future Scheduled 2022-03-26 [facility] 08:33:14 VACCINES (1 of 3 - 3-dose series) [code = HEPATITIS B VACCINES (1 of 3 - 3-dose series)] Future Scheduled 2022-03-26 [facility] 08:33:14 (#1) [code = COVID-19 VACCINE (#1)] Future Scheduled 2022-03-26 [facility] 08:33:14 screening (procedure) [code = 703745757] Future Scheduled 2022-03-26 [facility] 08:33:14 malignant neoplasm of cervix (procedure) [code = 093636079] Future Scheduled 2022-03-26 [facility] 08:33:14 [code =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 positive RUBSC) inaccordance wi th the CLSI guidelines and based on the O International S tandard for Anti-Rubell a serum as anindicator of immune status and a br eakpoint to detect mostseropositiv e persons. AB [id number] 04:15:00 Test Item Value Reference Range Interpretation Comments AB TREPONEMA (test code = TREPAB) NONREACTIVE NONREACTIVE AG HEPATITIS B [id number] 04:00:00 Test Item Value Reference Range Interpretation Comments AG HEPATITIS B SURFACE (test code NONREACTIVE NONREACTIVE = HBSAG) AB HEPATITIS C [id number] 04:00:00 Test Item Value Reference Range Interpretation Comments AB HEPATITIS C (test code = HCVAB) NONREACTIVE SIGNAL TO CUTOFF (test code = CUTOFF) <0.80 RUBELLA [id number] 04:00:00 Test Item Value Reference Range Interpretation Comments RUBELLA SCREEN 70.2 IUnit/ml Results >10. 0IUnits/ml (test code = are considered positive RUBSC) inaccordance wi th the CLSI guidelines and based on the O International S tandard for Anti-Rubell a serum as anindicator of immune status and a br eakpoint to detect mostseropositiv e persons. AB [id number] 04:00:00 Test Item Value Reference Range Interpretation Comments AB TREPONEMA (test code = TREPAB) NONREACTIVE NONREACTIVE CBC W/AUTO [id number] 00:36:00 Test Item Value Reference Range Interpretation [...]
[2022-09-09] MEDS ORDERED: ACETAMINOPHEN 500 MG TAB ONE (12:45)
[2022-09-09] MEDS ORDERED: NA CHLORIDE 0.9% 1,000 ML ONE (12:45)
[2022-09-09 13:31] LABS: SARS-COV-2 RT PCR NEGATIVE (NEGATIVE)
[2022-09-09] MEDS ORDERED: HYDROCODONE/CHLORPHEN 5 ML/OSYR ONE (13:54)
[2022-09-09] MEDS ORDERED: ONDANSETRON 4 MG (ODT) TAB ONE (13:55)
--- NOTE | 2022-09-09 14:28 | RAD REPORT ---
EXAM DESCRIPTION: RAD - Chest Pa And Lat (2 Views) - 09/09/2022 2:05 pm CLINICAL HISTORY: COUGH Chest pain. COMPARISON: Chest Single View dated 08/15/2021; Chest Single View dated 02/16/2021; Chest Pa And Lat ( 2 Views) dated 02/12/2021; Chest Single View dated 01/15/2021 FINDINGS: The lungs are clear. The heart is normal in size. No displaced fractures. IMPRESSION: No acute or concerning finding suspected.
--- NOTE | 2022-09-09 15:05 | EDPHYS ---
Physician Documentation [facility] Name: Carla Duncan Age: 26 yrs Sex: Female : 1995 Arrival Date: 09/09/2022 Time: 11:36 Bed IW1 Private MD: Pancho Ortega ED Physician Jose Laws HPI: 09/09 12:39 This 26 yrs old Female presents to ER via Ambulatory with complaints of sb4 Vomiting, Cough. 12:39 The patient presents to the emergency department with nausea, vomiting, diarrhea. sb4 Onset: The symptoms/episode began/occurred 2 week(s) ago. Associated signs and symptoms:. 26 year old female with hypertension and asthma who presents with 2 weeks of cough. She reports associated nausea, vomiting, diarrhea, productive cough with blood tinged green sputum, headache. States she was seen by her PCP 2 days ago, tested negative for covid, and got rocephin shot, steroid shot, and zpack.. 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 - Social history:: Smoking status: Reported history of juuling and/or vaping. ROS: 12:39 Constitutional: Negative for fever, chills, and weight loss, Eyes: Negative for injury, sb4 pain, redness, and discharge, Cardiovascular: Negative for chest pain, palpitations, and edema, Back: Negative for injury and pain, MS/Extremity: Negative for injury and deformity, Skin: Negative for injury, rash, and discoloration. 12:39 ENT: Positive for nasal discharge, sinus congestion, sore throat, Negative for ear pain, tinnitus, difficulty swallowing. 12:39 Respiratory: Positive for cough, with green sputum, hemoptysis, Negative for dyspnea on exertion, shortness of breath, wheezing. 12:39 Abdomen/GI: Positive for nausea, vomiting, and diarrhea, Negative for constipation, abdominal distension, anorexia, dysphagia. Exam: 12:39 Constitutional: This is a well developed, well nourished patient who is awake, alert, sb4 and in no acute distress. Head/Face: Normocephalic, atraumatic. Eyes: Extra-ocular motions intact. Periorbital areas with no swelling, redness, or edema. ENT: Mucous membranes moist. Cardiovascular: Regular rate and rhythm with a normal S1 and S2. Respiratory: Lungs have equal breath sounds bilaterally, clear to auscultation and percussion. No rales, rhonchi or wheezes noted. No increased work of breathing, no retractions or nasal flaring. Abdomen/GI: Soft, non-tender, no distension. Back: No spinal tenderness. No costovertebral tenderness. Full range of motion. Skin: Warm, dry with normal turgor. Normal color with no rashes, no lesions, and no evidence of cellulitis. MS/ Extremity: Pulses equal, no cyanosis. Neurovascular intact. Full, normal range of motion. Vital Signs: 12:28 BP 126 / 84; Pulse 95; Resp 18; Temp 97.9; Pulse Ox 99% ; Weight 68.04 kg; Height 5 ft. mb9 0 in. ; Pain 10/10; 12:28 Body Mass Index 29.29 (68.04 kg, 152.4 cm) mb9 12:28 Pain Scale: Adult mb9 MDM: 12:38 Patient medically screened. sb4 12:42 Differential diagnosis: covid, flu, strep, pneumonia, URI, sinus infection. sb4 15:03 Data reviewed: vital signs, nurses notes, lab test result(s), radiologic studies, and sb4 as a result, I will discharge patient. 09/09 12:38 Order name: Strep mb9 09/09 12:38 Order name: COVID-19/FLU A+B mb9 09/09 12:39 Order name: Strep; Complete Time: 13:08 sb4 09/09 12:38 Order name: IV Saline Lock; Complete Time: 13:17 mb9 09/09 12:39 Order name: COVID-19/FLU A+B; Complete Time: 13:40 sb4 09/09 12:39 Order name: Chest Pa And Lat (2 Views) XRAY; Complete Time: 14:30 sb4 09/09 13:05 Order name: Throat Culture EDMS Administered Medications: 12:41 Not Given (Patient Refused): Acetaminophen PO 1000 mg PO once mb9 13:47 Drug: NS 0.9% IV 1000 ml Route: IV; Rate: 1 bolus; Site: right antecubital; mb9 14:44 Drug: Ondansetron PO 4 mg Route: PO; mb9 14:44 Drug: Tussionex Pennkinetic ER PO Suspension 5 ml Route: PO; mb9 Disposition Summary: 09/09/22 15:04 Discharge Ordered Location: Home sb4 Problem: an ongoing problem sb4 Symptoms: are unchanged sb4 Condition: Stable sb4 Diagnosis - Other acute sinusitis sb4 Followup: sb4 - With: Pancho Ortega MD - When: 2 - 3 days - Reason: Recheck today's complaints, Re-evaluation by your physician Forms: - Medication Reconciliation Form sb4 - Thank You Letter sb4 - Antibiotic Education sb4 - Prescription Opioid Use sb4 Signatures: Dispatcher [employer] Lynn Espinosa PA-C PA-C sb4 Kathryn Nails, RN RN mb9
--- NOTE | 2022-09-09 15:05 | ER ---
Nurse's Notes [facility] Name: Carla Duncan Age: 26 yrs Sex: Female : 1995 Arrival Date: 09/09/2022 Time: 11:36 Bed IW1 Private MD: Pancho Ortega Diagnosis: Other acute sinusitis Presentation: 09/09 12:28 Chief complaint: Patient states: "I've been sick for 2 weeks. My cough won't go away mb9 and there is a little blood in my snot. My PCP gave me Rocephin and antibiotics and it's not working. I'm still coughing and puking. My head and throat hurt. I have Diarrhea. I've been out of work for a week now". Coronavirus screen: Vaccine status: Patient reports receiving the 2nd dose of the covid vaccine. Ebola Screen: No symptoms or risks identified at this time. Initial Sepsis Screen: Does the patient meet any 2 criteria? No. Patient's initial sepsis screen is negative. Does the patient have a suspected source of infection? No. Patient's initial sepsis screen is negative. Risk Assessment: Do you want to hurt yourself or someone else? Patient reports no desire to harm self or others. Onset of symptoms was August 26, 2022. 12:28 Method Of Arrival: Ambulatory [facility] 12:28 Acuity: VENKATESH 3 mb9 Triage Assessment: 12:33 General: Appears uncomfortable, ill, Behavior is calm, cooperative, appropriate for mb9 age. Pain: Complains of pain in head and throat Pain does not radiate. Pain currently is 10 out of 10 on a pain scale. Quality of pain is described as aching, throbbing. Neuro: Level of Consciousness is awake, alert, obeys commands, Oriented to person, place, time, situation, Appropriate for age. Cardiovascular: Patient's skin is warm and dry. Respiratory: Reports cough that is Airway is patent Respiratory effort is even, unlabored, Respiratory pattern is regular, symmetrical. GI: Abdomen is round non-distended, Bowel sounds present X 4 quads. Abd is soft and non tender X 4 quads. Reports diarrhea, nausea. Derm: Skin is pink, warm \\T\\ dry. Musculoskeletal: Range of motion: intact in all extremities. 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 - Social history:: Smoking status: Reported history of juuling and/or vaping. Assessment: 12:35 Reassessment: see triage assessment. mb9 13:50 Reassessment: pt taken to CT via wheelchair. Reassessment: pt states "is it ok if I mb9 order some food while waiting in the ER?" pt educated about importance of not eating due to vomiting and nausea. Vital Signs: 12:28 BP 126 / 84; Pulse 95; Resp 18; Temp 97.9; Pulse Ox 99% ; Weight 68.04 kg; Height 5 ft. mb9 0 in. ; Pain 10/10; 12:28 Body Mass Index 29.29 (68.04 kg, 152.4 cm) mb9 12:28 Pain Scale: Adult mb9 ED Course: 11:36 Patient arrived in ED. mr 11:37 Pancho Ortega MD is Private Physician. mr 11:47 Lynn Bliss PA-C is [facility]. sb4 11:47 Jose Laws MD is Attending Physician. sb4 12:30 Triage completed. mb9 12:31 Arm band placed on. mb9 13:18 Inserted saline lock: 20 gauge in left antecubital area, using aseptic technique. bc6 14:07 Chest Pa And Lat (2 Views) XRAY In Process Unspecified. EDMS 15:04 Pancho Ortega MD is Referral Physician. sb4 Administered Medications: 12:41 Not Given (Patient Refused): Acetaminophen PO 1000 mg PO once mb9 13:47 Drug: NS 0.9% IV 1000 ml Route: IV; Rate: 1 bolus; Site: right antecubital; mb9 14:44 Drug: Ondansetron PO 4 mg Route: PO; mb9 14:44 Drug: Tussionex Pennkinetic ER PO Suspension 5 ml Route: PO; mb9 Medication: 12:32 VIS not applicable for this client. mb9 Outcome: 15:04 Discharge ordered by MD. hernandez Signatures: Dispatcher [employer] ELFEGOMS Gandhi Kathryn BlissLynn, ADAM gale4 Kathryn Nails, RN RN mb9 Irma Abrams bc6 Corrections: (The following items were deleted from the chart) 12:30 12:28 Chief complaint: Patient states: "I've been sick for 2 weeks. My cough won't go mb9 away. My PCP gave me Rocephin and antibiotics and it's not working. I'm still coughing and puking" mb9 12:32 12:28 Chief complaint: Patient states: "I've been sick for 2 weeks. My cough won't go mb9 away. My PCP gave me Rocephin and antibiotics and it's not working. I'm still coughing and puking. My head and throat hurt. I have Diarrhea. I've been out of work for a week now" mb9 12:37 12:28 Acuity: VENKATESH 4 mb9 mb9
[2022-09-09 21:28] VITALS: TEMP 97.9; O2SAT 99
[2022-09-09 21:30] VITALS: BP 124/86
== END 2022-09-09 15:48 | disposition home or self-care (01) ==
LOC: ER 11:34
DX: J01.80 Other acute sinusitis (principal); R11.2 Nausea with vomiting, unspecified; Z20.822 Contact with and (suspected) exposure to COVID-19; Z88.1 Allergy status to other antibiotic agents; Z88.5 Allergy status to narcotic agent
CPT/HCPCS: 87070; 87081; 0240U; 71046; Q0162; J7030

== ENCOUNTER 2022-09-11 03:44 | Emergency (ER) | payer OTHER ==
--- OUTSIDE RECORDS SUMMARY | 2022-09-11 03:50 | XMS REPORT | Continuity of Care Document ---
:1995 Author Organization [facility] t Address [address] [place] [address] Care Team Providers Name Role Phone Asked, No Pcp Primary Care Physician Unavailable Nash Schwab MD Attending Clinician MENDY LIRIANO Attending Clinician Unavailable Calvin AREVALO, Alma Real Attending Clinician [phone] Mendy Liriano MD Attending Clinician IZA DNESON Attending Clinician Unavailable Jessica AREVALO, Ania Attending Clinician DENIS CAR Attending Clinician Unavailable Stephy SAM, Denis Alarcon Attending Clinician Carlos Hernandez DO Attending Clinician Gume GUERREROP, Akiko Attending Clinician Rivera PAC, John S Attending Clinician Troy PAC, Tricia Teixeira Attending Clinician MIGUEL, JOHN S Attending Clinician Unavailable Austin Cowart MD Attending Clinician Dani Kauffman DO Attending Clinician ALMA SIMPSON Admitting Clinician Unavailable Austin Barrera Admitting Clinician Unavailable Payers Payer Name Policy Type Policy Number Effective Date Expiration Date S shobha GOODETTER FROM [id number] 2020 [facility] 00:00:00 [facility] [id number] 2019 00:00:00 Problems Condition Condition Condition Status Onset Resolution Last Treating Co mments Source Name Details Category Date Date Treatment Clinician Date Obesity Obesity Disease Active Univers (BMI (BMI 1-16 ity of 30-39.9) 30-39.9) 00:00: [place] [id number] Medical Branch Urinary Urinary Disease Active Univers [...] 00 take with Medic al s Benadryl [place] KETOROLA DRUG Active Other-Cmnt Univ ers C [...] 00 l of [place] codeine DA Active GA 2018- [facility] [place] morphine DA Active U SWELLING 2018- [facility] 1-19 [facility] [place] codeine DA Active [place] nausea, 2018- [facility] headache -19 [facility] [place] tramadol DA Active [place] 2018- [facility] 2-31 [facility] [place] tramadol DA Active [place] CHEST PAIN 2017- [facility] 2-31 [facility] 00:00: [...] Date Stop Date Source Natural mother Diabetes [facility] Natural mother Menstrual problems [facility] Social History Social Habit Start Date Stop Date Quantity Comments Source Alcohol intake 2022-07-22 2022-07-22 Current drinker [facility] 00:00:00 00:00:00 of alcohol (finding) Exposure to 2022-05-18 2022-05-28 Not sure University of SARS-CoV-2 00:00:00 17:41:00 [facility] (event) [place] Tobacco use and 2022-03-26 2022-03-26 Smokeless tobacco [facility] exposure 00:00:00 00:00:00 non-user Alcohol Comment 2016-04-28 2016-04-28 social, weekly [facility] 00:00:00 00:00:00 Sex Ass[birth year] [facility] 00:00:00 00:00:00 Smoking Status Start Date Stop Date Source Never smoked tobacco [facility] Medications Ordered Filled Start Stop Current Ordering Indication Dosage Frequency Signature Comments Components Source Medication Medication Date Date Medication? Clinician (SIG) Name Name ciprofloxac 2023-0 Yes 500mg Q.5D Take 1 [facility]odi in (CIPRO) 1-[address] 500 MG 00:00: (500 mg Hospita tablet 00 total) by l mouth 2 (two) times a day. ciprofloxac 2023-0 Yes 500mg Q.5D Take 1 [facility]odi in (CIPRO) 1-[address] 500 MG 00:00: (500 mg Hospita tablet 00 total) by l mouth 2 (two) times a day. ciprofloxac 2023-0 Yes 500mg Q.5D Take 1 Met hodi in (CIPRO) 1-[address] 500 MG 00:00: (500 mg Hospita tablet 00 total) by l mouth 2 (two) times a day. ciprofloxac 2023-0 Yes 500mg Q.5D Take 1 Met hodi in (CIPRO) 1-[address] 500 MG 00:00: (500 mg Hospita tablet 00 total) by l mouth 2 (two) times a day. keTOROlac 2022-0 2022- No 10mg Q6H Take 1 Metho di (TORadol) 07-22 tablet (10 st 10 mg 00:00: 05:59 mg total) Hospit a tablet 00 :00 by mouth l every 6 (six) hours as needed for moderate pain for up to 5 days. keTOROlac 3-0 2022- Yes 10mg Q6H Take 1 Metho di (TORadol) 07-22 tablet (10 st 10 mg 00:00: 05:59 mg total) Hospit a tablet 00 :00 by mouth l every 6 (six) hours as needed for moderate pain for up to 5 days. keTOROlac 3-0 3- Yes 10mg Q6H Take 1 Metho di (TORadol) 07-22 tablet (10 st 10 mg 00:00: 05:59 mg total) Hospit a tablet 00 :00 by mouth l every 6 (six) hours as needed for moderate pain for up to 5 days. keTOROlac No 10mg Q6H Take 1 Metho di (TORadol) 07-22 tablet (10 st 10 mg 00:00: 05:59 mg total) Hospit a tablet 00 :00 by mouth l every 6 (six) hours as needed for moderate pain for up to 5 days. phenazopyri 2022- No 200mg Q.[id number] Take 1 Methodi dine 07-[id number] (Pyridium) 00:00: 05:59 3D (200 mg Hos radha 200 MG 00 :00 total) by l tablet mouth 3 (three) times a day as needed for bladder spasms for up to 3 days. phenazopyri 2022- Yes 200mg Q.[id number] Take 1 Methodi dine 07-[id number] (Pyridium) 00:00: 05:59 3D (200 mg Hos radha 200 MG 00 :00 total) by l tablet mouth 3 (three) times a day as needed for bladder spasms for up to 3 days. phenazopyri 2022- No 200mg Q.[id number] Take 1 Methodi dine 07-[id number] (Pyridium) 00:00: 05:59 3D (200 mg Hos radha 200 MG 00 :00 total) by l tablet mouth 3 (three) times a day as needed for bladder spasms for up to 3 days. phenazopyri 2022- No 200mg Q.[id number] Take 1 Methodi dine 07-[id number] (Pyridium) 00:00: 05:59 3D (200 mg Hos radha 200 MG 00 :00 total) by l tablet mouth 3 (three) times a day as needed for bladder spasms for up to 3 days. diphenhydrA 2021-06 No 25mg 25 mg, Uni vers MINE 07-30 Oral, ity of (BENADRYL) 04:30: 04:21 ONCE, 1 [place] as tablet 25 00 :00 dose, On Medica l mg Elicia Branch 05/28/22 at 2230, RODRICK FENTanyl PF 2021-06 No 75ug 75 mcg, Un carolann (SUBLIMAZE 07-30 Slow IV ity o f (PF)) 04:30: 03:51 Push, [place] injection 00 :00 ONCE, 1 Medical 75 mcg dose, On Branch [facility] 05/28/22 at 2230, Routine doxycycline 2021-06 No 100mg 100 mg, U nivers hyclate 07-30 Oral, ity of (Vibramycin 03:45: 03:51 [place]CE[place] capsule 00 :00 dose, On Medica l 100 mg [facility] 05/28/22 at 2145, RODRICK
Re ason for Anti-Infec tive: Documented Infection< br>Documen jd Infection Site: Pelvic
Duration of Therapy: Other (see Comments) morpHINE (4 2021-06- No 4mg 4 mg, Slow Univers mg/mL) 07-30 IV Push, ity of injection 4 02:30: 02:47 ONCE, 1 [place] mg 00 :00 dose, On Medical Elicia [place] 05/28/22 at 2030, STAT ketorolac 2021-06 No 15mg 15 mg, Unive rs (TORADOL) 07-30 Slow IV ity of injection 01:45: 01:01 Push, [place] 15 mg 00 :00 ONCE, 1 Medical dose, On [facility] 05/28/22 at 1945, Routine iopamidol 2021-06 No [id number] 75mL 75 mL, Univers (ISOVUE 07-30 Intravenou ity o f 370-500 mL) 01:15: 01:15 s, ONCE, 1 [place] injection 00 :00 dose, On Medica l 75 mL [facility] 05/28/22 at 1915, Routine FENTanyl PF 2021-06 No 50ug 50 mcg, Un carolann (SUBLIMAZE 07-30 Slow IV ity o f (PF)) 01:00: 00:11 Push, [place] injection 00 :00 ONCE, 1 Medical 50 mcg dose, On [facility] 05/28/22 at 1900, Routine ondansetron 2021-06 No 4mg 4 mg, Slow Univers (ZOFRAN 07-30 IV Push, ity of (PF)) 00:15: 00:11 ONCE, 1 [place] injection 4 00 :00 dose, On Medi [place] mg Elicia Branch 05/28/22 at 1815, RODRICK metroNIDAZO 2021-06 Yes [id number] 500mg Take 1 Univers LE 500 mg - tablet by ity o f tablet 00:00: mouth in [place] 00 the Medical morning Branch and 1 tablet in the evening. doxycycline 2021-06- No [id number] 100mg Take 1 Univers hyclate 100 07-29 [...] as needed for mild pain. ibuprofen 2021-0 2- No 800mg Q6H Take 800 Me thodi (ADVIL) 200 9-29 09-[address] MG tablet 08:46: 00:00 mouth Hospit a 55 :00 every 6 l (six) hours as needed for mild pain. ibuprofen 2021-0 2- No 800mg Q6H Take 800 Me thodi (ADVIL) 200 9-29 09-[address] MG tablet 08:46: 00:00 mouth Hospit a 55 :00 every 6 l (six) hours as needed for mild pain. ibuprofen 2021-0 2- No 800mg Q6H Take 800 Me thodi (ADVIL) 200 9-29 09-[address] MG tablet 08:46: 00:00 mouth Hospit a 55 :00 every 6 l (six) hours as needed for mild pain. ibuprofen 2- No 800mg Q6H Take 800 Me thodi [...] as needed for mild pain. ibuprofen 0 2- No 800mg Q6H Take 800 Me thodi [...] as needed for mild pain. ibuprofen 2021-0 2- No 800mg Q6H Take 800 Me thodi [...] 0.5 mg ity of tablet 12:44: tablet [facility] bupropion Yes bupropion Uni vers HBr 02-28 HBr ity of (APLENZIN 12:44: [place] ORAL) [facility] FLUoxetine Yes fluoxetine U nivers 20 mg 02-28 20 mg ity of capsule 12:44: capsule [facility] famotidine No 20mg 20 mg, Univ ers [...] 0.5 mg ity of tablet 23:48: tablet [place] [facility] bupropion Yes bupropion Uni vers HBr 02-26 HBr ity of (APLENZIN 23:48: [place] ORAL) [facility] FLUoxetine Yes fluoxetine U nivers 20 mg 02-26 20 mg ity of capsule 23:48: capsule [place] [facility] ciprofloxac 2021- No 500mg Q.5D Take 1 [...] a day for 7 days. phenazopyri 2021-0 2022- No 200mg Q.[id number] Take 1 Methodi dine 02-[id number] (PYRIDIUM) 00:00: 04:59 3D (200 mg Hos radha 200 MG 00 :00 total) by l tablet mouth 3 (three) times a day for 3 days. phenazopyri 2-0 2022- No 200mg Q.[id number] Take 1 Methodi dine 02-[id number] (PYRIDIUM) 00:00: 04:59 3D (200 mg Hos radha 200 MG 00 :00 total) by l tablet mouth 3 (three) times a day for 3 days. phenazopyri 2-0 2022- No 200mg Q.[id number] Take 1 Methodi dine 02-[id number] (PYRIDIUM) 00:00: 04:59 3D (200 mg Hos radha 200 MG 00 :00 total) by l tablet mouth 3 (three) times a day for 3 days. phenazopyri 2022-0 2022- No 200mg Q.[id number] Take 1 Methodi dine 02-[id number] (PYRIDIUM) 00:00: 04:59 3D (200 mg Hos radha 200 MG 00 :00 total) by l tablet mouth 3 (three) times a day for 3 days. phenazopyri 2021-0 2021- No 200mg Q.[id number] Take 1 Methodi dine 02-[id number] (PYRIDIUM) 00:00: 04:59 3D (200 mg Hos radha 200 MG 00 :00 total) by l tablet mouth 3 (three) times a day for 3 days. phenazopyri 2021-0 2021- No 200mg Q.[id number] Take 1 Methodi dine 02-[id number] (PYRIDIUM) 00:00: 04:59 3D (200 mg Hos radha 200 MG 00 :00 total) by l tablet mouth 3 (three) times a day for 3 days. phenazopyri 2021-0 2021- No 200mg Q.[id number] Take 1 Methodi dine 02-[id number] (PYRIDIUM) 00:00: 04:59 3D (200 mg Hos radha 200 MG 00 :00 total) by l tablet mouth 3 (three) times a day for 3 days. phenazopyri 2021-0 2021- No 200mg Q.[id number] Take 1 Methodi dine 02-[id number] (PYRIDIUM) 00:00: 04:59 3D (200 mg Hos radha 200 MG 00 :00 total) by l tablet mouth 3 (three) times a day for 3 days. phenazopyri 2021-0 2021- No 200mg Q.[id number] Take 1 Methodi dine 02-[id number] (PYRIDIUM) 00:00: 04:59 3D (200 mg Hos radha 200 MG 00 :00 total) by l tablet mouth 3 (three) times a day for 3 days. phenazopyri 2021-0 2021- No 200mg Q.[id number] Take 1 Methodi dine 02-[id number] (PYRIDIUM) 00:00: 04:59 3D (200 mg Hos radha 200 MG 00 :00 total) by l tablet mouth 3 (three) times a day for 3 days. phenazopyri 0 2021- No 200mg Q.[id number] Take 1 Methodi dine 02-[id number] (PYRIDIUM) 00:00: 04:59 3D (200 mg Hos radha 200 MG 00 :00 total) by l tablet mouth 3 (three) times a day for 3 days. phenazopyri 0 2021- No 200mg Q.[id number] Take 1 Methodi dine 02-[id number] (PYRIDIUM) 00:00: 04:59 3D (200 mg Hos radha 200 MG 00 :00 total) by l tablet mouth 3 (three) times a day for 3 days. ondansetron 2020- No 4mg 4 mg, Univ ers (ZOFRAN-ODT 12-31 Oral, ity of ) 09:15: 08:20 ONCE, 1 [place] disintegrat 00 :00 dose, [facility] Med ical ing tablet 12/31/20 at Bran ch 4 mg 0415, Routine diphenhydrA 2020- No 25mg 25 mg, Uni vers MINE 12-31 Oral, ity of (BENADRYL) 09:15: 08:20 ONCE, 1 [place] as tablet 25 00 :00 dose, [facility] Medic al mg 12/31/20 at Branch 0415, RODRICK ibuprofen 2020- No 800mg 800 mg, Uni vers (IBU) 12-31 Oral, ity of tablet 800 08:00: 07:17 ONCE, 1 [place] as mg 00 :00 dose, [facility] Medical 12/31/20 at Branch 0300, RODRICK methocarbam 2020- No 1000mg 1,000 mg, Univers oL 12-31 Oral, ONCE ity of (ROBAXIN) 08:00: 07:17 NOW, 1 [place] tablet 00 :00 dose, [facility] Medical 1,000 mg 12/31/20 at Branch 0300, RODRICK ibuprofen Yes [id number] 800mg Take 1 U nivers 800 mg 12-31 tablet by ity of tablet 00:00: mouth [place] 00 every 8 Medical (eight) Branch hours as needed for Pain (scale 4-6). cyclobenzap Yes [id number] 10mg Take 1 Univers rine 10 mg 7- tablet by ity of tablet 00:00: mouth 3 [place] 00 (three) Medical times Branch daily as needed for Muscle Spasms. ibuprofen 2021- No [id number] 800mg Take 1 Univers 800 mg 12-31 tablet by ity of tablet 00:00: 00:00 mouth [place] 00 :00 every 8 Medical (eight) Branch hours as needed for Pain (scale 4-6). cyclobenzap 2021- No [id number] 10mg Take 1 Univers rine 10 mg [...] 1,000 mL 00 :00 IV Medical Infusion, [place] ONCE, 1 dose, [facility] 11/20/20 at 1530, STAT metoclopram No 10mg 10 mg, Uni vers dio HCl 11-20 Slow IV ity of (REGLAN) 20:15: 19:18 Push, [place] injection 00 :00 ONCE, 1 Medical 10 mg dose, [facility] 11/20/20 at 1515, RODRICK ketorolac 2020- No 30mg 30 mg, Unive rs (TORADOL) 11-20 Slow IV ity of injection 20:15: 19:18 Push, [place] 30 mg 00 :00 ONCE, 1 Medical dose, [facility] 11/20/20 at 1515, RODRICK
Fa culty member approving Restricted medication : JOHN RIVERA diphenhydrA 2020- No 25mg 25 mg, Uni vers MINE 11-20-26 Slow IV ity of (BENADRYL) 20:15: 20:15 Push, [place] injection 00 :00 ONCE, 1 Medical 25 mg dose, Wed Branch 11/20/20 at 1515, STAT butalbital- Yes 1{tbl} 1 tablet, Univers acetaminoph 5-26 Oral, ity of en-caff 18:12: Q4HPRN, [place] (ESGIC) 27 Starting Medical 50-325-40 Wed Branch mg tablet 1 11/20/20 at tablet 1312, Until Discontinu ed, Routine, zofran ketorolac 0 Yes [id number] 10mg Take 1 Un carolann 10 mg 5-26 tablet by ity of tablet 00:00: mouth [place] 00 every 6 Medical (six) Branch hours as needed for Pain (scale 4-6). cyclobenzap Yes [id number] 10mg Take 1 Univers rine 10 mg 5-26 tablet by ity of tablet 00:00: mouth 3 [place] 00 (three) Medical times Branch daily. ketorolac Yes [id number] 10mg Take 1 Un carolann 10 mg 5-26 tablet by ity of tablet 00:00: mouth [place] 00 every 6 Medical (six) Branch hours as needed for Pain (scale 4-6). cyclobenzap Yes [id number] 10mg Take 1 Univers rine 10 mg 5-26 tablet by ity of tablet 00:00: mouth 3 [place] 00 (three) Medical times Branch daily. ketorolac 2021- No [id number] 10mg Take 1 U nivers 10 mg 5-26 - tablet by ity of tablet 00:00: 00:00 mouth [place] 00 :00 every 6 Medical (six) Branch hours as needed for Pain (scale 4-6). cyclobenzap 0 2021- No [id number] 10mg Take 1 Univers rine 10 mg 5-26 - tablet by ity of tablet 00:00: 00:00 mouth 3 [place] 00 :00 (three) Medical times Branch daily. ketorolac 2020-0 2020- No 30mg 30 mg, Unive rs (TORADOL) 4-02 04-02 Intramuscu ity of injection 03:45: 02:57 lar, ONCE, [place] 30 mg 00 :00 1 dose, Medical Elicia 09/26/20 Branch at 2245, RODRICK
[facility] Restricted medication : Tricia HERBERT [...] 09/26/20 Branch at 2245, RODRICK ondansetron Yes [id number] 4mg Take 1 Univers (ZOFRAN 4-01 tablet by ity of ODT) 4 mg 00:00: mouth [place] disintegrat 00 every 8 Medic al ing tablet (eight) Branch hours as needed for Nausea and Vomiting (N/V). ondansetron Yes [id number] 4mg Take 1 Univers (ZOFRAN 4-01 tablet by ity of ODT) 4 mg 00:00: mouth [place] disintegrat 00 every 8 Medic al ing tablet (eight) Branch hours as needed for Nausea and Vomiting (N/V). ondansetron Yes [id number] 4mg Take 1 Univers (ZOFRAN 4-01 tablet by ity of ODT) 4 mg 00:00: mouth [place] disintegrat 00 every 8 Medic al ing tablet (eight) Branch hours as needed for Nausea and Vomiting (N/V). ondansetron 2021- No [id number] 4mg Take 1 Univers (ZOFRAN 4-01 09-01 tablet by ity of ODT) 4 mg 00:00: 00:00 mouth [place] disintegrat 00 :00 every 8 Medic al ing tablet (eight) Branch hours as needed for Nausea and Vomiting (N/V). proMETHazin Yes [id number] 25mg Take 1 Univers e 25 mg 2-09 tablet by ity of tablet 00:00: mouth [place] 00 every 6 Medical (six) Branch hours as needed for Nausea and Vomiting (N/V). proMETHazin Yes [id number] 25mg Take 1 Univers e 25 mg 2-09 tablet by ity of tablet 00:00: mouth [place] 00 every 6 Medical (six) Branch hours as needed for Nausea and Vomiting (N/V). proMETHazin Yes [id number] 25mg Take 1 Univers e 25 mg 2-09 tablet by ity of tablet 00:00: mouth [place] 00 every 6 Medical (six) Branch hours as needed for Nausea and Vomiting (N/V). proMETHazin 2021- No [id number] 25mg Take 1 Univers e 25 mg 2-09 - tablet by ity of tablet 00:00: [...]
Fa culty member approving Restricted medication : LEONEL AUSTIN E NaCl 0.9% No 1000mL at 999 Uni [...] Hospita 500-60-15 17 l mg tablet acetaminoph 2019-1 Yes 2{tbl} Take 2 Me thodi en-caff-pyr [...] Immunizations Ordered Filled Immunization Date Status Comments [facility] e Immunization Name Name Td 2011-06-28 Completed [facility] 00:00:00 [facility] Td 2011-06-28 Completed University 00:00:00 [facility] Td 2011-06-28 Completed University 00:00:00 [facility] Td 2011-06-28 Completed University of 00:00:00 [place] [facility] Td 2011-06-28 Completed University of 00:00:00 [place] [facility] Td 2011-06-28 Completed University of 00:00:00 [facility] Branch Vital Signs Vital Name Observation Time Observation Value Comments Source Systolic blood 2022-05-29 04:19:00 123 mm[Hg] Univer sity of pressure [place] [facility] Diastolic blood 2022-05-29 04:19:00 87 mm[Hg] Unive rsity of pressure [place] [facility] Heart rate 2022-05-29 04:19:00 93 /min Universi ty of [place] [facility] Respiratory rate 2022-05-29 04:19:00 18 /min Univ ersity of [place] [facility] Oxygen saturation in 2022-05-29 04:19:00 97 /min University of Arterial blood by [place] [employer] Pulse oximetry Branch Body temperature 2022-05-28 23:42:00 37.11 [place] Univ ersity of [place] [facility] Body height 2022-05-28 23:42:00 152.4 cm Universi ty of [place] [facility] Systolic blood 2022-02-27 05:31:00 130 mm[Hg] Univer sity of pressure [place] [facility] Diastolic blood 2022-02-27 05:31:00 87 mm[Hg] Unive rsity of pressure [place] [facility] Heart rate 2022-02-27 05:31:00 98 /min Universi ty of [place] [facility] Respiratory rate 2022-02-27 05:31:00 18 /min Univ ersity of [place] [facility] Oxygen saturation in 2022-02-27 05:31:00 99 /min University of Arterial blood by [employer] Pulse oximetry Branch Body height 2022-02-27 03:38:00 152.4 cm Universi ty of [place] [facility] Body weight 2022-02-27 03:38:00 82.101 kg Universi ty of [place] [facility] BMI 2022-02-27 03:38:00 35.35 kg/m2 Universi ty of [facility] Body temperature 2022-02-27 03:36:00 36.28 [place] Univ ersity of [place] [facility] Systolic blood 2020-12-31 06:49:00 125 mm[Hg] Univer sity of pressure [place] [facility] Diastolic blood 2020-12-31 06:49:00 93 mm[Hg] Unive rsity of pressure [place] [facility] Heart rate 2020-12-31 06:49:00 104 /min Universi ty of [place] [facility] Body temperature 2020-12-31 06:49:00 36.83 [place] Univ ersity of [place] [facility] Respiratory rate 2020-12-31 06:49:00 15 /min Univ ersity of [place] [facility] Body height 2020-12-31 06:49:00 152.4 cm Universi ty of [place] [facility] Body weight 2020-12-31 06:49:00 92.5 kg Universi ty of [place] [facility] BMI 2020-12-31 06:49:00 39.83 kg/m2 Universi ty of [place] [facility] Oxygen saturation in 2020-12-31 06:49:00 99 /min University of Arterial blood by [facility] Pulse oximetry Branch Systolic blood 2020-12-31 06:49:00 125 mm[Hg] Univer sity of pressure [place] [facility] Diastolic blood 2020-12-31 06:49:00 93 mm[Hg] Unive rsity of pressure [place] [facility] Heart rate 2020-12-31 06:49:00 104 /min Universi ty of [place] [facility] Body temperature 2020-12-31 06:49:00 36.83 [place] Univ ersity of [place] [facility] Respiratory rate 2020-12-31 06:49:00 15 /min Univ ersity of [place] [facility] Body height 2020-12-31 06:49:00 152.4 cm Universi ty of [place] [facility] Body weight 2020-12-31 06:49:00 92.5 kg Universi ty of [place] [facility] BMI 2020-12-31 06:49:00 39.83 kg/m2 Universi ty of [place] [facility] Oxygen saturation in 2020-12-31 06:49:00 99 /min University of Arterial blood by [facility] Pulse oximetry Branch Systolic blood 2020-11-20 19:58:00 146 mm[Hg] Univer sity of pressure [place] [facility] Diastolic blood 2020-11-20 19:58:00 95 mm[Hg] Unive rsity of pressure [place] [facility] Heart rate 2020-11-20 19:58:00 98 /min Universi ty of [place] [facility] Body temperature 2020-11-20 19:58:00 37.17 [place] Univ ersity of [place] [facility] Respiratory rate 2020-11-20 19:58:00 17 /min Univ ersity of [place] [facility] Oxygen saturation in 2020-11-20 19:58:00 100 /min University of Arterial blood by [facility]ott Pulse oximetry Branch Body weight 2020-11-20 16:43:00 92.534 kg Universi ty of [place] [facility] BMI 2020-11-20 16:43:00 39.84 kg/m2 Universi ty of [place] [facility] Systolic blood 2020-11-20 19:58:00 146 mm[Hg] Univer sity of pressure [place] [facility] Diastolic blood 2020-11-20 19:58:00 95 mm[Hg] Unive rsity of pressure [place] [facility] Heart rate 2020-11-20 19:58:00 98 /min Universi ty of [place] [facility] Body temperature 2020-11-20 19:58:00 37.17 [place] Univ ersity of [place] [facility] Respiratory rate 2020-11-20 19:58:00 17 /min Univ ersity of [place] [facility] Oxygen saturation in 2020-11-20 19:58:00 100 /min University of Arterial blood by [facility] scott Pulse oximetry Branch Body weight 2020-11-20 16:43:00 92.534 kg Universi ty of [place] [facility] BMI 2020-11-20 16:43:00 39.84 kg/m2 Universi ty of [place] [facility] Body height 2020-09-26 23:49:00 152.4 cm Universi ty of [place] [facility] Body weight 2020-09-26 23:49:00 90.719 kg Universi ty of [place] [facility] BMI 2020-09-26 23:49:00 39.06 kg/m2 Universi ty of [place] [facility] Systolic blood 2020-09-26 23:45:00 103 mm[Hg] Univer sity of pressure [place] [facility] Diastolic blood 2020-09-26 23:45:00 62 mm[Hg] Unive rsity of pressure [place] [facility] Heart rate 2020-09-26 23:45:00 107 /min Universi ty of [place] [facility] Body temperature 2020-09-26 23:45:00 36.61 [place] Univ ersity of [place] [facility] Respiratory rate 2020-09-26 23:45:00 18 /min Univ ersity of [place] [facility] Oxygen saturation in 2020-09-26 23:45:00 97 /min University of Arterial blood by [place] [employer] [place]ott Pulse oximetry Branch Body height 2020-09-26 23:49:00 152.4 cm Universi ty of [place] [facility] Body weight 2020-09-26 23:49:00 90.719 kg Universi ty of [place] [facility] BMI 2020-09-26 23:49:00 39.06 kg/m2 Universi ty of [place] [facility] Systolic blood 2020-09-26 23:45:00 103 mm[Hg] Univer sity of pressure [place] [facility] Diastolic blood 2020-09-26 23:45:00 62 mm[Hg] Unive rsity of pressure [place] [facility] Heart rate 2020-09-26 23:45:00 107 /min Universi ty of [place] [facility] Body temperature 2020-09-26 23:45:00 36.61 [place] Univ ersity of [place] [facility] Respiratory rate 2020-09-26 23:45:00 18 /min Univ ersity of [place] [facility] Oxygen saturation in 2020-09-26 23:45:00 97 /min [facility] Arterial blood by [place] [employer] [facility] Pulse oximetry Branch Systolic blood 2020-07-17 14:00:00 112 mm[Hg] Univer sity of pressure [facility] Diastolic blood 2020-07-17 14:00:00 65 mm[Hg] Unive rsity of pressure [facility] Heart rate 2020-07-17 14:00:00 86 /min [facility] Respiratory rate 2020-07-17 14:00:00 20 /min Univ [facility] Oxygen saturation in 2020-07-17 14:00:00 100 /min [facility]ial blood by [place] [employer] [facility] Body temperature 2020-07-17 11:50:00 37.22 [place] [facility] Body weight 2020-07-17 11:50:00 86.183 kg [facility] BMI 2020-07-17 11:50:00 37.11 kg/m2 [facility] Systolic blood 2020-07-17 14:00:00 112 mm[Hg] Univer [facility]ity of pressure [facility] Diastolic blood 2020-07-17 14:00:00 65 mm[Hg] Unive rsity of pressure [facility] Heart rate 2020-07-17 14:00:00 86 /min [facility] Respiratory rate 2020-07-17 14:00:00 20 /min [facility] in 2020-07-17 14:00:00 100 /min [facility] Arterial blood by [facility] Pulse oximetry Branch Body temperature 2020-07-17 11:50:00 37.22 [place] [facility] Body weight 2020-07-17 11:50:00 86.183 kg [facility] BMI 2020-07-17 11:50:00 37.11 kg/m2 [facility] Systolic blood 2022-07-22 19:04:00 122 mm[Hg] Method [facility] pressure Diastolic blood 2022-07-22 19:04:00 72 mm[Hg] [facility] pressure Heart rate 2022-07-22 19:04:00 72 /min [facility] Respiratory rate 2022-07-22 19:04:00 18 /min [facility] Oxygen saturation in 2022-07-22 19:04:00 100 /min [facility] Arterial blood by Pulse oximetry Body temperature 2022-07-22 17:04:00 36.72 [place] [facility] Body height 2022-07-22 17:04:00 157.5 cm [facility] Body weight 2022-07-22 17:04:00 85.276 kg [facility] BMI 2022-07-22 17:04:00 34.39 kg/m2 [facility] Systolic blood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 code = See_Comment [Automated 693-8) message] The sy stem which generated this [...] RDW-SD (test code = 40.4 fL 39.0-49.9 77500-8) RDW-CV (test code = 13.0 % 12.0-15.5 788-0) PLT (test code = See_Comment H [Automated 777-3) message] The sy stem which generated this result transmitted reference range : 166 - 358 10*3/ ?L. The reference r shira was not used to interpret this result as normal/abnormal . MPV (test code = 9.5 fL 9.5-12.9 42448-5) NRBC/100 WBC (test See_Comment [Automat ed code = 6537483412) message] The system which generated this result transmitted reference range : 0.0 - 10.0 /100 WBCs. The refer ence range was not u sed to interpret th is result as normal/abnormal . NRBC x10^3 (test code <0.01 See_Comment [Auto mated = 4897630923) message] The s ystem which generated this result transmitted reference range : 10*3/?L. The reference range was not used to interpret this result as normal/abnormal . GRAN MAT (NEUT) % 83.0 % (test code = 770-8) IMM GRAN % (test code 0.70 % = 6935801725) LYMPH % (test code = 12.5 % 736-9) MONO % (test code = 3.7 % 5905-5) EOS % (test code = 0.0 % 713-8) BASO % (test code = 0.1 % 706-2) GRAN MAT x10^3(ANC) 8.41 10*3/uL 1.88-7.09 H (test code = 6059505200) IMM GRAN x10^3 (test 0.07 10*3/uL 0.00-0.06 H code = 6037829745) LYMPH x10^3 (test code 1.26 10*3/uL 1.32-3.29 L = 731-0) MONO x10^3 (test code 0.37 10*3/uL 0.33-0.92 = 742-7) EOS x10^3 (test code = <0.03 0.03-0.39 L 711-2) BASO x10^3 (test code <0.03 0.01-0.07 = 704-7) Lab Interpretation Abnormal (test code = 64995-5) [facility] [id number] 02:56:00 Test Item Value Reference Range Interpretation Comments POCT PREG (test code = 1605) negative On board controls acceptable with present C Line (test code = 3574) POCT PREG LOT # (test code = 3575) [id number] POCT PREG TEST DATE (test 02/25/2022 code = 3576) Lab Interpretation (test code = Normal 83348-2) [facility]LAMYDIA GC DNA BY [id number] 14:24:00 Test Item Value Reference Range Interpretation Comments C. TRACHOMATIS DNA BY Negative Negative PCR (test code = CHLAMTDNA) N. GONORRHOEAE DNA BY Negative Negative Perfor med At: ST PCR (test code = [facility] NGONORDNA) [address] [place], [place] [id number] Rodrigues MD Ph:[phone] - DUP AB/PEL/SC/KDH2431-35-56 14:12:00 [facility] : 1995 Sex: F Patient Name: FATMATA DEGROOT Unit No: [id number] EXAMS: CPT CODE: [id number] DUP AB/PEL/SC/LTD 52736 PELVIC ULTRASOUND, 08/01/2020: COMPARISON: CT pelvis dated [...] D/ (1412) t.SDR.AJ13 Orig Print D/T: S: 08/01/2020(1415) [facility] NAME: FATMATA DEGROOT Radiology Department PHYS: Winter Landaverde MD [address] : 1995 AGE: 24 SEX: F [place] [address] LOC: SaranERS PHONE #: [phone] EXAM DATE: 08/01/2020 STATUS: REG ER FAX #: [phone] RAD NO: Page 1 Signed Report Patient Name: FATMAAT DEGROOT Unit No: [id number] EXAMS: CPT CODE: [id number] DUP AB/PEL/SC/LTD 61613 (Continued) [facility] NAME: DEGROOT,FATMATA Radiology Department PHYS: Winter Landaverde MD [address] : 1995 AGE: 24 SEX: F [place], [place] [address]BVER NO: [id number] LOC: Saran.ERS PHONE #: [phone] EXAM DATE: 08/01/2020 STATUS: REG ER FAX #: [phone] RAD NO: Page 2 Signed Report- US TRANSVAGINAL W/[id number] 14:12:00 [facility] : 1995 Sex: F Patient Name: FATMATA DEGROOT Unit No: [id number] EXAMS: CPT CODE: [id number] US TRANSVAGINAL W/PELVIS 35655 PELVIC ULTRASOUND, 08/01/2020: COMPARISON: CT pelvis dated [...] No acute abnormality identified. Bilateral ovarian follicles. Electronically Signed by Joe Agudelo MD on 1at 1412 Reported and signed by: Joe Agudelo MD CC: Winter Mccollum MD; Austin Barrera Technolog ist: Alexandra Elder RDMS Probe: [id number] Trnscrbd D/ (1412) t.AJ13 Orig Print D/T: S: 08/01/2020 (1415) [facility] NAME: FATMATA DERGOOT Radiology Department PHYS: Winter Wilkins MD [address] : 1995 AGE: 24 SEX: F [place] [address] LOC: ShaylaERS PHONE #: [phone] EXAM DATE: 08/01/2020 STATUS: REG ER FAX #: [phone] RAD NO: Page 1 Signed Report Patient Name: FATMATA DEGROOT Unit No: [id number] EXAMS: CPT CODE: [id number] US TRANSVAGINAL W/PELVIS 17175 (Continued) [facility] NAME: FATMATA DEGROOT Radiology Department PHYS: Winter Landaverde MD [address] : 1995 AGE: 24 SEX: F [place] [address] LOC: Saran.ERS PHONE #: [phone] EXAM DATE: 08/01/2020 STATUS: REG ER FAX #: [phone] RAD NO: Page 2 Signed Report- US PELVIS [id number] 14:12:00 [facility] : 1995 Sex: F Patient Name: FATMATA DEGROOT Unit No: [id number] EXAMS: CPT CODE: [id number] US PELVIS COMPLETE 33305 PELVIC ULTRASOUND, 08/01/2020: COMPARISON: CT pelvis dated [...] Hospital NAME: FATMATA DEGROOT Radiology Department PHYS: ANUEL Winter Mccollum MD [address] : 1995 AGE: 24 SEX: F [place] [address] LOC: SaranERS PHONE #: [phone] EXAM DATE: 08/01/2020 STATUS: REG ER FAX #: [phone] RAD NO: Page 1 Signed Report Patient Name: FATMATA DEGROOT Unit No: [id number] EXAMS: CPT CODE: [id number] US PELVIS COMPLETE 32806 (Continued) [facility] NAME: FATMATA DEGROOT Radiology Department PHYS: Winter Landaverde MD [address] : 1995 AGE: 24 SEX: F [place] [address] LOC: Saran.ERS PHONE #: [phone] EXAM DATE: 08/01/2020 STATUS: REG ER FAX #: [phone] RAD NO: Page 2 Signed Report- CT ABD PELVIS W/O [id number] 10:58:00[facility] : 1995 Sex: F Patient Name: FATMATA DEGROOT Unit No: [id number] EXAMS: CPT CODE: [id number] CT ABD PELVIS W/O CONT 34142 CT ABDOMEN/CT STONE SURVEY WITHOUT CONTRAST, 08/01/2020 [...] mm right middle lobe pulmonary nodule. [facility] NAME: FATMATA DEGROOT Radiology Department PHYS: Winter Landaverde MD [address] : 1995 AGE: 24 SEX: F [place], [place] [address] LOC: SANDY PHONE #: [phone] EXAM DATE: 08/01/2020 STATUS: REG ER FAX #: [phone] RAD NO: Page 1 Signed Report 1 Patient Name: FATMATA DEGROOT Unit No: [id number] EXAMS: CPT CODE: [id number] CT ABD PELVIS W/O CONT 38203 (Continued) CT PELVIS WITHOUT CONTRAST: No opaque [...] 13.28 DLP: 653.43 Trnscrbd D/ (1058) tTARAR.AJ13 [facility] NAME: FATMATA DEGROOT Radiology Department PHYS: Winter Landaverde MD [address] : 1995 AGE: 24 SEX:F [place], [place] [address] LOC: ShaylaERS PHONE #: [phone] EXAM DATE: 08/01/2020TATUS: REG ER FAX #: [phone] RAD NO: Page 2 Signed Report 1 Patient Name: FATMATA DEGROOT Unit No: [id number] EXAMS: CPT CODE: [id number] CT ABD PELVIS W/O CONT 53998 (Continued) Orig Print D/T:S: 08/01/2020 (1101) [facility] NAME: FATMATA DEGROOT Radiology Department PHYS:Winter Landaverde MD [address] : 1995 AGE: 24 SEX: F [place], [place] [address] LOC: SANDY PHONE #: [phone] EXAM DATE: 08/01/2020 STATUS: REG ER FAX #: [phone] RAD NO: Page 3 Signed Report 1UA RFLX MICR CULT IF [id number] 10:04:00 Test Item Value Reference Range Interpretation [...] culture: Suprapubic PainSpecimen Description: CLEAN CATCHUR HCG [id number] 10:04:00 Test Item Value Reference Range Interpretation [...] Description: CLEAN CATCHUA RFLX MICR CULT IF [id number] 10:03:00 Test Item Value Reference Range Interpretation [...] culture: Suprapubic PainSpecimen Description: CLEAN CATCHUR HCG [id number] 10:03:00 Test Item Value Reference Range Interpretation Comments UR HCG QUAL (test code = HCGQLU) Indication for culture: Suprapubic PainSpecimen Description: CLEAN CATCH [id number] 14:39:00 Test Item Value Reference Range Interpretation Comments APPEARANCE (test code = Hazy Clear A 2726852208) COLOR (test code = Yellow Yellow 3825745163) PH (test code = 4.8-8.0 8572786129) SP GRAVITY (test code = 1.003-1.030 0389855298) GLU U QUAL (test code = Normal Normal 3289415064) BLOOD (test code = Negative Negative INTERFERE NCE FROM 7935832061) ASCORBIC ACID M AY CAUSE FALSE NEG ATIVE RESULT KETONES (test code = Negative Negative 6477636715) PROTEIN (test code = Negative Negative 2887-8) UROBILIN (test code = Normal Normal 0395985405) BILIRUBIN (test code = Negative Negative 0932004225) NITRITE (test code = Negative Negative 3478836777) LEUK SILVINO (test code = Negative Negative 1466280941) RBC/HPF (test code = See_Comment [Autom ated message] 2714936235) The system [employer] generated this result transmitted ref erence range: 0 - 3 HP F. The reference range was not used to int erpret this result as normal/abnormal . WBC/HPF (test code = <1 See_Comment [Autom ated message] 3399451155) The system [employer] generated this result transmitted ref erence range: 0 - 5 HP F. The reference range was not used to int erpret this result as normal/abnormal . BACTERIA (test code = Few Negative A 1603460596) MUCOUS (test code = Slight Negative LPF A 8510389348) SQ EPITH (test code = HPF 3927009279) Lab Interpretation (test Abnormal code = 19472-5) [facility] [id number] 14:08:00 Test Item Value Reference Range Interpretation Comments POCT PREG (test code = 1605) negative On board controls acceptable with present C Line (test code = 3574) POCT PREG LOT # (test code = 3575) [id number] POCT PREG TEST DATE (test 2022-02-25 code = 3576) Lab Interpretation (test code = Normal 68782-3) [facility] WITH [id number] 12:41:00 Test Item Value Reference Range Interpretation Comments WBC (test code = See_Comment [Automated 6090-2) message] The sy stem which generated this result transmitted reference range : 4.30 - 11.10 10*3/?L. The reference range was not used to interpret this result as normal/abnormal . RBC (test code = See_Comment [Automated 869-8) message] The sy stem which generated this [...] RDW-SD (test code = 40.8 fL 39-49.9 11206-7) RDW-CV (test code = 13.0 % 12-15.5 788-0) PLT (test code = See_Comment H [Automated 777-3) message] The sy stem which generated this result transmitted reference range : 166 - 358 10*3/ ?L. The reference r shira was not used to interpret this result as normal/abnormal . MPV (test code = 9.5 fL 9.5-12.9 78714-3) NRBC/100 WBC (test See_Comment [Automat ed code = 2673317702) message] The system which generated this result transmitted reference range : 0.0 - 10.0 /100 WBCs. The refer ence range was not u sed to interpret th is result as normal/abnormal . NRBC x10^3 (test code <0.01 See_Comment [Auto mated = 2093056869) message] The s ystem which generated this result transmitted reference range : 10*3/?L. The reference range was not used to interpret this result as normal/abnormal . GRAN MAT (NEUT) % 49.7 % (test code = 770-8) IMM GRAN % (test code 0.40 % = 2454921798) LYMPH % (test code = 37.6 % 736-9) MONO % (test code = 6.3 % 5905-5) EOS % (test code = 5.4 % 713-8) BASO % (test code = 0.6 % 706-2) GRAN MAT x10^3(ANC) 4.65 10*3/uL 1.88-7.09 (test code = 7036727271) IMM GRAN x10^3 (test 0.04 10*3/uL 0-0.06 code = 9055043309) LYMPH x10^3 (test code 3.52 10*3/uL 1.32-3.29 H = 731-0) MONO x10^3 (test code 0.59 10*3/uL 0.33-0.92 = 742-7) EOS x10^3 (test code = 0.51 10*3/uL 0.03-0.39 H 711-2) BASO x10^3 (test code 0.06 10*3/uL 0.01-0.07 = 704-7) Lab Interpretation Abnormal (test code = 76007-0) [facility] W/AUTO [id number] 07:27:00 Test Item Value Reference Range Interpretation [...] NORMAL code = PLTMR) AG HEPATITIS B [id number] 04:15:00 Test Item Value Reference Range Interpretation Comments AG HEPATITIS B SURFACE (test code NONREACTIVE NONREACTIVE = HBSAG) AB HEPATITIS C [id number] 04:15:00 Test Item Value Reference Range Interpretation Comments AB HEPATITIS C (test code = NONREACTIVE NONREACTIVE HCVAB) SIGNAL TO CUTOFF (test code = 0.13 <0.80 N CUTOFF) RUBELLA [id number] 04:15:00 Test Item Value Reference Range Interpretation Comments RUBELLA SCREEN 70.2 IUnit/ml Results >10. 0IUnits/ml (test code = are considered positive RUBSC) inaccordance wi th the CLSI guidelines and based on the [employer] S tandard for Anti-Rubell a serum as anindicator of immune status and a br eakpoint to detect mostseropositiv e persons. AB [id number] 04:15:00 Test Item Value Reference Range Interpretation Comments AB TREPONEMA (test code = TREPAB) NONREACTIVE NONREACTIVE AG HEPATITIS B [id number] 04:00:00 Test Item Value Reference Range Interpretation Comments AG HEPATITIS B SURFACE (test code NONREACTIVE NONREACTIVE = HBSAG) AB HEPATITIS C [id number] 04:00:00 Test Item Value Reference Range Interpretation Comments AB HEPATITIS C (test code = HCVAB) NONREACTIVE SIGNAL TO CUTOFF (test code = CUTOFF) <0.80 RUBELLA [id number] 04:00:00 Test Item Value Reference Range Interpretation Comments RUBELLA SCREEN 70.2 IUnit/ml Results >10. 0IUnits/ml (test code = are considered positive RUBSC) inaccordance wi th the CLSI guidelines and based on the [employer] S tandard for Anti-Rubell a serum as anindicator of immune status and a br eakpoint to detect mostseropositiv e persons. AB [id number] 04:00:00 Test Item Value Reference Range Interpretation Comments AB TREPONEMA (test code = TREPAB) NONREACTIVE NONREACTIVE CBC W/AUTO [id number] 00:36:00 Test Item Value Reference Range Interpretation [...]
[2022-09-11 04:49] LABS: Urine Blood Trace-lysed (Negative); Urine Glucose Negative (Negative); Urine Protein Negative (Negative); Urine Specific Gravity <=1.005 (1.005-1.030)
[2022-09-11 04:52] LABS: Urine Specific Gravity/Preg 1.005 (1.005-1.030)
[2022-09-11] MEDS ORDERED: methocarbamoL 750 MG TAB ONE (05:00)
[2022-09-11] MEDS ORDERED: PROMETHAZINE 25 MG TABLET ONE (05:00)
[2022-09-11] MEDS ORDERED: HYDROCODONE/APAP 5/325 MG TAB ONE (05:00)
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
[2022-09-11 06:26] VITALS: TEMP 99.1
[2022-09-11 06:28] VITALS: O2SAT 99
[2022-09-11 06:29] VITALS: BP 140/99
--- NOTE | 2022-09-11 19:57 | RAD REPORT ---
EXAM DESCRIPTION: RAD - Hand Left 3 View - 09/11/2022 5:30 am CLINICAL HISTORY: 26 years Female PAIN COMPARISON: None FINDINGS: 3 views of the left hand. Normal mineralization. No acute fracture or dislocation. Joint spaces are maintained. IMPRESSION: No acute bony finding. Electronically signed by: Sneha Bangura MD 09/11/2022 5:56 AM CDT Due to temporary technical issues with the PACS/Fluency reporting system, reports are being signed by the in house radiologists without review as a courtesy to insure prompt reporting. The interpreting radiologist is fully responsible for the content of the report.
--- NOTE | 2022-09-11 19:59 | RAD REPORT ---
EXAM DESCRIPTION: RAD - Forearm Left - 09/11/2022 5:30 am CLINICAL HISTORY: 26 years Female PAIN COMPARISON: None FINDINGS: 2 views of the left forearm. Normal mineralization. No acute fracture or dislocation. Joint spaces are maintained. IMPRESSION: No acute bony finding. Electronically signed by: Sneha Bangura MD 09/11/2022 5:57 AM CDT Due to temporary technical issues with the PACS/Fluency reporting system, reports are being signed by the in house radiologists without review as a courtesy to insure prompt reporting. The interpreting radiologist is fully responsible for the content of the report.
--- NOTE | 2022-09-11 20:00 | RAD REPORT ---
EXAM DESCRIPTION: RAD - Elbow Left 3 View - 09/11/2022 5:30 am CLINICAL HISTORY: 26 years Female PAIN COMPARISON: None FINDINGS: 2 views of the left forearm. Normal mineralization. No acute fracture or dislocation. Joint spaces are maintained. IMPRESSION: No acute bony finding. Electronically signed by: Sneha Bangura MD 09/11/2022 5:57 AM CDT Due to temporary technical issues with the PACS/Fluency reporting system, reports are being signed by the in house radiologists without review as a courtesy to insure prompt reporting. The interpreting radiologist is fully responsible for the content of the report.
== END 2022-09-11 06:22 | disposition home or self-care (01) ==
LOC: ER 03:44
DX: S63.8X2A Sprain of other part of left wrist and hand, initial encounter (principal); S53.402A Unspecified sprain of left elbow, initial encounter; S63.617A Unspecified sprain of left little finger, initial encounter; S50.02XA Contusion of left elbow, initial encounter; S60.222A Contusion of left hand, initial encounter
CPT/HCPCS: 81025; 81003; 73130; 73080; 73090; 99284; Q0169

== ENCOUNTER 2022-09-14 14:09 | Emergency (ER) | payer OTHER ==
--- OUTSIDE RECORDS SUMMARY | 2022-09-14 14:16 | XMS REPORT | Continuity of Care Document ---
:1995 Author Organization [facility] [place] [facility] t Address [address] [facility]. [address] [place] [address] Care Team Providers Name Role Phone Asked, No Pcp Primary Care Physician Unavailable Nash Schwab MD Attending Clinician MENDY LIRIANO Attending Clinician Unavailable Calvin AREVALO, Lorena Real Attending Clinician [phone] Mendy Liriano MD Attending Clinician IZA DENSON [...] Date Expiration Date S shobha GOODETTER FROM [id number] 2020 [facility] 00:00:00 [facility] [id number] 2019 00:00:00 Problems Condition Condition Condition Status Onset Resolution Last Treating Co mments Source Name Details Category Date Date Treatment Clinician Date Obesity Obesity Disease Active Univers (BMI (BMI 1-16 ity of 30-39.9) 30-39.9) 00:00: [place] [address] Medical Branch Urinary Urinary Disease Active Univers [...] 00 take with Medic al s Benadryl [facility] KETOROLA DRUG Active Other-Cmnt Univ ers C [...] 00 l of [place] codeine DA Active [place] 2018- [facility] [place] morphine DA Active U SWELLING 2018- [facility] 1-19 [facility] [place] codeine [place] nausea, 2018- [facility] headache -19 [facility] [place] tramadol [place] 2018- [facility] 2-31 [facility] [place] tramadol [place] Active [place] CHEST PAIN 2017- [facility] 2-31 [facility] 00:00: [...] [facility] Natural mother Menstrual problems [facility] Social History Social Habit Start Date Stop Date Quantity Comments Source Alcohol intake 2022-07-22 2022-07-22 Current drinker [facility] 00:00:00 00:00:00 of alcohol (finding) Exposure to 2022-05-18 2022-05-28 Not sure University of SARS-CoV-2 00:00:00 17:41:00 [facility] (event) [facility] Tobacco use and 2022-03-26 2022-03-[address] [facility] exposure 00:00:00 00:00:00 non-user Alcohol Comment 2016-04-28 2016-04-28 social, weekly [facility] 00:00:00 00:00:00 Sex Assigned At [birth year] [facility] 00:00:00 00:00:00 Smoking Status Start Date Stop Date Source Never smoked tobacco [facility] Medications Ordered Filled Start Stop Current [...] pain for up to 5 days. keTOROlac 0 2022- No 10mg Q6H Take 1 Metho di (TORadol) 07-22 tablet (10 st 10 mg 00:00: 05:59 mg total) Hospit a tablet 00 :00 by mouth l every 6 (six) hours as needed for moderate pain for up to 5 days. phenazopyri 2022-2022- Yes 200mg Q.[id number] Take 1 Methodi dine 07-[id number] (Pyridium) 00:00: 05:59 3D (200 mg Hos radha 200 MG 00 :00 total) by l tablet mouth 3 (three) times a day as needed for bladder spasms for up to 3 days. phenazopyri 2022-0 2022- No 200mg Q.[id number] Take 1 Methodi dine 07-[id number] (Pyridium) 00:00: 05:59 3D (200 mg Hos radha 200 MG 00 :00 total) by l tablet mouth 3 (three) times a day as needed for bladder spasms for up to 3 days. phenazopyri 2022-0 2022- No 200mg Q.[id number] Take 1 Methodi dine 07-[id number] (Pyridium) 00:00: 05:59 3D (200 mg Hos radha 200 MG 00 :00 total) by l tablet mouth 3 (three) times a day as needed for bladder spasms for up to 3 days. phenazopyri 2022-0 2022- No 200mg Q.[id number] Take 1 Methodi dine 07-[id number] (Pyridium) 00:00: 05:59 3D (200 mg Hos radha 200 MG 00 :00 total) by l tablet mouth 3 (three) times a day as needed for bladder spasms for up to 3 days. phenazopyri 2022- No 200mg Q.[id number] Take 1 Methodi dine 07-[id number] (Pyridium) 00:00: 05:59 3D (200 mg Hos radha 200 MG 00 :00 total) by l tablet mouth 3 (three) times a day as needed for bladder spasms for up to 3 days. diphenhydrA 2021-06 No 25mg 25 mg, Uni vers MINE 07-30 Oral, ity of (BENADRYL) 04:30: 04:21 ONCE, 1 [place] as tablet 25 00 :00 dose, On Medica l mg [facility] 05/28/22 at 2230, RODRICK FENTanyl PF 2021-06 No 75ug 75 mcg, Un [place] (SUBLIMAZE 07-30 Slow IV ity o f (PF)) 04:30: 03:51 Push, [place] injection 00 :00 ONCE, 1 Medical 75 mcg dose, On [facility] 05/28/22 at 2230, Routine doxycycline 2021-06 No 100mg 100 mg, U nivers hyclate 07-30 Oral, ity of (Vibramycin 03:45: 03:51 [place] capsule 00 :00 dose, On Medica l 100 mg [facility] 05/28/22 at 2145, RODRICK
Re ason for Anti-Infec tive: Documented Infection< br>Documen jd Infection Site: Pelvic
Duration of Therapy: Other (see Comments) morpHINE (4 2021-06 No 4mg 4 mg, Slow Univers mg/mL) 07-30 IV Push, ity of injection 4 02:30: 02:47 ONCE, 1 [place] mg 00 :00 dose, On Medical [facility] 05/28/22 at 2030, STAT ketorolac 2021-06 No 15mg 15 mg, Unive rs (TORADOL) 07-30 Slow IV ity of injection 01:45: 01:01 Push, [place] 15 mg 00 :00 ONCE, 1 Medical dose, On Branch [facility] 05/28/22 at 1945, Routine iopamidol 2021-06 No [id number] 75mL 75 mL, Univers (ISOVUE 07-30 Intravenou ity o f 370-500 mL) 01:15: 01:15 s, ONCE, 1 [place] injection 00 :00 dose, On Medica l 75 mL Elicia [facility] 05/28/22 at 1915, Routine FENTanyl PF 2021-06 No 50ug 50 mcg, Un caorlann (SUBLIMAZE 07-30 Slow IV ity o f (PF)) 01:00: 00:11 Push, [place] injection 00 :00 ONCE, 1 Medical 50 mcg dose, On Branch [facility] 05/28/22 at 1900, Routine ondansetron 2021-06- No 4mg 4 mg, Slow Univers (ZOFRAN 07-30 IV Push, ity of (PF)) 00:15: 00:11 ONCE, 1 [place] injection 4 00 :00 dose, On Medi [place] mg [facility] 05/28/22 at 1815, RODRICK metroNIDAZO 2021-06 Yes [id number] 500mg Take 1 Univers LE 500 mg 07-29 tablet by ity o f tablet 00:00: mouth in [place] 00 the Medical morning Branch and 1 tablet in the evening. doxycycline 2021-06- No [id number] 100mg Take 1 Univers hyclate 100 07-29 capsule by i ty of mg capsule 00:00: 05:59 mouth in [place] 00 :00 the Medical morning Branch and 1 capsule in the evening. Do all this for 10 days. HYDROcodone 2021-06- No [id number] 1{tbl} Take 1 U nivers -acetaminop 07-29 tablet by it y chance clark (NORCO) [...] as needed for nausea or vomiting. ALPRAZolam 0 Yes alprazolam U nivers 0.5 mg 02-28 0.5 mg ity of tablet 12:44: tablet [address] Branch bupropion 0 Yes bupropion Uni vers HBr 02-28 HBr ity of (APLENZIN 12:44: [place] ORAL) 02 Medical Branch FLUoxetine Yes fluoxetine U nivers 20 mg 02-28 20 mg ity of capsule 12:44: capsule [place] [facility] famotidine No 20mg 20 [...] 0.5 mg ity of tablet 23:48: tablet [place] [facility] bupropion Yes bupropion Uni vers HBr 02-26 HBr ity of (APLENZIN 23:48: [place] ORAL) [facility] FLUoxetine Yes fluoxetine U nivers 20 mg 02-26 20 mg ity of capsule 23:48: capsule [address] ciprofloxac 2021- No 500mg Q.5D Take [...] a day for 7 days. ciprofloxac 2021-0 2- No 500mg Q.5D Take 1 Me thodi in (CIPRO) 02-[address] 500 MG 00:00: 04:59 (500 mg Hospita tablet 00 :00 total) by l mouth 2 (two) times a day for 7 days. phenazopyri 2021-0 2021- No 200mg Q.[id number] Take 1 Methodi dine 02-[id number] (PYRIDIUM) 00:00: 04:59 3D (200 mg Hos radha 200 MG 00 :00 total) by l tablet mouth 3 (three) times a day for 3 days. phenazopyri 2021-0 2021- No 200mg Q.[id number] Take 1 Methodi dine 02-[id number] (PYRIDIUM) 00:00: 04:59 3D (200 mg Hos radha 200 MG 00 :00 total) by l tablet mouth 3 (three) times a day for 3 days. phenazopyri 2021-0 2021- No 200mg Q.[id number] Take 1 Methodi dine 02-[id number] (PYRIDIUM) 00:00: 04:59 3D (200 mg Hos radha 200 MG 00 :00 total) by l tablet mouth 3 (three) times a day for 3 days. phenazopyri 2021-0 2022- No 200mg Q.[id number] Take 1 Methodi dine 02-[id number] (PYRIDIUM) 00:00: 04:59 3D (200 mg Hos radha 200 MG 00 :00 total) by l tablet mouth 3 (three) times a day for 3 days. phenazopyri 2021-0 2021- No 200mg Q.[id number] Take 1 Methodi dine 02-[id number] (PYRIDIUM) 00:00: 04:59 3D (200 mg Hos radha 200 MG 00 :00 total) by l tablet mouth 3 (three) times a day for 3 days. phenazopyri 2021-0 2021- No 200mg Q.[id number] Take 1 Methodi dine 02-[id number] (PYRIDIUM) 00:00: 04:59 3D (200 mg Hos radha 200 MG 00 :00 total) by l tablet mouth 3 (three) times a day for 3 days. phenazopyri 2021-0 2021- No 200mg Q.[id number] Take 1 Methodi dine 02-[id number] (PYRIDIUM) 00:00: 04:59 3D (200 mg Hos radha 200 MG 00 :00 total) by l tablet mouth 3 (three) times a day for 3 days. phenazopyri 2021-0 2021- No 200mg Q.[id number] Take 1 Methodi dine 02-[id number] (PYRIDIUM) 00:00: 04:59 3D (200 mg Hos radha 200 MG 00 :00 total) by l tablet mouth 3 (three) times a day for 3 days. phenazopyri 2021-0 2021- No 200mg Q.[id number] Take 1 Methodi dine 02-[id number] (PYRIDIUM) 00:00: 04:59 3D (200 mg Hos radha 200 MG 00 :00 total) by l tablet mouth 3 (three) times a day for 3 days. phenazopyri 2021-0 2021- No 200mg Q.[id number] Take 1 Methodi dine 02-[id number] (PYRIDIUM) 00:00: 04:59 3D (200 mg Hos radha 200 MG 00 :00 total) by l tablet mouth 3 (three) times a day for 3 days. phenazopyri 202-0 202- No 200mg Q.[id number] Take 1 Methodi dine 02-[id number] (PYRIDIUM) 00:00: 04:59 3D (200 mg Hos radha 200 MG 00 :00 total) by l tablet mouth 3 (three) times a day for 3 days. phenazopyri 2021- No 200mg Q.[id number] Take 1 Methodi dine 02-[id number] (PYRIDIUM) 00:00: 04:59 3D (200 mg Hos radha 200 MG 00 :00 total) by l tablet mouth 3 (three) times a day for 3 days. phenazopyri 2021- No 200mg Q.[id number] Take 1 Methodi dine 02-[id number] (PYRIDIUM) 00:00: 04:59 3D (200 mg Hos radha 200 MG 00 :00 total) by l tablet mouth 3 (three) times a day for 3 days. ondansetron 2020- No 4mg 4 mg, Univ ers (ZOFRAN-ODT 12-31 Oral, ity of ) 09:15: 08:20 ONCE, 1 [place] disintegrat 00 :00 dose, Tue Med ical [...] 1 [place] as mg 00 :00 dose, [facility] Medical 12/31/20 at Branch 0300, RODRICK methocarbam 2020- No 1000mg 1,000 mg, Univers oL 12-31 Oral, ONCE ity of (ROBAXIN) 08:00: 07:17 NOW, 1 [place] tablet 00 :00 dose, [facility] Medical 1,000 mg 12/31/20 at Branch 0300, RODRICK ibuprofen Yes [id number] 800mg Take 1 U nivers 800 mg 7-06 tablet by ity of tablet 00:00: mouth [place] 00 every 8 Medical (eight) Branch hours as needed for Pain (scale 4-6). cyclobenzap Yes [id number] 10mg Take 1 Univers rine 10 mg 7-06 tablet by ity of tablet 00:00: mouth 3 [place] 00 (three) Medical times Branch daily as needed for Muscle Spasms. ibuprofen 2021- No [id number] 800mg Take 1 Univers 800 mg 7- 09- tablet by ity of tablet 00:00: 00:00 mouth [place] 00 :00 every 8 Medical (eight) Branch hours as needed for Pain (scale 4-6). cyclobenzap 2021- No [id number] 10mg Take 1 Univers rine 10 mg 7- 09- tablet by ity of [...] 1,000 mL 00 :00 IV Medical Infusion, [facility] ONCE, 1 dose, [facility] 11/20/20 at 1530, STAT metoclopram 2020- No 10mg 10 mg, Uni vers dio HCl 11-20- Slow IV ity of (REGLAN) 20:15: 19:18 Push, [place] injection 00 :00 ONCE, 1 Medical 10 mg dose, [facility] 11/20/20 at 1515, RODRICK ketorolac 2020- No 30mg 30 mg, Unive rs (TORADOL) 11-20 Slow IV ity of injection 20:15: 19:18 Push, [place] 30 mg 00 :00 ONCE, 1 Medical dose, [facility] 11/20/20 at 1515, [facility] : JOHN RIVERA diphenhydrA 2020- No 25mg 25 mg, Uni vers MINE 11-20 05-26 Slow IV ity of (BENADRYL) 20:15: 20:15 Push, [place] injection 00 :00 ONCE, 1 Medical 25 mg dose, Wed Branch 11/20/20 at 1515, STAT butalbital- 0 Yes 1{tbl} 1 tablet, Univers acetaminoph 11-20 Oral, ity of en-caff 18:12: Q4HPRN, [place] (ESGIC) 27 Starting Medical 50-325-40 Wed Branch mg tablet 1 11/20/20 at tablet 1312, Until Discontinu ed, Routine, zofran ketorolac 0 Yes [id number] 10mg Take 1 Un carolann 10 mg 5-26 tablet by ity of tablet 00:00: mouth [place] 00 every 6 Medical (six) Branch hours as needed for Pain (scale 4-6). cyclobenzap 0 Yes [id number] 10mg Take 1 Univers rine 10 mg 5-26 tablet by ity of tablet 00:00: mouth 3 [place] 00 (three) Medical times Branch daily. ketorolac 0 Yes [id number] 10mg Take 1 Un carolann 10 mg 5-26 tablet by ity of tablet 00:00: mouth [place] 00 every 6 Medical (six) Branch hours as needed for Pain (scale 4-6). cyclobenzap 2020-0 Yes [id number] 10mg Take 1 Univers rine 10 mg 5-26 tablet by ity of tablet 00:00: mouth 3 [place] 00 (three) Medical times Branch daily. ketorolac 2020-0 2021- No [id number] 10mg Take 1 U nivers 10 mg 5-26 - tablet by ity of tablet 00:00: 00:00 mouth [place] 00 :00 every 6 Medical (six) Branch hours as needed for Pain (scale 4-6). cyclobenzap 2020-0 2021- No [id number] 10mg Take 1 Univers rine 10 mg 5-26 - tablet by ity of tablet 00:00: 00:00 mouth 3 [place] 00 :00 (three) Medical times Branch daily. ketorolac No [...] 09/26/20 Branch at 2245, RODRICK ondansetron Yes [id number] 4mg Take 1 Univers (ZOFRAN 4-01 tablet by ity of ODT) 4 mg 00:00: mouth [place] disintegrat 00 every 8 Medic al ing tablet (eight) Branch hours as needed for Nausea and Vomiting (N/V). ondansetron Yes [id number] 4mg Take 1 Univers (ZOFRAN 4-01 tablet by ity of ODT) 4 mg 00:00: mouth [place] disintegrat 00 every 8 Medic al ing tablet (eight) Branch hours as needed for Nausea and Vomiting (N/V). ondansetron Yes [id number] 4mg Take 1 Univers (ZOFRAN 4-01 tablet by ity of ODT) 4 mg 00:00: mouth [place] disintegrat 00 every 8 Medic al ing tablet (eight) Branch hours as needed for Nausea and Vomiting (N/V). ondansetron 2021- No [id number] 4mg Take 1 Univers (ZOFRAN 4-01 09-01 tablet by ity of ODT) 4 mg 00:00: 00:00 mouth [place] disintegrat 00 :00 every 8 Medic al ing tablet (eight) Branch hours as needed for Nausea and Vomiting (N/V). proMETHazin Yes [id number] 25mg Take 1 Univers e 25 mg 2-09 tablet by ity of tablet 00:00: mouth [place] 00 every 6 Medical (six) Branch hours as needed for Nausea and Vomiting (N/V). proMETHazin Yes [id number] 25mg Take 1 Univers e 25 mg 2-09 tablet by ity of tablet 00:00: mouth [place] 00 every 6 Medical (six) Branch hours as needed for Nausea and Vomiting (N/V). proMETHazin Yes [id number] 25mg Take 1 Univers e 25 mg 2-09 tablet by ity of tablet 00:00: mouth [place] 00 every 6 Medical (six) Branch hours as needed for Nausea and Vomiting (N/V). proMETHazin 2021- No [id number] 25mg Take 1 Univers e 25 mg [...] Wed Branch 07/17/20 at 0730, [facility]ODRICK
[facility] Rest[facility] medication : LEONEL WILD E NaCl 0.9% 2020- No 1000mL [...] mg iron-1 mg -250 mg combo pack 2- No 1{packe Take 1 Uni vers vit 5-29 09-01 t} Packet by ity of 33-iron-fol 00:00: 00:00 [place] ic-dha 00 :00 daily. Medical (SELECT-OB Branch + DHA) 29 mg iron-1 mg -250 mg combo pack Immunizations Ordered Filled Immunization Date Status Comments Sourc e Immunization Name Name Td 2011-06-28 Completed University of 00:00:00 [place] [facility] Td 2011-06-28 Completed University of 00:00:00 [place] [facility] Td 2011-06-28 Completed University of 00:00:00 [place] [facility] Td 2011-06-28 Completed University of 00:00:00 [place] [facility] Td 2011-06-28 Completed University of 00:00:00 [place] [facility] Td 2011-06-28 Completed University of 00:00:00 [facility] Vital Signs Vital Name Observation Time Observation Value Comments Source Systolic blood 2022-05-29 04:19:00 123 mm[Hg] Univer sity of pressure [facility] Diastolic blood 2022-05-29 04:19:00 87 mm[Hg] Unive rsity of [facility] Heart rate 2022-05-29 04:19:00 93 /min Universi ty [facility] Respiratory rate 2022-05-29 04:19:00 18 /min [facility] in 2022-05-29 04:19:00 97 /min University of Arterial blood by iZot[employer] Pulse oximetry Branch Body temperature 2022-05-28 23:42:00 37.11 [place] [facility] Body height 2022-05-28 23:42:00 152.4 cm Universi ty [facility] Systolic blood 2022-02-27 05:31:00 130 mm[Hg] Univer sity of pressure [facility] Branch Diastolic blood 2022-02-27 05:31:00 87 mm[Hg] Unive rsity of pressure [facility] Branch Heart rate 2022-02-27 05:31:00 98 /min Universi ty [facility] Branch Respiratory rate 2022-02-27 05:31:00 18 /min [facility] Oxygen saturation in 2022-02-27 05:31:00 99 /min University of Arterial blood by iZot[employer] Pulse oximetry Branch Body height 2022-02-27 03:38:00 152.4 cm Universi ty [facility] Body weight 2022-02-27 03:38:00 82.101 kg Universi ty of [place] [facility] BMI 2022-02-27 03:38:00 35.35 kg/m2 Universi ty of [place] [facility] Body temperature 2022-02-27 03:36:00 36.28 [place] Univ ersity of [facility] Branch Systolic blood 2020-12-31 06:49:00 125 mm[Hg] Univer sity of pressure [place] [facility] Diastolic blood 2020-12-31 06:49:00 93 mm[Hg] Unive rsity of pressure [facility] Branch Heart rate 2020-12-31 06:49:00 104 /min Universi ty of [facility] Body temperature 2020-12-31 06:49:00 36.83 [place] Univ ersity of [facility] Branch Respiratory rate 2020-12-31 06:49:00 15 /min Univ ersity of [facility] Body height 2020-12-31 06:49:00 152.4 cm Universi ty of [place] [facility] Body weight 2020-12-31 06:49:00 92.5 kg Universi ty of [place] [facility] BMI 2020-12-31 06:49:00 39.83 kg/m2 Universi ty of [place] [facility] Oxygen saturation in 2020-12-31 06:49:00 99 /min University of Arterial blood by [facility] Pulse oximetry Branch Systolic blood 2020-12-31 06:49:00 125 mm[Hg] Univer sity of pressure [place] [facility] Diastolic blood 2020-12-31 06:49:00 93 mm[Hg] Unive rsity of pressure [facility] Heart rate 2020-12-31 06:49:00 104 /min Universi ty of [place] [facility] Body temperature 2020-12-31 06:49:00 36.83 [place] Univ ersity of [facility] Branch Respiratory rate 2020-12-31 06:49:00 15 /min Univ ersity of [facility] Branch Body height 2020-12-31 06:49:00 152.4 cm Universi ty of [place] [facility] Body weight 2020-12-31 06:49:00 92.5 kg Universi ty of [place] [facility] BMI 2020-12-31 06:49:00 39.83 kg/m2 Universi ty of [facility] Branch Oxygen saturation in 2020-12-31 06:49:00 99 /min University of Arterial blood by [facility] Pulse oximetry Branch Systolic blood 2020-11-20 19:58:00 146 mm[Hg] Univer sity of pressure [place] [facility] Diastolic blood 2020-11-20 19:58:00 95 mm[Hg] Unive rsity of pressure [place] [facility] Heart rate 2020-11-20 19:58:00 98 /min Universi ty of [place] [facility] Body temperature 2020-11-20 19:58:00 37.17 [place] Univ ersity of [place] [facility] Respiratory rate 2020-11-20 19:58:00 17 /min Univ ersity of [place] [facility] Oxygen saturation in 2020-11-20 19:58:00 100 /min University of Arterial blood by [facility] Pulse oximetry Branch Body weight 2020-11-20 16:43:00 92.534 kg Universi ty of [place] [facility] BMI 2020-11-20 16:43:00 39.84 kg/m2 Universi ty of [place] [facility] Systolic blood 2020-11-20 19:58:00 146 mm[Hg] Univer sity of pressure [place] [facility] Diastolic blood 2020-11-20 19:58:00 95 mm[Hg] Unive rsity of pressure [place] [facility] Heart rate 2020-11-20 19:58:00 98 /min Universi ty of [place] [facility] Body temperature 2020-11-20 19:58:00 37.17 [place] Univ ersity of [place] [facility] Respiratory rate 2020-11-20 19:58:00 17 /min Univ ersity of [place] [facility] Oxygen saturation in 2020-11-20 19:58:00 100 /min University of Arterial blood by [facility] Pulse oximetry Branch Body weight 2020-11-20 16:43:00 92.534 kg Universi ty of [place] [facility] BMI 2020-11-20 16:43:00 39.84 kg/m2 Universi ty of [place] [facility] Body height 2020-09-26 23:49:00 152.4 cm Universi ty of [place] [facility] Body weight 2020-09-26 23:49:00 90.719 kg Universi ty of [place] [facility] BMI 2020-09-26 23:49:00 39.06 kg/m2 Universi ty of [place] [facility] Systolic blood 2020-09-26 23:45:00 103 mm[Hg] Univer sity of pressure [place] [facility] Diastolic blood 2020-09-26 23:45:00 62 mm[Hg] Unive rsity of pressure [place] [facility] Heart rate 2020-09-26 23:45:00 107 /min Universi ty of [place] [facility] Body temperature 2020-09-26 23:45:00 36.61 [place] Univ ersity of [place] [facility] Respiratory rate 2020-09-26 23:45:00 18 /min Univ ersity of [place] [facility] Oxygen saturation in 2020-09-26 23:45:00 97 /min University of Arterial blood by [employer] Pulse oximetry Branch Body height 2020-09-26 23:49:00 152.4 cm Universi ty of [place] [facility] Body weight 2020-09-26 23:49:00 90.719 kg Universi ty of [place] [facility] BMI 2020-09-26 23:49:00 39.06 kg/m2 Universi ty of [place] [facility] Systolic blood 2020-09-26 23:45:00 103 mm[Hg] Univer sity of pressure [place] [facility] Diastolic blood 2020-09-26 23:45:00 62 mm[Hg] Unive rsity of pressure [place] [facility] Heart rate 2020-09-26 23:45:00 107 /min Universi ty of [place] [facility] Body temperature 2020-09-26 23:45:00 36.61 [place] Univ ersity of [place] [facility] Respiratory rate 2020-09-26 23:45:00 18 /min Univ ersity of [place] [facility] Oxygen saturation in 2020-09-26 23:45:00 97 /min University of Arterial blood by [employer] Pulse oximetry Branch Systolic blood 2020-07-17 14:00:00 112 mm[Hg] Univer sity of pressure [place] [facility] Diastolic blood 2020-07-17 14:00:00 65 mm[Hg] Unive rsity of pressure [place] [facility] Heart rate 2020-07-17 14:00:00 86 /min Universi ty of [place] [facility] Respiratory rate 2020-07-17 14:00:00 20 /min Univ ersity of [place] [facility] Oxygen saturation in 2020-07-17 14:00:00 100 /min University of Arterial blood by i[employer] Pulse oximetry Branch Body temperature 2020-07-17 11:50:00 37.22 [place] [facility] Body weight 2020-07-17 11:50:00 86.183 kg [facility] BMI 2020-07-17 11:50:00 37.11 kg/m2 [facility] Systolic blood 2020-07-17 14:00:00 112 mm[Hg] Univer sity of pressure [facility] Diastolic blood 2020-07-17 14:00:00 65 mm[Hg] Unive rsity of pressure [facility] Heart rate 2020-07-17 14:00:00 86 /min [facility] Respiratory rate 2020-07-17 14:00:00 20 /min [facility] Oxygen saturation in 2020-07-17 14:00:00 100 /min University of Arterial blood by [facility] Pulse oximetry [place] Body temperature 2020-07-17 11:50:00 37.22 [place] [facility] Body weight 2020-07-17 11:50:00 86.183 kg [facility] BMI 2020-07-17 11:50:00 37.11 kg/m2 [facility] Systolic blood 2022-07-22 19:04:00 122 mm[Hg] Method [facility]3] pressure Diastolic blood 2022-07-22 19:04:00 72 mm[Hg] [facility] pressure Heart rate 2022-07-22 19:04:00 72 /min [facility] Respiratory rate 2022-07-22 19:04:00 18 /min [facility] Oxygen saturation in 2022-07-22 19:04:00 100 /min [facility] Arterial blood by Pulse oximetry Body temperature 2022-07-22 17:04:00 36.72 [place] [facility] Body height 2022-07-22 17:04:00 157.5 cm [facility] Body weight 2022-07-22 17:04:00 85.276 kg [facility] BMI 2022-07-22 17:04:00 34.39 kg/m2 [facility] Systolic blood 2022-03-26 13:44:00 139 mm[Hg] Method [facility] [facility] pressure Diastolic blood 2022-03-26 13:44:00 83 mm[Hg] [facility] pressure Heart rate 2022-03-26 13:44:00 101 /min [facility] Respiratory rate 2022-03-26 13:44:00 18 /min [facility] Oxygen saturation in 2022-03-26 13:44:00 100 /min [facility] Arterial blood by Pulse oximetry Body temperature 2022-03-26 12:32:00 36.72 [place] [facility] Body height 2022-03-26 12:32:00 157.5 cm [facility] Body weight 2022-03-26 12:32:00 85.276 kg [facility] BMI 2022-03-26 12:32:00 34.39 kg/m2 [facility] Procedures Procedure Date / Time Performing Clinician Source Performed URINE CULTURE 2022-07-22 19:12:00 [facility]OL[facility] 2022-07-22 17:33:00 Zaheer [facility] PANEL ESTIMATED GFR 2022-07-22 17:33:00 Zaheer, [facility] RE[facility] STONE PROTOCOL 2022-07-22 17:13:55 [facility] CBC WITH PLATELET AND 2022-07-22 16:33:00 Zaheer [facility] DIFFERENTIAL COMPREHENSIVE METABOLIC 2022-07-22 16:33:00 Zaheer [facility] PANEL ESTIMATED GFR 2022-07-22 16:33:00 Zaheer, [facility] URINALYSIS SCREEN AND 2022-07-22 16:22:00 Zaheer [facility] MICROSCOPY, WITH REFLEX TO CULTURE US PELVIS COMPLETE WITH 2022-05-29 02:07:00 Lorena Simpson [facility] TRANSVAGINAL [facility] CT ABDOMEN PELVIS W 2022-05-29 00:28:13 Lorena Simpson [facility] CONTRAST [facility] COMP. METABOLIC PANEL 2022-05-29 00:07:00 Lorena Simpson [facility] ([id number]) [facility] CBC WITH DIFF 2022-05-29 00:07:00 Lorena Simpson [facility] URINALYSIS 2022-05-28 23:56:00 Lorena Simpson [facility] POCT TEST 2022-05-28 23:53:00 Lorena Simpson [facility] CONSENT/REFUSAL FOR 2022-05-28 23:40:29 Doctor Unassigned, No Un [facility] DIAGNOSIS AND TREATMENT Name Medical Branch URINALYSIS 2022-03-26 13:06:00 [facility] HCG QUALITATIVE, URINE 2022-03-26 13:06:00 [facility] SCREEN URINALYSIS 2022-03-26 13:06:00 [facility] HCG QUALITATIVE, URINE 2022-03-26 13:06:00 [facility] SCREEN CBC WITH PLATELET AND 2022-03-26 12:46:00 [facility] DIFFERENTIAL COMPREHENSIVE METABOLIC 2022-03-26 12:46:00 [facility] PANEL ESTIMATED GFR 2022-03-26 12:46:00 [facility] CBC WITH PLATELET AND 2022-03-26 12:46:00 [facility] DIFFERENTIAL POCT TEST 2022-02-27 04:56:00 Afsaneh Car [facility] LIPASE 2022-02-27 04:04:00 Afsaneh Car [facility] TROPONIN I 2022-02-27 04:04:00 Afsaneh Car [facility] THYROID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 Normal 11424-4) [facility] CenterCHLAMYDIA GC DNA BY [id number] 14:24:00 Test Item Value Reference Range Interpretation Comments C. TRACHOMATIS DNA BY Negative Negative PCR (test code = CHLAMTDNA) N. GONORRHOEAE DNA BY Negative Negative Perfor med At: ST PCR (test code = [facility] NGONORDNA) Glzijlc8426 [facility], [place] [id number] Rodrigues MD Ph:[phone] - DUP AB/PEL/SC/[id number] 14:12:00 [facility] 1995 Sex: F Patient Name: FATMATA DUNCAN Unit No: [id number] EXAMS: CPT CODE: [id number] DUP AB/PEL/SC/LTD 00336 PELVIC ULTRASOUND, 08/01/2020: COMPARISON: CT pelvis dated [...] t.JESSICAR.AJ13 Orig Print D/T: S: 08/01/2020(1415) [facility] NAME: FATMATA DUNCAN Radiology Department PHYS: CANAL.02 - Winter Mccollum MD [address] : 1995 AGE: 24 SEX: F [place], [place] [address] : [place].ERS PHONE #: [phone] EXAM DATE: 08/01/2020 STATUS: REG ER FAX #: [phone] RAD NO: Page 1 Signed Report Patient Name: FATMATA DUNCAN Unit No: [id number] EXAMS: CPT CODE: [id number] DUPAB/PEL/SC/LTD 03546 (Continued) [facility] NAME: FATMATA DUNCAN Radiology Department PHYS: ELLISJeffrey Valles Winter Mccollum MD [address] : 1995 AGE: 24 SEX: F [place], [place] [address] LOC: ShaylaERS PHONE #: [phone] EXAM DATE: 08/01/2020 STATUS: REG ER FAX #: [phone] RAD NO: Page 2 Signed Report- US TRANSVAGINAL W/[id number] 14:12:00[facility] : 1995 Sex: F Patient Name: FATMATA DUNCAN Unit No: [id number] EXAMS: CPT CODE: [id number] US TRANSVAGINAL W/PELVIS 43274 PELVIC ULTRASOUND, 08/01/2020: COMPARISON: CT pelvis dated [...] Mccollum MD; Wild Barrera Technologist: Alexandra Elder [facility] Probe: 758057NZ3 Trnscrbd D/ (1412) t.JESSICAR.AJ13 Orig Print D/T: S: 08/01/2020 (1415) [facility] [place] [facility] NAME: FATMATA DUNCAN Radiology Department PHYS: ELLIS. Winter Mccollum MD [address] : 1995 AGE: 24 SEX: F [place] [address] LOC: ShaylaERS PHONE #: [phone] EXAM DATE: 08/01/2020 STATUS: REG ER FAX #: [phone] RAD NO: Page 1 Signed Report Patient Name: FATMATA DUNCAN Unit No: [id number] EXAMS: CPT CODE: [id number] US TRANSVAGINAL W/PELVIS 32239 (Continued) [facility] NAME: DUNCANLYUBOV PHILLIPRINA Radiology Department PHYS: ELLIS. Winter Wilkins MD [address] : 1995 AGE: 24 SEX: F [place], [place] [address] LOC: ShaylaERS PHONE #: [phone] EXAM DATE: 08/01/19 STATUS: REG ER FAX #: [phone] RAD NO: Page 2 Signed Report- US PELVIS [id number] 14:12:00 [facility] 1995 Sex: F Patient Name: FATMATA DUNCAN Unit No: [id number] EXAMS: CPT CODE: [id number] US PELVIS COMPLETE 69567 PELVIC ULTRASOUND, 08/01/2020: COMPARISON: CT pelvis dated [...] (1412) LuisR.AJ13 Orig Print D/T: S: 08/01/2020 (7305) [facility] NAME: FATMATA DUNCAN Radiology Department PHYS: ELLIS.Winter Ortiz MD [address] : 1995 AGE: 24 SEX: F [place] [address] LOC: ShaylaERS PHONE #: [phone] EXAM DATE: 08/01/2020 STATUS: REG ER FAX #: [phone] RAD NO: Page 1 Signed Report Patient Name: FATMATA DUNCAN Unit No: [id number] EXAMS: CPT CODE: [id number] US PELVIS COMPLETE 48339 (Continued) [facility] NAME: FATMATA DUNCAN Radiology Department PHYS: Winter Landaverde MD [address] : 1995 AGE: 24 SEX: F [place] [address] LOC: ShaylaERS PHONE #: [phone] EXAM DATE: 08/01/2020 STATUS: REG ER FAX #: [phone] RAD NO: Page 2 Signed Report- CT ABD PELVIS W/O [id number] 10:58:00[facility] : 1995 Sex: F Patient Name: FATMATA DUNCAN Unit No: [id number] EXAMS: CPT CODE: [id number] CT ABD PELVIS W/O CONT 25649 CT ABDOMEN/CT STONE SURVEY WITHOUT CONTRAST, 08/01/2020 [...] 6 mm right middle lobe pulmonary nodule.[facility] NAME: FATMATA DUNCAN Radiology Department PHYS: Winter Landaverde MD [address] : 1995 AGE: 24 SEX: F [place], [place] [address] LOC: SANDY PHONE #: [phone] EXAM DATE: 08/01/2020 STATUS: BALTAZAR ER FAX #: [phone] RAD NO: Page 1 Signed Report 1 Patient Name: FATMATA DUNCAN Unit No: [id number] EXAMS: CPT CODE: [id number] CT ABD PELVIS W/O CONT 12376 (Continued) CT PELVIS WITHOUT CONTRAST: No opaque [...] 13.28 DLP: 653.43 Trnscrbd D/ (1058) Trang.AJ13 [facility] [place] [facility] NAME: LYUBOV DUNCAN Radiology Department PHYS: CANAL. Winter Mccollum MD [address] : 1995 AGE: 24 SEX: F [place] [address] LOC: F.ERS PHONE #: [phone] EXAM DATE: 08/01/2020 STATUS: REG ER FAX #: [phone] RAD NO: Page 2 Signed Report 1 Patient Name: FATMATA DUNCAN Unit No: [id number] EXAMS: CPT CODE: [id number] CT ABD PELVIS W/O CONT 08352 (Continued) Orig Print D/T:S: 08/01/2020 (1101) [facility] [place] [facility] NAME: FATMATA DUNCAN Radiology Department PHYS:[facility]. Winter Mccollum MD [address] : 1995 AGE: 24 SEX: F [place] [address] LOC: Saran.ERS PHONE #: [phone] EXAM DATE: 08/01/2020 STATUS: REG ER FAX #: [phone] RAD NO: Page 3 Signed Report 1UA RFLX MICR CULT IF [id number] 10:04:00 Test Item Value Reference Range Interpretation [...] culture: Suprapubic PainSpecimen Description: CLEAN CATCHUR HCG [id number] 10:04:00 Test Item Value Reference Range Interpretation [...] Description: CLEAN CATCHUA RFLX MICR CULT IF [id number] 10:03:00 Test Item Value Reference Range Interpretation [...] culture: Suprapubic PainSpecimen Description: CLEAN CATCHUR HCG [id number] 10:03:00 Test Item Value Reference Range Interpretation Comments UR HCG QUAL (test code = HCGQLU) Indication for culture: Suprapubic PainSpecimen Description: CLEAN CATCH [id number] 14:39:00 Test Item Value Reference Range Interpretation Comments APPEARANCE (test code = Hazy Clear A 0708019965) COLOR (test code = Yellow Yellow 5026769676) PH (test code = 4.8-8.0 0693043986) SP GRAVITY (test code = 1.003-1.030 4030886054) GLU U QUAL (test code = Normal Normal 2228019519) BLOOD (test code = Negative Negative INTERFERE NCE FROM 9175200394) ASCORBIC ACID M AY CAUSE FALSE NEG ATIVE RESULT KETONES (test code = Negative Negative 6829189650) PROTEIN (test code = Negative Negative 2887-8) UROBILIN (test code = Normal Normal 0014841479) BILIRUBIN (test code = Negative Negative 7032374418) NITRITE (test code = Negative Negative 1633134869) LEUK SILVINO (test code = Negative Negative 8074596481) RBC/HPF (test code = See_Comment [Autom ated message] 1036676294) The system [employer] generated this result transmitted ref erence range: 0 - 3 HP F. The reference range was not used to int erpret this result as normal/abnormal . WBC/HPF (test code = <1 See_Comment [Autom ated message] 1002177011) The system [employer] generated this result transmitted ref erence range: 0 - 5 HP F. The reference range was not used to int erpret this result as normal/abnormal . BACTERIA (test code = Few Negative A 8992990684) MUCOUS (test code = Slight Negative LPF A 9374887705) SQ EPITH (test code = HPF 6393969374) Lab Interpretation (test Abnormal code = 95654-7) [facility] [id number] 14:08:00 Test Item Value Reference Range Interpretation Comments POCT PREG (test code = 1605) negative On board controls acceptable with present C Line (test code = 3574) POCT PREG LOT # (test code = 3575) [id number] POCT PREG TEST DATE (test 2022-02-25 code = 3576) Lab Interpretation (test code = Normal 00544-3) [facility] WITH [id number] 12:41:00 Test Item Value Reference Range Interpretation Comments WBC (test code = See_Comment [Automated 4590-2) message] The sy stem which generated this [...] RDW-SD (test code = 40.8 fL 39-49.9 43552-8) RDW-CV (test code = 13.0 % 12-15.5 788-0) PLT (test code = See_Comment H [Automated 777-3) message] The sy stem which generated this result transmitted reference range : 166 - 358 10*3/ ?L. The reference r shira was not used to interpret this result as normal/abnormal . MPV (test code = 9.5 fL 9.5-12.9 95167-9) NRBC/100 WBC (test See_Comment [Automat ed code = 5765280916) message] The system which generated this result transmitted reference range : 0.0 - 10.0 /100 WBCs. The refer ence range was not u sed to interpret th is result as normal/abnormal . NRBC x10^3 (test code <0.01 See_Comment [Auto mated = 0901587963) message] The s ystem which generated this result transmitted reference range : 10*3/?L. The reference range was not used to interpret this result as normal/abnormal . GRAN MAT (NEUT) % 49.7 % (test code = 770-8) IMM GRAN % (test code 0.40 % = 8984547999) LYMPH % (test code = 37.6 % 736-9) MONO % (test code = 6.3 % 5905-5) EOS % (test code = 5.4 % 713-8) BASO % (test code = 0.6 % 706-2) GRAN MAT x10^3(ANC) 4.65 10*3/uL 1.88-7.09 (test code = 9686534029) IMM GRAN x10^3 (test 0.04 10*3/uL 0-0.06 code = 5364352747) LYMPH x10^3 (test code 3.52 10*3/uL 1.32-3.29 H = 731-0) MONO x10^3 (test code 0.59 10*3/uL 0.33-0.92 = 742-7) EOS x10^3 (test code = 0.51 10*3/uL 0.03-0.39 H 711-2) BASO x10^3 (test code 0.06 10*3/uL 0.01-0.07 = 704-7) Lab Interpretation Abnormal (test code = 65155-2) [facility] W/AUTO [id number] 07:27:00 Test Item Value Reference Range Interpretation [...] NORMAL code = PLTMR) AG HEPATITIS B [id number] 04:15:00 Test Item Value Reference Range Interpretation Comments AG HEPATITIS B SURFACE (test code NONREACTIVE NONREACTIVE = HBSAG) AB HEPATITIS C [id number] 04:15:00 Test Item Value Reference Range Interpretation Comments AB HEPATITIS C (test code = NONREACTIVE NONREACTIVE HCVAB) SIGNAL TO CUTOFF (test code = 0.13 <0.80 N CUTOFF) RUBELLA [id number] 04:15:00 Test Item Value Reference Range Interpretation Comments RUBELLA SCREEN 70.2 IUnit/ml Results >10. 0IUnits/ml (test code = are considered positive RUBSC) inaccordance wi th the CLSI guidelines and based on the [employer] S tandard for Anti-Rubell a serum as anindicator of immune status and a br eakpoint to detect mostseropositiv e persons. AB [id number] 04:15:00 Test Item Value Reference Range Interpretation Comments AB TREPONEMA (test code = TREPAB) NONREACTIVE NONREACTIVE AG HEPATITIS B [id number] 04:00:00 Test Item Value Reference Range Interpretation Comments AG HEPATITIS B SURFACE (test code NONREACTIVE NONREACTIVE = HBSAG) AB HEPATITIS C [id number] 04:00:00 Test Item Value Reference Range Interpretation Comments AB HEPATITIS C (test code = HCVAB) NONREACTIVE SIGNAL TO CUTOFF (test code = CUTOFF) <0.80 RUBELLA [id number] 04:00:00 Test Item Value Reference Range Interpretation Comments RUBELLA SCREEN 70.2 IUnit/ml Results >10. 0IUnits/ml (test code = are considered positive RUBSC) inaccordance wi th the CLSI guidelines and based on the [employer] S tandard for Anti-Rubell a serum as anindicator of immune status and a br eakpoint to detect mostseropositiv e persons. AB [id number] 04:00:00 Test Item Value Reference Range Interpretation Comments AB TREPONEMA (test code = TREPAB) NONREACTIVE NONREACTIVE CBC W/AUTO [id number] 00:36:00 Test Item Value Reference Range Interpretation [...]
--- NOTE | 2022-09-14 15:48 | RAD REPORT ---
EXAM DESCRIPTION: Brandy Panchal And Jennifer (2 Views)09/14/2022 3:17 pm CLINICAL HISTORY: Cough COMPARISON: September 09, 2022 FINDINGS: The lungs appear clear of acute infiltrate. The heart is normal size IMPRESSION: No acute abnormalities displayed
[2022-09-14 16:01] LABS: Urine Blood 1+ (Negative); Urine Glucose Negative (Negative); Urine Protein Trace (Negative); Urine pH 6.5 (5.0-7.0)
[2022-09-14 16:28] LABS: Calcium Oxalate Crystals- Ur Few /HPF (None Seen); Specific Gravity 1.025 (1.005-1.030); Urine Bacteria None Seen /HPF (<20); Urine Bilirubin NEGATIVE (Negative); Urine Blood 1+ (Negative); Urine Clarity Turbid (Clear); Urine Color Yellow (Yellow); Urine Glucose NEGATIVE (Negative); Urine Mucus 2+ /HPF (None Seen); Urine Protein TRACE (Negative); Urine Urobilinogen Normal (Normal); Urine pH 6.5 (5.0-7.0)
[2022-09-14 16:41] LABS: Urine Glucose Negative (Negative); Urine Protein Trace (Negative); Urine pH 6.5 (5.0-7.0)
[2022-09-14 16:45] LABS: Urine Blood ND (Negative)
[2022-09-14 16:50] LABS: Absolute Lymphocytes (CBC) 1.7 K/uL (0.7-4.9); Hematocrit 39.7 % (36.0-45.0); Lymphocytes % 27.3 % (15.3-44.8); MCV 88.4 fL (80-100); MPV 7.2 fL (7.6-11.3); RBC Red Blood Cell Count 4.49 M/uL (3.86-4.86)
[2022-09-14] MEDS ORDERED: levoFLOXacin 750 MG TAB ONE (16:50)
[2022-09-14] MEDS ORDERED: NA CHLORIDE 0.9% 1,000 ML ONE (16:50)
--- NOTE | 2022-09-14 17:08 | ER ---
Nurse's Notes [facility] Name: Carla Duncan Age: 26 yrs Sex: Female : 1995 Arrival Date: 09/14/2022 Time: 14:13 Bed DX3 Private MD: Diagnosis: Cough;Acute upper respiratory infection, unspecified;Acute bronchospasm Presentation: 09/14 14:49 Chief complaint: Patient states: "I've been having a cough for a month now and I've aa5 taken steroids, 2 different antibiotics, Bromfed, Xyzal and nothing helps". Coronavirus screen: cough unrelated to allergies. Ebola Screen: Patient denies travel to an Ebola-affected area in the 21 days before illness onset. Initial Sepsis Screen: Does the patient meet any 2 criteria? No. Patient's initial sepsis screen is negative. Does the patient have a suspected source of infection? No. Patient's initial sepsis screen is negative. Risk Assessment: Do you want to hurt yourself or someone else? Patient reports no desire to harm self or others. Onset of symptoms was August 2022. 14:49 Acuity: VENKATESH 3 aa5 14:49 Method Of Arrival: Ambulatory aa5 Triage Assessment: 16:00 General: Appears in no apparent distress. Behavior is calm, cooperative. iw Historical: - Allergies: 14:49 Amoxicillin; aa5 14:49 Naproxen; aa5 14:49 Stadol; aa5 14:49 Toradol; aa5 14:49 Tylenol-Codeine #3; aa5 - PMHx: 14:49 adhd; Anxiety; Asthma; Bipolar disorder; Hypertensive disorder; aa5 - PSHx: 14:49 section; aa5 - Immunization history:: Adult Immunizations unknown. - Social history:: Smoking status: Patient denies any tobacco usage or history of. Screenin:53 [facility] ED Fall Risk Assessment (Adult) History of falling in the last 3 months, iw including since admission No falls in past 3 months (0 pts). Abuse screen: Denies threats or abuse. Denies injuries from another. Nutritional screening: No deficits noted. Tuberculosis screening: No symptoms or risk factors identified. Assessment: 14:53 Reassessment: Pt refused covid and flu swabs . aa5 16:53 Reassessment: Patient appears in no apparent distress at this time. Patient and/or iw family updated on plan of care and expected duration. Pain level reassessed. Patient is alert, oriented x 3, equal unlabored respirations, skin warm/dry/pink. Vital Signs: 14:49 BP 132 / 86; Pulse 80; Resp 18 S; Temp 97.7(TE); Pulse Ox 100% on R/A; aa5 ED Course: 14:13 Patient arrived in ED. rg4 14:20 Michael Yuan MD is Attending Physician. [facility] 14:49 Arm band placed on. aa5 14:51 Triage completed. aa5 15:00 Patient has correct armband on for positive identification. iw 15:19 Chest Pa And Lat (2 Views) XRAY In Process Unspecified. EDMS 16:30 Inserted saline lock: 20 gauge in left forearm, using aseptic technique. IV inserted by rajesh Hills ED tech. 16:39 Mary Damian, RN is Primary Nurse. iw 17:06 Regan Gonzalez MD is Referral Physician. [facility] 17:52 No provider procedures requiring assistance completed. IV discontinued, intact, iw bleeding controlled, No redness/swelling at site. Pressure dressing applied. Administered Medications: 16:52 Drug: NS 0.9% IV 1000 ml Route: IV; Rate: 1 bolus; Site: left forearm; iw 17:30 Follow up: IV Status: Completed infusion iw 16:52 Drug: LevOfloxacin PO 750 mg Route: PO; iw 17:15 Follow up: Response: No adverse reaction iw Medication: 16:00 VIS not applicable for this client. iw Outcome: 17:06 Discharge ordered by . atif 17:53 Discharged to home ambulatory. iw 17:53 Condition: good 17:53 Discharge instructions given to patient, Instructed on discharge instructions, follow up and referral plans. Demonstrated understanding of instructions, follow-up care. 17:54 Patient left the ED. Signatures: Dispatcher [employer] EDMichael Locke MD MD cha Williams, Irene, RN RN Rashida Guajardo RN RN Susannah Roach rg4
--- NOTE | 2022-09-14 17:08 | EDPHYS ---
Physician Documentation [facility] Name: Carla Duncan Age: 26 yrs Sex: Female : 1995 Arrival Date: 09/14/2022 Time: 14:13 Bed DX3 Private MD: ED Physician Michael Yuan HPI: 09/14 16:27 This 26 yrs old Female presents to ER via Ambulatory with complaints of Cough. atif 16:27 The patient or guardian reports airway noise, cough, described as mild, difficulty atif breathing. Onset: The symptoms/episode began/occurred 1 month(s) ago. Severity of symptoms: At their worst the symptoms were mild, earlier today, in the emergency department the symptoms are unchanged, despite home interventions. Modifying factors: The symptoms are alleviated by nothing, the symptoms are aggravated by nothing. The patient has experienced similar episodes in the past, a few times. Historical: - Allergies: 14:49 Amoxicillin; aa5 14:49 Naproxen; aa5 14:49 Stadol; aa5 14:49 Toradol; aa5 14:49 Tylenol-Codeine #3; aa5 - PMHx: 14:49 adhd; Anxiety; Asthma; Bipolar disorder; Hypertensive disorder; aa5 - PSHx: 14:49 section; aa5 - Immunization history:: Adult Immunizations unknown. - Social history:: Smoking status: Patient denies any tobacco usage or history of. ROS: 16:28 Constitutional: Negative for fever, chills, and weight loss, Eyes: Negative for injury, atif pain, redness, and discharge, ENT: Negative for injury, pain, and discharge, Neck: Negative for injury, pain, and swelling, Cardiovascular: Negative for chest pain, palpitations, and edema, Abdomen/GI: Negative for abdominal pain, nausea, vomiting, diarrhea, and constipation, Back: Negative for injury and pain, : Negative for injury, bleeding, discharge, and swelling, MS/Extremity: Negative for injury and deformity, Skin: Negative for injury, rash, and discoloration, Neuro: Negative for headache, weakness, numbness, tingling, and seizure, Psych: Negative for depression, anxiety, suicide ideation, homicidal ideation, and hallucinations, Allergy/Immunology: Negative for hives, rash, and allergies, Endocrine: Negative for neck swelling, polydipsia, polyuria, polyphagia, and marked weight changes, Hematologic/Lymphatic: Negative for swollen nodes, abnormal bleeding, and unusual bruising. 16:28 Respiratory: Positive for cough, shortness of breath, at rest. Exam: 16:28 Constitutional: This is a well developed, well nourished patient who is awake, alert, atif and in no acute distress. Head/Face: Normocephalic, atraumatic. Eyes: Pupils equal round and reactive to light, extra-ocular motions intact. Lids and lashes normal. Conjunctiva and sclera are non-icteric and not injected. Cornea within normal limits. Periorbital areas with no swelling, redness, or edema. ENT: Nares patent. No nasal discharge, no septal abnormalities noted. Tympanic membranes are normal and external auditory canals are clear. Oropharynx with no redness, swelling, or masses, exudates, or evidence of obstruction, uvula midline. Mucous membranes moist. Neck: Trachea midline, no thyromegaly or masses palpated, and no cervical lymphadenopathy. Supple, full range of motion without nuchal rigidity, or vertebral point tenderness. No Meningismus. Chest/axilla: Normal chest wall appearance and motion. Nontender with no deformity. No lesions are appreciated. Cardiovascular: Regular rate and rhythm with a normal S1 and S2. No gallops, murmurs, or rubs. Normal PMI, no JVD. No pulse deficits. Respiratory: Lungs have equal breath sounds bilaterally, clear to auscultation and percussion. No rales, rhonchi or wheezes noted. No increased work of breathing, no retractions or nasal flaring. Abdomen/GI: Soft, non-tender, with normal bowel sounds. No distension or tympany. No guarding or rebound. No evidence of tenderness throughout. Back: No spinal tenderness. No costovertebral tenderness. Full range of motion. Skin: Warm, dry with normal turgor. Normal color with no rashes, no lesions, and no evidence of cellulitis. MS/ Extremity: Pulses equal, no cyanosis. Neurovascular intact. Full, normal range of motion. Neuro: Awake and alert, GCS 15, oriented to person, place, time, and situation. Cranial nerves II-XII grossly intact. Motor strength 5/5 in all extremities. Sensory grossly intact. Cerebellar exam normal. Normal gait. 16:28 Musculoskeletal/extremity: DVT Exam: No signs of deep vein thrombosis. no pain, no swelling, no tenderness, negative Homans' sign noted on exam, no appreciated bluish discoloration, no erythema, no increased warmth. 17:04 Musculoskeletal/extremity: Circulation is intact in all extremities. Sensation intact. atif Compartment Syndrome exam of affected extremity: is normal. Vital Signs: 14:49 BP 132 / 86; Pulse 80; Resp 18 S; Temp 97.7(TE); Pulse Ox 100% on R/A; aa5 MDM: 14:21 Patient medically screened. atif 17:04 Differential Diagnosis: Bronchitis Influenza Upper Respiratory Infection Sinusitis atif Pneumonia. Data reviewed: vital signs, nurses notes, lab test result(s), radiologic studies, plain films. Consideration of Admission/Observation Escalation of care including admission/observation considered. Test considered but Not performed: CT: no ct pe chest. Care significantly affected by the following chronic conditions: Hypertension, adhd, anxiety, bipolar, asthma. 09/14 15:32 Order name: CBC with Diff; Complete Time: 17:02 atif 09/14 15:32 Order name: Comprehensive Metabolic Panel; Complete Time: 17:34 atif 09/14 15:32 Order name: D-Dimer; Complete Time: 17:02 atif 09/14 15:44 Order name: Urinalysis W/Microscopic; Complete Time: 16:34 09/14 16:02 Order name: Urine Dipstick-Ancillary; Complete Time: 16:34 EDMS 09/14 16:03 Order name: Urine Dipstick--Ancillary (enter results); Complete Time: 16:50 09/14 16:03 Order name: Urine --Ancillary (enter results); Complete Time: 16:50 09/14 14:21 Order name: Chest Pa And Lat (2 Views) XRAY; Complete Time: 16:34 [facility] 09/14 14:21 Order name: Urine Dipstick-Ancillary (obtain specimen); Complete Time: 16:42 [facility] 09/14 14:21 Order name: Urine Test (obtain specimen); Complete Time: 16:42 [facility] Administered Medications: 16:52 Drug: NS 0.9% IV 1000 ml Route: IV; Rate: 1 bolus; Site: left forearm; iw 17:30 Follow up: IV Status: Completed infusion iw 16:52 Drug: LevOfloxacin PO 750 mg Route: PO; iw 17:15 Follow up: Response: No adverse reaction iw Disposition Summary: 09/14/22 17:06 Discharge Ordered Location: Home atif Problem: new atif Symptoms: have improved atif Condition: Stable atif Diagnosis - Cough atif - Acute upper respiratory infection, unspecified atif - Acute bronchospasm atif Followup: atif - With: Private Physician - When: 2 - 3 days - Reason: Recheck today's complaints, Continuance of care, Re-evaluation by your physician Followup: atif - With: - When: 2 - 3 days - Reason: Recheck today's complaints, Re-evaluation by your physician Discharge Instructions: - Discharge Summary Sheet atfi - Bronchospasm, Adult atif - Upper Respiratory Infection, Adult atif - Cool Mist Vaporizer atif - Upper Respiratory Infection, Adult, [id number] atif - Cough, Adult, [id number] atif - Bronchospasm, Adult, [id number] atif - Cough, Adult atif Forms: - Medication Reconciliation Form atif - Thank You Letter atif - Antibiotic Education atif - Prescription Opioid Use atif Prescriptions: - Bromfed DM 2-30-10 mg/5 mL Oral syrup - administer 7.5 milliliter by ORAL route every 6 hours as needed for allergy atif symptoms; 150 milliliter; Refills: 0, Product Selection Permitted - albuterol sulfate 90 mcg/actuation Inhalation HFA Aerosol Inhaler - inhale 2 puff by INHALATION route every 4-6 hours as needed for bronchospasm; atif administer via ventilator; 1 unit; Refills: 0, Product Selection Permitted - Medrol (Bernardino) 4 mg Oral Tablets, Dose Pack - take 1 tablet by ORAL route as directed - follow package instructions; 1 atif packet; Refills: 0, Product Selection Permitted - levofloxacin 500 mg Oral Tablet - take 1 tablet by ORAL route once daily for 7 days; 7 tablet; Refills: 0, atif Product Selection Permitted Signatures: Dispatcher [employer] EDMichael Locke MD MD cha Williams, Irene, RN RN Rashida Guerin RN RN aa5 Corrections: (The following items were deleted from the chart) 14:57 14:21 COVID-19/FLU A+[id number].[id number] ordered. EDMS EDMS
[2022-09-14 17:10] LABS: Albumin 3.2 g/dL (3.4-5.0); Bilirubin Total 0.5 mg/dL (0.2-1.0); Potassium 3.6 mEq/L (3.5-5.1)
[2022-09-14 20:34] VITALS: BP 132/86; TEMP 97.7; O2SAT 100
== END 2022-09-14 17:54 | disposition home or self-care (01) ==
LOC: ER 14:09
DX: J06.9 Acute upper respiratory infection, unspecified (principal); J98.01 Acute bronchospasm; Z88.1 Allergy status to other antibiotic agents; Z88.5 Allergy status to narcotic agent
CPT/HCPCS: 85025; 81001; 36415; 81025; 85379; 81003 ×2; 80053; 71046; J7030

== ENCOUNTER 2022-11-18 07:52 | Emergency (ER) | payer SELFPAY ==
--- OUTSIDE RECORDS SUMMARY | 2022-11-18 08:07 | XMS REPORT | Continuity of Care Document ---
:1995 Author Organization [facility] t Address [address] [facility] [place] [address] Care Team Providers Name Role Phone RICKY BANDA Primary Care Physician Unavailable JOHN BYERS Attending Clinician Unavailable John Hyman Attending Clinician Nash Schwab MD Attending Clinician MENDY LIRIANO Attending Clinician Unavailable Calvin AREVALO, Lorena Real Attending Clinician [phone] Mendy Liriano MD Attending Clinician IZA DENSON Attending Clinician Unavailable Jessica AREVALO, Ania Attending Clinician AFSANEH CAR Attending Clinician Unavailable Josep SAM, Afsaneh Alarcon Attending Clinician Carlos Hernandez DO Attending Clinician Gume GUERREROPAkiko Attending Clinician [place] PAC, John Olivo Attending Clinician Tricia Rice Attending Clinician CHAPINCITO, JOHN Olivo Attending Clinician Unavailable Wild Cowart MD Attending Clinician Dani Kauffman DO Attending Clinician LORENA SIMPSON Admitting Clinician Unavailable Wild Barrera Admitting Clinician Unavailable Payers Payer Name Policy Type Policy Number Effective Date Expiration Date S shobha MARISOL SANDYR FROM [id number] 2020 [facility] 00:00:00 [facility] [id number] 2019 00:00:00 Problems Condition Condition Condition Status Onset Resolution Last Treating Co mments Source Name Details Category Date Date Treatment Clinician Date Obesity Obesity Disease Active Univers (BMI (BMI 1-16 ity of 30-39.9) 30-39.9) 00:00: [place] 00 Medical Branch Urinary Urinary Disease Active [...] DRUG Active Other-Cmnt Univ ers C INGREDI 7 ity of 00:00: [place] 00 Medical Branch butorpha DA Active [place] [facility] nol 2-04 [facility] [place] butorpha DA Active [place] tachycardic [facility] nol [...] 00 l of [place] codeine DA Active RI [facility] 1-19 [facility] [place] morphine DA Active U SWELLING [facility] -19 [facility] [place] codeine DA Active RI nausea, 2019-0 [facility] headache 1-19 [facility] 00:[facility] [place] tramadol DA Active RI 2018- [facility] 2-31 [facility] [place] tramadol DA Active RI CHEST PAIN 2018- [facility] 2-31 [facility] 00:00: [...] Source Natural mother Diabetes [facility] Natural mother Menstrual problems [facility] Social History Social Habit Start Date Stop Date Quantity Comments Source Gender identity [facility] Sexual orientation [facility] Exposure to 2022-10-09 2022-10-19 Not sure University of SARS-CoV-2 (event) 00:00:00 08:19:00 [facility] Alcohol intake 2022-07-22 2022-07-22 Current drinker [facility] 00:00:00 00:00:00 of alcohol Hospital (finding) History of Social 2022-07-22 2022-07-[address] function 00:00:00 00:00:00 Hospital Tobacco use and 2022-03-26 2022-03-26 Smokeless [facility] exposure 00:00:00 00:00:00 tobacco non-user Hospital Alcohol Comment 2016-04-28 2016-04-28 social, weekly [facility] 00:00:00 00:00:00 Hospital Sex Assigned At [birth year] [facility] 00[facility] Smoking Status Start Date Stop Date Source Never smoked tobacco [facility] Medications Ordered Filled Start Stop Current Ordering Indication Dosage Frequency Signature Comments Components Source Medication Medication Date Date Medication? Clinician (SIG) Name Name ibuprofen 2023-0 Yes [id number] 600mg Take 1 Univers 600 mg 4-24 100 tablet by ity of tablet 00:00: mouth [place] 00 every 6 Medical (six) Branch hours as needed for Pain (scale 4-6). ciprofloxac 2023-0 Yes 500mg Q.5D Take 1 [...] mouth 2 (two) times a day. keTOROlac 2023-0 2023- No 10mg Q6H Take 1 [facility] (TORadol) 07-22 tablet (10 st 10 mg 00:00: 05:59 mg total) Hospit a tablet 00 :00 by mouth l every 6 (six) hours as needed for moderate pain for up to 5 days. keTOROlac 2023-0 2023- No 10mg Q6H Take 1 [facility] di (TORadol) 07-22 tablet (10 st 10 mg 00:00: 05:59 mg total) Hospit a tablet 00 :00 by mouth l every 6 (six) hours as needed for moderate pain for up to 5 days. keTOROlac 2023-0 2023- No 10mg Q6H Take 1 [facility] di (TORadol) 07-22 tablet (10 st 10 mg 00:00: 05:59 mg total) Hospit a tablet 00 :00 by mouth l every 6 (six) hours as needed for moderate pain for up to 5 days. keTOROlac 2023-0 2023- No 10mg Q6H Take 1 Metho di (TORadol) 07-22 tablet (10 st 10 mg 00:00: 05:59 mg total) Hospit a tablet 00 :00 by mouth l every 6 (six) hours as needed for moderate pain for up to 5 days. keTOROlac 2023-0 2023- No 10mg Q6H Take 1 Metho di (TORadol) 07-22 tablet (10 st 10 mg 00:00: 05:59 mg total) Hospit a tablet 00 :00 by mouth l every 6 (six) hours as needed for moderate pain for up to 5 days. keTOROlac 3-0 2023- No 10mg Q6H Take 1 Metho di (TORadol) 07-22 tablet (10 st 10 mg 00:00: 05:59 mg total) Hospit a tablet 00 :00 by mouth l every 6 (six) hours as needed for moderate pain for up to 5 days. keTOROlac 2022-0 2023- No 10mg Q6H Take 1 Metho di (TORadol) 07-22 tablet (10 st 10 mg 00:00: 05:59 mg total) Hospit a tablet 00 :00 by mouth l every 6 (six) hours as needed for moderate pain for up to 5 days. keTOROlac 3-0 3- No 10mg Q6H Take 1 Metho di (TORadol) 07-22 tablet (10 st 10 mg 00:00: 05:59 mg total) Hospit a tablet 00 :00 by mouth l every 6 (six) hours as needed for moderate pain for up to 5 days. phenazopyri 2023-0 2023- No 200mg Q.[id number] Take 1 Methodi dine 07-[id number] (Pyridium) 00:00: 05:59 3D (200 mg Hos radha 200 MG 00 :00 total) by l tablet mouth 3 (three) times a day as needed for bladder spasms for up to 3 days. phenazopyri 2023-0 2023- No 200mg Q.[id number] Take 1 Methodi dine 07-[id number] (Pyridium) 00:00: 05:59 3D (200 mg Hos radha 200 MG 00 :00 total) by l tablet mouth 3 (three) times a day as needed for bladder spasms for up to 3 days. phenazopyri 2023-0 2023- No 200mg Q.[id number] Take 1 Methodi dine 07-[id number] (Pyridium) 00:00: 05:59 3D (200 mg Hos radha 200 MG 00 :00 total) by l tablet mouth 3 (three) times a day as needed for bladder spasms for up to 3 days. phenazopyri 2023-0 2023- No 200mg Q.[id number] Take 1 Methodi dine 07-[id number] (Pyridium) 00:00: 05:59 3D (200 mg Hos radha 200 MG 00 :00 total) by l tablet mouth 3 (three) times a day as needed for bladder spasms for up to 3 days. phenazopyri 0 2022- No 200mg Q.[id number] Take 1 Methodi dine 07-[id number] (Pyridium) 00:00: 05:59 3D (200 mg Hos radha 200 MG 00 :00 total) by l tablet mouth 3 (three) times a day as needed for bladder spasms for up to 3 days. phenazopyri 0 2022- No 200mg Q.[id number] Take 1 Methodi dine 07-[id number] (Pyridium) 00:00: 05:59 3D (200 mg Hos radha 200 MG 00 :00 total) by l tablet mouth 3 (three) times a day as needed for bladder spasms for up to 3 days. phenazopyri 0 2022- No 200mg Q.75172515 Take 1 Methodi dine 07-[id number] (Pyridium) 00:00: 05:59 3D (200 mg Hos radha 200 MG 00 :00 total) by l tablet mouth 3 (three) times a day as needed for bladder spasms for up to 3 days. phenazopyri 0 2022- No 200mg Q.[id number] Take 1 Methodi dine 07-[id number] (Pyridium) 00:00: 05:59 3D (200 [...] 1 Medical 75 mcg dose, On Branch [facility] [place] 05/28/22 at 2230, Routine doxycycline 2021-06 No 100mg 100 mg, U nivers hyclate 07-30 Oral, ity of (Vibramycin 03:45: 03:51 [place] capsule 00 :00 dose, On Medica l 100 mg [facility] 05/28/22 at 2145, RODRICK
Re ason for Anti-Infec tive: Documented Infection< br>Documen jd Infection Site: Pelvic
Duration of Therapy: Other (see Comments) morpHINE (4 2021-06- No 4mg 4 mg, Slow Univers mg/mL) 07-30 IV Push, ity of injection 4 02:30: 02:47 [place]CE[place] 1 [place] mg 00 :00 dose, On Medical Elicia [facility]am 05/28/22 at 2030, STAT ketorolac 2021-06 No 15mg 15 mg, Unive rs (TORADOL) 07-30 Slow IV ity of injection 01:45: 01:01 Push, [place] 15 mg 00 :00 ONCE, 1 Medical dose, On [facility] 05/28/22 at 1945, Routine iopamidol 2021-06 No [id number] 75mL 75 mL, Univers (ISOVUE 07-30 Intravenou ity o f 370-500 mL) 01:15: 01:15 s, ONCE, 1 [place] injection 00 :00 dose, On Medica l 75 mL [facility] 05/28/22 at 1915, Routine FENTanyl PF 2021-06 No 50ug 50 mcg, Un carolann (SUBLIMAZE 07-30 Slow IV ity o f (PF)) 01:00: 00:11 Push, [place] injection 00 :00 ONCE, 1 Medical 50 mcg dose, On [facility] 05/28/22 at 1900, Routine ondansetron 2021-06- No 4mg 4 mg, Slow Univers (ZOFRAN 07-30 IV Push, ity of (PF)) 00:15: 00:11 ONCE, 1 [place] injection 4 00 :00 dose, On Medi [place] mg Elicia Branch 05/28/22 at 1815, RODRICK metroNIDAZO 2021-06 Yes [id number] 500mg Take 1 Univers LE 500 mg 2-01 tablet by ity o f tablet 00:00: mouth in [place] 00 the Medical morning Branch and 1 tablet in the evening. metroNIDAZO 2021-06 Yes [id number] 500mg Take 1 Univers LE 500 mg 2-01 tablet by ity o f tablet 00:00: mouth in [place] 00 the Medical morning Branch and 1 tablet in the evening. doxycycline 2021-06- No [id number] 100mg Take 1 Univers hyclate 100 07-29 [...] as needed for nausea or vomiting. ibuprofen 202-0 Yes 800mg Q8H Take 1 Metho di [...] ALPRAZolam Yes alprazolam U nivers 0.5 mg -03 0.5 mg ity of tablet 12:44: tablet [facility] bupropion Yes bupropion Uni vers HBr 02-28 HBr ity of (APLENZIN 12:44: [place] ORAL) [facility] FLUoxetine Yes fluoxetine U nivers 20 mg 9- 20 mg ity of capsule 12:44: capsule [facility] ALPRAZolam Yes alprazolam U nivers 0.5 mg 03 0.5 mg ity of tablet 12:44: tablet [facility] bupropion Yes bupropion Uni vers HBr 02-28 HBr ity of (APLENZIN 12:44: [place] ORAL) [facility] FLUoxetine Yes fluoxetine U nivers 20 mg 02-28 20 mg ity of capsule 12:44: capsule [place] [facility] famotidine No 20mg 20 mg, Univ ers (PEPCID AC) 02-27 Oral, ity of tablet 20 05:00: 05:00 ONCE, [place] mg 00 :00 dose, On Medical Wed02/27/22 Branch at 0000, RODRICK ALPRAZolam 1mg 1 mg, Unive rs (XANAX) 02-27 Oral, ity of tablet 1 mg 05:00: 05:00 [place]CE[place] 00 :[place] dose, On Wed02/27/22 Branch at 0000, RODRICK ALPRAZolam Yes alprazolam U nivers 0.5 mg 02-26 0.5 mg ity of tablet 23:48: tablet [place] [facility] bupropion Yes bupropion Uni vers HBr 02-26 HBr ity of (APLENZIN 23:48: [place] ORAL) [facility] FLUoxetine Yes fluoxetine U nivers 20 mg 02-26 20 mg ity of capsule 23:48: capsule [address] ciprofloxac 2021- No 500mg Q.5D Take [...] times a day for 7 days. phenazopyri 2-0 2022- No 200mg Q.[id number] Take 1 Methodi dine 02-[id number] (PYRIDIUM) 00:00: 04:59 3D (200 mg Hos radha 200 MG 00 :00 total) by l tablet mouth 3 (three) times a day for 3 days. phenazopyri 2022-0 2022- No 200mg Q.[id number] Take 1 Methodi dine 02-[id number] (PYRIDIUM) 00:00: 04:59 3D (200 mg Hos radha 200 MG 00 :00 total) by l tablet mouth 3 (three) times a day for 3 days. phenazopyri 2021-0 2022- No 200mg Q.[id number] Take 1 Methodi dine 02-[id number] (PYRIDIUM) 00:00: 04:59 3D (200 mg Hos radha 200 MG 00 :00 total) by l tablet mouth 3 (three) times a day for 3 days. phenazopyri 2021-0 202- No 200mg Q.[id number] Take 1 Methodi dine 02-[id number] (PYRIDIUM) 00:00: 04:59 3D (200 mg Hos radha 200 MG 00 :00 total) by l tablet mouth 3 (three) times a day for 3 days. phenazopyri 2021-0 2021- No 200mg Q.[id number] Take 1 Methodi dine 02-[id number] (PYRIDIUM) 00:00: 04:59 3D (200 mg Hos radha 200 MG 00 :00 total) by l tablet mouth 3 (three) times a day for 3 days. phenazopyri 2021-0 202- No 200mg Q.[id number] Take 1 Methodi dine 02-[id number] (PYRIDIUM) 00:00: 04:59 3D (200 mg Hos radha 200 MG 00 :00 total) by l tablet mouth 3 (three) times a day for 3 days. phenazopyri 2021-0 2022- No 200mg Q.[id number] Take 1 Methodi dine 02-[id number] (PYRIDIUM) 00:00: 04:59 3D (200 mg Hos radha 200 MG 00 :00 total) by l tablet mouth 3 (three) times a day for 3 days. phenazopyri 2022-0 2022- No 200mg Q.[id number] Take 1 Methodi dine 02-[id number] (PYRIDIUM) 00:00: 04:59 3D (200 mg Hos radha 200 MG 00 :00 total) by l tablet mouth 3 (three) times a day for 3 days. phenazopyri 2021-0 2021- No 200mg Q.[id number] Take 1 Methodi dine 02-[id number] (PYRIDIUM) 00:00: 04:59 3D (200 mg Hos radha 200 MG 00 :00 total) by l tablet mouth 3 (three) times a day for 3 days. phenazopyri 2021-0 2021- No 200mg Q.[id number] Take 1 Methodi dine 02-[id number] (PYRIDIUM) 00:00: 04:59 3D (200 mg Hos radha 200 MG 00 :00 total) by l tablet mouth 3 (three) times a day for 3 days. phenazopyri 2021-0 2021- No 200mg Q.[id number] Take 1 Methodi dine 02-[id number] (PYRIDIUM) 00:00: 04:59 3D (200 mg Hos radha 200 MG 00 :00 total) by l tablet mouth 3 (three) times a day for 3 days. phenazopyri 2021-0 2021- No 200mg Q.[id number] Take 1 Methodi dine 02-[id number] (PYRIDIUM) 00:00: 04:59 3D (200 mg Hos radha 200 MG 00 :00 total) by l tablet mouth 3 (three) times a day for 3 days. phenazopyri 2021-0 2021- No 200mg Q.[id number] Take 1 Methodi dine 02-[id number] (PYRIDIUM) 00:00: 04:59 3D (200 mg Hos radha 200 MG 00 :00 total) by l tablet mouth 3 (three) times a day for 3 days. phenazopyri 2021-0 2021- No 200mg Q.[id number] Take 1 Methodi dine 02-[id number] (PYRIDIUM) 00:00: 04:59 3D (200 mg Hos radha 200 MG 00 :00 total) by l tablet mouth 3 (three) times a day for 3 days. phenazopyri 0 2021- No 200mg Q.[id number] Take 1 Methodi dine 02-[id number] (PYRIDIUM) 00:00: 04:59 3D (200 mg Hos radha 200 MG 00 :00 total) by l tablet mouth 3 (three) times a day for 3 days. phenazopyri 0 2021- No 200mg Q.[id number] Take 1 Methodi dine 02-[id number] (PYRIDIUM) 00:00: 04:59 3D (200 mg Hos radha 200 MG 00 :00 total) by l tablet mouth 3 (three) times a day for 3 days. ondansetron 2020- No 4mg 4 mg, Univ ers (ZOFRAN-ODT 12-31 Oral, ity of ) 09:15: 08:20 ONCE, 1 [place] disintegrat 00 :00 [facility] 12/31/20 at Bran ch 4 mg 0415, Routine diphenhydrA 2020- No 25mg 25 mg, Uni vers MINE 12-31 Oral, ity of (BENADRYL) 09:15: 08:20 ONCE, 1 [place] tablet 25 00 :00 dose, [facility] al mg 12/31/20 at Branch 0415, RODRICK ibuprofen 2020- No 800mg 800 mg, Uni vers (IBU) 12-31 Oral, ity of tablet 800 08:00: 07:17 ONCE, 1 [place] mg 00 :00 dose, [facility] 12/31/20 at Branch 0300, RODRICK methocarbam 2020- No 1000mg 1,000 mg, Univers oL 12-31 Oral, ONCE ity of (ROBAXIN) 08:00: 07:17 NOW, 1 [place] tablet 00 :00 dose, [facility] 1,000 mg 12/31/20 at Branch 0300, RODRICK ibuprofen Yes [id number] 800mg Take 1 U nivers 800 mg 12-31 tablet by ity of tablet 00:00: mouth [place] 00 every 8 Medical (eight) Branch hours as needed for Pain (scale 4-6). cyclobenzap Yes [id number] 10mg Take 1 Univers rine 10 mg 7- tablet by ity of tablet 00:00: mouth 3 [place] 00 (three) Medical times Branch daily as needed for Muscle Spasms. ibuprofen 2021- No [id number] 800mg Take 1 Univers 800 mg 12-31 tablet by ity of tablet 00:00: 00:00 mouth [place] 00 :00 every 8 Medical (eight) Branch hours as needed for Pain (scale 4-6). cyclobenzap 2021- No [id number] 10mg Take 1 Univers rine 10 mg [...] 1,000 mL 00 :00 IV Medical Infusion, [place] ONCE, 1 dose, [facility] 11/20/20 at 1530, STAT metoclopram No 10mg 10 mg, Uni vers dio HCl 11-20 Slow IV ity of (REGLAN) 20:15: 19:18 Push, [place] injection 00 :00 ONCE, 1 Medical 10 mg dose, [facility] 11/20/20 at 1515, RODRICK ketorolac 2020- No 30mg 30 mg, Unive rs (TORADOL) 11-20 Slow IV ity of injection 20:15: 19:18 Push, [place] 30 mg 00 :00 ONCE, 1 Medical dose, [facility] 11/20/20 at 1515, RODRICK
Fa culty member [...] Discontinu ed, Routine, zofran ketorolac 0 Yes [id number] 10mg Take 1 Un carolann 10 mg 5-26 tablet by ity of tablet 00:00: mouth [place] 00 every 6 Medical (six) Branch hours as needed for Pain (scale 4-6). cyclobenzap Yes [id number] 10mg Take 1 Univers rine 10 mg 5-26 tablet by ity of tablet 00:00: mouth 3 [place] 00 (three) Medical times Branch daily. ketorolac Yes [id number] 10mg Take 1 Un carolann 10 mg 5-26 tablet by ity of tablet 00:00: mouth [place] 00 every 6 Medical (six) Branch hours as needed for Pain (scale 4-6). cyclobenzap Yes [id number] 10mg Take 1 Univers rine 10 mg 5-26 tablet by ity of tablet 00:00: mouth 3 [place] 00 (three) Medical times Branch daily. ketorolac 2021- No [id number] 10mg Take 1 U nivers 10 mg 5-26 - tablet by ity of tablet 00:00: 00:00 mouth [place] 00 :00 every 6 Medical (six) Branch hours as needed for Pain (scale 4-6). cyclobenzap 0 2021- No [id number] 10mg Take 1 Univers rine 10 mg [...] RODRICK
[facility] : Tricia HERBERT [...] 09/26/20 Branch at 2245, RODRICK ondansetron Yes [id number] 4mg Take 1 Univers (ZOFRAN 4-01 tablet by ity of ODT) 4 mg 00:00: mouth [place] disintegrat 00 every 8 Medic al ing tablet (eight) Branch hours as needed for Nausea and Vomiting (N/V). ondansetron Yes [id number] 4mg Take 1 Univers (ZOFRAN 4-01 tablet by ity of ODT) 4 mg 00:00: mouth [place] disintegrat 00 every 8 Medic al ing tablet (eight) Branch hours as needed for Nausea and Vomiting (N/V). ondansetron Yes [id number] 4mg Take 1 Univers (ZOFRAN 4-01 tablet by ity of ODT) 4 mg 00:00: mouth [place] disintegrat 00 every 8 Medic al ing tablet (eight) Branch hours as needed for Nausea and Vomiting (N/V). ondansetron 2021- No [id number] 4mg Take 1 Univers (ZOFRAN 4-01 09-01 tablet by ity of ODT) 4 mg 00:00: 00:00 mouth [place] disintegrat 00 :00 every 8 Medic al ing tablet (eight) Branch hours as needed for Nausea and Vomiting (N/V). proMETHazin Yes [id number] 25mg Take 1 Univers e 25 mg 2-09 tablet by ity of tablet 00:00: mouth [place] 00 every 6 Medical (six) Branch hours as needed for Nausea and Vomiting (N/V). proMETHazin Yes [id number] 25mg Take 1 Univers e 25 mg 2-09 tablet by ity of tablet 00:00: mouth [place] 00 every 6 Medical (six) Branch hours as needed for Nausea and Vomiting (N/V). proMETHazin Yes [id number] 25mg Take 1 Univers e 25 mg 2-09 tablet by ity of tablet 00:00: mouth [place] 00 every 6 Medical (six) Branch hours as needed for Nausea and Vomiting (N/V). proMETHazin 2021- No [id number] 25mg Take 1 Univers e 25 mg [...] culty member approving Restricted medication : LEONEL WILD E NaCl 0.9% No 1000mL at 999 [...] No 1{packe Take 1 Uni vers vit 529 - t} Packet by ity of 33-iron-fol 00:00: 00:00 [place] ic-dha 00 :00 daily. Medical (SELECT-OB Branch + DHA) 29 mg iron-1 mg -250 mg combo pack Immunizations Ordered Filled Immunization Date Status Comments [facility] e Immunization Name Name Td 2011-06-28 Completed University of 00:00:00 [facility] Td 2011-06-28 Completed University of 00:00:00 [facility] Td 2011-06-28 Completed University of 00:00:00 [facility] Td 2011-06-28 Completed University of 00:00:00 [facility] Td 2011-06-28 Completed University of 00:00:00 [facility] TD, NOS 2011-06-28 Completed University of 00:00:00 [facility] Td 2011-06-28 Completed University of 00:00:00 [facility] Vital Signs Vital Name Observation Time Observation Value Comments Source Systolic blood 2022-10-19 14:30:00 129 mm[Hg] Univer sity of pressure [facility] Diastolic blood 2022-10-19 14:30:00 93 mm[Hg] Unive rsity of [facility] Heart rate 2022-10-19 14:30:00 73 /min [facility] Respiratory rate 2022-10-19 14:30:00 14 /min [facility] Oxygen saturation in 2022-10-19 14:30:00 100 /min [facility] Arterial blood by [facility] Pulse oximetry Branch Body temperature 2022-10-19 13:22:00 37 [place] [facility] Body height 2022-10-19 13:22:00 152.4 cm [facility] Body weight 2022-10-19 13:22:00 79.833 kg [facility] BMI 2022-10-19 13:22:00 34.37 kg/m2 [facility] Systolic blood 2022-05-29 04:19:00 123 mm[Hg] Univer sity of pressure [place] [facility] Diastolic blood 2022-05-29 04:19:00 87 mm[Hg] Unive rsity of pressure [place] [facility] Heart rate 2022-05-29 04:19:00 93 /min Universi ty of [place] [facility] Respiratory rate 2022-05-29 04:19:00 18 /min Univ ersity of [place] [facility] Oxygen saturation in 2022-05-29 04:19:00 97 /min University of Arterial blood by [place] [email or web address] [facility] Pulse oximetry Branch Body temperature 2022-05-28 23:42:00 37.11 [place] Univ ersity of [place] [facility] Body height 2022-05-28 23:42:00 152.4 cm Universi ty of [place] [facility] Systolic blood 2022-02-27 05:31:00 130 mm[Hg] Univer sity of pressure [place] [facility] Diastolic blood 2022-02-27 05:31:00 87 mm[Hg] Unive rsity of pressure [place] [facility] Heart rate 2022-02-27 05:31:00 98 /min Universi ty of [place] [facility] Respiratory rate 2022-02-27 05:31:00 18 /min Univ ersity of [place] [facility] Oxygen saturation in 2022-02-27 05:31:00 99 /min University of Arterial blood by [place] [email or web address] [facility] Pulse oximetry Branch Body height 2022-02-27 03:38:00 152.4 cm Universi ty of [place] [facility] Body weight 2022-02-27 03:38:00 82.101 kg Universi ty of [place] [facility] BMI 2022-02-27 03:38:00 35.35 kg/m2 Universi ty of [place] [facility] Body temperature 2022-02-27 03:36:00 36.28 [place] Univ ersity of [place] [facility] Systolic blood 2020-12-31 06:49:00 125 mm[Hg] Univer sity of pressure [place] [facility] Diastolic blood 2020-12-31 06:49:00 93 mm[Hg] Unive rsity of pressure [place] [facility] Heart rate 2020-12-31 06:49:00 104 /min Universi ty of [place] [facility] Body temperature 2020-12-31 06:49:00 36.83 [place] Univ ersity of [place] [facility] Respiratory rate 2020-12-31 06:49:00 15 /min Univ ersity of [place] [facility] Body height 2020-12-31 06:49:00 152.4 cm Universi ty of [place] [facility] Body weight 2020-12-31 06:49:00 92.5 kg Universi ty of [place] [facility] BMI 2020-12-31 06:49:00 39.83 kg/m2 Universi ty of [place] [facility] Oxygen saturation in 2020-12-31 06:49:00 99 /min University of Arterial blood by [facility] scott Pulse oximetry Branch Systolic blood 2020-12-31 06:49:00 125 mm[Hg] Univer sity of pressure [place] [facility] Diastolic blood 2020-12-31 06:49:00 93 mm[Hg] Unive rsity of pressure [place] [facility] Heart rate 2020-12-31 06:49:00 104 /min Universi ty of [place] [facility] Body temperature 2020-12-31 06:49:00 36.83 [place] Univ ersity of [place] [facility] Respiratory rate 2020-12-31 06:49:00 15 /min Univ ersity of [place] [facility] Body height 2020-12-31 06:49:00 152.4 cm Universi ty of [place] [facility] Body weight 2020-12-31 06:49:00 92.5 kg Universi ty of [place] [facility] BMI 2020-12-31 06:49:00 39.83 kg/m2 Universi ty of [place] [facility] Oxygen saturation in 2020-12-31 06:49:00 99 /min University of Arterial blood by [facility] Pulse oximetry Branch Systolic blood 2020-11-20 19:58:00 146 mm[Hg] Univer sity of pressure [place] [facility] Diastolic blood 2020-11-20 19:58:00 95 mm[Hg] Unive rsity of pressure [place] [facility] Heart rate 2020-11-20 19:58:00 98 /min Universi ty of [place] [facility] Body temperature 2020-11-20 19:58:00 37.17 [place] Univ ersity of [place] [facility] Respiratory rate 2020-11-20 19:58:00 17 /min Univ ersity of [place] [facility] Oxygen saturation in 2020-11-20 19:58:00 100 /min University of Arterial blood by [place] [email or web address] [facility] Pulse oximetry Branch Body weight 2020-11-20 [...] 2020-11-20 19:58:00 17 /min Univ ersity of [place] [facility] Oxygen saturation in 2020-11-20 19:58:00 100 /min University of Arterial blood by [place] [email or web address] [facility] [facility] Pulse oximetry Branch Body weight 2020-11-20 16:43:00 [...] 97 /min [facility] of Arterial blood by [place] [email or web address] Pulse oximetry Branch Body height 2020-09-26 [...] 2020-09-26 23:45:00 18 /min Univ ersity of [facility] Oxygen saturation in 2020-09-26 23:45:00 97 /min [facility] of Arterial blood by [facility] Pulse oximetry Branch Systolic blood 2020-07-17 14:00:00 112 mm[Hg] Univer sity of pressure [place] [facility] Diastolic blood 2020-07-17 14:00:00 65 mm[Hg] Unive rsity of pressure [place] [facility] Heart rate 2020-07-17 14:00:00 86 /min [facility] [place] [facility] Respiratory rate 2020-07-17 14:00:00 20 /min [facility] [place] [facility] Oxygen saturation in 2020-07-17 14:00:00 100 /min [facility] Arterial blood by [facility] Pulse oximetry Branch Body temperature 2020-07-17 11:50:00 37.22 [place] [facility] [place] [facility] Body weight 2020-07-17 11:50:00 86.183 kg [facility] [place] [facility] BMI 2020-07-17 11:50:00 37.11 kg/m2 [facility] [place] [facility] Systolic blood 2020-07-17 14:00:00 112 mm[Hg] Univer [facility]ity [facility] pressure [place] [facility] Diastolic blood 2020-07-17 14:00:00 65 mm[Hg] Unive rsity of pressure [facility] Heart rate 2020-07-17 14:00:00 86 /min [facility] [place] [facility] Respiratory rate 2020-07-17 14:00:00 20 /min [facility] Oxygen saturation in 2020-07-17 14:00:00 100 /min [facility] Arterial blood by [facility] Pulse oximetry [place] Body temperature 2020-07-17 11:50:00 37.22 [place] [facility] Body weight 2020-07-17 11:50:00 86.183 kg [facility] BMI 2020-07-17 11:50:00 37.11 kg/m2 [facility] Systolic blood 2022-07-22 19:04:00 122 mm[Hg] [facility] pressure Diastolic blood 2022-07-22 19:04:00 72 mm[Hg] [facility] Hospital pressure Heart rate 2022-07-22 19:04:00 72 /min [facility] Respiratory rate 2022-07-22 19:04:00 18 /min [facility] Oxygen saturation in 2022-07-22 19:04:00 100 /min [facility] Arterial blood by Pulse oximetry Body temperature 2022-07-22 17:04:00 36.72 [place] [facility] Body height 2022-07-22 17:04:00 157.5 cm [facility] Body weight 2022-07-22 17:04:00 85.276 kg [facility] BMI 2022-07-22 17:04:00 34.39 kg/m2 [facility] Systolic blood 2022-03-26 13:44:00 139 mm[Hg] Method is Hospital pressure Diastolic blood 2022-03-26 13:44:00 83 mm[Hg] [facility] Hospital pressure Heart rate 2022-03-26 13:44:00 101 /min [facility] Respiratory rate 2022-03-26 13:44:00 18 /min [facility] Oxygen saturation in 2022-03-26 13:44:00 100 /min [facility] Arterial blood by Pulse oximetry Body temperature 2022-03-26 12:32:00 36.72 [place] [facility] Body height 2022-03-26 12:32:00 157.5 cm [facility] Body weight 2022-03-26 12:32:00 85.276 kg [facility] BMI 2022-03-26 12:32:00 34.39 kg/m2 [facility] Procedures Procedure Date / Time Performing Clinician Source Performed POCT TEST 2022-10-19 15:07:00 Vasu Hutson [facility] Medical Branch LIPASE 2022-10-19 13:44:00 Vasu Hutson [facility] COMP. METABOLIC PANEL 2022-10-19 13:44:00 Vasu Hutson [facility] ([id number]) [facility] CBC WITH DIFF 2022-10-19 13:44:00 Vasu Hutson [facility] CONSENT/REFUSAL FOR 2022-10-19 13:14:52 Doctor Unassigned, No Un [facility] DIAGNOSIS AND TREATMENT Name Medical Branch URINE CULTURE 2022-07-22 19:12:00 ZaheerNash duong [facility] COMPREHENSIVE METABOLIC 2022-07-22 17:33:00 Zaheer [facility] PANEL ESTIMATED GFR 2022-07-22 17:33:00 ZaheerNash nicholas [facility] CT RENAL STONE PROTOCOL 2022-07-22 17:13:55 ZaheerNash nicholas [facility] CBC WITH PLATELET AND 2022-07-22 16:33:00 [facility] COMPREHENSIVE METABOLIC 2022-07-22 16:33:00 Zaheer, [facility] PANEL ESTIMATED GFR 2022-07-22 16:33:00 Zaheer, [facility] URINALYSIS SCREEN AND 2022-07-22 16:22:00 [facility], WITH REFLEX TO CULTURE US PELVIS COMPLETE WITH 2022-05-29 02:07:00 Lorena Simpson [facility] TRANSVAGINAL [facility] ABDOMEN PELVIS W 2022-05-29 00:28:13 Lorena Simpson [facility] CONTRAST [facility] COMP. METABOLIC PANEL 2022-05-29 00:07:00 Lorena Simpson [facility] ([id number]) [facility] CBC WITH DIFF 2022-05-29 00:07:[address] [facility] URINALYSIS 2022-05-28 23:56:[address] [facility] POCT TEST 2022-05-28 23:53:00 Lorena Simpson [facility] CONSENT/REFUSAL FOR 2022-05-28 23:40:29 Doctor Unassigned, No Un [facility] DIAGNOSIS AND TREATMENT Name Medical Branch URINALYSIS 2022-03-26 13:06:00 [facility] HCG QUALITATIVE, URINE 2022-03-26 13:06:00 [facility] SCREEN URINALYSIS 2022-03-26 13:06:00 [facility] HCG QUALITATIVE, URINE 2022-03-26 13:06:00 [facility] SCREEN CBC WITH PLATELET AND 2022-03-26 12:46:00 [facility] DIFFERENTIAL COMPREHENSIVE METABOLIC 2022-03-26 12:46:00 [facility] PANEL ESTIMATED GFR 2022-03-26 12:46:00 [facility] CBC WITH PLATELET AND 2022-03-26 12:46:00 [facility] DIFFERENTIAL POCT TEST 2022-02-27 04:56:00 Afsaneh Car [facility] LIPASE 2022-02-27 04:04:00 Afsaneh Car [facility] TROPONIN I 2022-02-27 04:04:00 Afsaneh Car [facility] THYROID STIMULATING 2022-02-27 04:04:00 Afsaneh Car [facility] HORMONE [facility] COMP. METABOLIC PANEL 2022-02-27 04:04:00 Afsaneh Car [facility] ([id number]) [facility] CBC WITH DIFF 2022-02-27 04:04:00 Afsaneh Car [facility] URINALYSIS 2022-02-27 03:56:00 Afsaneh Car [facility] URINE DRUG (IMMUNOASSAY) 2022-02-27 03:56:00 Afsaneh Car [facility] Medical Bra nch SCREEN W/O REFLEX NOTICE OF PRIVACY 2022-02-27 03:05:57 Doctor Unassigned, No [facility] PRACTICES Name Medical Branch CONSENT/REFUSAL FOR 2022-02-27 03:04:00 Doctor Unassigned, No [facility] [place] [facility]REAT[facility] Name Medical Branch COMPREHENSIVE METABOLIC 2022-02-18 05:17:00 Carlos Hernandez [facility] PANEL ESTIMATED GFR 2022-02-18 05:17:00 Carlos Hernandez spital COMPREHENSIVE METABOLIC 2022-02-18 04:38:00 Carlos Hernandez [facility] PANEL ESTIMATED GFR 2022-02-18 04:38:[address] ABDOMEN PELVIS WO 2022-02-18 04:17:35 Carlos Hernandez [facility] CONTRAST URINE CULTURE 2022-02-18 04:00:00 Carlos Hernandez spital CBC WITH PLATELET AND 2022-02-18 04:00:00 Carlos Hernandez [facility] DIFFERENTIAL COMPREHENSIVE METABOLIC 2022-02-18 04:00:00 Carlos Hernandez [facility] PANEL ESTIMATED GFR 2022-02-18 04:00:00 Carlos Hernandez spital HCG QUALITATIVE, URINE 2022-02-18 02:50:00 Carlos Hernandez [facility] SCREEN URINALYSIS 2022-02-18 02:50:00 Carlos Hernandez spital RAPID STREP SCREEN FOR 2020-12-31 07:13:00 Akiko Dunaway [facility] GROUP A Medical Branch NOTICE OF PRIVACY 2020-12-31 06:34:54 Doctor Unassigned, No [facility] PRACTICES Name Medical Branch CONSENT/REFUSAL FOR 2020-12-31 06:34:35 Doctor Unassigned, No [facility] [place] DIAGNOSIS AND TREATMENT Name Medical Branch CT HEAD WO CONTRAST 2020-11-20 18:18:22 John Rivera [facility] POCT TEST 2020-11-20 17:50:00 John Rivera [facility] BASIC METABOLIC PANEL 2020-11-20 17:24:00 John Rivera [facility] (NA, K, CL, CO2, Medical Branch GLUCOSE, BUN, CREATININE, CA) CBC WITH DIFF 2020-11-20 17:24:00 John Rivera [facility] CONSENT/REFUSAL FOR 2020-11-20 16:36:59 Doctor Unassigned, No Un [facility] [place] DIAGNOS[facility] TREATMENT [facility] POCT TEST 2020-09-27 02:56:00 Tricia Herbert [facility] ASSIGNMENT OF BENEFITS 2020-09-27 01:35:31 Doctor Unassigned, No [facility] CONSENT/REFUSAL FOR 2020-09-26 23:26:24 Doctor Unassigned, No Un [facility] [place] DIAGNOSIS AND TREATMENT [facility] URINALYSIS 2020-07-17 14:08:00 Wild Cowart [facility] POCT TEST 2020-07-17 14:08:00 Wild Cowart [facility] CBC WITH DIFF 2020-07-17 12:25:00 Wild Cowart [facility] NOTICE OF PRIVACY 2020-07-17 11:48:39 Doctor Unassigned, No [facility] PRACTICES [facility] CONSENT/REFUSAL FOR 2020-07-17 11:44:41 Doctor Unassigned, No Un [facility] [place] [facility]REAT[facility] Plan of Care Planned Activity Planned Date Details Comments Source Future Scheduled 2022-10-03 COVID-[address] [facility] Test 02:09:31 (#1) [code = COVID-19 VACCINE (#1)] Future Scheduled 2022-10-03 [facility] 02[facility]09:31 screening (procedure) [code = 412708365] Future Scheduled 2022-10-03 [facility] Test 02:09:31 malignant neoplasm of cervix (procedure) [code = 368522908] Future Scheduled 2022-10-03 [facility]FLUENZA VACCINE [facility] 02:09:31 [code = INFLUENZA VACCINE] Future Scheduled 2022-10-03 COVID-[address] [facility] Test 02:09:31 (#1) [code = COVID-19 VACCINE (#1)] Future Scheduled 2022-10-03 [facility] 02:09:31 screening (procedure) [code = 608415814] Future Scheduled 2022-10-03 [facility] Test 02:09:31 malignant neoplasm of cervix (procedure) [code = 479183854] Future Scheduled 2022-10-03 [facility]ZA [facility]ACCINE [facility] 02:09:31 [code = INFLUENZA VACCINE] Future Scheduled 2022-09-07 COVID-[address] [facility] Test 16:46:36 (#1) [code = COVID-19 VACCINE (#1)] Future Scheduled 2022-09-07 [facility] 16:46:36 screening (procedure) [code = 913195427] Future Scheduled 2022-09-07 [facility] Test 16:46:36 malignant neoplasm of cervix (procedure) [code = 149807716] Future Scheduled 2022-09-07 [facility] 16:46:36 [code = INFLUENZA VACCINE] Future Scheduled 2022-09-07 COVID-[address] [facility] Test 16:46:36 (#1) [code = COVID-19 VACCINE (#1)] Future Scheduled 2022-09-07 [facility] 16:46:36 screening (procedure) [code = 004996427] Future Scheduled 2022-09-07 [facility] Test 16:46:36 malignant neoplasm of cervix (procedure) [code = 537075927] Future Scheduled 2022-09-07 [facility]INE [facility] 16:46:36 [code = INFLUENZA VACCINE] Future Scheduled 2022-09-07 COVID-[address] [facility] Test 16:46:36 (#1) [code = COVID-19 VACCINE (#1)] Future Scheduled 2022-09-07 [facility] 16:46:36 screening (procedure) [code = 840958639] Future Scheduled 2022-09-07 [facility] Test 16:46:36 malignant neoplasm of cervix (procedure) [code = 270993520] Future Scheduled 2022-09-07 [facility]ZA [facility]ACCINE [facility] 16:46:36 [code = INFLUENZA VACCINE] Future Scheduled 2022-07-30 [facility]INE [facility] Test 22:48:12 (#1) [code = COVID-19 VACCINE (#1)] Future Scheduled 2022-07-30 [facility] 22:48:12 screening (procedure) [code = 012491875] Future Scheduled 2022-07-30 [facility] Test 22:48:12 malignant neoplasm of cervix (procedure) [code = 831103436] Future Scheduled 2022-07-30 [facility]ZA [facility]ACCINE [facility] 22:48:12 [code = INFLUENZA VACCINE] Future Scheduled 2022-07-23 [facility]INE [facility] Test 22:23:51 (#1) [code = COVID-19 VACCINE (#1)] Future Scheduled 2022-07-23 [facility] 22:23:51 screening (procedure) [code = 922802301] Future Scheduled 2022-07-23 [facility] Test 22:23:51 malignant neoplasm of cervix (procedure) [code = 736693042] Future Scheduled 2022-07-23 [facility]ZA VACCINE [facility] 22:23:51 [code = INFLUENZA VACCINE] Future Scheduled 2022-07-23 [facility]INE [facility] Test 14:05:40 (#1) [code = COVID-19 VACCINE (#1)] Future Scheduled 2022-07-23 [facility] 14:05:40 screening (procedure) [code = 696249651] Future Scheduled 2022-07-23 [facility] Test 14:05:40 malignant neoplasm of cervix (procedure) [code = 466651009] Future Scheduled 2022-07-23 [facility]ZA [facility]ACCINE [facility] 14:05:40 [code = INFLUENZA VACCINE] Future Scheduled 2022-07-16 COVID-19 VACCINE [facility] Test 00:01:34 (#1) [code = COVID-19 VACCINE (#1)] Future Scheduled 2022-07-16 [facility] 00:01:34 screening (procedure) [code = 295540261] Future Scheduled 2022-07-16 [facility] Test 00:01:34 malignant neoplasm of cervix (procedure) [code = 830367008] Future Scheduled 2022-07-16 [facility]ZA VACCINE [facility] 00:01:34 [code = INFLUENZA VACCINE] Future Scheduled 2022-06-20 COVID-19 VACCINE [facility] Test 00:27:46 (#1) [code = COVID-19 VACCINE (#1)] Future Scheduled 2022-06-20 [facility] 00:27:46 screening (procedure) [code = 730710356] Future Scheduled 2022-06-20 [facility] Test 00:27:46 malignant neoplasm of cervix (procedure) [code = 885088130] Future Scheduled 2022-06-20 INFL[facility]ENZA VACCINE [facility] Test 00:27:46 [code = INFLUENZA VACCINE] Future Scheduled 2022-06-12 COVID-19 VACCINE [facility] Test 16:29:41 (#1) [code = COVID-19 VACCINE (#1)] Future Scheduled 2022-06-12 [facility] 16:29:41 screening (procedure) [code = 698865889] Future Scheduled 2022-06-12 INFLUENZA VACCINE [facility] Test 16:29:41 [code = INFLUENZA VACCINE] Future Scheduled 2022-04-29 [facility] 09:57:18 VACCINES (1 of 3 - 3-dose series) [code = HEPATITIS B VACCINES (1 of 3 - 3-dose series)] Future Scheduled 2022-04-29 COVID-19 VACCINE Method[facility] Test 09:57:18 (#1) [code = COVID-19 VACCINE (#1)] Future Scheduled 2022-04-29 [facility] 09:57:18 screening (procedure) [code = 834579899] Future Scheduled 2022-04-29 [facility] Test 09:57:18 malignant neoplasm of cervix (procedure) [code = 157634685] Future Scheduled 2022-04-29 INFLUENZA VACCINE [facility] Test 09:57:18 [code = INFLUENZA VACCINE] Future Scheduled 2022-03-26 [facility] 18:56:00 VACCINES (1 of 3 - 3-dose series) [code = HEPATITIS B VACCINES (1 of 3 - 3-dose series)] Future Scheduled 2022-03-26 [facility] (#1) [code = COVID-19 VACCINE (#1)] Future Scheduled 2022-03-26 [facility] 18:56:00 screening (procedure) [code = 875472166] Future Scheduled 2022-03-26 [facility] Test 18:56:00 malignant neoplasm of cervix (procedure) [code = 246164189] Future Scheduled 2022-03-26 INFLUENZA VACCINE [facility] Test 18:56:00 [code = INFLUENZA VACCINE] Future Scheduled 2022-03-26 [facility] 18:56:00 VACCINES (1 of 3 - 3-dose series) [code = HEPATITIS B VACCINES (1 of 3 - 3-dose series)] Future Scheduled 2022-03-26 [facility] 18:56[facility]00 (#1) [code = COVID-19 VACCINE (#1)] Future Scheduled 2022-03-26 [facility] 18:56:00 screening (procedure) [code = 741335146] Future Scheduled 2022-03-26 [facility] Test 18:56:00 malignant neoplasm of cervix (procedure) [code = 987173203] Future Scheduled 2022-03-26 INFLUENZA VACCINE [facility] Test 18:56:00 [code = INFLUENZA VACCINE] Future Scheduled 2022-03-26 [facility] 18:56:00 VACCINES (1 of 3 - 3-dose series) [code = HEPATITIS B VACCINES (1 of 3 - 3-dose series)] Future Scheduled 2022-03-26 [facility] 18:56:00 (#1) [code = COVID-19 VACCINE (#1)] Future Scheduled 2022-03-26 [facility] 18:56:00 screening (procedure) [code = 181738804] Future Scheduled 2022-03-26 [facility] 18:56:00 malignant neoplasm of cervix (procedure) [code = 014722485] Future Scheduled 2022-03-26 INFLUENZA VACCINE [facility] Test 18:56:00 [code = INFLUENZA VACCINE] Future Scheduled 2022-03-26 [facility] 08:33:14 VACCINES (1 of 3 - 3-dose series) [code = HEPATITIS B VACCINES (1 of 3 - 3-dose series)] Future Scheduled 2022-03-26 COVID-[address] [facility] Test 08:33:14 (#1) [code = COVID-19 VACCINE (#1)] Future Scheduled 2022-03-26 [facility] 08:33:14 screening (procedure) [code = 841264552] Future Scheduled 2022-03-26 [facility] Test 08:33:14 malignant neoplasm of cervix (procedure) [code = 048685291] Future Scheduled 2022-03-26 INFLUENZA VACCINE [facility] Test 08:33:14 [code = INFLUENZA VACCINE] Future Scheduled COVID-[address] [facility] Test (1) [code = COVID-19 VACCINE (1)] Future Scheduled [facility] screening (procedure) [code = 244836008] Future Scheduled [facility] Test malignant neoplasm of cervix (procedure) [code = 253986200] Future Scheduled INFLUENZA VACCINE [facility] Test [code = INFLUENZA VACCINE] Encounters Start End Encounter Admission Attending Care Care Encounter Source Date/Time Date/Time Type Type Clinicians Facility Department ID 2021-04-28 Emergency [facility] [id number] Univers 06:08:31 ity [facility] 2021-04-27 Emergency [facility] [id number] Univers 21:27:31 ity [facility] 2021-04-27 Emergency [facility] [id number] Univers 10:13:04 ity [facility] 2021-04-26 Emergency [facility] [id number] [facility] 2022-10-19 Emergency X LEAH OREMILIA ERT [id number] Univers 08:24:00 11:10:00 IRAMO ity [facility] 2022-10-19 2022-10-19 Emergency Leah [facility] 1.2.840.114 [id number] [facility] 08:24:00 11:10:00 [facility].10 [facility] [id number] [address] 2022-07-22 2022-07-22 Emergency Zaheer, 1.2.840.1 [id number] Methodi 10:01:00 13:05:00 Nash Conteh 97418.1.1 054 s t 3.430.2.7 Hospit a .3.396880 l .8 2022-07-22 2022-07-22 Emergency Zaheer, 1.2.840.1 [id number] Methodi 10:01:00 13:05:00 Nash [place]. 58377.1.1 054 s t 3.430.2.7 Hospit a .3.498079 l .8 2022-07-22 2022-07-22 Travel 1.2.840.1 1.2.685.148 [id number] Methodi 00:00:00 00:00:[address] 3.430.2.7 0.2.7.3.698 Ho spita .3.385022 084.8 l .8 2022-07-22 2022-07-22 Travel 1.2.840.1 1.2.036.113 7609 [id number] Methodi 00:00:00 00:00:[address] 3.430.2.7 0.2.7.3.698 Ho spita .3.859265 084.8 l .8 2022-05-28 2022-05-28 Emergency X TREVER OREMILIA ERT [id number] Univers 17:47:00 22:35:00 MENDY khan [facility] 2022-05-28 2022-05-28 Emergency Lorena Simpson [facility] 1.2.840.114 [id number] [facility] 17:47:00 22:35:00 Mendy Liriano 350.1.13.10 itnirali [facility] 4.2.[address]686 [facility] [id number] [address] 2022-04-22 2022-04-22 Emergency E AZNAUROVA-A MHBL MHBL [id number] [facility]BL 08:53:00 14:18:00 IZA LEBLANC 2022-03-26 2022-03-26 Emergency Sammy 1.2.840.1 [id number] Methodi 07:24:00 08:46:[address] 3.430.2.7 Hospit a .3.613721 l .8 2022-03-26 2022-03-26 Emergency RicardoHaiEulalia 1.2.840.1 [id number] Methodi 07:24:00 08:46:[address] 3.430.2.7 Hospit a .3.911591 l .8 2022-03-26 2022-03-26 Travel 1.2.840.1 1.2.851.367 3469 [id number] Methodi 00:00:00 00:00:[address] 3.430.2.7 0.2.7.3.698 Ho spita .3.746978 084.8 l .8 2022-03-26 2022-03-26 Travel 1.2.840.1 1.2.919.622 2890 [id number] Methodi 00:00:00 00:00:[address] 3.430.2.7 0.2.7.3.698 Ho spita .3.465941 084.8 l .8 2022-02-26 2022-02-27 Emergency X JOSEP OREMILIA ERT [id number] [facility] 22:26:00 00:44:00 AFSANEH khan [facility] 2022-02-26 2022-02-27 Emergency Josep [facility] 1.2.958.769 [id number] [facility] 22:26:00 00:44:00 Afsaneh HUMPHREYS 350.1.13.10 ity of [facility] 4.2.7.2.[address] [facility] [id number] [place] [address] Branch 2022-02-17 2022-02-18 Emergency Nuszen, 1.2.840.1 [id number] Methodi 21:45:00 01:49:[address]303[address]1.[address] 3.430.2.7 Hospit a .3.695716 l .8 2022-02-17 2022-02-18 Emergency Nuszen, 1.2.840.1 [id number] Methodi 21:45:00 01:49:[address]185.1.[address] 3.430.2.7 Hospit a .3.407998 l .8 2022-02-17 2022-02-17 Travel 1.2.840.1 1.2.258.872 1960 [id number] Methodi 00:00:00 00:00:[address] 3.430.2.7 0.2.7.3.698 Ho spita .3.928542 084.8 l .8 2022-02-17 2022-02-17 Travel 1.2.840.1 1.2.865.606 0051 [id number] Methodi 00:00:00 00:00:[address] 3.430.2.7 0.2.7.3.698 Ho spita .3.412470 084.8 l .8 2020-12-31 2020-12-31 Emergency [place], [facility] 1.2.840.114 [id number] [facility] 02:02:00 03:26:00 Akiko Humphreys 350.1.13.10 i ty of [place] 4.2.7.2.686 [facility] [id number] [place] [address] Branch 2020-12-31 2020-12-31 Emergency [place], [facility] 1.2.840.114 [id number] 02:02:00 03:26:00 Akiko [place] 350.1.13.10 [place] 4.2.7.2.686 [place] [id number] 08 2020-11-20 2020-11-20 Emergency [place] [facility] 1.2.069.278 [id number] [facility] 11:47:00 15:01:00 John Humphreys 350.1.13.10 i ty of [place] 4.2.7.2.686 [facility] [id number] [address] 2020-11-20 2020-11-20 [facility] 1.2.145.367 [id number] 11:47:00 15:01:00 John [place] 350.1.13.10 [place] 4.2.7.2.686 [place] [id number] 08 2020-09-26 2020-09-26 Emergency Tricia Herbert [facility] 1.2.840.114 [id number] Univers 18:51:00 22:39:00 Lluvia Humphreys 350.1.13.10 i ty of [place] 4.2.7.2.686 [facility] [id number] [address] 2020-09-26 2020-09-26 Emergency Tricia Herbert [facility] 1.2.840.114 [id number] 18:51:00 22:39:00 Lluvia Roberto 350.1.13.10 [place] 4.2.7.2.686 [place] [id number] [facility] 2020-08-06 2020-08-06 Emergency X [facility] ERT [id number] [facility] 10:13:00 12:49:00 JOHN bill of [facility] 2020-08-01 2020-08-03 [facility] [id number] 09:14[facility]00 03[facility]39[facility]32 [facility] 2020-07-17 2020-07-17 Emergency [place] [facility] 1.2.840 .114 [id number] Univers 05:53:00 08:59:00 Dani Kauffman 350.1.13.10 ity of [place] 4.2.7.2.686 [facility] [id number] Medi scott [address] 2020-07-17 2020-07-17 Emergency [place] [facility] 1.2.840 .114 [id number] 05:53:00 08:59:00 Dani Kauffman 350.1.13.10 [place] 4.2.7.2.686 [place] [id number] 084 Results Test Description Test Time Test Comments Results Result Comments Source POCT TEST 2022-10-19 15:07:00 Test Item Value Reference Range Interpretation Comme nts POCT PREG (test code = 1605) negative On board controls acceptable with C Line (test code = 3574) present POCT PREG LOT # (test code = 3575) [id number] POCT PREG TEST DATE (test code = 3576) 02/03/2024 Lab Interpretation (test code = 87718-0) [facility] (70991)2022-05-29 00:30:52 Test Item Value Reference Range Interpretation Comments NA (test code = 137 mmol/L 135-145 5514675971) K (test code = 3.9 mmol/L 3.5-5.0 9382364169) CL (test code = 107 mmol/L 98-108 0646744783) CO2 TOTAL (test code = 21 mmol/L 23-31 L 0302423516) AGAP (test code = 2-16 1102873601) BUN (test code = 9 mg/dL 7-23 1341105883) GLUCOSE (test code = 106 mg/dL 70-110 4411974802) CREATININE (test code = 0.81 mg/dL 0.50-1.04 5957911670) TOTAL BILI (test code = 0.4 mg/dL 0.1-1.8 9392362683) CALCIUM (test code = 8.7 mg/dL 8.6-10.6 7428709619) T PROTEIN (test code = 6.8 g/dL 6.3-8.2 5496448534) ALBUMIN (test code = 4.2 g/dL 3.5-5.0 9636909177) ALK PHOS (test code = 40 U/L 34-122 2935425365) ALTv (test code = 19 U/L 5-35 1742-6) AST(SGOT) (test code = 15 U/L 13-40 6239306361) eGFR (test code = mL/min/1.73m2 0547700212) TOBI (test code = TOBI) Association of [...] tests). Lab Interpretation Abnormal (test code = 75009-6) [facility] WITH [id number] 00:15:52 Test Item Value Reference Range Interpretation Comments WBC (test code = See_Comment [Automated message] 6690-2) The system [employer] generated this result transmitted ref erence range: 4.30 - 1 1.10 10*3/?L. The re ference range was not u sed to interpret this result as normal/abnor mal. RBC (test code = See_Comment [Automated message] 789-8) The system [employer] generated this result transmitted ref erence range: [...] RDW-SD (test code 42.8 fL 39.0-49.9 = 64230-1) RDW-CV (test code 13.1 % 12.0-15.5 = 788-0) PLT (test code = See_Comment [Automated message] 777-3) The system [employer] h generated this result transmitted ref erence range: 166 - 35 8 10*3/?L. The re ference range was not u sed to interpret this result as normal/abnor mal. MPV (test code = 9.5 fL 9.5-12.9 11729-6) NRBC/100 WBC (test See_Comment [Automat ed message] code = 2430212338) The syste m which generated this result transmitted ref erence range: 0.0 - 10 .0 /100 WBCs. The refer ence range was not u sed to interpret this result as normal/abnor mal. NRBC x10^3 (test See_Comment [Automated message] code = 3159685063) The syste m which generated this result transmitted ref erence range: 10*3/?L. The reference range was not used to interpr et this result as normal/abnormal . GRAN MAT (NEUT) % 59.3 % (test code = 770-8) IMM GRAN % (test 0.10 % code = 2968444396) LYMPH % (test code 29.5 % = 736-9) MONO % (test code 7.1 % = 5905-5) EOS % (test code = 3.1 % 713-8) BASO % (test code 0.9 % = 706-2) GRAN MAT 4.17 10*3/uL 1.88-7.09 x10^3(ANC) (test code = 2309247570) IMM GRAN x10^3 0.00-0.06 (test code = 7605280406) LYMPH x10^3 (test 2.08 10*3/uL 1.32-3.29 code = 731-0) MONO x10^3 (test 0.50 10*3/uL 0.33-0.92 code = 742-7) EOS x10^3 (test 0.22 10*3/uL 0.03-0.39 code = 711-2) BASO x10^3 (test 0.06 10*3/uL 0.01-0.07 code = 704-7) [facility] [id number] 23:53:00 Test Item Value Reference Range Interpretation Comments POCT PREG (test code = 1605) negative On board controls acceptable with present C Line (test code = 3574) POCT PREG LOT # (test code = 3575) [id number] POCT PREG TEST DATE (test 09/26/2023 code = 3576) Lab Interpretation (test code = Normal 27970-4) [facility] CenterTHYROID STIMULATING [id number] 05:23:28 Test Item Value Reference Range Interpretation Comments TSH (test code = See_Comment [Automated message] 9095157768) The system [employer] generated this result transmitted ref erence range: 0.45 - 4 .70 mIU/L. The refe rence range was not u sed to interpret this result as normal/abnor mal. Lab Interpretation (test Normal code = 67437-8) [facility] CenterTROPONIN [id number] 05:05:05 Test Item Value Reference Interpretation Comments Range TROPONIN I (test 0.006 ng/mL See_Comment [Automated code = 9272502694) message] The system which generated this result [...] biotin. Lab Interpretation Normal (test code = 69380-0) [facility] [id number] 04:56:00 Test Item Value Reference Range Interpretation Comments POCT PREG (test code = 1605) negative Lab Interpretation (test code = Normal 57893-3) [facility]. METABOLIC PANEL (66332)2022-02-27 04:46:44 Test Item Value Reference Range Interpretation Comments NA (test code = 137 mmol/L 135-145 4734233024) K (test code = 3.7 mmol/L 3.5-5 8105448358) CL (test code = 102 mmol/L 98-108 3652424002) CO2 TOTAL (test code 26 mmol/L 23-31 = 9954028021) AGAP (test code = 2-16 2381577521) BUN (test code = 8 mg/dL 7-23 3336396616) GLUCOSE (test code = 96 mg/dL 70-110 8959783830) CREATININE (test code 0.77 mg/dL 0.5-1.04 = 9911783159) TOTAL BILI (test code 0.4 mg/dL 0.1-1.1 = 1135292487) CALCIUM (test code = 9.2 mg/dL 8.6-10.6 8808711124) T PROTEIN (test code 7.2 g/dL 6.3-8.2 = 6202227157) ALBUMIN (test code = 4.5 g/dL 3.5-5 0549537849) ALK PHOS (test code = 58 U/L 34-122 0766703954) ALTv (test code = 30 U/L 5-35 1742-6) AST(SGOT) (test code 17 U/L 13-40 = 4478050624) eGFR (test code = mL/min/1.73m2 0944753617) TOBI (test code = TOBI) Association of [...] or urine or abnormalities in imaging tests). [facility] CenterLIPASE2022-09-02 04:46:44 Test Item Value Reference Range Interpretation Comments LIPASE (test code = 6937504900) 91 U/L 0-220 Lab Interpretation (test code = Normal 03057-5) [facility] CenterCB WITH [id number] 04:33:23 Test Item Value Reference Range Interpretation Comments WBC (test code = See_Comment [Automated 5056-2) message] The sy stem which generated this result transmitted reference range : 4.30 - 11.10 10*3/?L. The reference range was not used to interpret this result as normal/abnormal . RBC (test code = See_Comment [Automated 320-8) message] The sy stem which generated this [...] RDW-SD (test code = 41.0 fL 39-49.9 29068-3) RDW-CV (test code = 13.1 % 12-15.5 788-0) PLT (test code = See_Comment H [Automated 777-3) message] The sy stem which generated this result transmitted reference range : 166 - 358 10*3/ ?L. The reference r shira was not used to interpret this result as normal/abnormal . MPV (test code = 10.1 fL 9.5-12.9 16823-8) NRBC/100 WBC (test See_Comment [Automat ed code = 9428251209) message] The system which generated this result transmitted reference range : 0.0 - 10.0 /100 WBCs. The refer ence range was not u sed to interpret th is result as normal/abnormal . NRBC x10^3 (test code See_Comment [Auto mated = 4337705188) message] The s ystem which generated this result transmitted reference range : 10*3/?L. The reference range was not used to interpret this result as normal/abnormal . GRAN MAT (NEUT) % 52.2 % (test code = 770-8) IMM GRAN % (test code 0.30 % = 3440528148) LYMPH % (test code = 37.9 % 736-9) MONO % (test code = 5.9 % 5905-5) EOS % (test code = 3.1 % 713-8) BASO % (test code = 0.6 % 706-2) GRAN MAT x10^3(ANC) 4.83 10*3/uL 1.88-7.09 (test code = 0803738277) IMM GRAN x10^3 (test 0.03 10*3/uL 0-0.06 code = 7235129531) LYMPH x10^3 (test code 3.51 10*3/uL 1.32-3.29 H = 731-0) MONO x10^3 (test code 0.55 10*3/uL 0.33-0.92 = 742-7) EOS x10^3 (test code = 0.29 10*3/uL 0.03-0.39 711-2) BASO x10^3 (test code 0.06 10*3/uL 0.01-0.07 = 704-7) Lab Interpretation Abnormal (test code = 18159-5) [facility] GROUP [id number] 07:59:00 Test Item Value Reference Range Interpretation Comments Streptococcus pyogenes (group A) Negative Negative antigen (test code = 66352-8) Lab Interpretation (test code = Normal 74727-1) [facility] CenterCT HEAD WO [id number] 18:21:18No acute findings. HISTORY:Head trauma, mod-severe hit left head, near syncope, persistentsevere headache and dizziness TECHNIQUE: Noncontrast head CT was performed. COMPARISON:None FINDINGS: The ventricles and sulci are appropriate for patient's age. There is no midline shift. The basal cisterns are preserved. No largevascular territory infarction, intracranial hemorrhage or mass effect isseen. The extracranial tissues demonstrate no acute findings. [facility], Radiant Results Inft User - 11/20/2020 1:22PM CDT HISTORY:Head trauma, mod-severe hit left head, near syncope, persistentsevere headache and dizziness TECHNIQUE: Noncontrast head CT was performed.COMPARISON:NoneFINDINGS:The ventricles and sulci are appropriate for patient's age.There is no midline shift. The basal cisterns are preserved. No largevascular territory infarction, intracranial hemorrhage or mass effect isseen.The extracranial tissues demonstrate no acute findings.IMPRESSIONNo acute findings.[facility] CenterBASI METABOLIC PANEL (NA, K, CL, CO2, GLUCOSE, BUN, CREATININE, CA)2020-11-20 18:00:40 Test Item Value Reference Range Interpretation Comments NA (test code = 137 mmol/L 135-145 0230908801) K (test code = 4.2 mmol/L 3.5-5.0 2856473171) CL (test code = 104 mmol/L 98-108 0321171924) CO2 TOTAL (test code = 22 mmol/L 23-31 L 4300311523) AGAP (test code = 2-16 2602675574) BUN (test code = 10 mg/dL 7-23 0229833270) GLUCOSE (test code = 150 mg/dL 70-110 H 2891539078) CREATININE (test code = 0.59 mg/dL 0.50-1.04 2085072575) CALCIUM (test code = 9.5 mg/dL 8.6-10.6 5022180679) eGFR (test code = mL/min/1.73m2 1265076757) TOBI (test code = TOBI) Association of [...] tests). Lab Interpretation Abnormal (test code = 68258-1) [facility] CenterPOCT [id number] 17:50:00 Test Item Value Reference Range Interpretation Comments POCT PREG (test code = 1605) negative On board controls acceptable with present C Line (test code = 3574) POCT PREG LOT # (test code = 3575) [id number] POCT PREG TEST DATE (test 05/27/2022 code = 3576) Lab Interpretation (test code = Normal 08048-2) [facility] WITH [id number] 17:32:17 Test Item Value Reference Range Interpretation Comments WBC (test code = See_Comment [Automated 5090-2) message] The sy stem which generated this [...] RDW-SD (test code = 40.4 fL 39.0-49.9 20885-6) RDW-CV (test code = 13.0 % 12.0-15.5 788-0) PLT (test code = See_Comment H [Automated 777-3) message] The sy stem which generated this result transmitted reference range : 166 - 358 10*3/ ?L. The reference r shira was not used to interpret this result as normal/abnormal . MPV (test code = 9.5 fL 9.5-12.9 55988-9) NRBC/100 WBC (test See_Comment [Automat ed code = 4783093954) message] The system which generated this result transmitted reference range : 0.0 - 10.0 /100 WBCs. The refer ence range was not u sed to interpret th is result as normal/abnormal . NRBC x10^3 (test code <0.01 See_Comment [Auto mated = 0023383436) message] The s ystem which generated this result transmitted reference range : 10*3/?L. The reference range was not used to interpret this result as normal/abnormal . GRAN MAT (NEUT) % 83.0 % (test code = 770-8) IMM GRAN % (test code 0.70 % = 2653863583) LYMPH % (test code = 12.5 % 736-9) MONO % (test code = 3.7 % 5905-5) EOS % (test code = 0.0 % 713-8) BASO % (test code = 0.1 % 706-2) GRAN MAT x10^3(ANC) 8.41 10*3/uL 1.88-7.09 H (test code = 0549832496) IMM GRAN x10^3 (test 0.07 10*3/uL 0.00-0.06 H code = 3444648889) LYMPH x10^3 (test code 1.26 10*3/uL 1.32-3.29 L = 731-0) MONO x10^3 (test code 0.37 10*3/uL 0.33-0.92 = 742-7) EOS x10^3 (test code = <0.03 0.03-0.39 L 711-2) BASO x10^3 (test code <0.03 0.01-0.07 = 704-7) Lab Interpretation Abnormal (test code = 08824-9) [facility] CenterPOCT [id number] 02:56:00 Test Item Value Reference Range Interpretation Comments POCT PREG (test code = 1605) negative On board controls acceptable with present C Line (test code = 3574) POCT PREG LOT # (test code = 3575) [id number] POCT PREG TEST DATE (test 02/25/2022 code = 3576) Lab Interpretation (test code = Normal 05737-2) [facility] CenterCHLAMYDIA GC DNA BY [id number] 14:24:00 Test Item Value Reference Range Interpretation Comments C. TRACHOMATIS DNA BY Negative Negative PCR (test code = CHLAMTDNA) N. GONORRHOEAE DNA BY Negative Negative Perfor med At: ST PCR (test code = [facility] NGONORDSEBAS) [address] [address] [place], [place] [id number] Rodrigues MD Ph:[phone] - DUP AB/PEL/SC/[id number] 14:12:00 [facility] : 1995 Sex: F Patient Name: FATMATA DEGROOT Unit No: [id number] EXAMS: CPT CODE: [id number] DUP AB/PEL/SC/LTD 57192 PELVIC ULTRASOUND, 08/01/2020: COMPARISON: CT pelvis dated [...] Print D/T: S: 08/01/2020 (1415) [facility] NAME: FATMATA DEGROOT Radiology Department PHYS: ELLISJeffrey Winter Wilkins MD [address] : 1995 AGE: 24 SEX: F [place] [address] LOC: F.ERS PHONE #: [phone] EXAM DATE: 08/01/2020 STATUS: REG ER FAX #: [phone] RAD NO: Page 1 Signed Report Patient Name: FATMATA DEGROOT Unit No: [id number] EXAMS: CPT CODE: [id number] DU P AB/PEL/SC/LTD 21010 (Continued) [facility] NAME: FATMATA DEGROOT Radiology Department PHYS: ELLISJeffrey Winter Wilkins MD [address] : 1995 AGE: 24 SEX: F [place] [address] LOC: F.ERS PHONE #: [phone] EXAM DATE: 08/01/2020 STATUS: REG ER FAX#: [phone] RAD NO: Page 2 Signed Report- US TRANSVAGINAL W/PELVIS 2020-08-01 14:12:00 [facility] : 1995 Sex: F Patient Name: FATMATA DEGROOT Unit No: [id number] EXAMS: CPT CODE: [id number] US TRANSVAGINAL W/PELVIS 55758 PELVIC ULTRASOUND, 08/01/2020: COMPARISON: CT pelvis dated [...] Wild Barrera Technologist: Alexandra Elder RDMS Probe: [id number] Trnscrbd D/ (1412) [email or web address] Orig Print D/T: S: 08/01/2020 (1415) [facility] NAME: FATMATA DEGROOT Radiology Department PHYS: Winter Landaverde MD [address] : 1995 AGE: 24 SEX: F [place], [place] [address] LOC: SANDY PHONE #: [phone] EXAM DATE: 08/01/2020 STATUS: BALTAZAR ER FAX #: [phone] RAD NO: Page 1 Signed Report Patient Name: FATMATA DEGROOT Unit No: [id number] EXAMS: CPT CODE: [id number] US TRANSVAGINAL W/PELVIS 81165 (Continued) The [facility] NAME: FATMATA DEGROOT Radiology Department PHYS: CANALSalima Winter Mccollum MD [address] : 1995 AGE: 24 SEX: F [place], [place] [address] LOC: SANDY PHONE #: [phone] EXAM DATE: 08/01/2020 STATUS: REG ER FAX #: [phone] RAD NO: Page 2 Signed Report- US PELVIS [id number] 14:12:00 [facility] : 1995 Sex: F Patient Name: FATMATA DEGROOT Unit No: [id number] EXAMS: CPT CODE: [id number] US PELVIS COMPLETE 66563 PELVIC ULTRASOUND, 08/01/2020: COMPARISON: CT pelvis dated [...] Alexandra Elder RDMS Probe: Trnscrbd D/ (1412) [email or web address] Orig Print D/T: S: 08/01/2020 (1415) [facility] NAME: FATMATA DEGROOT Radiology Department PHYS: Winter Landaverde MD [address] : 1995 AGE: 24 SEX: F [place] [address] LOC: F.ERS PHONE #: [phone] EXAM DATE: 08/01/2020 STATUS: REG ER FAX #: [phone] RAD NO: Page1 Signed Report Patient Name: FATMATA DEGROOT Unit No: [id number] EXAMS: CPT CODE: [id number] US PELVIS COMPLETE 07327 (Continued) [facility] NAME: FATMATA DEGROOT Radiology Department PHYS: ELLIS.Winter Ortiz MD [address] : 1995 AGE: 24 SEX: F [place] [address] LOC: Saran.ERS PHONE #: [phone] EXAM DATE: 08/01/2020 STATUS: REG ER FAX #: [phone] RAD NO: Page 2 Signed Report- CT ABD PELVIS W/O [id number] 10:58:00[facility] : 1995 Sex: F Patient Name: FATMATA DEGROOT Unit No: [id number] EXAMS: CPT CODE: [id number] CT ABD PELVIS W/O CONT 25113 CT ABDOMEN/CT STONE SURVEY WITHOUT CONTRAST, 08/01/2020 [...] right middle lobe pulmonary nodule. [facility] NAME: FATMATA DEGROOT Radiology Department PHYS: Winter Landaverde MD [address] : 1995 AGE: 24 SEX: F [place], [place] [address] LOC: SANDY PHONE #: [phone] EXAM DATE: 08/01/2020 STATUS: REG ER FAX #: [phone] RAD NO: Page 1 Signed Report 1 Patient Name: FATMATA DEGROOT Unit No: [id number] EXAMS: CPT CODE: [id number] CT ABD PELVIS W/O CONT 77883 (Continued) CT PELVIS WITHOUT CONTRAST: No opaque [...] 13.28 DLP: 653.43 Trnscrbd D/ (1058) [email or web address] [facility] NAME: FATMATA DEGROOT Radiology Department PHYS: CANAL. Winter Wilkins MD [address] : 1995 AGE: 24SEX: F [place] [address] LOC: .ERS PHONE #: [phone] EXAM DATE: 08/01/2020 STATUS: REG ER FAX #: [phone] RAD NO: Page 2 Signed Report 1 Patient Name: Scott DEGROOT No: [id number] EXAMS: CPT CODE: [id number] CT ABD PELVIS W/O CONT 55651 (Continued) Orig Print D/T: S: 08/01/2020 (1101) [facility] NAME: FATMATA DEGROOT Radiology Department PHYS: CANAL. Winter Mccollum MD [address] : 1995 AGE: 24 SEX: F [place] [address] LOC: .ERS PHONE #: [phone] EXAM DATE: 08/01/2020 STATUS: REG ER FAX #: [phone] RAD NO: Page 3 Signed Report 1UA RFLX MICR CULT IF [id number] 10:04:00 Test Item Value Reference Range Interpretation [...] culture: Suprapubic PainSpecimen Description: CLEAN CATCHUR HCG [id number] 10:04:00 Test Item Value Reference Range Interpretation [...] Description: CLEAN CATCHUA RFLX MICR CULT IF [id number] 10:03:00 Test Item Value Reference Range Interpretation [...] culture: Suprapubic PainSpecimen Description: CLEAN CATCHUR HCG [id number] 10:03:00 Test Item Value Reference Range Interpretation Comments UR HCG QUAL (test code = HCGQLU) Indication for culture: Suprapubic PainSpecimen Description: CLEAN CATCH [id number] 14:39:00 Test Item Value Reference Range Interpretation Comments APPEARANCE (test code = Hazy Clear A 3444182016) COLOR (test code = Yellow Yellow 4110267565) PH (test code = 4.8-8.0 4784517930) SP GRAVITY (test code = 1.003-1.030 4595870072) GLU U QUAL (test code = Normal Normal 7293724926) BLOOD (test code = Negative Negative INTERFERE NCE FROM 7095231481) ASCORBIC ACID M AY CAUSE FALSE NEG ATIVE RESULT KETONES (test code = Negative Negative 8834533972) PROTEIN (test code = Negative Negative 2887-8) UROBILIN (test code = Normal Normal 8129105849) BILIRUBIN (test code = Negative Negative 0371633455) NITRITE (test code = Negative Negative 4076738691) LEUK SILVINO (test code = Negative Negative 8970561617) RBC/HPF (test code = See_Comment [Autom ated message] 7693972642) The system [employer] generated this result transmitted ref erence range: 0 - 3 HP F. The reference range was not used to int erpret this result as normal/abnormal . WBC/HPF (test code = <1 See_Comment [Autom ated message] 5924649793) The system [employer] generated this result transmitted ref erence range: 0 - 5 HP F. The reference range was not used to int erpret this result as normal/abnormal . BACTERIA (test code = Few Negative A 8412828825) MUCOUS (test code = Slight Negative LPF A 2095472746) SQ EPITH (test code = HPF 3023980512) Lab Interpretation (test Abnormal code = 14292-8) [facility]PO[facility] [id number] 14:08:00 Test Item Value Reference Range Interpretation Comments POCT PREG (test code = 1605) negative On board controls acceptable with present C Line (test code = 3574) POCT PREG LOT # (test code = 3575) [id number] POCT PREG TEST DATE (test 2022-02-25 code = 3576) Lab Interpretation (test code = Normal 15481-0) [facility] WITH [id number] 12:41:00 Test Item Value Reference Range Interpretation Comments WBC (test code = See_Comment [Automated 4790-2) message] The sy stem which generated this result transmitted reference range : 4.30 - 11.10 10*3/?L. The reference range was not used to interpret this result as normal/abnormal . RBC (test code = See_Comment [Automated 938-8) message] The sy stem which generated this [...] RDW-SD (test code = 40.8 fL 39-49.9 04917-2) RDW-CV (test code = 13.0 % 12-15.5 788-0) PLT (test code = See_Comment H [Automated 167-3) message] The sy stem which generated this result transmitted reference range : 166 - 358 10*3/ ?L. The reference r shira was not used to interpret this result as normal/abnormal . MPV (test code = 9.5 fL 9.5-12.9 59546-9) NRBC/100 WBC (test See_Comment [Automat ed code = 6306423257) message] The system which generated this result transmitted reference range : 0.0 - 10.0 /100 WBCs. The refer ence range was not u sed to interpret th is result as normal/abnormal . NRBC x10^3 (test code <0.01 See_Comment [Auto mated = 1702778672) message] The s ystem which generated this result transmitted reference range : 10*3/?L. The reference range was not used to interpret this result as normal/abnormal . GRAN MAT (NEUT) % 49.7 % (test code = 770-8) IMM GRAN % (test code 0.40 % = 8012478650) LYMPH % (test code = 37.6 % 736-9) MONO % (test code = 6.3 % 5905-5) EOS % (test code = 5.4 % 713-8) BASO % (test code = 0.6 % 706-2) GRAN MAT x10^3(ANC) 4.65 10*3/uL 1.88-7.09 (test code = 8291816917) IMM GRAN x10^3 (test 0.04 10*3/uL 0-0.06 code = 1109708420) LYMPH x10^3 (test code 3.52 10*3/uL 1.32-3.29 H = 731-0) MONO x10^3 (test code 0.59 10*3/uL 0.33-0.92 = 742-7) EOS x10^3 (test code = 0.51 10*3/uL 0.03-0.39 H 711-2) BASO x10^3 (test code 0.06 10*3/uL 0.01-0.07 = 704-7) Lab Interpretation Abnormal (test code = 64095-1) [facility] W/AUTO [id number] 07:27:00 Test Item Value Reference Range Interpretation [...] NORMAL code = PLTMR) AG HEPATITIS B [id number] 04:15:00 Test Item Value Reference Range Interpretation Comments AG HEPATITIS B SURFACE (test code NONREACTIVE NONREACTIVE = HBSAG) AB HEPATITIS C [id number] 04:15:00 Test Item Value Reference Range Interpretation Comments AB HEPATITIS C (test code = NONREACTIVE NONREACTIVE HCVAB) SIGNAL TO CUTOFF (test code = 0.13 <0.80 N CUTOFF) RUBELLA [id number] 04:15:00 Test Item Value Reference Range Interpretation Comments RUBELLA SCREEN 70.2 IUnit/ml Results >10. 0IUnits/ml (test code = are considered positive RUBSC) inaccordance wi th the CLSI guidelines and based on the WH O International S tandard for Anti-Rubell a serum as anindicator of immune status and a br eakpoint to detect mostseropositiv e persons. AB [id number] 04:15:00 Test Item Value Reference Range Interpretation Comments AB TREPONEMA (test code = TREPAB) NONREACTIVE NONREACTIVE AG HEPATITIS B [id number] 04:00:00 Test Item Value Reference Range Interpretation Comments AG HEPATITIS B SURFACE (test code NONREACTIVE NONREACTIVE = HBSAG) AB HEPATITIS C [id number] 04:00:00 Test Item Value Reference Range Interpretation Comments AB HEPATITIS C (test code = HCVAB) NONREACTIVE SIGNAL TO CUTOFF (test code = CUTOFF) <0.80 RUBELLA [id number] 04:00:00 Test Item Value Reference Range Interpretation Comments RUBELLA SCREEN 70.2 IUnit/ml Results >10. 0IUnits/ml (test code = are considered positive RUBSC) inaccordance wi th the CLSI guidelines and based on the [employer] S tandard for Anti-Rubell a serum as anindicator of immune status and a br eakpoint to detect mostseropositiv e persons. AB [id number] 04:00:00 Test Item Value Reference Range Interpretation Comments AB TREPONEMA (test code = TREPAB) NONREACTIVE NONREACTIVE CBC W/AUTO [id number] 00:36:00 Test Item Value Reference Range Interpretation [...] REQUIRED (test NORMAL NORMAL code = PLTMR) Notes Date/Time Note Provider Source 2020-08-01 09:27:00-00:00 [facility] ([facility]) EMERGENCY PROVIDER REPORT REPORT#:[id number] REPORT STATUS: Signed DATE:08/01/20 TIME: 926 PATIENT: FATMATA DEGROOT UNIT #: [id number] ROOM/BED: AGE: 24 SEX: F PCP PHYS: Wild Barrera MD SERVICE AUTHOR: Winter Mccollum MD * ALL edits or amendments must be made on the el ectronic/computer document * HPI-General Illness Free Text HPI Notes Free Text HPI Notes 24-year-old lady presenting to the emergency department for bilateral back pain and loose bowel movements ongoing since yesterda y. Patient states pain is in her lower back she had 4 epi sodes of loose stool identifies pain is 8 out of 10 cramping like constant. Unable to get comfortabl e. There is no alleviating or relieving factors. Patient's has taken NSAIDs bu t noticed that she has been having some dark stool. Picture that patient pro vided looks like dark brown. Surgery Smoker Allergic to Stadol Medications include trazodone and Xanax Review of systems -Constitutional Denies: Fever. Chills. -GI Denies: Nausea, Vomiting. Abdominal pain. consti pation + Diarrhea - Denies: Dysuria, Hematuria, + Increased urinary frequency -Musculoskeletal Denies: Extremity pain, Ext Swelling +back pain -Skin Denies: Rash, Swelling. -Neurologic Denies: Numbness, Tingling. -Eyes Denies:visual loss, blurred vision -Respiratory Denies: Shortness of breath. dyspnea on exertion -Cardiovascular Denies: Chest pain, Dyspnea on exertion, Edema. -Allergy: Denies Hives, Itching Physical exam General/Const General/Const Awake, Alert MS Head Head Atraumatic, Normocephalic Eyes Eyes Atraumatic, No scleral icterus MS Neck Neck Atraumatic, No meningismus, Full range of motion neck easily mobile Resp/Chest no labored bs, no audible wheezing Cardiovascular Cardiovascular no cyanosis, Ext: moving all 4 ext, no swelling/ cyanosis not ed on UE Bl Skin Skin no apparent rashes, Dry, Intact Neurologic Neurologic Oriented X3, Speech NL, Gait NL ENT Atraumatic, Airway patent, Ext aud canal NL, Back No midline tenderness to palpation positive cost overtebral tenderness bilaterally, Abdomen soft nontender nondistended Rectal exam normal external, no stool in the vau lt, unable to obtain a sample for fecal occult test MDM 24-year-old lady HPI physical exam as above Vital signs stable 1. Micro 2. Meds 3. Reassess General Initial Greet Date/Time 08/01/20 0917 Presentation Chief Complaint Back pain Review of Systems ROS Statements All systems rev neg except as marked. Past Medical History - Adult Stated Complaint BACK PAIN,DARK AND LOOSE STOOL, NOT Allergies Coded Allergies: butorphanol (From STADOL) (Intermediate, tachyca rdic 08/01/20) codeine (Mild, nausea, headache 07/16/18) Home Medications Discontinued Scripts HYDROcodone/APAP (NORCO 5/325) 1 TAB PO Q6H PRN PRN ABDOMINAL CRAMPS/PAIN HYDROcodone/APAP (NORCO 5/325) 1 TAB PO Q6H PRN PRN ABDOMINAL CRAMPS/PAIN # 20 TAB Prov: 07/19/18 DC: 08/01/20 0946 Patient stopped taking IBUPROFEN (MOTRIN) 600 MG PO Q6H PRN PRN MILD PA IN (SCORE 1 - 3) IBUPROFEN (MOTRIN) 600 MG PO Q6H PRN PRN MILD P AIN (SCORE 1 - 3) #30 TAB Prov: 07/19/18 DC: 08/01/20 0946 Patient stopped taking DOCUSATE SODIUM (COLACE) 200 MG PO BEDTIME PRN C ONSTIPATION DOCUSATE SODIUM (COLACE) 200 MG PO BEDTIME PRN CONSTIPATION #30 CAP Prov: 07/19/18 DC: 08/01/20 0946 Patient stopped taking Reported Medications ALPRAZolam (XANAX) traZODone (DESYREL) Discontinued Reported Medications PNV WITH FE FUMARATE/FA () 1 TAB PO NEVIN Y Physical Exam Vital Signs Vital Signs First Documented: Result Date Time Pulse Ox 99 08/01 924 B/P 164/84 08/01 924 B/P Mean 110 08/01 924 O2 Delivery Room air 08/01 924 Temp 36.6 08/01 924 Pulse 107 08/01 924 Resp 18 08/01 924 Last Documented: Result Date Time Pulse Ox 98 08/01 1511 B/P 118/71 08/01 151 B/P Mean 86 08/01 151 Temp 36.9 08/01 151 Pulse 94 08/01 151 Resp 18 08/01 151 O2 Delivery Room air 08/01 924 Review of Vital Signs Reviewed Interpretation Diagnostics Lab Results Interpretation Results Laboratory Tests: 08/01 933 Urines Urine Color (YELLOW) YELLOW Urine Appearance (CLEAR) CLEAR Urine pH (5 - 9) 6.0 Ur Specific [place] (1.001 - 1.035) 1.015 Urine Protein (NEG) NEGATIVE Urine Glucose (UA) (NEG) NEGATIVE Urine Ketones (NEG) NEGATIVE Urine Blood (NEG) 2+ H Urine Nitrite (NEG) NEG Urine Bilirubin (NEG) NEGATIVE Urine Urobilinogen (NEG mg/dL) NEGATIVE Ur Leukocyte Esterase (NEG) NEG Urine RBC (NONE SEEN #/hpf) 3-5 H Urine WBC (NONE SEEN #/hpf) 0-2 Ur Epithelial Cells (RARE - FEW #/HPF) RARE Urine Bacteria (RARE - FEW /HPF) RARE Urine HCG, Qual NEGATIVE Microbiology: Date/Time Procedure - Status Source Growth 08/01 1135 Wet Prep - ORD VAGINAL 08/01 0929 Occult Blood - ORD STOOL Recent Impressions: CAT SCAN - CT ABD PELVIS W/O CONT 08/01 1036 Report Impression - Status: SIGNED Entered: 08/01/2020 1101 IMPRESSION: No opaque renal/ureteral calculi identified. Nonspecific 6 mm right middle lobe pulmonary nod ule. CT PELVIS WITHOUT CONTRAST: No opaque ureteral calculi and/or ureteral dilat ation noted in the pelvis. Visualized bowel loops appear unremarkable witho ut bowel wall thickening. No right lower quadrant inflammatory process noted. Uterus and ovaries are present. No free fluid or lymphadenopathy is seen. There is a small punctate calcification at the b ase of the cecum. Appendix was not visualized. However, no right l ower quadrant inflammatory process was seen. IMPRESSION: No ureteral calculi identified. No acute pelvic abnormality identified. Please see above comments. Impression By: Beatriz Agudelo MD ULTRASOUND - DUP AB/PEL/SC/LTD 08/01 1330 Report Impression - Status: SIGNED Entered: 08/01/2020 1415 IMPRESSION: No acute abnormality identified. Santos ateral ovarian follicles. Impression By: Beatriz Agudelo MD ULTRASOUND - US TRANSVAGINAL W/PELVIS 08/01 1330 Report Impression - Status: SIGNED Entered: 08/01/2020 1415 IMPRESSION: No acute abnormality identified. Santos ateral ovarian follicles. Impression By: Beatriz Agudelo MD ULTRASOUND - US PELVIS COMPLETE 08/01 1330 Report Impression - Status: SIGNED Entered: 08/01/2020 1415 IMPRESSION: No acute abnormality identified. Santos ateral ovarian follicles. Impression By: Beatriz Agudelo MD Re-Evaluation MDM ED Course Medication(s) Ordered Medication(s) Ordered: Autonomic Drugs Sig/Mackenzie Start time Last Medication Dose Route Stop Time Status Admin Cyclobenzaprine HCl 5 MG X1ED STA 08/01 1053 DC 02/ PO 02/ 1200 1126 Central Nervous System Agents Sig/Mackenzie Start time Last Medication Dose Route Stop Time Status Admin Hydrocodone Bitart/ 1 TAB X1ED STA 08/01 1052 D Cr 08/01 Acetaminophen PO 08/01 1053 1109 Ketorolac 30 MG X1ED STA 08/01 1003 DC 02 Tromethamine IM 08/01 1004 1007 Gastrointestinal Drugs Sig/Mackenzie Start time Last Medication Dose Route Stop Time Status Admin Ondansetron Base 4 MG STAT STA 08/01 1052 DC SL 08/01 1053 1109 Patient Discharge Departure Vital Signs/Condition Vital Signs First Documented: Result Date Time Pulse Ox 99 02/ 0925 B/P 164/84 02/ 0925 B/P Mean 110 /04 0925 O2 Delivery Room air 08/01 0925 Temp 36.6 / 0925 Pulse 107 02/04 0925 Resp 18 / 0925 Last Documented: Result Date Time Pulse Ox 98 02/04 1511 B/P 118/71 02/04 1511 B/P Mean 86 02/04 1511 Temp 36.9 02/04 1511 Pulse 94 02/04 1511 Resp 18 02/04 1511 O2 Delivery Room air 02/ 0925 All vital signs available at the time of this en try have been reviewed. Clinical Impression Clinical Impression Primary Impression: Increased urinary frequency Disposition Decision Discharge )( Discharged to Home Yes )( Time 1437 )( Date 08/01/20 Discharge/Care Plan (Auto) Prescriptions Current Visit Scripts traMADol (ULTRAM) 50 MG PO Q6H PRN PRN ACUTE NANNETTE N traMADol (ULTRAM) 50 MG PO Q6H PRN PRN ACUTE PA IN #15 TABS ACETAMINOPHEN (TYLENOL) 1,000 MG PO Q8H 5 Days #24 TABS Follow label instructions for pain or fever. Patient Instructions ED Flank Pain, Uncertain Ca use Additional Instructions Call your primary care doctor for follow-up appo intment. Return to the emergency department with new or worsening sympt oms. Discharge Note I have spoken with the patie nt and/or caregivers. I have explained the patient's condition, diagnoses and maria ines atment plan based on the information available to me at this time. I have answered the patient's and/ or caregiver's questions and addressed any concerns. The patient and/or careg carolann have as good an understanding of the patient 's diagnosis, condition and treatment plan as can be expected at this point. The vital signs have bee n stable. The patient's condition is stable and appr opriate for discharge from the emergency department. The patient will pursue further outpatient evalu ation with the primary care physician or other designated or consulting phys ician as outlined in the discharge instructions. The patient and/or caregivers are agreeable to this plan of care and follow-up instructions have been exp lained in detail. The patient and/or caregivers have received these instructio ns in written format and have expressed an understanding of the discharge inst ructions. The patient and/or caregivers are aware that any significant change in condition or worsening of symptoms should prompt an immediate return to [facility] or the closest emergency department or a call to 911. Electronically Signed by Winter Mccollum MD on at 1907 RPT #:[id number] END OF REPORT 2018-09-12 08:09:00-00:00 [id number] [facility] [address] [address] PATIENT NAME: FATMATA DEGROOT ADMIT DATE: 07/16 ACCOUNT NO: [id number] ROOM NO: [facility] AGE: 22 SEX: F ADMITTING PHYSICIAN: Wild Barrera MD ATTENDING PHYSICIAN: Wild Barrera MD ADMISSION DATE: 07/16/2018 DISCHARGE DATE: 07/19/2018 ADMISSION DIAGNOSES: 1. Term . 2. Previous section. 3. Rupture of membranes. ADDITIONAL DIAGNOSES: 1. Genital herpes. 2. Elevated bile acids. 3. Decelerations and heart rate tracing wa s nonreassuring, heart rate tracing remote from delivery. PROCEDURE PERFORMED: Repeat low transverse gaby paramjit delivery. DISCHARGE MEDICATIONS: Include Delanson, Motrin, an d vitamin. DISPOSITION: The patient discharged home in good condition. DISCHARGE EXAM: Benign with incision noted to be clean, dry, and intact. SUMMARY OF HOSPITAL COURSE: The patient is a 22- year-old male with history of previous x1, ____ desired t rial of labor after previous . She presented with rupture of membrane s; however, ____ course progressed to 3 cm with nonreassuring hear t rate tracing remote from delivery, unable to augment and decision made to proceed with repeat . She underwent repeat as previously dic tated. Postoperatively, the patient did well. She remained afebrile with stable vital signs throughout her hospital course. Her epidural scan on postoperat jeyson day #1 with good pain control. She tolerated regular diet. On postoperative day #2, her epidural was discontinued. She was transitioned to p.o. pain meds. She ambulates without any difficulty and by postop erative day #3, was meeting all postoperative goals. She was discharged home in good condition. DISCHARGE INSTRUCTIONS: Woun d care instructions were discussed with the patient and family. She was scheduled for followup in [facility] office in 2 weeks for incision check. Dictated By: Wild Barrera MD WT: DS:F.MARISOL/ANTONINA/NTS PATIENT NAME: FATMATA DEGROOT [id number] Conf#: [id number]/DID#: [id number] Authenticated by Wild Barrera MD On 2018 03:49:44 PM Electronically Signed by Wild Barrera MD o n 09/12/18 at 1550 PATIENT NAME: FATMATA DEGROOT [id number] 2018-08-10 02:32:00-00:00 [id number] [facility] [address] [address] PATIENT NAME: FATMATA DEGROOT ADMIT DATE: 07/16 ACCOUNT NO: [id number] ROOM NO: .[id number] AGE: 22 SEX: F ADMITTING PHYSICIAN: Wild Barrera MD ATTENDING PHYSICIAN: Wild Barrera MD OPERATION DATE: 07/16/2018 PREOPERATIVE DIAGNOSES: 1. Term . 2. Previous section. 3. Failure to progress in labor. POSTOPERATIVE DIAGNOSES: 1. Term . 2. Previous section. 3. Failure to progress in labor. SURGEON: Wild Barrera MD CONCRETE PUDDLER: Ava Ware. PROCEDURES PERFORMED: Repeat low transverse cesa rean delivery. OPERATIVE FINDINGS: 1. Normal-appearing uterus, ovaries, and tubes. 2. Cephalic male infant, Apgars 8 and 8, weight 7 pounds 1 ounce. 3. Hemostatic. 4. All counts correct. ESTIMATED BLOOD LOSS: 600 mL. ANESTHESIA: Epidural. COMPLICATIONS: None. PATHOLOGY: None. STATEMENT OF MEDICAL NECESSITY: The linette ent is a 22-year-old G2, now P2, at 39 weeks 4 days' gestation, who presented with rupt ure of membranes and previous section, desired a trial of labor. She was on trial of labor; however, had heart rate tracing with deep variables , noted poor progression of labor at 4 cm and decision was made to proceed w ith repeat section. Risks, benefits, alternatives, and indic ations were discussed with the patient and family and they agreed to plan. STATEMENT OF DESCRIPTION OF PROCEDURE: After informed consent was obtained, the patient was taken to the operating room. Adequat e epidural anesthesia was established. She was prepped and draped in usual sterile fashion. Transverse PATIENT NAME: FATMATA DEGROOT [id number] skin incision was made through the previous C-se ction scar, this was carried down to the fascia. Fascia was scored in the mid line. Fascial incision was extended bilaterally. Muscle s dissected off back of the fascia and in the midline. Peritoneal cavity was bluntly enter ed. Bladder flap was created at the level of previous bladder flap. A low tra nsverse hysterotomy was made, this was bluntly extended bilaterally. Fetus was found in cephalic position. head was brought to the hysterotomy. With fundal pressure, head and bod y were delivered. Mouth and nares were bulb suctioned. Cord was doubly clamped, cut, an d fetus passed off for evaluation. Placenta was delivered with fundal m assage. Uterus was exteriorized, wrapped in moist laparotomy sponge and curettaged with dry laparotomy sponge. Hysterotomy was closed with # 1 chromic suture in running-locked fashion. It was irrigated and ester dered hemostatic. A secondary closure was performed with 2-0 Monocryl in imbri cating fashion. This too was irrigated and rendered hemostatic. Uterus was re turned to abdominal cavity. Gutters were copiously irrig ated and suctioned dry. Hysterotomy again inspected and remained hemostatic. Per itoneum was reapproximated with 2-0 chromic suture. Muscles reapproximated with 2-0 chromic suture. Fascia was closed with 0 Vicryl from either side and tied in the midline. Subcut aneous tissue was copiously irrigated and suctioned dry. It was reapproximat ed using plain gut suture. Skin was closed with 3-0 Monocryl in a running s ubcuticular stitch. Wound dressed with Mastisol, Steri -Strips, and occlusive bandage. Blood and clot were evacuated from the uterus an d vagina. The patient was taken to recovery room in good condition. There were no operative or anest hetic complications. Dictated By: Wild Barrera MD WT: OP:F.HIM/SHEGR/NTS Conf#: [id number]/DID#: [id number] Authenticated by Wild Barrera MD On 2018 08:01:31 AM Electronically Signed by Wild Barrera MD o n 08/23/18 at 0801 PATIENT NAME: FATMATA DEGROOT [id number] 2018-07-19 08:15:00-00:00 [facility] ([facility]) OB Postpart Progr Note REPORT#:[id number] REPORT STATUS: Signed DATE:07/19/18 TIME: 814 PATIENT: FATMATA DEGROOT UNIT #: [id number] ROOM/BED: [address] : 94 AGE: 22 SEX: F ATTEND: Yamila Barrera MD ADM AUTHOR: Wild Barrera MD * ALL edits or amendments must be made on the [employer]/computer document * Subjective Subjective EGA weeks/days at delivery: 39 weeks Status/day: post operative (d3) Patient reports: Patient reports: Yes: pain management effective, tolerating po w ell. No: complaints. Objective Nursing Documentation Review Nursing data: The data set between the solid lines has been im ported from nursing documentation. Any exceptions have been noted be low under Provider comments. Feeding preference: Provider comments on imported nursing data: [] General VS: Vital Signs: Date Time Temp Pulse Resp B/P B/P Pulse O2 O2 F low FiO2 Mean Ox Delivery Rate 07/19 0330 98.4 99 18 107/66 07/18 1915 97.3 106 19 95/58 07/18 1600 98.7 109 20 108/72 07/18 1200 98.1 110 20 112/74 07/18 0823 98.0 118 20 105/71 Physical Exam Neuro: Exam: alert, oriented x3 Abdomen: soft, no abnormal tenderness, no guardi ng Incision site: well approximated edges, dry, no drainage, no inflammation Fundus: firm, below the umbilicus Lochia: normal Lower extremities: Edema: trace Diagnosis, Assessment Plan Diagnosis, Assessment Plan Assessment: nml progress Plan: routine care, discharge today at 0816 RPT #:[id number] END OF REPORT 2018-07-18 07:34:00-00:00 [facility] OB Postpart Progr Note REPORT#:[id number] REPORT STATUS: Signed DATE:07/18/18 TIME: 0734 PATIENT: FATMATA DEGROOT UNIT #: [id number] ROOM/BED: [address] : 94 AGE: 22 SEX: F ATTEND: Yamila Barrera MD ADM AUTHOR: Wild Barrera MD * ALL edits or amendments must be made on the [employer]/computer document * Subjective Subjective EGA weeks/days at delivery: 39 weeks Status/day: post operative (d2) Patient reports: Patient reports: Yes: pain management effective, tolerating po w ell. No: complaints. Objective Nursing Documentation Review Nursing data: The data set between the solid lines has been im ported from nursing documentation. Any exceptions have been noted be low under Provider comments. Feeding preference: Provider comments on imported nursing data: [] General VS: Vital Signs: Date Time Temp Pulse Resp B/P B/P Pulse O2 O2 F low FiO2 Mean Ox Delivery Rate 07/18 0524 98.3 110 18 104/73 07/17 2356 97.6 105 18 102/60 07/17 2356 97.6 105 18 102/60 07/178 98.6 119 18 104/63 07/17 1231 98.1 108 20 9620 0811 98.4 120 20 103/67 Physical Exam Neuro: Exam: alert, oriented x3 Abdomen: soft, no abnormal tenderness, no guardi ng Incision site: well approximated edges, dry, no drainage, no inflammation Fundus: firm, below the umbilicus Lochia: normal Lower extremities: Edema: trace Diagnosis, Assessment Plan Diagnosis, Assessment Plan Assessment: nml progress Plan: routine care, circumcision toda y, discharge tomorrow at 0735 RPT #:[id number] END OF REPORT 2018-07-17 12:24:00-00:00 [facility] ([facility]) OB Postpart Progr Note REPORT#:[id number] REPORT STATUS: Signed DATE:07/17/18 TIME: 1224 PATIENT: FATMATA DEGROOT UNIT #: [id number] ROOM/BED: [address] : 94 AGE: 22 SEX: F ATTEND: Yamila Barrera MD ADM AUTHOR: Janee Castro MD * ALL edits or amendments must be made on the [employer]/computer document * Subjective Subjective EGA weeks/days at delivery: 39 weeks Status/day: post operative (1) Patient reports: Patient reports: Yes: normal lochia, pain management effective, tolerating po well. No: complaints. Objective Nursing Documentation Review Nursing data: The data set between the solid lines has been im ported from nursing documentation. Any exceptions have been noted be low under Provider comments. Feeding preference: Provider comments on imported nursing data: [] General VS: Vital Signs: Date Time Temp Pulse Resp B/P B/P Pulse O2 O2 F low FiO2 Mean Ox Delivery Rate 07/17 0811 98.4 120 20 103/67 07/17 0416 98.2 100 18 103/62 07/17 0044 98.6 110 18 122/72 07/16 2040 98.6 110 18 109/74 Physical Exam Lungs: no increased wob Neuro: Exam: alert, oriented x3 Abdomen: soft, no abnormal tenderness, no guardi ng Incision site: well approximated edges, dry, no drainage, no inflammation Fundus: firm, below the umbilicus Lochia: normal Lower extremities: Edema: trace Result Findings/data: Laboratory Tests: 07/17 0600 Hematology WBC (6.6 - 12.1 K/mm3) 12.1 RBC (3.45 - 5.01 M/mm3) 3.51 Hgb (10.7 - 13.9 g/dL) 9.6 L Hct (32.1 - 42.1 %) 30.6 L MCV (84.1 - 94.8 fL) 87 MCH (27 - 35 pg) 27.4 MCHC (32.2 - 34.1 gm/dL) 31.4 L RDW (12.4 - 16.5 %) 15.7 Plt Count (133 - 385 K/mm3) 261 MPV (9.1 - 12.7 fl) 10.4 Neut % (Auto) (56.5 - 79.4 %) 65.2 Lymph % (Auto) (14.3 - 34.3 %) 26.9 [place] % (Auto) (5.1 - 10.4 %) 6.0 Eos % (Auto) (0.1 - 3.0 %) 1.0 Baso % (Auto) (0.1 - 1.0 %) 0.2 Neut # (Auto) (K/mm3) 7.9 Lymph # (Auto) (K/mm3) 3.3 [place] # (Auto) (K/mm3) 0.7 Eos # (Auto) (K/mm3) 0.12 Baso # (Auto) (K/mm3) 0.0 Immature Plt Fraction (0.0 - 10.8 %) 0.0 Diagnosis, Assessment Plan Diagnosis, Assessment Plan Free text A P: POD#1 s/p RLTCS given NRFHT Male, desires circ, plan w/ dr. barrera A+ Hct 35>30.6 meeting early milestones. Electronically Signed by Janee Castro MD on 07/17 at 1225 RPT #:[id number] END OF REPORT 2018-07-16 06:08:00-00:00 [facility] ([facility]) OB Delivery Note REPORT#:[id number] REPORT STATUS: Signed DATE:07/16/18 TIME: 0608 PATIENT: FATMATA DEGROOT UNIT #: [id number] ROOM/BED: [address] : 94 AGE: 22 SEX: F ATTEND: Yamila Barrera MD ADM AUTHOR: Wild Barrera MD * ALL edits or amendments must be made on the el [employer]/computer document * OB Delivery Nursing Documentation Review Nursing data: The data set between the solid lines has been im ported from nursing documentation. Any exceptions have been noted be low under Provider comments. _ ROM date: 07/16/18 ROM time: 0123 Membranes rupture method: SROM Amniotic fluid color: Clear Amniotic fluid amount: EGA (weeks/days): EGA at admit (weeks): EGA at delivery (weeks): Steroids prior to arrival: Antibiotic prophylaxis given: [place] evaluation at delivery: Delivery date infant A: Delivery time A: Birthweight (gm) infant A: Weight (lb) infant A: Weight (oz) infant A: Gender A: Male 1 minute infant A: 5 minutes A: 10 minutes A: Cord pH obtained A: Vacuum time infant A: Vacuum # pulls A: Vacuum # popoffs infant A: __ Provider comments on imported nursing data: [] Pre-delivery evaluation at delivery: NRP certified nisa medina EGA (weeks/days): 39 weeks Baby A Information Baby A information Delivery date: 07/16/18 Delivery time: 0635 status: live born Wt of baby (lbs/oz): 7 Gender: male 1 minute: 8 5 minutes: 8 Presentation: vertex Nuchal cord Baby A Nuchal cord: yes (loose and reduced) Delivery section Abdominal incision: Pfannenstiel Primary indication: previous , failure to progr in labor Priority: indicated (add on) : :attempt/unsuccessful Antibiotic prior to incision: 1 dose )(SCDs applied activated: Yes Incision: low transverse Hemorrhage: no Uterine scar: intact Consent: indication discussed, questions answer ed, pt consent to op delivery Mother's condition: mother stable Infant's condition: infant stable in nursery Op/Inv Proc Note - Brief )( Procedure(s) performed: repeat low transverse c/s )( Primary Surgeon: Agnes Barrera )( Procurement Officer(s): Yasmin Ware )( Pre-procedure diagnosis: prev C/S, early labor, failure to progress in la bor, unable to augment )( Post-procedure diagnosis: same )(Technique/Procedure: LTCS Anesthesia: epidural anesthesia )( Estimated blood loss (ml): 600 )( Finding(s): nl ut/ov/tubes. hemostatic. counts correct Condition: stable at 0703 RPT #:[id number] END OF REPORT 2018-07-16 05:32:00-00:00 [facility] ([facility]) Clinical Note REPORT#:[id number] REPORT STATUS: Signed DATE:07/16/18 TIME: 0532 PATIENT: FATMATA DEGROOT UNIT #: [id number] ROOM/BED: [address] : 94 AGE: 22 SEX: F ATTEND: Yamila Barrera MD ADM AUTHOR: Janee Castro MD * ALL edits or amendments must be made on the [employer]/computer document * Clinical Note Note: 22 yo @ 39w4d presents in labor with SROM and preg c/b C/S x1 (desires TOLAC if laboring), BMI 40, anxiety, elevated bi le acids of 14, HSV pos on valtrex # Labor/SROM - 0000: 50/-3. ctx q1-2 min. 3 decels to 60s/m inimal variability on arrival with recovery - 0120: ROM, clear - 0200: 70/-3. fse placed given prolonged dece l @ 0150. recovery of tracing - 0300: 70/-3. prolonged decel x 5 min with ctx q 1 min. terb x 1 given. Now category 1 tracing. If no change in 2 hours, sta rt pitocin 1x1. epidural in place. - 0445: /-3. deep variab les noted with every contraction. resolved by 0500; however, started to have minimal variability and early decels. + scalp stim. discussed cat 2 tracing and concern of fail TOLAC given minimal change in cervix , decelerations, and baby still high. she would like to proceed with RLTCS MD Nando Electronically Signed by Janee Castro MD on 07/16 at 0535 RPT #:[id number] END OF REPORT 2018-07-16 03:26:00-00:00 [facility] ([facility]) OB Admission / H P REPORT#:[id number] REPORT STATUS: Signed DATE:07/16/18 TIME: 325 PATIENT: FATMATA DEGROOT UNIT #: [id number] ROOM/BED: [address] : 94 AGE: 22 SEX: F ATTEND: Yamila Barrera MD ADM AUTHOR: Janee Castro MD * ALL edits or amendments must be made on the [employer]/computer document * OB Admission H P Hx Chief complaint: uterine contractions HPI: 22 yo @ 39w3d presen ts with ut ctx q1.5-2min. Made change from clinic of to /-3. Was noted to have 3 large varia ble decels on arrival to 60s with minimal variability. Tracing has improved s vicky admission. Preg c/b 1. Hx of 1 prior C/S due to arrest of descent 2. BMI 40 3. Anxiety 4. Elevated Bile Acids of 14 5. hsv pos, on valtrex, no outbreak Conditions of : 1. prior c/s 2. bile ac ids 14 Labs: Blood type: unknown Rh: unknown Rubella: unknown Hepatitis B: unknown HIV: negative RPR: non-reactive STD: unknown GBS: negative Genetic testing: neg claritest Notes: normal anatomy scan, post placenta Past medical history: 1. anx iety 2. bipolar 3. hx of basal cell cancer 4. BMI 40 /obesity Past surgical history: Social history: no alcohol use, no tobacco use, no drug use Medications: Home Medications: Medication Dose/Rte/Freq Days Qty Entered Last Max Daily Dose Reviewed PNV WITH FE 1 TAB PO DAILY 06/27/18 07/16/18 FUMARATE/FA 1631 0115 () Strength: 1 EACH TAB valACYclovir (VALTREX) 500 MG PO DAILY 06/27/18 07/16/18 Strength: 500 MG TAB 1631 0115 Current Hospital Medications: Autonomic Drugs Sig/Mackenzie Start time Last Medication Dose Route Stop Time Status Admin Ephedrine Sulfate 10 MG ASDIR PRN 07/16 0145 AC (ePHEDrine SULFATE IV 09/144 50 MG/ML 1ML AMP) Ephedrine Sulfate 10 MG ASDIR PRN 07/16 0030 A C (ePHEDrine SULFATE IV 09/14 0029 50 MG/ML 1ML AMP) Central Nervous System Agents Sig/Mackenzie Start time Last Medication Dose Route Stop Time Status Admin Fentanyl Citrate 100 MCG ASDIR 07/16 014 CKD (SUBLIMAZE 2 ML) EPIDURAL 09/14 0144 Fentanyl/Bupivacaine 150 ML ASDIR 07/16 0145 AC HCl EPIDURAL 07/18 0137 (fentaNYL/ BUPIVACAINE HCL NS 0.9% - 150ML) Fentanyl Citrate 100 MCG ASDIR 07/16 0030 CKD (SUBLIMAZE 2 ML) EPIDURAL 09/14 0029 Fentanyl/Bupivacaine 150 ML ASDIR 07/16 0030 AC 07/16 HCl EPIDURAL 07/18 002 0115 (fentaNYL/ BUPIVACAINE HCL NS 0.9% - 150ML) Electrolytic, Caloric, And Yanet Sig/Mackenzie Start time Last Medication Dose Route Stop Time Status Admin Lactated Ringer's 1,000 ML ONCE ONE 07/16 014 DC (LACTATED RINGERS) IV 07/16 0204 Lactated Ringer's 250 ML ASDIR 07/16 0145 AC (LACTATED RINGERS) IV 09/14 0144 Lactated Ringer's 1,000 ML ONCE ONE 07/16 003 DC (LACTATED RINGERS) IV 07/16 0049 Lactated Ringer's 250 ML ASDIR 07/16 0030 AC (LACTATED RINGERS) IV 09/14 0029 Dextrose/Lactated 1,000 ML ASDIR 07/16 0015 AC 07/16 Ringer's IV 09/14 0014 0116 (DEXTROSE 5% IN LACTATED RINGERS 1000 ML) Lactated Ringer's 2,000 ML ASDIR PRN 07/16 0015 DC 07/16 (LACTATED RINGERS) IV 0117 Lactated Ringer's 1,000 ML ONCE ONE 07/16 001 DC (LACTATED RINGERS) IV 07/16 0016 Gastrointestinal Drugs Sig/Mackenzie Start time Last Medication Dose Route Stop Time Status Admin Ondansetron HCl 4 MG Q6H PRN PRN 07/16 144 AC (ZOFRAN 2 MG/ML 4 MG IV 09/14 0144 SYR) Ondansetron HCl 4 MG Q6H PRN PRN 07/16 0030 AC 07/16 (ZOFRAN 2 MG/ML 4 MG IV 09/14 0029 0328 SYR) Oxytocics Sig/Mackenzie Start time Last Medication Dose Route Stop Time Status Admin Oxytocin 500 ML ASDIR 07/16 0015 AC (OXYTOCIN 30 UNITS/ IV 07/16 1014 500 ML NORMAL SALINE) Other Sig/Mackenzie Start time Last Medication Dose Route Stop Time Status Admin Pharmacy Profile Note 1 EA ONCE ONE 07/16 0145 DC (EPIDURAL TRAY) [facility] 07/16 0146 Pharmacy Profile Note 1 EA ONCE ONE 07/16 003 DC (EPIDURAL TRAY) [facility] 07/16 30 Pharmacy Profile Note 1 EA ONCE 07/16 14 AC (EPIDURAL TRAY) [facility] 07/19 001 Allergies Coded Allergies: tramadol (Mild, CHEST PAIN 06/27/18) morphine (SWELLING 07/16/18) Review of Systems GI: Reports: abdominal pain. : Reports: pelvic pain, . Systems reviewed negative: allergy/immun, cardio vascular, constitutional, CV, endocrine, ENT, eyes, heme, musculoskeletal, nay ro, psych, respiratory, skin Objective General VS: Last Documented: Result Date Time Pulse Ox 100 07/16 0259 Pulse 100 07/16 0259 B/P Mean 79.0 07/16 0227 B/P 115/55 07/16 022 Temp 99.0 07/16 0217 Physical Exam HEENT: normocephalic w/o injury Lungs: no increased wob Neuro: Exam: alert, oriented x3 Abdomen: gravid, soft Cervical/ exam: Dilatation (cm): 3 Effacement (%): 70 station: - 3 presentation: cephalic Membranes: Membranes: SROM ROM date: 07/16/18 ROM time: 0123 Amniotic fluid: clear Lower extremities: Edema: trace Baby A: Baby A baseline: 135 bpm Baby A variability: moderate 6-25 bpm Baby A accelerations: 15 X 15 Baby A decelerations: variable Result Findings/Data: Laboratory Tests: 07/16 0000 Hematology WBC (6.6 - 12.1 K/mm3) 11.2 RBC (3.45 - 5.01 M/mm3) 4.22 Hgb (10.7 - 13.9 g/dL) 11.6 Hct (32.1 - 42.1 %) 35.9 MCV (84.1 - 94.8 fL) 85 MCH (27 - 35 pg) 27.5 MCHC (32.2 - 34.1 gm/dL) 32.3 RDW (12.4 - 16.5 %) 14.8 Plt Count (133 - 385 K/mm3) 335 MPV (9.1 - 12.7 fl) 10.5 Neut % (Auto) (56.5 - 79.4 %) 63.3 Lymph % (Auto) (14.3 - 34.3 %) 27.0 [place] % (Auto) (5.1 - 10.4 %) 7.4 Eos % (Auto) (0.1 - 3.0 %) 1.3 Baso % (Auto) (0.1 - 1.0 %) 0.4 Neut # (Auto) (K/mm3) 7.1 Lymph # (Auto) (K/mm3) 3.0 [place] # (Auto) (K/mm3) 0.8 Eos # (Auto) (K/mm3) 0.15 Baso # (Auto) (K/mm3) 0.0 Immature Plt Fraction (0.0 - 10.8 %) 0.0 Diagnosis, Assessment Plan Diagnosis, Assessment Plan Free Text A P: 22 yo @ 39w4d presents in labor with SROM and preg c/b C/S x1 (desires TOLAC if laboring), BMI 40, anxiety, elevated bi le acids of 14, 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 ctx q1-2 min. 3 decels to 60s/m inimal variability on arrival with recovery - 0120: ROM, clear - 0200: 3/70/-3. fse placed given prolonged dece l @ 0150. recovery of tracing - 0300: 3/70/-3. prolonged decel x 5 min with ctx q 1 min. terb x 1 given. Now category 1 tracing. If no change in 2 hours, sta rt pitocin 1x1. epidural in place. # Hx of 1 prior C/S due to a rrest of descent - strongly desires TOLAC. Discussed risk of ut rupture, need for emergent c/s. She u nderstands she is not a good candidate. # BMI 40 # Anxiety # Elevated Bile Acids of 14 # hsv pos - on valtrex, no outbreak # Limited PNL - obtained blood type A+, pending ab screen, hep b, rubella Admit to LND MD Nando Electronically Signed by Janee Castro MD on 07/16 at 0339 RPT #:[id number] END OF REPORT"
--- NOTE | 2022-11-18 08:18 | ER ---
Nurse's Notes [facility] Name: Carla Duncan Age: 27 yrs Sex: Female : 1995 Arrival Date: 11/18/2022 Time: 07:52 Bed IW2 Private MD: Diagnosis: Unspecified asthma with (acute) exacerbation Presentation: 11/18 08:09 Chief complaint: Patient states: yesterday i got really sick, cough, headache, sandro ear iw pain, sore throat , ran out of her inhaler. Coronavirus screen: Client presents with at least one sign or symptom that may indicate coronavirus-19. Ebola Screen: Patient negative for fever greater than or equal to 101.5 degrees Fahrenheit, and additional compatible Ebola Virus Disease symptoms Patient denies exposure to infectious person. Patient denies travel to an Ebola-affected area in the 21 days before illness onset. No symptoms or risks identified at this time. Initial Sepsis Screen: Does the patient meet any 2 criteria? No. Patient's initial sepsis screen is negative. Does the patient have a suspected source of infection? No. Patient's initial sepsis screen is negative. Risk Assessment: Do you want to hurt yourself or someone else? Patient reports no desire to harm self or others. 08:09 Method Of Arrival: Ambulatory iw 08:09 Acuity: VENKATESH 4 iw 08:09 Onset of symptoms was November 17, 2022. 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 - Social history:: Smoking status: unknown. Screenin:14 [facility] ED Fall Risk Assessment (Adult) History of falling in the last 3 months, iw including since admission. Abuse screen: Denies threats or abuse. Denies injuries from another. Nutritional screening: No deficits noted. Tuberculosis screening: No symptoms or risk factors identified. Assessment: 08:13 General: Appears in no apparent distress. Behavior is calm, cooperative. Pain: iw Complains of pain in throat, ears. Neuro: Level of Consciousness is awake, alert, obeys commands, Oriented to person, place, time, situation, Moves all extremities. Full function. Cardiovascular: Patient's skin is warm and dry. Respiratory: Airway is patent Respiratory effort is even, unlabored. EENT: Throat Reports pain in right ear and left ear when swallowing. Derm: Skin is intact, is healthy with good turgor. Musculoskeletal: Range of motion: intact in all extremities. 08:35 Respiratory: Breath sounds are clear bilaterally. ll1 Vital Signs: 08:09 BP 102 / 60; Pulse 91; Resp 18 S; Temp 98.5; Pulse Ox 100% on R/A; Weight 77.11 kg; iw Height 5 ft. 0 in. ; 08:09 Body Mass Index 33.20 (77.11 kg, 152.4 cm) iw ED Course: 07:53 Patient arrived in ED. rg4 07:55 [facility]C [facility] snw 07:55 Stephon Hernandez MD is Attending Physician. snw 08:11 Triage completed. iw 08:12 Arm band placed on. iw 08:14 Patient has correct armband on for positive identification. iw 08:22 No provider procedures requiring assistance completed. Patient did not have IV access iw during this emergency room visit. Administered Medications: 08:34 Drug: AZITHromycin PO 500 mg Route: PO; ll1 09:12 Follow up: Response: No adverse reaction ll1 08:34 Drug: predniSONE PO 40 mg Route: PO; ll1 09:12 Follow up: Response: No adverse reaction ll1 08:34 Drug: Famotidine PO 20 mg Route: PO; ll1 09:13 Follow up: Response: No adverse reaction ll1 08:34 Drug: ZyrTEC - Cetirizine PO 10 mg Route: PO; ll1 09:13 Follow up: Response: No adverse reaction ll1 Medication: 08:14 VIS not applicable for this client. iw Outcome: 08:17 Discharge ordered by . snw 08:35 Patient left the ED. ll1 08:35 Discharged to home ambulatory. ll1 08:35 Condition: stable 08:35 Discharge instructions given to patient, Instructed on discharge instructions, follow up and referral plans. medication usage, Demonstrated understanding of instructions, follow-up care, medications, Prescriptions given X x 5 Signatures: Mary Vee, SENIOR PRODUCT CONSULTANT-C SENIOR PRODUCT CONSULTANT-Csnw Mary Damian, RN RN iw Susannah Echevarria rg4 Roberta Coker RN RN ll1 Corrections: (The following items were deleted from the chart) 08:11 08:11 Allergies: Toradol; iw iw 08:12 08:09 Pulse 91bpm; Resp 18bpm; Spontaneous; Pulse Ox 100% RA; Temp 98.5F; 77.11 kg; iw Height 5 ft. 0 in.; BMI: 33.2; iw
--- NOTE | 2022-11-18 08:18 | EDPHYS ---
Physician Documentation [facility] Name: Carla Duncan Age: 27 yrs Sex: Female : 1995 Arrival Date: 11/18/2022 Time: 07:52 Bed IW2 Private MD: ED Physician Stephon Hernandez HPI: 11/18 08:48 This 27 yrs old Female presents to ER via Ambulatory with complaints of snw Shortness Of Breath, Sore Throat, Ear Pain. 08:48 The patient presents with sore throat. The patient describes throat pain as raw, snw scratchy. Onset: The symptoms/episode began/occurred suddenly, yesterday. Severity of symptoms: At their worst the symptoms were moderate. Associated signs and symptoms: Pertinent positives: cough, earache, flu-like symptoms, shortness of breath Sore throat. The patient has experienced similar episodes in the past, multiple times. The patient has not recently seen a physician. 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 - Social history:: Smoking status: unknown. ROS: 08:48 Eyes: Negative for injury, pain, redness, and discharge. snw 08:48 Neck: Negative for injury, pain, and swelling, Cardiovascular: Negative for chest pain, palpitations, and edema. 08:48 Abdomen/GI: Negative for abdominal pain, nausea, vomiting, diarrhea, and constipation, Back: Negative for injury and pain, : Negative for injury, bleeding, discharge, and swelling, MS/Extremity: Negative for injury and deformity, Skin: Negative for injury, rash, and discoloration, Neuro: Negative for headache, weakness, numbness, tingling, and seizure, Psych: Negative for depression, anxiety, suicide ideation, homicidal ideation, and hallucinations. 08:48 Constitutional: Positive for body aches, malaise. 08:48 ENT: Positive for sore throat. 08:48 Respiratory: Positive for cough, shortness of breath, wheezing. Exam: 08:46 Constitutional: This is a well developed, well nourished patient who is awake, alert, snw and in no acute distress. Head/Face: Normocephalic, atraumatic. Eyes: Pupils equal round and reactive to light, extra-ocular motions intact. Lids and lashes normal. Conjunctiva and sclera are non-icteric and not injected. Cornea within normal limits. Periorbital areas with no swelling, redness, or edema. Neck: Trachea midline, no thyromegaly or masses palpated, and no cervical lymphadenopathy. Supple, full range of motion without nuchal rigidity, or vertebral point tenderness. No Meningismus. Chest/axilla: Normal chest wall appearance and motion. Nontender with no deformity. No lesions are appreciated. Cardiovascular: Regular rate and rhythm with a normal S1 and S2. No gallops, murmurs, or rubs. Normal PMI, no JVD. No pulse deficits. Abdomen/GI: Soft, non-tender, with normal bowel sounds. No distension or tympany. No guarding or rebound. No evidence of tenderness throughout. Back: No spinal tenderness. No costovertebral tenderness. Full range of motion. Skin: Warm, dry with normal turgor. Normal color with no rashes, no lesions, and no evidence of cellulitis. MS/ Extremity: Pulses equal, no cyanosis. Neurovascular intact. Full, normal range of motion. Neuro: Awake and alert, GCS 15, oriented to person, place, time, and situation. Cranial nerves II-XII grossly intact. Motor strength 5/5 in all extremities. Sensory grossly intact. Cerebellar exam normal. Normal gait. Psych: Awake, alert, with orientation to person, place and time. Behavior, mood, and affect are within normal limits. 08:46 ENT: External ear(s): are unremarkable, Ear canal(s): are normal, TM's: are normal, Nose: is normal, Mouth: is normal, Posterior pharynx: erythema, that is moderate, Voice: is hoarse. 08:46 Respiratory: the patient does not display signs of respiratory distress, Respirations: normal, Breath sounds: bronchial sounds, rhonchi, wheezing: Vital Signs: 08:09 BP 102 / 60; Pulse 91; Resp 18 S; Temp 98.5; Pulse Ox 100% on R/A; Weight 77.11 kg; iw Height 5 ft. 0 in. ; 08:09 Body Mass Index 33.20 (77.11 kg, 152.4 cm) iw MDM: 08:07 Patient medically screened. snw 08:47 Differential diagnosis: Allergic rhinitis, laryngitis, pharyngitis, tonsillitis, viral snw syndrome asthma exacerbation. Data reviewed: vital signs, nurses notes. Counseling: I had a detailed discussion with the patient and/or guardian regarding: the historical points, exam findings, and any diagnostic results supporting the discharge/admit diagnosis, the need for outpatient follow up, for definitive care, to return to the emergency department if symptoms worsen or persist or if there are any questions or concerns that arise at home. Special discussion: Based on the history and exam findings, there is no indication for further emergent testing or inpatient evaluation. I discussed with the patient/guardian the need to see the primary care provider for further evaluation of the symptoms. Administered Medications: 08:34 Drug: AZITHromycin PO 500 mg Route: PO; ll1 09:12 Follow up: Response: No adverse reaction ll1 08:34 Drug: predniSONE PO 40 mg Route: PO; ll1 09:12 Follow up: Response: No adverse reaction ll1 08:34 Drug: Famotidine PO 20 mg Route: PO; ll1 09:13 Follow up: Response: No adverse reaction ll1 08:34 Drug: ZyrTEC - Cetirizine PO 10 mg Route: PO; ll1 09:13 Follow up: Response: No adverse reaction ll1 Disposition Summary: 11/18/22 08:17 Discharge Ordered Location: Home snw Condition: Stable snw Diagnosis - Unspecified asthma with (acute) exacerbation snw Followup: snw - With: Emergency Department - When: As needed - Reason: Worsening of condition Followup: snw - With: Private Physician - When: 2 - 3 days - Reason: Recheck today's complaints, Continuance of care, Re-evaluation by your physician Discharge Instructions: - Discharge Summary Sheet snw - Asthma, Adult snw Forms: - Work release form snw - Medication Reconciliation Form snw - Thank You Letter snw - Antibiotic Education snw - Prescription Opioid Use snw Prescriptions: - albuterol sulfate 90 mcg/actuation Inhalation HFA Aerosol Inhaler - inhale 2 inhalation by INHALATION route every 4 to 6 hours as needed for snw bronchospasm; 1 Unspecified; Refills: 0, Product Selection Permitted - Zyrtec 10 mg Oral Tablet - take 1 tablet by ORAL route once daily As needed; 20 tablet; Refills: 0, snw Product Selection Permitted - Prednisone 20 mg Oral Tablet - take 2 tablets by ORAL route once daily for 5 days; 10 tablet; Refills: 0, snw Product Selection Permitted - Pepcid 20 mg Oral Tablet - take 1 tablet by ORAL route once daily; 20 tablet; Refills: 0, Product snw Selection Permitted - Zithromax 500 mg Oral Tablet - take 1 tablet by ORAL route once daily for 5 days; 5 tablet; Refills: 0, snw Product Selection Permitted Signatures: Mary Vee FNP-C FNP-[place] Mary Damian, RN RN iw Roberta Coker RN RN ll1 Corrections: (The following items were deleted from the chart) 08:11 08:11 Allergies: Toradol; [facility]
[2022-11-18] MEDS ORDERED: predniSONE 20 MG TAB ONE (08:34)
[2022-11-18] MEDS ORDERED: CETIRIZINE HCL 5 MG TABLET ONE (08:34)
[2022-11-18] MEDS ORDERED: FAMOTIDINE 20 MG TAB ONE (08:34)
[2022-11-18] MEDS ORDERED: AZITHROMYCIN 250 MG TAB ONE (08:34)
== END 2022-11-18 08:35 | disposition home or self-care (01) ==
LOC: ER 07:52
DX: J45.901 Unspecified asthma with (acute) exacerbation (principal)
CPT/HCPCS: J7512

== ENCOUNTER 2022-11-27 14:00 | Emergency (ER) | payer OTHER, SELFPAY ==
--- OUTSIDE RECORDS SUMMARY | 2022-11-27 14:07 | XMS REPORT | Continuity of Care Document ---
:1995 Author Organization [facility] t Address [address] [facility] [place] [address] Care Team Providers Name Role Phone RICKY BANDA Primary Care Physician Unavailable JOHN BYERS Attending Clinician Unavailable John Hyman Attending Clinician Nash Schwab MD Attending Clinician MENDY LIRIANO Attending Clinician Unavailable Calvin AREVALO, Lorena Real Attending Clinician [phone] Mendy Liriano MD Attending Clinician IZA DENSON [...] Expiration Date S shobha MARISOL SANDYR FROM [id number] 2020 [facility] 00:00:00 [facility] [id number] 2019 00:00:00 Problems Condition Condition Condition Status Onset Resolution Last Treating Co mments Source Name Details Category Date Date Treatment Clinician Date Obesity Obesity Disease Active Univers (BMI (BMI 1-16 ity of 30-39.9) 30-39.9) 00:00: [place] 00 Medical Branch Urinary Urinary Disease Active [...] 2-04 [facility] [place] butorpha DA Active [place] tachycardic [facility] nol [...] [place] code[place] [facility] 1-19 [facility] [place] morphine DA Active U SWELLING [facility] -19 [facility] [place] nausea, 2019-0 [facility] headache 1-19 [facility] 00:[facility]: [facility] [place] tramadol [place] 2018- [facility] 2-31 [facility] 00:[facility] [place] tram[place] CHEST PAIN 2018- [facility] 2-31 [facility] 00:00: [...] Date Stop Date Source Natural mother Diabetes [facility] Natural mother Menstrual problems [facility] [place] [facility] Social History Social Habit Start Date Stop Date Quantity Comments Source Gender identity [facility] Exposure to 2022-10-09 2022-10-19 Not sure University of SARS-CoV-2 (event) 00:00:00 08:19:00 [facility] Alcohol intake 2022-07-22 2022-07-22 Current drinker [facility] 00:00:00 00:00:00 of alcohol Hospital (finding) History of Social 2022-07-22 2022-07-[address] function 00:00:00 00:00:00 Hospital Tobacco use and 2022-03-26 2022-03-26 Smokeless [facility] exposure 00:00:00 00:00:00 tobacco non-user Hospital Alcohol Comment 2016-04-28 2016-04-28 social, weekly [facility] 00:00:00 00:00:00 Hospital Sex Assigned At [birth year] [facility] 00:00:00 00:00:00 Hospital Smoking Status Start Date Stop Date Source Never smoked tobacco [facility] Medications Ordered Filled Start Stop Current Ordering Indication Dosage Frequency Signature Comments Components Source Medication Medication Date Date Medication? Clinician (SIG) Name Name ibuprofen 2023-0 Yes [id number] 600mg Take 1 Univers 600 mg 4-24 [...] pain for up to 5 days. phenazopyri 3-0 2023- No 200mg Q.[id number] Take 1 [facility] 07-[id number] (Pyridium) 00:00: 05:59 3D (200 mg Hos radha 200 MG 00 :00 total) by l tablet mouth 3 (three) times a day as needed for bladder spasms for up to 3 days. phenazopyri 3-0 2023- No 200mg Q.[id number] Take 1 [facility] 07-[id number] (Pyridium) 00:00: 05:59 3D (200 mg Hos radha 200 MG 00 :00 total) by l tablet mouth 3 (three) times a day as needed for bladder spasms for up to 3 days. phenazopyri 2022-0 2022- No 200mg Q.[id number] Take 1 [facility]ine 07-[id number] (Pyridium) 00:00: 05:59 3D (200 mg Hos radha 200 MG 00 :00 total) by l tablet mouth 3 (three) times a day as needed for bladder spasms for up to 3 days. phenazopyri 2022-0 2022- No 200mg Q.[id number] Take 1 [facility]ine 07-[id number] (Pyridium) 00:00: 05:59 3D (200 mg Hos radha 200 MG 00 :00 total) by l tablet mouth 3 (three) times a day as needed for bladder spasms for up to 3 days. phenazopyri 2022-0 2022- No 200mg Q.[id number] Take 1 Methodi [facility]ine 07-[id number] (Pyridium) 00:00: 05:59 3D (200 mg Hos radha 200 MG 00 :00 total) by l tablet mouth 3 (three) times a day as needed for bladder spasms for up to 3 days. phenazopyri 2022-0 2022- No 200mg Q.[id number] Take 1 Methodi [facility]ine 07-[id number] (Pyridium) 00:00: 05:59 3D (200 mg Hos radha 200 MG 00 :00 total) by l tablet mouth 3 (three) times a day as needed for bladder spasms for up to 3 days. phenazopyri 2022-0 2022- No 200mg Q.[id number] Take 1 Methodi dine 07-[id number] (Pyridium) 00:00: 05:59 3D (200 mg Hos radha 200 MG 00 :00 total) by l tablet mouth 3 (three) times a day as needed for bladder spasms for up to 3 days. phenazopyri 3-0 2022- No 200mg Q.[id number] Take 1 Methodi dine 07-[id number] (Pyridium) 00:00: 05:59 3D (200 mg Hos radha 200 MG 00 :00 total) by l tablet mouth 3 (three) times a day as needed for bladder spasms for up to 3 days. phenazopyri 2022- No 200mg Q.[id number] Take 1 Methodi dine 07-[id number] (Pyridium) 00:00: 05:59 3D (200 mg Hos radha 200 MG 00 :00 total) by l tablet mouth 3 (three) times a day as needed for bladder spasms for up to 3 days. diphenhydrA 2021-06 No 25mg 25 mg, Uni vers MINE 07-30 Oral, ity of (BENADRYL) 04:30: 04:21 ONCE, 1 [place] as tablet 25 00 :00 dose, On Medica l mg [facility] 05/28/22 at 2230, RODRICK FENTanyl PF 2021-06 No 75ug 75 mcg, Un car[place]ann (SUBLIMAZE 07-30 Slow IV ity o f (PF)) 04:30: 03:51 Push, [place] injection 00 :00 ONCE, 1 Medical 75 mcg dose, On [facility] 05/28/22 at 2230, Routine doxycycline 2021-06 No 100mg 100 mg, U nivers hyclate 07-30 Oral, ity of (Vibramycin 03:45: 03:51 [place] capsule 00 :00 dose, On Medica l 100 mg [facility] 05/28/22 at 2145, RODRICK
Re ason for Anti-Infec tive: Documented Infection< br>Documen jd Infection Site: Pelvic
Duration of Therapy: Other (see Comments) morpHINE (4 2021-06 No 4mg 4 mg, Slow Univers mg/mL) 07-30 IV Push, ity of injection 4 02:30: 02:47 [place]CE, 1 [place] mg 00 :00 dose, On Medical [place] [facility] 05/28/22 at 2030, STAT ketorolac 2021-06 No 15mg 15 mg, Unive rs (TORADOL) 07-30 Slow IV ity of injection 01:45: 01:01 Push, [place] 15 mg 00 :00 ONCE, 1 Medical dose, On Branch [facility] 05/28/22 at 1945, Routine iopamidol 2021-06- No [id number] 75mL 75 mL, Univers (ISOVUE 07-30 Intravenou ity o f 370-500 mL) 01:15: 01:15 s, ONCE, 1 [place] injection 00 :00 dose, On Medica l 75 mL [facility] 05/28/22 at 1915, Routine FENTanyl PF 2021-06- No 50ug 50 mcg, Un carolann (SUBLIMAZE 07-30 Slow IV ity o f (PF)) 01:00: 00:11 Push, [place] injection 00 :00 ONCE, 1 Medical 50 mcg dose, On Branch [facility] 05/28/22 at 1900, Routine ondansetron 2021-06- No 4mg 4 mg, Slow Univers (ZOFRAN 07-30 IV Push, ity of (PF)) 00:15: 00:11 ONCE, 1 [place] injection 4 00 :00 dose, On Medi scott mg [facility] 05/28/22 at 1815, RODRICK metroNIDAZO 2021-06 Yes [id number] 500mg Take 1 Univers LE 500 mg 2-01 tablet by ity o f tablet 00:00: mouth in [place] [address] the Medical morning Branch and 1 tablet in the evening. metroNIDAZO 2021-06 Yes [id number] 500mg Take 1 Univers LE 500 mg 2-01 tablet by ity o f tablet 00:00: mouth in [place] [address] the Medical morning Branch and 1 tablet in the evening. doxycycline 2021-06- No [id number] 100mg Take 1 Univers hyclate 100 07-29 capsule by i ty of mg capsule 00:00: 05:59 [place] the morning Branch and 1 capsule in the [...] as needed for mild pain. ibuprofen 0 2022- No 800mg Q6H Take 800 Me [...] 0.5 mg ity of tablet 12:44: tablet [facility] bupropion Yes bupropion Uni vers HBr 02-28 HBr ity of (APLENZIN 12:44: [place] ORAL) [facility] FLUoxetine Yes fluoxetine U nivers 20 mg 02-28 20 mg ity of capsule 12:44: capsule [facility] ALPRAZolam Yes alprazolam U nivers 0.5 mg 02-28 0.5 mg ity of tablet 12:44: tablet [facility] bupropion Yes bupropion Uni vers HBr 02-28 HBr ity of (APLENZIN 12:44: [place] ORAL) [facility] FLUoxetine Yes fluoxetine U nivers 20 mg 02-28 20 mg ity of capsule 12:44: capsule [place] [facility] famotidine 20mg 20 mg, Univ ers (PEPCID AC) [...] 0.5 mg ity of tablet 23:48: tablet [address] bupropion Yes bupropion Uni vers HBr 02-26 HBr ity of (APLENZIN 23:48: [place] [address] FLUoxetine Yes fluoxetine U nivers 20 mg 02-26 20 mg ity of capsule 23:48: capsule [address] ciprofloxac 2021- No 500mg Q.5D Take [...] 7 days. phenazopyri 2022-0 2022- No 200mg Q.[id number] Take 1 [facility]ine 02-[id number] (PYRIDIUM) 00:00: 04:59 3D (200 mg Hos radha 200 MG 00 :00 total) by l tablet mouth 3 (three) times a day for 3 days. phenazopyri 2022-0 2022- No 200mg Q.[id number] Take 1 [facility]i [facility]ine 02-[id number] (PYRIDIUM) 00:00: 04:59 3D (200 mg Hos radha 200 MG 00 :00 total) by l tablet mouth 3 (three) times a day for 3 days. phenazopyri 2021-0 2021- No 200mg Q.[id number] Take 1 Method[facility]ine 02-[id number] (PYRIDIUM) 00:00: 04:59 3D (200 mg Hos radha 200 MG 00 :00 total) by l tablet mouth 3 (three) times a day for 3 days. phenazopyri 2021-0 202- No 200mg Q.[id number] Take 1 Methodi dine 02-[id number] (PYRIDIUM) 00:00: 04:59 3D (200 mg Hos radha 200 MG 00 :00 total) by l tablet mouth 3 (three) times a day for 3 days. phenazopyri 2021-0 2021- No 200mg Q.[id number] Take 1 Methodi dine 02-[id number] (PYRIDIUM) 00:00: 04:59 3D (200 mg Hos radha 200 MG 00 :00 total) by l tablet mouth 3 (three) times a day for 3 days. phenazopyri 2021-0 2021- No 200mg Q.[id number] Take 1 Methodi dine 02-[id number] (PYRIDIUM) 00:00: 04:59 3D (200 mg Hos radha 200 MG 00 :00 total) by l tablet mouth 3 (three) times a day for 3 days. phenazopyri 2021-0 2021- No 200mg Q.[id number] Take 1 Methodi dine 02-[id number] (PYRIDIUM) 00:00: 04:59 3D (200 mg Hos radha 200 MG 00 :00 total) by l tablet mouth 3 (three) times a day for 3 days. phenazopyri 2021-0 2021- No 200mg Q.[id number] Take 1 Methodi dine 02-[id number] (PYRIDIUM) 00:00: 04:59 3D (200 mg Hos radha 200 MG 00 :00 total) by l tablet mouth 3 (three) times a day for 3 days. phenazopyri 2021-0 2021- No 200mg Q.[id number] Take 1 Methodi dine 02-[id number] (PYRIDIUM) 00:00: 04:59 3D (200 mg Hos radha 200 MG 00 :00 total) by l tablet mouth 3 (three) times a day for 3 days. phenazopyri 2021-0 2021- No 200mg Q.[id number] Take 1 Methodi dine 02-[id number] (PYRIDIUM) 00:00: 04:59 3D (200 mg Hos radha 200 MG 00 :00 total) by l tablet mouth 3 (three) times a day for 3 days. phenazopyri 2021-0 2021- No 200mg Q.[id number] Take 1 Methodi dine 02-[id number] (PYRIDIUM) 00:00: 04:59 3D (200 mg Hos radha 200 MG 00 :00 total) by l tablet mouth 3 (three) times a day for 3 days. phenazopyri 2021-0 2021- No 200mg Q.[id number] Take 1 Methodi dine 02-[id number] (PYRIDIUM) 00:00: 04:59 3D (200 mg Hos radha 200 MG 00 :00 total) by l tablet mouth 3 (three) times a day for 3 days. phenazopyri 2021-0 2021- No 200mg Q.[id number] Take 1 Methodi dine 02-[id number] (PYRIDIUM) 00:00: 04:59 3D (200 mg Hos radha 200 MG 00 :00 total) by l tablet mouth 3 (three) times a day for 3 days. phenazopyri 2021-0 2021- No 200mg Q.[id number] Take 1 Methodi dine 02-[id number] (PYRIDIUM) 00:00: 04:59 3D (200 mg Hos radha 200 MG 00 :00 total) by l tablet mouth 3 (three) times a day for 3 days. phenazopyri 202-0 202- No 200mg Q.[id number] Take 1 Methodi dine 02-[id number] (PYRIDIUM) 00:00: 04:59 3D (200 mg Hos radha 200 MG 00 :00 total) by l tablet mouth 3 (three) times a day for 3 days. phenazopyri 2021- No 200mg Q.[id number] Take 1 Methodi dine 02-[id number] (PYRIDIUM) 00:00: 04:59 3D (200 mg Hos radha 200 MG 00 :00 total) by l tablet mouth 3 (three) times a day for 3 days. phenazopyri 2021- No 200mg Q.[id number] Take 1 Methodi dine 02-[id number] (PYRIDIUM) 00:00: 04:59 3D (200 [...] ity of (BENADRYL) 09:15: 08:20 ONCE, 1 [place] as tablet 25 00 :00 dose, Tue [...] 12/31/20 at Branch 0300, RODRICK ibuprofen Yes [id number] 800mg Take 1 U nivers 800 mg 7-06 tablet by ity of tablet 00:00: mouth [place] 00 every 8 Medical (eight) Branch hours as needed for Pain (scale 4-6). cyclobenzap Yes [id number] 10mg Take 1 Univers rine 10 mg 7-06 tablet by ity of tablet 00:00: mouth 3 [place] 00 (three) Medical times Branch daily as needed for Muscle Spasms. ibuprofen 2021- No [id number] 800mg Take 1 Univers 800 mg 7- 09- tablet by ity of tablet 00:00: 00:00 mouth [place] 00 :00 every 8 Medical (eight) Branch hours as needed for Pain (scale 4-6). cyclobenzap 2021- No [id number] 10mg Take 1 Univers rine 10 mg [...] 1,000 mL 00 :00 IV Medical Infusion, [place] ONCE, 1 dose, [facility] 11/20/20 at 1530, STAT metoclopram 2020- No 10mg 10 mg, Uni vers dio HCl 11-20- Slow IV ity of (REGLAN) 20:15: 19:18 Push, [place] injection 00 :00 ONCE, 1 Medical 10 mg dose, [facility] 11/20/20 at 1515, RODRICK ketorolac 2020- No 30mg 30 mg, Unive rs (TORADOL) 11-20 Slow IV ity of injection 20:15: 19:18 Push, [place] 30 mg 00 :00 ONCE, 1 Medical dose, [facility] 11/20/20 at 1515, [facility]ICK
[facility] : JOHN RIVERA diphenhydrA 2020- No 25mg 25 mg, Uni vers MINE 11-20 05-26 Slow IV ity of (BENADRYL) 20:15: 20:15 Push, [place] injection 00 :00 ONCE, 1 Medical 25 mg dose, Wed Branch 11/20/20 at 1515, STAT butalbital- 0 Yes 1{tbl} 1 tablet, Univers acetaminoph 11-20 Oral, ity of en-caff 18:12: Q4HPRN, [place] (ESGIC) 27 Starting Medical 50-325-40 Wed Branch mg tablet 1 11/20/20 at tablet 1312, Until Discontinu ed, Routine, zofran ketorolac 0 Yes [id number] 10mg Take 1 Un car[place]ann 10 mg 5-26 tablet by ity of tablet 00:00: mouth [place] 00 every 6 Medical (six) Branch hours as needed for Pain (scale 4-6). cyclobenzap 0 Yes [id number] 10mg Take 1 Univers rine 10 mg 5-26 tablet by ity of tablet 00:00: mouth 3 [place] 00 (three) Medical times Branch daily. ketorolac 0 Yes [id number] 10mg Take 1 Un car[place]ann 10 mg 5-26 tablet by ity of tablet 00:00: mouth [place] 00 every 6 Medical (six) Branch hours as needed for Pain (scale 4-6). cyclobenzap 2020-0 Yes [id number] 10mg Take 1 Univers rine 10 mg 5-26 tablet by ity of tablet 00:00: mouth 3 [place] 00 (three) Medical times Branch daily. ketorolac 2020-0 2021- No [id number] 10mg Take 1 U nivers 10 mg 5-26 - tablet by ity of tablet 00:00: 00:00 mouth [place] 00 :00 every 6 Medical (six) Branch hours as needed for Pain (scale 4-6). cyclobenzap 2020-0 2021- No [id number] 10mg Take 1 Univers rine 10 mg [...] 09/26/20 Branch at 2245, RODRICK ondansetron Yes [id number] 4mg Take 1 Univers (ZOFRAN 4-01 tablet by ity of ODT) 4 mg 00:00: mouth [place] disintegrat 00 every 8 Medic al ing tablet (eight) Branch hours as needed for Nausea and Vomiting (N/V). ondansetron Yes [id number] 4mg Take 1 Univers (ZOFRAN 4-01 tablet by ity of ODT) 4 mg 00:00: mouth [place] disintegrat 00 every 8 Medic al ing tablet (eight) Branch hours as needed for Nausea and Vomiting (N/V). ondansetron Yes [id number] 4mg Take 1 Univers (ZOFRAN 4-01 tablet by ity of ODT) 4 mg 00:00: mouth [place] disintegrat 00 every 8 Medic al ing tablet (eight) Branch hours as needed for Nausea and Vomiting (N/V). ondansetron 2021- No [id number] 4mg Take 1 Univers (ZOFRAN 4-01 09-01 tablet by ity of ODT) 4 mg 00:00: 00:00 mouth [place] disintegrat 00 :00 every 8 Medic al ing tablet (eight) Branch hours as needed for Nausea and Vomiting (N/V). proMETHazin Yes [id number] 25mg Take 1 Univers e 25 mg 2-09 tablet by ity of tablet 00:00: mouth [place] 00 every 6 Medical (six) Branch hours as needed for Nausea and Vomiting (N/V). proMETHazin Yes [id number] 25mg Take 1 Univers e 25 mg 2-09 tablet by ity of tablet 00:00: mouth [place] 00 every 6 Medical (six) Branch hours as needed for Nausea and Vomiting (N/V). proMETHazin Yes [id number] 25mg Take 1 Univers e 25 mg 2-09 tablet by ity of tablet 00:00: mouth [place] 00 every 6 Medical (six) Branch hours as needed for Nausea and Vomiting (N/V). proMETHazin 2021- No [id number] 25mg Take 1 Univers e 25 mg [...] Wed Branch 07/17/20 at 0730, RODRICK
[facility] Rest[facility] : LEONEL WILD [...] mg iron-1 mg -250 mg combo pack 0 Yes 1{packe Take 1 Univ ers vit [...] Immunizations Ordered Filled Immunization Date Status Comments [facility] e Immunization Name Name Td 2011-06-28 Completed University of 00:00:00 [facility] Td 2011-06-28 Completed University of 00:00:00 [facility] Td 2011-06-28 Completed University of 00:00:00 [facility] Td 2011-06-28 Completed University of 00:00:00 [facility] Td 2011-06-28 Completed University of 00:00:00 [facility] TD, NOS 2011-06-28 Completed University of 00:00:00 [facility] Td 2011-06-28 Completed University of 00:00:00 [facility] Vital Signs Vital Name Observation Time Observation Value Comments Source Systolic blood 2022-10-19 14:30:00 129 mm[Hg] Univer sity of pressure [facility] Diastolic blood 2022-10-19 14:30:00 93 mm[Hg] Unive rsity of pressure [facility] Heart rate 2022-10-19 14:30:00 73 /min Universi ty of [facility] Respiratory rate 2022-10-19 14:30:00 14 /min Univ ersity of [facility] Oxygen saturation in 2022-10-19 14:30:00 100 /min [facility] Arterial blood by [facility] Pulse oximetry Branch Body temperature 2022-10-19 13:22:00 37 [place] Univ ersity of [place] [facility] Body height 2022-10-19 13:22:00 152.4 cm Universi ty of [place] [facility] Body weight 2022-10-19 13:22:00 79.833 kg Universi ty of [place] [facility] BMI 2022-10-19 13:22:00 34.37 kg/m2 Universi ty of [place] [facility] Systolic blood 2022-05-29 04:19:00 123 mm[Hg] Univer sity of pressure [place] [facility] Diastolic blood 2022-05-29 04:19:00 87 mm[Hg] Unive rsity of pressure [place] [facility] Heart rate 2022-05-29 04:19:00 93 /min Universi ty of [place] [facility] Respiratory rate 2022-05-29 04:19:00 18 /min Univ ersity of [place] [facility] Oxygen saturation in 2022-05-29 04:19:00 97 /min University of Arterial blood by [place] [employer] [facility] Pulse oximetry Branch Body temperature 2022-05-28 23:42:00 37.11 [place] Univ ersity of [place] [facility] Body height 2022-05-28 23:42:00 152.4 cm Universi ty of [place] [facility] Systolic blood 2022-02-27 05:31:00 130 mm[Hg] Univer sity of pressure [place] [facility] Diastolic blood 2022-02-27 05:31:00 87 mm[Hg] Unive rsity of pressure [place] [facility] Heart rate 2022-02-27 05:31:00 98 /min Universi ty of [place] [facility] Respiratory rate 2022-02-27 05:31:00 18 /min Univ ersity of [place] [facility] Oxygen saturation in 2022-02-27 05:31:00 99 /min University of Arterial blood by [place] [employer] [facility] Pulse oximetry Branch Body height 2022-02-27 03:38:00 152.4 cm Universi ty of [place] [facility] Body weight 2022-02-27 03:38:00 82.101 kg Universi ty of [place] [facility] BMI 2022-02-27 03:38:00 35.35 kg/m2 Universi ty of [place] [facility] Body temperature 2022-02-27 03:36:00 36.28 [place] Univ ersity of [place] [facility] Systolic blood 2020-12-31 06:49:00 125 mm[Hg] Univer sity of pressure [place] [facility] Diastolic blood 2020-12-31 06:49:00 93 mm[Hg] Unive rsity of pressure [place] [facility] Heart rate 2020-12-31 06:49:00 104 /min Universi ty of [place] [facility] Body temperature 2020-12-31 06:49:00 36.83 [place] Univ ersity of [place] [facility] Respiratory rate 2020-12-31 06:49:00 15 /min Univ ersity of [place] [facility] Body height 2020-12-31 06:49:00 152.4 cm Universi ty of [place] [facility] Body weight 2020-12-31 06:49:00 92.5 kg Universi ty of [place] [facility] BMI 2020-12-31 06:49:00 39.83 kg/m2 Universi ty of [place] [facility] Oxygen saturation in 2020-12-31 06:49:00 99 /min University of Arterial blood by [place] [employer] [facility] Pulse oximetry Branch Systolic blood 2020-12-31 06:49:00 125 mm[Hg] Univer sity of pressure [place] [facility] Diastolic blood 2020-12-31 06:49:00 93 mm[Hg] Unive rsity of pressure [place] [facility] Heart rate 2020-12-31 06:49:00 104 /min Universi ty of [place] [facility] Body temperature 2020-12-31 06:49:00 36.83 [place] Univ ersity of [place] [facility] Respiratory rate 2020-12-31 06:49:00 15 /min Univ ersity of [place] [facility] Body height 2020-12-31 06:49:00 152.4 cm Universi ty of [place] [facility] Body weight 2020-12-31 06:49:00 92.5 kg Universi ty of [place] [facility] BMI 2020-12-31 06:49:00 39.83 kg/m2 Universi ty of [place] [facility] Oxygen saturation in 2020-12-31 06:49:00 99 /min University of Arterial blood by [place] [employer] [facility] Pulse oximetry Branch Systolic blood 2020-11-20 19:58:00 146 mm[Hg] Univer sity of pressure [place] [facility] Diastolic blood 2020-11-20 19:58:00 95 mm[Hg] Unive rsity of pressure [place] [facility] Heart rate 2020-11-20 19:58:00 98 /min Universi ty of [place] [facility] Body temperature 2020-11-20 19:58:00 37.17 [place] Univ ersity of [place] [facility] Respiratory rate 2020-11-20 19:58:00 17 /min Univ ersity of [place] [facility] Oxygen saturation in 2020-11-20 19:58:00 100 /min University of Arterial blood by [facility] scott Pulse oximetry Branch Body weight 2020-11-20 16:43:00 92.534 kg Universi ty of [place] [facility] BMI 2020-11-20 16:43:00 39.84 kg/m2 Universi ty of [place] [facility] Systolic blood 2020-11-20 19:58:00 146 mm[Hg] Univer sity of pressure [place] [facility] Diastolic blood 2020-11-20 19:58:00 95 mm[Hg] Unive rsity of pressure [place] [facility] Heart rate 2020-11-20 19:58:00 98 /min Universi ty of [place] [facility] Body temperature 2020-11-20 19:58:00 37.17 [place] Univ ersity of [place] [facility] Respiratory rate 2020-11-20 19:58:00 17 /min Univ ersity of [place] [facility] Oxygen saturation in 2020-11-20 19:58:00 100 /min University of Arterial blood by [facility] Pulse oximetry Branch Body weight 2020-11-20 16:43:00 92.534 kg Universi ty of [place] [facility] BMI 2020-11-20 16:43:00 39.84 kg/m2 Universi ty of [place] [facility] Body height 2020-09-26 23:49:00 152.4 cm Universi ty of [place] [facility] Body weight 2020-09-26 23:49:00 90.719 kg Universi ty of [place] [facility] BMI 2020-09-26 23:49:00 39.06 kg/m2 [facility]i ty of [place] [facility] Systolic blood 2020-09-26 23:45:00 103 mm[Hg] Univer sity of pressure [place] [facility] Diastolic blood 2020-09-26 23:45:00 62 mm[Hg] Unive rsity of pressure [place] [facility] Heart rate 2020-09-26 23:45:00 107 /min Universi ty of [place] [facility] Body temperature 2020-09-26 23:45:00 36.61 [place] Univ ersity of [place] [facility] Respiratory rate 2020-09-26 23:45:00 18 /min Univ ersity of [place] [facility] Oxygen saturation in 2020-09-26 23:45:00 97 /min University of Arterial blood by [facility] Pulse oximetry Branch Body height 2020-09-26 23:49:00 152.4 cm Universi ty of [place] [facility] Body weight 2020-09-26 23:49:00 90.719 kg Universi ty of [place] [facility] BMI 2020-09-26 23:49:00 39.06 kg/m2 Universi ty of [facility] Systolic blood 2020-09-26 23:45:00 103 mm[Hg] Univer [facility]ity [facility] pressure [facility] Diastolic blood 2020-09-26 23:45:00 62 mm[Hg] Unive rs[facility] pressure [facility] Heart rate 2020-09-26 23:45:00 107 /min [facility] Body temperature 2020-09-26 23:45:00 36.61 [place] [facility] Respiratory rate 2020-09-26 23:45:00 18 /min [facility] Oxygen saturation in 2020-09-26 23:45:00 97 /min University of Arterial blood by [facility] Pulse oximetry Branch Systolic blood 2020-07-17 14:00:00 112 mm[Hg] Univer [facility] pressure [facility] Diastolic blood 2020-07-17 14:00:00 65 mm[Hg] Unive rsity of pressure [facility] Heart rate 2020-07-17 14:00:00 86 /min [facility] Respiratory rate 2020-07-17 14:00:00 20 /min [facility] Oxygen saturation in 2020-07-17 14:00:00 100 /min [facility] Arterial blood by [facility] Pulse oximetry Branch Body temperature 2020-07-17 11:50:00 37.22 [place] [facility] Body weight 2020-07-17 11:50:00 86.183 kg [facility] BMI 2020-07-17 11:50:00 37.11 kg/m2 [facility] Systolic blood 2020-07-17 14:00:00 112 mm[Hg] Univer sity of pressure [facility] Diastolic blood 2020-07-17 14:00:00 65 mm[Hg] Unive rsity of pressure [facility] Heart rate 2020-07-17 14:00:00 86 /min [facility] Respiratory rate 2020-07-17 14:00:00 20 /min [facility] O[facility] in 2020-07-17 14:00:00 100 /min [facility] Arterial blood by [facility] Pulse oximetry [place] Body temperature 2020-07-17 11:50:00 37.22 [place] [facility] Body weight 2020-07-17 11:50:00 86.183 kg [facility] BMI 2020-07-17 11:50:00 37.11 kg/m2 [facility] Systolic blood 2022-07-22 19:04:00 122 mm[Hg] Method [facility] pressure Diastolic blood 2022-07-22 19:04:00 72 mm[Hg] [facility] pressure Heart rate 2022-07-22 19:04:00 72 /min [facility] Respiratory rate 2022-07-22 19:04:00 18 /min [facility] Oxygen saturation in 2022-07-22 19:04:00 100 /min [facility] Arterial blood by Pulse oximetry Body temperature 2022-07-22 17:04:00 36.72 [place] [facility] Body height 2022-07-22 17:04:[address] [facility] Body weight 2022-07-22 17:04:[address] [facility] BMI 2022-07-22 17:04:00 34.39 kg/m2 [facility] Systolic blood 2022-03-26 13:44:00 139 mm[Hg] Method [facility] pressure Diastolic blood 2022-03-26 13:44:00 83 mm[Hg] [facility] pressure Heart rate 2022-03-26 13:44:00 101 /min [facility] Respiratory rate 2022-03-26 13:44:00 18 /min [facility] Oxygen saturation in 2022-03-26 13:44:00 100 /min [facility] Arterial blood by Pulse oximetry Body temperature 2022-03-26 12:32:00 36.72 [place] Meth [facility] Body height 2022-03-26 12:32:[address] [facility] Body weight 2022-03-26 12:32:[address] [facility] BMI 2022-03-26 12:32:00 34.39 kg/m2 [facility] Procedures Procedure Date / Time Performing Clinician Source Performed POCT TEST 2022-10-19 15:07:00 Vasu Hutson [facility] Medical Branch LIPASE 2022-10-19 13:44:00 Vasu Hutson [facility] COMP. METABOLIC PANEL 2022-10-19 13:44:00 Vasu Hutson [facility] ([id number]) [facility] CBC WITH DIFF 2022-10-19 13:44:00 Vasu Hutson [facility] CONSENT/REFUSAL FOR 2022-10-19 13:14:52 Doctor Unassigned, No Un [facility] DIAGNOSIS AND TREATMENT Name [facility] Branch URINE CULTURE 2022-07-22 19:12:[address] [facility] COMPREHENSIVE METABOLIC 2022-07-22 17:33:00 Zhaeer, [facility] PANEL ESTIMATED GFR 2022-07-22 17:33:00 [facility]ONE PROTOCOL 2022-07-22 17:13:55 ZaheerNash duong [facility] CBC WITH PLATELET AND 2022-07-22 16:33:00 [facility] DIFFERENTIAL COMPREHENSIVE METABOLIC 2022-07-22 16:33:00 Zaheer, [facility] PANEL ESTIMATED GFR 2022-07-22 16:33:[address] [facility] URINALYSIS SCREEN AND 2022-07-22 16:22:00 [facility] MICROSCOPY, WITH REFLEX TO CULTURE US PELVIS COMPLETE WITH 2022-05-29 02:07:00 [facility] CT ABDOMEN PELVIS W 2022-05-29 00:28:13 Calvin [facility] CONTRAST [facility] COMP. METABOLIC PANEL 2022-05-29 00:07:00 Lorena Simpson [facility] ([id number]) [facility] CBC WITH DIFF 2022-05-29 00:07:00 Lorena Simpson [facility] URINALYSIS 2022-05-28 23:56:00 Calvin [facility] POCT TEST 2022-05-28 23:53:00 Calvin Lorena [facility] CONSENT/REFUSAL FOR 2022-05-28 23:40:29 Doctor Unassigned, No Un [facility] DIAGNOSIS AND TREATMENT Name [facility] URINALYSIS 2022-03-26 13:06:00 [facility] HCG QUALITATIVE, URINE 2022-03-26 13:06:[address] [facility] SCREEN URINALYSIS 2022-03-26 13:06:00 [facility] HCG QUALITATIVE, URINE 2022-03-26 13:06:[address] [facility] SCREEN CBC WITH PLATELET AND 2022-03-26 12:46:00 [facility] DIFFERENTIAL COMPREHENSIVE METABOLIC 2022-03-26 12:46:00 [facility] PANEL ESTIMATED GFR 2022-03-26 12:46:00 [facility] CBC WITH PLATELET AND 2022-03-26 12:46:00 [facility] DIFFERENTIAL POCT TEST 2022-02-27 04:56:00 Afsaneh Car [facility] LIPASE 2022-02-27 04:04:[address] [facility] TROPONIN I 2022-02-27 04:04:[address] [facility] THYROID STIMULATING 2022-02-27 04:04:00 Afsaneh Car [facility] HORMONE Medical Branch COMP. METABOLIC PANEL 2022-02-27 04:04:00 Afsaneh Car [facility] ([id number]) Medical [place] CBC WITH DIFF 2022-02-27 04:04:[address] [facility] URINALYSIS 2022-02-27 03:56:[address] [facility] URINE DRUG (IMMUNOASSAY) 2022-02-27 03:56:00 Afsaneh Car [facility] Medical Bra nch SCREEN W/O REFLEX NOTICE OF PRIVACY 2022-02-27 03:05:57 Doctor Unassigned, No Univ [facility] PRACTICES Name Medical Branch CONSENT/REFUSAL FOR 2022-02-27 03:04:00 Doctor Unassigned, No [facility] Name Medical [place] COMPREHENSIVE METABOLIC 2022-02-18 05:17:00 Carlos Hernandez [facility] PANEL ESTIMATED GFR 2022-02-18 05:17:00 Carlos Hernandez spital COMPREHENSIVE METABOLIC 2022-02-18 04:38:00 Carlos Hernandez [facility] PANEL ESTIMATED GFR 2022-02-18 04:38:[address] ABDOMEN PELVIS WO 2022-02-18 04:17:35 Carlos Hernandez [facility] CONTRAST URINE CULTURE 2022-02-18 04:00:00 Carlos Hernandez spital CBC WITH PLATELET AND 2022-02-18 04:00:00 Carlos Hernandez [facility] DIFFERENTIAL COMPREHENSIVE METABOLIC 2022-02-18 04:00:00 Carlos Hernandez [facility] PANEL ESTIMATED GFR 2022-02-18 04:00:00 Carlos Hernandez spital HCG QUALITATIVE, URINE 2022-02-18 02:50:00 Carlos Hernandez [facility] SCREEN URINALYSIS 2022-02-18 02:50:00 Carlos Hernandez spital RAPID STREP SCREEN FOR 2020-12-31 07:13:00 Akiko Dunaway [facility] GROUP A Medical Branch NOTICE OF PRIVACY 2020-12-31 06:34:54 Doctor Unassigned, No [facility] CONSENT/REFUSAL FOR 2020-12-31 06:34:35 Doctor Unassigned, No Un [facility] [place] [facility] TREATMENT [facility] CT HEAD WO CONTRAST 2020-11-20 18:18:22 John Rivera [facility] POCT TEST 2020-11-20 17:50:00 John Rivera [facility] BASIC METABOLIC PANEL 2020-11-20 17:24:00 John Rivera [facility] (NA, K, CL, CO2, Medical Branch GLUCOSE, BUN, CREATININE, CA) CBC WITH DIFF 2020-11-20 17:24:00 John Rivera [facility] CONSENT/REFUSAL FOR 2020-11-20 16:36:59 Doctor Unassigned, No Un [facility] [place] [facility]RE[facility] POCT TEST 2020-09-27 02:56:00 Tricia Herbert [facility] ASSIGNMENT OF BENEFITS 2020-09-27 01:35:31 Doctor Unassigned, No [facility] CONSENT/REFUSAL FOR 2020-09-26 23:26:24 Doctor Unassigned, No Un [facility] [place] DI[facility] TREATMENT [facility] URINALYSIS 2020-07-17 14:08:[address] [facility] POCT TEST 2020-07-17 14:08:00 Wild Cowart [facility] CBC WITH DIFF 2020-07-17 12:25:[address] [facility] NOTICE OF PRIVACY 2020-07-17 11:48:39 Doctor Unassigned, No [facility] CONSENT/REFUSAL FOR 2020-07-17 11:44:41 Doctor Unassigned, No Un [facility] [place] [facility] TREATMENT [facility] Plan of Care Planned Activity Planned Date Details Comments Source Future Scheduled 2022-10-03 COVID-[address] [facility] 02:09:31 (#1) [code = COVID-19 VACCINE (#1)] Future Scheduled 2022-10-03 [facility] 02:09:31 screening (procedure) [code = 720899689] Future Scheduled 2022-10-03 [facility] 02:09:31 malignant neoplasm of cervix (procedure) [code = 594745914] Future Scheduled 2022-10-03 [facility]ACCINE [facility] 02:09:31 [code = INFLUENZA VACCINE] Future Scheduled 2022-10-03 COVID-[address] [facility] 02:09:31 (#1) [code = COVID-19 VACCINE (#1)] Future Scheduled 2022-10-03 [facility] 02:09:31 screening (procedure) [code = 186800931] Future Scheduled 2022-10-03 [facility] Test 02:09:31 malignant neoplasm of cervix (procedure) [code = 696645987] Future Scheduled 2022-10-03 [facility] 02:09:31 [code = INFLUENZA VACCINE] Future Scheduled 2022-10-03 [facility] [facility] 02:09:31 (#1) [code = COVID-19 VACCINE (#1)] Future Scheduled 2022-10-03 [facility] 02:09:31 screening (procedure) [code = 306937708] Future Scheduled 2022-10-03 [facility] Test 02:09:31 malignant neoplasm of cervix (procedure) [code = 848837785] Future Scheduled 2022-10-03 [facility] 02:09:31 [code = INFLUENZA VACCINE] Future Scheduled 2022-09-07 COVID-[address] [facility] Test 16:46:36 (#1) [code = COVID-19 VACCINE (#1)] Future Scheduled 2022-09-07 [facility] 16:46:36 screening (procedure) [code = 367174951] Future Scheduled 2022-09-07 [facility] Test 16:46:36 malignant neoplasm of cervix (procedure) [code = 220375388] Future Scheduled 2022-09-07 [facility] 16:46:36 [code = INFLUENZA VACCINE] Future Scheduled 2022-09-07 [facility] [facility] Test 16:46:36 (#1) [code = COVID-19 VACCINE (#1)] Future Scheduled 2022-09-07 [facility] 16:46:36 screening (procedure) [code = 452287810] Future Scheduled 2022-09-07 [facility] Test 16:46:36 malignant neoplasm of cervix (procedure) [code = 045850425] Future Scheduled 2022-09-07 [facility]INE [facility] 16:46:36 [code = INFLUENZA VACCINE] Future Scheduled 2022-09-07 [facility]-[address] [facility] Test 16:46:36 (#1) [code = COVID-19 VACCINE (#1)] Future Scheduled 2022-09-07 [facility] 16:46:36 screening (procedure) [code = 570888565] Future Scheduled 2022-09-07 [facility] Test 16:46:36 malignant neoplasm of cervix (procedure) [code = 406519488] Future Scheduled 2022-09-07 [facility]INE [facility] 16:46:36 [code = INFLUENZA VACCINE] Future Scheduled 2022-07-30 COVID-[address] [facility] Test 22:48:12 (#1) [code = COVID-19 VACCINE (#1)] Future Scheduled 2022-07-30 [facility] 22:48:12 screening (procedure) [code = 382711599] Future Scheduled 2022-07-30 [facility] Test 22:48:12 malignant neoplasm of cervix (procedure) [code = 741870105] Future Scheduled 2022-07-30 [facility]INE [facility] 22:48:12 [code = INFLUENZA VACCINE] Future Scheduled 2022-07-23 COVID-[address] [facility] Test 22:23:51 (#1) [code = COVID-19 VACCINE (#1)] Future Scheduled 2022-07-23 [facility] 22:23:51 screening (procedure) [code = 185493402] Future Scheduled 2022-07-23 [facility] 22:23:51 malignant neoplasm of cervix (procedure) [code = 904839439] Future Scheduled 2022-07-23 [facility]INE [facility] 22:23:51 [code = INFLUENZA VACCINE] Future Scheduled 2022-07-23 [facility] 14:05:40 (#1) [code = COVID-19 VACCINE (#1)] Future Scheduled 2022-07-23 [facility] 14:05:40 screening (procedure) [code = 941744726] Future Scheduled 2022-07-23 [facility] 14:05:40 malignant neoplasm of cervix (procedure) [code = 369170896] Future Scheduled 2022-07-23 [facility]INE [facility] 14:05:40 [code = INFLUENZA VACCINE] Future Scheduled 2022-07-16 [facility] 00:01:34 (#1) [code = COVID-19 VACCINE (#1)] Future Scheduled 2022-07-16 [facility] 00:01:34 screening (procedure) [code = 660161793] Future Scheduled 2022-07-16 [facility] 00:01:34 malignant neoplasm of cervix (procedure) [code = 667111231] Future Scheduled 2022-07-16 [facility]INE [facility] 00:01:34 [code = INFLUENZA VACCINE] Future Scheduled 2022-06-20 [facility] 00:27:46 (#1) [code = COVID-19 VACCINE (#1)] Future Scheduled 2022-06-20 [facility] 00:27:46 screening (procedure) [code = 880921896] Future Scheduled 2022-06-20 [facility] 00:27:46 malignant neoplasm of cervix (procedure) [code = 182592082] Future Scheduled 2022-06-20 [facility]INE [facility] 00:27:46 [code = INFLUENZA VACCINE] Future Scheduled 2022-06-12 [facility] 16:29:41 (#1) [code = COVID-19 VACCINE (#1)] Future Scheduled 2022-06-12 [facility] 16:29:41 screening (procedure) [code = 143880231] Future Scheduled 2022-06-12 [facility]INE [facility] 16:29:41 [code = INFLUENZA VACCINE] Future Scheduled 2022-04-29 [facility]ITIS B [facility] 09:57:18 VACCINES (1 of 3 - 3-dose series) [code = HEPATITIS B VACCINES (1 of 3 - 3-dose series)] Future Scheduled 2022-04-29 [facility] 09:57:18 (#1) [code = COVID-19 VACCINE (#1)] Future Scheduled 2022-04-29 [facility] 09:57:18 screening (procedure) [code = 163941204] Future Scheduled 2022-04-29 [facility] 09:57:18 malignant neoplasm of cervix (procedure) [code = 556243116] Future Scheduled 2022-04-29 [facility]ZA [facility]ACCINE [facility] 09:57:18 [code = INFLUENZA VACCINE] Future Scheduled 2022-03-26 [facility] 18:56:00 VACCINES (1 of 3 - 3-dose series) [code = HEPATITIS B VACCINES (1 of 3 - 3-dose series)] Future Scheduled 2022-03-26 [facility] 18:56:00 (#1) [code = COVID-19 VACCINE (#1)] Future Scheduled 2022-03-26 [facility] 18:56:00 screening (procedure) [code = 434247443] Future Scheduled 2022-03-26 [facility] 18:56:00 malignant neoplasm of cervix (procedure) [code = 719504010] Future Scheduled 2022-03-26 [facility]ZA [facility]ACCINE [facility] 18:56:00 [code = INFLUENZA VACCINE] Future Scheduled 2022-03-26 [facility] 18:56:00 VACCINES (1 of 3 - 3-dose series) [code = HEPATITIS B VACCINES (1 of 3 - 3-dose series)] Future Scheduled 2022-03-26 [facility] 18:56:00 (#1) [code = COVID-19 VACCINE (#1)] Future Scheduled 2022-03-26 [facility] 18:56:00 screening (procedure) [code = 679923637] Future Scheduled 2022-03-26 [facility] 18:56:00 malignant neoplasm of cervix (procedure) [code = 661695664] Future Scheduled 2022-03-26 [facility]ZA [facility]ACCINE [facility] 18:56:00 [code = INFLUENZA VACCINE] Future Scheduled 2022-03-26 [facility] 18:56:00 VACCINES (1 of 3 - 3-dose series) [code = HEPATITIS B VACCINES (1 of 3 - 3-dose series)] Future Scheduled 2022-03-26 COVID-[address] [facility] Test 18:56:00 (#1) [code = COVID-19 VACCINE (#1)] Future Scheduled 2022-03-26 [facility] 18:56:00 screening (procedure) [code = 826664203] Future Scheduled 2022-03-26 [facility] 18:56:00 malignant neoplasm of cervix (procedure) [code = 073060554] Future Scheduled 2022-03-26 [facility]ZA [facility]ACCINE [facility] 18:56:00 [code = INFLUENZA VACCINE] Future Scheduled 2022-03-26 [facility]ITIS [facility] 08:33:14 VACCINES (1 of 3 - 3-dose series) [code = HEPATITIS B VACCINES (1 of 3 - 3-dose series)] Future Scheduled 2022-03-26 COVID-[address] [facility] Test 08:33:14 (#1) [code = COVID-19 VACCINE (#1)] Future Scheduled 2022-03-26 [facility] 08:33:14 screening (procedure) [code = 884393005] Future Scheduled 2022-03-26 [facility] 08:33:14 malignant neoplasm of cervix (procedure) [code = 125248898] Future Scheduled 2022-03-26 [facility]ZA [facility]ACCINE [facility] 08:33:14 [code = INFLUENZA VACCINE] Future Scheduled COVID-[address] [facility] Test (1) [code = COVID-19 VACCINE (1)] Future Scheduled [facility] screening (procedure) [code = 301705032] Future Scheduled [facility] Test malignant neoplasm of cervix (procedure) [code = 736095970] Future Scheduled INFLUENZA VACCINE [facility] [code = INFLUENZA VACCINE] Encounters Start End Encounter Admission Attending Care Care Encounter Source Date/Time Date/Time Type Type Clinicians Facility Department ID 2021-04-28 Emergency [facility] [id number] Univers 06:08:31 ity of [facility] 2021-04-27 Emergency [facility] [id number] Univers 21:27:31 ity of [facility] 2021-04-27 Emergency [facility] [id number] Univers 10:13:04 ity of [facility] 2021-04-26 Emergency [facility] [id number] Univers 18:11:30 ity [facility] 2022-10-19 2022-10-19 Emergency [facility] [id number] Univers 08:24:00 11:10:00 FOLUSHO ity [facility] 2022-10-19 2022-10-19 [facility] 1.2.840.114 [id number] Univers 08:24:00 11:10:00 John Saran MCGRANN 350.1.13.10 ity [facility] 4.2.7.2.686 [facility] [id number] [place] [address] Branch 2022-07-22 2022-07-22 Emergency Zaheer, 1.2.840.1 [id number] Methodi 10:01:00 13:05:00 Nash Conteh 66046.1.1 054 s t 3.430.2.7 Hospit a .3.108061 l .8 2022-07-22 2022-07-22 Emergency Zaheer, 1.2.840.1 [id number] Methodi 10:01:00 13:05:00 Nash Conteh 41608.1.1 054 s t 3.430.2.7 Hospit a .3.128870 l .8 2022-07-22 2022-07-22 Travel 1.2.840.1 1.2.478.603 [id number] Methodi 00:00:00 00:00:[address] 3.430.2.7 0.2.7.3.698 Ho spita .3.161173 084.8 l .8 2022-07-22 2022-07-22 Travel 1.2.840.1 1.2.093.100 [id number] Methodi 00:00:00 00:00:[address] 3.430.2.7 0.2.7.3.698 Ho spita .3.981666 084.8 l .8 2022-05-28 2022-05-28 Emergency X TREVER [facility] ERT [id number] Univers 17:47:00 22:35:00 MENDY khan [facility] 2022-05-28 2022-05-28 Emergency RosaliaLorena wharton [facility] 1.2.840.114 [id number] [facility] 17:47:00 22:35:00 Mendy Liriano [facility]GRANN [facility]13.10 [facility] 4.2.7.2.686 [facility] [id number] [address] 2022-04-22 2022-04-22 Emergency E AZNAUROVA-A MHBL MHBL 7500 MHBL 08:53:00 14:18:00 IZA LEBLANC 2022-03-26 2022-03-26 Emergency Sammy 1.2.840.1 [id number] Methodi 07:24:00 08:46:[address] 3.430.2.7 Hospit a .3.569965 l .8 2022-03-26 2022-03-26 Emergency Sammy 1.2.840.1 [id number] Methodi 07:24:00 08:46:[address] 3.430.2.7 Hospit a .3.060095 l .8 2022-03-26 2022-03-26 Travel 1.2.840.1 1.2.399.576 2775 [id number] Methodi 00:00:00 00:00:[address] 3.430.2.7 0.2.7.3.698 Ho spita .3.224400 084.8 l .8 2022-03-26 2022-03-26 Travel 1.2.840.1 1.2.795.778 5949 [id number] Methodi 00:00:00 00:00:[address] 3.430.2.7 0.2.7.3.698 Ho spita .3.495589 084.8 l .8 2022-02-26 2022-02-27 Emergency X [facility] [id number] Univers 22:26:00 00:44:00 AFSANEH khan [facility] 2022-02-26 2022-02-27 Emergency [facility] 1.2.755.571 [id number] [facility] 22:26:00 00:44:00 Afsaneh HUMPHREYS [facility].13.10 [facility] 4.2.7.2.686 [facility] [id number] [address] 2022-02-17 2022-02-18 Emergency Nuszen, 1.2.840.1 [id number] Methodi 21:45:00 01:49:[address] A[address]5518.1.[address] 3.430.2.7 Hospit a .3.261079 l .8 2022-02-17 2022-02-18 Emergency Nuszen, 1.2.840.1 [id number] Methodi 21:45:00 01:49:[address] A[address] 46804.1.[address] 3.430.2.7 Hospit a .3.446799 l .8 2022-02-17 2022-02-17 Travel 1.2.840.1 1.2.839.531 8596 [id number] Methodi 00:00:00 00:00:[address] 3.430.2.7 0.2.7.3.698 Ho spita .3.695875 084.8 l .8 2022-02-17 2022-02-17 Travel 1.2.840.1 1.2.974.820 2525 [id number] Methodi 00:00:00 00:00:[address] 3.430.2.7 0.2.7.3.698 Ho spita .3.632946 084.8 l .8 2020-12-31 2020-12-31 Emergency [place], [facility] 1.2.840.114 [id number] [facility] 02:02:00 03:26:00 Akiko [place] 350.1.13.10 i ty of [place] 4.2.7.2.686 [facility] [id number] [address] 2020-12-31 2020-12-31 Emergency [facility] 1.2.840.114 [id number] 02:02:00 03:26:00 Akiko [place] 350.1.13.10 [place] 4.2.7.2.686 [place] [id number] [facility] 2020-11-20 2020-11-20 Emergency [facility] 1.2.635.107 [id number] [facility] 11:47:00 15:01:00 John S [place] 350.1.13.10 i ty of [place] 4.2.7.2.686 [facility] [id number] [place] [address] [place] 2020-11-20 2020-11-20 [facility] [id number] 11:47:00 15:01:00 [place] 350.1.13.10 [place] 4.2.7.2.686 [place] [id number] [facility] 2020-09-26 2020-09-26 Emergency Tricia Herbert [facility] 1.2.840.114 [id number] Univers 18:51:00 22:39:00 Lluvia [place] 350.1.13.10 i ty of [place] 4.2.7.2.686 [facility] [id number] [address] 2020-09-26 2020-09-26 Emergency [place], Tricia [facility] 1.2.840.114 [id number] 18:51:00 22:39:00 Lluvia Humphreys 350.1.13.10 [place] 4.2.7.2.686 [place] [address] [id number] [facility] 2020-08-06 2020-08-06 Emergency X CHAPINCITO, [facility] ERT [id number] Univers 10:13:00 12:49:00 JOHN ity [facility] 2020-08-01 2020-08-03 Inpatient [facility] [id number] [facility] 09:14:00 03:39:32 [facility] 2020-07-17 2020-07-17 Emergency Wild Cowart [facility] 1.2.840 .114 [id number] [facility] 05:53:00 08:59:00 Dani Kauffman 350.1.13.10 [facility] 4.2.7.2.686 [place] [id number] 2020-07-17 2020-07-17 Emergency Wild Cowart [facility] 1.2.840 .114 [id number] 05:53:00 08:59:00 Dani Kauffman 350.1.13.10 [place] 4.2.7.2.686 [place] [address] [id number] 084 Results Test Description Test Time Test Comments Results Result Comments Source POCT TEST 2022-10-19 15:07:00 Test Item Value Reference Range Interpretation Comme nts POCT PREG (test code = 1605) negative On board controls acceptable with C Line (test code = 3574) present POCT PREG LOT # (test code = 3578) [id number] POCT PREG TEST DATE (test code = 3576) 02/03/2024 Lab Interpretation (test code = 27990-5) Normal [facility] (29172)2022-05-29 00:30:52 Test Item Value Reference Range Interpretation Comments NA (test code = 137 mmol/L 135-145 2764875331) K (test code = 3.9 mmol/L 3.5-5.0 9701390356) CL (test code = 107 mmol/L 98-108 4562942723) CO2 TOTAL (test code = 21 mmol/L 23-31 L 2319960594) AGAP (test code = 2-16 6214399783) BUN (test code = 9 mg/dL 7-23 4960788019) GLUCOSE (test code = 106 mg/dL 70-110 7526106059) CREATININE (test code = 0.81 mg/dL 0.50-1.04 9550132053) TOTAL BILI (test code = 0.4 mg/dL 0.1-1.6 7001754793) CALCIUM (test code = 8.7 mg/dL 8.6-10.6 6631160800) T PROTEIN (test code = 6.8 g/dL 6.3-8.2 7698201946) ALBUMIN (test code = 4.2 g/dL 3.5-5.0 5327548009) ALK PHOS (test code = 40 U/L 34-122 7345487737) ALTv (test code = 19 U/L 5-35 1742-6) AST(SGOT) (test code = 15 U/L 13-40 5671260945) eGFR (test code = mL/min/1.73m2 7725896740) TOBI (test code = TOBI) Association of [...] tests). Lab Interpretation Abnormal (test code = 27301-9) [facility] WITH [id number] 00:15:52 Test Item Value Reference Range Interpretation Comments WBC (test code = See_Comment [Automated message] 4290-2) The system [employer] generated this result transmitted ref erence range: 4.30 - 1 1.10 10*3/?L. The re ference range was not u sed to interpret this result as normal/abnor mal. RBC (test code = See_Comment [Automated message] 519-8) The system [employer] generated this result transmitted ref erence range: [...] RDW-SD (test code 42.8 fL 39.0-49.9 = 29396-8) RDW-CV (test code 13.1 % 12.0-15.5 = 788-0) PLT (test code = See_Comment [Automated message] 237-3) The system [employer] generated this result transmitted ref erence range: 166 - 35 8 10*3/?L. The re ference range was not u sed to interpret this result as normal/abnor mal. MPV (test code = 9.5 fL 9.5-12.9 23406-4) NRBC/100 WBC (test See_Comment [Automat ed message] code = 5862844072) The syste m which generated this result transmitted ref erence range: 0.0 - 10 .0 /100 WBCs. The refer ence range was not u sed to interpret this result as normal/abnor mal. NRBC x10^3 (test See_Comment [Automated message] code = 8557375882) The syste m which generated this result transmitted ref erence range: 10*3/?L. The reference range was not used to interpr et this result as normal/abnormal . GRAN MAT (NEUT) % 59.3 % (test code = 770-8) IMM GRAN % (test 0.10 % code = 0249936275) LYMPH % (test code 29.5 % = 736-9) MONO % (test code 7.1 % = 5905-5) EOS % (test code = 3.1 % 713-8) BASO % (test code 0.9 % = 706-2) GRAN MAT 4.17 10*3/uL 1.88-7.09 x10^3(ANC) (test code = 5827611857) IMM GRAN x10^3 0.00-0.06 (test code = 8945992194) LYMPH x10^3 (test 2.08 10*3/uL 1.32-3.29 code = 731-0) MONO x10^3 (test 0.50 10*3/uL 0.33-0.92 code = 742-7) EOS x10^3 (test 0.22 10*3/uL 0.03-0.39 code = 711-2) BASO x10^3 (test 0.06 10*3/uL 0.01-0.07 code = 704-7) [facility] [id number] 23:53:00 Test Item Value Reference Range Interpretation Comments POCT PREG (test code = 1605) negative On board controls acceptable with present C Line (test code = 3574) POCT PREG LOT # (test code = 3575) [id number] POCT PREG TEST DATE (test 09/26/2023 code = 3576) Lab Interpretation (test code = Normal 98867-3) [facility] CenterTHYROID STIMULATING [id number] 05:23:28 Test Item Value Reference Range Interpretation Comments TSH (test code = See_Comment [Automated message] 3455794003) The system [employer] generated this result transmitted ref erence range: 0.45 - 4 .70 mIU/L. The refe rence range was not u sed to interpret this result as normal/abnor mal. Lab Interpretation (test Normal code = 56553-7) [facility] CenterTROPONIN [id number] 05:05:05 Test Item Value Reference Interpretation Comments Range TROPONIN I (test 0.006 ng/mL See_Comment [Automated code = 1736635346) message] The system which generated this result [...] biotin. Lab Interpretation Normal (test code = 32857-2) [facility]PO[facility] [id number] 04:56:00 Test Item Value Reference Range Interpretation Comments POCT PREG (test code = 1605) negative Lab Interpretation (test code = Normal 42858-3) [facility] Center[facility] MET[facility]OLIC PANEL (72870)2022-02-27 04:46:44 Test Item Value Reference Range Interpretation Comments NA (test code = 137 mmol/L 135-145 9394109697) K (test code = 3.7 mmol/L 3.5-5 1440467486) CL (test code = 102 mmol/L 98-108 6909654574) CO2 TOTAL (test code 26 mmol/L 23-31 = 7864310079) AGAP (test code = 2-16 7849484268) BUN (test code = 8 mg/dL 7-23 4345611304) GLUCOSE (test code = 96 mg/dL 70-110 4284884883) CREATININE (test code 0.77 mg/dL 0.5-1.04 = 7737331236) TOTAL BILI (test code 0.4 mg/dL 0.1-1.1 = 8527683985) CALCIUM (test code = 9.2 mg/dL 8.6-10.6 8222040854) T PROTEIN (test code 7.2 g/dL 6.3-8.2 = 5569145756) ALBUMIN (test code = 4.5 g/dL 3.5-5 0696327841) ALK PHOS (test code = 58 U/L 34-122 0671221700) ALTv (test code = 30 U/L 5-35 2-6) AST(SGOT) (test code 17 U/L 13-40 = 7282855816) eGFR (test code = mL/min/1.73m2 5184735942) TOBI (test code = TOBI) Association of [...] or abnormalities in imaging tests). [facility] CenterLIPASE2022-09-02 04:46:44 Test Item Value Reference Range Interpretation Comments LIPASE (test code = 3937865584) 91 U/L 0-220 Lab Interpretation (test code = Normal 97013-6) [facility] CenterCBC WITH [id number] 04:33:23 Test Item Value Reference Range Interpretation Comments WBC (test code = See_Comment [Automated 1390-2) message] The sy stem which generated this [...] RDW-SD (test code = 41.0 fL 39-49.9 36068-6) RDW-CV (test code = 13.1 % 12-15.5 788-0) PLT (test code = See_Comment H [Automated 777-3) message] The sy stem which generated this result transmitted reference range : 166 - 358 10*3/ ?L. The reference r shira was not used to interpret this result as normal/abnormal . MPV (test code = 10.1 fL 9.5-12.9 94919-6) NRBC/100 WBC (test See_Comment [Automat ed code = 4433015796) message] The system which generated this result transmitted reference range : 0.0 - 10.0 /100 WBCs. The refer ence range was not u sed to interpret th is result as normal/abnormal . NRBC x10^3 (test code See_Comment [Auto mated = 0643830371) message] The s ystem which generated this result transmitted reference range : 10*3/?L. The reference range was not used to interpret this result as normal/abnormal . GRAN MAT (NEUT) % 52.2 % (test code = 770-8) IMM GRAN % (test code 0.30 % = 8266750470) LYMPH % (test code = 37.9 % 736-9) MONO % (test code = 5.9 % 5905-5) EOS % (test code = 3.1 % 713-8) BASO % (test code = 0.6 % 706-2) GRAN MAT x10^3(ANC) 4.83 10*3/uL 1.88-7.09 (test code = 8045453308) IMM GRAN x10^3 (test 0.03 10*3/uL 0-0.06 code = 9434514238) LYMPH x10^3 (test code 3.51 10*3/uL 1.32-3.29 H = 731-0) MONO x10^3 (test code 0.55 10*3/uL 0.33-0.92 = 742-7) EOS x10^3 (test code = 0.29 10*3/uL 0.03-0.39 711-2) BASO x10^3 (test code 0.06 10*3/uL 0.01-0.07 = 704-7) Lab Interpretation Abnormal (test code = 21994-3) [facility] CenterRAPID STREP SCREEN FOR GROUP [id number] 07:59:00 Test Item Value Reference Range Interpretation Comments Streptococcus pyogenes (group A) Negative Negative antigen (test code = 24017-0) Lab Interpretation (test code = Normal 66885-5) [facility] CenterCT HEAD WO [id number] 18:21:18No acute findings. HISTORY:Head trauma, mod-severe hit left head, near syncope, persistentsevere headache and dizziness TECHNIQUE: Noncontrast head CT was performed. COMPARISON:None FINDINGS: The ventricles and sulci are appropriate for patient's age. There is no midline shift. The basal cisterns are preserved. No largevascular territory infarction, intracranial hemorrhage or mass effect isseen. The extracranial tissues demonstrate no acute findings. [facility], Radiant Results Inft User - 11/20/2020 1:22PM [...] findings.IMPRESSIONNo acute findings.[facility] (NA, K, CL, CO2, GLUCOSE, BUN, CREATININE, CA)2020-11-20 18:00:40 Test Item Value Reference Range Interpretation Comments NA (test code = 137 mmol/L 135-145 0813032718) K (test code = 4.2 mmol/L 3.5-5.0 5016888979) CL (test code = 104 mmol/L 98-108 3233813291) CO2 TOTAL (test code = 22 mmol/L 23-31 L 4207515431) AGAP (test code = 2-16 0436855796) BUN (test code = 10 mg/dL 7-23 2974903052) GLUCOSE (test code = 150 mg/dL 70-110 H 6692897926) CREATININE (test code = 0.59 mg/dL 0.50-1.04 5247053915) CALCIUM (test code = 9.5 mg/dL 8.6-10.6 2626777470) eGFR (test code = mL/min/1.73m2 9369282572) TOBI (test code = TOBI) Association of [...] tests). Lab Interpretation Abnormal (test code = 57283-3) [facility] CenterPOCT [id number] 17:50:00 Test Item Value Reference Range Interpretation Comments POCT PREG (test code = 1605) negative On board controls acceptable with present C Line (test code = 3574) POCT PREG LOT # (test code = 3575) [id number] POCT PREG TEST DATE (test 05/27/2022 code = 3576) Lab Interpretation (test code = Normal 73905-1) [facility] CenterCB WITH [id number] 17:32:17 Test Item Value Reference Range Interpretation Comments WBC (test code = See_Comment [Automated 8570-2) message] The sy stem which generated this result transmitted reference range : 4.30 - 11.10 10*3/?L. The reference range was not used to interpret this result as normal/abnormal . RBC (test code = See_Comment [Automated 144-7) message] The sy stem which generated this [...] RDW-SD (test code = 40.4 fL 39.0-49.9 20320-3) RDW-CV (test code = 13.0 % 12.0-15.5 788-0) PLT (test code = See_Comment H [Automated 777-3) message] The sy stem which generated this result transmitted reference range : 166 - 358 10*3/ ?L. The reference r shira was not used to interpret this result as normal/abnormal . MPV (test code = 9.5 fL 9.5-12.9 50616-2) NRBC/100 WBC (test See_Comment [Automat ed code = 2626954290) message] The system which generated this result transmitted reference range : 0.0 - 10.0 /100 WBCs. The refer ence range was not u sed to interpret th is result as normal/abnormal . NRBC x10^3 (test code <0.01 See_Comment [Auto mated = 3453296340) message] The s ystem which generated this result transmitted reference range : 10*3/?L. The reference range was not used to interpret this result as normal/abnormal . GRAN MAT (NEUT) % 83.0 % (test code = 770-8) IMM GRAN % (test code 0.70 % = 8520653715) LYMPH % (test code = 12.5 % 736-9) MONO % (test code = 3.7 % 5905-5) EOS % (test code = 0.0 % 713-8) BASO % (test code = 0.1 % 706-2) GRAN MAT x10^3(ANC) 8.41 10*3/uL 1.88-7.09 H (test code = 7698808048) IMM GRAN x10^3 (test 0.07 10*3/uL 0.00-0.06 H code = 7660784847) LYMPH x10^3 (test code 1.26 10*3/uL 1.32-3.29 L = 731-0) MONO x10^3 (test code 0.37 10*3/uL 0.33-0.92 = 742-7) EOS x10^3 (test code = <0.03 0.03-0.39 L 711-2) BASO x10^3 (test code <0.03 0.01-0.07 = 704-7) Lab Interpretation Abnormal (test code = 18548-3) [facility] CenterPOCT [id number] 02:56:00 Test Item Value Reference Range Interpretation Comments POCT PREG (test code = 1605) negative On board controls acceptable with present C Line (test code = 3574) POCT PREG LOT # (test code = 3575) [id number] POCT PREG TEST DATE (test 02/25/2022 code = 3576) Lab Interpretation (test code = Normal 53846-6) [facility] CenterCHLAMYDIA GC DNA BY [id number] 14:24:00 Test Item Value Reference Range Interpretation Comments C. TRACHOMATIS DNA BY Negative Negative PCR (test code = CHLAMTDNA) N. GONORRHOEAE DNA BY Negative Negative Perfor med At: ST PCR (test code = [facility] Jacob CORDERO) [address] [place], [place] [address]ZbovrDaniele Rodrigues MD Ph:[phone] - DUP AB/PEL/SC/[id number] 14:12:00 [facility] : 1995 Sex: F Patient Name: FATMATA DEGROOT Unit No: [id number] EXAMS: CPT CODE: [id number] DUP AB/PEL/SC/LTD 15781 PELVIC ULTRASOUND, 08/01/2020: COMPARISON: CT pelvis dated [...] (1412) t.SDR.AJ13 Orig Print D/T: S: 08/01/2020(1415) [facility] NAME: FATMATA DEGROOT Radiology Department PHYS: Winter Wilkins MD [address] : 1995 AGE: 24 SEX: F [place], [place] [address] LOC: SANDY PHONE #: [phone] EXAM DATE: 08/01/2020 STATUS: REG ER FAX #: [phone] RAD NO: Page 1 Signed Report Patient Name: FATMATA DEGROOT Unit No: [id number] EXAMS: CPT CODE: [id number] DUP AB/PEL/SC/LTD 14583 (Continued) [facility] NAME: SARAH DEGROOTA Radiology Department PHYS: Winter Landaverde MD [address] : 1995 AGE: 24 SEX: F [place], [place] [address] LOC: SANDY PHONE #: [phone] EXAM DATE: 08/01/2020 STATUS: REG ER FAX #: [phone] RAD NO: Page 2 Signed Report- US TRANSVAGINAL W/[id number] 14:12:00 [facility] : 1995 Sex: F Patient Name: FATMATA DEGROOT Unit No: [id number] EXAMS: CPT CODE: [id number] US TRANSVAGINAL W/PELVIS 39504 PELVIC ULTRASOUND, 08/01/2020: COMPARISON: CT pelvis dated [...] Winter Mccollum MD; Wild Barrera Technologist: Alexandra Elder, [facility] Probe: [id number] Trnscrbd D/ (1412) tTARAR.AJ13 Orig Print D/T: S: 08/01/2020 (1415) [facility] NAME: FATMATA DEGROOT Radiology Department PHYS:CANAL.Winter Ortiz MD [address] : 1995 AGE: 24 SEX: F [place], [place] [address] LOC: F.ERS PHONE #: [phone] EXAM DATE: 08/01/2020 STATUS: REG ER FAX #: [phone] RAD NO: Page 1 Signed Report Patient Name: FATMATA DEGROOT Unit No: [id number] EXAMS: CPT CODE: [id number] US TRANSVAGINAL W/PELVIS 20375 (Continued) [facility] NAME: FATMATA DEGROOT Radiology Department PHYS: ELLIS.Winter Ortiz MD [address] : 1995 AGE: 24 SEX:F [place] [address] LOC: F.ERS PHONE #: [phone] EXAM DATE: 08/01/2020 S TATUS: REG ER FAX #: [phone] RAD NO: Page 2 Signed Report- US PELVIS [id number] 14:12:00 [facility] 1995 Sex: F Patient Name: FATMATA DEGROOT Unit No: [id number] EXAMS: CPT CODE: [id number] US PELVIS COMPLETE 52812 PELVIC ULTRASOUND, 08/01/2020: COMPARISON: CT pelvis dated [...] Print D/T: S: 08/01/2020 (1415) [facility] NAME: ZANEFATMATA Radiology Department PHYS: Winter Landaverde MD [address] : 1995 AGE: 24 SEX: F [place], [place] [address] LOC: ShaylaERS PHONE #: [phone] EXAM DATE: 08/01/2020 STATUS: REG ER FAX #: [phone] RAD NO: Page 1 Signed Report Patient Name: FATMATA DEGROOT Unit No: [id number] EXAMS: CPT CODE: [id number] US PELVIS COMPLETE 61921 (Continued) [facility] NAME: ZANEFATMATA Radiology Department PHYS: Winter Landaverde MD [address] : 1995 AGE: 24 SEX: F [place], [place] [address] LOC: SANDY PHONE #: [phone] EXAM DATE: 08/01/2020 STATUS: REG ER FAX #:[phone] RAD NO: Page 2 Signed Report- CT ABD PELVIS W/O CONT 2020-08-01 10:58:00 [facility] 1995 Sex: F Patient Name: FATMATA DEGROOT Unit No: [id number] EXAMS: CPT CODE: [id number] CT ABD PELVIS W/O CONT 58141 CT ABDOMEN/CT STONE SURVEY WITHOUT CONTRAST, 08/01/2020 [...] mm right middle lobe pulmonary nodule.[facility] NAME: FATMATA DEGROOT Radiology Department PHYS: CANALWinter Murray MD [address] : 1995 AGE: 24 SEX: F [place] [address] LOC: .ERS PHONE #: [phone] EXAM DATE: 08/01/2020 STATUS: [facility] ER FAX #: [phone] RAD NO: Page 1 Signed Report 1 Patient Name: FATMATA DEGROOT Unit No: [id number] EXAMS: CPT CODE: [id number] CT ABD PELVIS W/O CONT 21378 (Continued) CT PELVIS WITHOUT CONTRAST: No opaque [...] Winter Mccollum MD; Wild Barrera Technologist: Art Church RT, CT CTDI: 13.28 DLP: 653.43 Trnscrbd D/ (1058) tTARAR.AJ13 [facility] PHYS: Winter Landaverde MD [address] : 1995 AGE: 24 SEX: F [place] [address] LOC: ERS PHONE #: [phone] EXAM DATE: 08/01/2020TATUS: REG ER FAX #: [phone] RAD NO: Page 2 Signed Report 1 Patient Name: FATMATA DEGROOT Unit No: [id number] EXAMS: CPT CODE: [id number] CT ABD PELVIS W/O CONT 52741 (Continued) Orig Print D/T:S: 08/01/2020 (1101) [facility] NAME: FATMATA DEGROOT Radiology Department PHYS:Winter Landaverde MD [address] : 1995 AGE: 24 SEX: F [place], [place] [address] LOC: ShaylaERS PHONE #: [phone] EXAM DATE: 08/01/2020 STATUS: REG ER FAX #: [phone] RAD NO: Page 3 Signed Report 1UA RFLX MICR CULT IF [id number] 10:04:00 Test Item Value Reference Range Interpretation [...] culture: Suprapubic PainSpecimen Description: CLEAN CATCHUR HCG [id number] 10:04:00 Test Item Value Reference Range Interpretation [...] Description: CLEAN CATCHUA RFLX MICR CULT IF [id number] 10:03:00 Test Item Value Reference Range Interpretation [...] culture: Suprapubic PainSpecimen Description: CLEAN CATCHUR HCG [id number] 10:03:00 Test Item Value Reference Range Interpretation Comments UR HCG QUAL (test code = HCGQLU) Indication for culture: Suprapubic PainSpecimen Description: CLEAN CATCH [id number] 14:39:00 Test Item Value Reference Range Interpretation Comments APPEARANCE (test code = Hazy Clear A 7632960873) COLOR (test code = Yellow Yellow 2635519107) PH (test code = 4.8-8.0 7214543322) SP GRAVITY (test code = 1.003-1.030 1059615366) GLU U QUAL (test code = Normal Normal 0353721140) BLOOD (test code = Negative Negative INTERFERE NCE FROM 1460929415) ASCORBIC ACID M AY CAUSE FALSE NEG ATIVE RESULT KETONES (test code = Negative Negative 3044289993) PROTEIN (test code = Negative Negative 2887-8) UROBILIN (test code = Normal Normal 7074844577) BILIRUBIN (test code = Negative Negative 7131257474) NITRITE (test code = Negative Negative 8888919476) LEUK SILVINO (test code = Negative Negative 8240642537) RBC/HPF (test code = See_Comment [Autom ated message] 6556285194) The system [employer] generated this result transmitted ref erence range: 0 - 3 HP F. The reference range was not used to int erpret this result as normal/abnormal . WBC/HPF (test code = <1 See_Comment [Autom ated message] 0948915073) The system [employer] generated this result transmitted ref erence range: 0 - 5 HP F. The reference range was not used to int erpret this result as normal/abnormal . BACTERIA (test code = Few Negative A 6042781753) MUCOUS (test code = Slight Negative LPF A 0937365269) SQ EPITH (test code = HPF 7741141688) Lab Interpretation (test Abnormal code = 67952-6) [facility] [id number] 14:08:00 Test Item Value Reference Range Interpretation Comments POCT PREG (test code = 1605) negative On board controls acceptable with present C Line (test code = 3574) POCT PREG LOT # (test code = 3575) [id number] POCT PREG TEST DATE (test 2022-02-25 code = 3576) Lab Interpretation (test code = Normal 12920-5) [facility] WITH [id number] 12:41:00 Test Item Value Reference Range Interpretation [...] RDW-SD (test code = 40.8 fL 39-49.9 25273-0) RDW-CV (test code = 13.0 % 12-15.5 788-0) PLT (test code = See_Comment H [Automated 777-3) message] The sy stem which generated this result transmitted reference range : 166 - 358 10*3/ ?L. The reference r shira was not used to interpret this result as normal/abnormal . MPV (test code = 9.5 fL 9.5-12.9 90531-2) NRBC/100 WBC (test See_Comment [Automat ed code = 6335230340) message] The system which generated this result transmitted reference range : 0.0 - 10.0 /100 WBCs. The refer ence range was not u sed to interpret th is result as normal/abnormal . NRBC x10^3 (test code <0.01 See_Comment [Auto mated = 7032650545) message] The s ystem which generated this result transmitted reference range : 10*3/?L. The reference range was not used to interpret this result as normal/abnormal . GRAN MAT (NEUT) % 49.7 % (test code = 770-8) IMM GRAN % (test code 0.40 % = 1587440107) LYMPH % (test code = 37.6 % 736-9) MONO % (test code = 6.3 % 5905-5) EOS % (test code = 5.4 % 713-8) BASO % (test code = 0.6 % 706-2) GRAN MAT x10^3(ANC) 4.65 10*3/uL 1.88-7.09 (test code = 0564674025) IMM GRAN x10^3 (test 0.04 10*3/uL 0-0.06 code = 0306693366) LYMPH x10^3 (test code 3.52 10*3/uL 1.32-3.29 H = 731-0) MONO x10^3 (test code 0.59 10*3/uL 0.33-0.92 = 742-7) EOS x10^3 (test code = 0.51 10*3/uL 0.03-0.39 H 711-2) BASO x10^3 (test code 0.06 10*3/uL 0.01-0.07 = 704-7) Lab Interpretation Abnormal (test code = 47762-4) [facility] W/AUTO [id number] 07:27:00 Test Item Value Reference Range Interpretation [...] NORMAL code = PLTMR) AG HEPATITIS B [id number] 04:15:00 Test Item Value Reference Range Interpretation Comments AG HEPATITIS B SURFACE (test code NONREACTIVE NONREACTIVE = HBSAG) AB HEPATITIS C [id number] 04:15:00 Test Item Value Reference Range Interpretation Comments AB HEPATITIS C (test code = NONREACTIVE NONREACTIVE HCVAB) SIGNAL TO CUTOFF (test code = 0.13 <0.80 N CUTOFF) RUBELLA [id number] 04:15:00 Test Item Value Reference Range Interpretation Comments RUBELLA SCREEN 70.2 IUnit/ml Results >10. 0IUnits/ml (test code = are considered positive RUBSC) inaccordance wi th the CLSI guidelines and based on the [employer] S tandard for Anti-Rubell a serum as anindicator of immune status and a br eakpoint to detect mostseropositiv e persons. AB [id number] 04:15:00 Test Item Value Reference Range Interpretation Comments AB TREPONEMA (test code = TREPAB) NONREACTIVE NONREACTIVE AG HEPATITIS B [id number] 04:00:00 Test Item Value Reference Range Interpretation Comments AG HEPATITIS B SURFACE (test code NONREACTIVE NONREACTIVE = HBSAG) AB HEPATITIS C [id number] 04:00:00 Test Item Value Reference Range Interpretation Comments AB HEPATITIS C (test code = HCVAB) NONREACTIVE SIGNAL TO CUTOFF (test code = CUTOFF) <0.80 RUBELLA [id number] 04:00:00 Test Item Value Reference Range Interpretation Comments RUBELLA SCREEN 70.2 IUnit/ml Results >10. 0IUnits/ml (test code = are considered positive RUBSC) inaccordance wi th the CLSI guidelines and based on the [employer] S tandard for Anti-Rubell a serum as anindicator of immune status and a br eakpoint to detect mostseropositiv e persons. AB [id number] 04:00:00 Test Item Value Reference Range Interpretation Comments AB TREPONEMA (test code = TREPAB) NONREACTIVE NONREACTIVE CBC W/AUTO [id number] 00:36:00 Test Item Value Reference Range Interpretation [...] Date/Time Note Provider Source 2020-08-01 09:27:00-00:[address] [facility] EMERGENCY PROVIDER REPORT REPORT#:[id number] REPORT STATUS: Signed DATE:08/01/20 TIME: 926 PATIENT: FATMATA DEGROOT UNIT #: [id number] ROOM/BED: AGE: 24 SEX: F PCP PHYS: Wild Barrera MD SERVICE AUTHOR: Winter Mccollum MD * ALL edits or amendments must be made on the el [employer]/computer document * HPI-General Illness Free Text HPI [...] Result Date Time Pulse Ox 98 08/01 151 B/P 118/71 08/01 151 B/P Mean 86 08/01 1510 Temp 36.9 08/01 1510 Pulse 94 08/01 151 Resp 18 08/01 151 O2 Delivery Room air 08/01 924 Review of Vital Signs Reviewed Interpretation Diagnostics Lab Results Interpretation Results Laboratory Tests: 08/01 933 Urines Urine Color (YELLOW) YELLOW Urine Appearance (CLEAR) CLEAR Urine pH (5 - 9) 6.0 Ur Specific [place] (1.001 - 1.035) 1.015 Urine Protein (NEG) [...] 1135 Wet Prep - ORD VAGINAL 08/01 09 Occult Blood - ORD STOOL Recent Impressions: [...] 5 MG X1ED STA 08/01 1053 DC 08/01 PO 08/01 1200 1126 Central Nervous System Agents Sig/Mackenzie Start time Last Medication Dose Route Stop Time Status Admin Hydrocodone Bitart/ 1 TAB X1ED STA 08/01 1052 D Cr 08/01 Acetaminophen PO 08/01 1053 1109 Ketorolac 30 MG X1ED STA 08/01 1003 DC 08/01 Tromethamine IM 08/01 1004 1007 Gastrointestinal Drugs Sig/Mackenzie Start time Last Medication Dose Route Stop Time Status Admin Ondansetron Base 4 MG STAT STA 08/01 1052 DC SL 08/01 1053 1109 Patient Discharge Departure Vital Signs/Condition Vital Signs First Documented: Result Date Time Pulse Ox 99 08/01 0925 B/P 164/84 08/01 09 B/P Mean 110 08/01 09 O2 Delivery Room air 08/01 924 Temp 36.6 08/01 924 Pulse 107 08/01 924 Resp 18 08/01 924 Last Documented: Result Date Time Pulse Ox 98 08/01 1511 B/P 118/71 08/01 151 B/P Mean 86 08/01 151 Temp 36.9 08/01 151 Pulse 94 08/01 151 Resp 18 08/01 151 O2 Delivery Room air 08/01 0925 All vital signs available at the [...] symptoms should prompt an immediate return to [facility] or the closest emergency department or a call to 911. Electronically Signed by Winter Mccollum MD on at 1907 RPT #:[id number] END OF REPORT 2018-09-12 08:09:00-00:00 [id number] [facility] [address], [place] [address] PATIENT NAME: FATMATA DEGROOT ADMIT DATE: ACCOUNT NO: [id number] ROOM NO: [facility] AGE: 22 SEX: F ADMITTING PHYSICIAN: [...] transverse gaby paramjit delivery. DISCHARGE MEDICATIONS: Include [place], Motrin, an d vitamin. DISPOSITION: The patient [...] family. She was scheduled for followup in [facility] office in 2 weeks for incision check. Dictated By: Wild Barrera MD WT: DS:F.MARISOL/ANTONINA/NAYE PATIENT NAME: FATMATA DEGROOT [id number] Conf#: [id number]/DID#: [id number] Authenticated by Wild Barrera MD On 2018 03:49:44 PM Electronically Signed by Wild Barrera MD o n 09/12/18 at 1550 PATIENT NAME: FATMATA DEGROOT [id number] 2018-08-10 02:32:00-00:00 [id number] [facility] [address], [place] [address] PATIENT NAME: FATMATA DEGROOT ADMIT DATE: ACCOUNT NO: [id number] ROOM NO: 4402 AGE: 22 SEX: F ADMITTING PHYSICIAN: Wild Barrera MD ATTENDING PHYSICIAN: Wild Barrera MD OPERATION DATE: 07/16/2018 PREOPERATIVE DIAGNOSES: 1. Term . 2. Previous section. 3. Failure to progress in labor. POSTOPERATIVE DIAGNOSES: 1. Term . 2. Previous section. 3. Failure to progress in labor. SURGEON: Wild Barrera MD CARROTER: Ava Ware. PROCEDURES PERFORMED: Repeat low transverse cesa rean delivery. OPERATIVE FINDINGS: 1. Normal-appearing uterus, ovaries, and tubes. 2. Cephalic male , Apgars 8 and 8, weight 7 pounds 1 ounce. 3. Hemostatic. 4. All counts correct. ESTIMATED BLOOD LOSS: 600 mL. ANESTHESIA: Epidural. COMPLICATIONS: None. PATHOLOGY: None. STATEMENT OF MEDICAL NECESSITY: The linette konstantin is a 22-year-old G2, now P2, at [...] sterile fashion. Transverse PATIENT NAME: FATMATA DEGROOT [id number] skin incision was made through the previous [...] complications. Dictated By: Wild Barrera MD WT: OP:F.MARISOL/ANTONINA/NAYE Conf#: [id number]/DID#: [id number] Authenticated by Wild Barrera MD On 2018 08:01:31 AM Electronically Signed by Wild Barrera MD o n 08/23/18 at 0801 PATIENT NAME: FATMATA DEGROOT [id number] 2018-07-19 08:15:00-00:00 [facility]) OB Postpart Progr Note REPORT#:[id number] REPORT STATUS: Signed DATE:07/19/18 TIME: 814 PATIENT: FATMATA DEGROOT UNIT #: [id number] ROOM/BED: [address] : 94 AGE: 22 SEX: F ATTEND: Yamila Barrera MD ADM AUTHOR: Wild Barrera MD * ALL edits or amendments must be made on the [employer]/computer document * Subjective Subjective EGA weeks/days at [...] routine care, discharge today at 0816 RPT #:[id number] END OF REPORT 2018-07-18 07:34:00-00:00 [facility] OB Postpart Progr Note REPORT#:[id number] REPORT STATUS: Signed DATE:07/18/18 TIME: 07 PATIENT: FATMATA DEGROOT UNIT #: [id number] ROOM/BED: [address] : 94 AGE: 22 SEX: F ATTEND: Yamila Barrera MD ADM AUTHOR: Wild Barrera MD * ALL edits or amendments must be made on the [employer]/computer document * Subjective Subjective EGA weeks/days at [...] low FiO2 Mean Ox Delivery Rate 07/18 523 98.3 110 18 104/73 07/17 2357 97.6 105 18 102/60 07/17 2357 97.6 105 18 102/60 07/17 2028 98.6 119 18 104/63 07/17 1231 98.1 108 20 96/63 07/17 0811 98.4 120 20 103/67 Physical Exam Neuro: Exam: alert, oriented x3 Abdomen: soft, no abnormal tenderness, no guardi ng Incision site: well approximated edges, dry, no drainage, no inflammation Fundus: firm, below the umbilicus Lochia: normal Lower extremities: Edema: trace Diagnosis, Assessment Plan Diagnosis, Assessment Plan Assessment: nml progress Plan: routine care, circumcision toda y, discharge tomorrow at 0735 RPT #:[id number] END OF REPORT 2018-07-17 12:24:00-00:00 [facility] ([facility]) OB Postpart Progr Note REPORT#:[id number] REPORT STATUS: Signed DATE:07/17/18 TIME: 1224 PATIENT: FATMATA DEGROOT UNIT #: [id number] ROOM/BED: [address] : 94 AGE: 22 SEX: F ATTEND: Jordan Barrera MD ADM AUTHOR: Janee Castro MD * ALL edits or amendments must be made on the [employer]/computer document * Subjective Subjective EGA weeks/days at [...] % (Auto) (14.3 - 34.3 %) 26.9 [place] % (Auto) (5.1 - 10.4 %) 6.0 Eos % (Auto) (0.1 - 3.0 %) 1.0 Baso % (Auto) (0.1 - 1.0 %) 0.2 Neut # (Auto) (K/mm3) 7.9 Lymph # (Auto) (K/mm3) 3.3 [place] # (Auto) (K/mm3) 0.7 Eos # (Auto) (K/mm3) 0.12 Baso # (Auto) (K/mm3) 0.0 Immature Plt Fraction (0.0 - 10.8 %) 0.0 Diagnosis, Assessment Plan Diagnosis, Assessment Plan Free text A P: POD#1 s/p RLTCS given NRFHT Male, desires circ, plan w/ dr. barrera A+ Hct 35>30.6 meeting early milestones. Electronically Signed by Janee Castro MD on 07/17 at 1225 RPT #:[id number] END OF REPORT 2018-07-16 06:08:00-00:00 [facility] OB Delivery Note REPORT#:[id number] REPORT STATUS: Signed DATE:07/16/18 TIME: 607 PATIENT: FATMATA DEGROOT UNIT #: [id number] ROOM/BED: [address] : 94 AGE: 22 SEX: F ATTEND: Yamila Barrera MD ADM AUTHOR: Wild Barrera MD * ALL edits or amendments must be made on the el [employer]/computer document * OB Delivery Nursing Documentation Review [...] Steroids prior to arrival: Antibiotic prophylaxis given: evaluation at delivery: Delivery date A: Delivery time infant A: Birthweight (gm) A: Weight (lb) infant A: Weight (oz) infant A: Gender A: Male 1 minute A: 5 minutes infant A: 10 minutes infant A: Cord pH obtained A: Vacuum time infant A: Vacuum # pulls infant A: Vacuum # popoffs A: __ Provider comments on imported nursing data: [] Pre-delivery evaluation at delivery: NRP certified nisa medina EGA (weeks/days): 39 weeks Baby A Information Baby A information Delivery date: 07/16/18 Delivery time: 0635 status: live born Wt of baby (lbs/oz): 7/1 Gender: male 1 minute: 8 5 minutes: [...] delivery Mother's condition: mother stable Infant's condition: stable in nursery Op/Inv Proc Note - Brief )( Procedure(s) performed: repeat low transverse c/s )( Primary Surgeon: Agnes Barrera )( Infant And Toddler Teacher(s): Yasmin Ware )( Pre-procedure diagnosis: prev C/S, early labor, failure to progress in la bor, unable to augment )( Post-procedure diagnosis: same )(Technique/Procedure: LTCS Anesthesia: epidural anesthesia )( Estimated blood loss (ml): 600 )( Finding(s): nl ut/ov/tubes. hemostatic. counts correct Condition: stable at 0703 RPT #:[id number] END OF REPORT 2018-07-16 05:32:00-00:00 [facility]) Clinical Note REPORT#:[id number] REPORT STATUS: Signed DATE:07/16/18 TIME: 0532 PATIENT: FATMATA DEGROOT UNIT #: [id number] ROOM/BED: [address] : 94 AGE: 22 SEX: F ATTEND: Yamila Barrera MD ADM AUTHOR: Janee Castro MD * ALL edits or amendments must be made on the el [employer]/computer document * Clinical Note Note: 22 yo @ 39w4d presents in labor with SROM and preg c/b C/S x1 (desires TOLAC if laboring), BMI 40, anxiety, elevated bi le acids of 14, 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 ctx q1-2 min. 3 decels to 60s/m inimal variability on arrival with recovery - 0120: ROM, clear - 0200: /-3. fse placed given prolonged dece l @ 0150. recovery of tracing - 0300: /-3. prolonged decel x 5 min with ctx [...] Castro MD on 07/16 at 0535 RPT #:[id number] END OF REPORT 2018-07-16 03:26:00-00:00 [facility] ([facility]) OB Admission / H P REPORT#:[id number] REPORT STATUS: Signed DATE:07/16/18 TIME: 325 PATIENT: FATMATA DEGROOT UNIT #: [id number] ROOM/BED: [address] : 94 AGE: 22 SEX: F ATTEND: Jordan Barrera MD ADM AUTHOR: Janee Castro MD [...] Ephedrine Sulfate 10 MG ASDIR PRN 07/16 144 AC (ePHEDrine SULFATE IV 09/14 014 50 MG/ML 1ML AMP) Ephedrine Sulfate 10 MG ASDIR PRN 07/16 003 AC (ePHEDrine SULFATE IV 09/14 002 50 MG/ML 1ML AMP) Central Nervous System [...] Lactated Ringer's 1,000 ML ONCE ONE 07/16 144 DC (LACTATED RINGERS) IV 07/16 0204 Lactated Ringer's 250 ML ASDIR 07/16 014 AC (LACTATED RINGERS) IV 09/14 0144 Lactated Ringer's 1,000 ML ONCE ONE 07/16 003 DC (LACTATED RINGERS) IV 07/16 0049 Lactated Ringer's 250 ML ASDIR 07/16 0030 AC (LACTATED RINGERS) IV 09/14 0029 Dextrose/Lactated 1,000 ML ASDIR 07/16 0015 AC 07/16 Ringer's IV 09/14 0014 0116 (DEXTROSE 5% IN LACTATED RINGERS 1000 ML) Lactated Ringer's 2,000 ML ASDIR PRN 07/16 001 5 DC 07/16 (LACTATED RINGERS) IV 0117 Lactated Ringer's 1,000 ML ONCE ONE 07/16 0015 DC (LACTATED RINGERS) IV 07/16 0016 Gastrointestinal Drugs Sig/Mackenzie Start time Last Medication Dose Route Stop Time Status Admin Ondansetron HCl 4 MG Q6H PRN PRN 07/16 0145 AC (ZOFRAN 2 MG/ML 4 MG IV [...] ONCE ONE 07/16 0145 DC (EPIDURAL TRAY) [facility] 07/16 0146 Pharmacy Profile Note 1 EA ONCE ONE 07/16 0030 DC (EPIDURAL TRAY) [facility] 07/16 0031 Pharmacy Profile Note 1 EA ONCE 07/16 001 AC (EPIDURAL TRAY) [facility] 07/19 0014 Allergies Coded Allergies: tramadol (Mild, CHEST PAIN 06/27/18) morphine (SWELLING 07/16/18) Review of Systems GI: Reports: abdominal pain. : Reports: pelvic pain, . Systems reviewed negative: allergy/immun, cardio vascular, constitutional, CV, endocrine, ENT, eyes, heme, musculoskeletal, nay ro, psych, respiratory, skin Objective General VS: Last Documented: Result Date Time Pulse Ox 100 07/16 0259 Pulse 100 07/16 0259 B/P Mean 79.0 07/16 226 B/P 115/55 07/16 226 Temp 99.0 07/16 021 Physical Exam HEENT: normocephalic w/o injury Lungs: [...] % (Auto) (14.3 - 34.3 %) 27.0 [place] % (Auto) (5.1 - 10.4 %) 7.4 Eos % (Auto) (0.1 - 3.0 %) 1.3 Baso % (Auto) (0.1 - 1.0 %) 0.4 Neut # (Auto) (K/mm3) 7.1 Lymph # (Auto) (K/mm3) 3.0 [place] # (Auto) (K/mm3) 0.8 Eos # (Auto) [...] by Janee Castro MD on 07/16 at 0330 RPT #:[id number] END OF REPORT"
[2022-11-27] MEDS ORDERED: LIDOCAINE 1% W/EPI 1:100,000 50 ML MDV ONE (14:51)
[2022-11-27] MEDS ORDERED: LORAZEPAM 1 MG TABLET ONE (15:25)
--- NOTE | 2022-11-27 15:32 | ER ---
Nurse's Notes [facility] Name: Carla Duncan Age: 27 yrs Sex: Female : 1995 Arrival Date: 11/27/2022 Time: 14:00 Bed 17 Private MD: Diagnosis: Cutaneous abscess of the abdominal wall Presentation: 11/27 14:08 Chief complaint: Patient states: redness and tenderness to umbilicus that began 2 days ss ago. Coronavirus screen: Client denies travel out of the [place] in the last 14 days. Ebola Screen: Patient denies exposure to infectious person. Patient denies travel to an Ebola-affected area in the 21 days before illness onset. Initial Sepsis Screen: Does the patient meet any 2 criteria? No. Patient's initial sepsis screen is negative. Does the patient have a suspected source of infection? No. Patient's initial sepsis screen is negative. Risk Assessment: Do you want to hurt yourself or someone else? Patient reports no desire to harm self or others. Onset of symptoms was November 25, 2022. 14:08 Method Of Arrival: Ambulatory ss 14:08 Acuity: VENKATESH 4 ss Triage Assessment: 14:30 General: Appears in no apparent distress. uncomfortable, Behavior is calm. 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 - Social history:: Smoking status: Patient denies any tobacco usage or history of. Screenin:59 [facility] ED Fall Risk Assessment (Adult) History of falling in the last 3 months, db including since admission No falls in past 3 months (0 pts) Confusion or Disorientation No (0 pts) Intoxicated or Sedated No (0 pts) Impaired Gait No (0 pts) Mobility Assist Device Used No (0 pt) Altered Elimination No (0 pt) Score/Fall Risk Level 0 - 2 = Low Risk Oriented to surroundings, Maintained a safe environment. Abuse screen: Denies threats or abuse. Denies injuries from another. Nutritional screening: No deficits noted. Tuberculosis screening: No symptoms or risk factors identified. Assessment: 14:45 Reassessment: Patient appears in no apparent distress at this time. Patient and/or db family updated on plan of care and expected duration. Pain level reassessed. Patient is alert, oriented x 3, equal unlabored respirations, skin warm/dry/pink. Pain: Complains of pain in abdomen. GI: Reports lower abdominal pain. 16:00 Reassessment: Patient appears in no apparent distress at this time. Patient and/or db family updated on plan of care and expected duration. Pain level reassessed. Patient is alert, oriented x 3, equal unlabored respirations, skin warm/dry/pink. General: Appears in no apparent distress. comfortable, Behavior is calm, cooperative. Vital Signs: 14:08 BP 137 / 88; Pulse 101; Resp 16; Temp 98.3(TE); Pulse Ox 100% on R/A; Height 5 ft. 0 ss in. ; Pain 9/10; 14:47 BP 133 / 81; Pulse 95; Resp 16; Pulse Ox 100% on R/A; db 15:30 BP 126 / 68; Pulse 91; Resp 16; Pulse Ox 100% on R/A; db 14:08 Pain Scale: Adult ss ED Course: 14:02 Patient arrived in ED. rg4 14:07 Owen Caceres PA is PHCP. [facility] 14:07 Roosevelt Brown MD is Attending Physician. [facility] 14:09 Triage completed. ss 14:09 Arm band placed on right wrist. ss 15:11 Jasmyne Ross, JUDI is Primary Nurse. db 15:22 Assist provider with I \T\ D: of an abscess on Set up I\T\D tray. Performed by Owen MADSEN Patient tolerated well. 15:32 Tomy Duran MD is Referral Physician. [facility] 15:59 Patient has correct armband on for positive identification. Bed in low position. Call db light in reach. Side rails up X 1. Pulse ox on. NIBP on. 15:59 Patient did not have IV access during this emergency room visit. db Administered Medications: 14:45 Drug: Lidocaine-Epinephrine Infiltration -1%: (1:100,000) 20 ml Volume: 20 ml; Route: db Infiltration; 15:58 Follow up: Response: No adverse reaction db 15:18 Drug: LORazepam PO 1 mg Route: PO; db 15:58 Follow up: Response: No adverse reaction db 15:58 Drug: Doxycycline PO 100 mg Route: PO; db 15:58 Follow up: Response: No adverse reaction db Medication: 16:01 VIS not applicable for this client. db Outcome: 15:32 Discharge ordered by MD. lombardo 16:00 Discharged to home ambulatory. db 16:00 Condition: stable 16:00 Discharge instructions given to patient, Instructed on discharge instructions, follow up and referral plans. 16:24 Patient left the ED. db Signatures: Owen Caceres PA PA jmm Smirch, Shelby, RN RN Susannah Montes 4 Jasmyne Ross RN RN db
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
[2022-11-27] MEDS ORDERED: DOXYCYCLINE 100 MG CAP PO ONE (15:57)
[2022-11-27 16:39] VITALS: TEMP 98.3; O2SAT 100
[2022-11-27 16:48] VITALS: BP 126/68
== END 2022-11-27 16:24 | disposition home or self-care (01) ==
LOC: ER 14:00
PROC: 0H97XZZ Drainage of Abdomen Skin, External Approach (ICD-10-PCS; principal; 2022-11-27)
DX: L02.211 Cutaneous abscess of abdominal wall (principal)
CPT/HCPCS: 99284

== ENCOUNTER 2023-01-04 20:03 | Emergency (ER) | payer OTHER ==
--- OUTSIDE RECORDS SUMMARY | 2023-01-04 20:11 | XMS REPORT | Continuity of Care Document ---
:1995 Author Organization [facility] t Address [address] [place] [address] Care Team Providers Name Role Phone Asked, No Pcp Primary Care Physician Unavailable Tricia HERBERT Attending Clinician Unavailable Tricia Rice Attending Clinician JOHN BYERS Attending Clinician Unavailable Leah CHANCE, John F Attending Clinician Zaheer AREVALO, Nash Conteh Attending Clinician MENDY LIRIANO Attending Clinician Unavailable Lorena Simpson MD Attending Clinician [phone] Mendy Liriano MD Attending Clinician IZA DENSON Attending Clinician Unavailable Jessica AREVALO, Ania Attending Clinician AFSANEH CAR Attending Clinician Unavailable Stephy SAM, Afsaneh Alarcon Attending Clinician Carlos Hernandez DO Attending Clinician Gume CHANCE, Akiko Attending Clinician John Agarwal Attending Clinician JOHN RIVERA Attending Clinician Unavailable Wild Cowart MD Attending Clinician Dani Kauffman DO Attending Clinician Tricia HERBERT Admitting Clinician Unavailable LORENA SIMPSON Admitting Clinician Unavailable Wild Barrera Admitting Clinician Unavailable Payers Payer Name Policy Type Policy Number Effective Date Expiration Date S shobha MARISOL AMBETTER FROM [id number] 2020 [facility]00 [facility] [id number] 2019 00:00:00 Problems Condition Condition Condition Status Onset Resolution Last Treating Co mments Source Name Details Category Date Date Treatment Clinician Date Obesity Obesity Disease Active Univers (BMI (BMI 1-16 ity of 30-39.9) 30-39.9) 00:00: [place] [address] Medical Branch Urinary Urinary Disease Active Univers tract tract 5-29 ity of infection infection 00:00: [place] without without 00 Medical hematuria, hematuria, Br anch site site unspecifie unspecifie d d Supervisio Supervisio Disease Active U nivers n of other n of other 5-23 it y of high risk [place] antepartum antepartum Br anch Previous Previous Disease Active Unive rs 11-17 ity of delivery, delivery, 00:[place] ante[place] antepartum 00 Me dical Branch Desires Desires Disease Active Univers 11-17 ity of (vaginal (vaginal 00:00: [place] 00 Medical after after Branch ) ) trial trial Obesity in Obesity in Disease Active U nivers - ity of 00:00: [place] 00 Medical Branch Family Family Disease Active Univers history of history of 8- it y of spina spina 00:00: [place] bifida bifida 00 Medical Branch No known No known Disease Metho di active active st problems problems Hospit a l Allergies, Adverse Reactions, Alerts Allergy Allergy Status Severity Reaction(s) Onset Inactive Treating Comm ents Source Name Type Date Date Clinician AMOXICIL DRUG Active Rash Univers CONNOR INGREDI 6-19 ity of 00:00: [place] 00 Medical Branch IODINE DRUG Active Hives Univers INGREDI 6-19 ity of 00:00: [place] 00 Medical Branch Amoxicil Propensi Active Rash Univer s connor ty to 6-19 ity of adverse 00:00: [place] reaction 00 Medical s Branch Iodine Propensi Active Cough IV Univers ty to 6-19 contrast ity of adverse 00:00: [place] reaction 00 Medical s Branch Ketorola Propensi Active Other - See Has bad Univers c ty to comments 12-31 anxiety, ity of adverse 00:00: but can [place] reaction 00 take with Medic al s Benadryl Branch KETOROLA DRUG Active Other-Cmnt Univ ers C INGREDI 706 ity of 00:00: [place] 00 Medical Branch butorpha DA Active [place] [facility] nol 2-04 [facility] [place] butorpha DA Active MO tachycardic [facility] nol 2-04 [facility] 00:[facility]: [facility] [place] BUTORPHA DRUG Active Palpitations Un carolann NOL INGREDI 1-20 ity of TARTRATE 00:00: [place] 00 Medical Branch Butorpha Propensi Active Palpitations Univers nol ty to 1-20 ity of Tartrate adverse 00:00: [place] reaction Medical s Branch Butorpha Propensi Active Palpitations 2018-06 Methodi nol ty to 2-25 st Tartrate adverse 00:00: Hospita reaction 00 l s to drug morphine DA Active U 2018- [facility] 1-19 [facility] 00:00: [facility] [place] codeine DA Active CA 2019- [facility] 1-19 [facility] 00:00: [facility] [place] morphine DA Active U SWELLING 2019- [facility] 1-19 [facility] 00:00: [facility] 00 l [facility] [place] codeine DA Active CA nausea, [facility] headache -19 [facility] 00:00: [facility] 00 l of [place] tramadol DA Active CA 2017- [facility] 2-31 [facility] 00:00: [facility] 00 [facility] [place] tramadol DA Active CA CHEST PAIN 2017-06 [facility] 2- Woman's 00:00: Hospita 00 [...] TUSSIN DRUG Active Rash Univers DM COUGH - ity of MEDICINE 00:00: [place] 00 Medical Branch Tussin Propensi Active Rash Univers Dm Cough ty to -07 ity of Medicine adverse 00:00: [place] reaction 00 Medical s Branch No Known DA Active U [facility] Allergie 3-14 [facility] s 00:00: [facility] [place] Family History Family Member Diagnosis Comments Start Date Stop Date Source Natural mother [facility] Natural mother Menstrual problems [facility] Social History Social Habit Start Date Stop Date Quantity Comments Source Gender identity [facility] Sexual orientation [facility] Exposure to 2022-10-09 2022-10-19 Not sure University SARS-CoV-2 (event) 00:00:00 08:19:00 [facility] Alcohol intake 2022-07-22 2022-07-22 Current drinker [facility] dist 00:00:00 00:00:00 of alcohol Hospital (finding) History of Social 2022-07-22 2022-07-[address] function 00:00:00 00:00:00 Hospital Tobacco use and 2022-03-26 2022-03-26 Smokeless [facility] exposure 00:00:00 00:00:00 tobacco non-user Hospital Alcohol Comment 2016-04-28 2016-04-28 social, weekly [facility] 00:00:00 00:00:00 Hospital Sex Assigned At [birth year] [facility] 00:00:00 00:00:00 Hospital Smoking Status Start Date Stop Date Source Never smoked tobacco [facility] Medications Ordered Filled Start Stop Current Ordering Indication Dosage Frequency Signature Comments Components Source Medication Medication Date Date Medication? Clinician (SIG) Name Name cefTRIAXone No 1000mg 1,000 mg, Univers (ROCEPHIN) 12-15-20 IV ity of 1,000 mg in 04:00: 04:41 Piggyback, [place] NaCl 0.9% 00 :00 ONCE, 1 Medical (NS) 100 mL dose, On Bran ch MINI-BAG Wed12/14/22 at 2300, Administer over 30 Minutes, 100 mL
Reas on for Anti-Infec tive: Documented Infection< br>Documen jd Infection Site: Urine<br&g t;Duration of Therapy: Other (see Comments) ketorolac 2022- No 15mg 15 mg, Unive rs (TORADOL) 12-15 06-20 Slow IV ity of injection 02:30: 01:32 Push, [place] 15 mg 00 :00 ONCE, 1 Medical dose, On Branch 12/14/22 at 2130, RODRICK diphenhydrA 2022- No 25mg 25 mg, Uni vers MINE 12-15 Slow IV ity of (BENADRYL) 02:30: 01:32 Push, [place] injection 00 :00 ONCE, 1 Medical 25 mg dose, On Branch [facility] 12/14/22 at 2130, STAT metoclopram 2022- No 10mg 10 mg, Uni vers dio HCl 12-15 Slow IV ity of (REGLAN) 02:30: 01:32 Push, [place] injection 00 :00 ONCE, 1 Medical 10 mg dose, On Branch [facility] 12/14/22 at 2130, RODRICK acetaminoph 2022- No 1000mg 1,000 mg, Univers en 12-15 Oral, ity of (TYLENOL) 00:15: 00:10 ONCE, 1 [place] tablet 00 :00 dose, On Medical 1,000 mg [facility] 12/14/22 at 1915, RODRICK ondansetron 2022- No 4mg 4 mg, Slow Univers (ZOFRAN 12-14 IV Push, ity of (PF)) 23:45: 22:59 ONCE, 1 [place] injection 4 00 :00 dose, On Medi [place] mg [facility] 12/14/22 at 1845, RODRICK morpHINE (2 2022- No 4mg 4 mg, Slow Univers mg/mL) 12-14 IV Push, ity of injection 4 23:45: 23:00 [place]CE[place] 1 [place] mg 00 :00 dose, On Medical [facility] 12/14/22 at 1845, STAT NaCl 0.9% 2022- No 1000mL at 999 Uni vers (NS) bolus 12-14 mL/hr, ity of infusion 22:30: 02:04 1,000 mL, [place] as 1,000 mL 00 :00 IV Medical Infusion, Branch ONCE, 1 dose, On [facility] 12/14/22 at 1730, STAT ibuprofen 2022-0 Yes [id number] 600mg Take 1 Univers 600 mg 4-24 100 tablet by ity of tablet 00:00: mouth [place] 00 every 6 Medical (six) Branch hours as needed for Pain (scale 4-6). ibuprofen 2022-0 Yes [id number] 600mg Take 1 Univers 600 mg 4-24 [...] for up to 5 days. phenazopyri 3-0 2022- No 200mg Q.[id number] Take 1 Methodi dine 07-[id number] (Pyridium) 00:00: 05:59 3D (200 mg Hos radha 200 MG 00 :00 total) by l tablet mouth 3 (three) times a day as needed for bladder spasms for up to 3 days. phenazopyri 3-0 2023- No 200mg Q.[id number] Take 1 Methodi dine 07-[id number] (Pyridium) 00:00: 05:59 3D (200 mg Hos radha 200 MG 00 :00 total) by l tablet mouth 3 (three) times a day as needed for bladder spasms for up to 3 days. phenazopyri 2022-0 2022- No 200mg Q.[id number] Take 1 Methodi dine 07-[id number] (Pyridium) 00:00: 05:59 3D (200 mg Hos radha 200 MG 00 :00 total) by l tablet mouth 3 (three) times a day as needed for bladder spasms for up to 3 days. phenazopyri 0 2022- No 200mg Q.[id number] Take 1 Methodi dine 07-[id number] (Pyridium) 00:00: 05:59 3D (200 mg Hos radha 200 MG 00 :00 total) by l tablet mouth 3 (three) times a day as needed for bladder spasms for up to 3 days. phenazopyri 2022-0 2022- No 200mg Q.[id number] Take 1 Methodi dine 07-[id number] (Pyridium) 00:00: 05:59 3D (200 mg Hos radha 200 MG 00 :00 total) by l tablet mouth 3 (three) times a day as needed for bladder spasms for up to 3 days. phenazopyri 2022-0 2022- No 200mg Q.[id number] Take 1 Methodi dine 07-[id number] (Pyridium) 00:00: 05:59 3D (200 mg Hos radha 200 MG 00 :00 total) by l tablet mouth 3 (three) times a day as needed for bladder spasms for up to 3 days. phenazopyri 2022-0 2022- No 200mg Q.[id number] Take 1 Methodi dine 07-[id number] (Pyridium) 00:00: 05:59 3D (200 mg Hos radha 200 MG 00 :00 total) by l tablet mouth 3 (three) times a day as needed for bladder spasms for up to 3 days. phenazopyri 2022-0 2022- No 200mg Q.[id number] Take 1 Methodi dine 07-[id number] (Pyridium) 00:00: 05:59 3D (200 mg Hos radha 200 MG 00 :00 total) by l tablet mouth 3 (three) times a day as needed for bladder spasms for up to 3 days. phenazopyri 2022- No 200mg Q.[id number] Take 1 Methodi dine 07-[id number] (Pyridium) 00:00: 05:59 3D (200 mg Hos radha 200 MG 00 :00 total) by l tablet mouth 3 (three) times a day as needed for bladder spasms for up to 3 days. phenazopyri No 200mg Q.[id number] Take 1 Methodi dine 07-[id number] (Pyridium) 00:00: 05:59 3D (200 mg Hos radha 200 MG 00 :00 total) by l tablet mouth 3 (three) times a day as needed for bladder spasms for up to 3 days. diphenhydrA 2021-06 No 25mg 25 mg, Uni vers MINE 07-30 Oral, ity of (BENADRYL) 04:30: 04:21 ONCE, 1 [place] as tablet 25 00 :00 dose, On Medica l mg [facility] 05/28/22 at 2230, RODRICK FENTanyl PF 2021-06 No 75ug 75 mcg, Un [place] (SUBLIMAZE 07-30 Slow IV ity o f (PF)) 04:30: 03:51 Push, [place] injection 00 :00 ONCE, 1 Medical 75 mcg dose, On Replaced By [facility] 05/28/22 at 2230, Routine doxycycline 2021-06 No 100mg 100 mg, U nivers hyclate 07-30 Oral, ity of (Vibramycin 03:45: 03:51 [place]CE[place] 1 [place] capsule 00 :00 dose, On Medica l 100 mg Elicia [place] 05/28/22 at 2145, RODRICK
Re ason for Anti-Infec tive: Documented Infection< br>Documen jd Infection Site: Pelvic
Duration of Therapy: Other (see Comments) morpHINE (4 2021-06 No 4mg 4 mg, Slow Univers mg/mL) 07-30 IV Push, ity of injection 4 02:30: 02:47 ONCE, 1 [place] mg 00 :00 dose, On Medical [facility] 05/28/22 at 2030, STAT ketorolac 2021-06 No 15mg 15 mg, Unive rs (TORADOL) 07-30 Slow IV ity of injection 01:45: 01:01 Push, [place] 15 mg 00 :00 ONCE, 1 Medical dose, On Replaced By [facility] 05/28/22 at 1945, Routine iopamidol 2021-06 No [id number] 75mL 75 mL, Univers (ISOVUE 07-30 Intravenou ity o f 370-500 mL) 01:15: 01:15 s, ONCE, 1 [place] injection 00 :00 dose, On Medica l 75 mL [facility] 05/28/22 at 1915, Routine FENTanyl PF 2021-06 No 50ug 50 mcg, Un car[place]ann (SUBLIMAZE 07-30 Slow IV ity o f (PF)) 01:00: 00:11 Push, [place] injection 00 :00 ONCE, 1 Medical 50 mcg dose, On Replaced By [facility] 05/28/22 at 1900, Routine ondansetron 2021-06 No 4mg 4 mg, Slow Univers (ZOFRAN 07-30 IV Push, ity of (PF)) 00:15: 00:11 ONCE, 1 [place] injection 4 00 :00 dose, On Medi [place] mg [facility] 05/28/22 at 1815, RODRICK metroNIDAZO 2021-06 Yes [id number] 500mg Take 1 Univers LE 500 mg 2-01 tablet by ity o f tablet 00:00: mouth in [place] [address] the Medical morning Branch and 1 tablet in the evening. metroNIDAZO 2021-06 Yes [id number] 500mg Take 1 Univers LE 500 mg 2-01 tablet by ity o f tablet 00:00: mouth in [place] [address] the Medical morning Branch and 1 tablet in the evening. metroNIDAZO 2021-06 Yes [id number] 500mg Take 1 Univers LE 500 mg 2-01 tablet by ity o f tablet 00:00: mouth in [place] [address] the Medical morning Branch and 1 tablet in the evening. doxycycline 2021-06- No [id number] 100mg Take 1 Univers hyclate 100 07-29 capsule by i ty of mg capsule 00:00: 05:59 [place] 00 :00 the Medical morning Branch and 1 capsule in the evening. Do all this for 10 days. HYDROcodone 2021-06 No [id number] 1{tbl} Take 1 U nivers [...] ALPRAZolam Yes alprazolam U nivers 0.5 mg 9-03 0.5 mg ity of tablet 12:44: tablet [facility] bupropion Yes bupropion Uni vers HBr 02-28 HBr ity of (APLENZIN 12:44: [place] ORAL) [facility] FLUoxetine Yes fluoxetine U nivers 20 mg 02-28 20 mg ity of capsule 12:44: capsule [facility] ALPRAZolam Yes alprazolam U nivers 0.5 mg 02-28 0.5 mg ity of tablet 12:44: tablet [facility] bupropion Yes bupropion Uni vers HBr 02-28 HBr ity of (APLENZIN 12:44: [place] ORAL) [facility] FLUoxetine Yes fluoxetine U nivers 20 mg 02-28 20 mg ity of capsule 12:44: capsule [facility] ALPRAZolam Yes alprazolam U nivers 0.5 mg 02-28 0.5 mg ity of tablet 12:44: tablet [facility] bupropion Yes bupropion Uni vers HBr 02-28 HBr ity of (APLENZIN 12:44: [place] ORAL) [facility] FLUoxetine Yes fluoxetine U nivers 20 mg 02-28 20 mg ity of capsule 12:44: capsule [facility] famotidine No 20mg 20 mg, Univ ers [...] 0.5 mg ity of tablet 23:48: tablet [address] bupropion Yes bupropion Uni vers HBr 02-26 HBr ity of (APLENZIN 23:48: [place] ORAL) [address] [place] [address] FLUoxetine Yes fluoxetine U nivers 20 mg 02-26 20 mg ity of capsule 23:48: capsule [address] ciprofloxac 2021- No 500mg Q.5D Take [...] 7 days. phenazopyri 2021-0 2022- No 200mg Q.[id number] Take 1 Methodi dine 02-[id number] (PYRIDIUM) 00:00: 04:59 3D (200 mg Hos radha 200 MG 00 :00 total) by l tablet mouth 3 (three) times a day for 3 days. phenazopyri 2021-0 2022- No 200mg Q.[id number] Take 1 Methodi dine 02-[id number] (PYRIDIUM) 00:00: 04:59 3D (200 mg Hos radha 200 MG 00 :00 total) by l tablet mouth 3 (three) times a day for 3 days. phenazopyri 2022-0 2021- No 200mg Q.[id number] Take 1 Methodi dine 02-[id number] (PYRIDIUM) 00:00: 04:59 3D (200 mg Hos radha 200 MG 00 :00 total) by l tablet mouth 3 (three) times a day for 3 days. phenazopyri 2021-0 2021- No 200mg Q.[id number] Take 1 Methodi dine 02-[id number] (PYRIDIUM) 00:00: 04:59 3D (200 mg Hos radha 200 MG 00 :00 total) by l tablet mouth 3 (three) times a day for 3 days. phenazopyri 2021-0 2021- No 200mg Q.[id number] Take 1 Methodi dine 02-[id number] (PYRIDIUM) 00:00: 04:59 3D (200 mg Hos radha 200 MG 00 :00 total) by l tablet mouth 3 (three) times a day for 3 days. phenazopyri 2021-0 2021- No 200mg Q.[id number] Take 1 Methodi dine 02-[id number] (PYRIDIUM) 00:00: 04:59 3D (200 mg Hos radha 200 MG 00 :00 total) by l tablet mouth 3 (three) times a day for 3 days. phenazopyri 2021-0 2021- No 200mg Q.[id number] Take 1 Methodi dine 02-[id number] (PYRIDIUM) 00:00: 04:59 3D (200 mg Hos radha 200 MG 00 :00 total) by l tablet mouth 3 (three) times a day for 3 days. phenazopyri 2021-0 2021- No 200mg Q.[id number] Take 1 Methodi dine 02-[id number] (PYRIDIUM) 00:00: 04:59 3D (200 mg Hos radha 200 MG 00 :00 total) by l tablet mouth 3 (three) times a day for 3 days. phenazopyri 2021-0 2021- No 200mg Q.[id number] Take 1 Methodi dine 02-[id number] (PYRIDIUM) 00:00: 04:59 3D (200 mg Hos radha 200 MG 00 :00 total) by l tablet mouth 3 (three) times a day for 3 days. phenazopyri 2021-0 2021- No 200mg Q.[id number] Take 1 Methodi dine 02-[id number] (PYRIDIUM) 00:00: 04:59 3D (200 mg Hos radha 200 MG 00 :00 total) by l tablet mouth 3 (three) times a day for 3 days. phenazopyri 2021-0 2021- No 200mg Q.[id number] Take 1 Methodi dine 02-[id number] (PYRIDIUM) 00:00: 04:59 3D (200 mg Hos radha 200 MG 00 :00 total) by l tablet mouth 3 (three) times a day for 3 days. phenazopyri 2021-0 2021- No 200mg Q.[id number] Take 1 Methodi dine 02-[id number] (PYRIDIUM) 00:00: 04:59 3D (200 mg Hos radha 200 MG 00 :00 total) by l tablet mouth 3 (three) times a day for 3 days. phenazopyri 2021-0 2021- No 200mg Q.[id number] Take 1 Methodi dine 02-[id number] (PYRIDIUM) 00:00: 04:59 3D (200 mg Hos radha 200 MG 00 :00 total) by l tablet mouth 3 (three) times a day for 3 days. phenazopyri 2021-0 2021- No 200mg Q.[id number] Take 1 Methodi dine 02-[id number] (PYRIDIUM) 00:00: 04:59 3D (200 mg Hos radha 200 MG 00 :00 total) by l tablet mouth 3 (three) times a day for 3 days. phenazopyri 2021-0 2- No 200mg Q.[id number] Take 1 Methodi dine 02-[id number] (PYRIDIUM) 00:00: 04:59 3D (200 mg Hos radha 200 MG 00 :00 total) by l tablet mouth 3 (three) times a day for 3 days. phenazopyri 2021- No 200mg Q.[id number] Take 1 Methodi dine 02-[id number] (PYRIDIUM) 00:00: 04:59 3D (200 mg Hos radha 200 MG 00 :00 total) by l tablet mouth 3 (three) times a day for 3 days. phenazopyri 2021- No 200mg Q.[id number] Take 1 Methodi dine 02-[id number] (PYRIDIUM) 00:00: 04:59 3D (200 mg Hos radha 200 MG 00 :00 total) by l tablet mouth 3 (three) times a day for 3 days. phenazopyri 2021- No 200mg Q.[id number] Take 1 Methodi dine 02-[id number] (PYRIDIUM) 00:00: 04:59 3D (200 [...] 12/31/20 at Branch 0300, RODRICK ibuprofen Yes [id number] 800mg Take 1 U nivers 800 mg 7- tablet by ity of tablet 00:00: mouth [place] 00 every 8 Medical (eight) Branch hours as needed for Pain (scale 4-6). cyclobenzap Yes [id number] 10mg Take 1 Univers rine 10 mg 7- tablet by ity of tablet 00:00: mouth 3 [place] 00 (three) Medical times Branch daily as needed for Muscle Spasms. ibuprofen 2021- No [id number] 800mg Take 1 Univers 800 mg 12-31 tablet by ity of tablet 00:00: 00:00 mouth [place] 00 :00 every 8 Medical (eight) Branch hours as needed for Pain (scale 4-6). cyclobenzap 2021- No [id number] 10mg Take 1 Univers rine 10 mg [...] 1,000 mL 00 :00 IV Medical Infusion, [place] ONCE, 1 dose, [facility] 11/20/20 at 1530, STAT metoclopram 2020- No 10mg 10 mg, Uni vers dio HCl 11-20-26 Slow IV ity of (REGLAN) 20:15: 19:18 Push, [place] injection 00 :00 ONCE, 1 Medical 10 mg dose, [facility] 11/20/20 at 1515, RODRICK ketorolac 2020- No 30mg 30 mg, Unive rs (TORADOL) 11-20 Slow IV ity of injection 20:15: 19:18 Push, [place] 30 mg 00 :00 ONCE, 1 Medical dose, Wed Branch 11/20/20 at 1515, RODRICK
Fa culty member approving Restricted medication : JOHN RIEVRA diphenhydrA 2020- No 25mg 25 mg, Uni vers MINE 11-20 Slow IV ity of (BENADRYL) 20:15: 20:15 Push, [place] injection 00 :00 ONCE, 1 Medical 25 mg dose, Wed Branch 11/20/20 at 1515, STAT butalbital- Yes 1{tbl} 1 tablet, Univers acetaminoph 11-20 Oral, ity of en-caff 18:12: Q4HPRN, [place] (ESGIC) 27 Starting Medical 50-325-40 Wed Branch mg tablet 1 11/20/20 at tablet 1312, Until Discontinu ed, Routine, zofran ketorolac 2020-0 Yes [id number] 10mg Take 1 Un [place] 10 mg 5-26 tablet by ity of tablet 00:00: mouth [place] 00 every 6 Medical (six) Branch hours as needed for Pain (scale 4-6). cyclobenzap 2020-0 Yes [id number] 10mg Take 1 Univers rine 10 mg 5-26 tablet by ity of tablet 00:00: mouth 3 [place] 00 (three) Medical times Branch daily. ketorolac 2020-0 Yes [id number] 10mg Take 1 Un carolann 10 mg 5-26 tablet by ity of tablet 00:00: mouth [place] 00 every 6 Medical (six) Branch hours as needed for Pain (scale 4-6). cyclobenzap 2020-0 Yes [id number] 10mg Take 1 Univers rine 10 mg 5-26 tablet by ity of tablet 00:00: mouth 3 [place] 00 (three) Medical times Branch daily. ketorolac 2020-0 2021- No [id number] 10mg Take 1 U nivers 10 mg 5-26 09- tablet by ity of tablet 00:00: 00:00 mouth [place] 00 :00 every 6 Medical (six) Branch hours as needed for Pain (scale 4-6). cyclobenzap 2021- No [id number] 10mg Take 1 Univers rine 10 mg -02-26 tablet by ity of tablet [...] 09/26/20 Branch at 2245, RODRICK ondansetron Yes [id number] 4mg Take 1 Univers (ZOFRAN 4-01 tablet by ity of ODT) 4 mg 00:00: mouth [place] disintegrat 00 every 8 Medic al ing tablet (eight) Branch hours as needed for Nausea and Vomiting (N/V). ondansetron Yes [id number] 4mg Take 1 Univers (ZOFRAN 4-01 tablet by ity of ODT) 4 mg 00:00: mouth [place] disintegrat 00 every 8 Medic al ing tablet (eight) Branch hours as needed for Nausea and Vomiting (N/V). ondansetron Yes [id number] 4mg Take 1 Univers (ZOFRAN 4-01 tablet by ity of ODT) 4 mg 00:00: mouth [place] disintegrat 00 every 8 Medic al ing tablet (eight) Branch hours as needed for Nausea and Vomiting (N/V). ondansetron 2021- No [id number] 4mg Take 1 Univers (ZOFRAN 4-02-26 tablet by ity of ODT) 4 mg 00:00: 00:00 mouth [place] disintegrat 00 :00 every 8 Medic al ing tablet (eight) Branch hours as needed for Nausea and Vomiting (N/V). proMETHazin Yes [id number] 25mg Take 1 Univers e 25 mg 2-09 tablet by ity of tablet 00:00: mouth [place] 00 every 6 Medical (six) Branch hours as needed for Nausea and Vomiting (N/V). proMETHazin Yes [id number] 25mg Take 1 Univers e 25 mg 2-09 tablet by ity of tablet 00:00: mouth [place] 00 every 6 Medical (six) Branch hours as needed for Nausea and Vomiting (N/V). proMETHazin Yes [id number] 25mg Take 1 Univers e 25 mg 2-09 tablet by ity of tablet 00:00: mouth [place] 00 every 6 Medical (six) Branch hours as needed for Nausea and Vomiting (N/V). proMETHazin 2021- No [id number] 25mg Take 1 Univers e 25 mg [...] Wed Branch 07/17/20 at 0730, RODRICK
[facility] Rest[facility] medication : WILD COWART [...] Wed Branch 07/17/20 at 0730, RODRICK ibuprofen 2018- Yes 800mg Q6H Take 800 Met hodi [...] mouth. Hospita 500-60-15 17 l mg tablet 2018- Yes 1{packe Take 1 Univ ers vit [...] Name Td 2011-06-28 Completed University of 00:00:00 [facility] Td 2011-06-28 Completed University of 00:00:00 [facility] Td 2011-06-28 Completed University of 00:00:00 [facility] Td 2011-06-28 Completed University of 00:00:00 [facility] Td 2011-06-28 Completed University of 00:00:00 [facility] TD, NOS 2011-06-28 Completed University of 00:00:00 [facility] TD, NOS 2011-06-28 Completed University of 00:00:00 [facility] Td 2011-06-28 Completed University of 00:00:00 [facility] Vital Signs Vital Name Observation Time Observation Value Comments Source Systolic blood 2022-12-15 04:30:00 94 mm[Hg] Univer sity of pressure [place] [facility] Diastolic blood 2022-12-15 04:30:00 58 mm[Hg] Unive rsity of pressure [place] [facility] Heart rate 2022-12-15 04:30:00 88 /min Universi ty of [place] [facility] Respiratory rate 2022-12-15 04:30:00 13 /min Univ ersity of [place] [facility] Oxygen saturation in 2022-12-15 04:30:00 96 /min University of Arterial blood by [place] [employer] [place]ott Pulse oximetry Branch Body temperature 2022-12-15 04:00:00 37 [place] Univ ersity of [place] [facility] Body height 2022-12-14 20:54:00 152.4 cm [facility] [place] [facility] Body weight 2022-12-14 20:54:00 79.379 kg [facility] [place] [facility] BMI 2022-12-14 20:54:00 34.18 kg/m2 Universi ty [facility] [place] [facility] Systolic blood 2022-10-19 14:30:00 129 mm[Hg] Univer sity of pressure [place] [facility] Diastolic blood 2022-10-19 14:30:00 93 mm[Hg] [facility] Heart rate 2022-10-19 14:30:00 73 /min [facility] Respiratory rate 2022-10-19 14:30:00 14 /min [facility] Oxygen saturation in 2022-10-19 14:30:00 100 /min [facility] by [place] [employer] [facility] Body temperature 2022-10-19 13:22:00 37 [place] [facility] Body height 2022-10-19 13:22:00 152.4 cm [facility] Body weight 2022-10-19 13:22:00 79.833 kg [facility] BMI 2022-10-19 13:22:00 34.37 kg/m2 [facility] Systolic blood 2022-05-29 04:19:00 123 mm[Hg] [facility] Diastolic blood 2022-05-29 04:19:00 87 mm[Hg] [facility] Heart rate 2022-05-29 04:19:00 93 /min [facility] Respiratory rate 2022-05-29 04:19:00 18 /min [facility] Oxygen saturation in 2022-05-29 04:19:00 97 /min [facility] Arterial blood by [facility] Pulse oximetry Branch Body temperature 2022-05-28 23:42:00 37.11 [place] [facility] Body height 2022-05-28 23:42:00 152.4 cm [facility] Systolic blood 2022-02-27 05:31:00 130 mm[Hg] [facility] Diastolic blood 2022-02-27 05:31:00 87 mm[Hg] [facility] Heart rate 2022-02-27 05:31:00 98 /min [facility] Respiratory rate 2022-02-27 05:31:00 18 /min [facility] Oxygen saturation in 2022-02-27 05:31:00 99 /min [facility] Arterial blood by [facility] Pulse oxim[facility] Branch Body height 2022-02-27 03:38:00 152.4 cm [facility] Body weight 2022-02-27 03:38:00 82.101 kg [facility] BMI 2022-02-27 03:38:00 35.35 kg/m2 [facility] Body temperature 2022-02-27 03:36:00 36.28 [place] [facility] Systolic blood 2020-12-31 06:49:00 125 mm[Hg] [facility] Diastolic blood 2020-12-31 06:49:00 93 mm[Hg] [facility] Heart rate 2020-12-31 06:49:00 104 /min [facility] Body temperature 2020-12-31 06:49:00 36.83 [place] [facility] Respiratory rate 2020-12-31 06:49:00 15 /min [facility] Body height 2020-12-31 06:49:00 152.4 cm [facility] Body weight 2020-12-31 06:49:00 92.5 kg [facility] BMI 2020-12-31 06:49:00 39.83 kg/m2 [facility] Oxygen saturation in 2020-12-31 06:49:00 99 /min [facility] Arterial blood by [facility] P[facility] Systolic blood 2020-12-31 06:49:00 125 mm[Hg] [facility] Diastolic blood 2020-12-31 06:49:00 93 mm[Hg] [facility] Heart rate 2020-12-31 06:49:00 104 /min [facility] Body temperature 2020-12-31 06:49:00 36.83 [place] [facility] Respiratory rate 2020-12-31 06:49:00 15 /min [facility] Body height 2020-12-31 06:49:00 152.4 cm [facility] Body weight 2020-12-31 06:49:00 92.5 kg [facility] BMI 2020-12-31 06:49:00 39.83 kg/m2 [facility] Oxygen saturation in 2020-12-31 06:49:00 99 /min [facility] Arterial blood by [facility] Pulse oxim[facility] Branch Systolic blood 2020-11-20 19:58:00 146 mm[Hg] [facility] Diastolic blood 2020-11-20 19:58:00 95 mm[Hg] [facility] Heart rate 2020-11-20 19:58:00 98 /min [facility] Body temperature 2020-11-20 19:58:00 37.17 [place] [facility] Respiratory rate 2020-11-20 19:58:00 17 /min [facility] Oxygen saturation in 2020-11-20 19:58:00 100 /min [facility] Arterial blood by [facility] Pulse oximetry Branch Body weight 2020-11-20 16:43:00 92.534 kg [facility] BMI 2020-11-20 16:43:00 39.84 kg/m2 [facility] Systolic blood 2020-11-20 19:58:00 146 mm[Hg] [facility] Diastolic blood 2020-11-20 19:58:00 95 mm[Hg] [facility] Heart rate 2020-11-20 19:58:00 98 /min [facility] Body temperature 2020-11-20 19:58:00 37.17 [place] [facility] Respiratory rate 2020-11-20 19:58:00 17 /min [facility] Oxygen saturation in 2020-11-20 19:58:00 100 /min [facility] by [place] [employer] [facility] Body weight 2020-11-20 16:43:00 92.534 kg [facility] BMI 2020-11-20 16:43:00 39.84 kg/m2 [facility] Body height 2020-09-26 23:49:00 152.4 cm [facility] Body weight 2020-09-26 23:49:00 90.719 kg [facility] BMI 2020-09-26 23:49:00 39.06 kg/m2 [facility] Systolic blood 2020-09-26 23:45:00 103 mm[Hg] [facility] Diastolic blood 2020-09-26 23:45:00 62 mm[Hg] [facility] Heart rate 2020-09-26 23:45:00 107 /min [facility] Body temperature 2020-09-26 23:45:00 36.61 [place] [facility] Respiratory rate 2020-09-26 23:45:00 18 /min [facility] Oxygen saturation in 2020-09-26 23:45:00 97 /min [facility] by [place] [employer] [facility] Body height 2020-09-26 23:49:00 152.4 cm [facility] Body weight 2020-09-26 23:49:00 90.719 kg [facility] BMI 2020-09-26 23:49:00 39.06 kg/m2 [facility] Systolic blood 2020-09-26 23:45:00 103 mm[Hg] [facility] Diastolic blood 2020-09-26 23:45:00 62 mm[Hg] [facility] Heart rate 2020-09-26 23:45:00 107 /min [facility] Body temperature 2020-09-26 23:45:00 36.61 [place] [facility] Respiratory rate 2020-09-26 23:45:00 18 /min [facility] Oxygen saturation in 2020-09-26 23:45:00 97 /min [facility] [place] [employer] [facility] Systolic blood 2020-07-17 14:00:00 112 mm[Hg] [facility] Diastolic blood 2020-07-17 14:00:00 65 mm[Hg] [facility] Heart rate 2020-07-17 14:00:00 86 /min [facility] Respiratory rate 2020-07-17 14:00:00 20 /min [facility] Oxygen saturation in 2020-07-17 14:00:00 100 /min [facility] [place] [employer] [facility] Body temperature 2020-07-17 11:50:00 37.22 [place] [facility] Body weight 2020-07-17 11:50:00 86.183 kg [facility] BMI 2020-07-17 11:50:00 37.11 kg/m2 [facility] Systolic blood 2020-07-17 14:00:00 112 mm[Hg] [facility] Diastolic blood 2020-07-17 14:00:00 65 mm[Hg] [facility] Heart rate 2020-07-17 14:00:00 86 /min [facility] Respiratory rate 2020-07-17 14:00:00 20 /min [facility] Oxygen saturation in 2020-07-17 14:00:00 100 /min [facility] [place] [employer] [facility] Body temperature 2020-07-17 11:50:00 37.22 [place] [facility] Body weight 2020-07-17 11:50:00 86.183 kg [facility] BMI 2020-07-17 11:50:00 37.11 kg/m2 [facility] Systolic blood 2022-07-22 19:04:00 122 mm[Hg] [facility] Di[facility] blood 2022-07-22 19:04:00 72 [facility]Hg[facility] Heart rate 2022-07-22 19:04:00 72 /min [facility] Respiratory rate 2022-07-22 19:04:00 18 /min [facility] Oxygen saturation in 2022-07-22 19:04:00 100 /min [facility] Arterial blood by Pulse oximetry Body height 2022-07-22 17:04:00 157.5 cm [facility] Body weight 2022-07-22 17:04:00 85.276 kg [facility] BMI 2022-07-22 17:04:00 34.39 kg/m2 [facility] Body temperature 2022-07-22 17:04:00 36.72 [place] [facility] Systolic blood 2022-03-26 13:44:00 139 mm[Hg] [facility] Diastolic blood 2022-03-26 13:44:00 83 mm[Hg] [facility] Heart rate 2022-03-26 13:44:00 101 /min [facility] Respiratory rate 2022-03-26 13:44:00 18 /min [facility] Oxygen saturation in 2022-03-26 13:44:00 100 /min [facility] Arterial blood by Pulse oximetry Body temperature 2022-03-26 12:32:00 36.72 [place] [facility] Body height 2022-03-26 12:32:00 157.5 cm [facility] Body weight 2022-03-26 12:32:00 85.276 kg [facility] BMI 2022-03-26 12:32:00 34.39 kg/m2 [facility] Procedures Procedure Date / Time Performing Clinician Source Performed D-DIMER 2022-12-15 02:19:00 Tricia Herbert [facility] CT ABDOMEN PELVIS WO 2022-12-14 23:46:00 Tricia Herbert [facility] CONTRAST [facility] RAPID INFLUENZA A/B 2022-12-14 22:46:00 Tricia Herbert [facility] COVID-19 (ID NOW RAPID 2022-12-14 22:46:00 Tricia Herbert [facility] TESTING) [facility] POCT TEST 2022-12-14 21:51:00 Tricia Herbert [facility] LIPASE 2022-12-14 21:44:00 Tricia Herbert [facility] MAGNESIUM 2022-12-14 21:44:00 Tricia Herbert [facility] COMP. METABOLIC PANEL 2022-12-14 21:44:00 Tricia Herbert [facility] ([id number]) [facility] CBC WITH DIFF 2022-12-14 21:44:00 Tricia Herbert [facility] URINALYSIS 2022-12-14 21:44:00 Tricia Herbert [facility] CONSENT/REFUSAL FOR 2022-12-14 20:43:36 [facility] Un[facility]igned, No [facility] POCT TEST 2022-10-19 15:07:00 Vasu Hutson [facility] LIPASE 2022-10-19 13:44:00 Vasu Hutson [facility] COMP. METABOLIC PANEL 2022-10-19 13:44:00 Vasu Hutson [facility] ([id number]) [facility] CBC WITH DIFF 2022-10-19 13:44:00 Vasu Hutson [facility] CONSENT/REFUSAL FOR 2022-10-19 13:14:52 Doctor Unassigned, No [facility] Name [facility] URINE CULTURE 2022-07-22 19:12:00 [facility]OL[facility] 2022-07-22 17:33:00 ZaheerNash duong [facility] PANEL ESTIMATED GFR 2022-07-22 17:33:00 [facility]ONE PROTOCOL 2022-07-22 17:13:55 [facility]heerNash [facility] WITH PLATELET AND 2022-07-22 16:33:00 [facility] DIFFERENTIAL COMPREHENSIVE METABOLIC 2022-07-22 16:33:00 [facility] PANEL ESTIMATED GFR 2022-07-22 16:33:00 [facility] URINALYSIS SCREEN AND 2022-07-22 16:22:00 [facility] MICROSCOPY, WITH REFLEX TO CULTURE US PELVIS COMPLETE WITH 2022-05-29 02:07:00 Lorena Simpson [facility] TRANSVAGINAL [facility] CT ABDOMEN PELVIS W 2022-05-29 00:28:13 Lroena Simpson [facility] CONTRAST [facility] COMP. METABOLIC PANEL 2022-05-29 00:07:00 Lorena Simpson [facility] ([id number]) [facility] CBC WITH DIFF 2022-05-29 00:07:00 Lorena Simpson [facility] URINALYSIS 2022-05-28 23:56:00 Lorena Simpson [facility] POCT TEST 2022-05-28 23:53:00 Lorena Simpson [facility] CONSENT/REFUSAL FOR 2022-05-28 23:40:29 Doctor Unassigned, No Un [facility] DIAGNOSIS AND TREATMENT Name [facility] URINALYSIS 2022-03-26 13:06:00 [facility] QUALITATIVE, URINE 2022-03-26 13:06:00 [facility] S[facility] URINALYSIS 2022-03-26 13:06:00 [facility]CG QUALITATIVE, URINE 2022-03-26 13:06:00 [facility] SCREEN CBC WITH PLATELET AND 2022-03-26 12:46:00 [facility] DIFFERENTIAL COMPREHENSIVE METABOLIC 2022-03-26 12:46:00 [facility] CenterDavinaAnia beatty [facility] PANEL ESTIMATED GFR 2022-03-26 12:46:00 RicardoAnia Ghosh [facility] CBC WITH PLATELET AND 2022-03-26 12:46:00 RicardoWinslow Indian Healthcare CenterDavinaAnia beatty [facility] DIFFERENTIAL POCT TEST 2022-02-27 04:56:00 Afsaneh Car [facility] LIPASE 2022-02-27 04:04:00 Afsaneh Car [facility] TROPONIN I 2022-02-27 04:04:00 Afsaneh Car [facility] THYROID STIMULATING 2022-02-27 04:04:00 Afsaneh Car [facility] HORMONE [facility] COMP. METABOLIC PANEL 2022-02-27 04:04:00 Afsaneh Car [facility] ([id number]) [facility] CBC WITH DIFF 2022-02-27 04:04:00 Afsaneh Car [facility] URINALYSIS 2022-02-27 03:56:00 Afsaneh Car [facility] URINE DRUG (IMMUNOASSAY) 2022-02-27 03:56:00 [facility]fsaneh [facility] SCREEN W/O REFLEX NOTICE OF PRIVACY 2022-02-27 03:05:57 Doctor Unassigned, No Univ [facility] PRACTICES Name [facility] CONSENT/REFUSAL FOR 2022-02-27 03:04:00 Doctor Unassigned, No [facility] Name [facility] METABOLIC 2022-02-18 05:17:00 Carlos Hernandez [facility] PANEL ESTIMATED GFR 2022-02-18 05:17:00 Carlos Hernandez spital COMPREHENSIVE METABOLIC 2022-02-18 04:38:00 Carlos Hernandez [facility] PANEL ESTIMATED GFR 2022-02-18 04:38:[address] ABDOMEN PELVIS WO 2022-02-18 04:17:[address] [facility] CONTRAST URINE CULTURE 2022-02-18 04:00:00 Carlos Hernandez spital CBC WITH PLATELET AND 2022-02-18 04:00:00 Carlos Hernandez [facility] DIFFERENTIAL COMPREHENSIVE METABOLIC 2022-02-18 04:00:00 Carlos Hernandez [facility] PANEL ESTIMATED GFR 2022-02-18 04:00:00 Carlos Hernandez spital HCG QUALITATIVE, URINE 2022-02-18 02:50:[address] [facility] SCREEN URINALYSIS 2022-02-18 02:50:00 Carlos Hernandez spital RAPID STREP SCREEN FOR 2020-12-31 07:13:00 Akiko Dunaway [facility] GROUP A Medical Branch NOTICE OF PRIVACY 2020-12-31 06:34:54 Doctor Unassigned, No [facility] PRACTICES [facility] CONSENT/REFUSAL FOR 2020-12-31 06:34:35 Doctor Unassigned, [facility] CT HEAD WO CONTRAST 2020-11-20 18:18:22 John Rivera [facility] POCT TEST 2020-11-20 17:50:00 John Rivera [facility] BASIC METABOLIC PANEL 2020-11-20 17:24:00 John Rivera [facility] (NA, K, CL, CO2, Medical Branch GLUCOSE, BUN, CREATININE, CA) CBC WITH DIFF 2020-11-20 17:24:00 John Rivera [place] [facility] CONSENT/REFUSAL FOR 2020-11-20 16:36:59 Doctor Unassigned, No [facility] POCT TEST 2020-09-27 02:56:00 Tricia Herbert [facility] ASSIGNMENT OF BENEFITS 2020-09-27 01:35:31 Doctor Unassigned, No [facility] CONSENT/REFUSAL FOR 2020-09-26 23:26:24 Doctor Unassigned, No [facility] URINALYSIS 2020-07-17 14:08:00 [facility] POCT TEST 2020-07-17 14:08:00 Wild [facility]art [facility] CBC WITH DIFF 2020-07-17 12:25:00 [facility] NOTICE OF PRIVACY 2020-07-17 11:48:39 Doctor Unassigned, No Univ [facility] PRACTICES Name [facility] CONSENT/REFUSAL FOR 2020-07-17 11:44:41 Doctor Unassigned, No [facility]REAT[facility] Name [facility] Plan of Care Planned Activity Planned Date Details Comments Source Future Scheduled 2023-01-04 COVID-[address] [facility] Test 20:06:27 (#1) [code = COVID-19 VACCINE (#1)] Future Scheduled 2023-01-04 [facility] 20:06:27 screening (procedure) [code = 839254236] Future Scheduled 2023-01-04 [facility] 20:06:27 malignant neoplasm of cervix (procedure) [code = 674328685] Future Scheduled 2023-01-04 [facility] 20:06:27 [code = INFLUENZA VACCINE] Future Scheduled 2022-10-03 COVID-[address] [facility] Test 02:09:31 (#1) [code = COVID-19 VACCINE (#1)] Future Scheduled 2022-10-03 [facility] 02:09:31 screening (procedure) [code = 869885355] Future Scheduled 2022-10-03 [facility] 02:09:31 malignant neoplasm of cervix (procedure) [code = 628878760] Future Scheduled 2022-10-03 [facility] 02:09:31 [code = INFLUENZA VACCINE] Future Scheduled 2022-10-03 COVID-[address] [facility] [facility] Test 02:09:31 (#1) [code = COVID-19 VACCINE (#1)] Future Scheduled 2022-10-03 [facility] 02:09:31 screening (procedure) [code = 561512902] Future Scheduled 2022-10-03 [facility] 02:09:31 malignant neoplasm of cervix (procedure) [code = 893012846] Future Scheduled 2022-10-03 [facility] 02:09:31 [code = INFLUENZA VACCINE] Future Scheduled 2022-10-03 COVID-[address] [facility] [facility] 02:09:31 (#1) [code = COVID-19 VACCINE (#1)] Future Scheduled 2022-10-03 [facility] 02:09:31 screening (procedure) [code = 156749397] Future Scheduled 2022-10-03 [facility] 02:09:31 malignant neoplasm of cervix (procedure) [code = 326655292] Future Scheduled 2022-10-03 [facility] 02:09:31 [code = INFLUENZA VACCINE] Future Scheduled 2022-09-07 [facility] 16:46:36 (#1) [code = COVID-19 VACCINE (#1)] Future Scheduled 2022-09-07 [facility] 16:46:36 screening (procedure) [code = 934420041] Future Scheduled 2022-09-07 [facility] 16:46:36 malignant neoplasm of cervix (procedure) [code = 795829101] Future Scheduled 2022-09-07 [facility] 16:46:36 [code = INFLUENZA VACCINE] Future Scheduled 2022-09-07 [facility] 16:46:36 (#1) [code = COVID-19 VACCINE (#1)] Future Scheduled 2022-09-07 [facility] 16:46:36 screening (procedure) [code = 925487859] Future Scheduled 2022-09-07 [facility] 16:46:36 malignant neoplasm of cervix (procedure) [code = 117882357] Future Scheduled 2022-09-07 [facility] 16:46:36 [code = INFLUENZA VACCINE] Future Scheduled 2022-09-07 [facility] 16:46:36 (#1) [code = COVID-19 VACCINE (#1)] Future Scheduled 2022-09-07 [facility] 16:46:36 screening (procedure) [code = 021529402] Future Scheduled 2022-09-07 [facility] 16:46:36 malignant neoplasm of cervix (procedure) [code = 128410935] Future Scheduled 2022-09-07 [facility] 16:46:36 [code = INFLUENZA VACCINE] Future Scheduled 2022-07-30 COVID-[address] [facility] Test 22:48:12 (#1) [code = COVID-19 VACCINE (#1)] Future Scheduled 2022-07-30 [facility] 22:48:12 screening (procedure) [code = 368299883] Future Scheduled 2022-07-30 [facility] 22:48:12 malignant neoplasm of cervix (procedure) [code = 467725374] Future Scheduled 2022-07-30 [facility] 22:48:12 [code = INFLUENZA VACCINE] Future Scheduled 2022-07-23 COVID-[address] [facility] Test 22:23:51 (#1) [code = COVID-19 VACCINE (#1)] Future Scheduled 2022-07-23 [facility] 22:23:51 screening (procedure) [code = 197612999] Future Scheduled 2022-07-23 [facility] 22:23:51 malignant neoplasm of cervix (procedure) [code = 071298758] Future Scheduled 2022-07-23 [facility] 22:23:51 [code = INFLUENZA VACCINE] Future Scheduled 2022-07-23 COVID-[address] [facility] [facility] Test 14:05:40 (#1) [code = COVID-19 VACCINE (#1)] Future Scheduled 2022-07-23 [facility] 14:05:40 screening (procedure) [code = 338666850] Future Scheduled 2022-07-23 [facility] 14:05:40 malignant neoplasm of cervix (procedure) [code = 412153063] Future Scheduled 2022-07-23 [facility] 14:05:40 [code = INFLUENZA VACCINE] Future Scheduled 2022-07-16 [facility] 00:01:34 (#1) [code = COVID-19 VACCINE (#1)] Future Scheduled 2022-07-16 [facility] 00:01:34 screening (procedure) [code = 830879126] Future Scheduled 2022-07-16 [facility] 00:01:34 malignant neoplasm of cervix (procedure) [code = 700052338] Future Scheduled 2022-07-16 [facility] 00:01:34 [code = INFLUENZA VACCINE] Future Scheduled 2022-06-20 [facility] 00:27:46 (#1) [code = COVID-19 VACCINE (#1)] Future Scheduled 2022-06-20 [facility] 00:27:46 screening (procedure) [code = 448230864] Future Scheduled 2022-06-20 [facility] 00:27:46 malignant neoplasm of cervix (procedure) [code = 916881276] Future Scheduled 2022-06-20 [facility] 00:27:46 [code = INFLUENZA VACCINE] Future Scheduled 2022-06-12 [facility] 16:29:41 (#1) [code = COVID-19 VACCINE (#1)] Future Scheduled 2022-06-12 [facility] 16:29:41 screening (procedure) [code = 048252122] Future Scheduled 2022-06-12 [facility] 16:29:41 [code = INFLUENZA VACCINE] Future Scheduled 2022-04-29 [facility] 09:57:18 VACCINES (1 of 3 - 3-dose series) [code = HEPATITIS B VACCINES (1 of 3 - 3-dose series)] Future Scheduled 2022-04-29 [facility] [facility] Test 09:57:18 (#1) [code = COVID-19 VACCINE (#1)] Future Scheduled 2022-04-29 [facility] 09:57:18 screening (procedure) [code = 361238175] Future Scheduled 2022-04-29 [facility] Test 09:57:18 malignant neoplasm of cervix (procedure) [code = 499544350] Future Scheduled 2022-04-29 [facility] 09:57:18 [code = INFLUENZA VACCINE] Future Scheduled 2022-03-26 [facility] B [facility] 18:56:00 VACCINES (1 of 3 - 3-dose series) [code = HEPATITIS B VACCINES (1 of 3 - 3-dose series)] Future Scheduled 2022-03-26 COVID-[address] [facility] Test 18:56:00 (#1) [code = COVID-19 VACCINE (#1)] Future Scheduled 2022-03-26 [facility] 18:56:00 screening (procedure) [code = 637460002] Future Scheduled 2022-03-26 [facility] Test 18:56:00 malignant neoplasm of cervix (procedure) [code = 223153421] Future Scheduled 2022-03-26 [facility] 18:56:00 [code = INFLUENZA VACCINE] Future Scheduled 2022-03-26 [facility] 18:56:00 VACCINES (1 of 3 - 3-dose series) [code = HEPATITIS B VACCINES (1 of 3 - 3-dose series)] Future Scheduled 2022-03-26 [facility] (#1) [code = COVID-19 VACCINE (#1)] Future Scheduled 2022-03-26 [facility] 18:56:00 screening (procedure) [code = 613448068] Future Scheduled 2022-03-26 [facility] Test 18:56:00 malignant neoplasm of cervix (procedure) [code = 787325296] Future Scheduled 2022-03-26 [facility] 18:56:00 [code = INFLUENZA VACCINE] Future Scheduled 2022-03-26 [facility] Test 18:56:00 VACCINES (1 of 3 - 3-dose series) [code = HEPATITIS B VACCINES (1 of 3 - 3-dose series)] Future Scheduled 2022-03-26 COVID-[address] [facility] Test 18:56:00 (#1) [code = COVID-19 VACCINE (#1)] Future Scheduled 2022-03-26 [facility] 18:56:00 screening (procedure) [code = 686247380] Future Scheduled 2022-03-26 [facility] Test 18:56:00 malignant neoplasm of cervix (procedure) [code = 978118003] Future Scheduled 2022-03-26 [facility] 18:56:00 [code = INFLUENZA VACCINE] Future Scheduled 2022-03-26 [facility] 08:33:14 VACCINES (1 of 3 - 3-dose series) [code = HEPATITIS B VACCINES (1 of 3 - 3-dose series)] Future Scheduled 2022-03-26 COVID-[address] [facility] Test 08:33:14 (#1) [code = COVID-19 VACCINE (#1)] Future Scheduled 2022-03-26 [facility] 08:33:14 screening (procedure) [code = 287216772] Future Scheduled 2022-03-26 [facility] Test 08:33:14 malignant neoplasm of cervix (procedure) [code = 444371112] Future Scheduled 2022-03-26 [facility] Test 08:33:14 [code = INFLUENZA VACCINE] Future Scheduled COVID-[address] [facility] (1) [code = COVID-19 VACCINE (1)] Future Scheduled [facility] screening (procedure) [code = 677205265] Future Scheduled [facility] Test malignant neoplasm of cervix (procedure) [code = 773386111] Future Scheduled [facility] [code = INFLUENZA VACCINE] Encounters Start End Encounter Admission Attending Care Care Encounter Source Date/Time Date/Time Type Type Clinicians Facility Department ID 2023-01-04 Outpatient [facility] [id number] [place] 10:32:22 [id number] [facility] 2021-04-28 Emergency [facility] [id number] Univers 06:08:31 ity [facility] 2021-04-27 Emergency [facility] [id number] Univers 21:27:31 ity [facility] 2021-04-27 Emergency [facility] [id number] Univers 10:13:04 ity of [facility] 2021-04-26 Emergency [facility] [id number] Univers 18:11:30 ity [facility] 2022-12-14 2022-12-14 Emergency X Tricia HERBERT [facility] ERT [id number] Univers 15:55:00 23:49:00 ity [facility] 2022-12-14 2022-12-14 Emergency Tricia Herbert [facility] 1.2.840.114 10 [id number] Univers 15:55:00 23:49:00 Lluvia HUMPHREYS 350.1.13.10 i ty of [facility] 4.2.7.2.686 [facility] [id number] [address] 2022-10-19 2022-10-19 Emergency X LEAH, [facility] ERT [id number] Univers 08:24:00 11:10:00 FOLUSHO ity [facility] 2022-10-19 2022-10-19 [facility] 1.2.840.114 10 [id number] Univers 08:24:00 11:10:00 John HUMPHREYS 350.1.13.10 ity [facility] 4.2.7.2.686 [facility] [id number] [address] 2022-07-22 2022-07-22 Emergency Zaheer, 1.2.840.1 [id number] Methodi 10:01:00 13:05:00 Nash Conteh 52975.1.1 054 s t 3.430.2.7 Hospit a .3.845919 l .8 2022-07-22 2022-07-22 Emergency Zaheer, 1.2.840.1 [id number] Methodi 10:01:00 13:05:00 Nash Conteh 94888.1.1 054 s t 3.430.2.7 Hospit a .3.233969 l .8 2022-07-22 2022-07-22 Travel 1.2.840.1 1.2.987.909 0477 [id number] Methodi 00:00:00 00:00:[address] 3.430.2.7 0.2.7.3.698 Ho spita .3.145446 084.8 l .8 2022-07-22 2022-07-22 Travel 1.2.840.1 1.2.893.800 6454 044360 Methodi 00:00:00 00:00:[address] 3.430.2.7 0.2.7.3.698 Ho spita .3.969267 084.8 l .8 2022-05-28 2022-05-28 Emergency X TREVER [facility] ERT [id number] [facility] 17:47:00 22:35:00 MENDY itnirali [facility] 2022-05-28 2022-05-28 Emergency AuLorena hinojosa [facility] 1.2.840.114 [id number] [facility] 17:47:00 22:35:00 Mendy Liriano [facility] 350.1.13.10 ity [facility] 4.2.7.2.686 [facility] [id number] [address] 2022-04-22 2022-04-22 Emergency E AZNAUROVA-A MHBL MHBL 7500 MHBL 08:53:00 14:18:00 NANMALIA RODRIGUEZJANNA 2022-03-26 2022-03-26 Emergency Sammy 1.2.840.1 [id number] Methodi 07:24:00 08:46:[address] 3.430.2.7 Hospit a .3.388787 l .8 2022-03-26 2022-03-26 Emergency Sammy 1.2.840.1 [id number] Methodi 07:24:00 08:46:[address] 3.430.2.7 Hospit a .3.853170 l .8 2022-03-26 2022-03-26 Travel 1.2.840.1 1.2.326.724 7104 [id number] Methodi 00:00:00 00:00:[address] 3.430.2.7 0.2.7.3.698 Ho spita .3.696014 084.8 l .8 2022-03-26 2022-03-26 Travel 1.2.840.1 1.2.864.643 1934 [id number] Methodi 00:00:00 00:00:[address] 3.430.2.7 0.2.7.3.698 Ho spita .3.975613 084.8 l .8 2022-02-26 2022-02-27 Emergency X [facility] ERT [id number] [facility] 22:26:00 00:44:00 AFSANEH itnirali [facility] 2022-02-26 2022-02-27 Emergency [facility] 1.2.113.816 [id number] [id number] [facility] 22:26:00 00:44:00 Afsaneh HUMPHREYS 350.1.13.10 ity [facility] 4.2.7.2.686 [facility] [id number] [address] 2022-02-17 2022-02-18 Emergency Nuszen, 1.2.840.1 [id number] 2099 [id number] Methodi 21:45:00 01:49:[address]1.[address] 3.430.2.7 Hospit a .3.826050 l .8 2022-02-17 2022-02-18 Emergency Nuszen, 1.2.840.1 [id number] 2099 [id number] Methodi 21:45:00 01:49:[address] 75527.1.[address] 3.430.2.7 Hospit a .3.064128 l .8 2022-02-17 2022-02-17 Travel 1.2.840.1 1.2.612.194 5721 787342 Methodi 00:00:00 00:00:[address] 3.430.2.7 0.2.7.3.698 Ho spita .3.261035 084.8 l .8 2022-02-17 2022-02-17 Travel 1.2.840.1 1.2.340.430 7596 011650 Methodi 00:00:00 00:00:[address] 3.430.2.7 0.2.7.3.698 Ho spita .3.646300 084.8 l .8 2020-12-31 2020-12-31 Emergency Dunaway, [facility] 1.2.840.114 855 [id number] [facility] 02:02:00 03:26:00 Akiko Niland 350.1.13.10 i ty of [place] 4.2.7.2.686 [facility] [id number] [address] 2020-12-31 2020-12-31 Emergency Dunaway, [facility] 1.2.840.114 855 [id number] 02:02:00 03:26:00 Akiko Niland 350.1.13.[address] [place] [address] [place] [address] [id number] [facility] 2020-11-20 2020-11-20 Emergency Rivera, [facility] 1.2.545.179 2923 7828 [facility] 11:47:00 15:01:00 John S Niland 350.1.13.10 i ty of [place] 4.2.7.2.686 [facility] [id number] [address] 2020-11-20 2020-11-20 Emergency Rivera, [facility] 1.2.855.469 4430 [id number] 11:47:00 15:01:00 John S Niland 350.1.13.10 [place] [address] [place] [address] [id number] [facility] 2020-09-26 2020-09-26 Emergency Troy, K [facility] 1.2.840.114 [id number] [facility] 18:51:00 22:39:00 Lluvia Niland 350.1.13.10 i ty of [place] 4.2.7.2.686 [facility] [phone] [place] [address] [address] 2020-09-26 2020-09-26 Emergency Troy, K [facility] 1.2.840.114 83 [id number] 18:51:00 22:39:00 Lluvia Niland 350.1.13.10 [place] 4.2.7.2.686 [place] [id number] 084 2020-08-06 2020-08-06 Emergency X MIGUEL JACKEMILIA ERT [id number] Univers 10:13:00 12:49:00 [facility] 2020-08-03 [facility] [id number] [facility] 09:14:00 03:39:32 21 [facility] 2020-07-17 2020-07-17 Emergency Wild Cowart [facility] 1.2.840 .114 [id number] [facility] 05:53:00 08:59:00 Dani Kauffman 350.1.13.10 [facility] [address] [place] [id number] 2020-07-17 2020-07-17 Emergency Supa Wild Rodrigues [facility] 1.2.840 .114 [id number] 05:53:00 08:59:00 Dani Kauffman 350.1.13.10 [place] 4.2.7.2.686 [place] [id number] 084 Results Test Description Test Time Test Comments Results Result Comments Source D-DIMER 2022-12-15 03:05:08 Test Item Value Reference Range Interpretation Comme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 this result transmitted reference range : 10*3/?L. The reference range was not used to interpret this result as normal/abnormal . GRAN MAT (NEUT) % 49.7 % (test code = 770-8) IMM GRAN % (test code 0.40 % = 2494811038) LYMPH % (test code = 37.6 % 736-9) MONO % (test code = 6.3 % 5905-5) EOS % (test code = 5.4 % 713-8) BASO % (test code = 0.6 % 706-2) GRAN MAT x10^3(ANC) 4.65 10*3/uL 1.88-7.09 (test code = 7541477707) IMM GRAN x10^3 (test 0.04 10*3/uL 0-0.06 code = 4335670357) LYMPH x10^3 (test code 3.52 10*3/uL 1.32-3.29 H = 731-0) MONO x10^3 (test code 0.59 10*3/uL 0.33-0.92 = 742-7) EOS x10^3 (test code = 0.51 10*3/uL 0.03-0.39 H 711-2) BASO x10^3 (test code 0.06 10*3/uL 0.01-0.07 = 704-7) Lab Interpretation Abnormal (test code = 74716-5) [facility] W/AUTO [id number] 07:27:00 Test Item Value Reference Range Interpretation [...] NORMAL code = PLTMR) AG HEPATITIS B [id number] 04:15:00 Test Item Value Reference Range Interpretation Comments AG HEPATITIS B SURFACE (test code NONREACTIVE NONREACTIVE = HBSAG) AB HEPATITIS C [id number] 04:15:00 Test Item Value Reference Range Interpretation Comments AB HEPATITIS C (test code = NONREACTIVE NONREACTIVE HCVAB) SIGNAL TO CUTOFF (test code = 0.13 <0.80 N CUTOFF) RUBELLA [id number] 04:15:00 Test Item Value Reference Range Interpretation Comments RUBELLA SCREEN 70.2 IUnit/ml Results >10. 0IUnits/ml (test code = are considered positive RUBSC) inaccordance wi th the CLSI guidelines and based on the [employer] S tandard for Anti-Rubell a serum as anindicator of immune status and a br eakpoint to detect mostseropositiv e persons. AB [id number] 04:15:00 Test Item Value Reference Range Interpretation Comments AB TREPONEMA (test code = TREPAB) NONREACTIVE NONREACTIVE AG HEPATITIS B [id number] 04:00:00 Test Item Value Reference Range Interpretation Comments AG HEPATITIS B SURFACE (test code NONREACTIVE NONREACTIVE = HBSAG) AB HEPATITIS C [id number] 04:00:00 Test Item Value Reference Range Interpretation Comments AB HEPATITIS C (test code = HCVAB) NONREACTIVE SIGNAL TO CUTOFF (test code = CUTOFF) <0.80 RUBELLA [id number] 04:00:00 Test Item Value Reference Range Interpretation Comments RUBELLA SCREEN 70.2 IUnit/ml Results >10. 0IUnits/ml (test code = are considered positive RUBSC) inaccordance wi th the CLSI guidelines and based on the [employer] S tandard for Anti-Rubell a serum as anindicator of immune status and a br eakpoint to detect mostseropositiv e persons. AB [id number] 04:00:00 Test Item Value Reference Range Interpretation Comments AB TREPONEMA (test code = TREPAB) NONREACTIVE NONREACTIVE CBC W/AUTO [id number] 00:36:00 Test Item Value Reference Range Interpretation [...] Date/Time Note Provider Source 2020-08-01 09:27:00-00:00 [facility] EMERGENCY PROVIDER REPORT REPORT#:[id number] REPORT STATUS: Signed DATE:08/01/20 TIME: 926 PATIENT: FATMATA DEGROOT UNIT #: [id number] ROOM/BED: AGE: 24 SEX: F PCP PHYS: [...] Ox 98 08/01 1511 B/P 118/71 08/01 1510 B/P Mean 86 08/01 1510 Temp 36.9 08/01 1510 Pulse 94 08/01 1510 Resp 18 08/01 151 O2 Delivery Room air 08/01 09 Review of Vital Signs Reviewed Interpretation Diagnostics Lab Results Interpretation Results Laboratory Tests: 08/01 0934 Urines Urine Color (YELLOW) YELLOW Urine Appearance (CLEAR) CLEAR Urine pH (5 - 9) 6.0 Ur Specific [place] (1.001 - 1.035) 1.015 Urine Protein (NEG) [...] Impression By: Beatriz Agudelo MD ULTRASOUND - [facility] AB/PEL/SC/LTD 08/01 1330 Report Impression - Status: [...] follicles. Impression By: Beatriz Agudelo MD Re-Evaluation [facility] ED Course Medication(s) Ordered Medication(s) Ordered: Autonomic Drugs Sig/Mackenzie Start time Last Medication Dose Route Stop Time Status Admin Cyclobenzaprine HCl 5 MG X1ED STA 08/01 1053 DC 08/01 PO 08/01 1200 1126 Central Nervous System Agents Sig/Mackenzie Start time Last Medication Dose Route Stop Time Status Admin Hydrocodone Bitart/ 1 TAB X1ED STA 08/01 1052 DCr 08/01 Acetaminophen PO 08/01 1053 1109 Ketorolac [...] Ox 99 08/01 0925 B/P 164/84 08/01 0925 B/P Mean 110 08/01 0925 O2 Delivery Room air 08/01 09 Temp 36.6 08/01 0925 Pulse 107 08/01 0925 Resp 18 08/01 0925 Last Documented: Result Date Time Pulse Ox 98 08/01 1511 B/P 118/71 08/01 1511 B/P Mean 86 08/01 1511 Temp 36.9 08/01 151 Pulse 94 / 1511 Resp 18 08/01 1511 O2 Delivery Room air 08/01 0925 All [...] symptoms should prompt an immediate return to [facility] or the closest emergency department or a call to 911. Electronically Signed by Winter Mccollum MD on at [address] [facility] #:[id number] END OF REPORT 2018-09-12 08:09:00-00:00 [id number] [facility] [address] [place], [place] [address] PATIENT NAME: FATMATA DEGROOT ADMIT DATE: ACCOUNT NO: [id number] ROOM NO: [facility] AGE: 22 SEX: F ADMITTING PHYSICIAN: Wild [...] transverse gaby paramjit delivery. DISCHARGE MEDICATIONS: Include Lind, Motrin, an d vitamin. DISPOSITION: The patient [...] family. She was scheduled for followup in [facility] office in 2 weeks for incision check. Dictated By: Wild Barrera MD WT: DS:ASHOK/ANTONINA/NAYE PATIENT NAME: ZANEFATMATA [id number] Conf#: [id number]/DID#: [id number] Authenticated by Wild Barrera MD On 2018 03:49:44 PM Electronically Signed by Wild Barrera MD o n 09/12/18 at 1550 PATIENT NAME: ZANEFATMATA [id number] 2018-08-10 02:32:00-00:00 [id number] [facility] [address] [place], [place] [address] PATIENT NAME: FATMATA DEGROOT ADMIT DATE: 07/16 ACCOUNT NO: [id number] ROOM NO: F.4402 AGE: 22 SEX: F ADMITTING PHYSICIAN: Wild Barrera MD ATTENDING PHYSICIAN: Wild Barrera MD OPERATION DATE: 07/16/2018 PREOPERATIVE DIAGNOSES: 1. Term . 2. Previous section. 3. Failure to progress in labor. POSTOPERATIVE DIAGNOSES: 1. Term . 2. Previous section. 3. Failure to progress in labor. SURGEON: Wild Barrera MD PROCESS DEVELOPMENT CHEMIST: Ava Ware. PROCEDURES PERFORMED: Repeat low transverse [...] sterile fashion. Transverse PATIENT NAME: FATMATA DEGROOT [id number] skin incision was made through the previous [...] complications. Dictated By: Wild Barrera MD WT: OP:F.HIM/SHEJORDAN/NTS Conf#: [id number]/DID#: [id number] Authenticated by Wild Barrera MD On 2018 08:01:31 AM Electronically Signed by Wild Barrera MD o n 08/23/18 at 0801 PATIENT NAME: FATMATA DEGROOT [id number] 2018-07-19 08:15:00-00:00 REPLACED BY [facility] ([facility] OB Postpart Progr Note REPORT#:[id number] REPORT STATUS: Signed DATE:07/19/18 TIME: 814 PATIENT: FATMATA DERGOOT UNIT #: [id number] ROOM/BED: [address] : [birth year] AGE: 22 SEX: F ATTEND: Yamila Barrera MD ADM AUTHOR: Wild Barrera MD * ALL edits or amendments must be made on the el [employer]/computer document * Subjective Subjective EGA weeks/days at [...] routine care, discharge today at 0816 RPT #:[id number] END OF REPORT 2018-07-18 07:34:00-00:00 [facility] OB Postpart Progr Note REPORT#:[id number] REPORT STATUS: Signed DATE:07/18/18 TIME: 07 PATIENT: FATMATA DEGROOT UNIT #: [id number] ROOM/BED: [address] : [birth year] AGE: 22 SEX: F ATTEND: Yamila Barrera MD ADM AUTHOR: Wild Barrera MD * ALL edits or amendments must be made on the [employer]/computer document * Subjective Subjective EGA weeks/days at [...] 07/18 0524 98.3 110 18 104/73 07/17 2357 97.6 [...] toda y, discharge tomorrow at 0735 RPT #:[id number] END OF REPORT 2018-07-17 12:24:00-00:00 [facility] ([facility]) OB Postpart Progr Note REPORT#:[id number] REPORT STATUS: Signed DATE:07/17/18 TIME: 1224 PATIENT: FATMATA DEGROOT UNIT #: [id number] ROOM/BED: [address] : [birth year] AGE: 22 SEX: F ATTEND: Yamila Barrera MD ADM AUTHOR: Janee Castro MD * ALL edits or amendments must be made on the el [employer]/computer document * Subjective Subjective EGA weeks/days at [...] % (Auto) (14.3 - 34.3 %) 26.9 [place] % (Auto) (5.1 - 10.4 %) 6.0 Eos % (Auto) (0.1 - 3.0 %) 1.0 Baso % (Auto) (0.1 - 1.0 %) 0.2 Neut # (Auto) (K/mm3) 7.9 Lymph # (Auto) (K/mm3) 3.3 [place] # (Auto) (K/mm3) 0.7 Eos # (Auto) (K/mm3) 0.12 Baso # (Auto) (K/mm3) 0.0 Immature Plt Fraction (0.0 - 10.8 %) 0.0 Diagnosis, Assessment Plan Diagnosis, Assessment Plan Free text A P: POD#1 s/p RLTCS given NRFHT Male, desires circ, plan w/ dr. barrera A+ Hct 35>30.6 meeting early milestones. Electronically Signed by Janee Castro MD on 07/17 at 1225 RPT #:[id number] END OF REPORT 2018-07-16 06:08:00-00:00 [facility] ([facility]) OB Delivery Note REPORT#:[id number] REPORT STATUS: Signed DATE:07/16/18 TIME: 0608 PATIENT: FATMATA DEGROOT UNIT #: [id number] ROOM/BED: [address] : [birth year] AGE: 22 SEX: F [...] A: Delivery time infant A: Birthweight (gm) infant A: Weight (lb) infant A: Weight (oz) A: Gender A: Male 1 minute A: 5 minutes A: 10 minutes infant A: Cord pH obtained infant A: Vacuum time infant A: Vacuum # pulls A: Vacuum # popoffs infant A: __ Provider comments on imported nursing data: [] Pre-delivery [place] evaluation at delivery: NRP certified nisa medina EGA (weeks/days): 39 weeks Baby A Information Baby A information Delivery date: 07/16/18 Delivery time: 0635 status: live born Wt of baby (lbs/oz): 7/ Gender: male 1 minute: 8 5 minutes: [...] c/s )( Primary Surgeon: Agnes Barrera )( Repertoire Manager(s): Yasmin Ware )( Pre-procedure diagnosis: prev C/S, early labor, failure to progress in la bor, unable to augment )( Post-procedure diagnosis: same )(Technique/Procedure: LTCS Anesthesia: epidural anesthesia )( Estimated blood loss (ml): 600 )( Finding(s): nl ut/ov/tubes. hemostatic. counts correct Condition: stable at 0703 RPT #:[id number] END OF REPORT 2018-07-16 05:32:00-00:00 [facility] ([facility]) Clinical Note REPORT#:[id number] REPORT STATUS: Signed DATE:07/16/18 TIME: 05 PATIENT: FATMATA DEGROOT UNIT #: [id number] ROOM/BED: [address] : 94 AGE: 22 SEX: F ATTEND: Yamila Barrrea MD ADM AUTHOR: Janee Castro MD * ALL edits or amendments must be made on the el [employer]/computer document * Clinical Note Note: 22 yo [...] pitocin 1x1. epidural in place. - 0445: 70/-3. deep variab les noted with every contraction. resolved by 0500; however, started to have minimal variability and early decels. + scalp stim. discussed cat 2 tracing and concern of fail TOLAC given minimal change in cervix , decelerations, and baby still high. she would like to proceed with RLTCS MD Nando Electronically Signed by Janee Castro MD on 07/16 at 0535 RPT #:[id number] END OF REPORT 2018-07-16 03:26:00-00:00 [facility] OB Admission / H P REPORT#:[id number] REPORT STATUS: Signed DATE:07/16/18 TIME: 325 PATIENT: FATMATA DEGROOT UNIT #: [id number] ROOM/BED: [address] : [birth year] AGE: 22 SEX: F ATTEND: Jordan Barrera MD ADM AUTHOR: Janee Castro MD * ALL edits or amendments must be made on the [employer]/computer document * OB Admission H P Hx [...] PRN 07/16 0145 AC (ePHEDrine SULFATE IV 09/14 0144 50 MG/ML 1ML AMP) Ephedrine Sulfate 10 MG ASDIR PRN 07/16 0030 AC (ePHEDrine SULFATE IV 09/14 0029 50 MG/ML 1ML AMP) Central Nervous System Agents Sig/Mackenzie Start time Last Medication Dose Route Stop Time Status Admin Fentanyl Citrate 100 MCG ASDIR 07/16 014 CKD (SUBLIMAZE 2 ML) EPIDURAL 09/14 014 Fentanyl/Bupivacaine 150 ML ASDIR 07/16 014 AC HCl EPIDURAL 07/18 0137 (fentaNYL/ BUPIVACAINE HCL NS 0.9% - 150ML) Fentanyl Citrate 100 MCG ASDIR 07/16 0030 CKD (SUBLIMAZE 2 ML) EPIDURAL 09/14 0029 Fentanyl/Bupivacaine 150 ML ASDIR 07/16 0030 AC 07/16 HCl EPIDURAL 07/18 0020 0115 (fentaNYL/ BUPIVACAINE HCL NS 0.9% - [...] 07/16 0015 AC 07/16 Ringer's IV 09/14 001 0116 (DEXTROSE 5% IN LACTATED RINGERS 1000 ML) Lactated Ringer's 2,000 ML ASDIR PRN 07/16 0015 DC 07/16 (LACTATED RINGERS) IV 0117 Lactated Ringer's 1,000 ML ONCE ONE 07/16 14 DC (LACTATED RINGERS) IV 07/16 001 Gastrointestinal Drugs Sig/[place]ackenzie Start time Last Medication [...] Status Admin Oxytocin 500 ML ASDIR 07/16 14 AC (OXYTOCIN 30 UNITS/ IV 07/16 1014 500 ML NORMAL SALINE) Other Sig/Mackenzie Start time Last Medication Dose Route Stop Time Status Admin Pharmacy Profile Note 1 EA ONCE ONE 07/16 144 [place] (EPIDURAL TRAY[place] [facility] [place] 014 Pharmacy Profile Note 1 EA ONCE ONE 07/16 29 DC (EPIDURAL TRAY[place] [facility] [place] 30 Pharmacy Profile Note 1 EA ONCE 07/16 14 AC (EPIDURAL TRAY[place] [facility] [place] 0014 Allergies Coded Allergies: tramadol (Mild, CHEST PAIN 06/27/18) morphine (SWELLING 07/16/18) Review of Systems GI: Reports: abdominal pain. : Reports: pelvic pain, . Systems reviewed negative: allergy/immun, cardio vascular, constitutional, CV, endocrine, ENT, eyes, heme, musculoskeletal, nay ro, psych, respiratory, skin Objective General VS: Last Documented: Result Date Time Pulse Ox 100 07/16 0259 Pulse 100 07/16 0259 B/P Mean 79.0 07/167 B/P 115/55 07/16 226 Temp 99.0 07/16 [...] decelerations: variable Result Findings/Data: Laboratory Tests: 07/16 Hematology WBC (6.6 - 12.1 K/mm3) 11.2 [...] % (Auto) (14.3 - 34.3 %) 27.0 [place] % (Auto) (5.1 - 10.4 %) 7.4 Eos % (Auto) (0.1 - 3.0 %) 1.3 Baso % (Auto) (0.1 - 1.0 %) 0.4 Neut # (Auto) (K/mm3) 7.1 Lymph # (Auto) (K/mm3) 3.0 [place] # (Auto) (K/mm3) 0.8 Eos # (Auto) [...] Castro MD on 07/16 at 0339 RPT #:[id number] END OF REPORT
[2023-01-04 21:37] LABS: Specific Gravity 1.026 (1.005-1.030)
[2023-01-04 21:39] LABS: Urine Bacteria None Seen /HPF (<20); Urine Mucus Slight /HPF (None Seen); Urine RBC <5 /HPF (None Seen)
[2023-01-04 22:06] LABS: Absolute Lymphocytes (CBC) 2.7 K/uL (0.7-4.9); Lymphocytes % 38.4 % (15.3-44.8); MCV 91.3 fL (80-100); MPV 7.7 fL (7.6-11.3); RBC Red Blood Cell Count 4.16 M/uL (3.86-4.86)
[2023-01-04 22:20] LABS: Potassium 3.8 mEq/L (3.5-5.1)
--- NOTE | 2023-01-04 22:38 | RAD REPORT ---
EXAM DESCRIPTION: US - Transvaginal OB - 01/04/2023 10:27 pm CLINICAL HISTORY: VAGINAL BLEEDING COMPARISON: <Comparisons> FINDINGS: No IUP identified. The uterus measures 9.5 cm x 4.6 cm x 6 cm with volume of 137 cc. The endometrial echo complex measur es 5 millimeters. The left ovary measures 3.1 x 2.9 x 2.6 cm with volume of 4.2 cc. Right ovary was n ot visualized and may have been obscured by bowel gas. Vascular flow is present in the left ovary. No free fluid. IMPRESSION: No IUP identified. Therefore, cannot exclude early normal , failed first trimes ter , or early ectopic. Vascular flow present in the left ovary. Right ovary not visualized.
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
[2023-01-04 23:50] VITALS: TEMP 97.9; O2SAT 100
[2023-01-04 23:52] VITALS: BP 116/79
== END 2023-01-04 23:28 | disposition home or self-care (01) ==
LOC: ER 20:03
DX: O20.0 Threatened abortion (principal); L03.115 Cellulitis of right lower limb; Z88.1 Allergy status to other antibiotic agents; Z88.5 Allergy status to narcotic agent; Z88.6 Allergy status to analgesic agent
CPT/HCPCS: 36415; 76817; 80048; 81015; 81025; 84702; 85025; 86900; 86901; 99284

== ENCOUNTER 2023-01-06 15:33 | Emergency (ER) | payer OTHER, SELFPAY ==
--- OUTSIDE RECORDS SUMMARY | 2023-01-06 16:11 | XMS REPORT | Continuity of Care Document ---
:1995 Author Organization [facility] t Address [address] [facility]. [address] [place] [address] Care Team Providers Name Role Phone Asked, No Pcp Primary Care Physician Unavailable MAICOL CHACON Attending Clinician Unavailable Tricia HERBERT Attending Clinician Unavailable Tricia Rice Attending Clinician JOHN BYERS Attending Clinician Unavailable John Hyman Attending Clinician Nash Schwab MD Attending Clinician MENDY LIRIANO Attending Clinician Unavailable Lorena Simpson MD Attending Clinician [phone] Mendy Liriano MD Attending Clinician IZA DENSON Attending Clinician Unavailable Ania Lopez MD Attending Clinician AFSANEH CAR Attending Clinician Unavailable Stephy SAM, Afsaneh Alarcon Attending Clinician Carlos Hernandez DO Attending Clinician Gume CHANCE, Akiko Attending Clinician John Agarwal S Attending Clinician JOHN RIVERA S Attending Clinician Unavailable Wild Cowart MD Attending Clinician Dani Kauffman DO Attending Clinician Tricia HERBERT Admitting Clinician Unavailable LORENA SIMPSON Admitting Clinician Unavailable Wild Barrera Admitting Clinician Unavailable Payers Payer Name Policy Type Policy Number Effective Date Expiration Date S ource MARISOL AMBETTER FROM [id number] [address] [facility] 00:00:00 [facility] [id number] 2019 00:00:00 Problems Condition Condition Condition Status Onset Resolution Last Treating Co mments Source Name Details Category Date Date Treatment Clinician Date Obesity Obesity Disease Active Univers (BMI (BMI 1-16 ity of 30-39.9) 30-39.9) 00:00: [address] Branch Urinary Urinary Disease Active Univers tract [...] rs 11-17 [place] ante[place] ante[place] d[place] Branch Desires Desires Disease Active Univers 11-17 ity of (vaginal (vaginal 00:00: [place] 00 Medical after after Branch ) ) trial trial Obesity in Obesity in Disease Active U nivers 11-17 ity of 00:00: [place] 00 Medical Branch Family Family Disease Active Univers history of history of 02-20 it y of spina spina 00:00: [place] bifida bifida 00 Medical [place] No known No known Disease Metho di [...] 2-04 [facility] [place] butorpha DA Active MO tachycardic [facility] nol 2-04 [facility]: [facility] [place] BUTORPHA DRUG Active Palpitations Un carolann NOL INGREDI 1-20 ity of TARTRATE 00:00: [place] 00 Medical Branch Butorpha Propensi Active Palpitations Univers nol ty to 1-20 ity of Tartrate adverse 00:00: [place] reaction 00 Medical s Branch Butorpha Propensi Active Palpitations 2018-06 Methodi nol ty to 2-25 st Tartrate adverse 00:00: Hospita reaction 00 l s to drug morphine DA Active U 2019- [facility] 1-19 [facility] 00:00: [facility] 00 [facility] [place] codeine DA Active RI 2019- [facility] 1-19 [facility] 00:00: [facility] [place] morphine DA Active U SWELLING 2019- [facility] 1-19 [facility] 00:00: [facility] 00 [facility] [place] codeine DA Active RI nausea, [facility] headache -19 [facility] 00:00: [facility] 00 [facility] [place] tramadol DA Active RI 2017-06 [facility] 2-31 [facility] 00:00: [facility] 00 [facility] [place] tramadol DA Active RI CHEST PAIN 2017-06 [facility] 2-31 [facility] 00:00: [facility] 00 [facility] [place] Tramadol Propensi Active Other (See headache Methodi ty to Comments) 9-14 st adverse 00:00: Hospita reaction 00 l s to drug ACETAMIN DRUG Active High SOB 2015- Univers OPHEN-CO 9-14 ity of DEINE 00:00: [place] 00 Medical Branch Acetamin Propensi Active Shortness of 0 Univers ophen-Co ty to Breath 9-14 ity of deine adverse 00:00: [place] reaction 00 Medical s Branch Acetamin Propensi Active Shortness Of 0 Methodi ophen-Co ty to Breath 9-14 st deine adverse 00:00: Hospita reaction 00 l s to drug TRAMADOL DRUG Active Anaphylaxis Uni vers INGREDI - ity of 00:00: [place] 00 Medical Branch TUSSIN DRUG Active Rash 0 Univers DM COUGH - ity of MEDICINE 00:00: [place] 00 Medical Branch Tussin Propensi Active Rash 0 Univers Dm Cough ty to 07 ity of Medicine adverse 00:00: [place] reaction 00 Medical s Branch No Known DA Active U [facility] Allergie 3-14 [facility] s 00:00: [facility] 00 [facility] [place] Family History Family Member Diagnosis Comments Start Date Stop Date Source Natural mother Diabetes [facility] Natural mother Menstrual problems [facility] Social History Social Habit Start Date Stop Date Quantity Comments Source Gender identity [facility] Sexual orientation [facility] Hospital Exposure to 2022-10-09 2022-10-19 Not sure University SARS-CoV-2 (event) 00:00:00 08:19:00 [facility] Alcohol intake 2022-07-22 2022-07-22 Current drinker Metho dist 00:00:00 00:00:00 of alcohol Hospital (finding) History of Social 2022-07-22 2022-07-[address] function 00:00:00 00:00:00 Hospital Tobacco use and 2022-03-26 2022-03-26 Smokeless Jain exposure 00:00:00 00:00:00 tobacco non-user Hospital Alcohol Comment 2016-04-28 2016-04-28 social, weekly Metho dist 00:00:00 00:00:00 Hospital Sex Assigned At [birth year] [facility] 00:00:00 00:00:00 Hospital Smoking Status Start Date Stop Date Source Never smoked tobacco [facility] Medications Ordered Filled Start Stop Current Ordering Indication Dosage Frequency Signature Comments Components Source Medication Medication Date Date Medication? Clinician (SIG) Name Name cefTRIAXone No 1000mg 1,000 mg, Univers (ROCEPHIN) 12-15-20 IV ity of 1,000 mg in 04:00: 04:41 [facility] [place] NaCl 0.9% 00 :00 ONCE, 1 Medical [...] :00 ONCE, 1 Medical dose, On Branch Wed12/14/22 at 2130, RODRICK diphenhydrA 2022- No 25mg 25 mg, Uni vers MINE 12-15 Slow IV ity of (BENADRYL) 02:30: 01:32 Push, [place] injection 00 :00 ONCE, 1 Medical 25 mg dose, On Branch [facility] 12/14/22 at 2130, STAT metoclopram 2022- No 10mg 10 mg, Uni vers dio HCl 12-15 Slow IV ity of (REGLAN) 02:30: 01:32 Push, [place] injection 00 :00 ONCE, 1 Medical 10 mg dose, On Branch [facility] 12/14/22 at 2130, RODRICK acetaminoph 2022- No 1000mg 1,000 mg, Univers en 12-15 Oral, ity of (TYLENOL) 00:15: 00:10 ONCE, 1 [place] tablet 00 :00 dose, On Medical 1,000 mg [facility] 12/14/22 at 1915, RODRICK ondansetron 2022- No 4mg 4 mg, Slow Univers (ZOFRAN 12-14 IV Push, ity of (PF)) 23:45: 22:59 ONCE, 1 [place] injection 4 00 :00 dose, On Medi [place]ott mg [facility] 12/14/22 at 1845, RODRICK morpHINE (2 2022- No 4mg 4 mg, Slow Univers mg/mL) 12-14 IV Push, ity of injection 4 23:45: 23:00 [place]CE[place] 1 [place] mg 00 :[place] dose, On Medical [facility] 12/14/22 at 1845, STAT NaCl 0.9% 2022- No 1000mL at 999 Uni vers (NS) bolus 12-14 mL/hr, ity of infusion 22:30: 02:04 1,000 mL, Ryan as 1,000 mL 00 :00 IV Medical Infusion, Branch ONCE, 1 dose, On [facility] 12/14/22 at 1730, STAT ibuprofen 2022-0 Yes [id number] 600mg Take 1 Univers 600 mg 4-24 100 tablet by ity of tablet 00:00: mouth [place] 00 every 6 Medical (six) Branch hours as needed for Pain (scale 4-6). ibuprofen 2022-0 Yes [id number] 600mg Take 1 Univers 600 mg 4-24 [...] for up to 5 days. phenazopyri 2022-0 2023- No 200mg Q.[id number] Take 1 Methodi dine 07-[id number] (Pyridium) 00:00: 05:59 3D (200 mg Hos radha 200 MG 00 :00 total) by l tablet mouth 3 (three) times a day as needed for bladder spasms for up to 3 days. phenazopyri 2023-0 2023- No 200mg Q.[id number] Take 1 Methodi dine 07-[id number] (Pyridium) 00:00: 05:59 3D (200 mg Hos radha 200 MG 00 :00 total) by l tablet mouth 3 (three) times a day as needed for bladder spasms for up to 3 days. phenazopyri 3-0 2022- No 200mg Q.[id number] Take 1 Methodi dine 07-[id number] (Pyridium) 00:00: 05:59 3D (200 mg Hos radha 200 MG 00 :00 total) by l tablet mouth 3 (three) times a day as needed for bladder spasms for up to 3 days. phenazopyri 3-0 2022- No 200mg Q.[id number] Take 1 Methodi dine 07-[id number] (Pyridium) 00:00: 05:59 3D (200 mg Hos radha 200 MG 00 :00 total) by l tablet mouth 3 (three) times a day as needed for bladder spasms for up to 3 days. phenazopyri 3-0 2023- No 200mg Q.[id number] Take 1 Methodi dine 07-[id number] (Pyridium) 00:00: 05:59 3D (200 mg Hos radha 200 MG 00 :00 total) by l tablet mouth 3 (three) times a day as needed for bladder spasms for up to 3 days. phenazopyri 3-0 2023- No 200mg Q.[id number] Take 1 Methodi dine 07-[id number] (Pyridium) 00:00: 05:59 3D (200 mg Hos radha 200 MG 00 :00 total) by l tablet mouth 3 (three) times a day as needed for bladder spasms for up to 3 days. phenazopyri 2023-0 2023- No 200mg Q.[id number] Take 1 Methodi dine 07-[id number] (Pyridium) 00:00: 05:59 3D (200 mg Hos radha 200 MG 00 :00 total) by l tablet mouth 3 (three) times a day as needed for bladder spasms for up to 3 days. phenazopyri 2022- No 200mg Q.[id number] Take 1 Methodi dine 07-[id number] (Pyridium) 00:00: 05:59 3D (200 mg Hos radha 200 MG 00 :00 total) by l tablet mouth 3 (three) times a day as needed for bladder spasms for up to 3 days. phenazopyri 2022- No 200mg Q.[id number] Take 1 Methodi dine 07-[id number] (Pyridium) 00:00: 05:59 3D (200 mg Hos radha 200 MG 00 :00 total) by l tablet mouth 3 (three) times a day as needed for bladder spasms for up to 3 days. phenazopyri 2022- No 200mg Q.[id number] Take 1 Methodi dine 07-[id number] (Pyridium) 00:00: 05:59 3D (200 mg Hos radha 200 MG 00 :00 total) by l tablet mouth 3 (three) times a day as needed for bladder spasms for up to 3 days. phenazopyri No 200mg Q.[id number] Take 1 Methodi dine 07-[id number] (Pyridium) 00:00: 05:59 3D (200 [...] ONCE, 1 Medical 75 mcg dose, On [facility] 05/28/22 at 2230, Routine doxycycline 2021-06 No 100mg 100 mg, U nivers hyclate 07-30 Oral, ity of (Vibramycin 03:45: 03:51 [place] capsule 00 :00 dose, On Medica l 100 mg [facility] 05/28/22 at 2145, RODRICK
Re ason for Anti-Infec tive: Documented Infection< br>Documen jd Infection Site: Pelvic
Duration of Therapy: Other (see Comments) morpHINE (4 2021-06 No 4mg 4 mg, Slow Univers mg/mL) 07-30 IV Push, ity of injection 4 02:30: 02:47 ONCE, 1 [place] mg 00 :00 dose, On Medical [facility] 05/28/22 at 2030, STAT ketorolac 2021-06 No 15mg 15 mg, Unive rs (TORADOL) 07-30 Slow IV ity of injection 01:45: 01:01 [place], [place] 15 mg 00 :00 ONCE, 1 Medical dose, On [facility] 05/28/22 at 1945, Routine iopamidol 2021-06 No [id number] 75mL 75 mL, Univers (ISOVUE 07-30 Intravenou ity o f 370-500 mL) 01:15: 01:15 s, ONCE, 1 [place] injection 00 :00 dose, On Medica l 75 mL [facility] 05/28/22 at 1915, Routine FENTanyl PF 2021-06 No 50ug 50 mcg, Un carolann (SUBLIMAZE 07-30 Slow IV ity o f (PF)) 01:00: 00:11 Push, [place] injection 00 :00 ONCE, 1 Medical 50 mcg dose, On [facility] 05/28/22 at 1900, Routine ondansetron 2021-06 No 4mg 4 mg, Slow Univers (ZOFRAN 07-30 IV Push, ity of (PF)) 00:15: 00:11 ONCE, 1 [place] injection 4 00 :00 dose, On Medi scott mg [facility] Branch 05/28/22 at 1815, RODRICK metroNIDAZO 2021-06 Yes [id number] 500mg Take 1 Univers LE 500 mg 2-01 tablet by ity o f tablet 00:00: mouth in [place] 00 the Medical morning Branch and 1 tablet in the evening. metroNIDAZO 2021-06 Yes [id number] 500mg Take 1 Univers LE 500 mg 2-01 tablet by ity o f tablet 00:00: mouth in [place] 00 the Medical morning Branch and 1 tablet in the evening. metroNIDAZO 2021-06 Yes [id number] 500mg Take 1 Univers LE 500 mg 2-01 tablet by ity o f tablet 00:00: mouth in [place] 00 the Medical morning Branch and 1 tablet in the evening. doxycycline 2021-06- No [id number] 100mg Take 1 Univers hyclate 100 07-29 [...] 0.5 mg ity of tablet 12:44: tablet [address] Branch bupropion 2021-0 Yes bupropion Uni vers HBr 02-28 HBr ity of (APLENZIN 12:44: [place] ORAL) [facility] FLUoxetine Yes fluoxetine U nivers 20 mg 02-28 20 mg ity of capsule 12:44: capsule [facility] ALPRAZolam Yes alprazolam U nivers 0.5 mg 02-28 0.5 mg ity of tablet 12:44: tablet [facility] bupropion Yes bupropion Uni vers HBr 02-28 HBr ity of (APLENZIN 12:44: [place] ORAL) [facility] FLUoxetine Yes fluoxetine U nivers 20 mg 02-28 20 mg ity of capsule 12:44: capsule [facility] ALPRAZolam Yes alprazolam U nivers 0.5 mg 02-28 0.5 mg ity of tablet 12:44: tablet [facility] bupropion Yes bupropion Uni vers HBr 02-28 HBr ity of (APLENZIN 12:44: [place] ORAL) [facility] FLUoxetine Yes fluoxetine U nivers 20 mg 02-28 20 mg ity of capsule 12:44: capsule [facility] famotidine 2021- No 20mg 20 mg, [...] 0.5 mg ity of tablet 23:48: tablet [facility] bupropion Yes bupropion Uni vers HBr 02-26 HBr ity of (APLENZIN 23:48: [place] ORAL) [facility] FLUoxetine Yes fluoxetine U nivers 20 mg 02-26 20 mg ity of capsule 23:48: capsule Medical Branch ciprofloxac 2022-0 2022- No 500mg Q.5D Take [...] times a day for 7 days. phenazopyri 202-0 2022- No 200mg Q.[id number] Take 1 Methodi dine 02-[id number] (PYRIDIUM) 00:00: 04:59 3D (200 mg Hos radha 200 MG 00 :00 total) by l tablet mouth 3 (three) times a day for 3 days. phenazopyri 2022-0 2022- No 200mg Q.[id number] Take 1 Methodi dine 02-[id number] (PYRIDIUM) 00:00: 04:59 3D (200 mg Hos radha 200 MG 00 :00 total) by l tablet mouth 3 (three) times a day for 3 days. phenazopyri 2022-0 2022- No 200mg Q.[id number] Take 1 Methodi dine 02-[id number] (PYRIDIUM) 00:00: 04:59 3D (200 mg Hos radha 200 MG 00 :00 total) by l tablet mouth 3 (three) times a day for 3 days. phenazopyri 2022-0 2022- No 200mg Q.[id number] Take 1 Methodi dine 02-[id number] (PYRIDIUM) 00:00: 04:59 3D (200 mg Hos radha 200 MG 00 :00 total) by l tablet mouth 3 (three) times a day for 3 days. phenazopyri 2021-0 2021- No 200mg Q.[id number] Take 1 Methodi dine 02-[id number] (PYRIDIUM) 00:00: 04:59 3D (200 mg Hos radha 200 MG 00 :00 total) by l tablet mouth 3 (three) times a day for 3 days. phenazopyri 2021-0 2021- No 200mg Q.[id number] Take 1 Methodi dine 02-[id number] (PYRIDIUM) 00:00: 04:59 3D (200 mg Hos radha 200 MG 00 :00 total) by l tablet mouth 3 (three) times a day for 3 days. phenazopyri 2021-0 2- No 200mg Q.[id number] Take 1 Methodi dine 02-[id number] (PYRIDIUM) 00:00: 04:59 3D (200 mg Hos radha 200 MG 00 :00 total) by l tablet mouth 3 (three) times a day for 3 days. phenazopyri 2-0 2022- No 200mg Q.[id number] Take 1 Methodi dine 02-[id number] (PYRIDIUM) 00:00: 04:59 3D (200 mg Hos radha 200 MG 00 :00 total) by l tablet mouth 3 (three) times a day for 3 days. phenazopyri 2022-0 2022- No 200mg Q.[id number] Take 1 Methodi dine 02-[id number] (PYRIDIUM) 00:00: 04:59 3D (200 mg Hos radha 200 MG 00 :00 total) by l tablet mouth 3 (three) times a day for 3 days. phenazopyri 2021-0 2021- No 200mg Q.[id number] Take 1 Methodi dine 02-[id number] (PYRIDIUM) 00:00: 04:59 3D (200 mg Hos radha 200 MG 00 :00 total) by l tablet mouth 3 (three) times a day for 3 days. phenazopyri 2021-0 2021- No 200mg Q.[id number] Take 1 Methodi dine 02-[id number] (PYRIDIUM) 00:00: 04:59 3D (200 mg Hos radha 200 MG 00 :00 total) by l tablet mouth 3 (three) times a day for 3 days. phenazopyri 2021-0 2021- No 200mg Q.[id number] Take 1 Methodi dine 02-[id number] (PYRIDIUM) 00:00: 04:59 3D (200 mg Hos radha 200 MG 00 :00 total) by l tablet mouth 3 (three) times a day for 3 days. phenazopyri 2021-0 2021- No 200mg Q.[id number] Take 1 Methodi dine 02-[id number] (PYRIDIUM) 00:00: 04:59 3D (200 mg Hos radha 200 MG 00 :00 total) by l tablet mouth 3 (three) times a day for 3 days. phenazopyri 2021-0 2021- No 200mg Q.[id number] Take 1 Methodi dine 02-[id number] (PYRIDIUM) 00:00: 04:59 3D (200 mg Hos radha 200 MG 00 :00 total) by l tablet mouth 3 (three) times a day for 3 days. phenazopyri 2021-0 2021- No 200mg Q.[id number] Take 1 Methodi dine 02-[id number] (PYRIDIUM) 00:00: 04:59 3D (200 mg Hos radha 200 MG 00 :00 total) by l tablet mouth 3 (three) times a day for 3 days. phenazopyri 2021- No 200mg Q.[id number] Take 1 Methodi dine 02-[id number] (PYRIDIUM) 00:00: 04:59 3D (200 mg Hos radha 200 MG 00 :00 total) by l tablet mouth 3 (three) times a day for 3 days. phenazopyri 2021- No 200mg Q.[id number] Take 1 Methodi dine 02-[id number] (PYRIDIUM) 00:00: 04:59 3D (200 mg Hos radha 200 MG 00 :00 total) by l tablet mouth 3 (three) times a day for 3 days. phenazopyri 2021- No 200mg Q.[id number] Take 1 Methodi dine 02-[id number] (PYRIDIUM) 00:00: 04:59 3D (200 mg Hos radha 200 MG 00 :00 total) by l tablet mouth 3 (three) times a day for 3 days. phenazopyri 2021- No 200mg Q.[id number] Take 1 Methodi dine 02-[id number] (PYRIDIUM) 00:00: 04:59 3D (200 [...] NOW, 1 [place] tablet 00 :00 dose, [facility] Medical 1,000 mg 12/31/20 at Branch 0300, RODRICK ibuprofen Yes [id number] 800mg Take 1 U nivers 800 mg 12-31 tablet by ity of tablet 00:00: mouth [place] 00 every 8 Medical (eight) Branch hours as needed for Pain (scale 4-6). cyclobenzap Yes [id number] 10mg Take 1 Univers rine 10 mg 12-31 tablet by ity of tablet 00:00: mouth 3 [place] 00 (three) Medical times Branch daily as needed for Muscle Spasms. ibuprofen 2021- No [id number] 800mg Take 1 Univers 800 mg 12-31 tablet by ity of tablet 00:00: 00:00 mouth [place] 00 :00 every 8 Medical (eight) Branch hours as needed for Pain (scale 4-6). cyclobenzap 2021- No [id number] 10mg Take 1 Univers rine 10 mg [...] IV ity of (REGLAN) 20:15: 19:18 Push, [place] injection 00 :00 ONCE, 1 Medical 10 [...] IV ity of (BENADRYL) 20:15: 20:15 [place], [place] injection 00 :00 ONCE, 1 Medical 25 mg dose, Wed Branch 11/20/20 at 1515, STAT butalbital- Yes 1{tbl} 1 tablet, Univers acetaminoph 11-20 Oral, ity of en-caff 18:12: Q4HPRN, [place] (ESGIC) 27 Starting Medical 50-325-40 Wed Branch mg tablet 1 11/20/20 at tablet 1312, Until Discontinu ed, Routine, zofran ketorolac 2020-0 Yes [id number] 10mg Take 1 Un carolann 10 mg 5-26 tablet by ity of tablet 00:00: mouth [place] 00 every 6 Medical (six) Branch hours as needed for Pain (scale 4-6). cyclobenzap 2020-0 Yes [id number] 10mg Take 1 Univers rine 10 mg 5-26 tablet by ity of tablet 00:00: mouth 3 [place] 00 (three) Medical times Branch daily. ketorolac 2020-0 Yes [id number] 10mg Take 1 Un carolann 10 mg 5-26 tablet by ity of tablet 00:00: mouth [place] 00 every 6 Medical (six) Branch hours as needed for Pain (scale 4-6). cyclobenzap 2020-0 Yes [id number] 10mg Take 1 Univers rine 10 mg 5-26 tablet by ity of tablet 00:00: mouth 3 [place] 00 (three) Medical times Branch daily. ketorolac 2021- No [id number] 10mg Take 1 U nivers 10 mg -02-26 tablet by ity of tablet 00:00: 00:00 mouth [place] 00 :00 every 6 Medical (six) Branch hours as needed for Pain (scale 4-6). cyclobenzap 2021- No [id number] 10mg Take 1 Univers rine 10 mg [...] 09/26/20 Branch at 2245, RODRICK ondansetron Yes [id number] 4mg Take 1 Univers (ZOFRAN 4-01 tablet by ity of ODT) 4 mg 00:00: mouth [place] disintegrat 00 every 8 Medic al ing tablet (eight) Branch hours as needed for Nausea and Vomiting (N/V). ondansetron Yes [id number] 4mg Take 1 Univers (ZOFRAN 4-01 tablet by ity of ODT) 4 mg 00:00: mouth [place] disintegrat 00 every 8 Medic al ing tablet (eight) Branch hours as needed for Nausea and Vomiting (N/V). ondansetron Yes [id number] 4mg Take 1 Univers (ZOFRAN 4-01 tablet by ity of ODT) 4 mg 00:00: mouth [place] disintegrat 00 every 8 Medic al ing tablet (eight) Branch hours as needed for Nausea and Vomiting (N/V). ondansetron 2021- No [id number] 4mg Take 1 Univers (ZOFRAN 4-01 09-01 tablet by ity of ODT) 4 mg 00:00: 00:00 mouth [place] disintegrat 00 :00 every 8 Medic al ing tablet (eight) Branch hours as needed for Nausea and Vomiting (N/V). proMETHazin Yes [id number] 25mg Take 1 Univers e 25 mg 2-09 tablet by ity of tablet 00:00: mouth [place] 00 every 6 Medical (six) Branch hours as needed for Nausea and Vomiting (N/V). proMETHazin Yes [id number] 25mg Take 1 Univers e 25 mg 2-09 tablet by ity of tablet 00:00: mouth [place] 00 every 6 Medical (six) Branch hours as needed for Nausea and Vomiting (N/V). proMETHazin Yes [id number] 25mg Take 1 Univers e 25 mg 2-09 tablet by ity of tablet 00:00: mouth [place] 00 every 6 Medical (six) Branch hours as needed for Nausea and Vomiting (N/V). proMETHazin 2021- No [id number] 25mg Take 1 Univers e 25 mg 2-09 09-01 tablet by ity of tablet 00:00: 00:00 mouth [place] 00 :00 every 6 Medical (six) Branch hours as needed for Nausea and Vomiting (N/V). ketorolac No 15mg 15 mg, Unive rs (TORADOL) 07-17-20 Slow IV ity of injection 13:30: 12:29 Push, [place] 15 mg 00 :00 ONCE, 1 Medical dose, Wed Branch 07/17/20 at 0730, RODRICK
[facility] member approving Restricted medication : WILD COWART E NaCl 0.9% 2020- No 1000mL at 999 Uni vers (NS) IV 07-17-20 mL/hr, ity of infusion 13:30: 14:58 Intravenou [place] 1,000 mL 00 :00 s, ONCE, 1 Medic al dose, Wed Branch 07/17/20 at 0730, RODRICK metoclopram 2020-0 2020- No 10mg 10 mg, Uni vers dio HCl -20 07-17 Slow IV ity of (REGLAN) 13:30: [...] Immunizations Ordered Filled Immunization Date Status Comments [facility] Immunization Name Name Td 2011-06-28 Completed University 00:00:00 [facility] Td 2011-06-28 Completed University 00:00:00 [facility] Td 2011-06-28 Completed University 00:00:00 [facility] Td 2011-06-28 Completed University of 00:00:00 [place] [facility] Td 2011-06-28 Completed University of 00:00:00 [place] [facility] TD, NOS 2011-06-28 Completed University of 00:00:00 [place] [facility] TD, NOS 2011-06-28 Completed University of 00:00:00 [place] [facility] Td 2011-06-28 Completed University of 00:00:00 [facility] Branch Vital Signs Vital Name Observation Time Observation Value Comments Source Systolic blood 2022-12-15 04:30:00 94 mm[Hg] Univer sity of pressure [place] [facility] Diastolic blood 2022-12-15 04:30:00 58 mm[Hg] Unive rsity of pressure [place] [facility] Heart rate 2022-12-15 04:30:00 88 /min Universi ty of [place] [facility] Respiratory rate 2022-12-15 04:30:00 13 /min Univ ersity of [place] [facility] Oxygen saturation in 2022-12-15 04:30:00 96 /min University of Arterial blood by [place] [employer] [facility]ott Pulse oximetry Branch Body temperature 2022-12-15 04:00:00 37 [place] Univ ersity of [place] [facility] Body height 2022-12-14 20:54:00 152.4 cm Universi ty of [place] [facility] Body weight 2022-12-14 20:54:00 79.379 kg Universi ty of [place] [facility] BMI 2022-12-14 20:54:00 34.18 kg/m2 Universi ty of [place] [facility] Systolic blood 2022-10-19 14:30:00 129 mm[Hg] Univer sity of pressure [place] [facility] Diastolic blood 2022-10-19 14:30:00 93 mm[Hg] Unive rsity of pressure [place] [facility] Heart rate 2022-10-19 14:30:00 73 /min Universi ty of [place] [facility] Respiratory rate 2022-10-19 14:30:00 14 /min Univ ersity of [place] [facility] Oxygen saturation in 2022-10-19 14:30:00 100 /min University of Arterial blood by [place] [employer] Pulse oximetry Branch Body temperature 2022-10-19 13:22:00 37 [place] Univ ersity of [place] [facility] Body height 2022-10-19 13:22:00 152.4 cm Universi ty [facility] [place] [facility] Body weight 2022-10-19 13:22:00 79.833 kg Universi ty of [place] [facility] BMI 2022-10-19 13:22:00 34.37 kg/m2 Universi ty of [place] [facility] Systolic blood 2022-05-29 04:19:00 123 mm[Hg] Univer sity of pressure [place] [facility] Diastolic blood 2022-05-29 04:19:00 87 mm[Hg] Unive rsity of pressure [place] [facility] Heart rate 2022-05-29 04:19:00 93 /min Universi ty of [place] [facility] Respiratory rate 2022-05-29 04:19:00 18 /min Univ ersity of [place] [facility] Oxygen saturation in 2022-05-29 04:19:00 97 /min University of Arterial blood by [employer] Pulse oximetry Branch Body temperature 2022-05-28 23:42:00 37.11 [place] Univ ersity of [place] [facility] Body height 2022-05-28 23:42:00 152.4 cm [facility] Systolic blood 2022-02-27 05:31:00 130 mm[Hg] [facility] Diastolic blood 2022-02-27 05:31:00 87 mm[Hg] [facility] Heart rate 2022-02-27 05:31:00 98 /min [facility] Respiratory rate 2022-02-27 05:31:00 18 /min [facility] Oxygen saturation in 2022-02-27 05:31:00 99 /min [facility] Arterial blood by [employer] Pulse oximetry Branch Body height 2022-02-27 03:38:00 152.4 cm [facility] Body weight 2022-02-27 03:38:00 82.101 kg [facility] BMI 2022-02-27 03:38:00 35.35 kg/m2 [facility] Body temperature 2022-02-27 03:36:00 36.28 [place] [facility] Systolic blood 2020-12-31 06:49:00 125 mm[Hg] [facility] Diastolic blood 2020-12-31 06:49:00 93 mm[Hg] [facility] Heart rate 2020-12-31 06:49:00 104 /min [facility] Body temperature 2020-12-31 06:49:00 36.83 [place] [facility] Respiratory rate 2020-12-31 06:49:00 15 /min [facility] Body height 2020-12-31 06:49:00 152.4 cm [facility] Body weight 2020-12-31 06:49:00 92.5 kg [facility] BMI 2020-12-31 06:49:00 39.83 kg/m2 [facility] Oxygen saturation in 2020-12-31 06:49:00 99 /min [facility] blood by [place] [employer] P[facility] Systolic blood 2020-12-31 06:49:00 125 mm[Hg] [facility] Diastolic blood 2020-12-31 06:49:00 93 mm[Hg] [facility] Heart rate 2020-12-31 06:49:00 104 /min [facility] Body temperature 2020-12-31 06:49:00 36.83 [place] [facility] Respiratory rate 2020-12-31 06:49:00 15 /min [facility] Body height 2020-12-31 06:49:00 152.4 cm [facility] Body weight 2020-12-31 06:49:00 92.5 kg [facility] BMI 2020-12-31 06:49:00 39.83 kg/m2 [facility] Oxygen saturation in 2020-12-31 06:49:00 99 /min [facility] blood by [place] [employer] [facility] Systolic blood 2020-11-20 19:58:00 146 mm[Hg] [facility] Diastolic blood 2020-11-20 19:58:00 95 mm[Hg] [facility] Heart rate 2020-11-20 19:58:00 98 /min [facility] Body temperature 2020-11-20 19:58:00 37.17 [place] [facility] Respiratory rate 2020-11-20 19:58:00 17 /min [facility] Oxygen saturation in 2020-11-20 19:58:00 100 /min [facility] Arterial blood by [facility] Pulse oxim[facility] Branch Body weight 2020-11-20 16:43:00 92.534 kg [facility] BMI 2020-11-20 16:43:00 39.84 kg/m2 [facility] Systolic blood 2020-11-20 19:58:00 146 mm[Hg] [facility] Diastolic blood 2020-11-20 19:58:00 95 mm[Hg] [facility] Heart rate 2020-11-20 19:58:00 98 /min [facility] Body temperature 2020-11-20 19:58:00 37.17 [place] [facility] Respiratory rate 2020-11-20 19:58:00 17 /min [facility] Oxygen saturation in 2020-11-20 19:58:00 100 /min [facility] Arterial blood by [facility] P[facility] Branch Body weight 2020-11-20 16:43:00 92.534 kg [facility] BMI 2020-11-20 16:43:00 39.84 kg/m2 [facility] Body height 2020-09-26 23:49:00 152.4 cm [facility] Body weight 2020-09-26 23:49:00 90.719 kg [facility] BMI 2020-09-26 23:49:00 39.06 kg/m2 [facility] Systolic blood 2020-09-26 23:45:00 103 mm[Hg] [facility] Diastolic blood 2020-09-26 23:45:00 62 mm[Hg] [facility] Heart rate 2020-09-26 23:45:00 107 /min [facility] Body temperature 2020-09-26 23:45:00 36.61 [place] [facility] Respiratory rate 2020-09-26 23:45:00 18 /min [facility] Oxygen saturation in 2020-09-26 23:45:00 97 /min [facility] blood by [place] [employer] [facility] Body height 2020-09-26 23:49:00 152.4 cm [facility] Body weight 2020-09-26 23:49:00 90.719 kg [facility] BMI 2020-09-26 23:49:00 39.06 kg/m2 [facility] Systolic blood 2020-09-26 23:45:00 103 mm[Hg] [facility] Diastolic blood 2020-09-26 23:45:00 62 mm[Hg] [facility] Heart rate 2020-09-26 23:45:00 107 /min [facility] [place] Body temperature 2020-09-26 23:45:00 36.61 [place] [facility] Respiratory rate 2020-09-26 23:45:00 18 /min [facility] Oxygen saturation in 2020-09-26 23:45:00 97 /min [facility] Arterial blood by [facility] Pulse oxim[facility] Branch Systolic blood 2020-07-17 14:00:00 112 mm[Hg] [facility] Diastolic blood 2020-07-17 14:00:00 65 mm[Hg] [facility] Heart rate 2020-07-17 14:00:00 86 /min [facility] Respiratory rate 2020-07-17 14:00:00 20 /min [facility] Oxygen saturation in 2020-07-17 14:00:00 100 /min [facility] Arter[facility] blood by [facility] P[facility] Branch Body temperature 2020-07-17 11:50:00 37.22 [place] [facility] Body weight 2020-07-17 11:50:00 86.183 kg [facility] BMI 2020-07-17 11:50:00 37.11 kg/m2 [facility] Systolic blood 2020-07-17 14:00:00 112 mm[Hg] [facility] Diastolic blood 2020-07-17 14:00:00 65 mm[Hg] [facility] Heart rate 2020-07-17 14:00:00 86 /min [facility] 2020-07-17 14:00:00 20 /[facility] 2020-07-17 14:00:00 100 /min [facility] Arterial blood by [facility] Pulse oxim[facility] Branch Body temperature 2020-07-17 11:50:00 37.22 [place] [facility] Body weight 2020-07-17 11:50:00 86.183 kg [facility] BMI 2020-07-17 11:50:00 37.11 kg/m2 [facility] Systolic blood 2022-07-22 19:04:00 122 mm[Hg] Method [facility] pressure Diastolic blood 2022-07-22 19:04:00 72 mm[Hg] [facility] pressure Heart rate 2022-07-22 19:04:00 72 /min [facility] Respiratory rate 2022-07-22 19:04:00 18 /min [facility] Oxygen saturation in 2022-07-22 19:04:00 100 /min [facility] Arterial blood by Pulse oximetry Body temperature 2022-07-22 17:04:00 36.72 [place] [facility] Body height 2022-07-22 17:04:00 157.5 cm [facility] Body weight 2022-07-22 17:04:00 85.276 kg [facility] BMI 2022-07-22 17:04:00 34.39 kg/m2 [facility] Systolic blood 2022-03-26 13:44:00 139 mm[Hg] Method [facility] pressure Diastolic blood 2022-03-26 13:44:00 83 mm[Hg] [facility] pressure Heart rate 2022-03-26 13:44:00 101 /min [facility] Respiratory rate 2022-03-26 13:44:00 18 /min [facility] Oxygen saturation in 2022-03-26 13:44:00 100 /min [facility] Arterial blood by Pulse oximetry Body temperature 2022-03-26 12:32:00 36.72 [place] [facility] Body height 2022-03-26 12:32:00 157.5 cm [facility] Body weight 2022-03-26 12:32:00 85.276 kg [facility] BMI 2022-03-26 12:32:00 34.39 kg/m2 [facility] Procedures Procedure Date / Time Performing Clinician Source Performed D-DIMER 2022-12-15 02:19:00 [facility] ABDOMEN PELVIS WO 2022-12-14 23:46:00 Tricia Herbert [facility] CONTRAST [facility] RAPID INFLUENZA A/B 2022-12-14 22:46:00 Tricia Herbert [facility] COVID-19 (ID NOW RAPID 2022-12-14 22:46:00 Tricia Herbert [facility] TESTING) [facility] POCT TEST 2022-12-14 21:51:00 Tricia Herbert [facility] LIPASE 2022-12-14 21:44:00 Tricia Herbert [facility] MAGNESIUM 2022-12-14 21:44:00 Tricia Herbert [facility] COMP. METABOLIC PANEL 2022-12-14 21:44:00 Tricia Herbert [facility] ([id number]) [facility] CBC WITH DIFF 2022-12-14 21:44:00 Tricia Herbert [facility] URINALYSIS 2022-12-14 21:44:00 Tricia Herbert [facility] CONSENT/REFUSAL FOR 2022-12-14 20:43:36 Doctor Unassigned, No Un [facility] DIAGNOSIS AND TREATMENT Name [facility] POCT TEST 2022-10-19 15:07:00 Vasu Hutson [facility] LIPASE 2022-10-19 13:44:00 Vasu [facility] COMP. METABOLIC PANEL 2022-10-19 13:44:00 Vasu Hutson [facility] ([id number]) [facility] CBC WITH DIFF 2022-10-19 13:44:00 [facility]u [facility] CONSENT/REFUSAL FOR 2022-10-19 13:14:52 [facility]igned, [facility] Name [facility] URINE CULTURE 2022-07-22 [facility]22-07-22 [facility]FR 2022-07-22 17:33:[address] [facility] CT RENAL STONE PROTOCOL 2022-07-22 17:13:55 [facility] WITH PLATELET AND 2022-07-22 16:33:00 [facility] DIFFERENTIAL COMPREHENSIVE METABOLIC 2022-07-22 16:33:00 [facility] PANEL ESTIMATED GFR 2022-07-22 16:33:00 [facility] AND 2022-07-22 16:22:00 [facility] MICROSCOPY, WITH REFLEX TO CULTURE US PELVIS COMPLETE WITH 2022-05-29 02:07:00 Lorena Simpson Un [facility] TRANSVAGINAL [facility] CT ABDOMEN PELVIS W 2022-05-29 00:28:13 Lorena Simpson [facility] CONTRAST [facility] COMP. METABOLIC PANEL 2022-05-29 00:07:00 Lorena Simpson [facility] ([id number]) [facility] CBC WITH DIFF 2022-05-29 00:07:00 Lorena Simpson [facility] URINALYSIS 2022-05-28 23:56:00 Lorena Simpson [facility] POCT TEST 2022-05-28 23:53:00 Lorena Simpson [facility] CONSENT/REFUSAL FOR 2022-05-28 23:40:29 Doctor Unassigned, No [facility] Name [facility] URINALYSIS 2022-03-26 13:06:00 [facility] URINE 2022-03-26 13:06:00 [facility] URINALYSIS 2022-03-26 13:06:00 [facility] HCG QUALITATIVE, URINE 2022-03-26 13:06:00 [facility] SCREEN CBC WITH PLATELET AND 2022-03-26 12:46:00 [facility] DIFFERENTIAL COMPREHENSIVE METABOLIC 2022-03-26 12:46:00 [facility] PANEL ESTIMATED GFR 2022-03-26 12:46:00 [facility] CBC WITH PLATELET AND 2022-03-26 12:46:00 [facility] DIFFERENTIAL POCT TEST 2022-02-27 04:56:00 Afsaneh Car [facility] LIPASE 2022-02-27 04:04:00 Afsaneh Car [facility] TROPONIN I 2022-02-27 04:04:00 Afsaneh Car [facility] THYROID STIMULATING 2022-02-27 04:04:00 Afsaneh Car [facility] HORMONE [facility] COMP. METABOLIC PANEL 2022-02-27 04:04:00 Afsaneh Car [facility] ([id number]) [facility] CBC WITH DIFF 2022-02-27 04:04:00 Afsaneh Car [facility] URINALYSIS 2022-02-27 03:56:00 Afsaneh Car [facility] URINE DRUG (IMMUNOASSAY) 2022-02-27 03:56:00 Afsaneh Car [facility] DRUG [facility] SCREEN W/O REFLEX NOTICE OF PRIVACY 2022-02-27 03:05:57 Doctor Unassigned, No [facility] PRACTICES Name [facility] CONSENT/REFUSAL FOR 2022-02-27 03:04:00 Doctor Unassigned, No [facility] Name [facility] COMPREHENSIVE METABOLIC 2022-02-18 05:17:00 [facility] PANEL ESTIMATED GFR 2022-02-18 05:17:00 Carlos Hernandez spital COMPREHENSIVE METABOLIC 2022-02-18 04:38:00 [facility] PANEL ESTIMATED GFR 2022-02-18 04:38:[address] ABDOMEN PELVIS WO 2022-02-18 04:17:35 [facility] URINE CULTURE 2022-02-18 04:00:00 Carlos Hernandez spital CBC WITH PLATELET AND 2022-02-18 04:00:00 Carlos Hernandez [facility] DIFFERENTIAL COMPREHENSIVE METABOLIC 2022-02-18 04:00:00 [facility] PANEL ESTIMATED GFR 2022-02-18 04:00:00 Carlos Hernandez [facility]ital HCG QUALITATIVE, URINE 2022-02-18 02:50:00 Carlos Hernandez [facility] SCREEN URINALYSIS 2022-02-18 02:50:00 Cralos Hernandez spital RAPID STREP SCREEN FOR 2020-12-31 07:13:00 Akiko Dunaway [facility] GROUP A [facility] NOTICE OF PRIVACY 2020-12-31 06:34:54 Doctor Unassigned, No [facility] PRACTICES Name [facility] CONSENT/REFUSAL FOR 2020-12-31 06:34:35 Doctor Unassigned, No [facility] DIAGNOSIS AND TREATMENT Name [facility] CT HEAD WO CONTRAST 2020-11-20 18:18:22 John Rivera [facility] POCT TEST 2020-11-20 17:50:00 John Rivera [facility] BASIC METABOLIC PANEL 2020-11-20 17:24:00 John Rivera [facility] (NA, K, CL, CO2, Medical [facility] GLUCOSE, BUN, CREATININE, CA) CBC WITH DIFF 2020-11-20 17:24:00 [facility] CONSENT/REFUSAL FOR 2020-11-20 16:36:59 Doctor Unassigned, No [facility] [place] [facility] POCT TEST 2020-09-27 02:56:00 Tricia Herbert [facility] ASSIGNMENT OF BENEFITS 2020-09-27 01:35:31 Doctor Unassigned, No [facility] CONSENT/REFUSAL FOR 2020-09-26 23:26:24 Doctor Unassigned, No Un [facility] DIAGNOSIS AND TREATMENT [facility] URINALYSIS 2020-07-17 14:08:00 [facility] POCT TEST 2020-07-17 14:08:00 [facility] CBC WITH DIFF 2020-07-17 12:25:00 [facility] NOTICE OF PRIVACY 2020-07-17 11:48:39 Doctor Unassigned, No [facility] CONSENT/REFUSAL FOR 2020-07-17 11:44:41 Doctor Unassigned, No Un [facility] DIAGNOSIS AND [facility] Plan of Care Planned Activity Planned Date Details Comments Source Future Scheduled 2023-01-04 COVID-[address] [facility] Test 20:06:27 (#1) [code = COVID-19 VACCINE (#1)] Future Scheduled 2023-01-04 [facility] 20:06:27 screening (procedure) [code = 017970704] Future Scheduled 2023-01-04 [facility] 20:06:27 malignant neoplasm of cervix (procedure) [code = 160796673] Future Scheduled 2023-01-04 [facility]ACCINE [facility] 20:06:27 [code = INFLUENZA VACCINE] Future Scheduled 2023-01-04 COVID-[address] [facility] [facility] Test 20:06:27 (#1) [code = COVID-19 VACCINE (#1)] Future Scheduled 2023-01-04 [facility] 20:06:27 screening (procedure) [code = 682241835] Future Scheduled 2023-01-04 [facility] 20:06:27 malignant neoplasm of cervix (procedure) [code = 279808569] Future Scheduled 2023-01-04 [facility]INE [facility] 20:06:27 [code = INFLUENZA VACCINE] Future Scheduled 2022-10-03 COVID-[address] [facility] Test 02:09:31 (#1) [code = COVID-19 VACCINE (#1)] Future Scheduled 2022-10-03 [facility] 02:09:31 screening (procedure) [code = 518222118] Future Scheduled 2022-10-03 [facility] 02:09:31 malignant neoplasm of cervix (procedure) [code = 534137221] Future Scheduled 2022-10-03 [facility]INE [facility] 02:09:31 [code = INFLUENZA VACCINE] Future Scheduled 2022-10-03 [facility] 02:09:31 (#1) [code = COVID-19 VACCINE (#1)] Future Scheduled 2022-10-03 [facility] 02:09:31 screening (procedure) [code = 622237851] Future Scheduled 2022-10-03 [facility] 02:09:31 malignant neoplasm of cervix (procedure) [code = 355393314] Future Scheduled 2022-10-03 [facility]ACCINE [facility] 02:09:31 [code = INFLUENZA VACCINE] Future Scheduled 2022-10-03 [facility] 02:09:31 (#1) [code = COVID-19 VACCINE (#1)] Future Scheduled 2022-10-03 [facility] 02:09:31 screening (procedure) [code = 023958601] Future Scheduled 2022-10-03 [facility] 02:09:31 malignant neoplasm of cervix (procedure) [code = 981519718] Future Scheduled 2022-10-03 [facility]ACCINE [facility] 02:09:31 [code = INFLUENZA VACCINE] Future Scheduled 2022-09-07 COVID-[address] [facility] Test 16:46:36 (#1) [code = COVID-19 VACCINE (#1)] Future Scheduled 2022-09-07 [facility] 16:46:36 screening (procedure) [code = 758676460] Future Scheduled 2022-09-07 [facility] 16:46:36 malignant neoplasm of cervix (procedure) [code = 562436554] Future Scheduled 2022-09-07 [facility]INE [facility] 16:46:36 [code = INFLUENZA VACCINE] Future Scheduled 2022-09-07 COVID-[address] [facility] Test 16:46:36 (#1) [code = COVID-19 VACCINE (#1)] Future Scheduled 2022-09-07 [facility] 16:46:36 screening (procedure) [code = 935961707] Future Scheduled 2022-09-07 [facility] 16:46:36 malignant neoplasm of cervix (procedure) [code = 962442366] Future Scheduled 2022-09-07 [facility]ACCINE [facility] 16:46:36 [code = INFLUENZA VACCINE] Future Scheduled 2022-09-07 [facility] 16:46:36 (#1) [code = COVID-19 VACCINE (#1)] Future Scheduled 2022-09-07 [facility] 16:46:36 screening (procedure) [code = 310606622] Future Scheduled 2022-09-07 [facility] 16:46:36 malignant neoplasm of cervix (procedure) [code = 486510859] Future Scheduled 2022-09-07 [facility] 16:46:36 [code = INFLUENZA VACCINE] Future Scheduled 2022-07-30 [facility] 22:48:12 (#1) [code = COVID-19 VACCINE (#1)] Future Scheduled 2022-07-30 [facility] 22:48:12 screening (procedure) [code = 336159675] Future Scheduled 2022-07-30 [facility] 22:48:12 malignant neoplasm of cervix (procedure) [code = 784595102] Future Scheduled 2022-07-30 [facility]ZA [facility]ACCINE [facility] 22:48:12 [code = INFLUENZA VACCINE] Future Scheduled 2022-07-23 COVID-[address] [facility] Test 22:23:51 (#1) [code = COVID-19 VACCINE (#1)] Future Scheduled 2022-07-23 [facility] 22:23:51 screening (procedure) [code = 638169135] Future Scheduled 2022-07-23 [facility] 22:23:51 malignant neoplasm of cervix (procedure) [code = 988805768] Future Scheduled 2022-07-23 [facility]ZA [facility]ACCINE [facility] 22:23:51 [code = INFLUENZA VACCINE] Future Scheduled 2022-07-23 COVID-[address] [facility] Test 14:05:40 (#1) [code = COVID-19 VACCINE (#1)] Future Scheduled 2022-07-23 [facility] 14:05:40 screening (procedure) [code = 331023219] Future Scheduled 2022-07-23 [facility] 14:05:40 malignant neoplasm of cervix (procedure) [code = 682728365] Future Scheduled 2022-07-23 [facility]ZA [facility]ACCINE [facility] 14:05:40 [code = INFLUENZA VACCINE] Future Scheduled 2022-07-16 COVID-[address] [facility] Test 00:01:34 (#1) [code = COVID-19 VACCINE (#1)] Future Scheduled 2022-07-16 [facility] 00:01:34 screening (procedure) [code = 521105325] Future Scheduled 2022-07-16 [facility] 00:01:34 malignant neoplasm of cervix (procedure) [code = 302459627] Future Scheduled 2022-07-16 [facility]ACCINE [facility] 00:01:34 [code = INFLUENZA VACCINE] Future Scheduled 2022-06-20 COVID-[address] [facility] Test 00:27:46 (#1) [code = COVID-19 VACCINE (#1)] Future Scheduled 2022-06-20 [facility] 00:27:46 screening (procedure) [code = 226236396] Future Scheduled 2022-06-20 [facility] Test 00:27:46 malignant neoplasm of cervix (procedure) [code = 958318083] Future Scheduled 2022-06-20 [facility]ACCINE [facility] 00:27:46 [code = INFLUENZA VACCINE] Future Scheduled 2022-06-12 COVID-[address] [facility] Test 16:29:41 (#1) [code = COVID-19 VACCINE (#1)] Future Scheduled 2022-06-12 [facility] 16:29:41 screening (procedure) [code = 600261629] Future Scheduled 2022-06-12 INFLUENZA VACCINE Method [facility] Test 16:29:41 [code = INFLUENZA VACCINE] Future Scheduled 2022-04-29 [facility] 09:57:18 VACCINES (1 of 3 - 3-dose series) [code = HEPATITIS B VACCINES (1 of 3 - 3-dose series)] Future Scheduled 2022-04-29 [facility] Test 09:57:18 (#1) [code = COVID-19 VACCINE (#1)] Future Scheduled 2022-04-29 [facility] 09:57:18 screening (procedure) [code = 431321986] Future Scheduled 2022-04-29 [facility] Test 09:57:18 malignant neoplasm of cervix (procedure) [code = 590678602] Future Scheduled 2022-04-29 INFLUENZA VACCINE [facility] Test 09:57:18 [code = INFLUENZA VACCINE] Future Scheduled 2022-03-26 [facility] 18:56:00 VACCINES (1 of 3 - 3-dose series) [code = HEPATITIS B VACCINES (1 of 3 - 3-dose series)] Future Scheduled 2022-03-26 COVID-[facility]ACCINE [facility] Test 18:56:00 (#1) [code = COVID-19 VACCINE (#1)] Future Scheduled 2022-03-26 [facility] 18:56:00 screening (procedure) [code = 384807531] Future Scheduled 2022-03-26 [facility] Test 18:56:00 malignant neoplasm of cervix (procedure) [code = 750219391] Future Scheduled 2022-03-26 INFLUENZA VACCINE [facility] Test 18:56:00 [code = INFLUENZA VACCINE] Future Scheduled 2022-03-26 [facility] 18:56:00 VACCINES (1 of 3 - 3-dose series) [code = HEPATITIS B VACCINES (1 of 3 - 3-dose series)] Future Scheduled 2022-03-26 COVID-[address] [facility] Test 18:56:00 (#1) [code = COVID-19 VACCINE (#1)] Future Scheduled 2022-03-26 [facility] 18:56:00 screening (procedure) [code = 601817392] Future Scheduled 2022-03-26 [facility] 18:56:00 malignant neoplasm of cervix (procedure) [code = 823200122] Future Scheduled 2022-03-26 [facility]INE [facility] 18:56:00 [code = INFLUENZA VACCINE] Future Scheduled 2022-03-26 [facility] 18:56:00 VACCINES (1 of 3 - 3-dose series) [code = HEPATITIS B VACCINES (1 of 3 - 3-dose series)] Future Scheduled 2022-03-26 [facility] 18:56:00 (#1) [code = COVID-19 VACCINE (#1)] Future Scheduled 2022-03-26 Hepatitis C [facility] 18[facility]:00 screening (procedure) [code = 639913677] Future Scheduled 2022-03-26 [facility]ening for [facility] 18:56:00 malignant neoplasm of cervix (procedure) [code = 169928956] Future Scheduled 2022-03-26 [facility]UENZA VACCINE [facility] 18:56:00 [code = INFLUENZA VACCINE] Future Scheduled 2022-03-26 HEPATITIS B [facility] 08:33:14 VACCINES (1 of 3 - 3-dose series) [code = HEPATITIS B VACCINES (1 of 3 - 3-dose series)] Future Scheduled 2022-03-26 COVID-19 [facility]ACCINE [facility] 08:33:14 (#1) [code = COVID-19 VACCINE (#1)] Future Scheduled 2022-03-26 Hepatitis C [facility] 08:33:14 screening (procedure) [code = 769789861] Future Scheduled 2022-03-26 [facility] for [facility] 08:33:14 malignant neoplasm of cervix (procedure) [code = 930276189] Future Scheduled 2022-03-26 [facility] 08:33:14 [code = INFLUENZA VACCINE] Future Scheduled COVID-19 [facility]ACCINE [facility] (1) [code = COVID-19 VACCINE (1)] Future Scheduled Hepatitis C [facility] screening (procedure) [code = 011541922] Future Scheduled Screening for [facility] malignant neoplasm of cervix (procedure) [code = 370867455] Future Scheduled [facility] [code = INFLUENZA VACCINE] Encounters Start End Encounter Admission Attending Care Care Encounter Source Date/Time Date/Time Type Type Clinicians Facility Department ID 2023-01-[address] [facility] [id number] [place] 10:32:22 [id number] [facility] 2021-04-28 Emergency [facility] [id number] Univers 06:08:31 ity of [facility] 2021-04-27 Emergency [facility] [id number] Univers 21:27:31 ity of [facility] 2021-04-27 Emergency [facility] [id number] Univers 10:13:04 ity of [facility] 2021-04-26 Emergency [facility] [id number] Univers 18:11:30 ity [facility] 2022-12-14 2022-12-[address] [facility] ERT [id number] Univers 15:55:00 23:49:00 ity of [facility] 2022-12-14 2022-12-[address] [facility] 1.2.840.114 10 [id number] Univers 15:55:00 23:49:00 Lluvia HUMPHREYS 350.1.13.10 i ty of [place] 4.2.7.2.686 [facility] [id number] [address] 2022-10-19 2022-10-[address] [facility] ERT [id number] Univers 08:24:00 11:10:00 FOLUSHO ity [facility] 2022-10-19 2022-10-19 [facility] 1.2.840.114 10 [id number] Univers 08:24:00 11:10:00 John HUMPHREYS 350.1.13.10 ity [facility] 4.2.7.2.686 [facility] [id number] [address] 2022-07-22 2022-07-22 Emergency Zaheer, 1.2.840.1 [id number] Methodi 10:01:00 13:05:00 Nash Conteh 08040.1.1 054 s t 3.430.2.7 Hospit a .3.952955 l .8 2022-07-22 2022-07-22 Emergency Zaheer, 1.2.840.1 [id number] Methodi 10:01:00 13:05:00 Nash Conteh 77870.1.1 054 s t 3.430.2.7 Hospit a .3.763390 l .8 2022-07-22 2022-07-22 Travel 1.2.840.1 1.2.600.930 [id number] [id number] Methodi 00:00:00 00:00:[address] 3.430.2.7 0.2.7.3.698 Ho spita .3.415514 084.8 l .8 2022-07-22 2022-07-22 Travel 1.2.840.1 1.2.193.782 8333 [id number] Methodi 00:00:00 00:00:[address] 3.430.2.7 0.2.7.3.698 Ho spita .3.915815 084.8 l .8 2022-05-28 2022-05-28 Emergency X TREVER AZEMILIA ERT [id number] Univers 17:47:00 22:35:00 MENDY khan [facility] 2022-05-28 2022-05-[address] [facility] 1.2.840.114 [id number] Univers 17:47:00 22:35:00 Mendy Liriano 350.1.13.10 bill [facility] 4.2.7.2.686 [facility] [id number] [address] 2022-04-22 2022-04-22 Emergency E AZNAUROVA-A [facility] [address] [facility] 08:53:00 14:18:00 IZA LEBLANC 2022-03-26 2022-03-26 Emergency Sammy 1.2.840.1 [id number] Methodi 07:24:00 08:46:[address] 3.430.2.7 Hospit a .3.829966 l .8 2022-03-26 2022-03-26 Emergency Sammy 1.2.840.1 [id number] Methodi 07:24:00 08:46:[address] 3.430.2.7 Hospit a .3.368536 l .8 2022-03-26 2022-03-26 Travel 1.2.840.1 1.2.590.427 0161 [id number] Methodi 00:00:00 00:00:[address] 3.430.2.7 0.2.7.3.698 Ho spita .3.461976 084.8 l .8 2022-03-26 2022-03-26 Travel 1.2.840.1 1.2.720.731 7198 [id number] Methodi 00:00:00 00:00:[address] 3.430.2.7 0.2.7.3.698 Ho spita .3.240960 084.8 l .8 2022-02-26 2022-02-27 Emergency X [facility] ERT [id number] [facility] 22:26:00 00:44:00 AFSANEH khan [facility] 2022-02-26 2022-02-27 Emergency [facility] 1.2.504.861 0279 [id number] [facility] 22:26:00 00:44:00 Afsaneh HUMPHREYS 350.1.13.10 bill [facility] 4.2.7.2.686 [facility] [id number] [place] [address] [address] 2022-02-17 2022-02-18 Emergency Nuszen, 1.2.840.1 [id number] Methodi 21:45:00 01:49:00 [address] [place]91.1.[address] 3.430.2.7 Hospit a .3.118103 l .8 2022-02-17 2022-02-18 Emergency Nuszen, 1.2.840.1 [id number] Methodi 21:45:00 01:49:[address] Carlos [place]7525.1.[address] 3.430.2.7 Hospit a .3.229653 l .8 2022-02-17 2022-02-17 Travel 1.2.840.1 1.2.434.148 2079 [id number] Methodi 00:00:00 00:00:[address] 3.430.2.7 0.2.7.3.698 Ho spita .3.876078 084.8 l .8 2022-02-17 2022-02-17 Travel 1.2.840.1 1.2.555.443 8515 388701 Methodi 00:00:00 00:00:[address] 3.430.2.7 0.2.7.3.698 Ho spita .3.392279 084.8 l .8 2020-12-31 2020-12-31 Emergency [place]unaway, [facility] 1.2.840.114 [id number] Univers 02:02:00 03:26:00 Akiko Humphreys 350.1.13.10 i ty of [place] 4.2.7.2.686 [facility] [phone] [facility] [address] 2020-12-31 2020-12-31 Emergency Dunaway, [facility] 1.2.840.114 [id number] 02:02:00 03:26:00 Akiko Humphreys 350.1.13.10 [place] 4.[address] [place] [address] [id number] 084 2020-11-20 2020-11-20 Emergency Rivera, [facility] 1.2.861.183 [id number] [facility] 11:47:00 15:01:00 John Humphreys 350.1.13.10 i ty of [place] 4.2.7.2.686 [facility] [id number] [address] 2020-11-20 2020-11-20 Emergency Rivera, [facility] 1.2.111.873 [id number] [id number] 11:47:00 15:01:00 John Olivo [place] 350.1.13.10 [place] 4.2.7.2.686 [place] [id number] [facility] 2020-09-26 2020-09-[address] [facility] 1.2.840.114 [id number] Univers 18:51:00 22:39:00 Lluvia [place] 350.1.13.10 i ty of [place] 4.2.7.2.686 [facility] [id number] [address] 2020-09-26 2020-09-[address] [facility] 1.2.840.114 83 [id number] 18:51:00 22:39:00 Lluvia [place] 350.1.13.10 [place] 4.2.7.2.686 [place] [id number] [facility] 2020-08-06 2020-08-[address] [facility] ERT [id number] Univers 10:13:00 12:49:00 JOHN itnirali [facility] 2020-08-01 2020-08-03 Inpatient [facility] [id number] [facility] 09:14:00 03:39:32 [facility] 2020-07-17 2020-07-[address] [facility] 1.2.840 .114 [id number] [facility] 05:53:00 08:59:00 Dani Kauffman 350.1.13.10 ity of [place] 4.2.7.[address] [place] [id number] 2020-07-17 2020-07-[address] [facility] 1.2.840 .114 [id number] 05:53:00 08:59:00 Dani Kauffman 350.1.13.10 [place] 4.2.7.2.686 [place] [id number] 084 Results Test Description Test Time Test Comments Results Result Comments Source D-DIMER 2022-12-15 03:05:08 Test Item Value Reference Range Interpretation Comme nts D-DIMER (test code = See_Comment [Autom ated message] The 7992036296) system which ge nerated this result tra nsmitted reference range : <0.41 ?g/mL (FEU). Th e reference range was not used to [...] diagnosis. Lab Interpretation Normal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 0IUnits/ml (test code = are considered positive RUBSC) inaccordance wi th the CLSI guidelines and based on the [employer] S tandard for Anti-Rubell a serum as anindicator of immune status and a br eakpoint to detect mostseropositiv e persons. AB [id number] 04:00:00 Test Item Value Reference Range Interpretation Comments AB TREPONEMA (test code = TREPAB) NONREACTIVE NONREACTIVE CBC W/AUTO [id number] 00:36:00 Test Item Value Reference Range Interpretation [...] Date/Time Note Provider Source 2020-08-01 09:27:00-00:00 [facility] EMERGENCY PROVIDER REPORT REPORT#:[id number] REPORT STATUS: Signed DATE:08/01/20 TIME: 926 PATIENT: FATMATA DEGROOT UNIT #: [id number] ROOM/BED: AGE: 24 SEX: F PCP PHYS: [...] Result Date Time Pulse Ox 99 08/01 09 B/P 164/84 08/01 09 B/P Mean 110 08/01 09 O2 Delivery Room air 08/01 924 Temp 36.6 08/01 924 Pulse 107 08/01 09 Resp 18 08/01 924 Last Documented: Result Date Time Pulse Ox 98 08/01 1511 B/P 118/71 08/01 1511 B/P Mean 86 08/01 1511 Temp 36.9 08/01 151 Pulse 94 08/01 1511 Resp 18 08/01 1511 O2 Delivery Room air 08/01 09 Review of Vital Signs Reviewed Interpretation Diagnostics Lab Results Interpretation Results Laboratory Tests: 08/01 933 Urines Urine Color (YELLOW) YELLOW Urine Appearance (CLEAR) CLEAR Urine pH (5 - 9) 6.0 Ur Specific [place] (1.001 - 1.035) 1.015 Urine Protein (NEG) [...] 4 MG STAT STA 08/01 1052 DC 0 08/01 SL 08/01 1053 1109 Patient Discharge Departure [...] 118/71 08/01 1511 B/P Mean 86 08/01 151 Temp 36.9 08/01 151 Pulse 94 08/01 151 Resp 18 08/01 151 O2 Delivery Room air 08/01 924 All vital signs available at the time [...] symptoms should prompt an immediate return to [facility] or the closest emergency department or a call to 911. Electronically Signed by Winter Mccollum MD on at 1907 RPT #:[id number] END OF REPORT 2018-09-12 08:09:00-00:00 [id number] [facility] [address] [place], [place] [address] PATIENT NAME: FATMATA DEGROOT ADMIT DATE: ACCOUNT NO: [id number] ROOM NO: [facility] AGE: 22 SEX: F ADMITTING PHYSICIAN: Wild [...] transverse gaby paramjit delivery. DISCHARGE MEDICATIONS: Include Avilla, Motrin, an d vitamin. DISPOSITION: The patient [...] family. She was scheduled for followup in [facility] office in 2 weeks for incision check. Dictated By: Wild Barrera MD WT: DS:F.MARISOL/ANTONINA/NTS PATIENT NAME: FATMATA DEGROOT [id number] Conf#: [id number]/DID#: [id number] Authenticated by Wild Barrera MD On 2018 03:49:44 PM Electronically Signed by Wild Barrera MD o n 09/12/18 at 1550 PATIENT NAME: FATMATA DEGROOT [id number] 2018-08-10 02:32:00-00:00 [id number] [facility] [address] [place] [address] PATIENT NAME: FATMATA DEGROOT ADMIT DATE: ACCOUNT NO: [id number] ROOM NO: F.4402 AGE: 22 SEX: F ADMITTING PHYSICIAN: Wild Barrera MD ATTENDING PHYSICIAN: Wild Barrera MD OPERATION DATE: 07/16/2018 PREOPERATIVE DIAGNOSES: 1. Term . 2. Previous section. 3. Failure to progress in labor. POSTOPERATIVE DIAGNOSES: 1. Term . 2. Previous section. 3. Failure to progress in labor. SURGEON: Wild Barrera MD EXECUTIVE ADMINISTRATIVE ASST: Ava Ware. PROCEDURES PERFORMED: Repeat low transverse [...] sterile fashion. Transverse PATIENT NAME: FATMATA DEGROOT [address] skin incision was made through the previous [...] By: Wild Barrera MD WT: OP:F.HIM/SHEGR/NTS Conf#: [id number]/DID#: [id number] Authenticated by Wild Barrera MD On 2018 08:01:31 AM Electronically Signed by Wild Barrera MD o n 08/23/18 at 0801 PATIENT NAME: FATMATA DEGROOT [id number] 2018-07-19 08:15:00-00:00 [facility] OB Postpart Progr Note REPORT#:[id number] REPORT STATUS: Signed DATE:07/19/18 TIME: 814 PATIENT: FATMATA DEGROOT UNIT #: [id number] ROOM/BED: [address] : 94 AGE: 22 SEX: F ATTEND: Yamila Barrera MD [facility] AUTHOR: Wild Barrera MD * ALL edits or amendments must be made on the [employer]/computer document * Subjective Subjective EGA weeks/days at [...] Pulse Resp B/P B/P Pulse O2 O2 Flow FiO2 Mean Ox Delivery Rate 07/19 0330 [...] routine care, discharge today at 0816 RPT #:[id number] END OF REPORT 2018-07-18 07:34:00-00:00 [facility] OB Postpart Progr Note REPORT#:[id number] REPORT STATUS: Signed DATE:07/18/18 TIME: 733 PATIENT: FATMATA DEGROOT UNIT #: [id number] ROOM/BED: [address] : 94 AGE: 22 SEX: F ATTEND: Yamila Barrera MD ADM AUTHOR: Wild Barrera MD * ALL edits or amendments must be made on the el [place] acquired by [employer]/computer document * Subjective Subjective EGA weeks/days at [...] toda y, discharge tomorrow at 0735 RPT #:[id number] END OF REPORT 2018-07-17 12:24:00-00:00 [facility] OB Postpart Progr Note REPORT#:[id number] REPORT STATUS: Signed DATE:07/17/18 TIME: 1224 PATIENT: FATMATA DEGROOT UNIT #: [id number] ROOM/BED: [address] : 94 AGE: 22 SEX: F ATTEND: Yamila Barrera MD ADM AUTHOR: Janee Castro MD * ALL edits or amendments must be made on the [employer] document * Subjective Subjective EGA weeks/days at [...] low FiO2 Mean Ox Delivery Rate 07/17 810 98.4 120 20 103/67 07/17 0416 98.2 [...] % (Auto) (14.3 - 34.3 %) 26.9 [place] % (Auto) (5.1 - 10.4 %) 6.0 Eos % (Auto) (0.1 - 3.0 %) 1.0 Baso % (Auto) (0.1 - 1.0 %) 0.2 Neut # (Auto) (K/mm3) 7.9 Lymph # (Auto) (K/mm3) 3.3 [place] # (Auto) (K/mm3) 0.7 Eos # (Auto) (K/mm3) 0.12 Baso # (Auto) (K/mm3) 0.0 Immature Plt Fraction (0.0 - 10.8 %) 0.0 Diagnosis, Assessment Plan Diagnosis, Assessment Plan Free text A P: POD#1 s/p RLTCS given NRFHT Male, desires circ, plan w/ dr. barrera A+ Hct 35>30.6 meeting early milestones. Electronically Signed by Janee Castro MD on 01/20 /19 at 1225 RPT #:[id number] END OF REPORT 2018-07-16 06:08:00-00:00 [facility] OB Delivery Note REPORT#:[id number] REPORT STATUS: Signed DATE:07/16/18 TIME: 0608 PATIENT: FATMATA DEGROOT UNIT #: [id number] ROOM/BED: [address] : 94 AGE: 22 SEX: F ATTEND: Yamila Barrera MD ADM AUTHOR: Wild Barrera MD * ALL edits or amendments must be made on the el [place] acquired by [employer]/computer document * OB Delivery Nursing Documentation Review Nursing data: The data set between the solid lines has been im ported from nursing documentation. Any exceptions have been noted be low under Provider comments. _ ROM date: 07/16/18 ROM time: 122 Membranes rupture method: SROM Amniotic fluid color: Clear Amniotic fluid amount: EGA (weeks/days): EGA at admit (weeks): EGA at delivery (weeks): Steroids prior to arrival: Antibiotic prophylaxis given: [place] evaluation at delivery: Delivery date infant A: Delivery time infant A: Birthweight (gm) infant A: Weight (lb) infant A: Weight (oz) A: Gender infant A: Male 1 minute A: 5 minutes A: 10 minutes A: Cord pH obtained infant A: Vacuum time A: Vacuum # pulls A: Vacuum # popoffs A: __ Provider comments on imported nursing data: [] Pre-delivery [place] evaluation at delivery: NRP certified nisa QUINTANILLA (weeks/days): 39 weeks Baby A Information Baby A information Delivery date: 07/16/18 Delivery time: 634 status: live born Wt of baby (lbs/oz): [...] to op delivery Mother's condition: mother stable 's condition: infant stable in nursery Op/Inv Proc Note - Brief )( Procedure(s) performed: repeat low transverse c/s )( Primary Surgeon: Agnes Barrera )( Curb Setter Helper(s): Yasmin Ware )( Pre-procedure diagnosis: prev C/S, early labor, failure to progress in la bor, unable to augment )( Post-procedure diagnosis: same )(Technique/Procedure: LTCS Anesthesia: epidural anesthesia )( Estimated blood loss (ml): 600 )( Finding(s): nl ut/ov/tubes. hemostatic. counts correct Condition: stable at 0703 RPT #:[id number] END OF REPORT 2018-07-16 05:32:00-00:00 [facility] Clinical Note REPORT#:[id number] REPORT STATUS: Signed DATE:07/16/18 TIME: 05 PATIENT: FATMATA DEGROOT UNIT #: [id number] ROOM/BED: [address] : 94 AGE: 22 SEX: F ATTEND: Yamila Barrera MD ADM AUTHOR: Janee Castro MD * ALL edits or amendments must be made on the [employer] document * Clinical Note Note: 22 yo [...] Castro MD on 07/16 at 0535 RPT #:[id number] END OF REPORT 2018-07-16 03:26:00-00:00 [facility] [place] [facility] OB Admission / H P REPORT#:[id number] REPORT STATUS: Signed DATE:07/16/18 TIME: 325 PATIENT: FATMATA DEGROOT UNIT #: [id number] [facility] AGE: 22 SEX: F ATTEND: Yamila Barrera MD ADM AUTHOR: Janee Castro MD * ALL edits or amendments must be made on the [employer] document * OB Admission H P Hx [...] TAB valACYclovir (VALTREX) 500 MG PO DAILY 8 07/16/18 Strength: 500 MG TAB 1631 0115 Current Hospital Medications: Autonomic Drugs Sig/Mackenzie Start time Last Medication Dose Route Stop Time Status Admin Ephedrine Sulfate 10 MG ASDIR PRN 07/16 144 AC (ePHEDrine SULFATE IV 09/15 143 50 MG/ML 1ML AMP) Ephedrine Sulfate 10 MG ASDIR PRN 07/16 29 AC (ePHEDrine SULFATE IV 09/14 28 50 MG/ML 1ML AMP) Central Nervous System Agents Sig/Mackenzie Start time Last Medication Dose Route Stop Time Status Admin Fentanyl Citrate 100 MCG ASDIR 07/16 144 CKD (SUBLIMAZE 2 ML) EPIDURAL 09/15 143 Fentanyl/Bupivacaine 150 ML ASDIR 07/16 144 AC HCl EPIDURAL 07/18 136 (fentaNYL/ BUPIVACAINE HCL NS 0.9% - 150ML) Fentanyl Citrate 100 MCG ASDIR 07/16 29 CKD (SUBLIMAZE 2 ML) EPIDURAL 09/14 28 Fentanyl/Bupivacaine 150 ML ASDIR 07/16 0030 AC [...] 0049 Lactated Ringer's 250 ML ASDIR 07/16 003 AC (LACTATED RINGERS) IV 09/14 0029 Dextrose/Lactated 1,000 ML ASDIR 07/16 001 AC 07/16 Ringer's IV 09/14 001 0116 (DEXTROSE 5% IN LACTATED RINGERS 1000 ML) Lactated Ringer's 2,000 ML ASDIR PRN 07/16 0015 DC 07/16 (LACTATED RINGERS) IV 0117 Lactated Ringer's 1,000 ML ONCE ONE 07/16 14 DC (LACTATED RINGERS) IV 07/16 0016 Gastrointestinal [...] ONE 07/16 144 DC (EPIDURAL TRAY) [facility] 07/16 0146 Pharmacy Profile Note 1 EA ONCE ONE 07/16 29 DC (EPIDURAL TRAY) [facility] 07/16 003 Pharmacy Profile Note 1 EA ONCE 07/16 14 AC (EPIDURAL TRAY) [facility] 07/19 0014 Allergies Coded Allergies: tramadol (Mild, [...] B/P 115/55 07/16 226 Temp 99.0 07/16 0217 Physical Exam HEENT: [...] % (Auto) (14.3 - 34.3 %) 27.0 [place] % (Auto) (5.1 - 10.4 %) 7.4 Eos % (Auto) (0.1 - 3.0 %) 1.3 Baso % (Auto) (0.1 - 1.0 %) 0.4 Neut # (Auto) (K/mm3) 7.1 Lymph # (Auto) (K/mm3) 3.0 [place] # (Auto) (K/mm3) 0.8 Eos # (Auto) [...] Castro MD on 07/16 at 0330 RPT #:[id number] END OF REPORT
--- NOTE | 2023-01-06 17:44 | ER ---
Nurse's Notes [facility] Name: Carla Duncan Age: 27 yrs Sex: Female : 1995 Arrival Date: 01/06/2023 Time: 15:33 Bed Treatment Private MD: Pancho Ortega Diagnosis: Discomfort of Presentation: 01/06 15:55 Chief complaint: Patient states: Here 2 days ago. and here to recheck HCG ll1 levels. No vaginal bleeding, slight cramping. Coronavirus screen: Client denies travel out of the [place] in the last 14 days. At this time, the client does not indicate any symptoms associated with coronavirus-19. Ebola Screen: Patient denies travel to an Ebola-affected area in the 21 days before illness onset. Initial Sepsis Screen: Does the patient meet any 2 criteria? No. Patient's initial sepsis screen is negative. Does the patient have a suspected source of infection? No. Patient's initial sepsis screen is negative. Risk Assessment: Do you want to hurt yourself or someone else? Patient reports no desire to harm self or others. Onset of symptoms was December 27, 2022. 15:55 Method Of Arrival: Ambulatory ll1 15:55 Acuity: VENKATESH 4 ll1 Triage Assessment: 15:56 General: Appears in no apparent distress. Behavior is calm, cooperative, appropriate ll1 for age. Pain: Complains of pain in pelvis Quality of pain is described as crampy. GI: Reports cramping. Historical: - Allergies: 15:55 Amoxicillin; ll1 15:55 Naproxen; ll1 15:55 Stadol; ll1 15:55 Tylenol-Codeine #3; ll1 - PMHx: 15:55 adhd; Anxiety; Asthma; Hypertensive disorder; ll1 - PSHx: 15:55 section; ll1 - Immunization history:: Adult Immunizations up to date. - Social history:: Smoking status: Patient denies any tobacco usage or history of. Assessment: 17:28 Reassessment: called pts name in lobby, no response. mb9 Vital Signs: 15:55 BP 112 / 85; Pulse 96; Resp 16; Temp 96.7; Pulse Ox 100% on R/A; Weight 77.11 kg; ll1 Height 5 ft. 0 in. ; Pain 3/10; 15:55 Body Mass Index 33.20 (77.11 kg, 152.4 cm) ll1 15:55 Pain Scale: Adult ll1 ED Course: 15:34 Patient arrived in ED. am2 15:34 Pancho Ortega MD is Private Physician. am2 15:55 Arm band placed on. ll1 15:57 Triage completed. 1 16:07 Owen Caceres PA is PHCP. [facility] 16:07 Shiloh Eduardo MD is Attending Physician. [facility] 16:30 Initial lab(s) drawn, by wi, sent to lab. mb4 16:58 Quantitative Hcg Sent. mb4 17:28 Kathryn Nails, RN is Primary Nurse. mb9 17:46 No provider procedures requiring assistance completed. Patient did not have IV access mb9 during this emergency room visit. Administered Medications: No medications were administered Outcome: 17:43 Discharge ordered by MD. [facility] 17:46 Discharged to home ambulatory. mb9 17:46 Condition: stable 17:46 Discharge instructions given to patient, Instructed on discharge instructions, follow up and referral plans. Demonstrated understanding of instructions, follow-up care. 17:46 Patient left the ED. mb9 Signatures: Owen Caceres PA PA Leigh Ann Alejo am2 Brandie Hutton mb4 Roberta Coker RN RN 1 Kathryn Nails, RN RN mb9
--- NOTE | 2023-01-06 17:44 | EDPHYS ---
Physician Documentation [facility] Name: Carla Duncan Age: 27 yrs Sex: Female : 1995 Arrival Date: 01/06/2023 Time: 15:33 Bed Treatment Private MD: Pancho Ortega ED Physician Shiloh Eduardo HPI: 01/06 17:38 This 27 yrs old Female presents to ER via Ambulatory with complaints of lab jmm recheck, Abdominal Cramping. 17:38 Seen here 2 days ago. Here for repeat quantitative hCG. Denies any increased pain, jmm vomiting, fever, vaginal bleeding, etc.. Historical: - Allergies: 15:55 Amoxicillin; ll1 15:55 Naproxen; ll1 15:55 Stadol; ll1 15:55 Tylenol-Codeine #3; ll1 - PMHx: 15:55 adhd; Anxiety; Asthma; Hypertensive disorder; ll1 - PSHx: 15:55 section; ll1 - Immunization history:: Adult Immunizations up to date. - Social history:: Smoking status: Patient denies any tobacco usage or history of. ROS: 17:38 Constitutional: Negative for fever, chills, and weight loss, Cardiovascular: Negative jmm for chest pain, palpitations, and edema, Respiratory: Negative for shortness of breath, cough, wheezing, and pleuritic chest pain. 17:38 : Positive for Pelvic cramping. 17:38 All other systems are negative. Exam: 17:38 Constitutional: This is a well developed, well nourished patient who is awake, alert, jmm and in no acute distress. Head/Face: atraumatic. Eyes: EOMI, no conjunctival erythema appreciated ENT: Moist Mucus Membranes Neck: Trachea midline, Supple Chest/axilla: Normal chest wall appearance and motion. Cardiovascular: Regular rate and rhythm. No edema appreciated Respiratory: Normal respirations, no respiratory distress appreciated Abdomen/GI: Non distended Back: Normal ROM Skin: General appearance color normal MS/ Extremity: Moves all extremities, no obvious deformities appreciated, no edema noted to the lower extremities Neuro: Awake and alert Psych: Behavior is normal, Mood is normal, Patient is cooperative and pleasant Vital Signs: 15:55 BP 112 / 85; Pulse 96; Resp 16; Temp 96.7; Pulse Ox 100% on R/A; Weight 77.11 kg; ll1 Height 5 ft. 0 in. ; Pain 3/10; 15:55 Body Mass Index 33.20 (77.11 kg, 152.4 cm) ll1 15:55 Pain Scale: Adult ll1 MDM: 16:20 Patient medically screened. grupo 17:38 Data reviewed: vital signs, nurses notes. Counseling: I had a detailed discussion with grupo the patient and/or guardian regarding: the historical points, exam findings, and any diagnostic results supporting the discharge/admit diagnosis, the need for outpatient follow up, to return to the emergency department if symptoms worsen or persist or if there are any questions or concerns that arise at home. 01/06 15:48 Order name: Quantitative Hcg; Complete Time: 17:22 snw Administered Medications: No medications were administered Disposition Summary: 01/06/23 17:43 Discharge Ordered Location: Home grupo Condition: Stable grupo Diagnosis - Discomfort of kyra Followup: [facility] - With: Private Physician - When: 1 - 2 days - Reason: Recheck today's complaints, Continuance of care, Re-evaluation by your physician Discharge Instructions: - Discharge Summary Sheet [facility] Forms: - Medication Reconciliation Form kyra - Thank You Letter kyra - Antibiotic Education kyra - Prescription Opioid Use [facility] - Patient Portal [email or web address] [facility] Signatures: Dispatcher [employer] Owen Mike PA PA jmm Lewis, Lynsay, RN RN ll1
[2023-01-06 17:56] VITALS: BP 112/85; TEMP 96.7; O2SAT 100
== END 2023-01-06 17:46 | disposition home or self-care (01) ==
LOC: ER 15:33
DX: O26.891 Other specified pregnancy related conditions, first trimester (principal); Z3A.00 Weeks of gestation of pregnancy not specified
CPT/HCPCS: 36415; 84702

== ENCOUNTER 2023-04-05 10:29 | Emergency (ER) | payer OTHER ==
--- OUTSIDE RECORDS SUMMARY | 2023-04-05 10:37 | XMS REPORT | Continuity of Care Document ---
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 25mg Take 1 Univers e 25 mg 7-24 tablet by ity of tablet 00:00: mouth [place] 00 every 6 Medical (six) Branch hours as needed for Nausea and Vomiting (N/V). blood sugar Yes [id number] Check U nivers diagnostic 7-24 blood ity of (FREESTYLE 00:00: glucose 4x [place] LITE 00 daily Medical STRIPS) Branch strip lancets Yes [id number] Check Unive rs (FREESTYLE 7-24 glucose 4x ity of LANCETS) 28 00:00: daily [place] gauge Misc 00 Medical Branch Blood-Gluco Yes [id number] Check U nivers se Meter 7-24 blood ity of (FREESTYLE 00:00: glucose 4x [place] LITE METER) 00 daily Medical Kit Branch Yes [id number] 1{tbl} Take 1 U nivers [id number] 7-24 tablet by ity of folic acid 00:00: mouth in [place] 29 mg iron- 00 the Medical 1 mg per morning. Branch tablet cefTRIAXone No 1000mg 1,000 mg, Univers (ROCEPHIN) 12-15 IV ity of 1,000 mg in 04:00: 04:41 [place], [place] NaCl 0.9% 00 :00 ONCE, 1 Medical (NS) 100 mL dose, On [facility] ch MINI-BAG Wed12/14/22 at 2300, Administer over 30 Minutes, 100 mL
Reas on for Anti-Infec tive: Documented Infection< br>Documen jd Infection Site: Urine<br&g t;Duration of Therapy: Other (see Comments) ketorolac 2022- No 15mg 15 mg, Unive rs (TORADOL) 12-15 Slow IV ity of injection 02:30: 01:32 Push, [place] 15 mg 00 :00 ONCE, 1 Medical dose, On Branch 12/14/22 at 2130, RODRICK diphenhydrA 2022- No 25mg 25 mg, Uni vers MINE 12-15 Slow IV ity of (BENADRYL) 02:30: 01:32 Push, [place] injection 00 :00 ONCE, 1 Medical 25 mg dose, On Branch [facility] 12/14/22 at 2130, STAT metoclopram 2022- No 10mg 10 mg, Uni vers dio HCl 12-15 Slow IV ity of (REGLAN) 02:30: 01:32 Push, [place] injection 00 :00 ONCE, 1 Medical 10 mg dose, On Branch 12/14/22 at 2130, RODRICK acetaminoph 2022- No 1000mg 1,000 mg, Univers en 12-15 Oral, ity of (TYLENOL) 00:15: 00:10 ONCE, 1 [place] tablet 00 :00 dose, On Medical 1,000 mg Mon Branch 12/14/22 at 1915, RODRICK ondansetron 2022- No 4mg 4 mg, Slow Univers (ZOFRAN 12-14 IV Push, ity of (PF)) 23:45: 22:59 ONCE, 1 [place] injection 4 00 :00 dose, On Medi [place] mg [facility] Branch 12/14/22 at 1845, RODRICK morpHINE (2 2022- No 4mg 4 mg, Slow Univers mg/mL) 12-14 IV Push, ity of injection 4 23:45: 23:00 ONCE, 1 [place] mg 00 :00 dose, On Medical Mon Branch 12/14/22 at 1845, STAT NaCl 0.9% 2022- No 1000mL at 999 Uni vers (NS) bolus 12-14 mL/hr, ity of infusion 22:30: 02:04 1,000 mL, [place] as 1,000 mL 00 :00 IV Medical Infusion, Branch ONCE, 1 dose, On [facility] 12/14/22 at 1730, STAT ibuprofen 2022-0 Yes [id number] 600mg Take 1 Univers 600 mg 4-24 100 tablet by ity of tablet 00:00: mouth [place] 00 every 6 Medical (six) Branch hours as needed for Pain (scale 4-6). ibuprofen 2022-0 Yes [id number] 600mg Take 1 Univers 600 mg 4-24 100 tablet by ity of tablet 00:00: mouth [place] 00 every 6 Medical (six) Branch hours as needed for Pain (scale 4-6). ibuprofen 2022-0 Yes [id number] 600mg Take 1 Univers 600 mg 4-24 100 tablet by ity of tablet 00:00: mouth [place] 00 every 6 Medical (six) Branch hours as needed for Pain (scale 4-6). ibuprofen 2023-0 2023- No [id number] 600mg Take 1 Univers 600 mg 4-24 07-24 100 tablet by ity of tablet 00:00: 00:00 [...] 2 (two) times a day. ciprofloxac 2023-0 2023- No 500mg Q.5D Take 1 Me thodi in (CIPRO) 1- 08-[address] 500 MG 00:00: 00:00 (500 mg Hospita tablet 00 :00 total) by l mouth 2 (two) times a day. ciprofloxac 2023-0 2023- No 500mg Q.5D Take 1 Me thodi in (CIPRO) 1 08-[address] 500 MG 00:00: 00:00 (500 mg Hospita tablet 00 :00 total) by l mouth 2 (two) times a day. ciprofloxac 2023-0 2023- No 500mg Q.5D Take 1 Me thodi in (CIPRO) 1-25 08-[address] 500 MG 00:00: 00:00 (500 mg Hospita tablet 00 :00 total) by l mouth 2 (two) times a day. ciprofloxac 2023-0 2023- No 500mg Q.5D Take 1 Me thodi in (CIPRO) 1- 08-[address] 500 MG 00:00: 00:00 (500 mg Hospita tablet 00 :00 total) by l mouth 2 (two) times a day. keTOROlac 2023-0 2023- No 10mg Q6H Take 1 Metho di (TORadol) 07-22-31 tablet (10 st 10 mg 00:00: 05:59 [...] to 5 days. phenazopyri 2022- No 200mg Q.[id number] Take 1 Methodi dine 07-[id number] (Pyridium) 00:00: 05:59 3D (200 mg Hos radha 200 MG 00 :00 total) by l tablet mouth 3 (three) times a day as needed for bladder spasms for up to 3 days. phenazopyri 2022-2022- No 200mg Q.50891417 Take 1 Methodi dine 07-[id number] (Pyridium) 00:00: 05:59 3D (200 mg Hos radha 200 MG 00 :00 total) by l tablet mouth 3 (three) times a day as needed for bladder spasms for up to 3 days. phenazopyri 2022- No 200mg Q.[id number] Take 1 Methodi dine 07-[id number] (Pyridium) 00:00: 05:59 3D (200 mg Hos radha 200 MG 00 :00 total) by l tablet mouth 3 (three) times a day as needed for bladder spasms for up to 3 days. phenazopyri 2022- No 200mg Q.85091634 Take 1 Methodi dine 07-[id number] (Pyridium) 00:00: 05:59 3D (200 mg Hos radha 200 MG 00 :00 total) by l tablet mouth 3 (three) times a day as needed for bladder spasms for up to 3 days. phenazopyri 0 2022- No 200mg Q.[id number] Take 1 Methodi dine 07-[id number] (Pyridium) 00:00: 05:59 3D (200 mg Hos radha 200 MG 00 :00 total) by l tablet mouth 3 (three) times a day as needed for bladder spasms for up to 3 days. phenazopyri 2022-0 2022- No 200mg Q.[id number] Take 1 Methodi dine 07-[id number] (Pyridium) 00:00: 05:59 3D (200 mg Hos radha 200 MG 00 :00 total) by l tablet mouth 3 (three) times a day as needed for bladder spasms for up to 3 days. phenazopyri 2022-0 2022- No 200mg Q.[id number] Take 1 Methodi dine 07-[id number] (Pyridium) 00:00: 05:59 3D (200 mg Hos radha 200 MG 00 :00 total) by l tablet mouth 3 (three) times a day as needed for bladder spasms for up to 3 days. phenazopyri 2022-0 2022- No 200mg Q.[id number] Take 1 Methodi dine 07-[id number] (Pyridium) 00:00: 05:59 3D (200 mg Hos radha 200 MG 00 :00 total) by l tablet mouth 3 (three) times a day as needed for bladder spasms for up to 3 days. phenazopyri 2022-0 2022- No 200mg Q.[id number] Take 1 Methodi dine 07-[id number] (Pyridium) 00:00: 05:59 3D (200 mg Hos radha 200 MG 00 :00 total) by l tablet mouth 3 (three) times a day as needed for bladder spasms for up to 3 days. phenazopyri 2022-0 2022- No 200mg Q.22989086 Take 1 Methodi dine 07-[id number] (Pyridium) 00:00: 05:59 3D (200 mg Hos radha 200 MG 00 :00 total) by l tablet mouth 3 (three) times a day as needed for bladder spasms for up to 3 days. phenazopyri 2022-0 2022- No 200mg Q.80564813 Take 1 Methodi dine 07-[id number] (Pyridium) 00:00: 05:59 3D (200 mg Hos radha 200 MG 00 :00 total) by l tablet mouth 3 (three) times a day as needed for bladder spasms for up to 3 days. phenazopyri 2022- No 200mg Q.[id number] Take 1 Methodi dine 07-[id number] (Pyridium) 00:00: 05:59 3D (200 mg Hos radha 200 MG 00 :00 total) by l tablet mouth 3 (three) times a day as needed for bladder spasms for up to 3 days. phenazopyri 2022- No 200mg Q.18173870 Take 1 Methodi dine 07-[id number] (Pyridium) 00:00: 05:59 3D (200 mg Hos radha 200 MG 00 :00 total) by l tablet mouth 3 (three) times a day as needed for bladder spasms for up to 3 days. phenazopyri 2022- No 200mg Q.[id number] Take 1 Methodi dine 07-[id number] (Pyridium) 00:00: 05:59 3D (200 mg Hos radha 200 MG 00 :00 total) by l tablet mouth 3 (three) times a day as needed for bladder spasms for up to 3 days. phenazopyri 2022- No 200mg Q.[id number] Take 1 Methodi dine 07-[id number] (Pyridium) 00:00: 05:59 3D (200 [...] [facility] 05/28/22 at 2230, Routine doxycycline 2021-06- No [...] mg 00 :00 dose, On Medical Elicia [place] 05/28/22 at 2030, STAT ketorolac 2021-06- No 15mg 15 mg, Unive rs (TORADOL) 07-30 Slow IV ity of injection 01:45: 01:01 Push, [place] 15 mg 00 :00 ONCE, 1 Medical dose, On [facility] 05/28/22 at 1945, Routine iopamidol 2021-06- No [id number] 75mL 75 mL, Univers (ISOVUE 07-30 Intravenou ity o f 370-500 mL) 01:15: 01:15 s, ONCE, 1 [place] injection 00 :00 dose, On Medica l 75 mL [facility] 05/28/22 at 1915, Routine FENTanyl PF 2021-06- No 50ug 50 mcg, Un [place] (SUBLIMAZE 07-30 Slow IV ity o f (PF)) 01:00: 00:11 Push, [place] injection 00 :00 ONCE, 1 Medical 50 mcg dose, On [facility] 05/28/22 at 1900, Routine ondansetron 2021-06- No 4mg 4 mg, Slow Univers (ZOFRAN 07-30 IV Push, ity of (PF)) 00:15: 00:11 ONCE, 1 [place] injection 4 00 :00 dose, On Medi [place] mg [facility] 05/28/22 at 1815, RODRICK metroNIDAZO 2021-06 Yes [id number] 500mg Take 1 Univers LE 500 mg 2-01 tablet by ity o f tablet 00:00: mouth in [place] 00 the Medical morning Branch and 1 tablet in the evening. metroNIDAZO 2021-06 Yes [id number] 500mg Take 1 Univers LE 500 mg 2-01 tablet by ity o f tablet 00:00: mouth in [place] 00 the Medical morning Branch and 1 tablet in the evening. metroNIDAZO 2021-06 Yes [id number] 500mg Take 1 Univers LE 500 mg 2-01 tablet by ity o f tablet 00:00: mouth in [place] 00 the Medical morning Branch and 1 tablet in the evening. metroNIDAZO 2021-06 Yes [id number] 500mg Take 1 Univers LE 500 mg 2-01 tablet by ity o f tablet 00:00: mouth in [place] 00 the Medical morning Branch and 1 tablet in the evening. metroNIDAZO 2021-06- No [id number] 500mg Take 1 Univers LE 500 mg 2-01 07-24 tablet by ity of tablet 00:00: 00:00 mouth in [place] 00 :00 the Medical morning Branch and 1 tablet in the evening. doxycycline 2021-06- No [id number] 100mg Take 1 Univers hyclate 100 07-29 capsule by i ty of mg capsule 00:00: 05:59 mouth [place] 00 :00 the Medical morning Branch and [...] Take 800 Me thodi (ADVIL) 200 03-26 09-[address] MG tablet 08:46: [...] needed for nausea or vomiting. ibuprofen 2021-0 3- No 800mg Q8H Take 1 Meth shamir (ADVIL) 800 9-29 08-[address] MG tablet 00:00: 00:00 (800 mg [facility] 00 :00 total) by l mouth every 8 (eight) hours as needed for mild pain. ondansetron 2021-0 3- No 4mg Q8H Take 1 Met hodi ODT - 08-20 tablet (4 st (ZOFRAN-ODT 00:00: 00:00 mg total) Hospita ) 4 MG 00 :00 by mouth l disintegrat every 8 ing tablet (eight) hours as needed for nausea or vomiting. ibuprofen 2021-0 3- No 800mg Q8H Take 1 Meth shamir (ADVIL) 800 9-29 08-[address] MG tablet 00:00: 00:00 (800 mg [facility] 00 :00 total) by l mouth every 8 (eight) hours as needed for mild pain. ondansetron 2021-0 2023- No 4mg Q8H Take 1 Met hodi ODT 9-29 08-20 tablet (4 st (ZOFRAN-ODT 00:00: 00:00 mg total) Hospita ) 4 MG 00 :00 by mouth l disintegrat every 8 ing tablet (eight) hours as needed for nausea or vomiting. ibuprofen 2021-0 2023- No 800mg Q8H Take 1 Meth shamir (ADVIL) 800 9-29 08-[address] MG tablet 00:00: 00:00 (800 mg [facility] 00 :00 total) by l mouth every 8 (eight) hours as needed for mild pain. ondansetron 2021-0 2023- No 4mg Q8H Take 1 Met hodi ODT 9-29 08-20 tablet (4 st (ZOFRAN-ODT 00:00: 00:00 mg total) Hospita ) 4 MG 00 :00 by mouth l disintegrat every 8 ing tablet (eight) hours as needed for nausea or vomiting. ibuprofen No 800mg Q8H Take 1 Meth shamir (ADVIL) 800 03-26-[address] MG tablet 00:00: 00:00 (800 mg [facility] 00 :00 total) by l mouth every 8 (eight) hours as needed for mild pain. ondansetron 2022- No 4mg Q8H Take 1 Met hodi ODT 03-26 08-20 tablet (4 st (ZOFRAN-ODT 00:00: 00:00 mg total) Hospita ) 4 MG 00 :00 by mouth l disintegrat every 8 ing tablet (eight) hours as needed for nausea or vomiting. ALPRAZolam Yes alprazolam U nivers 0.5 mg 9-03 0.5 mg ity of tablet 12:44: tablet [facility] bupropion Yes bupropion Uni vers HBr 02-28 HBr ity of (APLENZIN 12:44: [place] ORAL) [facility] FLUoxetine Yes fluoxetine U nivers 20 mg 9-03 20 mg ity of capsule 12:44: capsule [facility] ALPRAZolam Yes alprazolam U nivers 0.5 mg 9-03 0.5 mg ity of tablet 12:44: tablet [facility] bupropion Yes bupropion Uni vers HBr 02-28 HBr ity of (APLENZIN 12:44: [place] ORAL) [facility] FLUoxetine Yes fluoxetine U nivers 20 mg 9-03 20 mg ity of capsule 12:44: capsule [facility] ALPRAZolam Yes alprazolam U nivers 0.5 mg 9-03 0.5 mg ity of tablet 12:44: tablet [facility] bupropion Yes bupropion Uni vers HBr 02-28 HBr ity of (APLENZIN 12:44: [place] ORAL) [facility] FLUoxetine Yes fluoxetine U nivers 20 mg 9-03 20 mg ity of capsule 12:44: capsule [facility] Branch ALPRAZolam Yes alprazolam U nivers 0.5 mg 02-28 0.5 mg ity of tablet 12:44: tablet [facility] bupropion Yes bupropion Uni vers HBr 02-28 HBr ity of (APLENZIN 12:44: [place] ORAL) [facility] FLUoxetine Yes fluoxetine U nivers 20 mg 02-28 20 mg ity of capsule 12:44: capsule [facility] Branch famotidine 2021- No 20mg 20 mg, Univ [...] 0.5 mg ity of tablet 23:48: tablet [place] [facility] bupropion Yes bupropion Uni vers HBr 02-26 HBr ity of (APLENZIN 23:48: [place] ORAL) [facility] FLUoxetine Yes fluoxetine U nivers 20 mg 02-26 20 mg ity of capsule 23:48: capsule [place] [facility] ciprofloxac 2021- No 500mg Q.5D Take 1 [...] 7 days. phenazopyri 2021-0 2021- No 200mg Q.[id number] Take 1 Methodi dine 02-[id number] (PYRIDIUM) 00:00: 04:59 3D (200 mg Hos radha 200 MG 00 :00 total) by l tablet mouth 3 (three) times a day for 3 days. phenazopyri 2021-0 2021- No 200mg Q.[id number] Take 1 Methodi dine 02-[id number] (PYRIDIUM) 00:00: 04:59 3D (200 mg Hos radha 200 MG 00 :00 total) by l tablet mouth 3 (three) times a day for 3 days. phenazopyri 2021-0 2021- No 200mg Q.[id number] Take 1 Methodi dine 02-[id number] (PYRIDIUM) 00:00: 04:59 3D (200 mg Hos radha 200 MG 00 :00 total) by l tablet mouth 3 (three) times a day for 3 days. phenazopyri 2021-0 2- No 200mg Q.[id number] Take 1 Methodi dine 02-[id number] (PYRIDIUM) 00:00: 04:59 3D (200 mg Hos radha 200 MG 00 :00 total) by l tablet mouth 3 (three) times a day for 3 days. phenazopyri 2021-0 2022- No 200mg Q.[id number] Take 1 Methodi dine 02-[id number] (PYRIDIUM) 00:00: 04:59 3D (200 mg Hos radha 200 MG 00 :00 total) by l tablet mouth 3 (three) times a day for 3 days. phenazopyri 2021-0 202- No 200mg Q.[id number] Take 1 Methodi dine 02-[id number] (PYRIDIUM) 00:00: 04:59 3D (200 mg Hos radha 200 MG 00 :00 total) by l tablet mouth 3 (three) times a day for 3 days. phenazopyri 2021-0 2021- No 200mg Q.[id number] Take 1 Methodi dine 02-[id number] (PYRIDIUM) 00:00: 04:59 3D (200 mg Hos radha 200 MG 00 :00 total) by l tablet mouth 3 (three) times a day for 3 days. phenazopyri 2021-0 2021- No 200mg Q.[id number] Take 1 Methodi dine 02-[id number] (PYRIDIUM) 00:00: 04:59 3D (200 mg Hos radha 200 MG 00 :00 total) by l tablet mouth 3 (three) times a day for 3 days. phenazopyri 2021-0 2021- No 200mg Q.[id number] Take 1 Methodi dine 02-[id number] (PYRIDIUM) 00:00: 04:59 3D (200 mg Hos radha 200 MG 00 :00 total) by l tablet mouth 3 (three) times a day for 3 days. phenazopyri 2-0 2021- No 200mg Q.[id number] Take 1 Methodi dine 02-[id number] (PYRIDIUM) 00:00: 04:59 3D (200 mg Hos radha 200 MG 00 :00 total) by l tablet mouth 3 (three) times a day for 3 days. phenazopyri 2022-0 2022- No 200mg Q.[id number] Take 1 Methodi dine 02-[id number] (PYRIDIUM) 00:00: 04:59 3D (200 mg Hos radha 200 MG 00 :00 total) by l tablet mouth 3 (three) times a day for 3 days. phenazopyri 2021-0 202- No 200mg Q.[id number] Take 1 Methodi dine 02-[id number] (PYRIDIUM) 00:00: 04:59 3D (200 mg Hos radha 200 MG 00 :00 total) by l tablet mouth 3 (three) times a day for 3 days. phenazopyri 2021-0 2021- No 200mg Q.[id number] Take 1 Methodi dine 02-[id number] (PYRIDIUM) 00:00: 04:59 3D (200 mg Hos radha 200 MG 00 :00 total) by l tablet mouth 3 (three) times a day for 3 days. phenazopyri 2021-0 2021- No 200mg Q.[id number] Take 1 Methodi dine 02-[id number] (PYRIDIUM) 00:00: 04:59 3D (200 mg Hos radha 200 MG 00 :00 total) by l tablet mouth 3 (three) times a day for 3 days. phenazopyri 2021-0 2021- No 200mg Q.[id number] Take 1 Methodi dine 02-[id number] (PYRIDIUM) 00:00: 04:59 3D (200 mg Hos radha 200 MG 00 :00 total) by l tablet mouth 3 (three) times a day for 3 days. phenazopyri 2021-0 2021- No 200mg Q.[id number] Take 1 Methodi dine 02-[id number] (PYRIDIUM) 00:00: 04:59 3D (200 mg Hos radha 200 MG 00 :00 total) by l tablet mouth 3 (three) times a day for 3 days. phenazopyri 2021-0 2021- No 200mg Q.[id number] Take 1 Methodi dine 02-[id number] (PYRIDIUM) 00:00: 04:59 3D (200 mg Hos radha 200 MG 00 :00 total) by l tablet mouth 3 (three) times a day for 3 days. phenazopyri 2021- No 200mg Q.[id number] Take 1 Methodi dine 02-[id number] (PYRIDIUM) 00:00: 04:59 3D (200 mg Hos radha 200 MG 00 :00 total) by l tablet mouth 3 (three) times a day for 3 days. phenazopyri 2021- No 200mg Q.[id number] Take 1 Methodi dine 02-[id number] (PYRIDIUM) 00:00: 04:59 3D (200 [...] 12/31/20 at Branch 0300, RODRICK ibuprofen Yes [id number] 800mg Take 1 U nivers 800 mg 7-06 tablet by ity of tablet 00:00: mouth [place] 00 every 8 Medical (eight) Branch hours as needed for Pain (scale 4-6). cyclobenzap Yes [id number] 10mg Take 1 Univers rine 10 mg 7-06 tablet by ity of tablet 00:00: mouth 3 [place] 00 (three) Medical times Branch daily as needed for Muscle Spasms. ibuprofen 2021- No [id number] 800mg Take 1 Univers 800 mg 7- 09- tablet by ity of tablet 00:00: 00:00 mouth [place] 00 :00 every 8 Medical (eight) Branch hours as needed for Pain (scale 4-6). cyclobenzap 2021- No [id number] 10mg Take 1 Univers rine 10 mg [...] 1,000 mL 00 :00 IV Medical Infusion, [place] ONCE, 1 dose, [facility] 11/20/20 at 1530, STAT metoclopram 2020- No 10mg 10 mg, Uni vers dio HCl 11-20 Slow IV ity of (REGLAN) 20:15: 19:18 Push, [place] injection 00 :00 ONCE, 1 Medical 10 mg dose, [facility] 11/20/20 at 1515, ORDRICK ketorolac 2020- No 30mg 30 mg, Unive rs (TORADOL) 11-20 Slow IV ity of injection 20:15: 19:18 Push, [place] 30 mg 00 :00 ONCE, 1 Medical dose, [facility] 11/20/20 at 1515, RODRICK
Fa culty member approving Restricted medication : JOHN BECKHAM diphenhydrA 2020- No 25mg 25 mg, Uni vers MINE - 05-26 Slow IV ity of (BENADRYL) 20:15: 20:15 Push, [place] injection 00 :00 ONCE, 1 Medical 25 mg dose, Wed Branch 11/20/20 at 1515, STAT butalbital- Yes 1{tbl} 1 tablet, Univers acetaminoph - Oral, ity of en-caff 18:12: Q4HPRN, [place] (ESGIC) 27 Starting Medical 50-325-40 Wed Branch mg tablet 1 11/20/20 at tablet 1312, Until Discontinu ed, Routine, zofran ketorolac 0 Yes [id number] 10mg Take 1 Un car[place] 10 mg 5-26 tablet by ity of tablet 00:00: mouth [place] 00 every 6 Medical (six) Branch hours as needed for Pain (scale 4-6). cyclobenzap Yes [id number] 10mg Take 1 Univers rine 10 mg 5-26 tablet by ity of tablet 00:00: mouth 3 [place] 00 (three) Medical times Branch daily. ketorolac 2020-0 Yes [id number] 10mg Take 1 Un [place]ann 10 mg 5-26 tablet by ity of tablet 00:00: mouth [place] 00 every 6 Medical (six) Branch hours as needed for Pain (scale 4-6). cyclobenzap Yes [id number] 10mg Take 1 Univers rine 10 mg 5-26 tablet by ity of tablet 00:00: mouth 3 [place] 00 (three) Medical times Branch daily. ketorolac 2020-0 2021- No [id number] 10mg Take 1 U nivers 10 mg 5-26 - tablet by ity of tablet 00:00: 00:00 mouth [place] 00 :00 every 6 Medical (six) Branch hours as needed for Pain (scale 4-6). cyclobenzap 2020-0 2021- No [id number] 10mg Take 1 Univers rine 10 mg 5-26 - tablet by ity of tablet 00:00: 00:00 mouth 3 [place] 00 :00 (three) Medical times Branch daily. ketorolac 2020-0 2021- No 30mg 30 mg, Unive rs (TORADOL) 09-27 Intramuscu ity of injection 03:45: 02:57 [place], ONCE, [place] 30 mg 00 :00 1 dose, Medical Elicia 09/26/20 Branch at 2245, RODRICK
Fa culty member approving Restricted medication : TROY, Tricia LLUVIA diphenhydrA 2020- No 25mg 25 mg, Uni [...] 09/26/20 Branch at 2245, RODRICK ondansetron Yes [id number] 4mg Take 1 Univers (ZOFRAN 4-01 tablet by ity of ODT) 4 mg 00:00: mouth [place] disintegrat 00 every 8 Medic al ing tablet (eight) Branch hours as needed for Nausea and Vomiting (N/V). ondansetron Yes [id number] 4mg Take 1 Univers (ZOFRAN 4-01 tablet by ity of ODT) 4 mg 00:00: mouth [place] disintegrat 00 every 8 Medic al ing tablet (eight) Branch hours as needed for Nausea and Vomiting (N/V). ondansetron Yes [id number] 4mg Take 1 Univers (ZOFRAN 4-01 tablet by ity of ODT) 4 mg 00:00: mouth [place] disintegrat 00 every 8 Medic al ing tablet (eight) Branch hours as needed for Nausea and Vomiting (N/V). ondansetron 2021- No [id number] 4mg Take 1 Univers (ZOFRAN 4-01 09-01 tablet by ity of ODT) 4 mg 00:00: 00:00 mouth [place] disintegrat 00 :00 every 8 Medic al ing tablet (eight) Branch hours as needed for Nausea and Vomiting (N/V). proMETHazin Yes [id number] 25mg Take 1 Univers e 25 mg 2-09 tablet by ity of tablet 00:00: mouth [place] 00 every 6 Medical (six) Branch hours as needed for Nausea and Vomiting (N/V). proMETHazin Yes [id number] 25mg Take 1 Univers e 25 mg 2-09 tablet by ity of tablet 00:00: mouth [place] 00 every 6 Medical (six) Branch hours as needed for Nausea and Vomiting (N/V). proMETHazin Yes [id number] 25mg Take 1 Univers e 25 mg 2-09 tablet by ity of tablet 00:00: mouth [place] 00 every 6 Medical (six) Branch hours as needed for Nausea and Vomiting (N/V). proMETHazin 2021- No [id number] 25mg Take 1 Univers e 25 mg [...] Wed Branch 07/17/20 at 0730, [facility] WILD [...] Wed Branch 07/17/20 at 0730, RODRICK ibuprofen 2019- Yes 800mg Q6H Take 800 Met hodi (ADVIL) 200 2-[address] MG tablet 23:05: mouth Hospita 17 every 6 l (six) hours as needed for mild pain. acetaminoph 2019- Yes 2{tbl} Take 2 Me [...] Univ ers vit 5-29 t} Packet by bill of 33-iron-fol 00:00: mouth [place] ic-dha 00 [...] -250 mg combo pack Immunizations Ordered Filled Date Status Comments Source Immunization Name Immunization Name Td 2011-06-28 Completed University of 00:00:00 [facility] Td 2011-06-28 Completed University of 00:00:00 [facility] Td 2011-06-28 Completed University of 00:00:00 [facility] Td 2011-06-28 Completed University of 00:00:00 [facility] Branch Td 2011-06-28 Completed University of 00:00:00 [facility] TD, NOS 2011-06-28 Completed University of 00:00:00 [facility] TD, NOS 2011-06-28 Completed University of 00:00:00 [facility] TD, NOS 2011-06-28 Completed University of 00:00:00 [facility] Branch TD, NOS 2011-06-28 Completed University of 00:00:00 [facility] Branch TD, NOS 2011-06-28 Completed University of 00:00:00 [facility] TD, NOS 2011-06-28 Completed University of 00:00:00 [place] [facility] TD, NOS 2011-06-28 Completed University of 00:00:00 [place] [facility] TD, NOS 2011-06-28 Completed University of 00:00:00 [place] [facility] TD, NOS 2011-06-28 Completed University of 00:00:00 [place] [facility] TD, NOS 2011-06-28 Completed University of 00:00:00 [place] [facility] TD, NOS 2011-06-28 Completed University of 00:00:00 [place] [facility] TD, NOS 2011-06-28 Completed University of 00:00:00 [place] [facility] TD, NOS 2011-06-28 Completed University of 00:00:00 [place] [facility] Td 2011-06-28 Completed University of 00:00:00 [facility] Branch TD, NOS Unknown Completed [place] [facility] Vital Signs Vital Name Observation Time Observation Value Comments Source Systolic blood 2023-03-08 21:00:00 132 mm[Hg] Univer sity of pressure [facility] Diastolic blood 2023-03-08 21:00:00 79 mm[Hg] [facility] Heart rate 2023-03-08 21:00:00 79 /min [facility] Body temperature 2023-03-08 21:00:00 37.11 [place] [facility] Respiratory rate 2023-03-08 21:00:00 20 /min [facility] Oxygen saturation in 2023-03-08 21:00:00 96 /min [facility] Arterial blood by [facility] Pulse oximetry Branch Body height 2023-03-07 19:16:33 157.5 cm [facility] Body weight 2023-03-07 19:16:33 77.111 kg [facility] BMI 2023-03-07 19:16:33 31.09 kg/m2 [facility] Systolic blood 2023-03-07 17:00:00 129 mm[Hg] Univer sity of pressure [facility] Diastolic blood 2023-03-07 17:00:00 83 mm[Hg] Unive rsity of pressure [facility] Heart rate 2023-03-07 17:00:00 122 /min [facility] Respiratory rate 2023-03-07 17:00:00 21 /min [facility] Oxygen saturation in 2023-03-07 17:00:00 100 /min [facility] Arterial blood by [facility] Pulse oximetry Branch Body temperature 2023-03-07 13:52:00 35.78 [place] [facility] Body height 2023-03-07 13:52:00 152.4 cm [facility] Body weight 2023-03-07 13:52:00 77.111 kg [facility] BMI 2023-03-07 13:52:00 33.20 kg/m2 [facility] Systolic blood 2023-02-15 23:05:00 131 mm[Hg] Univer sity of pressure [facility] Diastolic blood 2023-02-15 23:05:00 81 mm[Hg] Unive rsity of pressure [facility] Heart rate 2023-02-15 23:05:00 100 /min [facility] Body temperature 2023-02-15 23:05:00 36.72 [place] [facility] Respiratory rate 2023-02-15 23:05:00 20 /min [facility] Oxygen saturation in 2023-02-15 23:05:00 99 /min [facility] of Arterial blood by [facility] Pulse oximetry Branch Body weight 2023-02-15 23:03:00 79.379 kg [facility] BMI 2023-02-15 23:03:00 34.18 kg/m2 [facility] Systolic blood 2023-01-18 13:45:00 138 mm[Hg] Univer sity of pressure [facility] Diastolic blood 2023-01-18 13:45:00 82 mm[Hg] Unive rsity of pressure [facility] Heart rate 2023-01-18 13:45:00 87 /min [facility] Body temperature 2023-01-18 13:45:00 35.72 [place] [facility] Respiratory rate 2023-01-18 13:45:00 18 /min [facility] Body height 2023-01-18 13:45:00 152.4 cm [facility] Body weight 2023-01-18 13:45:00 79.561 kg [facility] BMI 2023-01-18 13:45:00 34.26 kg/m2 [facility] Systolic blood 2022-12-15 04:30:00 94 mm[Hg] Univer sity of pressure [facility] Diastolic blood 2022-12-15 04:30:00 58 mm[Hg] Unive rsity of pressure [facility] Heart rate 2022-12-15 04:30:00 88 /min [facility] Respiratory rate 2022-12-15 04:30:00 13 /min [facility] Oxygen saturation in 2022-12-15 04:30:00 96 /min [facility] Arterial blood by [place] [employer] Pulse oximetry Branch Body temperature 2022-12-15 04:00:00 37 [place] [facility] Body height 2022-12-14 20:54:00 152.4 cm [facility] Body weight 2022-12-14 20:54:00 79.379 kg [facility] BMI 2022-12-14 20:54:00 34.18 kg/m2 [facility] Systolic blood 2022-10-19 14:30:00 129 mm[Hg] Univer sity of pressure [facility] Diastolic blood 2022-10-19 14:30:00 93 mm[Hg] Unive rsity of pressure [facility] Heart rate 2022-10-19 14:30:00 73 /min [facility] Respiratory rate 2022-10-19 14:30:00 14 /min [facility] Oxygen saturation in 2022-10-19 14:30:00 100 /min [facility] Arterial blood by [place] [employer] [facility] Pulse oximetry Branch Body temperature 2022-10-19 13:22:00 37 [place] [facility] Body height 2022-10-19 13:22:00 152.4 cm [facility] Body weight 2022-10-19 13:22:00 79.833 kg [facility] BMI 2022-10-19 13:22:00 34.37 kg/m2 [facility] Systolic blood 2022-05-29 04:19:00 123 mm[Hg] Univer [facility]ity of pressure [facility] Diastolic blood 2022-05-29 04:19:00 87 mm[Hg] Unive rsity of pressure [facility] Heart rate 2022-05-29 04:19:00 93 /min [facility] Respiratory rate 2022-05-29 04:19:00 18 /min [facility] Oxygen saturation in 2022-05-29 04:19:00 97 /min [facility] Arterial blood by [place] [employer] [facility] Pulse oximetry Branch Body temperature 2022-05-28 23:42:00 37.11 [place] [facility] Body height 2022-05-28 23:42:00 152.4 cm [facility] Systolic blood 2022-02-27 05:31:00 130 mm[Hg] Univer [facility]ity of pressure [facility] Diastolic blood 2022-02-27 05:31:00 87 mm[Hg] Unive rsity of pressure [facility] Heart rate 2022-02-27 05:31:00 98 /min [facility] Respiratory rate 2022-02-27 05:31:00 18 /min [facility] Oxygen saturation in 2022-02-27 05:31:00 99 /min [facility] Arterial blood by [place] [employer] [facility] Pulse oximetry Branch Body height 2022-02-27 03:38:00 152.4 cm [facility] Body weight 2022-02-27 03:38:00 82.101 kg [facility] BMI 2022-02-27 03:38:00 35.35 kg/m2 [facility] Body temperature 2022-02-27 03:36:00 36.28 [place] [facility] Systolic blood 2020-12-31 06:49:00 125 mm[Hg] Univer [facility]ity of pressure [facility] Diastolic blood 2020-12-31 06:49:00 93 mm[Hg] Unive rsity of pressure [facility] Heart rate 2020-12-31 06:49:00 104 /min [facility] Body temperature 2020-12-31 06:49:00 36.83 [place] [facility] Respiratory rate 2020-12-31 06:49:00 15 /min [facility] Body height 2020-12-31 06:49:00 152.4 cm [facility] Body weight 2020-12-31 06:49:00 92.5 kg [facility] BMI 2020-12-31 06:49:00 39.83 kg/m2 [facility] Oxygen saturation in 2020-12-31 06:49:00 99 /min [facility] Arterial blood by [place] [employer] [facility] Pulse oximetry Branch Systolic blood 2020-12-31 06:49:00 125 mm[Hg] Univer [facility]ity of pressure [facility] Diastolic blood 2020-12-31 06:49:00 93 mm[Hg] Unive rsity of pressure [facility] Heart rate 2020-12-31 06:49:00 104 /min [facility] Body temperature 2020-12-31 06:49:00 36.83 [place] [facility] Respiratory rate 2020-12-31 06:49:00 15 /min [facility] Body height 2020-12-31 06:49:00 152.4 cm [facility] Body weight 2020-12-31 06:49:00 92.5 kg [facility] BMI 2020-12-31 06:49:00 39.83 kg/m2 [facility] Oxygen saturation in 2020-12-31 06:49:00 99 /min [facility] Arterial blood by [facility] Pulse oximetry Branch Systolic blood 2020-11-20 19:58:00 146 mm[Hg] Univer sity of pressure [facility] Diastolic blood 2020-11-20 19:58:00 95 mm[Hg] Unive rsity of pressure [facility] Heart rate 2020-11-20 19:58:00 98 /min [facility] Body temperature 2020-11-20 19:58:00 37.17 [place] [facility] Respiratory rate 2020-11-20 19:58:00 17 /min [facility] Oxygen saturation in 2020-11-20 19:58:00 100 /min [facility] Arterial blood by [place] [employer] Pulse oximetry Branch Body weight 2020-11-20 16:43:00 92.534 kg [facility] BMI 2020-11-20 16:43:00 39.84 kg/m2 [facility] Systolic blood 2020-11-20 19:58:00 146 mm[Hg] Univer sity of pressure [facility] Diastolic blood 2020-11-20 19:58:00 95 mm[Hg] Unive rsity of pressure [facility] Heart rate 2020-11-20 19:58:00 98 /min [facility] Body temperature 2020-11-20 19:58:00 37.17 [place] [facility] Respiratory rate 2020-11-20 19:58:00 17 /min [facility] Oxygen saturation in 2020-11-20 19:58:00 100 /min [facility] Arterial blood by [place] [employer] Pulse oximetry Branch Body weight 2020-11-20 16:43:00 92.534 kg [facility] BMI 2020-11-20 16:43:00 39.84 kg/m2 [facility] Body height 2020-09-26 23:49:00 152.4 cm [facility] Body weight 2020-09-26 23:49:00 90.719 kg [facility] BMI 2020-09-26 23:49:00 39.06 kg/m2 [facility] Systolic blood 2020-09-26 23:45:00 103 mm[Hg] Univer sity of pressure [facility] Diastolic blood 2020-09-26 23:45:00 62 mm[Hg] Unive rsity of pressure [facility] Heart rate 2020-09-26 23:45:00 107 /min [facility] Body temperature 2020-09-26 23:45:00 36.61 [place] [facility] Respiratory rate 2020-09-26 23:45:00 18 /min [facility] Oxygen saturation in 2020-09-26 23:45:00 97 /min [facility] Arterial blood by [place] [employer] Pulse oximetry Branch Body height 2020-09-26 23:49:00 152.4 cm [facility] Body weight 2020-09-26 23:49:00 90.719 kg [facility] BMI 2020-09-26 23:49:00 39.06 kg/m2 [facility] Systolic blood 2020-09-26 23:45:00 103 mm[Hg] Univer sity of pressure [facility] Diastolic blood 2020-09-26 23:45:00 62 mm[Hg] Unive rsity of pressure [facility] Heart rate 2020-09-26 23:45:00 107 /min [facility] Body temperature 2020-09-26 23:45:00 36.61 [place] [facility] Respiratory rate 2020-09-26 23:45:00 18 /min [facility] Oxygen saturation in 2020-09-26 23:45:00 97 /min [facility] Arterial blood by [place] [employer] Pulse oximetry Branch Systolic blood 2020-07-17 14:00:00 112 mm[Hg] Univer sity of pressure [facility] Diastolic blood 2020-07-17 14:00:00 65 mm[Hg] Unive rsity of pressure [facility] Heart rate 2020-07-17 14:00:00 86 /min [facility] Respiratory rate 2020-07-17 14:00:00 20 /min [facility] Oxygen saturation in 2020-07-17 14:00:00 100 /min [facility] Arterial blood by [place] [employer] [facility] Pulse oximetry Branch Body temperature 2020-07-17 11:50:00 37.22 [place] [facility] Body weight 2020-07-17 11:50:00 86.183 kg [facility] BMI 2020-07-17 11:50:00 37.11 kg/m2 [facility] Systolic blood 2020-07-17 14:00:00 112 mm[Hg] Univer sity of pressure [facility] Diastolic blood 2020-07-17 14:00:00 65 mm[Hg] Unive rsity of pressure [facility] Heart rate 2020-07-17 14:00:00 86 /min [facility] Respiratory rate 2020-07-17 14:00:00 20 /min [facility] Oxygen saturation in 2020-07-17 14:00:00 100 /min University Arterial blood by [facility] Pulse oximetry Branch Body temperature 2020-07-17 11:50:00 37.22 [place] [facility] Body weight 2020-07-17 11:50:00 86.183 kg [facility] BMI 2020-07-17 11:50:00 37.11 kg/m2 [facility] Systolic blood 2023-02-27 00:45:00 107 mm[Hg] Method [facility] pressure Diastolic blood 2023-02-27 00:45:00 77 mm[Hg] [facility] pressure Heart rate 2023-02-27 00:45:00 88 /min [facility] Body temperature 2023-02-27 00:45:00 36.56 [place] [facility] Respiratory rate 2023-02-27 00:45:00 19 /min [facility] Oxygen saturation in 2023-02-27 00:45:00 97 /min [facility] Arterial blood by Pulse oximetry Body height 2023-02-26 23:18:00 152.4 cm [facility] Body weight 2023-02-26 23:18:00 79.379 kg [facility] BMI 2023-02-26 23:18:00 34.18 kg/m2 [facility] Systolic blood 2022-07-22 19:04:00 122 mm[Hg] Method [facility] pressure Diastolic blood 2022-07-22 19:04:00 72 mm[Hg] [facility] pressure Heart rate 2022-07-22 19:04:00 72 /min [facility] Respiratory rate 2022-07-22 19:04:00 18 /min [facility] Oxygen saturation in 2022-07-22 19:04:00 100 /min [facility] Arterial blood by Pulse oximetry Body temperature 2022-07-22 17:04:00 36.72 [place] [facility] Body height 2022-07-22 17:04:00 157.5 cm [facility] Body weight 2022-07-22 17:04:00 85.276 kg [facility] BMI 2022-07-22 17:04:00 34.39 kg/m2 [facility] Systolic blood 2022-03-26 13:44:00 139 mm[Hg] [facility] pressure Diastolic blood 2022-03-26 13:44:00 83 mm[Hg] [facility] pressure Heart rate 2022-03-26 13:44:00 101 /min [facility] Respiratory rate 2022-03-26 13:44:00 18 /min [facility] Oxygen saturation in 2022-03-26 13:44:00 100 /min [facility] Arterial blood by Pulse oximetry Body temperature 2022-03-26 12:32:00 36.72 [place] [facility] Body height 2022-03-26 12:32:00 157.5 cm [facility] Body weight 2022-03-26 12:32:00 85.276 kg [facility] BMI 2022-03-26 12:32:00 34.39 kg/m2 [facility] Procedures Procedure Date / Time Performing Clinician Source Performed MR LUMBAR SPINE WO 2023-03-08 19:34:[address] [facility] MR THORACIC SPINE WO 2023-03-08 19:24:14 Deann Mosley [facility] XR HAND 3+ VW BILATERAL 2023-03-08 14:54:00 Deann Mosley [facility] BASIC METABOLIC PANEL 2023-03-08 11:38:00 Deann Mosley [facility] (NA, K, CL, CO2, Medical Branch GLUCOSE, BUN, CREATININE, CA) CBC WITHOUT DIFF 2023-03-08 11:38:00 Deann Mosley [facility] CT CERVICAL SPINE WO 2023-03-07 19:52:00 Lorena Penaloza [facility] CT HEAD WO CONTRAST 2023-03-07 19:52:00 Lorena Penaloza [facility] CT THORAX WO CONTRAST 2023-03-07 19:52:00 Lorena Penaloza [facility] US FIRST 2023-03-07 16:34:08 Michael Mcknight [facility] TRIMESTER LESS THAN 14 [facility] WEEKS URINE DRUG (IMMUNOASSAY) 2023-03-07 15:52:00 Michael Mcknight [facility] SCREEN URINALYSIS 2023-03-07 15:52:00 Michael Mcknight [facility] BASIC METABOLIC PANEL 2023-03-07 14:16:00 Michael Mcknight [facility] (NA, K, CL, CO2, Medical Branch GLUCOSE, BUN, CREATININE, CA) CBC WITH DIFF 2023-03-07 14:16:00 Michael Mcknight [facility] URINE CULTURE 2023-02-26 23:32:00 [facility] COVID-19, INFLUENZA A&B, 2023-02-26 23:32:00 [facility] AND RSV QUALITATIVE RT-PCR URINALYSIS 2023-02-26 23:32:00 [facility] ASSIGNMENT OF BENEFITS 2023-02-15 22:59:54 Doctor Unassigned, No [facility] CONSENT/REFUSAL FOR 2023-02-15 22:56:23 Doctor Unassigned, No [facility] DIAGNOSIS AND TREATMENT [facility] URINE CULTURE 2023-02-15 02:50:00 [facility] US SINGLE LESS 2023-02-15 02:03[facility] W[facility] URINALYSIS 2023-02-15 00:54:00 [facility] HCG QUALITATIVE, URINE 2023-02-15 00:54:00 [facility] SCREEN [facility] POCT TEST 2023-01-18 13:47:00 Maicol Dumont [facility] POCT URINALYSIS W/O 2023-01-18 13:47:00 Maicol Dumont [facility] [place] SPECIFIC GRAVITY [facility] ASSIGNMENT OF BENEFITS 2023-01-18 13:07:36 Doctor Unassigned, No [facility] D-DIMER 2022-12-15 02:19:00 Tricia Simmons Lluvia [facility] CT ABDOMEN PELVIS WO 2022-12-14 23:46:00 Tricia Simmons [facility] CONTRAST [facility] RAPID INFLUENZA A/B 2022-12-14 22:46:00 Tricia Simmons [facility] COVID-19 (ID NOW RAPID 2022-12-14 22:46:[address] [facility] TESTING) [facility] Branch POCT TEST 2022-12-14 21:51:00 Tricia Simmons [facility] LIPASE 2022-12-14 21:44:00 Tricia Simmons [facility] MAGNESIUM 2022-12-14 21:44:00 Tricia Simmons Lluvia [facility] COMP. METABOLIC PANEL 2022-12-14 21:44:00 Tricia Simmons Lluvia [facility] ([id number]) [facility] CBC WITH DIFF 2022-12-14 21:44:00 Tricia Simmons [facility] URINALYSIS 2022-12-14 21:44:00 [facility] CONSENT/REFUSAL FOR 2022-12-14 20:43:36 Doctor Unassigned, No Un [facility] DIAGNOSIS AND TREATMENT Name [facility] POCT TEST 2022-10-19 15:07:00 Vasu Hutson [facility] LIPASE 2022-10-19 13:44:00 Vasu Hutson [facility] COMP. METABOLIC PANEL 2022-10-19 13:44:00 Vasu Hutson [facility] ([id number]) [facility] CBC WITH DIFF 2022-10-19 13:44:00 Vasu Hutson [facility] CONSENT/REFUSAL FOR 2022-10-19 13:14:52 Doctor Unassigned, [facility] Name [facility] URINE CULTURE 2022-07-22 19:12:00 [facility]OLIC 2022-07-22 17:33:00 Nash Schwab [facility] PANEL ESTIMATED GFR 2022-07-22 17:33:00 Nash Schwab [facility] CT RENAL STONE PROTOCOL 2022-07-22 17:13:55 ZaheerNash duong [facility] CBC WITH PLATELET AND 2022-07-22 16:33:00 ZaheerNash duong [facility] DIFFERENTIAL COMPREHENSIVE METABOLIC 2022-07-22 16:33:00 ZaheerNash duong [facility] PANEL ESTIMATED GFR 2022-07-22 16:33:00 ZaheerNash nicholas [facility] URINALYSIS SCREEN AND 2022-07-22 16:22:00 [facility], WITH REFLEX TO CULTURE US PELVIS COMPLETE WITH 2022-05-29 02:07:00 Lorena Simpson Un [facility] TRANSVAGINAL [facility] CT ABDOMEN PELVIS W 2022-05-29 00:28:13 Lorena Simpson [facility] CONTRAST [facility] COMP. METABOLIC PANEL 2022-05-29 00:07:00 Lorena Simpson [facility] ([id number]) [facility] CBC WITH DIFF 2022-05-29 00:07:00 Lorena Simpson [facility] URINALYSIS 2022-05-28 23:56:00 Lorena Simpson [facility] POCT TEST 2022-05-28 23:53:00 Lorena Simpson [facility] CONSENT/REFUSAL FOR 2022-05-28 23:40:29 Doctor Unassigned, No Un [facility] DIAGNOSIS AND TREATMENT Name [facility] Branch URINALYSIS 2022-03-26 13:06:00 RicardoAnia Ghosh [facility] HCG QUALITATIVE, URINE 2022-03-26 13:06:00 RicardoAnia Ghosh [facility] SCREEN URINALYSIS 2022-03-26 [facility] HCG QUALITATIVE, URINE 2022-03-26 13:06:00 RicardoAnia Ghosh [facility] SCREEN CBC WITH PLATELET AND 2022-03-26 12:46:[address] [facility] DIFFERENTIAL COMPREHENSIVE METABOLIC 2022-03-26 12:46:00 [facility] PANEL ESTIMATED GFR 2022-03-26 12:46:00 [facility] CBC WITH PLATELET AND 2022-03-26 12:46:[address] [facility] DIFFERENTIAL POCT TEST 2022-02-27 04:56:00 Afsaneh Car [facility] LIPASE 2022-02-27 04:04:00 Afsaneh Car [facility] TROPONIN I 2022-02-27 04:04:00 Afsaneh Car [facility] THYROID STIMULATING 2022-02-27 04:04:00 Afsaneh Car [facility] HORMONE [facility] COMP. METABOLIC PANEL 2022-02-27 04:04:[address] [facility] ([id number]) [facility] CBC WITH DIFF 2022-02-27 04:04:00 Afsaneh Car [facility] URINALYSIS 2022-02-27 03:56:00 Afsaneh Car [facility] URINE DRUG (IMMUNOASSAY) 2022-02-27 03:56:00 Afsaneh Car [facility] DRUG [facility] SCREEN W/O REFLEX NOTICE OF PRIVACY 2022-02-27 03:05:57 Doctor Unassigned, No [facility] PRACTICES Name [facility] CONSENT/REFUSAL FOR 2022-02-27 03:04:00 Doctor Unassigned, No Un [facility] DIAGNOSIS AND TREATMENT Name [facility] COMPREHENSIVE METABOLIC 2022-02-18 05:17:00 Carlos Hernandez [facility] PANEL ESTIMATED GFR 2022-02-18 05:17:00 Carlos Hernandez spital COMPREHENSIVE METABOLIC 2022-02-18 04:38:00 Carlos Hernandez [facility] PANEL ESTIMATED GFR 2022-02-18 04:38:00 Carlos Hernandez Ho spital CT ABDOMEN PELVIS WO 2022-02-18 04:17:35 Carlos Hernandez [facility] CONTRAST URINE CULTURE 2022-02-18 04:00:00 Carlos Hernandez spital CBC WITH PLATELET AND 2022-02-18 04:00:00 Carlos Hernandez [facility] DIFFERENTIAL COMPREHENSIVE METABOLIC 2022-02-18 04:00:00 Carlos Hernandez [facility] PANEL ESTIMATED GFR 2022-02-18 04:00:00 Carlos Hernandez spital HCG QUALITATIVE, URINE 2022-02-18 02:50:00 Carlos Hernandez [facility] SCREEN URINALYSIS 2022-02-18 02:50:00 Carlos Hernandez spital RAPID STREP SCREEN FOR 2020-12-31 07:13:00 Akiko Dunaway [facility] A [facility] NOTICE OF PRIVACY 2020-12-31 06:34:54 Doctor Unassigned, No [facility] PRACTICES Name [facility] CONSENT/REFUSAL FOR 2020-12-31 06:34:35 Doctor Unassigned, No [facility] DIAGNOSIS AND TREATMENT [facility] CT HEAD WO CONTRAST 2020-11-20 18:18:22 John Beckham [facility] POCT TEST 2020-11-20 17:50:00 John Beckham [facility] BASIC METABOLIC PANEL 2020-11-20 17:24:00 John Beckham [facility] (NA, K, CL, CO2, Medical Branch GLUCOSE, BUN, CREATININE, CA) CBC WITH DIFF 2020-11-20 17:24:00 John Beckham [facility] CONSENT/REFUSAL FOR 2020-11-20 16:36:59 Doctor Unassigned, No [facility] DIAGNOSIS AND TREATMENT [facility] POCT TEST 2020-09-27 02:56:00 Tricia Simmons [facility] ASSIGNMENT OF BENEFITS 2020-09-27 01:35:31 Doctor Unassigned, No [facility] CONSENT/REFUSAL FOR 2020-09-26 23:26:24 Doctor Unassigned, No [facility] [place] [facility]REAT[facility] Name [facility] URINALYSIS 2020-07-17 14:08:00 [place] [facility] POCT TEST 2020-07-17 14:08:00 [place] [facility] CBC WITH DIFF 2020-07-17 12:25:00 [place] [facility] NOTICE OF PRIVACY 2020-07-17 11:48:39 Doctor Unassigned, No [facility] [place] PRACTICES Name [facility] CONSENT/REFUSAL FOR 2020-07-17 11:44:41 Doctor Unassigned, No [facility] DIAGNOSIS AND TREATMENT [facility] Plan of Care Planned Activity Planned Date Details Comments Source Future Scheduled 2023-04-05 COVID-[address] [facility] Test 10:31:44 (#1) [code = COVID-19 VACCINE (#1)] Future Scheduled 2023-04-05 [facility] 10:31:44 screening (procedure) [code = 219004110] Future Scheduled 2023-04-05 [facility] 10:31:44 malignant neoplasm of cervix (procedure) [code = 083549558] Future Scheduled 2023-04-05 [facility] 10:31:44 (#1) [code = INFLUENZA VACCINE (#1)] Future Scheduled 2023-04-03 COVID-[address] [facility] 09:07:22 (#1) [code = COVID-19 VACCINE (#1)] Future Scheduled 2023-04-03 [facility] 09:07:22 screening (procedure) [code = 025643705] Future Scheduled 2023-04-03 [facility] 09:07:22 malignant neoplasm of cervix (procedure) [code = 138705161] Future Scheduled 2023-04-03 [facility] 09:07:22 (#1) [code = INFLUENZA VACCINE (#1)] Future Scheduled 2023-03-04 COVID-[address] [facility] Test 06:32:21 (#1) [code = COVID-19 VACCINE (#1)] Future Scheduled 2023-03-04 [facility] 06:32:21 screening (procedure) [code = 070330130] Future Scheduled 2023-03-04 [facility] 06:32:21 malignant neoplasm of cervix (procedure) [code = 152690144] Future Scheduled 2023-03-04 [facility] 06:32:21 (#1) [code = INFLUENZA VACCINE (#1)] Future Scheduled 2023-03-04 COVID-[address] [facility] Test 06:32:21 (#1) [code = COVID-19 VACCINE (#1)] Future Scheduled 2023-03-04 [facility] 06:32:21 screening (procedure) [code = 423038977] Future Scheduled 2023-03-04 [facility] 06:32:21 malignant neoplasm of cervix (procedure) [code = 394322625] Future Scheduled 2023-03-04 [facility] 06:32:21 (#1) [code = INFLUENZA VACCINE (#1)] Future Scheduled 2023-01-04 COVID-[address] [facility] Test 20:06:27 (#1) [code = COVID-19 VACCINE (#1)] Future Scheduled 2023-01-04 [facility] 20:06:27 screening (procedure) [code = 049984891] Future Scheduled 2023-01-04 [facility] 20:06:27 malignant neoplasm of cervix (procedure) [code = 023145840] Future Scheduled 2023-01-04 [facility] 20:06:27 [code = INFLUENZA VACCINE] Future Scheduled 2023-01-04 COVID-[address] [facility] Test 20:06:27 (#1) [code = COVID-19 VACCINE (#1)] Future Scheduled 2023-01-04 [facility] 20:06:27 screening (procedure) [code = 541875066] Future Scheduled 2023-01-04 [facility] 20:06:27 malignant neoplasm of cervix (procedure) [code = 432537442] Future Scheduled 2023-01-04 [facility] 20:06:27 [code = INFLUENZA VACCINE] Future Scheduled 2022-10-03 COVID-[address] [facility] Test 02:09:31 (#1) [code = COVID-19 VACCINE (#1)] Future Scheduled 2022-10-03 [facility] 02:09:31 screening (procedure) [code = 144560192] Future Scheduled 2022-10-03 [facility] 02:09:31 malignant neoplasm of cervix (procedure) [code = 674848443] Future Scheduled 2022-10-03 [facility] 02:09:31 [code = INFLUENZA VACCINE] Future Scheduled 2022-10-03 COVID-[address] [facility] Test 02:09:31 (#1) [code = COVID-19 VACCINE (#1)] Future Scheduled 2022-10-03 [facility] 02:09:31 screening (procedure) [code = 241538923] Future Scheduled 2022-10-03 [facility] 02:09:31 malignant neoplasm of cervix (procedure) [code = 554751649] Future Scheduled 2022-10-03 [facility] 02:09:31 [code = INFLUENZA VACCINE] Future Scheduled 2022-10-03 COVID-[address] [facility] Test 02:09:31 (#1) [code = COVID-19 VACCINE (#1)] Future Scheduled 2022-10-03 [facility] 02:09:31 screening (procedure) [code = 263535517] Future Scheduled 2022-10-03 [facility] 02:09:31 malignant neoplasm of cervix (procedure) [code = 488471149] Future Scheduled 2022-10-03 [facility] 02:09:31 [code = INFLUENZA VACCINE] Future Scheduled 2022-09-07 COVID-[address] [facility] Test 16:46:36 (#1) [code = COVID-19 VACCINE (#1)] Future Scheduled 2022-09-07 [facility] 16:46:36 screening (procedure) [code = 107408859] Future Scheduled 2022-09-07 [facility] 16:46:36 malignant neoplasm of cervix (procedure) [code = 304800245] Future Scheduled 2022-09-07 [facility] 16:46:36 [code = INFLUENZA VACCINE] Future Scheduled 2022-09-07 COVID-[address] [facility] Test 16:46:36 (#1) [code = COVID-19 VACCINE (#1)] Future Scheduled 2022-09-07 [facility] 16:46:36 screening (procedure) [code = 854185250] Future Scheduled 2022-09-07 [facility] 16:46:36 malignant neoplasm of cervix (procedure) [code = 885334349] Future Scheduled 2022-09-07 [facility] 16:46:36 [code = INFLUENZA VACCINE] Future Scheduled 2022-09-07 COVID-[address] [facility] Test 16:46:36 (#1) [code = COVID-19 VACCINE (#1)] Future Scheduled 2022-09-07 [facility] 16:46:36 screening (procedure) [code = 420743890] Future Scheduled 2022-09-07 [facility] 16:46:36 malignant neoplasm of cervix (procedure) [code = 300691752] Future Scheduled 2022-09-07 [facility] 16:46:36 [code = INFLUENZA VACCINE] Future Scheduled 2022-07-30 COVID-[address] [facility] Test 22:48:12 (#1) [code = COVID-19 VACCINE (#1)] Future Scheduled 2022-07-30 [facility] 22:48:12 screening (procedure) [code = 861456100] Future Scheduled 2022-07-30 [facility] 22:48:12 malignant neoplasm of cervix (procedure) [code = 304028014] Future Scheduled 2022-07-30 [facility] 22:48:12 [code = INFLUENZA VACCINE] Future Scheduled 2022-07-23 COVID-[address] [facility] Test 22:23:51 (#1) [code = COVID-19 VACCINE (#1)] Future Scheduled 2022-07-23 [facility] 22:23:51 screening (procedure) [code = 534575139] Future Scheduled 2022-07-23 [facility] 22:23:51 malignant neoplasm of cervix (procedure) [code = 189041154] Future Scheduled 2022-07-23 [facility] 22:23:51 [code = INFLUENZA VACCINE] Future Scheduled 2022-07-23 [facility] 14:05:40 (#1) [code = COVID-19 VACCINE (#1)] Future Scheduled 2022-07-23 [facility] 14:05:40 screening (procedure) [code = 796123965] Future Scheduled 2022-07-23 [facility] 14:05:40 malignant neoplasm of cervix (procedure) [code = 379208616] Future Scheduled 2022-07-23 [facility] 14:05:40 [code = INFLUENZA VACCINE] Future Scheduled 2022-07-16 [facility] 00:01:34 (#1) [code = COVID-19 VACCINE (#1)] Future Scheduled 2022-07-16 [facility] 00:01:34 screening (procedure) [code = 024821739] Future Scheduled 2022-07-16 [facility] 00:01:34 malignant neoplasm of cervix (procedure) [code = 682622444] Future Scheduled 2022-07-16 [facility] 00:01:34 [code = INFLUENZA VACCINE] Future Scheduled 2022-06-20 [facility] 00:27:46 (#1) [code = COVID-19 VACCINE (#1)] Future Scheduled 2022-06-20 [facility] 00:27:46 screening (procedure) [code = 764563116] Future Scheduled 2022-06-20 [facility] 00:27:46 malignant neoplasm of cervix (procedure) [code = 621089261] Future Scheduled 2022-06-20 [facility] 00:27:46 [code = INFLUENZA VACCINE] Future Scheduled 2022-06-12 [facility] 16:29:41 (#1) [code = COVID-19 VACCINE (#1)] Future Scheduled 2022-06-12 [facility] 16:29:41 screening (procedure) [code = 912619998] Future Scheduled 2022-06-12 [facility]ZA [facility]INE [facility] 16:29:41 [code = INFLUENZA VACCINE] Future Scheduled 2022-04-29 [facility] B [facility] 09:57:18 VACCINES (1 of 3 - 3-dose series) [code = HEPATITIS B VACCINES (1 of 3 - 3-dose series)] Future Scheduled 2022-04-29 COVID-19 [facility]ACCINE [facility] 09:57:18 (#1) [code = COVID-19 VACCINE (#1)] Future Scheduled 2022-04-29 [facility] 09:57:18 screening (procedure) [code = 578311273] Future Scheduled 2022-04-29 [facility] 09:57:18 malignant neoplasm of cervix (procedure) [code = 951083035] Future Scheduled 2022-04-29 INFLUENZA VACCINE Method [facility] Test 09:57:18 [code = INFLUENZA VACCINE] Future Scheduled 2022-03-26 [facility] 18:56:00 VACCINES (1 of 3 - 3-dose series) [code = HEPATITIS B VACCINES (1 of 3 - 3-dose series)] Future Scheduled 2022-03-26 [facility] 18:56:00 (#1) [code = COVID-19 VACCINE (#1)] Future Scheduled 2022-03-26 [facility] 18:56:00 screening (procedure) [code = 343044500] Future Scheduled 2022-03-26 [facility] 18:56:00 malignant neoplasm of cervix (procedure) [code = 960046881] Future Scheduled 2022-03-26 [facility]ZA VACCINE [facility] 18:56:00 [code = INFLUENZA VACCINE] Future Scheduled 2022-03-26 [facility] 18:56:00 VACCINES (1 of 3 - 3-dose series) [code = HEPATITIS B VACCINES (1 of 3 - 3-dose series)] Future Scheduled 2022-03-26 COVID-19 [facility]ACCINE [facility] Test 18:56:00 (#1) [code = COVID-19 VACCINE (#1)] Future Scheduled 2022-03-26 [facility] 18:56:00 screening (procedure) [code = 211953776] Future Scheduled 2022-03-26 [facility] 18:56:00 malignant neoplasm of cervix (procedure) [code = 238642961] Future Scheduled 2022-03-26 [facility] 18:56:00 [code = INFLUENZA VACCINE] Future Scheduled 2022-03-26 [facility] 18:56:00 VACCINES (1 of 3 - 3-dose series) [code = HEPATITIS B VACCINES (1 of 3 - 3-dose series)] Future Scheduled 2022-03-26 [facility] 18:56:00 (#1) [code = COVID-19 VACCINE (#1)] Future Scheduled 2022-03-26 [facility] 18:56:00 screening (procedure) [code = 868243575] Future Scheduled 2022-03-26 [facility] 18:56:00 malignant neoplasm of cervix (procedure) [code = 129015674] Future Scheduled 2022-03-26 [facility] 18:56:00 [code = INFLUENZA VACCINE] Future Scheduled 2022-03-26 [facility] 08:33:14 VACCINES (1 of 3 - 3-dose series) [code = HEPATITIS B VACCINES (1 of 3 - 3-dose series)] Future Scheduled 2022-03-26 [facility] 08:33:14 (#1) [code = COVID-19 VACCINE (#1)] Future Scheduled 2022-03-26 [facility] 08:33:14 screening (procedure) [code = 679706179] Future Scheduled 2022-03-26 [facility] 08:33:14 malignant neoplasm of cervix (procedure) [code = 788825907] Future Scheduled 2022-03-26 [facility] 08:33:14 [code = INFLUENZA VACCINE] Future Scheduled COVID-19 [facility]INE [facility] (1) [code = COVID-19 VACCINE (1)] Future Scheduled [facility] screening (procedure) [code = 180035155] Future Scheduled [facility] malignant neoplasm of cervix (procedure) [code = 689577388] Future Scheduled [facility] [code = INFLUENZA VACCINE] Encounters Start End Encounter Admission Attending Care Care Encounter Source Date/Time Date/Time Type Type Clinicians Facility Department ID 2023-01-04 Outpatient [facility] [id number] [place] 10:32:22 [id number] Health 2021-04-28 Emergency [facility] [id number] Univers 06:08:31 ity [facility] 2021-04-27 Emergency [facility] [id number] Univers 21:27:31 ity [facility] 2021-04-27 Emergency [facility] [id number] Univers 10:13:04 ity [facility] 2021-04-26 Emergency [facility] [id number] Univers 18:11:30 [facility] 2023-03-24 2023-03-24 Outpatient [facility]_ PRIV PRIV 145 [id number] [facility] 00:00:00 00:00:00 Tj [id number] [facility] 2023-03-24 2023-03-24 Outpatient [facility]_ PRIV PRIV 145 [id number] [facility] 00:00:00 00:00:00 Bruce_G [id number] [facility] 2023-03-17 2023-03-17 Outpatient [facility]_ PRIV PRIV 145 [id number] [facility] 00:00:00 00:00:00 Tj [id number] [facility] 2023-03-07 2023-03-08 Outpatient Yosi HOOKS [facility] STR [id number] Univers 14:14:00 20:00:00 RICKY khan [facility] 2023-03-07 2023-03-08 Emergency TROY Hooks 1.2.840.114 10 [id number] Univers 14:14:00 20:00:00 Ricky LAIRD 350.1.13.10 [facility] 4.2.7.2.686 Ryan as [id number] [place] [address] [address] 2023-03-07 2023-03-07 [facility] [id number] Univers 08:49:00 13:01:00 MICHAEL khan of [facility] 2023-03-07 2023-03-07 Emergency [place] 1.2.276.937 [id number] Univers 08:49:00 13:01:00 Michael Hurley GRISELDAINOCENCIA 350.1.13.10 i ty of [place] 4.2.7.2.686 [facility] [id number] [facility] [address] 2023-03-04 2023-03-04 Outpatient GC_[facility]_ PRIV PRIV 145 [id number] [facility] 00:00:00 00:00:00 Bruce_G [id number] [facility] 2023-03-03 2023-03-03 Outpatient GC_[facility]_ PRIV PRIV 145 [id number] [facility] 00:00:00 00:00:00 Bruce_G [id number] [facility] 2023-02-26 2023-02-26 Emergency Gokal, 1.2.840.1 [id number] 2099 [id number] [facility] 18:13:00 19:48:[address] [place] 3.430.2.7 Hospit a .3.384732 l .8 2023-02-26 2023-02-26 Emergency Gokal, 1.2.840.1 [id number] 2099 [id number] [facility] 18:13:00 19:48:[address] [place]ik 3.430.2.7 Hospit a .3.980264 l .8 2023-02-26 2023-02-26 Travel 1.2.840.1 1.2.214.266 3232 [id number] [facility] 00:00:00 00:00:[address] 3.430.2.7 0.2.7.3.698 Ho spita .3.090791 084.8 l .8 2023-02-26 2023-02-26 Travel 1.2.840.1 1.2.903.728 1570 [id number] [facility] 00:00:00 00:00:[address] 3.430.2.7 0.2.7.3.698 Ho spita .3.969768 084.8 l .8 2023-02-18 2023-02-18 Outpatient [facility]_ PRIV PRIV 145 [id number] [facility] 00:00:00 00:00:00 Tj [id number] [facility] 2023-02-18 2023-02-18 Outpatient [facility]_ PRIV PRIV 145 [id number] [facility] 00:00:00 00:00:00 Tj [id number] [facility] 2023-02-17 2023-02-17 Telephone [facility] 1.2.840.114 10 [id number] [facility] 00:00:00 00:00:00 Maicol Hurley OIL CHANGER 350.1.13.10 ity [facility] 4.2.7.2.686 Ryan as MATERNAL [phone] [facility] ical & CHILD [address] [place] [address] 2023-02-15 2023-02-15 Emergency [facility] [id number] Univers 18:06:00 19:32:00 [facility] 2023-02-15 2023-02-15 Emergency [facility] 1.2.542.130 [id number] Univers 18:06:00 19:32:00 [facility] 350.1.13.10 i ty [facility] 4.2.7.2.686 [facility] [id number] [address] 2023-02-15 2023-02-15 Outpatient [facility]_ PRIV PRIV 145 [id number] [facility] 00:00:00 00:00:00 [facility] [id number] [facility] 2023-02-14 2023-02-14 Emergency Ifrah, 1.2.840.1 [id number] [facility]i 19:44:00 22:11:[address] [facility] 3.430.2.7 Ho spita .3.068932 l .8 2023-02-14 2023-02-14 Emergency Ifrah, 1.2.840.1 [id number] Methodi 19:44:00 22:11:00 Skyler 49803.1.1 [address] 3.430.2.7 Ho spita .3.589070 l .8 2023-02-01 2023-02-01 Outpatient R TIM, [facility] [id number] [facility] 10:30:00 10:30:00 MAICOL ity o f [facility] 2023-01-29 2023-01-29 Outpatient _[facility]_ PRIV PRIV 145 [id number] [facility] 00:00:00 00:00:00 [facility] [id number] [facility] 2023-01-22 2023-01-22 [facility]phone [facility] 1.2.840.114 10 [id number] [facility] 00:00:00 00:00:00 Maicol C OIL CHANGER 350.1.13.10 ity of REGIONAL 4.2.7.2.686 Ryan as MATERNAL [id number] [facility] ical & CHILD [address] [place] [address] 2023-01-21 2023-01-21 Telephone [facility] 1.2.840.114 10 [id number] [facility] 00:00:00 00:00:00 Maicol C OIL CHANGER 350.1.13.10 ity of REGIONAL 4.2.7.2.686 Ryan as MATERNAL [phone] [facility] & [address] 2023-01-18 2023-01-18 [facility] [id number] Univers 08:30:00 10:14:57 MAICOL ity o f [facility] 2023-01-18 2023-01-18 Initial [facility] 1.2.083.850 [id number] Univers 08:30:00 10:14:57 Maicol C OIL CHANGER 350.1.13.10 ity of Visit REGIONAL 4.2.7.2.686 Ryan as MATERNAL [id number] [facility] & CHILD [address] [place] [address] 2023-01-18 2023-01-18 Orders Doctor TEE 1.2.840.114 [id number] Univers 00:00:00 00:00:00 Only Unassigned, EITAN 350.1.13.10 ity of [place] [facility] 4.2.7.2.686 Ryan as [id number] [facility] [address] 2022-12-26 2022-12-26 Outpatient _[facility]_ PRIV PRIV 145 [id number] [facility] 00:00:00 00:00:00 Bruce_Agnes [id number] [facility] 2022-12-14 2022-12-14 Emergency X TROY [facility] ERT [id number] Univers 15:55:00 23:49:00 ity of [facility] 2022-12-14 2022-12-14 [facility] 1.2.840.114 10 [id number] Univers 15:55:00 23:49:00 Lluvia PETR 350.1.13.10 i ty of [place]2.7.2.686 [place] [id number] [place] [address]64 [place] 2022-10-19 2022-10-19 Emergency X VASILIYFORMERLY [facility] ERT [id number] Univers 08:24:00 11:10:00 FOLUSHO ity of [facility] 2022-10-19 2022-10-19 Emergency [facility] 1.2.840.114 10 [id number] Univers 08:24:00 11:10:00 John HUMPHREYS 350.1.13.10 ity of [place] 4.2.7.2.686 [place] [id number] [place] 237764 [place] 2022-10-19 2022-10-19 Patient Doctor RANDAL 1.2.840.114 [id number] Univers 00:00:00 00:00:00 Secure Msg Unassigned, EITAN 350.1.13.10 ity of [place] [facility] 4.2.7.2.686 Ryan as [id number] [facility] [address] 2022-07-22 2022-07-22 Emergency Zaheer, 1.2.840.1 [id number] [facility] 10:01:00 13:05:00 Nash Conteh 37130.1.1 054 s t 3.430.2.7 Hospit a .3.296432 l .8 2022-07-22 2022-07-22 Emergency Zaheer, 1.2.840.1 [id number] 749 [id number] [facility] 10:01:00 13:05:00 Nash Conteh 88014.1.1 054 s t 3.430.2.7 Hospit a .3.935199 l .8 2022-07-22 2022-07-22 Travel 1.2.840.1 1.2.773.741 6562 [id number] [facility] 00:00:00 00:00:[address] 3.430.2.7 0.2.7.3.698 Ho spita .3.626671 084.8 l .8 2022-07-22 2022-07-22 Travel 1.2.840.1 1.2.638.227 5248 [id number] [facility] 00:00:00 00:00:[address] 3.430.2.7 0.2.7.3.698 Ho spita .3.981248 084.8 l .8 2022-05-28 2022-05-28 Emergency X HERI [facility] ERT [id number] Univers 17:47:00 22:35:00 MENDY khan [facility] 2022-05-28 2022-05-28 Emergency Lorena Simpson [facility] 1.2.840.114 [id number] [facility] 17:47:00 22:35:00 Mendy Liriano 350.1.13.10 [facility] 4.2.7.2.686 [facility] [id number] [address] 2022-03-26 2022-03-26 Emergency Sammy 1.2.840.1 [id number] [facility] 07:24:00 08:46:[address]ia [address]145.1.[address] 3.430.2.7 Hospit a .3.312011 l .8 2022-03-26 2022-03-26 Travel 1.2.840.1 1.2.086.454 0758 [id number] [facility] 00:00:00 00:00:[address] 3.430.2.7 0.2.7.3.698 Ho spita .3.357347 084.8 l .8 2022-02-26 2022-02-27 Emergency X [facility], [facility] ERT [id number] [facility] 22:26:00 00:44:00 AFSANEH itnirali [facility] 2022-02-26 2022-02-27 Emergency [facility] 1.2.351.965 [id number] [facility] 22:26:00 00:44:00 Afsaneh HUMPHREYS 350.1.13.10 ity [facility] 4.2.7.2.686 [facility] [id number] [address] 2022-02-17 2022-02-18 Emergency Nuszen, 1.2.840.1 [id number] 2099 [id number] [facility] 21:45:00 01:49:[address] A[address]194.1.[address] 3.430.2.7 Hospit a .3.913188 l .8 2022-02-17 2022-02-17 Travel 1.2.840.1 1.2.240.540 9350 222116 [facility] 00:00:00 00:00:[address] 3.430.2.7 0.2.7.3.698 Ho spita .3.588617 084.8 l .8 2020-12-31 2020-12-31 Emergency [place], [facility] 1.2.840.114 [id number] 02:02:00 03:26:00 Akiko Humphreys 350.1.13.10 [place] 4.2.7.2.686 [place] [id number] 084 2020-12-31 2020-12-31 Emergency [place], [facility] 1.2.840.114 [id number] [facility] 02:02:00 03:26:00 Akiko Humphreys 350.1.13.10 i ty of [place] 4.2.7.2.686 [facility] [id number] [address] 2020-11-20 2020-11-20 Emergency [place] [facility] [id number] 11:47:00 15:01:00 John Humphreys [id number] [place] [id number] [place] [id number] [facility] 2020-11-20 2020-11-20 [facility] [id number] [facility] 11:47:00 15:01:00 John Humphreys [id number] i ty of [place] [id number] [facility] [id number] [address] 2020-09-26 2020-09-26 Emergency Tricia Simmons [facility] [id number] 18:51:00 22:39:00 Lluvia Petr [id number] [place] [id number] [place] [phone] [facility] 2020-09-26 2020-09-26 Emergency Tricia Simmons [facility] [id number] [facility] 18:51:00 22:39:00 Lluvia [place] [id number] i ty of [place] 4.2.7.2.686 [facility] [id number] [address] 2020-08-06 2020-08-06 Emergency Kami BECKHAM [facility] ERT [id number] 88 [facility] 10:13:00 12:49:00 JOHN ity of [facility] 2020-08-01 2020-08-03 [facility] [id number] 24 [facility] 09:14:00 03:39:32 [facility] 2020-07-17 2020-07-17 Emergency Wild Cowart [facility] 1.2.840 .114 [id number] 05:53:00 08:59:00 Dani Kauffman 350.1.13.10 [place] 4.2.7.2.686 [place] [phone] 084 2020-07-17 2020-07-17 Emergency Wild Cowart [facility] 1.2.840 .114 [id number] [facility] 05:53:00 08:59:00 KauffmanDani de la cruz 350.1.13.10 it chance [place] 4.2.7.2.686 [facility] [id number] [facility] 084 Branch Results Test Description Test Time Test Comments Results Result Comments Source Influenza virus A and B and 2023-02-26 19:13:47 Test Item Value Reference Range Interpretation Comme nts SARS-CoV-2 (COVID-19) RNA [Presence] in Respiratory specimen by Not detected ROSCOE with probe detection (test code = 39438-3) Whether patient resides in a congregate care setting (test code = N o 58580-1) Date and time of symptom onset (test code = 10736-1) Unknown Whether the patient was hospitalized for condition of interest No (test code = 88166-8) Whether the patient was admitted to intensive care unit (ICU) for N o condition of interest (test code = 29374-5) Whether patient is employed in a healthcare setting (test code = No 55408-3) Whether the patient has symptoms related to condition of interest N o (test code = 26502-4) status (test code = 41635-4) No [facility] W/O SPECIFIC [id number] 13:48:00 Test Item Value Reference Range Interpretation Comments POCT PH U (test code = 3254) 5 mg/dl 5-8 POCT U LEUK EST (test code = trace Negative - Negative 3263) POCT U NIT (test code = 3262) neg Negative - Negative POCT U PROT (test code = 3259) trace Negative - Negative POCT U GLU (test code = 3256) neg Negative - Negative POCT U KETONE (test code = 3258) neg Negative - Negative POCT U BLD (test code = 3257) 50 Negative - Negative [facility] BranchPO[facility] [id number] 13:47:00 Test Item Value Reference Range Interpretation Comments POCT PREG (test code = 1605) Positive On board controls acceptable with C Yes Line (test code = 3574) POCT PREG LOT # (test code = 3575) POCT PREG TEST DATE (test code = 3576) [id number] 03:05:08 Test Item Value Reference Interpretation Comments Range D-DIMER (test code = See_Comment [Autom ated 9583876487) message] The system which generated this result transmitted reference range : <0.41 ?g/mL (FEU). The reference range was not used to interpret this result as normal/abnormal . TOBI (test code = This test may be TOBI) used in conjunction with a clinical pretest [...] diagnosis. Lab Interpretation Normal (test code = 32270-5) [facility] Worth[facility]2023-06-19 22:22:54 Test Item Value Reference Range Interpretation Comments MAGNESIUM (test code = 3312016112) 1.8 mg/dL 1.7-2.4 Lab Interpretation (test code = Normal 02232-4) [facility] Worth[facility]. METABOLIC PANEL (71877)2022-12-14 22:22:34 Test Item Value Reference Range Interpretation Comments NA (test code = 133 mmol/L 135-145 L 9512757237) K (test code = 4.6 mmol/L 3.5-5.0 0137569752) CL (test code = 101 mmol/L 98-108 0385341152) CO2 TOTAL (test code = 25 mmol/L 23-31 0828720345) AGAP (test code = 7 2-16 2424879431) BUN (test code = 9 mg/dL 7-23 4517493616) GLUCOSE (test code = 99 mg/dL 70-110 2156115270) CREATININE (test code = 0.61 mg/dL 0.50-1.04 2926345304) TOTAL BILI (test code = 1.2 mg/dL 0.1-1.1 H 5176205471) CALCIUM (test code = 9.2 mg/dL 8.6-10.6 6665478911) T PROTEIN (test code = 7.3 g/dL 6.3-8.2 1371914325) ALBUMIN (test code = 4.2 g/dL 3.5-5.0 3484817778) ALK PHOS (test code = 59 U/L 34-122 3661095655) ALTv (test code = 21 U/L 5-35 1742-6) AST(SGOT) (test code = 15 U/L 13-40 6182983366) eGFR (test code = 116.8 mL/min/1.73m2 2158415360) TOBI (test code = TOBI) Association of [...] tests). Lab Interpretation Abnormal (test code = 32704-8) [facility] Worth[facility]2023-06-19 22:22:14 Test Item Value Reference Range Interpretation Comments LIPASE (test code = 4050789241) 51 U/L 0-220 Lab Interpretation (test code = Normal 06125-5) [facility] WorthCBC WITH [id number] 22:13:57 Test Item Value Reference Range Interpretation Comments WBC (test code = 14.83 See_Comment H [Automated 8690-2) message] The system which generated this result transmit jd reference range : 4.30 - 11.10 10*3/?L. The reference range was not used to interpret this result as normal/abnormal . RBC (test code = 4.49 See_Comment [Automated 559-8) message] The system which generated this result [...] RDW-SD (test code = 44.9 fL 39.0-49.9 42508-6) RDW-CV (test code = 13.4 % 12.0-15.5 788-0) PLT (test code = 337 See_Comment [Automated 777-3) message] The system which generated this result transmit jd reference range : 166 - 358 10*3/ ?L. The reference range was not u sed to interpret th is result as normal/abnormal . MPV (test code = 10.2 fL 9.5-12.9 75307-0) NRBC/100 WBC (test 0.0 See_Comment [Automat ed code = 0788521336) message] The system which generated this result transmit jd reference range : 0.0 - 10.0 /100 WBCs. The reference range was not used to interpret this result as normal/abnormal . NRBC x10^3 (test code See_Comment [Auto mated = 3898603370) message] The system which generated this result transmit jd reference range : 10*3/?L. The reference range was not used to interpret this result as normal/abnormal . GRAN MAT (NEUT) % 89.1 % (test code = 770-8) IMM GRAN % (test code 0.50 % = 9065630493) LYMPH % (test code = 5.9 % 736-9) MONO % (test code = 3.8 % 5905-5) EOS % (test code = 0.5 % 713-8) BASO % (test code = 0.2 % 706-2) GRAN MAT x10^3(ANC) 13.21 10*3/uL 1.88-7.09 H (test code = 6306720924) IMM GRAN x10^3 (test 0.08 10*3/uL 0.00-0.06 H code = 5604641035) LYMPH x10^3 (test code 0.87 10*3/uL 1.32-3.29 L = 731-0) MONO x10^3 (test code 0.57 10*3/uL 0.33-0.92 = 742-7) EOS x10^3 (test code = 0.07 10*3/uL 0.03-0.39 711-2) BASO x10^3 (test code 0.03 10*3/uL 0.01-0.07 = 704-7) Lab Interpretation Abnormal (test code = 27743-9) [facility] [id number] 21:51:00 Test Item Value Reference Range Interpretation Comments POCT PREG (test code = 1605) Negative On board controls acceptable with Yes C Line (test code = 3574) POCT PREG LOT # (test code = 288145 1453) POCT PREG TEST DATE (test -2023 code = 3576) Lab Interpretation (test code = Normal 62335-1) [facility] [id number] 15:07:00 Test Item Value Reference Range Interpretation Comments POCT PREG (test code = 1605) negative On board controls acceptable with present C Line (test code = 3574) POCT PREG LOT # (test code = 8768) [id number] POCT PREG TEST DATE (test 02/03/2024 code = 3576) Lab Interpretation (test code = Normal 91128-0) [facility]. METABOLIC PANEL (63302)2022-05-29 00:30:52 Test Item Value Reference Range Interpretation Comments NA (test code = 137 mmol/L 135-145 1733333846) K (test code = 3.9 mmol/L 3.5-5.0 3647127665) CL (test code = 107 mmol/L 98-108 0860006503) CO2 TOTAL (test code = 21 mmol/L 23-31 L 0910118649) AGAP (test code = 2-16 1777885020) BUN (test code = 9 mg/dL 7-23 6730446612) GLUCOSE (test code = 106 mg/dL 70-110 9029792751) CREATININE (test code = 0.81 mg/dL 0.50-1.04 8751395574) TOTAL BILI (test code = 0.4 mg/dL 0.1-1.3 2622376861) CALCIUM (test code = 8.7 mg/dL 8.6-10.6 3860543400) T PROTEIN (test code = 6.8 g/dL 6.3-8.2 8587415561) ALBUMIN (test code = 4.2 g/dL 3.5-5.0 7283197922) ALK PHOS (test code = 40 U/L 34-122 5069015210) ALTv (test code = 19 U/L 5-35 1742-6) AST(SGOT) (test code = 15 U/L 13-40 6116671099) eGFR (test code = mL/min/1.73m2 9065443593) TOBI (test code = TOBI) Association of [...] tests). Lab Interpretation Abnormal (test code = 90870-0) [facility] WITH [id number] 00:15:52 Test Item Value Reference Range Interpretation Comments WBC (test code = See_Comment [Automated message] 6690-2) The system [employer] generated this result transmitted ref erence range: 4.30 - 1 1.10 10*3/?L. The re ference range was not u sed to interpret this result as normal/abnor mal. RBC (test code = See_Comment [Automated message] 789-8) The system [employer] generated this result transmitted ref erence range: [...] RDW-SD (test code 42.8 fL 39.0-49.9 = 68719-0) RDW-CV (test code 13.1 % 12.0-15.5 = 788-0) PLT (test code = See_Comment [Automated message] 777-3) The system whic h generated this result transmitted ref erence range: 166 - 35 8 10*3/?L. The re ference range was not u sed to interpret this result as normal/abnor mal. MPV (test code = 9.5 fL 9.5-12.9 62878-9) NRBC/100 WBC (test See_Comment [Automat ed message] code = 8907403028) The syste m which generated this result transmitted ref erence range: 0.0 - 10 .0 /100 WBCs. The refer ence range was not u sed to interpret this result as normal/abnor mal. NRBC x10^3 (test See_Comment [Automated message] code = 7307474045) The syste m which generated this result transmitted ref erence range: 10*3/?L. The reference range was not used to interpr et this result as normal/abnormal . GRAN MAT (NEUT) % 59.3 % (test code = 770-8) IMM GRAN % (test 0.10 % code = 1815337426) LYMPH % (test code 29.5 % = 736-9) MONO % (test code 7.1 % = 5905-5) EOS % (test code = 3.1 % 713-8) BASO % (test code 0.9 % = 706-2) GRAN MAT 4.17 10*3/uL 1.88-7.09 x10^3(ANC) (test code = 0580342845) IMM GRAN x10^3 0.00-0.06 (test code = 2143591008) LYMPH x10^3 (test 2.08 10*3/uL 1.32-3.29 code = 731-0) MONO x10^3 (test 0.50 10*3/uL 0.33-0.92 code = 742-7) EOS x10^3 (test 0.22 10*3/uL 0.03-0.39 code = 711-2) BASO x10^3 (test 0.06 10*3/uL 0.01-0.07 code = 704-7) [facility] WorthPOOR [id number] 23:53:00 Test Item Value Reference Range Interpretation Comments POCT PREG (test code = 1605) negative On board controls acceptable with present C Line (test code = 3574) POCT PREG LOT # (test code = 3575) [id number] POCT PREG TEST DATE (test 09/26/2023 code = 3576) Lab Interpretation (test code = Normal 29882-1) [facility] WorthTHYROID STIMULATING [id number] 05:23:28 Test Item Value Reference Range Interpretation Comments TSH (test code = See_Comment [Automated message] 4964807436) The system [employer] generated this result transmitted ref erence range: 0.45 - 4 .70 mIU/L. The refe rence range was not u sed to interpret this result as normal/abnor mal. Lab Interpretation (test Normal code = 84667-9) [facility] WorthTROPONIN [id number] 05:05:05 Test Item Value Reference Interpretation Comments Range TROPONIN I (test 0.006 ng/mL See_Comment [Automated code = 3676510174) message] The system which generated this result [...] biotin. Lab Interpretation Normal (test code = 50891-0) [facility] [id number] 04:56:00 Test Item Value Reference Range Interpretation Comments POCT PREG (test code = 1605) negative Lab Interpretation (test code = Normal 91158-1) [facility] Worth[facility]. METABOLIC PANEL (27792)2022-02-27 04:46:44 Test Item Value Reference Range Interpretation Comments NA (test code = 137 mmol/L 135-145 6423772568) K (test code = 3.7 mmol/L 3.5-5 6069824341) CL (test code = 102 mmol/L 98-108 7866142241) CO2 TOTAL (test code 26 mmol/L 23-31 = 5183247597) AGAP (test code = 2-16 7029799369) BUN (test code = 8 mg/dL 7-23 5430527293) GLUCOSE (test code = 96 mg/dL 70-110 1591437906) CREATININE (test code 0.77 mg/dL 0.5-1.04 = 5732869034) TOTAL BILI (test code 0.4 mg/dL 0.1-1.1 = 7640510632) CALCIUM (test code = 9.2 mg/dL 8.6-10.6 1635029844) T PROTEIN (test code 7.2 g/dL 6.3-8.2 = 8412355763) ALBUMIN (test code = 4.5 g/dL 3.5-5 6819721883) ALK PHOS (test code = 58 U/L 34-122 3299403882) ALTv (test code = 30 U/L 5-35 1742-6) AST(SGOT) (test code 17 U/L 13-40 = 5015020032) eGFR (test code = mL/min/1.73m2 6638942799) TOBI (test code = TOBI) Association of [...] or abnormalities in imaging tests). [facility] Worth[facility]ASE2022-09-02 04:46:44 Test Item Value Reference Range Interpretation Comments LIPASE (test code = 2526714586) 91 U/L 0-220 Lab Interpretation (test code = Normal 10354-7) [facility] WITH [id number] 04:33:23 Test Item Value Reference Range Interpretation Comments WBC (test code = See_Comment [Automated 9977-2) message] The sy stem which generated this result transmitted reference range : 4.30 - 11.10 10*3/?L. The reference range was not used to interpret this result as normal/abnormal . RBC (test code = See_Comment [Automated 583-8) message] The sy stem which generated this [...] RDW-SD (test code = 41.0 fL 39-49.9 09429-6) RDW-CV (test code = 13.1 % 12-15.5 788-0) PLT (test code = See_Comment H [Automated 777-3) message] The sy stem which generated this result transmitted reference range : 166 - 358 10*3/ ?L. The reference r shira was not used to interpret this result as normal/abnormal . MPV (test code = 10.1 fL 9.5-12.9 03722-1) NRBC/100 WBC (test See_Comment [Automat ed code = 7927458204) message] The system which generated this result transmitted reference range : 0.0 - 10.0 /100 WBCs. The refer ence range was not u sed to interpret th is result as normal/abnormal . NRBC x10^3 (test code See_Comment [Auto mated = 2736650532) message] The s ystem which generated this result transmitted reference range : 10*3/?L. The reference range was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
[2023-04-05] MEDS ORDERED: ONDANSETRON 4 MG/2 ML VIAL ONE (11:04)
[2023-04-05] MEDS ORDERED: ALBUTEROL 2.5 MG/3 ML NEB SOL ONE (11:04)
[2023-04-05] MEDS ORDERED: MORPHINE 4 MG/ML SYR ONE (11:04)
[2023-04-05] MEDS ORDERED: NA CHLORIDE 0.9% 1,000 ML ONE (11:04)
[2023-04-05 11:09] LABS: Absolute Lymphocytes (CBC) 2.3 K/uL (0.7-4.9); Hematocrit 37.2 % (36.0-45.0); Lymphocytes % 25.2 % (15.3-44.8); MCV 89.1 fL (80-100); MPV 7.6 fL (7.6-11.3); Platelets 340 thou/uL (152-406); RBC Red Blood Cell Count 4.18 M/uL (3.86-4.86)
[2023-04-05 11:18] LABS: Potassium 3.6 mEq/L (3.5-5.1)
--- NOTE | 2023-04-05 12:04 | RAD REPORT ---
EXAM DESCRIPTION: RAD - Chest Single View - 04/05/2023 11:56 am CLINICAL HISTORY: Chest pain;Cough Chest pain. COMPARISON: Chest Pa And Lat (2 Views) dated 10/12/2022; Chest Pa And Lat (2 Views) dated 09/14/2022; Chest Pa And Lat (2 Views) dated 09/09/2022; Chest Single View dated 08/15/2021 FINDINGS: Portable technique limits examination quality. The lungs are grossly clear. The heart is upper limit of normal in size. No displaced fractures. IMPRESSION: No acute intrathoracic process suspected.
--- NOTE | 2023-04-05 12:09 | ER ---
Nurse's Notes [facility] Name: Carla Duncan Age: 27 yrs Sex: Female : 1995 Arrival Date: 04/05/2023 Time: 10:29 Bed 5 Private MD: Diagnosis: Atypical pneumonia;Acute bronchitis, unspecified Presentation: 04/05 10:45 Method Of Arrival: Ambulatory kc6 10:45 Chief complaint: Patient states: cough with nausea and vomiting that has blood. pt was kc6 here a couple days ago. Coronavirus screen: At this time, the client does not indicate any symptoms associated with coronavirus-19. Ebola Screen: No symptoms or risks identified at this time. Initial Sepsis Screen: Does the patient meet any 2 criteria? No. Patient's initial sepsis screen is negative. Does the patient have a suspected source of infection? No. Patient's initial sepsis screen is negative. Risk Assessment: Do you want to hurt yourself or someone else? Patient reports no desire to harm self or others. Onset of symptoms was April 05, 2023. 10:45 Acuity: VENKATESH 4 kc6 BED AND BREAKFAST COOK: 10:45 Verified kc6 Historical: - Allergies: 10:45 Amoxicillin; kc6 10:45 Naproxen; kc6 10:45 Stadol; kc6 10:45 Tylenol-Codeine #3; kc6 - PMHx: 10:45 adhd; Anxiety; Asthma; Hypertensive disorder; kc6 - PSHx: 10:45 section; kc6 - Immunization history:: Adult Immunizations up to date. - Social history:: Smoking status: Patient denies any tobacco usage or history of. Screenin:45 [facility] ED Fall Risk Assessment (Adult) History of falling in the last 3 months, kc6 including since admission No falls in past 3 months (0 pts) Confusion or Disorientation No (0 pts) Intoxicated or Sedated No (0 pts) Impaired Gait No (0 pts) Mobility Assist Device Used No (0 pt) Altered Elimination No (0 pt) Score/Fall Risk Level 0 - 2 = Low Risk. Abuse screen: Denies threats or abuse. Denies injuries from another. Nutritional screening: No deficits noted. Tuberculosis screening: No symptoms or risk factors identified. Assessment: 10:45 General: Appears in no apparent distress. comfortable, Behavior is calm, cooperative, kc6 appropriate for age. Pain: Complains of pain in abdomen, head. Neuro: Level of Consciousness is awake, alert, obeys commands, Oriented to person, place, time, situation, Appropriate for age. Cardiovascular: Reports chest pain, Heart tones S1 S2 present Capillary refill < 3 seconds. Respiratory: Reports cough that is Airway is patent Trachea midline Respiratory effort is even, unlabored, Respiratory pattern is regular, symmetrical. GI: Abdomen is round non-distended, Bowel sounds present X 4 quads. Abd is non tender X 4 quads Reports nausea, vomiting, Patient currently denies diarrhea. : No signs and/or symptoms were reported regarding the genitourinary system. EENT: No signs and/or symptoms were reported regarding the EENT system. Derm: No signs and/or symptoms reported regarding the dermatologic system. Skin is intact, is healthy with good turgor, Skin is pink, warm \T\ dry. Musculoskeletal: No signs and/or symptoms reported regarding the musculoskeletal system. Circulation, motion, and sensation intact. Capillary refill < 3 seconds, Range of motion: intact in all extremities. 11:45 Reassessment: Patient appears in no apparent distress at this time. No changes from kc6 previously documented assessment. Patient and/or family updated on plan of care and expected duration. Pain level reassessed. Patient is alert, oriented x 3, equal unlabored respirations, skin warm/dry/pink. Vital Signs: 10:45 BP 113 / 61; Pulse 99; Resp 18 S; Pulse Ox 100% on R/A; kc6 12:25 BP 101 / 65; Pulse 89; Resp 16 S; Pulse Ox 99% on R/A; kc6 ED Course: 10:32 Patient arrived in ED. im 10:32 Demetrice Jay FNP is PHCP. 7 10:32 Roosevelt Brown MD is Attending Physician. [facility] 10:45 Patient has correct armband on for positive identification. Bed in low position. Call [facility] light in reach. Side rails up X 1. Client placed on continuous cardiac and pulse oximetry monitoring. NIBP monitoring applied. 10:45 Arm band placed on. [facility] 10:47 Misti Oliveira, JUDI is Primary Nurse. [facility] 11:09 Triage completed. [facility] 11:57 XRAY Chest (1 view) In Process Unspecified. EDMS 12:25 No provider procedures requiring assistance completed. IV discontinued, intact, kc6 bleeding controlled, No redness/swelling at site. Pressure dressing applied. Administered Medications: 11:03 Drug: Albuterol Inhalation 2.5 mg Inhalation once Route: Inhalation; kc6 11:26 Follow up: Response: No adverse reaction 6 11:03 Drug: morphine IVP or IV 4 mg IVP once over 4 mins Route: IVP; Infused Over: 4 mins; kc6 Site: left antecubital; 12:24 Follow up: Response: No adverse reaction; Pain is decreased; RASS: Alert and Calm (0) 6 11:03 Drug: Ondansetron IVP 4 mg IVP once; over 2 minutes Route: IVP; Site: left antecubital; kc6 12:24 Follow up: Response: No adverse reaction; Nausea is decreased 6 11:03 Drug: NS 0.9% IV 1000 ml IV at 1 bolus Per protocol; 1000 mL bolus Route: IV; Rate: 1 kc6 bolus; Site: left antecubital; 12:24 Follow up: Response: No adverse reaction; IV Status: Completed infusion; IV Intake: kc6 1000ml Medication: 12:26 VIS not applicable for this client. kc6 Intake: 12:24 IV: 1000ml; Total: 1000ml. kc6 Outcome: 12:08 Discharge ordered by . mariya 12:25 Discharged to home ambulatory, kc6 12:25 Condition: improved 12:25 Discharge instructions given to patient, Instructed on discharge instructions, follow up and referral plans. medication usage, Demonstrated understanding of instructions, follow-up care, medications, Prescriptions given X 2, 12:26 Patient left the ED. kc6 Signatures: Dispatcher [employer] EDMS Demetrice Jay FNP CHILD THERAPIST Misti Concepcion RN RN kc6 Kymberly Alvarez
--- NOTE | 2023-04-05 12:09 | EDPHYS ---
Physician Documentation [facility] Name: Carla Duncan Age: 27 yrs Sex: Female : 1995 Arrival Date: 04/05/2023 Time: 10:29 Bed 5 Private MD: ED Physician Roosevelt Brown HPI: 04/05 10:32 This 27 yrs old Female presents to ER via Unassigned with complaints of Cough jh7 - blood. 10:32 The patient or guardian reports cough, that is constant. Onset: The symptoms/episode jh7 began/occurred 5 day(s) ago. Associated signs and symptoms: Pertinent positives: chest pain, with cough, nausea, sore throat, Pertinent negatives: fever, vomiting. Patient seen over the weekend and tested negative for COVID, flu, and strep. She reports that she is still coughing, has a worsening headache, and throat is still sore. Also states that this morning she started coughing up blood.. 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 - Social history:: Smoking status: Patient denies any tobacco usage or history of. ROS: 10:32 Constitutional: Negative for fever, chills, and weight loss, Eyes: Negative for injury, jh7 pain, redness, and discharge, Neck: Negative for injury, pain, and swelling, Abdomen/GI: Negative for abdominal pain, nausea, vomiting, diarrhea, and constipation, Back: Negative for injury and pain, MS/Extremity: Negative for injury and deformity, Skin: Negative for injury, rash, and discoloration, Neuro: Negative for headache, weakness, numbness, tingling, and seizure, 10:32 ENT: Positive for sore throat, 10:32 Cardiovascular: Positive for chest pain, with cough, 10:32 Respiratory: Positive for cough, with white sputum, hemoptysis, Negative for shortness of breath, wheezing, 10:32 All other systems are negative, Exam: 10:32 Constitutional: This is a well developed, well nourished patient who is awake, alert, jh7 and in no acute distress. Head/Face: Normocephalic, atraumatic. Neck: Trachea midline, no thyromegaly or masses palpated, and no cervical lymphadenopathy. Supple, full range of motion without nuchal rigidity, or vertebral point tenderness. No Meningismus. Cardiovascular: Regular rate and rhythm with a normal S1 and S2. No gallops, murmurs, or rubs. Normal PMI, no JVD. No pulse deficits. Abdomen/GI: Soft, non-tender, with normal bowel sounds. No distension or tympany. No guarding or rebound. No evidence of tenderness throughout. Back: No spinal tenderness. No costovertebral tenderness. Full range of motion. Skin: Warm, dry with normal turgor. Normal color with no rashes, no lesions, and no evidence of cellulitis. MS/ Extremity: Pulses equal, no cyanosis. Neurovascular intact. Full, normal range of motion. Neuro: Awake and alert, GCS 15, oriented to person, place, time, and situation. Normal gait. 10:32 Respiratory: the patient does not display signs of respiratory distress, Respirations: normal, Breath sounds: are clear throughout, Vital Signs: 10:45 BP 113 / 61; Pulse 99; Resp 18 S; Pulse Ox 100% on R/A; kc6 12:25 BP 101 / 65; Pulse 89; Resp 16 S; Pulse Ox 99% on R/A; kc6 MDM: 10:32 Patient medically screened. [facility] 12:06 Differential Diagnosis: Bronchitis Upper Respiratory Infection Asthma Exacerbation 7 Pneumonia. Data reviewed: vital signs, nurses notes, lab test result(s), radiologic studies, plain films. I considered the following discharge prescriptions or medication management in the emergency department Medications were administered in the Emergency Department. See MAR. Care significantly affected by the following chronic conditions: Hypertension. Scoring Tools PERC Rule for PE Age >/= 50 No HR >/= 100 No O2 Sat Room Air < 95% No Unilateral leg swelling No Hemoptysis Yes Recent surgery or trauma </= 4 wks ago requiring treatment with general anesthesia No (0 pt) Prior PE or DVT No Hormone use (Oral contraceptives, hormone replacement or estrogenic hormones use in males or female patients No. Counseling: I had a detailed discussion with the patient and/or guardian regarding the historical points, exam findings, and any diagnostic results supporting the discharge/admit diagnosis, the need for outpatient follow up, an OB/Gyne specialist, to return to the emergency department if symptoms worsen or persist or if there are any questions or concerns that arise at home. ED course: Patient reported that she was coughing up small amounts of blood when she coughed really hard. Discussed risk and benefits of a CTA in and the patient agreed that it was not appropriate at this time. Her vital signs remained stable there is no observed dyspnea and no increased work of breathing. No coughing observed nor hemoptysis throughout the patient's ER visit. Patient remained calm and hemodynamically stable throughout the entire ER visit. Advised her to follow-up with her LEAK DETECTION ENGINEER for further care if she developed any new concerning symptoms, she may return to the ER for further eval.. 04/05 10:47 Order name: CBC with Diff; Complete Time: 11:19 [facility] 04/05 10:47 Order name: BMP; Complete Time: 11:19 [facility] 04/05 10:47 Order name: XRAY Chest (1 view); Complete Time: 12:04 [facility] Administered Medications: 11:03 Drug: Albuterol Inhalation 2.5 mg Inhalation once Route: Inhalation; kc6 11:26 Follow up: Response: No adverse reaction kc6 11:03 Drug: morphine IVP or IV 4 mg IVP once over 4 mins Route: IVP; Infused Over: 4 mins; kc6 Site: left antecubital; 12:24 Follow up: Response: No adverse reaction; Pain is decreased; RASS: Alert and Calm (0) kc6 11:03 Drug: Ondansetron IVP 4 mg IVP once; over 2 minutes Route: IVP; Site: left antecubital; kc6 12:24 Follow up: Response: No adverse reaction; Nausea is decreased kc6 11:03 Drug: NS 0.9% IV 1000 ml IV at 1 bolus Per protocol; 1000 mL bolus Route: IV; Rate: 1 kc6 bolus; Site: left antecubital; 12:24 Follow up: Response: No adverse reaction; IV Status: Completed infusion; IV Intake: kc6 1000ml Disposition: 12:54 Co-signature as Attending Physician, Roosevelt Brown MD I reviewed the patient's care rt provided by the Advanced Practice Provider and agree with the diagnosis and treatment plan. Disposition Summary: 04/05/23 12:08 Discharge Ordered Notes: Location: Home [facility] Problem: new [facility] Symptoms: have improved [facility] Condition: Stable [facility] Diagnosis - Atypical pneumonia 7 - Acute bronchitis, unspecified [facility] Followup: [facility] - With: Private Physician - When: 1 - 2 days - Reason: Recheck today's complaints Discharge Instructions: - Discharge Summary Sheet [facility] - Acute Bronchitis, Adult [facility] - Community-Acquired Pneumonia, Adult [facility] Forms: - Medication Reconciliation Form [facility] - Thank You Letter [facility] - Antibiotic Education [facility] - Patient Portal Instructions [facility] - Leadership Thank You Letter [facility] Prescriptions: - Zithromax Z-Bernardino 250 mg Oral Tablet - take 1 tablet ORAL route as directed for 5 days Day 1 - take two (2) tablets [facility] one time. Day 2, 3, 4 , 5 take one (1) tablet once daily.; 6 tablet; Refills: 0, Product Selection Permitted - Medrol (Bernardino) 4 mg Oral Tablets, Dose Pack - take 1 tablet ORAL route as directed - follow package instructions; 1 packet; [facility] Refills: 0, Product Selection Permitted Signatures: Dispatcher [employer] Demetrice Rubin FNP FNP 7 Misti Oliveira RN RN kc6 Roosevelt Brown MD MD rt
[2023-04-05 12:51] VITALS: BP 101/65; O2SAT 99
== END 2023-04-05 12:26 | disposition home or self-care (01) ==
LOC: ER 10:29
DX: O99.519 Diseases of the respiratory system complicating pregnancy, unspecified trimester (principal); J18.9 Pneumonia, unspecified organism; J20.9 Acute bronchitis, unspecified; Z3A.00 Weeks of gestation of pregnancy not specified; Z88.1 Allergy status to other antibiotic agents; Z88.5 Allergy status to narcotic agent
CPT/HCPCS: 96361; 85025; 80048; 36415; 71045; 96375; 96374; 99284; J7613; J2405; J7030

== ENCOUNTER 2023-04-05 22:05 | Emergency (ER) | payer OTHER ==
--- OUTSIDE RECORDS SUMMARY | 2023-04-05 22:13 | XMS REPORT | Continuity of Care Document ---
:1995 Author Organization [facility] t Address [address] [place] [address] Care Team Providers Name Role Phone Asked, No Pcp Primary Care Physician Unavailable JAMIE_GUILLERMO_Bruce_Agnes Attending Clinician Unavailable RICKY HOOKS Attending Clinician Unavailable Ricky Hooks Attending Clinician MICHAEL MCKNIGHT Attending Clinician Unavailable Juan Luis AREVALO, Mcihael Hurley Attending Clinician David AREVALO, Orin Gan Attending Clinician Tim ALEJANDROPMaicol Attending Clinician [phone] MENDY LIRIANO Attending Clinician Unavailable Heri AREVALO, Mendy Attending Clinician Ifrah AREVALO, Skyler Frias Attending Clinician [phone] MAICOL DUMONT Attending Clinician Unavailable Doctor Unassigned, Lynden Attending Clinician Unavailable Tricia HERBERT Attending Clinician Unavailable Tricia Rice Attending Clinician JOHN BYERS Attending Clinician Unavailable Leah GUERREROPJohn Attending Clinician Zaheer AREVALO, Nash Conteh Attending Clinician Calvin AREVALO, Lorena Real Attending Clinician [phone] IZA DENSON Attending Clinician Unavailable Jessica AREVALO, Ania Attending Clinician AFSANEH CRA Attending Clinician Unavailable Afsaneh Car NP Attending Clinician Cralos Hernandez DO Attending Clinician Akiko Darden Attending Clinician John Agarwal Attending Clinician JOHN RIVERA Attending Clinician Unavailable Wild Cowart MD Attending Clinician Dani Kauffman DO Attending Clinician [facility] Admitting Clinician Unavailable RICKY HOOKS Admitting Clinician Unavailable Ricyk Hooks Admitting Clinician CALE CASE Admitting Clinician Unavailable Tricia HERBERT Admitting Clinician Unavailable LORENA SIMPSON Admitting Clinician Unavailable Wild Barrera Admitting Clinician Unavailable Payers Payer Name Policy Type Policy Number Effective Date Expiration Date S shobha SIDDIQI FROM [id number] [facility] 00:00:00 [employer] [facility] [id number] 2019 00:00:00 [facility] [id number] 2023 CHOICE (MEDICAID 00:00:00 REPLACEMENT - HMO) [facility] [id number] 2023 CHOICE [place] ST[place] 00:[place]:00 [place] [id number] [place] Problems Condition Condition Condition Status Onset Resolution Last Treating Co mments Source Name Details Category Date Date Treatment Clinician Date Fall down Fall down Disease Active Uni vers stairs, stairs, 9-10 ity of initial initial 00:00: [place] encounter encounter 00 Medi [place] Branch UTI in UTI in Disease Active Overview: Univer s 01-21 Formattin i ty of 00:00: g of this [place] note Medical might be Branch different from the original. Pending loyda Multiparit Multiparit Disease Active U nivers y y 7- ity of 00:00: [place] [facility] History of History of Disease Active U nivers miscarriag miscarriag 7-24 it y of e e 00:00: [place] [facility] History of History of Disease Active Overview : Univers 7 Formattin ity of section section 00:00: g of this [place] note Medical might be Branch different from the original. x2 see scanned records History of History of Disease Active U nivers depression depression 7-24 it y of 00:00: [place] [facility] History of History of Disease Active U nivers anxiety anxiety 7-24 ity of 00:00: [place] [facility] History of History of Disease Active Overview : Univers hypertensi hypertensi 7-24 Formattin ity of on on 00:00: g of this [place] note Medical might be Branch different from the original. Reports on amlodipin e off of meds x2 months History of History of Disease Active Overview : Univers bulimia bulimia 7-24 Formattin ity o f 00:00: g of this [place] 00 note Medical might be Branch different [...] and Disease Active U nivers vomiting vomiting 01-18 ity of in in 00:00: [place] 00 Medi scott Branch Pregestati Pregestati Disease Active Overview : Univers onal onal 01-18 Formattin ity of diabetes diabetes 00:00: g of this [place] as mellitus, mellitus, 00 note Medi sctot modified modified might be Bran ch White White different class B class B from the original. refused glucola, will check blood glucose x2 weeks Obesity Obesity Disease Active Univers (BMI (BMI 1-16 ity of 30-39.9) 30-39.9) 00:00: [place] 00 Medical Branch Urinary Urinary Disease Active Univers tract tract 5-29 ity of infection [place] 00[place] without without 00 Medical hematuria, hematuria, Br anch site site unspecifie unspecifie d d Supervisio Supervisio Disease Active U nivyuan n of other n of other - [...] Active U nivers 5-23 ity of 00:00: [place] [facility] Family Family Disease Active Univers [...] CONNOR INGREDI 12-14 ity of 00:00: [place] [facility] IODINE DRUG Active Hives Univers INGREDI 12-14 ity of 00:00: [place] 00 Medical Branch Amoxicil Propensi Active Rash Univer s connor ty to 12-14 ity of adverse 00:00: [place] reaction Medical s Branch Iodine Propensi Active Cough IV Univers ty to 12-14 contrast ity of adverse 00:00: [place] reaction 00 Medical s Branch Ketorola Propensi Active Other - See Has bad Univers c ty to comments 12-31 anxiety, ity of adverse 00:00: but can [place] reaction take with Medic al s Benadryl Branch KETOROLA DRUG Active Other-Cmnt Univ ers C INGREDI 12-31 ity of 00:00: [place] 00 Medical Branch butorpha DA Active [place] [facility] nol 2-04 [facility] 00 l of [place] butorpha DA Active MO tachycardic [facility] nol 2-04 [facility] 00:[facility]: [facility]osp[facility] 00 l of [place] BUTORPHA DRUG Active Palpitations Un carolann [...] 00 l of [place] codeine DA Active [place] [facility] 1-19 [facility] 00:00: [facility]ospita 00 l of [place] morphine DA Active U SWELLING 2019-0 [facility] 1-19 [facility] 00:00: Hospita 00 l of [place] codeine DA Active [place] nausea, 2019-0 [facility] headache 1-19 Woman's 00:00: Hospita 00 l of [place] tramadol DA Active VT 2018- [facility] 2-31 Woman's 00:00: Hospita 00 l of [place] tramadol DA Active [place] CHEST PAIN 2018- [facility] 2-31 Woman's 00:00: Hospita 00 l of [place] Acetamin Propensi Active Shortness Of 0 Methodi ophen-Co ty to Breath 14 st deine adverse 00:00: Hospita reaction 00 l s to drug Tramadol Propensi Active Other (See headache Methodi ty to Comments) 03-11 st adverse 00:00: Hospita reaction 00 l s to drug ACETAMIN DRUG Active High SOB 2015- Univers OPHEN-CO 9- ity of DEINE 00:00: [place] 00 Medical Branch Acetamin Propensi Active Shortness of Univers ophen-Co ty to Breath 03-11 ity of deine adverse 00:00: [place] reaction 00 Medical s Branch TRAMADOL DRUG Active Anaphylaxis 2013- Uni vers INGREDI 5-07 ity of 00:00: [place] 00 Medical Branch TUSSIN DRUG Active Rash 2013-0 Univers DM COUGH -07 ity of MEDICINE 00:00: [place] 00 Medical Branch Tussin Propensi Active Rash 2013-0 Univers Dm Cough ty to 5-07 ity of Medicine adverse 00:00: [place] reaction 00 Medical s Branch No Known DA Active U 2013- [facility] Allergie 3-14 Woman's s 00:00: Hospita 00 l of [place] Family History Family Member Diagnosis Comments Start Date Stop Date Source Natural mother Menstrual problems [facility] Natural mother Diabetes [facility] Social History Social Habit Start Date Stop Date Quantity Comments Source ASSERTION 2022-12-14 [facility] 00:00:00 Hospital Gender identity Universit y of [facility] Sexual orientation Method ist Hospital Education 2023-03-07 2023-03-07 14 University of 00:00:00 00:00:00 [facility] Alcohol intake 2023-02-26 2023-02-26 Current drinker [facility] dist 00:00:00 00:00:00 of alcohol Hospital (finding) History of Social 2023-02-26 2023-02-[address] function 00:00:00 00:00:00 Hospital Exposure to 2022-10-09 2022-10-19 Not sure University of SARS-CoV-2 (event) 00:00:00 08:19:00 [facility] Tobacco use and 2022-03-26 2022-03-26 Smokeless Yarsani exposure 00:00:00 00:00:00 tobacco non-user Hospital Alcohol Comment 2016-04-28 2016-04-28 social, weekly [facility]o dist 00:00:00 00:00:00 Hospital Sex Assigned At [birth year] Y[facility]ani 00:00:00 00:00:00 Hospital Smoking Status Start Date Stop Date Source Never smoked tobacco [facility] Medications Ordered Filled Start Stop Current Ordering Indication Dosage Frequency Signature Comments Components Source Medication Medication Date Date Medication? Clinician (SIG) Name Name pantoprazol Yes 40mg 40 mg, Univ ers e 03-09 Oral, ity of (PROTONIX) 14:00: DAILY, [place] EC tablet 00 First dose Medi scott 40 mg on [facility] 03/09/23 at 0900, Until Discontinu ed, Routine diphenhydrA 2022- No 12.5mg 12.5 mg, Univers MINE 03-08 Intravenou ity of (BENADRYL) 18:30: 18:40 s, ONCE, 1 [place] injection 00 :00 dose, On Medica l 12.5 mg [facility] 03/08/23 at 1330, Routine cyclobenzap Yes 5mg [...] 00 :00 dose, On Medica l mg [facility] 03/08/23 at 1045, Routine Yes 1{tbl} 1 tablet, Un [place] vitamin 03-08 Oral, ity of w/FA tablet 14:00: DAILY, [place] 1 tablet 00 First dose Medic al on [place] Branch 03/08/23 at 0900, Until Discontinu ed, Routine diphenhydrA 2022- No 25mg 25 mg, Uni vers MINE 03-08 Intravenou ity of (BENADRYL) 07:30: 07:22 s, ONCE, 1 [place] injection 00 :00 dose, On Medica l 25 mg [facility] Branch 03/08/23 at 0230, Routine acetaminoph Yes 650mg 650 mg, Un car[place]ann en 03-08 Oral, ity of (TYLENOL) 02:25: Q6HPRN, [place] tablet 650 43 Starting Medic al mg on [place] [facility] 03/07/23 at 2125, Until Discontinu ed, Routine, Pain (scale 1-3) HYDROcodone 2022- No 1{tbl} 1 tablet, Univers -acetaminop 03-08 Oral, ity of hen (NORCO) 02:23: 14:37 Q6[place]PRN, [place] 10-325 mg 41 :22 Starting Medica l tablet 1 on [facility] tablet 03/07/23 at 2123, Until 03/08/23 at 0937, Routine, Pain (scale 4-6) morpHINE (2 2022- No 2mg 2 mg, Slow Univers mg/mL) 03-07 IV Push, ity of injection 2 20:50: 23:34 Q4HPRN, [place] mg 15 :37 Starting Medical on [place] [facility] 03/07/23 at 1550, Until [place] 03/07/23 at 1834, Routine, Pain (scale 7-10) morpHINE (4 2022- No 4mg 4 mg, Slow Univers mg/mL) 03-07 IV Push, ity of injection 4 17:15: 17:12 ONCE, 1 [place] mg 00 :00 dose, On Medical [place] [facility] 03/07/23 at 1215, STAT metoclopram 2022- No 10mg 10 mg, Uni vers dio HCl 03-07 Slow IV ity of (REGLAN) 17:15: 17:13 Push, [place] injection 00 :00 ONCE, 1 Medical mg dose, On Branch [place] 03/07/23 at 1215, RODRICK NaCl 0.9% 2022- No 1000mL at 999 Uni vers (NS) bolus 03-07 0910 mL/hr, ity of infusion 14:00: 18:02 1,000 mL, [place] as 1,000 mL 00 :00 IV Medical Infusion, Branch ONCE, 1 dose, On 03/07/23 at 0900, STAT ondansetron 2022- No 4mg 4 mg, Slow Univers (ZOFRAN 03-07 IV Push, ity of (PF)) 14:00: 13:56 ONCE, 1 [place] injection 4 00 :00 dose, On Medi scott mg [facility] 03/07/23 at 0900, RODRICK morpHINE (4 Yes 4mg 4 mg, Slow Univers mg/mL) 03-07 IV Push, ity of injection 4 13:55: Q4HPRN, [place] mg 17 Starting Medical on [facility] 03/07/23 at 0855, Until Discontinu ed, Routine, [...] uration of Therapy: Other (see Comments) cephALEXin 0 Yes [id number] 500mg Take 1 Univers (KEFLEX) 8-21 capsule by ity o f 500 mg 00:00: mouth 4 [place] capsule 00 (four) Medical times Branch daily. Nitrofurant 2022-0 Yes [id number] 100mg Take 1 Univers oin&Nit. 8-21 capsule by ity o f Macrocryst 00:00: mouth in [place] (MACROBID) 00 the Medical 100 mg morning Branch capsule and 1 capsule in the evening. cephALEXin 2022-0 Yes [id number] 500mg Take 1 Univers (KEFLEX) 8-21 capsule by ity o f 500 mg 00:00: mouth 4 [place] capsule 00 (four) Medical times Branch daily. Nitrofurant 2023-0 Yes [id number] 100mg Take 1 Univers oin&Nit. 8-21 capsule by ity o f Macrocryst 00:00: mouth in [place] (MACROBID) 00 the Medical 100 mg morning Branch capsule and 1 capsule in the evening. cephALEXin 2023-0 Yes [id number] 500mg Take 1 Univers (KEFLEX) 8-21 capsule by ity o f 500 mg 00:00: mouth 4 [place] capsule 00 (four) Medical times Branch daily. Nitrofurant 2023-0 Yes [id number] 100mg Take 1 Univers oin&Nit. 8-21 capsule by ity o f Macrocryst 00:00: mouth in [place] (MACROBID) 00 the Medical 100 mg morning Branch capsule and 1 capsule in the evening. cephALEXin 2023-0 Yes [id number] 500mg Take 1 Univers (KEFLEX) 8-21 capsule by ity o f 500 mg 00:00: mouth 4 [place] capsule 00 (four) Medical times Branch daily. Nitrofurant 2023-0 Yes [id number] 100mg Take 1 Univers oin&Nit. 8-21 capsule by ity o f Macrocryst 00:00: mouth in [place] (MACROBID) 00 the Medical 100 mg morning Branch capsule and 1 capsule in the evening. cephALEXin 2023-0 Yes [id number] 500mg Take 1 Univers (KEFLEX) 8-21 capsule by ity o f 500 mg 00:00: mouth 4 [place] capsule 00 (four) Medical times Branch daily. Nitrofurant 2023-0 Yes [id number] 100mg Take 1 Univers oin&Nit. 8-21 capsule by ity o f Macrocryst 00:00: mouth in [place] (MACROBID) 00 the Medical 100 mg morning Branch capsule and 1 capsule in the evening. acetaminoph 2022-2022- No 2{tbl} Take 2 M ethodi en-caff-pyr 8-20 08-20 tablets by s t ilamine 19:50: 00:00 mouth. Hospita 500-60-15 47 :00 l mg tablet acetaminoph 2022-0 2022- No 2{tbl} Take 2 M ethodi en-caff-pyr 8-20 08-20 tablets by s t ilamine 19:50: 00:00 mouth. Hospita 500-60-15 47 :00 l mg tablet acetaminoph 2023-0 2023- No 2{tbl} Take 2 M ethodi en-caff-pyr 8-20 08-20 tablets by s t ilamine 19:50: 00:00 mouth. Hospita 500-60-15 47 :00 l mg tablet acetaminoph 2023-0 2023- No 2{tbl} Take 2 M ethodi en-caff-pyr 8-20 08-20 tablets by s t ilamine 19:50: 00:00 mouth. Hospita 500-60-15 47 :00 l mg tablet acetaminoph 2023-0 2023- No 2{tbl} Take 2 M ethodi en-caff-pyr 8-20 08-20 tablets by s t ilamine 19:50: 00:00 mouth. Hospita 500-60-15 47 :00 l mg tablet cefpodoxime 3-0 2023- No 200mg Q.5D Take 1 [facility] (VANTIN) 8-14 02-[address] 200 MG 00:00: 04:59 (200 mg Hospita tablet 00 :00 total) by l mouth 2 (two) times a day for 7 days. cefpodoxime 3-0 2023- No 200mg Q.5D Take 1 [facility] (VANTIN) 8-20 -[address] 200 MG 00:00: 04:59 (200 mg Hospita tablet 00 :00 total) by l mouth 2 (two) times a day for 7 days. cefpodoxime 2023-0 2023- No 200mg Q.5D Take 1 [facility] (VANTIN) 8-20 -[address] 200 MG 00:00: 04:59 (200 mg Hospita tablet 00 :00 total) by l mouth 2 (two) times a day for 7 days. cefpodoxime 2023-0 2023- No 200mg Q.5D Take 1 [facility] (VANTIN) 8-20 -[address] 200 MG 00:00: 04:59 (200 mg Hospita tablet 00 :00 total) by l mouth 2 (two) times a day for 7 days. cefpodoxime 2023-0 2023- No 200mg Q.5D Take 1 Me th[facility] (VANTIN) 02-[address] 200 MG 00:00: 04:59 (200 mg Hospita tablet 00 :00 total) by l mouth 2 (two) times a day for 7 days. phenazopyri 2022-0 2022- No 100mg Q.[id number] Take 1 Methodi dine 02-[id number] (Pyridium) 00:00: 04:59 3D (100 mg Hos radha 100 MG 00 :00 total) by l tablet mouth 3 (three) times a day as needed for bladder spasms for up to 3 days. phenazopyri 2022-0 2022- No 100mg Q.[id number] Take 1 Methodi dine 02-[id number] (Pyridium) 00:00: 04:59 3D (100 mg Hos radha 100 MG 00 :00 total) by l tablet mouth 3 (three) times a day as needed for bladder spasms for up to 3 days. phenazopyri 2022-0 2022- No 100mg Q.[id number] Take 1 Methodi dine 02-[id number] (Pyridium) 00:00: 04:59 3D (100 mg Hos radha 100 MG 00 :00 total) by l tablet mouth 3 (three) times a day as needed for bladder spasms for up to 3 days. phenazopyri 2022-0 2022- No 100mg Q.[id number] Take 1 Methodi dine 02-[id number] (Pyridium) 00:00: 04:59 3D (100 mg Hos radha 100 MG 00 :00 total) by l tablet mouth 3 (three) times a day as needed for bladder spasms for up to 3 days. phenazopyri 2022-0 2022- No 100mg Q.[id number] Take 1 Methodi dine 02-[id number] (Pyridium) 00:00: 04:59 3D (100 mg Hos radha 100 MG 00 :00 total) by l tablet mouth 3 (three) times a day as needed for bladder spasms for up to 3 days. clindamycin 2022- Yes [id number] 300mg Take 1 Univers 300 mg 01-22 capsule by ity of capsule 00:00: 04:59 mouth in [place] 00 :00 the [facility] morning Branch and 1 capsule in the evening. Do all this for 7 days. clindamycin 2022- Yes [id number] 300mg Take 1 Univers 300 mg 01-22- capsule by ity of capsule 00:00: 04:59 mouth in [place] 00 :00 the [facility] morning Branch and 1 capsule in the evening. Do all this for 7 days. cephALEXin 2022- Yes [id number] 500mg Take 1 Univers (KEFLEX) 01-21- capsule by ity of 500 mg 00:00: 04:59 mouth 4 [place] capsule 00 :00 ([facility] times Sur[place] daily for 10 days. cephALEXin 2022- Yes [id number] 500mg Take 1 Univers (KEFLEX) 01-21 capsule by ity of 500 mg 00:00: 04:59 mouth 4 [place] capsule 00 :00 ([facility] daily for 10 days. cephALEXin 2022- Yes [id number] 500mg Take 1 Univers (KEFLEX) 01-21 capsule by ity of 500 mg 00:00: 04:59 mouth 4 [place] capsule 00 :00 ([facility] times Surrency daily for 10 days. cephALEXin 2022- Yes [id number] 500mg Take 1 Univers (KEFLEX) 01-21- capsule by ity of 500 mg 00:00: 04:59 mouth 4 [place] capsule 00 :00 ([facility] times Sur[place] daily for 10 days. FLUoxetine 2022- No fluoxetine Univers 20 mg 01-18 20 mg ity of capsule 08:55: 00:00 capsule [place] 16 :00 Medical Branch bupropion 2022- No bupropion Un [place] HBr 01-18-24 HBr ity of (APLENZIN 08:55: 00:00 [place] ORAL) 13 :00 Medical Branch ALPRAZolam 2022- No alprazolam Univers 0.5 mg 01-18 0.5 mg ity of tablet 08:55: 00:00 tablet [place] 07 :00 Medical Branch proMETHazin Yes [id number] 25mg Take 1 Univers e 25 mg 7-24 tablet by ity of tablet 00:00: mouth [place] 00 every 6 Medical (six) Branch hours as needed for Nausea and Vomiting (N/V). blood sugar Yes [id number] Check U nivers diagnostic 7-24 blood ity of (FREESTYLE 00:00: glucose 4x [place] LITE 00 daily Medical STRIPS) Branch strip lancets Yes [id number] Check Unive rs (FREESTYLE 7-24 glucose 4x ity of LANCETS) 28 00:00: daily [place] [facility] Medical Branch Blood-Gluco Yes [id number] Check U nivers se Meter 7-24 blood ity of (FREESTYLE 00:00: glucose 4x [place] LITE METER) 00 daily Medical Kit Branch Yes [id number] 1{tbl} Take 1 U nivers [id number]- 7-24 tablet by ity of folic acid 00:00: mouth in [place] 29 mg iron- 00 the Medical 1 mg per morning. Branch tablet proMETHazin Yes [id number] 25mg Take 1 Univers e 25 mg 7-24 tablet by ity of tablet 00:00: mouth [place] 00 every 6 Medical (six) Branch hours as needed for Nausea and Vomiting (N/V). blood sugar Yes [id number] Check U nivers diagnostic 7-24 blood ity of (FREESTYLE 00:00: glucose 4x [place] LITE 00 daily Medical STRIPS) Branch strip lancets Yes [id number] Check Unive rs (FREESTYLE 7-24 glucose 4x ity of LANCETS) 28 00:00: daily [place] gauge Mis Medical Branch Blood-Gluco Yes [id number] Check U nivers se Meter 7-24 blood ity of (FREESTYLE 00:00: glucose 4x [place] LITE METER) 00 daily Medical Kit Branch Yes [id number] 1{tbl} Take 1 U nivers [id number]- 7-24 tablet by ity of folic acid 00:00: mouth in [place] 29 mg iron- 00 the Medical 1 mg per morning. Branch tablet proMETHazin Yes [id number] 25mg Take 1 Univers e 25 mg 7-24 tablet by ity of tablet 00:00: mouth [place] 00 every 6 Medical (six) Branch hours as needed for Nausea and Vomiting (N/V). blood sugar Yes [id number] Check U nivers diagnostic 7-24 blood ity of (FREESTYLE 00:00: glucose 4x [place] LITE 00 daily Medical STRIPS) Branch strip lancets Yes [id number] Check Unive rs (FREESTYLE 7-24 glucose 4x ity of LANCETS) 28 00:00: daily [place] gauge Misc 00 Medical Branch Blood-Gluco Yes [id number] Check U nivers se Meter 7-24 blood ity of (FREESTYLE 00:00: glucose 4x [place] LITE METER) 00 daily Medical Kit Branch Yes [id number] 1{tbl} Take 1 U nivers [id number]- 7-24 tablet by ity of folic acid 00:00: mouth in [place] 29 mg iron- 00 the Medical 1 mg per morning. Branch tablet proMETHazin Yes [id number] 25mg Take 1 Univers e 25 mg 7-24 tablet by ity of tablet 00:00: mouth [place] 00 every 6 Medical (six) Branch hours as needed for Nausea and Vomiting (N/V). blood sugar Yes [id number] Check U nivers diagnostic 7-24 blood ity of (FREESTYLE 00:00: glucose 4x [place] LITE 00 daily Medical STRIPS) Branch strip lancets Yes [id number] Check Unive rs (FREESTYLE 7-24 glucose 4x ity of LANCETS) 28 00:00: daily [place] gauge Misc 00 Medical Branch Blood-Gluco Yes [id number] Check U nivers se Meter 7-24 blood ity of (FREESTYLE 00:00: glucose 4x [place] LITE METER) 00 daily Medical Kit Branch Yes [id number] 1{tbl} Take 1 U nivers [id number]- 7-24 tablet by ity of folic acid 00:00: mouth in [place] 29 mg iron- 00 the Medical 1 mg per morning. Branch tablet proMETHazin Yes [id number] 25mg Take 1 Univers e 25 mg 7-24 tablet by ity of tablet 00:00: mouth [place] 00 every 6 Medical (six) Branch hours as needed for Nausea and Vomiting (N/V). blood sugar Yes [id number] Check U nivers diagnostic 7-24 blood ity of (FREESTYLE 00:00: glucose 4x [place] LITE 00 daily Medical STRIPS) Branch strip lancets Yes [id number] Check Unive rs (FREESTYLE 7-24 glucose 4x ity of LANCETS) 28 00:00: daily [place] gauge Misc 00 Medical Branch Blood-Gluco Yes [id number] Check U nivers se Meter 7-24 blood ity of (FREESTYLE 00:00: glucose 4x [place] LITE METER) 00 daily Medical Kit Branch Yes [id number] 1{tbl} Take 1 U nivers [id number]- 7-24 tablet by ity of folic acid 00:00: mouth in [place] 29 mg iron- 00 the Medical 1 mg per morning. Branch tablet proMETHazin Yes [id number] 25mg Take 1 Univers e 25 mg 7-24 tablet by ity of tablet 00:00: mouth [place] 00 every 6 Medical (six) Branch hours as needed for Nausea and Vomiting (N/V). blood sugar Yes [id number] Check U nivers diagnostic 7-24 blood ity of (FREESTYLE 00:00: glucose 4x [place] LITE 00 daily Medical STRIPS) Branch strip lancets Yes [id number] Check Unive rs (FREESTYLE 7-24 glucose 4x ity of LANCETS) 28 00:00: daily [place] gauge Misc 00 Medical Branch Blood-Gluco Yes [id number] Check U nivers se Meter 7-24 blood ity of (FREESTYLE 00:00: glucose 4x [place] LITE METER) 00 daily Medical Kit Branch Yes [id number] 1{tbl} Take 1 U nivers [id number]- 7-24 tablet by ity of folic acid 00:00: mouth in [place] 29 mg iron- 00 the Medical 1 mg per morning. Branch tablet proMETHazin Yes [id number] 25mg Take 1 Univers e 25 mg 7-24 tablet by ity of tablet 00:00: mouth [place] 00 every 6 Medical (six) Branch hours as needed for Nausea and Vomiting (N/V). blood sugar Yes [id number] Check U nivers diagnostic 7-24 blood ity of (FREESTYLE 00:00: glucose 4x [place] LITE 00 daily Medical STRIPS) Branch strip lancets Yes [id number] Check Unive rs (FREESTYLE 7-24 glucose 4x ity of LANCETS) 28 00:00: daily [place] gauge Mis 00 Medical Branch Blood-Gluco Yes [id number] Check U nivers se Meter 7-24 blood ity of (FREESTYLE 00:00: glucose 4x [place] LITE METER) 00 daily Medical Kit Branch Yes [id number] 1{tbl} Take 1 U nivers [id number]- 7-24 tablet by ity of folic acid 00:00: mouth in [place] 29 mg iron- 00 the Medical 1 mg per morning. Branch tablet proMETHazin Yes [id number] 25mg Take 1 Univers e 25 mg 7-24 tablet by ity of tablet 00:00: mouth [place] 00 every 6 Medical (six) Branch hours as needed for Nausea and Vomiting (N/V). blood sugar Yes [id number] Check U nivers diagnostic 7-24 blood ity of (FREESTYLE 00:00: glucose 4x [place] LITE 00 daily Medical STRIPS) Branch strip lancets Yes [id number] Check Unive rs (FREESTYLE 7-24 glucose 4x ity of LANCETS) 28 00:00: daily [place] gauge Misc Medical Branch Blood-Gluco Yes [id number] Check U nivers se Meter 7-24 blood ity of (FREESTYLE 00:00: glucose 4x [place] LITE METER) 00 daily Medical Kit Branch Yes [id number] 1{tbl} Take 1 U nivers [id number]- 7-24 tablet by ity of folic acid 00:00: mouth in [place] 29 mg iron- 00 the Medical 1 mg per morning. Branch tablet proMETHazin Yes [id number] 25mg Take 1 Univers e 25 mg 7-24 tablet by ity of tablet 00:00: mouth [place] 00 every 6 Medical (six) Branch hours as needed for Nausea and Vomiting (N/V). blood sugar Yes [id number] Check U nivers diagnostic 7-24 blood ity of (FREESTYLE 00:00: glucose 4x [place] LITE 00 daily Medical STRIPS) Branch strip lancets Yes [id number] Check Unive rs (FREESTYLE 7-24 glucose 4x ity of LANCETS) 28 00:00: daily [place] gauge Misc 00 Medical Branch Blood-Gluco Yes [id number] Check U nivers se Meter 7-24 blood ity of (FREESTYLE 00:00: glucose 4x [place] LITE METER) 00 daily Medical Kit Branch Yes [id number] 1{tbl} Take 1 U nivers [id number]- 7-24 tablet by ity of folic acid 00:00: mouth in [place] 29 mg iron- 00 the Medical 1 mg per morning. Branch tablet proMETHazin Yes [id number] 25mg Take 1 Univers e 25 mg 7-24 tablet by ity of tablet 00:00: mouth [place] 00 every 6 Medical (six) Branch hours as needed for Nausea and Vomiting (N/V). blood sugar Yes [id number] Check U nivers diagnostic 7-24 blood ity of (FREESTYLE 00:00: glucose 4x [place] LITE 00 daily Medical STRIPS) Branch strip lancets Yes [id number] Check Unive rs (FREESTYLE 7-24 glucose 4x ity of LANCETS) 28 00:00: daily [place] gauge Misc Medical Branch Blood-Gluco Yes [id number] Check U nivers se Meter 7-24 blood ity of (FREESTYLE 00:00: glucose 4x [place] LITE METER) 00 daily Medical Kit Branch Yes [id number] 1{tbl} Take 1 U nivers alv50-goyi- 7-24 tablet by ity of folic acid 00:00: mouth in [place] 29 mg iron- 00 the Medical 1 mg per morning. Branch tablet cefTRIAXone 0 202- No 1000mg 1,000 mg, Univers (ROCEPHIN) 6-20 06-20 IV ity of 1,000 mg in 04:00: 04:41 Piggyback, [place] NaCl 0.9% 00 :00 ONCE, 1 Medical [...] :00 ONCE, 1 Medical dose, On Branch [facility] 12/14/22 at 2130, RODRICK diphenhydrA 2022- No 25mg 25 mg, Uni vers MINE 12-15 Slow IV ity of (BENADRYL) 02:30: 01:32 Push, [place] injection 00 :00 ONCE, 1 Medical 25 mg dose, On Branch [facility] 12/14/22 at 2130, STAT metoclopram 2022- No 10mg 10 mg, Uni vers dio HCl 12-15 Slow IV ity of (REGLAN) 02:30: 01:32 Push, [place] injection 00 :00 ONCE, 1 Medical 10 mg dose, On Branch [facility] 12/14/22 at 2130, RODRICK acetaminoph 2022- No 1000mg 1,000 mg, Univers en 12-15 Oral, ity of (TYLENOL) 00:15: 00:10 ONCE, 1 [place] tablet 00 :00 dose, On Medical 1,000 mg [facility] 12/14/22 at 1915, RODRICK ondansetron 2022- No 4mg 4 mg, Slow Univers (ZOFRAN 12-14 IV Push, ity of (PF)) 23:45: 22:59 ONCE, 1 [place] injection 4 00 :00 dose, On Medi [place] mg [facility] 12/14/22 at 1845, RODRICK morpHINE (2 2022- No 4mg 4 mg, Slow Univers mg/mL) 6-19 06-19 IV Push, ity of injection 4 23:45: 23:00 ONCE, 1 [place] mg 00 :00 dose, On Medical Mon Branch 12/14/22 at 1845, STAT NaCl 0.9% 2022- No 1000mL at 999 Uni vers (NS) bolus 12-14 06-20 mL/hr, ity of infusion 22:30: 02:04 1,000 mL, [place] 1,000 mL 00 :00 IV Medical Infusion, Branch ONCE, 1 dose, On 12/14/22 at 1730, STAT ibuprofen 2022-0 Yes [id number] 600mg Take 1 Univers 600 mg 4-24 100 tablet by ity of tablet 00:00: mouth [place] 00 every 6 Medical (six) Branch hours as needed for Pain (scale 4-6). ibuprofen 3-0 Yes [id number] 600mg Take 1 Univers 600 mg 4-24 100 tablet by ity of tablet 00:00: mouth [place] 00 every 6 Medical (six) Branch hours as needed for Pain (scale 4-6). ibuprofen 2022-0 Yes [id number] 600mg Take 1 Univers 600 mg 4-24 100 tablet by ity of tablet 00:00: mouth [place] 00 every 6 Medical (six) Branch hours as needed for Pain (scale 4-6). ibuprofen 2022-0 3- No [id number] 600mg Take 1 Univers 600 mg 4-24 [...] Q.5D Take 1 [facility] in (CIPRO) 07-22 08-[address] 500 MG 00:00: 00:00 (500 mg Hospita tablet 00 :00 total) by l mouth 2 (two) times a day. ciprofloxac 2023-0 2023- No 500mg Q.5D Take 1 [facility] in (CIPRO) 07-22 08-[address] 500 MG 00:00: 00:00 (500 mg [facility]ospita tablet 00 :00 total) by l mouth 2 (two) times a day. ciprofloxac 2023-0 2023- No 500mg Q.5D Take 1 [facility] in (CIPRO) 07-22 08-[address] 500 MG 00:00: 00:00 (500 mg [facility]ospita tablet 00 :00 total) by l mouth 2 (two) times a day. ciprofloxac 2023-0 2023- No 500mg Q.5D Take 1 [facility] in (CIPRO) 07-22-[address] 500 MG 00:00: 00:00 (500 [...] 5 days. phenazopyri 3-0 2023- No 200mg Q.[id number] Take 1 Methodi dine 07-[id number] (Pyridium) 00:00: 05:59 3D (200 mg [facility] radha 200 MG 00 :00 total) by l tablet mouth 3 (three) times a day as needed for bladder spasms for up to 3 days. phenazopyri 3-0 2022- No 200mg Q.[id number] Take 1 Methodi dine 07-[id number] (Pyridium) 00:00: 05:59 3D (200 mg [facility] radha 200 MG 00 :00 total) by l tablet mouth 3 (three) times a day as needed for bladder spasms for up to 3 days. phenazopyri 2022-0 2022- No 200mg Q.[id number] Take 1 Methodi dine 07-[id number] (Pyridium) 00:00: 05:59 3D (200 mg [facility] rad[facility] 200 MG 00 :00 total) by l tablet mouth 3 (three) times a day as needed for bladder spasms for up to 3 days. phenazopyri 2022-0 2022- No 200mg Q.[id number] Take 1 Methodi dine 07-[id number] (Pyridium) 00:00: 05:59 3D (200 mg [facility] radha 200 MG 00 :00 total) by l tablet mouth 3 (three) times a day as needed for bladder spasms for up to 3 days. phenazopyri 3-0 2022- No 200mg Q.[id number] Take 1 Methodi dine 07-[id number] (Pyridium) 00:00: 05:59 3D (200 mg [facility] rad[facility] 200 MG 00 :00 total) by l tablet mouth 3 (three) times a day as needed for bladder spasms for up to 3 days. phenazopyri 3-0 2022- No 200mg Q.[id number] Take 1 Methodi dine 07-[id number] (Pyridium) 00:00: 05:59 3D (200 mg [facility] rad[facility] 200 MG 00 :00 total) by l tablet mouth 3 (three) times a day as needed for bladder spasms for up to 3 days. phenazopyri 2022-0 2022- No 200mg Q.[id number] Take 1 Methodi dine 07-[id number] (Pyridium) 00:00: 05:59 3D (200 mg [facility] rad[facility] 200 MG 00 :00 total) by l tablet mouth 3 (three) times a day as needed for bladder spasms for up to 3 days. phenazopyri 2022-0 2022- No 200mg Q.[id number] Take 1 Methodi dine 07-[id number] (Pyridium) 00:00: 05:59 3D (200 mg [facility] rad[facility] 200 MG 00 :00 total) by l tablet mouth 3 (three) times a day as needed for bladder spasms for up to 3 days. phenazopyri 2022-0 2022- No 200mg Q.[id number] Take 1 Methodi dine 07-[id number] (Pyridium) 00:00: 05:59 3D (200 mg [facility] rad[facility] 200 MG 00 :00 total) by l tablet mouth 3 (three) times a day as needed for bladder spasms for up to 3 days. phenazopyri 2022-0 2022- No 200mg Q.[id number] Take 1 Methodi dine 07-[id number] (Pyridium) 00:00: 05:59 3D (200 mg [facility] rad[facility] 200 MG 00 :00 total) by l tablet mouth 3 (three) times a day as needed for bladder spasms for up to 3 days. phenazopyri 2022-0 2022- No 200mg Q.[id number] Take 1 Methodi dine 07-[id number] (Pyridium) 00:00: 05:59 3D (200 mg [facility] 200 MG 00 :00 total) by l tablet mouth 3 (three) times a day as needed for bladder spasms for up to 3 days. phenazopyri 2022-0 2022- No 200mg Q.[id number] Take 1 Methodi dine 07-[id number] (Pyridium) 00:00: 05:59 3D (200 mg [facility] rad[facility] 200 MG 00 :00 total) by l tablet mouth 3 (three) times a day as needed for bladder spasms for up to 3 days. phenazopyri 2022- No 200mg Q.[id number] Take 1 Methodi dine 07-[id number] (Pyridium) 00:00: 05:59 3D (200 mg [facility] rad[facility] 200 MG 00 :00 total) by l tablet mouth 3 (three) times a day as needed for bladder spasms for up to 3 days. phenazopyri 2022- No 200mg Q.[id number] Take 1 Methodi dine 07-[id number] (Pyridium) 00:00: 05:59 3D (200 mg [facility] rad[facility] 200 MG 00 :00 total) by l tablet mouth 3 (three) times a day as needed for bladder spasms for up to 3 days. phenazopyri 2022- No 200mg Q.[id number] Take 1 Methodi dine 07-[id number] (Pyridium) 00:00: 05:59 3D (200 mg [facility] rad[facility] 200 MG 00 :00 total) by l tablet mouth 3 (three) times a day as needed for bladder spasms for up to 3 days. phenazopyri 2022- No 200mg Q.[id number] Take 1 Methodi dine 07-[id number] (Pyridium) 00:00: 05:59 3D (200 [...] Medical 75 mcg dose, On [facility] 05/28/22 at 2230, Routine doxycycline 2021-06- No 100mg 100 mg, U nivers hyclate 07-30 Oral, ity of (Vibramycin 03:45: 03:51 ONCE, 1 [place] capsule 00 :00 dose, On Medica l 100 mg [facility] 05/28/22 at 2145, RODRICK
Re ason for Anti-Infec tive: Documented Infection< br>Documen jd Infection Site: Pelvic
Duration of Therapy: Other (see Comments) morpHINE (4 2021-06 No 4mg 4 mg, Slow Univers mg/mL) 07-30 IV Push, ity of injection 4 02:30: 02:47 ONCE, 1 [place] mg 00 :00 dose, On Medical Elicia Surrency 05/28/22 at 2030, STAT ketorolac 2021-06 No 15mg 15 mg, Unive rs (TORADOL) 07-30 Slow IV ity of injection 01:45: 01:01 Push, [place] 15 mg 00 :00 ONCE, 1 Medical dose, On [facility] 05/28/22 at 1945, Routine iopamidol 2021-06- No [id number] 75mL 75 mL, Univers (ISOVUE 07-30 Intravenou ity o f 370-500 mL) 01:15: 01:15 s, ONCE, 1 [place] injection 00 :00 dose, On Medica l 75 mL [facility] 05/28/22 at 1915, Routine FENTanyl PF 2021-06- No 50ug 50 mcg, Un [place] (SUBLIMAZE 07-30 Slow IV ity o f (PF)) 01:00: 00:11 Push, [place] injection 00 :00 ONCE, 1 Medical 50 mcg dose, On Branch [facility] 05/28/22 at 1900, Routine ondansetron 2021-06- No 4mg 4 mg, Slow Univers (ZOFRAN 07-30 IV Push, ity of (PF)) 00:15: 00:11 ONCE, 1 [place] injection 4 00 :00 dose, On Medi [place] mg [facility] 05/28/22 at 1815, RODRICK metroNIDAZO 2021-06 Yes [id number] 500mg Take 1 Univers LE 500 mg 2-01 tablet by ity o f tablet 00:00: mouth in [place] 00 the Medical morning Branch and 1 tablet in the evening. metroNIDAZO 2021-06 Yes [id number] 500mg Take 1 Univers LE 500 mg 2-01 tablet by ity o f tablet 00:00: mouth in [place] 00 the Medical morning Branch and 1 tablet in the evening. metroNIDAZO 2021-06 Yes [id number] 500mg Take 1 Univers LE 500 mg 2-01 tablet by ity o f tablet 00:00: mouth in [place] 00 the Medical morning Branch and 1 tablet in the evening. metroNIDAZO 2021-06 Yes [id number] 500mg Take 1 Univers LE 500 mg 2-01 tablet by ity o f tablet 00:00: mouth in [place] 00 the Medical morning Branch and 1 tablet in the evening. metroNIDAZO 2021-06- No [id number] 500mg Take 1 Univers LE 500 mg 2-01 07-24 tablet by ity of tablet 00:00: 00:00 mouth in [place] 00 :00 the Medical morning Branch and 1 tablet in the evening. doxycycline 2021-06- No [id number] 100mg Take 1 Univers hyclate 100 07-29 [...] Q6H Take 800 [facility] (ADVIL) 200 9- 09-[address] MG tablet 08:46: [...] as needed for nausea or vomiting. ibuprofen 2022- No 800mg Q8H Take 1 Meth shamir (ADVIL) 800 03-26 08-[address] MG tablet 00:00: 00:00 (800 mg [facility] 00 :00 total) by l mouth every 8 (eight) hours as needed for mild pain. ondansetron 2022- No 4mg Q8H Take 1 Met hodi ODT 03-26-20 tablet (4 st (ZOFRAN-ODT 00:00: 00:00 mg total) Hospita ) 4 MG 00 :00 by mouth l disintegrat every 8 ing tablet (eight) hours as needed for nausea or vomiting. ibuprofen 2022- No 800mg Q8H Take 1 Meth shamir (ADVIL) 800 03-26-[address] MG tablet 00:00: 00:00 (800 mg [facility] 00 :00 total) by l mouth every 8 (eight) hours as needed for mild pain. ondansetron 2022- No 4mg Q8H Take 1 Met hodi ODT 03-26-20 tablet (4 st (ZOFRAN-ODT 00:00: 00:00 mg total) Hospita ) 4 MG 00 :00 by mouth l disintegrat every 8 ing tablet (eight) hours as needed for nausea or vomiting. ALPRAZolam Yes alprazolam U nivers 0.5 mg 9-03 0.5 mg ity of tablet 12:44: tablet [facility] bupropion Yes bupropion Uni vers HBr 9-03 HBr ity of (APLENZIN 12:44: [place] [address] FLUoxetine Yes fluoxetine U nivers 20 mg 903 20 mg ity of capsule 12:44: capsule [address] [place] [address] ALPRAZolam Yes alprazolam U nivers 0.5 mg 9-03 0.5 mg ity of tablet 12:44: tablet [facility] bupropion 2022-0 Yes bupropion Uni vers HBr 9-03 HBr ity of (APLENZIN 12:44: [place] ORAL) [facility] FLUoxetine Yes fluoxetine U nivers 20 mg 02-28 20 mg ity of capsule 12:44: capsule [facility] ALPRAZolam Yes alprazolam U nivers 0.5 mg 02-28 0.5 mg ity of tablet 12:44: tablet [facility] bupropion Yes bupropion Uni vers HBr 02-28 HBr ity of (APLENZIN 12:44: [place] ORAL) [facility] FLUoxetine Yes fluoxetine U nivers 20 mg 02-28 20 mg ity of capsule 12:44: capsule [facility] ALPRAZolam Yes alprazolam U nivers 0.5 mg 02-28 0.5 mg ity of tablet 12:44: tablet [facility] bupropion Yes bupropion Uni vers HBr 02-28 HBr ity of (APLENZIN 12:44: [place] ORAL) [facility] FLUoxetine Yes fluoxetine U nivers 20 mg 02-28 20 mg ity of capsule 12:44: capsule [facility] famotidine 2021- No 20mg 20 [...] 0.5 mg ity of tablet 23:48: tablet [place] [facility] bupropion Yes bupropion Uni vers HBr 02-26 HBr ity of (APLENZIN 23:48: [place] ORAL) [facility] FLUoxetine Yes fluoxetine U nivers 20 mg 02-26 20 mg ity of capsule 23:48: capsule [address] ciprofloxac 2-0 2022- No 500mg Q.5D Take [...] 7 days. phenazopyri 2022-0 2022- No 200mg Q.[id number] Take 1 Methodi dine 02-[id number] (PYRIDIUM) 00:00: 04:59 3D (200 mg [facility] 200 MG 00 :00 total) by l tablet mouth 3 (three) times a day for 3 days. phenazopyri 2022-0 2022- No 200mg Q.[id number] Take 1 Methodi dine 02-[id number] (PYRIDIUM) 00:00: 04:59 3D (200 mg [facility] 200 MG 00 :00 total) by l tablet mouth 3 (three) times a day for 3 days. phenazopyri 2021-0 2021- No 200mg Q.[id number] Take 1 Methodi dine 02-[id number] (PYRIDIUM) 00:00: 04:59 3D (200 mg [facility] 200 MG 00 :00 total) by l tablet mouth 3 (three) times a day for 3 days. phenazopyri 2021-0 2021- No 200mg Q.[id number] Take 1 Methodi dine 02-[id number] (PYRIDIUM) 00:00: 04:59 3D (200 mg [facility] 200 MG 00 :00 total) by l tablet mouth 3 (three) times a day for 3 days. phenazopyri 2021-0 2021- No 200mg Q.[id number] Take 1 Methodi dine 02-[id number] (PYRIDIUM) 00:00: 04:59 3D (200 mg [facility] 200 MG 00 :00 total) by l tablet mouth 3 (three) times a day for 3 days. phenazopyri 2021-0 2021- No 200mg Q.[id number] Take 1 Methodi dine 02-[id number] (PYRIDIUM) 00:00: 04:59 3D (200 mg [facility] 200 MG 00 :00 total) by l tablet mouth 3 (three) times a day for 3 days. phenazopyri 2021-0 2021- No 200mg Q.[id number] Take 1 Methodi dine 02-[id number] (PYRIDIUM) 00:00: 04:59 3D (200 mg [facility] rad[facility] 200 MG 00 :00 total) by l tablet mouth 3 (three) times a day for 3 days. phenazopyri 2021-0 2021- No 200mg Q.[id number] Take 1 Methodi dine 02-[id number] (PYRIDIUM) 00:00: 04:59 3D (200 mg [facility] rad[facility] 200 MG 00 :00 total) by l tablet mouth 3 (three) times a day for 3 days. phenazopyri 2022-0 2022- No 200mg Q.[id number] Take 1 Methodi dine 02-[id number] (PYRIDIUM) 00:00: 04:59 3D (200 mg [facility] 200 MG 00 :00 total) by l tablet mouth 3 (three) times a day for 3 days. phenazopyri 2021-0 2022- No 200mg Q.[id number] Take 1 Methodi dine 02-[id number] (PYRIDIUM) 00:00: 04:59 3D (200 mg [facility] 200 MG 00 :00 total) by l tablet mouth 3 (three) times a day for 3 days. phenazopyri 2021-0 202- No 200mg Q.[id number] Take 1 Methodi dine 02-[id number] (PYRIDIUM) 00:00: 04:59 3D (200 mg [facility] rad[facility] 200 MG 00 :00 total) by l tablet mouth 3 (three) times a day for 3 days. phenazopyri 2021-0 2021- No 200mg Q.[id number] Take 1 Methodi dine 02-[id number] (PYRIDIUM) 00:00: 04:59 3D (200 mg [facility] rad[facility] 200 MG 00 :00 total) by l tablet mouth 3 (three) times a day for 3 days. phenazopyri 2021-0 202- No 200mg Q.[id number] Take 1 Methodi dine 02-[id number] (PYRIDIUM) 00:00: 04:59 3D (200 mg [facility] rad[facility] 200 MG 00 :00 total) by l tablet mouth 3 (three) times a day for 3 days. phenazopyri 2021-0 2022- No 200mg Q.[id number] Take 1 Methodi dine 02-[id number] (PYRIDIUM) 00:00: 04:59 3D (200 mg [facility] rad[facility] 200 MG 00 :00 total) by l tablet mouth 3 (three) times a day for 3 days. phenazopyri 2022-0 2022- No 200mg Q.[id number] Take 1 Methodi dine 02-[id number] (PYRIDIUM) 00:00: 04:59 3D (200 mg [facility] rad[facility] 200 MG 00 :00 total) by l tablet mouth 3 (three) times a day for 3 days. phenazopyri 2021- No 200mg Q.[id number] Take 1 Methodi dine 02-[id number] (PYRIDIUM) 00:00: 04:59 3D (200 mg [facility] rad[facility] 200 MG 00 :00 total) by l tablet mouth 3 (three) times a day for 3 days. phenazopyri 2021- No 200mg Q.[id number] Take 1 Methodi dine 02-18- [id number] tablet st (PYRIDIUM) 00:00: 04:59 3D (200 mg [facility] rad[facility] 200 MG 00 :00 total) by l tablet mouth 3 (three) times a day for 3 days. phenazopyri 2021- No 200mg Q.[id number] Take 1 Methodi dine 02-[id number] (PYRIDIUM) 00:00: 04:59 3D (200 mg [facility] rad[facility] 200 MG 00 :00 total) by l tablet mouth 3 (three) times a day for 3 days. phenazopyri 2021- No 200mg Q.[id number] Take 1 Methodi dine 02-[id number] (PYRIDIUM) 00:00: 04:59 3D (200 [...] No 800mg 800 mg, Uni vers (IBU) 12-31- Oral, ity of tablet 800 08:00: 07:17 ONCE, 1 [place] mg 00 :00 dose, [facility] Medical 12/31/20 at Branch 0300, RODRICK methocarbam 2020- No 1000mg 1,000 mg, Univers oL 12-31- Oral, ONCE ity of (ROBAXIN) 08:00: 07:17 NOW, 1 [place] tablet 00 :00 dose, [facility] Medical 1,000 mg 12/31/20 at Branch 0300, RODRICK ibuprofen Yes [id number] 800mg Take 1 U nivers 800 mg 12-31 tablet by ity of tablet 00:00: mouth [place] 00 every 8 Medical (eight) Branch hours as needed for Pain (scale 4-6). cyclobenzap Yes [id number] 10mg Take 1 Univers rine 10 mg - tablet by ity of tablet 00:00: mouth 3 [place] 00 (three) Medical times Branch daily as needed for Muscle Spasms. ibuprofen 2021- No [id number] 800mg Take 1 Univers 800 mg 12-31- tablet by ity of tablet 00:00: 00:00 mouth [place] 00 :00 every 8 Medical (eight) Branch hours as needed for Pain (scale 4-6). cyclobenzap 2021- No [id number] 10mg Take 1 Univers rine 10 mg [...] IV Medical Infusion, Branch ONCE, 1 dose, Wed11/20/20 at 1530, STAT metoclopram 2020- No 10mg 10 mg, Uni vers dio HCl 11-20 Slow IV ity of (REGLAN) 20:15: 19:18 Push, [place] injection 00 :00 ONCE, 1 Medical [...] IV ity of (BENADRYL) 20:15: 20:15 Push, [place] injection 00 :00 ONCE, 1 Medical 25 mg dose, Wed Branch 11/20/20 at 1515, STAT butalbital- Yes 1{tbl} 1 tablet, Univers acetaminoph -26 Oral, ity of en-caff 18:12: Q4HPRN, [place] (ESGIC) 27 Starting Medical 50-325-40 Wed Branch mg tablet 1 11/20/20 at tablet 1312, Until Discontinu ed, Routine, zofran ketorolac 2020-0 Yes [id number] 10mg Take 1 Un [place] 10 mg 5-26 tablet by ity of tablet 00:00: mouth [place] 00 every 6 Medical (six) Branch hours as needed for Pain (scale 4-6). cyclobenzap 2020-0 Yes [id number] 10mg Take 1 Univers rine 10 mg 5-26 tablet by ity of tablet 00:00: mouth 3 [place] 00 (three) Medical times Branch daily. ketorolac 2020-0 Yes [id number] 10mg Take 1 Un [place] 10 mg 5-26 tablet by ity of tablet 00:00: mouth [place] 00 every 6 Medical (six) Branch hours as needed for Pain (scale 4-6). cyclobenzap 2020-0 Yes [id number] 10mg Take 1 Univers rine 10 mg 5-26 tablet by ity of tablet 00:00: mouth 3 [place] 00 (three) Medical times Branch daily. ketorolac 2021- No [id number] 10mg Take 1 U nivers 10 mg -02-26 tablet by ity of tablet 00:00: 00:00 mouth [place] 00 :00 every 6 Medical (six) Branch hours as needed for Pain (scale 4-6). cyclobenzap 2021- No [id number] 10mg Take 1 Univers rine 10 mg [...] 09/26/20 Branch at 2245, RODRICK ondansetron Yes [id number] 4mg Take 1 Univers (ZOFRAN 4-01 tablet by ity of ODT) 4 mg 00:00: mouth [place] disintegrat 00 every 8 Medic al ing tablet (eight) Branch hours as needed for Nausea and Vomiting (N/V). ondansetron Yes [id number] 4mg Take 1 Univers (ZOFRAN 4-01 tablet by ity of ODT) 4 mg 00:00: mouth [place] disintegrat 00 every 8 Medic al ing tablet (eight) Branch hours as needed for Nausea and Vomiting (N/V). ondansetron Yes [id number] 4mg Take 1 Univers (ZOFRAN 4-01 tablet by ity of ODT) 4 mg 00:00: mouth [place] disintegrat 00 every 8 Medic al ing tablet (eight) Branch hours as needed for Nausea and Vomiting (N/V). ondansetron 2021- No [id number] 4mg Take 1 Univers (ZOFRAN 4-01 09- tablet by ity of ODT) 4 mg 00:00: 00:00 mouth [place] disintegrat 00 :00 every 8 Medic al ing tablet (eight) Branch hours as needed for Nausea and Vomiting (N/V). proMETHazin Yes [id number] 25mg Take 1 Univers e 25 mg 2-09 tablet by ity of tablet 00:00: mouth [place] 00 every 6 Medical (six) Branch hours as needed for Nausea and Vomiting (N/V). proMETHazin Yes [id number] 25mg Take 1 Univers e 25 mg 2-09 tablet by ity of tablet 00:00: mouth [place] 00 every 6 Medical (six) Branch hours as needed for Nausea and Vomiting (N/V). proMETHazin Yes [id number] 25mg Take 1 Univers e 25 mg 2-09 tablet by ity of tablet 00:00: mouth [place] 00 every 6 Medical (six) Branch hours as needed for Nausea and Vomiting (N/V). proMETHazin 2021- No [id number] 25mg Take 1 Univers e 25 mg [...] 10mg 10 mg, Uni vers dio HCl 1-20 -20 Slow IV ity of (REGLAN) 13:30: 12:29 [...] [place] [facility] 00 :00 daily. [facility] 29 mg iron-1 mg -250 mg combo pack Immunizations Ordered Filled Date Status Comments Source Immunization Name Immunization Name Td 2011-06-28 Completed [facility] 00:00:00 [facility] Td 2011-06-28 Completed [facility] 00[facility]00:00 [facility] Td 2011-06-28 Completed [facility] 00:00:00 [place] [facility] Td 2011-06-28 Completed [facility] 00:00:00 [place] [facility] Td 2011-06-28 Completed [facility] 00:00:00 [place] [facility] TD, NOS 2011-06-28 Completed [facility] 00:00:00 [place] [facility] TD, NOS 2011-06-28 Completed [facility] 00:00:00 [place] [facility] TD, NOS 2011-06-28 Completed [facility] 00:00:00 [place] [facility] TD, NOS 2011-06-28 Completed [facility] 00:00:00 [place] [facility] TD, NOS 2011-06-28 Completed [facility] 00:00:00 [place] [facility] TD, NOS 2011-06-28 Completed [facility] 00:00:00 [place] [facility] TD, NOS 2011-06-28 Completed [facility] of 00:00:00 [place] [facility] TD, NOS 2011-06-28 Completed [facility] 00:00:00 [place] [facility] TD, NOS 2011-06-28 Completed [facility] 00:00:00 [place] [facility] TD, NOS 2011-06-28 Completed [facility] 00:00:00 [place] [facility] TD, NOS 2011-06-28 Completed [facility] of 00:00:00 [place] [facility] TD, NOS 2011-06-28 Completed University of 00:00:00 [facility] Branch TD, NOS 2011-06-28 Completed University of 00:00:00 [place] [facility] Td 2011-06-28 Completed University of 00:00:00 [facility] TD, NOS Unknown Completed [facility] Vital Signs Vital Name Observation Time Observation Value Comments Source Systolic blood 2023-03-08 21:00:00 132 mm[Hg] Univer sity of pressure [facility] Diastolic blood 2023-03-08 21:00:00 79 mm[Hg] Unive rsity of pressure [facility] Heart rate 2023-03-08 21:00:00 79 /min [facility] Body temperature 2023-03-08 21:00:00 37.11 [facility] Res[facility] rate 2023-03-08 21:00:00 20 /min [facility] Oxygen saturation in 2023-03-08 21:00:00 96 /min [facility] Arterial blood by [facility] [place] [facility] Pulse oximetry Branch Body height 2023-03-07 19:16:33 157.5 cm [facility] [place] [facility] Body weight 2023-03-07 19:16:33 77.111 kg [facility] [place] [facility] BMI 2023-03-07 19:16:33 31.09 kg/m2 [facility] [place] [facility] Systolic blood 2023-03-07 17:00:00 129 mm[Hg] Univer sity of pressure [place] [facility] Diastolic blood 2023-03-07 17:00:00 83 mm[Hg] Unive rsity of pressure [place] [facility] Heart rate 2023-03-07 17:00:00 122 /min [facility] [place] [facility] Respiratory rate 2023-03-07 17:00:00 21 /min Univ ers[facility] [place] [facility] Oxygen saturation in 2023-03-07 17:00:00 100 /min University of Arterial blood by [place] [facility] Pulse oximetry Branch Body temperature 2023-03-07 13:52:00 35.78 [place] [facility] [place] [facility] Body height 2023-03-07 13:52:00 152.4 cm [facility] [place] [facility] Body weight 2023-03-07 13:52:00 77.111 kg [facility] BMI 2023-03-07 13:52:00 33.20 kg/m2 [facility] Systolic blood 2023-02-15 23:05:00 131 mm[Hg] [facility] [place] [facility] Diastolic blood 2023-02-15 23:05:00 81 mm[Hg] [facility] [place] [facility] Heart rate 2023-02-15 23:05:00 100 /min [facility] Body temperature 2023-02-15 23:05:00 36.72 [place] [facility] [place] [facility] Respiratory rate 2023-02-15 23:05:00 20 /min [facility] [place] [facility] Oxygen saturation in 2023-02-15 23:05:00 99 /min [facility] Arterial blood by [employer] Pulse oxim[facility] Branch Body weight 2023-02-15 23:03:00 79.379 kg [facility] BMI 2023-02-15 23:03:00 34.18 kg/m2 [facility] Systolic blood 2023-01-18 13:45:00 138 mm[Hg] [facility] [place] [facility] Diastolic blood 2023-01-18 13:45:00 82 mm[Hg] [facility] [place] [facility] Heart rate 2023-01-18 13:45:00 87 /min [facility] Body temperature 2023-01-18 13:45:00 35.72 [place] [facility] Respiratory rate 2023-01-18 13:45:00 18 /min [facility] [place] [facility] Body height 2023-01-18 13:45:00 152.4 cm [facility] Body weight 2023-01-18 13:45:00 79.561 kg [facility] BMI 2023-01-18 13:45:00 34.26 kg/m2 [facility] Systolic blood 2022-12-15 04:30:00 94 mm[Hg] [facility] [place] [facility] Diastolic blood 2022-12-15 04:30:00 58 mm[Hg] [facility] [place] [facility] Heart rate 2022-12-15 04:30:00 88 /min [facility] Respiratory rate 2022-12-15 04:30:00 13 /min [facility] Oxygen saturation in 2022-12-15 04:30:00 96 /min [facility] Arterial blood by [facility] Pulse oximetry Branch Body temperature 2022-12-15 04:00:00 37 [place] [facility] [place] [facility] Body height 2022-12-14 20:54:00 152.4 cm [facility] Body weight 2022-12-14 20:54:00 79.379 kg [facility] BMI 2022-12-14 20:54:00 34.18 kg/m2 [facility] Systolic blood 2022-10-19 14:30:00 129 mm[Hg] [facility] [place] [facility] Diastolic blood 2022-10-19 14:30:00 93 mm[Hg] [facility] [place] [facility] Heart rate 2022-10-19 14:30:00 73 /min [facility] Respiratory rate 2022-10-19 14:30:00 14 /min [facility] [place] [facility] Oxygen saturation in 2022-10-19 14:30:00 100 /min [facility] Arterial blood by [facility] Pulse oxim[facility] Branch Body temperature 2022-10-19 13:22:00 37 [place] [facility] [place] [facility] Body height 2022-10-19 13:22:00 152.4 cm [facility] Body weight 2022-10-19 13:22:00 79.833 kg [facility] BMI 2022-10-19 13:22:00 34.37 kg/m2 [facility] Systolic blood 2022-05-29 04:19:00 123 mm[Hg] [facility] [place] [facility] Diastolic blood 2022-05-29 04:19:00 87 mm[Hg] [facility] [place] [facility] Heart rate 2022-05-29 04:19:00 93 /min [facility] Respiratory rate 2022-05-29 04:19:00 18 /min [facility] [place] [facility] Oxygen saturation in 2022-05-29 04:19:00 97 /min [facility] Arterial blood by [facility] Pulse oximetry Branch Body temperature 2022-05-28 23:42:00 37.11 [place] [facility] [place] [facility] Body height 2022-05-28 23:42:00 152.4 cm [facility] Systolic blood 2022-02-27 05:31:00 130 mm[Hg] [facility] [place] [facility] Diastolic blood 2022-02-27 05:31:00 87 mm[Hg] [facility] [place] [facility] Heart rate 2022-02-27 05:31:00 98 /min [facility] Respiratory rate 2022-02-27 05:31:00 18 /min [facility] [place] [facility] Oxygen saturation in 2022-02-27 05:31:00 99 /min [facility] Arterial blood by [facility] Pulse oximetry Branch Body height 2022-02-27 03:38:00 152.4 cm [facility] Body weight 2022-02-27 03:38:00 82.101 kg [facility] BMI 2022-02-27 03:38:00 35.35 kg/m2 [facility] Body temperature 2022-02-27 03:36:00 36.28 [place] [facility] [place] [facility] Systolic blood 2020-12-31 06:49:00 125 mm[Hg] [facility] [place] [facility] Diastolic blood 2020-12-31 06:49:00 93 mm[Hg] [facility] [place] [facility] Heart rate 2020-12-31 06:49:00 104 /min [facility] Body temperature 2020-12-31 06:49:00 [...] 99 /min [facility] Arterial blood by [employer] [facility] Pulse oximetry Branch Systolic blood 2020-12-31 06:49:00 125 mm[Hg] [facility] [place] [facility] Diastolic blood 2020-12-31 06:49:00 93 mm[Hg] [facility] [place] [facility] Heart rate 2020-12-31 06:49:00 104 /min [facility] Body temperature 2020-12-31 06:49:00 [...] 99 /min [facility] Arterial blood by [employer] [facility] Pulse oximetry Branch Systolic blood 2020-11-20 [...] by [facility] Pulse oximetry Branch Body weight 2020-11-20 16:43:00 [...] by [facility] Pulse oximetry Branch Body weight 2020-11-20 16:43:00 [...] 97 /min [facility] blood by [place] [employer] Pulse oximetry Branch Body height 2020-09-26 [...] 97 /min [facility] by [place] [employer] Pulse oximetry Branch Systolic blood 2020-07-17 [...] 100 /min [facility] by [place] [employer] [facility] Pulse oximetry Branch Body temperature 2020-07-17 11:50:00 37.22 [place] [facility] [place] [facility] Body weight 2020-07-17 11:50:00 86.183 kg [facility] BMI 2020-07-17 11:50:00 37.11 kg/m2 [facility] Systolic blood 2020-07-17 14:00:00 112 mm[Hg] [facility] pressure [facility] Diastolic blood 2020-07-17 14:00:00 65 mm[Hg] [facility]ive [facility]ity of [facility] Heart rate 2020-07-17 14:00:00 86 /min [facility] Respiratory rate 2020-07-17 14:00:00 20 /min [facility] in 2020-07-17 14:00:00 100 /min University Arterial blood by [facility] Pulse oximetry [place] Body temperature 2020-07-17 11:50:00 37.22 [place] [facility] Body weight 2020-07-17 11:50:00 86.183 kg [facility] BMI 2020-07-17 11:50:00 37.11 kg/m2 [facility] Systolic blood 2023-02-27 00:45:00 107 mm[Hg] Method [facility] pressure Diastolic blood 2023-02-27 00:45:00 77 mm[Hg] [facility] pressure Heart rate 2023-02-27 00:45:00 88 /min [facility] Body temperature 2023-02-27 00:45:00 36.56 [place] [facility] Respiratory rate 2023-02-27 00:45:00 19 /min [facility] Oxygen saturation in 2023-02-27 00:45:00 97 /min [facility] Arterial blood by Pulse oximetry Body height 2023-02-26 23:18:00 152.4 cm [facility] Body weight 2023-02-26 23:18:00 79.379 kg [facility] BMI 2023-02-26 23:18:00 34.18 kg/m2 [facility] Systolic blood 2022-07-22 19:04:00 122 mm[Hg] Method [facility] pressure Diastolic blood 2022-07-22 19:04:00 72 mm[Hg] [facility] pressure Heart rate 2022-07-22 19:04:00 72 /min [facility] Respiratory rate 2022-07-22 19:04:00 18 /min [facility] Oxygen saturation in 2022-07-22 19:04:00 100 /min [facility] Arterial blood by Pulse oximetry Body temperature 2022-07-22 17:04:00 36.72 [place] [facility] Body height 2022-07-22 17:04:00 157.5 cm [facility] Body weight 2022-07-22 17:04:00 85.276 kg [facility] BMI 2022-07-22 17:04:00 34.39 kg/m2 [facility] Systolic blood 2022-03-26 13:44:00 139 mm[Hg] [facility] blood 2022-03-26 13:44:00 83 mm[Hg] [facility] pressure Heart rate 2022-03-26 13:44:00 101 /min [facility] Respiratory rate 2022-03-26 13:44:00 18 /min [facility] Oxygen saturation in 2022-03-26 13:44:00 100 /min [facility] Arterial blood by Pulse oximetry Body temperature 2022-03-26 12:32:00 36.72 [place] [facility] Body height 2022-03-26 12:32:00 157.5 cm [facility] Body weight 2022-03-26 12:32:00 85.276 kg [facility] BMI 2022-03-26 12:32:00 34.39 kg/m2 [facility] Procedures Procedure Date / Time Performing Clinician Source Performed MR LUMBAR SPINE WO 2023-03-08 19:34:24 Deann Mosley [facility] MR THORACIC SPINE WO 2023-03-08 19:24:14 Deann Mosley [facility] XR HAND 3+ VW BILATERAL 2023-03-08 14:54:00 Deann Mosley [facility] BASIC METABOLIC PANEL 2023-03-08 11:38:00 Deann Mosley [facility] (NA, K, CL, CO2, Medical Branch GLUCOSE, BUN, CREATININE, CA) CBC WITHOUT DIFF 2023-03-08 11:38:00 Deann Mosley [facility] CERVICAL SPINE WO 2023-03-07 19:52:00 Lorena Penaloza [facility] CONTRAST [facility] CT HEAD WO CONTRAST 2023-03-07 19:52:00 Lorena Penaloza [facility] CT THORAX WO CONTRAST 2023-03-07 19:52:00 Lorena Penaloza [facility] US FIRST 2023-03-07 16:34:08 Michael Mcknight [facility] TRIMESTER LESS THAN 14 [facility] WEEKS URINE DRUG (IMMUNOASSAY) 2023-03-07 15:52:00 Micheal Mcknight [facility] SCREEN URINALYSIS 2023-03-07 15:52:00 Michael Mcknight [facility] BASIC METABOLIC PANEL 2023-03-07 14:16:[address] [facility] (NA, K, CL, CO2, Medical Branch GLUCOSE, BUN, CREATININE, CA) CBC WITH DIFF 2023-03-07 14:16:00 Michael Mcknight [facility] URINE CULTURE 2023-02-26 23:32:00 [facility] COVID-19, INFLUENZA A&B, 2023-02-26 23:32:00 [facility] AND RSV QUALITATIVE RT-PCR URINALYSIS 2023-02-26 23:32:00 [facility] ASSIGNMENT OF BENEFITS 2023-02-15 22:59:54 Doctor Unassigned, No [facility] Name [facility] CONSENT/REFUSAL FOR 2023-02-15 22:56:23 Doctor Unassigned, No [facility] DIAGNOSIS AND TREATMENT Name [facility] URINE CULTURE 2023-02-15 02:50:00 Ifrah, [facility] US SINGLE LESS 2023-02-15 02:03:00 Skyler Rg [facility] THAN 14 WEEKS [facility] URINALYSIS 2023-02-15 [facility]:54[facility]INE 2023-02-15 00:54:00 Skyler Rg [facility] SCREEN [facility] POCT TEST 2023-01-18 13:47:00 Maicol Dumont [facility] POCT URINALYSIS W/O 2023-01-18 13:47:00 Maicol Dumont [facility] SPECIFIC GRAVITY [facility] ASSIGNMENT OF BENEFITS 2023-01-18 13:07:36 Doctor Unassigned, No [facility] Name [facility] D-DIMER 2022-12-15 02:19:00 Tricia Herbert Lluvia [facility] CT ABDOMEN PELVIS WO 2022-12-14 23:46:00 Tricia Herbert [facility] CONTRAST [facility] RAPID INFLUENZA A/B 2022-12-14 22:46:00 Tricia Herbert [facility] COVID-19 (ID NOW RAPID 2022-12-14 22:46:00 Tricia Herbert [facility] TESTING) [facility] POCT TEST 2022-12-14 21:51:00 Tricia Herbert [facility] LIPASE 2022-12-14 21:44:00 Tricia Herbert Lluvia [facility] MAGNESIUM 2022-12-14 21:44:00 Tricia Herbert Lluvia [facility] COMP. METABOLIC PANEL 2022-12-14 21:44:[address] [facility] ([id number]) [facility] CBC WITH DIFF 2022-12-14 21:44:00 Tricia Herbert [facility] URINALYSIS 2022-12-14 21:44:00 Tricia Herbert L[facility] CONSENT/REFUSAL FOR 2022-12-14 20:43:36 Doctor Unassigned, No [facility] DIAGNOSIS AND TREATMENT Name [facility] POCT TEST 2022-10-19 15:07:00 Vasu Hutson [facility] LIPASE 2022-10-19 13:44:00 Vasu Hutson [facility] COMP. METABOLIC PANEL 2022-10-19 13:44:[address] [facility] ([id number]) [facility] CBC WITH DIFF 2022-10-19 13:44:00 Vasu Hutson [facility] CONSENT/REFUSAL FOR 2022-10-19 13:14:52 Doctor Unassigned, No Un [facility] DIAGNOSIS AND TREATMENT Name Medical Branch URINE CULTURE 2022-07-22 19:12:00 Zaheer [facility] COMPREHENSIVE METABOLIC 2022-07-22 17:33:[facility]FR 2022-07-22 [facility]:33[facility]ONE PROTOCOL 2022-07-22 17:13:55 [facility] WITH PLATELET AND 2022-07-22 [facility]HENSIVE METABOLIC 2022-07-22 16:33:00 [facility]IM[facility] GFR 2022-07-22 16:33:[facility]EN AND 2022-07-22 16:22:00 [facility], WITH REFLEX TO CULTURE US PELVIS COMPLETE WITH 2022-05-29 02:07:00 Lorena Simpson [facility] TRANSVAGINAL [facility] CT ABDOMEN PELVIS W 2022-05-29 00:28:[address] [facility] CONTRAST [facility] COMP. METABOLIC PANEL 2022-05-29 00:07:00 Lorena Simpson [facility] ([id number]) [facility] CBC WITH DIFF 2022-05-29 00:07:00 Lorena Simpson [facility] URINALYSIS 2022-05-28 23:56:00 Calvin Lorena [facility] POCT TEST 2022-05-28 23:53:00 AufdLorena hurley [facility] CONSENT/REFUSAL FOR 2022-05-28 23:40:29 Doctor Unassigned, No Un [facility] DIAGNOSIS AND TREATMENT Name Medical Branch URINALYSIS 2022-03-26 13:06:00 [facility] HCG QUALITATIVE, URINE 2022-03-26 13:06:00 [facility] SCREEN URINALYSIS 2022-03-26 13:06:00 [facility] HCG QUALITATIVE, URINE 2022-03-26 13:06:00 [facility] SCREEN CBC WITH PLATELET AND 2022-03-26 12:46:00 [facility] DIFFERENTIAL COMPREHENSIVE METABOLIC 2022-03-26 12:46:00 [facility] PANEL ESTIMATED GFR 2022-03-26 12:46:00 [facility] CBC WITH PLATELET AND 2022-03-26 12:46:00 [facility] DIFFERENTIAL POCT TEST 2022-02-27 04:56:00 Afsaneh Car [facility] LIPASE 2022-02-27 04:04:00 Afsaneh Car [facility] TROPONIN I 2022-02-27 04:04:00 Afsaneh Car [facility] THYROID STIMULATING 2022-02-27 04:04:00 Afsaneh Car [facility] HORMONE [facility] COMP. METABOLIC PANEL 2022-02-27 04:04:00 Afsaneh Car [facility] ([id number]) [facility] CBC WITH DIFF 2022-02-27 04:04:00 Afsaneh Car [facility] URINALYSIS 2022-02-27 03:56:00 Afsaneh Car [facility] URINE DRUG (IMMUNOASSAY) 2022-02-27 03:56:00 Afsaneh Car Un [facility] SCREEN W/O REFLEX NOTICE OF PRIVACY 2022-02-27 03:05:57 Doctor Unassigned, No [facility] PRACTICES Name Medical Branch CONSENT/REFUSAL FOR 2022-02-27 03:04:00 Doctor Unassigned, No [facility] DIAGNOSIS AND TREATMENT Name Medical Branch COMPREHENSIVE METABOLIC 2022-02-18 05:17:00 Carlos Hernandez [facility] PANEL ESTIMATED GFR 2022-02-18 05:17:00 Carlos Hernandez spital COMPREHENSIVE METABOLIC 2022-02-18 04:38:00 Carlos Hernandez [facility] PANEL ESTIMATED GFR 2022-02-18 04:38:[address] ABDOMEN PELVIS WO 2022-02-18 04:17:[address] [facility] CONTRAST URINE CULTURE 2022-02-18 04:00:00 Carlos Hernandez spital CBC WITH PLATELET AND 2022-02-18 04:00:00 Carlos Hernandez [facility] DIFFERENTIAL COMPREHENSIVE METABOLIC 2022-02-18 04:00:00 Carlos Hernandez [facility] PANEL ESTIMATED GFR 2022-02-18 04:00:00 Carlos Hernandez spital HCG QUALITATIVE, URINE 2022-02-18 02:50:00 [facility] 2022-02-18 02:50:00 Carlos Hernandez spital RAPID STREP SCREEN FOR 2020-12-31 07:13:00 Akiko Dunaway [facility] GROUP A Medical Branch NOTICE OF PRIVACY 2020-12-31 06:34:54 Doctor Unassigned, No [facility] PRACTICES Name Medical Branch CONSENT/REFUSAL FOR 2020-12-31 06:34:35 [facility] Name [facility] CT HEAD WO CONTRAST 2020-11-20 18:18:22 John Rivera [facility] POCT TEST 2020-11-20 17:50:00 John Rivera [facility] BASIC METABOLIC PANEL 2020-11-20 17:24:[address] [facility] (NA, K, CL, CO2, Medical Branch GLUCOSE, BUN, CREATININE, CA) CBC WITH DIFF 2020-11-20 17:24:00 John Rivera [facility] CONSENT/REFUSAL FOR 2020-11-20 16:36:59 Doctor [facility]igned, No [facility] POCT TEST 2020-09-27 02:56:00 Tricia Herbert [facility] ASSIGNMENT OF BENEFITS 2020-09-27 01:35:31 Doctor Unassigned, No [facility] CONSENT/REFUSAL FOR 2020-09-26 23:26:24 Doctor Unassigned, No [facility] URINALYSIS 2020-07-17 14:08:00 Wild Cowart [facility] POCT TEST 2020-07-17 14:08:00 Wild Cowart [facility] CBC WITH DIFF 2020-07-17 12:25:00 Wild Cowart [facility] NOTICE OF PRIVACY 2020-07-17 11:48:39 Doctor Unassigned, No [facility] PRACTICES [facility] CONSENT/REFUSAL FOR 2020-07-17 11:44:41 Doctor Unassigned, No [facility] Plan of Care Planned Activity Planned Date Details Comments Source Future Scheduled 2023-04-05 [facility] 10:[facility]44 (#1) [code = COVID-19 VACCINE (#1)] Future Scheduled 2023-04-05 [facility] 10:31:44 screening (procedure) [code = 864433402] Future Scheduled 2023-04-05 [facility] Test 10:31:44 malignant neoplasm of cervix (procedure) [code = 472098651] Future Scheduled 2023-04-05 [facility]ACCINE [facility] 10:31:44 (#1) [code = INFLUENZA VACCINE (#1)] Future Scheduled 2023-04-05 [facility] 10:31:44 (#1) [code = COVID-19 VACCINE (#1)] Future Scheduled 2023-04-05 [facility] 10:31:44 screening (procedure) [code = 367316563] Future Scheduled 2023-04-05 [facility] Test 10:31:44 malignant neoplasm of cervix (procedure) [code = 670722382] Future Scheduled 2023-04-05 [facility]ACCINE [facility] 10:31:44 (#1) [code = INFLUENZA VACCINE (#1)] Future Scheduled 2023-04-03 COVID-[address] [facility] Test 09:07:22 (#1) [code = COVID-19 VACCINE (#1)] Future Scheduled 2023-04-03 [facility] 09:07:22 screening (procedure) [code = 311520896] Future Scheduled 2023-04-03 [facility] Test 09:07:22 malignant neoplasm of cervix (procedure) [code = 076480825] Future Scheduled 2023-04-03 [facility]ACCINE [facility] 09:07:22 (#1) [code = INFLUENZA VACCINE (#1)] Future Scheduled 2023-03-04 COVID-[address] [facility] Test 06:32:21 (#1) [code = COVID-19 VACCINE (#1)] Future Scheduled 2023-03-04 [facility] 06:32:21 screening (procedure) [code = 941431801] Future Scheduled 2023-03-04 [facility] Test 06:32:21 malignant neoplasm of cervix (procedure) [code = 529611915] Future Scheduled 2023-03-04 [facility]INE [facility] 06:32:21 (#1) [code = INFLUENZA VACCINE (#1)] Future Scheduled 2023-03-04 COVID-[address] [facility] Test 06:32:21 (#1) [code = COVID-19 VACCINE (#1)] Future Scheduled 2023-03-04 [facility] 06:32:21 screening (procedure) [code = 836389753] Future Scheduled 2023-03-04 [facility] Test 06:32:21 malignant neoplasm of cervix (procedure) [code = 369607710] Future Scheduled 2023-03-04 [facility]INE [facility] 06:32:21 (#1) [code = INFLUENZA VACCINE (#1)] Future Scheduled 2023-01-04 COVID-[address] [facility] Test 20:06:27 (#1) [code = COVID-19 VACCINE (#1)] Future Scheduled 2023-01-04 [facility] 20:06:27 screening (procedure) [code = 223356303] Future Scheduled 2023-01-04 [facility] Test 20:06:27 malignant neoplasm of cervix (procedure) [code = 300626514] Future Scheduled 2023-01-04 [facility]ACCINE [facility] 20:06:27 [code = INFLUENZA VACCINE] Future Scheduled 2023-01-04 COVID-[address] [facility] Test 20:06:27 (#1) [code = COVID-19 VACCINE (#1)] Future Scheduled 2023-01-04 [facility] 20:06:27 screening (procedure) [code = 488194429] Future Scheduled 2023-01-04 [facility] Test 20:06:27 malignant neoplasm of cervix (procedure) [code = 079039689] Future Scheduled 2023-01-04 [facility]ACCINE [facility] 20:06:27 [code = INFLUENZA VACCINE] Future Scheduled 2022-10-03 COVID-[address] [facility] Test 02:09:31 (#1) [code = COVID-19 VACCINE (#1)] Future Scheduled 2022-10-03 [facility] 02:09:31 screening (procedure) [code = 640218394] Future Scheduled 2022-10-03 [facility] Test 02:09:31 malignant neoplasm of cervix (procedure) [code = 529662519] Future Scheduled 2022-10-03 [facility]ACCINE [facility] 02:09:31 [code = INFLUENZA VACCINE] Future Scheduled 2022-10-03 COVID-[address] [facility] Test 02:09:31 (#1) [code = COVID-19 VACCINE (#1)] Future Scheduled 2022-10-03 [facility] 02:09:31 screening (procedure) [code = 050675890] Future Scheduled 2022-10-03 [facility] Test 02:09:31 malignant neoplasm of cervix (procedure) [code = 567038632] Future Scheduled 2022-10-03 [facility]ACCINE [facility] 02:09:31 [code = INFLUENZA VACCINE] Future Scheduled 2022-10-03 COVID-[address] [facility] Test 02:09:31 (#1) [code = COVID-19 VACCINE (#1)] Future Scheduled 2022-10-03 [facility] 02:09:31 screening (procedure) [code = 834422282] Future Scheduled 2022-10-03 [facility] 02:09:31 malignant neoplasm of cervix (procedure) [code = 267713792] Future Scheduled 2022-10-03 [facility] 02:09:31 [code = INFLUENZA VACCINE] Future Scheduled 2022-09-07 [facility] 16:46:36 (#1) [code = COVID-19 VACCINE (#1)] Future Scheduled 2022-09-07 [facility] 16:46:36 screening (procedure) [code = 965587153] Future Scheduled 2022-09-07 [facility] 16:46:36 malignant neoplasm of cervix (procedure) [code = 250758396] Future Scheduled 2022-09-07 [facility] 16:46:36 [code = INFLUENZA VACCINE] Future Scheduled 2022-09-07 COVID-[address] [facility] [facility] 16:46:36 (#1) [code = COVID-19 VACCINE (#1)] Future Scheduled 2022-09-07 [facility] 16:46:36 screening (procedure) [code = 541648418] Future Scheduled 2022-09-07 [facility] 16:46:36 malignant neoplasm of cervix (procedure) [code = 802878538] Future Scheduled 2022-09-07 [facility] 16:46:36 [code = INFLUENZA VACCINE] Future Scheduled 2022-09-07 [facility] [facility] [facility] 16:46:36 (#1) [code = COVID-19 VACCINE (#1)] Future Scheduled 2022-09-07 [facility] 16:46:36 screening (procedure) [code = 987204086] Future Scheduled 2022-09-07 [facility] 16:46:36 malignant neoplasm of cervix (procedure) [code = 360132546] Future Scheduled 2022-09-07 [facility] 16:46:36 [code = INFLUENZA VACCINE] Future Scheduled 2022-07-30 COVID-[address] [facility] 22:48:12 (#1) [code = COVID-19 VACCINE (#1)] Future Scheduled 2022-07-30 [facility] 22:48:12 screening (procedure) [code = 258844185] Future Scheduled 2022-07-30 [facility] 22:48:12 malignant neoplasm of cervix (procedure) [code = 106714185] Future Scheduled 2022-07-30 [facility] 22:48:12 [code = INFLUENZA VACCINE] Future Scheduled 2022-07-23 COVID-[address] [facility] [facility] 22:23:51 (#1) [code = COVID-19 VACCINE (#1)] Future Scheduled 2022-07-23 [facility] 22:23:51 screening (procedure) [code = 127398616] Future Scheduled 2022-07-23 [facility] 22:23:51 malignant neoplasm of cervix (procedure) [code = 775169212] Future Scheduled 2022-07-23 [facility] 22:23:51 [code = INFLUENZA VACCINE] Future Scheduled 2022-07-23 COVID-[address] [facility] [facility] 14:05:40 (#1) [code = COVID-19 VACCINE (#1)] Future Scheduled 2022-07-23 [facility] 14:05:40 screening (procedure) [code = 088745844] Future Scheduled 2022-07-23 [facility] 14:05:40 malignant neoplasm of cervix (procedure) [code = 581969453] Future Scheduled 2022-07-23 [facility] 14:05:40 [code = INFLUENZA VACCINE] Future Scheduled 2022-07-16 COVID-[address] [facility] 00:01:34 (#1) [code = COVID-19 VACCINE (#1)] Future Scheduled 2022-07-16 [facility] 00:01:34 screening (procedure) [code = 885898783] Future Scheduled 2022-07-16 [facility] 00:01:34 malignant neoplasm of cervix (procedure) [code = 782090427] Future Scheduled 2022-07-16 [facility] 00:01:34 [code = INFLUENZA VACCINE] Future Scheduled 2022-06-20 [facility] 00:27:46 (#1) [code = COVID-19 VACCINE (#1)] Future Scheduled 2022-06-20 [facility] 00:27:46 screening (procedure) [code = 516824510] Future Scheduled 2022-06-20 [facility] 00:27:46 malignant neoplasm of cervix (procedure) [code = 213331781] Future Scheduled 2022-06-20 [facility] 00:27:46 [code = INFLUENZA VACCINE] Future Scheduled 2022-06-12 [facility] 16:29:41 (#1) [code = COVID-19 VACCINE (#1)] Future Scheduled 2022-06-12 [facility] 16:29:41 screening (procedure) [code = 245271900] Future Scheduled 2022-06-12 [facility] 16:29:41 [code = INFLUENZA VACCINE] Future Scheduled 2022-04-29 [facility] B [facility] 09:57:18 VACCINES (1 of 3 - 3-dose series) [code = HEPATITIS B VACCINES (1 of 3 - 3-dose series)] Future Scheduled 2022-04-29 [facility] 09:57:18 (#1) [code = COVID-19 VACCINE (#1)] Future Scheduled 2022-04-29 [facility] 09:57:18 screening (procedure) [code = 818100917] Future Scheduled 2022-04-29 [facility] 09:57:18 malignant neoplasm of cervix (procedure) [code = 142879111] Future Scheduled 2022-04-29 [facility] 09:57:18 [code = INFLUENZA VACCINE] Future Scheduled 2022-03-26 [facility] 18:56:00 VACCINES (1 of 3 - 3-dose series) [code = HEPATITIS B VACCINES (1 of 3 - 3-dose series)] Future Scheduled 2022-03-26 [facility] (#1) [code = COVID-19 VACCINE (#1)] Future Scheduled 2022-03-26 [facility] 18:56:00 screening (procedure) [code = 373648405] Future Scheduled 2022-03-26 [facility] 18:56:00 malignant neoplasm of cervix (procedure) [code = 412594566] Future Scheduled 2022-03-26 INFLUENZA VACCINE [facility] Test 18:56:00 [code = INFLUENZA VACCINE] Future Scheduled 2022-03-26 [facility] 18:56:00 VACCINES (1 of 3 - 3-dose series) [code = HEPATITIS B VACCINES (1 of 3 - 3-dose series)] Future Scheduled 2022-03-26 [facility] 18:56:00 (#1) [code = COVID-19 VACCINE (#1)] Future Scheduled 2022-03-26 [facility] 18:56:00 screening (procedure) [code = 978133012] Future Scheduled 2022-03-[address] [facility] Test 18:56:00 malignant neoplasm of cervix (procedure) [code = 141332006] Future Scheduled 2022-03-26 [facility]UENZA VACCINE [facility] 18:56:00 [code = INFLUENZA VACCINE] Future Scheduled 2022-03-26 [facility] 18:56:00 VACCINES (1 of 3 - 3-dose series) [code = HEPATITIS B VACCINES (1 of 3 - 3-dose series)] Future Scheduled 2022-03-26 COVID-[address] [facility] Test 18:56:00 (#1) [code = COVID-19 VACCINE (#1)] Future Scheduled 2022-03-26 [facility] 18:56:00 screening (procedure) [code = 078240566] Future Scheduled 2022-03-26 [facility] 18:56:00 malignant neoplasm of cervix (procedure) [code = 583383930] Future Scheduled 2022-03-26 [facility] 18:56:00 [code = INFLUENZA VACCINE] Future Scheduled 2022-03-26 [facility] 08:33:14 VACCINES (1 of 3 - 3-dose series) [code = HEPATITIS B VACCINES (1 of 3 - 3-dose series)] Future Scheduled 2022-03-26 [facility]-[address] [facility] 08:33:14 (#1) [code = COVID-19 VACCINE (#1)] Future Scheduled 2022-03-26 [facility] 08:33:14 screening (procedure) [code = 734983382] Future Scheduled 2022-03-26 [facility] 08:33:14 malignant neoplasm of cervix (procedure) [code = 391650575] Future Scheduled 2022-03-26 [facility] 08:33:14 [code = INFLUENZA VACCINE] Future Scheduled COVID-[address] [facility] (1) [code = COVID-19 VACCINE (1)] Future Scheduled [facility] screening (procedure) [code = 296679883] Future Scheduled [facility] malignant neoplasm of cervix (procedure) [code = 900310983] Future Scheduled [facility] [code = INFLUENZA VACCINE] Encounters Start End Encounter Admission Attending Care Care Encounter Source Date/Time Date/Time Type Type Clinicians Facility Department ID 2023-01-04 Outpatient [facility] [id number] [place] 10:32:22 [id number] [facility] 2021-04-28 Emergency [facility] [id number] Univers 06:08:31 ity [facility] 2021-04-27 Emergency [facility] [id number] Univers 21:27:31 ity [facility] 2021-04-27 Emergency [facility] [id number] Univers 10:13:04 ity [facility] 2021-04-26 Emergency [facility] [id number] Univers 18:11:30 ity [facility] 2023-03-24 2023-03-24 Outpatient [facility] PRIV PRIV 145 [id number] [facility] 00:00:00 00:00:00 Tj [id number] [facility] 2023-03-24 2023-03-24 Outpatient [facility]_ PRIV PRIV 145 [id number] [facility] 00:00:00 00:00:00 Tj [id number] [facility] 2023-03-17 2023-03-17 Outpatient [facility]_ PRIV PRIV 145 [id number] [facility] 00:00:00 00:00:00 LenorainocenciaAman [id number] [facility] 2023-03-07 2023-03-08 Outpatient Randal HOOKS [facility] STR [id number] Univers 14:14:00 20:00:00 RICKY khan [facility] 2023-03-07 2023-03-08 Emergency Lincoln TROY 1.2.840.114 10 [id number] Univers 14:14:00 20:00:00 Ricky LAIRD 350.1.13.10 [facility] 4.2.7.2.686 [facility] [id number] [place] [address] [address] 2023-03-07 2023-03-07 Emergency X [facility] ERT [id number] Univers 08:49:00 13:01:00 MICHAEL khan [facility] 2023-03-07 2023-03-07 Emergency [facility] 1.2.569.354 [id number] [id number] Univers 08:49:00 13:01:00 Michael HUMPHREYS 350.1.13.10 [facility] 4.2.7.2.686 [facility] [id number] [place] [address] [address] 2023-03-04 2023-03-04 Outpatient [facility]_ PRIV PRIV 145 [id number] [facility] 00:00:00 00:00:00 TaoAgnes [id number] [facility] 2023-03-03 2023-03-03 Outpatient [facility]_ PRIV PRIV 145 [id number] [facility] 00:00:00 00:00:00 Tj [id number] [facility] 2023-02-26 2023-02-26 Emergency Gokal, 1.2.840.1 [id number] 2099 [id number] [facility] 18:13:00 19:48:[address] [facility] 3.430.2.7 Hospit a .3.036457 l .8 2023-02-26 2023-02-26 Emergency [facility], 1.2.840.1 [id number] 2099 [id number] [facility] 18:13:00 19:48:[address] [facility] 3.430.2.7 Hospit a .3.897674 l .8 2023-02-26 2023-02-26 Travel 1.2.840.1 1.2.560.044 6514 [id number] [facility] 00:00:00 00:00:[address] 3.430.2.7 0.2.7.3.698 Ho spita .3.962127 084.8 l .8 2023-02-26 2023-02-26 Travel 1.2.840.1 1.2.038.829 1936 [id number] [facility] 00:00:00 00:00:[address] 3.430.2.7 0.2.7.3.698 Ho spita .3.983324 084.8 l .8 2023-02-18 2023-02-18 Outpatient [facility]_ PRIV PRIV 145 [id number] [facility] 00:00:00 00:00:00 Tj [id number] [facility] 2023-02-18 2023-02-18 Outpatient [facility]_ PRIV PRIV 145 [id number] [facility] 00:00:00 00:00:00 Bruce_Agnes [id number] [facility] 2023-02-17 2023-02-17 Telephone [facility] 1.2.840.114 10 [id number] [facility] 00:00:00 00:00:00 Maicol Hurley [employer] 350.1.13.10 ity of [facility] 4.2.7.2.686 Ryan as MATERNAL [id number] Med ical & CHILD [address] [facility] 2023-02-15 2023-02-15 Emergency X HERI, [facility] ERT [id number] Univers 18:06:00 19:32:00 MENDY bibinirali [facility] 2023-02-15 2023-02-15 [facility] 1.2.604.723 [id number] Univers 18:06:00 19:32:00 Mendy LITCHFIELD 350.1.13.10 i [facility] 4.2.7.2.686 [facility] [id number] [address] 2023-02-15 2023-02-15 Outpatient [facility]_ PRIV PRIV 145 [id number] [facility] 00:00:00 00:00:00 Tj [id number] [facility] 2023-02-14 2023-02-14 Emergency Ifrah, 1.2.840.1 [id number] [facility] 19:44:00 22:11:[address] [facility] 3.430.2.7 Ho spita .3.375582 l .8 2023-02-14 2023-02-14 Emergency Ifrah, 1.2.840.1 [id number] 2 [id number] [facility] 19:44:00 22:11:[address] [facility] 3.430.2.7 Ho spita .3.377657 l .8 2023-02-01 2023-02-01 Outpatient R TIM [facility] [id number] Univers 10:30:00 10:30:00 MAICOL joshi [facility] 2023-01-29 2023-01-29 Outpatient [facility]_ PRIV PRIV 145 [id number] [facility] 00:00:00 00:00:00 Tj [id number] [facility] 2023-01-22 2023-01-22 [facility]phone [facility] 1.2.840.114 10 [id number] [facility] 00:00:00 00:00:00 Maicol Hurley [employer] 350.1.13.10 ity of [facility] 4.2.7.2.686 Ryan as MATERNAL [id number] [facility] & CHILD [address] [place] [address] 2023-01-21 2023-01-21 Telephone [facility] 1.2.840.114 10 [id number] Univers 00:00:00 00:00:00 Maicol C [employer] 350.1.13.10 ity of [facility] 4.2.7.2.686 Ryan as MATERNAL [id number] [facility] & CHILD [address] [place] [address] 2023-01-18 2023-01-18 [facility] [id number] Univers 08:30:00 10:14:57 MAICOL ity o f [facility] 2023-01-18 2023-01-18 Initial [facility] 1.2.602.195 1052 [id number] Univers 08:30:00 10:14:57 Maicol C [employer] 350.1.13.10 ity of Visit [facility] 4.2.7.2.686 Ryan as MATERNAL [id number] [facility] & CHILD [address] [place] [address] 2023-01-18 2023-01-18 Orders Doctor RANDAL 1.2.840.114 [id number] Univers 00:00:00 00:00:00 Only Unassigned, EITAN 350.1.13.10 ity of [place] [facility] 4.2.7.2.686 Ryan as [id number] [address] 2022-12-26 2022-12-26 Outpatient [facility]_ PRIV PRIV 145 [id number] [facility] 00:00:00 00:00:00 Bruce_Agnes [id number] [facility] 2022-12-14 2022-12-14 Emergency X Tricia HERBERT [facility] ERT [id number] Univers 15:55:00 23:49:00 ity of [facility] 2022-12-14 2022-12-14 Emergency Tricia Herbert [facility] 1.2.840.114 10 [id number] Univers 15:55:00 23:49:00 Lluvia LITCHFIELD 350.1.13.10 i ty [facility] 4.2.7.2.686 [facility] [id number] [place] [address] [address] 2022-10-19 2022-10-19 Emergency X LEAH, [facility] ERT [id number] Univers 08:24:00 11:10:00 FOLUSHO ity of [facility] 2022-10-19 2022-10-19 Emergency [facility] 1.2.840.114 10 [id number] Univers 08:24:00 11:10:00 John HUMPHREYS 350.1.13.10 ity of [place] 4.2.7.2.686 [facility] [id number] [place] [address] [address] 2022-10-19 2022-10-19 Patient Doctor RANDAL 1.2.840.114 [id number] Univers 00:00:00 00:00:00 Secure Msg Unassigned, EITAN 350.1.13.10 ity of [facility] 4.2.7.2.686 Ryan [id number] [place] [address] [address] 2022-07-22 2022-07-22 Emergency Zaheer, 1.2.840.1 [id number] 747 [id number] [facility] 10:01:00 13:05:00 Nash Conteh 83205.1.1 054 s t 3.430.2.7 Hospit a .3.430255 l .8 2022-07-22 2022-07-22 Emergency Zaheer, 1.2.840.1 [id number] 068 [id number] [facility] 10:01:00 13:05:00 Nash Conteh 81997.1.1 054 s t 3.430.2.7 Hospit a .3.532906 l .8 2022-07-22 2022-07-22 Travel 1.2.840.1 1.2.937.426 1463 [id number] [facility] 00:00:00 00:00:[address] 3.430.2.7 0.2.7.3.698 Ho spita .3.298039 084.8 l .8 2022-07-22 2022-07-22 Travel 1.2.840.1 1.2.760.727 4019 280734 [facility] 00:00:00 00:00:[address] 3.430.2.7 0.2.7.3.698 Ho spita .3.261270 084.8 l .8 2022-05-28 2022-05-28 Emergency X HERI [facility] ERT [id number] [facility] 17:47:00 22:35:00 MENDY [facility] 2022-05-28 2022-05-28 Emergency AumieshaerLorena ambriz [facility] 1.2.840.114 [id number] [facility] 17:47:00 22:35:00 [facility] 350.1.13.10 [facility] 4.2.7.2.686 [facility] [id number] [address] 2022-04-22 2022-04-22 Emergency E AZNAUROVA-A MHBL MHBL 7500 MHBL 08:53:00 14:18:00 IZA LEBLANC 2022-03-26 2022-03-26 Emergency Silva-Eulalia 1.2.840.1 [id number] [facility]i 07:24:00 08:46:[address] 3.430.2.7 Hospit a .3.972292 l .8 2022-03-26 2022-03-26 Travel 1.2.840.1 1.2.994.453 3283 [id number] [facility] 00:00:00 00:00:[address] 3.430.2.7 0.2.7.3.698 Ho spita .3.439831 084.8 l .8 2022-02-26 2022-02-27 Emergency X JOSEP [facility] ERT [id number] Univers 22:26:00 00:44:00 AFSANEH [facility] 2022-02-26 2022-02-27 Emergency Josep [facility] 1.2.815.869 [id number] [facility] 22:26:00 00:44:00 Afsaneh HUMPHREYS 350.1.13.10 [facility] 4.2.7.2.686 [facility] [id number] [address] 2022-02-17 2022-02-18 Emergency Nuszen, 1.2.840.1 [id number] 2099 [id number] [facility] 21:45:00 01:49:[address]453[address]1.[address] 3.430.2.7 Hospit a .3.748710 l .8 2022-02-17 2022-02-17 Travel 1.2.840.1 1.2.587.930 2368 [id number] [facility] 00:00:00 00:00:[address] 3.430.2.7 0.2.7.3.698 Ho spita .3.455458 084.8 l .8 2020-12-31 2020-12-31 Emergency [facility], [facility] 1.2.840.114 [id number] 02:02:00 03:26:00 Akiko Humphreys 350.1.13.10 [place] 4.[address] [place] [address] [id number] [facility] 2020-12-31 2020-12-31 Emergency [facility], [facility] 1.2.840.114 [id number] [facility] 02:02:00 03:26:00 Akiko Humphreys 350.1.13.10 i ty of [place] 4.2.7.2.[address] [place] [id number] 2020-11-20 2020-11-20 Emergency Udall, [facility] 1.2.620.431 [id number] 11:47:00 15:01:00 John Olivo [place] 350.1.13.10 [place] 4[address]7.[address] [place] [address] [id number] [facility] 2020-11-20 2020-11-20 Emergency Rivera, [facility] 1.2.084.978 [id number] [facility] 11:47:00 15:01:00 John S [place] 350.1.13.10 i ty of [place] 4.2.7.2.686 [facility] [id number] [place] [address] [address] 2020-09-26 2020-09-26 Emergency Tricia Herbert [facility] 1.2.840.114 [id number] 18:51:00 22:39:00 Lluvia [place] 350.1.13.10 [place] 4[address] [place] [address] [id number] [facility] 2020-09-26 2020-09-26 Emergency Tricia Herbert [facility] 1.2.840.114 [id number] Univers 18:51:00 22:39:00 Lluvia Imperial 350.1.13.10 i ty of [place] 4.2.7.2.686 [facility] [id number] [address] 2020-08-06 2020-08-06 Emergency Kami RIVERA [facility] ERT [id number] Univers 10:13:00 12:49:00 JOHN khan [facility] 2020-08-01 2020-08-03 Inpatient [facility] [id number] [facility] 09:14:00 03:39:32 [facility] 2020-07-17 2020-07-17 Emergency Wild Cowart [facility] 1.2.840 .114 [id number] 05:53:00 08:59:00 Dani Kauffman 350.1.13.[address] [place] [address] [place] [address] [id number] [facility] 2020-07-17 2020-07-17 Emergency Wild Cowart [facility] 1.2.840 .114 [id number] [facility] 05:53:00 08:59:00 Dani Kauffman 350.1.13.10 ity of [place] 4.2.7.2.[address] [place] [id number] Results Test Description Test Time Test Comments Results Result Comments Source Influenza virus A and B and 2023-02-26 19:13:47 Test Item Value Reference Range Interpretation Comme nts SARS-CoV-2 (COVID-19) RNA [Presence] in Respiratory specimen by Not detected ROSCOE with probe detection (test code = 98761-4) Whether patient resides in a congregate care setting (test code = N o 78746-1) Date and time of symptom onset (test code = 36339-2) Unknown Whether the patient was hospitalized for condition of interest No (test code = 70387-1) Whether the patient was admitted to intensive care unit (ICU) for N o condition of interest (test code = 36901-9) Whether patient is employed in a healthcare setting (test code = No 02602-6) Whether the patient has symptoms related to condition of interest N o (test code = 53576-0) status (test code = 45416-3) No DAVID UATSDIN WESTPOCT URINALYSIS W/O SPECIFIC [id number] 13:48:00 Test Item Value Reference Range Interpretation [...] code = 3257) 50 Negative - Negative [id number] 13:47:00 Test Item Value Reference Range Interpretation Comments POCT PREG (test code = 1605) Positive On board controls acceptable with C Yes Line (test code = 3574) POCT PREG LOT # (test code = 3575) POCT PREG TEST DATE (test code = 3576) [id number] 03:05:08 Test Item Value Reference Interpretation Comments Range D-DIMER (test code = See_Comment [Autom ated [id number]) message] The system which generated this result [...] diagnosis. Lab Interpretation Normal (test code = 96468-2) [facility] 22:22:54 Test Item Value Reference Range Interpretation Comments MAGNESIUM (test code = 2914224311) 1.8 mg/dL 1.7-2.4 Lab Interpretation (test code = Normal 70167-1) [facility] (90523)2022-12-14 22:22:34 Test Item Value Reference Range Interpretation Comments NA (test code = 133 mmol/L 135-145 L 0872672972) K (test code = 4.6 mmol/L 3.5-5.0 3035358662) CL (test code = 101 mmol/L 98-108 3035042141) CO2 TOTAL (test code = 25 mmol/L 23-31 3372495115) AGAP (test code = 7 2-16 4091872249) BUN (test code = 9 mg/dL 7-23 8684218217) GLUCOSE (test code = 99 mg/dL 70-110 8257725480) CREATININE (test code = 0.61 mg/dL 0.50-1.04 2056682135) TOTAL BILI (test code = 1.2 mg/dL 0.1-1.1 H 4143188337) CALCIUM (test code = 9.2 mg/dL 8.6-10.6 8794677202) T PROTEIN (test code = 7.3 g/dL 6.3-8.2 6400844272) ALBUMIN (test code = 4.2 g/dL 3.5-5.0 8544529147) ALK PHOS (test code = 59 U/L 34-122 3600250397) ALTv (test code = 21 U/L 5-35 1742-6) AST(SGOT) (test code = 15 U/L 13-40 8803932668) eGFR (test code = 116.8 mL/min/1.73m2 6717424270) TOBI (test code = TOBI) Association of [...] tests). Lab Interpretation Abnormal (test code = 61560-1) [id number] Test Item Value Reference Range Interpretation Comments LIPASE (test code = [id number]) 51 U/L 0-220 Lab Interpretation (test code = Normal 34597-0) [id number] 22:13:57 Test Item Value Reference Range Interpretation Comments WBC (test code = 14.83 See_Comment H [Automated 7890-2) message] The system which generated this result [...] RDW-SD (test code = 44.9 fL 39.0-49.9 42373-1) RDW-CV (test code = 13.4 % 12.0-15.5 788-0) PLT (test code = 337 See_Comment [Automated 777-3) message] The system which generated this result transmit jd reference range : 166 - 358 10*3/ ?L. The reference range was not u sed to interpret th is result as normal/abnormal . MPV (test code = 10.2 fL 9.5-12.9 87333-1) NRBC/100 WBC (test 0.0 See_Comment [Automat ed code = [id number]) message] The system which generated this result transmit jd reference range : 0.0 - 10.0 /100 WBCs. The reference range was not used to interpret this result as normal/abnormal . NRBC x10^3 (test code See_Comment [Auto mated = [id number]) message] The system which generated this result transmit jd reference range : 10*3/?L. The reference range was not used to interpret this result as normal/abnormal . GRAN MAT (NEUT) % 89.1 % (test code = 770-8) IMM GRAN % (test code 0.50 % = 9290820384) LYMPH % (test code = 5.9 % 736-9) MONO % (test code = 3.8 % 5905-5) EOS % (test code = 0.5 % 713-8) BASO % (test code = 0.2 % 706-2) GRAN MAT x10^3(ANC) 13.21 10*3/uL 1.88-7.09 H (test code = [id number]) IMM GRAN x10^3 (test 0.08 10*3/uL 0.00-0.06 H code = [id number]) LYMPH x10^3 (test code 0.87 10*3/uL 1.32-3.29 L = 731-0) MONO x10^3 (test code 0.57 10*3/uL 0.33-0.92 = 742-7) EOS x10^3 (test code = 0.07 10*3/uL 0.03-0.39 711-2) BASO x10^3 (test code 0.03 10*3/uL 0.01-0.07 = 704-7) Lab Interpretation Abnormal (test code = 89364-3) [facility] [id number] 21:51:00 Test Item Value Reference Range Interpretation Comments POCT PREG (test code = 1605) Negative On board controls acceptable with Yes C Line (test code = 3574) POCT PREG LOT # (test code = 727080 6764) POCT PREG TEST DATE (test -2023 code = 3576) Lab Interpretation (test code = Normal 54734-8) [facility] [id number] 15:07:00 Test Item Value Reference Range Interpretation Comments POCT PREG (test code = 1605) negative On board controls acceptable with present C Line (test code = 3574) POCT PREG LOT # (test code = 3575) [id number] POCT PREG TEST DATE (test 02/03/2024 code = 3576) Lab Interpretation (test code = Normal 41748-5) [facility]. METABOLIC PANEL (82750)2022-05-29 00:30:52 Test Item Value Reference Range Interpretation Comments NA (test code = 137 mmol/L 135-145 3567870892) K (test code = 3.9 mmol/L 3.5-5.0 5720566682) CL (test code = 107 mmol/L 98-108 2313802520) CO2 TOTAL (test code = 21 mmol/L 23-31 L 2362559160) AGAP (test code = 2-16 1963646736) BUN (test code = 9 mg/dL 7-23 6538596676) GLUCOSE (test code = 106 mg/dL 70-110 6523843206) CREATININE (test code = 0.81 mg/dL 0.50-1.04 0967217906) TOTAL BILI (test code = 0.4 mg/dL 0.1-1.2 5785443374) CALCIUM (test code = 8.7 mg/dL 8.6-10.6 4873442954) T PROTEIN (test code = 6.8 g/dL 6.3-8.2 2617441288) ALBUMIN (test code = 4.2 g/dL 3.5-5.0 9478692087) ALK PHOS (test code = 40 U/L 34-122 3414080412) ALTv (test code = 19 U/L 5-35 1742-6) AST(SGOT) (test code = 15 U/L 13-40 0434901256) eGFR (test code = mL/min/1.73m2 6687932749) TOBI (test code = TOBI) Association of [...] tests). Lab Interpretation Abnormal (test code = 96832-3) [facility] WITH [id number] 00:15:52 Test Item Value Reference Range Interpretation Comments WBC (test code = See_Comment [Automated message] 6690-2) The system [employer] generated this result transmitted ref erence range: 4.30 - 1 1.10 10*3/?L. The re ference range was not u sed to interpret this result as normal/abnor mal. RBC (test code = See_Comment [Automated message] 789-8) The system [employer] generated this result transmitted ref erence range: [...] RDW-SD (test code 42.8 fL 39.0-49.9 = 94405-3) RDW-CV (test code 13.1 % 12.0-15.5 = 788-0) PLT (test code = See_Comment [Automated message] 777-3) The system [employer] generated this result transmitted ref erence range: 166 - 35 8 10*3/?L. The re ference range was not u sed to interpret this result as normal/abnor mal. MPV (test code = 9.5 fL 9.5-12.9 71165-8) NRBC/100 WBC (test See_Comment [Automat ed message] code = 3488214136) The syste m which generated this result transmitted ref erence range: 0.0 - 10 .0 /100 WBCs. The refer ence range was not u sed to interpret this result as normal/abnor mal. NRBC x10^3 (test See_Comment [Automated message] code = 4929202659) The syste m which generated this result transmitted ref erence range: 10*3/?L. The reference range was not used to interpr et this result as normal/abnormal . GRAN MAT (NEUT) % 59.3 % (test code = 770-8) IMM GRAN % (test 0.10 % code = 7496145112) LYMPH % (test code 29.5 % = 736-9) MONO % (test code 7.1 % = 5905-5) EOS % (test code = 3.1 % 713-8) BASO % (test code 0.9 % = 706-2) GRAN MAT 4.17 10*3/uL 1.88-7.09 x10^3(ANC) (test code = 2269832433) IMM GRAN x10^3 0.00-0.06 (test code = 6281361841) LYMPH x10^3 (test 2.08 10*3/uL 1.32-3.29 code = 731-0) MONO x10^3 (test 0.50 10*3/uL 0.33-0.92 code = 742-7) EOS x10^3 (test 0.22 10*3/uL 0.03-0.39 code = 711-2) BASO x10^3 (test 0.06 10*3/uL 0.01-0.07 code = 704-7) [id number] 23:53:00 Test Item Value Reference Range Interpretation Comments POCT PREG (test code = 1605) negative On board controls acceptable with present C Line (test code = 3574) POCT PREG LOT # (test code = 3575) [id number] POCT PREG TEST DATE (test 09/26/2023 code = 3576) Lab Interpretation (test code = Normal 02905-2) [facility] [id number] 05:23:28 Test Item Value Reference Range Interpretation Comments TSH (test code = See_Comment [Automated message] 0702681711) The system [employer] generated this result transmitted ref erence range: 0.45 - 4 .70 mIU/L. The refe rence range was not u sed to interpret this result as normal/abnor mal. Lab Interpretation (test Normal code = 29719-9) [facility] [id number] 05:05:05 Test Item Value Reference Interpretation Comments Range TROPONIN I (test 0.006 ng/mL See_Comment [Automated code = 7247420196) message] The system which generated this result [...] biotin. Lab Interpretation Normal (test code = 19404-3) [facility] [id number] 04:56:00 Test Item Value Reference Range Interpretation Comments POCT PREG (test code = 1605) negative Lab Interpretation (test code = Normal 48659-9) [facility] METABOLIC PANEL (11940)2022-02-27 04:46:44 Test Item Value Reference Range Interpretation Comments NA (test code = 137 mmol/L 135-145 4358764936) K (test code = 3.7 mmol/L 3.5-5 6983349308) CL (test code = 102 mmol/L 98-108 0305718853) CO2 TOTAL (test code 26 mmol/L 23-31 = 3642804970) AGAP (test code = 2-16 0599077737) BUN (test code = 8 mg/dL 7-23 2006141241) GLUCOSE (test code = 96 mg/dL 70-110 2141596709) CREATININE (test code 0.77 mg/dL 0.5-1.04 = 3301335246) TOTAL BILI (test code 0.4 mg/dL 0.1-1.1 = 2561812619) CALCIUM (test code = 9.2 mg/dL 8.6-10.6 3904830825) T PROTEIN (test code 7.2 g/dL 6.3-8.2 = 6021504681) ALBUMIN (test code = 4.5 g/dL 3.5-5 8864142478) ALK PHOS (test code = 58 U/L 34-122 2941961653) ALTv (test code = 30 U/L 5-35 1742-6) AST(SGOT) (test code 17 U/L 13-40 = 0029248057) eGFR (test code = mL/min/1.73m2 9824454839) TOBI (test code = TOBI) Association of [...] or urine or abnormalities in imaging tests). [facility] 04:46:44 Test Item Value Reference Range Interpretation Comments LIPASE (test code = 7999714272) 91 U/L 0-220 Lab Interpretation (test code = Normal 13650-8) [facility] WITH [id number] 04:33:23 Test Item Value Reference Range Interpretation Comments WBC (test code = See_Comment [Automated 2690-2) message] The sy stem which generated this [...] RDW-SD (test code = 41.0 fL 39-49.9 46006-6) RDW-CV (test code = 13.1 % 12-15.5 788-0) PLT (test code = See_Comment H [Automated 777-3) message] The sy stem which generated this result transmitted reference range : 166 - 358 10*3/ ?L. The reference r shira was not used to interpret this result as normal/abnormal . MPV (test code = 10.1 fL 9.5-12.9 35949-5) NRBC/100 WBC (test See_Comment [Automat ed code = 6762971061) message] The system which generated this result transmitted reference range : 0.0 - 10.0 /100 WBCs. The refer ence range was not u sed to interpret th is result as normal/abnormal . NRBC x10^3 (test code See_Comment [Auto mated = 2973456997) message] The s [employer] which generated this result transmitted reference range : 10*3/?L. The reference range was not used to interpret this result as normal/abnormal . GRAN MAT (NEUT) % 52.2 % (test code = 770-8) IMM GRAN % (test code 0.30 % = 0550670811) LYMPH % (test code = 37.9 % 736-9) MONO % (test code = 5.9 % 5905-5) EOS % (test code = 3.1 % 713-8) BASO % (test code = 0.6 % 706-2) GRAN MAT x10^3(ANC) 4.83 10*3/uL 1.88-7.09 (test code = 2143695096) IMM GRAN x10^3 (test 0.03 10*3/uL 0-0.06 code = 7282932023) LYMPH x10^3 (test code 3.51 10*3/uL 1.32-3.29 H = 731-0) MONO x10^3 (test code 0.55 10*3/uL 0.33-0.92 = 742-7) EOS x10^3 (test code = 0.29 10*3/uL 0.03-0.39 711-2) BASO x10^3 (test code 0.06 10*3/uL 0.01-0.07 = 704-7) Lab Interpretation Abnormal (test code = 67401-6) [facility] FOR GROUP [id number] 07:59:00 Test Item Value Reference Range Interpretation Comments Streptococcus pyogenes (group A) Negative Negative antigen (test code = 91669-0) Lab Interpretation (test code = Normal 96488-1) [facility] HospitalCT HEAD WO [id number] 18:21:18No acute findings. HISTORY:Head trauma, mod-severe hit left head, near syncope, persistentsevere headache and dizziness TECHNIQUE: Noncontrast head CT was performed. COMPARISON:None FINDINGS: The ventricles and sulci are appropriate for patient's age. There is no midline shift. The basal cisterns are preserved. No largevascular territory infarction, intracranial hemorrhage or mass effect isseen. The extracranial tissues demonstrate no acute findings. [facility], Radiant Results Inft User - 11/20/2020 1:22PM CDT HISTORY:Head trauma, mod-severe hit left head, near syncope, persistentsevere headache and dizziness TECHNIQUE: Noncontrast head CT was performed.COMPARISON:NoneFINDINGS:The ventricles and sulci are appropriate for patient's age.There is no midline shift. The basal cisterns are preserved. No largevascular territory infarction, intracranial hemorrhage or mass effect isseen.The extracranial tissues demonstrate no acute findings.IMPRESSIONNo acute findings.[facility] METABOLIC PANEL (NA, K, CL, CO2, GLUCOSE, BUN, CREATININE, CA)2020-11-20 18:00:40 Test Item Value Reference Range Interpretation Comments NA (test code = 137 mmol/L 135-145 8863211642) K (test code = 4.2 mmol/L 3.5-5.0 2651906494) CL (test code = 104 mmol/L 98-108 1921030730) CO2 TOTAL (test code = 22 mmol/L 23-31 L 6075952976) AGAP (test code = 2-16 6058229996) BUN (test code = 10 mg/dL 7-23 2623568148) GLUCOSE (test code = 150 mg/dL 70-110 H 3812777050) CREATININE (test code = 0.59 mg/dL 0.50-1.04 2648565667) CALCIUM (test code = 9.5 mg/dL 8.6-10.6 9309891401) eGFR (test code = mL/min/1.73m2 1017298860) TOBI (test code = TOBI) Association of [...] tests). Lab Interpretation Abnormal (test code = 68572-2) [facility]POID [id number] 17:50:00 Test Item Value Reference Range Interpretation Comments POCT PREG (test code = 1605) negative On board controls acceptable with present C Line (test code = 3574) POCT PREG LOT # (test code = 3575) [id number] POCT PREG TEST DATE (test 05/27/2022 code = 3576) Lab Interpretation (test code = Normal 69101-5) [facility] WITH [id number] 17:32:17 Test Item Value Reference Range Interpretation Comments WBC (test code = See_Comment [Automated 8046-2) message] The sy stem which generated this result transmitted reference range : 4.30 - 11.10 10*3/?L. The reference range was not used to interpret this result as normal/abnormal . RBC (test code = See_Comment [Automated 437-1) message] The sy stem which generated this [...] RDW-SD (test code = 40.4 fL 39.0-49.9 41398-0) RDW-CV (test code = 13.0 % 12.0-15.5 788-0) PLT (test code = See_Comment H [Automated 777-3) message] The sy stem which generated this result transmitted reference range : 166 - 358 10*3/ ?L. The reference r shira was not used to interpret this result as normal/abnormal . MPV (test code = 9.5 fL 9.5-12.9 94419-1) NRBC/100 WBC (test See_Comment [Automat ed code = 1610424568) message] The system which generated this result transmitted reference range : 0.0 - 10.0 /100 WBCs. The refer ence range was not u sed to interpret th is result as normal/abnormal . NRBC x10^3 (test code <0.01 See_Comment [Auto mated = 8451663262) message] The s ystem which generated this result transmitted reference range : 10*3/?L. The reference range was not used to interpret this result as normal/abnormal . GRAN MAT (NEUT) % 83.0 % (test code = 770-8) IMM GRAN % (test code 0.70 % = 6571616202) LYMPH % (test code = 12.5 % 736-9) MONO % (test code = 3.7 % 5905-5) EOS % (test code = 0.0 % 713-8) BASO % (test code = 0.1 % 706-2) GRAN MAT x10^3(ANC) 8.41 10*3/uL 1.88-7.09 H (test code = 6602657145) IMM GRAN x10^3 (test 0.07 10*3/uL 0.00-0.06 H code = 6529014575) LYMPH x10^3 (test code 1.26 10*3/uL 1.32-3.29 L = 731-0) MONO x10^3 (test code 0.37 10*3/uL 0.33-0.92 = 742-7) EOS x10^3 (test code = <0.03 0.03-0.39 L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
--- NOTE | 2023-04-05 23:39 | ER ---
Nurse's Notes [facility] Name: Carla Duncan Age: 27 yrs Sex: Female : 1995 Arrival Date: 04/05/2023 Time: 22:05 Bed 26 Private MD: Diagnosis: Acute upper respiratory infection, unspecified;17 weeks gestation of ;Cough Presentation: 04/05 22:10 Chief complaint: Patient states: "I was here today for the same thing but I'm not mb9 better. I'm coughing up bright red blood, have a migraine, and now my right ear hurts. I'm currently 17 weeks ". Coronavirus screen: Vaccine status: Patient reports being unvaccinated. Ebola Screen: No symptoms or risks identified at this time. Initial Sepsis Screen: Does the patient meet any 2 criteria? No. Patient's initial sepsis screen is negative. Does the patient have a suspected source of infection? No. Patient's initial sepsis screen is negative. Risk Assessment: Do you want to hurt yourself or someone else? Patient reports no desire to harm self or others. Onset of symptoms was April 05, 2023. 22:10 Method Of Arrival: Ambulatory mb9 22:10 Acuity: VENKATESH 3 mb9 Triage Assessment: 22:12 General: Appears in no apparent distress. Behavior is calm, cooperative. Pain: mb9 Complains of pain in right ear. EENT: Oral mucosa is moist. Throat is clear. Neuro: Level of Consciousness is awake, alert, obeys commands, Oriented to person, place, time, situation, Appropriate for age. Neuro: Lovett Agitation-Sedation Scale (RASS): 0 - Alert and Calm. Neuro: Reports headache. Cardiovascular: Patient's skin is warm and dry. Respiratory: Reports cough that is Airway is patent Respiratory effort is even, unlabored, Respiratory pattern is regular, symmetrical. Respiratory: Parent/caregiver reports the patient having cough that is bright red blood. GI:. : No signs and/or symptoms were reported regarding the genitourinary system. Derm: Skin is pink, warm \\T\\ dry. Musculoskeletal: Range of motion: intact in all extremities. 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 - Social history:: Smoking status: Patient denies any tobacco usage or history of. Screenin:47 [facility] ED Fall Risk Assessment (Adult) History of falling in the last 3 months, cm10 including since admission No falls in past 3 months (0 pts) Confusion or Disorientation No (0 pts) Intoxicated or Sedated No (0 pts) Impaired Gait No (0 pts) Mobility Assist Device Used No (0 pt) Altered Elimination No (0 pt) Score/Fall Risk Level 0 - 2 = Low Risk Oriented to surroundings, Maintained a safe environment, Hourly rounding (assess needs \\T\\ fall precautionary measures) done. Abuse screen: Denies threats or abuse. Denies injuries from another. Nutritional screening: No deficits noted. Tuberculosis screening: No symptoms or risk factors identified. Assessment: 23:27 Reassessment: Patient appears in no apparent distress at this time. Patient and/or cm10 family updated on plan of care and expected duration. Pain level reassessed. Patient is alert, oriented x 3, equal unlabored respirations, skin warm/dry/pink. 23:45 Reassessment: FHTs 155. ERP notified. mb9 Vital Signs: 22:10 BP 138 / 92; Pulse 95; Resp 16; Temp 98.2; Pulse Ox 100% ; Weight 79.38 kg; Height 5 mb9 ft. 0 in. ; Pain 10/10; 22:10 Body Mass Index 34.18 (79.38 kg, 152.4 cm) mb9 22:10 Pain Scale: Adult mb9 ED Course: 22:07 Patient arrived in ED. ag3 22:10 Arm band placed on. mb9 22:12 Triage completed. mb9 22:15 Kaila Lopez, JUDI is Primary Nurse. cm10 22:16 Michael Yuan MD is Attending Physician. [facility] 22:47 Patient has correct armband on for positive identification. Call light in reach. cm10 Provided Education on: ER process and procedures. . 23:27 ED physician to see patient. cm10 23:27 No provider procedures requiring assistance completed. Patient did not have IV access cm10 during this emergency room visit. 23:37 Sandra Portillo MD is Referral Physician. atif Administered Medications: 23:45 Drug: Acetaminophen PO 1000 mg PO once Route: PO; mb9 23:51 Follow up: Response: No adverse reaction cm10 Medication: 22:47 VIS not applicable for this client. cm10 Outcome: 23:38 Discharge ordered by . atif 23:51 Discharged to home ambulatory, cm10 23:51 Condition: good 23:51 Discharge instructions given to patient, Instructed on discharge instructions, follow up and referral plans. medication usage, Demonstrated understanding of instructions, follow-up care, medications, Prescriptions given X 2, 23:52 Patient left the ED. cm10 Signatures: Michael Yuan MD MD cha Gomez, Alice ag3 Breneman, Mary Beth, RN RN mb9 Kaila Lopez RN RN cm10
--- NOTE | 2023-04-05 23:39 | EDPHYS ---
Physician Documentation [facility] Name: Carla Duncan Age: 27 yrs Sex: Female : 1995 Arrival Date: 04/05/2023 Time: 22:05 Bed 26 Private MD: ED Physician Michael Yuan HPI: 04/05 23:31 This 27 yrs old Female presents to ER via Ambulatory with complaints of Ear atif Pain, COUGHING BLOOD. 23:31 The patient presents with a fullness. The complaints affect the right ear. Onset: The atif symptoms/episode began/occurred just prior to arrival, today. Modifying factors: The symptoms are alleviated by nothing, the symptoms are aggravated by nothing. Associated signs and symptoms: Pertinent positives: cough, rhinorrhea. Severity of symptoms: At their worst the symptoms were mild in the emergency department the symptoms are unchanged. The patient has experienced similar episodes in the past, a few times. 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 - Social history:: Smoking status: Patient denies any tobacco usage or history of. ROS: 23:32 Constitutional: Negative for fever, chills, and weight loss, Eyes: Negative for injury, atif pain, redness, and discharge, Neck: Negative for injury, pain, and swelling, Cardiovascular: Negative for chest pain, palpitations, and edema, Respiratory: Negative for shortness of breath, cough, wheezing, and pleuritic chest pain, Abdomen/GI: Negative for abdominal pain, nausea, vomiting, diarrhea, and constipation, Back: Negative for injury and pain, : Negative for injury, bleeding, discharge, and swelling, MS/Extremity: Negative for injury and deformity, Skin: Negative for injury, rash, and discoloration, Neuro: Negative for headache, weakness, numbness, tingling, and seizure, Psych: Negative for depression, anxiety, suicide ideation, homicidal ideation, and hallucinations, Allergy/Immunology: Negative for hives, rash, and allergies, Endocrine: Negative for neck swelling, polydipsia, polyuria, polyphagia, and marked weight changes, Hematologic/Lymphatic: Negative for swollen nodes, abnormal bleeding, and unusual bruising, 23:32 ENT: Positive for ear pain, rhinorrhea, sinus congestion, Exam: 23:32 Constitutional: This is a well developed, well nourished patient who is awake, alert, atif and in no acute distress. Head/Face: Normocephalic, atraumatic. Eyes: Pupils equal round and reactive to light, extra-ocular motions intact. Lids and lashes normal. Conjunctiva and sclera are non-icteric and not injected. Cornea within normal limits. Periorbital areas with no swelling, redness, or edema. Neck: Trachea midline, no thyromegaly or masses palpated, and no cervical lymphadenopathy. Supple, full range of motion without nuchal rigidity, or vertebral point tenderness. No Meningismus. Chest/axilla: Normal chest wall appearance and motion. Nontender with no deformity. No lesions are appreciated. Cardiovascular: Regular rate and rhythm with a normal S1 and S2. No gallops, murmurs, or rubs. Normal PMI, no JVD. No pulse deficits. Respiratory: Lungs have equal breath sounds bilaterally, clear to auscultation and percussion. No rales, rhonchi or wheezes noted. No increased work of breathing, no retractions or nasal flaring. Abdomen/GI: Soft, non-tender, with normal bowel sounds. No distension or tympany. No guarding or rebound. No evidence of tenderness throughout. Back: No spinal tenderness. No costovertebral tenderness. Full range of motion. Skin: Warm, dry with normal turgor. Normal color with no rashes, no lesions, and no evidence of cellulitis. MS/ Extremity: Pulses equal, no cyanosis. Neurovascular intact. Full, normal range of motion. Neuro: Awake and alert, GCS 15, oriented to person, place, time, and situation. Cranial nerves II-XII grossly intact. Motor strength 5/5 in all extremities. Sensory grossly intact. Cerebellar exam normal. Normal gait. Psych: Awake, alert, with orientation to person, place and time. Behavior, mood, and affect are within normal limits. 23:32 ENT: Ear canal(s): are normal, no acute changes, TM's: bulging, on the right, dullness, Nose: is normal, no acute changes, Mouth: is normal, no acute changes, Lips: normal, moist, Oral mucosa: normal, pink and intact, Gums: normal with healthy appearance, Posterior pharynx: is normal, no acute changes, Airway: normal, no evidence of obstruction, Vital Signs: 22:10 BP 138 / 92; Pulse 95; Resp 16; Temp 98.2; Pulse Ox 100% ; Weight 79.38 kg; Height 5 mb9 ft. 0 in. ; Pain 10/10; 22:10 Body Mass Index 34.18 (79.38 kg, 152.4 cm) mb9 22:10 Pain Scale: Adult mb9 MDM: 22:16 Patient medically screened. atif 23:35 Differential diagnosis: otitis media, otitis externa, ruptured TM, acute otalgia, atif cerumen impaction, barotrauma . Data reviewed: vital signs, nurses notes, radiologic studies, plain films. Consideration of Admission/Observation Escalation of care including admission/observation considered. I considered the following discharge prescriptions or medication management in the emergency department Medications were administered in the Emergency Department. See MAR. Test considered but Not performed: Labs: no labs. Historians other than the Patient: pt well informed. Care significantly affected by the following chronic conditions: Hypertension, asthma, anxiety. Counseling: I had a detailed discussion with the patient and/or guardian regarding the historical points, exam findings, and any diagnostic results supporting the discharge/admit diagnosis, radiology results, the need for outpatient follow up, for definitive care, an ENT specialist, an OB/Gyne specialist. 04/05 23:31 Order name: FHT's; Complete Time: 23:45 atif Administered Medications: 23:45 Drug: Acetaminophen PO 1000 mg PO once Route: PO; mb9 23:51 Follow up: Response: No adverse reaction cm10 Disposition Summary: 04/05/23 23:38 Discharge Ordered Notes: Location: Home atif Symptoms: have improved atif Condition: Stable atif Diagnosis - Acute upper respiratory infection, unspecified atif - 17 weeks gestation of atif - Cough atif Followup: atif - With: Private Physician - When: 2 - 3 days - Reason: Recheck today's complaints, Continuance of care, Re-evaluation by your physician Followup: atif - With: Sandra Portillo MD - When: 2 - 3 days - Reason: Recheck today's complaints, Continuance of care, Re-evaluation by your physician Discharge Instructions: - Discharge Summary Sheet atif - Upper Respiratory Infection, Adult atif - Cool Mist Vaporizer atif - Upper Respiratory Infection, Adult, Kxjz-ah-Brvj atif - Cough, Adult [facility] Forms: - Medication Reconciliation Form city [facility] - Thank You Letter atif - Antibiotic Education atif - Prescription Opioid Use atif - Patient Portal Instructions city hospital - Leadership Thank You Letter atif Prescriptions: - Benadryl 25 mg Oral Capsule - take 1 capsule ORAL route every 6 hours As needed; 30 tablet; Refills: 0, city hospital Product Selection Permitted - Tylenol 325 mg Oral tablet - take 2 tablets ORAL route every 6 hours as needed; 1 blisters; Refills: 0, city hospital Product Selection Permitted Signatures: Michael Yuan MD MD cha Breneman, Kathryn Hernandez RN RN mb9 John, Kaila LAU cm10
[2023-04-05] MEDS ORDERED: ACETAMINOPHEN 500 MG TAB ONE (23:46)
[2023-04-06 02:17] VITALS: BP 138/92; TEMP 98.2; O2SAT 100
== END 2023-04-05 23:52 | disposition home or self-care (01) ==
LOC: ER 22:05
DX: O99.512 Diseases of the respiratory system complicating pregnancy, second trimester (principal); J06.9 Acute upper respiratory infection, unspecified; Z88.1 Allergy status to other antibiotic agents; Z88.5 Allergy status to narcotic agent
CPT/HCPCS: 99283

== ENCOUNTER 2023-05-08 14:59 | Emergency (ER) | payer OTHER ==
--- OUTSIDE RECORDS SUMMARY | 2023-05-08 15:08 | XMS REPORT | Continuity of Care Document ---
:1995 Author Organization [facility] t Address [address] [facility] [address] [place] [address] Care Team Providers Name Role Phone Asked, No Pcp Primary Care Physician Unavailable GELY VELARDE Attending Clinician Unavailable Dani Kauffman DO Attending Clinician Gely Velarde MD Attending Clinician Doctor Unassigned, [place] Attending Clinician Unavailable Flynn Attending Clinician Unavailable GC_[email or web address]_[email or web address]_G Attending Clinician Unavailable RICKY HOOKS Attending Clinician Unavailable Ricky Hooks Attending Clinician MICHAEL MCKNIGHT Attending Clinician Unavailable Juan Luis AREVALO, Michael Hurley Attending Clinician David AREVALO, Orin Gan Attending Clinician Maicol Martinez Attending Clinician [phone] MENDY LIRIANO Attending Clinician Unavailable Mendy Liriano MD Attending Clinician Skyler Rg MD Attending Clinician [phone] MAICOL DUMONT Attending Clinician Unavailable Tricia SIMMONS Attending Clinician Unavailable Tricia Rice Attending Clinician JOHN BYERS Attending Clinician Unavailable John Hyman Attending Clinician Nash Schwab MD Attending Clinician aClvin AREVALO, Lorena Real Attending Clinician [phone] Ania Lopez MD Attending Clinician AFSANEH CAR Attending Clinician Unavailable Afsaneh Car NP Attending Clinician Carlos Hernandez DO Attending Clinician Akiko Darden Attending Clinician John Agarwal S Attending Clinician JOHN BECKHAM S Attending Clinician Unavailable Wild Cowart MD Attending Clinician GELY VELARDE Admitting Clinician Unavailable Gely Velarde MD Admitting Clinician JAMIE_Jose De Jesus Admitting Clinician Unavailable JAMIE_ROCKYROGERIOJOSR_[place]_G Admitting Clinician Unavailable RICKY HOOKS Admitting Clinician Unavailable Ricky Hooks Admitting Clinician CALE CASE Admitting Clinician Unavailable Tricia SIMMONS Admitting Clinician Unavailable LORENA SIMPSON Admitting Clinician Unavailable Wild Barrera Admitting Clinician Unavailable Payers Payer Name Policy Type Policy Number Effective Date Expiration Date Geovani yeager [facility] [id number] 2023 CHOICE [place] STAR 00:00:00 MARISOL SIDDIQI FROM [id number] 2020 [facility] 00:00:00 [facility] [id number] 2019 00:00:00 [facility] [id number] 2023 CHOICE (MEDICAID 00:00:00 [place]PLACEMENT - [place] [id number] [place] Problems Condition Condition Condition Status Onset Resolution Last Treating Co mments Source Name Details Category Date Date Treatment Clinician Date Fall down Fall down Disease Active Uni vers stairs, stairs, 9-10 ity of initial initial 00:00: [place] encounter encounter 00 [facility]i [place] Branch UTI in UTI in Disease Active Overview: Univer s 01-21 Formattin i ty of 00:00: g of this [place] note Medical might be Branch different from the original. Pending loyda Multiparit Multiparit Disease Active U nivers y y 7-24 ity of 00:: [place] [facility] History of History of Disease Active U nivers miscarriag miscarriag 7-24 it y of e e 00:00: [place] [facility] History of History of Disease Active Overview : Univers 7-24 Formattin ity of section section 00:00: g of [place] note Medical might be Branch different from the original. x2 see scanned records History of History of Disease Active U nivers depression depression 7-24 it y of 00:: Medical Branch History of History of Disease Active U nivers anxiety anxiety 7-24 ity of 00:: [place] [facility] History of History of Disease Active Overview : Univers hypertensi hypertensi 7-24 Formattin ity of on on 00:00: g of [place] note Medical might be Branch different from the original. Reports on amlodipin e off of meds x2 months History of History of Disease Active Overview : Univers bulimia bulimia 01-18 Formattin ity o f 00:00: g of this 00 note Medical might be Branch different [...] of in in 00:00: g of this [place] 00 note Medi scott might be Branch different from the original. Suppressi on at 36 weeks Nausea and Nausea and Disease Active U nivers vomiting vomiting 01-18 ity of in in 00:00: [place] 00 Medi scott Branch Pregestati Pregestati Disease [...] spina 00:00: [place] bifida bifida 00 Medical [place] No known No known Disease Metho di active active st problems problems Hospit a l Allergies, Adverse Reactions, Alerts Allergy Allergy Status Severity Reaction(s) Onset Inactive Treating Comm ents Source Name Type Date Date Clinician AMOXICIL DRUG Active Rash Univers CONNOR INGREDI - ity of 00:00: [place] [facility] IODINE DRUG Active Hives Univers INGREDI 12-14 ity of 00:00: [place] [facility] Amoxicil Propensi Active Rash Univer s connor ty to 12-14 ity of adverse 00:00: [place] reaction 00 Medical s Branch Iodine Propensi Active Cough IV Univers ty to 12-14 contrastR ity of adverse 00:00: eports ok [place] reaction 00 with Medical s benadryl Branch Ketorola Propensi Active Other - See Has bad Univers c ty to comments 12-31 anxiety, ity of adverse 00:00: but can [place] reaction 00 take with Medic al s Benadryl Branch KETOROLA DRUG Active Other-Cmnt Univ ers C INGREDI 7 ity of 00:00: [place] 00 [facility] butorpha DA Active MO [facility] nol 2-04 [facility] 00:00: Hospita 00 l of [place] butorpha DA Active MO tachycardic [facility] nol 2-04 Woman's 00:00: Hospita 00 l of [place] BUTORPHA DRUG Active Palpitations Un [place]ann NOL INGREDI 1-20 ity of TARTRATE 00:00: [place] 00 Medical Branch Butorpha Propensi Active Palpitations 0 Univers nol ty to 1-20 ity of Tartrate adverse 00:00: [place] reaction 00 Medical s Branch Butorpha Propensi Active Palpitations 2018-06 Methodi nol ty to 2-25 st Tartrate adverse 00:00: Hospita reaction 00 l s to drug morphine DA Active U [facility] 1-19 Woman's 00:00: Hospita 00 l of [place] codeine DA Active PR 2019-0 [facility] 1-19 Woman's 00:00: Hospita 00 l of [place] morphine DA Active U SWELLING 2019-0 [facility] 1-19 Woman's 00:00: Hospita 00 l of [place] codeine DA Active PR nausea, 2019-0 [facility] headache 1-19 Woman's 00:00: Hospita 00 l of [place] tramadol DA Active PR 2018- [facility] 2-31 Woman's 00:00: Hospita 00 l of [place] tramadol DA Active PR CHEST PAIN 2018- [facility] 2-31 Woman's 00:00: Hospita 00 l of [place] Acetamin Propensi Active Shortness Of Methodi ophen-Co ty to Breath 14 st deine adverse 00:00: Hospita reaction 00 l s to drug Tramadol Propensi Active Other (See headache Methodi ty to Comments) 14 st adverse 00:00: Hospita reaction 00 l s to drug ACETAMIN DRUG Active High SOB Univers OPHEN-CO 9 ity of DEINE 00:00: [place] 00 Medical [...] Stop Date Source Natural mother Menstrual problems [facility] Natural mother [facility] Social History Social Habit Start Date Stop Date Quantity Comments Source ASSERTION 2022-12-14 [facility] 00:00:00 Hospital Gender identity Universit y [facility] Sexual orientation Method ist Hospital Education - What is 2023-03-07 2023-03-07 GED or equivalent [facility] level 00:00:00 00:00:00 [place] M edical of school you have Branch completed or the highest degree you have received? Alcohol intake 2023-02-26 2023-02-26 Current drinker Metho dist 00:00:00 00:00:00 of alcohol Hospital (finding) History of Social 2023-02-26 2023-02-[address] function 00:00:00 00:00:00 Hospital Exposure to 2022-10-09 2022-10-19 Not sure University of SARS-CoV-2 (event) 00:00:00 08:19:00 [facility] Tobacco use and 2022-03-26 2022-03-26 Smokeless tobacco Me thodist exposure 00:00:00 00:00:00 non-user Hospital Alcohol Comment 2016-04-28 2016-04-28 social, weekly Metho dist 00:00:00 00:00:00 Hospital Sex Assigned At [birth year] [facility] 00:00:00 00:00:00 Hospital Smoking Status Start Date Stop Date Source Never smoked tobacco [facility] Medications Ordered Filled Start Stop Current Ordering Indication Dosage Frequency Signature Comments Components Source Medication Medication Date Date Medication? Clinician (SIG) Name Name sodium 2022-06 Yes 15mL 15 mL, Univers citrate-cit -06 Oral, ity of ivone acid 03:00: PC+HS, [place] (BICITRA) 00 First dose Medi scott 500-334 on Sun Branch mg/5 mL 05/02/23 at solution 15 2100, mL Until Discontinu ed, Routine pantoprazol Yes 40mg 40 mg, Univ ers e 03-09 Oral, ity of (PROTONIX) 14:00: DAILY, [place] EC tablet 00 First dose Medi scott 40 mg on Tue Branch 03/09/23 at 0900, Until Discontinu ed, Routine diphenhydrA 2022- No 12.5mg 12.5 mg, Univers MINE 03-08 Intravenou ity of (BENADRYL) 18:30: 18:40 s, ONCE, 1 [place] injection 00 :00 dose, On Medica l 12.5 mg Mon Branch 03/08/23 at 1330, Routine cyclobenzap Yes [...] 00 :00 dose, On Medica l mg [facility] Branch 03/08/23 at 1045, Routine Yes 1{tbl} 1 tablet, Un [place] vitamin 03-08 Oral, ity of w/FA tablet 14:00: DAILY, [place] 1 tablet 00 First dose Medic al on [facility] Branch 03/08/23 at 0900, Until Discontinu ed, Routine diphenhydrA 2022- No 25mg 25 mg, Uni vers MINE 03-08 Intravenou ity of (BENADRYL) 07:30: 07:22 s, ONCE, 1 [place] injection 00 :00 dose, On Medica l 25 mg [facility] 03/08/23 at 0230, Routine acetaminoph Yes 650mg 650 mg, Un [place] en 03-08 Oral, ity of (TYLENOL) 02:25: Q6HPRN, [place] tablet 650 43 Starting Medic al mg on [place] Branch 03/07/23 at 2125, Until Discontinu ed, Routine, Pain (scale 1-3) HYDROcodone 2022- No 1{tbl} 1 tablet, Univers -acetaminop 03-08 Oral, ity of hen (NORCO) 02:23: 14:37 [place]PRN[place] 10-325 mg 41 :22 Starting Medica l tablet 1 on [facility] tablet 03/07/23 at 2123, Until 03/08/23 at 0937, Routine, Pain (scale 4-6) morpHINE (2 2022- No 2mg 2 mg, Slow Univers mg/mL) 03-07 IV Push, ity of injection 2 20:50: 23:34 Q4HPRN, [place] mg 15 :37 Starting Medical on [facility] 03/07/23 at 1550, Until [place] 03/07/23 at 1834, Routine, Pain (scale 7-10) morpHINE (4 2022-0 2022- No 4mg 4 mg, Slow Univers mg/mL) 03-07 IV Push, ity of injection 4 17:15: 17:12 ONCE, 1 [place] mg 00 :00 dose, On Medical [facility] 03/07/23 at 1215, STAT metoclopram 2022-2022- No 10mg 10 mg, Uni vers dio HCl 03-07 Slow IV ity of (REGLAN) 17:15: 17:13 Push, [place] injection 00 :00 ONCE, 1 Medical 10 mg dose, On [facility] 03/07/23 at 1215, RODRICK NaCl 0.9% 2022- No 1000mL at 999 Uni vers (NS) bolus 03-07 mL/hr, ity of infusion 14:00: 18:02 1,000 mL, [place] 1,000 mL 00 :00 IV Medical Infusion, Branch ONCE, 1 dose, On [place] 03/07/23 at 0900, STAT ondansetron 2022- No 4mg 4 mg, Slow Univers (ZOFRAN 03-07 IV Push, ity of (PF)) 14:00: 13:56 ONCE, 1 [place] injection 4 00 :00 dose, On Medi scott mg [facility] 03/07/23 at 0900, RODRICK morpHINE (4 Yes 4mg 4 mg, Slow Univers mg/mL) 03-07 IV Push, ity of injection 4 13:55: Q4HPRN, [place] mg 17 Starting Medical on [facility] 03/07/23 at 0855, Until Discontinu ed, Routine, Pain (scale 4-6) cefTRIAXone 2022-0 2022- No 500mg 500 mg, U nivers (ROCEPHIN) 02-16 Intramuscu it y of 350 mg/mL 00:45: 00:22 lar, ONCE, [place] in 00 :00 1 dose, On Medical Lidocaine 1 Mon Branch % injection 02/15/23 at 500 mg 1945, RODRICK
Re ason for Anti-Infec tive: Documented Infection< br>Documen jd Infection Site: Urine
D uration of Therapy: Other (see Comments) cephALEXin 2023-0 Yes [id number] 500mg Take 1 Univers (KEFLEX) 8-21 capsule by ity o f 500 mg 00:00: mouth 4 [place] capsule 00 (four) Medical times Branch daily. Nitrofurant 2023-0 Yes [id number] 100mg Take 1 Univers oin&Nit. 8-21 capsule by ity o f Macrocryst 00:00: mouth in [place] (MACROBID) 00 the Medical 100 mg morning Branch capsule and 1 capsule in the evening. cephALEXin 2023-0 Yes [id number] 500mg Take 1 Univers (KEFLEX) 8-21 capsule by ity o f 500 mg 00:00: mouth 4 [place] capsule 00 (four) Medical times Branch daily. Nitrofurant 2023-0 Yes [id number] 100mg Take 1 Univers oin&Nit. 8-21 capsule by ity o f Macrocryst 00:00: mouth in [place] (MACROBID) 00 the Medical 100 mg morning Branch capsule and 1 capsule in the evening. cephALEXin 2023-0 Yes [id number] 500mg Take 1 Univers (KEFLEX) 8-21 capsule by ity o f 500 mg 00:00: mouth 4 [place] capsule 00 (four) Medical times Branch daily. Nitrofurant 2023-0 Yes [id number] 100mg Take 1 Univers oin&Nit. 8-21 capsule by ity o f Macrocryst 00:00: mouth in [place] (MACROBID) 00 the Medical 100 mg morning Branch capsule and 1 capsule in the evening. cephALEXin 2023-0 Yes [id number] 500mg Take 1 Univers (KEFLEX) 8-21 capsule by ity o f 500 mg 00:00: mouth 4 [place] capsule 00 (four) Medical times Branch daily. Nitrofurant 2023-0 Yes [id number] 100mg Take 1 Univers oin&Nit. 8-21 capsule by ity o f Macrocryst 00:00: mouth in [place] (MACROBID) 00 the Medical 100 mg morning Branch capsule and 1 capsule in the evening. cephALEXin 2023-0 Yes [id number] 500mg Take 1 Univers (KEFLEX) 8-21 capsule by ity o f 500 mg 00:00: mouth 4 [place] capsule 00 (four) Medical times Branch daily. Nitrofurant 2023-0 Yes [id number] 100mg Take 1 Univers oin&Nit. 8-21 capsule by ity o f Macrocryst 00:00: mouth in [place] (MACROBID) 00 the Medical 100 mg morning Branch capsule and 1 capsule in the evening. cephALEXin 2023-0 Yes [id number] 500mg Take 1 Univers (KEFLEX) 8-21 capsule by ity o f 500 mg 00:00: mouth 4 [place] capsule 00 (four) Medical times Branch daily. Nitrofurant 2023-0 Yes [id number] 100mg Take 1 Univers oin&Nit. 8-21 capsule by ity o f Macrocryst 00:00: mouth in [place] (MACROBID) 00 the Medical 100 mg morning Branch capsule and 1 capsule in the evening. cephALEXin 2023-0 Yes [id number] 500mg Take 1 Univers (KEFLEX) 8-21 capsule by ity o f 500 mg 00:00: mouth 4 [place] capsule 00 (four) Medical times Branch daily. Nitrofurant 2023-0 Yes [id number] 100mg Take 1 Univers oin&Nit. 8-21 capsule by ity o f Macrocryst 00:00: mouth in [place] (MACROBID) 00 the Medical 100 mg morning Branch capsule and 1 capsule in the evening. cephALEXin 2023-0 Yes [id number] 500mg Take 1 Univers (KEFLEX) 8-21 capsule by ity o f 500 mg 00:00: mouth 4 [place] capsule 00 (four) Medical times Branch daily. Nitrofurant 2023-0 Yes [id number] 100mg Take 1 Univers oin&Nit. 8-21 capsule by ity o f Macrocryst 00:00: mouth in [place] (MACROBID) 00 the Medical 100 mg morning Branch capsule and 1 capsule in the evening. acetaminoph 2023-0 2023- No 2{tbl} Take 2 [...] 2{tbl} Take 2 M ethodi en-caff-pyr 8-20 -20 tablets by s t ilamine 19:50: 00:00 mouth. Hospita 500-60-15 47 :00 l mg tablet acetaminoph 2023-0 2023- No 2{tbl} Take 2 M ethodi en-caff-pyr 8-20 -20 tablets by s t ilamine 19:50: 00:00 mouth. Hospita 500-60-15 47 :00 l mg tablet acetaminoph 2023-0 2023- No 2{tbl} Take 2 M ethodi en-caff-pyr 8-20 -20 tablets by s t ilamine 19:50: 00:00 mouth. Hospita 500-60-15 47 :00 l mg tablet cefpodoxime 2023-0 2023- No 200mg Q.5D Take [...] times a day for 7 days. cefpodoxime 2022-0 2022- No 200mg Q.5D Take 1 Me th[facility] (VANTIN) 02-[address] 200 MG 00:00: 04:59 (200 mg Hospita tablet 00 :00 total) by l mouth 2 (two) times a day for 7 days. cefpodoxime 2022-0 2022- No 200mg Q.5D Take 1 [facility] (VANTIN) 02-[address] 200 MG 00:00: 04:59 (200 mg Hospita tablet 00 :00 total) by l mouth 2 (two) times a day for 7 days. phenazopyri 2022-0 2022- No 100mg Q.[id number] Take 1 Methodi dine 02-[id number] (Pyridium) 00:00: 04:59 3D (100 mg Hos radha 100 MG 00 :00 total) by l tablet mouth 3 (three) times a day as needed for bladder spasms for up to 3 days. phenazopyri 2022-0 2022- No 100mg Q.[id number] Take 1 Methodi dine 02-[id number] (Pyridium) 00:00: 04:59 3D (100 mg Hos radha 100 MG 00 :00 total) by l tablet mouth 3 (three) times a day as needed for bladder spasms for up to 3 days. phenazopyri 2022-0 2022- No 100mg Q.[id number] Take 1 Methodi dine 02-[id number] (Pyridium) 00:00: 04:59 3D (100 mg Hos rahda 100 MG 00 :00 total) by l tablet mouth 3 (three) times a day as needed for bladder spasms for up to 3 days. phenazopyri 2022-0 2022- No 100mg Q.[id number] Take 1 Methodi dine 02-[id number] (Pyridium) 00:00: 04:59 3D (100 mg Hos radha 100 MG 00 :00 total) by l tablet mouth 3 (three) times a day as needed for bladder spasms for up to 3 days. phenazopyri 3-0 3- No 100mg Q.[id number] Take 1 Methodi dine 02-14-[id number] (Pyridium) 00:00: 04:59 3D (100 mg Hos radha 100 MG 00 :00 total) by l tablet mouth 3 (three) times a day as needed for bladder spasms for up to 3 days. phenazopyri 3-0 3- No 100mg Q.[id number] Take 1 Methodi dine 02-14-[id number] (Pyridium) 00:00: 04:59 3D (100 mg Hos radha 100 MG 00 :00 total) by l tablet mouth 3 (three) times a day as needed for bladder spasms for up to 3 days. clindamycin 2022-0 3- No [id number] 300mg Take 1 Univers 300 mg 01-22 capsule by ity of capsule 00:00: 04:59 mouth in [place] 00 :00 the Medical morning Branch and 1 capsule in the evening. Do all this for 7 days. clindamycin 2022-0 3- No [id number] 300mg Take 1 Univers 300 mg 01-22 capsule by ity of capsule 00:00: 04:59 mouth in [place] 00 :00 the [facility] morning Branch and 1 capsule in the evening. Do all this for 7 days. cephALEXin 2022-0 3- No [id number] 500mg Take 1 Univers (KEFLEX) 01-21 capsule by ity of 500 mg 00:00: 04:59 mouth 4 [place] capsule 00 :00 (four) Medical times [place] daily for 10 days. cephALEXin 2023-0 3- No [id number] 500mg Take 1 Univers (KEFLEX) 01-21- capsule by ity of 500 mg 00:00: 04:59 mouth 4 [place] capsule 00 :00 (four) Medical times Branch daily for 10 days. cephALEXin 2023-0 3- No [id number] 500mg Take 1 Univers (KEFLEX) 01-21- capsule by ity of 500 mg 00:00: 04:59 mouth 4 [place] capsule 00 :00 (four) Medical times [place] daily for 10 days. cephALEXin 2023-0 3- No [id number] 500mg Take 1 Univers (KEFLEX) 01-21 0807 capsule by ity of 500 mg 00:00: 04:59 mouth 4 [place] capsule 00 :00 (four) Medical times Branch daily for 10 days. FLUoxetine 2022- No fluoxetine Univers 20 mg 01-18 20 mg ity of capsule 08:55: 00:00 capsule [place] 16 :00 Medical Branch bupropion 2022- No bupropion Un [place] HBr 01-1824 HBr ity of (APLENZIN 08:55: 00:00 [place] ORAL) 13 :00 Medical Branch ALPRAZolam 2022- No alprazolam Univers 0.5 mg 01-18 0.5 mg ity of tablet 08:55: 00:00 tablet [place] 07 :00 Medical Branch proMETHazin Yes [id number] 25mg Take 1 Univers e 25 mg 7-24 tablet by ity of tablet 00:00: mouth [place] 00 every 6 Medical (six) Branch hours as needed for Nausea and Vomiting (N/V). blood sugar Yes [id number] Check U nivers diagnostic 7-24 blood ity of (FREESTYLE 00:00: glucose 4x [place] LITE 00 daily Medical STRIPS) Branch strip lancets Yes [id number] Check Unive rs (FREESTYLE 7-24 glucose 4x ity of LANCETS) 28 00:00: daily [place] gauge Misc 00 Medical Branch Blood-Gluco Yes [id number] Check U nivers se Meter 7-24 blood ity of (FREESTYLE 00:00: glucose 4x [place] LITE METER) 00 daily Medical Kit Branch Yes [id number] 1{tbl} Take 1 U nivers [id number]- 7-24 tablet by ity of folic acid 00:00: mouth in [place] 29 mg iron- 00 the Medical 1 mg per morning. Branch tablet proMETHazin Yes [id number] 25mg Take 1 Univers e 25 mg 7-24 tablet by ity of tablet 00:00: mouth [place] 00 every 6 Medical (six) Branch hours as needed for Nausea and Vomiting (N/V). blood sugar Yes [id number] Check U nivers diagnostic 7-24 blood ity of (FREESTYLE 00:00: glucose 4x [place] LITE 00 daily Medical STRIPS) Branch strip lancets Yes [id number] Check Unive rs (FREESTYLE 7-24 glucose 4x ity of LANCETS) 28 00:00: daily [place] gauge Misc 00 Medical Branch Blood-Gluco Yes [id number] Check U nivers se Meter 7-24 blood ity of (FREESTYLE 00:00: glucose 4x [place] LITE METER) 00 daily Medical Kit Branch Yes [id number] 1{tbl} Take 1 U nivers [id number]- 7-24 tablet by ity of folic acid 00:00: mouth in [place] 29 mg iron- 00 the Medical 1 mg per morning. Branch tablet proMETHazin Yes [id number] 25mg Take 1 Univers e 25 mg 7-24 tablet by ity of tablet 00:00: mouth [place] 00 every 6 Medical (six) Branch hours as needed for Nausea and Vomiting (N/V). blood sugar Yes [id number] Check U nivers diagnostic 7-24 blood ity of (FREESTYLE 00:00: glucose 4x [place] LITE 00 daily Medical STRIPS) Branch strip lancets Yes [id number] Check Unive rs (FREESTYLE 7-24 glucose 4x ity of LANCETS) 28 00:00: daily [place] gauge Misc Medical Branch Blood-Gluco Yes [id number] Check U nivers se Meter 7-24 blood ity of (FREESTYLE 00:00: glucose 4x [place] LITE METER) 00 daily Medical Kit Branch Yes [id number] 1{tbl} Take 1 U nivers [id number]- 7-24 tablet by ity of folic acid 00:00: mouth in [place] 29 mg iron- 00 the Medical 1 mg per morning. Branch tablet proMETHazin Yes [id number] 25mg Take 1 Univers e 25 mg 7-24 tablet by ity of tablet 00:00: mouth [place] 00 every 6 Medical (six) Branch hours as needed for Nausea and Vomiting (N/V). blood sugar Yes [id number] Check U nivers diagnostic 7-24 blood ity of (FREESTYLE 00:00: glucose 4x [place] LITE 00 daily Medical STRIPS) Branch strip lancets Yes [id number] Check Unive rs (FREESTYLE 7-24 glucose 4x ity of LANCETS) 28 00:00: daily [place] gauge Mis Medical Branch Blood-Gluco Yes [id number] Check U nivers se Meter 7-24 blood ity of (FREESTYLE 00:00: glucose 4x [place] LITE METER) 00 daily Medical Kit Branch Yes [id number] 1{tbl} Take 1 U nivers [id number]- 7-24 tablet by ity of folic acid 00:00: mouth in [place] 29 mg iron- 00 the Medical 1 mg per morning. Branch tablet proMETHazin Yes [id number] 25mg Take 1 Univers e 25 mg 7-24 tablet by ity of tablet 00:00: mouth [place] 00 every 6 Medical (six) Branch hours as needed for Nausea and Vomiting (N/V). blood sugar Yes [id number] Check U nivers diagnostic 7-24 blood ity of (FREESTYLE 00:00: glucose 4x [place] LITE 00 daily Medical STRIPS) Branch strip lancets Yes [id number] Check Unive rs (FREESTYLE 7-24 glucose 4x ity of LANCETS) 28 00:00: daily [place] [facility] Medical Branch Blood-Gluco Yes [id number] Check U nivers se Meter 7-24 blood ity of (FREESTYLE 00:00: glucose 4x [place] LITE METER) 00 daily Medical Kit Branch Yes [id number] 1{tbl} Take 1 U nivers [id number]- 7-24 tablet by ity of folic acid 00:00: mouth in [place] 29 mg iron- 00 the Medical 1 mg per morning. Branch tablet proMETHazin Yes [id number] 25mg Take 1 Univers e 25 mg 7-24 tablet by ity of tablet 00:00: mouth [place] 00 every 6 Medical (six) Branch hours as needed for Nausea and Vomiting (N/V). blood sugar Yes [id number] Check U nivers diagnostic 7-24 blood ity of (FREESTYLE 00:00: glucose 4x [place] LITE 00 daily Medical STRIPS) Branch strip lancets Yes [id number] Check Unive rs (FREESTYLE 7-24 glucose 4x ity of LANCETS) 28 00:00: daily [place] gauge Mis Medical Branch Blood-Gluco Yes [id number] Check U nivers se Meter 7-24 blood ity of (FREESTYLE 00:00: glucose 4x [place] LITE METER) 00 daily Medical Kit Branch Yes [id number] 1{tbl} Take 1 U nivers [id number]- 7-24 tablet by ity of folic acid 00:00: mouth in [place] 29 mg iron- 00 the Medical 1 mg per morning. Branch tablet proMETHazin Yes [id number] 25mg Take 1 Univers e 25 mg 7-24 tablet by ity of tablet 00:00: mouth [place] 00 every 6 Medical (six) Branch hours as needed for Nausea and Vomiting (N/V). blood sugar Yes [id number] Check U nivers diagnostic 7-24 blood ity of (FREESTYLE 00:00: glucose 4x [place] LITE 00 daily Medical STRIPS) Branch strip lancets Yes [id number] Check Unive rs (FREESTYLE 7-24 glucose 4x ity of LANCETS) 28 00:00: daily [place] [facility] Mis Medical Branch Blood-Gluco Yes [id number] Check U nivers se Meter 7-24 blood ity of (FREESTYLE 00:00: glucose 4x [place] LITE METER) 00 daily Medical Kit Branch Yes [id number] 1{tbl} Take 1 U nivers [id number]- 7-24 tablet by ity of folic acid 00:00: mouth in [place] 29 mg iron- 00 the Medical 1 mg per morning. Branch tablet proMETHazin Yes [id number] 25mg Take 1 Univers e 25 mg 7-24 tablet by ity of tablet 00:00: mouth [place] 00 every 6 Medical (six) Branch hours as needed for Nausea and Vomiting (N/V). blood sugar Yes [id number] Check U nivers diagnostic 7-24 blood ity of (FREESTYLE 00:00: glucose 4x [place] LITE 00 daily Medical STRIPS) Branch strip lancets Yes [id number] Check Unive rs (FREESTYLE 7-24 glucose 4x ity of LANCETS) 28 00:00: daily [place] gauge [facility] Medical Branch Blood-Gluco Yes [id number] Check U nivers se Meter 7-24 blood ity of (FREESTYLE 00:00: glucose 4x [place] LITE METER) 00 daily Medical Kit Branch Yes [id number] 1{tbl} Take 1 U nivers [id number]- 7-24 tablet by ity of folic acid 00:00: mouth in [place] 29 mg iron- 00 the Medical 1 mg per morning. Branch tablet proMETHazin Yes [id number] 25mg Take 1 Univers e 25 mg 7-24 tablet by ity of tablet 00:00: mouth [place] 00 every 6 Medical (six) Branch hours as needed for Nausea and Vomiting (N/V). blood sugar Yes [id number] Check U nivers diagnostic 7-24 blood ity of (FREESTYLE 00:00: glucose 4x [place] LITE 00 daily Medical STRIPS) Branch strip lancets Yes [id number] Check Unive rs (FREESTYLE 7-24 glucose 4x ity of LANCETS) 28 00:00: daily [place] gauge Mis Medical Branch Blood-Gluco Yes [id number] Check U nivers se Meter 7-24 blood ity of (FREESTYLE 00:00: glucose 4x [place] LITE METER) 00 daily Medical Kit Branch Yes [id number] 1{tbl} Take 1 U nivers [id number]- 7-24 tablet by ity of folic acid 00:00: mouth in [place] 29 mg iron- 00 the Medical 1 mg per morning. Branch tablet proMETHazin Yes [id number] 25mg Take 1 Univers e 25 mg 7-24 tablet by ity of tablet 00:00: mouth [place] 00 every 6 Medical (six) Branch hours as needed for Nausea and Vomiting (N/V). blood sugar Yes [id number] Check U nivers diagnostic 7-24 blood ity of (FREESTYLE 00:00: glucose 4x [place] LITE 00 daily Medical STRIPS) Branch strip lancets Yes [id number] Check Unive rs (FREESTYLE 7-24 glucose 4x ity of LANCETS) 28 00:00: daily [place] [facility] Medical Branch Blood-Gluco Yes [id number] Check U nivers se Meter 7-24 blood ity of (FREESTYLE 00:00: glucose 4x [place] LITE METER) 00 daily Medical Kit Branch Yes [id number] 1{tbl} Take 1 U nivers [id number]- 7-24 tablet by ity of folic acid 00:00: mouth in [place] 29 mg iron- 00 the Medical 1 mg per morning. Branch tablet proMETHazin Yes [id number] 25mg Take 1 Univers e 25 mg 7-24 tablet by ity of tablet 00:00: mouth [place] 00 every 6 Medical (six) Branch hours as needed for Nausea and Vomiting (N/V). blood sugar Yes [id number] Check U nivers diagnostic 7-24 blood ity of (FREESTYLE 00:00: glucose 4x [place] LITE 00 daily Medical STRIPS) Branch strip lancets Yes [id number] Check Unive rs (FREESTYLE 7-24 glucose 4x ity of LANCETS) 28 00:00: daily [place] [facility] Medical Branch Blood-Gluco Yes [id number] Check U nivers se Meter 7-24 blood ity of (FREESTYLE 00:00: glucose 4x [place] LITE METER) 00 daily Medical Kit Branch Yes [id number] 1{tbl} Take 1 U nivers [id number]- 7-24 tablet by ity of folic acid 00:00: mouth in [place] 29 mg iron- 00 the Medical 1 mg per morning. Branch tablet proMETHazin Yes [id number] 25mg Take 1 Univers e 25 mg 7-24 tablet by ity of tablet 00:00: mouth [place] 00 every 6 Medical (six) Branch hours as needed for Nausea and Vomiting (N/V). blood sugar Yes [id number] Check U nivers diagnostic 7-24 blood ity of (FREESTYLE 00:00: glucose 4x [place] LITE 00 daily Medical STRIPS) Branch strip lancets Yes [id number] Check Unive rs (FREESTYLE 7-24 glucose 4x ity of LANCETS) 28 00:00: daily [facility] Medical Branch Blood-Gluco Yes [id number] Check U nivers se Meter 7-24 blood ity of (FREESTYLE 00:00: glucose 4x [place] LITE METER) 00 daily Medical Kit Branch Yes [id number] 1{tbl} Take 1 U nivers [id number]- 7-24 tablet by ity of folic acid 00:00: mouth in [place] 29 mg iron- 00 the Medical 1 mg per morning. Branch tablet proMETHazin Yes [id number] 25mg Take 1 Univers e 25 mg 7-24 tablet by ity of tablet 00:00: mouth [place] [address] every 6 Medical (six) Branch hours as needed for Nausea and Vomiting (N/V). blood sugar Yes [id number] Check U nivers diagnostic 7-24 blood ity of (FREESTYLE 00:00: glucose 4x [place] LITE 00 daily Medical STRIPS) Branch strip lancets Yes [id number] Check Unive rs (FREESTYLE 7-24 glucose 4x ity of LANCETS) 28 00:00: daily [facility] Medical Branch Blood-Gluco Yes [id number] Check U nivers se Meter 7-24 blood ity of (FREESTYLE 00:00: glucose 4x [place] LITE METER) 00 daily Medical Kit Branch Yes [id number] 1{tbl} Take 1 U nivers [id number]- 7-24 tablet by ity of folic acid 00:00: mouth in [place] 29 mg iron- 00 the Medical 1 mg per morning. Branch tablet cefTRIAXone 2022- No 1000mg 1,000 mg, Univers (ROCEPHIN) 12-15 0620 IV ity of 1,000 mg in 04:00: 04:41 [place], [place] NaCl 0.9% 00 :00 ONCE, 1 Medical (NS) 100 mL dose, On Bran ch MINI-BAG 12/14/22 at 2300, Administer over 30 Minutes, 100 mL
Reas on for Anti-Infec tive: Documented Infection< br>Documen jd Infection Site: Urine<br&g t;Duration of Therapy: Other (see Comments) ketorolac 2022- No 15mg 15 mg, Unive rs (TORADOL) 12-15 Slow IV ity of injection 02:30: 01:32 [place], [place] 15 mg 00 :00 ONCE, 1 Medical dose, On Branch [facility] 12/14/22 at 2130, RODRICK diphenhydrA 2022- No 25mg 25 mg, Uni vers MINE 12-15 Slow IV ity of (BENADRYL) 02:30: 01:32 [place], [place] injection 00 :00 ONCE, 1 Medical 25 mg dose, On [facility] 12/14/22 at 2130, STAT metoclopram 2022- No 10mg 10 mg, Uni vers dio HCl 12-15 Slow IV ity of (REGLAN) 02:30: 01:32 [place], [place] injection 00 :00 ONCE, 1 Medical 10 mg dose, On [facility] 12/14/22 at 2130, RODRICK acetaminoph 2022- No 1000mg 1,000 mg, Univers en 12-15 Oral, ity of (TYLENOL) 00:15: 00:10 ONCE, 1 [place] tablet 00 :00 dose, On Medical 1,000 mg [facility] 12/14/22 at 1915, RODRICK ondansetron 2022- No 4mg 4 mg, Slow Univers (ZOFRAN 12-14 IV Push, ity of (PF)) 23:45: 22:59 ONCE, 1 [place] injection 4 00 :00 dose, On Medi [place] mg [facility] 12/14/22 at 1845, RODRICK morpHINE (2 2022- No 4mg 4 mg, Slow Univers mg/mL) 12-14 IV Push, ity of injection 4 23:45: 23:00 ONCE, 1 [place] mg 00 :00 dose, On Medical [facility] 12/14/22 at 1845, STAT NaCl 0.9% 2022- No 1000mL at 999 Uni vers (NS) bolus 12-14 mL/hr, ity of infusion 22:30: 02:04 1,000 mL, [place] as 1,000 mL 00 :00 IV Medical Infusion, Branch ONCE, 1 dose, On Wed12/14/22 at 1730, STAT ibuprofen 2023-0 Yes [id number] 600mg Take 1 Univers 600 mg 4-24 100 tablet by ity of tablet 00:00: mouth [place] 00 every 6 Medical (six) Branch hours as needed for Pain (scale 4-6). ibuprofen 2023-0 Yes [id number] 600mg Take 1 Univers 600 mg 4-24 100 tablet by ity of tablet 00:00: mouth [place] 00 every 6 Medical (six) Branch hours as needed for Pain (scale 4-6). ibuprofen 2023-0 Yes [id number] 600mg Take 1 Univers 600 mg 4-24 100 tablet by ity of tablet 00:00: mouth [place] 00 every 6 Medical (six) Branch hours as needed for Pain (scale 4-6). ibuprofen 2023-0 2023- No [id number] 600mg Take 1 Univers 600 mg 4-24 [...] 5 days. phenazopyri 2022-0 2022- No 200mg Q.[id number] Take 1 Methodi dine 07-[id number] (Pyridium) 00:00: 05:59 3D (200 mg [facility] rad[facility] 200 MG 00 :00 total) by l tablet mouth 3 (three) times a day as needed for bladder spasms for up to 3 days. phenazopyri 2022-0 2022- No 200mg Q.[id number] Take 1 Methodi dine 07-[id number] (Pyridium) 00:00: 05:59 3D (200 mg [facility] radha 200 MG 00 :00 total) by l tablet mouth 3 (three) times a day as needed for bladder spasms for up to 3 days. phenazopyri 2022-0 2022- No 200mg Q.[id number] Take 1 Methodi dine 07-[id number] (Pyridium) 00:00: 05:59 3D (200 mg [facility] radha 200 MG 00 :00 total) by l tablet mouth 3 (three) times a day as needed for bladder spasms for up to 3 days. phenazopyri 2022-0 2022- No 200mg Q.[id number] Take 1 Methodi dine 07-[id number] (Pyridium) 00:00: 05:59 3D (200 mg [facility] radha 200 MG 00 :00 total) by l tablet mouth 3 (three) times a day as needed for bladder spasms for up to 3 days. phenazopyri 2022-0 2022- No 200mg Q.[id number] Take 1 Methodi dine 07-[id number] (Pyridium) 00:00: 05:59 3D (200 mg [facility] radha 200 MG 00 :00 total) by l tablet mouth 3 (three) times a day as needed for bladder spasms for up to 3 days. phenazopyri 2022-0 2022- No 200mg Q.[id number] Take 1 Methodi dine 07-[id number] (Pyridium) 00:00: 05:59 3D (200 mg [facility] radha 200 MG 00 :00 total) by l tablet mouth 3 (three) times a day as needed for bladder spasms for up to 3 days. phenazopyri 2022-0 2022- No 200mg Q.[id number] Take 1 Methodi dine 07-[id number] (Pyridium) 00:00: 05:59 3D (200 mg [facility] radha 200 MG 00 :00 total) by l tablet mouth 3 (three) times a day as needed for bladder spasms for up to 3 days. phenazopyri 2022-0 2022- No 200mg Q.[id number] Take 1 Methodi dine 07-[id number] (Pyridium) 00:00: 05:59 3D (200 mg [facility] radha 200 MG 00 :00 total) by l tablet mouth 3 (three) times a day as needed for bladder spasms for up to 3 days. phenazopyri 2022-0 2022- No 200mg Q.[id number] Take 1 Methodi dine 07-[id number] (Pyridium) 00:00: 05:59 3D (200 mg [facility] rad[facility] 200 MG 00 :00 total) by l tablet mouth 3 (three) times a day as needed for bladder spasms for up to 3 days. phenazopyri 2022-0 2022- No 200mg Q.[id number] Take 1 Methodi dine 07-[id number] (Pyridium) 00:00: 05:59 3D (200 mg [facility] radha 200 MG 00 :00 total) by l tablet mouth 3 (three) times a day as needed for bladder spasms for up to 3 days. phenazopyri 2022-0 2022- No 200mg Q.[id number] Take 1 Methodi dine 07-[id number] (Pyridium) 00:00: 05:59 3D (200 mg [facility] radha 200 MG 00 :00 total) by l tablet mouth 3 (three) times a day as needed for bladder spasms for up to 3 days. phenazopyri 0 2022- No 200mg Q.[id number] Take 1 Methodi dine 07-[id number] (Pyridium) 00:00: 05:59 3D (200 mg [facility] radha 200 MG 00 :00 total) by l tablet mouth 3 (three) times a day as needed for bladder spasms for up to 3 days. phenazopyri 2022- No 200mg Q.[id number] Take 1 Methodi dine 07-[id number] (Pyridium) 00:00: 05:59 3D (200 mg [facility] radha 200 MG 00 :00 total) by l tablet mouth 3 (three) times a day as needed for bladder spasms for up to 3 days. phenazopyri 2022- No 200mg Q.[id number] Take 1 Methodi dine 07-[id number] (Pyridium) 00:00: 05:59 3D (200 mg [facility] radha 200 MG 00 :00 total) by l tablet mouth 3 (three) times a day as needed for bladder spasms for up to 3 days. phenazopyri 2022- No 200mg Q.[id number] Take 1 Methodi dine 07-[id number] (Pyridium) 00:00: 05:59 3D (200 mg [facility] radha 200 MG 00 :00 total) by l tablet mouth 3 (three) times a day as needed for bladder spasms for up to 3 days. phenazopyri 0 2022- No 200mg Q.[id number] Take 1 Methodi dine 07-[id number] (Pyridium) 00:00: 05:59 3D (200 mg [facility] radha 200 MG 00 :00 total) by l tablet mouth 3 (three) times a day as needed for bladder spasms for up to 3 days. phenazopyri 2022-0 2022- No 200mg Q.[id number] Take 1 Methodi dine 07-[id number] (Pyridium) 00:00: 05:59 3D (200 mg [facility] radha 200 MG 00 :00 total) by l tablet mouth 3 (three) times a day as needed for bladder spasms for up to 3 days. diphenhydrA 2021-06 No 25mg 25 mg, Uni vers MINE 07-30 Oral, ity of (BENADRYL) 04:30: 04:21 ONCE, 1 [place] tablet 25 00 :00 dose, On Medica l mg [facility] 05/28/22 at 2230, RODRICK FENTanyl PF 2021-06 No 75ug 75 mcg, Un [place] (SUBLIMAZE 07-30 Slow IV ity o f (PF)) 04:30: 03:51 Push, [place] injection 00 :00 ONCE, 1 Medical 75 mcg dose, On [facility] 05/28/22 at 2230, Routine doxycycline 2021-06 No 100mg 100 mg, U nivers hyclate 07-30 Oral, ity of (Vibramycin 03:45: 03:51 ONCE, 1 [place] capsule 00 :00 dose, On Medica l 100 mg [facility] 05/28/22 at 2145, RODRICK
Re ason for Anti-Infec tive: Documented Infection< br>Documen jd Infection Site: Pelvic
Duration of Therapy: Other (see Comments) morpHINE (4 2021-06 No 4mg 4 mg, Slow Univers mg/mL) 07-30 IV [place], ity of injection 4 02:30: 02:47 ONCE, 1 [place] mg 00 :00 dose, On Medical [facility] 05/28/22 at 2030, STAT ketorolac 2021-06 No 15mg 15 mg, Unive rs (TORADOL) 07-30 Slow IV ity of injection 01:45: 01:01 [place], [place] 15 mg 00 :00 ONCE, 1 Medical dose, On Branch [facility] 05/28/22 at 1945, Routine iopamidol 2021-06 No [id number] 75mL 75 mL, Univers (ISOVUE 07-30 Intravenou [...] 05/28/22 at 1815, RODRICK metroNIDAZO 2021-06 Yes [id number] 500mg Take 1 Univers LE 500 mg 2-01 tablet by ity o f tablet 00:00: mouth in [place] 00 the Medical morning Branch and 1 tablet in the evening. metroNIDAZO 2021-06 Yes [id number] 500mg Take 1 Univers LE 500 mg 2-01 tablet by ity o f tablet 00:00: mouth in [place] 00 the Medical morning Branch and 1 tablet in the evening. metroNIDAZO 2021-06 Yes [id number] 500mg Take 1 Univers LE 500 mg 2-01 tablet by ity o f tablet 00:00: mouth in [place] 00 the Medical morning Branch and 1 tablet in the evening. metroNIDAZO 2021-06 Yes [id number] 500mg Take 1 Univers LE 500 mg 2-01 tablet by ity o f tablet 00:00: mouth in [place] 00 the Medical morning Branch and 1 tablet in the evening. metroNIDAZO 2021-06- No [id number] 500mg Take 1 Univers LE 500 mg 2- 07-24 tablet by ity of tablet 00:00: 00:00 mouth in [place] 00 :00 the Medical morning Branch and 1 tablet in the evening. doxycycline 2021-06- No [id number] 100mg Take 1 Univers hyclate 100 07-29 [...] as needed for mild pain. ondansetron 2022-0 2023- No 4mg Q8H Take 1 Met hodi ODT 9-29 08-20 tablet (4 st (ZOFRAN-ODT 00:00: 00:00 mg total) [facility]osp[facility] ) 4 MG 00 :00 by mouth l disintegrat every 8 ing tablet (eight) hours as needed for nausea or vomiting. ibuprofen 2021-0 2023- No 800mg Q8H Take 1 Meth shamir (ADVIL) 800 9- 08-[address] MG tablet 00:00: 00:00 [...] Q8H Take 1 Meth shamir (ADVIL) 800 9 08-[address] MG tablet 00:00: 00:00 [...] hours as needed for mild pain. ondansetron No 4mg Q8H Take 1 Met hodi [...] Children bupropion Yes bupropion Uni vers HBr 9 HBr ity of (APLENZIN 12:44: [place] ORAL) [...] Children bupropion Yes bupropion Uni vers HBr 903 HBr ity of (APLENZIN 12:44: [place] ORAL) [facility] FLUoxetine Yes fluoxetine U nivers 20 mg 9-03 20 mg ity of capsule 12:44: capsule [facility] ALPRAZolam Yes alprazolam U nivers 0.5 mg 9-03 0.5 mg ity of tablet 12:44: tablet Medical Branch bupropion Yes bupropion Uni vers HBr 02-28 HBr ity of (APLENZIN 12:44: [place] ORAL) [facility] Branch FLUoxetine Yes fluoxetine U nivers 20 mg 02-28 20 mg ity of capsule 12:44: capsule [place] [facility] Branch famotidine No 20mg 20 mg, Univ ers [...] 0.5 mg ity of tablet 23:48: tablet [place] [facility] bupropion Yes bupropion Uni vers HBr 02-26 HBr ity of (APLENZIN 23:48: [place] ORAL) [facility] FLUoxetine Yes fluoxetine U nivers 20 mg 02-26 20 mg ity of capsule 23:48: capsule [place] [facility] ciprofloxac 2021- No 500mg Q.5D Take 1 [...] 7 days. phenazopyri 2021-0 202- No 200mg Q.[id number] Take 1 Methodi dine 02-[id number] (PYRIDIUM) 00:00: 04:59 3D (200 mg [facility] radha 200 MG 00 :00 total) by l tablet mouth 3 (three) times a day for 3 days. phenazopyri 2022-0 2022- No 200mg Q.[id number] Take 1 Methodi dine 02-[id number] (PYRIDIUM) 00:00: 04:59 3D (200 mg [facility] radha 200 MG 00 :00 total) by l tablet mouth 3 (three) times a day for 3 days. phenazopyri 2022-0 2022- No 200mg Q.[id number] Take 1 Methodi dine 02-[id number] (PYRIDIUM) 00:00: 04:59 3D (200 mg [facility] radha 200 MG 00 :00 total) by l tablet mouth 3 (three) times a day for 3 days. phenazopyri 2022-0 2022- No 200mg Q.[id number] Take 1 Methodi dine 02-[id number] (PYRIDIUM) 00:00: 04:59 3D (200 mg [facility] radha 200 MG 00 :00 total) by l tablet mouth 3 (three) times a day for 3 days. phenazopyri 2022-0 2022- No 200mg Q.[id number] Take 1 Methodi dine 02-[id number] (PYRIDIUM) 00:00: 04:59 3D (200 mg [facility] radha 200 MG 00 :00 total) by l tablet mouth 3 (three) times a day for 3 days. phenazopyri 2021-0 2021- No 200mg Q.[id number] Take 1 Methodi dine 02-[id number] (PYRIDIUM) 00:00: 04:59 3D (200 mg [facility] radha 200 MG 00 :00 total) by l tablet mouth 3 (three) times a day for 3 days. phenazopyri 2021-0 2021- No 200mg Q.[id number] Take 1 Methodi dine 02-[id number] (PYRIDIUM) 00:00: 04:59 3D (200 mg [facility] radha 200 MG 00 :00 total) by l tablet mouth 3 (three) times a day for 3 days. phenazopyri 2021-0 2021- No 200mg Q.[id number] Take 1 Methodi dine 02-[id number] (PYRIDIUM) 00:00: 04:59 3D (200 mg [facility] radha 200 MG 00 :00 total) by l tablet mouth 3 (three) times a day for 3 days. phenazopyri 2021-0 2021- No 200mg Q.[id number] Take 1 Methodi dine 02-[id number] (PYRIDIUM) 00:00: 04:59 3D (200 mg [facility] radha 200 MG 00 :00 total) by l tablet mouth 3 (three) times a day for 3 days. phenazopyri 2021-0 2021- No 200mg Q.[id number] Take 1 Methodi dine 02-[id number] (PYRIDIUM) 00:00: 04:59 3D (200 mg [facility] radha 200 MG 00 :00 total) by l tablet mouth 3 (three) times a day for 3 days. phenazopyri 2021-0 2021- No 200mg Q.[id number] Take 1 Methodi dine 02-[id number] (PYRIDIUM) 00:00: 04:59 3D (200 mg [facility] radha 200 MG 00 :00 total) by l tablet mouth 3 (three) times a day for 3 days. phenazopyri 2021-0 2021- No 200mg Q.[id number] Take 1 Methodi dine 02-[id number] (PYRIDIUM) 00:00: 04:59 3D (200 mg [facility] radha 200 MG 00 :00 total) by l tablet mouth 3 (three) times a day for 3 days. phenazopyri 2021-0 202- No 200mg Q.[id number] Take 1 Methodi dine 02-[id number] (PYRIDIUM) 00:00: 04:59 3D (200 mg [facility] radha 200 MG 00 :00 total) by l tablet mouth 3 (three) times a day for 3 days. phenazopyri 2021-0 2021- No 200mg Q.[id number] Take 1 Methodi dine 02-[id number] (PYRIDIUM) 00:00: 04:59 3D (200 mg [facility] radha 200 MG 00 :00 total) by l tablet mouth 3 (three) times a day for 3 days. phenazopyri 2021-0 2021- No 200mg Q.[id number] Take 1 Methodi dine 02-[id number] (PYRIDIUM) 00:00: 04:59 3D (200 mg [facility] radha 200 MG 00 :00 total) by l tablet mouth 3 (three) times a day for 3 days. phenazopyri 2021-0 2021- No 200mg Q.[id number] Take 1 Methodi dine 02-[id number] (PYRIDIUM) 00:00: 04:59 3D (200 mg [facility] radha 200 MG 00 :00 total) by l tablet mouth 3 (three) times a day for 3 days. phenazopyri 2021-0 2021- No 200mg Q.[id number] Take 1 Methodi dine 02-[id number] (PYRIDIUM) 00:00: 04:59 3D (200 mg [facility] radha 200 MG 00 :00 total) by l tablet mouth 3 (three) times a day for 3 days. phenazopyri 2022-0 2022- No 200mg Q.[id number] Take 1 Methodi dine 02-18- [id number] tablet st (PYRIDIUM) 00:00: 04:59 3D (200 mg [facility] radha 200 MG 00 :00 total) by l tablet mouth 3 (three) times a day for 3 days. phenazopyri 2021- No 200mg Q.[id number] Take 1 Methodi dine 02-[id number] (PYRIDIUM) 00:00: 04:59 3D (200 [...] 1 [place] mg 00 :00 dose, [facility] Medical 12/31/20 at Branch 0300, RODRICK methocarbam 2020- No 1000mg 1,000 mg, Univers oL 12-31 Oral, ONCE ity of (ROBAXIN) 08:00: 07:17 NOW, 1 [place] tablet 00 :00 dose, [facility] Medical 1,000 mg 12/31/20 at Branch 0300, RODRICK ibuprofen Yes [id number] 800mg Take 1 U nivers 800 mg 12-31 tablet by ity of tablet 00:00: mouth [place] 00 every 8 Medical (eight) Branch hours as needed for Pain (scale 4-6). cyclobenzap Yes [id number] 10mg Take 1 Univers rine 10 mg 7-06 tablet by ity of tablet 00:00: mouth 3 [place] 00 (three) Medical times Branch daily as needed for Muscle Spasms. ibuprofen 2021- No [id number] 800mg Take 1 Univers 800 mg 12-31 tablet by ity of tablet 00:00: 00:00 mouth [place] 00 :00 every 8 Medical (eight) Branch hours as needed for Pain (scale 4-6). cyclobenzap 2021- No [id number] 10mg Take 1 Univers rine 10 mg [...] 1,000 mL 00 :00 IV Medical Infusion, [place] ONCE, 1 dose, [facility] 11/20/20 at 1530, STAT metoclopram No 10mg 10 mg, Uni vers dio HCl 11-20 Slow IV ity of (REGLAN) 20:15: 19:18 Push, [place] injection 00 :00 ONCE, 1 Medical 10 mg dose, [facility] 11/[facility] at 1515, RODRICK ketorolac No 30mg 30 mg, Unive rs (TORADOL) 11-20 Slow IV ity of injection 20:15: 19:18 Push, [place] 30 mg 00 :00 ONCE, 1 Medical dose, [facility] 11/20/20 at 1515, RODRICK
Fa culty member approving Restricted medication : JOHN BECKHAM diphenhydrA 2020- No 25mg 25 mg, Uni vers MINE 11-20 Slow IV ity of (BENADRYL) 20:15: 20:15 Push, [place] injection 00 :00 ONCE, 1 Medical 25 mg dose, Wed Branch 11/20/20 at 1515, STAT butalbital- 2020-0 Yes 1{tbl} 1 tablet, Univers acetaminoph 5-26 Oral, ity of en-caff 18:12: Q4HPRN, [place] (ESGIC) 27 Starting Medical 50-325-40 Wed Branch mg tablet 1 11/20/20 at tablet 1312, Until Discontinu ed, Routine, zofran ketorolac 2020-0 Yes [id number] 10mg Take 1 Un car[place] 10 mg 5-26 tablet by ity of tablet 00:00: mouth [place] 00 every 6 Medical (six) Branch hours as needed for Pain (scale 4-6). cyclobenzap 2020-0 Yes [id number] 10mg Take 1 Univers rine 10 mg 5-26 tablet by ity of tablet 00:00: mouth 3 [place] 00 (three) Medical times Branch daily. ketorolac 2020-0 Yes [id number] 10mg Take 1 Un car[place]ann 10 mg 5-26 tablet by ity of tablet 00:00: mouth [place] 00 every 6 Medical (six) Branch hours as needed for Pain (scale 4-6). cyclobenzap 2020-0 Yes [id number] 10mg Take 1 Univers rine 10 mg 5-26 tablet by ity of tablet 00:00: mouth 3 [place] 00 (three) Medical times Branch daily. ketorolac 2020-0 2021- No [id number] 10mg Take 1 U nivers 10 mg 5-26 09-01 tablet by ity of tablet 00:00: 00:00 mouth [place] 00 :00 every 6 Medical (six) Branch hours as needed for Pain (scale 4-6). cyclobenzap 2020-0 2021- No [id number] 10mg Take 1 Univers rine 10 mg 5-26 - tablet by ity of tablet 00:00: 00:00 mouth 3 [place] 00 :00 (three) Medical times Branch daily. ketorolac 2020-0 2020- No 30mg 30 mg, Unive rs (TORADOL) 4- 04-02 Intramuscu ity of injection 03:45: 02:57 [place], ONCE, [place] 30 mg 00 :00 1 dose, Medical [place] 09/26/20 Branch at 2245, RODRICK
Fa [facility] member approving Restricted medication : Tricia SIMMONS diphenhydrA 2020- No 25mg 25 mg, Uni [...] 09/26/20 Branch at 2245, RODRICK ondansetron Yes [id number] 4mg Take 1 Univers (ZOFRAN 4-01 tablet by ity of ODT) 4 mg 00:00: mouth [place] disintegrat 00 every 8 Medic al ing tablet (eight) Branch hours as needed for Nausea and Vomiting (N/V). ondansetron Yes [id number] 4mg Take 1 Univers (ZOFRAN 4-01 tablet by ity of ODT) 4 mg 00:00: mouth [place] disintegrat 00 every 8 Medic al ing tablet (eight) Branch hours as needed for Nausea and Vomiting (N/V). ondansetron Yes [id number] 4mg Take 1 Univers (ZOFRAN 4-01 tablet by ity of ODT) 4 mg 00:00: mouth [place] disintegrat 00 every 8 Medic al ing tablet (eight) Branch hours as needed for Nausea and Vomiting (N/V). ondansetron 2021- No [id number] 4mg Take 1 Univers (ZOFRAN 4-01 09-01 tablet by ity of ODT) 4 mg 00:00: 00:00 mouth [place] disintegrat 00 :00 every 8 Medic al ing tablet (eight) Branch hours as needed for Nausea and Vomiting (N/V). proMETHazin Yes [id number] 25mg Take 1 Univers e 25 mg 2-09 tablet by ity of tablet 00:00: mouth [place] 00 every 6 Medical (six) Branch hours as needed for Nausea and Vomiting (N/V). proMETHazin Yes [id number] 25mg Take 1 Univers e 25 mg 2-09 tablet by ity of tablet 00:00: mouth [place] 00 every 6 Medical (six) Branch hours as needed for Nausea and Vomiting (N/V). proMETHazin Yes [id number] 25mg Take 1 Univers e 25 mg 2-09 tablet by ity of tablet 00:00: mouth [place] 00 every 6 Medical (six) Branch hours as needed for Nausea and Vomiting (N/V). proMETHazin 2021- No [id number] 25mg Take 1 Univers e 25 mg [...] IV ity of (REGLAN) 13:30: 12:29 Push, [place] injection 00 :00 ONCE, 1 Medical 10 [...] Univ ers vit 5-29 t} Packet by itnirail of 33-iron-fol 00:00: mouth [place] ic-dha 00 [...] Name Td 2011-06-28 Completed University of 00:00:00 [facility] Td 2011-06-28 Completed University of 00:00:00 [place] [facility] [place] Td 2011-06-28 Completed University of 00:00:00 [facility] Td 2011-06-28 Completed University of 00:00:00 [facility] Td 2011-06-28 Completed [facility] of 00:00:00 [facility] TD, NOS 2011-06-28 Completed University of 00:00:00 [facility] TD, NOS 2011-06-28 Completed University of 00:00:00 [facility] TD, NOS 2011-06-28 Completed [facility] 00:00:00 [facility] TD, NOS 2011-06-28 Completed [facility] 00:00:00 [facility] TD, NOS 2011-06-28 Completed [facility] 00:00:00 [facility] TD, NOS 2011-06-28 Completed [facility] of 00:00:00 [facility] TD, NOS 2011-06-28 Completed [facility] 00:00:00 [facility] TD, NOS 2011-06-28 Completed [facility] 00:00:00 [facility] TD, NOS 2011-06-28 Completed [facility] 00:00:00 [facility] TD, NOS 2011-06-28 Completed [facility] 00:00:00 [facility] TD, NOS 2011-06-28 Completed [facility] of 00:00:00 [facility] TD, NOS 2011-06-28 Completed [facility] of 00:00:00 [facility] TD, NOS 2011-06-28 Completed [facility] 00:00:00 [facility] Td 2011-06-28 Completed [facility] of 00:00:00 [facility] TD, NOS Unknown Completed [facility] TD, NOS Unknown Completed [facility] TD, NOS Unknown Completed [facility] TD, NOS Unknown Completed [facility] Vital Signs Vital Name Observation Time Observation Value Comments Source Systolic blood 2023-05-03 03:00:00 111 mm[Hg] Univer sity of pressure [facility] Diastolic blood 2023-05-03 03:00:00 63 mm[Hg] Unive rsity of [facility] Heart rate 2023-05-03 03:00:00 87 /min [facility] Oxygen saturation in 2023-05-03 03:00:00 99 /min [facility] Arterial blood by [facility] Pulse oximetry [place] Body temperature 2023-05-03 01:55:00 36.72 [place] [facility] Respiratory rate 2023-05-03 01:55:00 20 /min [facility] Body height 2023-05-03 01:35:00 154.9 cm [facility] Body weight 2023-05-03 01:35:00 81.784 kg [facility] BMI 2023-05-03 01:35:00 34.07 kg/m2 [facility] Systolic blood 2023-03-08 21:00:00 132 mm[Hg] Univer sity of pressure [facility] Diastolic blood 2023-03-08 21:00:00 79 mm[Hg] Unive rsity of [facility] Heart rate 2023-03-08 21:00:00 79 /min [facility] Body temperature 2023-03-08 21:00:00 37.11 [place] [facility] Respiratory rate 2023-03-08 21:00:00 20 /min Univ ersity [facility] Oxygen saturation in 2023-03-08 21:00:00 96 /min University of Arterial blood by [facility] Pulse oximetry Branch Body height 2023-03-07 19:16:33 157.5 cm [facility] Body weight 2023-03-07 19:16:33 77.111 kg [facility]i [facility] BMI 2023-03-07 19:16:33 31.09 kg/m2 [facility] Systolic blood 2023-03-07 17:00:00 129 mm[Hg] Univer sity of pressure [facility] Diastolic blood 2023-03-07 17:00:00 83 mm[Hg] Unive rsity of pressure [facility] Heart rate 2023-03-07 17:00:00 122 /min [facility]i ty [facility] Respiratory rate 2023-03-07 17:00:00 21 /min Univ ersity [facility] Oxygen saturation in 2023-03-07 17:00:00 100 /min University of Arterial blood by [facility] Pulse oximetry Branch Body temperature 2023-03-07 13:52:00 35.78 [place] Univ [facility] Body height 2023-03-07 13:52:00 152.4 cm [facility] Body weight 2023-03-07 13:52:00 77.111 kg [facility] BMI 2023-03-07 13:52:00 33.20 kg/m2 [facility] Systolic blood 2023-02-15 23:05:00 131 mm[Hg] Univer sity of pressure [facility] Diastolic blood 2023-02-15 23:05:00 81 mm[Hg] Unive rsity of pressure [facility] Heart rate 2023-02-15 23:05:00 100 /min [facility]i [facility] Body temperature 2023-02-15 23:05:00 36.72 [place] Univ [facility] Respiratory rate 2023-02-15 23:05:00 20 /min Univ ersity [facility] Oxygen saturation in 2023-02-15 23:05:00 99 /min [facility] blood by [place] [facility] Pulse oximetry [facility] Body weight 2023-02-15 23:03:00 79.379 kg [facility]i [facility] BMI 2023-02-15 23:03:00 34.18 kg/m2 [facility] Systolic blood 2023-01-18 13:45:00 138 mm[Hg] Univer sity of pressure [facility] Diastolic blood 2023-01-18 13:45:00 82 mm[Hg] Unive rsity of pressure [facility] Heart rate 2023-01-18 13:45:00 87 /min Universi ty of [facility] Body temperature 2023-01-18 13:45:00 35.72 [place] Univ ersity of [facility] Respiratory rate 2023-01-18 13:45:00 18 /min Univ ersity [facility] Body height 2023-01-18 13:45:00 152.4 cm [facility] [place] [facility] [place] Body weight 2023-01-18 13:45:00 79.561 kg [facility] BMI 2023-01-18 13:45:00 34.26 kg/m2 [facility] Systolic blood 2022-12-15 04:30:00 94 mm[Hg] Univer sity of pressure [facility] Diastolic blood 2022-12-15 04:30:00 58 mm[Hg] Unive rsity of pressure [facility] Heart rate 2022-12-15 04:30:00 88 /min [facility] Respiratory rate 2022-12-15 04:30:00 13 /min Univ ersity of [facility] Oxygen saturation in 2022-12-15 04:30:00 96 /min University of Arterial blood by [facility] Pulse oximetry Branch Body temperature 2022-12-15 04:00:00 37 [place] Univ ersity of [facility] Body height 2022-12-14 20:54:00 152.4 cm [facility] Body weight 2022-12-14 20:54:00 79.379 kg [facility] BMI 2022-12-14 20:54:00 34.18 kg/m2 Universi ty of [facility] Systolic blood 2022-10-19 14:30:00 129 mm[Hg] Univer sity of pressure [facility] Diastolic blood 2022-10-19 14:30:00 93 mm[Hg] Unive rsity of pressure [facility] Heart rate 2022-10-19 14:30:00 73 /min [facility] Respiratory rate 2022-10-19 14:30:00 14 /min Univ ersity [facility] Oxygen saturation in 2022-10-19 14:30:00 100 /min University of Arterial blood by [facility] Pulse oximetry Branch Body temperature 2022-10-19 13:22:00 37 [place] [facility] Body height 2022-10-19 13:22:00 152.4 cm [facility] Body weight 2022-10-19 13:22:00 79.833 kg [facility] BMI 2022-10-19 13:22:00 34.37 kg/m2 [facility] Systolic blood 2022-05-29 04:19:00 123 mm[Hg] Univer sity of pressure [facility] Diastolic blood 2022-05-29 04:19:00 87 mm[Hg] Unive rsity of pressure [facility] Heart rate 2022-05-29 04:19:00 93 /min [facility] Respiratory rate 2022-05-29 04:19:00 18 /min Univ [facility] Oxygen saturation in 2022-05-29 04:19:00 97 /min University of Arterial blood by [facility] Pulse oximetry Branch Body temperature 2022-05-28 23:42:00 37.11 [place] Univ [facility] Body height 2022-05-28 23:42:00 152.4 cm [facility] Systolic blood 2022-02-27 05:31:00 130 mm[Hg] Univer sity of pressure [facility] Diastolic blood 2022-02-27 05:31:00 87 mm[Hg] Unive rsity of pressure [facility] Heart rate 2022-02-27 05:31:00 98 /min [facility] Respiratory rate 2022-02-27 05:31:00 18 /min Univ [facility] Oxygen saturation in 2022-02-27 05:31:00 99 /min University of Arterial blood by [facility] Pulse oximetry Branch Body height 2022-02-27 03:38:00 152.4 cm [facility] [place] [facility] [place] Body weight 2022-02-27 03:38:00 82.101 kg Universi ty of [facility] BMI 2022-02-27 03:38:00 35.35 kg/m2 Universi ty of [facility] Body temperature 2022-02-27 03:36:00 36.[address] [place] [address] [facility] Systolic blood 2020-12-31 06:49:00 125 mm[Hg] Univer sity of pressure [facility] Diastolic blood 2020-12-31 06:49:00 93 mm[Hg] Unive rsity of pressure [facility] Heart rate 2020-12-31 06:49:00 104 /min Universi ty of [facility] Body temperature 2020-12-31 06:49:00 36.83 [place] Univ ersity of [facility] Respiratory rate 2020-12-31 06:49:00 15 /min Univ ersity of [facility] Body height 2020-12-31 06:49:00 152.4 cm [facility] Body weight 2020-12-31 06:49:00 92.5 kg [facility] BMI 2020-12-31 06:49:00 39.83 kg/m2 Universi ty of [facility] Oxygen saturation in 2020-12-31 06:49:00 99 /min [facility] Arterial blood by [facility] Pulse oximetry Branch Systolic blood 2020-12-31 06:49:00 125 mm[Hg] Univer sity of pressure [facility] Diastolic blood 2020-12-31 06:49:00 93 mm[Hg] Unive rsity of pressure [facility] Heart rate 2020-12-31 06:49:00 104 /min Universi ty of [facility] Body temperature 2020-12-31 06:49:00 36.[address] [place] [address] [facility] Respiratory rate 2020-12-31 06:49:00 15 /min Univ ersity of [facility] Body height 2020-12-31 06:49:00 [address] [facility] Body weight 2020-12-31 06:49:00 92.5 kg Universi ty of [facility] BMI 2020-12-31 06:49:00 39.83 kg/m2 [facility] Oxygen saturation in 2020-12-31 06:49:00 99 /min University of Arterial blood by [facility] Pulse oximetry Branch Systolic blood 2020-11-20 19:58:00 146 mm[Hg] Univer sity of pressure [facility] Diastolic blood 2020-11-20 19:58:00 95 mm[Hg] Unive rsity of pressure [facility] Heart rate 2020-11-20 19:58:00 98 /min [facility] Body temperature 2020-11-20 19:58:00 37.17 [place] [facility] Respiratory rate 2020-11-20 19:58:00 17 /min Univ [facility] Oxygen saturation in 2020-11-20 19:58:00 100 /min University of Arterial blood by [facility] Pulse oximetry Branch Body weight 2020-11-20 16:43:00 92.534 kg [facility] BMI 2020-11-20 16:43:00 39.84 kg/m2 [facility] Systolic blood 2020-11-20 19:58:00 146 mm[Hg] Univer sity of pressure [facility] Diastolic blood 2020-11-20 19:58:00 95 mm[Hg] Unive rsity of pressure [facility] Heart rate 2020-11-20 19:58:00 98 /min [facility] Body temperature 2020-11-20 19:58:00 37.17 [place] [facility] Respiratory rate 2020-11-20 19:58:00 17 /min Univ [facility] Oxygen saturation in 2020-11-20 19:58:00 100 /min University of Arterial blood by [facility] Pulse oximetry Branch Body weight 2020-11-20 16:43:00 92.534 kg [facility] BMI 2020-11-20 16:43:00 39.84 kg/m2 [facility] Body height 2020-09-26 23:49:00 152.4 cm [facility] Body weight 2020-09-26 23:49:00 90.719 kg [facility] BMI 2020-09-26 23:49:00 39.06 kg/m2 [facility] Systolic blood 2020-09-26 23:45:00 103 mm[Hg] Univer sity of pressure [facility] Diastolic blood 2020-09-26 23:45:00 62 mm[Hg] Unive rsity of pressure [facility] Heart rate 2020-09-26 23:45:00 107 /min [facility] Body temperature 2020-09-26 23:45:00 36.61 [place] [facility] Respiratory rate 2020-09-26 23:45:00 18 /min Univ [facility] Oxygen saturation in 2020-09-26 23:45:00 97 /min University of Arterial blood by [place] [employer] Pulse oximetry Branch Body height 2020-09-26 23:49:00 152.4 cm [facility] Body weight 2020-09-26 23:49:00 90.719 kg [facility] BMI 2020-09-26 23:49:00 39.06 kg/m2 [facility] Systolic blood 2020-09-26 23:45:00 103 mm[Hg] Univer sity of pressure [facility] Diastolic blood 2020-09-26 23:45:00 62 mm[Hg] Unive rsity of pressure [facility] Heart rate 2020-09-26 23:45:00 107 /min [facility] Body temperature 2020-09-26 23:45:00 36.61 [place] [facility] Respiratory rate 2020-09-26 23:45:00 18 /min Univ [facility] Oxygen saturation in 2020-09-26 23:45:00 97 /min University of Arterial blood by [facility] Pulse oximetry Branch Systolic blood 2020-07-17 14:00:00 112 mm[Hg] Univer sity of pressure [facility] Diastolic blood 2020-07-17 14:00:00 65 mm[Hg] Unive rsity of pressure [facility] Heart rate 2020-07-17 14:00:00 86 /min [facility] Respiratory rate 2020-07-17 14:00:00 20 /min [facility] Oxygen saturation in 2020-07-17 14:00:00 100 /min University of Arterial blood by [facility] Pulse oximetry Branch Body temperature 2020-07-17 11:50:00 37.22 [place] [facility] weight 2020-07-17 11:50:00 86.183 kg Universi ty [facility] BMI 2020-07-17 11:50:00 37.11 kg/m2 Universi ty [facility] Systolic blood 2020-07-17 14:00:00 112 mm[Hg] Univer sity of pressure [facility] Diastolic blood 2020-07-17 14:00:00 65 mm[Hg] Unive rsity of [facility] Heart rate 2020-07-17 14:00:00 86 /min Universi [facility] Respiratory rate 2020-07-17 14:00:00 20 /min [facility] Oxygen saturation in 2020-07-17 14:00:00 100 /min University of Arterial blood by [facility] Pulse oximetry [place] Body temperature 2020-07-17 11:50:00 37.22 [place] [facility] Body weight 2020-07-17 11:50:00 86.183 kg Universi [facility] BMI 2020-07-17 11:50:00 37.11 kg/m2 [facility] Systolic blood 2023-02-27 00:45:00 107 mm[Hg] [facility] pressure Diastolic blood 2023-02-27 00:45:00 77 mm[Hg] [facility] pressure Heart rate 2023-02-27 00:45:00 88 /min [facility] Body temperature 2023-02-27 00:45:[address] [facility] Respiratory rate 2023-02-27 00:45:00 19 /min [facility] Oxygen saturation in 2023-02-27 00:45:00 97 /min [facility] Arterial blood by Pulse oximetry Body height 2023-02-26 23:18:00 152.4 cm [facility] Body weight 2023-02-26 23:18:00 79.379 kg [facility] BMI 2023-02-26 23:18:00 34.18 kg/m2 [facility] Systolic blood 2022-07-22 19:04:00 122 mm[Hg] [facility] pressure Diastolic blood 2022-07-22 19:04:00 72 mm[Hg] [facility] Heart rate 2022-07-22 19:04:00 72 /min [facility] Respiratory rate 2022-07-22 19:04:00 18 /min [facility] Oxygen saturation in 2022-07-22 19:04:00 100 /min [facility] Arterial blood by Pulse oximetry Body temperature 2022-07-22 17:04:[address] [facility] Body height 2022-07-22 17:04:00 157.5 cm [facility] Body weight 2022-07-22 17:04:00 85.276 kg [facility] BMI 2022-07-22 17:04:00 34.39 kg/m2 [facility] Systolic blood 2022-03-26 13:44:00 139 mm[Hg] Method [facility] Hospital pressure Diastolic blood 2022-03-26 13:44:00 83 mm[Hg] [facility] pressure Heart rate 2022-03-26 13:44:00 101 /min [facility] Respiratory rate 2022-03-26 13:44:00 18 /min [facility] Oxygen saturation in 2022-03-26 13:44:00 100 /min [facility] Arterial blood by Pulse oximetry Body temperature 2022-03-26 12:32:[address] [facility] Body height 2022-03-26 12:32:00 157.5 cm [facility] Body weight 2022-03-26 12:32:00 85.276 kg [facility] BMI 2022-03-26 12:32:00 34.39 kg/m2 [facility] Procedures Procedure Date / Time Performing Clinician Source Performed AMYLASE 2023-05-03 02:21:00 Adum, Gely Ruiz [facility] LIPASE 2023-05-03 02:21:00 Adum, [facility] COMP. METABOLIC PANEL 2023-05-03 02:21:00 Adum, Gely [facility] ([id number]) [facility] CBC WITH DIFF 2023-05-03 02:21:00 Adum, Gely [facility] Medical Branch NOTICE OF PRIVACY 2023-05-03 01:23:40 Doctor Unassigned, No [facility] PRACTICES Name Medical Branch CONSENT/REFUSAL FOR 2023-05-03 01:21:53 Doctor Unassigned, No [facility] DIAGNOSIS AND TREATMENT Name Medical Branch ASSIGNMENT OF BENEFITS 2023-05-03 01:21:34 Doctor Unassigned, No [facility] Name Medical Branch MR LUMBAR SPINE WO 2023-03-08 19:34:24 Deann Mosley [facility] Medical Branch MR THORACIC SPINE WO 2023-03-08 19:24:14 Deann Mosley [facility] CONTRAST [facility] XR HAND 3+ VW BILATERAL 2023-03-08 14:54:00 Deann Mosley [facility] BASIC METABOLIC PANEL 2023-03-08 11:38:00 Deann Mosley [facility] (NA, K, CL, CO2, Medical Branch GLUCOSE, BUN, CREATININE, CA) CBC WITHOUT DIFF 2023-03-08 11:38:00 Deann Mosley [facility] CT CERVICAL SPINE WO 2023-03-07 19:52:00 Lorena Penaloza [facility] CONTRAST [facility] CT HEAD WO CONTRAST 2023-03-07 19:52:00 Lorena Penaloza [facility] Medical [place] CT THORAX WO CONTRAST 2023-03-07 19:52:00 Lorena Penaloza [facility] US FIRST 2023-03-07 16:34:08 Michael Mcknight [facility] TRIMESTER LESS THAN 14 Medical [place] WEEKS URINE DRUG (IMMUNOASSAY) 2023-03-07 15:52:00 Michael Mcknight [facility] DRUG Medical [facility] SCREEN URINALYSIS 2023-03-07 15:52:00 Michael Mcknight [facility] BASIC METABOLIC PANEL 2023-03-07 14:16:00 Michael Mcknight [facility] (NA, K, CL, CO2, Medical Branch GLUCOSE, BUN, CREATININE, CA) CBC WITH DIFF 2023-03-07 14:16:00 Michael Mcknight [facility] URINE CULTURE 2023-02-26 23:32:00 [facility] Hermann [facility] COVID-19, INFLUENZA A&B, 2023-02-26 23:32:00 WallaceHermann Hal [facility] [place] AND RSV QUALITATIVE RT-PCR URINALYSIS 2023-02-26 23:32:00 [facility] ASSIGNMENT OF BENEFITS 2023-02-15 22:59:54 Doctor Unassigned, No [facility] CONSENT/REFUSAL FOR 2023-02-15 22:56:23 Doctor Unassigned, No [facility] DIAGNOSIS AND TREATMENT [facility] URINE CULTURE 2023-02-15 02:50:00 [facility] US SINGLE LESS 2023-02-15 02:03:00 Ifrah, [facility] THAN 14 WEEKS [facility] URINALYSIS 2023-02-15 00:54[facility]00 [facility], URINE 2023-02-15 00:54:00 [facility] SCREEN [facility] POCT TEST 2023-01-18 13:47:00 Maicol Dumont Uni versity of [facility] POCT URINALYSIS W/O 2023-01-18 13:47:[address] [facility] SPECIFIC GRAVITY [facility] ASSIGNMENT OF BENEFITS 2023-01-18 13:07:36 Doctor Unassigned, No [facility] D-DIMER 2022-12-15 02:19:00 Tricia Simmons [place] [facility] f [facility] CT ABDOMEN PELVIS WO 2022-12-14 23:46:00 Tricia Simmons [facility] CONTRAST [facility] Branch RAPID INFLUENZA A/B 2022-12-14 22:46:00 Tricia Simmons [facility] COVID-19 (ID NOW RAPID 2022-12-14 22:46:00 Tricia Simmons [facility] TESTING) Medical Branch POCT TEST 2022-12-14 21:51:00 Tricia Simmons [facility] LIPASE 2022-12-14 21:44:00 Tricia Simmons [place] [facility] MAGNESIUM 2022-12-14 21:44:00 Tricia Simmons [facility] COMP. METABOLIC PANEL 2022-12-14 21:44:00 Tricia Simmons [facility] ([id number]) [facility] CBC WITH DIFF 2022-12-14 21:44:00 Tricia Simmons [facility] URINALYSIS 2022-12-14 21:44:00 Troy [facility] CONSENT/REFUSAL FOR 2022-12-14 20:43:36 Doctor Unassigned, No [facility] [place] DIAGNOSIS AND TREATMENT Name [facility] POCT TEST 2022-10-19 15:07:00 Vasu Hutson [facility] LIPASE 2022-10-19 13:44:00 Vasu Hutson [facility] COMP. METABOLIC PANEL 2022-10-19 13:44:00 Vasu Hutson [facility] ([id number]) [facility] CBC WITH DIFF 2022-10-19 13:44:00 Vasu Hutson [facility] CONSENT/REFUSAL FOR 2022-10-19 13:14:52 [facility]igned, [facility] [place] [facility] Name [facility] URINE CULTURE 2022-07-22 19:12:00 Nash Schwab [facility] COMPREHENSIVE METABOLIC 2022-07-22 17:33:00 Nash Schwab [facility] PANEL ESTIMATED GFR 2022-07-22 17:33:00 Nash Schwab [facility] CT RENAL STONE PROTOCOL 2022-07-22 17:13:55 Nash Schwab [facility] CBC WITH PLATELET AND 2022-07-22 16:33:00 Nash Schwab [facility] DIFFERENTIAL COMPREHENSIVE METABOLIC 2022-07-22 16:33:00 Nash Schwab [facility] PANEL ESTIMATED GFR 2022-07-22 16:33:00 ZaheerNash nicholas [facility] URINALYSIS SCREEN AND 2022-07-22 16:22:00 [facility] WITH REFLEX TO CULTURE US PELVIS COMPLETE WITH 2022-05-29 02:07:00 Lorena Simpson Un [facility] TRANSVAGINAL [facility] CT ABDOMEN PELVIS W 2022-05-29 00:28:13 Calvin Lorena [facility] CONTRAST [facility] COMP. METABOLIC PANEL 2022-05-29 00:07:00 [facility] ([id number]) [facility] CBC WITH DIFF 2022-05-29 00:07:00 Lorena Simpson [facility] URINALYSIS 2022-05-28 23:56:00 Lorena Simpson [facility] POCT TEST 2022-05-28 23:53:00 Lorena Simpson [facility] CONSENT/REFUSAL FOR 2022-05-28 23:40:29 Doctor Unassigned, No Un [facility] DIAGNOSIS AND TREATMENT Name [facility] URINALYSIS 2022-03-26 13:06:00 [facility]AL[facility], URINE 2022-03-26 13:06:00 [facility] SCREEN URINALYSIS 2022-03-26 13:06[facility], URINE 2022-03-26 13:06:00 [facility] SCREEN CBC WITH PLATELET AND 2022-03-26 12:46:00 RicardoAnia Ghosh [facility] DIFFERENTIAL COMPREHENSIVE METABOLIC 2022-03-26 12:46:00 [facility] PANEL ESTIMATED GFR 2022-03-26 12:46:00 [facility] CBC WITH PLATELET AND 2022-03-26 12:46:00 RicardoAnia Santos [facility] DIFFERENTIAL POCT TEST 2022-02-27 04:56:00 Afsaneh Car [facility] LIPASE 2022-02-27 04:04:00 Afsaneh Car [facility] TROPONIN I 2022-02-27 04:04:00 Afsaneh Car [facility] THYROID STIMULATING 2022-02-27 04:04:00 Afsaneh Car [facility] HORMONE [facility] COMP. METABOLIC PANEL 2022-02-27 04:04:00 Afsaneh Car [facility] ([id number]) [facility] CBC WITH DIFF 2022-02-27 04:04:00 Afsaneh Car [facility] URINALYSIS 2022-02-27 03:56:00 Afsaneh Car [facility] URINE DRUG (IMMUNOASSAY) 2022-02-27 03:56:00 Afsaneh Car Un [facility] - [facility] DRUG Medical [facility] SCREEN W/O REFLEX NOTICE OF PRIVACY 2022-02-27 03:05:57 Doctor Unassigned, No [facility] PRACTICES Name [facility] CONSENT/REFUSAL FOR 2022-02-27 03:04:00 [facility] Unassigned, No [facility] Name [facility] COMPREHENSIVE METABOLIC 2022-02-18 05:17:00 Carlos Hernandez [facility] PANEL ESTIMATED GFR 2022-02-18 05:17:00 Carlos Hernandez spital COMPREHENSIVE METABOLIC 2022-02-18 04:38:[address] [facility] PANEL ESTIMATED GFR 2022-02-18 04:38:[address] ABDOMEN PELVIS WO 2022-02-18 04:17:35 [facility] 2022-02-18 04:00:00 Carlos Hernandez spital CBC WITH PLATELET AND 2022-02-18 04:00:00 Carlos Hernandez [facility] DIFFERENTIAL COMPREHENSIVE METABOLIC 2022-02-18 04:00:[address] [facility] PANEL ESTIMATED GFR 2022-02-18 04:00:00 Carlos Hernandez spital HCG QUALITATIVE, URINE 2022-02-18 02:50:00 Carlos Hernandez [facility] SCREEN URINALYSIS 2022-02-18 02:50:00 Carlos Hernandez spital RAPID STREP SCREEN FOR 2020-12-31 07:13:00 Akiko Dunaway [facility] A [facility] NOTICE OF PRIVACY 2020-12-31 06:34:54 Doctor Unassigned, No [facility] PRACTICES [facility] CONSENT/REFUSAL FOR 2020-12-31 06:34:35 Doctor Unassigned, No [facility] CT HEAD WO CONTRAST 2020-11-20 18:18:22 John Beckham [facility] POCT TEST 2020-11-20 17:50:00 John Beckham [facility] BASIC METABOLIC PANEL 2020-11-20 17:24:00 John Beckham [facility] (NA, K, CL, CO2, Medical Branch GLUCOSE, BUN, CREATININE, CA) CBC WITH DIFF 2020-11-20 17:24:00 John Beckham [facility] CONSENT/REFUSAL FOR 2020-11-20 16:36:59 Doctor Unassigned, No [facility] AND [facility] POCT TEST 2020-09-27 02:56:00 Tricia Simmons [facility] ASSIGNMENT OF BENEFITS 2020-09-27 01:35:31 Doctor Unassigned, No [facility] CONSENT/REFUSAL FOR 2020-09-26 23:26:24 Doctor Unassigned, No [facility] AND [facility] URINALYSIS 2020-07-17 14:08:00 Wild Cowart [facility] POCT TEST 2020-07-17 14:08:00 Wild Cowart [facility] CBC WITH DIFF 2020-07-17 12:25:00 Wild Cowart [facility] NOTICE OF PRIVACY 2020-07-17 11:48:39 Doctor Unassigned, No Univ [facility] PRACTICES Name Medical Branch CONSENT/REFUSAL FOR 2020-07-17 11:44:41 Doctor Unassigned, No Un i[facility]ity [facility] DIAGNOSIS AND TREATMENT Name Medical [facility] Plan of Care Planned Activity Planned Date Details Comments Source Future Scheduled 2023-04-23 COVID-[address] [facility] 01:51:08 (#1) [code = COVID-19 VACCINE (#1)] Future Scheduled 2023-04-23 [facility] 01:51:08 screening (procedure) [code = 418223394] Future Scheduled 2023-04-23 [facility] 01:51:08 malignant neoplasm of cervix (procedure) [code = 852856977] Future Scheduled 2023-04-23 [facility]ACCINE [facility] 01:51:08 (#1) [code = INFLUENZA VACCINE (#1)] Future Scheduled 2023-04-05 COVID-[address] [facility] Test 10:31:44 (#1) [code = COVID-19 VACCINE (#1)] Future Scheduled 2023-04-05 [facility] 10:31:44 screening (procedure) [code = 420200808] Future Scheduled 2023-04-05 [facility] 10:31:44 malignant neoplasm of cervix (procedure) [code = 278463375] Future Scheduled 2023-04-05 [facility] 10:31:44 (#1) [code = INFLUENZA VACCINE (#1)] Future Scheduled 2023-04-05 [facility]-[address] [facility] Test 10:31:44 (#1) [code = COVID-19 VACCINE (#1)] Future Scheduled 2023-04-05 [facility] 10:31:44 screening (procedure) [code = 702759572] Future Scheduled 2023-04-05 [facility] 10:31:44 malignant neoplasm of cervix (procedure) [code = 104668814] Future Scheduled 2023-04-05 [facility] 10:31:44 (#1) [code = INFLUENZA VACCINE (#1)] Future Scheduled 2023-04-03 COVID-[address] [facility] Test 09:07:22 (#1) [code = COVID-19 VACCINE (#1)] Future Scheduled 2023-04-03 [facility] 09:07:22 screening (procedure) [code = 782726310] Future Scheduled 2023-04-03 [facility] 09:07:22 malignant neoplasm of cervix (procedure) [code = 196848580] Future Scheduled 2023-04-03 [facility] 09:07:22 (#1) [code = INFLUENZA VACCINE (#1)] Future Scheduled 2023-03-04 COVID-[address] [facility] Test 06:32:21 (#1) [code = COVID-19 VACCINE (#1)] Future Scheduled 2023-03-04 [facility] 06:32:21 screening (procedure) [code = 839856386] Future Scheduled 2023-03-04 [facility] 06:32:21 malignant neoplasm of cervix (procedure) [code = 138939419] Future Scheduled 2023-03-04 [facility] 06:32:21 (#1) [code = INFLUENZA VACCINE (#1)] Future Scheduled 2023-03-04 [facility]-[address] [facility] Test 06:32:21 (#1) [code = COVID-19 VACCINE (#1)] Future Scheduled 2023-03-04 [facility] 06:32:21 screening (procedure) [code = 478296434] Future Scheduled 2023-03-04 [facility] 06:32:21 malignant neoplasm of cervix (procedure) [code = 691555373] Future Scheduled 2023-03-04 [facility] 06:32:21 (#1) [code = INFLUENZA VACCINE (#1)] Future Scheduled 2023-01-04 COVID-[address] [facility] Test 20:06:27 (#1) [code = COVID-19 VACCINE (#1)] Future Scheduled 2023-01-04 [facility] 20:06:27 screening (procedure) [code = 252610910] Future Scheduled 2023-01-04 [facility] 20:06:27 malignant neoplasm of cervix (procedure) [code = 906398134] Future Scheduled 2023-01-04 [facility] 20:06:27 [code = INFLUENZA VACCINE] Future Scheduled 2023-01-04 COVID-[address] [facility] Test 20:06:27 (#1) [code = COVID-19 VACCINE (#1)] Future Scheduled 2023-01-04 [facility] 20:06:27 screening (procedure) [code = 454796844] Future Scheduled 2023-01-04 [facility] 20:06:27 malignant neoplasm of cervix (procedure) [code = 051455444] Future Scheduled 2023-01-04 [facility] 20:06:27 [code = INFLUENZA VACCINE] Future Scheduled 2022-10-03 [facility] 02:09:31 (#1) [code = COVID-19 VACCINE (#1)] Future Scheduled 2022-10-03 [facility] 02:09:31 screening (procedure) [code = 026119783] Future Scheduled 2022-10-03 [facility] 02:09:31 malignant neoplasm of cervix (procedure) [code = 953012385] Future Scheduled 2022-10-03 [facility] 02:09:31 [code = INFLUENZA VACCINE] Future Scheduled 2022-10-03 [facility] 02:09:31 (#1) [code = COVID-19 VACCINE (#1)] Future Scheduled 2022-10-03 [facility] 02:09:31 screening (procedure) [code = 342988854] Future Scheduled 2022-10-03 [facility] 02:09:31 malignant neoplasm of cervix (procedure) [code = 370896417] Future Scheduled 2022-10-03 [facility] 02:09:31 [code = INFLUENZA VACCINE] Future Scheduled 2022-10-03 [facility] 02:09:31 (#1) [code = COVID-19 VACCINE (#1)] Future Scheduled 2022-10-03 [facility] 02:09:31 screening (procedure) [code = 584282856] Future Scheduled 2022-10-03 [facility] 02:09:31 malignant neoplasm of cervix (procedure) [code = 673749935] Future Scheduled 2022-10-03 [facility] 02:09:31 [code = INFLUENZA VACCINE] Future Scheduled 2022-09-07 COVID-[address] [facility] Test 16:46:36 (#1) [code = COVID-19 VACCINE (#1)] Future Scheduled 2022-09-07 [facility] 16:46:36 screening (procedure) [code = 490065377] Future Scheduled 2022-09-07 [facility] 16:46:36 malignant neoplasm of cervix (procedure) [code = 255925657] Future Scheduled 2022-09-07 [facility] 16:46:36 [code = INFLUENZA VACCINE] Future Scheduled 2022-09-07 [facility] 16:46:36 (#1) [code = COVID-19 VACCINE (#1)] Future Scheduled 2022-09-07 [facility] 16:46:36 screening (procedure) [code = 894182844] Future Scheduled 2022-09-07 [facility] 16:46:36 malignant neoplasm of cervix (procedure) [code = 772864602] Future Scheduled 2022-09-07 [facility] 16:46:36 [code = INFLUENZA VACCINE] Future Scheduled 2022-09-07 [facility] 16:46:36 (#1) [code = COVID-19 VACCINE (#1)] Future Scheduled 2022-09-07 [facility] 16:46:36 screening (procedure) [code = 266277648] Future Scheduled 2022-09-07 [facility] 16:46:36 malignant neoplasm of cervix (procedure) [code = 352483053] Future Scheduled 2022-09-07 [facility] 16:46:36 [code = INFLUENZA VACCINE] Future Scheduled 2022-07-30 COVID-[address] [facility] Test 22:48:12 (#1) [code = COVID-19 VACCINE (#1)] Future Scheduled 2022-07-30 [facility] 22:48:12 screening (procedure) [code = 647409434] Future Scheduled 2022-07-30 [facility] 22:48:12 malignant neoplasm of cervix (procedure) [code = 518811594] Future Scheduled 2022-07-30 [facility] 22:48:12 [code = INFLUENZA VACCINE] Future Scheduled 2022-07-23 COVID-[address] [facility] Test 22:23:51 (#1) [code = COVID-19 VACCINE (#1)] Future Scheduled 2022-07-23 [facility] 22:23:51 screening (procedure) [code = 565936918] Future Scheduled 2022-07-23 [facility] 22:23:51 malignant neoplasm of cervix (procedure) [code = 438130014] Future Scheduled 2022-07-23 [facility] 22:23:51 [code = INFLUENZA VACCINE] Future Scheduled 2022-07-23 COVID-[address] [facility] Test 14:05:40 (#1) [code = COVID-19 VACCINE (#1)] Future Scheduled 2022-07-23 [facility] 14:05:40 screening (procedure) [code = 014842918] Future Scheduled 2022-07-23 [facility] 14:05:40 malignant neoplasm of cervix (procedure) [code = 757378286] Future Scheduled 2022-07-23 [facility] 14:05:40 [code = INFLUENZA VACCINE] Future Scheduled 2022-07-16 COVID-[address] [facility] Test 00:01:34 (#1) [code = COVID-19 VACCINE (#1)] Future Scheduled 2022-07-16 [facility] 00:01:34 screening (procedure) [code = 093971851] Future Scheduled 2022-07-16 [facility] 00:01:34 malignant neoplasm of cervix (procedure) [code = 311431825] Future Scheduled 2022-07-16 [facility] 00:01:34 [code = INFLUENZA VACCINE] Future Scheduled 2022-06-20 [facility] 00:27:46 (#1) [code = COVID-19 VACCINE (#1)] Future Scheduled 2022-06-20 [facility] 00:27:46 screening (procedure) [code = 362919852] Future Scheduled 2022-06-20 [facility] 00:27:46 malignant neoplasm of cervix (procedure) [code = 774025362] Future Scheduled 2022-06-20 [facility] 00:27:46 [code = INFLUENZA VACCINE] Future Scheduled 2022-06-12 [facility] 16:29:41 (#1) [code = COVID-19 VACCINE (#1)] Future Scheduled 2022-06-12 [facility] 16:29:41 screening (procedure) [code = 970566312] Future Scheduled 2022-06-12 [facility] 16:29:41 [code = INFLUENZA VACCINE] Future Scheduled 2022-04-29 [facility] 09:57:18 VACCINES (1 of 3 - 3-dose series) [code = HEPATITIS B VACCINES (1 of 3 - 3-dose series)] Future Scheduled 2022-04-29 [facility] 09:57:18 (#1) [code = COVID-19 VACCINE (#1)] Future Scheduled 2022-04-29 [facility] 09:57:18 screening (procedure) [code = 051239928] Future Scheduled 2022-04-29 [facility] 09:57:18 malignant neoplasm of cervix (procedure) [code = 179651574] Future Scheduled 2022-04-29 [facility] 09:57:18 [code = INFLUENZA VACCINE] Future Scheduled 2022-03-26 [facility] 18:56:00 VACCINES (1 of 3 - 3-dose series) [code = HEPATITIS B VACCINES (1 of 3 - 3-dose series)] Future Scheduled 2022-03-26 [facility] 18:56:00 (#1) [code = COVID-19 VACCINE (#1)] Future Scheduled 2022-03-26 [facility] 18:56:00 screening (procedure) [code = 974433298] Future Scheduled 2022-03-26 [facility] 18:56:00 malignant neoplasm of cervix (procedure) [code = 338787352] Future Scheduled 2022-03-26 [facility] 18:56:00 [code = INFLUENZA VACCINE] Future Scheduled 2022-03-26 [facility] 18:56:00 VACCINES (1 of 3 - 3-dose series) [code = HEPATITIS B VACCINES (1 of 3 - 3-dose series)] Future Scheduled 2022-03-26 [facility] 18:56:00 (#1) [code = COVID-19 VACCINE (#1)] Future Scheduled 2022-03-26 [facility] 18:56:00 screening (procedure) [code = 528769256] Future Scheduled 2022-03-26 [facility] 18:56:00 malignant neoplasm of cervix (procedure) [code = 261490515] Future Scheduled 2022-03-26 [facility] 18:56:00 [code = INFLUENZA VACCINE] Future Scheduled 2022-03-26 [facility] 18:56:00 VACCINES (1 of 3 - 3-dose series) [code = HEPATITIS B VACCINES (1 of 3 - 3-dose series)] Future Scheduled 2022-03-26 [facility] (#[facility] [code = COVID-19 VACCINE (#1)] Future Scheduled 2022-03-26 [facility] 18:56:00 screening (procedure) [code = 067274494] Future Scheduled 2022-03-26 [facility] 18:56:00 malignant neoplasm of cervix (procedure) [code = 483758035] Future Scheduled 2022-03-26 [facility] 18:56:00 [code = INFLUENZA VACCINE] Future Scheduled 2022-03-26 [facility] 08:33:14 VACCINES (1 of 3 - 3-dose series) [code = HEPATITIS B VACCINES (1 of 3 - 3-dose series)] Future Scheduled 2022-03-26 COVID-[address] [facility] Test 08:33:14 (#1) [code = COVID-19 VACCINE (#1)] Future Scheduled 2022-03-26 [facility] 08:33:14 screening (procedure) [code = 292675873] Future Scheduled 2022-03-26 [facility] 08:33:14 malignant neoplasm of cervix (procedure) [code = 187673182] Future Scheduled 2022-03-26 [facility] 08:33:14 [code = INFLUENZA VACCINE] Future Scheduled COVID-[address] [facility] Test (1) [code = COVID-19 VACCINE (1)] Future Scheduled [facility] screening (procedure) [code = 214041449] Future Scheduled [facility] Test malignant neoplasm of cervix (procedure) [code = 071698852] Future Scheduled [facility] [code = INFLUENZA VACCINE] Encounters Start End Encounter Admission Attending Care Care Encounter Source Date/Time Date/Time Type Type Clinicians Facility Department ID 2023-05-02 Outpatient X [facility] MARILYN [id number] [facility] [id number] [place] 10:32:[id number] [facility] 2021-04-28 Emergency [facility] [id number] Univers 06:08:31 ity [facility] 2021-04-27 Emergency [facility] [id number] Univers 21:27:31 ity [facility] 2021-04-27 Emergency [facility] [id number] Univers 10:13:04 ity [facility] 2021-04-26 Emergency [facility] [place] [id number] Univers 18:11:30 ity [facility] 2023-05-02 2023-05-02 Outpatient X AUBREY, MAMB MARILYN [id number] Univers 19:40:00 21:15:00 GELY khan [facility] 2023-05-02 2023-05-02 Emergency Dani Kauffman [facility] 1.2.840. 114 [id number] Univers 19:40:00 21:15:00 Gely Velarde [id number] ity of [place] 4.2.7.2.686 [facility] [phone] [facility] 083 Branch 2023-05-02 2023-05-02 Orders Doctor RANDAL 1.2.840.114 [id number] Univers 00:00:00 00:00:00 Only Unassigned, EITAN 350.1.13.10 [facility] 4.2.7.2.686 [facility] [id number] [facility] 009 Branch 2023-04-23 2023-04-23 Outpatient GC_SWHATBIC PRIV PRIV 145 [id number] [facility] 00:00:00 00:00:00 _Bruce [id number] Medic al 2023-04-23 2023-04-23 Outpatient GC_SWHAOMC_ PRIV PRIV 145 [id number] [facility] 00:00:00 00:00:00 Shelton_G [id number] [facility] 2023-04-23 2023-04-23 Outpatient GC_SWHAOMC_ PRIV PRIV 145 [id number] [facility] 00:00:00 00:00:00 Shelton_G [id number] [facility] 2023-04-23 2023-04-23 Outpatient GC_SWHAOMC_ PRIV PRIV 145 [id number] [facility] 00:00:00 00:00:00 Shelton_G [id number] [facility] 2023-04-21 2023-04-21 Outpatient GC_SWHATBIC PRIV PRIV 145 [id number] [facility] 00:00:00 00:00:00 _Shelton [id number] Medic al 2023-04-21 2023-04-21 Outpatient GC_SWHAOMC_ PRIV PRIV 145 [id number] [facility] 00:00:00 00:00:00 Shelton_G [id number] [facility] 2023-03-24 2023-03-24 Outpatient GC_SWHAOMC_ PRIV PRIV 145 [id number] [facility] 00:00:00 00:00:00 Shelton_G [id number] [facility] 2023-03-24 2023-03-24 Outpatient GC_SWHAOMC_ PRIV PRIV 145 [id number] [facility] 00:00:00 00:00:00 Shelton_G [id number] [facility] 2023-03-242023-03-24 Outpatient GC_SWHAOMC_ PRIV PRIV 145 [id number] [facility] 00:00:00 00:00:00 Tj [id number] [facility] 2023-03-17 2023-03-17 Outpatient GC_SWHAOMC_ PRIV PRIV 145 [id number] [facility] 00:00:00 00:00:00 Tj [id number] [facility] 2023-03-17 2023-03-17 Patient Doctor RANDAL 1.2.840.114 [id number] Univers 00:00:00 00:00:00 Secure Msg Unassigned, EITAN 350.1.13.[address] [facility] 4.2.7.2.686 Ryan as [id number] [address] 2023-03-07 2023-03-08 [facility] [id number] Univers 14:14:00 20:00:00 RICKY khan [facility] 2023-03-07 2023-03-08 Emergency Lincoln TROY 1.2.840.114 [id number] Univers 14:14:00 20:00:00 Ricky LAIRD 350.1.13.10 it y [facility] 4.2.7.2.686 Ryan as [id number] [address] 2023-03-07 2023-03-07 Emergency X [facility] ERT [id number] Univers 08:49:00 13:01:00 MICHAEL khan [facility] 2023-03-07 2023-03-07 Emergency [facility] 1.2.257.187 [id number] Univers 08:49:00 13:01:00 Michael HUMPHREYS 350.1.13.10 [facility] 4.2.7.2.686 [id number] [address] 2023-03-04 2023-03-04 Outpatient GC_SWHAOMC_ PRIV PRIV 145 [id number] [facility] 00:00:00 00:00:00 Tj [id number] [facility] 2023-03-03 2023-03-03 Outpatient GC_SWHAOMC_ PRIV PRIV 145 [id number] [facility] 00:00:00 00:00:00 Bruce_G [id number] [facility] 2023-02-26 2023-02-26 Emergency Gokal, 1.2.840.1 [id number] Methodi 18:13:00 19:48:[address] 3.430.2.7 Hospit a .3.911909 l .8 2023-02-26 2023-02-26 Emergency Gokal, 1.2.840.1 [id number] [id number] Methodi 18:13:00 19:48:[address] 3.430.2.7 Hospit a .3.042235 l .8 2023-02-26 2023-02-26 Travel 1.2.840.1 1.2.035.422 [id number] [facility]i 00:00:00 00:00:[address] 3.430.2.7 0.2.7.3.698 Ho spita .3.562785 084.8 l .8 2023-02-26 2023-02-26 Travel 1.2.840.1 1.2.227.792 [id number] [facility]i 00:00:00 00:00:[address] 3.430.2.7 0.2.7.3.698 Ho spita .3.464548 084.8 l .8 2023-02-18 2023-02-18 Outpatient GC_SWHAOMC_ PRIV PRIV 145 [id number] [facility] 00:00:00 00:00:00 Bruce_G [id number] [facility] 2023-02-18 2023-02-18 Outpatient GC_SWHAOMC_ PRIV PRIV 145 [id number] [facility] 00:00:00 00:00:00 Lenoratrenton_G [id number] [facility] 2023-02-17 2023-02-17 [facility] 1.2.840.114 [id number] [facility] 00:00:00 00:00:00 Maicol Hurley [employer] TEACHER 350.1.13.10 ity [facility] 4.2.7.2.686 Ryan as MATERNAL [phone] Med ical & CHILD [address] [place] [address] 2023-02-15 2023-02-15 Emergency X HERI [facility] ERT [id number] Univers 18:06:00 19:32:00 MENDY itnirali [facility] 2023-02-15 2023-02-15 [facility] 1.2.697.809 [id number] Univers 18:06:00 19:32:00 [facility] 350.1.13.10 i ty [facility] 4.2.7.2.[place] [id number] [address] 2023-02-15 2023-02-15 Outpatient GC_SWHAOMC_ PRIV PRIV 145 [id number] [facility] 00:00:00 00:00:00 Tj [id number] [facility] 2023-02-14 2023-02-14 Emergency Ifrah, 1.2.840.1 [id number] Methodi 19:44:00 22:11:[address] [facility] [facility] 3.430.2.7 Ho spita .3.553325 l .8 2023-02-14 2023-02-14 Emergency Ifrah, 1.2.840.1 [id number] Methodi 19:44:00 22:11:[address] [facility] 3.430.2.7 Ho spita .3.008352 l .8 2023-02-01 2023-02-01 Outpatient R [facility] [id number] Univers 10:30:00 10:30:[address] 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 2023-01-18 2023-01-18 Initial [facility] 1.2.356.538 [id number] 14374 Univers 08:30:00 10:14:57 Maicol C ATOMIC PHYSICS TEACHER 350.1.13.10 ity of Visit REGIONAL 4.2.7.2.686 Ryan as MATERNAL [id number] [address] 2023-01-18 2023-01-18 Orders Doctor RANDAL 1.2.840.114 [id number] Univers 00:00:00 00:00:00 Only Unassigned, EITAN 350.1.13.10 ity of [place] [facility] 4.2.7.2.686 Ryan as [id number] [address] 2022-12-26 2022-12-26 Outpatient GC_SWOM_ PRIV PRIV 145 57457-3 [facility] 00:00:00 00:00:00 Tj [id number] [facility] 2022-12-14 2022-12-14 Emergency X Tricia SIMMONS [facility] ERT [id number] Univers 15:55:00 23:49:[address] [facility] 2022-12-14 2022-12-14 Emergency Tricia Simmons [facility] 1.2.840.114 10 [id number] Univers 15:55:00 23:49:00 Lluvia HUMPHREYS 350.1.13.10 i ty of [place] [id number] [address] 2022-10-19 2022-10-19 Emergency X [facility] ERT [id number] Univers 08:24:00 11:10:[address] [facility] 2022-10-19 2022-10-19 Emergency [facility] 1.2.840.114 10 [id number] Univers 08:24:00 11:10:00 Dereko Saran HUMPHREYS 350.1.13.10 ity [facility] 4.2.7.2.686 [facility] [phone] [address] 2022-10-19 2022-10-19 Patient Doctor RANDAL 1.2.840.114 [id number] Univers 00:00:00 00:00:00 Secure Msg Unassigned, EITAN 350.1.13.10 ity of [facility] 4.2.7.2.686 Ryan as [id number] [place] [address] [address] 2022-07-22 2022-07-22 Emergency Zaheer, 1.2.840.1 [id number] Methodi 10:01:00 13:05:00 Nash Conteh 29605.1.1 054 s t 3.430.2.7 Hospit a .3.082346 l .8 2022-07-22 2022-07-22 Emergency Zaheer, 1.2.840.1 [id number] Methodi 10:01:00 13:05:00 Nash Conteh 12106.1.1 054 s t 3.430.2.7 Hospit a .3.034424 l .8 2022-07-22 2022-07-22 Travel 1.2.840.1 1.2.031.817 7909 [id number] Methodi 00:00:00 00:00:[address] 3.430.2.7 0.2.7.3.698 [facility]29[facility] 084.8 l .8 2022-07-22 2022-07-22 Travel 1.2.840.1 1.2.214.515 0154 [id number] Methodi 00:00:00 00:00:[address] 3.430.2.7 0.2.7.3.698 Ho spita .3.801280 084.8 l .8 2022-05-28 2022-05-28 Emergency X HERI [facility] ERT [id number] Univers 17:47:00 22:35:00 MENDY [facility] 2022-05-28 2022-05-28 Emergency TrinymieshaLorena hurley [facility] 1.2.840.114 [id number] [facility] 17:47:00 22:35:00 Mendy Liriano 350.1.13.10 [facility] 4.2.7.2.686 [facility] [id number] [address] 2022-03-26 2022-03-26 Emergency Silva-Eulalia 1.2.840.1 [id number] Methodi 07:24:00 08:46:[address] 3.430.2.7 Hospit a .3.465272 l .8 2022-03-26 2022-03-26 Travel 1.2.840.1 1.2.148.117 7151 [id number] Methodi 00:00:00 00:00:[address] 3.430.2.7 0.2.7.3.698 Ho spita .3.782201 084.8 l .8 2022-02-26 2022-02-27 Emergency Kami [facility] ERT [id number] Univers 22:26:00 00:44:00 AFSANEH khan [facility] 2022-02-26 2022-02-27 [facility] 1.2.115.288 [id number] [facility] 22:26:00 00:44:00 Afsaneh HUMPHREYS 350.1.13.10 ity of [facility] 4.2.7.2.686 [facility] [id number] [address] 2022-02-17 2022-02-18 Emergency Nuszen, 1.2.840.1 [id number] [id number] Methodi 21:45:00 01:49:[address]00.1.[address] 3.430.2.7 Hospit a .3.606540 l .8 2022-02-17 2022-02-17 Travel 1.2.840.1 1.2.986.147 3815 [id number] Methodi 00:00:00 00:00:[address] 3.430.2.7 0.2.7.3.698 Ho spita .3.628064 084.8 l .8 2020-12-31 2020-12-31 Emergency [facility] 1.2.840.114 [id number] 02:02:00 03:26:00 Akiko Humphreys 350.1.13.10 [place] 4.2.7.2.686 [place] [id number] 4 2020-12-31 2020-12-31 Emergency [facility] 1.2.840.114 [id number] [facility] 02:02:00 03:26:00 Akiko Humphreys 350.1.13.10 i ty of [place] 4.2.7.2.686 [facility] [id number] [address] 2020-11-20 2020-11-20 Emergency [facility] 1.2.105.983 0947 7828 11:47:00 15:01:00 John Humphreys 350.1.13.10 [place] 4.2.7.2.686 [place] [id number] [facility] 2020-11-20 2020-11-20 Emergency [facility] 1.2.163.756 [id number] [facility] 11:47:00 15:01:00 John Humphreys 350.1.13.10 i ty of [place] 4.2.7.2.686 [facility] [id number] [address] 2020-09-26 2020-09-26 Emergency Tricia Simmons [facility] 1.2.840.114 [id number] 18:51:00 22:39:00 Lluvia Humphreys 350.1.13.10 [place] 4.2.7.2.686 [place] [id number] [facility] 2020-09-26 2020-09-26 Emergency Tricia Simmons [facility] 1.2.840.114 83 [id number] Univers 18:51:00 22:39:00 Lluvia Humphreys 350.1.13.10 i ty of [place] 4.2.7.2.686 [facility] [id number] [address] 2020-08-06 2020-08-06 Emergency X BECKHAM [facility] ERT [id number] Univers 10:13:00 12:49:00 JOHN [facility] 2020-08-01 2020-08-03 [id number] 09:14[facility]00 03:39:32 [facility] 2020-07-17 2020-07-17 Emergency Wild Cowart [facility] 1.2.840 .114 [id number] 05:53:00 08:59:00 Dani Kauffman 350.1.13.10 [place] [address] [place] [address] [id number] [facility] 2020-07-17 2020-07-17 Emergency Wild [place]art [facility] 1.2.840 .114 [id number] [facility] 05:53:00 08:59:00 Dani Kauffman 350.1.13.10 ity of [place] 4.2.7.2.[address] [place] [id number] Results Test Description Test Time Test Comments Results Result Comments Source COMP. METABOLIC PANEL (06750) 2023-05-03 02:59:57 Test Item Value Reference Range Interpretation Comme nts NA (test code = 1772982372) 133 mmol/L 135-145 L K (test code = 8680404725) 4.0 mmol/L 3.5-5.0 CL (test code = 6510422451) 104 mmol/L 98-108 CO2 TOTAL (test code = 19 mmol/L 23-31 L 9778482816) AGAP (test code = 6076920639) 10 2-16 BUN (test code = 8885174999) 9 mg/dL 7-23 GLUCOSE (test code = 82 mg/dL 70-110 9099647660) CREATININE (test code = 0.44 mg/dL 0.50-1.04 L 5077820729) TOTAL BILI (test code = 0.4 mg/dL 0.1-1.7 2708791049) CALCIUM (test code = 8.8 mg/dL 8.6-10.6 4177524716) T PROTEIN (test code = 7.1 g/dL 6.3-8.2 8324330046) ALBUMIN (test code = 3.7 g/dL 3.5-5.0 4038102680) ALK PHOS (test code = 51 U/L 34-122 7276267626) ALTv (test code = 1742-6) 16 U/L 5-35 AST(SGOT) (test code = 14 U/L 13-40 1315530309) eGFR (test code = 84885-4) 135.3 mL/min/1.73m2 CKD-EPI eGFR (2020). Assuming creati nine has been stable day -to-day for at least three months, the eGFR indicates Category G1 (>= 90 mL/min/1 .73 m2) Lab Interpretation (test code = Abnormal 87316-1) [facility] 02:59:57 Test Item Value Reference Range Interpretation Comments LIPASE (test code = 0063224359) 112 U/L 0-220 Lab Interpretation (test code = Normal 87894-7) [facility] 02:59:16 Test Item Value Reference Range Interpretation Comments KEITH (test code = 4256278134) 56 U/L 35-110 Lab Interpretation (test code = Normal 38413-8) [facility] WITH [id number] 02:43:14 Test Item Value Reference Range Interpretation Comments WBC (test code = 8.30 See_Comment [Automated message] 6690-2) The system [employer] generated this result transmitted ref erence range: 4.30 - 1 1.10 10*3/?L. The re ference range was not u sed to interpret this result as normal/abnor mal. RBC (test code = 4.10 See_Comment [Automated message] 789-8) The system [employer] generated this result transmitted ref erence range: 3.93 - 5 .25 10*6/?L. The re ference range was not u sed to interpret this result as normal/abnor mal. HGB (test code = 12.7 g/dL 11.6-15.0 718-7) HCT (test code = 37.4 % 35.7-45.2 4544-3) MCV (test code = 91.2 fL 80.6-95.5 787-2) MCH (test code = 31.0 pg 25.9-32.8 785-6) MCHC (test code = 34.0 g/dL 31.6-35.1 786-4) RDW-SD (test code 44.9 fL 39.0-49.9 = 29492-5) RDW-CV (test code 13.4 % 12.0-15.5 = 788-0) PLT (test code = 294 See_Comment [Automated message] 537-3) The system [employer] generated this result transmitted ref erence range: 166 - 35 8 10*3/?L. The re ference range was not u sed to interpret this result as normal/abnor mal. MPV (test code = 10.3 fL 9.5-12.9 28709-5) NRBC/100 WBC (test 0.0 See_Comment [Automat ed message] code = 1355879127) The [employer] which generated this result transmitted ref erence range: 0.0 - 10 .0 /100 WBCs. The refer ence range was not u sed to interpret this result as normal/abnor mal. NRBC x10^3 (test See_Comment [Automated message] code = 0376251813) The syste m which generated this result transmitted ref erence range: 10*3/?L. The reference range was not used to interpr et this result as normal/abnormal . GRAN MAT (NEUT) % 60.5 % (test code = 770-8) IMM GRAN % (test 0.60 % code = 9899302971) LYMPH % (test code 29.9 % = 736-9) MONO % (test code 6.7 % = 5905-5) EOS % (test code = 1.8 % 713-8) BASO % (test code 0.5 % = 706-2) GRAN MAT 5.02 10*3/uL 1.88-7.09 x10^3(ANC) (test code = 6416200997) IMM GRAN x10^3 0.05 10*3/uL 0.00-0.06 (test code = 6731634996) LYMPH x10^3 (test 2.48 10*3/uL 1.32-3.29 code = 731-0) MONO x10^3 (test 0.56 10*3/uL 0.33-0.92 code = 742-7) EOS x10^3 (test 0.15 10*3/uL 0.03-0.39 code = 711-2) BASO x10^3 (test 0.04 10*3/uL 0.01-0.07 code = 704-7) [facility] CenterInfluenza virus A and B [id number] 19:13:47 Test Item Value Reference Range Interpretation Comments SARS-CoV-2 (COVID-19) RNA Not detected [Presence] in Respiratory specimen by ROSCOE with probe detection (test code = 10350-7) Whether patient resides in a No congregate care setting (test code = 11535-7) Date and time of symptom onset Unknown (test code = 36007-9) Whether the patient was No hospitalized for condition of interest (test code = 94714-7) Whether the patient was admitted No to intensive care unit (ICU) for condition of interest (test code = 39268-8) Whether patient is employed in a No healthcare setting (test code = 53306-1) Whether the patient has symptoms No related to condition of interest (test code = 67483-2) status (test code = No 60249-6) [facility]AL[facility] W/O SPECIFIC [id number] 13:48:00 Test Item Value Reference Range Interpretation [...] code = 3257) 50 Negative - Negative [facility] [id number] 13:47:00 Test Item Value Reference Range Interpretation Comments POCT PREG (test code = 1605) Positive On board controls acceptable with C Yes Line (test code = 3574) POCT PREG LOT # (test code = 3575) POCT PREG TEST DATE (test code = 3576) [facility] Center[facility]-[id number] 03:05:08 Test Item Value Reference Interpretation Comments Range D-DIMER (test code = See_Comment [Autom ated 8111152464) message] The system which generated this result [...] diagnosis. Lab Interpretation Normal (test code = 53452-6) [facility]UM2023-06-19 22:22:54 Test Item Value Reference Range Interpretation Comments MAGNESIUM (test code = 6285227942) 1.8 mg/dL 1.7-2.4 Lab Interpretation (test code = Normal 94964-1) [facility]. METABOLIC PANEL (27730)2022-12-14 22:22:34 Test Item Value Reference Range Interpretation Comments NA (test code = 133 mmol/L 135-145 L 2475297730) K (test code = 4.6 mmol/L 3.5-5.0 8478576870) CL (test code = 101 mmol/L 98-108 2598686606) CO2 TOTAL (test code = 25 mmol/L 23-31 2380980568) AGAP (test code = 7 2-16 2424501930) BUN (test code = 9 mg/dL 7-23 8168571337) GLUCOSE (test code = 99 mg/dL 70-110 5962842244) CREATININE (test code = 0.61 mg/dL 0.50-1.04 9605445154) TOTAL BILI (test code = 1.2 mg/dL 0.1-1.1 H 7755603936) CALCIUM (test code = 9.2 mg/dL 8.6-10.6 3087948624) T PROTEIN (test code = 7.3 g/dL 6.3-8.2 2802492392) ALBUMIN (test code = 4.2 g/dL 3.5-5.0 6230241513) ALK PHOS (test code = 59 U/L 34-122 7578333669) ALTv (test code = 21 U/L 5-35 1742-6) AST(SGOT) (test code = 15 U/L 13-40 6243580534) eGFR (test code = 116.8 mL/min/1.73m2 2021152568) TOBI (test code = TOBI) Association of [...] tests). Lab Interpretation Abnormal (test code = 47761-1) [facility] 22:22:14 Test Item Value Reference Range Interpretation Comments LIPASE (test code = 8856116436) 51 U/L 0-220 Lab Interpretation (test code = Normal 29687-4) [facility] WITH [id number] 22:13:57 Test Item Value Reference Range Interpretation Comments WBC (test code = 14.83 See_Comment H [Automated 3837-2) message] The system which generated this result transmit jd reference range : 4.30 - 11.10 10*3/?L. The reference range was not used to interpret this result as normal/abnormal . RBC (test code = 4.49 See_Comment [Automated 930-8) message] The system which generated this result [...] RDW-SD (test code = 44.9 fL 39.0-49.9 58307-4) RDW-CV (test code = 13.4 % 12.0-15.5 788-0) PLT (test code = 337 See_Comment [Automated 777-3) message] The system which generated this result transmit jd reference range : 166 - 358 10*3/ ?L. The reference range was not u sed to interpret th is result as normal/abnormal . MPV (test code = 10.2 fL 9.5-12.9 98621-0) NRBC/100 WBC (test 0.0 See_Comment [Automat ed code = 0058732623) message] The system which generated this result transmit jd reference range : 0.0 - 10.0 /100 WBCs. The reference range was not used to interpret this result as normal/abnormal . NRBC x10^3 (test code See_Comment [Auto mated =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
--- NOTE | 2023-05-08 15:34 | ER ---
Nurse's Notes [facility] Name: Carla Duncan Age: 27 yrs Sex: Female : 1995 Arrival Date: 05/08/2023 Time: 14:59 Bed 12 Private MD: Diagnosis: 22 weeks gestation of ;Dysuria;UTI/ Urinary tract infection, site not specified Presentation: 05/08 15:05 Chief complaint: Patient states: On Macrobid for UTI for 3 days. Still having lots of ll1 pelvic and vaginal pain. 22 weeks . G5, P2. Coronavirus screen: Client denies travel out of the [place] in the last 14 days. At this time, the client does not indicate any symptoms associated with coronavirus-19. Ebola Screen: Patient denies travel to an Ebola-affected area in the 21 days before illness onset. Initial Sepsis Screen: Does the patient meet any 2 criteria? No. Patient's initial sepsis screen is negative. Does the patient have a suspected source of infection? Yes: Dysuria/Frequency/Urgency/UTI. Risk Assessment: Do you want to hurt yourself or someone else? Patient reports no desire to harm self or others. Onset of symptoms was May 06, 2023. 15:05 Method Of Arrival: Ambulatory ll1 15:05 Acuity: VENKATESH 3 ll1 Triage Assessment: 15:06 General: Appears uncomfortable, Behavior is cooperative, appropriate for age. Pain: ll1 Complains of pain in pelvis Pain currently is 10 out of 10 on a pain scale. Quality of pain is described as aching, crampy. GI: Reports lower abdominal pain, cramping. : Reports burning with urination, urgency. OPERATIONS MANAGER/COORDINATOR: 16:24 Verified cm10 Historical: - Allergies: 15:06 Amoxicillin; ll1 15:06 Naproxen; ll1 15:06 Stadol; ll1 15:06 Tylenol-Codeine #3; ll1 - PMHx: 15:06 adhd; Anxiety; Asthma; Hypertensive disorder; ll1 - PSHx: 15:06 section; ll1 - Immunization history:: Adult Immunizations up to date. - Social history:: Smoking status: Patient denies any tobacco usage or history of. Screenin:23 [facility] ED Fall Risk Assessment (Adult) History of falling in the last 3 months, cm10 including since admission No falls in past 3 months (0 pts) Confusion or Disorientation No (0 pts) Intoxicated or Sedated No (0 pts) Impaired Gait No (0 pts) Mobility Assist Device Used No (0 pt) Altered Elimination No (0 pt) Score/Fall Risk Level 0 - 2 = Low Risk Oriented to surroundings, Maintained a safe environment, Hourly rounding (assess needs \T\ fall precautionary measures) done. Abuse screen: Denies threats or abuse. Denies injuries from another. Nutritional screening: No deficits noted. Tuberculosis screening: No symptoms or risk factors identified. Vital Signs: 15:05 BP 128 / 81; Pulse 100; Resp 18; Temp 97.7; Pulse Ox 100% ; Weight 81.65 kg; Height 5 ll1 ft. 1 in. ; Pain 10/10; 15:05 Body Mass Index 34.01 (81.65 kg, 154.94 cm) ll1 15:05 Pain Scale: Adult ll1 ED Course: 15:02 Patient arrived in ED. kj1 15:03 Mary Vee FNP-C is [facility]. snw 15:03 Rafal Green MD is Attending Physician. snw 15:06 Triage completed. ll1 15:06 Arm band placed on Patient placed in an exam room, on a stretcher. ll1 16:23 Patient has correct armband on for positive identification. Provided Education on: cm10 Follow up instructions.. 16:23 No provider procedures requiring assistance completed. Patient did not have IV access cm10 during this emergency room visit. Administered Medications: 15:59 Drug: Rocephin (cefTRIAXone) IM 1 grams IM once Route: IM; Site: right vastus lateralis;cm10 16:24 Follow up: Response: No adverse reaction cm10 15:59 Drug: [place] PO 5 mg-325 mg 1 tabs PO once Route: PO; cm10 16:23 Follow up: Response: No adverse reaction cm10 Medication: 16:23 VIS not applicable for this client. cm10 Outcome: 15:34 Discharge ordered by . snw 16:24 Discharged to home ambulatory, with family, cm10 16:24 Condition: good 16:24 Discharge instructions given to patient, Instructed on discharge instructions, follow up and referral plans. medication usage, Demonstrated understanding of instructions, follow-up care, medications, Prescriptions given X 1, 16:24 Patient left the ED. cm10 Signatures: Mary Vee, LOAN AUDITOR-C LOAN AUDITOR-CsnAdriana Geiger kj1 Roberta Coker RN RN ll1 Kaila Lopez RN RN cm10
--- NOTE | 2023-05-08 15:34 | EDPHYS ---
Physician Documentation [facility] Name: Carla Duncan Age: 27 yrs Sex: Female : 1995 Arrival Date: 05/08/2023 Time: 14:59 Bed 12 Private MD: ED Physician Rafal Green HPI: 05/08 15:47 This 27 yrs old Female presents to ER via Ambulatory with complaints of 22 snw WEEKS /POSSIBLE UTI. 15:47 Onset: The symptoms/episode began/occurred yesterday, and became persistent. Associated snw signs and symptoms: Pertinent positives: pelvic, bladder discomfort, cramping, no bleeding. taking macrobid and pyridium. The patient has been recently seen by a physician: an regional sales representative specialist, yesterday. ACCOUNTS CLERK: 16:24 Verified cm10 Historical: - Allergies: 15:06 Amoxicillin; ll1 15:06 Naproxen; ll1 15:06 Stadol; ll1 15:06 Tylenol-Codeine #3; ll1 - PMHx: 15:06 adhd; Anxiety; Asthma; Hypertensive disorder; ll1 - PSHx: 15:06 section; ll1 - Immunization history:: Adult Immunizations up to date. - Social history:: Smoking status: Patient denies any tobacco usage or history of. ROS: 15:46 Constitutional: Negative for fever, chills, and weight loss, Eyes: Negative for injury, snw pain, redness, and discharge, ENT: Negative for injury, pain, and discharge, Neck: Negative for injury, pain, and swelling, Cardiovascular: Negative for chest pain, palpitations, and edema, Respiratory: Negative for shortness of breath, cough, wheezing, and pleuritic chest pain, Abdomen/GI: Negative for abdominal pain, nausea, vomiting, diarrhea, and constipation, Back: Negative for injury and pain, MS/Extremity: Negative for injury and deformity, Skin: Negative for injury, rash, and discoloration, Neuro: Negative for headache, weakness, numbness, tingling, and seizure, Psych: Negative for depression, anxiety, suicide ideation, homicidal ideation, and hallucinations, 15:46 : Positive for pelvic pain, burning with urination, cramping, Exam: 15:41 Constitutional: This is a well developed, well nourished patient who is awake, alert, snw and in no acute distress. Head/Face: Normocephalic, atraumatic. Eyes: Pupils equal round and reactive to light, extra-ocular motions intact. Lids and lashes normal. Conjunctiva and sclera are non-icteric and not injected. Cornea within normal limits. Periorbital areas with no swelling, redness, or edema. ENT: Nares patent. No nasal discharge, no septal abnormalities noted. Tympanic membranes are normal and external auditory canals are clear. Oropharynx with no redness, swelling, or masses, exudates, or evidence of obstruction, uvula midline. Mucous membranes moist. Neck: Trachea midline, no thyromegaly or masses palpated, and no cervical lymphadenopathy. Supple, full range of motion without nuchal rigidity, or vertebral point tenderness. No Meningismus. Chest/axilla: Normal chest wall appearance and motion. Nontender with no deformity. No lesions are appreciated. Cardiovascular: Regular rate and rhythm with a normal S1 and S2. No gallops, murmurs, or rubs. Normal PMI, no JVD. No pulse deficits. Respiratory: Lungs have equal breath sounds bilaterally, clear to auscultation and percussion. No rales, rhonchi or wheezes noted. No increased work of breathing, no retractions or nasal flaring. Back: No spinal tenderness. No costovertebral tenderness. Full range of motion. Skin: Warm, dry with normal turgor. Normal color with no rashes, no lesions, and no evidence of cellulitis. MS/ Extremity: Pulses equal, no cyanosis. Neurovascular intact. Full, normal range of motion. Neuro: Awake and alert, GCS 15, oriented to person, place, time, and situation. Cranial nerves II-XII grossly intact. Motor strength 5/5 in all extremities. Sensory grossly intact. Cerebellar exam normal. Normal gait. Psych: Awake, alert, with orientation to person, place and time. Behavior, mood, and affect are within normal limits. 15:41 Abdomen/GI: Inspection: gravid appearance, is noted, Bowel sounds: normal, Palpation: moderate abdominal tenderness, in the suprapubic area, Vital Signs: 15:05 BP 128 / 81; Pulse 100; Resp 18; Temp 97.7; Pulse Ox 100% ; Weight 81.65 kg; Height 5 ll1 ft. 1 in. ; Pain 10/10; 15:05 Body Mass Index 34.01 (81.65 kg, 154.94 cm) ll1 15:05 Pain Scale: Adult ll1 MDM: 15:08 Patient medically screened. snw 15:42 Differential diagnosis: UTI, vag bleeding, labor, infection. Data reviewed: snw vital signs, nurses notes. I considered the following discharge prescriptions or medication management in the emergency department Medications were administered in the Emergency Department. See MAR. Counseling: I had a detailed discussion with the patient and/or guardian regarding the historical points, exam findings, and any diagnostic results supporting the discharge/admit diagnosis, the presence of at least one elevated blood pressure reading (>120/80) during this emergency department visit, the need for outpatient follow up, for definitive care, to return to the emergency department if symptoms worsen or persist or if there are any questions or concerns that arise at home. ED course: Pt saw regional sales representative yesterday, started macrobid. States low central pelvic/bladder tenderness, no bleeding, no discharge, normal progression per regional sales representative. Administered Medications: 15:59 Drug: Rocephin (cefTRIAXone) IM 1 grams IM once Route: IM; Site: right vastus lateralis;cm10 16:24 Follow up: Response: No adverse reaction cm10 15:59 Drug: [place] PO 5 mg-325 mg 1 tabs PO once Route: PO; cm10 16:23 Follow up: Response: No adverse reaction cm10 Disposition Summary: 05/08/23 15:34 Discharge Ordered Notes: Please continue macrobid per regional sales representative Location: Home snw Condition: Stable snw Diagnosis - 22 weeks gestation of snw - Dysuria snw - UTI/ Urinary tract infection, site not specified snw Followup: snw - With: Emergency Department - When: As needed - Reason: Worsening of condition Followup: snw - With: Private Physician - When: 2 - 3 days - Reason: Recheck today's complaints, Continuance of care, Re-evaluation by your physician Discharge Instructions: - Discharge Summary Sheet snw - Abdominal Pain During snw - Second Trimester of snw - and Urinary Tract Infection snw - Rehydration, Adult snw Forms: - Medication Reconciliation Form snw - Thank You Letter snw - Antibiotic Education snw - Prescription Opioid Use snw - Patient Portal Instructions snw - Leadership Thank You Letter sn Prescriptions: - cefpodoxime 200 mg Oral tablet - take 1 tablet ORAL route every 12 hours for 7 days with food; 14 tablet; snw Refills: 0, Product Selection Permitted Addendum: 05/09/2023 16:46 I was immediately available for consultation during this patient's visit. I did not e c2 personally see the patient or guide the patient's care. . Signatures: Mary Vee FNP-C FNP-[place] Roberta Coker RN RN ll1 Kaila Lopez RN RN cm10 Rafal Green MD MD ec2
[2023-05-08] MEDS ORDERED: CEFTRIAXONE 1000 MG/VIAL ONE (15:58)
[2023-05-08] MEDS ORDERED: HYDROCODONE/APAP 5/325 MG TAB ONE (15:58)
[2023-05-08] MEDS ORDERED: LIDOCAINE 1% MPF 2 ML AMPULE ONE (15:58)
[2023-05-08 16:36] VITALS: BP 128/81; TEMP 97.7; O2SAT 100
== END 2023-05-08 16:24 | disposition home or self-care (01) ==
LOC: ER 14:59
DX: O23.42 Unspecified infection of urinary tract in pregnancy, second trimester (principal); N39.0 Urinary tract infection, site not specified; Z3A.22 22 weeks gestation of pregnancy; Z88.1 Allergy status to other antibiotic agents; Z88.5 Allergy status to narcotic agent; Z88.6 Allergy status to analgesic agent
CPT/HCPCS: 96372; 99284; J0696

== ENCOUNTER → 2023-07-22 | Emergency (ER) | payer OTHER ==
[~2023-07-22] MED LIST: CEFTRIAXONE 1000 MG/VIAL ONE; GUAIFENESIN/DM 5 ML UCUP ONE; LIDOCAINE 1% MPF 2 ML AMPULE ONE; ONDANSETRON 4 MG (ODT) TAB ONE; PROMETHAZINE 25 MG TABLET ONE
--- NOTE | 2023-07-22 05:14 | ER ---
Nurse's Notes [facility] Name: Carla Duncan Age: 27 yrs Sex: Female : 1995 Arrival Date: 07/22/2023 Time: 04:38 Bed IW1 Private MD: Diagnosis: Acute tonsillitis, unspecified;Acute serous otitis media, bilateral;Nausea;Acute bronchitis, unspecified Presentation: 07/22 05:04 Chief complaint: Patient states: "really sick" My throat feels like it is on fire, my vc1 head hurts, my right ear hurts, I'm vomiting when I cough and it has been going on for 2-3 days. Coronavirus screen: Vaccine status: Patient reports being unvaccinated. Client denies travel out of the [place] in the last 14 days. At this time, the client does not indicate any symptoms associated with coronavirus-19. Ebola Screen: Patient negative for fever greater than or equal to 101.5 degrees Fahrenheit, and additional compatible Ebola Virus Disease symptoms Patient denies exposure to infectious person. Patient denies travel to an Ebola-affected area in the 21 days before illness onset. No symptoms or risks identified at this time. Initial Sepsis Screen: Does the patient meet any 2 criteria? No. Patient's initial sepsis screen is negative. Does the patient have a suspected source of infection? No. Patient's initial sepsis screen is negative. Risk Assessment: Do you want to hurt yourself or someone else? Patient reports no desire to harm self or others. Onset of symptoms was July 22, 2023. 05:04 Method Of Arrival: Ambulatory vc1 05:04 Acuity: VENKATESH 4 vc1 FRAUD INVESTIGATOR: 05:12 Verified vc1 Historical: - Allergies: 05:13 Amoxicillin; vc1 05:13 Naproxen; vc1 05:13 Stadol; vc1 05:13 Tylenol-Codeine #3; vc1 05:13 Toradol; vc1 - PMHx: 05:13 adhd; Anxiety; Asthma; Hypertensive disorder; vc1 - PSHx: 05:13 section; vc1 - Immunization history:: Client reports having NOT received the Covid vaccine. Flu vaccine is not up to date. - Social history:: Patient/guardian denies using alcohol, street drugs, IV drugs, caffeine, over the counter diet medications, tobacco products, Smoking status: Patient denies any tobacco usage or history of. - Family history:: not pertinent. Screenin:12 [facility] ED Fall Risk Assessment (Adult) History of falling in the last 3 months, vc1 including since admission No falls in past 3 months (0 pts) Confusion or Disorientation No (0 pts) Intoxicated or Sedated No (0 pts) Impaired Gait No (0 pts) Mobility Assist Device Used No (0 pt) Altered Elimination No (0 pt) Score/Fall Risk Level 0 - 2 = Low Risk Oriented to surroundings, Maintained a safe environment, Educated pt \\T\\ family on fall prevention, incl call for assistance when getting out of bed. Abuse screen: Denies threats or abuse. Nutritional screening: No deficits noted. Tuberculosis screening: No symptoms or risk factors identified. Vital Signs: 05:04 BP 109 / 82; Pulse 94; Resp 18; Temp 97.7; Pulse Ox 100% ; Weight 81.65 kg; Height 5 vc1 ft. 3 in. ; Pain 10/10; 05:04 Body Mass Index 31.89 (81.65 kg, 160.02 cm) vc1 05:04 Pain Scale: Adult vc1 ED Course: 04:46 Patient arrived in ED. gm2 05:06 Brock Mejia MD is Attending Physician. sp4 05:12 Triage completed. vc1 05:12 Arm band placed on right wrist. vc1 05:44 No provider procedures requiring assistance completed. Patient did not have IV access vc1 during this emergency room visit. Administered Medications: 05:25 Drug: Promethazine PO 25 mg PO once Route: PO; vc1 05:25 Drug: Ondansetron PO 4 mg PO once Route: PO; vc1 05:25 Drug: Dextromethorphan-Guaifenesin PO Liquid 10 mg-100 mg/5 mL 10 ml PO once Route: PO; vc1 05:29 Drug: Rocephin (cefTRIAXone) IM 1 grams IM once Route: IM; Site: Ventrogluteal RIGHT; vc1 Medication: 05:14 VIS not applicable for this client. vc1 Outcome: 05:14 Discharge ordered by . sp4 05:45 Discharged to home ambulatory, vc1 05:45 Condition: good 05:45 Discharge instructions given to patient, Instructed on discharge instructions, follow up and referral plans. medication usage, Demonstrated understanding of instructions, follow-up care, medications, Prescriptions given X 4, 05:45 Patient left the ED. vc1 Signatures: Mindy Allen RN RN vc1 Brock Mejia MD MD sp4 Enriqueta Thomas gm2
--- NOTE | 2023-07-22 05:15 | EDPHYS ---
Physician Documentation [facility] Name: Carla Duncan Age: 27 yrs Sex: Female : 1995 Arrival Date: 07/22/2023 Time: 04:38 Bed IW1 Private MD: ED Physician Brock Mejia HPI: 07/22 05:06 This 27 yrs old Female presents to ER via Unassigned with complaints of Ear sp4 Pain, Cough, Congestion, Nausea/Vomiting. 05:06 27-year-old female G5, P4004 at 32 weeks 2 days, presents with 2 days of bilateral ear sp4 pain, cough congestion nausea vomit, also sore throat . 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 Flu vaccine is not up to date. - Social history:: Patient/guardian denies using alcohol, street drugs, IV drugs, caffeine, over the counter diet medications, tobacco products, Smoking status: Patient denies any tobacco usage or history of. - Family history:: not pertinent. ROS: 05:10 Constitutional: Negative for fever, chills, and weight loss, positive earache, positive sp4 cough, positive congestion, positive sore throat, positive nausea and vomiting 05:10 All other systems are negative, Exam: 05:10 Constitutional: This is a well developed, well nourished patient who is awake, alert, sp4 and in no acute distress. Head/Face: Normocephalic, atraumatic. Eyes: Pupils equal round and reactive to light, extra-ocular motions intact. Lids and lashes normal. Conjunctiva and sclera are not injected. Cornea within normal limits. Periorbital areas with no swelling, redness, or edema. ENT: Nares patent. No nasal discharge, no septal abnormalities noted. Tympanic membranes exam reveals bilateral TM opacification. And external auditory canals are clear. Oropharynx with bilateral redness and streaky exudates of tonsils and pharynx. Neck: Trachea midline, no thyromegaly or masses palpated, and no cervical lymphadenopathy. Supple, full range of motion without nuchal rigidity, or vertebral point tenderness. Chest/axilla: Normal chest wall appearance and motion. Nontender with no deformity. No lesions are appreciated. Cardiovascular: Regular rate and rhythm with a normal S1 and S2. No gallops, murmurs, or rubs. Normal PMI, no JVD. No pulse deficits. Respiratory: Lungs have equal breath sounds bilaterally, clear to auscultation and percussion. No rales, rhonchi or wheezes noted. No increased work of breathing, no retractions or nasal flaring. Abdomen/GI: Soft, non-tender, with normal bowel sounds. No distension or tympany. No guarding or rebound. No evidence of tenderness throughout. Back: No spinal tenderness. No costovertebral tenderness. Skin: Warm, dry with normal turgor. Normal color with no rashes, no lesions, and no evidence of cellulitis. MS/ Extremity: Pulses equal, no cyanosis. Neurovascular intact. Full, normal range of motion. Neuro: Awake and alert, GCS 15, oriented to person, place, time, and situation. Cranial nerves II-XII grossly intact. Motor strength 5/5 in all extremities. Sensory grossly intact. Psych: Awake, alert, with orientation to person, place and time. Behavior, mood, and affect are within normal limits Vital Signs: 05:04 BP 109 / 82; Pulse 94; Resp 18; Temp 97.7; Pulse Ox 100% ; Weight 81.65 kg; Height 5 vc1 ft. 3 in. ; Pain 10/10; 05:04 Body Mass Index 31.89 (81.65 kg, 160.02 cm) vc1 05:04 Pain Scale: Adult vc1 MDM: 05:12 Differential diagnosis: otitis media, otitis externa, acute otalgia, serotympanum. Data sp4 reviewed: vital signs, nurses notes, old medical records. ED course: Patient will prescribe cephalexin twice a day for 10 days also dextromethorphan guaifenesin combination. Will advise to continue Tylenol every 4 hours. 05:14 Patient medically screened. sp4 Administered Medications: 05:25 Drug: Promethazine PO 25 mg PO once Route: PO; vc1 05:25 Drug: Ondansetron PO 4 mg PO once Route: PO; vc1 05:25 Drug: Dextromethorphan-Guaifenesin PO Liquid 10 mg-100 mg/5 mL 10 ml PO once Route: PO; vc1 05:29 Drug: Rocephin (cefTRIAXone) IM 1 grams IM once Route: IM; Site: Ventrogluteal RIGHT; vc1 Disposition Summary: 07/22/23 05:14 Discharge Ordered Notes: Location: Home sp4 Problem: new sp4 Symptoms: have improved sp4 Condition: Stable sp4 Diagnosis - Acute tonsillitis, unspecified sp4 - Acute serous otitis media, bilateral sp4 - Nausea sp4 - Acute bronchitis, unspecified sp4 Followup: sp4 - With: Private Physician - When: 7 - 10 days - Reason: Recheck today's complaints Discharge Instructions: - Discharge Summary Sheet sp4 - Acute Bronchitis, Adult sp4 Forms: - Patient Portal Instructions sp4 Prescriptions: - dextromethorphan-guaifenesin 30-600 mg Oral Tablet, Extended Release 12 hr - take 1 tablet ORAL route every 12 hours PRN cough; 42 tablet; Refills: 0, sp4 Product Selection Permitted - Cephalexin 500 mg Oral Capsule - take 1 capsule ORAL route every 12 hours for 10 days; 20 capsule; Refills: 0, sp4 Product Selection Permitted - Pepcid 20 mg Oral tablet - take 2 tablet ORAL route once daily; 60 tablet; Refills: 0, Product Selection sp4 Permitted - promethazine 25 mg Oral tablet - take 1 tablet ORAL route every 6 hours As needed PRN nausea; 30 tablet; sp4 Refills: 0, Product Selection Permitted Signatures: Mindy Allen, RN RN vc1 Brock Mejia MD MD sp4
[2023-07-22 08:21] VITALS: BP 109/82; TEMP 97.7; O2SAT 100
== END ==
LOC: ER 04:38
DX: O26.893 Other specified pregnancy related conditions, third trimester (principal); H65.03 Acute serous otitis media, bilateral; J03.90 Acute tonsillitis, unspecified; J20.9 Acute bronchitis, unspecified; R11.0 Nausea; I10 Essential (primary) hypertension; F41.9 Anxiety disorder, unspecified; J45.909 Unspecified asthma, uncomplicated; F90.9 Attention-deficit hyperactivity disorder, unspecified type; Z3A.32 32 weeks gestation of pregnancy
CPT/HCPCS: 96372; 99284; Q0169; Q0162; J0696

== ENCOUNTER → 2023-08-13 | Emergency (ER) | payer OTHER ==
[~2023-08-13] MED LIST changes: -CEFTRIAXONE 1000 MG/VIAL ONE; +DIPHENHYDRAMINE 50 MG/ML VIAL ONE; +FAMOTIDINE 20 MG/2 ML VIAL IV ONE; -GUAIFENESIN/DM 5 ML UCUP ONE; -LIDOCAINE 1% MPF 2 ML AMPULE ONE; +METHYLPREDNISOLONE 125 MG INJ ONE; +NA CHLORIDE 0.9% 1,000 ML ONE; -ONDANSETRON 4 MG (ODT) TAB ONE; -PROMETHAZINE 25 MG TABLET ONE; +predniSONE 20 MG TAB ONE
[2023-08-13 10:49] LABS: Absolute Lymphocytes (CBC) 2.6 K/uL (0.7-4.9); Hematocrit 34.9 % (36.0-45.0); Lymphocytes % 31.7 % (15.3-44.8); MCV 83.2 fL (80-100); Platelets 352 thou/uL (152-406); RBC Red Blood Cell Count 4.19 M/uL (3.86-4.86)
[2023-08-13 11:21] LABS: ALT/SGPT 12 U/L (13-56); Albumin 2.1 g/dL (3.4-5.0); Alkaline Phosphatase 172 U/L (45-117); BUN Blood Urea Nitrogen 8 mg/dL (7-18); Bicarbonate 23 mEq/L (21-32); Bilirubin Total 0.3 mg/dL (0.2-1.0); Glomerular Filtration Rate 126 ml/min (=/>90); Glucose Level 88 mg/dL (74-106); Lipase 26 U/L (13-75); Potassium 3.7 mEq/L (3.5-5.1); Protein, Total 6.4 g/dL (6.4-8.2); Sodium Level 137 mEq/L (136-145)
[2023-08-13 11:28] LABS: AST/SGOT < 4 U/L (15-37); Troponin High Sensitivity < 3.0 pg/mL (<58.9)
--- NOTE | 2023-08-13 12:39 | RAD REPORT ---
EXAM DESCRIPTION: Brandy Single View08/13/2023 10:24 am CLINICAL HISTORY: Chest pain COMPARISON: 2022 FINDINGS: The lungs appear clear of acute infiltrate. The heart is normal size IMPRESSION: No acute abnormalities displayed
--- NOTE | 2023-08-13 12:41 | RAD REPORT ---
EXAM DESCRIPTION: USExtrem Venous W Compress Bil08/13/2023 10:57 am CLINICAL HISTORY: Leg pain COMPARISON: none FINDINGS: The common femoral, superficial femoral, greater saphenous, popliteal and posterior tibial veins bilaterally are compressible and demonstrate augmentation. Doppler demonstrates good flow. Grayscale, color and spectral analysis performed on all vessels IMPRESSION: No evidence of deep venous thrombosis involving either lower extremity.
--- NOTE | 2023-08-13 14:34 | ER ---
Nurse's Notes [facility] Name: Carla Duncan Age: 27 yrs Sex: Female : 1995 Arrival Date: 08/13/2023 Time: 09:45 Bed 1 Private MD: Diagnosis: Chest pain on breathing;36 weeks gestation of Presentation: 08/13 09:57 Chief complaint: Patient states: chest pressure since Wednesday, pt states "I called my aa5 OB and he said to come to the ER because there is nothing he can do in the office". Reports being 36 weeks , denies abd pain or vaginal bleeding. 09:57 Coronavirus screen: At this time, the client does not indicate any symptoms associated aa5 with coronavirus-19. Ebola Screen: Patient denies travel to an Ebola-affected area in the 21 days before illness onset. Initial Sepsis Screen: Does the patient meet any 2 criteria? No. Patient's initial sepsis screen is negative. Does the patient have a suspected source of infection? No. Patient's initial sepsis screen is negative. Risk Assessment: Do you want to hurt yourself or someone else? Patient reports no desire to harm self or others. Onset of symptoms was August 11, 2023. 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 - Social history:: Smoking status: Patient denies any tobacco usage or history of. Screenin:52 [facility] ED Fall Risk Assessment (Adult) History of falling in the last 3 months, kc6 including since admission No falls in past 3 months (0 pts) Confusion or Disorientation No (0 pts) Intoxicated or Sedated No (0 pts) Impaired Gait No (0 pts) Mobility Assist Device Used No (0 pt) Altered Elimination No (0 pt) Score/Fall Risk Level 0 - 2 = Low Risk. Abuse screen: Denies threats or abuse. Denies injuries from another. Nutritional screening: No deficits noted. Tuberculosis screening: No symptoms or risk factors identified. Assessment: 10:53 General: Appears in no apparent distress. comfortable, well groomed, well developed, kc6 Behavior is calm, cooperative, appropriate for age. Pain: Complains of pain in chest Pain does not radiate. Pain began 2-3 days ago. Neuro: Level of Consciousness is awake, alert, obeys commands, Oriented to person, place, time, situation, Appropriate for age. Cardiovascular: Reports chest pain, Heart tones S1 S2 present Capillary refill < 3 seconds Rhythm is sinus rhythm. Respiratory: Airway is patent Trachea midline Respiratory effort is even, unlabored, Respiratory pattern is regular, symmetrical. GI: No signs and/or symptoms were reported involving the gastrointestinal system. Abdomen is round. : No signs and/or symptoms were reported regarding the genitourinary system. EENT: No signs and/or symptoms were reported regarding the EENT system. Derm: No signs and/or symptoms reported regarding the dermatologic system. Skin is intact, is healthy with good turgor, Skin is pink, warm \\T\\ dry. Musculoskeletal: No signs and/or symptoms reported regarding the musculoskeletal system. Circulation, motion, and sensation intact. Capillary refill < 3 seconds, Range of motion: intact in all extremities. 11:20 Reassessment: Patient appears in no apparent distress at this time. Patient and/or hb family updated on plan of care and expected duration. Pain level reassessed. Patient is alert, oriented x 3, equal unlabored respirations, skin warm/dry/pink. 12:20 Reassessment: Patient appears in no apparent distress at this time. No changes from kc6 previously documented assessment. Patient and/or family updated on plan of care and expected duration. Pain level reassessed. Patient is alert, oriented x 3, equal unlabored respirations, skin warm/dry/pink. 13:20 Reassessment: Patient appears in no apparent distress at this time. No changes from kc6 previously documented assessment. Patient and/or family updated on plan of care and expected duration. Pain level reassessed. Patient is alert, oriented x 3, equal unlabored respirations, skin warm/dry/pink. 15:09 Reassessment: Patient appears in no apparent distress at this time. No changes from kc6 previously documented assessment. Patient and/or family updated on plan of care and expected duration. Pain level reassessed. Patient is alert, oriented x 3, equal unlabored respirations, skin warm/dry/pink. Vital Signs: 09:57 BP 117 / 98; Pulse 87; Resp 16 S; Temp 98(TE); Pulse Ox 97% on R/A; Weight 85.28 kg aa5 (R); Height 5 ft. 1 in. (R); 11:26 BP 116 / 79; Pulse 68; Resp 16; Pulse Ox 98% on R/A; hb 13:37 BP 124 / 78; Pulse 67; Resp 16; Pulse Ox 98% on R/A; hb 15:09 BP 123 / 65; Pulse 65; Resp 16 S; Pulse Ox 99% on R/A; kc6 09:57 Body Mass Index 35.52 (85.28 kg, 154.94 cm) aa5 Vitals: 10:39 Heart Tones 160bpm. kc6 ED Course: 09:47 Patient arrived in ED. im 09:52 Michael Yuan MD is Attending Physician. atif 09:57 Arm band placed on. aa5 10:10 Triage completed. aa5 10:26 Chest Single View XRAY In Process Unspecified. EDMS 10:36 Initial lab(s) drawn, by me, sent to lab. EKG done, by ED staff. Inserted saline lock: aw1 20 gauge in left antecubital area, using aseptic technique. 10:52 Misti Oliveira, RN is Primary Nurse. kc6 10:52 Patient has correct armband on for positive identification. Bed in low position. Call kc6 light in reach. Side rails up X2. Client placed on continuous cardiac and pulse oximetry monitoring. NIBP monitoring applied. ux design lead on. 10:52 Patient maintains SpO2 saturation greater than 95% on room air. kc6 10:58 US Extremity Venous W Compression Santos In Process Unspecified. EDMS 14:04 CT Chest For PE Angio In Process Unspecified. EDMS 14:33 Anthony Ferrell MD is Referral Physician. atif 15:09 No provider procedures requiring assistance completed. IV discontinued, intact, kc6 bleeding controlled, No redness/swelling at site. Pressure dressing applied. Administered Medications: 10:39 Drug: NS 0.9% IV 1000 ml IV at 1 bolus Per protocol; 1000 mL bolus Route: IV; Rate: 1 kc6 bolus; Site: left antecubital; 13:58 Drug: MethylPrednisoLONE IVP 125 mg IVP once Route: IVP; Site: left antecubital; hb 13:58 Drug: diphenhydrAMINE IVP 50 mg IVP once Route: IVP; Site: left antecubital; hb 13:58 Drug: Famotidine IVP 40 mg IVP once; dilute with 10 mL 0.9% NaCl; give over 2 minutes hb Route: IVP; Site: left antecubital; 13:58 Drug: predniSONE PO 40 mg PO once Route: PO; hb Medication: 15:10 VIS not applicable for this client. kc6 Outcome: 14:33 Discharge ordered by . atif 15:10 Discharged to home ambulatory, kc6 15:10 Condition: good 15:10 Discharge instructions given to patient, Instructed on discharge instructions, follow up and referral plans. Demonstrated understanding of instructions, follow-up care, 15:10 Patient left the ED. kc6 Signatures: Dispatcher [employer] EDWV Michael Yuan MD MD cha Calderon, Audri RN RN aa5 Maria Alejandra Hutton RN RN hb Campbell, Kaitlyn, RN RN kc6 Kymberly Alvarez Alyssa aw1
--- NOTE | 2023-08-13 14:34 | EDPHYS ---
Physician Documentation [facility] Name: Carla Duncan Age: 27 yrs Sex: Female : 1995 Arrival Date: 08/13/2023 Time: 09:45 Bed 1 Private MD: ED Physician Michael Yuan HPI: 08/13 14:29 This 27 yrs old Female presents to ER via Ambulatory with complaints of Chest atif Pain, 36 weeks , Chest Pressure. 14:29 The patient or guardian reports chest pain that is located primarily in the anterior atif chest wall, bilaterally. The pain does not radiate. Associated signs and symptoms: Pertinent positives: shortness of breath. The chest pain is described as sharp. Modifying factors: The symptoms are alleviated by nothing. the symptoms are aggravated by cough, deep breath. Severity of pain: At its worst the pain was mild in the emergency department the pain is unchanged. The patient has experienced similar episodes in the past, a few times. RN GYN: 10:08 5, Full Term 2, Premature 0, 2, Living 2, LMP 11/2022, unknownaa5 Historical: - Allergies: 10:54 Stadol; kc6 - Immunization history:: Adult Immunizations unknown. - Social history:: Smoking status: Patient denies any tobacco usage or history of. ROS: 14:30 Constitutional: Negative for fever, chills, and weight loss, Eyes: Negative for injury, atif pain, redness, and discharge, ENT: Negative for injury, pain, and discharge, Neck: Negative for injury, pain, and swelling, Respiratory: Negative for shortness of breath, cough, wheezing, and pleuritic chest pain, Abdomen/GI: Negative for abdominal pain, nausea, vomiting, diarrhea, and constipation, Back: Negative for injury and pain, : Negative for injury, bleeding, discharge, and swelling, MS/Extremity: Negative for injury and deformity, Skin: Negative for injury, rash, and discoloration, Neuro: Negative for headache, weakness, numbness, tingling, and seizure, Psych: Negative for depression, anxiety, suicide ideation, homicidal ideation, and hallucinations, Allergy/Immunology: Negative for hives, rash, and allergies, Endocrine: Negative for neck swelling, polydipsia, polyuria, polyphagia, and marked weight changes, Hematologic/Lymphatic: Negative for swollen nodes, abnormal bleeding, and unusual bruising, 14:30 Cardiovascular: Positive for chest pain, with cough, Exam: 14:30 Constitutional: This is a well developed, well nourished patient who is awake, alert, atif and in no acute distress. Head/Face: Normocephalic, atraumatic. Eyes: Pupils equal round and reactive to light, extra-ocular motions intact. Lids and lashes normal. Conjunctiva and sclera are non-icteric and not injected. Cornea within normal limits. Periorbital areas with no swelling, redness, or edema. ENT: Nares patent. No nasal discharge, no septal abnormalities noted. Tympanic membranes are normal and external auditory canals are clear. Oropharynx with no redness, swelling, or masses, exudates, or evidence of obstruction, uvula midline. Mucous membranes moist. Neck: Trachea midline, no thyromegaly or masses palpated, and no cervical lymphadenopathy. Supple, full range of motion without nuchal rigidity, or vertebral point tenderness. No Meningismus. Chest/axilla: Normal chest wall appearance and motion. Nontender with no deformity. No lesions are appreciated. Cardiovascular: Regular rate and rhythm with a normal S1 and S2. No gallops, murmurs, or rubs. Normal PMI, no JVD. No pulse deficits. Respiratory: Lungs have equal breath sounds bilaterally, clear to auscultation and percussion. No rales, rhonchi or wheezes noted. No increased work of breathing, no retractions or nasal flaring. Abdomen/GI: Soft, non-tender, with normal bowel sounds. No distension or tympany. No guarding or rebound. No evidence of tenderness throughout. Back: No spinal tenderness. No costovertebral tenderness. Full range of motion. Skin: Warm, dry with normal turgor. Normal color with no rashes, no lesions, and no evidence of cellulitis. MS/ Extremity: Pulses equal, no cyanosis. Neurovascular intact. Full, normal range of motion. Neuro: Awake and alert, GCS 15, oriented to person, place, time, and situation. Cranial nerves II-XII grossly intact. Motor strength 5/5 in all extremities. Sensory grossly intact. Cerebellar exam normal. Normal gait. Psych: Awake, alert, with orientation to person, place and time. Behavior, mood, and affect are within normal limits. 14:30 ECG was reviewed by the Attending Physician. Vital Signs: 09:57 BP 117 / 98; Pulse 87; Resp 16 S; Temp 98(TE); Pulse Ox 97% on R/A; Weight 85.28 kg aa5 (R); Height 5 ft. 1 in. (R); 11:26 BP 116 / 79; Pulse 68; Resp 16; Pulse Ox 98% on R/A; hb 13:37 BP 124 / 78; Pulse 67; Resp 16; Pulse Ox 98% on R/A; hb 15:09 BP 123 / 65; Pulse 65; Resp 16 S; Pulse Ox 99% on R/A; kc6 09:57 Body Mass Index 35.52 (85.28 kg, 154.94 cm) aa5 MDM: 09:52 Patient medically screened. [facility] 08/13 09:53 Order name: CBC with Diff; Complete Time: 11:34 [facility] 08/13 09:53 Order name: Comprehensive Metabolic Panel; Complete Time: 11:34 [facility] 08/13 09:53 Order name: Troponin High Sensitivity; Complete Time: 11:34 [facility] 08/13 09:53 Order name: D-Dimer; Complete Time: 12:53 [facility] 08/13 09:53 Order name: Lipase; Complete Time: 11:34 [facility] 08/13 11:34 Order name: BNP; Complete Time: 12:53 [facility] 08/13 09:53 Order name: Chest Single View XRAY; Complete Time: 12:53 [facility] 08/13 10:23 Order name: US Extremity Venous W Compression Santos; Complete Time: 12:53 atif 08/13 12:53 Order name: CT Chest For PE Angio atif 08/13 09:53 Order name: EKG; Complete Time: 09:54 [facility] 08/13 09:53 Order name: EKG - Nurse/Tech; Complete Time: 10:28 [facility] 08/13 09:53 Order name: FHT's; Complete Time: 10:39 [facility] EC:30 Rate is 86 beats/min. Rhythm is regular. QRS [facility] is Normal. [place] interval is normal. QRS atif interval is normal. QT interval is normal. No Q waves. T waves are Normal. No ST changes noted. Clinical impression: NSR w/ Non-specific ST/T Changes and No evidence of ischemia. Interpreted by me. Reviewed by me. Administered Medications: 10:39 Drug: NS 0.9% IV 1000 ml IV at 1 bolus Per protocol; 1000 mL bolus Route: IV; Rate: 1 kc6 bolus; Site: left antecubital; 13:58 Drug: MethylPrednisoLONE IVP 125 mg IVP once Route: IVP; Site: left antecubital; hb 13:58 Drug: diphenhydrAMINE IVP 50 mg IVP once Route: IVP; Site: left antecubital; hb 13:58 Drug: Famotidine IVP 40 mg IVP once; dilute with 10 mL 0.9% NaCl; give over 2 minutes hb Route: IVP; Site: left antecubital; 13:58 Drug: predniSONE PO 40 mg PO once Route: PO; hb Disposition Summary: 08/13/23 14:33 Discharge Ordered Notes: Location: Home atif Problem: new atif Symptoms: have improved atif Condition: Stable atif Diagnosis - Chest pain on breathing atif - 36 weeks gestation of atif Followup: atif - With: Private Physician - When: 2 - 3 days - Reason: Recheck today's complaints, Continuance of care, Re-evaluation by your physician Followup: atif - With: Anthony Ferrell MD - When: 2 - 3 days - Reason: Recheck today's complaints, Re-evaluation by your physician Discharge Instructions: - Nonspecific Chest Pain, Adult atif - Nonspecific Chest Pain, Adult, [id number] atif - Hypertension During , Zqko-bo-[id number] atif - Pleurisy, [id number] atif - Hypertension During atif - Discharge Summary Sheet Forms: - Medication Reconciliation Form [facility] - Thank You Letter atif - Antibiotic Education atif - Prescription Opioid Use atif - Patient Portal Instructions atif - Leadership Thank You Letter atif - SBAR form Signatures: Dispatcher [employer] Michael Rodrigez MD MD cha Calderon, Audri RN RN aa5 Maria Alejandra Hutton RN RN Misti Horn RN RN kc6
--- NOTE | 2023-08-13 14:39 | RAD REPORT ---
EXAM DESCRIPTION: CT - Chest For Pe Angio - 08/13/2023 2:02 pm CLINICAL HISTORY: CHEST PAIN COMPARISON: Chest For Pe Angio dated 05/21/2019 TECHNIQUE: Thin axial CT images of the chest were obtained following administration of 100 mL Isovue 370 IV contrast. Multiplanar reconstructions, and maximum intensity projection reconstructions were generated and reviewed. Exam utilizes a protocol for optimal evaluation of pulmonary arterial tree. All CT scans are performed using dose optimization technique as appropriate and may include automated exposure control or mA/KV adjustment according to patient size. FINDINGS: Pulmonary arteries are normal. No emboli or other suspicious finding. No acute or signific ant aorta findings. No mass or infiltrate in the lung parenchyma. No pleural thickening or pleural effusion. No pneumotho rax. Subcarinal calcified small lymph nodes, suggesting sequelae of prior granulomatous infection. No othe r abnormal mediastinal or hilar masses or lymphadenopathy seen. No chest wall mass or abnormal axilli benito lymphadenopathy. IMPRESSION: No evidence of acute central pulmonary emboli. No other acute findings in the chest.
[2023-08-13 15:24] VITALS: BP 123/65; TEMP 98; O2SAT 99
--- NOTE | 2023-08-16 11:04 | EKG ---
Test Date: 2023-08-13 Test Time: 10:24:11 [facility] Technician: JOAQUIN MEASUREMENT RESULTS: Intervals: Rate: 86 RI: 156 QRSD: 74 QT: 356 QTc: 426 [place]: P: 37 RI: 156 QRS: 42 T: 31 INTERPRETIVE STATEMENTS: Normal sinus rhythm Cannot rule out Anterior infarct, age undetermined Abnormal ECG Compared to ECG 08/13/2023 10:23:47 No significant changes Electronically Signed On 08-16-23 10:59:37 LUMBER MARKER by Ernesto Munoz
--- NOTE | 2023-08-16 11:05 | EKG ---
Test Date: 2023-08-13 Test Time: 10:23:47 Tool Grinding Machine Operator: JOAQUIN MEASUREMENT RESULTS: Intervals: Rate: 83 [place]: 148 QRSD: 74 QT: 362 QTc: 425 [place]: P: 73 [place]: 148 QRS: 49 T: 36 INTERPRETIVE STATEMENTS: Normal sinus rhythm Cannot rule out Anterior infarct, age undetermined Abnormal ECG Compared to ECG 04/10/2022 02:44:18 Myocardial infarct finding now present Sinus tachycardia no longer present Electronically Signed On 08-16-23 10:59:39 TRIM SETTER by Ernesto Munoz
== END ==
LOC: ER 09:45
DX: O26.893 Other specified pregnancy related conditions, third trimester (principal); R07.1 Chest pain on breathing; Z3A.36 36 weeks gestation of pregnancy; Z88.5 Allergy status to narcotic agent
CPT/HCPCS: 93005 ×2; 85025; 36415; 85379; 84484; 83690; 80053; 83880; 71275; 71045; 93970; 96375; 96374; 99285; Q9967; J7512; J1200; J2930; J7030

== ENCOUNTER 2023-10-11 22:07 | Emergency (ER) | payer OTHER ==
[2023-10-11] MEDS ORDERED: ALBUTEROL 2.5 MG/3 ML NEB SOL ONE (22:50)
[2023-10-11] MEDS ORDERED: ACETAMINOPHEN 500 MG TAB ONE (22:58)
--- NOTE | 2023-10-11 23:30 | ER ---
Nurse's Notes [facility] Name: Carla Duncan Age: 28 yrs Sex: Female : 1995 Arrival Date: 10/11/2023 Time: 22:07 Bed 12 Private MD: Diagnosis: Cough Presentation: 10/10 22:36 Chief complaint: Patient states: cough,onset 09/11 with SOB and low grade fever with pf1 intermittent blood tinged sputum,onset 2 days. 22:36 Coronavirus screen: Vaccine status: Patient reports being unvaccinated. Client denies pf1 travel out of the [place] in the last 14 days. Client presents with at least one sign or symptom that may indicate coronavirus-19. Standard/surgical mask placed on the client. Ebola Screen: Patient negative for fever greater than or equal to 101.5 degrees Fahrenheit, and additional compatible Ebola Virus Disease symptoms. Initial Sepsis Screen: Does the patient meet any 2 criteria? No. Patient's initial sepsis screen is negative. Does the patient have a suspected source of infection? No. Patient's initial sepsis screen is negative. Risk Assessment: Do you want to hurt yourself or someone else? Patient reports no desire to harm self or others. 22:36 Method Of Arrival: Ambulatory pf1 22:36 Acuity: VENKATESH 4 pf1 22:36 Onset of symptoms was September 12, 2023. pf1 Triage Assessment: 22:36 General: Appears in no apparent distress. comfortable, well groomed, well developed, pf1 Behavior is calm, cooperative, appropriate for age, quiet. 22:36 Pain: Denies pain. EENT: No deficits noted. No signs and/or symptoms were reported pf1 regarding the EENT system. Neuro: No deficits noted. Level of Consciousness is awake, alert, obeys commands, Oriented to person, place, time, situation. Cardiovascular: No deficits noted. Capillary refill < 3 seconds Patient's skin is warm and dry. Respiratory: No deficits noted. Reports shortness of breath cough that is Airway is patent Respiratory effort is even, unlabored, Respiratory pattern is regular, symmetrical, Onset: The symptoms/episode began/occurred 2 days for shortness of breath, cough since 09/12/23, the patient has mild shortness of breath. Respiratory: Reports intermittent blood tinged sputum when coughing. GI: No deficits noted. No signs and/or symptoms were reported involving the gastrointestinal system. : No deficits noted. No signs and/or symptoms were reported regarding the genitourinary system. Derm: No deficits noted. No signs and/or symptoms reported regarding the dermatologic system. Musculoskeletal: No deficits noted. No signs and/or symptoms reported regarding the musculoskeletal system. STILL OPERATOR: 23:38 Not , unknown pf1 Historical: - Allergies: 23:05 Stadol; pf1 23:05 Toradol; pf1 23:05 Amoxicillin; pf1 - PMHx: 23:05 Asthma; Anxiety; pf1 - PSHx: 23:05 section; pf1 - Immunization history:: Adult Immunizations up to date, Client reports having NOT received the Covid vaccine. Last tetanus immunization: < 5 years ago Flu vaccine is not up to date. - Infectious Disease History:: Denies. - Social history:: Smoking status: Patient denies any tobacco usage or history of. Patient uses alcohol, occasionally. Patient/guardian denies using street drugs. Screenin:09 [facility] ED Fall Risk Assessment (Adult) History of falling in the last 3 months, pf1 including since admission No falls in past 3 months (0 pts) Confusion or Disorientation No (0 pts) Intoxicated or Sedated No (0 pts) Impaired Gait No (0 pts) Mobility Assist Device Used No (0 pt) Altered Elimination No (0 pt) Score/Fall Risk Level 0 - 2 = Low Risk Oriented to surroundings, Maintained a safe environment, Educated pt \T\ family on fall prevention, incl call for assistance when getting out of bed, Assessed \T\ reinforced patient's understanding of fall precautions, Provided non-skid footwear, Hourly rounding (assess needs \T\ fall precautionary measures) done, Used ambulatory aids as needed (educated on \T\ assisted with), Used gait belt as appropriate. Abuse screen: Denies threats or abuse. Nutritional screening: No deficits noted. Tuberculosis screening: No symptoms or risk factors identified. Assessment: 23:09 Reassessment: Patient appears in no apparent distress at this time. Patient and/or pf1 family updated on plan of care and expected duration. Pain level reassessed. Patient is alert, oriented x 3, equal unlabored respirations, skin warm/dry/pink. Vital Signs: 22:36 BP 125 / 85; Pulse 89; Resp 16; Temp 98.6; Pulse Ox 100% on R/A; Weight 81.65 kg; pf1 Height 5 ft. 0 in. ; Pain 4/10; 23:36 BP 119 / 79; Pulse 90; Resp 16; Temp 98.3; Pulse Ox 100% on R/A; Pain 3/10; pf1 22:36 Body Mass Index 35.15 (81.65 kg, 152.4 cm) pf1 22:36 Pain Scale: Adult pf1 23:36 Pain Scale: Adult pf1 ED Course: 22:10 Patient arrived in ED. ra3 22:12 Franc[facility] Maynard [facility]C [facility]. kb 22:12 Brock Mejia MD is Attending Physician. kb 22:40 Patient has correct armband on for positive identification. Placed in gown. Bed in low pf1 position. Call light in reach. Side rails up X 1. 22:40 Arm band placed on right wrist. pf1 22:49 Chest Single View XRAY In Process Unspecified. EDMS 23:04 Triage completed. pf1 23:10 No provider procedures requiring assistance completed. Patient did not have IV access pf1 during this emergency room visit. 23:37 Provided Education on: presciption. pf1 Administered Medications: 22:55 Drug: Albuterol Inhalation 2.5 mg Inhalation once Route: Inhalation; pf1 23:36 Follow up: Response: No adverse reaction; Marked relief of symptoms pf1 22:59 Drug: Acetaminophen PO 1000 mg PO once Route: PO; pf1 23:36 Follow up: Response: No adverse reaction; Marked relief of symptoms pf1 Medication: 23:38 VIS not applicable for this client. pf1 Outcome: 23:29 Discharge ordered by . kb 23:37 Discharged to home ambulatory, pf1 23:37 Condition: improved 23:37 Discharge instructions given to patient, Instructed on discharge instructions, follow up and referral plans. Demonstrated understanding of instructions, follow-up care, medications, Prescriptions given X 1, 23:38 Patient left the ED. pf1 Signatures: Dispatcher [employer] EDMS Francie Maynard FNP-C FNP-Ckb Finley, Pamala RN RN pf1 Kendra Carr ra3
--- NOTE | 2023-10-11 23:30 | EDPHYS ---
Physician Documentation [facility] Name: Carla Duncan Age: 28 yrs Sex: Female : 1995 Arrival Date: 10/11/2023 Time: 22:07 Bed 12 Private MD: ED Physician Brock Mejia HPI: 10/11 01:16 This 28 yrs old Female presents to ER via Ambulatory with complaints of kb Breathing Difficulty - asthma, Painful Cough. 01:16 Pt is a 28 year old female who presents for cough that started a little over 2 weeks kb ago. STates she is out of her inhaler. Denies fever, congestion. STates she has been seen by PCP, but she didn't give her any medications. Pt is currently . . 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 Last tetanus immunization: < 5 years ago Flu vaccine is not up to date. - Infectious Disease History:: Denies. - Social history:: Smoking status: Patient denies any tobacco usage or history of. Patient uses alcohol, occasionally. Patient/guardian denies using street drugs. ROS: 10/11 01:17 Constitutional: As per HPI kb Exam: 01:17 Constitutional: This is a well developed, well nourished patient who is awake, alert, kb and in no acute distress. Head/Face: Normocephalic, atraumatic. ENT: Moist Mucous membranes Cardiovascular: Regular rate Respiratory: Respirations even and unlabored. No increased work of breathing. Talking in full sentences Skin: Warm, dry with normal turgor. Normal color. MS/ Extremity: Pulses equal, no cyanosis. Neurovascular intact. Full, normal range of motion. Neuro: Awake and alert, GCS 15, oriented to person, place, time, and situation. Moves all extremities. Normal gait. Vital Signs: 10/10 22:36 BP 125 / 85; Pulse 89; Resp 16; Temp 98.6; Pulse Ox 100% on R/A; Weight 81.65 kg; pf1 Height 5 ft. 0 in. ; Pain 4/10; 23:36 BP 119 / 79; Pulse 90; Resp 16; Temp 98.3; Pulse Ox 100% on R/A; Pain 3/10; pf1 22:36 Body Mass Index 35.15 (81.65 kg, 152.4 cm) pf1 22:36 Pain Scale: Adult pf1 23:36 Pain Scale: Adult pf1 MDM: 22:12 Patient medically screened. kb 10/11 01:17 Differential diagnosis: asthma, Bronchitis. Data reviewed: vital signs, nurses notes. kb Counseling: I had a detailed discussion with the patient and/or guardian regarding the historical points, exam findings, and any diagnostic results supporting the discharge/admit diagnosis, radiology results, the need for outpatient follow up, a family practitioner, to return to the emergency department if symptoms worsen or persist or if there are any questions or concerns that arise at home. 10/10 22:36 Order name: Chest Single View XRAY kb Administered Medications: 10/10 22:55 Drug: Albuterol Inhalation 2.5 mg Inhalation once Route: Inhalation; pf1 23:36 Follow up: Response: No adverse reaction; Marked relief of symptoms pf1 22:59 Drug: Acetaminophen PO 1000 mg PO once Route: PO; pf1 23:36 Follow up: Response: No adverse reaction; Marked relief of symptoms pf1 Disposition: 10/11 07:21 Co-signature as Attending Physician, Brock Mejia MD I agree with the assessment sp4 and plan of care. I reviewed the patient's care provided by the Advanced Practice Provider and agree with the diagnosis and treatment plan. Disposition Summary: 10/11/23 23:29 Discharge Ordered Notes: Location: Home kb Condition: Stable kb Diagnosis - Cough kb Followup: kb - With: Emergency Department - When: As needed - Reason: Worsening of condition Followup: kb - With: Private Physician - When: 2 - 3 days - Reason: Recheck today's complaints, Continuance of care, Re-evaluation by your physician Discharge Instructions: - Discharge Summary Sheet kb - Cough, Adult, [id number] kb Forms: - Medication Reconciliation Form kb - Thank You Letter kb - Antibiotic Education kb - Prescription Opioid Use kb - Patient Portal Instructions kb - Leadership Thank You Letter kb Prescriptions: - albuterol sulfate 90 mcg/actuation Inhalation HFA Aerosol Inhaler - inhale 2 puff INHALATION route every 4 to 6 hours As needed; 1 unit; Refills: kb 0, Product Selection Permitted Signatures: Dispatcher [employer] Francie Triana, Afsaneh Pressley, RN RN pf1 Brock Mejia MD MD sp4
[2023-10-12 06:36] VITALS: BP 119/79; TEMP 98.3; O2SAT 100
--- NOTE | 2023-10-13 23:53 | RAD REPORT ---
EXAM DESCRIPTION: Chest Single View CLINICAL HISTORY: 8 years Female, Cough;Congestion COMPARISON: Chest radiograph dated 08/13/2023 FINDINGS: No focal lung consolidation. No pleural effusion. No pneumothorax. Cardiomediastinal silhouette is within normal limits. No acute osseous abnormality. IMPRESSION: No acute cardiopulmonary disease. Electronically signed by: Donato Martino DO 10/11/2023 10:57 PM CDT Due to temporary technical issues with the PACS/Fluency reporting system, reports are being signed by the in house radiologists without review as a courtesy to insure prompt reporting. The interpreting radiologist is fully responsible for the content of the report.
== END 2023-10-11 23:38 | disposition home or self-care (01) ==
LOC: ER 22:07
DX: R05.9 Cough, unspecified (principal); J45.909 Unspecified asthma, uncomplicated; Z28.310 Unvaccinated for COVID-19; Z88.1 Allergy status to other antibiotic agents; Z88.5 Allergy status to narcotic agent
CPT/HCPCS: 71045; 99284; J7613

== ENCOUNTER 2024-03-05 14:43 | Emergency (ER) | payer OTHER ==
[2024-03-05] MEDS ORDERED: ONDANSETRON 4 MG/2 ML VIAL ONE (15:23)
[2024-03-05] MEDS ORDERED: NA CHLORIDE 0.9% 1,000 ML ONE (15:23)
[2024-03-05] MEDS ORDERED: FENTANYL CITR 100 MCG/2 ML ONE (15:23)
[2024-03-05 15:34] LABS: Absolute Basophils 0.1 K/uL (0-0.5); Absolute Eosinophils 0.2 K/uL (0-0.5); Absolute Lymphocytes (CBC) 3.5 K/uL (0.7-4.9); Absolute Monocytes 0.6 K/uL (0.1-1.3); Absolute Neutrophil 4.1 K/uL (1.8-8.0); Basophils % 0.8 % (0-1.3); Hematocrit 41.3 % (36.0-45.0); Hemoglobin 14.2 g/dL (12.0-15.0); Lymphocytes % 41.3 % (15.3-44.8); MCH 29.9 pg (27.0-35.0); MCHC 34.4 g/dL (32.0-36.0); MCV 86.9 fL (80-100); MPV 7.4 fL (7.6-11.3); Monocytes % 7.5 % (3.3-12.3); Neutrophils % 48.4 % (41.7-73.7); Nucleated Red Blood Cells % 0.1 % (0-0); Platelets 435 thou/uL (152-406); RBC Red Blood Cell Count 4.76 M/uL (3.86-4.86); Red Cell Distribution Width 13.9 % (12.1-15.2)
[2024-03-05 15:36] LABS: Specific Gravity 1.013 (1.005-1.030)
[2024-03-05 15:47] LABS: ALT/SGPT 24 U/L (13-56); Albumin 3.6 g/dL (3.4-5.0); Albumin/Globulin Ratio 0.8 (1.1-1.8); Alkaline Phosphatase 54 U/L (45-117); Anion Gap 10.7 mEq/L (5.0-15.0); BUN Blood Urea Nitrogen 6 mg/dL (7-18); Bicarbonate 23 mEq/L (21-32); Bilirubin Total 0.3 mg/dL (0.2-1.0); Globulin 4.4 g/dL (2.3-3.5); Glomerular Filtration Rate 109 ml/min (=/>90); Glucose Level 87 mg/dL (74-106); Potassium 3.7 mEq/L (3.5-5.1); Sodium Level 137 mEq/L (136-145); Specific Gravity 1.013 (1.005-1.030); Urine Bacteria <20 /HPF (<20); Urine Bilirubin NEGATIVE (Negative); Urine Blood 3+ (OVER) (Negative); Urine Clarity Turbid (Clear); Urine Color Colorless (Yellow); Urine Culture Reflex Order NOT NEEDED; Urine Glucose NEGATIVE (Negative); Urine Ketones NEGATIVE (Negative); Urine Microscopic Reflex YN ORDER UMIC; Urine Nitrite NEGATIVE (Negative); Urine Protein TRACE (Negative); Urine Urobilinogen Normal (Normal); Urine WBC <5 /HPF (<5)
[2024-03-05 15:54] LABS: AST/SGOT < 10 U/L (15-37)
--- NOTE | 2024-03-05 16:17 | RAD REPORT ---
EXAM DESCRIPTION: US - Transvaginal Study Probe - 03/05/2024 4:07 pm CLINICAL HISTORY: VAGINAL BLEEDING Pelvic pain. COMPARISON: TRANSVAGINAL STUDY PROBE dated 07/08/2010 FINDINGS: The uterus is normal in size, shape and echotexture. The uterus measures 9.2 x 5.1 x 4.8 c m. The endometrial stripe measures 11 mm, normal. Both ovaries are normal in size, shape and echotexture. The right ovary measures 2.6 x 1.6 x 1.2 cm. The left ovary measures 2.1 x 1.5 x 1.2 cm.. No ovarian or parovarian lesions. No adnexal masses. Normal Doppler blood flow was demonstrated to both ovaries. No significant pelvic ascites. IMPRESSION: No acute finding is seen.
--- NOTE | 2024-03-05 16:44 | ER ---
Nurse's Notes [facility] Name: Carla Duncan Age: 28 yrs Sex: Female : 1995 Arrival Date: 03/05/2024 Time: 14:43 Bed 8 Private MD: Diagnosis: Abnormal uterine and vaginal bleeding, unspecified Presentation: 03/05 15:02 Chief complaint: Patient states: c section 7 months ago, has had vaginal bleeding ever tm6 since. Heavy flow, will bleed through underwear frequently. In a lot of pain. Ebola Screen: Patient negative for fever greater than or equal to 101.5 degrees Fahrenheit, and additional compatible Ebola Virus Disease symptoms Patient denies exposure to infectious person. Patient denies travel to an Ebola-affected area in the 21 days before illness onset. No symptoms or risks identified at this time. Risk Assessment: Do you want to hurt yourself or someone else? Patient reports no desire to harm self or others. 15:02 Method Of Arrival: Ambulatory tm6 15:02 Acuity: VENKATESH 3 tm6 15:07 Coronavirus screen: Vaccine status: Patient reports being unvaccinated. Initial Sepsis tm6 Screen: Does the patient meet any 2 criteria? HR > 90 bpm. Does the patient have a suspected source of infection? No. Patient's initial sepsis screen is negative. Onset of symptoms was August 19, 2023. Triage Assessment: 15:03 General: Appears uncomfortable, Behavior is calm, cooperative. Pain: Complains of pain tm6 in suprapubic area Pain does not radiate. EENT: No signs and/or symptoms were reported regarding the EENT system. Neuro: Level of Consciousness is awake, alert, obeys commands, Oriented to person, place, time, situation. Cardiovascular: Patient's skin is warm and dry. Respiratory: Airway is patent Respiratory effort is even, unlabored, Respiratory pattern is regular, symmetrical. GI: Abdomen is flat, non-distended, Reports lower abdominal pain. : Reports vaginal bleeding that is bright red, heavy flow since 3 months ago. Derm: No signs and/or symptoms reported regarding the dermatologic system. Musculoskeletal: No signs and/or symptoms reported regarding the musculoskeletal system. 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 - Infectious Disease History:: Denies. - Social history:: Smoking status: Reported history of juuling and/or vaping. Patient uses alcohol, occasionally. Screenin:03 [facility] ED Fall Risk Assessment (Adult) History of falling in the last 3 months, db including since admission No falls in past 3 months (0 pts) Confusion or Disorientation No (0 pts) Intoxicated or Sedated No (0 pts) Impaired Gait No (0 pts) Mobility Assist Device Used No (0 pt) Altered Elimination No (0 pt) Score/Fall Risk Level 0 - 2 = Low Risk Oriented to surroundings, Maintained a safe environment. Abuse screen: Denies threats or abuse. Denies injuries from another. Nutritional screening: No deficits noted. Tuberculosis screening: No symptoms or risk factors identified. Assessment: 15:35 Reassessment: Patient appears in no apparent distress at this time. Patient and/or db family updated on plan of care and expected duration. Pain level reassessed. Patient is alert, oriented x 3, equal unlabored respirations, skin warm/dry/pink. General: Appears in no apparent distress. comfortable, Behavior is calm, cooperative, appropriate for age. Pain: Complains of pain in abdomen and pelvis. Neuro: Level of Consciousness is awake, alert, obeys commands, Oriented to person, place, time, situation. Respiratory: Airway is patent Respiratory effort is even, unlabored, Respiratory pattern is regular, symmetrical. GI: Abdomen is flat, non-distended, Reports lower abdominal pain. : Reports vaginal bleeding that is heavy flow. 17:03 Reassessment: Patient appears in no apparent distress at this time. Patient and/or db family updated on plan of care and expected duration. Pain level reassessed. Patient is alert, oriented x 3, equal unlabored respirations, skin warm/dry/pink. Patient states feeling better. Vital Signs: 15:06 BP 122 / 91; Pulse 106; Resp 20; Temp 98.4(O); Pulse Ox 100% ; Weight 81.65 kg; Height tm6 5 ft. 2 in. ; Pain 10/10; 15:27 BP 134 / 98; Pulse 118; Resp 18; Pulse Ox 99% on R/A; db 16:30 BP 109 / 73; Pulse 102; Resp 18; Pulse Ox 100% ; db 15:06 Body Mass Index 32.92 (81.65 kg, 157.48 cm) tm6 15:06 Pain Scale: Adult tm6 ED Course: 14:48 Patient arrived in ED. sj2 14:49 [facility] May[facility]ard [facility]C [facility] kb 14:49 Roosevelt Brown MD is Attending Physician. kb 15:03 Triage completed. tm6 15:03 Arm band placed on right wrist. tm6 15:13 Jasmyne Ross, JUDI is Primary Nurse. db 15:23 CMP Sent. ph 15:23 CBC with Diff Sent. ph 15:23 Test, Urine Sent. ph 15:24 Urinalysis w/ reflexes Sent. ph 15:24 Initial lab(s) drawn, by me, sent to lab. Inserted saline lock: 22 gauge in right em1 forearm, using aseptic technique. Blood collected. Flushed with 10 mL NS. 16:09 US Transvaginal Study (Probe) In Process Unspecified. EDMS 17:03 Patient has correct armband on for positive identification. Bed in low position. Call db light in reach. Side rails up X 1. Provided Education on: DISCHARGE. Pulse ox on. NIBP on. Warm blanket given. Pillow given. 17:03 No provider procedures requiring assistance completed. IV discontinued, intact, db bleeding controlled, No redness/swelling at site. Administered Medications: 15:20 Drug: Ondansetron IVP 4 mg IVP once; over 2 minutes Route: IVP; Site: right forearm; db 17:02 Follow up: Response: No adverse reaction db 15:25 Drug: NS 0.9% IV 1000 ml IV at 1000 ml once Route: IV; Rate: 1000 ml; Site: right db forearm; 17:02 Follow up: Response: No adverse reaction; IV Status: Completed infusion; IV Intake: db 1000ml 15:25 Drug: fentaNYL (PF) IVP 25 mcg IVP once Route: IVP; Site: right forearm; db 17:02 Follow up: Response: No adverse reaction db 16:40 Drug: Hydrocodone-Acetaminophen PO (7.5 mg-325 mg) 1 tabs PO once Route: PO; db 17:02 Follow up: Response: No adverse reaction db Medication: 17:03 VIS not applicable for this client. db Intake: 17:02 IV: 1000ml; Total: 1000ml. db Outcome: 16:44 Discharge ordered by . ariel 17:03 Discharged to home ambulatory, db 17:03 Condition: stable 17:03 Discharge instructions given to patient, Instructed on discharge instructions, follow up and referral plans. 17:05 Patient left the ED. db Signatures: Dispatcher [employer] EDMS Francie Maynard, MERON-Mei SECRETARY BOOKKEEPER-Aidan Kebede em1 Madison Marrufo RN RN Jasmyne Ross RN RN Scotty Chavez RN RN tm6 Beth Marshall 2 Corrections: (The following items were deleted from the chart) 15:07 15:02 Chief complaint: Patient states: c section 3 months ago, has had vaginal bleeding tm6 ever since. Heavy flow, will bleed through underwear frequently. In a lot of pain. tm6
--- NOTE | 2024-03-05 16:44 | EDPHYS ---
Physician Documentation [facility] Name: Carla Duncan Age: 28 yrs Sex: Female : 1995 Arrival Date: 03/05/2024 Time: 14:43 Bed 8 Private MD: ED Physician Roosevelt Brown HPI: 03/05 16:34 This 28 yrs old Female presents to ER via Ambulatory with complaints of kb Vaginal Bleeding, Abdominal Pain. 16:34 Pt is a 28 year old female who presents for vaginal bleeding and suprapubic pain that kb has been ongoing since 7 months ago. Denies any new symptoms. States her family convinced her to come in today. 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 - Infectious Disease History:: Denies. - Social history:: Smoking status: Reported history of juuling and/or vaping. Patient uses alcohol, occasionally. ROS: 16:32 Constitutional: As per HPI kb Exam: 16:32 Constitutional: This is a well developed, well nourished patient who is awake, alert, kb and in no acute distress. Head/Face: Normocephalic, atraumatic. ENT: Moist Mucous membranes Cardiovascular: Regular rate Respiratory: Respirations even and unlabored. No increased work of breathing. Talking in full sentences Skin: Warm, dry with normal turgor. Normal color. MS/ Extremity: Pulses equal, no cyanosis. Neurovascular intact. Full, normal range of motion. Neuro: Awake and alert, GCS 15, oriented to person, place, time, and situation. Moves all extremities. Normal gait. 16:32 Abdomen/GI: Inspection: abdomen appears normal, Bowel sounds: normal, Palpation: soft, in all quadrants, mild abdominal tenderness, in the suprapubic area, Vital Signs: 15:06 BP 122 / 91; Pulse 106; Resp 20; Temp 98.4(O); Pulse Ox 100% ; Weight 81.65 kg; Height tm6 5 ft. 2 in. ; Pain 10/10; 15:27 BP 134 / 98; Pulse 118; Resp 18; Pulse Ox 99% on R/A; db 16:30 BP 109 / 73; Pulse 102; Resp 18; Pulse Ox 100% ; db 15:06 Body Mass Index 32.92 (81.65 kg, 157.48 cm) tm6 15:06 Pain Scale: Adult tm6 MDM: 14:49 Patient medically screened. kb 16:33 Differential diagnosis: nonspecific abdominal pain, uterine fibroids, abnormal uterine kb bleeding. Data reviewed: vital signs, nurses notes. Counseling: I had a detailed discussion with the patient and/or guardian regarding the historical points, exam findings, and any diagnostic results supporting the discharge/admit diagnosis, lab results, radiology results, the need for outpatient follow up, an OB/Gyne specialist, to return to the emergency department if symptoms worsen or persist or if there are any questions or concerns that arise at home. 03/05 15:08 Order name: CBC with Diff; Complete Time: 15:43 kb 03/05 15:08 Order name: Test, Urine; Complete Time: 15:43 kb 03/05 15:08 Order name: Urinalysis w/ reflexes; Complete Time: 15:47 kb 03/05 15:08 Order name: CMP; Complete Time: 16:13 kb 03/05 15:08 Order name: US Transvaginal Study (Probe); Complete Time: 16:18 kb 03/05 15:08 Order name: IV Saline Lock; Complete Time: 15:23 kb 03/05 15:08 Order name: Labs collected and sent; Complete Time: 15:23 kb 03/05 15:08 Order name: NPO; Complete Time: 17:02 kb Administered Medications: 15:20 Drug: Ondansetron IVP 4 mg IVP once; over 2 minutes Route: IVP; Site: right forearm; db 17:02 Follow up: Response: No adverse reaction db 15:25 Drug: NS 0.9% IV 1000 ml IV at 1000 ml once Route: IV; Rate: 1000 ml; Site: right db forearm; 17:02 Follow up: Response: No adverse reaction; IV Status: Completed infusion; IV Intake: db 1000ml 15:25 Drug: fentaNYL (PF) IVP 25 mcg IVP once Route: IVP; Site: right forearm; db 17:02 Follow up: Response: No adverse reaction db 16:40 Drug: Hydrocodone-Acetaminophen PO (7.5 mg-325 mg) 1 tabs PO once Route: PO; db 17:02 Follow up: Response: No adverse reaction db Disposition: 17:47 Co-signature as Attending Physician, Roosevelt Brown MD I reviewed the patient's care rt provided by the Advanced Practice Provider and agree with the diagnosis and treatment plan. Disposition Summary: 03/05/24 16:44 Discharge Ordered Notes: Location: Home kb Condition: Stable kb Diagnosis - Abnormal uterine and vaginal bleeding, unspecified kb Followup: kb - With: Emergency Department - When: As needed - Reason: Worsening of condition Followup: kb - With: Private Physician - When: 2 - 3 days - Reason: Recheck today's complaints, Continuance of care, Re-evaluation by your physician Discharge Instructions: - Discharge Summary Sheet kb - Abnormal Uterine Bleeding, Leqe-wu-[id number] kb Forms: - Medication Reconciliation Form kb - Antibiotic Education kb - Prescription Opioid Use kb - Patient Portal Instructions kb - Leadership Thank You Letter kb Signatures: Dispatcher [employer] Francie Triana, HEEL ROOM SUPERVISOR-C HEEL ROOM SUPERVISOR-Ckb Jasmyne Ross, RN RN Roosevelt Aranda MD MD rt Scotty Greenfield RN RN tm6 Corrections: (The following items were deleted from the chart) 15:08 15:08 Transvaginal Study (Probe)+[id number] ordered. [facility]
[2024-03-05] MEDS ORDERED: HYDROCODONE/APAP 7.5/325 MG TAB ONE (16:54)
[2024-03-05 17:29] VITALS: TEMP 98.4
[2024-03-05 17:32] VITALS: BP 109/73; O2SAT 100
== END 2024-03-05 17:05 | disposition home or self-care (01) ==
LOC: ER 14:43
DX: N93.9 Abnormal uterine and vaginal bleeding, unspecified (principal); F41.9 Anxiety disorder, unspecified; J45.909 Unspecified asthma, uncomplicated; G43.909 Migraine, unspecified, not intractable, without status migrainosus; F17.290 Nicotine dependence, other tobacco product, uncomplicated; Z88.1 Allergy status to other antibiotic agents; Z88.5 Allergy status to narcotic agent
CPT/HCPCS: 96361; 85025; 81001; 36415; 81025; 80053; 76830; 96375; 96374; 99284; J3010; J2405; J7030

== ENCOUNTER 2024-05-20 22:22 | Emergency (ER) | payer OTHER ==
[2024-05-20] MEDS ORDERED: LORAZEPAM 1 MG TABLET ONE (23:01)
--- NOTE | 2024-05-21 01:51 | EDPHYS ---
Physician Documentation [facility] Name: Carla Duncan Age: 28 yrs Sex: Female : 1995 Arrival Date: 05/20/2024 Time: 22:22 Bed DIS2 Private MD: ED Physician Roosevelt Brown HPI: 05/20 23:06 This 28 yrs old Female presents to ER via Unassigned with complaints of rt Anxiety, Medication Refill. 23:06 Patient presents to the ED with anxiety, reported panic attack. This is due to the rt patient's child having seizures. States that she has been out of her Xanax, taking Wellbutrin. Denies other acute complaints at this time, symptoms are moderate in severity, no other aggravating elevating factors.. 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 - Infectious Disease History:: Denies. - Family history:: not pertinent. - Social history:: Smoking status: Patient denies any tobacco usage or history of. ROS: 23:06 Constitutional: Negative for fever, chills, and weight loss, Cardiovascular: Negative rt for chest pain, palpitations, and edema, Respiratory: Negative for shortness of breath, cough, wheezing, and pleuritic chest pain, Abdomen/GI: Negative for abdominal pain, nausea, vomiting, diarrhea, and constipation, MS/Extremity: Negative for injury and deformity, Skin: Negative for injury, rash, and discoloration, 23:06 Psych: Positive for anxiety, Exam: 23:06 Constitutional: This is a well developed, well nourished patient who is awake, alert, rt and in no acute distress. Head/Face: Normocephalic, atraumatic. Chest/axilla: Normal chest wall appearance and motion. Nontender with no deformity. No lesions are appreciated. Cardiovascular: Regular rate and rhythm with a normal S1 and S2. No gallops, murmurs, or rubs. Normal PMI, no JVD. No pulse deficits. Respiratory: Lungs have equal breath sounds bilaterally, clear to auscultation and percussion. No rales, rhonchi or wheezes noted. No increased work of breathing, no retractions or nasal flaring. Abdomen/GI: Soft, non-tender, with normal bowel sounds. No distension or tympany. No guarding or rebound. No evidence of tenderness throughout. Skin: Warm, dry with normal turgor. Normal color with no rashes, no lesions, and no evidence of cellulitis. MS/ Extremity: Pulses equal, no cyanosis. Neurovascular intact. Full, normal range of motion. 23:06 ECG was reviewed by the Attending Physician. Vital Signs: 23:05 BP 142 / 86; Pulse 140; Resp 22; Temp 98.4; Pulse Ox 97% on R/A; Weight 86.18 kg; al5 Height 5 ft. 0 in. ; 05/21 00:15 Pulse 107; Resp 18; al5 01:23 BP 127 / 89; Pulse 98; Resp 16; Pulse Ox 98% on R/A; al5 05/20 23:05 Body Mass Index 37.11 (86.18 kg, 152.4 cm) al5 MDM: 05/20 22:29 Medical Screening Exam initiated rt 05/21 03:36 Data reviewed: vital signs, nurses notes, EKG. I considered the following discharge rt prescriptions or medication management in the emergency department Medications were administered in the Emergency Department. See MAR. Test considered but Not performed: Other Details Symptoms improving with Ativan, vital signs normalized, labs, imaging are not indicated. Care significantly affected by the following chronic conditions: Anxiety disorder. Counseling: I had a detailed discussion with the patient and/or guardian regarding the historical points, exam findings, and any diagnostic results supporting the discharge/admit diagnosis, the need for outpatient follow up, to return to the emergency department if symptoms worsen or persist or if there are any questions or concerns that arise at home. 05/20 22:41 Order name: EKG; Complete Time: 22:42 rt 05/20 22:41 Order name: EKG - Nurse/Tech; Complete Time: 22:59 rt EC/23 23:06 Rate is 120 beats/min. Rhythm is regular, Sinus tachycardia with No ectopy. QRS [place] is rt Normal. AL interval is normal. QRS interval is normal. QT interval is normal. No Q waves. T waves are Normal. No ST changes noted. Interpreted by me. Administered Medications: 23:05 Drug: LORazepam PO 2 mg PO once Route: PO; al5 23:23 Follow up: Response: No adverse reaction; Anxiety decreased al5 Disposition Summary: 05/21/24 01:50 Discharge Ordered Notes: Location: Home rt Problem: an acute exacerbation rt Symptoms: have improved rt Condition: Stable rt Diagnosis - Anxiety disorder, unspecified rt Followup: rt - With: Private Physician - When: 2 - 3 days - Reason: Discharge Instructions: - Discharge Summary Sheet rt - Panic Attack rt - Managing Anxiety, Adult rt Forms: - Medication Reconciliation Form rt - Antibiotic Education rt - Prescription Opioid Use rt - Patient Portal Instructions rt - Leadership Thank You Letter rt Signatures: Roosevelt Brown MD MD rt Leigh Ann Cheng RN RN al5
--- NOTE | 2024-05-21 01:51 | ER ---
Nurse's Notes [facility] Name: Carla Duncan Age: 28 yrs Sex: Female : 1995 Arrival Date: 05/20/2024 Time: : Bed DIS2 Private MD: Diagnosis: Anxiety disorder, unspecified Presentation: 05/20 23:05 Chief complaint: Patient states: patient experiencing anxiety attack after witnessing al5 her baby having seizures. hx of anxiety and has been out of her medication since , has an appointment on wednesday. Coronavirus screen: At this time, the client does not indicate any symptoms associated with coronavirus-19. Ebola Screen: No symptoms or risks identified at this time. Initial Sepsis Screen: Does the patient meet any 2 criteria? RR > 20 per min. HR > 90 bpm. Does the patient have a suspected source of infection? No. Patient's initial sepsis screen is negative. Risk Assessment: Do you want to hurt yourself or someone else? Patient reports no desire to harm self or others. Onset of symptoms was May 20, 2024. 23:05 Method Of Arrival: Ambulatory al5 23:05 Acuity: VENKATESH 3 al5 Triage Assessment: 23:05 General: Appears distressed, Behavior is anxious, crying. al5 23:05 Pain: Denies pain. EENT: No signs and/or symptoms were reported regarding the EENT al5 system. Neuro: Level of Consciousness is awake, alert, obeys commands, Oriented to person, place, time, situation. Cardiovascular: Capillary refill < 3 seconds Patient's skin is warm and dry. Rhythm is sinus tachycardia. Respiratory: Airway is patent Respiratory effort is even, unlabored, Respiratory pattern is regular, symmetrical, tachypnea. GI: No signs and/or symptoms were reported involving the gastrointestinal system. : No signs and/or symptoms were reported regarding the genitourinary system. Derm: Skin is intact, is healthy with good turgor, Skin is pink, warm \T\ dry. normal. Musculoskeletal: No signs and/or symptoms reported regarding the musculoskeletal system. LADIES' HAT TRIMMER: 05/21 02:10 unknown al5 Historical: - Allergies: 05/20 23:19 Amoxicillin; al5 23:19 Codeine; al5 23:19 Stadol; al5 23:19 Toradol; al5 - Home Meds: 23:19 Xanax 2 mg Oral tablet 2 times per day for Anxiety [Active]; al5 - PMHx: 23:19 Migraine; Asthma; Anxiety; al5 - PSHx: 23:19 section; al5 - Immunization history:: Adult Immunizations unknown. - Infectious Disease History:: Denies. - Family history:: not pertinent. - Social history:: Smoking status: Patient denies any tobacco usage or history of. Screenin:22 [facility] ED Fall Risk Assessment (Adult) History of falling in the last 3 months, al5 including since admission No falls in past 3 months (0 pts) Confusion or Disorientation No (0 pts) Intoxicated or Sedated No (0 pts) Impaired Gait No (0 pts) Mobility Assist Device Used No (0 pt) Altered Elimination No (0 pt) Score/Fall Risk Level 0 - 2 = Low Risk Oriented to surroundings, Maintained a safe environment, Hourly rounding (assess needs \T\ fall precautionary measures) done. Abuse screen: Denies threats or abuse. Denies injuries from another. Nutritional screening: No deficits noted. Tuberculosis screening: No symptoms or risk factors identified. Assessment: 23:05 Reassessment: see triage assessment. al5 23:22 Reassessment: Patient appears in no apparent distress at this time. Patient and/or al5 family updated on plan of care and expected duration. Pain level reassessed. Patient is alert, oriented x 3, equal unlabored respirations, skin warm/dry/pink. Patient states symptoms have improved. 05/21 00:30 Reassessment: Patient appears in no apparent distress at this time. No changes from al5 previously documented assessment. Patient and/or family updated on plan of care and expected duration. Pain level reassessed. Patient is alert, oriented x 3, equal unlabored respirations, skin warm/dry/pink. 02:10 Reassessment: Patient appears in no apparent distress at this time. No changes from al5 previously documented assessment. Patient and/or family updated on plan of care and expected duration. Pain level reassessed. Patient is alert, oriented x 3, equal unlabored respirations, skin warm/dry/pink. Vital Signs: 05/20 23:05 BP 142 / 86; Pulse 140; Resp 22; Temp 98.4; Pulse Ox 97% on R/A; Weight 86.18 kg; al5 Height 5 ft. 0 in. ; 05/21 00:15 Pulse 107; Resp 18; al5 01:23 BP 127 / 89; Pulse 98; Resp 16; Pulse Ox 98% on R/A; al5 05/20 23:05 Body Mass Index 37.11 (86.18 kg, 152.4 cm) al5 ED Course: 05/20 22:23 Patient arrived in ED. ra3 22:29 Roosevelt Brown MD is Attending Physician. rt 22:43 Leigh Ann Cheng, RN is Primary Nurse. al5 23:05 Arm band placed on right wrist. Patient placed in the treatment room, on a stretcher. al5 23:19 Triage completed. al5 23:23 Patient has correct armband on for positive identification. Bed in low position. Call al5 light in reach. Side rails up X2. Provided Education on: plan of care. Pulse ox on. 23:23 No provider procedures requiring assistance completed. Patient did not have IV access al5 during this emergency room visit. Administered Medications: 23:05 Drug: LORazepam PO 2 mg PO once Route: PO; al5 23:23 Follow up: Response: No adverse reaction; Anxiety decreased al5 Medication: 23:22 VIS not applicable for this client. al5 Outcome: 05/21 01:50 Discharge ordered by . rt 02:10 Discharged to home ambulatory, with family, al5 02:10 Condition: good 02:10 Discharge instructions given to patient, Instructed on discharge instructions, follow up and referral plans. Demonstrated understanding of instructions, follow-up care, 02:11 Patient left the ED. al5 Signatures: Roosevelt Brown MD MD rt [facility]ra Carr ra3 Leigh Ann Cheng, RN RN al5
[2024-05-21 03:57] VITALS: TEMP 98.4
[2024-05-21 03:59] VITALS: BP 127/89; O2SAT 98
--- NOTE | 2024-05-23 10:07 | EKG ---
Test Date: 2024-05-20 Test Time: 22:55:10 Male Infertility Specialist: SHOAIB MEASUREMENT RESULTS: Intervals: Rate: 120 KS: 140 QRSD: 70 QT: 316 QTc: 446 [place]: P: 63 KS: 140 QRS: 68 T: 38 INTERPRETIVE STATEMENTS: Sinus tachycardia Otherwise normal ECG Compared to ECG 03/15/2024 08:14:11 Sinus rhythm no longer present Electronically Signed On 05-23-24 10:06:32 CARTRIDGE MAKER by Ernesto Munoz
== END 2024-05-21 02:11 | disposition home or self-care (01) ==
LOC: ER 22:22
DX: F41.9 Anxiety disorder, unspecified (principal); Z76.0 Encounter for issue of repeat prescription
CPT/HCPCS: 93005; 99283

== ENCOUNTER 2024-05-26 21:29 | Emergency (ER) | payer OTHER ==
[2024-05-26] MEDS ORDERED: WATER FOR INJ,STERILE 10 ML ONE (21:38)
[2024-05-26] MEDS ORDERED: ZIPRASIDONE MESYLA 20 MG/VIAL IM ONE (21:38)
[2024-05-26] MEDS ORDERED: NA CHLORIDE 0.9% 2,000 ML ONE (22:19)
[2024-05-26] MEDS ORDERED: LIDOCAINE 1% 20 ML MDV ONE (22:20)
[2024-05-26 22:34] LABS: Absolute Eosinophils 0.4 K/uL (0-0.5); Absolute Lymphocytes (CBC) 2.5 K/uL (0.7-4.9); Absolute Monocytes 0.2 K/uL (0.1-1.3); Absolute Neutrophil 2.5 K/uL (1.8-8.0); Basophils % 0.7 % (0-1.3); Eosinophils % 6.8 % (0-4.4); Hematocrit 41.3 % (36.0-45.0); Hemoglobin 13.7 g/dL (12.0-15.0); Lymphocytes % 45.1 % (15.3-44.8); MCH 29.5 pg (27.0-35.0); MCHC 33.1 g/dL (32.0-36.0); MCV 89.1 fL (80-100); MPV 7.5 fL (7.6-11.3); Monocytes % 3.8 % (3.3-12.3); Neutrophils % 43.6 % (41.7-73.7); Platelets 471 thou/uL (152-406); RBC Red Blood Cell Count 4.64 M/uL (3.86-4.86); Red Cell Distribution Width 14.7 % (12.1-15.2)
[2024-05-26 22:45] LABS: PT Prothrombin Time 10.3 SECONDS (9.4-12.5); PTT, Activated Partial Thromb 33.6 SECONDS (24.3-36.9); Protime INR 0.92
[2024-05-26 23:03] LABS: ALT/SGPT 25 U/L (13-56); AST/SGOT < 10 U/L (15-37); Albumin 3.8 g/dL (3.4-5.0); Albumin/Globulin Ratio 0.9 (1.1-1.8); Alkaline Phosphatase 64 U/L (45-117); Anion Gap 10.1 mEq/L (5.0-15.0); BUN Blood Urea Nitrogen 6 mg/dL (7-18); Bicarbonate 21 mEq/L (21-32); Bilirubin Direct < 0.2 mg/dL (0-0.2); Bilirubin Total < 0.2 mg/dL (0.2-1.0); Globulin 4.3 g/dL (2.3-3.5); Glomerular Filtration Rate 101 ml/min (=/>90); Glucose Level 91 mg/dL (74-106); Potassium 4.1 mEq/L (3.5-5.1); Protein, Total 8.1 g/dL (6.4-8.2); Sodium Level 141 mEq/L (136-145)
[2024-05-27 00:01] LABS: Specific Gravity 1.007 (1.005-1.030); Sqamous Epithelial <5 /HPF (None Seen); Urine Bacteria <20 /HPF (<20); Urine Bilirubin NEGATIVE (Negative); Urine Blood 1+ (Negative); Urine Clarity Extremely Turbid (Clear); Urine Color Colorless (Yellow); Urine Crystals Unidentified Few /HPF (None Seen); Urine Culture Reflex Order NOT NEEDED; Urine Glucose NEGATIVE (Negative); Urine Ketones NEGATIVE (Negative); Urine Microscopic Reflex YN ORDER UMIC; Urine Nitrite NEGATIVE (Negative); Urine Protein NEGATIVE (Negative); Urine RBC <5 /HPF (None Seen); Urine Urobilinogen Normal (Normal); Urine WBC <5 /HPF (<5)
[2024-05-27 00:10] LABS: Barbiturates NEGATIVE (NEGATIVE); Benzodiazepines POSITIVE (NEGATIVE); Cocaine NEGATIVE (NEGATIVE); METHAMPHETAM NEGATIVE (NEGATIVE); Methadone NEGATIVE (NEGATIVE); Opiates NEGATIVE (NEGATIVE); Phencyclidine NEGATIVE (NEGATIVE); THC Cannibis NEGATIVE (NEGATIVE)
[2024-05-27] MEDS ORDERED: THIAMINE 200 MG/2 ML INJ ONE (02:05)
[2024-05-27] MEDS ORDERED: IBUPROFEN 400 MG TAB ONE (02:15)
--- NOTE | 2024-05-27 06:03 | ER ---
Nurse's Notes [facility] Name: Carla Duncan Age: 28 yrs Sex: Female : 1995 Arrival Date: 05/26/2024 Time: 21:29 Bed 3 Private MD: Diagnosis: Acute depression, acute suicide attempt, acute overdose, left forearm self-inflicted laceration Presentation: 05/26 21:29 Chief complaint: EMS states: PT admits to ingesting unknown amount of hydroxizine, lg3 Topamax and use of ETOH tonight. PT states she wants to go to sleep and not wake up. reports recent loss of custody of 3 small children. PT also used eyebrow blade to cut left forearm. laceration with moderate bleeding noted. pressure dressing applied. Coronavirus screen: Client denies travel out of the [place] in the last 14 days. At this time, the client does not indicate any symptoms associated with coronavirus-19. Ebola Screen: No symptoms or risks identified at this time. Initial Sepsis Screen: Does the patient meet any 2 criteria? No. Patient's initial sepsis screen is negative. Does the patient have a suspected source of infection? No. Patient's initial sepsis screen is negative. Risk Assessment: Do you want to hurt yourself or someone else? Patient reports desire/thoughts of hurting themselves or someone else. Provider notified. Onset of symptoms was May 26, 2024. Care prior to arrival: IV initiated. 20 GA, in the right hand. 21:29 Method Of Arrival: EMS: [facility] 3 21:29 Acuity: VENKATESH 2 lg3 21:45 Note POISON CONTROL WATCH FOR QRS PROLONGATION IF >110 GIVE SODIUM vc1 BICARB. PATIENT MAY EXPERIENCE TACHYCARDIA, AGITATION, CONFUSION, LETHARGY, SEIZURES, VENTRICULAR DYSRHYTHMIAS, AND JOB COST ESTIMATOR DEPRESSION. Triage Assessment: 21:29 General: Appears in no apparent distress. Behavior is anxious, crying, fussy. Pain: lg3 Complains of pain in palmar aspect of left forearm. EENT: No deficits noted. No signs and/or symptoms were reported regarding the EENT system. Neuro: [place] Agitation-Sedation Scale (RASS): +1 Restless Level of Consciousness is awake, obtunded, Oriented to person, place, situation. Cardiovascular: No deficits noted. Denies chest pain, shortness of breath, Capillary refill < 3 seconds Clubbing of nail beds is absent JVD is absent Patient's skin is warm and dry. Respiratory: No deficits noted. Airway is patent Respiratory effort is even, unlabored, Respiratory pattern is regular, symmetrical. GI: No deficits noted. No signs and/or symptoms were reported involving the gastrointestinal system. Abdomen is round non-distended. : No signs and/or symptoms were reported regarding the genitourinary system. Derm: Skin is intact, is healthy with good turgor, Skin is dry, Skin is normal, Skin temperature is warm Wound noted palmar aspect of left forearm. Musculoskeletal: No deficits noted. No signs and/or symptoms reported regarding the musculoskeletal system. Circulation, motion, and sensation intact. Range of motion: intact in all extremities. MANAGER RENTAL: 21:29 LMP 05/22/2024, unknown lg3 Historical: - Allergies: 21:53 Amoxicillin; lg3 21:53 Codeine; lg3 21:53 Stadol; lg3 21:53 Toradol; lg3 - Home Meds: 21:53 Wellbutrin XL Oral [Active]; Topamax Oral [Active]; Klonopin Oral [Active]; Xanax Oral lg3 [Active]; Promethazine Oral [Active]; sertraline oral [Active]; - PMHx: 21:53 Anxiety; Asthma; Migraine; Depressive disorder; lg3 - PSHx: 21:53 section; lg3 - Immunization history:: Adult Immunizations up to date. - Infectious Disease History:: Denies. - Social history:: Smoking status: Patient denies any tobacco usage or history of. Patient uses alcohol, only on a social basis. Patient/guardian denies using street drugs. - Family history:: not pertinent. Screenin:29 [facility] ED Fall Risk Assessment (Adult) History of falling in the last 3 months, lg3 including since admission No falls in past 3 months (0 pts) Confusion or Disorientation Yes (5 pts) Intoxicated or Sedated Yes (3 pts) Impaired Gait No (0 pts) Mobility Assist Device Used No (0 pt) Altered Elimination No (0 pt) Score/Fall Risk Level 3 or more points = High Risk Oriented to surroundings, Maintained a safe environment, Educated pt \\T\\ family on fall prevention, incl call for assistance when getting out of bed, Assessed \\T\\ reinforced patient's understanding of fall precautions, Provided non-skid footwear, Utilized family, sitter, or virtual packer inspector as indicated. Abuse screen: Denies threats or abuse. Denies injuries from another. Nutritional screening: No deficits noted. Tuberculosis screening: No symptoms or risk factors identified. Assessment: 21:29 General: see triage assessment. lg3 21:40 General: PT IN ROOM CRYING, "I'M JUST SO TIRED OF FIGHTING" . vc1 23:11 General: Appears in no apparent distress. comfortable, Behavior is calm. Neuro: lg3 [place]ett Agitation-Sedation Scale (RASS): -1 Drowsy 05/27 00:32 General: pt quietly resting at this time . lg3 01:30 Reassessment: Patient appears in no apparent distress at this time. Patient and/or cp4 family updated on plan of care and expected duration. Pain level reassessed. Patient is alert, oriented x 3, equal unlabored respirations, skin warm/dry/pink. 02:30 Reassessment: Patient appears in no apparent distress at this time. Patient and/or cp4 family updated on plan of care and expected duration. Pain level reassessed. Patient is alert, oriented x 3, equal unlabored respirations, skin warm/dry/pink. 03:30 Reassessment: Patient appears in no apparent distress at this time. Patient and/or cp4 family updated on plan of care and expected duration. Pain level reassessed. Patient is alert, oriented x 3, equal unlabored respirations, skin warm/dry/pink. 03:30 Reassessment: Patient appears in no apparent distress at this time. Patient and/or cp4 family updated on plan of care and expected duration. Pain level reassessed. Patient is alert, oriented x 3, equal unlabored respirations, skin warm/dry/pink. 04:30 Reassessment: Patient appears in no apparent distress at this time. Patient and/or kj2 family updated on plan of care and expected duration. Pain level reassessed. Patient is alert, oriented x 3, equal unlabored respirations, skin warm/dry/pink. 05:08 General: nurse to nurse report given to Tisha Varner . lg3 06:07 Reassessment: Patient appears in no apparent distress at this time. No changes from lg3 previously documented assessment. Patient and/or family updated on plan of care and expected duration. Pain level reassessed. Patient is alert, oriented x 3, equal unlabored respirations, skin warm/dry/pink. Psych: 05/26 21:29 [place] Suicide Severity Screening: In the past month, have you wished you were lg3 or wished you could go to sleep and not wake up? Patient responds "yes." "In the past month, have you actually had any thoughts of killing yourself?" Patient responds "yes." "In your lifetime, have you ever done anything, started to do anything, or prepared to do anything to end your life?" Patient responds "yes." Patient reports suicidal intent within 3 past months. Subjective: Patient's mood is sad, hopeless, Delusions are denied, Hallucinations are denied Having thoughts of suicide. Plan for suicide is overdose. Objective: Patient is defensive, guarded, irritable, using poor eye contact, restless, Speech is rambling, slurred, Patient has mutilated themselves by self inflicted laceration to left forearm. Interventions: Removed personal items and placed in bag. Patient placed in hospital gown. Searched person for dangerous items. Urine collected and sent for urine drug test. Belonging list filled out. Safety Checks: Personal items have been removed. Door is open. No visitors are present at this time. Patient uses unknown amount of liquor of liquor, Last use was 2 hours ago. Patient does not have a history of DTs. Commitment: Patient will be an involuntary commitment. Vital Signs: 21:29 BP 149 / 95; Pulse 107; Resp 18 S; Temp 97.3(O); Pulse Ox 99% on R/A; Weight 86.18 kg lg3 (R); Height 5 ft. 0 in. (R); Pain 8/10; 23:11 BP 115 / 71; Pulse 96; Resp 17; Temp 98.9; Pulse Ox 98% ; vk 05/27 00:00 BP 122 / 77; Pulse 86; Resp 18; Pulse Ox 96% ; cp4 01:00 BP 116 / 81; Pulse 94; Resp 18; Pulse Ox 96% ; cp4 02:00 BP 119 / 89; Pulse 91; Resp 18; Pulse Ox 96% ; cp4 03:00 BP 120 / 86; Pulse 95; Resp 18; Pulse Ox 95% ; cp4 04:00 BP 118 / 82; Pulse 90; Resp 18; Pulse Ox 98% ; cp4 05:00 BP 136 / 83; Pulse 90; Resp 18; Pulse Ox 97% ; cp4 06:05 BP 127 / 81; Pulse 92; Resp 17 S; Pulse Ox 98% on R/A; lg3 05/26 21:29 Body Mass Index 37.11 (86.18 kg, 152.4 cm) lg3 05/26 21:29 Pain Scale: Adult lg3 [place] Coma Score: 01:13 Eye Response: spontaneous(4). Motor Response: obeys commands(6). Verbal Response: sp4 oriented(5). Total: 15. ED Course: 05/26 21:29 Arm band placed on right wrist. EKG completed in triage. Results shown to MD. lg3 21:29 Patient has correct armband on for positive identification. Placed in gown. Bed in low lg3 position. Client placed on continuous cardiac and pulse oximetry monitoring. NIBP monitoring applied. personnel monitor on. 21:29 Maintain EMS IV. Dressing intact. Site clean \\T\\ dry. Gauge \\T\\ site: 20 R Hand. Flushed lg 3 with 10 mL NS. Patient maintains SpO2 saturation greater than 95% on room air. 21:30 Patient arrived in ED. jj6 21:32 Brock Mejia MD is Attending Physician. sp4 21:42 Reyna Moser, RN is Primary Nurse. lg3 21:53 Triage completed. lg3 22:23 Magnesium Sent. lg3 22:24 Acetaminophen Sent. lg3 22:24 Basic Metabolic Panel Sent. lg3 22:24 CBC with Diff Sent. lg3 22:24 ETOH Level Sent. lg3 22:24 Hepatic Function Sent. lg3 22:24 PT-INR Sent. lg3 22:24 Ptt, Activated Sent. lg3 22:24 Salicylate Sent. lg3 22:45 Acetaminophen Sent. vk 22:45 Basic Metabolic Panel Sent. vk 22:45 ETOH Level Sent. vk 22:45 Hepatic Function Sent. vk 23:51 Test, Urine Sent. vk 23:51 Urinalysis w/ reflexes Sent. vk 23:51 Urine Drug Screen Sent. vk 23:51 Initial lab(s) drawn, by me, sent to lab. Urine collected: clean catch specimen, clear, vk EKG done, by ED staff. 05/27 02:59 Noise minimized. Lights dimmed. Warm blanket given. cp4 03:05 Assist provider with laceration repair on palmar aspect of left forearm using sutures. lg3 Set up tray. Performed by Brock Mejia MD Dressed with Kerlix, Patient tolerated well. 04:23 faxed pt clinical's to various facilities. kmf 06:08 pt was accepted to [facility] Accepting alonso Crenshaw \\[id number]\\[id number]. Admin kmf Approval given by Tisha Honeycutt \\T\\[id number]. [facility] to transfer pt. 06:08 IV discontinued, intact, bleeding controlled, No redness/swelling at site. Pressure lg3 dressing applied. Administered Medications: 05/26 22:10 Drug: Geodon IM 40 mg IM once Route: IM; Site: right gluteus; lg3 23:11 Follow up: Response: No adverse reaction; Marked relief of symptoms; Anxiety decreased; lg3 RASS: Drowsy (-1) 22:24 Drug: NS 0.9% IV 1000 ml IV at 1000 ml once; to be given as a bolus over 60 minutes lg3 Route: IV; Rate: 1000 ml; Site: right hand; 23:12 Follow up: IV Status: Completed infusion; IV Intake: 1000ml lg3 22:24 Drug: NS 0.9% IV 1000 ml IV at 1000 ml once; to be given as a bolus over 60 minutes lg3 Route: IV; Rate: 1000 ml; Site: right hand; 23:12 Follow up: Response: No adverse reaction; IV Status: Completed infusion; IV Intake: lg3 1000ml 05/27 02:15 Drug: Thiamine IV 100 mg IV at bolus once Route: IV; Rate: bolus; Site: right hand; lg3 04:07 Follow up: Response: No adverse reaction; IV Status: Completed infusion; IV Intake: lg3 0.5ml 02:16 Drug: Ibuprofen PO 800 mg PO once Route: PO; lg3 04:07 Follow up: Response: No adverse reaction lg3 04:08 Drug: Lidocaine Infiltration (1 %) 20 ml 20 ml Infiltration once; to bedside Volume: 20 lg3 ml; Route: Infiltration; 04:08 Follow up: Response: No adverse reaction lg3 Medication: 06:08 VIS not applicable for this client. lg3 Intake: 05/26 23:12 IV: 1000ml; Total: 1000ml. lg3 23:12 IV: 1000ml; Total: 2000ml. lg3 05/27 04:07 IV: 1ml; Total: 2001ml. lg3 Outcome: 06:02 ER care complete, transfer ordered by . sp4 06:08 Transferred by ground EMS to other acute care facility: [facility]. Transfer form lg3 completed. 06:08 Condition: stable 06:08 Instructed on the need for transfer, Demonstrated understanding of instructions, 06:09 Patient left the ED. lg3 Signatures: Reyna Moser, RN RN lg3 Demetrice Fernández6 Mindy Allen RN RN vc1 Brock Mejia MD MD sp4 Kezia Akhtar cp4 Denita Olvera f Gely Scott Krystal, RN RN kj2 Corrections: (The following items were deleted from the chart) 05:27 03:00 BP 118 / 82; Pulse 90bpm; Resp 18bpm; Pulse Ox 98%; cp4 cp4 06:28 06:08 pt was accepted to [facility] kmf
--- NOTE | 2024-05-27 06:03 | EDPHYS ---
Physician Documentation [facility] Name: Carla Duncan Age: 28 yrs Sex: Female : 1995 Arrival Date: 05/26/2024 Time: 21:29 Bed 3 Private MD: ED Physician Brock Mejia HPI: 05/26 21:32 This 28 yrs old Female presents to ER via Unassigned with complaints of sp4 Suicidal Ideation, Altered Mental Status. 05/27 01:10 Patient is a 20-year-old female who presents after overdose on medications. . sp4 01:11 On arrival patient is very upset and irritable and not able to tell us exactly when she sp4 overdosed on medications. Patient reports being upset about multiple things at home. Patient states she took excess dose of hydroxyzine, Topamax. Also she consumes some alcohol. Patient then lacerated her left mid forearm. Patient arrives with EMS and EDUARDA by police is in place. . 01:13 Patient has past medical history of anxiety, asthma, migraines, depression.. 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 - Infectious Disease History:: Denies. - Social history:: Smoking status: Patient denies any tobacco usage or history of. Patient uses alcohol, only on a social basis. Patient/guardian denies using street drugs. - Family history:: not pertinent. ROS: 05/27 01:13 Constitutional: Negative for fever, chills, and weight loss, positive for emotional sp4 upset, positive for acute overdose, positive for left forearm laceration Eyes: Negative for injury, pain, redness, and discharge, All other systems are negative, Exam: 01:13 Constitutional: This is a well developed, well nourished patient who is awake, alert, sp4 very upset emotionally, screaming on arrival, tearful and mildly agitated Head/Face: Normocephalic, atraumatic. Eyes: Pupils equal round and reactive to light, extra-ocular motions intact. Lids and lashes normal. Conjunctiva and sclera are not injected. Cornea within normal limits. Periorbital areas with no swelling, redness, or edema. ENT: Nares patent. No nasal discharge, no septal abnormalities noted. Tympanic membranes are normal and external auditory canals are clear. Oropharynx with no redness, swelling, or masses, exudates, or evidence of obstruction, uvula midline. Mucous membranes moist. Neck: Trachea midline, no thyromegaly or masses palpated, and no cervical lymphadenopathy. Supple, full range of motion without nuchal rigidity, or vertebral point tenderness. Chest/axilla: Normal chest wall appearance and motion. Nontender with no deformity. No lesions are appreciated. Cardiovascular: Regular rate and rhythm with a normal S1 and S2. No gallops, murmurs, or rubs. Normal PMI, no JVD. No pulse deficits. Respiratory: Lungs have equal breath sounds bilaterally, clear to auscultation and percussion. No rales, rhonchi or wheezes noted. No increased work of breathing, no retractions or nasal flaring. Abdomen/GI: Soft, with normal bowel sounds. No distension or tympany. No guarding or rebound. No evidence of tenderness throughout. Back: No spinal tenderness. No costovertebral tenderness. Skin: Warm, dry with normal turgor. Normal color with no rashes, no lesions, and no evidence of cellulitis. MS/ Extremity: Pulses equal, no cyanosis. Neurovascular intact. Full, normal range of motion. Positive for 5 cm laceration left palmar forearm midway down the forearm, laceration is subcutaneous Neuro: Awake and alert, GCS 15, oriented to person, place, time, and situation. Cranial nerves II-XII grossly intact. Motor strength 5/5 in all extremities. Sensory grossly intact. Psych: Awake, alert, with orientation to person, place and time. Mild to moderate agitation, emotional upset, tearful, arrived screaming and crying 01:13 ECG was reviewed by the Attending Physician. EKG at 2142 normal sinus rhythm rate 100, otherwise normal EKG. Vital Signs: 05/26 21:29 BP 149 / 95; Pulse 107; Resp 18 S; Temp 97.3(O); Pulse Ox 99% on R/A; Weight 86.18 kg lg3 (R); Height 5 ft. 0 in. (R); Pain 8/10; 23:11 BP 115 / 71; Pulse 96; Resp 17; Temp 98.9; Pulse Ox 98% ; vk 05/27 00:00 BP 122 / 77; Pulse 86; Resp 18; Pulse Ox 96% ; cp4 01:00 BP 116 / 81; Pulse 94; Resp 18; Pulse Ox 96% ; cp4 02:00 BP 119 / 89; Pulse 91; Resp 18; Pulse Ox 96% ; cp4 03:00 BP 120 / 86; Pulse 95; Resp 18; Pulse Ox 95% ; cp4 04:00 BP 118 / 82; Pulse 90; Resp 18; Pulse Ox 98% ; cp4 05:00 BP 136 / 83; Pulse 90; Resp 18; Pulse Ox 97% ; cp4 06:05 BP 127 / 81; Pulse 92; Resp 17 S; Pulse Ox 98% on R/A; lg3 05/26 21:29 Body Mass Index 37.11 (86.18 kg, 152.4 cm) lg3 05/26 21:29 Pain Scale: Adult lg3 [place] Coma Score: 01:13 Eye Response: spontaneous(4). Motor Response: obeys commands(6). Verbal Response: sp4 oriented(5). Total: 15. Laceration: 03:02 Wound Repair of 6cm ( 2.4in ) subcutaneous laceration to dorsal aspect of left forearm sp4 - mid forearm transverse orientation 6 cm long . Irregularly shaped.. Minimal bleeding noted.. Distal neuro/vascular/tendon intact. Anesthesia: Wound infiltrated with 20 mls of 1% lidocaine. Wound prep: Moderate cleansing by me, Copious irrigation. Skin closed with 13 4-0 Silk using interrupted sutures and sterile technique. Dressed with 4x4's, Kerlix. Patient tolerated well. MDM: 05/26 22:11 Medical Screening Exam initiated sp4 05/27 06:02 Differential diagnosis: drug withdrawal. depression, psychosis secondary to sp4 non-compliance. Data reviewed: vital signs, nurses notes, lab test result(s), EKG. Consideration of Admission/Observation Escalation of care including admission/observation considered. ED course: Stable for transfer to [facility] . 05/26 21:33 Order name: Acetaminophen; Complete Time: : 4 05/26 21:33 Order name: Basic Metabolic Panel; Complete Time: : 4 05/26 21:33 Order name: CBC with Diff; Complete Time: : 05/26 21:33 Order name: ETOH Level; Complete Time: : 4 05/26 21:33 Order name: Hepatic Function; Complete Time: : 05/26 21:33 Order name: PT-INR; Complete Time: :05/26 21:33 Order name: Test, Urine; Complete Time: :4 05/26 21:33 Order name: Ptt, Activated; Complete Time: : 4 05/26 21:33 Order name: Salicylate; Complete Time: :05/26 21:33 Order name: Urinalysis w/ reflexes; Complete Time: :05/26 21:33 Order name: Urine Drug Screen; Complete Time: :05/26 21:48 Order name: Magnesium; Complete Time: : vc1 05/27 01:17 Order name: Alcohol Level [facility] 05/26 21:33 Order name: EKG - Nurse/Tech; Complete Time: 22:24 4 05/26 21:33 Order name: IV Saline Lock; Complete Time: 22:24 4 05/26 21:33 Order name: Labs collected and sent; Complete Time: 22:24 4 05/26 21:33 Order name: Suicide Precautions; Complete Time: 22:24 4 05/26 21:33 Order name: Suicide Screening ([place]); Complete Time: 22:24 05/26 21:33 Order name: Dressing - Wound; Complete Time: 22:23 4 05/26 21:33 Order name: Gloves, Sterile; Complete Time: 22:24 4 05/26 21:33 Order name: Setup Suture Tray; Complete Time: 22:24 4 05/26 21:57 Order name: Seizure Precautions; Complete Time: 22:23 vc1 EC/29 21:42 Rate is 100 beats/min. Rhythm is regular, Normal Sinus Rhythm. QRS [place] is Normal. [place] sp4 interval is normal. QRS interval is normal. QT interval is normal. No Q waves. T waves are Normal. No ST changes noted. Clinical impression: No evidence of ischemia. Interpreted by me. Reviewed by me. Administered Medications: 22:10 Drug: Geodon IM 40 mg IM once Route: IM; Site: right gluteus; lg3 23:11 Follow up: Response: No adverse reaction; Marked relief of symptoms; Anxiety decreased; lg3 RASS: Drowsy (-1) 22:24 Drug: NS 0.9% IV 1000 ml IV at 1000 ml once; to be given as a bolus over 60 minutes lg3 Route: IV; Rate: 1000 ml; Site: right hand; 23:12 Follow up: IV Status: Completed infusion; IV Intake: 1000ml lg3 22:24 Drug: NS 0.9% IV 1000 ml IV at 1000 ml once; to be given as a bolus over 60 minutes lg3 Route: IV; Rate: 1000 ml; Site: right hand; 23:12 Follow up: Response: No adverse reaction; IV Status: Completed infusion; IV Intake: lg3 1000ml 05/27 02:15 Drug: Thiamine IV 100 mg IV at bolus once Route: IV; Rate: bolus; Site: right hand; lg3 04:07 Follow up: Response: No adverse reaction; IV Status: Completed infusion; IV Intake: lg3 0.5ml 02:16 Drug: Ibuprofen PO 800 mg PO once Route: PO; lg3 04:07 Follow up: Response: No adverse reaction lg3 04:08 Drug: Lidocaine Infiltration (1 %) 20 ml 20 ml Infiltration once; to bedside Volume: 20 lg3 ml; Route: Infiltration; 04:08 Follow up: Response: No adverse reaction lg3 Disposition Summary: 05/27/24 06:02 Transfer Ordered Notes: Transfer Location: [facility] sp4 Reason: Higher level of care sp4 Condition: Stable sp4 Problem: new sp4 Symptoms: have improved sp4 Accepting Physician: Kendra Rocha MD (05/27/24 06:09) lg3 Diagnosis - Acute depression, acute suicide attempt, acute overdose, left forearm sp4 self-inflicted laceration Discharge Instructions: - Discharge Summary Sheet kmf Forms: - Medication Reconciliation Form kmf - SBAR form kmf Signatures: Dispatcher [employer] EDReyna Odronez, RN RN lg3 Mindy Allen, RN RN vc1 Brock Mejia MD MD sp4 Corrections: (The following items were deleted from the chart) 05/26 21:33 21:33 ACETAMINOPHEN+C.LAB.BRZ ordered. EDMS EDMS 21:33 21:33 BASIC METABOLIC PANEL+C.LAB.BRZ ordered. EDMS EDMS 21:33 21:33 CBC+H.LAB.BRZ ordered. EDMS EDMS 21:33 21:33 ETHANOL+C.LAB.BRZ ordered. EDMS EDMS 21:33 21:33 HEPATIC FUNCTION+C.LAB.BRZ ordered. EDMS EDMS 21:33 21:33 PROTIME (+INR)+COAG.LAB.BRZ ordered. EDMS EDMS 21:33 21:33 Test, Urine+UC.LAB.BRZ ordered. EDMS EDMS 21:33 21:33 PTT, ACTIVATED+COAG.LAB.BRZ ordered. EDMS EDMS 21:33 21:33 SALICYLATE+C.LAB.BRZ ordered. EDMS EDMS 21:33 21:33 Urinalysis+U.LAB.BRZ ordered. EDMS EDMS 21:33 21:33 URINE DRUG SCREEN+UC.LAB.BRZ ordered. EDMS EDMS 21:48 21:48 MAGNESIUM+C.LAB.BRZ ordered. EDMS EDMS 05/27 01:18 01:18 ETHANOL+C.LAB.BRZ ordered. EDMS EDMS 04:08 05/26 21:33 [place] ordered. sp4 lg3 05/27 06:09 06:02 [facility] Attending sp4 lg3
[2024-05-27 08:59] VITALS: TEMP 98.9
[2024-05-27 09:07] VITALS: BP 127/81; O2SAT 98
--- NOTE | 2024-05-29 10:19 | EKG ---
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
== END 2024-05-27 06:09 ==
LOC: ER 21:29
DX: T42.6X2A Poisoning by other antiepileptic and sedative-hypnotic drugs, intentional self-harm, initial encounter (principal); T50.992A Poisoning by other drugs, medicaments and biological substances, intentional self-harm, initial encounter; F32.A Depression, unspecified; S51.812A Laceration without foreign body of left forearm, initial encounter; X78.9XXA Intentional self-harm by unspecified sharp object, initial encounter
CPT/HCPCS: 96365; 96361; 93005; 85025; 81001; 80048; 36415; 83735; 81025; 85610; 80076; 85730; 80307; 96372; 99285; 96366; 12002; 80143; 80179; 82077 ×2; J3411; J2003; J3486; J7030

== ENCOUNTER 2024-08-22 12:02 | Emergency (ER) | payer OTHER ==
[2024-08-22] MEDS ORDERED: ONDANSETRON 4 MG/2 ML VIAL ONE (12:26)
[2024-08-22] MEDS ORDERED: FAMOTIDINE 20 MG/2 ML VIAL IV ONE (12:26)
[2024-08-22 13:01] LABS: Specific Gravity 1.029 (1.005-1.030); Sqamous Epithelial <5 /HPF (None Seen); Urine Bacteria None Seen /HPF (<20); Urine Bilirubin NEGATIVE (Negative); Urine Blood 1+ (Negative); Urine Clarity Turbid (Clear); Urine Color Yellow (Yellow); Urine Culture Reflex Order NOT NEEDED; Urine Glucose NEGATIVE (Negative); Urine Ketones NEGATIVE (Negative); Urine Microscopic Reflex YN ORDER UMIC; Urine Mucus 1+ /HPF (None Seen); Urine Nitrite NEGATIVE (Negative); Urine Protein TRACE (Negative); Urine Urobilinogen Normal (Normal); Urine WBC <5 /HPF (<5)
[2024-08-22 13:02] LABS: Absolute Basophils 0.1 K/uL (0-0.5); Absolute Eosinophils 0.4 K/uL (0-0.5); Absolute Lymphocytes (CBC) 2.8 K/uL (0.7-4.9); Absolute Monocytes 0.5 K/uL (0.1-1.3); Absolute Neutrophil 3.6 K/uL (1.8-8.0); Basophils % 0.9 % (0-1.3); Eosinophils % 5.4 % (0-4.4); Hematocrit 38.1 % (36.0-45.0); Hemoglobin 13.1 g/dL (12.0-15.0); Lymphocytes % 38.5 % (15.3-44.8); MCH 29.3 pg (27.0-35.0); MCHC 34.4 g/dL (32.0-36.0); MCV 85.3 fL (80-100); MPV 7.7 fL (7.6-11.3); Monocytes % 6.6 % (3.3-12.3); Neutrophils % 48.6 % (41.7-73.7); Platelets 377 thou/uL (152-406); RBC Red Blood Cell Count 4.47 M/uL (3.86-4.86); Red Cell Distribution Width 14.7 % (12.1-15.2)
--- NOTE | 2024-08-22 13:14 | RAD REPORT ---
EXAMINATION: US Abdomen Exam Limited CLINICAL HISTORY: [facility] MAIN Y Abd pain;Nausea / vomiting Bed Name: 12 COMPARISON: None. TECHNIQUE: Limited upper abdominal grayscale and color flow sonographic images. FINDINGS: Gallbladder: Contracted, which limits evaluation. No appreciable gallstones, wall thickening, or berry cholecystic fluid, allowing for these limitations. Bile ducts: No intrahepatic or extrahepatic biliary dilatation. Common bile duct measures 3 mm. Liver: Visualized portions of the liver demonstrate normal echogenicity with no suspicious findings. Fluid: No ascites. IMPRESSION: No abnormalities on right upper quadrant ultrasound. Partially contracted gallbladder limits evaluati on.
[2024-08-22 13:16] LABS: ALT/SGPT 23 U/L (13-56); Albumin 3.3 g/dL (3.4-5.0); Albumin/Globulin Ratio 0.9 (1.1-1.8); Alkaline Phosphatase 59 U/L (45-117); Anion Gap 7.8 mEq/L (5.0-15.0); BUN Blood Urea Nitrogen 11 mg/dL (7-18); Bicarbonate 28 mEq/L (21-32); Bilirubin Total 0.4 mg/dL (0.2-1.0); Globulin 3.6 g/dL (2.3-3.5); Glomerular Filtration Rate 101 ml/min (=/>90); Glucose Level 88 mg/dL (74-106); Lipase 38 U/L (13-75); Potassium 3.8 mEq/L (3.5-5.1); Protein, Total 6.9 g/dL (6.4-8.2); Sodium Level 140 mEq/L (136-145)
[2024-08-22 13:19] LABS: AST/SGOT < 10 U/L (15-37)
[2024-08-22] MEDS ORDERED: MORPHINE 4 MG/ML SYR ONE ×2 (13:22→14:52)
--- NOTE | 2024-08-22 14:17 | RAD REPORT ---
EXAMINATION: CT Abdomen Pelvis Wo Contrast CLINICAL INDICATION: Female, 28 years old. ABD PAIN TECHNIQUE: CT abdomen and pelvis was performed, without IV contrast, as per department protocol. Axia l, sagittal and coronal reconstructions were obtained. One or more of the following dose reduction techniques were used: Automated exposure control, adjustment of the mA and kV according to the patien t size, and iterative reconstruction. Unless otherwise specified, incidental findings do not require dedicated imaging follow-up. COMPARISON: 07/23/2022 CT abdomen and pelvis, 08/13/2023 CT chest FINDINGS: The lack of intravenous contrast limits the sensitivity of this exam for evaluation of solid visceral organs, vascular structures, and retroperitoneum. LOWER CHEST: The visualized lung bases are clear. Partially visualized calcified lymph nodes in the p osterior mediastinum, stable. LIVER: Normal in size and contour. No focal lesion. BILIARY SYSTEM: No suspicious abnormalities. SPLEEN: Normal size. No focal lesion. PANCREAS: No mass, ductal dilation, or berry-pancreatic fluid. ADRENALS: Normal; no mass. KIDNEYS AND URETERS: Normal size and contour. No hydronephrosis. URINARY BLADDER: Decompressed limiting evaluation. GASTROINTESTINAL TRACT: No evidence of bowel obstruction, significant free fluid, free air or abscess . APPENDIX: Normal appendix. LYMPH NODES: No lymphadenopathy. MUSCULOSKELETAL: No acute or suspicious osseous abnormality. ADDITIONAL FINDINGS: Diastasis recti. Right adnexal 3.2 cm cystic lesion, could be physiologic. IMPRESSION: No acute or concerning abnormalities in the abdomen or pelvis, with evaluation limited by lack of IV contrast. Right adnexal 3.2 cm cyst, probably physiologic.
--- NOTE | 2024-08-22 14:26 | ER ---
Nurse's Notes [facility] Name: Carla Duncan Age: 28 yrs Sex: Female : 1995 Arrival Date: 08/22/2024 Time: 12:02 Bed 12 Private MD: Diagnosis: Upper abdominal pain, unspecified Presentation: 08/22 12:03 Chief complaint: EMS states: Abdominal pain with N/V since 8 AM. Chief complaint: EMS ll1 states: fentanyl 50 mcg and zofran 4mg IV en route. 20 L AC. Coronavirus screen: Client denies travel out of the [place] in the last 14 days. At this time, the client does not indicate any symptoms associated with coronavirus-19. Ebola Screen: Patient denies travel to an Ebola-affected area in the 21 days before illness onset. Initial Sepsis Screen: Does the patient meet any 2 criteria? No. Patient's initial sepsis screen is negative. Does the patient have a suspected source of infection? No. Patient's initial sepsis screen is negative. Risk Assessment: Do you want to hurt yourself or someone else? Patient reports no desire to harm self or others. Onset of symptoms was August 22, 2024. 12:03 Method Of Arrival: EMS ll1 12:03 Acuity: VENKATESH 3 ll1 Triage Assessment: 12:05 General: Appears uncomfortable, Behavior is calm, cooperative, appropriate for age. ll1 Pain: Complains of pain in abdomen. GI: Reports lower abdominal pain, upper abdominal pain, cramping, nausea, vomiting. 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 - Infectious Disease History:: Denies. - Social history:: Smoking status: Patient denies any tobacco usage or history of. - Family history:: not pertinent. - Hospitalizations: : No recent hospitalization is reported. Screenin:58 [facility] ED Fall Risk Assessment (Adult) History of falling in the last 3 months, ll1 including since admission No falls in past 3 months (0 pts) Confusion or Disorientation No (0 pts) Intoxicated or Sedated No (0 pts) Impaired Gait No (0 pts) Mobility Assist Device Used No (0 pt) Altered Elimination No (0 pt) Score/Fall Risk Level 0 - 2 = Low Risk Maintained a safe environment, Hourly rounding (assess needs \T\ fall precautionary measures) done. Abuse screen: Denies threats or abuse. Nutritional screening: No deficits noted. Tuberculosis screening: No symptoms or risk factors identified. Assessment: 14:58 Reassessment: No changes from previously documented assessment. Patient and/or family ll1 updated on plan of care and expected duration. Pain level reassessed. Patient is alert, oriented x 3, equal unlabored respirations, skin warm/dry/pink. Vital Signs: 12:03 BP 109 / 64; Pulse 72; Resp 17; Temp 97.7; Pulse Ox 98% ; ll1 14:58 BP 115 / 61; Pulse 71; Resp 17; Pulse Ox 97% ; Pain 7/10; ll1 14:58 Pain Scale: Adult ll1 ED Course: 12:02 Patient arrived in ED. bd 12:03 Hal Watters MD is Attending Physician. rn 12:04 Triage completed. ll1 12:05 Arm band placed on. ll1 12:16 Parrish Ferrera, RN is Primary Nurse. bp 12:42 US Abdomen Limited In Process Unspecified. EDMS 13:14 Abdomen In Process Unspecified. EDMS 14:59 Patient has correct armband on for positive identification. Provided Education on: ll1 return to ED for worsening symptoms. 14:59 No provider procedures requiring assistance completed. Patient did not have IV access ll1 during this emergency room visit. Administered Medications: 12:50 Drug: Famotidine IVP 20 mg IVP once; dilute with 10 mL 0.9% NaCl; give over 2 minutes bp Route: IVP; Site: left antecubital; 13:19 Follow up: Response: No adverse reaction bp 12:50 Drug: Ondansetron IVP 4 mg IVP once; over 2 minutes Route: IVP; Site: left antecubital; bp 13:19 Follow up: Response: No adverse reaction bp 13:25 Drug: morphine IVP or IV 4 mg IVP once over 4 mins Route: IVP; Infused Over: 4 mins; bp Site: left antecubital; 14:58 Follow up: Response: No adverse reaction; Pain is decreased; RASS: Alert and Calm (0) 1 14:57 Drug: morphine IVP or IV 4 mg IVP once over 4 mins {Note: pain 8/10 RASS 0.} Route: ll1 IVP; Infused Over: 4 mins; Site: left antecubital; 15:00 Follow up: Response: No adverse reaction; Pain is decreased; RASS: Alert and Calm (0) 1 Medication: 14:59 VIS not applicable for this client. ll1 Outcome: 14:25 Discharge ordered by . rn 14:59 Discharged to home ambulatory, 1 14:59 Condition: stable 14:59 Discharge instructions given to patient, Instructed on discharge instructions, follow up and referral plans. medication usage, Demonstrated understanding of instructions, follow-up care, medications, Prescriptions given X 1, 15:00 Patient left the ED. 1 Signatures: Dispatcher [employer] EDMS Gi Cameron Roman, MD MD rn Peltier, Brian, RN RN bp Lewis, Lynsay, RN RN 1
--- NOTE | 2024-08-22 14:26 | EDPHYS ---
Physician Documentation [facility] Name: Carla Duncan Age: 28 yrs Sex: Female : 1995 Arrival Date: 08/22/2024 Time: 12:02 Bed 12 Private MD: ED Physician Hal Watters HPI: 08/22 12:21 This 28 yrs old Female presents to ER via EMS with complaints of Abdominal rn Pain. 12:21 The patient presents with abdominal pain in the epigastric area, in the left upper rn quadrant. 12:21 Onset: The symptoms/episode began/occurred this morning. Associated signs and symptoms: rn Pertinent positives: nausea and vomiting, Pertinent negatives: blood in stools, fever. Modifying factors: The symptoms are alleviated by nothing, the symptoms are aggravated by touching the area. Severity of pain: At its worst the pain was mild in the emergency department the pain is unchanged. The patient has experienced a previous episode. Patient reports upper abdominal pain, and left upper quadrant abdominal pain that began this morning. Reports similar to when was diagnosed with cholestasis of but delivery was 1 year ago and had has not had issues. Reports associated with nausea and vomiting. No fever. No blood in stool.. 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 - Infectious Disease History:: Denies. - Social history:: Smoking status: Patient denies any tobacco usage or history of. - Family history:: not pertinent. - Hospitalizations: : No recent hospitalization is reported. ROS: 12:21 Constitutional: Negative for fever, chills, and weight loss, Cardiovascular: Negative rn for chest pain, palpitations, and edema, Respiratory: Negative for shortness of breath, cough, wheezing, and pleuritic chest pain, Abdomen/GI: Positive for abdominal pain with nausea and vomiting MS/Extremity: Negative for injury and deformity, Skin: Negative for injury, rash, and discoloration, Neuro: Negative for headache, weakness, numbness, tingling, and seizure, Exam: 12:21 Constitutional: This is a well developed, well nourished patient who is awake, alert, rn and in no acute distress. Cardiovascular: Regular rate and rhythm. No pulse deficits. Respiratory: No increased work of breathing, no retractions or nasal flaring. Abdomen/GI: Soft, mild epigastric and left upper quadrant tenderness. Negative Sutton. No right upper quadrant tenderness Vital Signs: 12:03 BP 109 / 64; Pulse 72; Resp 17; Temp 97.7; Pulse Ox 98% ; ll1 14:58 BP 115 / 61; Pulse 71; Resp 17; Pulse Ox 97% ; Pain 7/10; ll1 14:58 Pain Scale: Adult ll1 MDM: 12:03 Medical Screening Exam initiated rn 14:24 Differential diagnosis: cholecystitis, Cholelithiasis, diverticulitis, gastritis, rn gastroesophageal reflux disease, non-specific abd pain, pancreatitis, Peptic Ulcer Disease, Perf. Duodenal Ulcer, Perf. Gastric Ulcer. Data reviewed: vital signs, nurses notes, lab test result(s), radiologic studies, CT scan, ultrasound, and as a result, I will discharge patient. Counseling: I had a detailed discussion with the patient and/or guardian regarding the historical points, exam findings, and any diagnostic results supporting the discharge/admit diagnosis, lab results, radiology results, the need for outpatient follow up, to return to the emergency department if symptoms worsen or persist or if there are any questions or concerns that arise at home. Response to treatment: the patient's symptoms have markedly improved after treatment, and as a result, I will discharge patient. Special discussion: Based on the patient's Hx, exam, and Dx evaluation, there is no indication for emergent surgery or inpatient Tx. It is understood by the patient/guardian that if the Sx's persist or worsen they need to return immediately for re-evaluation. I discussed with the patient/guardian in detail that at this point there is no indication for admission to the hospital. It is understood, however, that if the symptoms persist or worsen the patient needs to return immediately for re-evaluation. ED course: No acute findings and workup including CT abdomen pelvis and ultrasound. No lab abnormalities to suggest acute abdomen or need for surgery or admission to the hospital. Will discharge home with instructions to follow-up with GI for HIDA scan and further workup.. 08/22 12:04 Order name: CBC with Diff; Complete Time: 13:15 rn 08/22 12:04 Order name: CMP; Complete Time: 13:25 rn 08/22 12:04 Order name: Lipase; Complete Time: 13:25 rn 08/22 12:04 Order name: Test, Urine; Complete Time: 13:15 rn 08/22 12:04 Order name: Urinalysis w/ reflexes; Complete Time: 13:15 rn 08/22 12:04 Order name: US Abdomen Limited; Complete Time: 13:15 rn 08/22 13:14 Order name: Abdomen ; Complete Time: 14:20 EDMS 08/22 12:04 Order name: IV Saline Lock; Complete Time: 12:49 rn 08/22 12:04 Order name: Labs collected and sent; Complete Time: 12:49 rn Administered Medications: 12:50 Drug: Famotidine IVP 20 mg IVP once; dilute with 10 mL 0.9% NaCl; give over 2 minutes bp Route: IVP; Site: left antecubital; 13:19 Follow up: Response: No adverse reaction bp 12:50 Drug: Ondansetron IVP 4 mg IVP once; over 2 minutes Route: IVP; Site: left antecubital; bp 13:19 Follow up: Response: No adverse reaction bp 13:25 Drug: morphine IVP or IV 4 mg IVP once over 4 mins Route: IVP; Infused Over: 4 mins; bp Site: left antecubital; 14:58 Follow up: Response: No adverse reaction; Pain is decreased; RASS: Alert and Calm (0) ll1 14:57 Drug: morphine IVP or IV 4 mg IVP once over 4 mins {Note: pain 8/10 RASS 0.} Route: ll1 IVP; Infused Over: 4 mins; Site: left antecubital; 15:00 Follow up: Response: No adverse reaction; Pain is decreased; RASS: Alert and Calm (0) ll1 Disposition Summary: 08/22/24 14:25 Discharge Ordered Notes: Location: Home rn Problem: new rn Symptoms: have improved rn Condition: Stable rn Diagnosis - Upper abdominal pain, unspecified rn Followup: rn - With: Private Physician - When: As needed - Reason: Recheck today's complaints, Re-evaluation by your physician Discharge Instructions: - Discharge Summary Sheet rn - Abdominal Pain, Adult rn - Pain Without a Known Cause rn Forms: - Medication Reconciliation Form rn - Antibiotic recording studio internship - Prescription Opioid Use rn - Patient Portal Instructions rn - Leadership Thank You Letter rn Prescriptions: - ondansetron 4 mg Oral Tablet,disintegrating - take 1 tablet ORAL route every 8 hours As needed; 12 tablet; Refills: 0, rn Product Selection Permitted Signatures: Dispatcher [employer] EDMS Hal Watters MD MD rn Peltier, Brian, RN RN bp Lewis, Lynsay, RN RN ll1 Corrections: (The following items were deleted from the chart) 12:04 12:04 CBC+H.LAB.BRZ ordered. EDMS EDMS 12:04 12:04 COMPREHENSIVE METABOLIC PANEL+C.LAB.BRZ ordered. EDMS EDMS 12:04 12:04 LIPASE+C.LAB.BRZ ordered. EDMS EDMS 12:04 12:04 Test, Urine+UC.LAB.BRZ ordered. EDMS EDMS 12:04 12:04 Urinalysis+U.LAB.BRZ ordered. EDMS EDMS 12:04 12:04 Abdomen Pelvis W Con+CT.RAD.BRZ ordered. EDMS EDMS 12:05 12:05 Abdomen Limited+US.RAD.BRZ ordered. EDMS EDMS
[2024-08-22 15:05] VITALS: TEMP 97.7
[2024-08-22 15:06] VITALS: BP 115/61; O2SAT 97
== END 2024-08-22 15:00 | disposition home or self-care (01) ==
LOC: ER 12:02
DX: R10.12 Left upper quadrant pain (principal); R10.13 Epigastric pain
CPT/HCPCS: 85025; 81001; 36415; 81025; 83690; 80053; 74176; 76705; 96375; 96374; 99284; J2405

== ENCOUNTER 2024-09-17 17:39 | Emergency (ER) | payer OTHER ==
[2024-09-17] MEDS ORDERED: KETOROLAC 30 MG/ML INJ ONE (18:34)
[2024-09-17 19:29] LABS: Influenza A Ag Negative; Influenza B Ag Negative; SARS-CoV-2 Antigen Rapid Res Negative (Negative)
--- NOTE | 2024-09-17 19:40 | EDPHYS ---
Physician Documentation [facility] Name: Carla Duncna Age: 29 yrs Sex: Female : 1995 Arrival Date: 09/17/2024 Time: 17:39 Bed 19 Private MD: ED Physician Shiloh Eduardo HPI: 09/17 17:59 This 29 yrs old Female presents to ER via Ambulatory with complaints of Flu kb Symptoms. 17:59 Patient is a 29-year-old female who presents for fever, cough, congestion, headache kb that started 1 week ago. Denies nausea, vomiting, diarrhea. Daughter has similar symptoms that started 2 days ago so she is being seen since she brought her daughter in.. 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 - Infectious Disease History:: Denies. - Social history:: Smoking status: Reported history of juuling and/or vaping. ROS: 17:59 Constitutional: As per HPI kb Exam: 17:59 Constitutional: This is a well developed, well nourished patient who is awake, alert, kb and in no acute distress. Head/Face: Normocephalic, atraumatic. ENT: Moist Mucous membranes Cardiovascular: Regular rate Respiratory: Respirations even and unlabored. No increased work of breathing. Talking in full sentences Abdomen/GI: Soft, non-tender. No distention Skin: Warm, dry with normal turgor. Normal color. MS/ Extremity: Pulses equal, no cyanosis. Neurovascular intact. Full, normal range of motion. Neuro: Awake and alert, GCS 15, oriented to person, place, time, and situation. Vital Signs: 18:00 BP 115 / 83; Pulse 115; Resp 18; Temp 98.3(O); Pulse Ox 100% on R/A; Weight 84.82 kg; ss Height 5 ft. 2 in. ; Pain 10/10; 19:43 BP 118 / 80; Pulse 98; Resp 20; Temp 98.6; Pulse Ox 100% on R/A; kj2 18:00 Body Mass Index 34.20 (84.82 kg, 157.48 cm) ss 18:00 Pain Scale: Adult ss MDM: 17:45 Medical Screening Exam initiated kb 18:00 Data reviewed: vital signs, nurses notes. kb 19:39 Differential diagnosis: flu, covid, uri, pneumonia. Counseling: I had a detailed kb discussion with the patient and/or guardian regarding the historical points, exam findings, and any diagnostic results supporting the discharge/admit diagnosis, lab results, the need for outpatient follow up, a family practitioner, to return to the emergency department if symptoms worsen or persist or if there are any questions or concerns that arise at home. 09/17 17:58 Order name: COVID-19 Ag + Flu A+B Ag; Complete Time: 19:31 kb 09/17 17:58 Order name: Group A Streptococcus Rapid; Complete Time: 19:14 kb 09/17 19:16 Order name: Throat Culture EDMS Administered Medications: 18:56 Drug: Ketorolac IM 30 mg IM once Route: IM; Site: right deltoid; kj2 19:44 Follow up: Response: No adverse reaction kj2 Disposition Summary: 09/17/24 19:39 Discharge Ordered Notes: Location: Home kb Condition: Stable kb Diagnosis - Acute upper respiratory infection, unspecified kb Followup: kb - With: Emergency Department - When: As needed - Reason: Worsening of condition Followup: kb - With: Private Physician - When: 2 - 3 days - Reason: Recheck today's complaints, Continuance of care, Re-evaluation by your physician Discharge Instructions: - Discharge Summary Sheet kb - Upper Respiratory Infection, Adult, [id number] kb - Viral Respiratory Infection, [id number] kb Forms: - Medication Reconciliation Form kb - Antibiotic Education kb - Prescription Opioid Use kb - Patient Portal Instructions kb - Leadership Thank You Letter kb Prescriptions: - Tessalon Perles 100 mg Oral Capsule - take 1 capsule ORAL route every 8 hours As needed; 15 capsule; Refills: 0, kb Product Selection Permitted Signatures: Dispatcher [employer] EDFrancie Edouard FNP-C FNP-Ckb Blanchard, Shelby, RN RN ss Jodi Trejo RN RN kj2 Corrections: (The following items were deleted from the chart) 17:58 17:56 PMHx: None; ss ss
--- NOTE | 2024-09-17 19:40 | ER ---
Nurse's Notes [facility] Name: Carla Duncan Age: 29 yrs Sex: Female : 1995 Arrival Date: 09/17/2024 Time: 17:39 Bed 19 Private MD: Diagnosis: Acute upper respiratory infection, unspecified Presentation: 09/17 17:55 Chief complaint: Parent and/or Guardian states: fever, cough and congestion that began ss 1 week ago. Coronavirus screen: Client denies travel out of the [place] in the last 14 days. Ebola Screen: Patient denies exposure to infectious person. Patient denies travel to an Ebola-affected area in the 21 days before illness onset. Initial Sepsis Screen: Does the patient meet any 2 criteria? No. Patient's initial sepsis screen is negative. Does the patient have a suspected source of infection? No. Patient's initial sepsis screen is negative. Risk Assessment: Do you want to hurt yourself or someone else? Patient reports no desire to harm self or others. Onset of symptoms was September 10, 2024. 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 - Infectious Disease History:: Denies. - Social history:: Smoking status: Reported history of juuling and/or vaping. Screenin:15 [facility] ED Fall Risk Assessment (Adult) History of falling in the last 3 months, kj2 including since admission No falls in past 3 months (0 pts) Confusion or Disorientation No (0 pts) Intoxicated or Sedated No (0 pts) Impaired Gait No (0 pts) Mobility Assist Device Used No (0 pt) Altered Elimination No (0 pt) Score/Fall Risk Level 0 - 2 = Low Risk Maintained a safe environment, Hourly rounding (assess needs \T\ fall precautionary measures) done. Abuse screen: Denies threats or abuse. Denies injuries from another. Nutritional screening: No deficits noted. Tuberculosis screening: No symptoms or risk factors identified. Assessment: 18:15 General: Appears in no apparent distress. Behavior is calm. Pain: Complains of pain in kj2 headache, bodyache Pain currently is 6 out of 10 on a pain scale. Neuro: Level of Consciousness is awake, alert, obeys commands. Neuro: Level of Consciousness is awake, alert, obeys commands. 19:38 Reassessment: Patient appears in no apparent distress at this time. Patient and/or kj2 family updated on plan of care and expected duration. Pain level reassessed. Patient is alert, oriented x 3, equal unlabored respirations, skin warm/dry/pink. Vital Signs: 18:00 BP 115 / 83; Pulse 115; Resp 18; Temp 98.3(O); Pulse Ox 100% on R/A; Weight 84.82 kg; ss Height 5 ft. 2 in. ; Pain 10/10; 19:43 BP 118 / 80; Pulse 98; Resp 20; Temp 98.6; Pulse Ox 100% on R/A; kj2 18:00 Body Mass Index 34.20 (84.82 kg, 157.48 cm) ss 18:00 Pain Scale: Adult ss ED Course: 17:43 Patient arrived in ED. mr 17:44 [facility]C [facility] kb 17:44 Shiloh Eduardo MD is Attending Physician. kb 17:56 Triage completed. ss 17:56 Arm band placed on right wrist. ss 18:15 Patient has correct armband on for positive identification. Provided Education on: call kj2 light. 18:29 Jodi Trejo, RN is Primary Nurse. kj2 18:56 Group A Streptococcus Rapid Sent. kj2 18:56 COVID-19 Ag + Flu A+B Ag Sent. kj2 19:39 No provider procedures requiring assistance completed. kj2 19:44 Patient did not have IV access during this emergency room visit. kj2 Administered Medications: 18:56 Drug: Ketorolac IM 30 mg IM once Route: IM; Site: right deltoid; kj2 19:44 Follow up: Response: No adverse reaction kj2 Medication: 19:44 VIS not applicable for this client. kj2 Outcome: 19:39 Discharge ordered by . kb 19:44 Discharged to home ambulatory, kj2 19:44 Condition: stable 19:44 Discharge instructions given to patient, Instructed on discharge instructions, follow up and referral plans. Demonstrated understanding of instructions, follow-up care, 20:30 Patient left the ED. kj2 Signatures: Francie Maynard FNP-C FNP-Kathryn Vásquez, Reg Reg mr Jenny Robert, RN RN ss Jodi Trejo RN RN kj2 Corrections: (The following items were deleted from the chart) 17:58 17:56 PMHx: None; [facility]
[2024-09-17 20:38] VITALS: O2SAT 100
[2024-09-17 20:39] VITALS: BP 118/80; TEMP 98.6
== END 2024-09-17 20:30 | disposition home or self-care (01) ==
LOC: ER 17:39
DX: J06.9 Acute upper respiratory infection, unspecified (principal); Z11.52 Encounter for screening for COVID-19
CPT/HCPCS: 36415; 87070; 87428; 96372; 99284

== ENCOUNTER 2024-10-28 23:00 | Emergency (ER) | payer OTHER, SELFPAY ==
[2024-10-28] MEDS ORDERED: ONDANSETRON 4 MG (ODT) TAB ONE (23:16)
[2024-10-28] MEDS ORDERED: DICYCLOMINE HCL 20 MG/2 ML AMP IM ONE (23:56)
[2024-10-29] MEDS ORDERED: NA CHLORIDE 0.9% 1,000 ML ONE (00:48)
[2024-10-29] MEDS ORDERED: METOCLOPRAMIDE 10 MG/2mL INJ ONE (01:27)
[2024-10-29] MEDS ORDERED: DIPHENHYDRAMINE 50 MG/ML VIAL ONE (01:27)
[2024-10-29] MEDS ORDERED: droPERidol 5 MG/2 ML VIAL ONE (01:27)
[2024-10-29 01:57] LABS: Albumin/Globulin Ratio 0.9 (1.1-1.8)
[2024-10-29 01:58] LABS: Hematocrit 42.1 % (36.0-45.0); Hemoglobin 14.4 g/dL (12.0-15.0); MCH 29.2 pg (27.0-35.0); MCHC 34.3 g/dL (32.0-36.0); MCV 85.2 fL (80-100); MPV 8.4 fL (7.6-11.3); Platelets 455 thou/uL (152-406); RBC Red Blood Cell Count 4.94 M/uL (3.86-4.86)
[2024-10-29 01:59] LABS: Absolute Eosinophils 0.3 K/uL (0-0.5); Absolute Lymphocytes (CBC) 1.7 K/uL (0.7-4.9); Absolute Monocytes 0.4 K/uL (0.1-1.3); Absolute Neutrophil 5.1 K/uL (1.8-8.0); Basophils % 0.4 % (0-1.3); Eosinophils % 4.1 % (0-4.4); Neutrophils % 67.5 % (41.7-73.7)
--- NOTE | 2024-10-29 02:30 | RAD REPORT ---
EXAM DESCRIPTION: Abdomen Exam Limited RadLex: US ABDOMEN LIMITED CLINICAL HISTORY: 29 years Female, ABD PAIN COMPARISON: Report from prior ultrasound dated 08/22/2024. No images available at time of dictation fo r direct comparison. FINDINGS: Limited grayscale and color Doppler images were obtained of the abdomen in the region of the gallblad sandhya. Gallbladder is normal in size. No shadowing gallstones. Gallbladder wall measures 0.2 cm in thickness, within normal limits. No pericholecystic fluid collection. Common duct is not dilated, floresita suring 0.3 cm. IMPRESSION: No sonographic abnormality of the gallbladder. Electronically signed by: Elen Glaser MD 10/29/2024 02:22 AM CDT RP Due to temporary technical issues with the PACS/Power scribe reporting system, reports are being sign ed by the in-house radiologist without review as a courtesy to ensure prompt reporting the interpreting rad iologist is fully responsible for the content of the report. Transcribed Date/Time: 10/29/2024 2:30 AM
--- NOTE | 2024-10-29 02:47 | EDPHYS ---
Physician Documentation [facility] Name: Carla Duncan Age: 29 yrs Sex: Female : 1995 Arrival Date: 10/28/2024 Time: 23:00 Bed 7 Private MD: ED Physician Roosevelt Brown HPI: 10/28 23:25 This 29 yrs old Female presents to ER via Ambulatory with complaints of cp Abdominal Pain, Nausea/Vomiting/Diarrhea. 23:25 The patient presents with abdominal pain nausea and vomiting and diarrhea. cp 23:25 Onset: The symptoms/episode began/occurred yesterday. cp 23:25 Associated signs and symptoms: Pertinent negatives: blood in stools, constipation, cp headache, vomiting blood. Severity of pain: in the emergency department the pain is unchanged despite home interventions. 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 - Infectious Disease History:: Denies. - Social history:: Smoking status: Reported history of juuling and/or vaping. Patient/guardian denies using alcohol, street drugs. ROS: 23:30 Constitutional: Negative for body aches, chills, fever, cp 23:30 Eyes: Negative for injury, pain, redness, and discharge, cp 23:30 ENT: Negative for drainage from ear(s), ear pain, sore throat, difficulty swallowing, difficulty handling secretions, 23:30 Cardiovascular: Negative for chest pain, palpitations, 23:30 Respiratory: Negative for cough, shortness of breath, wheezing, 23:30 Abdomen/GI: Positive for abdominal pain, nausea and vomiting, diarrhea, Negative for constipation, hematemesis, black/tarry stool, rectal bleeding, 23:30 Neuro: Negative for altered mental status, dizziness, headache, syncope, weakness, 23:30 All other systems are negative, Exam: 23:35 Constitutional: The patient appears in no acute distress, alert, awake, non-toxic, well cp developed, well nourished, obese, 23:35 Head/Face: Normocephalic, atraumatic. cp 23:35 Eyes: Periorbital structures: appear normal, Conjunctiva: normal, no exudate, no injection, Sclera: no appreciated abnormality, Lids and lashes: appear normal, bilaterally, 23:35 ENT: External ear(s): are unremarkable, Nose: is normal, Mouth: Lips: moist, Oral mucosa: moist, Posterior pharynx: Airway: no evidence of obstruction, patent, 23:35 Chest/axilla: Inspection: normal, 23:35 Cardiovascular: Rate: normal, Rhythm: regular, 23:35 Respiratory: the patient does not display signs of respiratory distress, Respirations: normal, no use of accessory muscles, no retractions, labored breathing, is not present, Breath sounds: are clear throughout, no decreased breath sounds, no stridor, no wheezing, 23:35 Abdomen/GI: Inspection: obese Bowel sounds: active, all quadrants, Palpation: soft, in all quadrants, moderate abdominal tenderness, in the epigastric area, right upper quadrant and left upper quadrant, rebound tenderness, is not appreciated, involuntary guarding, is not appreciated, 23:35 Back: CVA tenderness, is absent, 23:35 Neuro: Orientation: to person, place \T\ time. Mentation: is normal, Vital Signs: 23:16 BP 121 / 94; Pulse 97; Resp 18; Temp 97.1; Pulse Ox 100% ; Weight 77.11 kg; Height 5 br2 ft. 2 in. ; Pain 8/10; 04 01:37 BP 113 / 63; Pulse 70; Resp 16; Pulse Ox 98% ; vc1 02:46 BP 104 / 68; Pulse 86; Resp 16; Pulse Ox 97% ; vc1 05 23:16 Body Mass Index 31.09 (77.11 kg, 157.48 cm) br2 10/28 23:16 Pain Scale: Adult br2 MDM: 10/28 23:17 Medical Screening Exam initiated cp 10/29 01:13 ED course: US tech reports US gallbladder negative. cp 04:23 Differential diagnosis: Abdominal pain, electrolyte disturbance, cholelithiasis. Data rt reviewed: vital signs, nurses notes, lab test result(s), radiologic studies. I considered the following discharge prescriptions or medication management in the emergency department Medications were administered in the Emergency Department. See MAR. Test considered but Not performed:. 04:24 Test considered but Not performed: CT: Benign abdominal examination, CT of the abdomen rt is not indicated. Care significantly affected by the following chronic conditions: Asthma. Response to treatment: the patient's symptoms have markedly improved after treatment. 10/29 00:38 Order name: CBC with Diff; Complete Time: 02:27 cp 10/29 00:38 Order name: CMP; Complete Time: 04:24 cp 10/29 00:38 Order name: Lipase; Complete Time: 04:24 cp 10/29 00:38 Order name: US Abdomen Limited cp 10/28 23:53 Order name: PO challenge; Complete Time: 00:02 cp 10/29 00:38 Order name: IV Saline Lock; Complete Time: 01:11 cp 10/29 00:38 Order name: Labs collected and sent; Complete Time: 01:11 cp Administered Medications: 10/28 23:25 Drug: Ondansetron PO 4 mg PO once Route: PO; br2 23:45 Follow up: Response: No adverse reaction; Nausea unchanged vc1 10/29 00:02 Drug: Dicyclomine IM 20 mg IM once Route: IM; Site: left deltoid; ha1 00:30 Follow up: Response: No adverse reaction; Pain is unchanged, physician notified vc1 00:37 CANCELLED (Physician Discretion): GI Cocktail without - (maaloxsuspension 30 cp ml, lidocaine mucous membrane liquid 2 % 15 ml) PO once 01:11 Drug: NS 0.9% IV 1000 ml IV at 1 bolus Per protocol; to be given as a bolus over 60 ha1 minutes Route: IV; Rate: 1 bolus; Site: left antecubital; 02:11 Follow up: IV Status: Completed infusion; IV Intake: 1000ml vc1 01:43 Drug: metoCLOPramide IVP 10 mg IVP once; over 1 to 2 minutes Route: IVP; Site: left ha1 antecubital; 02:47 Follow up: Response: No adverse reaction; Marked relief of symptoms vc1 01:45 Drug: diphenhydrAMINE IVP 25 mg IVP once Route: IVP; Site: left antecubital; ha1 02:47 Follow up: Response: No adverse reaction; Marked relief of symptoms vc1 01:47 Drug: Droperidol IVP 1.25 mg IVP once Route: IVP; Site: left antecubital; ha1 02:47 Follow up: Response: No adverse reaction; Marked relief of symptoms vc1 Disposition: 04:23 Co-signature as Attending Physician, Roosevelt Brown MD I reviewed the patient's care rt provided by the Advanced Practice Provider and agree with the diagnosis and treatment plan. 04:24 I agree with the assessment and plan of care. I reviewed the patient's care provided by rt Advanced Practice Provider \T\ agree w/ the diagnosis \T\ care plan. I personally saw the pt \T\ performed a substantive portion of the visit, incldng all aspects of the (History/Exam/Medical Decision Making). 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 Disposition Summary: 10/29/24 02:47 Discharge Ordered Notes: Location: Home rt Problem: new rt Symptoms: have improved rt Condition: Stable rt Diagnosis - Abdominal pain, unspecified rt Followup: rt - With: Private Physician - When: 2 - 3 days - Reason: Discharge Instructions: - Discharge Summary Sheet rt - Abdominal Pain, Adult rt Forms: - Medication Reconciliation Form rt - Antibiotic Education rt - Prescription Opioid Use rt - Patient Portal Instructions rt - Leadership Thank You Letter rt Signatures: Dispatcher [employer] EDMS Michael Dowd PA PA cp Judy Aguirre RN RN ha1 Roosevelt Brown MD MD rt Amanda Pearce RN RN br2 Mindy Allen RN vc1 Corrections: (The following items were deleted from the chart) 00:37 00:36 GI Cocktail without - (Maalox PO 30 ml, Lidocaine Mucous Membrane 2 % 15 cp ml) PO once ordered. cp :10/28 23:00 This 29 yrs old Female presents to ER via Ambulatory with cp complaints of Abdominal Pain, Nausea/Vomiting/Diarrhea. cp 10/29 23:00 The patient presents with abdominal pain nausea and vomiting and diarrhea. cp cp
--- NOTE | 2024-10-29 02:47 | ER ---
Nurse's Notes [facility] Name: Carla Duncan Age: 29 yrs Sex: Female : 1995 Arrival Date: 10/28/2024 Time: 23:00 Bed 7 Private MD: Diagnosis: Abdominal pain, unspecified Presentation: 10/28 23:16 Chief complaint: Patient states: NAUSEA/VOMITING/DIARRHEA. Coronavirus screen: Client br2 denies travel out of the [place] in the last 14 days. Ebola Screen: Patient denies exposure to infectious person. Initial Sepsis Screen: Does the patient meet any 2 criteria? No. Patient's initial sepsis screen is negative. Does the patient have a suspected source of infection? No. Patient's initial sepsis screen is negative. Risk Assessment: Do you want to hurt yourself or someone else? Patient reports no desire to harm self or others. Onset of symptoms. 23:16 Method Of Arrival: Ambulatory br2 23:16 Acuity: VENKATESH 3 br2 Triage Assessment: 23:17 General: Appears uncomfortable, Behavior is calm, cooperative. Pain: Complains of pain br2 in epigastric area, right upper quadrant and left upper quadrant. GI: Reports lower abdominal pain, diarrhea, nausea, vomiting. LUSTERER: 23:17 LMP 10/26/2024, unknown br2 Historical: - Allergies: 23:17 Amoxicillin; br2 23:17 Codeine; br2 23:17 Stadol; br2 23:17 Toradol; br2 - PMHx: 23:17 Anxiety; Asthma; depressive disorder; Migraine; br2 - PSHx: 23:17 section; br2 - Immunization history:: Adult Immunizations up to date. - Infectious Disease History:: Denies. - Social history:: Smoking status: Reported history of juuling and/or vaping. Patient/guardian denies using alcohol, street drugs. Screenin:15 [facility] ED Fall Risk Assessment (Adult) History of falling in the last 3 months, vc1 including since admission No falls in past 3 months (0 pts) Confusion or Disorientation No (0 pts) Intoxicated or Sedated No (0 pts) Impaired Gait No (0 pts) Mobility Assist Device Used No (0 pt) Altered Elimination No (0 pt) Score/Fall Risk Level 0 - 2 = Low Risk Oriented to surroundings, Maintained a safe environment, Educated pt \T\ family on fall prevention, incl call for assistance when getting out of bed, Hourly rounding (assess needs \T\ fall precautionary measures) done. Abuse screen: Denies threats or abuse. Nutritional screening: No deficits noted. Tuberculosis screening: No symptoms or risk factors identified. Assessment: 10/29 01:37 Reassessment: Patient appears in no apparent distress at this time. No changes from vc1 previously documented assessment. Patient and/or family updated on plan of care and expected duration. Pain level reassessed. Patient is alert, oriented x 3, equal unlabored respirations, skin warm/dry/pink. 02:46 Reassessment: Patient appears in no apparent distress at this time. Patient and/or vc1 family updated on plan of care and expected duration. Pain level reassessed. Patient is alert, oriented x 3, equal unlabored respirations, skin warm/dry/pink. Patient states feeling better. Patient states symptoms have improved. Vital Signs: 10/28 23:16 BP 121 / 94; Pulse 97; Resp 18; Temp 97.1; Pulse Ox 100% ; Weight 77.11 kg; Height 5 br2 ft. 2 in. ; Pain 8/10; 10/29 01:37 BP 113 / 63; Pulse 70; Resp 16; Pulse Ox 98% ; vc1 02:46 BP 104 / 68; Pulse 86; Resp 16; Pulse Ox 97% ; vc1 10/28 23:16 Body Mass Index 31.09 (77.11 kg, 157.48 cm) br2 10/28 23:16 Pain Scale: Adult br2 ED Course: 10/28 23:01 Patient arrived in ED. [id number] 23:05 Michael Dowd PA is PHCP. cp 23:05 Roosevelt Brown MD is Attending Physician. cp 23:17 Triage completed. br2 23:17 Arm band placed on. br2 23:17 Patient has correct armband on for positive identification. Bed in low position. Call vc1 light in reach. Provided Education on: Plan of care. Pulse ox on. NIBP on. 23:52 Judy Aguirre, RN is Primary Nurse. ha1 10/29 01:05 US Abdomen Limited In Process Unspecified. EDMS 01:11 CBC with Diff Sent. ha1 01:11 CMP Sent. ha1 01:11 Lipase Sent. ha1 02:49 No provider procedures requiring assistance completed. IV discontinued, intact, vc1 bleeding controlled, No redness/swelling at site. Pressure dressing applied. Administered Medications: 10/28 23:25 Drug: Ondansetron PO 4 mg PO once Route: PO; br2 23:45 Follow up: Response: No adverse reaction; Nausea unchanged vc1 10/29 00:02 Drug: Dicyclomine IM 20 mg IM once Route: IM; Site: left deltoid; ha1 00:30 Follow up: Response: No adverse reaction; Pain is unchanged, physician notified vc1 00:37 CANCELLED (Physician Discretion): GI Cocktail without - (maaloxsuspension 30 cp ml, lidocaine mucous membrane liquid 2 % 15 ml) PO once 01:11 Drug: NS 0.9% IV 1000 ml IV at 1 bolus Per protocol; to be given as a bolus over 60 ha1 minutes Route: IV; Rate: 1 bolus; Site: left antecubital; 02:11 Follow up: IV Status: Completed infusion; IV Intake: 1000ml vc1 01:43 Drug: metoCLOPramide IVP 10 mg IVP once; over 1 to 2 minutes Route: IVP; Site: left ha1 antecubital; 02:47 Follow up: Response: No adverse reaction; Marked relief of symptoms vc1 01:45 Drug: diphenhydrAMINE IVP 25 mg IVP once Route: IVP; Site: left antecubital; ha1 02:47 Follow up: Response: No adverse reaction; Marked relief of symptoms vc1 01:47 Drug: Droperidol IVP 1.25 mg IVP once Route: IVP; Site: left antecubital; ha1 02:47 Follow up: Response: No adverse reaction; Marked relief of symptoms vc1 Medication: 02:50 VIS not applicable for this client. vc1 Intake: 02:11 IV: 1000ml; Total: 1000ml. vc1 Outcome: 02:47 Discharge ordered by . rt 02:54 Discharged to home ambulatory, with family, vc1 02:54 Condition: stable 02:54 Discharge instructions given to patient, Instructed on discharge instructions, follow up and referral plans. Demonstrated understanding of instructions, follow-up care, 02:54 Patient left the ED. vc1 Signatures: Dispatcher [employer] EDMS Michael Dowd PA PA cp Jeffries, Jennifer [id number] Mindy Allen RN RN vc1 Judy Aguirre RN RN ha1 Roosevelt Brown MD MD rt Riddle, Belinda RN RN br2
[2024-10-29 03:14] LABS: Albumin 3.5 g/dL (3.4-5.0); Bilirubin Total 0.3 mg/dL (0.2-1.0); Protein, Total 7.5 g/dL (6.4-8.2)
[2024-10-29 05:45] VITALS: TEMP 97.1
[2024-10-29 05:48] VITALS: BP 104/68; O2SAT 97
== END 2024-10-29 02:54 | disposition home or self-care (01) ==
LOC: ER 23:00
DX: R10.13 Epigastric pain (principal); R11.2 Nausea with vomiting, unspecified
CPT/HCPCS: 36415; 76705; 80053; 83690; 85025; 96361; 96372; 96374; 96375; 99284; J0500; J1200; J1790; J2765; J7030; Q0162

== ENCOUNTER 2024-11-09 01:41 | Emergency (ER) | payer SELFPAY ==
[2024-11-09] MEDS ORDERED: IBUPROFEN 400 MG TAB ONE (02:09)
[2024-11-09 02:15] LABS: Calcium Oxalate Crystals- Ur Moderate /HPF (None Seen); Urine Bacteria None Seen /HPF (<20); Urine Bilirubin NEGATIVE (Negative); Urine Blood 3+ (OVER) (Negative); Urine Clarity Extremely Turbid (Clear); Urine Color Dark-Brown (Yellow); Urine Culture Reflex Order REFLEXED; Urine Glucose NEGATIVE (Negative); Urine Ketones 2+ (Negative); Urine Microscopic Reflex YN ORDER UMIC; Urine Mucus 4+ /HPF (None Seen); Urine Nitrite NEGATIVE (Negative); Urine Protein 2+ (Negative); Urine RBC >50 /HPF (None Seen); Urine Urobilinogen Normal (Normal); Urine WBC >50 /HPF (<5)
[2024-11-09] MEDS ORDERED: ONDANSETRON 4 MG/2 ML VIAL ONE (02:51)
[2024-11-09] MEDS ORDERED: MORPHINE 4 MG/ML SYR ONE (02:52)
[2024-11-09] MEDS ORDERED: Ciprofloxacin 200mg IV 200 MG/100 ML IV.SOLN. IV ONE (02:52)
[2024-11-09 03:16] LABS: ALT/SGPT 26 U/L (13-56); AST/SGOT < 10 U/L (15-37); Albumin/Globulin Ratio 0.8 (1.1-1.8); Alkaline Phosphatase 58 U/L (45-117); Anion Gap 7.1 mEq/L (5.0-15.0); BUN Blood Urea Nitrogen 5 mg/dL (7-18); Bicarbonate 29 mEq/L (21-32); Bilirubin Total 0.3 mg/dL (0.2-1.0); Globulin 3.7 g/dL (2.3-3.5); Glomerular Filtration Rate 100 ml/min (=/>90); Glucose Level 106 mg/dL (74-106); Lipase 23 U/L (13-75); Potassium 3.1 mEq/L (3.5-5.1); Protein, Total 6.7 g/dL (6.4-8.2); Sodium Level 140 mEq/L (136-145)
[2024-11-09 03:17] LABS: Absolute Basophils 0.1 K/uL (0-0.5); Absolute Eosinophils 1.1 K/uL (0-0.5); Absolute Lymphocytes (CBC) 2.5 K/uL (0.7-4.9); Absolute Monocytes 0.6 K/uL (0.1-1.3); Basophils % 0.8 % (0-1.3); Eosinophils % 10.4 % (0-4.4); Hematocrit 38.9 % (36.0-45.0); Hemoglobin 13.6 g/dL (12.0-15.0); Lymphocytes % 24.7 % (15.3-44.8); MCHC 35.1 g/dL (32.0-36.0); MCV 82.7 fL (80-100); MPV 7.7 fL (7.6-11.3); Monocytes % 5.5 % (3.3-12.3); Neutrophils % 58.6 % (41.7-73.7); Platelets 470 thou/uL (152-406); Red Cell Distribution Width 14.4 % (12.1-15.2)
--- NOTE | 2024-11-09 04:40 | RAD REPORT ---
EXAM: CT Abdomen and Pelvis Without Intravenous Contrast CLINICAL HISTORY: ABD PAIN TECHNIQUE: Axial computed tomography images of the abdomen and pelvis without intravenous contrast. Sagittal a nd coronal reformatted images were created and reviewed. This CT exam was performed using one or more of the following dose reduction techniques: automated exposure control, adjustment of the mA a nd/or kV according to patient size, and/or use of iterative reconstruction technique. COMPARISON: CT Abdomen Pelvis dated 08/22/2024 FINDINGS: Lung bases: Patchy bibasilar groundglass opacities. ABDOMEN: Liver: Unremarkable. Gallbladder and bile ducts: Unremarkable. No calcified stones. No ductal dilation. Pancreas: Unremarkable. No ductal dilation. Spleen: Unremarkable. No splenomegaly. Adrenals: Unremarkable. No mass. Kidneys and ureters: Partially duplicated right renal collecting system. No calculi. No hydronephro sis. Stomach and bowel: Moderate stool. No bowel obstruction. No appreciable mucosal thickening. PELVIS: Appendix: Normal caliber appendix. No findings to suggest acute appendicitis. Bladder: The urinary bladder is decompressed. No stones. Reproductive: 2.2 cm left ovarian cyst. The uterus and right ovary are unremarkable as visualized. ABDOMEN and PELVIS: Intraperitoneal space: Unremarkable. No free air. No significant fluid collection. Bones/joints: No acute fracture. No dislocation. Soft tissues: Unremarkable. Vasculature: Unremarkable. No abdominal aortic aneurysm. Lymph nodes: Unremarkable. No enlarged lymph nodes. IMPRESSION: 1. No acute inflammatory process identified within the abdomen and pelvis. 2. A 2.2 cm left ovarian cyst. No follow-up imaging is recommended. Reference: JACR 2019;17(2): [id number] 3. Patchy bibasilar groundglass opacities (atelectasis and/or infiltrate). 4. Other findings as above. Electronically signed by: Jay Farrell MD 11/09/2024 03:54 AM CDT Due to temporary technical issues with the PACS/[employer] Quotes reporting system, reports are being sandra d by the in-house radiologist without review as a courtesy to ensure prompt reporting the interpreting radiologist is fully responsible for the content of the report. Transcribed Date/Time: 11/09/2024 4:40 AM
--- NOTE | 2024-11-09 04:59 | ER ---
Nurse's Notes [facility] Name: Carla Duncan Age: 29 yrs Sex: Female : 1995 Arrival Date: 11/09/2024 Time: 01:41 Bed 7 Private MD: Diagnosis: UTI, flank pain Presentation: 11/09 01:45 Chief complaint: EMS states: Pt woke up with urges to urinate and noticed some blood kd3 when she peed. Pt reports being on her period recently. VSS. Pt reports 10 pain, refused droperidol with EMS. PTs states "I do not want droperidol ever again and i do not like Toradol. Please give me something for pain quick". Coronavirus screen: Vaccine status: Patient reports being unvaccinated. Ebola Screen: No symptoms or risks identified at this time. Initial Sepsis Screen: Does the patient meet any 2 criteria? No. Patient's initial sepsis screen is negative. Does the patient have a suspected source of infection? No. Patient's initial sepsis screen is negative. Risk Assessment: Do you want to hurt yourself or someone else? Patient reports no desire to harm self or others. Onset of symptoms was November 09, 2024. 01:45 Method Of Arrival: EMS: [facility] kd3 01:45 Acuity: VENKATESH 3 kd3 Triage Assessment: 01:48 General: Appears in no apparent distress. Behavior is calm, cooperative. Pain: kd3 Complains of pain in suprapubic area. Neuro: Level of Consciousness is awake, alert, obeys commands, Oriented to person, place, time, situation. Respiratory: Airway is patent Trachea midline Respiratory effort is even, unlabored, Respiratory pattern is regular, symmetrical. Historical: - Allergies: 01:48 Toradol; kd3 01:48 Stadol; kd3 01:48 none; kd3 01:48 Codeine; kd3 01:48 Amoxicillin; kd3 - PMHx: 01:48 Migraine; depressive disorder; Asthma; Anxiety; kd3 - PSHx: 01:48 section; kd3 - Immunization history:: Adult Immunizations up to date. - Infectious Disease History:: Denies. - Social history:: Smoking status: Patient denies any tobacco usage or history of. Screenin:58 [facility] ED Fall Risk Assessment (Adult) History of falling in the last 3 months, kd3 including since admission No falls in past 3 months (0 pts) Confusion or Disorientation No (0 pts) Intoxicated or Sedated No (0 pts) Impaired Gait No (0 pts) Mobility Assist Device Used No (0 pt) Altered Elimination No (0 pt) Score/Fall Risk Level 0 - 2 = Low Risk Maintained a safe environment. Abuse screen: Denies threats or abuse. Denies injuries from another. Nutritional screening: No deficits noted. Tuberculosis screening: No symptoms or risk factors identified. Assessment: 01:57 General: Pt is upset about not receiving pain medications. PT is becoming agitated with kd3 nursing staff. . 02:15 General: Pt called this RN to the restroom and states she cannot get up on her own due kd3 to the pain. Pt brought back to her room via wheelchair. Pt administered ibuprofen. . 03:20 Reassessment: Patient and/or family updated on plan of care and expected duration. Pain ha1 level reassessed. Patient is alert, oriented x 3, equal unlabored respirations, skin warm/dry/pink. Patient states feeling better. Patient states symptoms have improved. 04:24 General: Pt seen resting in the stretcher, respirations are even and unlabored, skin is kd3 warm and dry, pt is on continuous monitoring. VSS. . 05:14 Reassessment: Patient and/or family updated on plan of care and expected duration. Pain ha1 level reassessed. Patient is alert, oriented x 3, equal unlabored respirations, skin warm/dry/pink. Patient states feeling better. Patient states symptoms have improved. Vital Signs: 01:45 BP 122 / 74; Pulse 82; Resp 16; Temp 97.7(O); Pulse Ox 100% on R/A; Weight 77.11 kg; kd3 Height 5 ft. 0 in. ; Pain 10/10; 03:04 BP 115 / 73; Pulse 94; Resp 16; Pulse Ox 100% on R/A; kd3 04:26 BP 112 / 66; Pulse 74; Resp 16; Pulse Ox 99% on R/A; kd3 04:35 BP 109 / 70; Pulse 75; Resp 16; Pulse Ox 97% on R/A; kd3 01:45 Body Mass Index 33.20 (77.11 kg, 152.4 cm) kd3 01:45 Pain Scale: Adult kd3 ED Course: 01:45 Patient arrived in ED. kd3 01:46 Shiloh Eduardo MD is Attending Physician. sp3 01:48 Triage completed. kd3 01:48 Arm band placed on right wrist. kd3 01:54 Tania Robert, RN is Primary Nurse. kd3 01:59 Patient has correct armband on for positive identification. kd3 02:06 UA Rfx Curry Cult if indicated Sent. kd3 02:06 Test, Urine Sent. kd3 02:30 Inserted saline lock: 22 gauge in left antecubital area, using aseptic technique. Blood ha1 collected. Flushed with 10 mL NS. 03:04 No provider procedures requiring assistance completed. kd3 03:15 CT Abd/Pelvis - Without Contrast In Process Unspecified. EDMS 05:22 Provided Education on: medication administration . ha1 05:22 IV discontinued, intact, bleeding controlled, No redness/swelling at site. Pressure ha1 dressing applied. Administered Medications: 02:10 Drug: Ibuprofen PO 800 mg PO once Route: PO; ha1 02:35 Follow up: Response: No adverse reaction; Marked relief of symptoms; Pain is decreased ha1 02:56 Drug: Ondansetron IVP 4 mg IVP once; over 2 minutes Route: IVP; Site: left antecubital; ha1 03:30 Follow up: Response: No adverse reaction; Marked relief of symptoms ha1 02:58 Drug: morphine IVP or IV 4 mg IVP once over 4 mins Route: IVP; Infused Over: 4 mins; ha1 Site: left antecubital; 03:20 Follow up: Response: No adverse reaction; Marked relief of symptoms; Pain is decreased; ha1 RASS: Alert and Calm (0) 03:02 Drug: Ciprofloxacin IVPB 400 mg 200 ml IVPB once over 60 mins Volume: 200 ml; Route: ha1 IVPB; Infused Over: 60 mins; Site: left antecubital; 04:00 Follow up: Response: No adverse reaction; IV Status: Completed infusion ha1 Medication: 01:58 VIS not applicable for this client. kd3 Outcome: 04:59 Discharge ordered by . sp3 05:21 Discharged to home ambulatory, ha1 05:21 Condition: stable 05:21 Discharge instructions given to patient, Instructed on discharge instructions, follow up and referral plans. medication usage, Demonstrated understanding of instructions, follow-up care, medications, Prescriptions given X 2, 05:22 Patient left the ED. ha1 Addendum: 11/11/2024 15:02 Addendum: Culture Results: Positive urine culture. No further action required. Bacteria h b sensitive to prescribed antibiotic. Signatures: Dispatcher [employer] EDMS Maria Alejandra Hutton RN RN Shiloh Eduardo MD MD sp3 Tania Robert RN RN kd3 Judy Aguirre RN RN ha1
--- NOTE | 2024-11-09 04:59 | EDPHYS ---
Physician Documentation [facility] Name: Carla Duncan Age: 29 yrs Sex: Female : 1995 Arrival Date: 11/09/2024 Time: 01:41 Bed 7 Private MD: ED Physician Shiloh Eduardo HPI: 11/09 02:03 This 29 yrs old Female presents to ER via EMS with complaints of Urinary sp3 Problem. 02:03 29-year-old female with history of depression, asthma, anxiety, migraines presents with sp3 chief complaint dysuria for the last 2 days. She denies any fever, flank pain, abdominal pain, [employer] symptoms, or any other signs or symptoms on ROS at this time. LMP 1 week ago.. Historical: - Allergies: 01:48 Toradol; kd3 01:48 Stadol; kd3 01:48 none; kd3 01:48 Codeine; kd3 01:48 Amoxicillin; kd3 - PMHx: 01:48 Migraine; depressive disorder; Asthma; Anxiety; kd3 - PSHx: 01:48 section; kd3 - Immunization history:: Adult Immunizations up to date. - Infectious Disease History:: Denies. - Social history:: Smoking status: Patient denies any tobacco usage or history of. ROS: 02:03 Constitutional: Negative for fever, chills, and weight loss, Eyes: Negative for injury, sp3 pain, redness, and discharge, ENT: Negative for injury, pain, and discharge, Neck: Negative for injury, pain, and swelling, Cardiovascular: Negative for chest pain, palpitations, and edema, Respiratory: Negative for shortness of breath, cough, wheezing, and pleuritic chest pain, Abdomen/GI: Negative for abdominal pain, nausea, vomiting, diarrhea, and constipation, Back: Negative for injury and pain, MS/Extremity: Negative for injury and deformity, Skin: Negative for injury, rash, and discoloration, Neuro: Negative for headache, weakness, numbness, tingling, and seizure, Psych: Negative for depression, anxiety, suicide ideation, homicidal ideation, and hallucinations, Allergy/Immunology: Negative for hives, rash, and allergies, Endocrine: Negative for neck swelling, polydipsia, polyuria, polyphagia, and marked weight changes, Hematologic/Lymphatic: Negative for swollen nodes, abnormal bleeding, and unusual bruising, 02:03 All other systems are negative, Exam: 02:03 Constitutional: This is a well developed, well nourished patient who is awake, alert, sp3 and in no acute distress. Head/Face: Normocephalic, atraumatic. Eyes: Pupils equal round and reactive to light, extra-ocular motions intact. Lids and lashes normal. Conjunctiva and sclera are non-icteric and not injected. Cornea within normal limits. Periorbital areas with no swelling, redness, or edema. Neck: Trachea midline, no thyromegaly or masses palpated, and no cervical lymphadenopathy. Supple, full range of motion without nuchal rigidity, or vertebral point tenderness. No Meningismus. Chest/axilla: Normal chest wall appearance and motion. Nontender with no deformity. No lesions are appreciated. Cardiovascular: Regular rate and rhythm with a normal S1 and S2. No gallops, murmurs, or rubs. Normal PMI, no JVD. No pulse deficits. Respiratory: Lungs have equal breath sounds bilaterally, clear to auscultation and percussion. No rales, rhonchi or wheezes noted. No increased work of breathing, no retractions or nasal flaring. Abdomen/GI: Soft, non-tender, with normal bowel sounds. No distension or tympany. No guarding or rebound. No evidence of tenderness throughout. Back: No spinal tenderness. No costovertebral tenderness. Full range of motion. Skin: Warm, dry with normal turgor. Normal color with no rashes, no lesions, and no evidence of cellulitis. MS/ Extremity: Pulses equal, no cyanosis. Neurovascular intact. Full, normal range of motion. Neuro: Awake and alert, GCS 15, oriented to person, place, time, and situation. Cranial nerves II-XII grossly intact. Motor strength 5/5 in all extremities. Sensory grossly intact. Cerebellar exam normal. Normal gait. Vital Signs: 01:45 BP 122 / 74; Pulse 82; Resp 16; Temp 97.7(O); Pulse Ox 100% on R/A; Weight 77.11 kg; kd3 Height 5 ft. 0 in. ; Pain 10/10; 03:04 BP 115 / 73; Pulse 94; Resp 16; Pulse Ox 100% on R/A; kd3 04:26 BP 112 / 66; Pulse 74; Resp 16; Pulse Ox 99% on R/A; kd3 04:35 BP 109 / 70; Pulse 75; Resp 16; Pulse Ox 97% on R/A; kd3 01:45 Body Mass Index 33.20 (77.11 kg, 152.4 cm) kd3 01:45 Pain Scale: Adult kd3 MDM: 01:46 Medical Screening Exam initiated sp3 02:04 Data reviewed: vital signs, nurses notes, lab test result(s). ED course: 29-year-old sp3 female with dysuria. Consider UTI versus other urethral irritation. I am not highly suspicious of , STI or any other critical process including sepsis or shock. Vital signs normal. UA and hCG pending. Patient demanding "strong pain medicine" and threatening to walk out the door. Will consider further pain management if UA positive otherwise Tylenol and ibuprofen is appropriate based on clinical judgment.. 02:34 ED course: Patient has calcium oxalate crystals in her urine and RBCs and WBCs. Will sp3 add on CT scan of the abdomen pelvis noncontrast looking for kidney stone as well as routine labs. Morphine and Zofran for symptomatic control. If workup negative we will safely discharge patient home on oral antibiotic.. 04:58 ED course: Workup negative. We will discharge patient on p.o. antibiotics and follow-up sp3 PCP.. 11/09 01:50 Order name: UA Rfx Curry Cult if indicated; Complete Time: 02:26 sp3 11/09 01:50 Order name: Test, Urine; Complete Time: 02:26 sp3 11/09 02:19 Order name: Urine Culture [facility] 11/09 02:28 Order name: CBC with Diff; Complete Time: 03:42 sp3 11/09 02:28 Order name: CMP; Complete Time: 03:42 sp3 11/09 02:28 Order name: Lipase; Complete Time: 03:42 sp3 11/09 02:28 Order name: CT Abd/Pelvis - Without Contrast 3 11/09 02:28 Order name: IV Saline Lock; Complete Time: 02:51 sp3 11/09 02:28 Order name: Labs collected and sent; Complete Time: 02:51 sp3 Administered Medications: 02:10 Drug: Ibuprofen PO 800 mg PO once Route: PO; ha1 02:35 Follow up: Response: No adverse reaction; Marked relief of symptoms; Pain is decreased ha1 02:56 Drug: Ondansetron IVP 4 mg IVP once; over 2 minutes Route: IVP; Site: left antecubital; ha1 03:30 Follow up: Response: No adverse reaction; Marked relief of symptoms ha1 02:58 Drug: morphine IVP or IV 4 mg IVP once over 4 mins Route: IVP; Infused Over: 4 mins; ha1 Site: left antecubital; 03:20 Follow up: Response: No adverse reaction; Marked relief of symptoms; Pain is decreased; ha1 RASS: Alert and Calm (0) 03:02 Drug: Ciprofloxacin IVPB 400 mg 200 ml IVPB once over 60 mins Volume: 200 ml; Route: ha1 IVPB; Infused Over: 60 mins; Site: left antecubital; 04:00 Follow up: Response: No adverse reaction; IV Status: Completed infusion ha1 Disposition Summary: 11/09/24 04:59 Discharge Ordered Notes: Location: Home sp3 Condition: Stable sp3 Diagnosis - UTI, flank pain sp3 Followup: sp3 - With: Private Physician - When: Upon discharge from the Emergency Department - Reason: Continuance of care Discharge Instructions: - Discharge Summary Sheet sp3 - Urinary Tract Infection, Adult sp3 Forms: - Medication Reconciliation Form sp3 - Antibiotic Education sp3 - Prescription Opioid Use sp3 - Patient Portal Instructions sp3 - Leadership Thank You Letter sp3 Prescriptions: - Tramadol 50 mg Oral Tablet - take 1 tablet ORAL route every 8 hours as needed; 12 tablet; Refills: 0, sp3 Product Selection Permitted - Bactrim DS 800-160 mg Oral Tablet - take 1 tablet ORAL route every 12 hours for 7 days; 14 tablet; Refills: 0, sp3 Product Selection Permitted Signatures: Dispatcher [employer] Shiloh Armenta MD MD sp3 Tania Robert RN RN 3 Judy Aguirre RN RN ha1 Corrections: (The following items were deleted from the chart) 02:03 02:03 29-year-old female with history of depression, asthma, anxiety, migraines sp3 presents with chief complaint dysuria for the last 2 days. She denies any fever, flank pain, abdominal pain, [employer] symptoms, or any other signs or symptoms on ROS at this time.. sp3
[2024-11-09 05:38] VITALS: TEMP 97.7
[2024-11-09 05:49] VITALS: BP 109/70; O2SAT 97
== END 2024-11-09 05:22 | disposition home or self-care (01) ==
LOC: ER 01:41
DX: N39.0 Urinary tract infection, site not specified (principal)
CPT/HCPCS: 36415; 74176; 80053; 81001; 81025; 83690; 85025; 87077; 87086; 87088; 87186; 96365; 96375; 99284; J0744; J2405

== ENCOUNTER 2024-11-09 10:19 | Emergency (ER) | payer SELFPAY ==
--- NOTE | 2024-11-09 11:06 | RAD REPORT ---
EXAM: CT brain without contrast HISTORY: TRAUMA COMPARISON: None TECHNIQUE: Multiple contiguous axial images were obtained and a CT of the brain without contrast. Sag ittal and coronal reformats were performed. One or more of the following dose reduction techniques were used: Automated exposure control, adjust ment of the mA and/or kV according to patient size, and/or iterative reconstruction. FINDINGS: No evidence of hydrocephalus, intracranial hemorrhage, or extra-axial fluid collection. The brain is normal in morphology. No evidence of midline shift or areas of brain edema. The calvarium is intact. Mild mucosal thickening left maxillary antrum. IMPRESSION: No evidence of acute intracranial abnormality.
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
[2024-11-09 11:36] VITALS: BP 115/68; TEMP 98; O2SAT 99
== END 2024-11-09 11:31 | disposition home or self-care (01) ==
LOC: ER 10:19
DX: S00.83XA Contusion of other part of head, initial encounter (principal)
CPT/HCPCS: 70450; 99283